=== PATIENT | female | born 1960 | race Caucasian/White ===

== ENCOUNTER 2023-01-18 13:47 | Outpatient (OUT) | payer OTHER, SELFPAY ==
--- NOTE | 2023-01-18 14:06 | CT_ITS ---
[address] [address] Patient Name: MALCOLM RECIO MRN: [id number] date: 1960 Sex: F Assigned Patient Location: LAB Current Patient Location: LAB Accession/Order Number: [id number] Exam Date: 01/18/2023 14:20 Report Date: 01/18/2023 15:49 At the request of: HAFSA REZA Procedure: CT angio abdomen pelvis EXAMINATION: CT angio abdomen pelvis HISTORY: Aortic Aneurysm , Dissection Of Abdominal Aorta COMPARISON: CT abdomen pelvis 06/06/2022 TECHNIQUE: Axial, Coronal, and Sagittal CT images without and with IV contrast. Multi-planar/3-D imaging to optimize visualization of vascular anatomy. Dose reduction techniques were achieved by using automated exposure control and/or adjustment of mA and/or kV according to patient size and/or use of iterative reconstruction technique. FINDINGS: AORTA/VASCULAR: Dissection of the abdominal aorta beginning immediately inferior to the renal arteries and extending into the right common iliac artery terminating prior to its bifurcation. False lumen is approximately 50% of the overall diameter of the aorta with an accessory right renal artery and the inferior mesenteric artery arising from the false lumen. CELIAC ARTERY: Normal celiac vessels. SMA: Normal mesenteric vessels. RENAL ARTERIES: Normal primary renal arteries. A secondary right renal artery arises from the false lumen of a patent aortic dissection. LUNG BASES: No visible pulmonary or pleural disease. LIVER: No enlargement, atrophy, abnormal density, or significant focal lesion. BILIARY: Cholecystectomy. PANCREAS: No lesion, fluid collection, ductal dilatation, or atrophy. SPLEEN: No enlargement or focal lesion. ADRENALS: No mass or enlargement. KIDNEYS: No mass, obstruction, or calcification. BOWEL/MESENTERY: No visible mass, obstruction, or bowel wall thickening. RETROPERITONEUM: No mass or adenopathy. LYMPH NODES: No adenopathy. URINARY BLADDER: No visible focal wall thickening, lesion, or calculus. PELVIC ORGANS: No visible mass. Pelvic organs appropriate for patient age. ABDOMINAL WALL: No mass or hernia. BONES: No bony lesion or fracture. OTHER: Negative. CT/CT angio abdomen pelvis IMPRESSION: 1. Stable infrarenal aortic dissection with widely patent true and false lumens as detailed above; no appreciable change. Electronically authenticated by: BURT FIGUEROA Date: 01/18/2023 15:49
[2023-01-18 14:09] LABS: Estimated GFR (African America >60 (>=60); Estimated GFR (Non-African Ame 58 (>=60)
== END 2023-01-18 13:48 | disposition home or self-care (01) ==
LOC: LAB 13:47
PROVIDERS: PCP Internal Medicine
DX: I71.02 Dissection of abdominal aorta (principal); J44.9 Chronic obstructive pulmonary disease, unspecified; R06.89 Other abnormalities of breathing
CPT/HCPCS: 36415; 74174; 82565; Q9967

== ENCOUNTER 2023-06-27 12:28 | Outpatient (OUT) | payer OTHER, SELFPAY ==
[2023-06-27 12:52] LABS: Basophils Absolute Auto 0.1 10^3/uL (0.0-0.1); Basophils Percent Auto 0.6 % (0.2-2.0); Eosinophils Absolute Auto 0.8 10^3/uL (0.0-0.7); Hematocrit 51.4 % (36.0-48.0); Hemoglobin 15.3 g/dL (12.0-16.0); Immature Granulocytes Pct Auto 0.9 % (0.0-0.5); Lymphocytes Absolute Auto 1.7 10^3/uL (1.2-3.8); Lymphocytes Percent Auto 15.5 % (20.5-60.0); Mean Corpuscular HGB Conc 29.8 g/dL (29.9-35.2); Mean Corpuscular Hemoglobin 27.2 pg (26.7-34.0); Mean Corpuscular Volume 91.3 fL (81.0-99.0); Mean Platelet Volume 9.2 fL (9.5-13.5); Monocytes Absolute Auto 0.7 10^3/uL (0.3-0.8); Monocytes Percent Auto 6.6 % (1.7-12.0); Neutrophils Absolute Auto 7.5 10^3/uL (1.4-6.5); Neutrophils Percent Auto 69.4 % (43.0-75.0); Platelet Count 197 10^3/uL (150-450); Red Blood Count 5.63 10^6/uL (4.20-5.40); Red Cell Distribution Width 14.6 % (11.0-15.0); White Blood Count 10.8 10^3/uL (4.0-11.0)
--- NOTE | 2023-06-27 13:00 | RT_ITS ---
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 Findings were considered accurate and reproducible, with exception of DLCO which did not meet ATS standards. No bronchodilator was administered as the patient complained of chest pain during the procedure and the post-bronchodilator component was aborted. Spirometry: -FEV1/FVC: Normal @ 86% -FEV1: Moderately-severe reduction @ 51% -FVC: Very severely reduced @ 45% Lung volumes by plethysmography: -RV: Reduced @ 79% -TLC: Mildly reduced @ 72% Diffusion capacity: -DLCO: Normal @ 92% when corrected for Hb 15.3g/dL Flow-volume loop: -Very severe restrictive pattern Comparison from 11/06/2017 was nearly identical to this current study: -FEV1 51%, FVC 45%, RV 76%. TLC 74%, DLCO 94% Impressions: -Very severe restriction on spirometry, confirmed with mild restriction based on decreased TLC. Normal diffusion capacity. This pattern is consistent with restriction secondary to morbid obesity (stated BMI is 54.7). Clinical correlation required. Electronically Signed On 07-05-2023 7:56:13 EST by Manjinder Altman
[2023-06-27 13:44] LABS: Base Excess ABG 11.3 mmol/L (-2.0-2.0); HCO3 ABG 37.3 mmol/L (22.0-26.0); PO2 ABG 69.5 mmHg (80.0-100.0); pH ABG 7.325 (7.350-7.450)
[2023-06-27 13:45] LABS: Oxygen Saturation ABG 93.7 %
[2023-06-27 13:46] LABS: ABG PCO2 71.6 mmHg (35.0-45.0); Allen Test POSITIVE (POSITIVE); Liters per Minute 2; O2 Mode NC; Puncture Site LR
[2023-06-27] MEDS: ALBUTEROL SULFATE 2.5 MG/3 ML VIAL NEB IH (14:49)
[2023-07-03 01:06] LABS: Immunoglobulin E, Total 573 IU/mL (6-495)
== END 2023-06-27 12:29 | disposition home or self-care (01) ==
LOC: CARD 12:30
PROVIDERS: PCP Internal Medicine; Visit Provider Internal Medicine
DX: J96.11 Chronic respiratory failure with hypoxia (principal); J82.83 Eosinophilic asthma
CPT/HCPCS: 36415; 36600; 82785; 82805; 85025; 94060; 94726; 94729

== ENCOUNTER 2023-06-27 14:25 | Observation (INO) | payer OTHER, SELFPAY ==
[2023-06-27] VITALS (16 sets, daily range): BP systolic 106–147; BP diastolic 67–100; PULSE 65–106; RESP 15–23; TEMP 36.4–36.7; O2SAT 93–98; BMI 60.3; BMI 62.3
--- NOTE | 2023-06-27 14:37 | XR_ITS ---
The [address] [address] Patient Name: MALCOLM RECIO MRN: [id number] date: 1960 Sex: F Assigned Patient Location: ER Current Patient Location: ED.MAIN Accession/Order Number: [id number] Exam Date: 06/27/2023 14:47 Report Date: 06/27/2023 15:03 At the request of: JACOB MARTIN Procedure: XR chest 1V EXAM: XR chest 1V HISTORY: chest pain COMPARISON: 06/06/2022 TECHNIQUE: AP portable FINDINGS: LUNGS: Low lung volumes. No focal infiltrates VASCULATURE: No increased pulmonary vasculature. PLEURA: No pneumothorax, effusion, or pleural thickening. CARDIAC: No cardiomegaly or cardiac silhouette abnormality. MEDIASTINUM: No visible mass or adenopathy. BONES: No fracture or visible bone lesion. OTHER: Negative. XR/XR chest 1V IMPRESSION: Low volume exam, clear lungs Electronically authenticated by: CHRISTEN BAKER Date: 06/27/2023 15:03
--- NOTE | 2023-06-27 14:37 | ECG_ITS ---
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
[2023-06-27] MEDS: ONDANSETRON PF 4 MG/2 ML VIAL IV (14:58)
[2023-06-27] MEDS: MORPHINE SULFATE 4 MG/ML VIAL IV (14:58)
[2023-06-27] MEDS: ASPIRIN 81 MG TAB.CHEW 324 MG PO (14:58)
--- NOTE | 2023-06-27 15:22 | ED.CHESTPAI1 ---
HPI - Chest Pain General Chief Complaint: Chest Pain Stated Complaint: CHEST PAIN Time Seen by Provider: 06/27/23 14:32 Source: patient Mode of arrival: Wheelchair History of Present Illness HPI narrative: Patient was finishing up her pulmonary function tests when she developed intense pain across the anterior chest, rated 6/10. She had increased work of breathing to catch her breath, the RT reported. She denied any prior cardiac history - said she had catheterization but no blockage or stents. Patient's pain is now 4/10. No recent injury to the chest. No cough, fever or chills at home. She has COPD, DM, HTN and high cholesterol. She sees Dr Altman. Related Data Home Medications Medication Instructions Recorded Confirmed baclofen 10 mg tablet 10 mg PO Q8H PRN muscle spasm 06/27/23 06/27/23 budesonide 160 mcg-glycopyr 9 2 inh inhalation BID 06/27/23 06/27/23 mcg-formot 4.8 mcg/actuation HFA inhaler (Breztri Aerosphere) buspirone 30 mg tablet 30 mg PO BID 06/27/23 06/27/23 cariprazine 3 mg capsule (Vraylar) 3 mg PO QDAY 06/27/23 06/27/23 dapagliflozin propanediol 10 mg 10 mg PO QAM 06/27/23 06/27/23 tablet (Farxiga) diclofenac sodium 75 mg 75 mg PO Q12H 06/27/23 06/27/23 tablet,delayed release duloxetine 60 mg capsule,delayed 120 mg PO BEDTIME 06/27/23 06/27/23 release (Cymbalta) furosemide 40 mg tablet 40 mg PO BID 06/27/23 06/27/23 gabapentin 600 mg tablet 1,200 mg PO QPM 06/27/23 06/27/23 gabapentin 600 mg tablet 600 mg PO QAM 06/27/23 06/27/23 levothyroxine 112 mcg tablet 112 mcg PO DAILY 06/27/23 06/27/23 metoprolol tartrate 25 mg tablet 25 mg PO DAILY 06/27/23 06/27/23 omeprazole 20 mg-sodium 1 cap PO DAILY PRN acid reflux 06/27/23 06/27/23 bicarbonate 1.1 gram capsule (Zegerid OTC) rosuvastatin 5 mg tablet 5 mg PO .qhs 06/27/23 06/27/23 trazodone 100 mg tablet 200 mg PO BEDTIME 06/27/23 06/27/23 Allergies Allergy/AdvReac Type Severity Reaction Status Date / Time Penicillins AdvReac Intermediate Verified 06/27/23 14:38 Sulfa (Sulfonamide AdvReac Intermediate Verified 06/27/23 14:38 Antibiotics) boniva AdvReac Intermediate Uncoded 06/27/23 14:38 Exam Narrative Exam Narrative: Nurses notes and vital signs reviewed and patient is not hypoxic. afebrile General: Well-appearing and in no apparent distress. Skin: Warm, dry, no pallor noted. No rash. Eye: Pupils are equal, round and EOMI. No scleral icterus. Ears, Nose, Mouth, and Throat: Oral mucosa is moist Cardiovascular: Regular Rate and Rhythm without murmur, gallop or rub. Respiratory: No accessory muscle use or respiratory distress. Lungs are clear to auscultation, no wheezing, rales or rhonchi Chest Wall: no tenderness, crepitus or subcutaneous emphysema Back: No midline thoracic or lumbar vertebral tenderness. No CVA tenderness Musculoskeletal: normal ROM, no calf or popliteal tenderness, no lower extremity edema/swelling GI: Abdomen is soft, non-distended. Normal bowel sounds. No tenderness to palpation. No rebound, guarding, or rigidity noted. Neurological: A&O x4. No cranial nerve dysfunction observed. No truncal ataxia. Moves all extremities. Sensation intact. Psychiatric: Cooperative and interactive. Normal mood and affect. Constitutional Vital Signs, click to edit/add: Last Vital Signs Temp 98.1 F 06/27/23 14:38 Pulse 106 H 06/27/23 14:38 Resp 18 06/27/23 14:38 BP 131/100 H 06/27/23 17:00 Pulse Ox 96 06/27/23 15:04 O2 Del Method Nasal Cannula 06/27/23 15:04 O2 Flow Rate 2 06/27/23 15:04 Course Vital Signs Vital signs: Vital Signs Temperature 98.1 F 06/27/23 14:38 Pulse Rate 106 H 06/27/23 14:38 Respiratory Rate 18 06/27/23 14:38 Blood Pressure 106/82 06/27/23 14:38 Pulse Oximetry 95 06/27/23 14:38 Oxygen Delivery Method Room Air 06/27/23 14:38 Temperature 98.1 F 06/27/23 14:38 Pulse Rate 106 H 06/27/23 14:38 Respiratory Rate 18 06/27/23 14:38 Blood Pressure 131/100 H 06/27/23 17:00 Pulse Oximetry 96 06/27/23 15:04 Oxygen Delivery Method Nasal Cannula 06/27/23 15:04 Oxygen Delivery Flow Rate 2 06/27/23 15:04 MDM - Chest Pain MDM Narrative Medical decision making narrative: Patient was placed on cardiac rehab nurse and EKG obtained. Blood drawn and sent for evaluation. CXR obtained. Troponin negative x2. Unremarkable CBC and CMP. Negative CXR. HEART score is Call placed to the transmission and protection engineer physician to discuss admission. Dr Buck agreed to admit the patient to SDU, observation. Patient will be admitted to SDU for further evaluation of her chest pain Differential Diagnosis Differential diagnosis: Likely pneumothorax, unstable angina pectoris, atypical chest pain, st elevation myocardial infarction, costochondritis and chest pain Lab Data Attestation: I reviewed the patient's lab results. Labs: Lab Results 06/27/23 06/27/23 Range/Units 14:42 16:35 WBC 11.2 H (4.0-11.0) 10^3/uL RBC 5.53 H (4.20-5.40) 10^6/uL Hgb 15.1 (12.0-16.0) g/dL Hct 50.9 H (36.0-48.0) % MCV 92.0 (81.0-99.0) fL MCH 27.3 (26.7-34.0) pg MCHC 29.7 L (29.9-35.2) g/dL RDW 14.6 (11.0-15.0) % Plt Count 200 (150-450) 10^3/uL MPV 9.4 L (9.5-13.5) fL Neut % (Auto) 67.5 (43.0-75.0) % Lymph % (Auto) 18.4 L (20.5-60.0) % [place] % (Auto) 6.1 (1.7-12.0) % Eos % (Auto) 6.8 (0.9-7.0) % Baso % (Auto) 0.6 (0.2-2.0) % Neut # (Auto) 7.6 H (1.4-6.5) 10^3/uL Lymph # (Auto) 2.1 (1.2-3.8) 10^3/uL [place] # (Auto) 0.7 (0.3-0.8) 10^3/uL Eos # (Auto) 0.8 H (0.0-0.7) 10^3/uL Baso # (Auto) 0.1 (0.0-0.1) 10^3/uL Abs Immat Gran (auto) 0.07 H (0.00-0.03) 10^3/uL Imm/Tot Granulo (auto) 0.6 H (0.0-0.5) % Sodium 140 (136-145) mmol/L Potassium 3.7 (3.5-5.1) mmol/L Chloride 102 (98-107) mmol/L Carbon Dioxide 36.1 H (21.0-32.0) mmol/L Anion Gap 5.6 BUN 12.0 (7.0-18.0) mg/dL Creatinine 1.01 (0.55-1.02) mg/dL Est GFR ( Amer) >60 (>=60) Est GFR (Non-Af Amer) 56 L (>=60) BUN/Creatinine Ratio 11.9 Glucose 111 H (74-106) mg/dL Calcium 8.8 (8.5-10.1) mg/dL Troponin I High Sens 5.0 4.7 (4.0-51.3) pg/mL NT-Pro-B Natriuret Pep 63.0 (<=900.0) pg/mL Imaging Data Chest x-ray: Radiologist's impression: ITS Impressions Chest X-Ray 06/27/23 14:37 IMPRESSION: Low volume exam, clear lungs Electronically authenticated by: CHRISTEN BAKER Date: 06/27/2023 15:03 ECG Data Attestation: I personally reviewed and interpreted this ECG as follows: Interpretation: EKG interpretation: Emergency Department physician interpretation. Normal sinus rhythm at 64bpm. Normal axis, normal intervals and no ST segment elevation or depression. Heart Score History: Moderately Suspicious ECG: NS Repolarization Age: >45-<65 years Risk Factors: >3 Risk Factors/ HX of CAD:2 Troponin: <Normal Limit Total Heart Score Recommendations & Risks:: 5 Discharge Plan Discharge Chief Complaint: Chest Pain Clinical Impression: Chest pain Patient Disposition: Admitted as Observation Time of Disposition Decision: 17:39 Prescriptions / Home Meds: No Action baclofen 10 mg tablet 10 mg PO Q12H hydrocodone-acetaminophen 5-325 mg tablet 1 tab PO Q12H PRN (Reason: pain) lamotrigine 200 mg tablet 200 mg PO BEDTIME lamotrigine 25 mg tablet 25 mg PO BEDTIME trazodone 100 mg tablet 200 mg PO BEDTIME omeprazole 20 mg capsule,delayed release(DR/EC) 20 mg PO DAILY PRN (Reason: acid reflux) buspirone 30 mg tablet 30 mg PO BID furosemide 40 mg tablet 40 mg PO BID Tradjenta 5 mg tablet 5 mg PO QAM Vraylar 4.5 mg capsule 4.5 mg PO BEDTIME duloxetine [Cymbalta] 60 mg capsule,delayed release(DR/EC) 120 mg PO BEDTIME metoprolol tartrate 25 mg tablet 25 mg PO DAILY levothyroxine 112 mcg tablet 112 mcg PO DAILY Farxiga 10 mg tablet 10 mg PO QAM Januvia 100 mg tablet 100 mg PO DAILY hydroxyzine pamoate 50 mg capsule 50 mg PO BID PRN (Reason: anxiety) omeprazole-sodium bicarbonate [Zegerid OTC] 20-1.1 mg-gram capsule 1 cap PO DAILY PRN (Reason: acid reflux) gabapentin 600 mg tablet 600 mg PO .COMPLEX Rx Instructions: 600 mg orally 3 times daily, 1 in morning, 2 at night; diclofenac sodium 75 mg tablet,delayed release (DR/EC) 75 mg PO Q12H albuterol sulfate 90 mcg/actuation HFA aerosol inhaler 2 puff INHALATION Q4H PRN (Reason: shortness of breath or wheezing) Referrals: Manjinder Altman DO [Primary Care Provider] - 1 week
[2023-06-27 15:35] LABS: Basophils Absolute Auto 0.1 10^3/uL (0.0-0.1); Basophils Percent Auto 0.6 % (0.2-2.0); Eosinophils Absolute Auto 0.8 10^3/uL (0.0-0.7); Eosinophils Percent Auto 6.8 % (0.9-7.0); Hematocrit 50.9 % (36.0-48.0); Hemoglobin 15.1 g/dL (12.0-16.0); Immature Granulocytes Abs Auto 0.07 10^3/uL (0.00-0.03); Immature Granulocytes Pct Auto 0.6 % (0.0-0.5); Lymphocytes Absolute Auto 2.1 10^3/uL (1.2-3.8); Lymphocytes Percent Auto 18.4 % (20.5-60.0); Mean Corpuscular HGB Conc 29.7 g/dL (29.9-35.2); Mean Corpuscular Hemoglobin 27.3 pg (26.7-34.0); Mean Platelet Volume 9.4 fL (9.5-13.5); Monocytes Absolute Auto 0.7 10^3/uL (0.3-0.8); Monocytes Percent Auto 6.1 % (1.7-12.0); Neutrophils Absolute Auto 7.6 10^3/uL (1.4-6.5); Neutrophils Percent Auto 67.5 % (43.0-75.0); Platelet Count 200 10^3/uL (150-450); Red Blood Count 5.53 10^6/uL (4.20-5.40); Red Cell Distribution Width 14.6 % (11.0-15.0); White Blood Count 11.2 10^3/uL (4.0-11.0)
[2023-06-27 16:04] LABS: Anion Gap 5.6; BUN Creatinine Ratio 11.9; Calcium 8.8 mg/dL (8.5-10.1); Carbon Dioxide 36.1 mmol/L (21.0-32.0); Chloride 102 mmol/L (98-107); Estimated GFR (African America >60 (>=60); Estimated GFR (Non-African Ame 56 (>=60); Glucose 111 mg/dL (74-106); Potassium 3.7 mmol/L (3.5-5.1); Sodium 140 mmol/L (136-145)
[2023-06-27 17:08] LABS: Troponin I High Sensitivity 4.7 pg/mL (4.0-51.3)
--- NOTE | 2023-06-27 18:30 | ECG_ITS ---
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
--- NOTE | 2023-06-27 20:21 | RESP.RT ---
decreased to 2L nasal cannula
[2023-06-27] MEDS: ENOXAPARIN SODIUM 40 MG/0.4 ML SYRINGE SUBQ (21:09)
[2023-06-27] MEDS: FAMOTIDINE/PF 20 MG/2 ML VIAL IV (21:09)
[2023-06-28] VITALS (15 sets, daily range): BP systolic 103–133; BP diastolic 56–85; PULSE 65–105; RESP 14–18; TEMP 36.9–37.5; O2SAT 90–96
[2023-06-28] MEDS: ACETAMINOPHEN 325 MG TABLET 650 MG PO ×3 (02:03→16:22)
[2023-06-28 04:36] LABS: Basophils Absolute Auto 0.1 10^3/uL (0.0-0.1); Basophils Percent Auto 0.6 % (0.2-2.0); Eosinophils Absolute Auto 0.6 10^3/uL (0.0-0.7); Eosinophils Percent Auto 5.4 % (0.9-7.0); Hematocrit 49.4 % (36.0-48.0); Hemoglobin 14.6 g/dL (12.0-16.0); Immature Granulocytes Abs Auto 0.09 10^3/uL (0.00-0.03); Immature Granulocytes Pct Auto 0.8 % (0.0-0.5); Lymphocytes Absolute Auto 1.4 10^3/uL (1.2-3.8); Lymphocytes Percent Auto 11.9 % (20.5-60.0); Mean Corpuscular HGB Conc 29.6 g/dL (29.9-35.2); Mean Corpuscular Hemoglobin 27.7 pg (26.7-34.0); Mean Corpuscular Volume 93.7 fL (81.0-99.0); Monocytes Absolute Auto 0.8 10^3/uL (0.3-0.8); Monocytes Percent Auto 6.5 % (1.7-12.0); Neutrophils Absolute Auto 8.9 10^3/uL (1.4-6.5); Neutrophils Percent Auto 74.8 % (43.0-75.0); Platelet Count 183 10^3/uL (150-450); Red Blood Count 5.27 10^6/uL (4.20-5.40); Red Cell Distribution Width 14.8 % (11.0-15.0); White Blood Count 11.9 10^3/uL (4.0-11.0)
[2023-06-28 05:02] LABS: INR 0.96; Prothrombin Time 10.2 sec (9.0-11.6)
[2023-06-28 05:08] LABS: Alanine Aminotransferase 10 U/L (14-59); Albumin Globulin Ratio 0.8; Albumin Level 3.1 g/dL (3.4-5.0); Alkaline Phosphatase 97 U/L (46-116); Anion Gap 2.8; Aspartate Amino Transferase 15 U/L (15-37); BUN Creatinine Ratio 12.5; Bilirubin Total 0.5 mg/dL (0.2-1.0); Calcium 8.9 mg/dL (8.5-10.1); Carbon Dioxide 36.2 mmol/L (21.0-32.0); Chloride 101 mmol/L (98-107); Estimated GFR (African America >60 (>=60); Estimated GFR (Non-African Ame >60 (>=60); Glucose 179 mg/dL (74-106); Sodium 136 mmol/L (136-145); Total Protein 7.1 g/dL (6.4-8.2); Troponin I High Sensitivity <4.0 pg/mL (4.0-51.3)
[2023-06-28] MEDS: FAMOTIDINE/PF 20 MG/2 ML VIAL IV (08:34)
[2023-06-28] MEDS: ASPIRIN 81 MG TAB.CHEW PO (08:34)
--- NOTE | 2023-06-28 08:51 | CA_ITS ---
Patient Name: MALCOLM RECIO MR#: [id number] : 1960 Exam Date: 06/28/2023 Ordering Doctor: LUCA KELLER ECHOCARDIOGRAM REPORT PROCEDURE: CA ECHO DOPPLER COMPLETE INDICATIONS: chest pain, diabetes, hypertension COMPARISON: None. DESCRIPTION: COMPLETE ECHOCARDIOGRAM Real-time transthoracic echocardiography with 2D, M-mode, spectral and color flow Doppler performed. QUALITY: Technical quality was adequate. 49 , 308#, BSA 2.22 m2 LEFT VENTRICLE: Normal chamber size. Normal left ventricular wall thickness. Normal systolic function. LV EF: Normal left ventricular ejection fraction, (55-60%). DIASTOLIC: Diastolic function is indeterminate. ATRIAL SEPTUM: LEFT ATRIUM: Normal chamber size. RIGHT ATRIUM: Normal chamber size. RIGHT VENTRICLE: Normal chamber size. Normal right ventricular systolic function. TRICUSPID VALVE: Normal mobility and thickness. No stenosis with trivial regurgitation. Doppler studies reveal moderately (45-60) elevated right sided pressures. RVSP 51 mmHg MITRAL VALVE: Normal mobility and thickness. No evidence of mitral valve stenosis. There is no mitral annular calcification. No mitral regurgitation. AORTIC VALVE: Normal trileaflet appearance. No visible sclerosis. Normal leaflet mobility. No evidence of aortic valve stenosis. No aortic regurgitation. AORTIC ROOT: Normal diameter and appearance. PULMONIC VALVE: Not well visualized. No stenosis. No regurgitation. PERICARDIUM: No evidence of pericardial effusion. IVC: IVC is normal in size but does not fully collapse. PLEURA: CONCLUSION: 1. Normal ventricular systolic function. LVEF is 55 to 60%. 2. No significant valvular dysfunction. 3. Moderately elevated right-sided pressures. RVSP is 51 mmHg. 4. No pericardial effusion. Adult Echocardiography Procedure Report Left Ventricle LVEDD (3.7 - 5.6 cm): 4.94 cm LVESD (2.2 - 4.0 cm): 3.61 cm LVIVS thickness (0.6 - 1.2 cm): 8.09 mm LVPW thickness (0.5 - 1.0 cm): 9.83 mm LVOT Max Gradient: 6 mm[Hg] Peak Velocity (LVOT): 123.00 cm/s Mean Velocity (LVOT): 78.30 cm/s LVOT Diameter 2.10 cm Left Ventricular Ejection Fraction: 55-60 % Left Atrium LA Volume Index (2D A2C): 69088 mm3 Left Atrium Systolic Dimension: 3.50 cm Mitral Valve MV E to A Ratio: 0.90 Mitral Valve A-Wave Peak Velocity: 99.70 cm/s Mitral Valve E-Wave Peak Velocity: 85.40 cm/s Cardiovascular Orifice Area: 3.55 cm2 Right Ventricle Aorta AO Root Diam: 3.40 cm Aortic Valve AoV Area (Peak Jaspal): 2.45 cm2 AoV Area (VTI): 2.72 cm2 Peak Velocity(Antegrade Flow): 174.00 cm/s Peak Gradient(Antegrade Flow): 12 mm[Hg] Mean Velocity(Antegrade Flow): 125.00 cm/s Mean Gradient(Antegrade Flow): 7 mm[Hg] Velocity Time Integral: 34.70 cm Tricuspid Valve Peak Velocity (Regurgitant Flow): 328.00 cm/s Peak Velocity: 44.90 cm/s Pulmonic Valve Peak Velocity: 134.00 cm/s, 138.00 cm/s Peak Gradient: 7 mm[Hg] Right Atrium Dictated by: Darrel Nunez M.D. on 06/28/2023 at 17:20 Approved by: Darrel Nunez M.D. on 06/28/2023 at 17:23
[2023-06-28 09:17] LABS: Chol HDL Ratio 2.7; Cholesterol 111 mg/dL (<=200); HDL Cholesterol 41 mg/dL (40-60); Triglycerides 157 mg/dL (<=150); VLDL CHOLESTEROL 31.4 mg/dL
[2023-06-28] MEDS: METOPROLOL TARTRATE 25 MG TABLET PO (10:07)
[2023-06-28] MEDS: CANAGLIFLOZIN 100 MG TABLET 300 MG PO (10:08)
[2023-06-28] MEDS: BUSPIRONE HCL 15 MG TABLET 30 MG PO (10:08)
[2023-06-28] MEDS: DICLOFENAC SODIUM 25 MG TABLET.DR 75 MG PO (10:08)
[2023-06-28] MEDS: FUROSEMIDE 40 MG TABLET PO (10:08)
[2023-06-28] MEDS: ONDANSETRON PF 4 MG/2 ML VIAL IV (10:24)
[2023-06-28 11:17] LABS: Estimated Average Glucose 157 mg/dL; Glycohemoglobin A1C 7.1 % (4.5-6.2)
[2023-06-28 11:49] LABS: D Dimer 0.84 mg/L FEU (<=0.59)
[2023-06-28 12:03] LABS: Glucometer 153 mg/dL (74-106)
--- NOTE | 2023-06-28 13:24 | CM.NOTE ---
Rounds made with Dr. Buck, discussed plan of care with pt. Pt will have echo done today and cardiology consult. PT and OT also will evaluate pt today for discharge planning.
--- NOTE | 2023-06-28 13:27 | CT_ITS ---
The [address] [address] Patient Name: MALCOLM ERCIO MRN: [id number] date: 1960 Sex: F Assigned Patient Location: ICU Current Patient Location: ICU Accession/Order Number: [id number] Exam Date: 06/28/2023 14:35 Report Date: 06/28/2023 15:44 At the request of: LUCA KELLER Procedure: CT angio abdomen pelvis EXAM: CT angio chest, CT angio abdomen pelvis HISTORY: Pleuritic CP, r/o PE (Hx of DVT) COMPARISON: CTA from 01/18/2023. TECHNIQUE: CT angio chest, CT angio abdomen pelvis FINDINGS: VASCULATURE: CORONARY ARTERIES: There are no atherosclerotic calcifications of the [place] coronary arteries. PULMONARY ARTERIES: No central pulmonary embolus. Normal size. ASCENDING THORACIC AORTA: No significant abnormality. AORTIC ARCH: No significant abnormality. Four-vessel aortic arch. ARCH VESSELS: No significant abnormality. DESCENDING THORACIC AORTA: No significant abnormality. ABDOMINAL AORTA: Demonstration of the known dissection of the infrarenal abdominal aorta with extension into the right common iliac artery. Dilatation of the infrarenal abdominal Abdominal aorta up to 2.8 cm (image 96 of series 4). CELIAC AXIS: No significant abnormality. SMA: No significant abnormality. RIGHT RENAL: No significant abnormality. LEFT RENAL: No significant abnormality. ABBEY: Arises from the false lumen but is opacified. RIGHT ILIAC / PROXIMAL FEMORAL ARTERIES: The dissection flap extends into the right common iliac artery but terminates prior to its bifurcation. No significant abnormality of the right external and internal iliac arteries. Potential small dissection flap of the proximal right superficial femoral artery, though this may alternatively be artifactual (images 83 and 84 of series 4). LEFT ILIAC / PROXIMAL FEMORAL ARTERIES: No significant abnormality. Perfused by the true lumen. LOWER NECK: Normal. CHEST: LUNGS / AIRWAYS / PLEURA: Normal. HEART / OTHER VESSELS: No significant abnormality. MEDIASTINUM / ESOPHAGUS: Normal. LYMPH NODES: None enlarged. CHEST WALL: No significant abnormality. ABDOMEN and PELVIS: LIVER: Suspected hepatic steatosis, though contrast timing limits evaluation. BILIARY TRACT: Normal. GALLBLADDER: Absent. PANCREAS: Normal. SPLEEN: Normal. ADRENALS: Normal. KIDNEYS: Normal. LYMPH NODES: None enlarged. STOMACH / SMALL BOWEL: Fecalization of the distal small bowel. COLON / APPENDIX: No abnormality. The appendix is normal. PERITONEUM / MESENTERY: Normal. RETROPERITONEUM: Normal. OTHER VESSELS: No significant abnormality. URINARY BLADDER: Normal. REPRODUCTIVE ORGANS: No abnormality. BODY WALL: No significant abnormality. Changes from soft tissue injection in the anterior left lower abdominal wall. MUSCULOSKELETAL: No acute abnormality. Degenerative disc height loss at L5-S1 CT/CT angio abdomen pelvis IMPRESSION: 1. No new angiographic abnormality of the chest, abdomen, or pelvis. Stable dissection of the infrarenal abdominal aorta that extends into the right common iliac artery, with resultant aneurysmal dilatation, similar to the prior exam. The true and false lumens are patent. Additional angiographic findings as above. 2. Other findings as above. Electronically authenticated by: TYLER PUGH Date: 06/28/2023 15:44
--- NOTE | 2023-06-28 13:27 | CT_ITS ---
The [address] [address] Patient Name: MALCOLM RECIO MRN: [id number] date: 1960 Sex: F Assigned Patient Location: ICU Current Patient Location: ICU Accession/Order Number: [id number] Exam Date: 06/28/2023 14:35 Report Date: 06/28/2023 15:44 At the request of: LUCA KELLER Procedure: CT angio chest EXAM: CT angio chest, CT angio abdomen pelvis HISTORY: Pleuritic CP, r/o PE (Hx of DVT) COMPARISON: CTA from 01/18/2023. TECHNIQUE: CT angio chest, CT angio abdomen pelvis FINDINGS: VASCULATURE: CORONARY ARTERIES: There are no atherosclerotic calcifications of the [place] coronary arteries. PULMONARY ARTERIES: No central pulmonary embolus. Normal size. ASCENDING THORACIC AORTA: No significant abnormality. AORTIC ARCH: No significant abnormality. Four-vessel aortic arch. ARCH VESSELS: No significant abnormality. DESCENDING THORACIC AORTA: No significant abnormality. ABDOMINAL AORTA: Demonstration of the known dissection of the infrarenal abdominal aorta with extension into the right common iliac artery. Dilatation of the infrarenal abdominal Abdominal aorta up to 2.8 cm (image 96 of series 4). CELIAC AXIS: No significant abnormality. SMA: No significant abnormality. RIGHT RENAL: No significant abnormality. LEFT RENAL: No significant abnormality. ABBEY: Arises from the false lumen but is opacified. RIGHT ILIAC / PROXIMAL FEMORAL ARTERIES: The dissection flap extends into the right common iliac artery but terminates prior to its bifurcation. No significant abnormality of the right external and internal iliac arteries. Potential small dissection flap of the proximal right superficial femoral artery, though this may alternatively be artifactual (images 83 and 84 of series 4). LEFT ILIAC / PROXIMAL FEMORAL ARTERIES: No significant abnormality. Perfused by the true lumen. LOWER NECK: Normal. CHEST: LUNGS / AIRWAYS / PLEURA: Normal. HEART / OTHER VESSELS: No significant abnormality. MEDIASTINUM / ESOPHAGUS: Normal. LYMPH NODES: None enlarged. CHEST WALL: No significant abnormality. ABDOMEN and PELVIS: LIVER: Suspected hepatic steatosis, though contrast timing limits evaluation. BILIARY TRACT: Normal. GALLBLADDER: Absent. PANCREAS: Normal. SPLEEN: Normal. ADRENALS: Normal. KIDNEYS: Normal. LYMPH NODES: None enlarged. STOMACH / SMALL BOWEL: Fecalization of the distal small bowel. COLON / APPENDIX: No abnormality. The appendix is normal. PERITONEUM / MESENTERY: Normal. RETROPERITONEUM: Normal. OTHER VESSELS: No significant abnormality. URINARY BLADDER: Normal. REPRODUCTIVE ORGANS: No abnormality. BODY WALL: No significant abnormality. Changes from soft tissue injection in the anterior left lower abdominal wall. MUSCULOSKELETAL: No acute abnormality. Degenerative disc height loss at L5-S1 CT/CT angio chest IMPRESSION: 1. No new angiographic abnormality of the chest, abdomen, or pelvis. Stable dissection of the infrarenal abdominal aorta that extends into the right common iliac artery, with resultant aneurysmal dilatation, similar to the prior exam. The true and false lumens are patent. Additional angiographic findings as above. 2. Other findings as above. Electronically authenticated by: TYLER PUGH Date: 06/28/2023 15:44
--- NOTE | 2023-06-28 13:56 | P.CN_ITS ---
<Statement entered by KI LAW - 06/30/23 16:40> This documentation has been reviewed and approved. Consult Note: HPI Data of Consult Consult date: 06/28/23 Requesting Physician: Stephenie Easton NP Primary Care Provider: Manjinder Altman DO Consult Narrative Reason for consult: Chest pain Narrative: Pleasant 63 yo female currently in ICU for chest pain. Pt reports that she was finishing up her pulmonary function tests when she developed intense pain across the anterior chest, rated 6/10. She had increased work of breathing to catch her breath, the RT reported. She denied any prior cardiac history - Cath 2010 with normal CORS. Patient's pain is now 4/10. No recent injury to the chest. No cough, fever or chills at home. Known PMH for: COPD on O2 at home, DM, HTN and high cholesterol Currently pt denied any chest pain since admit to ICU. Currently she is up sitting up in chair and eating lunch without distress. Remains on 2-3 L of O2 which is her typical at home. No concerning arrythmias on tele review. Pt admits that she has had recurrent angina for many years and usually resolves with taking a ASA. cc:: CC: Stephenie Easton NP Review of Systems ROS0 Status of ROS 10 or more systems reviewed and unremark able except as noted in history and below Constitutional Denies: fever or chills PFSH PFSH Social History Gender Identity: female Meds Home Medications and Allergies Home Medications Medication Instructions Recorded Confirmed Type baclofen 10 mg tablet 10 mg PO Q8H PRN muscle spasm 06/27/23 06/27/23 History budesonide 160 mcg-glycopyr 9 2 inh inhalation BID 06/27/23 06/27/23 History mcg-formot 4.8 mcg/actuation HFA inhaler (Breztri Aerosphere) buspirone 30 mg tablet 30 mg PO BID 06/27/23 06/27/23 History cariprazine 3 mg capsule (Vraylar) 3 mg PO QDAY 06/27/23 06/27/23 History dapagliflozin propanediol 10 mg 10 mg PO QAM 06/27/23 06/27/23 History tablet (Farxiga) diclofenac sodium 75 mg 75 mg PO Q12H 06/27/23 06/27/23 History tablet,delayed release duloxetine 60 mg capsule,delayed 120 mg PO BEDTIME 06/27/23 06/27/23 History release (Cymbalta) furosemide 40 mg tablet 40 mg PO BID 06/27/23 06/27/23 History gabapentin 600 mg tablet 1,200 mg PO QPM 06/27/23 06/27/23 History gabapentin 600 mg tablet 600 mg PO QAM 06/27/23 06/27/23 History levothyroxine 112 mcg tablet 112 mcg PO DAILY 06/27/23 06/27/23 History omeprazole 20 mg-sodium 1 cap PO DAILY PRN acid reflux 06/27/23 06/27/23 History bicarbonate 1.1 gram capsule (Zegerid OTC) rosuvastatin 5 mg tablet 5 mg PO .qhs 06/27/23 06/27/23 History trazodone 100 mg tablet 200 mg PO BEDTIME 06/27/23 06/27/23 History metoprolol tartrate 25 mg tablet 25 mg PO BID 06/28/23 06/28/23 History Allergies Allergy/AdvReac Type Severity Reaction Status Date / Time Penicillins AdvReac Intermediate Verified 06/27/23 14:38 Sulfa (Sulfonamide AdvReac Intermediate Verified 06/27/23 14:38 Antibiotics) boniva AdvReac Intermediate Uncoded 06/27/23 14:38 Exam Constitutional Vital Signs, click to edit/add: Last Vital Signs Temp 98.5 F 06/28/23 12:48 Pulse 70 06/28/23 12:48 Resp 18 06/28/23 12:48 BP 103/56 06/28/23 12:48 Pulse Ox 94 L 06/28/23 12:48 O2 Del Method Nasal Cannula 06/28/23 12:48 O2 Flow Rate 2 06/28/23 12:48 Common normals: no apparent distress and oriented x3 General appearance: cooperative, comfortable and well kempt Nutritional appearance: obese Respiratory Common normals: normal respiratory effort, no use of accessory muscles and clear to auscultation bilaterally Auscultation: clear to auscultation bilaterally Cardio Common normals: no JVD, regular rate and regular rhythm Heart sounds: S1 normal and S2 normal; no click, no gallops, no murmurs and no rubs Peripheral pulses: radial pulses present, posterior tibial pulses present and dorsalis pedis pulses present Extremity Common normals: normal to inspection, normal capillary refill and no clubbing, cyanosis or edema Neuro Common normals: oriented x3, CN's II-XII intact bilaterally and moves all extremities Psych Common normals: mental status grossly normal, thought process normal, cooperative, affect normal and speech normal Results Labs Labs: Short CBC 06/27/23 06/28/23 Range/Units 14:42 04:25 WBC 11.2 H 11.9 H (4.0-11.0) 10^3/uL Hgb 15.1 14.6 (12.0-16.0) g/dL Hct 50.9 H 49.4 H (36.0-48.0) % Plt Count 200 183 (150-450) 10^3/uL BMP 06/27/23 06/28/23 14:42 04:25 Sodium 140 136 Potassium 3.7 4.0 Chloride 102 101 Carbon Dioxide 36.1 H 36.2 H BUN 12.0 11.0 Creatinine 1.01 0.88 Glucose 111 H 179 H Calcium 8.8 8.9 Liver Function 06/28/23 Range/Units 04:25 Total Bilirubin 0.5 (0.2-1.0) mg/dL AST 15 (15-37) U/L ALT 10 L (14-59) U/L Alkaline Phosphatase 97 (46-116) U/L Albumin 3.1 L (3.4-5.0) g/dL HS Troponin negative x 3- Collected Result Units Range Specimen 06/28/23 04:25 <4.0?L pg/mL 4.0-51.3 06/27/23 16:35 4.7 pg/mL 4.0-51.3 06/27/23 14:42 5.0 pg/mL 4.0-51.3 A1C elevated- 7.1 BNP normal 65 Chol 111, Trig 157, HDL 41, LDL 39- well controlled ECG ECG interpretation date: 06/28/23 Interpretation: Interpretive Statements 1120 Sinus tachycardia 8102 Low QRS voltage in chest leads 9140 abnormal rhythm ECG No previous ECG available for comparison Dictated By: Manjinder Altman D.O. Signed By: DD/ [id number] Imaging Chest x-ray: Attestation: I have reviewed the pertinent imaging results. Radiologist's impression: FINDINGS: LUNGS: Low lung volumes. No focal infiltrates VASCULATURE: No increased pulmonary vasculature. PLEURA: No pneumothorax, effusion, or pleural thickening. CARDIAC: No cardiomegaly or cardiac silhouette abnormality. MEDIASTINUM: No visible mass or adenopathy. BONES: No fracture or visible bone lesion. OTHER: Negative. XR/XR chest 1V IMPRESSION: Low volume exam, clear lungs Electronically authenticated by: CHRISTEN BAKER Date: 06/27/2023 15:03 Assessment and Plan Assessment and Plan (1) Stable angina pectoris: Assessment and Plan: Currently no recurrent angina/chest pain. Negative troponin levels, EKG without acute changes. Pt had normal CORs on cath in 2010, very well controlled lipid levels with crestor 5 mg, and most likely chest pain was r/t exertion during PFT. - D/W pt that will have out pt lexiscan stress test to assess cardiac perfusion for recurrent stable angina. Echocardiogram was ordered by primary service and this will assess cardiac function, EF, valvular function and rt sided pressures. - Will f/u outpt after stress test completed, probably in about 1 month, review testing and re-evaulate for any further angina (2) COPD (chronic obstructive pulmonary disease): Assessment and Plan: managed by primary service (3) Obesity: Assessment and Plan: recommended weight loss Qualifiers: Obesity type: due to excess calories (4) Essential hypertension: Assessment and Plan: HTN currently well controlled 103/56 continue mrtoprolol and lasix (5) Mixed hyperlipidemia: Assessment and Plan: continur crestor 5 mg daily, liver function normal and lipids well controlled (6) H/O cardiac catheterization: Assessment and Plan: normal CORS 2010 Plan as above Becky Dominguez [facility] Cardiology
--- NOTE | 2023-06-28 14:16 | P.HP_ITS ---
<Statement entered by Amy Buck, - 06/28/23 17:18> This documentation has been reviewed and approved. I also seen and evaluated patient, reviewed chart, labs and radiology. I agree with the assessment and plan and discharge. H&P: HPI History of Present Illness Chief complaint: CHEST PAIN Narrative: 06/28/23 1050 This is a 63-year-old female patient with a complicated past medical history as outlined below including COPD/Asthma with chronic respiratory failure on 2-3L O2 at all times, morbid obesity, rheumatoid arthritis, bipolar disorder, fibromyalgia, DM2 and osteoporosis; who presented to the ED yesterday afternoon c/o chest pain. She reports onset of intense chest pressure after completing the resting portion of a PFT (the exercise portion was deferred). She describes the pain a pressure or heaviness in the substernal area. It did not radiate anywhere and was worse with coughing. She denies any recent increased coughing but has a chronic cough. She was sent to the ED from the outpatient cardiopulmonary testing area for further evaluation. Work up in the ED was relatively benign with mild tachycardia (107) on arrival that resolved, and chest pain that resolved after morphine administration. CXR and EKG were unremarkable. HsTnI and BNPs were unremarkable as well. She was admitted to the hospitalist service in observation for further cardiac monitoring and work up. At the time of my exam the pt is sitting up in a bedside chair. She reports her chest pain is mostly resolved but recurs at times with cough and deep inspiration. She notes a previous cardiac work up in [place] about 10 yrs ago that was benign. She also reports a history of DVT 10 yrs ago. She has a known AAA that is followed outpatient by Dr. Shields. Her next CTA abdomen is due in Jun or July. The pt's chest pain is clearly reproducible on exam with chest wall palpation and with deep inspiration and is thus likely pleuritic or MSK in nature. Her serial HsTnI remain negative. She is stable on her usual home O2 delivery without any respiratory distress. We will obtain a 2D echo today to assess for wall motion or valvular abnormalities. We will also obtain a d-dimer and if elevated obtain a CTA chest/abd/pelvis today, as well, to assess for PE or worsening aneurysm. A lipid panel will also be added. If all of that remains unremarkable she will likely be discharged later today. We will have her follow up with cardiology for an outpatient stress test in the near future for definitive evaluation of her chest pain. DISCHARGE: CTA chest/abd/pelvis unremarkable. 2D Echo obtained but official cardiology read still pending. Serial HsTnI remain negative and the pt is chest pain free except with coughing. She is being discharged home in stable condition. She should follow up as an outpatient with cardiology for a stress test. She should also follow up with her PCP in 3-5 days. No new prescriptions at discharge. Review of Systems ROS Status of ROS 10 or more systems reviewed and unremark able except as noted in history and below [facility] Medical History (Updated 06/28/23 @ 15:21 by Stephenie Easton NP) Osteoporosis ?M81.0 - Age-related osteoporosis without current pathological fracture (ICD- 10) Asthma ?J45.909 - Unspecified asthma, uncomplicated (ICD-10) Chronic respiratory failure with hypoxia, on home O2 therapy ?J96.11 - Chronic respiratory failure with hypoxia (ICD-10) ?Z99.81 - Dependence on supplemental oxygen (ICD-10) Hiatal hernia ?K44.9 - Diaphragmatic hernia without obstruction or gangrene (ICD-10) Degenerative disc disease, lumbar ?M51.36 - Other intervertebral disc degeneration, lumbar region (ICD-10) Bipolar disorder ?F31.9 - Bipolar disorder, unspecified (ICD-10) Fibromyalgia ?M79.7 - Fibromyalgia (ICD-10) Hypothyroidism ?E03.9 - Hypothyroidism, unspecified (ICD-10) Rheumatoid arthritis ?M06.9 - Rheumatoid arthritis, unspecified (ICD-10) DM2 (diabetes mellitus, type 2) ?E11.9 - Type 2 diabetes mellitus without complications (ICD-10) Mixed hyperlipidemia ?E78.2 - Mixed hyperlipidemia (ICD-10) Essential hypertension ?I10 - Essential (primary) hypertension (ICD-10) Obesity ?E66.9 - Obesity, unspecified (ICD-10) COPD (chronic obstructive pulmonary disease) ?J44.9 - Chronic obstructive pulmonary disease, unspecified (ICD-10) Stable angina pectoris ?I20.89 - Other forms of angina pectoris (ICD-10) Surgical History H/O cardiac catheterization ?Z98.890 - Other specified postprocedural states (ICD-10) Social History Gender Identity: female Meds Home Medications and Allergies Home Medications Medication Instructions Recorded Confirmed Type baclofen 10 mg tablet 10 mg PO Q8H PRN muscle spasm 06/27/23 06/27/23 History budesonide 160 mcg-glycopyr 9 2 inh inhalation BID 06/27/23 06/27/23 History mcg-formot 4.8 mcg/actuation HFA inhaler (Breztri Aerosphere) buspirone 30 mg tablet 30 mg PO BID 06/27/23 06/27/23 History cariprazine 3 mg capsule (Vraylar) 3 mg PO QDAY 06/27/23 06/27/23 History dapagliflozin propanediol 10 mg 10 mg PO QAM 06/27/23 06/27/23 History tablet (Farxiga) diclofenac sodium 75 mg 75 mg PO Q12H 06/27/23 06/27/23 History tablet,delayed release duloxetine 60 mg capsule,delayed 120 mg PO BEDTIME 06/27/23 06/27/23 History release (Cymbalta) furosemide 40 mg tablet 40 mg PO BID 06/27/23 06/27/23 History gabapentin 600 mg tablet 1,200 mg PO QPM 06/27/23 06/27/23 History gabapentin 600 mg tablet 600 mg PO QAM 06/27/23 06/27/23 History levothyroxine 112 mcg tablet 112 mcg PO DAILY 06/27/23 06/27/23 History omeprazole 20 mg-sodium 1 cap PO DAILY PRN acid reflux 06/27/23 06/27/23 History bicarbonate 1.1 gram capsule (Zegerid OTC) rosuvastatin 5 mg tablet 5 mg PO .qhs 06/27/23 06/27/23 History trazodone 100 mg tablet 200 mg PO BEDTIME 06/27/23 06/27/23 History metoprolol tartrate 25 mg tablet 25 mg PO BID 06/28/23 06/28/23 History Allergies Allergy/AdvReac Type Severity Reaction Status Date / Time Penicillins AdvReac Intermediate Verified 06/27/23 14:38 Sulfa (Sulfonamide AdvReac Intermediate Verified 06/27/23 14:38 Antibiotics) boniva AdvReac Intermediate Uncoded 06/27/23 14:38 Exam Constitutional Vital Signs, click to edit/add: Last Vital Signs Temp 98.5 F 06/28/23 12:48 Pulse 65 06/28/23 14:00 Resp 18 06/28/23 12:48 BP 103/56 06/28/23 12:48 Pulse Ox 94 L 06/28/23 12:48 O2 Del Method Nasal Cannula 06/28/23 12:48 O2 Flow Rate 2 06/28/23 12:48 Common normals: no apparent distress, oriented x3, alert and well nourished General appearance: cooperative Orientation/consciousness: Yes awake HENMT Common normals: normocephalic, head/scalp atraumatic, hearing grossly normal bilaterally, external nose normal and moist oral mucous membranes Eye Common normals: PERRL, EOMs intact bilaterally, conjunctivae normal and no scleral icterus Alignment: alignment normal Eyelid: eyelids normal Neck & C-Spine Common normals: full ROM, supple and no JVD Chest Common normals: inspection of chest normal Chest: symmetrical chest wall rise Respiratory Common normals: normal respiratory effort, no retractions and no use of accessory muscles Auscultation: wheezes (Faint EE) Cardio Common normals: no JVD, regular rate, regular rhythm, S1 normal heart sound, S2 normal heart sound, no gallops, no clicks, no murmurs, no rub and peripheral pulses 2+ throughout Heart sounds: other (Distant HT) GI Common normals: Normal to inspection, nondistended, normoactive bowel sounds present, soft to palpation, non-tender, no hepatosplenomegaly, no masses and no bruits Bladder/kidney exam: bladder normal to palpation Back & Pelvis Common normals: thoracic and lumbar spine normal to inspection Extremity Common normals: normal capillary refill General: normal exam except as noted and edema (Trace bilat insteps); no cyanosis Neuro Dax Coma Scale: GCS not evaluated Common normals: CN's II-XII intact bilaterally, moves all extremities, no focal motor deficits and no sensory deficits noted Speech: speech normal Psych Common normals: mental status grossly normal, thought process normal, affect normal and activity/motor behavior normal Results Labs Labs: Short CBC 06/27/23 06/28/23 Range/Units 14:42 04:25 WBC 11.2 H 11.9 H (4.0-11.0) 10^3/uL Hgb 15.1 14.6 (12.0-16.0) g/dL Hct 50.9 H 49.4 H (36.0-48.0) % Plt Count 200 183 (150-450) 10^3/uL BMP 06/27/23 06/28/23 14:42 04:25 Sodium 140 136 Potassium 3.7 4.0 Chloride 102 101 Carbon Dioxide 36.1 H 36.2 H BUN 12.0 11.0 Creatinine 1.01 0.88 Glucose 111 H 179 H Calcium 8.8 8.9 Liver Function 06/28/23 Range/Units 04:25 Total Bilirubin 0.5 (0.2-1.0) mg/dL AST 15 (15-37) U/L ALT 10 L (14-59) U/L Alkaline Phosphatase 97 (46-116) U/L Albumin 3.1 L (3.4-5.0) g/dL Pulse Oximetry Attestation: I have reviewed the pertinent pulse oximetry results. Assessment and Plan Assessment and Plan (1) Chest pain: Assessment and Plan: ACUTE * Adm observation * Atypical, reproducible chest pain * Serial HsTnI remain negative * BNP unremarkable * EKG & CXR unremarkable * Elevated triglycerides but otherwise unremarkable * 2D Echo today * Obtain D-dimer * if elevated obtain CTA chest/abdomen/pelvis * Likely d/c later today pending results of above Qualifiers: Chest pain type: chest pain on breathing Qualified Code(s): R07.1 - Chest pain on breathing (2) Essential hypertension: Assessment and Plan: CHRONIC * Continue home metoprolol (3) Mixed hyperlipidemia: Assessment and Plan: CHRONIC * Continue home statin - recently added to med profile 1 week ago (4) Asthma: Assessment and Plan: CHRONIC * Continue home inhalers (5) Chronic respiratory failure with hypoxia, on home O2 therapy: Assessment and Plan: CHRONIC * O2 sat remains stable on home 2L via NC (6) Bipolar disorder: Assessment and Plan: CHRONIC * Continue home Vraylar, gabapentin, and Cymbalta (7) Hypothyroidism: Assessment and Plan: CHRONIC * Continue home levothyroxine (8) DM2 (diabetes mellitus, type 2): Assessment and Plan: CHRONIC * Continue home Farxiga if available on formulary * ACHS glucometer checks * Med dose SSI for glucose correction * A1C this morning - 7.1
[2023-06-28] MEDS: GABAPENTIN 300 MG CAPSULE 600 MG PO (15:09)
--- NOTE | 2023-06-30 14:36 | CM.DCFOLLOWU ---
Person spoke with: patient How are you feeling? better, just tired How is your pain? no pain Did you understand your discharge instructions? yes Do you have any questions about your discharge instructions? no Were you given any prescriptions at discharge? no Were you able to get your prescriptions filled? n/a Do you understand how to take your medications as ordered? yes Do you have any questions about your follow up appointment and do you plan to keep your follow up appointment? No questions. I have to reschedule my cardiology appointment becasue I have a dentist appointment I have to go to on that day. I made an appointment with Dr. Rizo on 07/05 at 2pm. Is there anything else that you would like to discuss? no Questions/Comments/Concerns/Other: none
== END 2023-06-28 16:45 | disposition home or self-care (01) ==
LOC: ER 17:41 → ICU 18:08
PROVIDERS: Nurse Practitioner Acute Care; Admitting Provider Family Medicine; Emergency Provider Emergency Medicine; PCP Internal Medicine; Visit Provider Nurse Practitioner
DX: R07.1 Chest pain on breathing (principal); J96.11 Chronic respiratory failure with hypoxia; J82.83 Eosinophilic asthma; E66.01 Morbid (severe) obesity due to excess calories; M06.9 Rheumatoid arthritis, unspecified; F31.9 Bipolar disorder, unspecified; M79.7 Fibromyalgia; E78.2 Mixed hyperlipidemia; E11.9 Type 2 diabetes mellitus without complications; M81.0 Age-related osteoporosis without current pathological fracture; J44.9 Chronic obstructive pulmonary disease, unspecified; I71.40 Abdominal aortic aneurysm, without rupture, unspecified; E03.9 Hypothyroidism, unspecified; Z98.890 Other specified postprocedural states; Z99.81 Dependence on supplemental oxygen; Z79.899 Other long term (current) drug therapy; Z86.718 Personal history of other venous thrombosis and embolism; Z79.890 Hormone replacement therapy; Z68.44 Body mass index [BMI] 60.0-69.9, adult
CPT/HCPCS: 36415; 36600; 71045; 71275; 74174; 80048; 80053; 80061; 82785; 82805; 82948; 83036; 83880; 84484; 85025; 85378; 85610; 93005; 93306; 94060; 94726; 94729; 94761; 96372; 96374; 96375; 96376; 97161; 99285; G0378; J1650; J2270; J2405; Q9967

== ENCOUNTER 2023-07-18 19:55 | Outpatient (OUT) | payer OTHER, SELFPAY ==
--- OUTSIDE RECORDS SUMMARY | 2023-07-18 19:59 | XMS_ITS | CCD ---
Author Name Unknown Address [address] [facility] [address] [place] [id number] Organization [facility] Care Team Providers Care Review Coordinator Name Role Phone Unavailable Primary Care Provider Unavailabl e PROVIDER, UNKNOWN Attending Unavailable PROVIDER, UNKNOWN Admitting Unavailable HEMMER, DR ERIN Vail Attending Unavailable HEMMER, DR ERIN Vail Admitting Unavailable NEFCY, ANISH Consulting Unavailable FREDY, DR RUSSELL Primary Care Unavailable HEMMER, DR ERIN [place]ail Consulting Unavailable RIZO, DR RUSSELL Consulting Unavailable RIZO, DR RUSSELL Attending Unavailable RIZO, DR RUSSELL Admitting Unavailable FREDY, DR RUSSELL Primary Care Unavailable CHRISTEN BAKER Consulting Unavailable ESTRADA ., MR ATWOODEW Attending Unavailable ESTRADA ., MR TYLER Admitting Unavailable ZIEBER, DR BURT Marks Consulting Unavailable FREDY, DR RUSSELL Primary Care Unavailable ESTRADA ., MR SCOTT Consulting Unavailable LAKSHMIPATHY ., SIOMARA Consulting Rachael vailable LAKSHMIPATHY ., SIOMARA Attending Rachael vailable LEIGHSHMIPATHY ., SIOMARA Admitting Rachael vailable DR JER RIZO Primary Care Unavailable LAKSHMIPATHY ., NARENDVICTORIANOATH Attending Rachael vailable LAKSHMIPATHY ., NARENDRANATH Admitting Rachael vailable LAKSHMIPATHY ., SIOMARA Consulting Rachael vailable DR JER RIZO Primary Care Unavailable LAKSHMIPATHY ., SIOMARA Attending Rachael vailable LEIGHSHMIPATHY ., SIOMARA Admitting Rachael vailable DR JER RIZO Primary Care Unavailable FREDY, DR RUSSELL Primary Care Unavailable ZIEBER, DR BURT Marks Consulting Unavailable ELIEZER ., OMID Attending Unavailable ELIEZER ., OMID Admitting Unavailable NADERER, DR YANNICK Clancy Consulting Unavailable BRETT OSUNA Consulting Unavailable SAM ., WILLEM Consulting Unavailable CELESTE LUNA Consulting Unavailable SARAVIA, VINNY Consulting Unavailable EDISON, WILL Consulting Unavailable RENETTA, ANISH Consulting Unavailable ELIEZER ., OMID Consulting Unavailable SAMUEL, CHRISTEN Consulting Unavailable SEAN ., MR TYLER Attending Unavailable SEAN ., MR TYLER Admitting Unavailable DR JER RIZO Primary Care Unavailable SEAN ., MR SCOTT Consulting Unavailable LAKSHMIPATHY ., NARENDRANATH Attending Rachael vailable LAKSHMIPATHY ., NARENDRANATH Admitting Rachael vailable BRIA GUAJARDO Consulting Unavailable DR JER RIZO Primary Care Unavailable LAKSHMIPATHY ., NARENDRANATH Consulting Rachael vailable ERIN VANG Referring Unavailable Pratik Soria Attending Unavailab Pratik Dunlap Admitting Unavailab Jer Calvin Primary Care Unavailable Jer Rizo MD Primary Care Provider [phone] Jer Rizo MD Unavailable Allergies Allergy Classification Reported Allergen(s) Allergy Type Date of Onset Reaction(s) Facility (2 sources) cefdinir Drug Allergy 3 [facility] (1 source) Codeine Drug Allergy [facility] (2 sources) Ibandronate Drug Allergy 3 [facility] (2 sources) nabumetone Drug Allergy 3 [facility] (2 sources) Penicillins Drug allergy (disorder) 3 [facility] (2 sources) Sulfonamides (Antibiotic) Drug allergy (disorder) 3 [facility] (1 source) cefdinir Drug Allergy 3 [facility] Work Phone: (1 source) Ibandronate Drug All[facility] 3 [facility] (1 source) nabumetone Drug Allergy 3 [facility] (1 source) Penicillin G Drug Allergy 3 [facility] (1 source) Sulfanilamide Allergy to substance 3 [facility] Medications Current Medications Medication Drug Class(es) Dates Sig (Normalized) Sig (Original) acetaminophen 325 mg / HYDROcodone bitartrate 5 mg oral tablet (1 source) Opioid Agonist Start: 10-25-2023 take 1 tablet by mouth every six hours for pain HYDROcodone-acetam inophen (Unity) 5-325 MG tablet Indications: Cervical spondylosis Take 1 tablet by mouth every 6 (six) hours if needed for severe pain or moderate pain. 56 tablet 0 03/22/2023 Active albuterol 0.83 mg/ml inhalation solution (2 sources) beta2-Adrenergic Agonist Start: 03-22-2023 albuterol (2.5 MG/3ML) 0.083% nebulizer solution Indications: Severe persistent asthma without complication ([facility]) Take 3 mL (2.5 mg) by nebulization every 8 (eight) hours. 75 mL 5 03/22/2023 Active take 2 puff(s) by in halation every four hours for wheezing Ventolin HFA 108 (90 Base) MCG/ACT inhaler Inhale 2 puffs every 4 (four) hours if needed for wheezing or shortness of breath. 0 Active baclofen 10 mg oral tablet (1 source) gamma-Aminobutyric Acid-ergic Agonist Start: 03-22-2023 take 1 tablet by mouth three times daily as needed baclofen (Lioresal) 10 MG tablet Indications: Cervical spondylosis TAKE 1 TABLET BY MOUTH THREE TIMES A DAY NEEDED FOR 30 DAYS 270 tablet 1 03/22/2023 Active Blood Glucose Monitoring Suppl device (1 source) Start: 04-04-2023 Blood Glucose Monitoring Suppl device Indications: Type 2 diabetes mellitus with other specified complication, without long-term current use of insulin ([facility]) USE DIRECTED 100 strip 2 04/04/2023 Active 120 actuat budesonide 0.16 mg/actuat / formoterol fumarate 0.0048 mg/actuat / glycopyrrolate 0.009 mg/actuat metered dose inhaler (1 source) Corticosteroid, beta2-Adrenergic Agonist Start: 03-08-2023 take 2 puff(s) by inhalation in the morning Breztri Aerosphere 160-9-4.8 MCG/ACT aerosol Inhale 2 puffs in the morning and 2 puffs before bedtime. 0 03/08/2023 Active busPIRone hydrochloride 30 mg oral tablet (1 source) take 1 tablet by mouth in the morning busPIRone (Buspar) 30 MG tablet Take 1 tablet by mouth in the morning and 1 tablet before bedtime. 0 Active cariprazine 4.5 mg oral capsule (1 source) Atypical Antipsychotic take 1 capsule by mouth once daily Vraylar 4.5 MG capsule Take 1 capsule by mouth 1 (one) time each day. 0 Active dapagliflozin 10 mg oral tablet (1 source) Sodium-Glucose Cotransporter 2 Inhibitor take 1 tablet by mouth once daily Farxiga 10 MG Take 1 tablet by mouth 1 (one) time each day. 0 Active diclofenac sodium 75 mg delayed release oral tablet (1 source) Nonsteroidal Anti-inflammatory Drug Start: 11-23-2022 take 1 tablet by mouth in the morning diclofenac (Voltaren) 75 MG EC tablet Indications: Rheumatoid arthritis, unspecified (CMS/HCC) Take 1 tablet (75 mg) by mouth in the morning and 1 tablet (75 mg) before bedtime. Do not crush, chew, or split.. 200 tablet 3 11/23/2022 Active DULoxetine 60 mg delayed release oral capsule (1 source) Serotonin and Norepinephrine Reuptake Inhibitor take 2 capsules by mouth once daily Cymbalta [address] capsule Take 2 capsules by mouth 1 (one) time each day at the same time. 0 Active fluticasone propionate 0.05 mg/actuat metered dose nasal spray (1 source) Corticosteroid take 1 spray(s) nasal route in the morning fluticasone (Flonase) 50 MCG/ACT nasal spray Administer 1 spray into each nostril in the morning. 0 Active furosemide 40 mg oral tablet (1 source) Loop Diuretic take 1 tablet by mouth in the morning furosemide (Lasix) 40 MG tablet Take 1 tablet by mouth in the morning and 1 tablet before bedtime. 0 Active gabapentin 600 mg oral tablet (1 source) Anti-epileptic Agent Start: 11-04-2022 take 1 tablet by mouth in the morning, then take 1 tablet by mouth in the evening, then take 1 tablet by mouth at bedtime gabapentin (Neurontin) 600 MG tablet Indications: Type 2 diabetes mellitus with autonomic neuropathy, unspecified whether ad terminal makeup operator insulin use (CMS/HCC) Take 1 tablet (600 mg) by mouth in the morning and 1 tablet (600 mg) in the evening and 1 tablet (600 mg) before bedtime. 300 tablet 3 11/04/2022 Active lamoTRIgine 25 mg oral tablet (2 sources) Mood Stabilizer, Anti-epileptic Agent take 1 tablet by mouth at bedtime LaMICtal 200 MG tablet Take 1 tablet by mouth at bedtime. 0 Active take 1 tablet by mouth at bedtim e LaMICtal 25 MG tablet Take 1 tablet by mouth at bedtime. 0 Active levothyroxine sodium 0.112 mg oral tablet (1 source) l-Thyroxine Start: 11-23-2022 take 1 tablet by mouth once daily levothyroxine (Synthroid, Levoxyl) 112 MCG tablet Indications: Hypothyroidism, unspecified type (CMS/HCC) Take 1 tablet (112 mcg) by mouth 1 (one) time each day at the same time. 100 tablet 3 11/23/2022 Active linagliptin 5 mg oral tablet (1 source) Dipeptidyl Peptidase 4 Inhibitor take 1 tablet by mouth once daily Tradjenta 5 MG tablet Take 1 tablet by mouth 1 (one) time each day. 0 Active loratadine 10 mg oral tablet (1 source) take 1 tablet by mouth once daily loratadine (Claritin) 10 MG tablet Take 1 tablet by mouth 1 (one) time each day at the same time. 0 Active metoprolol tartrate 25 mg oral tablet (1 source) beta-Adrenergic Sher Start: 11-04-2022 take 1 tablet by mouth in the morning metoprolol tartrate (Lopressor) 25 MG tablet Indications: Essential hypertension, benign (CMS/HCC) Take 1 tablet (25 mg) by mouth in the morning and 1 tablet (25 mg) before bedtime. 200 tablet 3 11/04/2022 Active OXYGEN-HELIUM IN (1 source) Start: 01-21-2022 OXYGEN-HELIUM IN inhaled nasal continuous use 0 01/21/2022 Active traZODone hydrochloride 100 mg oral tablet (1 source) Serotonin Reuptake Inhibitor take 2 tablets by mouth at bedtime traZODone (Desyrel) 100 MG tablet Take 2 tablets by mouth at bedtime. 0 Active triamcinolone acetonide 5 mg/ml topical cream (1 source) Corticosteroid Start: 05-18-2023 triamcinolone (Kenalog) 0.5 % cream Indications: Venous insufficiency (chronic) (peripheral) APPLY 1 APPLICATION EXTERNALLY ONCE A DAY NEEDED 7 DAY(S) 30 g 2 05/18/2023 Active Problems Active Problems Problem Classification Problem Date Documented Date Episodic/Chronic Anxiety disorders (1 source) Anxiety disorder; Translations: [Anxiety disorder, unspecified] Onset: 06-08-2022 01-03-2023 Chronic Aortic; peripheral; and visceral artery aneurysms (2 sources) Dissection of abdominal aorta; Translations: [Dissection of aorta] Onset: 06-15-2022 01-02-2023 Chronic Asthma (3 sources) Unspecified asthma, uncomplicated; Translations: [Severe persistent asthma] Onset: 06-15-2022 Resolved: 03-22-2023 01-02-2023 Chronic Asthma (1 source) Asthma; Translations: [EOSINOPHILIC ASTHMA] Onset: 06-15-2022 Chronic obstructive pulmonary disease and bronchiectasis (1 source) Chronic obstructive lung disease; Translations: [Chronic obstructive pulmonary disease, unspecified] Onset: 01-02-2023 01-02-2023 Chronic Coronary atherosclerosis and other heart disease (2 sources) Atherosclerotic heart disease of telida coronary artery without angina pectoris; Translations: [Coronary atherosclerosis] Onset: 06-15-2022 01-02-2023 Chronic Diabetes mellitus with complications (3 sources) Autonomic neuropathy due to type 2 diabetes mellitus; Translations: [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)neuropathy] Onset: 08-03-2017 01-02-2023 Chronic Diabetes mellitus without complication (1 source) Type 2 diabetes mellitus without complications; Translations: [TYPE 2 DM WITHOUT COMPLICATIONS] Onset: 08-26-2022 Chronic E Codes: Adverse effects of medical drugs (1 source) Adverse effect of other drugs, medicaments and biological substances, initial encounter; Translations: [ADVRS EFF OTH RX MED BIO SUBST INIT] Onset: 06-15-2022 Episodic E Codes: Fall (2 sources) Fall; Translations: [Unspecified fall, initial encounter] Onset: 06-15-2022 Episodic Essential hypertension (2 sources) Essential (primary) hypertension; Translations: [Essential hypertension] Onset: 06-15-2022 01-02-2023 Chronic Headache; including migraine (1 source) Migraine; Translations: [Migraine without aura, not intractable, without status migrainosus] Onset: 01-02-2023 01-02-2023 Chronic Hepatitis (1 source) Nonalcoholic steatohepatitis; Translations: [Nonalcoholic steatohepatitis (IVAN)] Onset: 01-02-2023 01-02-2023 Chronic Joint disorders and dislocations; trauma-related (5 sources) Unspecified internal derangement of left knee; Translations: [Chondromalacia of left patella] Onset: 05-10-2022 Chronic Menopausal disorders (1 source) Hormone replacement therapy; Translations: [HORMONE REPLACEMENT THERAPY] Onset: 06-15-2022 Episodic Mood disorders (4 sources) Bipolar disorder, unspecified; Translations: [Bipolar affective disorder, currently depressed, moderate] Onset: 06-15-2022 Resolved: 03-22-2023 01-02-2023 Chronic Osteoarthritis (4 sources) Bilateral primary osteoarthritis of hip; Translations: [Unspecified osteoarthritis, unspecified site] Onset: 06-15-2022 Resolved: 03-22-2023 01-02-2023 Chronic Osteoporosis (1 source) Age-related osteoporosis without current pathological fracture; Translations: [AGE-REL OSTEOPOR W/O CURR PATH FX] Onset: 06-15-2022 Chronic Other aftercare (1 source) ad terminal makeup operator (current) use of insulin; Translations: [INSECT CONTROL AIDE CURRENT USE OF INSULIN] Onset: 06-15-2022 Episodic Other aftercare (1 source) Other ad terminal makeup operator (current) drug therapy; Translations: [OTH INSECT CONTROL AIDE CURRENT DRUG THERAPY] Onset: 06-15-2022 Episodic Other connective tissue disease (1 source) Myalgia, other site; Translations: [MYALGIA OTHER SITE] Onset: 07-31-2022 Episodic Other connective tissue disease (1 source) Fibromyalgia; Translations: [FIBROMYALGIA] Onset: 06-15-2022 Episodic Other injuries and conditions due to external causes (1 source) History of falling; Translations: [HISTORY OF FALLING] Onset: 06-15-2022 Episodic Other lower respiratory disease (1 source) Shortness of breath; Translations: [SHORTNESS OF BREATH] Onset: 06-15-2022 Episodic Other nervous system disorders (1 source) Chronic pain syndrome; Translations: [CHRONIC PAIN SYNDROME] Onset: 07-31-2022 Chronic Other nervous system disorders (1 source) Other chronic pain; Translations: [OTHER CHRONIC PAIN] Onset: 06-15-2022 Chronic Other non-traumatic joint disorders (1 source) Pain in right hip; Translations: [PAIN IN RIGHT HIP] Onset: 08-01-2022 Episodic Other non-traumatic joint disorders (5 sources) Pain in left hip; Translations: [PAIN IN LEFT HIP] Onset: 07-28-2022 Episodic Other non-traumatic joint disorders (1 source) Pain in right shoulder; Translations: [PAIN IN RIGHT SHOULDER] Onset: 06-15-2022 Episodic Other nutritional; endocrine; and metabolic disorders (1 source) Morbid (severe) obesity with alveolar hypoventilation; Translations: [MORBID SEV OBESITY ALVEOLR HYPOVENT] Onset: 06-15-2022 Chronic Other nutritional; endocrine; and metabolic disorders (1 source) Body mass index (BMI) 50.0-59.9, adult; Translations: [BODY MASS INDEX BMI 50.0-59.9 ADULT] Onset: 06-15-2022 Chronic Other nutritional; endocrine; and metabolic disorders (1 source) Extreme obesity with alveolar hypoventilation; Translations: [Morbid (severe) obesity with alveolar hypoventilation] Onset: 01-02-2023 01-02-2023 Chronic Other screening for suspected conditions (not mental disorders or infectious disease) (1 source) Computed tomography result abnormal; Translations: [Abnormal findings on diagnostic imaging of other specified body structures] Onset: 01-02-2023 01-02-2023 Chronic Other upper respiratory disease (1 source) Allergic rhinitis; Translations: [Allergic rhinitis, unspecified] Onset: 01-02-2023 01-02-2023 Chronic Other upper respiratory infections (5 sources) Chronic sinusitis, unspecified; Translations: [Chronic sinusitis] Onset: 11-22-2021 Chronic Residual codes; unclassified (1 source) Obstructive sleep apnea syndrome; Translations: [Obstructive sleep apnea (adult) (pediatric)] Onset: 01-02-2023 01-02-2023 Chronic Residual codes; unclassified (4 sources) Altered mental status, unspecified; Translations: [ALTERED MENTAL STATUS UNSPECIFIED] Onset: 06-06-2022 Episodic Residual codes; unclassified (1 source) Acquired absence of other specified parts of digestive tract; Translations: [ACQ ABSENCE OTH PART DIGESTV TRACT] Onset: 06-15-2022 Episodic Respiratory failure; insufficiency; arrest (adult) (4 sources) Acute and chronic respiratory failure with hypoxia; Translations: [Dependence on supplemental oxygen] Onset: 06-15-2022 Resolved: 03-22-2023 01-02-2023 Chronic Rheumatoid arthritis and related disease (2 sources) Rheumatoid arthritis, unspecified; Translations: [Rheumatoid arthritis] Onset: 06-15-2022 01-02-2023 Chronic Spondylosis; intervertebral disc disorders; other back problems (8 sources) Spondylosis without myelopathy or radiculopathy, lumbar region; Translations: [Spondylosis without myelopathy or radiculopathy, lumbosacral region] Onset: 01-05-2022 Chronic Superficial injury; contusion (1 source) Contusion of lower back and pelvis, initial encounter; Translations: [CONTUSION LOWER BACK PELVIS INITIAL] Onset: 06-15-2022 Episodic Thyroid disorders (2 sources) Hypothyroidism, unspecified; Translations: [Hypothyroidism] Onset: 06-15-2022 11-23-2022 Chronic Unclassified (3 sources) LOW BACK PAIN, UNSPECIFIED; Translations: [LOW BACK PAIN, UNSPECIFIED] Onset: 07-31-2022 Unclassified (1 source) CONTACT W/AND (SUSP) EXPOS COVID-19; Translations: [CONTACT W/AND (SUSP) EXPOS COVID-19] Onset: 06-15-2022 Past or Other Problems Problem Classification Problem Date Documented Da te Episodic/Chronic Abdominal hernia (2 sources) Diaphragmatic hernia without obstruction or gangrene; Translations: [Diaphragmatic hernia] Onset: 06-08-2022 01-03-2023 Episodic Abdominal pain (1 source) Indigestion; Translations: [Epigastric pain] Onset: 01-02-2023 01-02-2023 Episodic Administrative/social admission (1 source) Finding of activity of daily living; Translations: [Limitation of activities due to disability] Onset: 06-08-2022 01-03-2023 Episodic Fluid and electrolyte disorders (1 source) Hypokalemia; Translations: [Hypokalemia] Onset: 01-04-2023 01-04-2023 Episodic Mood disorders (1 source) Mood disorders Onset: 03-22-2023 03-22-2023 Noninfectious gastroenteritis (1 source) Chronic diarrhea; Translations: [Noninfective gastroenteritis and colitis, unspecified] Onset: 01-02-2023 01-02-2023 Episodic Other and unspecified benign neoplasm (1 source) Adenomatous polyp of colon ; Translations: [Benign neoplasm of colon, unspecified] Onset: 01-02-2023 01-02-2023 Episodic Other connective tissue disease (1 source) Fibromyalgia; Translations: [Fibromyalgia] Onset: 01-02-2023 01-02-2023 Episodic Other connective tissue disease (1 source) Muscle pain; Translations: [Myalgia, unspecified site] Onset: 01-02-2023 01-02-2023 Episodic Other connective tissue disease (1 source) Muscle weakness; Translations: [Muscle weakness (generalized)] Onset: 06-08-2022 01-03-2023 Episodic Other diseases of veins and lymphatics (1 source) Stasis dermatitis; Translations: [Venous insufficiency (chronic) (peripheral)] Onset: 01-02-2023 01-02-2023 Episodic Other gastrointestinal disorders (1 source) Constipation; Translations: [Constipation, unspecified] Onset: 01-02-2023 01-02-2023 Episodic Other injuries and conditions due to external causes (1 source) History of fall; Translations: [History of falling] Onset: 06-08-2022 01-03-2023 Episodic Other nervous system disorders (1 source) Abnormal gait due to impairment of balance; Translations: [Other abnormalities of gait and mobility] Onset: 06-08-2022 01-04-2023 Episodic Other upper respiratory disease (1 source) Hoarse; Translations: [Dysphonia] Onset: 01-02-2023 01-02-2023 Episodic Other upper respiratory disease (1 source) Nasal obstruction; Translations: [Other specified disorders of nose and nasal sinuses] Onset: 01-02-2023 01-02-2023 Episodic Residual codes; unclassified (1 source) Altered mental status; Translations: [Altered mental status, unspecified] Onset: 01-02-2023 01-02-2023 Episodic Screening and history of mental health and substance abuse codes (1 source) H/O: psychiatric disorder; Translations: [Personal history of other mental and behavioral disorders] Onset: 12-03-2019 01-03-2023 Episodic Spondylosis; intervertebral disc disorders; other back problems (14 sources) Radiculopathy, lumbar region; Translations: [Spinal stenosis, lumbar region without neurogenic claudication] Onset: 01-04-2022 Episodic Unclassified (1 source) LOW BACK PAIN, UNSPECIFIED; Translations: [LOW BACK PAIN, UNSPECIFIED] Onset: 02-28-2023 Results Test Name Value Interpretation Reference Range Facility BI MAMMOGRAM SCREENING TOMOS YNTCECIIS BILATERALon 05-17-2023 BI MAMMOGRAM SCREENING TOMOSYNTHESIS BILATERAL This is a summary report. The complete report is available in the patient's medical record. If you cannot access the medical record, please contact the sending organization for a detailed fax or copy. EXAMINATION: BI MAMMOGRAM SCREENING TOMOSYNTHESIS BILATERAL CLINICAL HISTORY: screening COMPARISON: September 17, 2018. RESULT: Digital mammography and 3D tomosynthesis of bilateral breasts was performed. The breasts are almost entirely fatty. Overall appearance is stable. Typically benign calcifications. There is no suspicious mass, asymmetry, architectural distortion, or calcification. Left central breast biopsy material. IMPRESSION: BIRADS 2 - Benign Follow-up: Routine Screening Mamm . Board Certified Radiologists. Accredited by the ACR and FDA. MAMMOGRAPHY IS VERY IMPORTANT TO YOUR HEALTH. THE [employer] GUIDELINES RECOMMEND THAT WOMEN 40 YEARS OF AGE AND OLDER SHOULD HAVE A MAMMOGRAM EVERY YEAR. A REMINDER LETTER WILL BE SENT AT THE APPROPRIATE TIME. THIS FACILITY UTILIZES A REMINDER SYSTEM TO ENSURE ALL PATIENTS RECEIVE REMINDER NOTIFICATIONS AT THE APPROPRIATE TIME BASED ON THE RECOMMENDATIONS OF THIS EXAM. THIS INCLUDES REMINDERS FOR ROUTINE SCREENING MAMMOGRAMS, DIAGNOSTIC MAMMOGRAMS IN WHICH THE PATIENT IS ASKED TO RETURN FOR ADDITIONAL VIEWS, OR OTHER BREAST IMAGING INTERVENTIONS WHEN APPROPRIATE. THE PATIENT WILL BE PLACED IN THE APPROPRIATE REMINDER SYSTEM INCLUDING A REMINDER AT THE APPROPRIATE TIME FOR ANY PENDING ADDITIONAL VIEWS. TRANSCRIBED BY: ELECTRONICALLY SIGNED BY: Mayank Zamora MD Normal Not Available POINT OF CARE GLUCOSEon 07-28 Glucose [Mass/Vol] 238 mg/dL Critically high 74-106 T [facility] Comment on above: Performed By: #### P OCGLUC #### [facility] [address] [address] [address] Cammy Cleaning XR HIPS SOPHY 3_4V WO PELVISon 07-29-2022 XR HIPS SOPHY 3_4V WO PELVIS Begin Addendum #1 Impression: There is no obvious fracture. Due to severe osteopenia a subtle fracture cannot be identified. Original Report EXAM: XR HIPS SOPHY 3_4V WO PELVIS HISTORY: Bilateral hip joint pain COMPARISON: Prior imaging dated 06/06/2022. TECHNIQUE: AP view of the pelvis was obtained along with AP and lateral views of the bilateral hips. Limitations: The exam is very suboptimal for evaluation of the bony details due to poor penetration secondary to patient's very large body habitus. FINDINGS/IMPRESSION: 1. There is no obvious fracture. 2. A subtle nondisplaced fracture is suboptimally evaluated. 3. There is moderate bilateral hip joint and sacroiliac joint osteoarthritis. Normal [facility] MRI LSCOHASSET WO CONon 07-11-19 23 MRI [facility] CON EXAMINATION: MRI [facility] CON HISTORY: Lumbar radiculopathy COMPARISON: No relevant comparison available. TECHNIQUE: A variety of imaging planes and parameters were utilized for visualization of suspected pathology. FINDINGS: For the purposes of numbering, sagittal T2 image # 9 extends from the T10 vertebral body superiorly to the S3 level inferiorly. PARASPINAL AREA: Normal with no visible mass. BONES: Normal alignment with no acute fracture or spondylolisthesis. CORD/CAUDA EQUINA: Normal caliber, contour, and signal intensity. DISC LEVELS: 12-L1: Early degenerative disc disease is present without focal protrusion or neural impingement. L1-L2: Early degenerative disc disease is present without focal protrusion or neural impingement. L2-L3: No significant disc/facet abnormality, spinal stenosis, or foraminal stenosis. L3-L4: No significant disc/facet abnormality, spinal stenosis, or foraminal stenosis. L4-L5: Mild disc desiccation. No disc bulge or herniation. Moderate ligamentum flavum hypertrophy. Moderate to severe facet osteoarthropathy right greater than left. Moderate to severe central canal stenosis best seen on axial image 26. No foraminal stenosis. L5-S1: Moderate to severe disc space narrowing with endplate sclerosis. Mild to moderate diffuse disc/osteophyte complex. Moderate bilateral facet osteoarthropathy. No central canal stenosis. Mild right and moderate left foraminal stenosis IMPRESSION: Degenerative changes resulting in moderate to severe central canal stenosis at L4-L5 Mild right and moderate left L5-S1 foraminal stenosis Electronically authenticated by: CHRISTEN BAKER Date: 2022-07-11 16:37 Normal [facility] CBC AUTO DIFFon 06-08-2022 BASO # 0.1 103/ul Normal 0.0-0.1 [facility] Comment on above: Performed By: #### C BC #### [facility] [address] [place] [address] Dr. Cammy Cleaning Basophils/100 WBC (Bld) 0.8 % Normal 0.2-2.0 [facility] Comment on above: Performed By: #### C BC #### [facility] [address] [place] [address] Dr. Cammy Cleaning EO # 0.5 103/ul Normal 0.0-0.7 [facility] Comment on above: Performed By: #### C BC #### [facility] [address] [place] [address] Dr. Cammy Cleaning Eosinophils/100 WBC (Bld) 5.2 % Normal 0.9-7.0 [facility] Comment on above: Performed By: #### C BC #### [facility] [address] [place] [address] Dr. Cammy Cleaning Erythrocyte distribution width (RBC) [Ratio] 14.8 % Normal 11.0-15.0 [facility] Comment on above: Performed By: #### C BC #### [facility] [address] [place] [address] Dr. Cammy Cleaning Hematocrit (Bld) [Volume fraction] 50.0 % Critically high 36.0-48.0 [facility] Comment on above: Performed By: #### C BC #### [facility] [address] [place] [address] Dr. Cammy Cleaning Hemoglobin (Bld) [Mass/Vol] 15.2 g/dL Normal 12.0-16.0 [facility] Comment on above: Performed By: #### C BC #### [facility] [address] [place] [address] Dr. Cammy Cleaning IG # 0.19 10e3/ul Critically high 0.00-0.03 [facility] Comment on above: Performed By: #### C BC #### [facility] [address] [place] [address] Dr. Cammy Cleaning IG % 1.8 % Critically high 0.0-0.5 [facility] Comment on above: Performed By: #### C BC #### [facility] [address] [place] [address] Dr. Cammy Cleaning LYMPH # 2.1 103/ul Normal 1.2-3.8 [facility] Comment on above: Performed By: #### C BC #### [facility] [address] [place] [address] Dr. Cammy Cleaning Lymphocytes/100 WBC (Bld) 19.6 % Critically low 20.5-60.0 [facility] Comment on above: Performed By: #### C BC #### [facility] [address] [place] [address] Dr. Cammy Cleaning MANUAL DIFF REQ NO Normal [facility] Comment on above: Performed By: #### C BC #### [facility] [address] [place] [address] Dr. Cammy Cleaning MCH (RBC) [Entitic mass] 27.6 pg Normal 26.7-34.0 [facility] Comment on above: Performed By: #### C BC #### [facility] [address] [place] [address] Dr. Cammy Cleaning MCHC (RBC) [Mass/Vol] 30.4 g/dL Normal 29.9-35.2 [facility] Comment on above: Performed By: #### C BC #### [facility] [address] [place] [address] Dr. Cammy Cleaning MCV (RBC) [Entitic vol] 90.7 fL Normal 81.0-99.0 [facility] Comment on above: Performed By: #### C BC #### [facility] [address] [place] [address] Dr. Cammy Cleaning MONO # 0.7 103/ul Normal 0.3-0.8 [facility] Comment on above: Performed By: #### C BC #### [facility] [address] [place] [address] Dr. Cammy Cleaning Monocytes/100 WBC (Bld) 7.0 % Normal 1.7-12.0 [facility] Comment on above: Performed By: #### C BC #### [facility] [address] [place] [address] Dr. Cammy Cleaning NEUT # 6.9 103/ul Critically high 1.4-6.5 [facility] Comment on above: Performed By: #### C BC #### [facility] [address] [address] [address] Cammy Cleaning Neutrophils/100 WBC (Bld) 65.6 % Normal 43.0-75.0 [facility] Comment on above: Performed By: #### C BC #### [facility] [address] [address] [address] Cammy Cleaning Platelet mean volume (Bld) [Entitic vol] 8.7 fL Critically low 9.5-13.5 [facility] Comment on above: Performed By: #### C BC #### [facility] [address] [address] [address] Cammy Cleaning PLT 166 103/ul Normal 150-450 [facility] Comment on above: Performed By: #### C BC #### [facility] [address] [address] [address] Cammy Cleaning RBC 5.51 106/ul Critically high 4.20-5.40 [facility] Comment on above: Performed By: #### C BC #### [facility] [address] [address] [address] Cammy Cleaning WBC 10.5 103/ul Normal 4.0-11.0 [facility] Comment on above: Performed By: #### C BC #### [facility] [address] [address] [address] Cammy Cleaning POINT OF CARE GLUCOSEon 05-29 Glucose [Mass/Vol] 134 mg/dL Critically high 74-106 [facility] Comment on above: Performed By: #### P OCGLUC #### [facility] [address] [address] [address] Cammy Cleaning PROF 14(COMP METB)on 023 Albumin [Mass/Vol] 3.0 g/dL Critically low 3.4-5.0 [facility] Comment on above: Performed By: #### C MP ####[facility] [address] [place] [address]Dr. Cammy Black Albumin/Globulin [Mass ratio] 0.8 {ratio} Normal [facility] Comment on above: Performed By: #### C MP ####[facility] [address] [address]Dr. Cammy Black ALP [Catalytic activity/Vol] 85 U/L Normal 46-116 [facility] Comment on above: Performed By: #### C MP ####[facility] [address] [address]Dr. Cammy Black ALT [Catalytic activity/Vol] 19 U/L Normal 14-59 [facility] Comment on above: Performed By: #### C MP ####[facility] [address] [place] [address]Dr. Monicaterri Black Anion gap [Moles/Vol] 6.9 mmol/L Normal [facility] Comment on above: Performed By: #### C MP ####[facility] [address] [place], [place] [address]Dr. Cammy Black AST [Catalytic activity/Vol] 18 U/L Normal 15-37 [facility] Comment on above: Performed By: #### C MP ####[facility] [address] [place], [place] [address]Dr. Cammy Black Bilirubin [Mass/Vol] 0.6 mg/dL Normal 0.2-1.0 [facility] Comment on above: Performed By: #### C MP ####[facility] [address] [address]Dr. Cammy Black Calcium [Mass/Vol] 9.4 mg/dL Normal 8.5-10.1 [facility] Comment on above: Performed By: #### C MP ####[facility] [address] [address]Dr. Cammy Cleaning Chloride [Moles/Vol] 99 mmol/L Normal 98-107 [facility] Comment on above: Performed By: #### C MP ####[facility] [address] [address]Dr. Cammy Cleaning CO2 [Moles/Vol] 37.8 mmol/L Critically high 21.0-32.0 [facility] Comment on above: Performed By: #### C MP ####[facility] [address] [address]Dr. Cammy Black Creatinine [Mass/Vol] 0.85 mg/dL Normal 0.55-1.02 [facility] Comment on above: Performed By: #### C MP ####[facility] [address] [address]Dr. Cammy Black EGFR-AF ECUADOREAN >60 Normal >=60 [facility] Comment on above: Performed By: #### C MP ####[facility] [address] [address]Dr. Monicaterri Black EGFR-NON AF ECUADOREAN >60 Normal >=60 [facility] Comment on above: Performed By: #### C MP ####[facility] [address] [address]Dr. Cammy Cleaning Globulin (S) [Mass/Vol] 3.6 g/dL Normal [facility] Comment on above: Performed By: #### C MP ####[facility] [address] [address]Dr. Cammy Cleaning Glucose [Mass/Vol] 139 mg/dL Critically high 74-106 [facility] Comment on above: Performed By: #### C MP ####[facility] [address] [address]Dr. Cammy Cleaning Potassium [Moles/Vol] 3.7 mmol/L Normal 3.5-5.1 [facility] Comment on above: Performed By: #### C MP ####[facility] [address] [place] [id number]. Cammy Cleaning Protein [Mass/Vol] 6.6 g/dL Normal 6.4-8.2 [facility] Comment on above: Performed By: #### C MP ####[facility] [address] [address]Dr. Cammy Cleaning Sodium [Moles/Vol] 140 mmol/L Normal 136-145 [facility] Comment on above: Performed By: #### C MP ####[facility] [address] [place] [id number]. Cammy Cleaning Urea nitrogen [Mass/Vol] 14.0 mg/dL Normal 7.0-18.0 [facility] Comment on above: Performed By: #### C MP ####[facility] [address] [place] [id number]. Cammy Cleaning Urea nitrogen/Creatinine [Mass ratio] 16.5 mg/mg Normal [facility] Comment on above: Performed By: #### C MP ####[facility] [address] [place] [address]Dr. Cammy Cleaning BNPon 06-07-2022 Natriuretic peptide B (Bld) [Mass/Vol] 117.0 pg/mL Normal <=900.0 [facility] Comment on above: Performed By: #### C BC #### [facility] [address] [place] [address] Dr. Cammy Cleaning CBC AUTO DIFFon 06-07-2022 BASO # 0.1 103/ul Normal 0.0-0.1 [facility] Comment on above: Performed By: #### C BC #### [facility] [address] [place] [address] Dr. Cammy Cleaning Basophils/100 WBC (Bld) 0.6 % Normal 0.2-2.0 [facility] Comment on above: Performed By: #### C BC #### [facility] [address] [place] [address] Dr. Cammy Cleaning EO # 0.6 103/ul Normal 0.0-0.7 [facility] Comment on above: Performed By: #### C BC #### [facility] [address] [place] [address] Dr. Cammy Cleaning Eosinophils/100 WBC (Bld) 5.8 % Normal 0.9-7.0 [facility] Comment on above: Performed By: #### C BC #### [facility] [address] [place] [address] Dr. Cammy Cleaning Erythrocyte distribution width (RBC) [Ratio] 14.6 % Normal 11.0-15.0 [facility] Comment on above: Performed By: #### C BC #### [facility] [address] [place] [address] Dr. Cammy Cleaning Hematocrit (Bld) [Volume fraction] 45.8 % Normal 36.0-48.0 [facility] Comment on above: Performed By: #### C BC #### [facility] [address] [place] [address] Dr. Cammy Cleaning Hemoglobin (Bld) [Mass/Vol] 14.4 g/dL Normal 12.0-16.0 [facility] Comment on above: Performed By: #### C BC #### [facility] [address] [place] [address] Dr. Cammy Cleaning IG # 0.18 10e3/ul Critically high 0.00-0.03 [facility] Comment on above: Performed By: #### C BC #### [facility] [address] [place] [address] Dr. Cammy Cleaning IG % 1.7 % Critically high 0.0-0.5 [facility] Comment on above: Performed By: #### C BC #### [facility] [address] [place] [address] Dr. Cammy Cleaning LYMPH # 1.8 103/ul Normal 1.2-3.8 [facility] Comment on above: Performed By: #### C BC #### [facility] [address] [place] [address] Dr. Cammy Cleaning Lymphocytes/100 WBC (Bld) 16.1 % Critically low 20.5-60.0 [facility] Comment on above: Performed By: #### C BC #### [facility] [address] [place] [address] Dr. Cammy Cleaning MANUAL DIFF REQ NO Normal [facility] Comment on above: Performed By: #### C BC #### [facility] [address] [place] [address] Dr. Cammy Cleaning MCH (RBC) [Entitic mass] 27.7 pg Normal 26.7-34.0 [facility] Comment on above: Performed By: #### C BC #### [facility] [address] [address] [address] Cammy Cleaning MCHC (RBC) [Mass/Vol] 31.4 g/dL Normal 29.9-35.2 [facility] Comment on above: Performed By: #### C BC #### [facility] [address] [address] [address] Cammy Cleaning MCV (RBC) [Entitic vol] 88.1 fL Normal 81.0-99.0 [facility] Comment on above: Performed By: #### C BC #### [facility] [address] [place] [address] Dr. Cammy Cleaning MONO # 0.9 103/ul Critically high 0.3-0.8 [facility] Comment on above: Performed By: #### C BC #### [facility] [address] [place] [address] Dr. Cammy Cleaning Monocytes/100 WBC (Bld) 8.2 % Normal 1.7-12.0 [facility] Comment on above: Performed By: #### C BC #### [facility] [address] [place] [address] Dr. Cammy Cleaning NEUT # 7.3 103/ul Critically high 1.4-6.5 [facility] Comment on above: Performed By: #### C BC #### [facility] [address] [place] [address] Dr. Cammy Cleaning Neutrophils/100 WBC (Bld) 67.6 % Normal 43.0-75.0 [facility] Comment on above: Performed By: #### C BC #### [facility] [address] [place] [address] Dr. Cammy Cleaning Platelet mean volume (Bld) [Entitic vol] 8.8 fL Critically low 9.5-13.5 [facility] Comment on above: Performed By: #### C BC #### [facility] [address] [place] [address] Dr. Cammy Cleaning PLT 169 103/ul Normal 150-450 [facility] Comment on above: Performed By: #### C BC #### [facility] [address] [place], [place] [address] Dr. Cammy Cleaning RBC 5.20 106/ul Normal 4.20-5.40 [facility] Comment on above: Performed By: #### C BC #### [facility] [address] [place], [place] [address] Dr. Cammy Cleaning WBC 10.9 103/ul Normal 4.0-11.0 [facility] Comment on above: Performed By: #### C BC #### [facility] [address] [place], [place] [address] Dr. Cammy Cleaning ECHOCARDIO M/2D COMPLETEon 0 06-07-2022 ECHOCARDIO M/2D COMPLETE Patient: MALCOLM CORRALES Exam Date: 06/07/2022 : 1960 Gender:F Ordering : DR. WILLEM HIDALGO . Admission #: [id number] Family : OMID MARTINS . Order #: [id number] CLICK HERE TO VIEW EXAM ECHOCARDIOGRAM REPORT PROCEDURE: CARDIO PULMONARY ECHOCARDIO M/2D COMP INDICATIONS: Pulmonary HTN, Respiratory failure COMPARISON: None. DESCRIPTION: COMPLETE ECHOCARDIOGRAM Real-time transthoracic echocardiography with 2D, M-mode, spectral and color flow Doppler performed. QUALITY: Technical quality was good. LEFT VENTRICLE: Normal chamber size. Moderate concentric left ventricular hypertrophy. LV EF: Global left ventricular systolic function is normal. Calculated left ventricular ejection fraction is 55%. No significant wall motion abnormalities. DIASTOLIC: Diastolic function is indeterminate. ATRIAL SEPTUM: Inadequately seen. LEFT ATRIUM: Normal chamber size. RIGHT ATRIUM: Mild dilatation. RIGHT VENTRICLE: Mild dilatation. Decreased right ventricular systolic function. Right ventricular hypertrophy is seen. TRICUSPID VALVE: Normal mobility and thickness. Mild regurgitation. Mild pulmonary hypertension. RVSP 41mmHg MITRAL VALVE: Normal mobility and thickness. No mitral valve prolapse. No evidence of mitral valve stenosis. There is no mitral annular calcification. Trivial mitral regurgitation. AORTIC VALVE: Normal trileaflet appearance. No visible sclerosis. Normal leaflet mobility. No evidence of aortic valve stenosis. No aortic regurgitation. AORTIC ROOT: Normal diameter and appearance. PULMONIC VALVE: Normal thickness and mobility. No stenosis. Trivial regurgitation. PERICARDIUM: No evidence of pericardial effusion. IVC: Collapses with inspirations. Normal size. CONCLUSION: Global left ventricular systolic function is normal; visually estimated ejection fraction is 55 to 60%. Moderate left ventricular hypertrophy. Diastolic function is indeterminate. The right atrium is mildly dilated. The right ventricle is mildly enlarged with reduced systolic function. Right ventricular hypertrophy is seen. Mild tricuspid regurgitation. Mildly elevated right-sided pressures; RVSP is 41 mmHg. Adult Echocardiography Procedure Report Left Ventricle LVEDD (3.7 - 5.6 cm): 4.17 cm LVESD (2.2 - 4.0 cm): 2.78 cm LVIVS thickness (0.6 - 1.2 cm): 1.37 cm LVPW thickness (0.5 - 1.0 cm): 1.40 cm e': 0.08 m/s E - e': 11.00 LVOT Max Gradient: 5.69 mm[Hg] Peak Velocity (LVOT): 1.19 m/s LVOT Diameter 2.05 cm Left Ventricular Ejection Fraction: 62.23 %, 62.23 % Left Atrium LA Volume Index (2D A2C): 60.01 ml, 60.01 ml Left Atrium Systolic Dimension: 3.59 cm Mitral Valve MV E to A Ratio: 0.83 Mitral Valve A-Wave Peak Velocity: 1.10 m/s Mitral Valve E-Wave Peak Velocity: 0.92 m/s Right Ventricle RV Internal Diastolic Dimension: 4.19 cm Aorta AO Root Diam: 3.15 cm Ascending Ao Diam: 3.36 cm Aortic Valve AoV Area (Peak Jaspal): 2.19 cm2, 2.19 cm2 Peak Velocity(Antegrade Flow): 1.81 m/s Peak Gradient(Antegrade Flow): 13.04 mm[Hg] Tricuspid Valve Peak Velocity (Regurgitant Flow): 2.69 m/s, 3.09 m/s Peak Velocity: 0.53 m/s Pulmonic Valve Mean Gradient: 2.82 mm[Hg] Mean Velocity: 0.78 m/s Peak Velocity: 1.16 m/s, 1.42 m/s Peak Gradient: 5.42 mm[Hg], 8.01 mm[Hg] Right Atrium Right Atrium Systolic Pressure: 41.29 ml, 41.29 ml Dictated by: Kate Arellano M.D. on 06/09/2022 at 10:45 Approved by: Kate Arellano M.D. on 06/09/2022 at 10:48 Normal [facility] FREE T4on 06-07-2022 Free T4 [Mass/Vol] 1.21 ng/dL Normal 0.76-1.46 [facility] Comment on above: Performed By: #### C BC #### [facility] [address] [address] [address] Cammy Cleaning GLYCOHEMOGLOBIN A1Con 2022 ADA RECOMMENDATION SEE BELOW Normal [facility] Comment on above: Result Comment: ADA RECOMMENDED LIMIT 4.0 - 6.0 ADA THERAPEUTIC TARGET < 7.0 ACTION SUGGESTED > 7.0 Performed By: #### P OCGLUC #### [facility] [address] [address] [address] Cammy Cleaning Glucose [Mass/Vol] 171 mg/dL Normal [facility] Comment on above: Performed By: #### P OCGLUC #### [facility] [address] [address] [address] Cammy Cleaning HbA1c (Bld) [Mass fraction] 7.6 % Critically high 4.5-6.2 [facility] Comment on above: Performed By: #### P OCGLUC #### [facility] [address] [address] [address] Cammy Cleaning POINT OF CARE GLUCOSEon 05-29 Glucose [Mass/Vol] 141 mg/dL Critically high 74-106 [facility] Comment on above: Performed By: #### C BC #### [facility] [address] [address] [address] Cammy Cleaning Glucose [Mass/Vol] 161 mg/dL Critically high -106 [facility] Comment on above: Performed By: #### P OCGLUC ####[facility] [address] [address]Dr. Cammy Cleaning Glucose [Mass/Vol] 148 mg/dL Critically high -106 [facility] Comment on above: Performed By: #### P OCGLUC ####[facility] [address] [place] [address]Dr. Cammy Cleaning PROF 14(COMP METB)on 023 Albumin [Mass/Vol] 2.7 g/dL Critically low 3.4-5.0 [facility] e [facility] Comment on above: Performed By: #### C MP #### [facility] [address] [place] [address] Dr. Cammy Cleaning Albumin/Globulin [Mass ratio] 0.8 {ratio} Normal [facility] Comment on above: Performed By: #### C MP #### [facility] [address] [place] [address] Dr. Cammy Cleaning ALP [Catalytic activity/Vol] 85 U/L Normal 46-116 [facility] Comment on above: Performed By: #### C MP #### [facility] [address] [place] [address] Dr. Cammy Cleaning ALT [Catalytic activity/Vol] 15 U/L Normal 14-59 [facility] Comment on above: Performed By: #### C MP #### [facility] [address] [place] [address] Dr. Cammy Cleaning Anion gap [Moles/Vol] 8.3 mmol/L Normal [facility] Comment on above: Performed By: #### C MP #### [facility] [address] [place] [address] Dr. Cammy Cleaning AST [Catalytic activity/Vol] 17 U/L Normal 15-37 [facility] Comment on above: Performed By: #### C MP #### [facility] [address] [address] [address] Cammy Cleaning Bilirubin [Mass/Vol] 0.6 mg/dL Normal 0.2-1.0 [facility] Comment on above: Performed By: #### C MP #### [facility] [address] [place] [address] Dr. Cammy Cleaning Calcium [Mass/Vol] 8.9 mg/dL Normal 8.5-10.1 [facility] Comment on above: Performed By: #### C MP #### [facility] [address] [place] [address] Dr. Cammy Cleaning Chloride [Moles/Vol] 102 mmol/L Normal 98-107 [facility] Comment on above: Performed By: #### C MP #### [facility] [address] [address] [address] Cammy Cleaning CO2 [Moles/Vol] 34.6 mmol/L Critically high 21.0-32.0 [facility] Comment on above: Performed By: #### C MP #### [facility] [address] [address] [address] Cammy Cleaning Creatinine [Mass/Vol] 0.80 mg/dL Normal 0.55-1.02 [facility] Comment on above: Performed By: #### C MP #### [facility] [address] [place] [address] Dr. Cammy Cleaning EGFR-AF ECUADOREAN >60 Normal >=60 [facility] Comment on above: Performed By: #### C MP #### [facility] [address] [address] [address] Cammy Cleaning EGFR-NON AF ECUADOREAN >60 Normal >=60 [facility] Comment on above: Performed By: #### C MP #### [facility] [address] [place] [address] Dr. Cammy Cleaning Globulin (S) [Mass/Vol] 3.2 g/dL Normal [facility] Comment on above: Performed By: #### C MP #### [facility] [address] [place] [address] Dr. Cammy Cleaning Glucose [Mass/Vol] 128 mg/dL Critically high 74-106 [facility] Comment on above: Performed By: #### C MP #### [facility] [address] [address] [address] Cammy Cleaning Potassium [Moles/Vol] 3.9 mmol/L Normal 3.5-5.1 [facility] Comment on above: Performed By: #### C MP #### [facility] [address] [place] [address] Dr. Cammy Cleaning Protein [Mass/Vol] 5.9 g/dL Critically low 6.4-8.2 Th [facility] Comment on above: Performed By: #### C MP #### [facility] [address] [address] [address] Cammy Cleaning Sodium [Moles/Vol] 141 mmol/L Normal 136-145 [facility] Comment on above: Performed By: #### C MP #### [facility] [address] [address] [address] Cammy Cleaning Urea nitrogen [Mass/Vol] 11.0 mg/dL Normal 7.0-18.0 [facility] Comment on above: Performed By: #### C MP #### [facility] [address] [address] [address] Cammy Cleaning Urea nitrogen/Creatinine [Mass ratio] 13.8 mg/mg Normal [facility] Comment on above: Performed By: #### C MP #### [facility] [address] [address] [address] Cmamy Cleaning TSHon 06-07-2022 TSH 2.839 uIU/mL Normal 0.358-3.740 [facility] Comment on above: Performed By: #### T SH ####[facility] [address] [place], [place] [address]Dr. Cammy Cleaning ACETAMINOPHENon 06-06-2022 Acetaminophen [Mass/Vol] ug/mL Normal 10.0-30.0 [facility] Comment on above: Performed By: #### A CET, SALYC, ETH ####[facility] [address] [place], [place] [address]DrNoreen Cleaning BLOOD GASES BTYon 06-06-2022 02 MODE NASAL CANNULA Normal [facility] Comment on above: Performed By: #### A BG ####[facility] [address] [place], [place] [address]DrNoreen Cleaning ALLENS TEST Positive Normal [facility] Comment on above: Performed By: #### A BG ####[facility] [address] [address]DrNoreen Cleaning Base excess Calc (Bld) [Moles/Vol] 9.4 mmol/L Critically high -2.0-2.0 [facility] Comment on above: Performed By: #### A BG ####[facility] [address] [address]Dr. Cammy Cleannig BIPAP PRESSURE Normal The [facility] Comment on above: Performed By: #### A BG ####[facility] [address] [address]Dr. Cammy Cleaning CPAP Normal [facility] Comment on above: Performed By: #### A BG ####[facility] [address] [place], [place] [address]Dr. Cammy Cleaning FIO2 Normal [facility] Comment on above: Performed By: #### A BG ####[facility] [address] [place], [place] [address]Dr. Cammy Cleaning HCO3 (Bld) [Moles/Vol] 35.1 mmol/L Critically high 22.0-26.0 [facility] Comment on above: Performed By: #### A BG ####[facility] [address] [place], [place] [address]Dr. Cammy Cleaning LPM 2 Normal [facility] Comment on above: Performed By: #### A BG ####[facility] [address] [place], [place] [address]Dr. Cammy Cleaning MINUTE VOLUME Normal The [facility] Comment on above: Performed By: #### A BG ####[facility] [address] [place], [place] [address]Dr. Cammy Cleaning Oxygen (Bld) [Partial pressure] 59.8 mm[Hg] Critically low 80.0-100.0 [facility] Comment on above: Performed By: #### A BG ####[facility] [address] [place], [place] [address]Dr. Cammy Cleaning Oxygen saturation in Blood 92.4 % Critically low 95.0-100.0 [facility] Comment on above: Performed By: #### A BG ####[facility] [address] [place], [place] [address]Dr. Cammy Cleaning PCO2 63.7 mmHg Critically high 35.0-45.0 [facility] Comment on above: Performed By: #### A BG ####[facility] [address] [address]Dr. Cammy Cleaning PEEP [facility] Comment on above: Performed By: #### A BG ####[facility] [address] [address]Dr. Cammy Cleaning pH (Bld) 7.349 [pH] Critically low 7.350-7.450 [facility] Comment on above: Performed By: #### A BG ####[facility] [address] [address]Dr. Cammy Cleaning PIP [facility] Comment on above: Performed By: #### A BG ####[facility] [address] [address]Dr. Cammy Cleaning PS [facility] Comment on above: Performed By: #### A BG ####[facility] [address] [address]Dr. Cammy Cleaning PUNCTURE SITE [facility] Comment on above: Performed By: #### A BG ####[facility] [address] [address]Dr. Cammy Cleaning RATE [facility] Comment on above: Performed By: #### A BG ####[facility] [address] [address]Dr. Cammy Cleaning VENT MODE [facility] Comment on above: Performed By: #### A BG ####[facility] [address] [address]Dr. Cammy Cleaning [place] [facility] Comment on above: Performed By: #### A BG ####[facility] [address] [address]Dr. Cammy Cleaning BNPon 06-06-2022 Natriuretic peptide B (Bld) [Mass/Vol] 81.0 pg/mL Normal <=900.0 [facility] Comment on above: Performed By: #### C BC #### [facility] [address] [address] [address] Cammy Cleaning CARDIAC PILLO 3-6on 3 CK [Catalytic activity/Vol] 205 U/L Critically high 26-192 [facility] Comment on above: Performed By: #### C MREP #### [facility] [address] [address] [address] Cammy Cleaning CK.MB [Mass/Vol] 0.77 ng/mL Normal <=3.[address] [facility] Comment on above: Performed By: #### C MREP #### [facility] [address] [address] [address] Cammy Cleaning HSTROP 7.5 pg/mL Normal 4.0-51.3 [facility] Comment on above: Result Comment: CUT- OFF POINTS HAVE BEEN ESTABLISHED BASED ON THE FOURTH UNIVERSAL DEFINITIONS OF MYOCARDIAL INFARCTION. THE UPPER REFERENCE LIMIT (URL) OF TROPONIN, DEFINED THE 99TH PERCENTILE OF cTnI DISTRIBUTION IN A REFERENCE POPULATION, HAS BEEN CONFIRMED THE DECISION THRESHOLD FOR MS DIAGNOSIS. Performed By: #### C MREP #### [facility] [address] [place] [address] Dr. Cammy Cleaning CK [Catalytic activity/Vol] 220 U/L Critically high 26-192 [facility] Comment on above: Performed By: #### C BC #### [facility] [address] [place] [address] Dr. Cammy Cleaning CK.MB [Mass/Vol] 0.86 ng/mL Normal <=3.[address] [facility] Comment on above: Performed By: #### C BC #### [facility] [address] [place] [address] Dr. Cammy Cleaning HSTROP 8.7 pg/mL Normal 4.0-51.3 [facility] Comment on above: Result Comment: CUT- OFF POINTS HAVE BEEN ESTABLISHED BASED ON THE FOURTH UNIVERSAL DEFINITIONS OF MYOCARDIAL INFARCTION. THE UPPER REFERENCE LIMIT (URL) OF TROPONIN, DEFINED THE 99TH PERCENTILE OF cTnI DISTRIBUTION IN A REFERENCE POPULATION, HAS BEEN CONFIRMED THE DECISION THRESHOLD FOR MS DIAGNOSIS. Performed By: #### C BC #### [facility] [address] [place] [address] Dr. Cammy Cleaning CBC AUTO DIFFon 06-06-2022 BASO # 0.1 103/ul Normal 0.0-0.1 [facility] Comment on above: Performed By: #### C BC #### [facility] [address] [address] [address] Cammy Cleaning Basophils/100 WBC (Bld) 0.7 % Normal 0.2-2.0 [facility] Comment on above: Performed By: #### C BC #### [facility] [address] [place] [address] Dr. Cammy Cleaning EO # 0.6 103/ul Normal 0.0-0.7 [facility] Comment on above: Performed By: #### C BC #### [facility] [address] [place] [address] Dr. Cammy Cleaning Eosinophils/100 WBC (Bld) 5.4 % Normal 0.9-7.0 [facility] Comment on above: Performed By: #### C BC #### [facility] [address] [place] [address] Dr. Cammy Cleaning Erythrocyte distribution width (RBC) [Ratio] 14.6 % Normal 11.0-15.0 [facility] Comment on above: Performed By: #### C BC #### [facility] [address] [place] [address] Dr. Cammy Cleaning Hematocrit (Bld) [Volume fraction] 47.2 % Normal 36.0-48.0 [facility] Comment on above: Performed By: #### C BC #### [facility] [address] [place] [address] Dr. Cammy Cleaning Hemoglobin (Bld) [Mass/Vol] 15.4 g/dL Normal 12.0-16.0 [facility] Comment on above: Performed By: #### C BC #### [facility] [address] [place] [address] Dr. Cammy Cleaning IG # 0.19 10e3/ul Critically high 0.00-0.03 [facility] Comment on above: Performed By: #### C BC #### [facility] [address] [place] [address] Dr. Cammy Cleaning IG % 1.7 % Critically high 0.0-0.5 [facility] Comment on above: Performed By: #### C BC #### [facility] [address] [place] [address] Dr. Cammy Cleaning LYMPH # 1.8 103/ul Normal 1.2-3.8 [facility] Comment on above: Performed By: #### C BC #### [facility] [address] [place] [address] Dr. Cammy Cleaning Lymphocytes/100 WBC (Bld) 16.0 % Critically low 20.5-60.0 [facility] Comment on above: Performed By: #### C BC #### [facility] [address] [place] [address] Dr. Cammy Cleaning MANUAL DIFF REQ NO Normal [facility] Comment on above: Performed By: #### C BC #### [facility] [address] [place] [address] Dr. Cammy Cleaning MCH (RBC) [Entitic mass] 27.7 pg Normal 26.7-34.0 [facility] Comment on above: Performed By: #### C BC #### [facility] [address] [place] [address] Dr. Cammy Cleaning MCHC (RBC) [Mass/Vol] 32.6 g/dL Normal 29.9-35.2 [facility] Comment on above: Performed By: #### C BC #### [facility] [address] [place] [address] Dr. Cammy Cleaning MCV (RBC) [Entitic vol] 85.0 fL Normal 81.0-99.0 [facility] Comment on above: Performed By: #### C BC #### [facility] [address] [place] [address] Dr. Cammy Cleaning MONO # 0.8 103/ul Normal 0.3-0.8 [facility] Comment on above: Performed By: #### C BC #### [facility] [address] [place] [address] Dr. Cammy Cleaning Monocytes/100 WBC (Bld) 6.8 % Normal 1.7-12.0 [facility] Comment on above: Performed By: #### C BC #### [facility] [address] [place] [address] Dr. Cammy Cleaning NEUT # 7.8 103/ul Critically high 1.4-6.5 [facility] Comment on above: Performed By: #### C BC #### [facility] [address] [place] [address] Dr. Cammy Cleaning Neutrophils/100 WBC (Bld) 69.4 % Normal 43.0-75.0 [facility] Comment on above: Performed By: #### C BC #### [facility] [address] [place] [address] Dr. Cammy Cleaning Platelet mean volume (Bld) [Entitic vol] 9.0 fL Critically low 9.5-13.5 [facility] Comment on above: Performed By: #### C BC #### [facility] [address] [place] [address] Dr. Cammy Cleaning PLT 162 103/ul Normal 150-450 [facility] Comment on above: Performed By: #### C BC #### [facility] [address] [place] [address] Dr. Cammy Cleaning RBC 5.55 106/ul Critically high 4.20-5.[address] [facility] Comment on above: Performed By: #### C BC #### [facility] [address] [place] [address] Dr. Cammy Cleaning WBC 11.3 103/ul Critically high 4.0-11.[address] [facility] Comment on above: Performed By: #### C BC #### [facility] [address] [place] [address] ABD/PELV W CONon 06-06-[address] ABD/PELV W CON EXAMINATION: CT ABD/PELV W CON HISTORY: Syncope COMPARISON: None. TECHNIQUE: Axial CT images through the abdomen and pelvis were obtained after the intravenous administration of 100 mL Omnipaque 300 contrast. Coronal and sagittal reformats were obtained. Dose reduction techniques were achieved by using automated exposure control and/or adjustment of mA and/or kV according to patient size and/or use of iterative reconstruction technique. FINDINGS: Of note, the examination is somewhat limited due to patient motion artifact. There is mild bibasilar atelectasis. Abdomen: The liver and spleen enhance homogeneously without focal lesion. There is hepatic steatosis. There is no intra or extrahepatic biliary duct dilatation. The gallbladder is surgically absent. The pancreas, adrenal glands, kidneys, and bowel loops are unremarkable. The appendix is not seen. There is no mesenteric or retroperitoneal lymphadenopathy. Pelvis: A Ross catheter is in place. A focus of air is seen in the bladder. The rectum is unremarkable. There is no iliac or inguinal lymphadenopathy. The uterus is present. The ovaries appear within normal limits by CT. There is an age-indeterminant aortic dissection which extends from just distal to the renal artery origins through to the aortic bifurcation and into the common right iliac artery. Bone windows show no aggressive osseous lesions. IMPRESSION: 1. Age-indeterminate aortic dissection which extends from just distal to the renal artery origins through the aortic bifurcation and into the common right iliac artery. Consider further evaluation with a CT angiogram abdomen and pelvis examination as clinically indicated. 2. Status post cholecystectomy and possible appendectomy as the appendix is not seen. 3. A focus of air is seen in the bladder which could be secondary to recent instrumentation; however, please correlate with urinalysis for infection. 4. Hepatic steatosis. Finding #[address] Osuna by Dr. Saravia at 2:23 AM EST on 06/06/2022. Electronically authenticated by: Christo SARAVIA Date: 2022-06-06 02:[address] [facility] [address] CSPINE WO CONon 3 CT CSPINE WO CON EXAM: CT CSPINE WO CON 06/06/2022 12:07 AM EST OH001 CLINICAL STATEMENT: Syncope COMPARISON: No prior studies are available at the time of dictation. TECHNIQUE: Helically acquired images were obtained of the cervical spine without contrast. AEC is utilized. 2D reformatted images were reviewed FINDINGS: There is no acute fracture or subluxation. There is straightening of the normal lordotic curvature of the cervical spine. There is no prevertebral soft tissue swelling. The visualized portions of the lung apices are clear. The visualized portions of the skull base are intact. IMPRESSION: Straightening of the normal lordotic curvature of the cervical spine. No acute fracture or subluxation. FOLLOW-UP: Follow-up as clinically indicated. Electronically authenticated by: WILL HOGAN Date: 2022-06-06 02:09 Normal [facility] CT HEAD WO CONon 06-06-2022 CT HEAD WO CON EXAMINATION: CT HEAD WO CON HISTORY: Syncope COMPARISON: None. TECHNIQUE: CT examination of the head without IV contrast. Dose reduction techniques were achieved by using automated exposure control and/or adjustment of mA and/or kV according to patient size and/or use of iterative reconstruction technique. FINDINGS: There is generalized volume loss. There is mild decreased attenuation within periventricular and deep white matter suggestive of chronic microvascular ischemic changes. There is no evidence of intracranial hemorrhage, mass, or midline shift. No extra-axial fluid collection is seen. The visualized paranasal sinuses and mastoid air cells are clear. No skull abnormalities are identified. IMPRESSION: 1. No acute intracranial abnormality. Electronically authenticated by: Christo SARAVIA Date: 2022-06-06 02:07 Normal [facility] CT LSPINE WO CONon CT LSPINE WO CON EXAM: CT LSPINE WO CON HISTORY: Syncope COMPARISON: None. TECHNIQUE: Noncontrast axial CT images through the lumbar spine were obtained with coronal and sagittal reformats. Dose reduction techniques were achieved by using automated exposure control and/or adjustment of mA and/or kV according to patient size and/or use of iterative reconstruction technique. FINDINGS: There are 4 lumbar type vertebral bodies. No acute fracture or subluxation is seen. The vertebral body heights are preserved. The vertebral elements are in anatomic alignment. There is advanced degenerative disease at L4-S1. There is mild degenerative disc disease at T8-T9, T9-T10, and T10-T11. There are scattered degenerative changes including endplate osteophytes and degenerative facet arthropathy. There is moderate to severe bilateral neural foraminal narrowing at L3-L4 secondary to a mild diffuse disc bulge and degenerative facet arthropathy. There is severe left and moderate to severe right neural foraminal narrowing at L5-S1 secondary to a posterior disc osteophyte complex and degenerative facet arthropathy. There is severe spinal canal stenosis at L3-L4 secondary to a diffuse disc bulge and degenerative facet arthropathy. Please see the separately dictated CT abdomen and pelvis examination of the same date for additional findings. IMPRESSION: 1. Degenerative changes of the lumbar spine as described with no acute fracture or subluxation seen. Electronically authenticated by: Christo SARAVIA Date: 2022-06-06 02:29 Normal [facility] CTA ABD/PELVIS WO W CONon CTA ABD/PELVIS WO W CON EXAMINATION: CTA ABD/PELVIS WO W CON HISTORY: pain COMPARISON: 06/06/2022. TECHNIQUE: Routine CTA abdomen/pelvis with intravenous contrast. MIP (maximum intensity projection) images were performed. Dose reduction techniques were achieved by using automated exposure control and/or adjustment of mA and/or kV according to patient size and/or use of iterative reconstruction technique. FINDINGS: Thoracic aorta: Imaged portions of the distal descending thoracic aorta are unremarkable. Abdominal aorta. Age-indeterminate dissection of the abdominal aorta which extends from a level just inferior to the origin of the right main renal artery and into the right common iliac artery. The celiac trunk, common hepatic artery and splenic artery unremarkable. The superior mesenteric artery is unremarkable. There is no extension of the dissection into the main renal arteries or the inferior mesenteric artery. Lower chest: Unremarkable. Solid organs: The liver is unremarkable. The patient has had a prior cholecystectomy. There is no significant biliary dilatation. There is mild fatty infiltration of the pancreatic head. The spleen is unremarkable. The bilateral adrenal glands are unremarkable. The bilateral kidneys are unremarkable. Bowel: Nonobstructive bowel gas pattern with a moderate amount of stool within the colon. The distal esophagus, stomach and small bowel are unremarkable. Inflammation: No free air free fluid. No inflammatory process. Lymphadenopathy: No pathologically enlarged lymph nodes within the abdomen/pelvis. Pelvis: Ross catheter within the urinary bladder. There is a 2.2 cm fibroid projecting from the uterine fundus. Osseous: Multilevel degenerative changes spine. IMPRESSION: Dissection of the abdominal aorta originating from a level just below the origin of the right main renal artery and extending throughout the course of the abdominal aorta into the right common iliac artery. There is no otherwise extension of the dissection into the branch vessels of the abdominal aorta. Electronically authenticated by: ANISH JACKSON Date: 2022-06-06 04:15 Normal [facility]on SARS-CoV-2 (COVID-19) RNA JOSE L+probe Ql (Unsp spec) Not detected Normal NOT DETECTED [facility] Comment on above: Result Comment: When diagnostic testing is negative, the possibility of a false negative should be considered in the context of a patient's recent exposures and the presence of clinical signs and symptoms consistent with SARS-CoV-2. This test is not yet approved or cleared by the [place] FDA. When there are no FDA-approved or cleared tests available, and other criteria are met, FDA can make tests available under an emergency access mechanism called an Emergency Use Authorization (EUA). The EUA for this test is supported by the [place] of Health and Human Service's declaration that circumstances exist to justify the emergency use of in vitro diagnostics for the detection and/or diagnosis of the virus that causes COVID-19. This EUA will remain in effect for the duration of the COVID-19 declaration justifying emergency of IVDs, unless it is terminated or revoked by the FDA (after which the test may no longer be used). Performed By: #### C BC #### [facility] [address] [place] [address] Dr. Cammy Cleaning DRUG SCREEN RAPID (URINE)on 06-06-2022 AMP Negative Normal NEGATIVE [facility] Comment on above: Performed By: #### D FLOYD, ERUR #### [facility] [address] [place] [address] Dr. Cammy Cleaning BAR Negative Normal NEGATIVE [facility] Comment on above: Performed By: #### D BERNARDRPD, ERUR #### [facility] [address] [place] [address] Dr. Cammy Cleaning BUP Negative Normal NEGATIVE [facility] Comment on above: Performed By: #### D RUGRPD, ERUR #### [facility] [address] [place] [address] Dr. Cammy Cleaning BZO Negative Normal NEGATIVE [facility] Comment on above: Performed By: #### D RUGRPD, ERUR #### [facility] [address] [place] [address] Dr. Cammy Cleaning JEM Negative Normal NEGATIVE [facility] Comment on above: Performed By: #### D PATRICIAD, ERUR #### [facility] [address] [place] [address] Dr. Cammy Cleaning CUT-OFFS SEE BELOW Normal [facility] Comment on above: Result Comment: AMP (Amphetamine): 500ng/mL, BAR (Barbituates): 200 ng/mL, BZO (Benzodiazepines): 150 ng/mL, BUP (Buprenorphine): 10 ng/mL, JEM (Cocaine): 150 ng/mL, mAMP (Methamphetamine): 500 ng/mL, MTD (Methadone): 200 ng/mL, OPI (Opiates): 100 ng/mL, OXY (Oxycodone): 100 ng/mL, PCP (Phencyclidine): 25 ng/mL, PPX (Propoxyphene): 300 ng/mL, THC (Cannabinoids): 50 ng/mL, TCA (Trycyclic Antidepressants): 300 ng/mL Performed By: #### D RUGRPD, ERUR #### [facility] [address] [place] [address] Dr. Cammy Cleaning DRUG CUT HEADER DRUG CLASS TEST SYSTEM CUT-OFF CONCENTRATIONS ARE FOLLOWS: Normal [facility] Comment on above: Performed By: #### D RUGRPD, ERUR #### [facility] [address] [place] [address] Dr. Cammy Cleaning mAMP Negative Normal NEGATIVE [facility] Comment on above: Performed By: #### D RUGRPD, ERUR #### [facility] [address] [place] [address] Dr. Cammy Cleaning MTD Negative Normal NEGATIVE [facility] Comment on above: Performed By: #### D RUGRPD, ERUR #### [facility] [address] [place] [address] Dr. Cammy Cleaning OPI Positive Abnormal NEGATIVE [facility] Comment on above: Performed By: #### D RUGRPD, ERUR #### [facility] [address] [place] [address] Dr. Cammy Cleaning OXY Negative Normal NEGATIVE [facility] Comment on above: Performed By: #### D RUGRPD, ERUR #### [facility] [address] [place] [address] Dr. Cammy Cleaning PCP Negative Normal NEGATIVE [facility] Comment on above: Performed By: #### D FLOYD, ERUR #### [facility] [address] [address] [address] Cammy Cleaning PPX Negative Normal NEGATIVE [facility] Comment on above: Performed By: #### D FLOYD, ERUR #### [facility] [address] [place] [address] Dr. Cammy Cleaning TCA Negative Normal NEGATIVE The [facility] Comment on above: Performed By: #### D FLOYD, ERUR #### [facility] [address] [place] [address] Dr. Cammy Cleaning THC Negative Normal NEGATIVE [facility] Comment on above: Performed By: #### D FLOYD, ERUR #### [facility] [address] [place] [address] Dr. Cammy Cleaning ER URINE PROFILEon 3 Bilirubin Ql (U) Negative Normal NEGATIVE [facility] Comment on above: Performed By: #### D FLOYD, ERUR #### [facility] [address] [place] [address] Dr. Cammy Cleaning Clarity (U) CLEAR Normal CLEAR [facility] Comment on above: Performed By: #### Mayda BARRIENTOS, ERUR #### [facility] [address] [place] [address] Dr. Cammy Cleaning Color (U) YELLOW Normal YELLOW The [facility] Comment on above: Performed By: #### Mayda BARRIENTOS, ERUR #### [facility] [address] [place] [address] Dr. Cammy MARTINEZMayda A micrscopic examination will be performed if indicated. Normal [facility] Comment on above: Performed By: #### D FLOYD, ERUR #### [facility] [address] [place] [address] Dr. Cammy Cleaning Glucose Ql (U) >1000 Abnormal NEGATIVE The [facility] Comment on above: Performed By: #### D FLOYD, ERUR #### [facility] [address] [place] [address] Dr. Cammy Cleaning Hemoglobin Ql (U) Negative Normal NEGATIVE [facility] Comment on above: Performed By: #### D PATRICIAD, ERUR #### [facility] [address] [place] [address] Dr. Cammy Cleaning Ketones Ql (U) Negative Normal NEGATIVE The [facility] Comment on above: Performed By: #### D RUGRPD, ERUR #### [facility] [address] [address] [address] Cammy Cleaning LEUKOCYTES Negative Normal NEGATIVE [facility] Comment on above: Performed By: #### D FLOYD, ERUR #### [facility] [address] [address] [address] Cammy Cleaning Nitrite Ql (U) Negative Normal NEGATIVE The [facility] Comment on above: Performed By: #### D FLOYD, ERUR #### [facility] [address] [place] [address] Dr. Cammy Cleaning pH (U) 5.0 [pH] Normal 5-9 [facility] Comment on above: Performed By: #### D FLOYD, ERUR #### [facility] [address] [place] [address] Dr. Cammy Cleaning SPEC GRAVITY 1.010 Normal 1.005-<=1.025 [facility] Comment on above: Performed By: #### D FLOYD, ERUR #### [facility] [address] [place] [address] Dr. Cammy Cleaning UA PROTEIN TRACE Normal NEGATIVE/ TRACE The [facility] Comment on above: Performed By: #### D FLOYD, ERUR #### [facility] [address] [place] [address] Dr. Cammy Cleaning UR MICRO IND NOT INDICATED Normal The [facility] Comment on above: Performed By: #### D FLOYD, ERUR #### [facility] [address] [place] [address] Dr. Cammy Cleaning Urobilinogen Qn (U) 0.2 {Flory'U}/dL Normal 0.2 - 1. 0 [facility] Comment on above: Performed By: #### D RUGRPD, ERUR #### [facility] [address] [address] [address] Cammy Cleaning ETHANOL (BLD ALC)on 06-06-19 ALC NOTE NOTE: 80 mg/dl is th e legal limit for a blood alcohol level Normal [facility] Comment on above: Performed By: #### A CARLOS STEVE, ETH ####[facility] [id number] [id number] Cammy Cleaning Ethanol [Mass/Vol] mg/dL Normal [facility] Comment on above: Performed By: #### A CARLOS STEVE, ETH ####[facility] [id number] [address]Dr[address] Cammy Cleaning POINT OF CARE GLUCOSEon Glucose [Mass/Vol] 180 mg/dL Critically high -106 [facility] Comment on above: Performed By: #### P OCGLUC #### [facility] [address] [address] [address] Cammy Cleaning Glucose [Mass/Vol] 133 mg/dL Critically high -106 [facility] Comment on above: Performed By: #### C BC #### [facility] [address] [address] [address] Cammy Cleaning Glucose [Mass/Vol] 201 mg/dL Critically high -106 [facility] Comment on above: Performed By: #### C BC #### [facility] [address] [address] [address] Cammy Cleaning Glucose [Mass/Vol] 112 mg/dL Critically high -106 [facility] Comment on above: Performed By: #### P OCGLUC #### [facility] [address] [address] [address] Cammy Cleaning PROF CHEM 8 (BAS METB)on Anion gap [Moles/Vol] 6.7 mmol/L Normal [facility] Comment on above: Performed By: #### C BC #### [facility] [address] [address] [address] Cammy Cleaning Calcium [Mass/Vol] 8.7 mg/dL Normal 8.5-10.1 [facility] Comment on above: Performed By: #### C BC #### [facility] [address] [place] [address] Dr. Cammy Claening Chloride [Moles/Vol] 102 mmol/L Normal 98-107 [facility] Comment on above: Performed By: #### C BC #### [facility] [address] [place] [address] Dr. Cammy Cleaning CO2 [Moles/Vol] 35.6 mmol/L Critically high 21.0-32.0 [facility] Comment on above: Performed By: #### C BC #### [facility] [address] [place] [address] Dr. Cammy Cleaning Creatinine [Mass/Vol] 0.93 mg/dL Normal 0.55-1.02 [facility] Comment on above: Performed By: #### C BC #### [facility] [address] [place] [address] Dr. Cammy Cleaning EGFR-AF ECUADOREAN >60 Normal >=60 [facility] Comment on above: Performed By: #### C BC #### [facility] [address] [place] [address] Dr. Cammy Cleaning EGFR-NON AF ECUADOREAN >60 Normal >=60 [facility] Comment on above: Performed By: #### C BC #### [facility] [address] [place] [address] Dr. Cammy Cleaning Glucose [Mass/Vol] 169 mg/dL Critically high 74-106 [facility] Comment on above: Performed By: #### C BC #### [facility] [address] [place] [address] Dr. Cammy Cleaning Potassium [Moles/Vol] 4.3 mmol/L Normal 3.5-5.1 [facility] Comment on above: Performed By: #### C BC #### [facility] [address] [place] [address] Dr. Cammy Cleaning Sodium [Moles/Vol] 140 mmol/L Normal 136-145 [facility] Comment on above: Performed By: #### C BC #### [facility] [address] [place], [place] [address] Dr[address] Cammy Cleaning Urea nitrogen [Mass/Vol] 15.0 mg/dL Normal 7.0-18.0 [facility] Comment on above: Performed By: #### C BC #### [facility] [address] [place], [place] [address] Dr. Cammy Cleaning Urea nitrogen/Creatinine [Mass ratio] 16.1 mg/mg Normal [facility] Comment on above: Performed By: #### C BC #### [facility] [address] [place], [place] [address] Dr. Cammy Cleaning SALICYLATEon 06-06-2022 SALICYLATE 1.6 mg/dL Normal <=19.9 [facility] Comment on above: Performed By: #### A CET, SALMICHAELA, ETH ####[facility] [id number] [place], [place] [address]RtDr. Cammy Cleaning XR CHEST 1 Von 06-06-2022 XR CHEST 1 V EXAM: XR CHEST 1 V HISTORY: SHORTNESS OF BREATH COMPARISON: None. TECHNIQUE: Portable view obtained. FINDINGS: Heart is enlarged. Low lung volumes in the setting of severe obesity. Mild vascular cephalization. No large effusion is detected on the portable projection. No acute bony abnormality. IMPRESSION: Mild congestive pattern versus obesity artifact. Electronically authenticated by: CELESTE LUNA Date: 2022-06-06 02:58 Normal [facility] MRI KNEE LT WO CONon 05-10- 022 MRI KNEE LT WO CON EXAMINATION: MRI KNE E LT WO CON HISTORY: Derangement of left knee ; chronic left knee pain COMPARISON: No relevant comparison available. TECHNIQUE: A complete multi-planar MRI was performed. FINDINGS: MEDIAL COMPARTMENT MEDIAL MENISCUS: No visible tear or significant degeneration. CARTILAGE: No visible defect. BONES: Moderate sized periarticular osteophytes. Mild edema within the marrow cavity deep to the medial tibial plafond suggestive of bone bruising. MCL AND MEDIAL CAPSULE: Grade I sprain of the medial collateral ligament. LATERAL COMPARTMENT LATERAL MENISCUS: No visible tear or significant degeneration. CARTILAGE: Mild thinning. No visible defect. BONES: Moderate sized periarticular osteophytes. No fracture or bone lesion. LCL/POSTEROLAT COMPLEX: Normal lateral collateral ligament, fascicles, lateral capsule and ligaments. ANTERIOR COMPARTMENT PATELLA: Small periarticular degenerative osteophytes. No fracture or bone lesion. CARTILAGE: Mild thinning. No visible defect. TENDONS: Normal. EFFUSION: Moderate size joint effusion with suspected loose bodies within lateral dependent aspect. ACL: Normal appearing ligament. PCL: Normal appearing ligament. MENISCOFEMORAL: Normal meniscofemoral ligaments. OTHER: Negative. IMPRESSION: 1. Suspect mild bone bruising of the medial tibial plateau. Overlying cartilage injury cannot be completely excluded. 2. Degenerative osteophytes along the articular margins of all 3 compartments and mild cartilage thinning. 3. Moderate size joint effusion and suspected loose bodies within the lateral dependent aspect. Electronically authenticated by: BURT FIGUEROA Date: 2022-05-10 15:59 Normal [facility] Progress Noteson 01-25-2022 Escalator Installer Authentication Interface Message Text EMERGENCY TRIAGE, TREAT AND TRANSPORT (ET3) DOCUMENTATION OF TELEHEALTH VISIT Date / Time: 01/14/2022729 Name: Malcolm Corrales : 1960 SSN: (Not on file) EMS Agency: [facility] [] Verbal consent obtained [] Implied consent - patient with potential emergency medical condition requiring assessment of capacity to refuse treatment and/or transport VITAL SIGNS: see flowsheet documentation Reason for Telehealth Visit: Chief Complaint Patient presents with Fall History of Present Ilness: 61 yo female who tripped over her small dog in the [facility]. EMS called for lift assist. No LOC, AC or ETOH. Pt denies injury. Up and ambulatory after EMS assistance Additional pertinent PMHx, SocHx, FamHx: PMH none Meds no AC Review of Systems: Denies the following: headache, neck/back pain, chest pain or abd pain Exam: General: Awake, no distress ENT: normocephalic, atraumatic Pulmonary: No respiratory distress Cardiovascular: Well perfused Neurologic: Oriented to person, place, time and events. Moving all extremities equally. Psychiatric: Appropriate. Good insight and judgement. Medical Decision Makin yo female with mechanical trip and fall requiring lift assist. No LOC or injury. Back at baseline after lift assist. Treat and release. Disposition Supported by Telehealth Assessment: ET3 transport decisions: Treat in place EMS Disposition Reported: Same ET3 Encounter Completed by: Tyler Ingram DO Normal [facility] XR CSPINE 2_3 VIEWSon 2021 XR CSPINE 2_3 VIEWS EXAMINATION: XR CSPINE 2_3 VIEWS, XR TSPINE 2 VIEWS HISTORY: Pain in thoracic spine COMPARISON: No relevant comparison available. FINDINGS: BONES: Reversal of normal cervical lordosis. Normal alignment of the thoracic spine. Mild to moderate diffuse degenerative spondylosis and facet osteoarthropathy most mid thoracic spine. DISC SPACES: Mild to moderate multilevel disc space narrowing most significant at C4-C5 PARASPINOUS: Negative. No paraspinous abnormality is seen. OTHER: Negative. IMPRESSION: Small to moderate diffuse degenerative changes of the cervical and thoracic spine Reversal of cervical lordosis Electronically authenticated by: CHRISTEN BAKER Date: 2022-01-04 19:14 Normal The [facility] CT SINUSES WO CONon 11-23-[address] SINUSES WO CON EXAMINATION: CT SINUSES WO CON HISTORY: Chronic sinusitis COMPARISON: None. TECHNIQUE: Multislice thin computed tomograms of the paranasal sinuses were obtained, with sagittal and coronal reconstructions. Intravenous contrast was not administered. Dose reduction techniques were achieved by using automated exposure control and/or adjustment of mA and/or kV according to patient size and/or use of iterative reconstruction technique. FINDINGS: The paranasal sinuses are well-developed. There is a small mucocele or cyst seen along the anterior aspect of the right maxillary sinus. The remainder of the paranasal sinuses are clear. The ostiomeatal complex on the right is patent. The complex on the left is partially occluded secondary to soft tissues. The orbital rims and floors are intact. The benitez about the paranasal sinuses are intact. There is deviation of the nasal septum to the right and the nasal passages are widely patent. The middle ears and visualized mastoid sinuses are well aerated. IMPRESSION: A small mucocele or cyst is seen in the right maxillary sinus. The remainder the paranasal sinuses are relatively well-developed and clear. There is partial occlusion of the left ostiomeatal complex secondary to mucosal thickening. There is deviation of the nasal septum to the right. The nasal passages are patent. No osseous abnormality is identified. The middle ears are well aerated. Direct comparison with a previous study may be helpful in confirming the chronicity of these findings. Electronically authenticated by: ANISH ROJO Date: 2021-11-22 13:29 Normal [facility] Vital Signs Date Time Vital Sign Value Performing Clinician Rios torrez 01-25-2022 11:40-0400 Diastolic blood pressure 82 mm[Hg] [facility] 01-25-2022 11:40-0400 Heart rate 76 /min [facility] 01-25-2022 11:40-0400 Respiratory rate 20 /min [facility] 01-25-2022 11:40-0400 SaO2% (BldA) [Mass fraction] 94 % [facility] Comment on above: ra 01-25-2022 11:40-0400 Systolic blood pressure 123 mm[Hg] [facility] Encounters Encounter Date Encounter Type Care Provider Facility Start: 07-05-2023 Chart abstracting Erin Rodriguez er PA Work Phone: [facility] Start: 05-17-2023 End: 05-18-2023 ambulatory ERIN VANG Not Available Start: 04-25-2023 ambulatory Pratik Ramos acility:[facility] Start: 09-01-2022 ambulatory NARENDRANATH LAKSHMIPATHY . Facility:[facility] Start: 08-23-2022 End: 08-23-2022 ambulatory NARENDRANATH LAKSHMIPATHY . Facility:[facility] Start: 07-28-2022 End: 07-29-2022 ambulatory NARENDRANATH LAKSHMIPATHY . Facility:[facility] Start: 07-26-2022 End: 07-27-2022 ambulatory NARENDRANATH LAKSHMIPATHY . Facility:[facility] Start: 07-11-2022 End: 07-12-2022 ambulatory CHRISTEN BAKER Facility:[facility] Start: 06-06-2022 End: 06-08-[address] JER RIZO Facility:[facility] Start: 05-10-2022 End: 05-11-2022 ambulatory MR TYLER ESTRADA . Facility: Start: 01-25-2022 End: 02-02-2022 ambulatory UNKNOWN PROVIDER Facility:[facility] Start: 01-14-2022 End: 01-14-2022 [facility]ulatory [facility] Start: 01-14-2022 End: 01-14-2022 Emergency department patient visit [facility] Emergency Triage, Treat and Transport Comment on above: Arrived Start: 01-04-2022 End: 01-05-[address] JER RIZO Facility:[facility] Start: 11-22-2021 End: 11-23-[address] ERIN VANG Facility:[facility] Procedures Date Procedure Procedure Detail Performing Clinician Start: 05-17-2023 Mammography Erni solitario PA Work Phone: Start: 11-16-2015 Colonoscopy Erin solitario PA Work Phone: Plan of Treatment Date Care Activity Detail Author Start: 11-15-2025 Screening for malign ant neoplasm of colon [facility] Start: 01-26-2025 Glaucoma screening Diabetes: R etinopathy Screening [facility] Start: 05-17-2024 Screening for malign ant neoplasm of breast Mammogram [facility] Start: 03-23-2024 Urine screening for protein Diabetes: Urine Protein Screening [facility] Start: 03-22-2024 Medicare Annual Well ness (AWV) Medicare Annual Wellness (AWV) [facility] Start: 07-18-2023 End: 07-18-2023 Patient encounter procedure 07/18/2023 2:15 PM EST Office Visit [facility] [address] [place] [id number] Nelson Baca DO [address] [place], [place] [id number] [facility] Start: 07-05-2023 End: 07-05-2023 Patient encounter procedure 07/05/2023 2:00 PM EST Office Visit [facility] [address] [place] [phone] Erin Vang PA [address] [place] [address] [facility] Start: 06-22-2023 Hemoglobin A1c measurement Diabetes: Hemoglobin A1C [facility] Start: 02-26-2022 Influenza vaccination Influenza Vacc ine (#1) [facility] Start: 2011 Measurement of occul t blood in single stool specimen FIT [facility] Start: 2011 Screening for malign ant neoplasm of breast Mammography [facility] Start: 2011 Screening for malign ant neoplasm of colon CRC Screening [facility] Start: 2011 Shingles (RZV) Vacci ne (1 of 2) Shingles (RZV) Vaccine (1 of 2) [facility] Start: 2006 Cholesterol [Mass/vo lume] in Serum or Plasma Cholesterol [facility] Start: 1991 Screening for malign ant neoplasm of cervix [facility] Start: 1982 Screening for malign ant neoplasm of cervix Pap Smear [facility] Start: 1979 Hepatitis C screening Hepatitis C [facility] Start: 1979 Tetanus + diphtheria + acellular pertussis vaccine (product) Tdap Booster [facility] Start: 1976 HIV screening HIV Test [facility] Start: 1961 COVID-19 Vaccine (#1) COVID-19 Vacci ne (#1) [facility] Start: 1960 Screening for malign ant neoplasm of colon [facility] Immunizations Immunization Date Immunization Notes Care Provider Fa [facility] 06-13-2022 Pneumococcal Conjuga te PCV 20 Erin Hemmer PA Work Phone: [facility] 03-31-2022 Influenza, injectabl e, Madin Karissa Canine Kidney, preservative free, quadrivalent Erin Hemmer PA Work Phone: [facility] 03-24-2021 influenza, injectabl e, quadrivalent, contains preservative Erin Hemmer PA Work Phone: [facility] 03-10-2020 Influenza, injectabl e, Madin [place] Canine Kidney, preservative free, quadrivalent Erin Hemmer PA Work Phone: [facility] 03-12-2019 influenza, injectabl e, madin karissa canine kidney, preservative free Erin Hemmer PA Work Phone: [facility] 04-06-2018 Influenza, injectabl e, Madin Karissa Canine Kidney, preservative free, quadrivalent Erin Hemmer PA Work Phone: [facility] 02-21-2017 pneumococcal polysaccharide vaccine, 23 valent Erin KINGSLEY Work Phone: [facility] 02-21-2017 seasonal influenza, intradermal, preservative free Erin Hemefrain PA Work Phone: [facility] 04-19-2016 influenza, injectabl e, quadrivalent, preservative free Erin Hemmer PA Work Phone: [facility] 02-04-2015 seasonal influenza, intradermal, preservative free Erin Hemmer PA Work Phone: [facility] 03-25-2008 seasonal influenza, intradermal, preservative free Erin Hemmer PA Work Phone: [facility] Payers Date Payer Category Payer Self-pay 2022 Medicare [employer] E [employer] [id number] 2022-Present [address] [address] [place] [address] [id number] 2022 Unknown SP/UNINSURED PEN DING FINANCIAL PROGRAM EVALUATION 9 2022-Present [phone] [address] [place] [address] Other [id number] 2022 Unknown 9 2021 Unknown [id number] 1960 Unknown [id number] 1960 Unknown [id number] 2.16.840.1.840123.3.579.2.593 1960 Unknown [id number] 2.16.840.1.725432.3.579.2.593 1960 Unknown [id number] 2.16.840.1.208603.3.579.2.593 1960 Unknown [id number] 2.16.840.1.584667.3.579.2.593 1961 Unknown [id number] 2.16.840.1.907479.3.579.2.593 1960 Unknown [id number] 2.16.840.1.951610.3.579.2.593 1960 Unknown [id number] 2.16.840.1.313788.3.579.2.593 1960 Unknown [id number] 2.16.840.1.418863.3.579.2.593 1960 Unknown [id number] 2.16.840.1.136460.3.579.2.593 1960 Unknown [id number] 2.16.840.1.538368.3.579.2.125 9 Unknown [id number] 2.16.840.1.177394.3.579.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 stat [facility] Tobacco smoking consumption unknown [facility] Start: 1960 Sex Assigned At Not on file [facility] Start: 01-02-[address] [facility] Never smoked tobacco [facility] Start: 01-02-2023 Tobacco use and exposure Smokeless t obacco non-user [facility] Start: 03-22-2023 Alcohol intake Ex-drinker (finding) [facility] Start: 03-22-2023 History of Social function [facility] Start: 03-22-2023 Tobacco use panel [facility] Start: 01-03-2023 Alcohol Comment Caffeine intak e: 1-2 cups per day coffee, tea [facility] Start: 1960 Sex Assigned At Female [facility] Start: 12-27-2022 Gender identity Identifies as female gender (finding) [facility] Medical Equipment Procedure Code Equipment Code Equipment Origin al Text Equipment Identifier Dates Check blood gluc ose daily [id number] Start: 03-22-2023 End: 03-21-2024 1 each in the morning. Check blood glucose daily.. [id number] Start: 03-22-2023 Consultation note 07-26-2022 Note Date & Type Note Facility 07-26-2022 Note PAIN MANAGEMENT CONS ULTATION CONSULTATION DATE: 07/26/2022 TO: Dr. Rizo CHIEF COMPLAINT: Includes severe bilateral lower back pain. HISTORY OF PRESENT ILLNESS: past medical/surgical history were obtained and documented on our health questionnaire and is available upon request. She is a 62-year-old female reports having had the pain for 30 years; however, over the last three months, she reports that she has been having progressive pain in the above mentioned areas. She sustained a fall in May. She reports that she has been having even accelerated pain since that time. She reports the pain as being 5-7/10 pain, sharp in character, increased with activities such as standing, walking, performing transitioning maneuvers. She feels most comfortable in a semi-recumbent position. She denied any change in bowel and bladder habits or new sensorimotor change in her lower extremities. She does report having numbness in her lower extremities bilaterally, mainly in her feet, and she reports that she has trouble feeling the floor . EXAM: Her examination is notable for the patient having stocking type hypoesthesia from approximately the mid calf on down distally. She otherwise had a non-focal sensorimotor exam of her lower extremities. Deep tendon reflexes were symmetrical. She had a negative straight leg raise. She had nothing to suggest myelopathy involving her lower extremities. She did have significant pain with lumbar facet loading maneuvers occurring bilaterally, worse on the left than the right, from L4 through S1 with associated myofascial spasm of the lumbar paravertebral muscles. Patient had also positive bilateral occurring bilaterally, appearing more significant on the right than the left side. She also had dysesthesia and hypoesthesia along the distribution of the lateral cutaneous branch of the iliohypogastric nerve and lastly, tenderness along the SI joint with a positive bilateral Gaenslen's maneuver, pelvic compression test and Etienne's test. IMPRESSION: Patient presents with chronic pain secondary to bilateral hip joint pain, lumbosacral spondylosis with myofascial dysfunction. RECOMMENDATIONS: I have recommended we proceed with bilateral hip films. Proceed with bilateral L4-5, L5-S1 facet joint injection for diagnostic purpose. I have decreased the use of Unity from q. 6 hours to q.i.d., 5 mg pills, to be taken as tolerated, and to increase the baclofen 10 mg pill, one pill t.i.d. also as tolerated. Went over the details of the procedure with the patient. All her questions were answered. She agrees to proceed with the outlined plan. [facility] Clinical Note 06-06-2022 Note Date & Type Note Facility 06-06-2022 Note PROCEDURE: XR SHOULD ER RT 2V or > HISTORY: Pain of right shoulder joint ; acute right shoulder pain since falling yesterday COMPARISON: None. FINDINGS: BONES:Narrowing of the acromioclavicular joint. Grossly unremarkable glenohumeral joint. No fracture or dislocation. SOFT TISSUES:No visible soft tissue swelling. EFFUSION:None visible. OTHER: Negative. IMPRESSION: 1. No acute bone abnormality. 2. Moderate degenerative changes of the acromioclavicular joint. Electronically authenticated by: BURT FIGUEROA Date: 2022-06-06 13:36 [facility] History of Present illness Narrative 01-25-2022 Tyler Ingram DO - 01/25/2022 11:40 AM EDT Note Date & Type Note Facility 01-25-2022 History of Presen t illness Narrative Images from the original note were not included. EMERGENCY TRIAGE, TREAT AND TRANSPORT (ET3) DOCUMENTATION OF TELEHEALTH VISIT Date / Time: 01/14/2022729 Name: Malcolm Corrales : 1960 SSN: (Not on file) EMS Agency: [facility] [] Verbal consent obtained [] Implied consent - patient with potential emergency medical condition requiring assessment of capacity to refuse treatment and/or transport VITAL SIGNS: see flowsheet documentation Reason for Telehealth Visit: Chief Complaint Patient presents with Fall History of Present Ilness: 61 yo female who tripped over her small dog in the [facility]. EMS called for lift assist. No LOC, AC or ETOH. Pt denies injury. Up and ambulatory after EMS assistance Additional pertinent PMHx, SocHx, FamHx: PMH none Meds no AC Review of Systems: Denies the following: headache, neck/back pain, chest pain or abd pain Exam: General: Awake, no distress ENT: normocephalic, atraumatic Pulmonary: No respiratory distress Cardiovascular: Well perfused Neurologic: Oriented to person, place, time and events. Moving all extremities equally. Psychiatric: Appropriate. Good insight and judgement. Medical Decision Makin yo female with mechanical trip and fall requiring lift assist. No LOC or injury. Back at baseline after lift assist. Treat and release. Disposition Supported by Telehealth Assessment: ET3 transport decisions: Treat in place EMS Disposition Reported: Same ET3 Encounter Completed by: Tyler Ingram DO documented in this encounter [facility] Evaluation note Note Date & Type Note Facility Evaluation note Diagnosis Fall, initial encounter- Primary documented in this encounter [facility] Summary Purpose Family History No Family History Records FoundNo Family History Records FoundNo Family History Records FoundNo Family History Records Found Advance Directives No Advanced Directives Records FoundNo Advanced Directives Records FoundNo Advanced Directives Records FoundNo Advanced Directives Records Found Additional Source Comments Reason for Visit (unrecogniz ed section and content) Reason Comments Fall INFORMATION SOURCE (unrecogn ized section and content) DATE CREATED AUTHOR 02/03/2022 [facility] DATE CREATED AUTHOR AUTHOR'S ORGANIZ ATION 08/31/2022 [facility] DATE CREATED AUTHOR AUTHOR'S ORGANIZ ATION 05/31/2023 [facility] EPIC DATE CREATED AUTHOR AUTHOR'S ORGANIZ ATION 06/29/2023 [facility] Care Teams (unrecognized sec tion and content) Review Coordinator Relationship Specialty Start Date End Date Jer Rizo MD [address] [facility] [address] [place] [address] PCP - General Internal Medicine 01/03/23 Jer Rizo MD [address] [facility] [address] [place] [address] PCP - Devoted 05/29/23 FOR RECORDS PERTAINING TO PATIENTS WHO ARE OR HAVE BEEN ENROLLED IN A CHEMICAL DEPENDENCY/SUBSTANCEABUSE PROGRAM, SOME INFORMATION MAY BE OMITTED. This clinical summary was aggregated from multiple sources. Caution should be exercised in using it in the provision of clinical care. This summary normalizes information from multiple sources, and as a consequence, information in this document may materially change the coding, format and clinical context of patient data. In addition, data may be omitted in some cases. CLINICAL DECISIONS SHOULD BE BASED ON THE PRIMARY CLINICAL RECORDS. [employer] [facility]. provides no warranty or guarantee of the accuracy or completeness of information in this document.
== END 2023-07-18 19:56 | disposition home or self-care (01) ==
LOC: SLEEP 19:55
PROVIDERS: PCP Internal Medicine; Visit Provider Internal Medicine
DX: G47.33 Obstructive sleep apnea (adult) (pediatric) (principal)
CPT/HCPCS: 95811

== ENCOUNTER 2023-07-19 13:55 | Emergency (ER) | payer OTHER, SELFPAY ==
[2023-07-19 13:58] VITALS: BP 135/85; PULSE 79; RESP 18; TEMP 36.7; O2SAT 74; BMI 51.3
[2023-07-19 14:02] VITALS: O2SAT 90
--- NOTE | 2023-07-19 14:07 | XR_ITS ---
The [place] [id number] Patient Name: MALCOLM RECIO MRN: [id number] date: 1960 Sex: F Assigned Patient Location: ER Current Patient Location: Accession/Order Number: [id number] Exam Date: 07/19/2023 14:25 Report Date: 07/19/2023 15:09 At the request of: MILTON REGALADO Procedure: XR knee SOPHY 3V EXAM: XR knee SOPHY 3V, XR ankle LT min 3V HISTORY: pain, fall COMPARISON: None. FINDINGS: Right knee: Corticated fragment of bone involving the medial femoral condyle, presumably remote MCL avulsion injury. Tricompartmental osteophyte formation. No joint effusion. No acute fracture. Left knee: Tricompartmental osteophyte formation. No evidence of acute fracture. No dislocation. Small joint effusion. Left ankle: Soft tissue swelling of the lateral ankle. Osteophytic changes of the ankle joint. Widening of the lateral ankle mortise. No evidence of acute fracture. Plantar calcaneal enthesophyte. XR/XR knee SOPHY 3V IMPRESSION: No acute osseous abnormality of the bilateral knees. Small left knee joint effusion. Prominent soft tissue swelling of the lateral ankle and widening of the lateral ankle mortise. No acute fracture identified. Electronically authenticated by: NAHOMI FULTON Date: 07/19/2023 15:09
--- NOTE | 2023-07-19 14:07 | XR_ITS ---
The [address] [address] Patient Name: MALCOLM RECIO MRN: [id number] date: 1960 Sex: F Assigned Patient Location: ER Current Patient Location: Accession/Order Number: [id number] Exam Date: 07/19/2023 14:25 Report Date: 07/19/2023 15:09 At the request of: MILTON REGALADO Procedure: XR ankle LT min 3V EXAM: XR knee SOPHY 3V, XR ankle LT min 3V HISTORY: pain, fall COMPARISON: None. FINDINGS: Right knee: Corticated fragment of bone involving the medial femoral condyle, presumably remote MCL avulsion injury. Tricompartmental osteophyte formation. No joint effusion. No acute fracture. Left knee: Tricompartmental osteophyte formation. No evidence of acute fracture. No dislocation. Small joint effusion. Left ankle: Soft tissue swelling of the lateral ankle. Osteophytic changes of the ankle joint. Widening of the lateral ankle mortise. No evidence of acute fracture. Plantar calcaneal enthesophyte. XR/XR ankle LT min 3V IMPRESSION: No acute osseous abnormality of the bilateral knees. Small left knee joint effusion. Prominent soft tissue swelling of the lateral ankle and widening of the lateral ankle mortise. No acute fracture identified. Electronically authenticated by: NAHOMI FULTON Date: 07/19/2023 15:09
--- NOTE | 2023-07-19 14:08 | ED_ITS ---
HPI - Extremity Injury (Lower) General Chief Complaint: Extremity Injury, Lower Stated Complaint: FALL Time Seen by Provider: 07/19/23 14:01 Source: patient Mode of arrival: ambulance Limitations: physical limitation History of Present Illness HPI Narrative: 63 year old female presents to the ED via EMS for pain to her left ankle and bilateral knees s/p trip and fall today. Denies hitting her head and LOC. Denies pain to her head, neck, back, chest, abdomen. Rates her pain 5/10. 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 EMS splint in place to left ankle. Related Data Home Medications Medication Instructions Recorded Confirmed baclofen 10 mg tablet 10 mg PO Q8H PRN muscle spasm 06/27/23 06/27/23 budesonide 160 mcg-glycopyr 9 2 inh inhalation BID 06/27/23 06/27/23 mcg-formot 4.8 mcg/actuation HFA inhaler (Breztri Aerosphere) buspirone 30 mg tablet 30 mg PO BID 06/27/23 06/27/23 cariprazine 3 mg capsule (Vraylar) 3 mg PO QDAY 06/27/23 06/27/23 dapagliflozin propanediol 10 mg 10 mg PO QAM 06/27/23 06/27/23 tablet (Farxiga) diclofenac sodium 75 mg 75 mg PO Q12H 06/27/23 06/27/23 tablet,delayed release duloxetine 60 mg capsule,delayed 120 mg PO BEDTIME 06/27/23 06/27/23 release (Cymbalta) furosemide 40 mg tablet 40 mg PO BID 06/27/23 06/27/23 gabapentin 600 mg tablet 1,200 mg PO QPM 06/27/23 06/27/23 gabapentin 600 mg tablet 600 mg PO QAM 06/27/23 06/27/23 levothyroxine 112 mcg tablet 112 mcg PO DAILY 06/27/23 06/27/23 omeprazole 20 mg-sodium 1 cap PO DAILY PRN acid reflux 06/27/23 06/27/23 bicarbonate 1.1 gram capsule (Zegerid OTC) rosuvastatin 5 mg tablet 5 mg PO .qhs 06/27/23 06/27/23 trazodone 100 mg tablet 200 mg PO BEDTIME 06/27/23 06/27/23 metoprolol tartrate 25 mg tablet 25 mg PO BID 06/28/23 06/28/23 Previous Rx's Medication Instructions Recorded hydrocodone 5 mg-acetaminophen 325 1 tab PO Q8H PRN pain 4 days #12 07/19/23 mg tablet tabs Allergies Allergy/AdvReac Type Severity Reaction Status Date / Time ibandronate sodium AdvReac Intermediate Verified 07/19/23 13:59 [From [place]] Penicillins AdvReac Intermediate Verified 07/19/23 13:58 Sulfa (Sulfonamide AdvReac Intermediate Verified 07/19/23 13:58 Antibiotics) Review of Systems ROS Constitutional Denies: fever or chills Ears, nose, mouth, and throat Denies: neck pain Cardiovascular Denies: chest pain Respiratory Denies: shortness of breath Gastrointestinal Denies: abdominal pain, nausea or vomiting Musculoskeletal Reports: extremity pain and joint pain; Denies: back pain or neck pain Integumentary/Breast Denies: rash or itching Neurological Denies: headache, numbness in extremities, weakness in extremities or dizziness PFSH PFS Medical History (Updated 07/19/23 @ 15:21 by Jennifer Tilley) Osteoporosis ?M81.0 - Age-related osteoporosis without current pathological fracture (ICD- 10) Asthma ?J45.909 - Unspecified asthma, uncomplicated (ICD-10) Chronic respiratory failure with hypoxia, on home O2 therapy ?J96.11 - Chronic respiratory failure with hypoxia (ICD-10) ?Z99.81 - Dependence on supplemental oxygen (ICD-10) Hiatal hernia ?K44.9 - Diaphragmatic hernia without obstruction or gangrene (ICD-10) Degenerative disc disease, lumbar ?M51.36 - Other intervertebral disc degeneration, lumbar region (ICD-10) Bipolar disorder ?F31.9 - Bipolar disorder, unspecified (ICD-10) Fibromyalgia ?M79.7 - Fibromyalgia (ICD-10) Hypothyroidism ?E03.9 - Hypothyroidism, unspecified (ICD-10) Rheumatoid arthritis ?M06.9 - Rheumatoid arthritis, unspecified (ICD-10) DM2 (diabetes mellitus, type 2) ?E11.9 - Type 2 diabetes mellitus without complications (ICD-10) Mixed hyperlipidemia ?E78.2 - Mixed hyperlipidemia (ICD-10) Essential hypertension ?I10 - Essential (primary) hypertension (ICD-10) Obesity ?E66.9 - Obesity, unspecified (ICD-10) COPD (chronic obstructive pulmonary disease) ?J44.9 - Chronic obstructive pulmonary disease, unspecified (ICD-10) Stable angina pectoris ?I20.89 - Other forms of angina pectoris (ICD-10) Surgical History H/O cardiac catheterization ?Z98.890 - Other specified postprocedural states (ICD-10) Social History Smoking status: Never smoker Gender Identity: female Exam Constitutional Vital Signs, click to edit/add: Last Vital Signs Temp 98.0 F 07/19/23 13:58 Pulse 79 07/19/23 13:58 Resp 18 07/19/23 13:58 BP 135/85 07/19/23 13:58 Pulse Ox 90 L 07/19/23 14:02 O2 Del Method Nasal Cannula 07/19/23 13:58 O2 Flow Rate 4 07/19/23 14:02 Common normals: no apparent distress and oriented x3 General appearance: cooperative HENHI Common normals: normocephalic and head/scalp atraumatic Head and scalp: normal to inspection Face and sinus: normal facial exam Nose: external nose normal External ear: external ears normal Mouth: oral and palatal mucosa normal, lip normal and tongue normal Eye Common normals: PERRL, EOMs intact bilaterally, conjunctivae normal and no scleral icterus Neck & C-Spine Common normals: full ROM and supple General: normal visual inspection and trachea midline Cervical spine: cervical ROM normal; no cervical spine tenderness, no paracervical muscle tenderness and no paracervical muscle spasm Chest Common normals: palpation of chest normal Chest: symmetrical chest wall rise Respiratory Common normals: normal respiratory effort Effort & inspection: symmetric chest movement Cardio Common normals: regular rate and regular rhythm Peripheral pulses: posterior tibial pulses present and dorsalis pedis pulses present Back & Pelvis Thoracic spine/upper back: normal to inspection; no thoracic spinal tenderness and no paraspinal muscle tenderness Lumbar spine/lower back: normal to inspection; no lumbar spinal tenderness and no paraspinal muscle tenderness Extremity Other: Tenderness, swelling to left ankle. Tenderness to bilateral knees. Decreased ROM to right knee due to pain. Denies tenderness to bilateral hips. No deformity noted to hips. Bruising to right knee. Pedal pulses palpable. Distal sensation intact. Neuro Common normals: oriented x3 and CN's II-XII intact bilaterally Sensorium/orientation: awake and alert Speech: speech normal Course Vital Signs Vital signs: Vital Signs Temperature 98.0 F 07/19/23 13:58 Pulse Rate 79 07/19/23 13:58 Respiratory Rate 18 07/19/23 13:58 Blood Pressure 135/85 07/19/23 13:58 Pulse Oximetry 74 L 07/19/23 13:58 Oxygen Delivery Method Nasal Cannula 07/19/23 13:58 Oxygen Delivery Flow Rate 2 07/19/23 13:58 Temperature 98.0 F 07/19/23 13:58 Pulse Rate 79 07/19/23 13:58 Respiratory Rate 18 07/19/23 13:58 Blood Pressure 135/85 07/19/23 13:58 Pulse Oximetry 90 L 07/19/23 14:02 Oxygen Delivery Method Nasal Cannula 07/19/23 13:58 Oxygen Delivery Flow Rate 4 07/19/23 14:02 MDM - Extremity Injury (Lower) MDM Narrative Medical decision making narrative: Imaging showed a small left knee joint effusion and prominent soft tissue swelling of the lateral ankle and widening of the lateral ankle mortise. Findings were discussed with the patient. She has a walker at home for ambulation. An moe wrap was applied to the left ankle. The application was checked and was appropriate; the LLE remained NVI. OARRS was reviewed. A prescription was provided for norco. Follow up with pcp, an orthopedist, and parking meter servicer for a recheck, further evaluation and treatment. Differential Diagnosis Differential diagnosis: Likely ankle sprain and strain, acute internal derangement of knee, ankle fracture and other Medical Records Attestation: I reviewed the patient's medical records. Imaging Data xr ankle: Radiologist's impression: ITS Impressions Ankle X-Ray 07/19/23 14:07 IMPRESSION: No acute osseous abnormality of the bilateral knees. Small left knee joint effusion. Prominent soft tissue swelling of the lateral ankle and widening of the lateral ankle mortise. No acute fracture identified. Electronically authenticated by: NAHOMI FULTON Date: 07/19/2023 15:09 Knee X-Ray 07/19/23 14:07 IMPRESSION: No acute osseous abnormality of the bilateral knees. Small left knee joint effusion. Prominent soft tissue swelling of the lateral ankle and widening of the lateral ankle mortise. No acute fracture identified. Electronically authenticated by: NAHOMI FULTON Date: 07/19/2023 15:09 Discharge Plan Discharge Chief Complaint: Extremity Injury, Lower Clinical Impression: Effusion of knee joint, left, Acute bilateral knee pain, Ankle sprain and strain, Fall Patient Disposition: Home, Self-Care Time of Disposition Decision: 15:20 Condition: Good Mode of Transportation: Private Vehicle Prescriptions / Home Meds: New hydrocodone-acetaminophen 5-325 mg tablet 1 tab PO Q8H PRN (Reason: pain) 4 Days Qty: 12 0RF No Action baclofen 10 mg tablet 10 mg PO Q8H PRN (Reason: muscle spasm) trazodone 100 mg tablet 200 mg PO BEDTIME buspirone 30 mg tablet 30 mg PO BID furosemide 40 mg tablet 40 mg PO BID duloxetine [Cymbalta] 60 mg capsule,delayed release(DR/EC) 120 mg PO BEDTIME levothyroxine 112 mcg tablet 112 mcg PO DAILY Farxiga 10 mg tablet 10 mg PO QAM omeprazole-sodium bicarbonate [Zegerid OTC] 20-1.1 mg-gram capsule 1 cap PO DAILY PRN (Reason: acid reflux) gabapentin 600 mg tablet 600 mg PO QAM Rx Instructions: 1 in morning, 2 at night; diclofenac sodium 75 mg tablet,delayed release (DR/EC) 75 mg PO Q12H gabapentin 600 mg tablet 1,200 mg PO QPM Breztri Aerosphere 160-9-4.8 mcg/actuation HFA aerosol inhaler 2 inh INHALATION BID Vraylar 3 mg capsule 3 mg PO QDAY rosuvastatin 5 mg tablet 5 mg PO .qhs metoprolol tartrate 25 mg tablet 25 mg PO BID Instructions: Ankle Sprain (ED), Knee Pain (ED) Stand Alone Forms: Portal Instructions Referrals: Manjinder Altman DO [Primary Care Provider] - 1 week Al Gillespie DPM [Physician] - 1 week Lazaro Blandon MD [Physician] - 1 week
[2023-07-19 14:40] VITALS: PULSE 74
[2023-07-19] MEDS: OXYCODONE HCL/ACETAMINOPHEN 5MG/325MG 2 TAB PO (16:07)
== END 2023-07-19 17:50 | disposition home or self-care (01) ==
PROVIDERS: Emergency Provider Emergency Medicine; PCP Internal Medicine
DX: S93.402A Sprain of unspecified ligament of left ankle, initial encounter (principal); M25.462 Effusion, left knee; S96.912A Strain of unspecified muscle and tendon at ankle and foot level, left foot, initial encounter; Z79.899 Other long term (current) drug therapy; Z79.51 Long term (current) use of inhaled steroids; M81.0 Age-related osteoporosis without current pathological fracture; K44.9 Diaphragmatic hernia without obstruction or gangrene; M51.36 Other intervertebral disc degeneration, lumbar region; M31.9 Necrotizing vasculopathy, unspecified; M79.7 Fibromyalgia; E03.9 Hypothyroidism, unspecified; M06.9 Rheumatoid arthritis, unspecified; E11.9 Type 2 diabetes mellitus without complications; E78.2 Mixed hyperlipidemia; I10 Essential (primary) hypertension; J44.9 Chronic obstructive pulmonary disease, unspecified; M25.561 Pain in right knee; M25.562 Pain in left knee; W01.0XXA Fall on same level from slipping, tripping and stumbling without subsequent striking against object, initial encounter; E66.9 Obesity, unspecified; Z68.43 Body mass index [BMI] 50.0-59.9, adult
CPT/HCPCS: 73562; 73610; 99283

== ENCOUNTER 2023-09-19 19:59 | Outpatient (OUT) | payer OTHER, SELFPAY | END 2023-09-19 20:00 | disposition home or self-care (01) | LOC: SLEEP 20:00 | PROVIDERS: PCP Internal Medicine; Visit Provider Internal Medicine | DX: G47.33 Obstructive sleep apnea (adult) (pediatric) (principal); G47.31 Primary central sleep apnea | CPT/HCPCS: 95811 ==

== ENCOUNTER 2023-12-07 07:37 | Day surgery (SDC) | payer OTHER, SELFPAY ==
--- NOTE | 2023-12-06 | HP_ITS ---
PREOPERATIVE HISTORY AND PHYSICAL Date:? 12/06/2023 HISTORY:? Patient is a 63-year-old white female with complaints of declining vision out of her left eye.? She states that the general onset of this has been rather rapid over the last 12 months.? She states having difficulty with distance as well as mid range vision.? Night time driving is more difficult because of the headlights creating glare, and road signs have become more difficult to read.? She also states having difficulty watching television. PAST OCULAR HISTORY:? Dry eyes. PAST MEDICAL HISTORY:? 1.? Thyroid disease. 2.? Early arthritis. 3.? Osteoporosis. 4.? Morbid obesity. 5.? Meniere?s disease. 6.? IBS. 7.? Hypothyroidism. 8.? Hypertension. 9.? Diabetes. 10.? Congenital heart failure. 11.? Bipolar. 12.? Asthma. 13.? History of rotator cuff repair. SOCIAL HISTORY:? Denies tobacco, alcohol or recreational drug abuse.? SYSTEMIC MEDICATIONS:? Include rosuvastatin, meloxicam, levothyroxin, Farxiga, Tradjenta, Cymbalta, metoprolol, furosemide, baclofen, gabapentin, albuterol. ALLERGIES:? To cefdinir, ibandronic acid, nabumetone, penicillin and sulfanilamide.? REVIEW OF SYSTEMS:? No pertinent positives. PHYSICAL EXAM:? GENERAL:? In general, she is awake, alert and oriented x3, well developed, well nourished, with morbid obesity. HEART:? Regular rate and rhythm. LUNGS:? Clear bilaterally. ABDOMEN:? Soft, non-tender, non-distended. EXTREMITIES:? With 3+ pitting edema. OPHTHALMIC EXAM:? Revealed a visual acuity of 20/60 in the right and count fingers at 6? in the left.? Pupils motility, muscle balance, confrontational visual gordillo within normal limits bilaterally.? Pressures were measured at 28 bilaterally.? Slit lamp exam revealed blepharitis with a severe decrease in tear film bilaterally.? Conjunctiva, cornea, anterior chamber and iris were within normal limits bilaterally.? Lens status demonstrated 2+ nuclear sclerosis with 1+ PSC bilaterally.? FUNDUS EXAM:? Revealed a good view with good dilation bilaterally.? Optic discs, macula, vessels, periphery and vitreous were within normal limits bilaterally.? ASSESSMENT AND PLAN:? Visually significant cataract, left eye.? After risks, benefits, alternatives, as well as expectations were delivered to the patient, she elected to go forward with cataract removal.? She understands the risks include but not limited to infection, bleeding, loss of vision, loss of the eye itself.? Secondly, she understands postoperatively she is likely to require spectacle correction for best visual acuity.? Finally, a complete ophthalmic exam was performed, there is not determined to be any other source of visual decline other than that of the cataract.? After understanding all the risks as well as expectations, she elected to go forward with procedure as listed above and will be doing so in the near future. DAMARIS
[2023-12-07] MEDS: PHENYLEPHRINE HCL 2.5% OP SOL 40 DROP/2 ML BOTTLE OP ×4 (08:00→08:21)
[2023-12-07] MEDS: TROPICAMIDE 1% OP SOL 300 DROP/15 ML BOTTLE OP ×4 (08:00→08:22)
[2023-12-07] MEDS: CYCLOPENTOLATE HCL 1% OP SOL 40 DROP/2 ML BOTTLE OP ×4 (08:01→08:22)
[2023-12-07] MEDS: BESIFLOXACIN HCL 100 DROP DROPS.SUSP OP ×4 (08:01→08:23)
[2023-12-07] MEDS: DIAZEPAM 5 MG TABLET PO (08:02)
[2023-12-07 08:05] VITALS: BP 114/56; PULSE 62; TEMP 35.9
[2023-12-07 09:12] VITALS: BP 103/58; PULSE 64; O2SAT 93
--- NOTE | 2023-12-07 09:12 | OP_ITS ---
OP Note OPERATION DATE: ??12/07/2023 SURGEON:? Nelson Baca M.D. PREOPERATIVE DIAGNOSIS:? Nuclear sclerotic cataract left eye. POSTOPERATIVE DIAGNOSIS:? Nuclear sclerotic cataract left eye. PROCEDURE:? Cataract extraction with intraocular lens placed for the left eye. ANESTHESIA:? Topical ESTIMATED BLOOD LOSS:? Zero. COMPLICATIONS:? None. PROCEDURE:? The patient was brought to the Operating Room in supine position.? After proper identification, the left eye was prepped and draped in a sterile ophthalmic fashion.? A paracentesis created at the 5 o'clock position.? Approximately 1 cc of unpreserved Xylocaine was injected into the anterior chamber followed by Amvisc Plus.? Using a 2.6 mm Keratome blade, a clear corneal incision was created at the 2 o'clock limbus.? A cystotome was then used to begin a curvilinear capsulorrhexis that was continued for 360 degrees with the Utrata forceps.? BSS on a 26 gauge cannula was injected beneath the anterior capsule to hydrodissect as well as hydrodelineate the lens.? After ensuring mobility, phacoemulsification was performed in a [id number]-type fashion.? After all nuclear material had been removed from the eye, IA was introduced and all residual cortical material was cleaned up.? Additional Amvisc Plus was injected into the posterior bag and a lens model MX60, 19.5 diopters was injected and dialed into position.? After ensuring centration, IA was reintroduced into the anterior chamber and all residual Amvisc Plus was removed from the eye.? BSS on a 30 gauge cannula was injected into the stroma of both the clear corneal incision as well as paracentesis to hydrate the wounds.? Additional BSS was injected into the anterior chamber to pressurize the eye at approximately 20 to 22 mmHg by finger tension.? 0.1 cc of antibiotic was used to wash out the anterior chamber, maintaining the pressures above.? Weck-Nitza sponges were used to check the wounds to be watertight.? One drop of apraclonidine and one drop of prednisolone acetate placed into the eye and a shield was placed over top. The patient was sent to the postoperative area in satisfactory condition to follow up the following day for postoperative care. DAMARIS
[2023-12-07] MEDS: APRACLONIDINE HCL 0.5% SOL 100 DROP/5 ML BOTTLE OP (09:15)
[2023-12-07] MEDS: HYALURONATE SODIUM 16 MG/ML SYRINGE OP (09:15)
[2023-12-07] MEDS: LIDOCAINE 2% JELLY 10 ML TOPICAL (09:15)
[2023-12-07] MEDS: BETADINE POVIDONE-IODINE 5% OP SOL 30 ML BOTTLE OP (09:16)
[2023-12-07] MEDS: LIDOCAINE HCL 1% PF 20 MG/2 ML VIAL INJ (09:16)
[2023-12-07] MEDS: PREDNISOLONE ACETATE OP 1% SUSP 100 DROPS/5 ML 1 DROP OP (09:16)
[2023-12-07] MEDS: PROPARACAINE HCL 0.5% 300 DROP/15 ML BOTTLE OP (09:16)
[2023-12-07] MEDS: PHENYLEPHRINE/KETOROLAC 1-0.3% ML VIAL 4 ML IRR (09:16)
[2023-12-07] MEDS: TETRACAINE HCL 0.5% OP SOL 80 DROP/4 ML BOTTLE OP (09:17)
[2023-12-07 09:18] VITALS: BP 107/71; PULSE 63; O2SAT 93
== END 2023-12-07 09:30 | disposition home or self-care (01) ==
LOC: SURGOUT 07:38
PROVIDERS: Visit Provider Ophthalmology
PROC: (CPT 66984; principal; 2023-12-07 08:45)
DX: H25.12 Age-related nuclear cataract, left eye (principal)
CPT/HCPCS: 66984; V2630

== ENCOUNTER 2023-12-07 07:39 | Outpatient (OUT) | payer OTHER, SELFPAY | END 2023-12-07 07:40 | disposition home or self-care (01) | LOC: PST 07:39 | PROVIDERS: PCP Internal Medicine; Visit Provider Ophthalmology | DX: Z01.818 Encounter for other preprocedural examination (principal); H25.12 Age-related nuclear cataract, left eye ==

== ENCOUNTER 2023-12-21 12:48 | Outpatient (RCR) | payer OTHER, SELFPAY | END 2024-01-11 13:47 | disposition home or self-care (01) | LOC: PT 12:48 | PROVIDERS: Visit Provider Physician Assistant | DX: M54.50 Low back pain, unspecified (principal) | CPT/HCPCS: 97010; 97110; 97112; 97140; 97163; G0283 ==

== ENCOUNTER 2024-01-03 13:42 | Outpatient (OUT) | payer OTHER, SELFPAY ==
--- OUTSIDE RECORDS SUMMARY | 2024-01-03 13:50 | XMS_ITS | CCD ---
Author Organization [facility] Care Team Providers Care Manager Channel Name Role Phone Unavailable Primary Care Provider Unavailabl e PROVIDER, UNKNOWN Attending Unavailable PROVIDER, UNKNOWN Admitting Unavailable HEMMER, DR ERIN Vail Attending Unavailable HEMMER, DR ERIN Vail Admitting Unavailable NEFCYANISH Consulting Unavailable FREDY, DR RUSSELL Primary Care Unavailable HEMMER, DR ERIN Vail Consulting Unavailable FREDY, DR RUSSELL Consulting Unavailable FREDY, DR RUSSELL Attending Unavailable FREDY, DR RUSSELL Admitting Unavailable FREDY, DR RUSSELL Primary Care Unavailable CHRISTEN BAKER Consulting Unavailable ESTRADA ., MR TYLER Attending Unavailable ESTRADA ., MR TYLER Admitting Unavailable ZIEBTRI, DR BURT Marks Consulting Unavailable FREDY, DR RUSSELL Primary Care Unavailable ESTRADA ., MR TYLER Consulting Unavailable LAKSHMIPATHY ., SIOMARA Consulting Rachael vailable LAKSHMIPATHY ., SIOMARA Attending Rachael vailable LAKSHMIPATHY ., SIOMARA Admitting Rachael vailable DR JER RIZO Primary Care Unavailable LAKSHMIPATHY ., NARANDREAATH Attending Rachael vailable LAKSHMIPATHY ., BENNETTATH Admitting Rachael vailable LAKSHMIPATHY ., [place]OM[place] Consulting Rachael vailable DR JER RIZO Primary Care Unavailable LEIGHSHMIPATHY ., SIOMARA Attending Rachael vailable LEIGHSHMIPATHY ., SIOMARA Admitting Rachael vailable DR JER RIZO Primary Care Unavailable FREDY, DR RUSSELL Primary Care Unavailable ZIPASHA, DR BURT Marks Consulting Unavailable ELIEZER ., OMID Attending Unavailable ELIEZER ., OMID Admitting Unavailable NADERER, DR YANNICK Clancy Consulting Unavailable BRETT OSUNA Consulting Unavailable GWEN .WILLEM Consulting Unavailable CELESTE LUNA Consulting Unavailable VINNY SARAVIA Consulting Unavailable WILL HOGAN Consulting Unavailable ANISH JACKSON Consulting Unavailable ELIEZER ., OMID Consulting Unavailable CHRISTEN BAKER Consulting Unavailable SEAN ., MR TYLER Attending Unavailable SEAN ., MR TYLER Admitting Unavailable DR JER RIZO Primary Care Unavailable SEAN ., MR TYLER Consulting Unavailable LAKSHMIPATHStefanie ., NARENDEVAN Attending Rachael vailable LAKSHMIRODOLFO ., NARENDRANATH Admitting Rachael vailable BRIA GUAJARDO Consulting Unavailable DR JER RIZO Primary Care Unavailable RAFA ., [place] Consulting Rachael Jer Fitch MD Primary Care Provider Jer Rizo MD Unavailable [phone] Pratik Soria Attending Unavailab Pratik Dunlap Admitting Unavailab Jer Calvin Primary Care Unavailable ERIN VANG Attending Unavailable TYLER ESTRADA Attending Unavailable TYLER ESTRADA Referring Unavailable SWATHI BACA Attending Unavailable PILLO DIGGS Referring Unavailable ERIN VANG Attending Unavailable ERIN VANG Referring Unavailable Allergies Allergy Classification Reported Allergen(s) Allergy Type Date of Onset Reaction(s) Facility (2 sources) cefdinir Drug Allergy 3 [facility] Repository (1 source) Codeine Drug Allergy [facility] (2 sources) Ibandronate Drug Allergy 3 [facility] (2 sources) nabumetone Drug Allergy 3 [facility] (2 sources) Penicillins Drug allergy (disorder) 3 [facility] (2 sources) Sulfonamides (Antibiotic) Drug allergy (disorder) 3 [facility] (1 source) cefdinir Drug Allergy 3 Hives [facility] Work Phone: (1 source) Ibandronate Drug Allergy 3 Hives [facility] (1 source) nabumetone Drug Allergy 3 [facility] (1 source) Penicillin G Drug Allergy 3 [facility] (1 source) Sulfanilamide Allergy to substance 3 [facility] Medications Current Medications Medication Drug Class(es) Dates Sig (Normalized) Sig (Original) acetaminophen 325 mg / HYDROcodone bitartrate 5 mg oral tablet (1 source) Opioid Agonist Start: 03-22-2023 take 1 tablet by mouth every six hours for pain HYDROcodone-acetam inophen (Ferney) 5-325 MG tablet Indications: Cervical spondylosis Take 1 tablet by mouth every 6 (six) hours if needed for severe pain or moderate pain. 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 (CMS/HCC) Take 1 tablet (600 [...] disease (2 sources) Atherosclerotic heart disease of [place] coronary artery without angina pectoris; Translations: [Coronary [...] Onset: 06-15-2022 Chronic Other aftercare (1 source) 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 THE [employer] GUIDELINES RECOMMEND THAT WOMEN 40 [...] [Mass/Vol] 238 mg/dL Critically high 74-106 [facility] Comment on above: Performed By: #### P OCGLUC #### [facility] [address] [address] [address] Cammy Cleaning XR HIPS SOPHY 3_4V [...] joint and sacroiliac joint osteoarthritis. Normal [facility] MRI [facility] WO CONon 07-11-19 23 MRI [facility] CON EXAMINATION: MRI [facility] CON HISTORY: Lumbar radiculopathy COMPARISON: No relevant [...] CHRISTEN BAKER Date: 2022-07-11 16:37 Normal [facility] CBC AUTO DIFFon 06-08-2022 BASO # 0.1 103/ul Normal 0.0-0.1 [facility] Comment on above: Performed By: #### C BC #### [facility] [address] [address] [address] Cammy Cleaning Basophils/100 WBC (Bld) 0.8 % Normal 0.2-2.0 [facility] Comment on above: Performed By: #### C BC #### [facility] [address] [address] [address] Cammy Cleaning EO # 0.5 103/ul Normal 0.0-0.7 [facility] Comment on above: Performed By: #### C BC #### [facility] [address] [address] [address] Cammy Cleaning Eosinophils/100 WBC (Bld) 5.2 % Normal 0.9-7.0 [facility] Comment on above: Performed By: #### C BC #### [facility] [address] [place] [address] Dr. Cammy Cleaning Erythrocyte distribution width (RBC) [Ratio] 14.8 % Normal 11.0-15.0 [facility] Comment on above: Performed By: #### C BC #### [facility] [address] [address] [address] Cammy Cleaning Hematocrit (Bld) [Volume fraction] 50.0 % Critically high 36.0-48.0 [facility] Comment on above: Performed By: #### C BC #### [facility] [address] [address] [address] Cammy Cleaning Hemoglobin (Bld) [Mass/Vol] 15.2 g/dL Normal 12.0-16.0 [facility] Comment on above: Performed By: #### C BC #### [facility] [address] [address] [address] Cammy Cleanign IG # 0.19 10e3/ul Critically high 0.00-0.[address] [facility] Comment on above: Performed By: #### C BC #### [facility] [address] [address] [address] Cammy Cleaning IG % 1.8 % Critically high 0.0-0.5 [facility] Comment on above: Performed By: #### C BC #### [facility] [address] [place] [address] Dr. Cammy Cleaning LYMPH # 2.1 103/ul Normal 1.2-3.8 [facility] Comment on above: Performed By: #### C BC #### [facility] [address] [place] [address] Dr. Cammy Cleaning Lymphocytes/100 WBC (Bld) 19.6 % Critically low 20.5-60.0 [facility] Comment on above: Performed By: #### C BC #### [facility] [address] [place] [address] Dr. Cammy Cleaning MANUAL DIFF REQ NO Normal [facility] Comment on above: Performed By: #### C BC #### [facility] [address] [place] [address] Dr. Cammy Cleaning MCH (RBC) [Entitic mass] 27.6 pg Normal 26.7-34.0 [facility] Comment on above: Performed By: #### C BC #### [facility] [address] [place] [address] Dr. Cammy Cleaning MCHC (RBC) [Mass/Vol] 30.4 g/dL Normal 29.9-35.2 [facility] Comment on above: Performed By: #### C BC #### [facility] [address] [place] [address] Dr. Cammy Cleaning MCV (RBC) [Entitic vol] 90.7 fL Normal 81.0-99.0 [facility] Comment on above: Performed By: #### C BC #### [facility] [address] [place] [address] Dr. Cammy Cleaning MONO # 0.7 103/ul Normal 0.3-0.8 [facility] Comment on above: Performed By: #### C BC #### [facility] [address] [place] [address] Dr. Cammy Cleaning Monocytes/100 WBC (Bld) 7.0 % Normal 1.7-12.0 [facility] Comment on above: Performed By: #### C BC #### [facility] [address] [address] [address] Cammy Cleaning NEUT # 6.9 103/ul Critically high 1.4-6.5 [facility] Comment on above: Performed By: #### C BC #### [facility] [address] [address] [address] Cammy Cleaning Neutrophils/100 WBC (Bld) 65.6 % Normal 43.0-75.0 [facility] Comment on above: Performed By: #### C BC #### [facility] [address] [address] [address] Cammy Cleaning Platelet mean volume (Bld) [Entitic vol] 8.7 fL Critically low 9.5-13.5 [facility] Comment on above: Performed By: #### C BC #### [facility] [address] [place] [address] Dr. Cammy Cleaning PLT 166 103/ul Normal 150-450 [facility] Comment on above: Performed By: #### C BC #### [facility] [address] [address] [address] Cammy Cleaning RBC 5.51 106/ul Critically high 4.20-5.40 [facility] Comment on above: Performed By: #### C BC #### [facility] [address] [address] [address] Cammy Cleaning WBC 10.5 103/ul Normal 4.0-11.0 [facility] Comment on above: Performed By: #### C BC #### [facility] [address] [place] [address] Dr. Cammy Cleaning POINT OF CARE GLUCOSEon 05-29 Glucose [Mass/Vol] 134 mg/dL Critically high 74-106 [facility] Comment on above: Performed By: #### P OCGLUC #### [facility] [address] [place] [address] Dr. Cammy Cleaning PROF 14(COMP METB)on 023 Albumin [Mass/Vol] 3.0 g/dL Critically low 3.4-5.0 [facility] Comment on above: Performed By: #### C MP ####[facility] [address] [id number]. Cammy Black Albumin/Globulin [Mass ratio] 0.8 {ratio} Normal [facility] Comment on above: Performed By: #### C MP ####[facility] [address] [id number]. Monicaterri Cleaning ALP [Catalytic activity/Vol] 85 U/L Normal 46-116 [facility] Comment on above: Performed By: #### C MP ####[facility] [address] [address]Dr. Cammy Black ALT [Catalytic activity/Vol] 19 U/L Normal 14-59 [facility] Comment on above: Performed By: #### C MP ####[facility] [address] [address]Dr. Cammy Cleaning Anion gap [Moles/Vol] 6.9 mmol/L Normal [facility] Comment on above: Performed By: #### C MP ####[facility] [address] [address]Dr. Cammy Black AST [Catalytic activity/Vol] 18 U/L Normal 15-37 [facility] Comment on above: Performed By: #### C MP ####[facility] [address] [address]Dr. Cammy Cleaning Bilirubin [Mass/Vol] 0.6 mg/dL Normal 0.2-1.0 [facility] Comment on above: Performed By: #### C MP ####[facility] [address] [id number]. Cammy Cleaning Calcium [Mass/Vol] 9.4 mg/dL Normal 8.5-10.1 [facility] Comment on above: Performed By: #### C MP ####[facility] [address] [address]Dr. Cammy Cleaning Chloride [Moles/Vol] 99 mmol/L Normal 98-107 [facility] Comment on above: Performed By: #### C MP ####[facility] [address] [id number]. Cammy Cleaning CO2 [Moles/Vol] 37.8 mmol/L Critically high 21.0-32.0 [facility] Comment on above: Performed By: #### C MP ####[facility] [address] [address]Dr. Cammy Cleaning Creatinine [Mass/Vol] 0.85 mg/dL Normal 0.55-1.02 [facility] Comment on above: Performed By: #### C MP ####[facility] [address] [address]Dr. Cammy Cleaning EGFR-AF AFGHAN >60 Normal >=60 [facility] Comment on above: Performed By: #### C MP ####[facility] [address] [address]Dr. Cammy Cleaning EGFR-NON AF AFGHAN >60 Normal >=60 [facility] Comment on above: Performed By: #### C MP ####[facility] [address] [place], [place] [address]Dr. Cammy Cleaning Globulin (S) [Mass/Vol] 3.6 g/dL Normal [facility] Comment on above: Performed By: #### C MP ####[facility] [address] [place], [place] [address]Dr. Cammy Cleaning Glucose [Mass/Vol] 139 mg/dL Critically high 74-106 T [facility] Comment on above: Performed By: #### C MP ####[facility] [address] [place], [place] [address]Dr. Cammy Cleaning Potassium [Moles/Vol] 3.7 mmol/L Normal 3.5-5.1 [facility] Comment on above: Performed By: #### C MP ####[facility] [address] [place], [place] [address]Dr. Cammy Cleaning Protein [Mass/Vol] 6.6 g/dL Normal 6.4-8.2 [facility] Comment on above: Performed By: #### C MP ####[facility] [address] [place], [place] [address]DrNoreen Cleaning Sodium [Moles/Vol] 140 mmol/L Normal 136-145 [facility] Comment on above: Performed By: #### C MP ####[facility] [address] [address]Dr. Cammy Cleaning Urea nitrogen [Mass/Vol] 14.0 mg/dL Normal 7.0-18.0 [facility] Comment on above: Performed By: #### C MP ####[facility] [address] [address]Dr. Cammy Cleaning Urea nitrogen/Creatinine [Mass ratio] 16.5 mg/mg Normal [facility] Comment on above: Performed By: #### C MP ####[facility] [address] [address]DrNoreen Cleaning BNPon 06-07-2022 Natriuretic peptide B (Bld) [Mass/Vol] 117.0 pg/mL Normal <=900.0 [facility] Comment on above: Performed By: #### C BC #### [facility] [address] [address] [address] Cammy Cleaning CBC AUTO DIFFon 06-07-2022 BASO # 0.1 103/ul Normal 0.0-0.1 [facility] Comment on above: Performed By: #### C BC #### [facility] [address] [place] [address] Dr. Cammy Cleaning Basophils/100 WBC (Bld) 0.6 % Normal 0.2-2.0 [facility] Comment on above: Performed By: #### C BC #### [facility] [address] [address] [address] Cammy Cleaning EO # 0.6 103/ul Normal 0.0-0.7 [facility] Comment on above: Performed By: #### C BC #### [facility] [address] [place] [address] Dr. Cammy Cleaning Eosinophils/100 WBC (Bld) 5.8 % Normal 0.9-7.0 [facility] Comment on above: Performed By: #### C BC #### [facility] [address] [place] [address] Dr. Cammy Cleaning Erythrocyte distribution width (RBC) [Ratio] 14.6 % Normal 11.0-15.0 [facility] Comment on above: Performed By: #### C BC #### [facility] [address] [place] [address] Dr. Cammy Cleaning Hematocrit (Bld) [Volume fraction] 45.8 % Normal 36.0-48.0 [facility] Comment on above: Performed By: #### C BC #### [facility] [address] [place] [address] Dr. Cammy Cleaning Hemoglobin (Bld) [Mass/Vol] 14.4 g/dL Normal 12.0-16.0 [facility] Comment on above: Performed By: #### C BC #### [facility] [address] [place] [address] Dr. Cammy Cleaning IG # 0.18 10e3/ul Critically high 0.00-0.[address] [facility] Comment on above: Performed By: #### C BC #### [facility] [address] [place] [address] Dr. Cammy Cleaning IG % 1.7 % Critically high 0.0-0.5 [facility] Comment on above: Performed By: #### C BC #### [facility] [address] [place] [address] Dr. Cammy Cleaning LYMPH # 1.8 103/ul Normal 1.2-3.8 [facility] Comment on above: Performed By: #### C BC #### [facility] [address] [place] [address] Dr. Cammy Cleaning Lymphocytes/100 WBC (Bld) 16.1 % Critically low 20.5-60.0 [facility] Comment on above: Performed By: #### C BC #### [facility] [address] [place] [address] Dr. Cammy Cleaning MANUAL DIFF REQ NO Normal [facility] Comment on above: Performed By: #### C BC #### [facility] [address] [address] [address] Cammy Cleaning MCH (RBC) [Entitic mass] 27.7 pg Normal 26.7-34.0 [facility] Comment on above: Performed By: #### C BC #### [facility] [address] [place] [address] Dr. Cammy Cleaning MCHC (RBC) [Mass/Vol] 31.4 g/dL Normal 29.9-35.2 [facility] Comment on above: Performed By: #### C BC #### [facility] [address] [place] [address] Dr. Cammy Cleaning MCV (RBC) [Entitic vol] 88.1 fL Normal 81.0-99.0 [facility] Comment on above: Performed By: #### C BC #### [facility] [address] [place] [address] Dr. Cammy Cleaning MONO # 0.9 103/ul Critically high 0.3-0.8 [facility] Comment on above: Performed By: #### C BC #### [facility] [address] [place] [address] Dr. Cammy Cleaning Monocytes/100 WBC (Bld) 8.2 % Normal 1.7-12.0 [facility] Comment on above: Performed By: #### C BC #### [facility] [address] [place] [address] Dr. Cammy Cleaning NEUT # 7.3 103/ul Critically high 1.4-6.5 [facility] Comment on above: Performed By: #### C BC #### [facility] [address] [place] [address] Dr. Cammy Cleaning Neutrophils/100 WBC (Bld) 67.6 % Normal 43.0-75.0 [facility] Comment on above: Performed By: #### C BC #### [facility] [address] [place] [address] Dr. Cammy Cleaning Platelet mean volume (Bld) [Entitic vol] 8.8 fL Critically low 9.5-13.5 [facility] Comment on above: Performed By: #### C BC #### [facility] [address] [place], [place] [address] Dr. Cammy Cleaning PLT 169 103/ul Normal 150-450 [facility] Comment on above: Performed By: #### C BC #### [facility] [address] [address] [address] Cammy Cleaning RBC 5.20 106/ul Normal 4.20-5.40 [facility] Comment on above: Performed By: #### C BC #### [facility] [id number] Cammy Cleaning WBC 10.9 103/ul Normal 4.0-11.0 [facility] Comment on above: Performed By: #### C BC #### [facility] [address] [address] [address] Cammy Cleaning ECHOCARDIO M/2D COMPLETEon 0 06-07-2022 ECHOCARDIO M/2D COMPLETE Patient: MALCOLM CORRALES Exam Date: 06/07/2022 : 1960 Gender:F Ordering : DR. WILLEM HIDALGO . Admission #: [id number] Family : OMID MARTINS . Order #: [id number] CLICK HERE TO VIEW EXAM ECHOCARDIOGRAM REPORT [...] Arellano M.D. on 06/09/2022 at 10:48 Normal [facility] FREE T4on 06-07-2022 Free T4 [Mass/Vol] 1.21 ng/dL Normal 0.76-1.46 [facility] Comment on above: Performed By: #### C BC #### [facility] [address] [address] [address] Cammy Cleaning GLYCOHEMOGLOBIN A1Con 2022 ADA RECOMMENDATION SEE BELOW Normal [facility] Comment on above: Result Comment: ADA RECOMMENDED LIMIT 4.0 - 6.0 ADA THERAPEUTIC TARGET < 7.0 ACTION SUGGESTED > 7.0 Performed By: #### P OCGLUC #### [facility] [address] [address] [address] Cammy Cleaning Glucose [Mass/Vol] 171 mg/dL Normal [facility] Comment on above: Performed By: #### P OCGLUC #### [facility] [address] [address] [address] Cammy Cleaning HbA1c (Bld) [Mass fraction] 7.6 % Critically high 4.5-6.2 [facility] Comment on above: Performed By: #### P OCGLUC #### [facility] [address] [address] [address] Cammy Cleaning POINT OF CARE GLUCOSEon 05-29 Glucose [Mass/Vol] 141 mg/dL Critically high 74-106 [facility] Comment on above: Performed By: #### C BC #### [facility] [address] [address] [address] Cammy Cleaning Glucose [Mass/Vol] 161 mg/dL Critically high -106 [facility] Comment on above: Performed By: #### P OCGLUC ####[facility] [address] [address]Dr. Cammy Cleaning Glucose [Mass/Vol] 148 mg/dL Critically high -106 [facility] Comment on above: Performed By: #### P OCGLUC ####[facility] [address] [place], [place] [address]Dr. Cammy Cleaning PROF 14(COMP METB)on 023 Albumin [Mass/Vol] 2.7 g/dL Critically low 3.4-5.0 [facility] e [facility] Comment on above: Performed By: #### C MP #### [facility] [address] [address] [address] Cammy Cleaning Albumin/Globulin [Mass ratio] 0.8 {ratio} Normal [facility] Comment on above: Performed By: #### C MP #### [facility] [address] [address] [address] Cammy Cleaning ALP [Catalytic activity/Vol] 85 U/L Normal 46-116 [facility] Comment on above: Performed By: #### C MP #### [facility] [address] [address] [address] Cammy Cleaning ALT [Catalytic activity/Vol] 15 U/L Normal 14-59 [facility] Comment on above: Performed By: #### C MP #### [facility] [address] [address] [address] Cammy Cleaning Anion gap [Moles/Vol] 8.3 mmol/L Normal [facility] Comment on above: Performed By: #### C MP #### [facility] [address] [address] [address] Cammy Cleaning AST [Catalytic activity/Vol] 17 U/L Normal 15-37 [facility] Comment on above: Performed By: #### C MP #### [facility] [address] [address] [address] Cammy Cleaning Bilirubin [Mass/Vol] 0.6 mg/dL Normal 0.2-1.0 [facility] Comment on above: Performed By: #### C MP #### [facility] [address] [address] [address] Cammy Cleaning Calcium [Mass/Vol] 8.9 mg/dL Normal 8.5-10.1 [facility] Comment on above: Performed By: #### C MP #### [facility] Laboratory [address] [address] [address] Cammy Cleaning Chloride [Moles/Vol] 102 mmol/L Normal 98-107 [facility] Comment on above: Performed By: #### C MP #### [facility] Laboratory [address] [address] [address] Cammy Cleaning CO2 [Moles/Vol] 34.6 mmol/L Critically high 21.0-32.0 [facility] Comment on above: Performed By: #### C MP #### [facility] Laboratory [address] [address] [address] Cammy Cleaning Creatinine [Mass/Vol] 0.80 mg/dL Normal 0.55-1.02 [facility] Comment on above: Performed By: #### C MP #### [facility] Laboratory [address] [place] [address] Dr. Cammy Cleaning EGFR-AF AFGHAN >60 Normal >=60 [facility] Comment on above: Performed By: #### C MP #### [facility] Laboratory [address] [address] [address] Cammy Cleaning EGFR-NON AF AFGHAN >60 Normal >=60 [facility] Comment on above: Performed By: #### C MP #### [facility] [address] [address] [address] Cammy Cleaning Globulin (S) [Mass/Vol] 3.2 g/dL Normal [facility] Comment on above: Performed By: #### C MP #### [facility] [address] [address] [address] Cammy Cleaning Glucose [Mass/Vol] 128 mg/dL Critically high 74-106 [facility] Comment on above: Performed By: #### C MP #### [facility] [address] [address] [address] Cammy Cleaning Potassium [Moles/Vol] 3.9 mmol/L Normal 3.5-5.1 [facility] Comment on above: Performed By: #### C MP #### [facility] [address] [address] [address] Cammy Cleaning Protein [Mass/Vol] 5.9 g/dL Critically low 6.4-8.2 [facility] Comment on above: Performed By: #### C MP #### [facility] [address] [address] [address] Cammy Cleaning Sodium [Moles/Vol] 141 mmol/L Normal 136-145 [facility] Comment on above: Performed By: #### C MP #### [facility] [address] [address] [address] Cammy Cleaning Urea nitrogen [Mass/Vol] 11.0 mg/dL Normal 7.0-18.0 [facility] Comment on above: Performed By: #### C MP #### [facility] [address] [address] [address] Cammy Cleaning Urea nitrogen/Creatinine [Mass ratio] 13.8 mg/mg Normal [facility] Comment on above: Performed By: #### C MP #### [facility] [address] [address] [address] Cammy Cleaning TSHon 06-07-2022 TSH 2.839 uIU/mL Normal 0.358-3.740 [facility] Comment on above: Performed By: #### T SH ####[facility] [address] [address]Dr. Cammy Cleaning ACETAMINOPHENon 06-06-2022 Acetaminophen [Mass/Vol] ug/mL Normal 10.0-30.0 [facility] Comment on above: Performed By: #### A CET, SALYC, ETH ####[facility] [address] [id number] Cleaning BLOOD GASES BTYon 06-06-2022 02 MODE NASAL CANNULA Normal [facility] Comment on above: Performed By: #### A BG ####[facility] [address] [address]DrNoreen Cleaning ALLENS TEST Positive Normal [facility] Comment on above: Performed By: #### A BG ####[facility] [address] [address]Dr. Cammy Cleaning Base excess Calc (Bld) [Moles/Vol] 9.4 mmol/L Critically high -2.0-2.0 [facility] Comment on above: Performed By: #### A BG ####[facility] [address] [address]Dr. Cammy Cleaning BIPAP PRESSURE Normal [facility] Comment on above: Performed By: #### A BG ####[facility] [address] [address]Dr. Cammy Cleaning CPAP Normal [facility] Comment on above: Performed By: #### A BG ####[facility] [address] [address]Dr. Cammy Cleaning FIO2 Normal [facility] Comment on above: Performed By: #### A BG ####[facility] [address] [address]Dr. Cammy Cleaning HCO3 (Bld) [Moles/Vol] 35.1 mmol/L Critically high 22.0-26.0 [facility] Comment on above: Performed By: #### A BG ####[facility] [address] [address]Dr. Cammy Cleaning LPM 2 Normal [facility] Comment on above: Performed By: #### A BG ####[facility] [address] [address]Dr. Cammy Cleaning MINUTE VOLUME Normal [facility] Comment on above: Performed By: #### A BG ####[facility] [address] [address]Dr. Cammy Cleaning Oxygen (Bld) [Partial pressure] 59.8 mm[Hg] Critically low 80.0-100.0 [facility] Comment on above: Performed By: #### A BG ####[facility] [address] [address]Dr. Cammy Cleaning Oxygen saturation in Blood 92.4 % Critically low 95.0-100.0 [facility] Comment on above: Performed By: #### A BG ####[facility] [address] [address]Dr. Cammy Cleaning PCO2 63.7 mmHg Critically high 35.0-45.0 [facility] Comment on above: Performed By: #### A BG ####[facility] [address] [address]Dr. Cammy Cleaning PEEP [facility] Comment on above: Performed By: #### A BG ####[facility] [address] [address]Dr. Cammy Cleaning pH (Bld) 7.349 [pH] Critically low 7.350-7.450 [facility] Comment on above: Performed By: #### A BG ####[facility] [address] [address]. Cammy Cle[address] [facility] Comment on above: Performed By: #### A BG ####[facility] [address] [place], [place] [address]Dr. Cammy Cleaning PS [facility] Comment on above: Performed By: #### A BG ####[facility] [address] [address]Dr. Cammy Cleaning PUNCTURE SITE LB Normal [facility] Comment on above: Performed By: #### A BG ####[facility] [address] [address]Dr. Cammy Cleaning RATE [facility] Comment on above: Performed By: #### A BG ####[facility] [address] [place], [place] [address]Dr. Cammy Cleaning VENT MODE Normal [facility] Comment on above: Performed By: #### A BG ####[facility] [address] [place], [place] [address]Dr. Cammy Cleaning [place] [facility] Comment on above: Performed By: #### A BG ####[facility] [address] [place], [place] [address]Dr. Cammy Cleaning BNPon 06-06-2022 Natriuretic peptide B (Bld) [Mass/Vol] 81.0 pg/mL Normal <=900.0 [facility] Comment on above: Performed By: #### C BC #### [facility] Laboratory [address] [address] [address] Cammy Cleaning CARDIAC PILLO 3-6on 3 CK [Catalytic activity/Vol] 205 U/L Critically high 26-192 [facility] Comment on above: Performed By: #### C MREP #### [facility] Laboratory [address] [place] [address] Dr. Cammy Cleaning CK.MB [Mass/Vol] 0.77 ng/mL Normal <=3.60 [facility] Comment on above: Performed By: #### C MREP #### [facility] [address] [place] [address] Dr. Cammy Cleaning HSTROP 7.5 pg/mL Normal 4.0-51.3 [facility] Comment on above: Result Comment: CUT- OFF POINTS HAVE BEEN ESTABLISHED BASED ON THE FOURTH UNIVERSAL DEFINITIONS OF MYOCARDIAL INFARCTION. THE UPPER REFERENCE LIMIT (URL) OF TROPONIN, DEFINED THE 99TH PERCENTILE OF cTnI DISTRIBUTION IN A REFERENCE POPULATION, HAS BEEN CONFIRMED THE DECISION THRESHOLD FOR MD DIAGNOSIS. Performed By: #### C MREP #### [facility] [address] [place] [address] Dr. Cammy Cleaning CK [Catalytic activity/Vol] 220 U/L Critically high 26-192 [facility] Comment on above: Performed By: #### C BC #### [facility] [address] [place] [address] Dr. Cammy Cleaning CK.MB [Mass/Vol] 0.86 ng/mL Normal <=3.60 [facility] Comment on above: Performed By: #### C BC #### [facility] [address] [place] [address] Dr. Cammy Cleaning HSTROP 8.7 pg/mL Normal 4.0-51.3 [facility] Comment on above: Result Comment: CUT- OFF POINTS HAVE BEEN ESTABLISHED BASED ON THE FOURTH UNIVERSAL DEFINITIONS OF MYOCARDIAL INFARCTION. THE UPPER REFERENCE LIMIT (URL) OF TROPONIN, DEFINED THE 99TH PERCENTILE OF cTnI DISTRIBUTION IN A REFERENCE POPULATION, HAS BEEN CONFIRMED THE DECISION THRESHOLD FOR MD DIAGNOSIS. Performed By: #### C BC #### [facility] [address] [address] [address] Cammy Cleaning CBC AUTO DIFFon 06-06-2022 BASO # 0.1 103/ul Normal 0.0-0.1 [facility] Comment on above: Performed By: #### C BC #### [facility] [address] [address] [address] Cammy Cleaning Basophils/100 WBC (Bld) 0.7 % Normal 0.2-2.0 [facility] Comment on above: Performed By: #### C BC #### [facility] [address] [address] [address] Cammy Cleaning EO # 0.6 103/ul Normal 0.0-0.7 [facility] Comment on above: Performed By: #### C BC #### [facility] [address] [place] [address] Dr. Cammy Cleaning Eosinophils/100 WBC (Bld) 5.4 % Normal 0.9-7.0 [facility] Comment on above: Performed By: #### C BC #### [facility] [address] [place] [address] Dr. Cammy Cleaning Erythrocyte distribution width (RBC) [Ratio] 14.6 % Normal 11.0-15.0 [facility] Comment on above: Performed By: #### C BC #### [facility] [address] [place] [address] Dr. Cammy Cleaning Hematocrit (Bld) [Volume fraction] 47.2 % Normal 36.0-48.0 [facility] Comment on above: Performed By: #### C BC #### [facility] [address] [address] [address] Cammy Cleaning Hemoglobin (Bld) [Mass/Vol] 15.4 g/dL Normal 12.0-16.0 [facility] Comment on above: Performed By: #### C BC #### [facility] [address] [address] [address] Cammy Cleaning IG # 0.19 10e3/ul Critically high 0.00-0.[address] [facility] Comment on above: Performed By: #### C BC #### [facility] [address] [address] [address] Cammy Cleaning IG % 1.7 % Critically high 0.0-0.5 [facility] Comment on above: Performed By: #### C BC #### [facility] [address] [place] [address] Dr. Cammy Cleaning LYMPH # 1.8 103/ul Normal 1.2-3.8 [facility] Comment on above: Performed By: #### C BC #### [facility] [address] [place] [address] Dr. Cammy Cleaning Lymphocytes/100 WBC (Bld) 16.0 % Critically low 20.5-60.0 [facility] Comment on above: Performed By: #### C BC #### [facility] [address] [place] [address] Dr. Cammy Cleaning MANUAL DIFF REQ NO Normal [facility] Comment on above: Performed By: #### C BC #### [facility] [address] [place] [address] Dr. Cammy Cleaning MCH (RBC) [Entitic mass] 27.7 pg Normal 26.7-34.0 [facility] Comment on above: Performed By: #### C BC #### [facility] [address] [place] [address] Dr. Cammy Cleaning MCHC (RBC) [Mass/Vol] 32.6 g/dL Normal 29.9-35.2 [facility] Comment on above: Performed By: #### C BC #### [facility] [address] [place] [address] Dr. Cammy Cleaning MCV (RBC) [Entitic vol] 85.0 fL Normal 81.0-99.0 [facility] Comment on above: Performed By: #### C BC #### [facility] [address] [place] [address] Dr. Cammy Cleaning MONO # 0.8 103/ul Normal 0.3-0.8 [facility] Comment on above: Performed By: #### C BC #### [facility] [address] [address] [address] Cammy Cleaning Monocytes/100 WBC (Bld) 6.8 % Normal 1.7-12.0 [facility] Comment on above: Performed By: #### C BC #### [facility] [address] [address] [address] Cammy Cleaning NEUT # 7.8 103/ul Critically high 1.4-6.5 [facility] Comment on above: Performed By: #### C BC #### [facility] [address] [address] [address] Cammy Cleaning Neutrophils/100 WBC (Bld) 69.4 % Normal 43.0-75.0 [facility] Comment on above: Performed By: #### C BC #### [facility] [address] [place] [address] Dr. Cammy Cleaning Platelet mean volume (Bld) [Entitic vol] 9.0 fL Critically low 9.5-13.5 [facility] Comment on above: Performed By: #### C BC #### [facility] [address] [address] [address] Cammy Cleaning PLT 162 103/ul Normal 150-450 [facility] Comment on above: Performed By: #### C BC #### [facility] [address] [place] [address] Dr. Cammy Cleaning RBC 5.55 106/ul Critically high 4.20-5.40 [facility] Comment on above: Performed By: #### C BC #### [facility] [address] [place] [address] Dr. Cammy Cleaning WBC 11.3 103/ul Critically high 4.0-11.0 [facility] Comment on above: Performed By: #### C BC #### [facility] [address] [place] [address] ABD/PELV W CONon [...] by: Christo SARAVIA Date: 2022-06-06 02:29 Normal [facility] CT CSPINE WO CONon 3 CT [...] WILL HOGAN Date: 2022-06-06 02:09 Normal [facility] CT HEAD WO CONon 06-06-2022 CT [...] Christo SARAVIA Date: 2022-06-06 02:07 Normal [facility] CT LSPINE WO CONon 3 CT LSPINE WO CON EXAM: CT LSPINE [...] Christo SARAVIA Date: 2022-06-06 02:29 Normal [facility] CTA ABD/PELVIS WO W CONon CTA [...] by: ANISH JACKSON Date: 2022-06-06 04:15 Normal [facility] Covid-19 PCR (CVDTBH)on SARS-CoV-2 (COVID-19) RNA JOSE L+probe Ql (Unsp spec) Not detected Normal NOT DETECTED [facility] Comment on above: Result Comment: When [...] for this test is supported by the [employer]'s declaration that [...] used). Performed By: #### C BC #### [facility] [address] [place] [address] Dr. Cammy Cleaning DRUG SCREEN RAPID (URINE)on 06-06-2022 AMP Negative Normal NEGATIVE [facility] Comment on above: Performed By: #### D FLOYD, ERUR #### [facility] [address] [place] [address] Dr. Cammy Cleaning BAR Negative Normal NEGATIVE [facility] Comment on above: Performed By: #### D FLOYD, ERUR #### [facility] [address] [place] [address] Dr. Cammy Cleaning BUP Negative Normal NEGATIVE [facility] Comment on above: Performed By: #### D FLOYD, ERUR #### [facility] [address] [place] [address] Dr. Cammy Cleaning BZO Negative Normal NEGATIVE [facility] Comment on above: Performed By: #### D FLOYD, ERUR #### [facility] [address] [place] [address] Dr. Cammy Cleaning JEM Negative Normal NEGATIVE [facility] Comment on above: Performed By: #### D FLOYD, ERUR #### [facility] [address] [place] [address] Dr. Cammy Cleaning CUT-OFFS SEE BELOW Normal [facility] Comment on above: Result Comment: AMP (Amphetamine): 500ng/mL, BAR (Barbituates): 200 ng/mL, BZO (Benzodiazepines): 150 ng/mL, BUP (Buprenorphine): 10 ng/mL, JEM (Cocaine): 150 ng/mL, mAMP (Methamphetamine): 500 ng/mL, MTD (Methadone): 200 ng/mL, OPI (Opiates): 100 ng/mL, OXY (Oxycodone): 100 ng/mL, PCP (Phencyclidine): 25 ng/mL, PPX (Propoxyphene): 300 ng/mL, THC (Cannabinoids): 50 ng/mL, TCA (Trycyclic Antidepressants): 300 ng/mL Performed By: #### Mayda BARRIENTOS, ERUR #### [facility] [address] [place] [address] Dr. Cammy Cleaning DRUG CUT HEADER DRUG CLASS TEST SYSTEM CUT-OFF CONCENTRATIONS ARE FOLLOWS: Normal [facility] Comment on above: Performed By: #### D FLOYD, ERUR #### [facility] [address] [place] [address] Dr. Cammy Cleaning mAMP Negative Normal NEGATIVE [facility] Comment on above: Performed By: #### Mayda BARRIENTOS, ERUR #### [facility] [address] [place] [address] Dr. Cammy Cleaning MTD Negative Normal NEGATIVE [facility] Comment on above: Performed By: #### D FLOYD, ERUR #### [facility] [address] [place] [address] Dr. Cammy Cleaning OPI Positive Abnormal NEGATIVE [facility] Comment on above: Performed By: #### D FLOYD, ERUR #### [facility] [address] [place] [address] Dr. Cammy Cleaning OXY Negative Normal NEGATIVE [facility] Comment on above: Performed By: #### Mayda BARRIENTOS, ERUR #### [facility] [address] [address] [address] Cammy Cleaning PCP Negative Normal NEGATIVE [facility] Comment on above: Performed By: #### D FLOYD, ERUR #### [facility] [address] [place] [address] Dr. Cammy Cleaning PPX Negative Normal NEGATIVE [facility] Comment on above: Performed By: #### D FLOYD, ERUR #### [facility] [address] [place] [address] Dr. Cammy Cleaning TCA Negative Normal NEGATIVE [facility] Comment on above: Performed By: #### D FLOYD, ERUR #### [facility] [address] [place] [address] Dr. Cammy Cleaning THC Negative Normal NEGATIVE [facility] Comment on above: Performed By: #### D FLOYD, ERUR #### [facility] [address] [place] [address] Dr. Cammy Cleaning ER URINE PROFILEon 3 Bilirubin Ql (U) Negative Normal NEGATIVE [facility] Comment on above: Performed By: #### D FLOYD, ERUR #### [facility] [address] [place] [address] Dr. Cammy Cleaning Clarity (U) CLEAR Normal CLEAR [facility] Comment on above: Performed By: #### D FLOYD, ERUR #### [facility] [address] [place] [address] Dr. Cammy Cleaning Color (U) YELLOW Normal YELLOW [facility] Comment on above: Performed By: #### D FLOYD, ERUR #### [facility] [address] [place] [address] Dr. Cammy Cleaning ERUAHD A micrscopic examination will be performed if indicated. Normal [facility] Comment on above: Performed By: #### D FLOYD, ERUR #### [facility] [address] [place] [address] Dr. Cammy Cleaning Glucose Ql (U) >1000 Abnormal NEGATIVE [facility] Comment on above: Performed By: #### D FLOYD, ERUR #### [facility] [address] [address] [address] Cammy Cleaning Hemoglobin Ql (U) Negative Normal NEGATIVE [facility] Comment on above: Performed By: #### D FLOYD, ERUR #### [facility] [address] [address] [address] Cammy Cleaning Ketones Ql (U) Negative Normal NEGATIVE [facility] Comment on above: Performed By: #### D FLOYD, ERUR #### [facility] [address] [place] [address] Dr. Cammy Cleaning LEUKOCYTES Negative Normal NEGATIVE [facility] Comment on above: Performed By: #### D FLOYD, ERUR #### [facility] [address] [place] [address] Dr. Cammy Cleaning Nitrite Ql (U) Negative Normal NEGATIVE [facility] Comment on above: Performed By: #### Mayda BARRIENTOS, ERUR #### [facility] [address] [place] [address] Dr. Cammy Cleaning pH (U) 5.0 [pH] Normal 5-9 [facility] Comment on above: Performed By: #### Mayda BARRIENTOS, ERUR #### [facility] [address] [place] [address] Dr. Cammy Cleaning SPEC GRAVITY 1.010 Normal 1.005-<=1.025 [facility] Comment on above: Performed By: #### Mayda BARRIENTOS, ERUR #### [facility] [address] [place] [address] Dr. Cammy Cleaning UA PROTEIN TRACE Normal NEGATIVE/ TRACE [facility] Comment on above: Performed By: #### Mayda BARRIENTOS, ERUR #### [facility] [address] [place] [address] Dr. Cammy Cleaning UR MICRO IND NOT INDICATED Normal [facility] Comment on above: Performed By: #### Mayda BARRIENTOS, ERUR #### [facility] [address] [place] [address] Dr. Cammy Cleaning Urobilinogen Qn (U) 0.2 {Flory'U}/dL Normal 0.2 - 1. 0 [facility] Comment on above: Performed By: #### D BERNARDRPMayda, ERUR #### [facility] [address] [address] [address] Cammy Cleaning ETHANOL (BLD ALC)on 06-06-19 23 ALC NOTE NOTE: 80 mg/dl is th e legal limit for a blood alcohol level Normal [facility] Comment on above: Performed By: #### A CARLOS STEVE, KAILEY ####[facility] [address] [id number]. Cammy Cleaning Ethanol [Mass/Vol] mg/dL Normal [facility] Comment on above: Performed By: #### A CARLOS STEVE, KAILEY ####[facility] [address] [address]Dr. Cammy Cleaning POINT OF CARE GLUCOSEon Glucose [Mass/Vol] 180 mg/dL Critically high -106 [facility] Comment on above: Performed By: #### P OCGLUC #### [facility] [address] [address] [address] Cammy Cleaning Glucose [Mass/Vol] 133 mg/dL Critically high -[address] [place] [address] Comment on above: Performed By: #### C BC #### [facility] [address] [address] [address] Cammy Cleaning Glucose [Mass/Vol] 201 mg/dL Critically high -106 [facility] Comment on above: Performed By: #### C BC #### [facility] [address] [address] [address] Cammy Cleaning Glucose [Mass/Vol] 112 mg/dL Critically high -106 [facility] Comment on above: Performed By: #### P OCGLUC #### [facility] [address] [address] [address] Cammy Cleaning PROF CHEM 8 (BAS METB)on Anion gap [Moles/Vol] 6.7 mmol/L Normal [facility] Comment on above: Performed By: #### C BC #### [facility] [address] [address] [address] Cammy Cleaning Calcium [Mass/Vol] 8.7 mg/dL Normal 8.5-10.1 [facility] Comment on above: Performed By: #### C BC #### [facility] [address] [address] [address] Cammy Cleaning Chloride [Moles/Vol] 102 mmol/L Normal 98-107 [facility] Comment on above: Performed By: #### C BC #### [facility] [address] [address] [address] Cammy Cleaning CO2 [Moles/Vol] 35.6 mmol/L Critically high 21.0-32.0 [facility] Comment on above: Performed By: #### C BC #### [facility] [address] [place] [address] Dr. Cammy Cleaning Creatinine [Mass/Vol] 0.93 mg/dL Normal 0.55-1.02 [facility] Comment on above: Performed By: #### C BC #### [facility] [address] [place] [address] Dr. Cammy Cleaning EGFR-AF AFGHAN >60 Normal >=60 [facility] Comment on above: Performed By: #### C BC #### [facility] [address] [place] [address] Dr. Cammy Cleaning EGFR-NON AF AFGHAN >60 Normal >=60 [facility] Comment on above: Performed By: #### C BC #### [facility] [address] [place] [address] Dr. Cammy Cleaning Glucose [Mass/Vol] 169 mg/dL Critically high 74-106 [facility] Comment on above: Performed By: #### C BC #### [facility] [address] [address] [address] Cammy Cleaning Potassium [Moles/Vol] 4.3 mmol/L Normal 3.5-5.1 [facility] Comment on above: Performed By: #### C BC #### [facility] [address] [place] [address] Dr. Cammy Cleaning Sodium [Moles/Vol] 140 mmol/L Normal 136-145 [facility] Comment on above: Performed By: #### C BC #### [facility] [address] [place], [place] [address] Dr. Cammy Cleaning Urea nitrogen [Mass/Vol] 15.0 mg/dL Normal 7.0-18.0 [facility] Comment on above: Performed By: #### C BC #### [facility] [address] [place], [place] [address] Dr. Cammy Cleaning Urea nitrogen/Creatinine [Mass ratio] 16.1 mg/mg Normal [facility] Comment on above: Performed By: #### C BC #### [facility] [id number] Cammy Cleaning SALICYLATEon 06-06-2022 SALICYLATE 1.6 mg/dL Normal <=19.9 [facility] Comment on above: Performed By: #### A CARLOS STEVE, ETH ####[facility] [address] [place], [place] [address]FkDr. Cammy Cleaning XR CHEST 1 Von 06-06-2022 [...] by: CELESTE LUNA Date: 2022-06-06 02:58 Normal [facility] MRI KNEE LT WO CONon 022 MRI KNEE LT WO CON EXAMINATION: [...] by: BURT FIGUEROA Date: 2022-05-10 15:59 Normal [facility] Progress Noteson 01-25-2022 Linux Admin Authentication Interface Message Text EMERGENCY TRIAGE, TREAT AND TRANSPORT (ET3) DOCUMENTATION OF TELEHEALTH VISIT Date / Time: 01/14/2022729 Name: Malcolm Corrales : 1960 SSN: (Not on file) EMS Agency: [facility] [] Verbal consent obtained [] Implied consent - patient with potential emergency medical condition requiring assessment of capacity to refuse treatment and/or transport VITAL SIGNS: see flowsheet documentation Reason for Telehealth Visit: Chief Complaint Patient presents with Fall History of Present Ilness: 61 yo female who tripped over her small dog in the [facility]. EMS called for lift assist. [...] Completed by: Tyler Ingram DO Normal [employer] [facility] XR CSPINE 2_3 VIEWSon 2021 XR [...] CHRISTEN BAKER Date: 2022-01-04 19:14 Normal [facility] CT SINUSES WO CONon 11-23-19 22 [...] by: ANISH ROJO Date: 2021-11-22 13:29 Normal [facility] Vital Signs Date Time Vital Sign [...] Date Encounter Type Care Provider Facility Start: 12-06-2023 End: 12-06-2023 ambulatory ERIN VANG Not Available Start: 11-28-2023 End: 11-28-2023 ambulatory SWATHI BACA Not Available Start: 10-04-2023 End: 10-04-2023 ambulatory TYLER ESTRADA Not Available Start: 09-05-2023 End: 09-05-2023 ambulatory ERIN VANG Not Available Start: 07-05-2023 Chart abstracting Erin solitario PA Work Phone: [facility] Start: 05-17-2023 End: 05-17-2023 ambulatory ERIN VANG Not Available Start: 05-09-2023 ambulatory Pratik Ramos acility:[facility] Start: 09-01-2022 ambulatory NARENDRANATH LAKSHMIPATHY . Facility:[facility] Start: 08-23-2022 End: 08-23-2022 ambulatory NARENDRANATH LAKSHMIPATHY . Facility:[facility] Start: 07-28-2022 End: 07-29-2022 ambulatory NARENDRANATH LAKSHMIPATHY . Facility:[facility] Start: 07-26-2022 End: 07-27-2022 ambulatory NARENDRANATH LAKSHMIPATHY . Facility: Start: 07-11-2022 End: 07-12-2022 ambulatory CHRISTEN BAKER Facility:[facility] Start: 06-06-2022 End: 06-08-[address] JER RIZO Facility:[facility] Start: 05-10-2022 End: 05-11-2022 ambulatory MR TYLER ESTRADA . Facility:[facility] Start: 01-25-2022 End: 02-02-2022 ambulatory UNKNOWN PROVIDER [facility] Start: 01-14-2022 End: 01-14-2022 ambulatory [facility] [place] [facility] Triage, Treat and Transport Start: 01-14-2022 End: 01-14-2022 Emergency department patient visit [facility] [place] Emergency Triage, Treat and Transport Comment on above: Arrived Start: 01-04-2022 End: 01-05-[address] JER RIZO Facility:[facility] Start: 11-22-2021 End: 11-23-[address] ERIN VANG Facility:[facility] Procedures Date Procedure Procedure Detail Performing Clinician Start: 05-17-2023 Mammography Erin KINGSLEY Work Phone: Start: 11-16-2015 Colonoscopy Erin KINGSLEY Work Phone: Plan of Treatment Date Care Activity Detail Author Start: 11-15-2025 Screening for malign ant neoplasm of colon [facility] Start: 01-26-2025 Glaucoma screening Diabetes: R etinopathy Screening [facility] Start: 05-17-2024 Screening for malign ant neoplasm of breast Mammogram [facility] Start: 03-23-2024 Urine screening for protein Diabetes: Urine Protein Screening [facility] Start: 03-22-2024 Medicare Annual Well ness (AWV) Medicare Annual Wellness (AWV) [facility] Start: 07-18-2023 End: 07-18-2023 Patient encounter procedure 07/18/2023 2:15 PM EST Office Visit [facility] [address] [place] [phone] Swathi Baca DO [address] [place] [address] [facility] Start: 07-05-2023 End: 07-05-2023 Patient encounter procedure 07/05/2023 2:00 PM EST Office Visit [facility] [address] [facility] [address] [place] [id number] Erin Vang PA [address] [facility] [address] [place] [address] [facility] Start: 06-22-2023 Hemoglobin A1c measurement Diabetes: Hemoglobin A1C [facility] Start: 02-26-2022 Influenza vaccination Influenza Vacc ine [facility]) [facility] Start: 2011 Measurement of occul t blood in single stool specimen FIT [facility] Start: 2011 Screening for malign ant neoplasm of breast Mammography [facility] Start: 2011 Screening for malign ant neoplasm of colon CRC Screening [facility] Start: 2011 Shingles (RZV) Vacci ne (1 of 2) Shingles (RZV) Vaccine (1 of 2) [facility] Start: 2006 Cholesterol [Mass/vo lume] in Serum or Plasma [facility]olesterol [facility] Start: 1991 Screening for malign ant neoplasm of cervix [facility] Start: 1982 Screening for malign ant neoplasm of cervix Pap Smear [facility] Start: 1979 Hepatitis C screening Hepatitis C An tibody [facility] [place] Start: 1979 Tetanus + diphtheria + acellular pertussis vaccine (product) Tdap Booster [facility] Start: 1976 HIV screening HIV Test [facility] Start: 1961 COVID-19 Vaccine (#1) COVID-19 Vacci ne (#1) [facility] Start: 1961 Screening for malign ant neoplasm of colon [facility] [place] Immunizations Immunization Date Immunization Notes Care Provider Fa cility 06-13-2022 Pneumococcal Conjuga te PCV 20 Erin KINGSLEY Work Phone: [facility] 03-31-2022 Influenza, injectabl e, Madin [place] Canine Kidney, preservative free, quadrivalent Erin KINGSLEY Work Phone: [facility] 03-24-2021 influenza, injectabl e, quadrivalent, contains preservative Erin Hemmer PA Work Phone: [facility] 03-10-2020 Influenza, injectabl e, Madin [place] Canine Kidney, preservative free, quadrivalent Erin Hemmer PA Work Phone: [facility] 03-12-2019 influenza, injectabl e, madin [place] canine kidney, preservative free Erin Hemmer PA Work Phone: [facility] 04-06-2018 Influenza, injectabl e, Madin [place] Canine Kidney, preservative free, quadrivalent Erin Hemmer PA Work Phone: [facility] 02-21-2017 pneumococcal polysaccharide vaccine, 23 valent Erin Hemmer PA Work Phone: [facility] 02-21-2017 seasonal influenza, intradermal, preservative free Erin Hemmer PA Work Phone: [facility] 04-19-2016 influenza, injectabl e, quadrivalent, preservative free Erin Hemmer PA Work Phone: [facility] 02-04-2015 seasonal influenza, intradermal, preservative free Erin Hemmer PA Work Phone: [facility] 03-25-2008 seasonal influenza, intradermal, preservative free Erin Hemmer PA Work [facility] Payers Date Payer Category Payer Unknown [id number] 2022 Self-pay 2022 Medicare [employer] MEDICAR E [employer]ICARE [id number] 2022-Present [address] [address] [place] [address] [id number] 2022 Unknown SP/UNINSURED PEN DING FINANCIAL PROGRAM EVALUATION 9 2022-Present [phone] [address] [place] [address] Other [id number] 2022 Unknown 9 2021 Unknown [id number] 1960 Unknown [id number] 1960 Unknown [id number] 2.16.840.1.004975.3.579.2.593 1960 Unknown [id number] 2.16.840.1.829443.3.579.2.593 1960 Unknown [id number] 2.16.840.1.258745.3.579.2.593 1961 Unknown [id number] 2.16.840.1.176353.3.579.2.593 1961 Unknown [id number] 2.16.840.1.516176.3.579.2.593 1961 Unknown [id number] 2.16.840.1.156417.3.579.2.593 1961 Unknown [id number] 2.16.840.1.422593.3.579.2.593 1961 Unknown [id number] 2.16.840.1.235188.3.579.2.593 1961 Unknown [id number] 2.16.840.1.072152.3.579.2.593 1960 Unknown [id number] 2.16.840.1.017523.3.579.2.125 9 1960 Unknown [id number] 2.16.840.1.184949.3.579.2.125 9 1960 Unknown [id number] 2.16.840.1.614625.3.579.2.125 9 1960 Unknown [id number] 2.16.840.1.115927.3.579.2.125 9 1960 Unknown [id number] 2.16.840.1.416074.3.579.2.125 9 1960 Unknown [id number] 2.16.840.1.937865.3.579.2.125 9 Unknown [id number] 2.16.840.1.417003.3.579.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 stat [facility] Tobacco smoking consumption unknown [facility] Start: 1960 Sex Assigned At Not on file [facility] Start: 01-02-2023 Tobacco smoking stat [facility] Never smoked tobacco [facility] Start: 01-02-2023 Tobacco use and exposure Smokeless t obacco non-user [facility] Start: 03-22-2023 Alcohol intake Ex-drinker (finding) [facility] Start: 03-22-2023 History of Social function [facility] Start: 03-22-2023 Tobacco use panel [facility] Start: 01-03-2023 Alcohol Comment Caffeine intak e: 1-2 cups per day coffee, tea [facility] Start: 1960 Sex Assigned At Female [facility] Start: 12-27-2022 Gender identity Identifies as female gender (finding) [facility] Equipment Procedure Code Equipment Code Equipment Origin al Text Equipment Identifier Dates Check blood gluc ose daily [id number] Start: 03-22-2023 End: 03-21-2024 1 each in the morning. Check blood glucose daily.. [id number] Start: 03-22-2023 Consultation note 07-26-2022 Note Date [...] purpose. I have decreased the use of Ferney from q. 6 hours to q.i.d., 5 mg pills, to be taken as tolerated, and to increase the baclofen 10 mg pill, one pill t.i.d. also as tolerated. Went over the details of the procedure with the patient. All her questions were answered. She agrees to proceed with the outlined plan. [facility] Clinical Note 06-06-2022 Note Date & [...] by: BURT FIGUEROA Date: 2022-06-06 13:36 [facility] History of Present illness Narrative 01-25-2022 Tyler Ingram DO - 01/25/2022 11:40 AM EDT Note Date & Type Note Facility 01-25-2022 History of Presen t illness Narrative Images from the original note were not included. EMERGENCY TRIAGE, TREAT AND TRANSPORT (ET3) DOCUMENTATION OF TELEHEALTH VISIT Date / Time: 01/14/2022729 Name: Malcolm Corrales : 1960 SSN: (Not on file) EMS Agency: [facility] [] Verbal consent obtained [] Implied consent - patient with potential emergency medical condition requiring assessment of capacity to refuse treatment and/or transport VITAL SIGNS: see flowsheet documentation Reason for Telehealth Visit: Chief Complaint Patient presents with Fall History of Present Ilness: 61 yo female who tripped over her small dog in the [facility]. EMS called for lift assist. [...] and content) DATE CREATED AUTHOR 02/03/2022 [employer] [facility] DATE CREATED AUTHOR AUTHOR'S ORGANIZ ATION 08/31/2022 [facility] DATE CREATED AUTHOR AUTHOR'S ORGANIZ ATION 08/04/2023 [facility] DATE CREATED AUTHOR AUTHOR'S ORGANIZ ATION 12/13/2023 [facility] Care Teams (unrecognized sec tion and content) Manager Channel Relationship Specialty Start Date End Date Jer Rizo MD [address] [facility] [address] [place] [address] PCP - General Internal Medicine 01/03/23 Jer Rizo MD [address] [facility] [address] [place] [address] PCP - Devoted 05/29/23 FOR RECORDS PERTAINING [...] BE BASED ON THE PRIMARY CLINICAL RECORDS. [employer] provides no warranty or guarantee of the accuracy or completeness of information in this document.
== END 2024-01-03 13:43 | disposition home or self-care (01) ==
LOC: PST 13:42
PROVIDERS: PCP Internal Medicine; Visit Provider Ophthalmology
DX: Z01.818 Encounter for other preprocedural examination (principal); H25.811 Combined forms of age-related cataract, right eye

== ENCOUNTER 2024-01-04 06:21 | Day surgery (SDC) | payer OTHER, SELFPAY ==
--- NOTE | 2024-01-04 | HP_ITS ---
PREOPERATIVE HISTORY AND PHYSICAL ? Date:? 01/03/2024 ? HISTORY:? The patient is a 63-year-old white female with complaints of declining vision out of her right eye.? This gradual onset has occurred over the last 6-12 months.? More rapidly has this felt to be progressing, effecting her TV watching as well as reading.? Night time driving has become difficult due to the headlights creating glare and halos.? ? PAST OCULAR HISTORY / PAST MEDICAL HISTORY / SOCIAL HISTORY / MEDICATIONS / ALLERGIES TO MEDICATIONS / REVIEW OF SYSTEMS / PHYSICAL EXAM:? Unchanged from previously dictated. ? ASSESSMENT / PLAN:? Visually significant cataract right eye.? After risks, benefits, alternatives, as well as expectations were delivered to the patient, she elected to go forward with cataract removal.? She understands the risks include but not limited to infection, bleeding, loss of vision, loss of the eye itself.? Secondly, she understands that postoperatively she is likely to require spectacle correction for her best visual acuity.? Finally, a complete ophthalmic exam was performed.? There is not determined to be any other source of visual decline other than that of the cataract. ? After understanding all risks as well as expectations, she elected to go forward with the procedure as listed above and will be doing so in the near future. DAMARIS
--- NOTE | 2024-01-04 | OP_ITS ---
OPERATION DATE: 01/04/2024 SURGEON: Nelson Baca M.D. PREOPERATIVE DIAGNOSIS: Nuclear sclerotic cataract right eye. POSTOPERATIVE DIAGNOSIS: Nuclear sclerotic cataract right eye. PROCEDURE NAME: Cataract extraction with intraocular lens placement for the right eye. ANESTHESIA: Topical. ESTIMATED BLOOD LOSS: Zero. COMPLICATIONS: None. PROCEDURE: The patient was brought to the Operating Room in supine position. After proper identification, the right eye was prepped and draped in a sterile ophthalmic fashion. A paracentesis created at the 11 o'clock position. Approximately 1 cc of unpreserved Xylocaine was injected into the anterior chamber followed by Amvisc Plus. Using a 2.6 mm Keratome blade, a clear corneal incision was created at the 9 o'clock limbus. A cystotome was then used to begin a curvilinear capsulorrhexis that was continued for 360 degrees with the Utrata forceps. BSS on a 26 gauge cannula was injected beneath the anterior capsule to hydrodissect as well as hydrodelineate the lens. After ensuring mobility, phacoemulsification was performed in a [id number]-type fashion. After all nuclear material had been removed from the eye, IA was introduced and all residual cortical material was cleaned up. Additional Amvisc Plus was injected into the posterior bag and a lens model MX60, 21.0 diopters was injected and dialed into position. After ensuring centration, IA was reintroduced into the anterior chamber and all residual Amvisc Plus was removed from the eye. BSS on a 30 gauge cannula was injected into the stroma of both the clear corneal incision as well as paracentesis to hydrate the wounds. Additional BSS was injected into the anterior chamber to pressurize the eye at approximately 20 to 22 mmHg by finger tension. Weck-Nitza sponges were used to check the wounds to be watertight. One drop of apraclonidine and one drop of prednisolone acetate placed into the eye and a shield was placed over top. The patient was sent to the postoperative area in satisfactory condition to follow up the following day for postoperative care. DAMARIS
[2024-01-04 06:30] VITALS: BMI 53.6
[2024-01-04 06:33] VITALS: BP 135/79; PULSE 67; TEMP 36.6; O2SAT 91
[2024-01-04] MEDS: TROPICAMIDE 1% OP SOL 300 DROP/15 ML BOTTLE OP ×4 (06:37→07:09)
[2024-01-04] MEDS: CYCLOPENTOLATE HCL 1% OP SOL 40 DROP/2 ML BOTTLE OP ×4 (06:37→07:08)
[2024-01-04] MEDS: PHENYLEPHRINE HCL 2.5% OP SOL 40 DROP/2 ML BOTTLE OP ×4 (06:37→07:08)
[2024-01-04] MEDS: DIAZEPAM 5 MG TABLET PO (06:43)
[2024-01-04 07:38] VITALS: BP 134/80; PULSE 65; O2SAT 95
[2024-01-04] MEDS: LIDOCAINE 2% JELLY 10 ML TOPICAL (07:40)
[2024-01-04] MEDS: HYALURONATE SODIUM 16 MG/ML SYRINGE OP (07:40)
[2024-01-04] MEDS: APRACLONIDINE HCL 0.5% SOL 100 DROP/5 ML BOTTLE OP (07:40)
[2024-01-04] MEDS: BETADINE POVIDONE-IODINE 5% OP SOL 30 ML BOTTLE OP (07:41)
[2024-01-04] MEDS: LIDOCAINE HCL 1% PF 20 MG/2 ML VIAL INJ (07:41)
[2024-01-04] MEDS: PROPARACAINE HCL 0.5% 300 DROP/15 ML BOTTLE OP (07:41)
[2024-01-04] MEDS: PHENYLEPHRINE/KETOROLAC 1-0.3% ML VIAL 4 ML IRR (07:41)
[2024-01-04] MEDS: PREDNISOLONE ACETATE OP 1% SUSP 100 DROPS/5 ML 1 DROP OP (07:41)
[2024-01-04] MEDS: TETRACAINE HCL 0.5% OP SOL 80 DROP/4 ML BOTTLE OP (07:42)
[2024-01-04 07:44] VITALS: BP 132/83; PULSE 66; O2SAT 96
--- NOTE | 2024-01-04 07:52 | PC.NURSE ---
0710- Dr. Baca aware that patient didn't bring her antibiotic eye drops today. Okay to proceed.
== END 2024-01-04 08:05 | disposition home or self-care (01) ==
LOC: SURGOUT 06:22
PROVIDERS: Visit Provider Ophthalmology
PROC: (CPT 66984; principal; 2024-01-04 07:30)
DX: H25.11 Age-related nuclear cataract, right eye (principal)
CPT/HCPCS: 66984; J0697; V2630

== ENCOUNTER 2024-03-18 04:51 | Emergency (ER) | payer OTHER, MEDICAID, SELFPAY ==
[2024-03-18] VITALS (21 sets, daily range): BP systolic 119–138; BP diastolic 73–96; PULSE 64–75; TEMP 36.6; O2SAT 78–99; BMI 73.7
--- NOTE | 2024-03-18 05:01 | CT_ITS ---
[address] [address] Patient Name: MALCOLM RECIO MRN: [id number] date: 1960 Sex: F Assigned Patient Location: ER Current Patient Location: ER Accession/Order Number: [id number] Exam Date: 03/18/2024 05:20 Report Date: 03/18/2024 06:07 At the request of: TONI GEORGE Procedure: CT head/brain wo con EXAM: CT cervical spine wo con, CT head/brain wo con CLINICAL INDICATION: fall COMPARISON: None TECHNIQUE: Unenhanced computerized tomography of the head was performed. Automated dose reduction technique was employed. Multiple axial slices of the cervical spine were obtained without contrast and with coronal and sagittal reformatted images. FINDINGS: The ventricles are normal in size, configuration, and position for age. There is no intra- or extra-axial mass, hemorrhage, or fluid collection. No areas of abnormal mass effect or attenuation are noted. Visualized paranasal sinuses are free of mucosal disease. No depressed calvarial fracture. Vertebral height and alignment is preserved. No acute fracture or subluxation. Minimal to mild multilevel degenerative changes of the cervical spine. The atlanto occipital joint is maintained.The odontoid and lateral masses are intact. The prevertebral soft tissues are within normal limits. The adjacent structures appear intact. The visualized soft tissues of the neck are normal. CT/CT head/brain wo con IMPRESSION: 1. No acute intracranial abnormality noted. 2. No acute fracture or subluxation of the cervical spine. Electronically authenticated by: AMOR MÁRQUEZ Date: 03/18/2024 06:07
--- NOTE | 2024-03-18 05:01 | XR_ITS ---
The [address] [address] Patient Name: MALCOLM RECIO MRN: [id number] date: 1960 Sex: F Assigned Patient Location: ER Current Patient Location: ER Accession/Order Number: [id number] Exam Date: 03/18/2024 05:20 Report Date: 03/18/2024 06:24 At the request of: TONI GEORGE Procedure: XR shoulder SOPHY min 2V EXAM: XR shoulder SOPHY min 2V HISTORY: fall . Bilateral shoulder pain. COMPARISON: None. TECHNIQUE: 3 views of the bilateral shoulders. FINDINGS: Right shoulder: No acute fracture, acromioclavicular separation or glenohumeral dislocation is seen. There is mild degenerative change in the acromioclavicular joint. Left shoulder: No acute fracture, acromioclavicular separation or glenohumeral dislocation is seen. There is mild degenerative change in the acromioclavicular joint. XR/XR shoulder SOPHY min 2V IMPRESSION: 1. No acute right shoulder findings. 2. No acute left shoulder findings. Electronically authenticated by: MELY HAWK Date: 03/18/2024 06:24
--- NOTE | 2024-03-18 05:01 | CT_ITS ---
[address] [address] Patient Name: MALCLOM RECIO MRN: [id number] date: 1960 Sex: F Assigned Patient Location: ER Current Patient Location: Accession/Order Number: [id number] Exam Date: 03/18/2024 05:20 Report Date: 03/18/2024 06:23 At the request of: TONI GEORGE Procedure: CT lumbar spine wo con EXAMINATION: CT Lumbar Spine without IV Contrast TECHNIQUE: Standard protocol axial Lumbar spine CT was performed without intravenous contrast. Multiplanar reformatted images were created according to the routine protocol. CONTRAST: The amount and type of contrast are recorded in the medical record. QPP DOCUMENTATION: At least one of the following dose reduction techniques was utilized: Iterative reconstruction, and/or Automatic Exposure Control, and/or mA/kV adjustment based on body size. INDICATION: . fall COMPARISON: None FINDINGS: Segmentation: There are only 4 nonrib-bearing lumbar-type vertebral segments. The L5 vertebral body is completely sacralized. Caution is advised if counting spinal segments from caudal to cranial. For the purposes of this study, the completely sacralized L5 segment will be labeled L5. Therefore, the caudal most fully formed disc will be labeled L4-L5. Alignment: Normal AP alignment. Vertebrae: No fractures or significant losses of vertebral body heights. Intervertebral Discs: There is moderate disc space narrowing and vacuum disc phenomenon at L4-L5. L1-L2: No significant osseous encroachment upon the spinal canal or neural foramina. Normal appearance of the facet joints. L2-L3: No significant osseous encroachment upon the spinal canal or neural foramina. Normal appearance of the facet joints. L3-L4: Slight bulging of the posterior disc. Bilateral facet arthropathy and ligamentum flavum thickening. Mild to moderate spinal canal narrowing. Mild to moderate right and mild left foraminal narrowing. L4-L5: Posterior disc bulge. Mild facet arthropathy. Mild spinal canal narrowing. Disc osteophyte complex extends into and moderately/severely narrows the neural foramina. L5-S1: This level is completely sacralized. No spinal canal or foraminal stenosis. Paraspinal Tissues: Unremarkable. Additional Findings: None CT/CT lumbar spine wo con IMPRESSION: 1. The L5 vertebral segment is completely sacralized. There are only 4 lumbar-type nonrib-bearing vertebral segments. Caution is advised if counting spinal segments from caudal to cranial. For the purposes of this study, the sacralized L5 segment will be labeled L5. 2. Mild/moderate spinal canal narrowing at L3-L4 due to broad-based disc bulge and facet arthropathy. 3. Disc osteophyte complex extends into and moderate/severely narrows the neural foramina at L4-L5. 4. Mild to moderate right and mild left foraminal narrowing at L3-L4. Electronically authenticated by: TYLER KENNEDY Date: 03/18/2024 06:23
--- NOTE | 2024-03-18 05:02 | CT_ITS ---
[address] [address] Patient Name: MALCOLM RECIO MRN: [id number] date: 1960 Sex: F Assigned Patient Location: ER Current Patient Location: Accession/Order Number: [id number] Exam Date: 03/18/2024 05:20 Report Date: 03/18/2024 06:07 At the request of: TONI GEORGE Procedure: CT cervical spine wo con EXAM: CT cervical spine wo con, CT head/brain wo con CLINICAL INDICATION: fall COMPARISON: None TECHNIQUE: Unenhanced computerized tomography of the head was performed. Automated dose reduction technique was employed. Multiple axial slices of the cervical spine were obtained without contrast and with coronal and sagittal reformatted images. FINDINGS: The ventricles are normal in size, configuration, and position for age. There is no intra- or extra-axial mass, hemorrhage, or fluid collection. No areas of abnormal mass effect or attenuation are noted. Visualized paranasal sinuses are free of mucosal disease. No depressed calvarial fracture. Vertebral height and alignment is preserved. No acute fracture or subluxation. Minimal to mild multilevel degenerative changes of the cervical spine. The atlanto occipital joint is maintained.The odontoid and lateral masses are intact. The prevertebral soft tissues are within normal limits. The adjacent structures appear intact. The visualized soft tissues of the neck are normal. CT/CT cervical spine wo con IMPRESSION: 1. No acute intracranial abnormality noted. 2. No acute fracture or subluxation of the cervical spine. Electronically authenticated by: AMOR MÁRQUEZ Date: 03/18/2024 06:07
--- OUTSIDE RECORDS SUMMARY | 2024-03-18 05:16 | XMS_ITS | CCD ---
Author Organization [facility] Care Team Providers Care Fisheries Specialist Name Role Phone Unavailable Primary Care Provider Unavailabl e PROVIDER, UNKNOWN Attending Unavailable PROVIDER, UNKNOWN Admitting Unavailable HEMMER, DR ERIN Vail Attending Unavailable HEMMER, DR ERIN Vail Admitting Unavailable NEFANISH GRIFFIN Consulting Unavailable FREDY, DR RUSSELL Primary Care Unavailable HEMMER, DR ERIN Vail Consulting Unavailable FREDY, DR RUSSELL Consulting Unavailable FREDY, DR RUSSELL Attending Unavailable FREDY, DR RUSSELL Admitting Unavailable FREDY, DR RUSSELL Primary Care Unavailable CHRISTEN BAKER Consulting Unavailable ESTRADA ., MR SCOTT Attending Unavailable ESTRADA ., MR TYLER Admitting Unavailable ZIEBTRI, DR BURT Marks Consulting Unavailable FREDY, DR RUSSELL Primary Care Unavailable ESTRADA ., MR TYLER Consulting Unavailable LAKSHMIPATHY ., SIOMARA Consulting Rachael vailable LAKSHMIPATHY ., BENNETTATH Attending Rachael vailable LAKSHMIPATHY ., SIOMARA Admitting Rachael vailable DR JER RIZO Primary Care Unavailable LAKSHMIPATHY ., BENNETTATH Attending Rachael vailable LAKSHMIPATHY ., BENNETTATH Admitting Rachael vailable LAKSHMIPATHY ., [place] Consulting Rachael vailable DR JER RIZO Primary Care Unavailable LAKSHMIPATHY ., [place]OMARA Attending Rachael vailable LEIGHSHMIPATHY ., BENNETTATH Admitting Rachael vailable DR JER RIZO Primary Care Unavailable FREDY, DR RUSSELL Primary Care Unavailable ZIEBTRI, DR BURT Marks Consulting Unavailable ELIEZER ., OMID Attending Unavailable ELIEZER ., OMID Admitting Unavailable NADERER, DR YANNICK Clancy Consulting Unavailable BRETT OSUNA Consulting Unavailable GWEN .WILLEM Consulting Unavailable CELESTE LUNA Consulting Unavailable VINNY SARAVIA Consulting Unavailable WILL HOGAN Consulting Unavailable ANISH JACKSON Consulting Unavailable ELIEZER ., OMID Consulting Unavailable CHRISTEN BAKER Consulting Unavailable ESTRADA ., MR TYLER Attending Unavailable ESTRADA ., MR TYLER Admitting Unavailable FREDY, DR RUSSELL Primary Care Unavailable ESTRADA ., MR TYLER Consulting Unavailable LAKSHMIPATHY ., NARENDVICTORIANOATH Attending Rachael douglasilable LAKSHMIPATHStefanie ., NARENDRANATH Admitting Rachael vailable BRIA GUAJARDO Consulting Unavailable DR JER RIZO Primary Care Unavailable RAFA ., SIOMARA Consulting Rachael Jer Fitch MD Primary Care Provider Jer Rizo MD Unavailable Pratik Soria Attending Unavailab Pratik Dunlap Admitting Unavailab Jer Calvin Primary Care Unavailable ERIN TARIQ Attending Unavailable TYLER ESTRADA Attending Unavailable TYLER ESTRADA Referring Unavailable SWATHI BACA Attending Unavailable PILLO DIGGS Referring Unavailable HEMERIN MARIANO Attending Unavailable SWATHI BACA Attending Unavailable HEMERIN MARIANO Referring Unavailable HEMERIN MARIANO Attending Unavailable YARELIS WEINBERG Attending Unavailab le Allergies Allergy Classification Reported Allergen(s) Allergy Type Date of Onset Reaction(s) Facility (2 sources) cefdinir Drug Allergy 3 [facility] (1 source) Codeine Drug Allergy [facility] (2 sources) Ibandronate Drug Allergy 3 [facility] (2 sources) nabumetone Drug Allergy 3 [facility] (2 sources) Penicillins Drug allergy (disorder) 3 [facility] (2 sources) Sulfonamides (Antibiotic) Drug allergy (disorder) 3 [facility] (4 sources) [facility] ([facility] sources) Ibandronate Drug Allergy 3 Hives [facility] (4 sources) nabumetone Drug Allergy 3 [facility] (4 sources) Penicillin G Drug Allergy 3 [facility] Healthcare (4 sources) Sulfanilamide Allergy to substance 3 [facility] Healthcare (2 sources) Sertraline Drug Allergy 4 [facility] Healthcare (2 sources) zolpidem Drug Allergy 4 Other [facility] Healthcare Medications Current Medications Medication Drug Class(es) Dates Sig (Normalized) Sig (Original) acetaminophen 325 mg / HYDROcodone bitartrate 5 mg oral tablet (4 sources) Opioid Agonist Start: 02-21-2024 take 1 tablet by mouth every six hours for pain HYDROcodone-acetam inophen (Bloomery) 5-325 MG tablet Indications: Cervical spondylosis Take 1 tablet by mouth every 6 (six) hours if needed for severe pain or moderate pain 56 tablet 02/21/2024 Active Start: 03-22-2023 take 1 tablet by tk th every six hours for pain HYDROcodone-acetaminophen (Bloomery) 5-325 MG tablet Indications: Cervical spondylosis Take 1 tablet by mouth every 6 (six) hours if needed for severe pain or moderate pain. 56 tablet 0 03/22/2023 Active [id number] 200 actuat albuterol 0.09 mg/actuat metered dose inhaler (8 sources) beta2-Adrenergic Agonist Start: 12-06-2023 take 2 puff(s) by inhalation every four hours for wheezing albuterol HFA (Ventolin HFA) 90 mcg/act inhaler Indications: Severe persistent asthma without complication (CMS/HCC) Inhale 2 puffs every 4 (four) hours if needed for wheezing or shortness of breath 18 g 5 12/06/2023 Active Start: 03-22-2023 albuterol (2.5 MG/3ML) 0.083% nebulizer solution Indications: Severe persistent asthma without complication (CMS/HCC) Take 3 mL (2.5 mg) by nebulization every 8 (eight) hours. 75 mL 5 03/22/2023 Active take 2 puff(s) by in halation every four hours for wheezing Ventolin HFA 108 (90 Base) MCG/ACT inhaler Inhale 2 puffs every 4 (four) hours if needed for wheezing or shortness of breath. 0 Active baclofen 10 mg oral tablet (4 sources) gamma-Aminobutyric Acid-ergic Agonist Start: 03-05-2024 take 1 tablet by mouth three times daily as needed baclofen (Lioresal) 10 MG tablet Indications: Cervical spondylosis TAKE 1 TABLET BY MOUTH THREE TIMES A DAY NEEDED 270 tablet 1 03/05/2024 Active Start: 03-22-2023 take 1 tablet by tk th three times daily as needed baclofen (Lioresal) 10 MG tablet Indications: Cervical spondylosis TAKE 1 TABLET BY MOUTH THREE TIMES A DAY NEEDED FOR 30 DAYS 270 tablet 1 03/22/2023 Active Blood Glucose Monitoring Suppl device (4 sources) Start: 04-04-2023 Blood Glucose Monitoring Suppl device Indications: Type 2 diabetes mellitus with other specified complication, without long-term current use of insulin ([facility]) USE DIRECTED 100 strip 2 04/04/2023 Active 120 actuat budesonide 0.16 mg/actuat / formoterol fumarate 0.0048 mg/actuat / glycopyrrolate 0.009 mg/actuat metered dose inhaler (4 sources) Corticosteroi d, beta2-Adrener gic Agonist Start: 09-05-2023 take 2 puff(s) by inhalation in the morning Budeson-Glycopyrrol -Formoterol (Breztri Aerosphere) 160-9-4.8 MCG/ACT aerosol Indications: Chronic obstructive pulmonary disease, unspecified COPD type ([facility]) Inhale 2 puffs in the morning and 2 puffs before bedtime. 10.7 g 5 09/05/2023 Active Start: 03-08-2023 take 2 puff(s) by in halation in the morning Breztri Aerosphere 160-9-4.8 MCG/ACT aerosol Inhale 2 puffs in the morning and 2 puffs before bedtime. 0 03/08/2023 Active busPIRone hydrochloride 15 mg oral tablet (6 sources) Start: 03-14-2024 End: 03-14-2025 take 1 tablet by mouth in the morning busPIRone (Buspar) 15 MG tablet Indications: JENN (generalized anxiety disorder) ([facility]) Take 1 tablet (15 mg) by mouth in the morning and 1 tablet (15 mg) before bedtime. 60 tablet 2 03/14/2024 03/14/2025 Active End: 03-14-2024 take 1 tablet by mouth in the morning busPIRone (Buspar) 30 MG tablet Take 1 tablet by mouth in the morning and 1 tablet before bedtime. 03/14/2024 Discontinued cariprazine 3 mg oral capsule (6 sources) Atypical Antipsychotic Start: 03-14-2024 End: 04-13-2024 take 1 capsule by mouth at bedtime Cariprazine HCl (Vraylar) 3 MG capsule Indications: Mixed bipolar affective disorder, moderate (CMS/HCC) Take 1 capsule by mouth at bedtime 30 capsule 1 03/14/2024 04/13/2024 Active take 1 capsule by mouth once imani ly Vraylar 4.5 MG capsule Take 1 capsule by mouth 1 (one) time each day. 0 Active dapagliflozin 10 mg oral tablet (4 sources) Sodium-Glucose Cotransporter 2 Inhibitor Start: 11-06-2023 take 1 tablet by mouth once daily dapagliflozin (Farxiga) 10 MG Indications: 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)neuropathy (CMS/HCC) TAKE 1 TABLET BY MOUTH EVERY DAY 100 tablet 3 11/06/2023 Active take 1 tablet by mouth once gianna y Farxiga 10 MG Take 1 tablet by mouth 1 (one) time each day. 0 Active diclofenac sodium 75 mg delayed release oral tablet (4 sources) Nonsteroidal Anti-inflammatory Drug Start: 01-26-2024 take 1 tablet by mouth in the morning diclofenac (Voltaren) 75 MG EC tablet Indications: Rheumatoid arthritis, unspecified (CMS/HCC) TAKE 1 TABLET BY MOUTH IN THE MORNING AND 1 TABLET BEFORE BEDTIME. DO NOT CRUSH, CHEW, OR SPLIT. 200 tablet 3 01/26/2024 Active Start: 11-23-2022 take 1 tablet by tk th in the morning diclofenac (Voltaren) 75 MG EC tablet Indications: Rheumatoid arthritis, unspecified (CMS/HCC) Take 1 tablet (75 mg) by mouth in the morning and 1 tablet (75 mg) before bedtime. Do not crush, chew, or split.. 200 tablet 3 11/23/2022 Active DULoxetine 60 mg delayed release oral capsule (4 sources) Serotonin and Norepinephrine Reuptake Inhibitor Start: 11-01-2023 take 2 capsules by mouth once daily DULoxetine (Cymbalta) [address] capsule Indications: Bipolar affective disorder, currently depressed, moderate (CMS/HCC) Take 2 capsules (120 mg) by mouth 1 (one) time each day at the same time 200 capsule 3 11/01/2023 Active take 2 capsules by mouth once da brandon Cymbalta [address] capsule Take 2 capsules by mouth 1 (one) time each day at the same time. 0 Active fluticasone propionate 0.05 mg/actuat metered dose nasal spray (1 source) Corticosteroid take 1 spray(s) nasal route in the morning fluticasone (Flonase) 50 MCG/ACT nasal spray Administer 1 spray into each nostril in the morning. 0 Active furosemide 40 mg oral tablet (4 sources) Loop Diuretic Start: 09-12-2023 take 1 tablet by mouth twice daily furosemide (Lasix) 40 MG tablet Indications: Localized edema TAKE 1 TABLET BY MOUTH TWICE A DAY 180 tablet 4 09/12/2023 Active take 1 tablet by mouth in the mo rning furosemide (Lasix) 40 MG tablet Take 1 tablet by mouth in the morning and 1 tablet before bedtime. 0 Active gabapentin 600 mg oral tablet (4 sources) Anti-epileptic Agent Start: 09-05-2023 take 1 tablet by mouth twice daily, then take 2 tablets by mouth at bedtime gabapentin (Neurontin) 600 MG tablet Indications: Type 2 diabetes mellitus with autonomic neuropathy, unspecified whether shelter insulin use (CMS/HCC) Take 1 tablet (600 mg) by mouth 2 (two) times a day AND 2 tablets (1,200 mg) at bedtime. 400 tablet 1 09/05/2023 Active Start: 11-04-2022 take 1 tablet by tk th in the morning, then take 1 tablet by mouth in the evening, then take 1 tablet by mouth at bedtime gabapentin (Neurontin) 600 MG tablet Indications: Type 2 diabetes mellitus with autonomic neuropathy, unspecified whether shelter insulin use (CMS/HCC) Take 1 tablet (600 mg) by mouth in the morning and 1 tablet (600 mg) in the evening and 1 tablet (600 mg) before bedtime. 300 tablet 3 11/04/2022 Active hydrocortisone 10 mg/ml / neomycin 3.5 mg/ml / polymyxin [id number] unt/ml otic suspension (3 sources) Aminoglycoside Antibacterial, Polymyxin-class Antibacterial, Corticosteroid Start: 01-12-2024 [id number] isone (Cortisporin) [id number] otic suspension Indications: Acute otitis externa of both ears, unspecified type USE 3 DROPS IN EACH AFFECTED EAR IN THE MORNING, AT NOON, IN THE EVENING, AND BEFORE BEDTIME FOR 7 DAYS 10 mL 01/12/2024 Active lamoTRIgine 25 mg oral tablet (8 sources) Mood Stabilizer, Anti-epileptic Agent Start: 02-21-2024 take 1 tablet by mouth at bedtime lamoTRIgine (LaMICtal) 200 MG tablet Indications: Bipolar affective disorder, currently depressed, moderate (CMS/HCC) Take 1 tablet (200 mg) by mouth at bedtime 90 tablet 3 02/21/2024 Active Start: 02-21-2024 take 1 tablet by tk th at bedtime lamoTRIgine (LaMICtal) 25 MG tablet Indications: Bipolar affective disorder, currently depressed, moderate (CMS/HCC) Take 1 tablet (25 mg) by mouth at bedtime 90 tablet 3 02/21/2024 Active take 1 tablet by tk th at bedtime LaMICtal 200 MG tablet Take 1 tablet by mouth at bedtime. 0 Active take 1 tablet by tk th at bedtime LaMICtal 25 MG tablet Take 1 tablet by mouth at bedtime. 0 Active levothyroxine sodium 0.112 mg oral tablet (4 sources) l-Thyroxine Start: 11-27-2023 take 1 tablet by mouth in the morning levothyroxine (Synthroid, Levoxyl) 112 MCG tablet Indications: Hypothyroidism, unspecified type (CMS/HCC) Take 1 tablet (112 mcg) by mouth in the morning. 100 tablet 3 11/27/2023 Active Start: 11-23-2022 take 1 tablet by tk th once daily levothyroxine (Synthroid, Levoxyl) 112 MCG tablet Indications: Hypothyroidism, unspecified type (CMS/HCC) Take 1 tablet (112 mcg) by mouth 1 (one) time each day at the same time. 100 tablet 3 11/23/2022 Active linagliptin 5 mg oral tablet (4 sources) Dipeptidyl Peptidase 4 Inhibitor Start: 02-09-2024 take 1 tablet by mouth once daily Tradjenta 5 MG tablet Indications: Type 2 diabetes mellitus with autonomic neuropathy, unspecified whether shelter insulin use (CMS/HCC) TAKE 1 TABLET BY MOUTH EVERY DAY 90 tablet 02/09/2024 Active take 1 tablet by mouth once gianna y Tradjenta 5 MG tablet Take 1 tablet by mouth 1 (one) time each day. 0 Active loratadine 10 mg oral tablet (1 source) take 1 tablet by mouth once daily loratadine (Claritin) 10 MG tablet Take 1 tablet by mouth 1 (one) time each day at the same time. 0 Active metoprolol tartrate 25 mg oral tablet (4 sources) beta-Adrenergic Sher Start: 10-30-2023 take 1 tablet by mouth at bedtime metoprolol tartrate (Lopressor) 25 MG tablet Indications: Essential hypertension, benign (CMS/HCC) TAKE 1 TABLET (25 MG) BY MOUTH IN THE MORNING AND BEFORE BEDTIME 180 tablet 4 10/30/2023 Active Start: 11-04-2022 take 1 tablet by tk th in the morning metoprolol tartrate (Lopressor) 25 MG tablet Indications: Essential hypertension, benign (CMS/HCC) Take 1 tablet (25 mg) by mouth in the morning and 1 tablet (25 mg) before bedtime. 200 tablet 3 11/04/2022 Active OXYGEN-HELIUM IN (4 sources) Start: 01-21-2022 OXYGEN-HELIUM IN inhaled nasal continuous use 01/21/2022 Active Start: 01-21-2022 OXYGEN-HELIUM IN inhaled nasal continuous use 0 01/21/2022 Active rosuvastatin calcium 5 mg oral tablet (3 sources) HMG-CoA Reductase Inhibitor Start: 11-28-2023 take 1 tablet by mouth once daily rosuvastatin (Crestor) 5 MG tablet Indications: Hypokalemia Take 1 tablet (5 mg) by mouth Daily 90 tablet 1 11/28/2023 Active traZODone hydrochloride 100 mg oral tablet (4 sources) Serotonin Reuptake Inhibitor Start: 02-21-2024 take 2 tablets by mouth at bedtime traZODone (Desyrel) 100 MG tablet Indications: Bipolar affective disorder, currently depressed, moderate (CMS/HCC) Take 2 tablets (200 mg) by mouth at bedtime 90 tablet 3 02/21/2024 Active take 2 tablets by mouth at bedti me traZODone (Desyrel) 100 MG tablet Take 2 tablets by mouth at bedtime. 0 Active triamcinolone acetonide 5 mg/ml topical cream (4 sources) Corticosteroid Start: 05-18-2023 triamcinolone (Kenalog) 0.5 % cream Indications: Venous insufficiency (chronic) (peripheral) APPLY 1 APPLICATION EXTERNALLY ONCE A DAY NEEDED 7 DAY(S) 30 g 2 05/18/2023 Active Completed/Discontinued Medications Medication Drug Class(es) Dates Sig (Normalized) Sig (Original) methylPREDNISolone (3 sources) Corticosteroid Start: 02-21-2024 End: 03-14-2024 methylPREDNISolone (Medrol Dospak) 4 MG tablets Indications: Chronic obstructive pulmonary disease, unspecified COPD type ([facility]) Follow schedule on package instructions 21 tablet 02/21/2024 03/14/2024 Discontinued Start: 02-21-2024 methylPREDNISo lone (Medrol Dospak) 4 MG tablets Indications: Chronic obstructive pulmonary disease, unspecified COPD type ([facility]) Follow schedule on package instructions 21 tablet 02/21/2024 Active Problems Active Problems Problem Classification Problem Date Documented Date Episodic/Chronic Anxiety disorders (6 sources) Anxiety disorder; Translations: [Anxiety disorder, unspecified] Onset: 06-08-2022 01-03-2023 Chronic Aortic; peripheral; and visceral artery aneurysms (8 sources) Dissection of abdominal aorta; Translations: [Dissection of aorta] Onset: 06-15-2022 01-02-2023 Chronic Asthma (9 sources) Unspecified asthma, uncomplicated; Translations: [Severe persistent asthma] Onset: 06-15-2022 Resolved: 03-22-2023 01-02-2023 Chronic Asthma (1 source) Asthma; Translations: [EOSINOPHILIC ASTHMA] Onset: 06-15-2022 Cataract (6 sources) Artificial lens present; Translations: [Presence of intraocular lens] Onset: 11-28-2023 Resolved: 01-05-2024 01-05-2024 Chronic Chronic obstructive pulmonary disease and bronchiectasis (4 sources) Chronic obstructive lung disease; Translations: [Chronic obstructive pulmonary disease, unspecified] Onset: 01-02-2023 01-02-2023 Chronic Coronary atherosclerosis and other heart disease (5 sources) Atherosclerotic heart disease of [place] coronary artery without angina pectoris; Translations: [Coronary atherosclerosis] Onset: 06-15-2022 01-02-2023 Chronic Diabetes mellitus with complications (12 sources) Autonomic neuropathy due to type 2 [...] [Unspecified fall, initial encounter] Onset: 06-15-2022 Episodic Endometriosis (3 sources) Endometriosis (clinical); Translations: [Endometriosis, unspecified] Onset: 09-05-2023 09-05-2023 Chronic Essential hypertension (5 sources) Essential (primary) hypertension; Translations: [Essential hypertension] Onset: 06-15-2022 01-02-2023 Chronic Headache; including migraine (4 sources) Migraine; Translations: [Migraine without aura, not intractable, without status migrainosus] Onset: 01-02-2023 01-02-2023 Chronic Hepatitis (4 sources) Nonalcoholic steatohepatitis; Translations: [Nonalcoholic steatohepatitis (IVAN)] Onset: 01-02-2023 01-02-2023 Chronic Joint disorders and dislocations; trauma-related (8 sources) Unspecified internal derangement of left knee; Translations: [Chondromalacia of left patella] Onset: 05-10-2022 Chronic Menopausal disorders (1 source) Hormone replacement therapy; Translations: [HORMONE REPLACEMENT THERAPY] Onset: 06-15-2022 Episodic Mood disorders (15 sources) Bipolar disorder, unspecified; Translations: [Bipolar affective disorder, currently depressed, moderate] Onset: 06-15-2022 Resolved: 03-22-2023 01-02-2023 Chronic Osteoarthritis (10 sources) Bilateral primary osteoarthritis of hip; Translations: [Unspecified osteoarthritis, unspecified site] Onset: 06-15-2022 Resolved: 03-22-2023 01-02-2023 Chronic Osteoporosis (1 source) Age-related osteoporosis without current pathological fracture; Translations: [AGE-REL OSTEOPOR W/O CURR PATH FX] Onset: 06-15-2022 Chronic Other aftercare (1 source) oysterman (current) use of insulin; Translations: [FIELD NATURALIST CURRENT USE OF INSULIN] Onset: 06-15-2022 Episodic Other aftercare (1 source) Other oysterman (current) drug therapy; Translations: [OTH CORRECTION CURRENT DRUG THERAPY] Onset: 06-15-2022 Episodic Other [...] Chronic Other nutritional; endocrine; and metabolic disorders (4 sources) Extreme obesity with alveolar hypoventilation; Translations: [Morbid (severe) obesity with alveolar hypoventilation] Onset: 01-02-2023 01-02-2023 Chronic Other nutritional; endocrine; and metabolic disorders (3 sources) Obesity caused by energy imbalance; Translations: [Morbid (severe) obesity due to excess calories] Onset: 12-06-2023 12-06-2023 Chronic Other nutritional; endocrine; and metabolic disorders (3 sources) Body mass index 40+ - severely obese; Translations: [Body mass index (BMI) 50.0-59.9, adult] Onset: 12-06-2023 12-06-2023 Chronic Other screening for suspected conditions (not mental disorders or infectious disease) (4 sources) Computed tomography result abnormal; Translations: [Abnormal findings on diagnostic imaging of other specified body structures] Onset: 01-02-2023 01-02-2023 Chronic Other upper respiratory disease (4 sources) Allergic rhinitis; Translations: [Allergic rhinitis, unspecified] Onset: 01-02-2023 01-02-2023 Chronic Other upper respiratory infections (8 sources) Chronic sinusitis, unspecified; Translations: [Chronic sinusitis] Onset: 11-22-2021 Chronic Residual codes; unclassified (4 sources) Obstructive sleep apnea syndrome; Translations: [Obstructive sleep apnea (adult) (pediatric)] Onset: 01-02-2023 01-02-2023 Chronic Residual codes; unclassified (4 sources) Altered mental status, unspecified; Translations: [ALTERED MENTAL STATUS UNSPECIFIED] Onset: 06-06-2022 Episodic Residual codes; unclassified (1 source) Acquired absence of other specified parts of digestive tract; Translations: [ACQ ABSENCE OTH PART DIGESTV TRACT] Onset: 06-15-2022 Episodic Respiratory failure; insufficiency; arrest (adult) (13 sources) Acute and chronic respiratory failure with hypoxia; Translations: [Dependence on supplemental oxygen] Onset: 06-15-2022 Resolved: 03-22-2023 01-02-2023 Chronic Rheumatoid arthritis and related disease (5 sources) Rheumatoid arthritis, unspecified; Translations: [Rheumatoid arthritis] Onset: 06-15-2022 01-02-2023 Chronic Spondylosis; intervertebral disc disorders; other back problems (11 sources) Spondylosis without myelopathy or radiculopathy, lumbar region; Translations: [Spondylosis without myelopathy or radiculopathy, lumbosacral region] Onset: 01-05-2022 Chronic Superficial injury; contusion (1 source) Contusion of lower back and pelvis, initial encounter; Translations: [CONTUSION LOWER BACK PELVIS INITIAL] Onset: 06-15-2022 Episodic Thyroid disorders (5 sources) Hypothyroidism, unspecified; Translations: [Hypothyroidism] Onset: 06-15-2022 11-23-2022 Chronic Unclassified (3 sources) LOW BACK PAIN, UNSPECIFIED; Translations: [LOW BACK PAIN, UNSPECIFIED] Onset: 07-31-2022 Unclassified (1 source) CONTACT W/AND (SUSP) EXPOS COVID-19; Translations: [CONTACT W/AND (SUSP) EXPOS COVID-19] Onset: 06-15-2022 Unclassified (3 sources) Patient on antidepressant monitoring plan Onset: 10-31-2023 10-31-2023 Past or Other Problems Problem Classification Problem Date Documented Da te Episodic/Chronic Abdominal hernia (5 sources) Diaphragmatic hernia without obstruction or gangrene; Translations: [Diaphragmatic hernia] Onset: 06-08-2022 01-03-2023 Episodic Abdominal pain (4 sources) Indigestion; Translations: [Epigastric pain] Onset: 01-02-2023 01-02-2023 Episodic Administrative/social admission (4 sources) Finding of activity of daily living; Translations: [Limitation of activities due to disability] Onset: 06-08-2022 01-03-2023 Episodic Fluid and electrolyte disorders (4 sources) Hypokalemia; Translations: [Hypokalemia] Onset: 01-04-2023 01-04-2023 Episodic Mood disorders (4 sources) Mood disorders Onset: 03-22-2023 Resolved: 12-06-2023 03-22-2023 Noninfectious gastroenteritis (4 sources) Chronic diarrhea; Translations: [Noninfective gastroenteritis and colitis, unspecified] Onset: 01-02-2023 01-02-2023 Episodic Other and unspecified benign neoplasm (4 sources) Adenomatous polyp of colon ; Translations: [Benign neoplasm of colon, unspecified] Onset: 01-02-2023 01-02-2023 Episodic Other connective tissue disease (4 sources) Fibromyalgia; Translations: [Fibromyalgia] Onset: 01-02-2023 01-02-2023 Episodic Other connective tissue disease (4 sources) Muscle pain; Translations: [Myalgia, unspecified site] Onset: 01-02-2023 01-02-2023 Episodic Other connective tissue disease (4 sources) Muscle weakness; Translations: [Muscle weakness (generalized)] Onset: 06-08-2022 01-03-2023 Episodic Other diseases of veins and lymphatics (1 source) Stasis dermatitis; Translations: [Venous insufficiency (chronic) (peripheral)] Onset: 01-02-2023 01-02-2023 Episodic Other diseases of veins and lymphatics (3 sources) Disorder of vein of lower extremity; Translations: [Venous insufficiency (chronic) (peripheral)] Onset: 01-02-2023 01-02-2023 Episodic Other gastrointestinal disorders (4 sources) Constipation; Translations: [Constipation, unspecified] Onset: 01-02-2023 01-02-2023 Episodic Other injuries and conditions due to external causes (4 sources) History of fall; Translations: [History of falling] Onset: 06-08-2022 01-03-2023 Episodic Other nervous system disorders (4 sources) Abnormal gait due to impairment of balance; Translations: [Other abnormalities of gait and mobility] Onset: 06-08-2022 01-04-2023 Episodic Other upper respiratory disease (4 sources) Hoarse; Translations: [Dysphonia] Onset: 01-02-2023 01-02-2023 Episodic Other upper respiratory disease (4 sources) Nasal obstruction; Translations: [Other specified disorders of nose and nasal sinuses] Onset: 01-02-2023 01-02-2023 Episodic Residual codes; unclassified (4 sources) Altered mental status; Translations: [Altered mental status, unspecified] Onset: 01-02-2023 Resolved: 12-06-2023 01-02-2023 Episodic Screening and history of mental health and substance abuse codes (4 sources) H/O: psychiatric disorder; Translations: [Personal history of other mental and behavioral disorders] Onset: 12-03-2019 01-03-2023 Episodic Spondylosis; intervertebral disc disorders; other back problems (20 sources) Radiculopathy, lumbar region; Translations: [Spinal stenosis, lumbar region without neurogenic claudication] Onset: 01-04-2022 Episodic Unclassified (1 source) LOW BACK PAIN, UNSPECIFIED; Translations: [LOW BACK PAIN, UNSPECIFIED] Onset: 07-26-2022 Results Test Name Value Interpretation Reference Range Facility BI MAMMOGRAM SCREENING TOMOS YNTHESIS BILATERALon 05-17-2023 BI MAMMOGRAM SCREENING TOMOSYNTHESIS BILATERAL [...] IS VERY IMPORTANT TO YOUR HEALTH. THE [employer] GUIDELINES RECOMMEND THAT WOMEN 40 [...] [Mass/Vol] 238 mg/dL Critically high 74-106 T [facility] Comment on above: Performed By: #### P OCGLUC #### [facility] [address] [address] [address] Cammy Cleaning XR HIPS SOPHY 3_4V [...] joint and sacroiliac joint osteoarthritis. Normal [facility] MRI LSPINE WO CONon 07-11-19 23 MRI LSCHIRENO WO CON EXAMINATION: MRI LSCHIRENO WO CON HISTORY: Lumbar radiculopathy COMPARISON: No relevant [...] CHRISTEN BAKER Date: 2022-07-11 16:37 Normal [facility] CBC AUTO DIFFon 06-08-2022 BASO # 0.1 103/ul Normal 0.0-0.1 [facility] Comment on above: Performed By: #### C BC #### [facility] [address], [place] [address] Dr. Cammy Cleaning Basophils/100 WBC (Bld) 0.8 % Normal 0.2-2.0 [facility] Comment on above: Performed By: #### C BC #### [facility] [address] [place] [address] Dr. Cammy Cleaning EO # 0.5 103/ul Normal 0.0-0.7 [facility] Comment on above: Performed By: #### C BC #### [facility] [address] [place] [address] Dr. Cammy Cleaning Eosinophils/100 WBC (Bld) 5.2 % Normal 0.9-7.0 [facility] Comment on above: Performed By: #### C BC #### [facility] [address] [place] [address] Dr. Cammy Cleaning Erythrocyte distribution width (RBC) [Ratio] 14.8 % Normal 11.0-15.0 [facility] Comment on above: Performed By: #### C BC #### [facility] [address] [place] [address] Dr. Cammy Cleaning Hematocrit (Bld) [Volume fraction] 50.0 % Critically high 36.0-48.0 [facility] Comment on above: Performed By: #### C BC #### [facility] [address] [place] [address] Dr. Cammy Cleaning Hemoglobin (Bld) [Mass/Vol] 15.2 g/dL Normal 12.0-16.0 [facility] Comment on above: Performed By: #### C BC #### [facility] [address] [place] [address] Dr. Cammy Cleaning IG # 0.19 10e3/ul Critically high 0.00-0.03 [facility] Comment on above: Performed By: #### C BC #### [facility] [address] [place] [address] Dr. Cammy Cleaning IG % 1.8 % Critically high 0.0-0.5 [facility] Comment on above: Performed By: #### C BC #### [facility] [address] [place] [address] Dr. Cammy Cleaning LYMPH # 2.1 103/ul Normal 1.2-3.8 [facility] Comment on above: Performed By: #### C BC #### [facility] [address] [place] [address] Dr. Cammy Cleaning Lymphocytes/100 WBC (Bld) 19.6 % Critically low 20.5-60.0 [facility] Comment on above: Performed By: #### C BC #### [facility] [address] [place] [address] Dr. Cammy Cleaning MANUAL DIFF REQ NO Normal [facility] Comment on above: Performed By: #### C BC #### [facility] [address] [place] [address] Dr. Cammy Cleaning MCH (RBC) [Entitic mass] 27.6 pg Normal 26.7-34.0 [facility] Comment on above: Performed By: #### C BC #### [facility] [address] [place] [address] Dr. Cammy Cleaning MCHC (RBC) [Mass/Vol] 30.4 g/dL Normal 29.9-35.2 [facility] Comment on above: Performed By: #### C BC #### [facility] [address] [place] [address] Dr. Cammy Cleaning MCV (RBC) [Entitic vol] 90.7 fL Normal 81.0-99.0 [facility] Comment on above: Performed By: #### C BC #### [facility] [address] [place] [address] Dr. Cammy Cleaning MONO # 0.7 103/ul Normal 0.3-0.8 [facility] Comment on above: Performed By: #### C BC #### [facility] [address] [place] [address] Dr. Cammy Cleaning Monocytes/100 WBC (Bld) 7.0 % Normal 1.7-12.0 [facility] Comment on above: Performed By: #### C BC #### [facility] [address] [place] [address] Dr. Cammy Cleaning NEUT # 6.9 103/ul Critically high 1.4-6.5 [facility] Comment on above: Performed By: #### C BC #### [facility] [address] [place] [address] Dr. Cammy Cleaning Neutrophils/100 WBC (Bld) 65.6 % Normal 43.0-75.0 [facility] Comment on above: Performed By: #### C BC #### [facility] [address] [address] [address] Cammy Cleaning Platelet mean volume (Bld) [Entitic vol] 8.7 fL Critically low 9.5-13.5 [facility] Comment on above: Performed By: #### C BC #### [facility] [address] [address] [address] Cammy Cleaning PLT 166 103/ul Normal 150-450 [facility] Comment on above: Performed By: #### C BC #### [facility] [address] [place] [address] Dr. Cammy Cleaning RBC 5.51 106/ul Critically high 4.20-5.40 [facility] Comment on above: Performed By: #### C BC #### [facility] [address] [place] [address] Dr. Cammy Cleaning WBC 10.5 103/ul Normal 4.0-11.0 [facility] Comment on above: Performed By: #### C BC #### [facility] [address] [place] [address] Dr. Cammy Cleaning POINT OF CARE GLUCOSEon 05-29 Glucose [Mass/Vol] 134 mg/dL Critically high 74-106 T [facility] Comment on above: Performed By: #### P OCGLUC #### [facility] [address] [place] [address] Dr. Cammy Cleaning PROF 14(COMP METB)on 023 Albumin [Mass/Vol] 3.0 g/dL Critically low 3.4-5.0 [facility] Comment on above: Performed By: #### C MP ####[facility] [address] [address]Dr. Cammy Cleaning Albumin/Globulin [Mass ratio] 0.8 {ratio} Normal [facility] Comment on above: Performed By: #### C MP ####[facility] [address] [address]Dr. Cammy Cleaning ALP [Catalytic activity/Vol] 85 U/L Normal 46-116 [facility] Comment on above: Performed By: #### C MP ####[facility] [address] [place], [place] [address]Dr. Cammy Cleaning ALT [Catalytic activity/Vol] 19 U/L Normal 14-59 [facility] Comment on above: Performed By: #### C MP ####[facility] [address] [place], [place] [address]Dr. Cammy Black Anion gap [Moles/Vol] 6.9 mmol/L Normal [facility] Comment on above: Performed By: #### C MP ####[facility] [address] [place], [place] [address]Dr. Cammy Cleaning AST [Catalytic activity/Vol] 18 U/L Normal 15-37 [facility] Comment on above: Performed By: #### C MP ####[facility] [address] [place], [place] [address]Dr. Cammy Black Bilirubin [Mass/Vol] 0.6 mg/dL Normal 0.2-1.0 [facility] Comment on above: Performed By: #### C MP ####[facility] [address] [place], [place] [address]Dr. Cammy Black Calcium [Mass/Vol] 9.4 mg/dL Normal 8.5-10.1 [facility] Comment on above: Performed By: #### C MP ####[facility] [address] [place], [place] [address]Dr. Cammy Black Chloride [Moles/Vol] 99 mmol/L Normal 98-107 [facility] Comment on above: Performed By: #### C MP ####[facility] [address] [place], [place] [address]Dr. Cammy Cleaning CO2 [Moles/Vol] 37.8 mmol/L Critically high 21.0-32.0 [facility] Comment on above: Performed By: #### C MP ####[facility] [address] [place], [place] [address]Dr. Cammy Black Creatinine [Mass/Vol] 0.85 mg/dL Normal 0.55-1.02 [facility] Comment on above: Performed By: #### C MP ####[facility] [address] [id number][address] Cammy Cleaning EGFR-AF PARAGUAYAN >60 Normal >=60 [facility] Comment on above: Performed By: #### C MP ####[facility] [address] [id number][address] Cammy Black EGFR-NON AF PARAGUAYAN >60 Normal >=60 [facility] Comment on above: Performed By: #### C MP ####[facility] [address] [id number][address] Cammy Black Globulin (S) [Mass/Vol] 3.6 g/dL Normal [facility] Comment on above: Performed By: #### C MP ####[facility] [address] [address]Dr. Cammy Black Glucose [Mass/Vol] 139 mg/dL Critically high 74-106 [facility] Comment on above: Performed By: #### C MP ####[facility] [address] [id number][address] Cammy Black Potassium [Moles/Vol] 3.7 mmol/L Normal 3.5-5.1 [facility] Comment on above: Performed By: #### C MP ####[facility] [address] [id number][address] Cammy Black Protein [Mass/Vol] 6.6 g/dL Normal 6.4-8.2 [facility] Comment on above: Performed By: #### C MP ####[facility] [address] [id number]. Cammy Cleaning Sodium [Moles/Vol] 140 mmol/L Normal 136-145 [facility] Comment on above: Performed By: #### C MP ####[facility] [address] [id number]. Cammy Black Urea nitrogen [Mass/Vol] 14.0 mg/dL Normal 7.0-18.0 [facility] Comment on above: Performed By: #### C MP ####[facility] [address] [address]Dr. Cammy Cleaning Urea nitrogen/Creatinine [Mass ratio] 16.5 mg/mg Normal [facility] Comment on above: Performed By: #### C MP ####[facility] [address] [address]Dr. Cammy Cleaning BNPon 06-07-2022 Natriuretic peptide B (Bld) [Mass/Vol] 117.0 pg/mL Normal <=900.0 [facility] Comment on above: Performed By: #### C BC #### [facility] [address] [place] [address] Dr. Cammy Cleaning CBC AUTO DIFFon 06-07-2022 BASO # 0.1 103/ul Normal 0.0-0.1 [facility] Comment on above: Performed By: #### C BC #### [facility] [address] [place] [address] Dr. Cammy Cleaning Basophils/100 WBC (Bld) 0.6 % Normal 0.2-2.0 [facility] Comment on above: Performed By: #### C BC #### [facility] [address] [place] [address] Dr. Cammy Cleaning EO # 0.6 103/ul Normal 0.0-0.7 [facility] Comment on above: Performed By: #### C BC #### [facility] [address] [place] [address] Dr. Cammy Cleaning Eosinophils/100 WBC (Bld) 5.8 % Normal 0.9-7.0 [facility] Comment on above: Performed By: #### C BC #### [facility] [address] [place] [address] Dr. Cammy Cleaning Erythrocyte distribution width (RBC) [Ratio] 14.6 % Normal 11.0-15.0 [facility] Comment on above: Performed By: #### C BC #### [facility] [address] [place] [address] Dr. Cammy Cleaning Hematocrit (Bld) [Volume fraction] 45.8 % Normal 36.0-48.0 [facility] Comment on above: Performed By: #### C BC #### [facility] [address] [place] [address] Dr. Cammy Cleaning Hemoglobin (Bld) [Mass/Vol] 14.4 g/dL Normal 12.0-16.0 [facility] Comment on above: Performed By: #### C BC #### [facility] [address] [place] [address] Dr. Cammy Cleaning IG # 0.18 10e3/ul Critically high 0.00-0.03 [facility] Comment on above: Performed By: #### C BC #### [facility] [address] [place] [address] Dr. Cammy Cleaning IG % 1.7 % Critically high 0.0-0.5 [facility] Comment on above: Performed By: #### C BC #### [facility] [address] [place] [address] Dr. Cammy Cleaning LYMPH # 1.8 103/ul Normal 1.2-3.8 [facility] Comment on above: Performed By: #### C BC #### [facility] [address] [place] [address] Dr. Cammy Cleaning Lymphocytes/100 WBC (Bld) 16.1 % Critically low 20.5-60.0 [facility] Comment on above: Performed By: #### C BC #### [facility] [address] [place] [address] Dr. Cammy Cleaning MANUAL DIFF REQ NO Normal [facility] Comment on above: Performed By: #### C BC #### [facility] [address] [place] [address] Dr. Cammy Cleaning MCH (RBC) [Entitic mass] 27.7 pg Normal 26.7-34.0 [facility] Comment on above: Performed By: #### C BC #### [facility] [address] [place] [address] Dr. Cammy Cleaning MCHC (RBC) [Mass/Vol] 31.4 g/dL Normal 29.9-35.2 [facility] Comment on above: Performed By: #### C BC #### [facility] [address] [place] [address] Dr. Cammy Cleaning MCV (RBC) [Entitic vol] 88.1 fL Normal 81.0-99.0 [facility] Comment on above: Performed By: #### C BC #### [facility] [address] [place] [address] Dr. Cammy Cleaning MONO # 0.9 103/ul Critically high 0.3-0.8 [facility] Comment on above: Performed By: #### C BC #### [facility] [address] [place] [address] Dr. Cammy Cleaning Monocytes/100 WBC (Bld) 8.2 % Normal 1.7-12.0 [facility] Comment on above: Performed By: #### C BC #### [facility] [address] [place] [address] Dr. Cammy Cleaning NEUT # 7.3 103/ul Critically high 1.4-6.5 [facility] Comment on above: Performed By: #### C BC #### [facility] [address] [place] [address] Dr. Cammy Cleaning Neutrophils/100 WBC (Bld) 67.6 % Normal 43.0-75.0 [facility] Comment on above: Performed By: #### C BC #### [facility] [address] [place] [address] Dr. Cammy Cleaning Platelet mean volume (Bld) [Entitic vol] 8.8 fL Critically low 9.5-13.5 [facility] Comment on above: Performed By: #### C BC #### [facility] [address] [place] [address] Dr. Cammy Cleaning PLT 169 103/ul Normal 150-450 [facility] Comment on above: Performed By: #### C BC #### [facility] [address] [place] [address] Dr. Cammy Cleaning RBC 5.20 106/ul Normal 4.20-5.40 [facility] Comment on above: Performed By: #### C BC #### [facility] [address], [place] [address] Dr. Cammy Cleaning WBC 10.9 103/ul Normal 4.0-11.0 [facility] Comment on above: Performed By: #### C BC #### [facility] [address], [place] [address] Dr. Cammy Cleaning ECHOCARDIO M/2D COMPLETEon 0 06-07-2022 ECHOCARDIO M/2D COMPLETE Patient: SANNA CORRALES Exam Date: 06/07/2022 : 1960 Gender:F Ordering : DR. WILLEM HIDALGO . Admission #: [id number] Family : OMID MARTINS . Order #: [id number] CLICK HERE TO VIEW EXAM ECHOCARDIOGRAM REPORT [...] Arellano M.D. on 06/09/2022 at 10:48 Normal [facility] FREE T4on 06-07-2022 Free T4 [Mass/Vol] 1.21 ng/dL Normal 0.76-1.46 [facility] Comment on above: Performed By: #### C BC #### [facility] [address] [address] [address] Cammy Cleaning GLYCOHEMOGLOBIN A1Con 2022 ADA RECOMMENDATION SEE BELOW Normal [facility] Comment on above: Result Comment: ADA RECOMMENDED LIMIT 4.0 - 6.0 ADA THERAPEUTIC TARGET < 7.0 ACTION SUGGESTED > 7.0 Performed By: #### P OCGLUC #### [facility] [address] [address] [address] Cammy Cleaning Glucose [Mass/Vol] 171 mg/dL Normal [facility] Comment on above: Performed By: #### P OCGLUC #### [facility] [address] [address] [address] Cammy Cleaning HbA1c (Bld) [Mass fraction] 7.6 % Critically high 4.5-6.2 [facility] Comment on above: Performed By: #### P OCGLUC #### [facility] [address] [address] [address] Cammy Cleaning POINT OF CARE GLUCOSEon 05-29 Glucose [Mass/Vol] 141 mg/dL Critically high 74-106 [facility] Comment on above: Performed By: #### C BC #### [facility] [address] [address] [address] Cammy Cleaning Glucose [Mass/Vol] 161 mg/dL Critically high 74-106 [facility] Comment on above: Performed By: #### P OCGLUC ####[facility] [address] [address]Dr. Cammy Cleaning Glucose [Mass/Vol] 148 mg/dL Critically high 74-106 [facility] Comment on above: Performed By: #### P OCGLUC ####[facility] [address] [address]Dr. Cammy Cleaning PROF 14(COMP METB)on 023 Albumin [Mass/Vol] 2.7 g/dL Critically low 3.4-5.0 [facility] Comment on above: Performed By: #### C MP #### [facility] [address] [place] [address] Dr. Cammy Cleaning Albumin/Globulin [Mass ratio] 0.8 {ratio} Normal [facility] Comment on above: Performed By: #### C MP #### [facility] [address] [place] [address] Dr. Cammy Cleaning ALP [Catalytic activity/Vol] 85 U/L Normal 46-116 [facility] Comment on above: Performed By: #### C MP #### [facility] [address] [place] [address] Dr. Cammy Cleaning ALT [Catalytic activity/Vol] 15 U/L Normal 14-59 [facility] Comment on above: Performed By: #### C MP #### [facility] [address] [place] [address] Dr. Cammy Cleaning Anion gap [Moles/Vol] 8.3 mmol/L Normal [facility] Comment on above: Performed By: #### C MP #### [facility] [address] [place] [address] Dr. Cammy Cleaning AST [Catalytic activity/Vol] 17 U/L Normal 15-37 [facility] Comment on above: Performed By: #### C MP #### [facility] [address] [place] [address] Dr. Cammy Cleaning Bilirubin [Mass/Vol] 0.6 mg/dL Normal 0.2-1.0 [facility] Comment on above: Performed By: #### C MP #### [facility] [address] [place] [address] Dr. Cammy Cleaning Calcium [Mass/Vol] 8.9 mg/dL Normal 8.5-10.1 [facility] Comment on above: Performed By: #### C MP #### [facility] [address] [place] [address] Dr. Cammy Cleaning Chloride [Moles/Vol] 102 mmol/L Normal 98-107 [facility] Comment on above: Performed By: #### C MP #### [facility] [address] [place] [address] Dr. Cammy Cleaning CO2 [Moles/Vol] 34.6 mmol/L Critically high 21.0-32.0 [facility] Comment on above: Performed By: #### C MP #### [facility] [address] [address] [address] Cammy Cleaning Creatinine [Mass/Vol] 0.80 mg/dL Normal 0.55-1.02 [facility] Comment on above: Performed By: #### C MP #### [facility] [address] [address] [address] Cammy Cleaning EGFR-AF PARAGUAYAN >60 Normal >=60 [facility] Comment on above: Performed By: #### C MP #### [facility] [address] [address] [address] Cammy Cleaning EGFR-NON AF PARAGUAYAN >60 Normal >=60 [facility] Comment on above: Performed By: #### C MP #### [facility] [address] [address] [address] Cammy Cleaning Globulin (S) [Mass/Vol] 3.2 g/dL Normal [facility] Comment on above: Performed By: #### C MP #### [facility] [address] [address] [address] Cammy Cleaning Glucose [Mass/Vol] 128 mg/dL Critically high 74-106 T [facility] Comment on above: Performed By: #### C MP #### [facility] [address] [address] [address] Cammy Cleaning Potassium [Moles/Vol] 3.9 mmol/L Normal 3.5-5.1 [facility] Comment on above: Performed By: #### C MP #### [facility] [address] [address] [address] Cammy Cleaning Protein [Mass/Vol] 5.9 g/dL Critically low 6.4-8.2 [facility] Comment on above: Performed By: #### C MP #### [facility] [address] [address] [address] Cammy Cleaning Sodium [Moles/Vol] 141 mmol/L Normal 136-145 [facility] Comment on above: Performed By: #### C MP #### [facility] [address] [address] [address] Cammy Cleaning Urea nitrogen [Mass/Vol] 11.0 mg/dL Normal 7.0-18.0 [facility] Comment on above: Performed By: #### C MP #### [facility] [address] [address] [address] Cammy Cleaning Urea nitrogen/Creatinine [Mass ratio] 13.8 mg/mg Normal [facility] Comment on above: Performed By: #### C MP #### [facility] [address] [address] [address] Cammy Cleaning TSHon 06-07-2022 TSH 2.839 uIU/mL Normal 0.358-3.740 [facility] Comment on above: Performed By: #### T SH ####[facility] [address] [place], [place] [address]Dr. Cammy Cleaning ACETAMINOPHENon 06-06-2022 Acetaminophen [Mass/Vol] ug/mL Normal 10.0-30.0 [facility] Comment on above: Performed By: #### A CARLOS STEVE, ETH ####[facility] [address] [place], [place] [address]DrNoreen Cleaning BLOOD GASES BTYon 06-06-2022 02 MODE NASAL CANNULA Normal [facility] Comment on above: Performed By: #### A BG ####[facility] [address] [address]DrNoreen Cleaning ALLENS TEST Positive Normal [facility] Comment on above: Performed By: #### A BG ####[facility] [address] [address]DrNoreen Cleaning Base excess Calc (Bld) [Moles/Vol] 9.4 mmol/L Critically high -2.0-2.0 [facility] Comment on above: Performed By: #### A BG ####[facility] [address] [place], [place] [address]DrNoreen Cleaning BIPAP PRESSURE Normal [facility] Comment on above: Performed By: #### A BG ####[facility] [address] [address]Dr. Cammy Cleaning CPAP Normal [facility] Comment on above: Performed By: #### A BG ####[facility] [address] [address]Dr. Cammy Cleaning FIO2 Normal [facility] Comment on above: Performed By: #### A BG ####[facility] [address] [place], [place] [address]Dr. Cammy Cleaning HCO3 (Bld) [Moles/Vol] 35.1 mmol/L Critically high 22.0-26.0 [facility] Comment on above: Performed By: #### A BG ####[facility] [address] [place], [place] [address]Dr. Cammy Cleaning LPM 2 Normal [facility] Comment on above: Performed By: #### A BG ####[facility] [address] [place], [place] [address]Dr. Cammy Cleaning MINUTE VOLUME Normal [facility] Comment on above: Performed By: #### A BG ####[facility] [address] [place], [place] [address]Dr. Cammy Cleaning Oxygen (Bld) [Partial pressure] 59.8 mm[Hg] Critically low 80.0-100.0 The [facility] Comment on above: Performed By: #### A BG ####[facility] [address] [place], [place] [address]Dr. Cammy Cleaning Oxygen saturation in Blood 92.4 % Critically low 95.0-100.0 The [facility] Comment on above: Performed By: #### A BG ####[facility] [address] [place], [place] [address]Dr. Cammy Cleaning PCO2 63.7 mmHg Critically high 35.0-45.0 The [facility] Comment on above: Performed By: #### A BG ####[facility] [address] [place], [place] [address]Dr. Cammy Cleaning PEEP [facility] Comment on above: Performed By: #### A BG ####[facility] [address] [address]Dr. Cammy Cleaning pH (Bld) 7.349 [pH] Critically low 7.350-7.450 [facility] Comment on above: Performed By: #### A BG ####[facility] [address] [address]Dr. Cammy Cleaning PIP [facility] Comment on above: Performed By: #### A BG ####[facility] [address] [address]Dr. Cammy Cleaning PS [facility] Comment on above: Performed By: #### A BG ####[facility] [address] [address]Dr. Cammy Cleaning PUNCTURE SITE [facility] Comment on above: Performed By: #### A BG ####[facility] [address] [address]Dr. Cammy Cleaning RATE [facility] Comment on above: Performed By: #### A BG ####[facility] [address] [address]Dr. Cammy Cleaning VENT MODE [facility] Comment on above: Performed By: #### A BG ####[facility] [address] [address]Dr. Cammy Cleaning [place] [facility] Comment on above: Performed By: #### A BG ####[facility] [address] [address]Dr. Cammy Cleaning BNPon 06-06-2022 Natriuretic peptide B (Bld) [Mass/Vol] 81.0 pg/mL Normal <=900.0 [facility] Comment on above: Performed By: #### C BC #### [facility] [address] [address] [address] Cammy Cleaning CARDIAC PILLO 3-6on 3 CK [Catalytic activity/Vol] 205 U/L Critically high 26-192 [facility] Comment on above: Performed By: #### C MREP #### [facility] [address] [address] [address] Cammy Cleaning CK.MB [Mass/Vol] 0.77 ng/mL Normal <=3.60 [facility] Comment on above: Performed By: #### C MREP #### [facility] [address] [place] [address] Dr. Cammy Cleaning HSTROP 7.5 pg/mL Normal 4.0-51.3 The [facility] Comment on above: Result Comment: CUT- OFF POINTS HAVE BEEN ESTABLISHED BASED ON THE FOURTH UNIVERSAL DEFINITIONS OF MYOCARDIAL INFARCTION. THE UPPER REFERENCE LIMIT (URL) OF TROPONIN, DEFINED THE 99TH PERCENTILE OF cTnI DISTRIBUTION IN A REFERENCE POPULATION, HAS BEEN CONFIRMED THE DECISION THRESHOLD FOR MT DIAGNOSIS. Performed By: #### C MREP #### [facility] [address] [place] [address] Dr. Cammy Cleaning CK [Catalytic activity/Vol] 220 U/L Critically high 26-192 [facility] Comment on above: Performed By: #### C BC #### [facility] [address] [place] [address] Dr. Cammy Cleaning CK.MB [Mass/Vol] 0.86 ng/mL Normal <=3.60 [facility] Comment on above: Performed By: #### C BC #### [facility] [address] [place] [address] Dr. Cammy Cleaning HSTROP 8.7 pg/mL Normal 4.0-51.3 The [facility] Comment on above: Result Comment: CUT- OFF POINTS HAVE BEEN ESTABLISHED BASED ON THE FOURTH UNIVERSAL DEFINITIONS OF MYOCARDIAL INFARCTION. THE UPPER REFERENCE LIMIT (URL) OF TROPONIN, DEFINED THE 99TH PERCENTILE OF cTnI DISTRIBUTION IN A REFERENCE POPULATION, HAS BEEN CONFIRMED THE DECISION THRESHOLD FOR MT DIAGNOSIS. Performed By: #### C BC #### [facility] [address] [place] [address] Dr. Cammy Cleaning CBC AUTO DIFFon 06-06-2022 BASO # 0.1 103/ul Normal 0.0-0.1 [facility] Comment on above: Performed By: #### C BC #### [facility] [address] [address] [address] Cammy Cleaning Basophils/100 WBC (Bld) 0.7 % Normal 0.2-2.0 [facility] Comment on above: Performed By: #### C BC #### [facility] [address] [address] [address] Cammy Cleaning EO # 0.6 103/ul Normal 0.0-0.7 [facility] Comment on above: Performed By: #### C BC #### [facility] [address] [address] [address] Cammy Cleaning Eosinophils/100 WBC (Bld) 5.4 % Normal 0.9-7.0 [facility] Comment on above: Performed By: #### C BC #### [facility] [address] [place] [address] Dr. Cammy Cleaning Erythrocyte distribution width (RBC) [Ratio] 14.6 % Normal 11.0-15.0 [facility] Comment on above: Performed By: #### C BC #### [facility] [address] [address] [address] Cammy Cleaning Hematocrit (Bld) [Volume fraction] 47.2 % Normal 36.0-48.0 [facility] Comment on above: Performed By: #### C BC #### [facility] [address] [place] [address] Dr. Cammy Cleaning Hemoglobin (Bld) [Mass/Vol] 15.4 g/dL Normal 12.0-16.0 [facility] Comment on above: Performed By: #### C BC #### [facility] [address] [address] [address] Cammy Cleaning IG # 0.19 10e3/ul Critically high 0.00-0.03 [facility] Comment on above: Performed By: #### C BC #### [facility] [address] [address] [address] Cammy Cleaning IG % 1.7 % Critically high 0.0-0.5 The [facility] Comment on above: Performed By: #### C BC #### [facility] [address] [address] [address] Cammy Cleaning LYMPH # 1.8 103/ul Normal 1.2-3.8 The [facility] Comment on above: Performed By: #### C BC #### [facility] [address] [place] [address] Dr. Cammy Cleaning Lymphocytes/100 WBC (Bld) 16.0 % Critically low 20.5-60.0 [facility] Comment on above: Performed By: #### C BC #### [facility] [address] [place] [address] Dr. Cammy Cleaning MANUAL DIFF REQ NO Normal [facility] Comment on above: Performed By: #### C BC #### [facility] [address] [place] [address] Dr. Cammy Cleaning MCH (RBC) [Entitic mass] 27.7 pg Normal 26.7-34.0 [facility] Comment on above: Performed By: #### C BC #### [facility] [address] [place] [address] Dr. Cammy Cleaning MCHC (RBC) [Mass/Vol] 32.6 g/dL Normal 29.9-35.2 The [facility] Comment on above: Performed By: #### C BC #### [facility] [address] [place] [address] Dr. Cammy Cleaning MCV (RBC) [Entitic vol] 85.0 fL Normal 81.0-99.0 [facility] Comment on above: Performed By: #### C BC #### [facility] [address] [place] [address] Dr. Cammy Cleaning MONO # 0.8 103/ul Normal 0.3-0.8 The [facility] Comment on above: Performed By: #### C BC #### [facility] [address] [place] [address] Dr. Cammy Cleaning Monocytes/100 WBC (Bld) 6.8 % Normal 1.7-12.0 [facility] Comment on above: Performed By: #### C BC #### [facility] [address] [place], [place] [address] Dr. Cammy Cleaning NEUT # 7.8 103/ul Critically high 1.4-6.5 [facility] Comment on above: Performed By: #### C BC #### [facility] [address] [place] [address] Dr. Cammy Cleaning Neutrophils/100 WBC (Bld) 69.4 % Normal 43.0-75.0 [facility] Comment on above: Performed By: #### C BC #### [facility] [address] [place] [address] Dr. Cammy Cleaning Platelet mean volume (Bld) [Entitic vol] 9.0 fL Critically low 9.5-13.5 The [facility] Comment on above: Performed By: #### C BC #### [facility] [address] [place] [address] Dr. Cammy Cleaning PLT 162 103/ul Normal 150-450 [facility] Comment on above: Performed By: #### C BC #### [facility] [address] [place] [address] Dr. Cammy Cleaning RBC 5.55 106/ul Critically high 4.20-5.40 [facility] Comment on above: Performed By: #### C BC #### [facility] [address] [place] [address] Dr. Cammy Cleaning WBC 11.3 103/ul Critically high 4.0-11.0 [facility] Comment on above: Performed By: #### C BC #### [facility] [address] [place] [address] ABD/PELV W CONon [...] by: Christo SARAVIA Date: 2022-06-06 02:29 Normal [facility] CT CSPINE WO CONon 3 CT [...] by: WILL HOGAN Date: 2022-06-06 02:09 Normal [facility] CT HEAD WO CONon 06-06-2022 CT [...] Christo SARAVIA Date: 2022-06-06 02:07 Normal The [facility] CT LSPINE WO CONon 3 CT [...] Christo SARAVIA Date: 2022-06-06 02:29 Normal The [facility] CTA ABD/PELVIS WO W CONon CTA [...] ANISH JACKSON Date: 2022-06-06 04:15 Normal [facility] Covid-19 PCR (CVDTB)on SARS-CoV-2 (COVID-19) RNA JOSE L+probe Ql (Unsp spec) Not detected Normal NOT DETECTED The [facility] Comment on above: Result Comment: When [...] for this test is supported by the [place] of Health and Human Service's declaration that [...] used). Performed By: #### C BC #### [facility] [address] [place] [address] Dr. Cammy Cleaning DRUG SCREEN RAPID (URINE)on 06-06-2022 AMP Negative Normal NEGATIVE [facility] Comment on above: Performed By: #### D FLOYD, ERUR #### [facility] [address] [place] [address] Dr. Cammy Cleaning BAR Negative Normal NEGATIVE [facility] Comment on above: Performed By: #### D FLOYD, ERUR #### [facility] [address] [place] [address] Dr. Cammy Cleaning BUP Negative Normal NEGATIVE [facility] Comment on above: Performed By: #### D FLOYD, ERUR #### [facility] [address] [place] [address] Dr. Cammy Cleaning BZO Negative Normal NEGATIVE [facility] Comment on above: Performed By: #### D PATRICIAD, ERUR #### [facility] [address] [place] [address] Dr. Cammy Cleaning JEM Negative Normal NEGATIVE [facility] Comment on above: Performed By: #### D FLOYD, ERUR #### [facility] [address] [place] [address] Dr. Cammy Cleaning CUT-OFFS SEE BELOW Normal [facility] Comment on above: Result Comment: AMP [...] Performed By: #### D RUGRPD, ERUR #### [facility] [address] [place] [address] Dr. Cammy Cleaning DRUG CUT HEADER DRUG CLASS TEST SYSTEM CUT-OFF CONCENTRATIONS ARE FOLLOWS: Normal [facility] Comment on above: Performed By: #### D RUGRPD, ERUR #### [facility] [address] [place] [address] Dr. Cammy Cleaning mAMP Negative Normal NEGATIVE [facility] Comment on above: Performed By: #### D RUGRPD, ERUR #### [facility] [address] [place] [address] Dr. Cammy Cleaning MTD Negative Normal NEGATIVE [facility] Comment on above: Performed By: #### D RUGRPD, ERUR #### [facility] [address] [place] [address] Dr. Cammy Cleaning OPI Positive Abnormal NEGATIVE [facility] Comment on above: Performed By: #### D RUGRPD, ERUR #### [facility] [address] [place] [address] Dr. Cammy Cleaning OXY Negative Normal NEGATIVE [facility] Comment on above: Performed By: #### D RUGRPD, ERUR #### [facility] [address] [place] [address] Dr. Cammy Cleaning PCP Negative Normal NEGATIVE [facility] Comment on above: Performed By: #### D RUGRPD, ERUR #### [facility] [address] [place] [address] Dr. Cammy Cleaning PPX Negative Normal NEGATIVE [facility] Comment on above: Performed By: #### D FLOYD, ERUR #### [facility] [address] [address] [address] Cammy Cleaning TCA Negative Normal NEGATIVE [facility] Comment on above: Performed By: #### D FLOYD, ERUR #### [facility] [address] [place] [address] Dr. Cammy Cleaning THC Negative Normal NEGATIVE [facility] Comment on above: Performed By: #### D FLOYD, ERUR #### [facility] [address] [place] [address] Dr. Cammy Cleaning ER URINE PROFILEon 3 Bilirubin Ql (U) Negative Normal NEGATIVE [facility] Comment on above: Performed By: #### D FLOYD, ERUR #### [facility] [address] [place] [address] Dr. Cammy Cleaning Clarity (U) CLEAR Normal CLEAR [facility] Comment on above: Performed By: #### Mayda BARRIENTOS, ERUR #### [facility] [address] [place] [address] Dr. Cammy Cleaning Color (U) YELLOW Normal YELLOW [facility] Comment on above: Performed By: #### D FLOYD, ERUR #### [facility] [address] [place] [address] Dr. Cammy VELIZ A micrscopic examination will be performed if indicated. Normal [facility] Comment on above: Performed By: #### Mayda BARRIENTOS, ERUR #### [facility] [address] [place] [address] Dr. Cammy Cleaning Glucose Ql (U) >1000 Abnormal NEGATIVE [facility] Comment on above: Performed By: #### Mayda BARRIENTOS, ERUR #### [facility] [address] [place] [address] Dr. Cammy Cleaning Hemoglobin Ql (U) Negative Normal NEGATIVE [facility] Comment on above: Performed By: #### D FLOYD, ERUR #### [facility] [address] [place] [address] Dr. Cammy Cleaning Ketones Ql (U) Negative Normal NEGATIVE [facility] Comment on above: Performed By: #### D FLOYD, ERUR #### [facility] [address] [address] [address] Cammy Cleaning LEUKOCYTES Negative Normal NEGATIVE [facility] Comment on above: Performed By: #### D FLOYD, ERUR #### [facility] [address] [address] [address] Cammy Cleaning Nitrite Ql (U) Negative Normal NEGATIVE [facility] Comment on above: Performed By: #### D FLOYD, ERUR #### [facility] [address] [address] [address] Cammy Cleaning pH (U) 5.0 [pH] Normal 5-9 [facility] Comment on above: Performed By: #### D FLOYD, ERUR #### [facility] [address] [place] [address] Dr. Cammy Cleaning SPEC GRAVITY 1.010 Normal 1.005-<=1.025 [facility] Comment on above: Performed By: #### D FLOYD, ERUR #### [facility] [address] [address] [address] Cammy Cleaning UA PROTEIN TRACE Normal NEGATIVE/ TRACE The [facility] Comment on above: Performed By: #### D FLOYD, ERUR #### [facility] [address] [place] [address] Dr. Cammy Cleaning UR MICRO IND NOT INDICATED Normal [facility] Comment on above: Performed By: #### D FLOYD, ERUR #### [facility] [address] [place] [address] Dr. Cammy Cleaning Urobilinogen Qn (U) 0.2 {Flory'U}/dL Normal 0.2 - 1. 0 [facility] Comment on above: Performed By: #### D FLOYD, ERUR #### [facility] [address] [place] [address] Dr. Cammy Cleaning ETHANOL (BLD ALC)on 06-06-19 ALC NOTE NOTE: 80 mg/dl is th e legal limit for a blood alcohol level Normal [facility] Comment on above: Performed By: #### A CARLOS STEVE, KAILEY ####[facility] [address] [id number][address] Cammy Cleaning Ethanol [Mass/Vol] mg/dL Normal [facility] Comment on above: Performed By: #### A CARLOS STEVE, KAILEY ####[facility] [address] [id number][address] Cammy Cleaning POINT OF CARE GLUCOSEon Glucose [Mass/Vol] 180 mg/dL Critically high -106 [facility] Comment on above: Performed By: #### P OCGLUC #### [facility] [address] [address] [address] Cammy Cleaning Glucose [Mass/Vol] 133 mg/dL Critically high [facility]106 [facility] Comment on above: Performed By: #### C BC #### [facility] [address] [address] [address] Cammy Cleaning Glucose [Mass/Vol] 201 mg/dL Critically high [facility]106 [facility] Comment on above: Performed By: #### C BC #### [facility] [address] [address] [address] Cammy Cleaning Glucose [Mass/Vol] 112 mg/dL Critically high [facility]106 [facility] Comment on above: Performed By: #### P OCGLUC #### [facility] [address] [address] [address] Cammy Cleaning PROF CHEM 8 (BAS METB)on Anion gap [Moles/Vol] 6.7 mmol/L Normal [facility] Comment on above: Performed By: #### C BC #### [facility] [address] [address] [address] Cammy Cleaning Calcium [Mass/Vol] 8.7 mg/dL Normal 8.5-10.1 [facility] Comment on above: Performed By: #### C BC #### [facility] [address] [address] [address] Cammy Cleaning Chloride [Moles/Vol] 102 mmol/L Normal 98-107 [facility] Comment on above: Performed By: #### C BC #### [facility] [address] [address] [address] Cammy Cleaning CO2 [Moles/Vol] 35.6 mmol/L Critically high 21.0-32.0 [facility] Comment on above: Performed By: #### C BC #### [facility] [address] [address] [address] Cammy Cleaning Creatinine [Mass/Vol] 0.93 mg/dL Normal 0.55-1.02 [facility] Comment on above: Performed By: #### C BC #### [facility] [address] [place] [address] Dr. Cammy Cleaning EGFR-AF PARAGUAYAN >60 Normal >=60 [facility] Comment on above: Performed By: #### C BC #### [facility] [address] [place] [address] Dr. Cammy Cleaning EGFR-NON AF PARAGUAYAN >60 Normal >=60 [facility] Comment on above: Performed By: #### C BC #### [facility] [address] [place] [address] Dr. Cammy Cleaning Glucose [Mass/Vol] 169 mg/dL Critically high 74-106 [facility] Comment on above: Performed By: #### C BC #### [facility] [address] [place] [address] Dr. Cammy Cleaning Potassium [Moles/Vol] 4.3 mmol/L Normal 3.5-5.1 [facility] Comment on above: Performed By: #### C BC #### [facility] [address] [address] [address] Cammy Cleaning Sodium [Moles/Vol] 140 mmol/L Normal 136-145 [facility] Comment on above: Performed By: #### C BC #### [facility] [address] [place] [address] Dr. Cammy Cleaning Urea nitrogen [Mass/Vol] 15.0 mg/dL Normal 7.0-18.0 [facility] Comment on above: Performed By: #### C BC #### [facility] [address] [place], [place] [address] Dr. Cammy Cleaning Urea nitrogen/Creatinine [Mass ratio] 16.1 mg/mg Normal [facility] Comment on above: Performed By: #### C BC #### [facility] [address] [place], [place] [address] Dr. Cammy Cleaning SALICYLATEon 06-06-2022 SALICYLATE 1.6 mg/dL Normal <=19.9 [facility] Comment on above: Performed By: #### A CET, SALYC, ETH ####[facility] [address] [place], [place] [address]JiDr. 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 EMS called for lift assist. No LOC, [...] Completed by: Tyler Ingram DO Normal [facility] XR CSPINE 2_3 VIEWSon 2021 XR [...] by: CHRISTEN BAKER Date: 2022-01-04 19:14 Normal [facility] CT SINUSES WO CONon 11-23-19 22 [...] by: ANISH ROJO Date: 2021-11-22 13:29 Normal [facility] Vital Signs Date Time Vital Sign Value Performing Clinician Facility 03-14-2024 09:55-0400 Body mass index (BMI) [Ratio] 53.51 kg/m2 Yarelis Weinberg APRN-FRAME BANDER Work Phone: [facility] 03-14-2024 09:55-0400 Body weight 124.29 kg Yarelis Coffmansechristo GENERAL INTERN-FRAME BANDER Work Phone: [facility] 03-14-2024 09:55-0400 Diastolic blood pressure 82 mm[Hg] Yarelis Coffmansechristo GENERAL INTERN-FRAME BANDER Work Phone: [facility] 03-14-2024 09:55-0400 Heart rate 72 /min Yarelis Coffmansechristo GENERAL INTERN-FRAME BANDER Work Phone: [facility] 03-14-2024 09:55-0400 SaO2% (BldA) [Mass fraction] 85 % Yarelis Coffmansechristo GENERAL INTERN-FRAME BANDER Work Phone: [facility] 03-14-2024 09:55-0400 Systolic blood pressure 134 mm[Hg] Yarelis Coffmansechristo GENERAL INTERN-FRAME BANDER Work Phone: [facility] 01-25-2022 11:40-0400 Diastolic blood pressure 82 mm[Hg] [facility] 01-25-2022 11:40-0400 Heart rate 76 /min [facility] 01-25-2022 11:40-0400 Respiratory rate 20 /min [facility] 01-25-2022 11:40-0400 SaO2% (BldA) [Mass fraction] 94 % [facility] Comment on above: 01-25-2022 11:40-0400 Systolic blood pressure 123 mm[Hg] [facility] Encounters Encounter Date Encounter Type Care Provider Facility Start: 03-14-2024 End: 03-14-2024 Bamboo flowsheet Yarelis Coffmansechristo GENERAL INTERN-FRAME BANDER Work Phone: [facility] Start: 03-14-2024 End: 03-14-2024 Bamboo flowsheet Yarelis Coffmansechristo GENERAL INTERN-FRAME BANDER Work Phone: [facility] Start: 03-14-2024 End: 03-14-2024 Office outpatient new 60 minutes Yarelis Weinberg GENERAL INTERN-FRAME BANDER Work Phone: [facility] Comment on above: Mixed bipolar affect nickie disorder, moderate (CMS/HCC); JENN (generalized anxiety disorder) (CMS/HCC) Start: 03-14-2024 End: 03-14-2024 ambulatory YARELIS WEINBERG Not Available Start: 02-21-2024 End: 02-21-2024 ambulatory ERIN Vail HEMMONTSERRAT Not Available Start: 01-05-2024 End: 01-05-2024 ambulatory SWATHI BACA Not Available Start: 12-06-2023 End: 12-06-2023 ambulatory ERIN Vail HEMMONTSERRAT Not Available Start: 11-28-2023 End: 11-28-2023 ambulatory SWATHI BACA Not Available Start: 10-04-2023 End: 10-04-2023 ambulatory TYLER ESTRADA Not Available Start: 09-05-2023 End: 09-05-2023 ambulatory ERIN Vail HEMMONTSERRAT Not Available Start: 07-05-2023 Chart abstracting Erin M Jennifer er PA Work Phone: [facility] Start: 05-17-2023 End: 05-17-2023 ambulatory ERIN M HEMMONTSERRAT Not Available Start: 05-09-2023 ambulatory Pratik Ramos acility:[facility] Start: 09-01-2022 ambulatory NARENDRANATH LAKSHMIPATHY . Facility:[facility] Start: 08-23-2022 End: 08-23-2022 ambulatory NARENDRANATH LAKSHMIPATHY . Facility:[facility] Start: 07-28-2022 End: 07-29-2022 ambulatory NARENDRANATH LAKSHMIPATHY . Facility:[facility] Start: 07-26-2022 End: 07-27-2022 ambulatory NARENDRANATH LAKSHMIPATHY . Facility:[facility] Start: 07-11-2022 End: 07-12-2022 ambulatory CHRISTEN BAKER Facility:[facility] Start: 06-06-2022 End: 06-08-[address] JER RIZO Facility:[facility] Start: 05-10-2022 End: 05-11-2022 ambulatory MR TYLER ESTRAAD . Facility:[facility] Start: 01-25-2022 End: 02-02-2022 ambulatory UNKNOWN PROVIDER Facility:[facility] Start: 01-14-2022 End: 01-14-2022 ambulatory [facility] Emergenc y Triage, Treat and Transport Start: 01-14-2022 End: 01-14-2022 Emergency department patient visit [facility] Emergency Triage, Treat and Transport Comment on above: Arrived Start: 01-04-2022 End: 01-05-[address] JER RIZO Facility:[facility] Start: 11-22-2021 End: 11-23-[address] ERIN TARIQ Facility:[facility] Procedures Date Procedure Procedure Detail Performing Clinician Start: 05-17-2023 Mammography Erin KINGSLEY Work Phone: Start: 11-16-2015 Colonoscopy Erin KINGSLEY Work Phone: Plan of Treatment Date Care Activity Detail Author Start: 11-27-2025 Glaucoma screening Diabetes: R etinopathy Screening [facility] Start: 11-15-2025 Screening for malign ant neoplasm of colon [facility] Start: 01-26-2025 Glaucoma screening Diabetes: R etinopathy Screening [facility] Start: 12-05-2024 Medicare Annual Well ness (AWV) Medicare Annual Wellness (AWV) [facility] Start: 05-17-2024 Screening for malign ant neoplasm of breast Mammogram [facility] Start: 04-17-2024 End: 04-17-2024 Patient encounter procedure 04/17/2024 1:30 PM EST Office Visit [facility] [address] [place] [address] Yarelis Weinberg, GENERAL INTERN-FRAME BANDER [address] [facility] [address] [place] [address] [facility] Start: 04-11-2024 End: 04-11-2024 Professional / ancillary services management 04/11/2024 2:00 PM EST Ancillary Procedure [facility] [address] [place] [address] [facility] Start: 03-25-2024 End: 03-25-2024 Patient encounter procedure 03/25/2024 1:00 PM EDT Office Visit [facility] [address] [place] [address] Erin Tariq PA [address] [place] [address] [facility] Start: 03-23-2024 Urine screening for protein Diabetes: Urine Protein Screening [facility] Start: 03-22-2024 Medicare Annual Well ness (AWV) Medicare Annual Wellness (AWV) [facility] Start: 03-14-2024 End: 03-14-2024 Patient encounter procedure 03/14/2024 9:30 AM EDT Office Visit [facility] [address] [place] [address] Yarelis Weinberg, GENERAL [facility] [address] [place] [address] Arrived [facility] Comment on above: Arrived Start: 03-07-2024 Hemoglobin A1c measurement Diabetes: Hemoglobin A1C [facility] Start: 07-18-2023 End: 07-18-2023 Patient encounter procedure 07/18/2023 2:15 PM EST Office Visit [facility] [address] [place] [address] Swathi Baca DO [address] [place] [address] [facility] Start: 07-05-2023 End: 07-05-2023 Patient encounter procedure 07/05/2023 2:00 PM EST Office Visit [facility] [address] [place] [address] Erin Tariq PA [address] [place] [address] [facility] Start: 06-22-2023 Hemoglobin A1c measurement Diabetes: Hemoglobin A1C [facility] Start: 02-26-2022 Influenza vaccination Influenza Vacc ine (#1) [facility] Start: 2011 Measurement of occul t blood in single stool specimen FIT [facility] Start: 2011 Screening for malign ant neoplasm of breast Mammography [facility] Start: 2011 Screening for malign ant neoplasm of colon CRC Screening [facility] Start: 2011 Shingles (RZV) Vacci ne (1 of 2) Shingles (RZV) Vaccine (1 of 2) [facility] Start: 2006 Cholesterol [Mass/vo lume] in Serum or Plasma Cholesterol [facility] Start: 1991 Screening for malign ant neoplasm of cervix [facility] Start: 1982 Screening for malign ant neoplasm of cervix Pap Smear [facility] Start: 1979 Hepatitis C screening Hepatitis C An tibody [facility] Start: 1979 Tetanus + diphtheria + acellular pertussis vaccine (product) Tdap Booster [facility] Start: 1976 HIV screening HIV Test [facility] Start: 1961 COVID-19 Vaccine (#1) COVID-19 Vacci ne (#1) [facility] Start: 1961 Screening for malign ant neoplasm of colon [facility] Immunizations Immunization Date Immunization Notes Care Provider Fa cility 02-21-2024 influenza, seasonal, injectable, preservative free Yarelis Daily-Nossek GENERAL INTERN-FRAME BANDER Work Phone: [facility] 12-06-2023 tetanus toxoid, redu aimee diphtheria toxoid, and acellular pertussis vaccine, adsorbed Yarelis Daily-Nossek GENERAL INTERN-FRAME BANDER Work Phone: [facility] 04-13-2023 Influenza, injectabl e, Madin Andria Canine Kidney, preservative free, quadrivalent Yarelis Daily-Nossek GENERAL INTERN-FRAME BANDER Work Phone: [facility] 04-13-2023 RSV, recombinant, pr otein subunit RSVpreF, adjuvant reconstitu, 120mcg/0.5mL, PF (Arexvy) Yarelis Daily-Nossek GENERAL INTERN-FRAME BANDER Work Phone: [facility] 06-13-2022 Pneumococcal Conjuga te PCV 20 Erin Hemmer PA Work Phone: [facility] 03-31-2022 Influenza, injectabl e, Madin Andria Canine Kidney, preservative free, quadrivalent Erin Hemmer PA Work Phone: [facility] 03-24-2021 influenza, injectabl e, quadrivalent, contains preservative Erin Hemmer PA Work Phone: [facility] 03-10-2020 Influenza, injectabl e, Madin [place] Canine Kidney, preservative free, quadrivalent Erin Hemmer PA Work Phone: [facility] 03-12-2019 influenza, injectabl e, madin andria canine kidney, preservative free Erin Hemmer PA Work Phone: [facility] 04-06-2018 Influenza, injectabl e, Madin [place] Canine Kidney, preservative free, quadrivalent Erin Hemmer PA Work Phone: [facility] 02-21-2017 pneumococcal polysaccharide vaccine, 23 valent Erin Hemmer PA Work Phone: [facility] 02-21-2017 seasonal influenza, intradermal, preservative free Erin Hemmer PA Work Phone: [facility] 04-19-2016 influenza, injectabl e, quadrivalent, preservative free Erin Hemmer PA Work Phone: [facility] 02-04-2015 seasonal influenza, intradermal, preservative free Erin Hemmer PA Work Phone: [facility] 03-25-2008 seasonal influenza, intradermal, preservative free Erin Hemmer PA Work Phone: [facility] Payers Date Payer Category Payer Medicare (Managed Care) [facility] [id number] 2023 Unknown [id number] 2022 Self-pay 2022 Medicare [employer] MEDICAR E [employer]ICARE [id number] 2022-Present [address] [address] [place] [address] [id number] 2022 Unknown SP/UNINSURED PEN DING FINANCIAL PROGRAM EVALUATION 9 2022-Present [phone] [address] [place] [address] Other [id number] 2022 Unknown 9 2021 Unknown [id number] 1960 Unknown [id number] 2.16.840.1.827804.3.579. 2.732 1960 Unknown [id number] 2.16.840.1.186880.3.579. 2.593 1960 Unknown [id number] 2.16.840.1.567362.3.579. 2.593 1960 Unknown [id number] 2.16.840.1.792542.3.579. 2.593 1960 Unknown [id number] 2.16.840.1.634076.3.579. 2.593 1960 Unknown [id number] 2.16.840.1.360632.3.579. 2.593 1960 Unknown [id number] 2.16.840.1.566781.3.579. 2.593 1960 Unknown [id number] 2.16.840.1.503261.3.579. 2.593 1960 Unknown [id number] 2.16.840.1.499003.3.579. 2.593 1961 Unknown [id number] 2.16.840.1.552842.3.579. 2.593 1961 Unknown [id number] 2.16.840.1.459707.3.579. 2.1259 1961 Unknown [id number] 2.16.840.1.787862.3.579. 2.1259 1961 Unknown [id number] 2.16.840.1.692167.3.579. 2.1259 1961 Unknown [id number] 2.16.840.1.001424.3.579. 2.1259 1961 Unknown [id number] 2.16.840.1.309151.3.579. 2.1259 1961 Unknown [id number] 2.16.840.1.028443.3.579. 2.1259 1961 Unknown [id number] 2.16.840.1.862857.3.579. 2.1259 1961 Unknown [id number] 2.16.840.1.597063.3.579. 2.1259 1960 Unknown [id number] 2.16.840.1.044271.3.579. 2.1259 Unknown [id number] 2.16.840.1.440207.3.579. 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 unknown [facility] Start: 1960 Sex Assigned At Not on file [facility] Start: 01-02-2023 Tobacco smoking status WYIS Never sm oked tobacco [facility] Start: 01-02-2023 Tobacco use and exposure Smoke less tobacco non-user [facility] Start: 03-22-2023 End: 03-14-2024 Alcohol intake Ex-drinker (finding) [facility] Start: 03-22-2023 End: 12-04-2023 History of Social function [facility] Start: 03-22-2023 End: 12-04-2023 Tobacco use panel [facility] Start: 01-03-2023 Alcohol Comment Caffeine intak e: 1-2 cups per day coffee, tea [facility] Start: 1960 Sex Assigned At Female [facility] Start: 12-27-2022 Gender identity Identifies as female gender (finding) [facility] How often do you nee d to have someone help you when you read instructions, pamphlets, or other written material from your doctor or pharmacy [SILS] Sometimes [facility] Do you belong to any clubs or organizations such as moravian groups, unions, fraternal or athletic groups, or school groups? No [facility] Are you now , , , , never or living with a partner? [facility] How often do you hav e 6 or more drinks on 1 occasion? Never [facility] How hard is it for y ou to pay for the very basics like food, housing, medical care, and heating Hard [facility] Do you feel stress - tense, restless, nervous, or anxious, or unable to sleep at night because your mind is troubled all the time - these days [OSQ] To some extent [facility] (I/We) worried wheth er (my/our) food would run out before (I/we) got money to buy more. Sometimes true [facility] The food that (I/we) bought just didn't last, and (I/we) didn't have money to get more. Never true [facility] Start: 03-14-2024 Education 13 [facility] Procedure Code Equipment Code Equipment Origin al Text Equipment Identifier Dates Check blood gluc ose daily [id number] Start: 03-22-2023 End: 03-21-2024 1 each in the morning. Check blood glucose daily.. [id number] Start: 03-22-2023 Goals Date Patient Goal Desired Activity /State Personal health goal History of Present illness Narrative 03-14-2024 Yarelis Weinberg, GENERAL INTERN-FRAME BANDER - 03/14/2024 9:30 AM TENISHAangela Cruz - 03/14/2024 9:30 AM EDT Note Date & Type Note Facility 03-14-2024 History of Presen t illness Narrative NEW PATIENT PSYCHIATRIC EVALUATION This is a 64-year-old female who is here to establish psychiatric care for the treatment of her bipolar disorder. Patient was previously a patient of Dr. Parekh at [facility]. Patient had also seen Dr. Huddleston in 1991. Med trials patient had been on a variety of medications prior to coming some of them include Zoloft, Effexor, Cymbalta, patient patient had also been on lithium stopped working was also on Risperdal and Seroquel Abilify and currently now on Vraylar, buspar, Lamictal. And high-dose Cymbalta, trazodone and finds it is effective but feels she is beoming depressed. hx of Psychiatric hospitalizations. Patient reports that she has had 1 episode of psychiatric hospitalization requiring restraints. Anx iety rates a 6 (10 worst). Admits to excessive worry, restlessness, on edge, poor concentration, mind going blank, irritability, muscle tension, and sleep disturbance. Patient also describes a history of panic attacks where she experienced palpitations, palpitations, lightheaded, feels like I can't swallow fear of dying, going crazy. Depression 6(10 worst ) Denies Previous suicide attempts . Patient does not recall the 1st episode of depression but knows that when she is depressed she experiences the following ; Sad mood, anhedonia, isolation, poor sleep, difficulty falling asleep, staying asleep, appetite changes, poor concentration, irritability, psychomotor retardation, agitation. Fatigue, worthlessness, guilt, hopeless, helpless, decrease sex drive, crying spells, suicidal ideation-no plan, no intent, had previous thoughts. Denies previous attempts. Patient reports a history of manic episodes lasting a week or longer. She believes that they started in 1993 and had another reoccurrence and 95 and episodes since. She knows that when she is manic she sleeps very little, has too much energy does not want anyone in her way and will pace excessively. There have been times when she became physically aggressive during manic episodes. Her 1st episode she believes of lesa were in the 1980s but which she was never treated. elevated mood, irritability, pressured speech, hypertalkative, distractible, increase in goal directed behavior with no follow thru, excessive involvementrisky behaviors, racing thoughts, decrease need for sleep, bursts of energy, grandiose, agitation, increase in spending, psychotic sx. Quit meds when felt better and then had an Denies PTSD, Patient endorses symptoms of social anxiety. She experiences fear of embarrassing or humiliating self, feels like she is being scrutinized by others, anxious around others not well known, avoid social situations. Denies OCD . Psychotic sx. hx of voices telling her what to do. Denies visual hallucinations denies delusions. Denies thought broadcast. Hx of delusions, Denies ADHD. Family psychiatric history includes that her father may have had bipolar disorder. Her sister suffers from alcoholism. Her Brother is a brine supervisor and denies any mental health problems. Denies Hx of Substance abuse. Frequency of Alcohol on special occasions. Marijuana use denies. Legal hx denies. Patient is no children. Worked at [employer]. Lives with her sister. Stressors: Patient states she is Addicted to sugar and is Diabetic Medical- problems Diabetes, obesity, COPD, HTN Review of Systems/ Mental Status exam APPEARANCE: Well groomed, neatly dressed ambulates via walker. Abnormal body movements: slight hand tremor noted ATTITUDE: cooperative Attention: good focus and concentration BEHAVIOR: Appropriate with good eye contact. MOTOR ACTIVITY: No psychomotor agitation SPEECH: clear, regular rate, rhythm, volume MOOD: mood is described as depressed rule out mixed mood AFFECT: Full range THOUGHT PROCESS: organized, clear THOUGHT CONTENT: Denies suicidal or homicidal ideation. No preoccuppations THOUGHT PERCEPTION: admitted to auditory hallucinations in the past denies current. Patient states she will hear her father's voice or mumbling sounds no evidence of delusions. COGNITION: Alert and oriented x3 MEMORY: Patient complained of recent changes in memory both recent and remote. Patient had difficulty remembering important events such as hospitalizations and depressive episodes. INSIGHT:Good.Patient recognizes symptoms of illness and need for recommended treatments JUDGEMENT: Able to make decisions about ordinary activities of daily living. Impression This is a 64-year-old female who is here to establish psychiatric care for the treatment of her bipolar disorder. Patient was previously a patient of Dr. Parekh at [facility]. Patient had also seen Dr. Huddleston in 1991. Med trials patient had been on a variety of medications prior to coming some of them include Zoloft, Effexor, Cymbalta, patient patient had also been on lithium stopped working was also on Risperdal and Seroquel Abilify and currently now on Vraylar and finds it effective. hx of Psychiatric hospitalizations. Patient reports that she has had 1 episode of psychiatric hospitalization requiring restraints. Will evaluate current med regimen aop see if improvements could be made. Diagnosis Bipolar disorder most recent Mixed JENN Plan Medications Cymbalta 120mg po Lamictal 200mg nightly lamictal 25 mg nightly Trazodone 100mg 2 tabs nightly Vraylar 3mg po every day ;Patient states the previous psychiatrist had plan to decrease Vraylar due to complaints of tremors. Buspar decrease to 15mg twice a day Consider Psychotherapy in future F/U 1 month- Needs longer appointment due to comorbidities and multiple medications. Minutes in Direct clinical care and documentation will obtain records from previous provider. Patient was hospitalized for for 10 days for psych when she was seeing . Patient unsure of when that was. Patient reported she has been to the ER twice for psych. Unsure of when. Patient wants to discuss her current mood. Patient reports she has been feeling depressed for a couple months and cries more often than usual. Patient reported her sister is an alcoholic and is drinking again. documented in this encounter [facility] Consultation note 07-26-2022 Note Date & Type [...] purpose. I have decreased the use of Bloomery from q. 6 hours to q.i.d., 5 mg pills, to be taken as tolerated, and to increase the baclofen 10 mg pill, one pill t.i.d. also as tolerated. Went over the details of the procedure with the patient. All her questions were answered. She agrees to proceed with the outlined plan. [facility] Note 06-06-2022 Note Date & [...] by: BURT FIGUEROA Date: 2022-06-06 13:36 [facility] History of Present illness Narrative 01-25-2022 Tyler Ingram DO - 01/25/2022 11:40 AM EDT Note Date & Type Note Facility 01-25-2022 History of Presen t illness Narrative Images from the original note were not included. EMERGENCY TRIAGE, TREAT AND TRANSPORT (ET3) DOCUMENTATION OF TELEHEALTH VISIT Date / Time: 01/14/2022729 Name: Sanna Corrales : 1960 SSN: (Not on file) EMS Agency: [facility] [] Verbal consent obtained [] Implied consent - patient with potential emergency medical condition requiring assessment of capacity to refuse treatment and/or transport VITAL SIGNS: see flowsheet documentation Reason for Telehealth Visit: Chief Complaint Patient presents with Fall History of Present Ilness: 61 yo female who tripped over her small dog in the [facility]. EMS called for lift assist. No LOC, [...] encounter- Primary documented in this encounter [facility] Evaluation note Note Date & Type Note Facility Evaluation note Diagnosis Mixed bipolar affective disorder, moderate ([facility]) Bipolar I disorder, most recent episode (or current) mixed, moderate JENN (generalized anxiety disorder) ([facility]) Generalized anxiety disorder documented in this encounter [facility] Summary Purpose Family History No Family History Records FoundNo Family History Records FoundNo Family History Records FoundNo Family History Records Found Advance Directives No Advanced Directives Records FoundNo Advanced Directives Records FoundNo Advanced Directives Records FoundNo Advanced Directives Records Found Additional Source Comments Reason for Visit (unrecogniz ed section and content) Reason Comments Fall Reason Comments Psychiatric Evaluation INFORMATION SOURCE (unrecogn ized section and content) DATE CREATED AUTHOR 02/03/2022 [facility] DATE CREATED AUTHOR AUTHOR'S ORGANIZ ATION 08/31/2022 [facility] DATE CREATED AUTHOR AUTHOR'S ORGANIZ ATION 08/04/2023 [facility] DATE CREATED AUTHOR AUTHOR'S ORGANIZ ATION 03/16/2024 [facility] EPIC Care Teams (unrecognized sec tion and content) Fisheries Specialist Relationship Specialty Start Date End Date Jer Rizo MD [address] [facility] [address] [place] [address] PCP - General Internal Medicine 01/03/23 Jer Rizo MD [address] Jose Armando [address] [place] [address] PCP - Devoted 05/29/23 Fisheries Specialist Relationship Specialty Start Date End Date Jer Rizo MD [address] Jose Armando [address] [place] [address] PCP - General Internal Medicine 01/03/23 Jer Rizo MD [address] Jose Armando [address] [place] [address] PCP - Devoted 05/29/23 Fisheries Specialist Relationship Specialty Start Date End Date Jer Rizo MD [address] [facility] [address] [place] [id number] PCP - General Internal Medicine 01/03/23 Jer Rizo MD [address] [facility] [address] [place] [address] PCP - Devoted 05/29/23 FOR RECORDS PERTAINING [...] BE BASED ON THE PRIMARY CLINICAL RECORDS. [employer] [facility]. provides no warranty or guarantee of the accuracy or completeness of information in this document.
--- NOTE | 2024-03-18 05:24 | ED.FALL1 ---
HPI HPI - Fall General Chief Complaint: Fall Stated Complaint: other Time Seen by Provider: 03/18/24 04:58 Source: patient Mode of arrival: ambulance Limitations: no limitations History of Present Illness HPI Narrative: 64-year-old female presents for complaints of pain to both shoulders, her head, her neck, and her lower back. She lost her balance and fell backwards into a wall just before coming into the emergency department. The sister called the paramedics and they brought her here. No LOC and she does not take blood thinners. No chest pain or abdominal pain or injury to her extremities other than the bilateral shoulders. Related Data Home Medications ?Medication ?Instructions ?Recorded ?Confirmed baclofen 10 mg tablet 10 mg PO Q12H muscle spasm 06/27/23 01/04/24 budesonide 160 mcg-glycopyr 9 2 inh inhalation BID 06/27/23 01/04/24 mcg-formot 4.8 mcg/actuation HFA inhaler (Breztri Aerosphere) buspirone 30 mg tablet 30 mg PO BID 06/27/23 01/04/24 cariprazine 3 mg capsule (Vraylar) 3 mg PO QDAY 06/27/23 01/04/24 dapagliflozin propanediol 10 mg 10 mg PO QAM 06/27/23 01/04/24 tablet (Farxiga) diclofenac sodium 75 mg 75 mg PO Q12H 06/27/23 01/04/24 tablet,delayed release duloxetine 60 mg capsule,delayed 120 mg PO BEDTIME 06/27/23 01/04/24 release (Cymbalta) furosemide 40 mg tablet 40 mg PO BID 06/27/23 01/04/24 gabapentin 600 mg tablet 1,200 mg PO QPM 06/27/23 01/04/24 gabapentin 600 mg tablet 600 mg PO QAM 06/27/23 01/04/24 levothyroxine 112 mcg tablet 112 mcg PO DAILY 06/27/23 01/04/24 rosuvastatin 5 mg tablet 5 mg PO .qhs 06/27/23 01/04/24 trazodone 100 mg tablet 200 mg PO BEDTIME 06/27/23 01/04/24 metoprolol tartrate 25 mg tablet 25 mg PO BID 06/28/23 01/04/24 linagliptin 5 mg tablet (Tradjenta) 5 mg PO DAILY 12/04/23 01/04/24 Previous Rx's ?Medication ?Instructions ?Recorded hydrocodone 5 mg-acetaminophen 325 1 tab PO Q8H PRN pain 4 days #12 07/19/23 mg tablet tabs Allergies Allergy/AdvReac Type Severity Reaction Status Date / Time ibandronate sodium (From Allergy Severe Hives Verified 03/18/24 04:54 Boniva) Sulfa (Sulfonamide Allergy Severe Anaphylaxis Verified 03/18/24 04:54 Antibiotics) Penicillins Allergy Intermediate Anaphylaxis Verified 03/18/24 04:54 Opioid HPI Opioid Management Most Recent Pain and Opioid Data: Last Pain Scale 10 03/18/24 05:02 03/18/24 Last ED Pain Assessment 03/18/24 05:02 Review of Systems ROS Narrative A ten point review of systems is negative except as noted above. [facility] Medical History (Updated 03/18/24 @ 06:41 by Danilo Bose MD) Endometriosis ?N80.9 - Endometriosis, unspecified (ICD-10) Osteoporosis ?M81.0 - Age-related osteoporosis without current pathological fracture (ICD-10) Asthma ?J45.909 - Unspecified asthma, uncomplicated (ICD-10) Chronic respiratory failure with hypoxia, on home O2 therapy ?J96.11 - Chronic respiratory failure with hypoxia (ICD-10) ?Z99.81 - Dependence on supplemental oxygen (ICD-10) Hiatal hernia ?K44.9 - Diaphragmatic hernia without obstruction or gangrene (ICD-10) Degenerative disc disease, lumbar ?M51.36 - Other intervertebral disc degeneration, lumbar region (ICD-10) Bipolar disorder ?F31.9 - Bipolar disorder, unspecified (ICD-10) Fibromyalgia ?M79.7 - Fibromyalgia (ICD-10) Hypothyroidism ?E03.9 - Hypothyroidism, unspecified (ICD-10) Rheumatoid arthritis ?M06.9 - Rheumatoid arthritis, unspecified (ICD-10) DM2 (diabetes mellitus, type 2) ?E11.9 - Type 2 diabetes mellitus without complications (ICD-10) Mixed hyperlipidemia ?E78.2 - Mixed hyperlipidemia (ICD-10) Essential hypertension ?I10 - Essential (primary) hypertension (ICD-10) Obesity ?E66.9 - Obesity, unspecified (ICD-10) COPD (chronic obstructive pulmonary disease) ?J44.9 - Chronic obstructive pulmonary disease, unspecified (ICD-10) Stable angina pectoris ?I20.89 - Other forms of angina pectoris (ICD-10) Surgical History (Updated 01/03/24 @ 13:36 by Destiny Mitchell RN) H/O laparoscopy ?Z98.890 - Other specified postprocedural states (ICD-10) H/O cataract extraction ?Z98.49 - Cataract extraction status, unspecified eye (ICD-10) Hx laparoscopic cholecystectomy ?Z90.49 - Acquired absence of other specified parts of digestive tract (ICD-10) H/O cardiac catheterization ?Z98.890 - Other specified postprocedural states (ICD-10) Family History (Updated 01/03/24 @ 13:37 by Destiny Mitchell RN) Other Breast cancer CAD (coronary artery disease) Family history of cancer Family history of diabetes mellitus Family history of hypertension Family history of myocardial infarction Social History (Updated 12/04/23 @ 11:23 by Marcia Wilkerson) Within the past year, how often did you have a drink containing alcohol: never Score interpretation: A score less than 3 is consistent with normal alcohol consumption. Smoking status: Never smoker Previous occupational history: retired/disability Highest level of school completed/degree received: high school graduate Little interest or pleasure in doing things: not at all Feeling down, depressed, or hopeless: not at all Gender Identity: female Exam Narrative Exam Narrative: Nurses note and vital signs reviewed and patient is not hypoxic. General: The patient appears in no apparent distress. Skin: Warm, dry, no pallor noted. There is no rash noted. Head: Normocephalic, atraumatic; she has diffuse tenderness in the posterior neck. No hematoma or other injury to the scalp. Eye: Normal conjunctiva, no drainage Ears, Nose, Mouth, and Throat: oral mucosa is moist. Nares patent. Cardiovascular: Regular Rate and Rhythm Respiratory: Patient is in no distress, no accessory muscle use, lungs are clear to auscultation, no wheezing, rales or rhonchi Back: Tenderness across lower back without bruise or abrasion GI: Obese and nontender Musculoskeletal: T no deformities to the shoulders. Neurological: A&O, normal speech Psychiatric: Cooperative Constitutional Vital Signs, click to edit/add: Last Vital Signs Temp 97.8 F 03/18/24 04:54 Pulse 75 03/18/24 05:45 Resp 19 03/18/24 05:45 BP 138/96 H 03/18/24 05:45 Pulse Ox 96 03/18/24 05:45 O2 Del Method Nasal Cannula 03/18/24 04:54 O2 Flow Rate 3 03/18/24 04:54 Course Vital Signs Vital signs: Vital Signs Temperature 97.8 F 03/18/24 04:54 Pulse Rate 64 03/18/24 04:54 Respiratory Rate 20 03/18/24 04:54 Blood Pressure 137/73 03/18/24 04:54 Pulse Oximetry 95 03/18/24 04:54 Oxygen Delivery Method Nasal Cannula 03/18/24 04:54 Oxygen Delivery Flow Rate 3 03/18/24 04:54 Temperature 97.8 F 03/18/24 04:54 Pulse Rate 75 03/18/24 05:45 Respiratory Rate 19 03/18/24 05:45 Blood Pressure 138/96 H 03/18/24 05:45 Pulse Oximetry 96 03/18/24 05:45 Oxygen Delivery Method Nasal Cannula 03/18/24 04:54 Oxygen Delivery Flow Rate 3 03/18/24 04:54 MDM - Fall MDM Narrative Medical decision making narrative: All radiographs are negative and she will be discharged home. Findings are discussed with the patient. Differential Diagnosis Differential diagnosis: Likely other (Intracranial hemorrhage, cervical spine fracture, lumbar spine fracture, shoulder fracture, contusions) Imaging Data CT scan - head: Radiologist's impression: ITS Impressions Head CT 03/18/24 05:01 IMPRESSION: 1. No acute intracranial abnormality noted. 2. No acute fracture or subluxation of the cervical spine. Electronically authenticated by: AMOR MÁRQUEZ Date: 03/18/2024 06:[address] 03/18/24 05:01 IMPRESSION: 1. The L5 vertebral segment is completely sacralized. There are only 4 lumbar-type nonrib-bearing vertebral segments. Caution is advised if counting spinal segments from caudal to cranial. For the purposes of this study, the sacralized L5 segment will be labeled L5. 2. Mild/moderate spinal canal narrowing at L3-L4 due to broad-based disc bulge and facet arthropathy. 3. Disc osteophyte complex extends into and moderate/severely narrows the neural foramina at L4-L5. 4. Mild to moderate right and mild left foraminal narrowing at L3-L4. Electronically authenticated by: TYLER KENNEDY Date: 03/18/2024 06:23 Shoulder X-Ray 03/18/24 05:01 IMPRESSION: 1. No acute right shoulder findings. 2. No acute left shoulder findings. Electronically authenticated by: MELY HAWK Date: 03/18/2024 06:[address] 03/18/24 05:02 IMPRESSION: 1. No acute intracranial abnormality noted. 2. No acute fracture or subluxation of the cervical spine. Electronically authenticated by: AMOR MÁRQUEZ Date: 03/18/2024 06:07 Discharge Plan Discharge Chief Complaint: Fall Clinical Impression: Fall, Multiple contusions Patient Disposition: Home, Self-Care Time of Disposition Decision: 06:40 Condition: Good Mode of Transportation: Private Vehicle Prescriptions / Home Meds: No Action baclofen 10 mg tablet 10 mg PO Q12H trazodone 100 mg tablet 200 mg PO BEDTIME buspirone 30 mg tablet 30 mg PO BID furosemide 40 mg tablet 40 mg PO BID duloxetine [Cymbalta] 60 mg capsule,delayed release(DR/EC) 120 mg PO BEDTIME levothyroxine 112 mcg tablet 112 mcg PO DAILY dapagliflozin propanediol [Farxiga] 10 mg tablet 10 mg PO QAM gabapentin 600 mg tablet 600 mg PO QAM Rx Instructions: 1 in morning, 2 at night; diclofenac sodium 75 mg tablet,delayed release (DR/EC) 75 mg PO Q12H gabapentin 600 mg tablet 1,200 mg PO QPM Breztri Aerosphere 160-9-4.8 mcg/actuation HFA aerosol inhaler 2 inh INHALATION BID Vraylar 3 mg capsule 3 mg PO QDAY rosuvastatin 5 mg tablet 5 mg PO .qhs metoprolol tartrate 25 mg tablet 25 mg PO BID Tradjenta 5 mg tablet 5 mg PO DAILY hydrocodone-acetaminophen 5-325 mg tablet 1 tab PO Q8H PRN (Reason: pain) 4 Days Qty: 12 0RF Print Language: Iraqi Instructions: Contusion in Adults (ED), Fall Prevention (ED) Referrals: Physician,Non-Staff, MD [Primary Care Provider] - 1 week
[2024-03-18] MEDS: KETOROLAC TROMETHAMINE 60 MG/2 ML VIAL IM (06:51)
== END 2024-03-18 08:04 | disposition home or self-care (01) ==
PROVIDERS: Emergency Provider Emergency Medicine
DX: T14.8XXA Other injury of unspecified body region, initial encounter (principal); W19.XXXA Unspecified fall, initial encounter; E66.9 Obesity, unspecified; Z68.45 Body mass index [BMI] 70 or greater, adult
CPT/HCPCS: 70450; 72125; 72131; 73030; 96372; 99285; J1885

== ENCOUNTER 2024-03-25 11:39 | Outpatient (OUT) | payer OTHER, SELFPAY ==
--- OUTSIDE RECORDS SUMMARY | 2024-03-25 11:46 | XMS_ITS | CCD ---
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 Name Role Phone Unavailable Primary Care Provider [...] Unavailable ZIEBTRI, DR BURT Marks Consulting Unavailable ELIEEZR ., OMID Attending Unavailable ELIEZER ., OMID [...] Rachael Jer Fitch MD Primary Care Provider [phone] Jer Rizo MD Unavailable Pratik Soria Attending [...] (2 sources) cefdinir Drug Allergy 3 [facility] Repository (1 source) Codeine Drug Allergy [facility] Repository (2 sources) Ibandronate Drug Allergy 3 [facility] Repository (2 sources) nabumetone Drug Allergy 3 [facility] Repository (2 sources) Penicillins Drug allergy (disorder) 3 [facility] Repository (2 sources) Sulfonamides (Antibiotic) Drug allergy (disorder) 3 [facility] Repository (4 sources) c[facility]dinir [facility] (4 sources) Ibandronate Drug Allergy 3 H[facility] (4 sources) nabumetone Drug Allergy 3 [facility] (4 sources) Penicillin G Drug Allergy 3 [facility] (4 sources) Sulfanilamide Allergy to substance 3 [facility] Healthcare (2 sources) Sertraline Drug Allergy 4 [facility] Healthcare (2 sources) zolpidem Drug Allergy 4 Other [facility] Medications Current Medications Medication Drug Class(es) Dates Sig (Normalized) Sig (Original) acetaminophen 325 mg / HYDROcodone bitartrate 5 mg oral tablet (4 sources) Opioid Agonist Start: 02-21-2024 take 1 tablet by mouth every six hours for pain HYDROcodone-acetam inophen (Lowman) 5-325 MG tablet Indications: Cervical spondylosis Take 1 tablet by mouth every 6 (six) hours if needed for severe pain or moderate pain 56 tablet 02/21/2024 Active Start: 03-22-2023 take 1 tablet by tk th every six hours for pain HYDROcodone-acetaminophen ([place]man) 5-325 MG tablet Indications: Cervical spondylosis Take 1 tablet by mouth every 6 (six) hours if needed for severe pain or moderate pain. 56 tablet 0 03/22/2023 Active [id number] 200 actuat albuterol 0.09 mg/actuat metered dose [...] without long-term current use of insulin ([facility]) USE DIRECTED 100 strip 2 04/04/2023 Active 120 actuat budesonide 0.16 mg/actuat / formoterol fumarate 0.0048 mg/actuat / glycopyrrolate 0.009 mg/actuat metered dose inhaler (4 sources) Corticosteroi d, beta2-Adrener gic Agonist Start: 09-05-2023 take 2 puff(s) by inhalation in the morning Budeson-Glycopyrrol -Formoterol (Breztri Aerosphere) 160-9-4.8 MCG/ACT aerosol Indications: Chronic obstructive pulmonary disease, unspecified COPD type ([facility]) Inhale 2 puffs in the morning and [...] MG tablet Indications: JENN (generalized anxiety disorder) ([facility]) Take 1 tablet (15 mg) by mouth [...] diabetes mellitus with autonomic neuropathy, unspecified whether senior care insulin use (CMS/HCC) Take 1 tablet (600 [...] diabetes mellitus with autonomic neuropathy, unspecified whether senior care insulin use (CMS/HCC) Take 1 tablet (600 mg) by mouth in the morning and 1 tablet (600 mg) in the evening and 1 tablet (600 mg) before bedtime. 300 tablet 3 11/04/2022 Active hydrocortisone 10 mg/ml / neomycin 3.5 mg/ml / polymyxin b 29625 unt/ml otic suspension (3 sources) Aminoglycoside Antibacterial, Polymyxin-class Antibacterial, Corticosteroid Start: 01-12-2024 snlpvsrq-zruomvzyh-fbeskjcpt isone (Cortisporin) 3.5-65051-7 otic suspension Indications: Acute otitis externa of [...] diabetes mellitus with autonomic neuropathy, unspecified whether senior care insulin use (CMS/HCC) TAKE 1 TABLET BY [...] Chronic obstructive pulmonary disease, unspecified COPD type ([facility]) Follow schedule on package instructions 21 tablet 02/21/2024 03/14/2024 Discontinued Start: 02-21-2024 methylPREDNISo lone (Medrol Dospak) 4 MG tablets Indications: Chronic obstructive pulmonary disease, unspecified COPD type ([facility]) Follow schedule on package instructions 21 tablet [...] disease (5 sources) Atherosclerotic heart disease of [place] coronary artery without angina pectoris; Translations: [Coronary [...] Onset: 06-15-2022 Chronic Other aftercare (1 source) 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 THE CITIZEN OF [place] [employer] GUIDELINES RECOMMEND THAT WOMEN 40 [...] [Mass/Vol] 238 mg/dL Critically high 74-106 T [facility] Comment on above: Performed By: #### P OCGLUC #### [facility] [address] [address] [address] Cammy Cleaning XR HIPS SOPHY 3_4V [...] joint and sacroiliac joint osteoarthritis. Normal [facility] MRI LSPINE WO CONon 07-11-19 23 MRI LSSOUTH ACWORTH WO CON EXAMINATION: MRI [facility] ACWORTH WO CON HISTORY: Lumbar radiculopathy COMPARISON: No [...] CHRISTEN BAKER Date: 2022-07-11 16:37 Normal [facility] CBC AUTO DIFFon 06-08-2022 BASO # 0.1 103/ul Normal 0.0-0.1 [facility] Comment on above: Performed By: #### C BC #### [facility] [address] [place], [place] [address] Dr. Cammy Cleaning Basophils/100 WBC (Bld) 0.8 % Normal 0.2-2.0 [facility] Comment on above: Performed By: #### C BC #### [facility] [address] [place] [address] Dr. Cammy Cleaning EO # 0.5 103/ul Normal 0.0-0.7 [facility] Comment on above: Performed By: #### C BC #### [facility] [address] [place] [address] Dr. Cammy Cleaning Eosinophils/100 WBC (Bld) 5.2 % Normal 0.9-7.0 [facility] Comment on above: Performed By: #### C BC #### [facility] [address] [place] [address] Dr. Cammy Cleaning Erythrocyte distribution width (RBC) [Ratio] 14.8 % Normal 11.0-15.0 [facility] Comment on above: Performed By: #### C BC #### [facility] [address] [place] [address] Dr. Cammy Cleaning Hematocrit (Bld) [Volume fraction] 50.0 % Critically high 36.0-48.0 [facility] Comment on above: Performed By: #### C BC #### [facility] [address] [place] [address] Dr. Cammy Cleaning Hemoglobin (Bld) [Mass/Vol] 15.2 g/dL Normal 12.0-16.0 [facility] Comment on above: Performed By: #### C BC #### [facility] [address] [place] [address] Dr. Cammy Cleaning IG # 0.19 10e3/ul Critically high 0.00-0.03 [facility] Comment on above: Performed By: #### C BC #### [facility] [address] [place] [address] Dr. Cammy Cleaning IG % 1.8 % Critically high 0.0-0.5 [facility] Comment on above: Performed By: #### C BC #### [facility] [address] [place] [address] Dr. Cammy Cleaning LYMPH # 2.1 103/ul Normal 1.2-3.8 [facility] Comment on above: Performed By: #### C BC #### [facility] [address] [place] [address] Dr. Cammy Cleaning Lymphocytes/100 WBC (Bld) 19.6 % Critically low 20.5-60.0 [facility] Comment on above: Performed By: #### C BC #### [facility] [address] [place] [address] Dr. Cammy Cleaning MANUAL DIFF REQ NO Normal [facility] Comment on above: Performed By: #### C BC #### [facility] [address] [place] [address] Dr. Cammy Cleaning MCH (RBC) [Entitic mass] 27.6 pg Normal 26.7-34.0 [facility] Comment on above: Performed By: #### C BC #### [facility] [address] [place] [address] Dr. Cammy Cleaning MCHC (RBC) [Mass/Vol] 30.4 g/dL Normal 29.9-35.2 [facility] Comment on above: Performed By: #### C BC #### [facility] [address] [place] [address] Dr. Cammy Cleaning MCV (RBC) [Entitic vol] 90.7 fL Normal 81.0-99.0 [facility] Comment on above: Performed By: #### C BC #### [facility] [address] [place] [address] Dr. Cammy Cleaning MONO # 0.7 103/ul Normal 0.3-0.8 [facility] Comment on above: Performed By: #### C BC #### [facility] [address] [place] [address] Dr. Cammy Cleaning Monocytes/100 WBC (Bld) 7.0 % Normal 1.7-12.0 [facility] Comment on above: Performed By: #### C BC #### [facility] [address] [place] [address] Dr. Cammy Cleaning NEUT # 6.9 103/ul Critically high 1.4-6.5 [facility] Comment on above: Performed By: #### C BC #### [facility] [address] [place] [address] Dr. Cammy Cleaning Neutrophils/100 WBC (Bld) 65.6 % Normal 43.0-75.0 [facility] Comment on above: Performed By: #### C BC #### [facility] [address] [address] [address] Cammy Cleaning Platelet mean volume (Bld) [Entitic vol] 8.7 fL Critically low 9.5-13.5 [facility] Comment on above: Performed By: #### C BC #### [facility] [address] [address] [address] Cammy Cleaning PLT 166 103/ul Normal 150-450 [facility] Comment on above: Performed By: #### C BC #### [facility] [address] [place] [address] Dr. Cammy Cleaning RBC 5.51 106/ul Critically high 4.20-5.40 [facility] Comment on above: Performed By: #### C BC #### [facility] [address] [place] [address] Dr. Cammy Cleaning WBC 10.5 103/ul Normal 4.0-11.0 [facility] Comment on above: Performed By: #### C BC #### [facility] [address] [place] [address] Dr. Cammy Cleaning POINT OF CARE GLUCOSEon 05-29 Glucose [Mass/Vol] 134 mg/dL Critically high 74-106 T [facility] Comment on above: Performed By: #### P OCGLUC #### [facility] [address] [place] [address] Dr. Cammy Cleaning PROF 14(COMP METB)on 023 Albumin [Mass/Vol] 3.0 g/dL Critically low 3.4-5.0 [facility] Comment on above: Performed By: #### C MP ####[facility] [address] [address]Dr. Cammy Cleaning Albumin/Globulin [Mass ratio] 0.8 {ratio} Normal [facility] Comment on above: Performed By: #### C MP ####[facility] [address] [address]Dr. Cammy Cleaning ALP [Catalytic activity/Vol] 85 U/L Normal 46-116 [facility] Comment on above: Performed By: #### C MP ####[facility] [address] [place], [place] [address]Dr. Cammy Cleaning ALT [Catalytic activity/Vol] 19 U/L Normal 14-59 [facility] Comment on above: Performed By: #### C MP ####[facility] [address] [place], [place] [address]Dr. Cammy Black Anion gap [Moles/Vol] 6.9 mmol/L Normal [facility] Comment on above: Performed By: #### C MP ####[facility] [address] [place], [place] [address]Dr. Cammy Cleaning AST [Catalytic activity/Vol] 18 U/L Normal 15-37 [facility] Comment on above: Performed By: #### C MP ####[facility] [address] [place], [place] [address]Dr. Cammy Black Bilirubin [Mass/Vol] 0.6 mg/dL Normal 0.2-1.0 [facility] Comment on above: Performed By: #### C MP ####[facility] [address] [place], [place] [address]Dr. Cammy Black Calcium [Mass/Vol] 9.4 mg/dL Normal 8.5-10.1 [facility] Comment on above: Performed By: #### C MP ####[facility] [address] [place], [place] [address]Dr. Cammy Black Chloride [Moles/Vol] 99 mmol/L Normal 98-107 [facility] Comment on above: Performed By: #### C MP ####[facility] [address] [place], [place] [address]Dr. Cammy Cleaning CO2 [Moles/Vol] 37.8 mmol/L Critically high 21.0-32.0 [facility] Comment on above: Performed By: #### C MP ####[facility] [address] [place], [place] [address]Dr. Cammy Black Creatinine [Mass/Vol] 0.85 mg/dL Normal 0.55-1.02 [facility] Comment on above: Performed By: #### C MP ####[facility] [address] [id number][address] Cammy Cleaning EGFR-AF CITIZEN [place] >60 Normal >=60 [facility] Comment on above: Performed By: #### C MP ####[facility] [address] [id number][address] Cammy Black EGFR-NON AF CITIZEN OF [place] >60 Normal >=60 [facility] Comment on above: Performed By: #### C MP ####[facility] [address] [id number]. Cammy Black Globulin (S) [Mass/Vol] 3.6 g/dL Normal [facility] Comment on above: Performed By: #### C MP ####[facility] [address] [address]Dr. Cammy Black Glucose [Mass/Vol] 139 mg/dL Critically high 74-106 [facility] Comment on above: Performed By: #### C MP ####[facility] [address] [id number]. Cammy Black Potassium [Moles/Vol] 3.7 mmol/L Normal 3.5-5.1 [facility] Comment on above: Performed By: #### C MP ####[facility] [address] [id number]. Cammy Black Protein [Mass/Vol] 6.6 g/dL Normal 6.4-8.2 [facility] Comment on above: Performed By: #### C MP ####[facility] [address] [id number]. Cammy Cleaning Sodium [Moles/Vol] 140 mmol/L Normal 136-145 [facility] Comment on above: Performed By: #### C MP ####[facility] [address] [id number]. Cammy Black Urea nitrogen [Mass/Vol] 14.0 mg/dL Normal 7.0-18.0 [facility] Comment on above: Performed By: #### C MP ####[facility] [address] [address]Dr. Cammy Cleaning Urea nitrogen/Creatinine [Mass ratio] 16.5 mg/mg Normal [facility] Comment on above: Performed By: #### C MP ####[facility] [address] [address]Dr. Cammy Cleaning BNPon 06-07-2022 Natriuretic peptide B (Bld) [Mass/Vol] 117.0 pg/mL Normal <=900.0 [facility] Comment on above: Performed By: #### C BC #### [facility] [address] [place] [address] Dr. Cammy Cleaning CBC AUTO DIFFon 06-07-2022 BASO # 0.1 103/ul Normal 0.0-0.1 [facility] Comment on above: Performed By: #### C BC #### [facility] [address] [place] [address] Dr. Cammy Cleaning Basophils/100 WBC (Bld) 0.6 % Normal 0.2-2.0 [facility] Comment on above: Performed By: #### C BC #### [facility] [address] [place] [address] Dr. Cammy Cleaning EO # 0.6 103/ul Normal 0.0-0.7 [facility] Comment on above: Performed By: #### C BC #### [facility] [address] [place] [address] Dr. Cammy Cleaning Eosinophils/100 WBC (Bld) 5.8 % Normal 0.9-7.0 [facility] Comment on above: Performed By: #### C BC #### [facility] [address] [place] [address] Dr. Cammy Cleaning Erythrocyte distribution width (RBC) [Ratio] 14.6 % Normal 11.0-15.0 [facility] Comment on above: Performed By: #### C BC #### [facility] [address] [place] [address] Dr. Cammy Cleaning Hematocrit (Bld) [Volume fraction] 45.8 % Normal 36.0-48.0 [facility] Comment on above: Performed By: #### C BC #### [facility] [address] [place] [address] Dr. Cammy Cleaning Hemoglobin (Bld) [Mass/Vol] 14.4 g/dL Normal 12.0-16.0 [facility] Comment on above: Performed By: #### C BC #### [facility] [address] [place] [address] Dr. Cammy Cleaning IG # 0.18 10e3/ul Critically high 0.00-0.03 [facility] Comment on above: Performed By: #### C BC #### [facility] [address] [place] [address] Dr. Cammy Cleaning IG % 1.7 % Critically high 0.0-0.5 [facility] Comment on above: Performed By: #### C BC #### [facility] [address] [place] [address] Dr. Cammy Cleaning LYMPH # 1.8 103/ul Normal 1.2-3.8 [facility] Comment on above: Performed By: #### C BC #### [facility] [address] [place] [address] Dr. Cammy Cleaning Lymphocytes/100 WBC (Bld) 16.1 % Critically low 20.5-60.0 [facility] Comment on above: Performed By: #### C BC #### [facility] [address] [place] [address] Dr. Cammy Cleaning MANUAL DIFF REQ NO Normal [facility] Comment on above: Performed By: #### C BC #### [facility] [address] [place] [address] Dr. Cammy Cleaning MCH (RBC) [Entitic mass] 27.7 pg Normal 26.7-34.0 [facility] Comment on above: Performed By: #### C BC #### [facility] [address] [place] [address] Dr. Cammy Cleaning MCHC (RBC) [Mass/Vol] 31.4 g/dL Normal 29.9-35.2 [facility] Comment on above: Performed By: #### C BC #### [facility] [address] [place] [address] Dr. Cammy Cleaning MCV (RBC) [Entitic vol] 88.1 fL Normal 81.0-99.0 [facility] Comment on above: Performed By: #### C BC #### [facility] [address] [place] [address] Dr. Cammy Cleaning MONO # 0.9 103/ul Critically high 0.3-0.8 [facility] Comment on above: Performed By: #### C BC #### [facility] [address] [place] [address] Dr. Cammy Cleaning Monocytes/100 WBC (Bld) 8.2 % Normal 1.7-12.0 [facility] Comment on above: Performed By: #### C BC #### [facility] [address] [place] [address] Dr. Cammy Cleaning NEUT # 7.3 103/ul Critically high 1.4-6.5 [facility] Comment on above: Performed By: #### C BC #### [facility] [address] [place] [address] Dr. Cammy Cleaning Neutrophils/100 WBC (Bld) 67.6 % Normal 43.0-75.0 [facility] Comment on above: Performed By: #### C BC #### [facility] [address] [place] [address] Dr. Cammy Cleaning Platelet mean volume (Bld) [Entitic vol] 8.8 fL Critically low 9.5-13.5 [facility] Comment on above: Performed By: #### C BC #### [facility] [address] [place] [address] Dr. Cammy Cleaning PLT 169 103/ul Normal 150-450 [facility] Comment on above: Performed By: #### C BC #### [facility] [address] [place] [address] Dr. Cammy Cleaning RBC 5.20 106/ul Normal 4.20-5.40 [facility] Comment on above: Performed By: #### C BC #### [facility] [address], [place] [address] Dr. Cammy Cleaning WBC 10.9 103/ul Normal 4.0-11.0 [facility] Comment on above: Performed By: #### C BC #### [facility] [address], [place] [address] Dr. Cammy Cleaning ECHOCARDIO M/2D COMPLETEon 0 06-07-2022 ECHOCARDIO M/2D COMPLETE Patient: SANNA CORRALES Exam Date: 06/07/2022 : 1960 Gender:F Ordering : DR. WILLEM HIDALGO . Admission #: [id number] Family : OMID MARTINS . Order #: [id number] CLICK HERE TO VIEW EXAM ECHOCARDIOGRAM REPORT [...] M.D. on 06/09/2022 at 10:48 Normal [facility] FREE T4on 06-07-2022 Free T4 [Mass/Vol] 1.21 ng/dL Normal 0.76-1.46 [facility] Comment on above: Performed By: #### C BC #### [facility] [address] [address] [address] Cammy Cleaning GLYCOHEMOGLOBIN A1Con 2022 ADA RECOMMENDATION SEE BELOW Normal [facility] Comment on above: Result Comment: ADA RECOMMENDED LIMIT 4.0 - 6.0 ADA THERAPEUTIC TARGET < 7.0 ACTION SUGGESTED > 7.0 Performed By: #### P OCGLUC #### [facility] [address] [address] [address] Cammy Cleaning Glucose [Mass/Vol] 171 mg/dL Normal [facility] Comment on above: Performed By: #### P OCGLUC #### [facility] [address] [address] [address] Cammy Cleaning HbA1c (Bld) [Mass fraction] 7.6 % Critically high 4.5-6.2 [facility] Comment on above: Performed By: #### P OCGLUC #### [facility] [address] [address] [address] Cammy Cleaning POINT OF CARE GLUCOSEon 05-29 Glucose [Mass/Vol] 141 mg/dL Critically high 74-106 [facility] Comment on above: Performed By: #### C BC #### [facility] [address] [address] [address] Cammy Cleaning Glucose [Mass/Vol] 161 mg/dL Critically high 74-106 [facility] Comment on above: Performed By: #### P OCGLUC ####[facility] [address] [address]Dr. Cammy Cleaning Glucose [Mass/Vol] 148 mg/dL Critically high 74-106 [facility] Comment on above: Performed By: #### P OCGLUC ####[facility] [address] [address]Dr. Cammy Cleaning PROF 14(COMP METB)on 023 Albumin [Mass/Vol] 2.7 g/dL Critically low 3.4-5.0 [facility] Comment on above: Performed By: #### C MP #### [facility] [address] [place] [address] Dr. Cammy Cleaning Albumin/Globulin [Mass ratio] 0.8 {ratio} Normal [facility] Comment on above: Performed By: #### C MP #### [facility] [address] [place] [address] Dr. Cammy Cleaning ALP [Catalytic activity/Vol] 85 U/L Normal 46-116 [facility] Comment on above: Performed By: #### C MP #### [facility] [address] [place] [address] Dr. Cammy Cleaning ALT [Catalytic activity/Vol] 15 U/L Normal 14-59 [facility] Comment on above: Performed By: #### C MP #### [facility] [address] [place] [address] Dr. Cammy Cleaning Anion gap [Moles/Vol] 8.3 mmol/L Normal [facility] Comment on above: Performed By: #### C MP #### [facility] [address] [place] [address] Dr. Cammy Cleaning AST [Catalytic activity/Vol] 17 U/L Normal 15-37 [facility] Comment on above: Performed By: #### C MP #### [facility] [address] [place] [address] Dr. Cammy Cleaning Bilirubin [Mass/Vol] 0.6 mg/dL Normal 0.2-1.0 [facility] Comment on above: Performed By: #### C MP #### [facility] [address] [place] [address] Dr. Cammy Cleaning Calcium [Mass/Vol] 8.9 mg/dL Normal 8.5-10.1 [facility] Comment on above: Performed By: #### C MP #### [facility] [address] [place] [address] Dr. Cammy Cleaning Chloride [Moles/Vol] 102 mmol/L Normal 98-107 [facility] Comment on above: Performed By: #### C MP #### [facility] [address] [place] [address] Dr. Cammy Cleaning CO2 [Moles/Vol] 34.6 mmol/L Critically high 21.0-32.0 [facility] Comment on above: Performed By: #### C MP #### [facility] [address] [address] [address] Cammy Cleaning Creatinine [Mass/Vol] 0.80 mg/dL Normal 0.55-1.02 [facility] Comment on above: Performed By: #### C MP #### [facility] [address] [address] [address] Cammy Cleaning EGFR-AF [place]IZ[place] >60 Normal >=60 [facility] Comment on above: Performed By: #### C MP #### [facility] [address] [address] [address] Cammy Cleaning EGFR-NON AF CITIZEN OF [place] >60 Normal >=60 [facility] Comment on above: Performed By: #### C MP #### [facility] [address] [address] [address] Cammy Cleaning Globulin (S) [Mass/Vol] 3.2 g/dL Normal [facility] Comment on above: Performed By: #### C MP #### [facility] [address] [address] [address] Cammy Cleaning Glucose [Mass/Vol] 128 mg/dL Critically high 74-106 [facility] Comment on above: Performed By: #### C MP #### [facility] [address] [address] [address] Cammy Cleaning Potassium [Moles/Vol] 3.9 mmol/L Normal 3.5-5.1 [facility] Comment on above: Performed By: #### C MP #### [facility] [address] [address] [address] Cammy Cleaning Protein [Mass/Vol] 5.9 g/dL Critically low 6.4-8.2 [facility] Comment on above: Performed By: #### C MP #### [facility] [address] [address] [address] Cammy Cleaning Sodium [Moles/Vol] 141 mmol/L Normal 136-145 [facility] Comment on above: Performed By: #### C MP #### [facility] [address] [address] [address] Cammy Cleaning Urea nitrogen [Mass/Vol] 11.0 mg/dL Normal 7.0-18.0 [facility] Comment on above: Performed By: #### C MP #### [facility] [address] [address] [address] Cammy Cleaning Urea nitrogen/Creatinine [Mass ratio] 13.8 mg/mg Normal [facility] Comment on above: Performed By: #### C MP #### [facility] [address] [address] [address] Cammy Cleaning TSHon 06-07-2022 TSH 2.839 uIU/mL Normal 0.358-3.740 [facility] Comment on above: Performed By: #### T SH ####[facility] [address] [place], [place] [address]Dr. Cammy Cleaning ACETAMINOPHENon 06-06-2022 Acetaminophen [Mass/Vol] ug/mL Normal 10.0-30.0 [facility] Comment on above: Performed By: #### A CARLOS STEVE, ETH ####[facility] [address] [place], [place] [address]DrNoreen Cleaning BLOOD GASES BTYon 06-06-2022 02 MODE NASAL CANNULA Normal [facility] Comment on above: Performed By: #### A BG ####[facility] [address] [address]DrNoreen Cleaning ALLENS TEST Positive Normal [facility] Comment on above: Performed By: #### A BG ####[facility] [address] [address]DrNoreen Cleaning Base excess Calc (Bld) [Moles/Vol] 9.4 mmol/L Critically high -2.0-2.0 [facility] Comment on above: Performed By: #### A BG ####[facility] [address] [place], [place] [address]DrNoreen Cleaning BIPAP PRESSURE Normal [facility] Comment on above: Performed By: #### A BG ####[facility] [address] [address]Dr. Cammy Cleaning CPAP Normal [facility] Comment on above: Performed By: #### A BG ####[facility] [address] [address]Dr. Cammy Cleaning FIO2 Normal [facility] Comment on above: Performed By: #### A BG ####[facility] [address] [place], [place] [address]Dr. Cammy Cleaning HCO3 (Bld) [Moles/Vol] 35.1 mmol/L Critically high 22.0-26.0 [facility] Comment on above: Performed By: #### A BG ####[facility] [address] [place], [place] [address]Dr. Cammy Cleaning LPM 2 Normal [facility] Comment on above: Performed By: #### A BG ####[facility] [address] [place], [place] [address]Dr. Cammy Cleaning MINUTE VOLUME Normal [facility] Comment on above: Performed By: #### A BG ####[facility] [address] [place], [place] [address]Dr. Cammy Cleaning Oxygen (Bld) [Partial pressure] 59.8 mm[Hg] Critically low 80.0-100.0 [facility] Comment on above: Performed By: #### A BG ####[facility] [address] [place], [place] [address]Dr. Cammy Cleaning Oxygen saturation in Blood 92.4 % Critically low 95.0-100.0 [facility] Comment on above: Performed By: #### A BG ####[facility] [address] [place], [place] [address]Dr. Cammy Cleaning PCO2 63.7 mmHg Critically high 35.0-45.0 [facility] Comment on above: Performed By: #### A BG ####[facility] [address] [place], [place] [address]Dr. Cammy Cleaning PEEP [facility] Comment on above: Performed By: #### A BG ####[facility] [address] [address]Dr. Cammy Cleaning pH (Bld) 7.349 [pH] Critically low 7.350-7.450 [facility] Comment on above: Performed By: #### A BG ####[facility] [address] [address]Dr. Cammy Cleaning PIP [facility] Comment on above: Performed By: #### A BG ####[facility] [address] [address]Dr. Cammy Cleaning PS [facility] Comment on above: Performed By: #### A BG ####[facility] [address] [address]Dr. Cammy Cleaning PUNCTURE SITE LB [facility] Comment on above: Performed By: #### A BG ####[facility] [address] [address]Dr. Cammy Cleaning RATE [facility] Comment on above: Performed By: #### A BG ####[facility] [address] [address]Dr. Cammy Cleaning VENT MODE [facility] Comment on above: Performed By: #### A BG ####[facility] [address] [address]Dr. Cammy Cleaning [place] [facility] Comment on above: Performed By: #### A BG ####[facility] [address] [address]Dr. Cammy Cleaning BNPon 06-06-2022 Natriuretic peptide B (Bld) [Mass/Vol] 81.0 pg/mL Normal <=900.0 [facility] Comment on above: Performed By: #### C BC #### [facility] [address] [address] [address] Cammy Cleaning CARDIAC PILLO 3-6on 3 CK [Catalytic activity/Vol] 205 U/L Critically high 26-192 [facility] Comment on above: Performed By: #### C MREP #### [facility] [address] [address] [address] Cammy Cleaning CK.MB [Mass/Vol] 0.77 ng/mL Normal <=3.60 [facility] Comment on above: Performed By: #### C MREP #### [facility] [address] [place] [address] Dr. Cammy Cleaning HSTROP 7.5 pg/mL Normal 4.0-51.3 [facility] Comment on above: Result Comment: CUT- OFF POINTS HAVE BEEN ESTABLISHED BASED ON THE FOURTH UNIVERSAL DEFINITIONS OF MYOCARDIAL INFARCTION. THE UPPER REFERENCE LIMIT (URL) OF TROPONIN, DEFINED THE 99TH PERCENTILE OF cTnI DISTRIBUTION IN A REFERENCE POPULATION, HAS BEEN CONFIRMED THE DECISION THRESHOLD FOR ND DIAGNOSIS. Performed By: #### C MREP #### [facility] [address] [place] [address] Dr. Cammy Cleaning CK [Catalytic activity/Vol] 220 U/L Critically high 26-192 [facility] Comment on above: Performed By: #### C BC #### [facility] [address] [place] [address] Dr. Cammy Cleaning CK.MB [Mass/Vol] 0.86 ng/mL Normal <=3.60 [facility] Comment on above: Performed By: #### C BC #### [facility] [address] [place] [address] Dr. Cammy Cleaning HSTROP 8.7 pg/mL Normal 4.0-51.3 [facility] Comment on above: Result Comment: CUT- OFF POINTS HAVE BEEN ESTABLISHED BASED ON THE FOURTH UNIVERSAL DEFINITIONS OF MYOCARDIAL INFARCTION. THE UPPER REFERENCE LIMIT (URL) OF TROPONIN, DEFINED THE 99TH PERCENTILE OF cTnI DISTRIBUTION IN A REFERENCE POPULATION, HAS BEEN CONFIRMED THE DECISION THRESHOLD FOR ND DIAGNOSIS. Performed By: #### C BC #### [facility] [address] [place] [address] Dr. Cammy Cleaning CBC AUTO DIFFon 06-06-2022 BASO # 0.1 103/ul Normal 0.0-0.1 [facility] Comment on above: Performed By: #### C BC #### [facility] [address] [address] [address] Cammy Cleaning Basophils/100 WBC (Bld) 0.7 % Normal 0.2-2.0 [facility] Comment on above: Performed By: #### C BC #### [facility] [address] [address] [address] Cammy Cleaning EO # 0.6 103/ul Normal 0.0-0.7 [facility] Comment on above: Performed By: #### C BC #### [facility] [address] [address] [address] Cammy Cleaning Eosinophils/100 WBC (Bld) 5.4 % Normal 0.9-7.0 [facility] Comment on above: Performed By: #### C BC #### [facility] [address] [place] [address] Dr. Cammy Cleaning Erythrocyte distribution width (RBC) [Ratio] 14.6 % Normal 11.0-15.0 [facility] Comment on above: Performed By: #### C BC #### [facility] [address] [address] [address] Cammy Cleaning Hematocrit (Bld) [Volume fraction] 47.2 % Normal 36.0-48.0 [facility] Comment on above: Performed By: #### C BC #### [facility] [address] [place] [address] Dr. Cammy Cleaning Hemoglobin (Bld) [Mass/Vol] 15.4 g/dL Normal 12.0-16.0 [facility] Comment on above: Performed By: #### C BC #### [facility] [address] [address] [address] Cammy Cleaning IG # 0.19 10e3/ul Critically high 0.00-0.03 [facility] Comment on above: Performed By: #### C BC #### [facility] [address] [address] [address] Cammy Cleaning IG % 1.7 % Critically high 0.0-0.5 [facility] Comment on above: Performed By: #### C BC #### [facility] [address] [address] [address] Cammy Cleaning LYMPH # 1.8 103/ul Normal 1.2-3.8 [facility] Comment on above: Performed By: #### C BC #### [facility] [address] [place] [address] Dr. Cammy Cleaning Lymphocytes/100 WBC (Bld) 16.0 % Critically low 20.5-60.0 [facility] Comment on above: Performed By: #### C BC #### [facility] [address] [place] [address] Dr. Cammy Cleaning MANUAL DIFF REQ NO Normal [facility] Comment on above: Performed By: #### C BC #### [facility] [address] [place] [address] Dr. Cammy Cleaning MCH (RBC) [Entitic mass] 27.7 pg Normal 26.7-34.0 [facility] Comment on above: Performed By: #### C BC #### [facility] [address] [place] [address] Dr. Cammy Cleaning MCHC (RBC) [Mass/Vol] 32.6 g/dL Normal 29.9-35.2 [facility] Comment on above: Performed By: #### C BC #### [facility] [address] [place] [address] Dr. Cammy Cleaning MCV (RBC) [Entitic vol] 85.0 fL Normal 81.0-99.0 [facility] Comment on above: Performed By: #### C BC #### [facility] [address] [place] [address] Dr. Cammy Cleaning MONO # 0.8 103/ul Normal 0.3-0.8 [facility] Comment on above: Performed By: #### C BC #### [facility] [address] [place] [address] Dr. Cammy Cleaning Monocytes/100 WBC (Bld) 6.8 % Normal 1.7-12.0 [facility] Comment on above: Performed By: #### C BC #### [facility] [address] [place], [place] [id number] Dr. Cammy Cleaning NEUT # 7.8 103/ul Critically high 1.4-6.5 [facility] Comment on above: Performed By: #### C BC #### [facility] [address] [place] [address] Dr. Cammy Cleaning Neutrophils/100 WBC (Bld) 69.4 % Normal 43.0-75.0 [facility] Comment on above: Performed By: #### C BC #### [facility] [address] [place] [address] Dr. Cammy Cleaning Platelet mean volume (Bld) [Entitic vol] 9.0 fL Critically low 9.5-13.5 [facility] Comment on above: Performed By: #### C BC #### [facility] [address] [place] [address] Dr. Cammy Cleaning PLT 162 103/ul Normal 150-450 [facility] Comment on above: Performed By: #### C BC #### [facility] [address] [place] [address] Dr. Cammy Cleaning RBC 5.55 106/ul Critically high 4.20-5.40 [facility] Comment on above: Performed By: #### C BC #### [facility] [address] [place] [address] Dr. Cammy Cleaning WBC 11.3 103/ul Critically high 4.0-11.0 [facility] Comment on above: Performed By: #### C BC #### [facility] [address] [place] [address] ABD/PELV W CONon [...] by: Christo SARAVIA Date: 2022-06-06 02:29 Normal [facility] CT CSPINE WO CONon 3 CT [...] by: WILL HOGAN Date: 2022-06-06 02:09 Normal [facility] CT HEAD WO CONon 06-06-2022 [...] Christo SARAVIA Date: 2022-06-06 02:07 Normal [facility] CT LSPINE WO CONon 3 CT LSPINE [...] Christo SARAVIA Date: 2022-06-06 02:29 Normal [facility] CTA ABD/PELVIS WO W CONon CTA ABD/PELVIS [...] ANISH JACKSON Date: 2022-06-06 04:15 Normal [facility] Covid-19 PCR (CVDTB)on SARS-CoV-2 (COVID-19) RNA JOSE L+probe Ql (Unsp spec) Not detected Normal NOT DETECTED [facility] Comment on above: Result Comment: When diagnostic [...] for this test is supported by the [place] of Health and Human Service's declaration that [...] used). Performed By: #### C BC #### [facility] [address] [place] [address] Dr. Cammy Cleaning DRUG SCREEN RAPID (URINE)on 06-06-2022 AMP Negative Normal NEGATIVE [facility] Comment on above: Performed By: #### D FLOYD, ERUR #### [facility] [address] [place] [address] Dr. Cammy Cleaning BAR Negative Normal NEGATIVE [facility] Comment on above: Performed By: #### D FLOYD, ERUR #### [facility] [address] [place] [address] Dr. Cammy Cleaning BUP Negative Normal NEGATIVE [facility] Comment on above: Performed By: #### D FLOYD, ERUR #### [facility] [address] [place] [address] Dr. Cammy Cleaning BZO Negative Normal NEGATIVE [facility] Comment on above: Performed By: #### D PATRICIAD, ERUR #### [facility] [address] [place] [address] Dr. Cammy Cleaning JEM Negative Normal NEGATIVE [facility] Comment on above: Performed By: #### D FLOYD, ERUR #### [facility] [address] [place] [address] Dr. Cammy Cleaning CUT-OFFS SEE BELOW Normal [facility] Comment on above: Result Comment: AMP (Amphetamine): [...] Performed By: #### D RUGRPD, ERUR #### [facility] [address] [place] [address] Dr. Cammy Cleaning DRUG CUT HEADER DRUG CLASS TEST SYSTEM CUT-OFF CONCENTRATIONS ARE FOLLOWS: Normal [facility] Comment on above: Performed By: #### D RUGRPD, ERUR #### [facility] [address] [place] [address] Dr. Cammy Cleaning mAMP Negative Normal NEGATIVE [facility] Comment on above: Performed By: #### D RUGRPD, ERUR #### [facility] [address] [place] [address] Dr. Cammy Cleaning MTD Negative Normal NEGATIVE [facility] Comment on above: Performed By: #### D RUGRPD, ERUR #### [facility] [address] [place] [address] Dr. Cammy Cleaning OPI Positive Abnormal NEGATIVE [facility] Comment on above: Performed By: #### D RUGRPD, ERUR #### [facility] [address] [place] [address] Dr. Cammy Cleaning OXY Negative Normal NEGATIVE [facility] Comment on above: Performed By: #### D RUGRPD, ERUR #### [facility] [address] [place] [address] Dr. Cammy Cleaning PCP Negative Normal NEGATIVE [facility] Comment on above: Performed By: #### D RUGRPD, ERUR #### [facility] [address] [place] [address] Dr. Cammy Cleaning PPX Negative Normal NEGATIVE [facility] Comment on above: Performed By: #### D FLOYD, ERUR #### [facility] [address] [address] [address] Cammy Cleaning TCA Negative Normal NEGATIVE [facility] Comment on above: Performed By: #### D FLOYD, ERUR #### [facility] [address] [place] [address] Dr. Cammy Cleaning THC Negative Normal NEGATIVE [facility] Comment on above: Performed By: #### D FLOYD, ERUR #### [facility] [address] [place] [address] Dr. Cammy Cleaning ER URINE PROFILEon 3 Bilirubin Ql (U) Negative Normal NEGATIVE [facility] Comment on above: Performed By: #### D FLOYD, ERUR #### [facility] [address] [place] [address] Dr. Cammy Cleaning Clarity (U) CLEAR Normal CLEAR [facility] Comment on above: Performed By: #### Mayda BARRIENTOS, ERUR #### [facility] [address] [place] [address] Dr. Cammy Cleaning Color (U) YELLOW Normal YELLOW [facility] Comment on above: Performed By: #### D FLOYD, ERUR #### [facility] Laboratory [address] [place] [address] Dr. Cammy VELIZ A micrscopic examination will be performed if indicated. Normal [facility] Comment on above: Performed By: #### Mayda BARRIENTOS, ERUR #### [facility] [address] [place] [address] Dr. Cammy Cleaning Glucose Ql (U) >[address] [facility] Comment on above: Performed By: #### Mayda BARRIENTOS, ERUR #### [facility] [address] [place] [address] Dr. Cammy Cleaning Hemoglobin Ql (U) Negative Normal NEGATIVE [facility] Comment on above: Performed By: #### D FLOYD, ERUR #### [facility] [address] [place] [address] Dr. Cammy Cleaning Ketones Ql (U) Negative Normal NEGATIVE [facility] Comment on above: Performed By: #### D FLOYD, ERUR #### [facility] [address] [address] [address] Cammy Cleaning LEUKOCYTES Negative Normal NEGATIVE [facility] Comment on above: Performed By: #### D FLOYD, ERUR #### [facility] [address] [address] [address] Cammy Cleaning Nitrite Ql (U) Negative Normal NEGATIVE [facility] Comment on above: Performed By: #### D FLOYD, ERUR #### [facility] [address] [address] [address] Cammy Cleaning pH (U) 5.0 [pH] Normal 5-9 [facility] Comment on above: Performed By: #### D FLOYD, ERUR #### [facility] [address] [place] [address] Dr. Cammy Cleaning SPEC GRAVITY 1.010 Normal 1.005-<=1.025 The [facility] Comment on above: Performed By: #### D FLOYD, ERUR #### [facility] [address] [address] [address] Cammy Cleaning UA PROTEIN TRACE Normal NEGATIVE/ TRACE [facility] Comment on above: Performed By: #### D FLOYD, ERUR #### [facility] [address] [place] [address] Dr. Cammy Cleaning UR MICRO IND NOT INDICATED Normal [facility] Comment on above: Performed By: #### D FLOYD, ERUR #### [facility] [address] [place] [address] Dr. Cammy Cleaning Urobilinogen Qn (U) 0.2 {Flory'U}/dL Normal 0.2 - 1. 0 [facility] Comment on above: Performed By: #### D FLOYD, ERUR #### [facility] [address] [place] [address] Dr. Cammy Cleaning ETHANOL (BLD ALC)on 06-06-19 ALC NOTE NOTE: 80 mg/dl is th e legal limit for a blood alcohol level Normal [facility] Comment on above: Performed By: #### A CARLOS STEVE, KAILEY ####[facility] [id number] [address] Cammy Cleaning Ethanol [Mass/Vol] mg/dL [facility] Comment on above: Performed By: #### A CARLOS STEVE, KAILEY ####[facility] [id number] [address] Cammy Cleaning POINT OF CARE GLUCOSEon Glucose [Mass/Vol] 180 mg/dL Critically high -106 [facility] Comment on above: Performed By: #### P OCGLUC #### [facility] [address] [address] [address] Cammy Cleaning Glucose [Mass/Vol] 133 mg/dL Critically high [facility] Comment on above: Performed By: #### C BC #### [facility] [address] [address] [address] Cammy Cleaning Glucose [Mass/Vol] 201 mg/dL Critically high [facility] Comment on above: Performed By: #### C BC #### [facility] [address] [address] [address] Cammy Cleaning Glucose [Mass/Vol] 112 mg/dL Critically high [facility] Comment on above: Performed By: #### P OCGLUC #### [facility] [address] [address] [address] Cammy Cleaning PROF CHEM 8 (BAS METB)on Anion gap [Moles/Vol] 6.7 mmol/L Normal [facility] Comment on above: Performed By: #### C BC #### [facility] [address] [address] [address] Cammy Cleaning Calcium [Mass/Vol] 8.7 mg/dL Normal 8.5-10.1 [facility] Comment on above: Performed By: #### C BC #### [facility] [address] [address] [address] Cammy Cleaning Chloride [Moles/Vol] 102 mmol/L Normal 98-107 [facility] Comment on above: Performed By: #### C BC #### [facility] [address] [address] [address] Cammy Cleaning CO2 [Moles/Vol] 35.6 mmol/L Critically high 21.0-32.0 [facility] Comment on above: Performed By: #### C BC #### [facility] [address] [address] [address] Cammy Cleaning Creatinine [Mass/Vol] 0.93 mg/dL Normal 0.55-1.02 [facility] Comment on above: Performed By: #### C BC #### [facility] [address] [place] [address] Dr. Cammy Cleaning EGFR-AF CITIZEN [place] >60 Normal >=60 [facility] Comment on above: Performed By: #### C BC #### [facility] [address] [place] [address] Dr. Cammy Cleaning EGFR-NON AF CITIZEN OF [place] >60 Normal >=60 [facility] Comment on above: Performed By: #### C BC #### [facility] [address] [place] [address] Dr. Cammy Cleaning Glucose [Mass/Vol] 169 mg/dL Critically high 74-106 [facility] Comment on above: Performed By: #### C BC #### [facility] [address] [place] [address] Dr. Cammy Cleaning Potassium [Moles/Vol] 4.3 mmol/L Normal 3.5-5.1 [facility] Comment on above: Performed By: #### C BC #### [facility] [address] [address] [address] Cammy Cleaning Sodium [Moles/Vol] 140 mmol/L Normal 136-145 [facility] Comment on above: Performed By: #### C BC #### [facility] [address] [place] [address] Dr. Cammy Cleaning Urea nitrogen [Mass/Vol] 15.0 mg/dL Normal 7.0-18.0 [facility] Comment on above: Performed By: #### C BC #### [facility] [address] [place], [place] [address] Dr. Cammy Cleaning Urea nitrogen/Creatinine [Mass ratio] 16.1 mg/mg Normal [facility] Comment on above: Performed By: #### C BC #### [facility] [address] [place], [place] [address] Dr. Cammy Cleaning SALICYLATEon 06-06-2022 SALICYLATE 1.6 mg/dL Normal <=19.9 [facility] Comment on above: Performed By: #### A CET, SALYC, ETH ####[facility] [address] [place], [place] [address]KvDr. Cammy Cleaning XR CHEST 1 Von 06-06-2022 [...] by: CELESTE LUNA Date: 2022-06-06 02:58 Normal [facility] MRI KNEE LT WO CONon 022 [...] by: BURT FIGUEROA Date: 2022-05-10 15:59 Normal [facility] Progress Noteson 01-25-2022 Machine Helper Authentication Interface Message Text EMERGENCY TRIAGE, TREAT AND TRANSPORT (ET3) DOCUMENTATION OF TELEHEALTH VISIT Date / Time: 01/14/2022729 Name: Sanna Corrales : 1960 SSN: (Not on file) EMS Agency: [facility] [] Verbal consent obtained [] Implied consent - patient with potential emergency medical condition requiring assessment of capacity to refuse treatment and/or transport VITAL SIGNS: see flowsheet documentation Reason for Telehealth Visit: Chief Complaint Patient presents with Fall History of Present Ilness: 61 yo female who [facility] called for lift assist. No LOC, [...] Completed by: Tyler Ingram DO Normal [facility] XR CSPINE 2_3 VIEWSon 2021 XR [...] by: CHRISTEN BAKER Date: 2022-01-04 19:14 Normal [facility] CT SINUSES WO CONon 11-23-19 [...] by: ANISH ROJO Date: 2021-11-22 13:29 Normal [facility] Vital Signs Date Time Vital Sign Value Performing Clinician Facility 03-14-2024 09:55-0400 Body mass index (BMI) [Ratio] 53.51 kg/m2 Yarelis Weinberg APRN-GUN BARREL FINISHER Work Phone: [facility] 03-14-2024 09:55-0400 Body weight 124.29 kg Yarelis Coffmansechristo BLOCK AND CASE MAKER-GUN BARREL FINISHER Work Phone: [facility] 03-14-2024 09:55-0400 Diastolic blood pressure 82 mm[Hg] Yarelis Coffmansechristo BLOCK AND CASE MAKER-GUN BARREL FINISHER Work Phone: [facility] 03-14-2024 09:55-0400 Heart rate 72 /min Yarelis Coffmansechristo BLOCK AND CASE MAKER-GUN BARREL FINISHER Work Phone: [facility] 03-14-2024 09:55-0400 SaO2% (BldA) [Mass fraction] 85 % Yarelis Coffmansechristo BLOCK AND CASE MAKER-GUN BARREL FINISHER Work Phone: [facility] 03-14-2024 09:55-0400 Systolic blood pressure 134 mm[Hg] Yarelis Coffmansechristo BLOCK AND CASE MAKER-GUN BARREL FINISHER Work Phone: [facility] 01-25-2022 11:40-0400 Diastolic blood pressure 82 mm[Hg] [...] 03-14-2024 End: 03-14-2024 Bamboo flowsheet Yarelis Coffmansechristo BLOCK AND CASE MAKER-GUN BARREL FINISHER Work Phone: [facility] Start: 03-14-2024 End: 03-14-2024 Bamboo flowsheet Yarelis Coffmansechristo BLOCK AND CASE MAKER-GUN BARREL FINISHER Work Phone: [facility] Start: 03-14-2024 End: 03-14-2024 Office outpatient new 60 minutes Yarelis Weinberg BLOCK AND CASE MAKER-GUN BARREL FINISHER Work Phone: [facility] Comment on [...] Not Available Start: 05-09-2023 ambulatory Pratik Ramos acility:[facility] Start: 09-01-2022 ambulatory NARENDRANATH LAKSHMIPATHY . Facility:[facility] Start: 08-23-2022 End: 08-23-2022 ambulatory NARENDRANATH LAKSHMIPATHY . Facility:[facility] Start: 07-28-2022 End: 07-29-2022 ambulatory NARENDRANATH LAKSHMIPATHY . Facility:[facility] Start: 07-26-2022 End: 07-27-2022 ambulatory NARENDRANATH LAKSHMIPATHY . Facility:[facility] Start: 07-11-2022 End: 07-12-2022 ambulatory CHRISTEN BAKER Facility:[facility] Start: 06-06-2022 End: 06-08-[address] JER RIZO Facility:[facility] Start: 05-10-2022 End: 05-11-2022 ambulatory MR TYLER ESTRDAA . Facility:[facility] Start: 01-25-2022 End: 02-02-2022 ambulatory UNKNOWN PROVIDER Facility:[facility] Start: 01-14-2022 End: 01-14-2022 ambulatory [facility] Emergenc y Triage, Treat and Transport Start: 01-14-2022 End: 01-14-2022 Emergency department patient visit [facility] Emergency Triage, Treat and Transport Comment [...] PM EST Office Visit [facility] [address] [facility] [address] [place] [address] Yarelis Weinberg, BLOCK AND CASE MAKER-GUN BARREL FINISHER [address] [facility] [address] [place] [address] [facility] Start: 04-11-2024 End: 04-11-2024 Professional / ancillary services management 04/11/2024 2:00 PM EST Ancillary Procedure [facility] [address] [place] [address] [facility] Start: 03-25-2024 End: 03-25-2024 Patient encounter procedure 03/25/2024 1:00 PM EDT Office Visit [facility] [address] [place] [address] Erin Tariq PA [address] [place] [address] [facility] Start: 03-23-2024 Urine screening for protein Diabetes: Urine Protein Screening [facility] Start: 03-22-2024 Medicare Annual Well ness (AWV) Medicare Annual Wellness (AWV) [facility] Start: 03-14-2024 End: 03-14-2024 Patient encounter procedure 03/14/2024 9:30 AM EDT Office Visit [facility] [address] [place] [address] Yarelis Weinberg, BLOCK AND [facility] [address] [place] [address] Arrived [facility] Comment on above: Arrived Start: 03-07-2024 Hemoglobin A1c measurement Diabetes: Hemoglobin A1C [facility] Start: 07-18-2023 End: 07-18-2023 Patient encounter procedure 07/18/2023 2:15 PM EST Office Visit [facility] [address] [place] [address] Swathi Baca DO [address] [place] [address] [facility] Start: 07-05-2023 End: 07-05-2023 Patient encounter procedure 07/05/2023 2:00 PM EST Office Visit [facility] [address] [place] [address] Erin Tariq PA [address] [place] [address] [facility] Start: 06-22-2023 Hemoglobin A1c measurement Diabetes: Hemoglobin A1C [facility] Start: 02-26-2022 Influenza vaccination Influenza Vacc ine (#1) [facility] Start: 2011 Measurement of occul t blood in single stool specimen FIT [facility] Start: 2011 Screening for malign ant neoplasm of [facility] Start: 2011 Screening for malign ant neoplasm of colon CRC Screening [facility] Start: 2011 Shingles (RZV) Vacci ne (1 of 2) Shingles (RZV) Vaccine (1 of 2) [facility] Start: 2006 Cholesterol [Mass/vo lume] in Serum or Plasma Cholesterol [facility] Start: 1991 Screening for malign ant neoplasm of cervix [facility] Start: 1982 Screening for malign ant neoplasm of cervix Pap Smear [facility] Start: 1979 Hepatitis C screening Hepatitis C An tibody [facility] Start: 1979 Tetanus + diphtheria + acellular pertussis vaccine (product) Tdap Booster [facility] Start: 1976 HIV screening HIV Test [facility] Start: 1961 COVID-19 Vaccine (#1) COVID-19 Vacci ne (#1) [facility] Start: 1961 Screening for malign ant neoplasm of colon [facility] Immunizations Immunization Date Immunization Notes Care Provider Fa cility 02-21-2024 influenza, seasonal, injectable, preservative free Yarelis Daily-Nossek BLOCK AND CASE MAKER-GUN BARREL FINISHER Work Phone: [facility] 12-06-2023 tetanus toxoid, redu aimee diphtheria toxoid, and acellular pertussis vaccine, adsorbed Yarelis Daily-Nossek BLOCK AND CASE MAKER-GUN BARREL FINISHER Work Phone: [facility] 04-13-2023 Influenza, injectabl e, Madin Andria Canine Kidney, preservative free, quadrivalent Yarelis Daily-Nossek BLOCK AND CASE MAKER-GUN BARREL FINISHER Work Phone: [facility] 04-13-2023 RSV, recombinant, pr otein subunit RSVpreF, adjuvant reconstitu, 120mcg/0.5mL, PF (Arexvy) Yarelis Daily-Nossek BLOCK AND CASE MAKER-GUN BARREL FINISHER Work Phone: [facility] 06-13-2022 Pneumococcal Conjuga te PCV 20 Erin Hemmer PA Work Phone: [facility] 03-31-2022 Influenza, injectabl e, Madin Andria Canine Kidney, preservative free, quadrivalent Erin Hemmer PA Work Phone: [facility] 03-24-2021 influenza, injectabl e, quadrivalent, contains preservative Erin Hemmer PA Work Phone: [facility] 03-10-2020 Influenza, injectabl e, Madin Capac Canine Kidney, preservative free, quadrivalent Erin Hemmer PA Work Phone: [facility] 03-12-2019 influenza, injectabl e, madin andria canine kidney, preservative free Erin Hemmer PA Work Phone: [facility] 04-06-2018 Influenza, injectabl e, Madin Capac Canine Kidney, preservative free, quadrivalent Erin Hemmer PA Work Phone: [facility] 02-21-2017 pneumococcal polysaccharide vaccine, 23 valent Erin Hemmer PA Work Phone: [facility] 02-21-2017 seasonal influenza, intradermal, preservative free Erin Hemmer PA Work Phone: [facility] 04-19-2016 influenza, injectabl e, quadrivalent, preservative free Erin Hemmer PA Work Phone: [facility] 02-04-2015 seasonal influenza, intradermal, preservative free Erin Hemmer PA Work Phone: [facility] 03-25-2008 seasonal influenza, intradermal, preservative free Erin Hemmer PA Work Phone: [facility] Payers Date Payer Category Payer Medicare (Managed Care) [facility] [id number] 2023 Unknown [id number] 2022 Self-pay 2022 Medicare [employer]IC[employer] E [employer]ARE [id number] 2022-Present [address] [address] [place] [address] [id number] 2022 Unknown SP/UNINSURED PEN DING FINANCIAL PROGRAM EVALUATION 9 2022-Present [phone] [address] [place] [address] Other [id number] 2022 Unknown 9 2021 Unknown [id number] 1960 Unknown [id number] 2.16.840.1.824806.3.579. 2.732 1960 Unknown [id number] 2.16.840.1.015241.3.579. 2.593 1960 Unknown [id number] 2.16.840.1.947187.3.579. 2.593 1960 Unknown [id number] 2.16.840.1.213392.3.579. 2.593 1960 Unknown [id number] 2.16.840.1.207106.3.579. 2.593 1961 Unknown [id number] 2.16.840.1.339451.3.579. 2.593 1961 Unknown [id number] 2.16.840.1.468268.3.579. 2.593 1961 Unknown [id number] 2.16.840.1.617706.3.579. 2.593 1961 Unknown [id number] 2.16.840.1.323503.3.579. 2.593 1961 Unknown [id number] 2.16.840.1.675227.3.579. 2.593 1961 Unknown [id number] 2.16.840.1.590292.3.579. 2.1259 1961 Unknown [id number] 2.16.840.1.914102.3.579. 2.1259 1961 Unknown [id number] 2.16.840.1.137930.3.579. 2.1259 1961 Unknown [id number] 2.16.840.1.839534.3.579. 2.1259 1961 Unknown [id number] 2.16.840.1.872110.3.579. 2.1259 1961 Unknown [id number] 2.16.840.1.747872.3.579. 2.1259 1961 Unknown [id number] 2.16.840.1.116946.3.579. 2.1259 1961 Unknown [id number] 2.16.840.1.178536.3.579. 2.1259 1961 Unknown [id number] 2.16.840.1.277595.3.579. 2.1259 Unknown [id number] 2.16.840.1.033565.3.579. 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 Check blood glucose daily.. 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 Patient was previously a patient of Dr. Parekh at [facility]. Patient had also seen Dr. Huddleston [...] suffers from alcoholism. Her Brother is a abstract checker and denies any mental health problems. Denies Hx of Substance abuse. Frequency of Alcohol on special occasions. Marijuana use denies. Legal hx denies. Patient is no children. Worked at [employer]. Lives with her sister. Stressors: Patient states [...] previously a patient of Dr. Parekh at [facility]. Patient had also seen Dr. Huddleston [...] purpose. I have decreased the use of Lowman from q. 6 hours to q.i.d., 5 mg pills, to be taken as tolerated, and to increase the baclofen 10 mg pill, one pill t.i.d. also as tolerated. Went over the details of the procedure with the patient. All her questions were answered. She agrees to proceed with the outlined plan. [facility] Clinical Note 06-06-2022 Note Date & Type [...] by: BURT FIGUEROA Date: 2022-06-06 13:36 [facility] History of Present illness Narrative 01-25-2022 Tyler Ingram DO - 01/25/2022 11:40 AM EDT Note Date & Type Note Facility 01-25-2022 History of Presen t illness Narrative Images from the original note were not included. EMERGENCY TRIAGE, TREAT AND TRANSPORT (ET3) DOCUMENTATION OF TELEHEALTH VISIT Date / Time: 01/14/2022729 Name: Sanna Corrales : 1960 SSN: (Not on file) EMS Agency: [facility] [] Verbal consent obtained [] Implied consent - patient with potential emergency medical condition requiring assessment of capacity to refuse treatment and/or transport VITAL SIGNS: see flowsheet documentation Reason for Telehealth Visit: Chief Complaint Patient presents with Fall History of Present Ilness: 61 yo female who [facility] called for lift assist. No LOC, [...] note Diagnosis Mixed bipolar affective disorder, moderate ([facility]) Bipolar I disorder, most recent episode (or current) mixed, moderate JENN (generalized anxiety disorder) ([facility]) Generalized anxiety disorder documented in this encounter [...] CREATED AUTHOR AUTHOR'S ORGANIZ ATION 08/31/2022 [facility] [place] [facility] DATE CREATED AUTHOR AUTHOR'S ORGANIZ ATION 08/04/2023 [facility] DATE CREATED AUTHOR AUTHOR'S ORGANIZ ATION 03/16/2024 [facility] EPIC Care Teams (unrecognized sec tion and content) 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 Relationship Specialty Start Date End Date Jer Rizo MD [address] [facility] [address] [place] [address] PCP - General Internal Medicine 01/03/23 Jer Rizo MD [address] [place] [address] PCP - Devoted 05/29/23 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 [facility]. provides no warranty or guarantee of the accuracy or completeness of information in this document.
--- NOTE | 2024-03-25 13:42 | PM.CN ---
Consult Note: [facility] Data of Consult Patient: new to practice Consult date: 03/25/24 Requesting Physician: Divya Alfaro MD Primary Care Provider: Non-Staff Physician, Consult Narrative Reason for consult: neck, low back pain Narrative: 64yof who presents for evaluation. longstanding neck, low back pain history. recently exacerbated her pain in her neck especially. she notes she fell at home and fell through a wall. she had imaging completed in the ED of her neck and low back, which shows multilevel spondylosis throughout cervical and lumbar spines, though no acute pathology noted. she has continued in a series of provider directed home exercises >6 weeks, without any lasting benefit. she uses pain meds as needed, including baclofen and gabapentin. denies adverse med side effects. cc:: CC: Divya Alfaro MD Review of Systems ROS Status of ROS 10 or more systems reviewed and unremarkable except as noted in history and below [facility] Medical History Endometriosis ?N80.9 - Endometriosis, unspecified (ICD-10) Osteoporosis ?M81.0 - Age-related osteoporosis without current pathological fracture (ICD-10) Asthma ?J45.909 - Unspecified asthma, uncomplicated (ICD-10) Chronic respiratory failure with hypoxia, on home O2 therapy ?J96.11 - Chronic respiratory failure with hypoxia (ICD-10) ?Z99.81 - Dependence on supplemental oxygen (ICD-10) Hiatal hernia ?K44.9 - Diaphragmatic hernia without obstruction or gangrene (ICD-10) Degenerative disc disease, lumbar ?M51.36 - Other intervertebral disc degeneration, lumbar region (ICD-10) Bipolar disorder ?F31.9 - Bipolar disorder, unspecified (ICD-10) Fibromyalgia ?M79.7 - Fibromyalgia (ICD-10) Hypothyroidism ?E03.9 - Hypothyroidism, unspecified (ICD-10) Rheumatoid arthritis ?M06.9 - Rheumatoid arthritis, unspecified (ICD-10) DM2 (diabetes mellitus, type 2) ?E11.9 - Type 2 diabetes mellitus without complications (ICD-10) Mixed hyperlipidemia ?E78.2 - Mixed hyperlipidemia (ICD-10) Essential hypertension ?I10 - Essential (primary) hypertension (ICD-10) Obesity ?E66.9 - Obesity, unspecified (ICD-10) COPD (chronic obstructive pulmonary disease) ?J44.9 - Chronic obstructive pulmonary disease, unspecified (ICD-10) Stable angina pectoris ?I20.89 - Other forms of angina pectoris (ICD-10) Surgical History H/O laparoscopy ?Z98.890 - Other specified postprocedural states (ICD-10) H/O cataract extraction ?Z98.49 - Cataract extraction status, unspecified eye (ICD-10) Hx laparoscopic cholecystectomy ?Z90.49 - Acquired absence of other specified parts of digestive tract (ICD-10) H/O cardiac catheterization ?Z98.890 - Other specified postprocedural states (ICD-10) Family History Other Breast cancer CAD (coronary artery disease) Family history of cancer Family history of diabetes mellitus Family history of hypertension Family history of myocardial infarction Social History Within the past year, how often did you have a drink containing alcohol: never Score interpretation: A score less than 3 is consistent with normal alcohol consumption. Smoking status: Never smoker Previous occupational history: retired/disability Highest level of school completed/degree received: high school graduate Little interest or pleasure in doing things: not at all Feeling down, depressed, or hopeless: not at all Gender Identity: female Meds Home Medications and Allergies Home Medications ?Medication ?Instructions ?Recorded ?Confirmed ?Type baclofen 10 mg tablet 10 mg PO Q12H muscle spasm 06/27/23 03/25/24 History budesonide 160 mcg-glycopyr 9 2 inh inhalation BID 06/27/23 01/04/24 History mcg-formot 4.8 mcg/actuation HFA inhaler (Breztri Aerosphere) buspirone 30 mg tablet 30 mg PO BID 06/27/23 03/25/24 History cariprazine 3 mg capsule (Vraylar) 3 mg PO QDAY 06/27/23 03/25/24 History dapagliflozin propanediol 10 mg 10 mg PO QAM 06/27/23 03/25/24 History tablet (Farxiga) diclofenac sodium 75 mg 75 mg PO Q12H 06/27/23 03/25/24 History tablet,delayed release duloxetine 60 mg capsule,delayed 120 mg PO BEDTIME 06/27/23 03/25/24 History release (Cymbalta) furosemide 40 mg tablet 40 mg PO BID 06/27/23 03/25/24 History gabapentin 600 mg tablet 1,200 mg PO QPM 06/27/23 03/25/24 History gabapentin 600 mg tablet 600 mg PO QAM 06/27/23 03/25/24 History levothyroxine 112 mcg tablet 112 mcg PO DAILY 06/27/23 03/25/24 History rosuvastatin 5 mg tablet 5 mg PO .qhs 06/27/23 03/25/24 History metoprolol tartrate 25 mg tablet 25 mg PO BID 06/28/23 03/25/24 History linagliptin 5 mg tablet (Tradjenta) 5 mg PO DAILY 12/04/23 01/04/24 History Allergies Allergy/AdvReac Type Severity Reaction Status Date / Time ibandronate sodium (From Allergy Severe Hives Verified 03/18/24 04:54 Boniva) Sulfa (Sulfonamide Allergy Severe Anaphylaxis Verified 03/18/24 04:54 Antibiotics) Penicillins Allergy Intermediate Anaphylaxis Verified 03/18/24 04:54 Exam Narrative Exam Narrative: Psych-alert and oriented x 3.? Attentive and appropriate, constitutionally normal, displays normal mood and affect per situation.? There are no obvious deficits in memory, reasoning, or intellect.? Skin-no obvious rashes, bruising, or erythema noted to the patient's area of pain. Extremities-upper extremities are warm with minimal edema and palpable pulses. Cervical- tenderness to palpation noted in the cervical spine and paraspinal musculature.? Pain is elicited with extension, and lateral rotation of the cervical spine.? Range of motion is slightly diminished due to pain. Facet loading maneuvers are positive bilaterally.? Coordination remains intact.? Gait remains non-antalgic. Assessment and Plan Assessment and Plan (1) Cervical spondylosis: (2) Lumbar spondylosis: Plan 64yof who presents for assessment. failed conservative measures, as noted. imaging reviewed, as noted. given symptoms and imaging, prudent to attempt diagnostic bilateral C2-3, 3-4 medial branch blocks under fluoroscopic guidance with intention of proceeding to radiofrequency ablation. she is in agreement. meds reviewed. uds obtained. will trial tramadol 50mg bid prn. follow up after procedure.
== END 2024-03-25 11:40 | disposition home or self-care (01) ==
PROVIDERS: Visit Provider Anesthesiology
DX: M47.812 Spondylosis without myelopathy or radiculopathy, cervical region (principal); M47.816 Spondylosis without myelopathy or radiculopathy, lumbar region
CPT/HCPCS: G0463

== ENCOUNTER 2024-04-15 08:48 | Day surgery (SDC) | payer OTHER, MEDICAID, SELFPAY ==
[2024-04-15 08:57] VITALS: BP 111/77; PULSE 65; TEMP 37.2; O2SAT 97
--- OUTSIDE RECORDS SUMMARY | 2024-04-15 08:59 | XMS_ITS | CCD ---
Author Organization [facility] Care Team Providers Care Blister Rust Eradicator Name Role Phone Unavailable Primary Care Provider [...] Unavailable ELIEZER ., OMID Consulting Unavailable CHRISTEN BAKRE Consulting Unavailable ESTRADA ., MR TYLER Attending Unavailable ESTRADA ., MR TYLER Admitting Unavailable FREDY, DR RUSSELL Primary Care Unavailable ESTRADA ., MR TYLER Consulting Unavailable LAKSHMIPATHY ., NARENDVICTORIANOATH Attending Rachael vailable LAKSHMIPATHY ., NARENDRANATH Admitting Rachael vailable BRIA GUAJARDO Consulting Unavailable DR JER RIZO Primary Care Unavailable RAFA ., [place]OM[place] Consulting Rachael Jer Fitch MD Primary Care Provider Jer Rizo MD Unavailable Pratik Soria Attending Unavailab Pratik Dunlap Admitting Unavailab Jer Calvin Primary Care Unavailable HEMERIN MARIANO Attending Unavailable TYLER ESTRADA Attending Unavailable TYLER ESTRADA Referring Unavailable SWATHI BACA Attending Unavailable CATERINAPILLO Referring Unavailable HEMMERERIN Attending Unavailable KARHLSWATHI BARTLETT Attending Unavailable HEMMERERIN Referring Unavailable HEMMERERIN Attending Unavailable YARELIS WEINBERG Attending Unavailab le HEMMERERIN Attending Unavailable Divya Alfaro MD Attending Unavailable Allergies Allergy Classification Reported Allergen(s) Allergy Type Date of Onset Reaction(s) Facility (2 sources) cefdinir Drug Allergy [address] [facility] Repository (1 source) Codeine Drug Allergy [facility] Repository (2 sources) Ibandronate Drug Allergy [address] [facility] Rep[facility] (2 sources) nabumetone Drug Allergy [address] [facility] Rep[facility] (2 sources) Penicillins Drug allergy (disorder) [address] [facility] Rep[facility] (2 sources) Sulfonamides (Antibiotic) Drug allergy (disorder) [address] [facility] Rep[facility] (8 sources) cefdinir Drug All[facility] 3 [facility] Work Phone: (8 sources) Ibandronate Drug Allergy 3 [facility] (8 sources) nabumetone Drug Allergy 3 [facility] (8 sources) Penicillin G Drug Allergy 3 [facility] (8 sources) Sulfanilamide Allergy to substance 3 [facility] (6 sources) Sertraline Drug Allergy 4 [facility] (6 sources) zolpidem Drug Allergy 4 Other [facility] Healthcare Medications Current Medications Medication Drug Class(es) Dates Sig (Normalized) Sig (Original) acetaminophen 325 mg / HYDROcodone bitartrate 5 mg oral tablet (8 sources) Opioid Agonist Start: 02-21-2024 take 1 tablet by mouth every six hours for pain HYDROcodone-acetam inophen (Sherrill) 5-325 MG tablet Indications: Cervical spondylosis Take 1 tablet by mouth every 6 (six) hours if needed for severe pain or moderate pain 56 tablet 02/21/2024 Active Start: 03-22-2023 take 1 tablet by tk th every six hours for pain HYDROcodone-acetaminophen (Sherrill) 5-325 MG tablet Indications: Cervical spondylosis Take 1 tablet by mouth every 6 (six) hours if needed for severe pain or moderate pain. 56 tablet 0 03/22/2023 Active [id number] 200 actuat albuterol 0.09 mg/actuat metered dose inhaler (16 sources) beta2-Adrenergic Agonist Start: 12-06-2023 take 2 [...] wheezing or shortness of breath. 0 Active bacillus coagulans [id number] unt / inulin 250 mg oral capsule (3 sources) Start: 03-27-2024 Bacillus Coagulans-Inulin (Probiotic Formula) 1-250 BILLION-MG capsule Indications: Chronic diarrhea Take 1 capsule by mouth at noon and 1 capsule in the evening. 60 capsule 2 03/27/2024 Active baclofen 10 mg oral tablet (8 sources) gamma-Aminobut yric Acid-ergic Agonist Start: 03-05-2024 take 1 tablet [...] 03/22/2023 Active Blood Glucose Monitoring Suppl device (8 sources) Start: 04-04-2023 Blood Glucose Monitoring Suppl device Indications: Type 2 diabetes mellitus with other specified complication, without long-term current use of insulin ([facility]) USE DIRECTED 100 strip 2 04/04/2023 Active 120 actuat budesonide 0.16 mg/actuat / formoterol fumarate 0.0048 mg/actuat / glycopyrrolate 0.009 mg/actuat metered dose inhaler (8 sources) Corticosteroi d, beta2-Adrener gic Agonist Start: 09-05-2023 take 2 puff(s) by inhalation in the morning Budeson-Glycopyrrol -Formoterol (Breztri Aerosphere) 160-9-4.8 MCG/ACT aerosol Indications: Chronic obstructive pulmonary disease, unspecified COPD type ([facility]) Inhale 2 puffs in the morning and 2 puffs before bedtime. 10.7 g 5 09/05/2023 Active Start: 03-08-2023 take 2 puff(s) by in halation in the morning Breztri Aerosphere 160-9-4.8 MCG/ACT aerosol Inhale 2 puffs in the morning and 2 puffs before bedtime. 0 03/08/2023 Active busPIRone hydrochloride 15 mg oral tablet (10 sources) Start: 03-14-2024 End: 03-14-2025 take 1 tablet by mouth in the morning busPIRone (Buspar) 15 MG tablet Indications: JENN (generalized anxiety disorder) (CMS/HCC) Take 1 tablet (15 mg) by mouth in the morning and 1 tablet (15 mg) before bedtime. 60 tablet 2 03/14/2024 03/14/2025 Active End: 03-14-2024 take 1 tablet by mouth in the morning busPIRone (Buspar) 30 MG tablet Take 1 tablet by mouth in the morning and 1 tablet before bedtime. 03/14/2024 Discontinued cariprazine 3 mg oral capsule (10 sources) Atypical Antipsychotic Start: 03-14-2024 End: 04-13-2024 [...] 0 Active dapagliflozin 10 mg oral tablet (8 sources) Sodium-Glucose Cotransporter 2 Inhibitor Start: 11-06-2023 [...] sodium 75 mg delayed release oral tablet (8 sources) Nonsteroidal Anti-inflammatory Drug Start: 01-26-2024 take 1 tablet by mouth in the morning diclofenac (Voltaren) 75 MG EC tablet Indications: Rheumatoid arthritis, unspecified (CMS/HCC) TAKE 1 TABLET BY MOUTH IN THE MORNING AND 1 TABLET BEFORE BEDTIME. DO NOT CRUSH, CHEW, OR SPLIT. 200 tablet 3 01/26/2024 Active Start: 11-23-2022 take 1 tablet by kt th in the morning diclofenac (Voltaren) 75 MG EC tablet Indications: Rheumatoid arthritis, unspecified (CMS/HCC) Take 1 tablet (75 mg) by mouth in the morning and 1 tablet (75 mg) before bedtime. Do not crush, chew, or split.. 200 tablet 3 11/23/2022 Active DULoxetine 60 mg delayed release oral capsule (8 sources) Serotonin and Norepinephrine Reuptake Inhibitor Start: [...] propionate 0.05 mg/actuat metered dose nasal spray (4 sources) Corticosteroid Start: 03-27-2024 End: 03-27-2025 take 1 spray(s) nasal route once daily fluticasone (Flonase Allergy Relief) 50 MCG/ACT nasal spray Indications: Chronic sinusitis, unspecified location Administer 1 spray into each nostril Daily Shake gently. Before first use, prime pump. After use, clean tip and replace cap. 16 g 1 03/27/2024 03/27/2025 Active take 1 spray(s) nasa l route in the morning fluticasone (Flonase) 50 MCG/ACT nasal spray Administer 1 spray into each nostril in the morning. 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 300 tablet 3 11/04/2022 Active ketorolac tromethamine 5 mg/ml ophthalmic solution (1 source) Nonsteroidal Anti-inflammatory Drug, Cyclooxygenase Inhibitor Start: 03-28-2024 End: 04-27-2024 take 1 drop(s) into the eye(s) in the morning ketorolac (Acular) 0.5 % ophthalmic solution Indications: Age-related nuclear cataract of both eyes ADMINISTER 1 DROP INTO AFFECTED EYE(S) IN THE MORNING AND 1 DROP BEFORE BEDTIME 5 mL 1 03/28/2024 04/27/2024 Active lamoTRIgine 25 mg oral tablet (16 sources) Mood Stabilizer, Anti-epileptic Agent Start: 02-21-2024 [...] Active levothyroxine sodium 0.112 mg oral tablet (8 sources) l-Thyroxine Start: 11-27-2023 take 1 tablet [...] 11/23/2022 Active linagliptin 5 mg oral tablet (8 sources) Dipeptidyl Peptidase 4 Inhibitor Start: 02-09-2024 take 1 tablet by mouth once daily Tradjenta 5 MG tablet Indications: Type 2 diabetes mellitus with autonomic neuropathy, unspecified whether skilled nursing insulin use (CMS/HCC) TAKE 1 TABLET BY MOUTH EVERY DAY 90 tablet 03/28/2024 Active take 1 tablet by mouth once [...] Active metoprolol tartrate 25 mg oral tablet (8 sources) beta-Adrenergic Sher Start: 10-30-2023 take 1 [...] 200 tablet 3 11/04/2022 Active OXYGEN-HELIUM IN (8 sources) Start: 01-21-2022 OXYGEN-HELIUM IN inhaled nasal continuous use 01/21/2022 Active Start: 01-21-2022 OXYGEN-HELIUM IN inhaled nasal continuous use 0 01/21/2022 Active rosuvastatin calcium 5 mg oral tablet (7 sources) HMG-CoA Reductase Inhibitor Start: 11-28-2023 take 1 tablet by mouth once daily rosuvastatin (Crestor) 5 MG tablet Indications: Hypokalemia Take 1 tablet (5 mg) by mouth Daily 90 tablet 1 11/28/2023 Active traMADol hydrochloride 50 mg oral tablet (3 sources) Opioid Agonist Start: 03-25-2024 traMADol (Ultr am) 50 MG tablet 03/25/2024 Active traZODone hydrochloride 100 mg oral tablet (8 sources) Serotonin Reuptake Inhibitor Start: 02-21-2024 take [...] Active triamcinolone acetonide 5 mg/ml topical cream (8 sources) Corticosteroid Start: 05-18-2023 triamcinolone (Kenalog) 0.5 % cream Indications: Venous insufficiency (chronic) (peripheral) APPLY 1 APPLICATION EXTERNALLY ONCE A DAY NEEDED 7 DAY(S) 30 g 2 05/18/2023 Active Completed/Discontinued Medications Medication Drug Class(es) Dates Sig (Normalized) Sig (Original) hydrocortisone 10 mg/ml / neomycin 3.5 mg/ml / polymyxin b [id number] unt/ml otic suspension (6 sources) Aminoglycoside Antibacterial, Polymyxin-class Antibacterial, Corticosteroid Start: 4 End: 4 [id number] drocortisone (Cortisporin) 3.5-17882-3 otic suspension Indications: Acute otitis externa of both ears, unspecified type USE 3 DROPS IN EACH AFFECTED EAR IN THE MORNING, AT NOON, IN THE EVENING, AND BEFORE BEDTIME FOR 7 DAYS 10 mL 01/12/2024 03/27/2024 Discontinued (Other) methylPREDNISolone (3 sources) Corticosteroid Start: 4 End: 4 methylPREDNISolone (Medrol Dospak) 4 MG tablets Indications: Chronic obstructive pulmonary disease, unspecified COPD type (CMS/HCC) Follow schedule on package instructions 21 tablet 02/21/2024 03/14/2024 Discontinued Start: 02-21-2024 methylPREDNISo lone (Medrol Dospak) 4 MG tablets Indications: Chronic obstructive pulmonary disease, unspecified COPD type (CMS/HCC) Follow schedule on package instructions 02/21/2024 Active Problems Active Problems Problem Classification Problem Date Documented Date Episodic/Chronic Anxiety disorders (10 sources) Anxiety disorder; Translations: [Anxiety disorder, unspecified] Onset: 06-08-2022 01-03-2023 Chronic Aortic; peripheral; and visceral artery aneurysms (16 sources) Dissection of abdominal aorta; Translations: [Dissection of aorta] Onset: 06-15-2022 01-02-2023 Chronic Asthma (17 sources) Unspecified asthma, uncomplicated; Translations: [Severe persistent asthma] Onset: 06-15-2022 Resolved: 03-22-2023 01-02-2023 Chronic Asthma (1 source) Asthma; Translations: [EOSINOPHILIC ASTHMA] Onset: 06-15-2022 Cataract (15 sources) Artificial lens present; Translations: [Presence of intraocular lens] Onset: 11-28-2023 Resolved: 01-05-2024 01-05-2024 Chronic Chronic obstructive pulmonary disease and bronchiectasis (8 sources) Chronic obstructive lung disease; Translations: [Chronic obstructive pulmonary disease, unspecified] Onset: 01-02-2023 01-02-2023 Chronic Coronary atherosclerosis and other heart disease (9 sources) Atherosclerotic heart disease of [place] coronary artery without angina pectoris; Translations: [Coronary atherosclerosis] Onset: 06-15-2022 01-02-2023 Chronic Diabetes mellitus with complications (20 sources) Autonomic neuropathy due to type 2 [...] fall, initial encounter] Onset: 06-15-2022 Episodic Endometriosis (7 sources) Endometriosis (clinical); Translations: [Endometriosis, unspecified] Onset: 09-05-2023 09-05-2023 Chronic Essential hypertension (9 sources) Essential (primary) hypertension; Translations: [Essential hypertension] Onset: 06-15-2022 01-02-2023 Chronic Headache; including migraine (8 sources) Migraine; Translations: [Migraine without aura, not intractable, without status migrainosus] Onset: 01-02-2023 01-02-2023 Chronic Hepatitis (8 sources) Nonalcoholic steatohepatitis; Translations: [Nonalcoholic steatohepatitis (IVAN)] Onset: 01-02-2023 01-02-2023 Chronic Joint disorders and dislocations; trauma-related (12 sources) Unspecified internal derangement of left knee; Translations: [Chondromalacia of left patella] Onset: 05-10-2022 Chronic Menopausal disorders (1 source) Hormone replacement therapy; Translations: [HORMONE REPLACEMENT THERAPY] Onset: 06-15-2022 Episodic Mood disorders (20 sources) Bipolar disorder, unspecified; Translations: [Bipolar affective disorder, currently depressed, moderate] Onset: 06-15-2022 Resolved: 03-22-2023 01-02-2023 Chronic Osteoarthritis (20 sources) Bilateral primary osteoarthritis of hip; Translations: [Unspecified osteoarthritis, unspecified site] Onset: 06-15-2022 Resolved: 03-22-2023 01-02-2023 Chronic Osteoporosis (1 source) Age-related osteoporosis without current pathological fracture; Translations: [AGE-REL OSTEOPOR W/O CURR PATH FX] Onset: 06-15-2022 Chronic Other aftercare (1 source) 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; Translations: [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 USE OF INSULIN] Onset: 06-15-2022 Episodic Other aftercare (1 source) Other skilled nursing (current) drug therapy; Translations: [OTH 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 DRUG THERAPY] Onset: 06-15-2022 Episodic Other [...] Chronic Other nutritional; endocrine; and metabolic disorders (8 sources) Extreme obesity with alveolar hypoventilation; Translations: [Morbid (severe) obesity with alveolar hypoventilation] Onset: 01-02-2023 01-02-2023 Chronic Other nutritional; endocrine; and metabolic disorders (7 sources) Obesity caused by energy imbalance; Translations: [Morbid (severe) obesity due to excess calories] Onset: 12-06-2023 12-06-2023 Chronic Other nutritional; endocrine; and metabolic disorders (7 sources) Body mass index 40+ - severely obese; Translations: [Body mass index (BMI) 50.0-59.9, adult] Onset: 12-06-2023 12-06-2023 Chronic Other screening for suspected conditions (not mental disorders or infectious disease) (8 sources) Computed tomography result abnormal; Translations: [Abnormal findings on diagnostic imaging of other specified body structures] Onset: 01-02-2023 01-02-2023 Chronic Other upper respiratory disease (8 sources) Allergic rhinitis; Translations: [Allergic rhinitis, unspecified] Onset: 01-02-2023 01-02-2023 Chronic Other upper respiratory infections (14 sources) Chronic sinusitis, unspecified; Translations: [Chronic sinusitis] Onset: 11-22-2021 Chronic Residual codes; unclassified (8 sources) Obstructive sleep apnea syndrome; Translations: [Obstructive sleep apnea (adult) (pediatric)] Onset: 01-02-2023 01-02-2023 Chronic Residual codes; unclassified (4 sources) Altered mental status, unspecified; Translations: [ALTERED MENTAL STATUS UNSPECIFIED] Onset: 06-06-2022 Episodic Residual codes; unclassified (1 source) Acquired absence of other specified parts of digestive tract; Translations: [ACQ ABSENCE OTH PART DIGESTV TRACT] Onset: 06-15-2022 Episodic Respiratory failure; insufficiency; arrest (adult) (20 sources) Acute and chronic respiratory failure with hypoxia; Translations: [Dependence on supplemental oxygen] Onset: 06-15-2022 Resolved: 03-22-2023 01-02-2023 Chronic Rheumatoid arthritis and related disease (9 sources) Rheumatoid arthritis, unspecified; Translations: [Rheumatoid arthritis] Onset: 06-15-2022 01-02-2023 Chronic Spondylosis; intervertebral disc disorders; other back problems (15 sources) Spondylosis without myelopathy or radiculopathy, lumbar region; Translations: [Spondylosis without myelopathy or radiculopathy, lumbosacral region] Onset: 01-05-2022 Chronic Superficial injury; contusion (1 source) Contusion of lower back and pelvis, initial encounter; Translations: [CONTUSION LOWER BACK PELVIS INITIAL] Onset: 06-15-2022 Episodic Thyroid disorders (9 sources) Hypothyroidism, unspecified; Translations: [Hypothyroidism] Onset: 06-15-2022 11-23-2022 Chronic Unclassified (3 sources) LOW BACK PAIN, UNSPECIFIED; Translations: [LOW BACK PAIN, UNSPECIFIED] Onset: 07-31-2022 Unclassified (1 source) CONTACT W/AND (SUSP) EXPOS COVID-19; Translations: [CONTACT W/AND (SUSP) EXPOS COVID-19] Onset: 06-15-2022 Unclassified (7 sources) Patient on antidepressant monitoring plan Onset: 10-31-2023 10-31-2023 Past or Other Problems Problem Classification Problem Date Documented Da te Episodic/Chronic Abdominal hernia (9 sources) Diaphragmatic hernia without obstruction or gangrene; Translations: [Diaphragmatic hernia] Onset: 06-08-2022 01-03-2023 Episodic Abdominal pain (8 sources) Indigestion; Translations: [Epigastric pain] Onset: 01-02-2023 01-02-2023 Episodic Administrative/social admission (10 sources) Finding of activity of daily living; Translations: [Limitation of activities due to disability] Onset: 06-08-2022 01-03-2023 Episodic Fluid and electrolyte disorders (8 sources) Hypokalemia; Translations: [Hypokalemia] Onset: 01-04-2023 01-04-2023 Episodic Mood disorders (8 sources) Mood disorders Onset: 03-22-2023 Resolved: 12-06-2023 03-22-2023 Noninfectious gastroenteritis (10 sources) Chronic diarrhea; Translations: [Noninfective gastroenteritis and colitis, unspecified] Onset: 01-02-2023 01-02-2023 Episodic Other and unspecified benign neoplasm (8 sources) Adenomatous polyp of colon ; Translations: [Benign neoplasm of colon, unspecified] Onset: 01-02-2023 01-02-2023 Episodic Other connective tissue disease (8 sources) Fibromyalgia; Translations: [Fibromyalgia] Onset: 01-02-2023 01-02-2023 Episodic Other connective tissue disease (8 sources) Muscle pain; Translations: [Myalgia, unspecified site] Onset: 01-02-2023 01-02-2023 Episodic Other connective tissue disease (8 sources) Muscle weakness; Translations: [Muscle weakness (generalized)] Onset: 06-08-2022 01-03-2023 Episodic Other diseases of veins and lymphatics (1 source) Stasis dermatitis; Translations: [Venous insufficiency (chronic) (peripheral)] Onset: 01-02-2023 01-02-2023 Episodic Other diseases of veins and lymphatics (7 sources) Disorder of vein of lower extremity; Translations: [Venous insufficiency (chronic) (peripheral)] Onset: 01-02-2023 01-02-2023 Episodic Other gastrointestinal disorders (8 sources) Constipation; Translations: [Constipation, unspecified] Onset: 01-02-2023 01-02-2023 Episodic Other injuries and conditions due to external causes (10 sources) History of fall; Translations: [History of falling] Onset: 06-08-2022 01-03-2023 Episodic Other nervous system disorders (10 sources) Abnormal gait due to impairment of balance; Translations: [Other abnormalities of gait and mobility] Onset: 06-08-2022 01-04-2023 Episodic Other upper respiratory disease (8 sources) Hoarse; Translations: [Dysphonia] Onset: 01-02-2023 01-02-2023 Episodic Other upper respiratory disease (8 sources) Nasal obstruction; Translations: [Other specified disorders of nose and nasal sinuses] Onset: 01-02-2023 01-02-2023 Episodic Residual codes; unclassified (8 sources) Altered mental status; Translations: [Altered mental status, unspecified] Onset: 01-02-2023 Resolved: 12-06-2023 01-02-2023 Episodic Screening and history of mental health and substance abuse codes (8 sources) H/O: psychiatric disorder; Translations: [Personal history of other mental and behavioral disorders] Onset: 12-03-2019 01-03-2023 Episodic Spondylosis; intervertebral disc disorders; other back problems (20 sources) Radiculopathy, lumbar region; Translations: [Spinal stenosis, lumbar region without neurogenic claudication] Onset: 01-04-2022 Episodic Unclassified (1 source) LOW BACK PAIN, UNSPECIFIED; Translations: [LOW BACK PAIN, UNSPECIFIED] Onset: 07-26-2022 Results Test Name Value Interpretation Reference Range Facility Laboratory - Hematology and Cell countson 03-27-2024 HbA1c (Bld) [Mass fraction] 7.5 % [facility] No Panel Informationon 03-27 Interpretation and review of laboratory results Abnormal [facility] BI MAMMOGRAM SCREENING TOMOS YNTHESIS BILATERALon 05-17-2023 [...] IS VERY IMPORTANT TO YOUR HEALTH. THE [employer] GUIDELINES RECOMMEND THAT WOMEN 40 [...] [Mass/Vol] 238 mg/dL Critically high 74-106 [facility] Comment on above: Performed By: #### P OCGLUC #### [facility] [address] [address] [address] Cammy Cleaning XR HIPS SOPHY [id number] [...] sacroiliac joint osteoarthritis. Normal [facility] MRI LSPINE WO CONon 07-11-19 MRI LSPINE WO CON EXAMINATION: MRI LSPINE WO CON HISTORY: Lumbar radiculopathy COMPARISON: No [...] Date: 2022-07-11 16:37 Normal [facility] CBC AUTO DIFFon 06-08-2022 BASO # 0.1 103/ul Normal 0.0-0.1 [facility] Comment on above: Performed By: #### C BC #### [facility] [address] [place] [address] Dr. Cammy Cleaning Basophils/100 WBC (Bld) 0.8 % Normal 0.2-2.[address] [facility] Comment on above: Performed By: #### C BC #### [facility] [address] [address] [address] Cammy Cleaning EO # 0.5 103/ul Normal 0.0-0.7 [facility] Comment on above: Performed By: #### C BC #### [facility] [address] [place] [address] Dr. Cammy Cleaning Eosinophils/100 WBC (Bld) 5.2 % Normal 0.9-7.0 [facility] Comment on above: Performed By: #### C BC #### [facility] [address] [place] [address] Dr. Cammy Cleaning Erythrocyte distribution width (RBC) [Ratio] 14.8 % Normal 11.0-15.0 [facility] Comment on above: Performed By: #### C BC #### [facility] [address] [place] [address] Dr. Cammy Cleaning Hematocrit (Bld) [Volume fraction] 50.0 % Critically high 36.0-48.0 [facility] Comment on above: Performed By: #### C BC #### [facility] [address] [place] [address] Dr. Cammy Cleaning Hemoglobin (Bld) [Mass/Vol] 15.2 g/dL Normal 12.0-16.0 [facility] Comment on above: Performed By: #### C BC #### [facility] [address] [place] [address] Dr. Cammy Cleaning IG # 0.19 10e3/ul Critically high 0.00-0.03 [facility] Comment on above: Performed By: #### C BC #### [facility] [address] [place] [address] Dr. Cammy Cleaning IG % 1.8 % Critically high 0.0-0.5 [facility] Comment on above: Performed By: #### C BC #### [facility] [address] [place] [address] Dr. Cammy Cleaning LYMPH # 2.1 103/ul Normal 1.2-3.[address] [facility] Comment on above: Performed By: #### C BC #### [facility] [address] [place] [address] Dr. Cammy Cleaning Lymphocytes/100 WBC (Bld) 19.6 % Critically low 20.5-60.0 [facility] [facility] [place] Comment on above: Performed By: #### C BC #### [facility] [address] [place] [address] Dr. Cammy Cleaning MANUAL DIFF REQ NO Normal [facility] Comment on above: Performed By: #### C BC #### [facility] [address] [address] [address] Cammy Cleaning MCH (RBC) [Entitic mass] 27.6 pg Normal 26.7-34.0 [facility] [place] Comment on above: Performed By: #### C BC #### [facility] [address] [address] [address] Cammy Cleaning MCHC (RBC) [Mass/Vol] 30.4 g/dL Normal 29.9-35.2 [facility] [place] Comment on above: Performed By: #### C BC #### [facility] [address] [place] [address] Dr. Cammy Cleaning MCV (RBC) [Entitic vol] 90.7 fL Normal 81.0-99.0 [facility] [place] Comment on above: Performed By: #### C BC #### [facility] [address] [place] [address] Dr. Cammy Cleaning MONO # 0.7 103/ul Normal 0.3-0.8 [facility] [place] Comment on above: Performed By: #### C BC #### [facility] [address] [place] [address] Dr. Cammy Cleaning Monocytes/100 WBC (Bld) 7.0 % Normal 1.7-12.0 [facility] [place] Comment on above: Performed By: #### C BC #### [facility] [address] [place] [address] Dr. Cammy Cleaning NEUT # 6.9 103/ul Critically high 1.4-6.5 [facility] Comment on above: Performed By: #### C BC #### [facility] [address] [place] [address] Dr. Cammy Cleaning Neutrophils/100 WBC (Bld) 65.6 % Normal 43.0-75.[address] [facility] Comment on above: Performed By: #### C BC #### [facility] [address] [place] [address] Dr. Cammy Cleaning Platelet mean volume (Bld) [Entitic vol] 8.7 fL Critically low 9.5-13.5 [facility] [place] Comment on above: Performed By: #### C BC #### [facility] [address] [address] [address] Cammy Cleaning PLT 166 103/ul Normal 150-450 [facility] [place] Comment on above: Performed By: #### C BC #### [facility] [address] [address] [address] Cammy Cleaning RBC 5.51 106/ul Critically high 4.20-5.40 [facility] Comment on above: Performed By: #### C BC #### [facility] [address] [address] [address] Cammy Cleaning WBC 10.5 103/ul Normal 4.0-11.0 [facility] [place] Comment on above: Performed By: #### C BC #### [facility] [address] [address] [address] Cammy Cleaning POINT OF CARE GLUCOSEon 05-29 Glucose [Mass/Vol] 134 mg/dL Critically high 74-106 [facility] Comment on above: Performed By: #### P OCGLUC #### [facility] [address] [address] [address] Cammy Cleaning PROF 14(COMP METB)on 023 Albumin [Mass/Vol] 3.0 g/dL Critically low 3.4-5.0 [facility] Comment on above: Performed By: #### C MP ####[facility] [address] [id number]. Cammy Cleaning Albumin/Globulin [Mass ratio] 0.8 {ratio} Normal [facility] [place] Comment on above: Performed By: #### C MP ####[facility] [address] [id number]. Cammy Cleaning ALP [Catalytic activity/Vol] 85 U/L Normal 46-116 [facility] [place] Comment on above: Performed By: #### C MP ####[facility] [address] [id number]. Cammy Cleaning ALT [Catalytic activity/Vol] 19 U/L Normal 14-59 [facility] [place] Comment on above: Performed By: #### C MP ####[facility] [address] [id number]. Cammy Cleaning Anion gap [Moles/Vol] 6.9 mmol/L Normal [facility] [place] Comment on above: Performed By: #### C MP ####[facility] [address] [id number]. Cammy Cleaning AST [Catalytic activity/Vol] 18 U/L Normal 15-37 [facility] [place] Comment on above: Performed By: #### C MP ####[facility] [address] [id number]. Cammy Black Bilirubin [Mass/Vol] 0.6 mg/dL Normal 0.2-1.0 [facility] [place] Comment on above: Performed By: #### C MP ####[facility] [address] [address]Dr. Monicaterri Black Calcium [Mass/Vol] 9.4 mg/dL Normal 8.5-10.1 [facility] Comment on above: Performed By: #### C MP ####[facility] [address] [id number]. Cammy Black Chloride [Moles/Vol] 99 mmol/L Normal 98-107 [facility] [place] Comment on above: Performed By: #### C MP ####[facility] [address] [id number]. Cammy Black CO2 [Moles/Vol] 37.8 mmol/L Critically high 21.0-32.[address] [facility] Comment on above: Performed By: #### C MP ####[facility] [address] [id number]. Cammy Black Creatinine [Mass/Vol] 0.85 mg/dL Normal 0.55-1.02 [facility] [place] Comment on above: Performed By: #### C MP ####[facility] [address] [id number]. Cammy Black EGFR-AF ANGUILLAN >60 Normal >=60 [facility] Comment on above: Performed By: #### C MP ####[facility] [address] [id number]. Cammy Cleaning EGFR-NON AF ANGUILLAN >60 Normal >=60 [facility] [place] Comment on above: Performed By: #### C MP ####[facility] [address] [phone]. Cammy Cleaning Globulin (S) [Mass/Vol] 3.6 g/dL Normal [facility] [place] Comment on above: Performed By: #### C MP ####[facility] [address] [address]Dr. Cammy Cleaning Glucose [Mass/Vol] 139 mg/dL Critically high 74-106 [facility] Comment on above: Performed By: #### C MP ####[facility] [address] [address]Dr. Cammy Cleaning Potassium [Moles/Vol] 3.7 mmol/L Normal 3.5-5.1 [facility] [place] Comment on above: Performed By: #### C MP ####[facility] [address] [place], [place] [address]Dr. Cammy Cleaning Protein [Mass/Vol] 6.6 g/dL Normal 6.4-8.2 [facility] Comment on above: Performed By: #### C MP ####[facility] [address] [place], [place] [address]Dr. Cammy Cleaning Sodium [Moles/Vol] 140 mmol/L Normal 136-145 [facility] Comment on above: Performed By: #### C MP ####[facility] [address] [address]Dr. Cammy Cleaning Urea nitrogen [Mass/Vol] 14.0 mg/dL Normal 7.0-18.[address] [facility] Comment on above: Performed By: #### C MP ####[facility] [address] [address]Dr. Cammy Cleaning Urea nitrogen/Creatinine [Mass ratio] 16.5 mg/mg Normal [facility] [place] Comment on above: Performed By: #### C MP ####[facility] [address] [place], [place] [address]Dr. Cammy Cleaning BNPon 06-07-2022 Natriuretic peptide B (Bld) [Mass/Vol] 117.0 pg/mL Normal <=900.0 [facility] [place] Comment on above: Performed By: #### C BC #### [facility] [address] [address] [address] Cammy Cleaning CBC AUTO DIFFon 06-07-2022 BASO # 0.1 103/ul Normal 0.0-0.1 [facility] [place] Comment on above: Performed By: #### C BC #### [facility] [address] [address] [address] Cammy Cleaning Basophils/100 WBC (Bld) 0.6 % Normal 0.2-2.0 [facility] [place] Comment on above: Performed By: #### C BC #### [facility] [address] [place] [address] Dr. Cammy Cleainng EO # 0.6 103/ul Normal 0.0-0.7 [facility] [place] Comment on above: Performed By: #### C BC #### [facility] [address] [place] [address] Dr. Cammy Cleaning Eosinophils/100 WBC (Bld) 5.8 % Normal 0.9-7.0 [facility] [place] Comment on above: Performed By: #### C BC #### [facility] [address] [place] [address] Dr. Cammy Cleaning Erythrocyte distribution width (RBC) [Ratio] 14.6 % Normal 11.0-15.[address] [facility] Comment on above: Performed By: #### C BC #### [facility] [address] [place] [address] Dr. Cammy Cleaning Hematocrit (Bld) [Volume fraction] 45.8 % Normal 36.0-48.0 [facility] [place] Comment on above: Performed By: #### C BC #### [facility] [address] [place] [address] Dr. Cammy Cleaning Hemoglobin (Bld) [Mass/Vol] 14.4 g/dL Normal 12.0-16.0 [facility] [place] Comment on above: Performed By: #### C BC #### [facility] [address] [place] [address] Dr. Cammy Cleaning IG # 0.18 10e3/ul Critically high 0.00-0.03 [facility] Comment on above: Performed By: #### C BC #### [facility] [address] [place] [address] Dr. Cammy Cleaning IG % 1.7 % Critically high 0.0-0.5 [facility] Comment on above: Performed By: #### C BC #### [facility] [address] [place] [address] Dr. Cammy Cleaning LYMPH # 1.8 103/ul Normal 1.2-3.8 [facility] [place] Comment on above: Performed By: #### C BC #### [facility] [address] [place] [address] Dr. Cammy Cleaning Lymphocytes/100 WBC (Bld) 16.1 % Critically low 20.5-60.0 [facility] [place] Comment on above: Performed By: #### C BC #### [facility] [address] [place] [address] Dr. Cammy Cleaning MANUAL DIFF REQ NO Normal [facility] Comment on above: Performed By: #### C BC #### [facility] [address] [place] [address] Dr. Cammy Cleaning MCH (RBC) [Entitic mass] 27.7 pg Normal 26.7-34.0 [facility] [place] Comment on above: Performed By: #### C BC #### [facility] [address] [place] [address] Dr. Cammy Cleaning MCHC (RBC) [Mass/Vol] 31.4 g/dL Normal 29.9-35.2 [facility] [place] Comment on above: Performed By: #### C BC #### [facility] [address] [place] [address] Dr. Cammy Cleaning MCV (RBC) [Entitic vol] 88.1 fL Normal 81.0-99.0 [facility] [place] Comment on above: Performed By: #### C BC #### [facility] [address] [address] [address] Cammy Cleaning MONO # 0.9 103/ul Critically high 0.3-0.8 [facility] Comment on above: Performed By: #### C BC #### [facility] [address] [address] [address] Cammy Cleaning Monocytes/100 WBC (Bld) 8.2 % Normal 1.7-12.0 [facility] [place] Comment on above: Performed By: #### C BC #### [facility] [address] [address] [address] Cammy Cleaning NEUT # 7.3 103/ul Critically high 1.4-6.5 [facility] Comment on above: Performed By: #### C BC #### [facility] [address] [place] [address] Dr. Cammy Cleaning Neutrophils/100 WBC (Bld) 67.6 % Normal 43.0-75.0 [facility] [place] Comment on above: Performed By: #### C BC #### [facility] [address] [address] [address] Cammy Cleaning Platelet mean volume (Bld) [Entitic vol] 8.8 fL Critically low 9.5-13.5 [facility] [place] Comment on above: Performed By: #### C BC #### [facility] [address] [place] [address] Dr. Cammy Cleaning PLT 169 103/ul Normal 150-[address] [facility] Comment on above: Performed By: #### C BC #### [facility] [address] [address] [address] Cammy Cleaning RBC 5.20 106/ul Normal 4.20-5.[address] [facility] Comment on above: Performed By: #### C BC #### [facility] [address] [address] [address] Cammy Cleaning WBC 10.9 103/ul Normal 4.0-11.[address] [facility] Comment on above: Performed By: #### C BC #### [facility] [address] [address] [address] Cammy Cleaning ECHOCARDIO M/2D COMPLETEon 0 06-07-2022 ECHOCARDIO M/2D COMPLETE Patient: SANNA CORRALES Exam Date: 06/07/2022 : 1960 Gender:F Ordering : DR. WILLEM HIDALGO . Admission #: [id number] Family : OMID MARTINS . Order #: [id number] CLICK HERE TO VIEW EXAM ECHOCARDIOGRAM REPORT [...] M.D. on 06/09/2022 at 10:48 Normal [address] [facility] FREE T4on 06-07-2022 Free T4 [Mass/Vol] 1.21 ng/dL Normal 0.76-1.46 [facility] Comment on above: Performed By: #### C BC #### [facility] [address] [place] [address] Dr. Cammy Cleaning GLYCOHEMOGLOBIN A1Con 2022 ADA RECOMMENDATION SEE BELOW Normal [facility] Comment on above: Result Comment: ADA RECOMMENDED LIMIT 4.0 - 6.0 ADA THERAPEUTIC TARGET < 7.0 ACTION SUGGESTED > 7.0 Performed By: #### P OCGLUC #### [facility] [address] [address] [address] Cammy Cleaning Glucose [Mass/Vol] 171 mg/dL Normal [facility] Comment on above: Performed By: #### P OCGLUC #### [facility] [address] [address] [address] Cammy Cleaning HbA1c (Bld) [Mass fraction] 7.6 % Critically high 4.5-6.2 [facility] [place] Comment on above: Performed By: #### P OCGLUC #### [facility] [address] [place] [address] Dr. Cammy Cleaning POINT OF CARE GLUCOSEon 05-29 Glucose [Mass/Vol] 141 mg/dL Critically high 74-106 [facility] Comment on above: Performed By: #### C BC #### [facility] [address] [address] [address] Cammy Cleaning Glucose [Mass/Vol] 161 mg/dL Critically high 74-106 [facility] Comment on above: Performed By: #### P OCGLUC ####[facility] [address] [address]Dr. Cammy Cleaning Glucose [Mass/Vol] 148 mg/dL Critically high 74-106 [facility] Comment on above: Performed By: #### P OCGLUC ####[facility] [address] [address]Dr. Cammy Cleaning PROF 14(COMP METB)on 023 Albumin [Mass/Vol] 2.7 g/dL Critically low 3.4-5.0 [facility] Comment on above: Performed By: #### C MP #### [facility] [address] [place] [address] Dr. Cammy Cleaning Albumin/Globulin [Mass ratio] 0.8 {ratio} Normal [facility] [place] Comment on above: Performed By: #### C MP #### [facility] [address] [place] [address] Dr. Cammy Cleaning ALP [Catalytic activity/Vol] 85 U/L Normal 46-116 [facility] [place] Comment on above: Performed By: #### C MP #### [facility] [address] [address] [address] Cammy Cleaning ALT [Catalytic activity/Vol] 15 U/L Normal 14-59 [facility] [place] Comment on above: Performed By: #### C MP #### [facility] [address] [address] [address] Cammy Cleaning Anion gap [Moles/Vol] 8.3 mmol/L Normal [facility] [place] Comment on above: Performed By: #### C MP #### [facility] [address] [address] [address] Cammy Cleaning AST [Catalytic activity/Vol] 17 U/L Normal 15-37 [facility] [place] Comment on above: Performed By: #### C MP #### [facility] [address] [address] [address] Cammy Cleaning Bilirubin [Mass/Vol] 0.6 mg/dL Normal 0.2-1.0 [facility] [place] Comment on above: Performed By: #### C MP #### [facility] [address] [address] [address] Cammy Cleaning Calcium [Mass/Vol] 8.9 mg/dL Normal 8.5-10.1 [facility] Comment on above: Performed By: #### C MP #### [facility] [address] [address] [address] Cammy Cleaning Chloride [Moles/Vol] 102 mmol/L Normal 98-[address] [facility] Comment on above: Performed By: #### C MP #### [facility] [address] [address] [address] Cammy Cleaning CO2 [Moles/Vol] 34.6 mmol/L Critically high 21.0-32.0 [facility] [place] Comment on above: Performed By: #### C MP #### [facility] [address] [address] [address] Cammy Cleaning Creatinine [Mass/Vol] 0.80 mg/dL Normal 0.55-1.02 [facility] [place] Comment on above: Performed By: #### C MP #### [facility] [address] [address] [address] Cammy Cleaning EGFR-AF ANGUILLAN >60 Normal >=60 [facility] Comment on above: Performed By: #### C MP #### [facility] [address] [address] [address] Cammy Cleaning EGFR-NON AF ANGUILLAN >60 Normal >=60 [facility] [place] Comment on above: Performed By: #### C MP #### [facility] [address] [address] [address] Cammy Cleaning Globulin (S) [Mass/Vol] 3.2 g/dL Normal [facility] [place] Comment on above: Performed By: #### C MP #### [facility] [address] [place] [address] Dr. Cammy Cleaning Glucose [Mass/Vol] 128 mg/dL Critically high 74-106 [facility] Comment on above: Performed By: #### C MP #### [facility] [address] [address] [address] Cammy Cleaning Potassium [Moles/Vol] 3.9 mmol/L Normal 3.5-5.1 [facility] [place] Comment on above: Performed By: #### C MP #### [facility] [address] [address] [address] Cammy Cleaning Protein [Mass/Vol] 5.9 g/dL Critically low 6.4-8.2 [facility] Comment on above: Performed By: #### C MP #### [facility] [address] [address] [address] Cammy Cleaning Sodium [Moles/Vol] 141 mmol/L Normal 136-145 [facility] Comment on above: Performed By: #### C MP #### [facility] [address] [address] [address] Cammy Cleaning Urea nitrogen [Mass/Vol] 11.0 mg/dL Normal 7.0-18.0 [facility] [place] Comment on above: Performed By: #### C MP #### [facility] [address] [address] [address] Cammy Cleaning Urea nitrogen/Creatinine [Mass ratio] 13.8 mg/mg Normal [facility] [place] Comment on above: Performed By: #### C MP #### [facility] [address] [address] [address] Cammy Cleaning TSHon 06-07-2022 TSH 2.839 uIU/mL Normal 0.358-3.740 [facility] Comment on above: Performed By: #### T SH ####[facility] [address] [address]Dr. Cammy Cleaning ACETAMINOPHENon 06-06-2022 Acetaminophen [Mass/Vol] ug/mL Normal 10.0-30.0 [facility] [place] Comment on above: Performed By: #### A CET, SALYC, ETH ####[facility] [address] [place], [place] [address]Dr. Cammy Cleaning BLOOD GASES BTYon 06-06-2022 02 MODE NASAL CANNULA Normal [facility] Comment on above: Performed By: #### A BG ####[facility] [address] [place], [place] [address]Dr. Cammy Cleaning ALLENS TEST Positive Normal [facility] [place] Comment on above: Performed By: #### A BG ####[facility] [address] [place], [place] [address]Dr. Cammy Cleaning Base excess Calc (Bld) [Moles/Vol] 9.4 mmol/L Critically high -2.0-2.0 [facility] [place] Comment on above: Performed By: #### A BG ####[facility] [address] [place], [place] [address]Dr. Cammy Cleaning BIPAP PRESSURE Normal [facility] Comment on above: Performed By: #### A BG ####[facility] [address] [place], [place] [address]Dr. Cammy Cleaning CPAP Normal [facility] [place] Comment on above: Performed By: #### A BG ####[facility] [address] [address]Dr. Monicaterri Cleaning FIO2 Normal [facility] [place] Comment on above: Performed By: #### A BG ####[facility] [address] [place], [place] [address]Dr. Cammy Cleaning HCO3 (Bld) [Moles/Vol] 35.1 mmol/L Critically high 22.0-26.0 [facility] [place] Comment on above: Performed By: #### A BG ####[facility] [address] [place], [place] [address]Dr. Cammy Cleaning LPM 2 Normal [facility] [place] Comment on above: Performed By: #### A BG ####[facility] [address] [place], [place] [address]Dr. Cammy Cleaning MINUTE VOLUME Normal [facility] Comment on above: Performed By: #### A BG ####[facility] [address] [place], [place] [address]Dr. Cammy Cleaning Oxygen (Bld) [Partial pressure] 59.8 mm[Hg] Critically low 80.0-100.0 [facility] [place] Comment on above: Performed By: #### A BG ####[facility] [address] [place], [place] [address]Dr. Cammy Cleaning Oxygen saturation in Blood 92.4 % Critically low 95.0-100.0 [facility] Comment on above: Performed By: #### A BG ####[facility] [address] [place], [place] [address]Dr. Cammy Celaning PCO2 63.7 mmHg Critically high 35.0-45.0 [facility] Comment on above: Performed By: #### A BG ####[facility] [address] [place], [place] [address]Dr. Cammy Cleaning PEEP Normal [facility] Comment on above: Performed By: #### A BG ####[facility] [address] [place], [place] [address]Dr. Cammy Cleaning pH (Bld) 7.349 [pH] Critically low 7.350-7.450 [facility] Comment on above: Performed By: #### A BG ####[facility] [address] [address]Dr. Cammy Cleaning PIP Normal [facility] Comment on above: Performed By: #### A BG ####[facility] [address] [address]Dr. Cammy Cleaning PS Normal [facility] Comment on above: Performed By: #### A BG ####[facility] [address] [address]Dr. Cammy Cleaning PUNCTURE SITE LB Normal [facility] Comment on above: Performed By: #### A BG ####[facility] [address] [address]Dr. Cammy Cleaning RATE [facility] Comment on above: Performed By: #### A BG ####[facility] [address] [address]Dr. Cammy Cleaning VENT MODE [facility] Comment on above: Performed By: #### A BG ####[facility] [address] [place], [place] [address]Dr. Cammy Cleaning [place] [facility] Comment on above: Performed By: #### A BG ####[facility] [address] [place], [place] [address]DrNoreen Cleaning BNPon 06-06-2022 Natriuretic peptide B (Bld) [Mass/Vol] 81.0 pg/mL Normal <=900.0 [facility] Comment on above: Performed By: #### C BC #### [facility] [address] [address] [address] Cammy Cleaning CARDIAC PILLO 3-6on 3 CK [Catalytic activity/Vol] 205 U/L Critically high 26-192 [facility] Comment on above: Performed By: #### C MREP #### [facility] [address] [address] [address] Cammy Cleaning CK.MB [Mass/Vol] 0.77 ng/mL Normal <=3.60 [facility] Comment on above: Performed By: #### C MREP #### [facility] [address] [place] [address] Dr. Cammy Cleaning HSTROP 7.5 pg/mL Normal 4.0-51.3 [facility] Comment on above: Result Comment: CUT- OFF POINTS HAVE BEEN ESTABLISHED BASED ON THE FOURTH UNIVERSAL DEFINITIONS OF MYOCARDIAL INFARCTION. THE UPPER REFERENCE LIMIT (URL) OF TROPONIN, DEFINED THE 99TH PERCENTILE OF cTnI DISTRIBUTION IN A REFERENCE POPULATION, HAS BEEN CONFIRMED THE DECISION THRESHOLD FOR DC DIAGNOSIS. Performed By: #### C MREP #### [facility] [address] [place] [address] Dr. Cammy Cleaning CK [Catalytic activity/Vol] 220 U/L Critically high 26-192 [facility] Comment on above: Performed By: #### C BC #### [facility] [address] [place] [address] Dr. Cammy Cleaning CK.MB [Mass/Vol] 0.86 ng/mL Normal <=3.60 [facility] Comment on above: Performed By: #### C BC #### [facility] [address] [place] [address] Dr. Cammy Cleaning HSTROP 8.7 pg/mL Normal 4.0-51.[address] [facility] Comment on above: Result Comment: CUT- OFF POINTS HAVE BEEN ESTABLISHED BASED ON THE FOURTH UNIVERSAL DEFINITIONS OF MYOCARDIAL INFARCTION. THE UPPER REFERENCE LIMIT (URL) OF TROPONIN, DEFINED THE 99TH PERCENTILE OF cTnI DISTRIBUTION IN A REFERENCE POPULATION, HAS BEEN CONFIRMED THE DECISION THRESHOLD FOR DC DIAGNOSIS. Performed By: #### C BC #### [facility] [address] [place] [address] Dr. Cammy Cleaning CBC AUTO DIFFon 06-06-2022 BASO # 0.1 103/ul Normal 0.0-0.1 [facility] Comment on above: Performed By: #### C BC #### [facility] [address] [place] [address] Dr. Cammy Cleaning Basophils/100 WBC (Bld) 0.7 % Normal 0.2-2.0 [facility] Comment on above: Performed By: #### C BC #### [facility] [address] [place] [address] Dr. Cammy Cleaning EO # 0.6 103/ul Normal 0.0-0.[address] [facility] Comment on above: Performed By: #### C BC #### [facility] [address] [place] [address] Dr. Cammy Cleaning Eosinophils/100 WBC (Bld) 5.4 % Normal 0.9-7.0 [facility] Comment on above: Performed By: #### C BC #### [facility] [address] [place] [address] Dr. Cammy Cleaning Erythrocyte distribution width (RBC) [Ratio] 14.6 % Normal 11.0-15.0 [facility] Comment on above: Performed By: #### C BC #### [facility] [address] [place] [address] Dr. Cammy Cleaning Hematocrit (Bld) [Volume fraction] 47.2 % Normal 36.0-48.0 [facility] Comment on above: Performed By: #### C BC #### [facility] [address] [place] [address] Dr. Cammy Cleaning Hemoglobin (Bld) [Mass/Vol] 15.4 g/dL Normal 12.0-16.0 [facility] [place] Comment on above: Performed By: #### C BC #### [facility] [address] [place] [address] Dr. Cammy Cleaning IG # 0.19 10e3/ul Critically high 0.00-0.03 [facility] Comment on above: Performed By: #### C BC #### [facility] [address] [place] [address] Dr. Cammy Cleaning IG % 1.7 % Critically high 0.0-0.5 [facility] Comment on above: Performed By: #### C BC #### [facility] [address] [place] [address] Dr. Cammy Cleaning LYMPH # 1.8 103/ul Normal 1.2-3.[address] [facility] Comment on above: Performed By: #### C BC #### [facility] [address] [place] [address] Dr. Cammy Cleaning Lymphocytes/100 WBC (Bld) 16.0 % Critically low 20.5-60.0 [facility] Comment on above: Performed By: #### C BC #### [facility] [address] [place] [address] Dr. Cammy Cleaning MANUAL DIFF REQ NO Normal [facility] Comment on above: Performed By: #### C BC #### [facility] [address] [place] [address] Dr. Cammy Cleaning MCH (RBC) [Entitic mass] 27.7 pg Normal 26.7-34.0 [facility] Comment on above: Performed By: #### C BC #### [facility] [address] [place] [address] Dr. Cammy Cleaning MCHC (RBC) [Mass/Vol] 32.6 g/dL Normal 29.9-35.2 [facility] Comment on above: Performed By: #### C BC #### [facility] [address] [place] [address] Dr. Cammy Cleaning MCV (RBC) [Entitic vol] 85.0 fL Normal 81.0-99.0 [facility] Comment on above: Performed By: #### C BC #### [facility] [address] [place] [address] Dr. Cammy Cleaning MONO # 0.8 103/ul Normal 0.3-0.8 [facility] Comment on above: Performed By: #### C BC #### [facility] [address] [place] [address] Dr. Cammy Cleaning Monocytes/100 WBC (Bld) 6.8 % Normal 1.7-12.[address] [facility] Comment on above: Performed By: #### C BC #### [facility] [address] [place] [address] Dr. Cammy Cleaning NEUT # 7.8 103/ul Critically high 1.4-6.5 [facility] Comment on above: Performed By: #### C BC #### [facility] [address] [place] [address] Dr. Cammy Cleaning Neutrophils/100 WBC (Bld) 69.4 % Normal 43.0-75.0 [facility] Comment on above: Performed By: #### C BC #### [facility] [address] [place] [address] Dr. Cammy Cleaning Platelet mean volume (Bld) [Entitic vol] 9.0 fL Critically low 9.5-13.5 [facility] Comment on above: Performed By: #### C BC #### [facility] [address] [place] [address] Dr. Cammy Cleaning PLT 162 103/ul Normal 150-450 [facility] Comment on above: Performed By: #### C BC #### [facility] [address] [place] [address] Dr. Cammy Cleaning RBC 5.55 106/ul Critically high 4.20-5.40 [facility] Comment on above: Performed By: #### C BC #### [facility] [address] [place] [address] Dr. Cammy Cleaning WBC 11.3 103/ul Critically high 4.0-11.0 [facility] Comment on above: Performed By: #### C BC #### [facility] [address] [place] [address] ABD/PELV W CONon [...] by: Christo SARAVIA Date: 2022-06-06 02:29 Normal [facility] CT CSPINE WO CONon 3 CT CSPINE [...] Date: 2022-06-06 02:09 Normal [facility] CT HEAD WO CONon 06-06-2022 CT [...] Date: 2022-06-06 02:07 Normal [facility] CT LSPINE WO CONon CT LSPINE [...] Date: 2022-06-06 02:29 Normal [address] [facility] CTA ABD/PELVIS WO W CONon CTA [...] ANISH JACKSON Date: 2022-06-06 04:15 Normal [address] [facility] Covid-19 PCR (CVDTB)on SARS-CoV-2 (COVID-19) RNA JOSE L+probe Ql (Unsp spec) Not detected Normal NOT DETECTED [facility] Comment on above: Result Comment: When [...] for this test is supported by the [place] [employer] and Human Service's declaration that [...] By: #### C BC #### [facility] [address] [place] [address] Dr. Cammy Cleaning DRUG SCREEN RAPID (URINE)on 06-06-2022 AMP Negative Normal NEGATIVE [facility] Comment on above: Performed By: #### D RUGRPD, ERUR #### [facility] [address] [place] [address] Dr. Cammy Cleaning BAR Negative Normal NEGATIVE [facility] Comment on above: Performed By: #### D RUGRPD, ERUR #### [facility] [address] [place] [address] Dr. Cammy Cleaning BUP Negative Normal NEGATIVE [facility] Comment on above: Performed By: #### D RUGRPD, ERUR #### [facility] [address] [place] [address] Dr. Cammy Cleaning BZO Negative Normal NEGATIVE [facility] Comment on above: Performed By: #### D RUGRPD, ERUR #### [facility] [address] [place] [address] Dr. Cammy Cleaning JEM Negative Normal NEGATIVE [facility] Comment on above: Performed By: #### D BERNARDRPD, ERUR #### [facility] [address] [place] [address] Dr. Cammy Cleaning CUT-OFFS SEE BELOW Normal [facility] Comment on above: Result Comment: AMP (Amphetamine): 500ng/mL, BAR (Barbituates): 200 ng/mL, BZO (Benzodiazepines): 150 ng/mL, BUP (Buprenorphine): 10 ng/mL, JEM (Cocaine): 150 ng/mL, mAMP (Methamphetamine): 500 ng/mL, MTD (Methadone): 200 ng/mL, OPI (Opiates): 100 ng/mL, OXY (Oxycodone): 100 ng/mL, PCP (Phencyclidine): 25 ng/mL, PPX (Propoxyphene): 300 ng/mL, THC (Cannabinoids): 50 ng/mL, TCA (Trycyclic Antidepressants): 300 ng/mL Performed By: #### D FLOYD, ERUR #### [facility] [address] [place] [address] Dr. Cammy Cleaning DRUG CUT HEADER DRUG CLASS TEST SYSTEM CUT-OFF CONCENTRATIONS ARE FOLLOWS: Normal [facility] Comment on above: Performed By: #### D PATRICIAD, ERUR #### [facility] [address] [place] [address] Dr. Cammy Cleaning mAMP Negative Normal NEGATIVE [facility] Comment on above: Performed By: #### D FLOYD, ERUR #### [facility] [address] [place] [address] Dr. Cammy Cleaning MTD Negative Normal NEGATIVE [facility] Comment on above: Performed By: #### D FLOYD, ERUR #### [facility] [address] [place] [address] Dr. Cammy Cleaning OPI Positive Abnormal NEGATIVE [facility] Comment on above: Performed By: #### D FLOYD, ERUR #### [facility] [address] [place] [address] Dr. Cammy Cleaning OXY Negative Normal NEGATIVE [facility] Comment on above: Performed By: #### D FLOYD, ERUR #### [facility] [address] [place] [address] Dr. Cammy Cleaning PCP Negative Normal NEGATIVE [facility] Comment on above: Performed By: #### D FLOYD, ERUR #### [facility] [address] [place] [address] Dr. Cammy Cleaning PPX Negative Normal NEGATIVE [facility] Comment on above: Performed By: #### D FLOYD, ERUR #### [facility] [address] [place] [address] Dr. Cammy Cleaning TCA Negative Normal NEGATIVE [facility] Comment on above: Performed By: #### D FLOYD, ERUR #### [facility] [address] [place] [address] Dr. Cammy Cleaning THC Negative Normal NEGATIVE [facility] Comment on above: Performed By: #### D FLOYD, ERUR #### [facility] [address] [place] [address] Dr. Cammy Cleaning ER URINE PROFILEon 3 Bilirubin Ql (U) Negative Normal NEGATIVE [facility] Comment on above: Performed By: #### D PATRICIAD, ERUR #### [facility] [address] [place] [address] Dr. Cammy Cleaning Clarity (U) CLEAR Normal CLEAR [facility] Comment on above: Performed By: #### D FLOYD, ERUR #### [facility] [address] [place] [address] Dr. Cammy Cleaning Color (U) YELLOW Normal YELLOW [facility] Comment on above: Performed By: #### Mayda BARRIENTOS, ERUR #### [facility] [address] [place] [address] Dr. Cammy MARTINEZAHMayda A micrscopic examination will be performed if indicated. Normal [facility] Comment on above: Performed By: #### Mayda BARRIENTOS, ERUR #### [facility] [address] [place] [address] Dr. Cammy Cleaning Glucose Ql (U) >1000 Abnormal NEGATIVE [facility] Comment on above: Performed By: #### D FLOYD, ERUR #### [facility] [address] [place] [address] Dr. Cammy Cleaning Hemoglobin Ql (U) Negative Normal NEGATIVE [facility] Comment on above: Performed By: #### D BERNARDRPD, ERUR #### [facility] [address] [place] [address] Dr. Cammy Cleaning Ketones Ql (U) Negative Normal NEGATIVE [facility] Comment on above: Performed By: #### D BERNARDRPD, ERUR #### [facility] [address] [place] [address] Dr. Cammy Cleaning LEUKOCYTES Negative Normal NEGATIVE [facility] Comment on above: Performed By: #### D RUGRPD, ERUR #### [facility] [address] [address] [address] Cammy Cleaning Nitrite Ql (U) Negative Normal NEGATIVE [facility] Comment on above: Performed By: #### D FLOYD, ERUR #### [facility] [address] [address] [address] Cammy Cleaning pH (U) 5.0 [pH] Normal 5-9 [facility] Comment on above: Performed By: #### D FLOYD, ERUR #### [facility] [address] [address] [address] Cmamy Cleaning SPEC GRAVITY 1.010 Normal 1.005-<=1.025 [facility] Comment on above: Performed By: #### D FLOYD, ERUR #### [facility] [address] [address] [address] Cammy Cleaning UA PROTEIN TRACE Normal NEGATIVE/ TRACE [facility] Comment on above: Performed By: #### Mayda BARRIENTOS, ERUR #### [facility] [address] [address] [address] Cammy Cleaning UR MICRO IND NOT INDICATED Normal [facility] Comment on above: Performed By: #### D FLOYD, ERUR #### [facility] [address] [place] [address] Dr. Cammy Cleaning Urobilinogen Qn (U) 0.2 {Flory'U}/dL Normal 0.2 - 1. 0 [facility] Comment on above: Performed By: #### D FLOYD, ERUR #### [facility] [address] [address] [address] Cammy Cleaning ETHANOL (BLD ALC)on 06-06-19 23 ALC NOTE NOTE: 80 mg/dl is th e legal limit for a blood alcohol level Normal [facility] Comment on above: Performed By: #### A CARLOS STEVE, ETH ####[facility] [address] [address]Dr. Cammy Cleaning Ethanol [Mass/Vol] mg/dL Normal [facility] Comment on above: Performed By: #### A EVI, CARLOS, KAILEY ####[facility] [address] [place], [place] [address]IcDr. Cammy Cleaning POINT OF CARE GLUCOSEon Glucose [Mass/Vol] 180 mg/dL Critically high [address] [place] [address] Comment on above: Performed By: #### P OCGLUC #### [facility] [address] [address] [address] Cammy Cleaning Glucose [Mass/Vol] 133 mg/dL Critically high [address] [place] [address] Comment on above: Performed By: #### C BC #### [facility] [address] [address] [address] Cammy Cleaning Glucose [Mass/Vol] 201 mg/dL Critically high [address] [place] [address] Comment on above: Performed By: #### C BC #### [facility] [address] [address] [address] Cammy Cleaning Glucose [Mass/Vol] 112 mg/dL Critically high [address] [place] [address] Comment on above: Performed By: #### P OCGLUC #### [facility] [address] [address] [address] Cammy Cleaning PROF CHEM 8 (BAS METB)on Anion gap [Moles/Vol] 6.7 mmol/L Normal [facility] Comment on above: Performed By: #### C BC #### [facility] [address] [address] [address] Cammy Cleaning Calcium [Mass/Vol] 8.7 mg/dL Normal 8.5-10.1 [facility] Comment on above: Performed By: #### C BC #### [facility] [address] [address] [address] Cammy Cleaning Chloride [Moles/Vol] 102 mmol/L Normal 98-107 [facility] Comment on above: Performed By: #### C BC #### [facility] [address] [address] [address] Cammy Cleaning CO2 [Moles/Vol] 35.6 mmol/L Critically high 21.0-32.0 [facility] Comment on above: Performed By: #### C BC #### [facility] [address] [address] [address] Cammy Cleaning Creatinine [Mass/Vol] 0.93 mg/dL Normal 0.55-1.02 [facility] Comment on above: Performed By: #### C BC #### [facility] [address] [address] [address] Cammy Cleaning EGFR-AF ANGUILLAN >60 Normal >=60 [facility] Comment on above: Performed By: #### C BC #### [facility] [address] [address] [address] Cammy Cleaning EGFR-NON AF ANGUILLAN >60 Normal >=60 [facility] Comment on above: Performed By: #### C BC #### [facility] [address] [place] [address] Dr. Cammy Cleaning Glucose [Mass/Vol] 169 mg/dL Critically high 74-106 [facility] Comment on above: Performed By: #### C BC #### [facility] [address] [address] [address] Cammy Cleaning Potassium [Moles/Vol] 4.3 mmol/L Normal 3.5-5.1 [facility] Comment on above: Performed By: #### C BC #### [facility] [address] [place] [address] Dr. Cammy Cleaning Sodium [Moles/Vol] 140 mmol/L Normal 136-145 [facility] Comment on above: Performed By: #### C BC #### [facility] [address] [address] [address] Cammy Cleaning Urea nitrogen [Mass/Vol] 15.0 mg/dL Normal 7.0-18.0 [facility] Comment on above: Performed By: #### C BC #### [facility] [address] [address] [address] Cammy Cleaning Urea nitrogen/Creatinine [Mass ratio] 16.1 mg/mg Normal [facility] Comment on above: Performed By: #### C BC #### [facility] [address] [place], [place] [address] Dr. Cammy Cleaning SALICYLATEon 06-06-2022 SALICYLATE 1.6 mg/dL Normal <=19.9 [facility] Comment on above: Performed By: #### A CARLOS STEVE, KAILEY ####[facility] [address] [place], [place] [address]SrDr. Cammy Cleaning XR CHEST 1 Von 06-06-2022 [...] by: CELESTE LUNA Date: 2022-06-06 02:58 Normal [facility] MRI KNEE LT WO CONon 022 MRI [...] by: BURT FIGUEROA Date: 2022-05-10 15:59 Normal [facility] Progress Noteson 01-25-2022 Schedule Clerk Authentication Interface Message Text EMERGENCY TRIAGE, TREAT AND TRANSPORT (ET3) DOCUMENTATION OF TELEHEALTH VISIT Date / Time: 01/14/2022729 Name: Sanna Corrales : 1960 SSN: (Not on file) EMS Agency: [facility] [] Verbal consent obtained [] Implied consent - patient with potential emergency medical condition requiring assessment of capacity to refuse treatment and/or transport VITAL SIGNS: see flowsheet documentation Reason for Telehealth Visit: Chief Complaint Patient presents with Fall History of Present Ilness: 61 yo female who tripped over her small dog in the [facility]. EMS called for lift assist. No [...] Completed by: Tyler Ingram DO Normal [facility] XR CSPINE 2_3 VIEWSon 2021 XR [...] by: CHRISTEN BAKER Date: 2022-01-04 19:14 Normal [facility] CT SINUSES WO CONon 11-23-[address] [...] by: ANISH ROJO Date: 2021-11-22 13:29 Normal [facility] Vital Signs Date Time Vital Sign Value Performing Clinician Facility 03-27-2024 [id number] Body height 152.4 cm Erin KINGSLEY Work Phone: [facility] 03-27-2024 15:05-0400 Body mass index (BMI) [Ratio] 52.97 kg/m2 Erin KINGSLEY Work Phone: [facility] 03-27-2024 15:05-0400 Body weight 123.02 kg Erin KINGSLEY Work Phone: [facility] 03-27-2024 15:05-0400 Diastolic blood pressure 84 mm[Hg] Erin Hemmer PA Work Phone: [facility] 03-27-2024 15:05-0400 Heart rate 50 /min Erin Hemmer PA Work Phone: [facility] 03-27-2024 15:05-0400 Respiratory rate 18 /min Erin Hemmer PA Work Phone: [facility] 03-27-2024 15:05-0400 SaO2% (BldA) [Mass fraction] 96 % Erin Hemmer PA Work Phone: [facility] 03-27-2024 15:05-0400 Systolic blood pressure 128 mm[Hg] Erin Hemmer PA Work Phone: [facility] 03-14-2024 09:55-0400 Body mass index (BMI) [Ratio] 53.51 kg/m2 Yarelis Daily-Nossek [employer]ICK TEND[employer]ING [employer]ER Work Phone: [facility] 03-14-2024 09:55-0400 Body weight 124.29 kg Yarelis Daily-Nossek [employer] Work Phone: [facility] 03-14-2024 09:55-0400 Diastolic blood pressure 82 mm[Hg] Yarelis Daily-Nossek [employer] Work Phone: [facility] 03-14-2024 09:55-0400 Heart rate 72 /min Yarelis Daily-Nossek [employer] Work Phone: [facility] 03-14-2024 09:55-0400 SaO2% (BldA) [Mass fraction] 85 % Yarelis Daily-Nossek [employer] Work Phone: [facility] 03-14-2024 09:55-0400 Systolic blood pressure 134 mm[Hg] Yarelis Daliy-Nossek [employer] T[employer] Work Phone: [facility] 01-25-2022 11:40-0400 Diastolic blood pressure 82 mm[Hg] Et3 [facility] 01-25-2022 11:40-0400 Heart rate 76 /min [facility] 01-25-2022 11:40-0400 Respiratory rate 20 /min [facility] 01-25-2022 11:40-0400 SaO2% (BldA) [Mass fraction] 94 % Et3 [facility] Comment on above: ra 01-25-2022 11:40-0400 Systolic blood pressure 123 mm[Hg] Et3 [facility] Encounters Encounter Date Encounter Type Care Provider Facility Start: 03-28-2024 End: 03-28-2024 Refill Swathi Baca DO Work Phone: [facility] Comment on above: Age-related nuclear cataract of both eyes Start: 03-27-2024 End: 03-27-2024 Office outpatient visit 25 minutes Erin KINGSLEY Work Phone: [facility] Comment on above: Type 2 diabetes torsten itus with other specified complication, without long-term current use of insulin ([facility]) (Primary Dx); Limitation of activities due to disability; Chronic sinusitis, unspecified location; Abnormality of gait due to impairment of balance; Lumbar radiculopathy; Chronic diarrhea; History of falling; Bilateral primary osteoarthritis of knee Start: 03-27-2024 End: 03-27-2024 ambulatory ERIN TARIQ Not Available Start: 03-27-2024 End: 03-27-2024 Bamboo flowsheet Erin Tariq PA Work Phone: [facility] Start: 03-27-2024 End: 03-27-2024 Bamboo flowsheet Erin Tariq PA Work Phone: [facility] Start: 03-25-2024 End: 03-25-2024 ambulatory Divya Alfaro MD Facility:[facility] Start: 03-14-2024 End: 03-14-2024 Bamboo flowsheet Yarelis Weinberg [employer] T[employer]ING [employer]ER Work Phone: [facility] Start: 03-14-2024 End: 03-14-2024 Bamboo flowsheet Yarelis Weinberg [employer] Work Phone: [facility] Start: 03-14-2024 End: 03-14-2024 Office outpatient new 60 minutes Yarelis Weinbegr [employer]ING [employer]ER Work Phone: [facility] Comment on above: Mixed bipolar affect nickie disorder, moderate (CMS/HCC); JENN (generalized anxiety disorder) (CMS/[facility]) Start: 03-14-2024 End: 03-14-2024 ambulatory YARELIS WEINBERG Not Available Start: 02-21-2024 End: 02-21-2024 ambulatory ERIN TARIQ Not Available Start: 01-05-2024 End: 01-05-2024 ambulatory SWATHI BACA Not Available Start: 12-06-2023 End: 12-06-2023 ambulatory ERIN TARIQ Not Available Start: 11-28-2023 End: 11-28-2023 ambulatory SWATHI BACA Not Available Start: 10-04-2023 End: 10-04-2023 ambulatory TYLER ESTRADA Not Available Start: 09-05-2023 End: 09-05-2023 ambulatory ERIN TARIQ Not Available Start: 07-05-2023 Chart abstracting Erin Rodriguez er PA Work Phone: [facility] Start: 05-17-2023 End: 05-17-2023 ambulatory ERIN TARIQ Not Available Start: 05-09-2023 ambulatory Pratik Ramos acility:[facility] Start: 09-01-2022 ambulatory NARENDRANATH LAKSHMIPATHY . [...] Start: 01-25-2022 End: 02-02-2022 ambulatory UNKNOWN PROVIDER [facility] Start: 01-14-2022 End: 01-14-2022 ambulatory Et3 [facility] Emergenc y Triage, Treat and Transport Start: 01-14-2022 End: 01-14-2022 Emergency department patient visit Et3 [facility] Emergency Triage, Treat and Transport Comment on above: Arrived Start: 01-04-2022 End: 01-05-[address] JER RIZO Facility:[facility] Start: 11-22-2021 End: 11-23-[address] ERIN TARIQ Facility:[facility] Procedures Date Procedure Procedure Detail Performing Clinician Start: 03-27-2024 Hemoglobin glycosyla sachin a1c Erin Tariq PA Work Phone: Start: 05-17-2023 Mammography Erin bartlett PA Work Phone: Start: 11-16-2015 Colonoscopy Erin Rodriguez er PA Work Phone: Plan of Treatment Date Care Activity Detail Author Start: 11-27-2025 Glaucoma screening Diabetes: R etinopathy Screening [facility] Start: 11-15-2025 Screening for malign ant neoplasm of colon [facility] Start: 01-26-2025 Glaucoma screening Diabetes: R etinopathy Screening [facility] Start: 12-05-2024 Medicare Annual Wellness (AWV) Medicare Annual Wellness (AWV) [facility] Start: 06-27-2024 Hemoglobin A1c measurement Diabetes: Hemoglobin A1C [facility] Start: 05-17-2024 Screening for malign ant neoplasm of breast Mammogram [facility] Start: 04-17-2024 End: 04-17-2024 Patient encounter procedure 04/17/2024 1:30 PM EST Office Visit [facility] [address] [facility] [address] [place] [address] Yarelis Weinberg, BRICK TEND[employer]ING [employer]ER [address] [place] [address] [facility] Start: 04-11-2024 End: 04-11-2024 Professional / ancillary services management 04/11/2024 2:00 PM EST Ancillary Procedure [facility] [address] [place] [id number] [facility] Start: 03-27-2024 End: 03-27-2024 Patient encounter procedure 03/27/2024 3:00 PM EDT Office Visit [facility] [address] [facility] [address] [place] [phone] Erin Tariq PA [address] [facility] [address] [place] [address] Arrived [facility] Comment on above: Arrived Start: 03-27-2024 End: 03-27-2025 Microalbumin/Creatinine panel in random Urine Microalbumin / creatinine, urine ratio Lab Routine Type 2 diabetes mellitus with other specified complication, without long-term current use of insulin ([facility]) Expected: 03/27/2024 (Approximate), Expires: 03/27/2025 [facility] Work Phone: Comment on above: Expected: 03/27/2024 (Approximate), Expires: 03/27/2025 Start: 03-25-2024 End: 03-25-2024 Patient encounter procedure 03/25/2024 1:00 PM EDT Office Visit [facility] [address] [facility] [address] [place] [address] Erin Tariq PA [address] [facility] [address] [place] [address] [facility] Start: 03-23-2024 Urine screening for protein Diabetes: Urine Protein Screening [facility] Start: 03-22-2024 Medicare Annual Wellness (AWV) Medicare Annual Wellness (AWV) [facility] Start: 03-14-2024 End: 03-14-2024 Patient encounter procedure 03/14/2024 9:30 AM EDT Office Visit [facility] [address] [place] [address] Yarelis Weinberg, BRICK TENDER-[facility] [address] [place] [address] Arrived [facility] Comment on above: Arrived Start: 03-07-2024 Hemoglobin A1c measurement Diabetes: Hemoglobin A1C [facility] Start: 07-18-2023 End: 07-18-2023 Patient encounter procedure 07/18/2023 2:15 PM EST Office Visit [facility] [address] [place] [address] Swathi Baca DO [address] [place], [place] [id number] [facility] Start: 07-05-2023 End: 07-05-2023 Patient encounter procedure 07/05/2023 2:00 PM EST Office Visit [facility] [address] [place] [address] Erin Tariq, PA [address] [place] [address] [facility] Start: 06-22-2023 Hemoglobin A1c measurement Diabetes: Hemoglobin A1C [facility] Start: 02-26-2022 Influenza vaccination Influenza Vacc ine (#1) [facility] Start: 2011 Measurement of occul t blood in single stool specimen FIT [facility] Start: 2011 Screening for malign ant neoplasm of breast Mammography [facility] Start: 2011 Screening for malign ant neoplasm of colon CRC Screening [facility] Start: 2011 Shingles (RZV) Vacci ne (1 of 2) Shingles (RZV) Vaccine (1 of 2) [facility] Start: 2006 Cholesterol [Mass/volume] in Serum or Plasma Cholesterol [facility] Start: 1991 Screening for malign ant neoplasm of cervix [facility] Start: 1982 Screening for malign ant neoplasm of cervix [facility] Start: 1979 Hepatitis C screening Hepatitis C An tibody [facility] Start: 1979 Tetanus + diphtheria + acellular pertussis vaccine (product) Tdap Booster [facility] Start: 1976 HIV screening HIV Test [facility] Start: 1960 COVID-19 Vaccine (#1) COVID-19 Vacci ne (#1) [facility] Start: 1960 Screening for malign ant neoplasm of colon [facility] Immunizations Immunization Date Immunization Notes Care Provider Fa krystlety 02-21-2024 influenza, seasonal, injectable, preservative free Yarelis Daily-Nossek [employer]ING [employer]ER Work Phone: [facility] 12-06-2023 tetanus toxoid, redu aimee diphtheria toxoid, and acellular pertussis vaccine, adsorbed Yarelis Daily-Nossek BR[employer] TENDER[employer]ING [employer]ER Work Phone: [facility] 04-13-2023 Influenza, injectabl e, Madin [place] Canine Kidney, preservative free, quadrivalent Yarelis Daily-Nossek BR[employer] TENDER[employer]ING [employer]ER Work Phone: [facility] 04-13-2023 RSV, recombinant, pr otein subunit RSVpreF, adjuvant reconstitu, 120mcg/0.5mL, PF (Arexvy) Yarelis Daily-Nossek BRICK TENDER[employer]ING [employer]ER Work Phone: [facility] 06-13-2022 Pneumococcal Conjuga te PCV 20 Erin Hemefrain PA Work Phone: [facility] 03-31-2022 Influenza, injectabl e, Madin [place] Canine Kidney, preservative free, quadrivalent Erin Hemefrain PA Work Phone: [facility] 03-24-2021 influenza, injectabl e, quadrivalent, contains preservative Erin Hemefrain PA Work Phone: [facility] 03-10-2020 Influenza, injectabl e, Madin [place] Canine Kidney, preservative free, quadrivalent Erin Hemmer PA Work Phone: [facility] 03-12-2019 influenza, injectabl e, madin [place] canine kidney, preservative free Erin Hemmer PA Work Phone: [facility] 04-06-2018 Influenza, injectabl e, Madin [place] Canine Kidney, preservative free, quadrivalent Erin Hemmer PA Work Phone: [facility] 02-21-2017 pneumococcal polysaccharide vaccine, 23 valent Erin Hemmer PA Work Phone: [facility] 02-21-2017 seasonal influenza, intradermal, preservative free Erin Hemmer PA Work Phone: [facility] 04-19-2016 influenza, injectabl e, quadrivalent, preservative free Erin Hemmer PA Work Phone: [facility] 02-04-2015 seasonal influenza, intradermal, preservative free Erin Hemmer PA Work Phone: [facility] 03-25-2008 seasonal influenza, intradermal, preservative free Erin Hemmer PA Work Phone: [facility] Healthcare Payers Date Payer Category Payer Medicare (Managed Care) [facility] [id number] 2023 Unknown [id number] 2022 Self-pay 2022 Medicare [id number] 2022 Unknown SP/UNINSURED PEN DING FINANCIAL PROGRAM EVALUATION 9 2022-Present [phone] [address] [place] [address] Other [id number] 2022 Unknown 9 2021 Unknown [id number] 1960 Unknown [id number] 2.16.840.1.034810.3.579. 2.732 1960 Unknown [id number] 2.16.840.1.941620.3.579. 2.593 1960 Unknown [id number] 2.16.840.1.059307.3.579. 2.593 1960 Unknown [id number] 2.16.840.1.626366.3.579. 2.593 1960 Unknown [id number] 2.16.840.1.482441.3.579. 2.593 1960 Unknown [id number] 2.16.840.1.224557.3.579. 2.593 1960 Unknown [id number] 2.16.840.1.217437.3.579. 2.593 1961 Unknown [id number] 2.16.840.1.736416.3.579. 2.593 1961 Unknown [id number] 2.16.840.1.352626.3.579. 2.593 1961 Unknown [id number] 2.16.840.1.087528.3.579. 2.593 1961 Unknown [id number] 2.16.840.1.974436.3.579. 2.1259 1961 Unknown [id number] 2.16.840.1.242243.3.579. 2.1259 1961 Unknown [id number] 2.16.840.1.330679.3.579. 2.1259 1961 Unknown [id number] 2.16.840.1.367926.3.579. 2.1259 1961 Unknown [id number] 2.16.840.1.020997.3.579. 2.1259 1961 Unknown [id number] 2.16.840.1.864781.3.579. 2.1259 1960 Unknown [id number] 2.16.840.1.048083.3.579. 2.1259 1960 Unknown [id number] 2.16.840.1.477302.3.579. 2.1259 1961 Unknown [id number] 2.16.840.1.248787.3.579. 2.1259 1961 Unknown [id number] 2.16.840.1.043568.3.579. 2.1259 1960 Unknown [id number] 2.16.840.1.921676.3.579. 2.196 Unknown [id number] 2.16.840.1.166763.3.579. 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 Check blood glucose daily.. [id number] Start: 03-22-2023 Goals Date Patient Goal Desired Activity /State Personal health goal History of Present illness Narrative 03-27-2024 TEETEE Chicas - 03/27/2024 3:00 PM EDT Note Date & Type Note Facility 03-27-2024 History of Presen t illness Narrative Images from the original note were not included. HPI Diabetes Additional comments: Denies foot ulcers, hypoglycemia. Admits tingling/numbness in extremities. Does not check BS's at home but on Monday at the pain clinic they checked her sugar and it was 265. Currently on Farxiga and Tradjenta. Last edited by Melania Reyes LPN on 03/27/2024 3:02 PM. Subjective Patient ID: Мария Corrales is a 64 y.o. female who presents for [facility] ER follow up. Flowsheet Row Patient Outreach from 03/26/2024 in [facility] with Octavia Monday, RISK MANAGER Hospital Information ED, Hospital or Half-Way Facility Discharge? ED Patient has been contacted within 1 week of being seen in the ED No Have two attempts been made to contact the patient within one week of being seen in the ED? No Discharge Date 03/18/24 Discharged To: Home Setting Discharge Hospital [facility] Engagement Call Start Time 1030 Admission Date 03/26/24 Medications Discharge medications reviewed and reconciled from hospital? Yes Is the patient having any side effects they believe may be caused by any medication additions or changes? No Does the patient have all medications ordered at discharge? Not applicable [No new meds prescribed] Is the patient taking all medications as directed (includes completed medication regime)? Yes Appointments Does the patient have a primary care provider? Yes Has the patient kept scheduled appointments due by today? Yes Self Management Patient Teaching Does the patient have access to their discharge instructions? Yes What is the patient's perception of their health status since discharge? Same Is the patient/caregiver able to teach back the hierarchy of who to call/visit for symptoms/problems? PCP, Specialist, Home Health nurse, Urgent Care, ED, 911 Yes Wrap Up Is the patient/caregiver familiar with Advance Care Planning? No Would the patient like more information on Advance Care Planning? No Call End Time 1038 Pt fell into a wall at home and she is still very sore from her head to her bilateral shoulders and in bilateral kness (left worse than right). She has a picture with her of the whole in the wall from her fall. At the Pain Clinic, sees Dr. Divya Alfaro, they advised her to just do the Tramadol and to not do the hydrocodone so that is what she is doing. Her pain is not well controlled at all right now. The pain clinic is going to do some injections into her nerves. Her insurance did approve the injections, so she is hoping to hear from the clinic soon to get scheduled. Having headaches also. Also c/o diarrhea that has been happening off and on for a few months, worse over the last few weeks. Tomatoes, spaghetti, pizza, yogurt, fruit, nuts make it worse. Has taken Imodium with temporary relief. She does stay hydrated. Has loose and then watery BM's. Has had 4 BM's today so far. Had 5-6 BM's a day. Also noticed she is belching and passing gas. C/o sinus symptoms starting back up last week, thick yellow drainage. C/o sinus pressure and pain, sneezing. Also here for DM follow up and admits to a sweet tooth. Does not watch her diet. Current Outpatient Medications on File Prior to Visit Medication Sig Dispense Refill traMADol (Ultram) 50 MG tablet albuterol (2.5 MG/3ML) 0.083% nebulizer solution Take 3 mL (2.5 mg) by nebulization every 8 (eight) hours. 75 mL 5 albuterol HFA (Ventolin HFA) 90 mcg/act inhaler Inhale 2 puffs every 4 (four) hours if needed for wheezing or shortness of breath 18 g 5 baclofen (Lioresal) 10 MG tablet TAKE 1 TABLET BY MOUTH THREE TIMES A DAY NEEDED 270 tablet 1 Blood Glucose Monitoring Suppl device USE DIRECTED 100 strip 2 Qeisiat-Ircmdyfznrn-Wnsrmkvfxv (Breztri Aerosphere) 160-9-4.8 MCG/ACT aerosol Inhale 2 puffs in the morning and 2 puffs before bedtime. 10.7 g 5 busPIRone (Buspar) 15 MG tablet Take 1 tablet (15 mg) by mouth in the morning and 1 tablet (15 mg) before bedtime. 60 tablet 2 Cariprazine HCl (Vraylar) 3 MG capsule Take 1 capsule by mouth at bedtime 30 capsule 1 dapagliflozin (Farxiga) 10 MG TAKE 1 TABLET BY MOUTH EVERY DAY 100 tablet 3 diclofenac (Voltaren) 75 MG EC tablet TAKE 1 TABLET BY MOUTH IN THE MORNING AND 1 TABLET BEFORE BEDTIME. DO NOT CRUSH, CHEW, OR SPLIT. 200 tablet 3 DULoxetine (Cymbalta) [address] capsule Take 2 capsules (120 mg) by mouth 1 (one) time each day at the same time 200 capsule 3 furosemide (Lasix) 40 MG tablet TAKE 1 TABLET BY MOUTH TWICE A DAY 180 tablet 4 gabapentin (Neurontin) 600 MG tablet Take 1 tablet (600 mg) by mouth 2 (two) times a day AND 2 tablets (1,200 mg) at bedtime. 400 tablet 1 [] glucose blood (IGlucose Test Strips) test strip Check blood glucose daily 100 each 3 HYDROcodone-acetaminophen (Sherrill) 5-325 MG tablet Take 1 tablet by mouth every 6 (six) hours if needed for severe pain or moderate pain 56 tablet 0 lamoTRIgine (LaMICtal) 200 MG tablet Take 1 tablet (200 mg) by mouth at bedtime 90 tablet 3 lamoTRIgine (LaMICtal) 25 MG tablet Take 1 tablet (25 mg) by mouth at bedtime 90 tablet 3 Lancets 30G misc 1 each in the morning. Check blood glucose daily.. 100 each 3 levothyroxine (Synthroid, Levoxyl) 112 MCG tablet Take 1 tablet (112 mcg) by mouth in the morning. 100 tablet 3 metoprolol tartrate (Lopressor) 25 MG tablet TAKE 1 TABLET (25 MG) BY MOUTH IN THE MORNING AND BEFORE BEDTIME 180 tablet 4 OXYGEN-HELIUM IN inhaled nasal continuous use rosuvastatin (Crestor) 5 MG tablet Take 1 tablet (5 mg) by mouth Daily 90 tablet 1 Tradjenta 5 MG tablet TAKE 1 TABLET BY MOUTH EVERY DAY 90 tablet 0 traZODone (Desyrel) 100 MG tablet Take 2 tablets (200 mg) by mouth at bedtime 90 tablet 3 triamcinolone (Kenalog) 0.5 % cream APPLY 1 APPLICATION EXTERNALLY ONCE A DAY NEEDED 7 DAY(S) 30 g 2 [DISCONTINUED] rtsxvijy-cjsptkncr-wgktccmqonggsr (Cortisporin) 3.5-91317-8 otic suspension USE 3 DROPS IN EACH AFFECTED EAR IN THE MORNING, AT NOON, IN THE EVENING, AND BEFORE BEDTIME FOR 7 DAYS 10 mL 0 No current facility-administered medications on file prior to visit. I have reviewed and reconciled the history and medication list with the patient today. Allergies Allergen Reactions Ambien [Zolpidem] Other Terrible nightmares Cefdinir Hives Ibandronic Acid Hives Nabumetone Other Reaction(s): PT DOESN'T REMEMBER Penicillin G Other Reaction(s): fever, hives Sulfanilamide Other Reaction(s): Fever,hives Zoloft [Sertraline] Unusual behaviors Social History Tobacco Use Smoking status: Never Smokeless tobacco: Never Vaping Use Vaping status: Never Used Substance Use Topics Alcohol use: Not Currently Comment: Caffeine intake: 1-2 cups per day coffee, tea Drug use: Never Family History Problem Relation Name Age of Onset Hypertension Mother Cancer Mother Crohn's disease Mother Heart disease Father Mental illness Father Cancer Father Depression Father Hyperlipidemia Father Irritable bowel syndrome Father Lung cancer Sister Past Medical History: Diagnosis Date Abnormal finding on radiological examination of breast Adult respiratory distress syndrome ([facility]) 2013 Allergic Allergic rhinitis due to allergen Arthritis Asthma ([facility]) Bipolar 1 disorder ([facility]) 1991 most recent episode (or current) depressed, unspecified Bronchitis Calculus of gallbladder without mention of cholecystitis or obstruction Carpal tunnel syndrome left Cataract Cholecystitis Closed fracture of ankle Congenital heart failure ([facility]) COPD (chronic obstructive pulmonary disease) ([facility]) Degeneration of lumbar or lumbosacral intervertebral disc Diabetes mellitus ([facility]) without mention of complication, type II or unspecified type, not stated as uncontrolled Disease of thyroid gland (CMS/[facility]) Dry eyes Essential hypertension, benign (CMS/HCC) Essential hypertension, malignant (CMS/[facility]) Extremity ischemia 2014 rt lower Fracture ankle Headache Hernia of abdominal wall without mention of obstruction or gangrene History of being hospitalized 06/06/2022 AMS due to Med Overuse, Hypoxia, Fall, Acute on Chronic RF Hx of migraine headaches Hypertension ([facility]/HCC) Hypothyroidism ([facility]/HCC) IBS (irritable bowel syndrome) Influenza with pneumonia Manic episode ([facility]) 1985 Meniere disease Morbid obesity ([facility]) Myalgia and myositis Osteoarthritis Osteoporosis ([facility]) Personal history of medical treatment 2012 cardiopulmonary collapse and acute respiratory failure( Respiratory failure ([facility]) Rheumatoid arthritis ([facility]) Rotator cuff tear right Skin lesion Spondylosis unspecified site without mention of myelopathy Suicidal ideations 2012 Thyroid disease ([facility]/HCC) Past Surgical History: Procedure Laterality Date BIOPSY SKIN SUBCUTANEOUS TISSUE 2013 removal/ biopsy;Disease:abnormal skin lesion BREAST BIOPSY 2011 BRONCHOSCOPY 2013 CARDIAC CATHETERIZATION 2011 CARPAL TUNNEL RELEASE Left 2008 CHOLECYSTECTOMY 2011 ECHO 2014 EMBOLECTOMY 2014 right femoral artery OTHER SURGICAL HISTORY 2013 percutaneous cannulation of right femerol artery/v;Disease:cardiopulmonary collapse and acute respiratory failure OTHER SURGICAL HISTORY ORIF NC KNEE SCOPE,DIAGNOSTIC Right 02/04/2020 Dr. Cheek ROTATOR CUFF REPAIR Right 2007 STRESS TEST EXERCISE 2011 lexiscan TONSILLECTOMY Visit Vitals BP 128/84 Pulse 50 Resp 18 Ht 5' Wt 271 lb 3.2 oz SpO2 96% BMI 52.97 kg/m Smoking Status Never BSA 2.28 m Review of Systems Constitutional: Positive for fatigue. Negative for chills and fever. HENT: Positive for congestion, sinus pressure and sinus pain. Respiratory: Negative for cough, shortness of breath and wheezing. Cardiovascular: Negative for chest pain, palpitations and leg swelling. Gastrointestinal: Positive for abdominal pain (This morning only) and diarrhea. Negative for blood in stool, constipation, nausea and vomiting. Musculoskeletal: Positive for arthralgias, back pain and gait problem. Skin: Negative for rash. Neurological: Positive for headaches. Objective Physical Exam Constitutional: General: She is not in acute distress. Appearance: She is well-developed. She is obese. HENT: Head: Normocephalic and atraumatic. Right Ear: Tympanic membrane is erythematous (Mildly). Left Ear: Tympanic membrane is erythematous (Mildly). Nose: Comments: Turbinates with erythema Mouth/Throat: Mouth: Mucous membranes are dry. Pharynx: Posterior oropharyngeal erythema present. Comments: Voice is hoarse Eyes: General: No scleral icterus. Conjunctiva/sclera: Conjunctivae normal. Cardiovascular: Rate and Rhythm: Normal rate and regular rhythm. Heart sounds: Normal heart sounds. No murmur heard. Pulmonary: Effort: Pulmonary effort is normal. No respiratory distress. Breath sounds: Decreased air movement present. No wheezing, rhonchi or rales. Comments: O2 via nasal canula, able to speak in complete sentences. Lymphadenopathy: Cervical: No cervical adenopathy (Though tender). Skin: General: Skin is warm and dry. Neurological: General: No focal deficit present. Mental Status: She is alert and oriented to person, place, and time. Gait: Gait abnormal (Walker). Comments: Gait is broad based Psychiatric: Mood and Affect: Mood normal. Behavior: Behavior normal. Office Visit on 03/27/2024 Component Date Value Ref Range Status Hemoglobin A1C 03/27/2024 7.5 Final Assessment/Plan Diagnoses and all orders for this visit: Type 2 diabetes mellitus with other specified complication, without long-term current use of insulin ([facility]) - POCT Glycated hemoglobin, total - Microalbumin / creatinine, urine ratio; Future Advised pt that her HgbA1c did increase to 7.5 from 7.2. Advised instead of adding more medications, she should start working on improving her diet. Needs to limit simple sugars and carbs in her diet. Get adequate protein in her diet. Continue to stay hydrated. Reviewed how excessive sugar in the diet can contribute to inflammation and other complications associated with diabetes. Limitation of activities due to disability - Handicap Placard Lifetime Provided pt with handicap placard. Chronic sinusitis, unspecified location - fluticasone (Flonase Allergy Relief) 50 MCG/ACT nasal spray; Administer 1 spray into each nostril Daily Shake gently. Before first use, prime pump. After use, clean tip and replace cap. Advised pt that it is possible that an antibiotic may worsen her diarrhea. She admits when she has taken a Z-pack in the past it has caused diarrhea. Will hold off at this time and have her start Flonase as prescribed. Contact office if symptoms do not improve. Abnormality of gait due to impairment of balance - Handicap Placard Lifetime Provided pt with handicap placard. Lumbar radiculopathy - Handicap Placard Lifetime Provided pt with handicap placard. Chronic diarrhea - Bacillus Coagulans-Inulin (Probiotic Formula) 1-250 BILLION-MG capsule; Take 1 capsule by mouth at noon and 1 capsule in the evening. Start probiotic twice a day. Pt declines stool study order due to transportation issues. Advised stool studies may be necessary, or possibly a referral for an updated Colonoscopy if symptoms do not improve. The changes she has made so far, cutting things out, has not been helpful. Encouraged her to eliminate foods or supplements one at a time to see if anything improves. If not, she can restart them. She did start the Tumeric within the last 3-4 months. Patient had Colonoscopy in 2016 that did show a polyp, was told to repeat the Colonoscopy in 2-3 years. She was referred in 2019 and 2021, but did not call the offices back to get scheduled and the referrals were closed. History of falling Utilize assistive devices. Change positions slowly. The patient was seen today in follow up of recent hospital ER visit. All available hospital records/labs/diagnostics were reviewed and discussed with the patient. ER discharge meds were reviewed. Any changes to plan are noted above. Bilateral primary osteoarthritis of knee She will continue to follow up with Dr. Divya Alfaro as per his instruction. As she received notification from her insurance that the injections have been approved, encouraged her to reach out to his office tomorrow if she has not heard from them. Follow up in about 3 months (around 06/27/2024) for Diabetes. documented in this encounter [facility] History of Present illness Narrative 03-14-2024 Yarelis Weinberg, [employer] - 03/14/2024 9:30 AM Chuchorudolph Ayalahart - 03/14/2024 9:30 AM EDT Note Date & Type Note Facility 03-14-2024 History of Presen t illness Narrative NEW PATIENT PSYCHIATRIC EVALUATION This is a 64-year-old female who is here to establish psychiatric care for the treatment of her bipolar disorder. Patient was previously a patient of Dr. Parekh at [facility]. Patient had also seen Dr. [...] she believes of lesa were in the but which she was never treated. elevated [...] suffers from alcoholism. Her Brother is a product craftsman and denies any mental health problems. Denies Hx of Substance abuse. Frequency of Alcohol on special occasions. Marijuana use denies. Legal hx denies. Patient is no children. Worked at [employer]. Lives with her sister. Stressors: Patient states [...] previously a patient of Dr. Parekh at [facility]. Patient had also seen Dr. [...] is drinking again. documented in this encounter [facility] Consultation note 07-26-2022 Note Date & Type [...] purpose. I have decreased the use of Sherrill from q. 6 hours to q.i.d., 5 mg pills, to be taken as tolerated, and to increase the baclofen 10 mg pill, one pill t.i.d. also as tolerated. Went over the details of the procedure with the patient. All her questions were answered. She agrees to proceed with the outlined plan. [facility] Clinical Note 06-06-2022 Note Date & [...] FIGUEROA Date: 2022-06-06 13:[address] [facility] History of Present illness Narrative 01-25-2022 Tyler Ingram DO - 01/25/2022 11:40 AM EDT Note Date & Type Note Facility 01-25-2022 History of Presen t illness Narrative Images from the original note were not included. EMERGENCY TRIAGE, TREAT AND TRANSPORT (ET3) DOCUMENTATION OF TELEHEALTH VISIT Date / Time: 01/14/2022729 Name: Sanna Corrales : 1960 SSN: (Not on file) EMS Agency: [facility] [] Verbal consent obtained [] Implied consent - patient with potential emergency medical condition requiring assessment of capacity to refuse treatment and/or transport VITAL SIGNS: see flowsheet documentation Reason for Telehealth Visit: Chief Complaint Patient presents with Fall History of Present Ilness: 61 yo female who tripped over her small dog in the [facility]. EMS called for lift assist. No [...] note Diagnosis Mixed bipolar affective disorder, moderate ([facility]) Bipolar I disorder, most recent episode (or current) mixed, moderate JENN (generalized anxiety disorder) ([facility]) Generalized anxiety disorder documented in this encounter [facility] Evaluation note Note Date & Type Note Facility Evaluation note Diagnosis Type 2 diabetes mellitus with other specified complication, without long-term current use of insulin ([facility])- Primary Limitation of activities due to disability Chronic sinusitis, unspecified location Abnormality of gait due to impairment of balance Lumbar radiculopathy Thoracic or lumbosacral neuritis or radiculitis, unspecified Chronic diarrhea Diarrhea History of falling Bilateral primary osteoarthritis of knee documented in this encounter [facility] Evaluation note Note Date & Type Note Facility Evaluation note Diagnosis Age-related nuclear cataract of both eyes documented in this encounter [facility] Summary [...] Reason Comments Fall Reason Comments Psychiatric Evaluation Reason Comments Diabetes Denies foot ulcers, hypoglycemia. Admits tingling/numbness in extremities. Does not check BS's at home but on Monday at the pain clinic they checked her sugar and it was 265. Currently on Farxiga and Tradjenta. Reason Comments Med Refill INFORMATION SOURCE (unrecogn ized section and content) DATE CREATED AUTHOR 02/03/2022 [facility] DATE CREATED AUTHOR 'S ORGANIZ ATION 08/31/2022 [facility] DATE CREATED AUTHOR AUTHOR'S ORGANIZ ATION 08/04/[address] [facility] DATE CREATED AUTHOR AUTHOR'S ORGANIZ ATION 03/29/2024 [facility] DATE CREATED AUTHOR AUTHOR'S ORGANIZ ATION 03/30/2024 [facility] Care Teams (unrecognized sec tion and content) Blister Rust Eradicator Relationship Specialty Start Date End Date Jer Rizo MD [address] [place] [address] PCP - General Internal Medicine 01/03/23 Jer Rizo MD [address] [place] [address] PCP - Devoted 05/29/23 Blister [employer] Eradicator Relationship Specialty Start Date End Date Jer Rizo MD [address] [place] [address] PCP - General Internal Medicine 01/03/23 Jer Rizo MD [address] [place] [address] PCP - Devoted 05/29/23 Blister [employer] Eradicator Relationship Specialty Start Date End Date Jer Rizo MD [address] [place] [address] PCP - General Internal Medicine 01/03/23 Jer Rizo MD [address] [place] [address] PCP - Devoted 05/29/23 Blister Rust Eradicator Relationship Specialty Start Date End Date Jer Rizo MD [address] [place] [address] PCP - General Internal Medicine 01/03/23 Jer Rizo MD [address] [facility] [address] [place] [address] PCP - Devoted 05/29/23 Blister Rust Eradicator Relationship Specialty Start Date End Date Jer Rizo MD [address] [facility] [address] [place] [address] PCP - General Internal Medicine 01/03/23 Jer Rizo MD [address] [facility] [address] [place] [address] PCP - Devoted 05/29/23 FOR RECORDS PERTAINING [...] BE BASED ON THE PRIMARY CLINICAL RECORDS. [employer] provides no warranty or guarantee of the accuracy or completeness of information in this document.
[2024-04-15 09:01] LABS: Glucometer 182 mg/dL (74-106)
[2024-04-15] MEDS: BUPIVACAINE HCL 0.25% PF 25 MG/10 ML VIAL INJ (09:51)
[2024-04-15] MEDS: LIDOCAINE HCL 2% 400 MG/20 ML MDV 15 ML INJ (09:51)
[2024-04-15 09:53] VITALS: BP 139/83; BP 154/66; PULSE 62; PULSE 66; O2SAT 94; O2SAT 97
--- NOTE | 2024-04-15 09:54 | W.PM.PROCNOT ---
Date of procedure: 04/15/24 Pre-op diagnosis: Pain due to cervical spondylosis without myelopathy Post-op diagnosis: same as pre-op Procedure: Procedure: Bilateral C2-3, 3-4 medial branch block Medications: Bupivacaine 0.25% 6cc The patient was seen and examined in the preoperative holding area.? The informed consent was obtained and placed on the chart.? The patient was brought to the medical procedure unit and placed in the prone position.? A timeout was completed verifying correct patient, procedure site, positioning, plan, and special equipment.? Using aseptic technique, the needle was placed at left C2.? Under direct fluoroscopic visualization, a Quincke tip needle was advanced to the midpoint of the waist of the articular pillar at the respective medial branch segment. The above-mentioned injectate was placed in a 1 mL aliquot proceeded by negative aspiration.? The needle was removed.? The procedure was completed at all left C3, 4. The same procedure, at the same levels, was then completed on the right side. Insertion site was covered.? Patient was taken to the postprocedural recovery area and monitored for an appropriate length of time before found suitable for discharge in the accompaniment of a responsible adult.? Anesthesia: Local Surgeon: Divya Alfaro Pathology: none sent Condition: stable Disposition: no change
== END 2024-04-15 10:10 | disposition home or self-care (01) ==
LOC: SURGOUT 08:49
PROVIDERS: Visit Provider Anesthesiology
DX: M47.812 Spondylosis without myelopathy or radiculopathy, cervical region (principal)
CPT/HCPCS: 36415; 64490; 64491; J0665

== ENCOUNTER 2024-04-24 11:25 | Outpatient (OUT) | payer OTHER, SELFPAY ==
--- OUTSIDE RECORDS SUMMARY | 2024-04-24 11:29 | XMS_ITS | CCD ---
Author Organization [facility] Care Team Providers Care Hearing And Speech Assistant Name Role Phone Unavailable Primary Care Provider Unavailabl e PROVIDER, UNKNOWN Attending Unavailable PROVIDER, UNKNOWN Admitting Unavailable HEMMER, DR ERIN Vail Attending Unavailable HEMMER, DR ERIN Vail Admitting Unavailable NEFANISH GRIFFIN Consulting Unavailable FREDY, DR RUSSELL Primary Care Unavailable HEMMER, DR ERIN Vail Consulting Unavailable FREDY, DR RUSSELL Consulting Unavailable FREDY, DR RUSSELL Attending Unavailable FREDY, DR URSSELL Admitting Unavailable FREDY, DR RUSSELL Primary Care Unavailable CHRISTEN BAKER Consulting Unavailable ESTRADA ., MR SCOTT Attending Unavailable ESTRADA ., MR TYLER Admitting Unavailable ZIEBTRI, DR BURT Marks Consulting Unavailable FREDY, DR RUSSELL Primary Care Unavailable ESTRAAD ., MR SCOTT Consulting Unavailable LAKSHMIPATHY ., [...] Unavailable ESTRADA ., MR TYLER Admitting Unavailable DR JER RIZO Primary Care Unavailable ESTRADA ., MR TYLER Consulting Unavailable LAKSHMIPATHY ., NARENDVICTORIANOATH Attending Rachael vailable LAKSHMIPATHStefanie ., NARENDRANATH Admitting Rachael vailable BRIA GUAJARDO Consulting Unavailable DR JER RIZO Primary Care Unavailable RAFA ., SIOMARA Consulting Rachael Jer Fitch MD Primary Care Provider Jer Rizo MD Unavailable [phone] Pratik Soria Attending Unavailab Pratik Dunlap Admitting Unavailab Jer Calvin Primary Care Unavailable Dominic HERRON, Divya Jasmine Attending Unavailable Dominic HERRON, Divya Jasmine Attending Unavailable HEMERIN MARIANO Attending Unavailable TYLER ESTRADA Attending Unavailable TYLER ESTRADA Referring Unavailable SWATHI BACA Attending Unavailable CATERINAPILLO Referring Unavailable HEMMERERIN Attending Unavailable SWATHI BACA Attending Unavailable HEMMERERIN Referring Unavailable HEMMERERIN Attending Unavailable DAILYYARELIS DAVIS Attending Unavailab le HEMMERERIN Attending Unavailable DAILY-NOSYARELIS EASON Attending Unavailab le Allergies Allergy Classification Reported Allergen(s) Allergy Type Date of Onset Reaction(s) Facility (2 sources) cefdinir Drug Allergy 3 [facility] Repository (1 source) Codeine Drug Allergy [facility] Repository (2 sources) Ibandronate Drug Allergy 3 [facility] Repository (2 sources) nabumetone Drug Allergy 3 [facility] Repository (2 sources) Penicillins Drug allergy (disorder) 3 [facility] Repository (2 sources) Sulfonamides (Antibiotic) Drug allergy (disorder) 3 [facility] Repository (11 sources) cefdinir Drug Allergy 3 Hives [facility] Work Phone: (11 sources) Ibandronate Drug Allergy 3 Hives [facility] Healthcare (11 sources) nabumetone Drug Allergy 3 [facility] (11 sources) Penicillin G Drug Allergy 3 [facility] (11 sources) Sulfanilamide Allergy to substance 3 [facility] (9 sources) Sertraline Drug Allergy 4 [facility] (9 sources) zolpidem Drug Allergy 4 Other [facility] Medications Current Medications Medication Drug Class(es) Dates Sig (Normalized) Sig (Original) acetaminophen 325 mg / HYDROcodone bitartrate 5 mg oral tablet (11 sources) Opioid Agonist Start: 02-21-2024 take 1 tablet by mouth every six hours for pain HYDROcodone-acetam inophen (Jamieson) 5-325 MG tablet Indications: Cervical spondylosis Take 1 tablet by mouth every 6 (six) hours if needed for severe pain or moderate pain 56 tablet 02/21/2024 Active Start: 03-22-2023 take 1 tablet by tk th every six hours for pain HYDROcodone-acetaminophen (Jamieson) 5-325 MG tablet Indications: Cervical spondylosis Take 1 tablet by mouth every 6 (six) hours if needed for severe pain or moderate pain. 56 tablet 0 03/22/2023 Active [id number] 200 actuat albuterol 0.09 mg/actuat metered dose inhaler (20 sources) beta2-Adrenergic Agonist Start: 12-06-2023 take 2 [...] shortness of breath. 0 Active bacillus coagulans [id number] unt / inulin 250 mg oral capsule (6 sources) Start: 03-27-2024 Bacillus Coagulans-Inulin (Probiotic Formula) 1-250 BILLION-MG capsule Indications: Chronic diarrhea Take 1 capsule by mouth at noon and 1 capsule in the evening. 60 capsule 2 03/27/2024 Active baclofen 10 mg oral tablet (11 sources) gamma-Aminobut yric Acid-ergic Agonist Start: 03-05-2024 take 1 tablet by mouth three times daily as needed baclofen (Lioresal) 10 MG tablet Indications: Cervical spondylosis TAKE 1 TABLET BY MOUTH THREE TIMES A DAY NEEDED 270 tablet 1 03/05/2024 Active Start: 03-22-2023 take 1 tablet by tk three times daily as needed baclofen (Lioresal) 10 MG tablet Indications: Cervical spondylosis TAKE 1 TABLET BY MOUTH THREE TIMES A DAY NEEDED FOR 30 DAYS 270 tablet 1 03/22/2023 Active Blood Glucose Monitoring Suppl device (11 sources) Start: 04-04-2023 Blood Glucose Monitoring Suppl device Indications: Type 2 diabetes mellitus with other specified complication, without long-term current use of insulin ([facility]) USE DIRECTED 100 strip 2 04/04/2023 Active 120 actuat budesonide 0.16 mg/actuat / formoterol fumarate 0.0048 mg/actuat / glycopyrrolate 0.009 mg/actuat metered dose inhaler (11 sources) Corticosteroi d, beta2-Adrener gic Agonist Start: 09-05-2023 take 2 puff(s) by inhalation in the morning Budeson-Glycopyrrol -Formoterol (Breztri Aerosphere) 160-9-4.8 MCG/ACT aerosol Indications: Chronic obstructive pulmonary disease, unspecified COPD type (CMS/HCC) Inhale 2 puffs in the morning and 2 puffs before bedtime. 10.7 g 5 09/05/2023 Active Start: 03-08-2023 take 2 puff(s) by in halation in the morning Breztri Aerosphere 160-9-4.8 MCG/ACT aerosol Inhale 2 puffs in the morning and 2 puffs before bedtime. 0 03/08/2023 Active busPIRone hydrochloride 15 mg oral tablet (13 sources) Start: 03-14-2024 End: 03-14-2025 take 1 tablet by mouth in the morning busPIRone (Buspar) 15 MG tablet Indications: JENN (generalized anxiety disorder) (CMS/HCC) Take 1 tablet (15 mg) by mouth in the morning and 1 tablet (15 mg) before bedtime. 180 tablet 04/10/2024 07/09/2024 Active End: 03-14-2024 take 1 tablet by mouth in the morning busPIRone (Buspar) 30 MG tablet Take 1 tablet by mouth in the morning and 1 tablet before bedtime. 03/14/2024 Discontinued cariprazine 3 mg oral capsule (13 sources) Atypical Antipsychotic Start: 03-14-2024 End: 04-13-2024 take 1 capsule by mouth at bedtime Cariprazine HCl (Vraylar) 3 MG capsule Indications: Mixed bipolar affective disorder, moderate (CMS/HCC) Take 1 capsule by mouth at bedtime 30 capsule 1 03/14/2024 Active take 1 capsule by mouth once imani ly Vraylar 4.5 MG capsule Take 1 capsule by mouth 1 (one) time each day. 0 Active dapagliflozin 10 mg oral tablet (11 sources) Sodium-Glucose Cotransporter 2 Inhibitor Start: 11-06-2023 [...] sodium 75 mg delayed release oral tablet (11 sources) Nonsteroidal Anti-inflammatory Drug Start: 01-26-2024 take [...] DULoxetine 60 mg delayed release oral capsule (11 sources) Serotonin and Norepinephrine Reuptake Inhibitor Start: [...] propionate 0.05 mg/actuat metered dose nasal spray (7 sources) Corticosteroid Start: 03-27-2024 End: 03-27-2025 take [...] 0 Active furosemide 40 mg oral tablet (11 sources) Loop Diuretic Start: 09-12-2023 take 1 [...] 0 Active gabapentin 600 mg oral tablet (11 sources) Anti-epileptic Agent Start: 09-05-2023 take 1 tablet by mouth twice daily, then take 2 tablets by mouth at bedtime gabapentin (Neurontin) 600 MG tablet Indications: Type 2 diabetes mellitus with autonomic neuropathy, unspecified whether correction insulin use (CMS/HCC) Take 1 tablet (600 [...] diabetes mellitus with autonomic neuropathy, unspecified whether mother helper insulin use (CMS/HCC) Take 1 tablet (600 mg) by mouth in the morning and 1 tablet (600 mg) in the evening and 1 tablet (600 mg) before bedtime. 300 tablet 3 11/04/2022 Active hydrOXYzine pamoate 25 mg oral capsule (2 sources) Antihistamine Start: 04-17-2024 End: 05-17-2024 take 1 capsule by mouth every eight hours for anxiety hydrOXYzine pamoate (Vistaril) 25 MG capsule Indications: JENN (generalized anxiety disorder) (CMS/HCC) Take 1 capsule (25 mg) by mouth every 8 (eight) hours if needed for anxiety 30 capsule 2 04/17/2024 05/17/2024 Active ketorolac tromethamine 5 mg/ml ophthalmic solution (4 sources) Nonsteroidal Anti-inflammatory Drug, Cyclooxygenase Inhibitor Start: 03-28-2024 End: 04-27-2024 take 1 drop(s) into the eye(s) in the morning ketorolac (Acular) 0.5 % ophthalmic solution Indications: Age-related nuclear cataract of both eyes ADMINISTER 1 DROP INTO AFFECTED EYE(S) IN THE MORNING AND 1 DROP BEFORE BEDTIME 5 mL 1 03/28/2024 04/27/2024 Active lamoTRIgine 25 mg oral tablet (20 sources) Mood Stabilizer, Anti-epileptic Agent Start: 02-21-2024 [...] Active levothyroxine sodium 0.112 mg oral tablet (11 sources) l-Thyroxine Start: 11-27-2023 take 1 tablet [...] 11/23/2022 Active linagliptin 5 mg oral tablet (11 sources) Dipeptidyl Peptidase 4 Inhibitor Start: 02-09-2024 take 1 tablet by mouth once daily Tradjenta 5 MG tablet Indications: Type 2 diabetes mellitus with autonomic neuropathy, unspecified whether correction insulin use (CMS/HCC) TAKE 1 TABLET BY [...] Active metoprolol tartrate 25 mg oral tablet (11 sources) beta-Adrenergic Sher Start: 10-30-2023 take 1 [...] 200 tablet 3 11/04/2022 Active OXYGEN-HELIUM IN (11 sources) Start: 01-21-2022 OXYGEN-HELIUM IN inhaled nasal continuous use 01/21/2022 Active Start: 01-21-2022 OXYGEN-HELIUM IN inhaled nasal continuous use 0 01/21/2022 Active rosuvastatin calcium 5 mg oral tablet (10 sources) HMG-CoA Reductase Inhibitor Start: 11-28-2023 take 1 tablet by mouth once daily rosuvastatin (Crestor) 5 MG tablet Indications: Hypokalemia Take 1 tablet (5 mg) by mouth Daily 90 tablet 1 11/28/2023 Active traMADol hydrochloride 50 mg oral tablet (6 sources) Opioid Agonist Start: 03-25-2024 take 1 tablet by mouth three times daily as needed for pain traMADol (Ultram) 50 MG tablet Take 1 tablet by mouth 3 (three) times a day as needed for moderate pain 03/25/2024 Active traZODone hydrochloride 100 mg oral tablet (11 sources) Serotonin Reuptake Inhibitor Start: 02-21-2024 take [...] Active triamcinolone acetonide 5 mg/ml topical cream (11 sources) Corticosteroid Start: 05-18-2023 triamcinolone (Kenalog) 0.5 % cream Indications: Venous insufficiency (chronic) (peripheral) APPLY 1 APPLICATION EXTERNALLY ONCE A DAY NEEDED 7 DAY(S) 30 g 2 05/18/2023 Active Completed/Discontinued Medications Medication Drug Class(es) Dates Sig (Normalized) Sig (Original) hydrocortisone 10 mg/ml / neomycin 3.5 mg/ml / polymyxin b [id number] unt/ml otic suspension (6 sources) Aminoglycoside Antibacterial, Polymyxin-class Antibacterial, Corticosteroid Start: 4 End: 4 [id number] drocortisone (Cortisporin) 3.5-79233-5 otic suspension Indications: Acute otitis externa of both ears, unspecified type USE 3 DROPS IN EACH AFFECTED EAR IN THE MORNING, AT NOON, IN THE EVENING, AND BEFORE BEDTIME FOR 7 DAYS 10 mL 01/12/2024 03/27/2024 Discontinued (Other) methylPREDNISolone (3 sources) Corticosteroid Start: End: methylPREDNISolone (Medrol Dospak) 4 MG tablets Indications: [...] Problem Date Documented Date Episodic/Chronic Anxiety disorders (15 sources) Anxiety disorder; Translations: [Anxiety disorder, unspecified] Onset: 06-08-2022 01-03-2023 Chronic Aortic; peripheral; and visceral artery aneurysms (20 sources) Dissection of abdominal aorta; Translations: [Dissection of aorta] Onset: 06-15-2022 01-02-2023 Chronic Asthma (20 sources) Unspecified asthma, uncomplicated; Translations: [Severe persistent asthma] Onset: 06-15-2022 Resolved: 03-22-2023 01-02-2023 Chronic Asthma (1 source) Asthma; Translations: [EOSINOPHILIC ASTHMA] Onset: 06-15-2022 Cataract (20 sources) Artificial lens present; Translations: [Presence of intraocular lens] Onset: 11-28-2023 Resolved: 01-05-2024 01-05-2024 Chronic Chronic obstructive pulmonary disease and bronchiectasis (11 sources) Chronic obstructive lung disease; Translations: [Chronic obstructive pulmonary disease, unspecified] Onset: 01-02-2023 01-02-2023 Chronic Coronary atherosclerosis and other heart disease (12 sources) 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; Translations: [Coronary [...] fall, initial encounter] Onset: 06-15-2022 Episodic Endometriosis (10 sources) Endometriosis (clinical); Translations: [Endometriosis, unspecified] Onset: 09-05-2023 09-05-2023 Chronic Essential hypertension (12 sources) Essential (primary) hypertension; Translations: [Essential hypertension] Onset: 06-15-2022 01-02-2023 Chronic Headache; including migraine (11 sources) Migraine; Translations: [Migraine without aura, not intractable, without status migrainosus] Onset: 01-02-2023 01-02-2023 Chronic Hepatitis (11 sources) Nonalcoholic steatohepatitis; Translations: [Nonalcoholic steatohepatitis (IVAN)] Onset: 01-02-2023 01-02-2023 Chronic Joint disorders and dislocations; trauma-related (15 sources) Unspecified internal derangement of left knee; [...] Onset: 06-15-2022 Chronic Other aftercare (1 source) 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; Translations: [SKILLED NURSING CURRENT USE OF INSULIN] Onset: 06-15-2022 Episodic Other aftercare (1 source) Other correction (current) drug therapy; Translations: [OTH GOLD BUYER CURRENT DRUG THERAPY] Onset: 06-15-2022 Episodic Other [...] Chronic Other nutritional; endocrine; and metabolic disorders (11 sources) Extreme obesity with alveolar hypoventilation; Translations: [Morbid (severe) obesity with alveolar hypoventilation] Onset: 01-02-2023 01-02-2023 Chronic Other nutritional; endocrine; and metabolic disorders (10 sources) Obesity caused by energy imbalance; Translations: [Morbid (severe) obesity due to excess calories] Onset: 12-06-2023 12-06-2023 Chronic Other nutritional; endocrine; and metabolic disorders (10 sources) Body mass index 40+ - severely obese; Translations: [Body mass index (BMI) 50.0-59.9, adult] Onset: 12-06-2023 12-06-2023 Chronic Other screening for suspected conditions (not mental disorders or infectious disease) (11 sources) Computed tomography result abnormal; Translations: [Abnormal findings on diagnostic imaging of other specified body structures] Onset: 01-02-2023 01-02-2023 Chronic Other upper respiratory disease (11 sources) Allergic rhinitis; Translations: [Allergic rhinitis, unspecified] Onset: 01-02-2023 01-02-2023 Chronic Other upper respiratory infections (17 sources) Chronic sinusitis, unspecified; Translations: [Chronic sinusitis] Onset: 11-22-2021 Chronic Residual codes; unclassified (11 sources) Obstructive sleep apnea syndrome; Translations: [Obstructive [...] 01-02-2023 Chronic Rheumatoid arthritis and related disease (12 sources) Rheumatoid arthritis, unspecified; Translations: [Rheumatoid arthritis] Onset: 06-15-2022 01-02-2023 Chronic Spondylosis; intervertebral disc disorders; other back problems (18 sources) Spondylosis without myelopathy or radiculopathy, lumbar region; Translations: [Spondylosis without myelopathy or radiculopathy, lumbosacral region] Onset: 01-05-2022 Chronic Superficial injury; contusion (1 source) Contusion of lower back and pelvis, initial encounter; Translations: [CONTUSION LOWER BACK PELVIS INITIAL] Onset: 06-15-2022 Episodic Thyroid disorders (12 sources) Hypothyroidism, unspecified; Translations: [Hypothyroidism] Onset: 06-15-2022 11-23-2022 Chronic Unclassified (3 sources) LOW BACK PAIN, UNSPECIFIED; Translations: [LOW BACK PAIN, UNSPECIFIED] Onset: 07-31-2022 Unclassified (1 source) CONTACT W/AND (SUSP) EXPOS COVID-19; Translations: [CONTACT W/AND (SUSP) EXPOS COVID-19] Onset: 06-15-2022 Unclassified (10 sources) Patient on antidepressant monitoring plan Onset: 10-31-2023 10-31-2023 Past or Other Problems Problem Classification Problem Date Documented Da te Episodic/Chronic Abdominal hernia (12 sources) Diaphragmatic hernia without obstruction or gangrene; Translations: [Diaphragmatic hernia] Onset: 06-08-2022 01-03-2023 Episodic Abdominal pain (11 sources) Indigestion; Translations: [Epigastric pain] Onset: 01-02-2023 01-02-2023 Episodic Administrative/social admission (13 sources) Finding of activity of daily living; Translations: [Limitation of activities due to disability] Onset: 06-08-2022 01-03-2023 Episodic Fluid and electrolyte disorders (11 sources) Hypokalemia; Translations: [Hypokalemia] Onset: 01-04-2023 01-04-2023 Episodic Mood disorders (11 sources) Mood disorders Onset: 03-22-2023 Resolved: 04-17-2024 03-22-2023 Noninfectious gastroenteritis (13 sources) Chronic diarrhea; Translations: [Noninfective gastroenteritis and colitis, unspecified] Onset: 01-02-2023 01-02-2023 Episodic Other and unspecified benign neoplasm (11 sources) Adenomatous polyp of colon ; Translations: [Benign neoplasm of colon, unspecified] Onset: 01-02-2023 01-02-2023 Episodic Other connective tissue disease (11 sources) Fibromyalgia; Translations: [Fibromyalgia] Onset: 01-02-2023 01-02-2023 Episodic Other connective tissue disease (11 sources) Muscle pain; Translations: [Myalgia, unspecified site] Onset: 01-02-2023 01-02-2023 Episodic Other connective tissue disease (11 sources) Muscle weakness; Translations: [Muscle weakness (generalized)] Onset: 06-08-2022 01-03-2023 Episodic Other diseases of veins and lymphatics (1 source) Stasis dermatitis; Translations: [Venous insufficiency (chronic) (peripheral)] Onset: 01-02-2023 01-02-2023 Episodic Other diseases of veins and lymphatics (10 sources) Disorder of vein of lower extremity; Translations: [Venous insufficiency (chronic) (peripheral)] Onset: 01-02-2023 01-02-2023 Episodic Other gastrointestinal disorders (11 sources) Constipation; Translations: [Constipation, unspecified] Onset: 01-02-2023 01-02-2023 Episodic Other injuries and conditions due to external causes (13 sources) History of fall; Translations: [History of falling] Onset: 06-08-2022 01-03-2023 Episodic Other nervous system disorders (13 sources) Abnormal gait due to impairment of balance; Translations: [Other abnormalities of gait and mobility] Onset: 06-08-2022 01-04-2023 Episodic Other upper respiratory disease (11 sources) Hoarse; Translations: [Dysphonia] Onset: 01-02-2023 01-02-2023 Episodic Other upper respiratory disease (11 sources) Nasal obstruction; Translations: [Other specified disorders of nose and nasal sinuses] Onset: 01-02-2023 01-02-2023 Episodic Residual codes; unclassified (11 sources) Altered mental status; Translations: [Altered mental status, unspecified] Onset: 01-02-2023 Resolved: 12-06-2023 01-02-2023 Episodic Screening and history of mental health and substance abuse codes (11 sources) H/O: psychiatric disorder; Translations: [Personal history [...] 03-27-2024 HbA1c (Bld) [Mass fraction] 7.5 % [facility] No Panel Informationon 03-27 Interpretation and review of laboratory results Abnormal [facility] BI MAMMOGRAM SCREENING [...] IS VERY IMPORTANT TO YOUR HEALTH. THE [employer] GUIDELINES RECOMMEND THAT WOMEN 40 [...] [Mass/Vol] 238 mg/dL Critically high 74-106 [facility] Comment on above: Performed By: #### P OCGLUC #### [facility] [address] [address] [address] Cammy Cleaning XR HIPS SOPHY [id number] [...] joint and sacroiliac joint osteoarthritis. Normal [facility] MRI LSLIVONIA WO CONon 07-11-19 23 MRI [facility] CON EXAMINATION: MRI [facility] CON HISTORY: Lumbar radiculopathy COMPARISON: No relevant [...] left L5-S1 foraminal stenosis Electronically authenticated by: CHRISTNE BAKER Date: 2022-07-11 16:37 Normal [facility] CBC AUTO DIFFon 06-08-2022 BASO # 0.1 103/ul Normal 0.0-0.1 [facility] Comment on above: Performed By: #### C BC #### [facility] [address] [address] [address] Cammy Cleaning Basophils/100 WBC (Bld) 0.8 % Normal 0.2-2.0 [facility] Comment on above: Performed By: #### C BC #### [facility] [address] [address] [address] Cammy Cleaning EO # 0.5 103/ul Normal 0.0-0.7 [facility] Comment on above: Performed By: #### C BC #### [facility] [address] [address] [address] Cammy Cleaning Eosinophils/100 WBC (Bld) 5.2 % Normal 0.9-7.0 [facility] Comment on above: Performed By: #### C BC #### [facility] [address] [place] [address] Dr. Cammy Cleaning Erythrocyte distribution width (RBC) [Ratio] 14.8 % Normal 11.0-15.0 [facility] Comment on above: Performed By: #### C BC #### [facility] [address] [place] [address] Dr. Cammy Cleaning Hematocrit (Bld) [Volume fraction] 50.0 % Critically high 36.0-48.0 [facility] Comment on above: Performed By: #### C BC #### [facility] [address] [place] [address] Dr. Cammy Cleaning Hemoglobin (Bld) [Mass/Vol] 15.2 g/dL Normal 12.0-16.0 [facility] Comment on above: Performed By: #### C BC #### [facility] [address] [place] [address] Dr. Cammy Cleaning IG # 0.19 10e3/ul Critically high 0.00-0.03 [facility] Comment on above: Performed By: #### C BC #### [facility] [address] [place] [address] Dr. Cammy Cleainng IG % 1.8 % Critically high 0.0-0.5 [facility] Comment on above: Performed By: #### C BC #### [facility] [address] [place] [address] Dr. Cammy Cleaning LYMPH # 2.1 103/ul Normal 1.2-3.8 [facility] Comment on above: Performed By: #### C BC #### [facility] [address] [place] [address] Dr. Cammy Cleaning Lymphocytes/100 WBC (Bld) 19.6 % Critically low 20.5-60.0 [facility] Comment on above: Performed By: #### C BC #### [facility] [address] [place] [address] Dr. Cammy Cleaning MANUAL DIFF REQ NO Normal [facility] Comment on above: Performed By: #### C BC #### [facility] [address] [place] [address] Dr. Cammy Cleaning MCH (RBC) [Entitic mass] 27.6 pg Normal 26.7-34.0 [facility] Comment on above: Performed By: #### C BC #### [facility] [address] [place] [address] Dr. Cammy Cleaning MCHC (RBC) [Mass/Vol] 30.4 g/dL Normal 29.9-35.2 [facility] Comment on above: Performed By: #### C BC #### [facility] [address] [place] [address] Dr. Cammy Cleaning MCV (RBC) [Entitic vol] 90.7 fL Normal 81.0-99.0 [facility] Comment on above: Performed By: #### C BC #### [facility] [address] [place] [address] Dr. Cammy Cleaning MONO # 0.7 103/ul Normal 0.3-0.8 [facility] Comment on above: Performed By: #### C BC #### [facility] [address] [place] [address] Dr. Cammy Cleaning Monocytes/100 WBC (Bld) 7.0 % Normal 1.7-12.0 [facility] Comment on above: Performed By: #### C BC #### [facility] [address] [address] [address] Cammy Cleaning NEUT # 6.9 103/ul Critically high 1.4-6.5 [facility] Comment on above: Performed By: #### C BC #### [facility] [address] [address] [address] Cammy Cleaning Neutrophils/100 WBC (Bld) 65.6 % Normal 43.0-75.0 [facility] Comment on above: Performed By: #### C BC #### [facility] [address] [address] [address] Cammy Cleaning Platelet mean volume (Bld) [Entitic vol] 8.7 fL Critically low 9.5-13.5 [facility] Comment on above: Performed By: #### C BC #### [facility] [address] [address] [address] Cammy Cleaning PLT 166 103/ul Normal 150-450 [facility] Comment on above: Performed By: #### C BC #### [facility] [address] [address] [address] Cammy Cleaning RBC 5.51 106/ul Critically high 4.20-5.40 [facility] Comment on above: Performed By: #### C BC #### [facility] [address] [address] [address] Cammy Cleaning WBC 10.5 103/ul Normal 4.0-11.0 [facility] Comment on above: Performed By: #### C BC #### [facility] [address] [address] [address] Cammy Cleaning POINT OF CARE GLUCOSEon 05-29 Glucose [Mass/Vol] 134 mg/dL Critically high 74-106 T [facility] Comment on above: Performed By: #### P OCGLUC #### [facility] [address] [address] [address] Cammy Cleaning PROF 14(COMP METB)on 023 Albumin [Mass/Vol] 3.0 g/dL Critically low 3.4-5.0 [facility] Comment on above: Performed By: #### C MP ####[facility] [address] [id number]. Cammy Cleaning Albumin/Globulin [Mass ratio] 0.8 {ratio} Normal [facility] Comment on above: Performed By: #### C MP ####[facility] [address] [id number]. Cammy Cleaning ALP [Catalytic activity/Vol] 85 U/L Normal 46-116 [facility] Comment on above: Performed By: #### C MP ####[facility] [address] [address]Dr. Cammy Cleaning ALT [Catalytic activity/Vol] 19 U/L Normal 14-59 [facility] Comment on above: Performed By: #### C MP ####[facility] [address] [place], [place] [address]Dr. Cammy Cleaning Anion gap [Moles/Vol] 6.9 mmol/L Normal [facility] Comment on above: Performed By: #### C MP ####[facility] [address] [place], [place] [address]Dr. Cammy Cleaning AST [Catalytic activity/Vol] 18 U/L Normal 15-37 [facility] Comment on above: Performed By: #### C MP ####[facility] [address] [place], [place] [address]Dr. Cammy Cleaning Bilirubin [Mass/Vol] 0.6 mg/dL Normal 0.2-1.0 [facility] Comment on above: Performed By: #### C MP ####[facility] [address] [place], [place] [address]Dr. Cammy Black Calcium [Mass/Vol] 9.4 mg/dL Normal 8.5-10.1 [facility] Comment on above: Performed By: #### C MP ####[facility] [address] [place], [place] [address]Dr. Cammy Black Chloride [Moles/Vol] 99 mmol/L Normal 98-107 [facility] Comment on above: Performed By: #### C MP ####[facility] [address] [place], [place] [id number]. Cammy Cleaning CO2 [Moles/Vol] 37.8 mmol/L Critically high 21.0-32.0 [facility] Comment on above: Performed By: #### C MP ####[facility] [address] [address]Dr. Cammy Cleaning Creatinine [Mass/Vol] 0.85 mg/dL Normal 0.55-1.02 [facility] Comment on above: Performed By: #### C MP ####[facility] [address] [place], [place] [address]Dr. Cammy Cleaning EGFR-AF BAHAMIAN >60 Normal >=60 [facility] Comment on above: Performed By: #### C MP ####[facility] [address] [place], [place] [address]Dr. Cammy Cleaning EGFR-NON AF BAHAMIAN >60 Normal >=60 [facility] Comment on above: Performed By: #### C MP ####[facility] [address] [place], [place] [address]Dr. Cammy Cleaning Globulin (S) [Mass/Vol] 3.6 g/dL Normal [facility] Comment on above: Performed By: #### C MP ####[facility] [address] [place], [place] [address]Dr. Cammy Cleaning Glucose [Mass/Vol] 139 mg/dL Critically high 74-106 T [facility] Comment on above: Performed By: #### C MP ####[facility] [address] [place], [place] [address]Dr. Cammy Cleaning Potassium [Moles/Vol] 3.7 mmol/L Normal 3.5-5.1 [facility] Comment on above: Performed By: #### C MP ####[facility] [address] [place], [place] [address]Dr. Cammy Cleaning Protein [Mass/Vol] 6.6 g/dL Normal 6.4-8.2 [facility] Comment on above: Performed By: #### C MP ####[facility] [address] [place], [place] [address]Dr. Cammy Cleaning Sodium [Moles/Vol] 140 mmol/L Normal 136-145 [facility] Comment on above: Performed By: #### C MP ####[facility] [address] [address]Dr. Cammy Cleaning Urea nitrogen [Mass/Vol] 14.0 mg/dL Normal 7.0-18.0 [facility] Comment on above: Performed By: #### C MP ####[facility] [address] [address]DrNoreen Cleaning Urea nitrogen/Creatinine [Mass ratio] 16.5 mg/mg Normal [facility] Comment on above: Performed By: #### C MP ####[facility] [address] [place], [place] [address]Dr. Cammy Cleaning BNPon 06-07-2022 Natriuretic peptide B (Bld) [Mass/Vol] 117.0 pg/mL Normal <=900.0 [facility] Comment on above: Performed By: #### C BC #### [facility] [address] [place] [address] Dr. Cammy Cleaning CBC AUTO DIFFon 06-07-2022 BASO # 0.1 103/ul Normal 0.0-0.1 [facility] Comment on above: Performed By: #### C BC #### [facility] [address] [place] [address] Dr. Camym Cleaning Basophils/100 WBC (Bld) 0.6 % Normal 0.2-2.0 [facility] Comment on above: Performed By: #### C BC #### [facility] [address] [place] [address] Dr. Cammy Cleaning EO # 0.6 103/ul Normal 0.0-0.7 [facility] Comment on above: Performed By: #### C BC #### [facility] [address] [place] [address] Dr. Cammy Cleaning Eosinophils/100 WBC (Bld) 5.8 % Normal 0.9-7.0 [facility] Comment on above: Performed By: #### C BC #### [facility] [address] [place] [address] Dr. Cammy Cleaning Erythrocyte distribution width (RBC) [Ratio] 14.6 % Normal 11.0-15.0 [facility] Comment on above: Performed By: #### C BC #### [facility] [address] [place] [address] Dr. Cammy Cleaning Hematocrit (Bld) [Volume fraction] 45.8 % Normal 36.0-48.0 [facility] Comment on above: Performed By: #### C BC #### [facility] [address] [place] [address] Dr. Cammy Cleaning Hemoglobin (Bld) [Mass/Vol] 14.4 g/dL Normal 12.0-16.0 [facility] Comment on above: Performed By: #### C BC #### [facility] [address] [place] [address] Dr. Cammy Cleaning IG # 0.18 10e3/ul Critically high 0.00-0.03 [facility] Comment on above: Performed By: #### C BC #### [facility] [address] [place] [address] Dr. Cammy Cleaning IG % 1.7 % Critically high 0.0-0.5 [facility] Comment on above: Performed By: #### C BC #### [facility] [address] [place] [address] Dr. Cammy Cleaning LYMPH # 1.8 103/ul Normal 1.2-3.8 [facility] Comment on above: Performed By: #### C BC #### [facility] [address] [place] [address] Dr. Cammy Cleaning Lymphocytes/100 WBC (Bld) 16.1 % Critically low 20.5-60.0 [facility] Comment on above: Performed By: #### C BC #### [facility] [address] [place] [address] Dr. Cammy Cleaning MANUAL DIFF REQ NO Normal [facility] Comment on above: Performed By: #### C BC #### [facility] [address] [place] [address] Dr. Cammy Cleaning MCH (RBC) [Entitic mass] 27.7 pg Normal 26.7-34.0 [facility] Comment on above: Performed By: #### C BC #### [facility] [address] [address] [address] Cammy Cleaning MCHC (RBC) [Mass/Vol] 31.4 g/dL Normal 29.9-35.2 [facility] Comment on above: Performed By: #### C BC #### [facility] [address] [address] [address] Cammy Cleaning MCV (RBC) [Entitic vol] 88.1 fL Normal 81.0-99.0 [facility] Comment on above: Performed By: #### C BC #### [facility] [address] [place] [address] Dr. Cammy Cleaning MONO # 0.9 103/ul Critically high 0.3-0.8 [facility] Comment on above: Performed By: #### C BC #### [facility] [address] [place] [address] Dr. Cammy Cleaning Monocytes/100 WBC (Bld) 8.2 % Normal 1.7-12.0 [facility] Comment on above: Performed By: #### C BC #### [facility] [address] [place] [address] Dr. Cammy Cleaning NEUT # 7.3 103/ul Critically high 1.4-6.5 [facility] Comment on above: Performed By: #### C BC #### [facility] [address] [place] [address] Dr. Cammy Cleaning Neutrophils/100 WBC (Bld) 67.6 % Normal 43.0-75.0 [facility] Comment on above: Performed By: #### C BC #### [facility] [address] [place] [address] Dr. Cammy Cleaning Platelet mean volume (Bld) [Entitic vol] 8.8 fL Critically low 9.5-13.5 [facility] Comment on above: Performed By: #### C BC #### [facility] [address] [address] [address] Cammy Cleaning PLT 169 103/ul Normal 150-450 [facility] Comment on above: Performed By: #### C BC #### [facility] [address] [place] [address] Dr. Cammy Cleaning RBC 5.20 106/ul Normal 4.20-5.40 [facility] Comment on above: Performed By: #### C BC #### [facility] [address] [id number] Cammy Cleaning WBC 10.9 103/ul Normal 4.0-11.0 [facility] Comment on above: Performed By: #### C BC #### [facility] [address] [place] [address] Dr. Cammy Cleaning ECHOCARDIO M/2D COMPLETEon 0 06-07-2022 ECHOCARDIO M/2D COMPLETE Patient: SANNA CORRALES Exam Date: 06/07/2022 : 1960 Gender:F Ordering : DR. WILLEM HIDALGO . Admission #: [id number] Family : OMID MARTINS . Order #: [id number] CLICK HERE TO VIEW EXAM ECHOCARDIOGRAM REPORT [...] Arellano M.D. on 06/09/2022 at 10:48 Normal [facility] FREE T4on 06-07-2022 Free T4 [Mass/Vol] 1.21 ng/dL Normal 0.76-1.46 [facility] Comment on above: Performed By: #### C BC #### [facility] [address] [address] [address] Cammy Cleaning GLYCOHEMOGLOBIN A1Con 2022 ADA RECOMMENDATION SEE BELOW Normal [facility] Comment on above: Result Comment: ADA RECOMMENDED LIMIT 4.0 - 6.0 ADA THERAPEUTIC TARGET < 7.0 ACTION SUGGESTED > 7.0 Performed By: #### P OCGLUC #### [facility] [address] [address] [address] Cammy Cleaning Glucose [Mass/Vol] 171 mg/dL Normal [facility] Comment on above: Performed By: #### P OCGLUC #### [facility] [address] [address] [address] Cammy Cleaning HbA1c (Bld) [Mass fraction] 7.6 % Critically high 4.5-6.2 [facility] Comment on above: Performed By: #### P OCGLUC #### [facility] [address] [address] [address] Cammy Cleaning POINT OF CARE GLUCOSEon 05-29 Glucose [Mass/Vol] 141 mg/dL Critically high -106 [facility] Comment on above: Performed By: #### C BC #### [facility] [address] [address] [address] Cammy Cleaning Glucose [Mass/Vol] 161 mg/dL Critically high -106 [facility] Comment on above: Performed By: #### P OCGLUC ####[facility] [address] [address]Dr. Cammy Cleaning Glucose [Mass/Vol] 148 mg/dL Critically high -106 [facility] Comment on above: Performed By: #### P OCGLUC ####[facility] [address] [employer], [place] [address]OiDr. Cammy Cleaning PROF 14(COMP METB)on 023 Albumin [Mass/Vol] 2.7 g/dL Critically low 3.4-5.0 Th e [facility] Comment on above: Performed By: #### C MP #### [facility] [address] [address] [address] Cammy Cleaning Albumin/Globulin [Mass ratio] 0.8 {ratio} Normal [facility] Comment on above: Performed By: #### C MP #### [facility] [address] [address] [address] Cammy Cleaning ALP [Catalytic activity/Vol] 85 U/L Normal 46-116 [facility] Comment on above: Performed By: #### C MP #### [facility] [address] [address] [address] Cammy Cleaning ALT [Catalytic activity/Vol] 15 U/L Normal 14-59 [facility] Comment on above: Performed By: #### C MP #### [facility] [address] [address] [address] Cammy Cleaning Anion gap [Moles/Vol] 8.3 mmol/L Normal [facility] Comment on above: Performed By: #### C MP #### [facility] [address] [address] [address] Cammy Cleaning AST [Catalytic activity/Vol] 17 U/L Normal 15-37 [facility] Comment on above: Performed By: #### C MP #### [facility] [address] [address] [address] Cammy Cleaning Bilirubin [Mass/Vol] 0.6 mg/dL Normal 0.2-1.0 [facility] Comment on above: Performed By: #### C MP #### [facility] [address] [address] [address] Cammy Cleaning Calcium [Mass/Vol] 8.9 mg/dL Normal 8.5-10.1 [facility] Comment on above: Performed By: #### C MP #### [facility] [address] [address] [address] Cammy Cleaning Chloride [Moles/Vol] 102 mmol/L Normal 98-107 [facility] Comment on above: Performed By: #### C MP #### [facility] [address] [address] [address] Cammy Cleaning CO2 [Moles/Vol] 34.6 mmol/L Critically high 21.0-32.0 [facility] Comment on above: Performed By: #### C MP #### [facility] [address] [place] [address] Dr. Cammy Cleaning Creatinine [Mass/Vol] 0.80 mg/dL Normal 0.55-1.02 [facility] Comment on above: Performed By: #### C MP #### [facility] [address] [place] [address] Dr. Cammy Cleaning EGFR-AF BAHAMIAN >60 Normal >=60 [facility] Comment on above: Performed By: #### C MP #### [facility] [address] [place] [address] Dr. Cammy Cleaning EGFR-NON AF BAHAMIAN >60 Normal >=60 [facility] Comment on above: Performed By: #### C MP #### [facility] [address] [place] [address] Dr. Cammy Cleaning Globulin (S) [Mass/Vol] 3.2 g/dL Normal [facility] Comment on above: Performed By: #### C MP #### [facility] [address] [place] [address] Dr. Cammy Cleaning Glucose [Mass/Vol] 128 mg/dL Critically high 74-106 [facility] Comment on above: Performed By: #### C MP #### [facility] [address] [place] [address] Dr. Cammy Cleaning Potassium [Moles/Vol] 3.9 mmol/L Normal 3.5-5.1 [facility] Comment on above: Performed By: #### C MP #### [facility] [address] [place] [address] Dr. Cammy Cleaning Protein [Mass/Vol] 5.9 g/dL Critically low 6.4-8.[address] [facility] Comment on above: Performed By: #### C MP #### [facility] [address] [address] [address] Cammy Cleaning Sodium [Moles/Vol] 141 mmol/L Normal 136-145 [facility] Comment on above: Performed By: #### C MP #### [facility] [address] [address] [address] Cammy Cleaning Urea nitrogen [Mass/Vol] 11.0 mg/dL Normal 7.0-18.0 [facility] Comment on above: Performed By: #### C MP #### [facility] [address] [address] [address] Cammy Cleaning Urea nitrogen/Creatinine [Mass ratio] 13.8 mg/mg Normal [facility] Comment on above: Performed By: #### C MP #### [facility] [address] [address] [address] Cammy Cleaning TSHon 06-07-2022 TSH 2.839 uIU/mL Normal 0.358-3.740 [facility] Comment on above: Performed By: #### T SH ####[facility] [address] [address]Dr. Cammy Cleaning ACETAMINOPHENon 06-06-2022 Acetaminophen [Mass/Vol] ug/mL Normal 10.0-30.0 [facility] Comment on above: Performed By: #### A CET, CARLOS, ETH ####[facility] [address] [address]DrNoreen Cleaning BLOOD GASES BTYon 06-06-2022 02 MODE NASAL CANNULA Normal [facility] Comment on above: Performed By: #### A BG ####[facility] [address] [address]DrNoreen Cleaning ALLENS TEST Positive Normal [facility] Comment on above: Performed By: #### A BG ####[facility] [address] [address]DrNoreen Cleaning Base excess Calc (Bld) [Moles/Vol] 9.4 mmol/L Critically high -2.0-2.0 [facility] Comment on above: Performed By: #### A BG ####[facility] [address] [address]Dr. Cammy Cleaning BIPAP PRESSURE Normal [facility] Comment on above: Performed By: #### A BG ####[facility] [address] [address]Dr. Cammy Cleaning CPAP Normal [facility] Comment on above: Performed By: #### A BG ####[facility] [address] [address]Dr. Cammy Cleaning FIO2 Normal [facility] Comment on above: Performed By: #### A BG ####[facility] [address] [place], [place] [address]Dr. Cammy Cleaning HCO3 (Bld) [Moles/Vol] 35.1 mmol/L Critically high 22.0-26.0 [facility] Comment on above: Performed By: #### A BG ####[facility] [address] [place], [place] [address]Dr. Cammy Cleaning LPM 2 Normal [facility] Comment on above: Performed By: #### A BG ####[facility] [address] [place], [place] [address]Dr. Cammy Cleaning MINUTE VOLUME Normal [facility] Comment on above: Performed By: #### A BG ####[facility] [address] [place], [place] [address]Dr. Cammy Cleaning Oxygen (Bld) [Partial pressure] 59.8 mm[Hg] Critically low 80.0-100.0 [facility] Comment on above: Performed By: #### A BG ####[facility] [address] [place], [place] [address]Dr. Cammy Cleaning Oxygen saturation in Blood 92.4 % Critically low 95.0-100.0 [facility] Comment on above: Performed By: #### A BG ####[facility] [address] [place], [place] [address]Dr. Cammy Cleaning PCO2 63.7 mmHg Critically high 35.0-45.0 [facility] Comment on above: Performed By: #### A BG ####[facility] [address] [address]Dr. Cammy Cleaning PEEP [facility] Comment on above: Performed By: #### A BG ####[facility] [address] [address]Dr. Cammy Cleaning pH (Bld) 7.349 [pH] Critically low 7.350-7.450 [facility] Comment on above: Performed By: #### A BG ####[facility] [address] [address]Dr. Cammy Cleaning PIP [facility] Comment on above: Performed By: #### A BG ####[facility] [address] [address]Dr. Cammy Cleaning PS [facility] Comment on above: Performed By: #### A BG ####[facility] [address] [address]Dr. Cammy Cleaning PUNCTURE SITE [facility] Comment on above: Performed By: #### A BG ####[facility] [address] [address]Dr. Cammy Cleaning RATE [facility] Comment on above: Performed By: #### A BG ####[facility] [address] [address]Dr. Cammy Cleaning VENT MODE [facility] Comment on above: Performed By: #### A BG ####[facility] [address] [address]Dr. Cammy Cleaning [place] [facility] Comment on above: Performed By: #### A BG ####[facility] [address] [address]Dr. Cammy Cleaning BNPon 06-06-2022 Natriuretic peptide B (Bld) [Mass/Vol] 81.0 pg/mL Normal <=900.0 [facility] Comment on above: Performed By: #### C BC #### [facility] [address] [address] [address] Cammy Cleaning CARDIAC PILLO 3-6on 3 CK [Catalytic activity/Vol] 205 U/L Critically high 26-192 [facility] Comment on above: Performed By: #### C MREP #### [facility] [address] [address] [address] Cammy Cleaning CK.MB [Mass/Vol] 0.77 ng/mL Normal <=3.60 [facility] Comment on above: Performed By: #### C MREP #### [facility] [address] [place] [address] Dr. Cammy Cleaning HSTROP 7.5 pg/mL Normal 4.0-51.3 [facility] Comment on above: Result Comment: CUT- OFF POINTS HAVE BEEN ESTABLISHED BASED ON THE FOURTH UNIVERSAL DEFINITIONS OF MYOCARDIAL INFARCTION. THE UPPER REFERENCE LIMIT (URL) OF TROPONIN, DEFINED THE 99TH PERCENTILE OF cTnI DISTRIBUTION IN A REFERENCE POPULATION, HAS BEEN CONFIRMED THE DECISION THRESHOLD FOR UT DIAGNOSIS. Performed By: #### C MREP #### [facility] [address] [place] [address] Dr. Cammy Cleaning CK [Catalytic activity/Vol] 220 U/L Critically high 26-192 [facility] Comment on above: Performed By: #### C BC #### [facility] [address] [place] [address] Dr. Cammy Cleaning CK.MB [Mass/Vol] 0.86 ng/mL Normal <=3.60 [facility] Comment on above: Performed By: #### C BC #### [facility] [address] [place] [address] Dr. Cammy Cleaning HSTROP 8.7 pg/mL Normal 4.0-51.3 [facility] Comment on above: Result Comment: CUT- OFF POINTS HAVE BEEN ESTABLISHED BASED ON THE FOURTH UNIVERSAL DEFINITIONS OF MYOCARDIAL INFARCTION. THE UPPER REFERENCE LIMIT (URL) OF TROPONIN, DEFINED THE 99TH PERCENTILE OF cTnI DISTRIBUTION IN A REFERENCE POPULATION, HAS BEEN CONFIRMED THE DECISION THRESHOLD FOR UT DIAGNOSIS. Performed By: #### C BC #### [facility] [address] [address] [address] Cammy Cleaning CBC AUTO DIFFon 06-06-2022 BASO # 0.1 103/ul Normal 0.0-0.1 [facility] Comment on above: Performed By: #### C BC #### [facility] [address] [place] [address] Dr. Cammy Cleaning Basophils/100 WBC (Bld) 0.7 % Normal 0.2-2.0 [facility] Comment on above: Performed By: #### C BC #### [facility] [address] [place] [address] Dr. Cammy Cleaning EO # 0.6 103/ul Normal 0.0-0.7 [facility] Comment on above: Performed By: #### C BC #### [facility] [address] [place] [address] Dr. Cammy Cleaning Eosinophils/100 WBC (Bld) 5.4 % Normal 0.9-7.0 [facility] Comment on above: Performed By: #### C BC #### [facility] [address] [place] [address] Dr. Cammy Cleaning Erythrocyte distribution width (RBC) [Ratio] 14.6 % Normal 11.0-15.0 [facility] Comment on above: Performed By: #### C BC #### [facility] [address] [place] [address] Dr. Cammy Cleaning Hematocrit (Bld) [Volume fraction] 47.2 % Normal 36.0-48.0 [facility] Comment on above: Performed By: #### C BC #### [facility] [address] [place] [address] Dr. Cammy Cleaning Hemoglobin (Bld) [Mass/Vol] 15.4 g/dL Normal 12.0-16.0 [facility] Comment on above: Performed By: #### C BC #### [facility] [address] [place] [address] Dr. Cammy Cleaning IG # 0.19 10e3/ul Critically high 0.00-0.03 [facility] Comment on above: Performed By: #### C BC #### [facility] [address] [place] [address] Dr. Cammy Cleaning IG % 1.7 % Critically high 0.0-0.5 [facility] Comment on above: Performed By: #### C BC #### [facility] [address] [place] [address] Dr. Cammy Cleaning LYMPH # 1.8 103/ul Normal 1.2-3.8 [facility] Comment on above: Performed By: #### C BC #### [facility] [address] [place] [address] Dr. Cammy Cleaning Lymphocytes/100 WBC (Bld) 16.0 % Critically low 20.5-60.0 [facility] Comment on above: Performed By: #### C BC #### [facility] [address] [place] [address] Dr. Cammy Cleaning MANUAL DIFF REQ NO Normal [facility] Comment on above: Performed By: #### C BC #### [facility] [address] [place] [address] Dr. Cammy Cleaning MCH (RBC) [Entitic mass] 27.7 pg Normal 26.7-34.0 [facility] Comment on above: Performed By: #### C BC #### [facility] [address] [place] [address] Dr. Cammy Cleaning MCHC (RBC) [Mass/Vol] 32.6 g/dL Normal 29.9-35.2 [facility] Comment on above: Performed By: #### C BC #### [facility] [address] [place] [address] Dr. Cammy Cleaning MCV (RBC) [Entitic vol] 85.0 fL Normal 81.0-99.0 [facility] Comment on above: Performed By: #### C BC #### [facility] [address] [place] [address] Dr. Cammy Cleaning MONO # 0.8 103/ul Normal 0.3-0.8 [facility] Comment on above: Performed By: #### C BC #### [facility] [address] [place] [address] Dr. Cammy Cleaning Monocytes/100 WBC (Bld) 6.8 % Normal 1.7-12.0 [facility] Comment on above: Performed By: #### C BC #### [facility] [address] [place] [address] Dr. Cammy Cleaning NEUT # 7.8 103/ul Critically high 1.4-6.5 [facility] Comment on above: Performed By: #### C BC #### [facility] [address] [place] [address] Dr. Cammy Cleaning Neutrophils/100 WBC (Bld) 69.4 % Normal 43.0-75.0 [facility] Comment on above: Performed By: #### C BC #### [facility] [address] [place] [address] Dr. Cammy Cleaning Platelet mean volume (Bld) [Entitic vol] 9.0 fL Critically low 9.5-13.5 [facility] Comment on above: Performed By: #### C BC #### [facility] [address] [place] [address] Dr. Cammy Cleaning PLT 162 103/ul Normal 150-450 [facility] Comment on above: Performed By: #### C BC #### [facility] [address] [place] [address] Dr. Cammy Cleaning RBC 5.55 106/ul Critically high 4.20-5.40 [facility] Comment on above: Performed By: #### C BC #### [facility] [address] [place] [address] Dr. Cammy Cleaning WBC 11.3 103/ul Critically high 4.0-11.0 [facility] Comment on above: Performed By: #### C BC #### [facility] [address] [place] [address] ABD/PELV W CONon [...] by: Christo SARAVIA Date: 2022-06-06 02:[address] [facility] [address] CSPINE WO CONon 3 CT CSPINE [...] WILL HOGAN Date: 2022-06-06 02:09 Normal [facility] CT HEAD WO CONon 06-06-2022 CT HEAD [...] Christo SARAVIA Date: 2022-06-06 02:07 Normal [facility] CT LSPINE WO CONon 3 CT LSPINE [...] by: Christo SARAVIA Date: 2022-06-06 02:29 Normal [facility] CTA ABD/PELVIS WO W CONon CTA ABD/PELVIS [...] by: ANISH JACKSON Date: 2022-06-06 04:15 Normal [facility] Covid-19 PCR (CVDTBH)on SARS-CoV-2 (COVID-19) RNA JOSE L+probe Ql (Unsp spec) Not detected Normal NOT DETECTED [facility] Comment on above: Result Comment: When diagnostic [...] for this test is supported by the [employer] Block Saw Operator of Health and Human Service's declaration that [...] used). Performed By: #### C BC #### [facility] [address] [place] [address] Dr. Cammy Cleaning DRUG SCREEN RAPID (URINE)on 06-06-2022 AMP Negative Normal NEGATIVE [facility] Comment on above: Performed By: #### D FLOYD, ERUR #### [facility] [address] [place] [address] Dr. Cammy Cleaning BAR Negative Normal NEGATIVE [facility] Comment on above: Performed By: #### D FLOYD, ERUR #### [facility] [address] [address] [address] Cammy Cleaning BUP Negative Normal NEGATIVE [facility] Comment on above: Performed By: #### D FLOYD, ERUR #### [facility] [address] [place] [address] Dr. Cammy Cleaning BZO Negative Normal NEGATIVE [facility] Comment on above: Performed By: #### D FLOYD, ERUR #### [facility] [address] [place] [address] Dr. Cammy Cleaning JEM Negative Normal NEGATIVE [facility] Comment on above: Performed By: #### D PATRICIAD, ERUR #### [facility] [address] [place] [address] Dr. Cammy Cleaning CUT-OFFS SEE BELOW Normal [facility] Comment on above: Result Comment: AMP (Amphetamine): 500ng/mL, BAR (Barbituates): 200 ng/mL, BZO (Benzodiazepines): 150 ng/mL, BUP (Buprenorphine): 10 ng/mL, JEM (Cocaine): 150 ng/mL, mAMP (Methamphetamine): 500 ng/mL, MTD (Methadone): 200 ng/mL, OPI (Opiates): 100 ng/mL, OXY (Oxycodone): 100 ng/mL, PCP (Phencyclidine): 25 ng/mL, PPX (Propoxyphene): 300 ng/mL, THC (Cannabinoids): 50 ng/mL, TCA (Trycyclic Antidepressants): 300 ng/mL Performed By: #### D RUGMARYLUD, ERUR #### [facility] [address] [place] [address] Dr. Cammy Cleaning DRUG CUT HEADER DRUG CLASS TEST SYSTEM CUT-OFF CONCENTRATIONS ARE FOLLOWS: Normal [facility] Comment on above: Performed By: #### D RUGDESTINI, ERUR #### [facility] [address] [place] [address] Dr. Cammy Cleaning mAMP Negative Normal NEGATIVE [facility] Comment on above: Performed By: #### D PATRICIAD, ERUR #### [facility] [address] [place] [address] Dr. Cammy Cleaning MTD Negative Normal NEGATIVE [facility] Comment on above: Performed By: #### D RUGRPD, ERUR #### [facility] [address] [place] [address] Dr. Cammy Cleaning OPI Positive Abnormal NEGATIVE [facility] Comment on above: Performed By: #### D BERNARDRPD, ERUR #### [facility] [address] [place] [address] Dr. Cammy Cleaning OXY Negative Normal NEGATIVE [facility] Comment on above: Performed By: #### D RUGRPD, ERUR #### [facility] [address] [address] [address] Cammy Cleaning PCP Negative Normal NEGATIVE [facility] Comment on above: Performed By: #### D FLOYD, ERUR #### [facility] [address] [address] [address] Cammy Cleaning PPX Negative Normal NEGATIVE [facility] Comment on above: Performed By: #### D FLOYD, ERUR #### [facility] [address] [place] [address] Dr. Cammy Cleaning TCA Negative Normal NEGATIVE [facility] Comment on above: Performed By: #### D FLOYD, ERUR #### [facility] [address] [place] [address] Dr. Cmamy Cleaning THC Negative Normal NEGATIVE [facility] Comment on above: Performed By: #### D FLOYD, ERUR #### [facility] [address] [place] [address] Dr. Cammy Cleaning ER URINE PROFILEon 3 Bilirubin Ql (U) Negative Normal NEGATIVE [facility] Comment on above: Performed By: #### D FLOYD, ERUR #### [facility] [address] [place] [address] Dr. Cammy Cleaning Clarity (U) CLEAR Normal CLEAR [facility] Comment on above: Performed By: #### D FLOYD, ERUR #### [facility] [address] [place] [address] Dr. Cammy Cleaning Color (U) YELLOW Normal YELLOW [facility] Comment on above: Performed By: #### D FLOYD, ERUR #### [facility] [address] [place] [address] Dr. Cammy Cleaning ERUAHMayda A micrscopic examination will be performed if indicated. Normal [facility] Comment on above: Performed By: #### D FLOYD, ERUR #### [facility] [address] [place] [address] Dr. Cammy Cleaning Glucose Ql (U) >1000 Abnormal NEGATIVE [facility] Comment on above: Performed By: #### D FLOYD, ERUR #### [facility] [address] [place] [address] Dr. Cammy Cleaning Hemoglobin Ql (U) Negative Normal NEGATIVE [facility] Comment on above: Performed By: #### D FLOYD, ERUR #### [facility] [address] [place] [address] Dr. Cammy Cleaning Ketones Ql (U) Negative Normal NEGATIVE [facility] Comment on above: Performed By: #### D FLOYD, ERUR #### [facility] [address] [place] [address] Dr. Cammy Cleaning LEUKOCYTES Negative Normal NEGATIVE [facility] Comment on above: Performed By: #### D FLOYD, ERUR #### [facility] [address] [place] [address] Dr. Cammy Cleaning Nitrite Ql (U) Negative Normal NEGATIVE [facility] Comment on above: Performed By: #### D FLOYD, ERUR #### [facility] [address] [place] [address] Dr. Cammy Cleaning pH (U) 5.0 [pH] Normal 5-9 [facility] Comment on above: Performed By: #### D FLOYD, ERUR #### [facility] [address] [place] [address] Dr. Cammy Cleaning SPEC GRAVITY 1.010 Normal 1.005-<=1.025 [facility] Comment on above: Performed By: #### Mayda BARRIENTOS, ERUR #### [facility] [address] [place] [address] Dr. Cammy Cleaning UA PROTEIN TRACE Normal NEGATIVE/ TRACE [facility] Comment on above: Performed By: #### D FLOYD, ERUR #### [facility] [address] [place] [address] Dr. Cammy Cleaning UR MICRO IND NOT INDICATED Normal [facility] Comment on above: Performed By: #### D FLOYD, ERUR #### [facility] [address] [place] [address] Dr. Cammy Cleaning Urobilinogen Qn (U) 0.2 {Flory'U}/dL Normal 0.2 - 1. 0 [facility] Comment on above: Performed By: #### D RUGRPD, ERUR #### [facility] [address] [address] [address] Cammy Cleaning ETHANOL (BLD ALC)on 06-06-19 ALC NOTE NOTE: 80 mg/dl is th e legal limit for a blood alcohol level Normal [facility] Comment on above: Performed By: #### A CARLOS STEVE, KAIELY ####[facility] [id number] [address]Dr. Cammy Cleaning Ethanol [Mass/Vol] mg/dL Normal [facility] Comment on above: Performed By: #### A CARLOS STEVE, KAILEY ####[facility] [id number] [address]Dr. Cammy Cleaning POINT OF CARE GLUCOSEon Glucose [Mass/Vol] 180 mg/dL Critically high -106 [facility] [place] [facility] Comment on above: Performed By: #### P OCGLUC #### [facility] [address] [address] [address] Cammy Cleaning Glucose [Mass/Vol] 133 mg/dL Critically high [address] [place] [address] Comment on above: Performed By: #### C BC #### [facility] [address] [address] [address] Cammy Cleaning Glucose [Mass/Vol] 201 mg/dL Critically high [address] [place] [address] Comment on above: Performed By: #### C BC #### [facility] [address] [address] [address] Cammy Cleaning Glucose [Mass/Vol] 112 mg/dL Critically high [address] [place] [address] Comment on above: Performed By: #### P OCGLUC #### [facility] [address] [address] [address] Cammy Cleaning PROF CHEM 8 (BAS METB)on Anion gap [Moles/Vol] 6.7 mmol/L Normal [facility] Comment on above: Performed By: #### C BC #### [facility] [address] [address] [address] Cammy Cleaning Calcium [Mass/Vol] 8.7 mg/dL Normal 8.5-10.1 [facility] Comment on above: Performed By: #### C BC #### [facility] [address] [address] [address] Cammy Cleaning Chloride [Moles/Vol] 102 mmol/L Normal 98-107 [facility] Comment on above: Performed By: #### C BC #### [facility] [address] [place] [address] Dr. Cammy Cleaning CO2 [Moles/Vol] 35.6 mmol/L Critically high 21.0-32.0 [facility] Comment on above: Performed By: #### C BC #### [facility] [address] [place] [address] Dr. Cammy Cleaning Creatinine [Mass/Vol] 0.93 mg/dL Normal 0.55-1.02 [facility] Comment on above: Performed By: #### C BC #### [facility] [address] [place] [address] Dr. Cammy Cleaning EGFR-AF BAHAMIAN >60 Normal >=60 [facility] Comment on above: Performed By: #### C BC #### [facility] [address] [place] [address] Dr. Cammy Cleaning EGFR-NON AF BAHAMIAN >60 Normal >=60 [facility] Comment on above: Performed By: #### C BC #### [facility] [address] [address] [address] Cammy Cleaning Glucose [Mass/Vol] 169 mg/dL Critically high 74-106 [facility] [place] [facility] Comment on above: Performed By: #### C BC #### [facility] [address] [place] [address] Dr. Cammy Cleaning Potassium [Moles/Vol] 4.3 mmol/L Normal 3.5-5.1 [facility] Comment on above: Performed By: #### C BC #### [facility] [address] [place] [address] Dr. Cammy Cleaning Sodium [Moles/Vol] 140 mmol/L Normal 136-145 [facility] Comment on above: Performed By: #### C BC #### [facility] [address] [place], [place] [address] Dr. Cammy Cleaning Urea nitrogen [Mass/Vol] 15.0 mg/dL Normal 7.0-18.0 [facility] Comment on above: Performed By: #### C BC #### [facility] [address] [place], [place] [address] Dr. Cammy Cleaning Urea nitrogen/Creatinine [Mass ratio] 16.1 mg/mg Normal [facility] Comment on above: Performed By: #### C BC #### [facility] [address] [place], [place] [address] Dr. Cammy Cleaning SALICYLATEon 06-06-2022 SALICYLATE 1.6 mg/dL Normal <=19.9 [facility] Comment on above: Performed By: #### A CET, CARLOS, ETH ####[facility] [id number] [employer], [place] [address]Dr. Cammy Cleaning XR CHEST 1 Von 06-06-2022 [...] by: CELESTE LUNA Date: 2022-06-06 02:58 Normal [facility] MRI KNEE LT WO CONon 022 MRI [...] by: BURT FIGUEROA Date: 2022-05-10 15:59 Normal [facility] Progress Noteson 01-25-2022 Helpdesk Specialist Authentication Interface Message Text EMERGENCY TRIAGE, TREAT AND TRANSPORT (ET3) DOCUMENTATION OF TELEHEALTH VISIT Date / Time: 01/14/2022729 Name: Sanna Corrales : 1960 SSN: (Not on file) EMS Agency: [facility] [] Verbal consent obtained [] Implied consent - patient with potential emergency medical condition requiring assessment of capacity to refuse treatment and/or transport VITAL SIGNS: see flowsheet documentation Reason for Telehealth Visit: Chief Complaint Patient presents with Fall History of Present Ilness: 61 yo female who tripped over her small dog in the [facility]. EMS called for lift assist. No [...] Completed by: Tyler Ingram DO Normal [facility] XR CSPINE 2_3 VIEWSon 2021 XR [...] by: CHRISTEN BAKER Date: 2022-01-04 19:[address] [facility] [address] SINUSES WO CONon 11-23-19 CT SINUSES WO CON EXAMINATION: CT SINUSES [...] by: ANISH ROJO Date: 2021-11-22 13:29 Normal [facility] Vital Signs Date Time Vital Sign Value Performing Clinician Facility 04-17-2024 13:44-0500 Body mass index (BMI) [Ratio] 53.12 kg/m2 Yarelis Daily-Nossek HUMAN RESOURCES CONSULTANT-DIRECTOR OF MOBILE MARKETING Work Phone: [facility] 04-17-2024 13:44-0500 Body weight 123.38 kg Yarelis Daily-Nossek HUMAN RESOURCES CONSULTANT-DIRECTOR OF MOBILE MARKETING Work Phone: [facility] 04-17-2024 13:44-0500 Diastolic blood pressure 72 mm[Hg] Yarelis Daily-Nossek HUMAN RESOURCES CONSULTANT-DIRECTOR OF MOBILE MARKETING Work Phone: [facility] 04-17-2024 13:44-0500 Heart rate 71 /min Yarelis Daily-Nossek HUMAN RESOURCES CONSULTANT-DIRECTOR OF MOBILE MARKETING Work Phone: [facility] 04-17-2024 13:44-0500 SaO2% (BldA) [Mass fraction] 91 % Yarelis Daily-Nossek HUMAN RESOURCES CONSULTANT-DIRECTOR OF MOBILE MARKETING Work Phone: [facility] 04-17-2024 13:44-0500 Systolic blood pressure 116 mm[Hg] Yarelis Daily-Nossek HUMAN RESOURCES CONSULTANT-DIRECTOR OF MOBILE MARKETING Work Phone: [facility] 03-27-2024 15:05-0400 Body height 152.4 cm Erin Hemmer PA Work Phone: [facility] 03-27-2024 15:05-0400 Body mass index (BMI) [Ratio] 52.97 kg/m2 Erin Hemmer PA Work Phone: [facility] 03-27-2024 15:05-0400 Body weight 123.02 kg Erin Hemmer PA Work Phone: [facility] 03-27-2024 15:05-0400 Diastolic blood pressure 84 mm[Hg] Erin Hemmer PA Work Phone: [facility] 03-27-2024 15:05-0400 Heart rate 50 /min Erin Hemmer PA Work Phone: [facility] 03-27-2024 15:05-0400 Respiratory rate 18 /min Erin Tariq PA Work Phone: [facility] 03-27-2024 15:05-0400 SaO2% (BldA) [Mass fraction] 96 % Erin Tariq PA Work Phone: [facility] 03-27-2024 15:05-0400 Systolic blood pressure 128 mm[Hg] Erin Tariq PA Work Phone: [facility] 03-14-2024 09:55-0400 Body mass index (BMI) [Ratio] 53.51 kg/m2 Yarelis Daily-Nossek HUMAN RESOURCES CONSULTANT-DIRECTOR OF MOBILE MARKETING Work Phone: [facility] 03-14-2024 09:55-0400 Body weight 124.29 kg Yarelis Daily-Nossek HUMAN RESOURCES CONSULTANT-DIRECTOR OF MOBILE MARKETING Work Phone: [facility] 03-14-2024 09:55-0400 Diastolic blood pressure 82 mm[Hg] Yarelis Daily-Nossek HUMAN RESOURCES CONSULTANT-DIRECTOR OF MOBILE MARKETING Work Phone: [facility] 03-14-2024 09:55-0400 Heart rate 72 /min Yarelis Daily-Nossek HUMAN RESOURCES CONSULTANT-DIRECTOR OF MOBILE MARKETING Work Phone: [facility] 03-14-2024 09:55-0400 SaO2% (BldA) [Mass fraction] 85 % Yarelis Daily-Nossek HUMAN RESOURCES CONSULTANT-DIRECTOR OF MOBILE MARKETING Work Phone: [facility] 03-14-2024 09:55-0400 Systolic blood pressure 134 mm[Hg] Yarelis Daily-Nossek HUMAN RESOURCES CONSULTANT-DIRECTOR OF MOBILE MARKETING Work Phone: [facility] 01-25-2022 11:40-0400 Diastolic blood pressure 82 mm[Hg] [facility] 01-25-2022 11:40-0400 Heart rate 76 /min [facility] 01-25-2022 11:40-0400 Respiratory rate 20 /min [facility] 01-25-2022 11:40-0400 SaO2% (BldA) [Mass fraction] 94 % [facility] Comment on above: ra 01-25-2022 11:40-0400 Systolic blood pressure 123 mm[Hg] [facility] Encounters Encounter Date Encounter Type Care Provider Facility Start: 04-17-2024 End: 04-17-2024 Bamboo flowsheet Yarelis [place] Daily-Nossek HUMAN RESOURCES CONSULTANT-DIRECTOR OF MOBILE MARKETING Work Phone: [facility] Start: 04-17-2024 End: 04-17-2024 Bamboo flowsheet Yarelis aVil Daily-Nossek HUMAN RESOURCES CONSULTANT-DIRECTOR OF MOBILE MARKETING Work Phone: [facility] Start: 04-17-2024 End: 04-17-2024 Office outpatient visit 40 minutes Yarelis [place] Daily-Nossek HUMAN RESOURCES CONSULTANT-DIRECTOR OF MOBILE MARKETING Work Phone: [facility] Comment on above: JENN (generalized anx iety disorder) ([facility]) Start: 04-17-2024 End: 04-17-2024 ambulatory YARELIS Yared DAILY-NOSSEK Not Available Start: 04-15-2024 End: 04-15-2024 ambulatory Divya Alfaro MD Facility:[facility] Start: 03-28-2024 End: 03-28-2024 Fiorella Baca DO Work Phone: [facility] Comment on above: Age-related nuclear cataract of both eyes Start: 03-27-2024 End: 03-27-2024 Office outpatient visit 25 minutes Erin Tariq PA Work Phone: [facility] Comment on above: Type 2 diabetes torsten itus with other specified complication, without long-term current use of insulin ([facility]) (Primary Dx); Limitation of activities [...] 03-25-2024 End: 03-25-2024 ambulatory Divya Alfaro MD Facility:[facility] Start: 03-14-2024 End: 03-14-2024 Bamboo flowsheet Yarelis Vail Daily-Nossek HUMAN RESOURCES CONSULTANT-DIRECTOR OF MOBILE MARKETING Work Phone: [facility] Start: 03-14-2024 End: 03-14-2024 Bamboo flowsheet Yarelis Vail Daily-Nossek HUMAN RESOURCES CONSULTANT-DIRECTOR OF MOBILE MARKETING Work Phone: [facility] Start: 03-14-2024 End: 03-14-2024 Office outpatient new 60 minutes Yarelis Vail Daily-Nossek HUMAN RESOURCES CONSULTANT-DIRECTOR OF MOBILE MARKETING Work Phone: [facility] Comment on above: Mixed bipolar affect nickie disorder, moderate (CMS/HCC); JENN (generalized anxiety disorder) (CMS/HCC) Start: 03-14-2024 End: 03-14-2024 ambulatory YARELIS Vail DAILY-NOSSEK Not Available Start: 02-21-2024 End: 02-21-2024 ambulatory [...] Not Available Start: 05-09-2023 ambulatory Pratik Ramos acility:[facility] Start: 09-01-2022 ambulatory NARENDRANATH LAKSHMIPATHY . Facility:[facility] Start: 08-23-2022 End: 08-23-2022 ambulatory NARENDRANATH LAKSHMIPATHY . Facility:[facility] Start: 07-28-2022 End: 07-29-2022 ambulatory NARENDRANATH LAKSHMIPATHY . Facility:[facility] Start: 07-26-2022 End: 07-27-2022 ambulatory NARENDRANATH LAKSHMIPATHY . Facility:[facility] Start: 07-11-2022 End: 07-12-2022 ambulatory CHRISTEN SAMUEL Facility:[facility] Start: 06-06-2022 End: 06-08-[address] JER RIZO Facility:[facility] Start: 05-10-2022 End: 05-11-2022 ambulatory MR TYLER ESTRADA . Facility:[facility] Start: 01-25-2022 End: 02-02-2022 ambulatory UNKNOWN PROVIDER Facility:[facility] Start: 01-14-2022 End: 01-14-2022 ambulatory [facility] T[facility], Treat and Transport Start: 01-14-2022 End: 01-14-2022 Emergency department patient visit [facility] Triage, Treat and Transport Comment on above: Arrived Start: 01-04-2022 End: 01-05-[address] JER RIZO Facility:[facility] Start: 11-22-2021 End: 11-23-[address] ERIN TARIQ Facility:[facility] Procedures Date Procedure Procedure Detail Performing Clinician Start: 03-27-2024 Hemoglobin glycosyla sachin a1c Erin Tariq PA Work Phone: Start: 05-17-2023 Mammography Erin Rodriguez er PA Work Phone: Start: 11-16-2015 Colonoscopy Erin Rodriguez er PA Work Phone: Plan of Treatment Date Care Activity Detail Author Start: 11-27-2025 Glaucoma screening Diabetes: R etinopathy Screening [facility] Start: 11-15-2025 Screening for malign ant neoplasm of colon [facility] Start: 01-26-2025 Glaucoma screening Diabetes: R etinopathy Screening [facility] Start: 12-05-2024 Medicare Annual Wellness (AWV) Medicare Annual Wellness (AWV) [facility] Start: 06-27-2024 Hemoglobin A1c measurement Diabetes: Hemoglobin A1C [facility] Start: 05-17-2024 Screening for malign ant neoplasm of breast Mammogram [facility] Start: 05-15-2024 End: 05-15-2024 Patient encounter procedure 05/15/2024 1:30 PM EST Office Visit [facility] [address] [facility] [address] [place] [address] Yarelis Gallardo, [facility] [address] [place] [address] [facility] Start: 04-17-2024 End: 04-17-2024 Patient encounter procedure [facility] Comment on above: Arrived Start: 04-11-2024 End: 04-11-2024 Professional / ancillary services management 04/11/2024 2:00 PM EST Ancillary Procedure [facility] [address] [place] [phone] [facility] Start: 03-27-2024 End: 03-27-2024 Patient encounter procedure 03/27/2024 3:00 PM EDT Office Visit [facility] [address] [facility] [address] [place] [address] Erin Tariq PA [address] [place] [address] Arrived [facility] Comment on above: Arrived Start: 03-27-2024 End: 03-27-2025 Microalbumin/Creatinine panel in random Urine Microalbumin / creatinine, urine ratio Lab Routine Type 2 diabetes mellitus with other specified complication, without long-term current use of insulin ([facility]) Expected: 03/27/2024 (Approximate), Expires: 03/27/2025 [facility] Work Phone: Comment on above: Expected: 03/27/2024 (Approximate), Expires: 03/27/2025 Start: 03-25-2024 End: 03-25-2024 Patient encounter procedure 03/25/2024 1:00 PM EDT Office Visit [facility] [address] [place] [address] Erin Tariq PA [address] [place] [address] [facility] Start: 03-23-2024 Urine screening for protein Diabetes: Urine Protein Screening [facility] Start: 03-22-2024 Medicare Annual Wellness (AWV) Medicare Annual Wellness (AWV) [facility] Start: 03-14-2024 End: 03-14-2024 Patient encounter procedure 03/14/2024 9:30 AM EDT Office Visit [facility] [address] [place] [address] Yarelis Gallardo, [facility] [address] [place] [address] Arrived [facility] Comment on above: Arrived Start: 03-07-2024 Hemoglobin A1c measurement Diabetes: Hemoglobin A1C [facility] Start: 07-18-2023 End: 07-18-2023 Patient encounter procedure 07/18/2023 2:15 PM EST Office Visit [facility] [address] [place] [phone] Swathi Baca DO [address] [place] [address] [facility] Start: 07-05-2023 End: 07-05-2023 Patient encounter procedure 07/05/2023 2:00 PM EST Office Visit [facility] [address] [place] [address] Erin Tariq PA [address] [place] [address] [facility] Start: 06-22-2023 Hemoglobin A1c measurement Diabetes: Hemoglobin A1C [facility] Start: 02-26-2022 Influenza vaccination Influenza Vacc ine (#1) [facility] Start: 2011 Measurement of occul t blood in single stool specimen [facility] Start: 2011 Screening for malign ant neoplasm of breast [facility] Start: 2011 Screening for malign ant neoplasm of colon CRC Screening [facility] Start: 2011 Shingles (RZV) Vacci ne (1 of 2) Shingles (RZV) Vaccine (1 of 2) [facility] Start: 2006 Cholesterol [Mass/volume] in Serum or Plasma Cholesterol [facility] Start: 1991 Screening for malign ant neoplasm of cervix [facility] Start: 1982 Screening for malign ant neoplasm of cervix Pap Smear [facility] Start: 1979 Hepatitis C screening Hepatitis C An tibody [facility] Start: 1979 Tetanus + diphtheria + acellular pertussis vaccine (product) Tdap Booster [facility] Start: 1976 HIV screening HIV [facility] Start: 1961 COVID-19 Vaccine (#1) COVID-19 Vacci ne (#1) [facility] Start: 1961 Screening for malign ant neoplasm of colon [facility] Immunizations Immunization Date Immunization Notes Care Provider [facility] 02-21-2024 influenza, seasonal, injectable, preservative free Yarelis Daily-Nossek HUMAN RESOURCES CONSULTANT-DIRECTOR OF MOBILE MARKETING Work Phone: [facility] 12-06-2023 tetanus toxoid, redu aimee diphtheria toxoid, and acellular pertussis vaccine, adsorbed Yarelis Daily-Nossek HUMAN RESOURCES CONSULTANT-DIRECTOR OF MOBILE MARKETING Work Phone: [facility] 04-13-2023 Influenza, injectabl e, Madin Andria Canine Kidney, preservative free, quadrivalent Yarelis Daily-Nossek HUMAN RESOURCES CONSULTANT-DIRECTOR OF MOBILE MARKETING Work Phone: [facility] 04-13-2023 RSV, recombinant, pr otein subunit RSVpreF, adjuvant reconstitu, 120mcg/0.5mL, PF (Arexvy) Yarelis Gallardo HUMAN RESOURCES CONSULTANT-DIRECTOR OF MOBILE MARKETING Work Phone: [facility] 06-13-2022 Pneumococcal Conjuga te PCV 20 Erin Hemmer PA Work Phone: [facility] 03-31-2022 Influenza, injectabl e, Madin Andria Canine Kidney, preservative free, quadrivalent Erin Hemmer PA Work Phone: [facility] 03-24-2021 influenza, injectabl e, quadrivalent, contains preservative Erin Hemmer PA Work Phone: [facility] 03-10-2020 Influenza, injectabl e, Madin [place] Canine Kidney, preservative free, quadrivalent Erin Hemmer PA Work Phone: [facility] 03-12-2019 influenza, injectabl e, madin andria canine kidney, preservative free Erin Hemmer PA Work Phone: [facility] 04-06-2018 Influenza, injectabl e, Madin [place] Canine Kidney, preservative free, quadrivalent Erin Hemmer PA Work Phone: [facility] 02-21-2017 pneumococcal polysaccharide vaccine, 23 valent Erin Hemmer PA Work Phone: [facility] 02-21-2017 seasonal influenza, intradermal, preservative free Erin Hemmer PA Work Phone: [facility] 04-19-2016 influenza, injectabl e, quadrivalent, preservative free Erin Hemmer PA Work Phone: [facility] 02-04-2015 seasonal influenza, intradermal, preservative free Erin Hemmer PA Work Phone: [facility] 03-25-2008 seasonal influenza, intradermal, preservative free Erin Hemmer PA Work Phone: [facility] Payers Date Payer Category Payer Medicare (Managed Care) [facility] [id number] 2023 Private Health Insurance [facility] 2] [id number] 2023 Unknown [id number] 2023 Unknown [id number] 2022 Self-pay 2022 Medicare [id number] 2022 Unknown SP/UNINSURED PEN DING FINANCIAL PROGRAM EVALUATION 9 2022-Present [phone] [address] [place] [address] Other [id number] 2022 Unknown 9 2021 Unknown [id number] 1961 Unknown [id number] 2.16.840.1.949772.3.579. 2.732 1961 Unknown [id number] 2.16.840.1.316532.3.579. 2.593 1961 Unknown [id number] 2.16.840.1.640945.3.579. 2.593 1961 Unknown [id number] 2.16.840.1.214473.3.579. 2.593 1961 Unknown [id number] 2.16.840.1.932209.3.579. 2.593 1961 Unknown [id number] 2.16.840.1.514742.3.579. 2.593 1961 Unknown [id number] 2.16.840.1.658456.3.579. 2.593 1961 Unknown [id number] 2.16.840.1.817586.3.579. 2.593 1961 Unknown [id number] 2.16.840.1.943212.3.579. 2.593 1961 Unknown [id number] 2.16.840.1.629348.3.579. 2.593 1961 Unknown [id number] 2.16.840.1.293348.3.579. 2.196 1961 Unknown [id number] 2.16.840.1.573655.3.579. 2.196 1961 Unknown [id number] 2.16.840.1.087398.3.579. 2.1259 1961 Unknown [id number] 2.16.840.1.614719.3.579. 2.1259 1961 Unknown [id number] 2.16.840.1.387589.3.579. 2.1259 1961 Unknown [id number] 2.16.840.1.620054.3.579. 2.1259 1961 Unknown [id number] 2.16.840.1.551184.3.579. 2.1259 1961 Unknown [id number] 2.16.840.1.910539.3.579. 2.1259 1961 Unknown [id number] 2.16.840.1.418522.3.579. 2.1259 1961 Unknown [id number] 2.16.840.1.811147.3.579. 2.1259 1961 Unknown [id number] 2.16.840.1.409297.3.579. 2.1259 1961 Unknown [id number] 2.16.840.1.235946.3.579. 2.1259 1961 Unknown [id number] 2.16.840.1.016935.3.579. 2.1259 Unknown [id number] 2.16.840.1.839598.3.579. 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 status IDIS Toba buyer tobacco head smoking consumption unknown [facility] Start: 1960 Sex Assigned At [facility] on file [facility] Start: 01-02-2023 Tobacco smoking status IDIS Never sm oked tobacco [facility] Start: 01-02-2023 Tobacco use and exposure Smoke less tobacco non-user [facility] Start: 03-22-2023 End: 04-17-2024 Alcohol intake Ex-drinker (finding) [facility] Start: [...] Identifier Dates Check blood gluc ose daily [id number] Start: 03-22-2023 End: 03-21-2024 1 each in the morning. Check blood glucose daily.. [id number] Start: 03-22-2023 Goals Date Patient Goal Desired Activity /State Personal health goal Clinical Notes 01-25-2022 to 04-17-2024 [facility] - 04/17/2024 1:30 PM TEETEE Sequeira - 03/27/2024 3:00 PM Ritu [facility] - 03/14/2024 9:30 AM Sidney Cruz - 03/14/2024 9:30 AM EDT Note Date & Type Note Facility 04-17-2024 History of Present illness Narrative Images from the original note were not included. Sanna Corrales is a 64 y.o. female presents for Medication Management. HPI: Patient is here for medication follow up. Patient has decompensated since last appt. States has been more crabby. Feels overwhelmed with Just dont want to be here. Wouldn't hurt self. I feel hopeless. It seems like having harder time with everything. I dont enjoy life. 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 She needs help caring for herself. We lowered her vraylar due to tremors and has helped. Lives with her sister. Easily agitated. Mood is reported as depressed and rates 8 (10worst). Anxiety is 8 (10worst) Sleeping 6 hours. Tosses and turns. Medication compliant. No reported side effects. Denies abuse of substances. Medical problems since last visit. Respiratory distress. Psychosocial stressors include feels like things are chaotic. SUBJECTIVE: PAST MEDICAL HISTORY: Past Medical History: Diagnosis Date Abnormal finding on radiological examination of breast Adult respiratory distress syndrome ([facility]) 2014 Allergic Allergic rhinitis due to allergen Arthritis Asthma ([facility]) Bipolar 1 disorder ([facility]) 1991 most recent episode (or current) depressed, unspecified Bronchitis Calculus of gallbladder without mention of cholecystitis or obstruction Carpal tunnel syndrome left Cataract Cholecystitis Closed fracture of ankle Congenital heart failure ([facility]) COPD (chronic obstructive pulmonary disease) ([facility]) Degeneration of lumbar or lumbosacral intervertebral disc Diabetes mellitus ([facility]) without mention of complication, type II or unspecified type, not stated as uncontrolled Disease of thyroid gland ([facility]) Dry eyes Essential hypertension, benign ([facility]) Essential hypertension, malignant ([facility]) Extremity ischemia 2013 rt lower Fracture ankle Headache Hernia of abdominal wall without mention of obstruction or gangrene History of being hospitalized 06/06/2022 AMS due to Med Overuse, Hypoxia, Fall, Acute on Chronic RF Hx of migraine headaches Hypertension ([facility]) Hypothyroidism ([facility]) IBS (irritable bowel syndrome) Influenza with pneumonia Manic episode ([facility]) 1985 Meniere disease Morbid obesity ([facility]) Myalgia and myositis Osteoarthritis Osteoporosis ([facility]) Personal history of medical treatment 2013 cardiopulmonary collapse and acute respiratory failure( Respiratory failure ([facility]) Rheumatoid arthritis ([facility]) Rotator cuff tear right Skin lesion Spondylosis unspecified site without mention of myelopathy Suicidal ideations 2012 Thyroid disease ([facility]) ALLERGIES: Allergies Allergen Reactions Ambien [Zolpidem] Other Terrible nightmares Cefdinir Hives Ibandronic Acid Hives Nabumetone Other Reaction(s): PT DOESN'T REMEMBER Penicillin G Other Reaction(s): fever, hives Sulfanilamide Other Reaction(s): Fever,hives Zoloft [Sertraline] Unusual behaviors SURGICAL HISTORY: Past Surgical History: Procedure Laterality Date BIOPSY SKIN SUBCUTANEOUS TISSUE 2013 removal/ biopsy;Disease:abnormal skin lesion BREAST BIOPSY 2011 BRONCHOSCOPY 2013 CARDIAC CATHETERIZATION 2011 CARPAL TUNNEL RELEASE Left 2008 CHOLECYSTECTOMY 2011 ECHO 2014 EMBOLECTOMY 2014 right femoral artery OTHER SURGICAL HISTORY 2013 percutaneous cannulation of right femerol artery/v;Disease:cardiopulmonary collapse and acute respiratory failure OTHER SURGICAL HISTORY ORIF MS KNEE SCOPE,DIAGNOSTIC Right 02/04/2020 Dr. Cheek ROTATOR CUFF REPAIR Right 2007 STRESS TEST EXERCISE 2010 lexiscan TONSILLECTOMY FAMILY HISTORY: Family History Problem Relation Name Age of Onset Hypertension Mother Cancer Mother Crohn's disease Mother Heart disease Father Mental illness Father Cancer Father Depression Father Hyperlipidemia Father Irritable bowel syndrome Father Lung cancer Sister SOCIAL HISTORY: Social History Tobacco Use Smoking status: Never Smokeless tobacco: Never Vaping Use Vaping status: Never Used Substance Use Topics Alcohol use: Not Currently Comment: Caffeine intake: 1-2 cups per day coffee, tea Drug use: Never Depression: Not at risk (12/06/2023) PHQ-2 PHQ-2 Score: 2 REVIEW OF SYMPTOMS - MENTAL STATUS EXAM Appearance Appearance: Casual dress, normal grooming and hygiene Attitude Attitude: Cooperative, conversant, engaged, and with good eye contact. Behavior Cooperative, conversant, engaged, and with good eye contact. Speech Normal, clear, regular rate, rhythm and volume Affect Constricted Mood Depressed, Anxious, and irritable Thought Process Organized and Clear Thought Content No Suicidal Ideation and No Homicidal ideation Perception No perceptual abnormalities noted Orientation Appropriate to age, Person, Place, and Time Memory/Concentration Short term intact and mother helper intact Insight/Judgement Fair OBJECTIVE: Visit Vitals Smoking Status Never No results found for: TSH Lab Results Component Value Date GLU 238 (HH) 08/23/2022 CALCIUM 9.4 11/03/2020 NA 141 06/07/2022 K 3.9 06/07/2022 CO2 30 11/03/2020 BUN 11.0 06/07/2022 CREATININE 0.80 06/07/2022 Lab Results Component Value Date WBC 10.9 06/07/2022 No results found for: CHOL No results found for: HDL No results found for: LDLCALC No results found for: TRIG ASSESSMENT AND PLAN: Assessment/Plan Impression This is a 64-year-old female who is here to establish psychiatric care for the treatment of her bipolar disorder. Patient was previously a patient of Dr. Parekh at [facility]. Patient had also seen Dr. Huddleston [...] Bipolar disorder most recent Mixed JENN Plan Cymbalta 120mg po -discussed decreasing in the future. Lamictal 225 mg nightly- bipolar depression Trazodone 100mg 2 tabs nightly Vraylar 3mg po every day ;Patient states the previous psychiatrist had plan to decrease Vraylar due to complaints of tremors. Buspar decrease to 10mg twice a day for one week Iosv2cl twice a day week Then 5mg once a day for week then discontinue Add vistaril 25mg q 8hours prn for anxiety Refer to Psychotherapy Patient was seen Face to Face, Reviewed chart documents and documentation, Visit time :40min F/U 6 weeks documented in this encounter [facility] 03-27-2024 History of Present illness Narrative Images from the original note [...] a 64 y.o. female who presents for [facility] ER follow up. Flowsheet Row Patient Outreach from 03/26/2024 in [facility] with Octavia Monday, LATASHA Hospital Information ED, Hospital or Fdc Facility Discharge? ED Patient has been contacted within 1 week of being seen in the ED No Have two attempts been made to contact the patient within one week of being seen in the ED? No Discharge Date 03/18/24 Discharged To: Home Setting Discharge Hospital [facility] Engagement Call Start Time 1030 Admission Date [...] Suppl device USE DIRECTED 100 strip 2 Nnicjhb-Evopwfdncyx-Flsxkfpigt (Breztri Aerosphere) 160-9-4.8 MCG/ACT aerosol Inhale 2 [...] blood glucose daily 100 each 3 HYDROcodone-acetaminophen (Jamieson) 5-325 MG tablet Take 1 tablet by [...] NEEDED 7 DAY(S) 30 g 2 [DISCONTINUED] qndpppfg-xbfpwrfow-qnjnabzyaepvvv (Cortisporin) 3.5-90491-2 otic suspension USE 3 DROPS IN EACH [...] examination of breast Adult respiratory distress syndrome (CMS/HCC) 2014 Allergic Allergic rhinitis due to allergen Arthritis Asthma (CMS/HCC) Bipolar 1 disorder ([facility]) 1992 most recent episode (or current) depressed, unspecified Bronchitis Calculus of gallbladder without mention of cholecystitis or obstruction Carpal tunnel syndrome left Cataract Cholecystitis Closed fracture of ankle Congenital heart failure (CMS/HCC) COPD (chronic obstructive pulmonary disease) ([facility]) Degeneration of lumbar or lumbosacral intervertebral disc Diabetes mellitus ([facility]) without mention of complication, type II or unspecified type, not stated as uncontrolled Disease of thyroid gland (CMS/HCC) Dry eyes Essential hypertension, benign (CMS/HCC) Essential hypertension, malignant (CMS/[facility]) Extremity ischemia 2014 rt lower Fracture ankle Headache Hernia of abdominal wall without mention of obstruction or gangrene History of being hospitalized 06/06/2022 AMS due to Med Overuse, Hypoxia, Fall, Acute on Chronic RF Hx of migraine headaches Hypertension ([facility]) Hypothyroidism (CMS/[facility]) IBS (irritable bowel syndrome) Influenza with pneumonia Manic episode ([facility]) 1985 Meniere disease Morbid obesity ([facility]) Myalgia and myositis Osteoarthritis Osteoporosis ([facility]) Personal history of medical treatment 2013 cardiopulmonary collapse and acute respiratory failure( Respiratory failure ([facility] [facility]) Rheumatoid arthritis ([facility]) Rotator cuff tear right Skin lesion Spondylosis unspecified site without mention of myelopathy Suicidal ideations 2012 Thyroid disease ([facility]) Past Surgical History: Procedure Laterality Date BIOPSY SKIN SUBCUTANEOUS TISSUE 2013 removal/ biopsy;Disease:abnormal skin lesion BREAST BIOPSY 2011 BRONCHOSCOPY 2013 CARDIAC CATHETERIZATION 2011 CARPAL TUNNEL RELEASE Left 2008 CHOLECYSTECTOMY 2011 ECHO 2014 EMBOLECTOMY 2014 right femoral artery OTHER SURGICAL HISTORY 2013 percutaneous cannulation of right femerol artery/v;Disease:cardiopulmonary collapse and acute respiratory failure OTHER SURGICAL HISTORY ORIF MS KNEE SCOPE,DIAGNOSTIC Right 02/04/2020 Dr. Cheek ROTATOR [...] complication, without long-term current use of insulin ([facility]) - POCT Glycated hemoglobin, total [...] last 3-4 months. Patient had Colonoscopy in 2015 that did show a polyp, was told [...] 06/27/2024) for Diabetes. documented in this encounter [facility] 03-14-2024 History of Present illness Narrative NEW PATIENT PSYCHIATRIC EVALUATION This is a 64-year-old female who is here to establish psychiatric care for the treatment of her bipolar disorder. Patient was previously a patient of Dr. Parekh at [facility]. Patient had also seen Dr. Huddleston [...] suffers from alcoholism. Her Brother is a administrative office specialist and denies any mental health problems. Denies Hx of Substance abuse. Frequency of Alcohol on special occasions. Marijuana use denies. Legal hx denies. Patient is no children. Worked at [employer]. Lives with her sister. Stressors: Patient states [...] previously a patient of Dr. Parekh at [facility]. Patient had also seen Dr. Huddleston [...] is drinking again. documented in this encounter [facility] 07-26-2022 Note PAIN MANAGEMENT CONS ULTATION CONSULTATION [...] purpose. I have decreased the use of Jamieson from q. 6 hours to q.i.d., 5 mg pills, to be taken as tolerated, and to increase the baclofen 10 mg pill, one pill t.i.d. also as tolerated. Went over the details of the procedure with the patient. All her questions were answered. She agrees to proceed with the outlined plan. [facility] 06-06-2022 Note PROCEDURE: XR SHOULD ER RT [...] authenticated by: BURT FIGUEROA Date: 2022-06-06 13:36 [facility] 01-25-2022 History of Present illness Narrative Images from the original note were not included. EMERGENCY TRIAGE, TREAT AND TRANSPORT (ET3) DOCUMENTATION OF TELEHEALTH VISIT Date / Time: 01/14/2022729 Name: Sanna Corrales : 1960 SSN: (Not on file) EMS Agency: [facility] [] Verbal consent obtained [] Implied consent - patient with potential emergency medical condition requiring assessment of capacity to refuse treatment and/or transport VITAL SIGNS: see flowsheet documentation Reason for Telehealth Visit: Chief Complaint Patient presents with Fall History of Present Ilness: 61 yo female who tripped over her small dog in the [facility]. EMS called for lift assist. No [...] documented in this encounter [facility] note Diagnosis Fall, initial encounter- Primary [facility]* Diagnosis Mixed bipolar affective disorder, moderate (CMS/HCC) Bipolar I disorder, most recent episode (or current) mixed, moderate JENN (generalized anxiety disorder) (CMS/HCC) Generalized anxiety disorder [facility] Diagnosis Type 2 diabetes mellitus with other specified complication, without long-term current use of insulin ([facility])- Primary Limitation of activities due to disability Chronic sinusitis, unspecified location Abnormality of gait due to impairment of balance Lumbar radiculopathy Thoracic or lumbosacral neuritis or radiculitis, unspecified Chronic diarrhea Diarrhea History of falling Bilateral primary osteoarthritis of knee [facility] Diagnosis Age-related nuclear cataract of both eyes [facility]* Diagnosis JENN (generalized anxiety disorder) ([facility]) Generalized anxiety disorder documented in [...] Farxiga and Tradjenta. Reason Comments Med Refill Reason Comments Med Management Follow-up INFORMATION SOURCE (unrecogn ized section and content) DATE CREATED AUTHOR 02/03/2022 [facility] DATE CREATED AUTHOR AUTHOR'S ORGANIZ ATION 08/31/2022 [facility] DATE CREATED AUTHOR AUTHOR'S ORGANIZ ATION 08/04/2023 [facility] DATE CREATED AUTHOR AUTHOR'S ORGANIZ ATION 04/20/2024 [facility] DATE CREATED AUTHOR AUTHOR'S ORGANIZ ATION 04/20/2024 [facility] EPIC Care Teams (unrecognized sec tion and content) Hearing And Speech Assistant Relationship Specialty Start Date End Date Jer Rizo MD [address] [facility] [address] [place] [address] PCP - General Internal Medicine 01/03/23 Jer Rizo MD [address] [facility]ando [address] [place] [address] PCP - Devoted 05/29/23 Hearing And Speech Assistant Relationship Specialty Start Date End Date Jer Rizo MD [address] Jose [facility]ando [address] [place] [address] PCP - General Internal Medicine 01/03/23 Jer Rizo MD [address] [facility] [address] [place] [address] PCP - Devoted 05/29/23 Hearing And Speech Assistant Relationship Specialty Start Date End Date Jer Rizo MD [address] [facility] [address] [place] [address] PCP - General Internal Medicine 01/03/23 Jer Rizo MD [address] Jose Armando [address] [place] [address] PCP - Devoted 05/29/23 Hearing And Speech Assistant Relationship Specialty Start Date End Date Jer Rizo MD [address] [facility] [address] [place] [address] PCP - General Internal Medicine 01/03/23 Jer Rizo MD [address] Jose Armando [address] [place] [address] PCP - Devoted 05/29/23 Hearing And Speech Assistant Relationship Specialty Start Date End Date Jer Rizo MD [address] [facility] [address] [place] [address] PCP - General Internal Medicine 01/03/23 Jer Rizo MD [address] [facility]ando [address] [place] [address] PCP - Devoted 05/29/23 Hearing And Speech Assistant Relationship Specialty Start Date End Date Jer Rizo MD [address] [facility] [place] [address] PCP - General Internal Medicine 01/03/23 Jer Rizo MD [address] [facility] [place] [address] PCP - Devoted 05/29/23 Hearing And Speech Assistant Relationship Specialty Start Date End Date Jer Rizo MD [address] [facility] [place] [address] PCP - General Internal Medicine 01/03/23 Jer Rizo MD [address] [facility] [place] [address] PCP - Devoted 05/29/23 FOR RECORDS PERTAINING [...] BE BASED ON THE PRIMARY CLINICAL RECORDS. [facility]. provides no warranty or guarantee of the accuracy or completeness of information in this document.
--- NOTE | 2024-04-24 11:59 | P.CN_ITS ---
Consult Note: HPI Data of Consult Patient: known to practice within the last 3 years Consult date: 03/25/24 Requesting Physician: Connie Lemus NP Primary Care Provider: Non-Staff Physician, Consult Narrative Reason for consult: neck, low back pain Narrative: 64yof who presents for evaluation. longstanding neck, low back pain history. recently exacerbated her pain in her neck especially. she notes she fell at home and fell through a wall. she had imaging completed in the ED of her neck and low back, which shows multilevel spondylosis throughout cervical and lumbar spines, though no acute pathology noted. she has continued in a series of provider directed home exercises >6 weeks, without any lasting benefit. she uses tramadol once to twice daily as needed, as well as duloxetine diclfoenac baclofen and gabapentin. denies adverse med side effects. recently underwent bilateral C2/3 C3/4 with >80% improvement immediately following and 4 hours after the injection. cc:: CC: Connie Lemus NP Review of Systems ROS Status of ROS 10 or more systems reviewed and unremark able except as noted in history and below Musculoskeletal Reports: back pain and neck pain PFSH PFSH Medical History Endometriosis ?N80.9 - Endometriosis, unspecified (ICD-10) Osteoporosis ?M81.0 - Age-related osteoporosis without current pathological fracture (ICD- 10) Asthma ?J45.909 - Unspecified asthma, uncomplicated (ICD-10) Chronic respiratory failure with hypoxia, on home O2 therapy ?J96.11 - Chronic respiratory failure with hypoxia (ICD-10) ?Z99.81 - Dependence on supplemental oxygen (ICD-10) Hiatal hernia ?K44.9 - Diaphragmatic hernia without obstruction or gangrene (ICD-10) Degenerative disc disease, lumbar ?M51.36 - Other intervertebral disc degeneration, lumbar region (ICD-10) Bipolar disorder ?F31.9 - Bipolar disorder, unspecified (ICD-10) Fibromyalgia ?M79.7 - Fibromyalgia (ICD-10) Hypothyroidism ?E03.9 - Hypothyroidism, unspecified (ICD-10) Rheumatoid arthritis ?M06.9 - Rheumatoid arthritis, unspecified (ICD-10) DM2 (diabetes mellitus, type 2) ?E11.9 - Type 2 diabetes mellitus without complications (ICD-10) Mixed hyperlipidemia ?E78.2 - Mixed hyperlipidemia (ICD-10) Essential hypertension ?I10 - Essential (primary) hypertension (ICD-10) Obesity ?E66.9 - Obesity, unspecified (ICD-10) COPD (chronic obstructive pulmonary disease) ?J44.9 - Chronic obstructive pulmonary disease, unspecified (ICD-10) Stable angina pectoris ?I20.89 - Other forms of angina pectoris (ICD-10) Surgical History H/O laparoscopy ?Z98.890 - Other specified postprocedural states (ICD-10) H/O cataract extraction ?Z98.49 - Cataract extraction status, unspecified eye (ICD-10) Hx laparoscopic cholecystectomy ?Z90.49 - Acquired absence of other specified parts of digestive tract (ICD- 10) H/O cardiac catheterization ?Z98.890 - Other specified postprocedural states (ICD-10) Family History Other Breast cancer CAD (coronary artery disease) Family history of cancer Family history of diabetes mellitus Family history of hypertension Family history of myocardial infarction Social History Within the past year, how often did you have a drink containing alcohol: never Score interpretation: A score less than 3 is consistent with normal alcohol consumption. Smoking status: Never smoker Previous occupational history: retired/disability Highest level of school completed/degree received: high school graduate Little interest or pleasure in doing things: not at all Feeling down, depressed, or hopeless: not at all Gender Identity: female Meds Home Medications and Allergies Home Medications ?Medication ?Instructions ?Recorded ?Confirmed ?Type baclofen 10 mg tablet 10 mg PO Q12H muscle spasm 06/27/23 04/15/24 History budesonide 160 mcg-glycopyr 9 2 inh inhalation BID 06/27/23 04/15/24 History mcg-formot 4.8 mcg/actuation HFA inhaler (Breztri Aerosphere) buspirone 30 mg tablet 30 mg PO BID 06/27/23 04/15/24 History cariprazine 3 mg capsule (Vraylar) 3 mg PO QDAY 06/27/23 04/15/24 History dapagliflozin propanediol 10 mg 10 mg PO QAM 06/27/23 04/15/24 History tablet (Farxiga) diclofenac sodium 75 mg 75 mg PO Q12H 06/27/23 04/15/24 History tablet,delayed release duloxetine 60 mg capsule,delayed 120 mg PO BEDTIME 06/27/23 04/15/24 History release (Cymbalta) furosemide 40 mg tablet 40 mg PO BID 06/27/23 04/15/24 History gabapentin 600 mg tablet 600 mg PO QAM 06/27/23 04/15/24 History levothyroxine 112 mcg tablet 112 mcg PO DAILY 06/27/23 04/15/24 History rosuvastatin 5 mg tablet 5 mg PO .qhs 06/27/23 04/15/24 History metoprolol tartrate 25 mg tablet 25 mg PO BID 06/28/23 04/15/24 History linagliptin 5 mg tablet (Tradjenta) 5 mg PO DAILY 12/04/23 04/15/24 History tramadol 50 mg tablet 50 mg PO TID PRN pain #90 tabs 03/25/24 04/15/24 Rx Allergies Allergy/AdvReac Type Severity Reaction Status Date / Time ibandronate sodium (From Allergy Severe Hives Verified 04/15/24 09:01 Boniva) Sulfa (Sulfonamide Allergy Severe Anaphylaxis Verified 04/15/24 09:01 Antibiotics) Penicillins Allergy Intermediate Anaphylaxis Verified 04/15/24 09:01 Exam Narrative Exam Narrative: Psych-alert and oriented x 3.? Attentive and appropriate, constitutionally normal, displays normal mood and affect per situation.? There are no obvious deficits in memory, reasoning, or intellect.? Skin-no obvious rashes, bruising, or erythema noted to the patient's area of pain. Extremities-upper extremities are warm with minimal edema and palpable pulses. Cervical- tenderness to palpation noted in the cervical spine and paraspinal musculature.? Pain is elicited with extension, and lateral rotation of the cervical spine.? Range of motion is slightly diminished due to pain. Facet loading maneuvers are positive bilaterally.? Coordination remains intact.? Gait remains non-antalgic. Assessment and Plan Assessment and Plan (1) Cervical spondylosis: (2) Lumbar spondylosis: (3) Chronic use of opiate drug for therapeutic purpose: Assessment and Plan: risks vs benefits of current medication reviewed. pt is high risk for opioid therapy with chronic oxygen use due to respiratory failure, bipolar disorder. (4) Chronic respiratory failure with hypoxia, on home O2 therapy: (5) Fibromyalgia: (6) Bipolar disorder: (7) Degenerative disc disease, lumbar: Plan bilateral C2-3 C3-4 MBB #2 working towards RFA decrease tramadol 50mg BID PRN moderate to severe pain update UDS today continue baclofen, diclofenac, duloxetine, gabapentin through PCP at this time f/u after injection
== END 2024-04-24 11:26 | disposition home or self-care (01) ==
LOC: PM 11:25
PROVIDERS: Visit Provider Nurse Practitioner
DX: M47.812 Spondylosis without myelopathy or radiculopathy, cervical region (principal); M47.816 Spondylosis without myelopathy or radiculopathy, lumbar region; Z79.891 Long term (current) use of opiate analgesic; J96.11 Chronic respiratory failure with hypoxia; Z99.81 Dependence on supplemental oxygen; M79.7 Fibromyalgia; F31.89 Other bipolar disorder; M51.369 Other intervertebral disc degeneration, lumbar region without mention of lumbar back pain or lower extremity pain
CPT/HCPCS: G0463

== ENCOUNTER 2024-05-06 07:40 | Day surgery (SDC) | payer OTHER, SELFPAY ==
[2024-05-06 08:23] VITALS: BP 132/78; PULSE 75; TEMP 36.5; O2SAT 94
[2024-05-06 08:25] LABS: Glucometer 171 mg/dL (74-106)
[2024-05-06 09:10] VITALS: BP 151/93; PULSE 65; PULSE 70; O2SAT 96
[2024-05-06 09:11] VITALS: BP 155/110
--- NOTE | 2024-05-06 09:12 | W.PM.PROCNOT ---
Date of procedure: 05/06/24 Pre-op diagnosis: Pain due to cervical spondylosis without myelopathy Post-op diagnosis: same as pre-op Procedure: Procedure: Bilateral C2-3, 3-4 medial branch block Medications: Bupivacaine 0.25% 6cc The patient was seen and examined in the preoperative holding area.? The informed consent was obtained and placed on the chart.? The patient was brought to the medical procedure unit and placed in the prone position.? A timeout was completed verifying correct patient, procedure site, positioning, plan, and special equipment.? Using aseptic technique, the needle was placed at left C2.? Under direct fluoroscopic visualization, a Quincke tip needle was advanced to the midpoint of the waist of the articular pillar at the respective medial branch segment. The above-mentioned injectate was placed in a 1 mL aliquot proceeded by negative aspiration.? The needle was removed.? The procedure was completed at all left C3, 4. The same procedure, at the same levels, was then completed on the right side. Insertion site was covered.? Patient was taken to the postprocedural recovery area and monitored for an appropriate length of time before found suitable for discharge in the accompaniment of a responsible adult. Anesthesia: Local Surgeon: Divya Alfaro Pathology: none sent Condition: stable Disposition: no change
[2024-05-06] MEDS: LIDOCAINE HCL 2% 400 MG/20 ML MDV INJ (09:13)
[2024-05-06] MEDS: BUPIVACAINE HCL 0.25% PF 25 MG/10 ML VIAL 8 ML INJ (09:13)
== END 2024-05-06 09:29 | disposition home or self-care (01) ==
LOC: SURGOUT 07:41
PROVIDERS: Visit Provider Anesthesiology
DX: M47.812 Spondylosis without myelopathy or radiculopathy, cervical region (principal); E11.9 Type 2 diabetes mellitus without complications
CPT/HCPCS: 36415; 64490; 64491; 82948; J0665

== ENCOUNTER 2024-05-08 12:29 | Outpatient (OUT) | payer OTHER, SELFPAY ==
--- OUTSIDE RECORDS SUMMARY | 2024-05-08 12:32 | XMS_ITS | CCD ---
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 Name Role Phone Unavailable Primary Care Provider [...] cefdinir Drug Allergy 3 [facility] (1 source) Codeine Drug Allergy [facility] (2 sources) Ibandronate Drug Allergy 3 [facility] (2 sources) nabumetone Drug Allergy 3 [facility] (2 sources) Penicillins Drug allergy (disorder) 3 [facility] (2 sources) Sulfonamides (Antibiotic) Drug allergy (disorder) 3 [facility] (11 sources) cefdinir Drug Allergy 3 Hives [facility] Work Phone: (11 sources) Ibandronate Drug Allergy 3 Hives [facility] (11 sources) nabumetone Drug Allergy 3 [facility] (11 sources) Penicillin G Drug Allergy 3 [facility] (11 sources) Sulfanilamide Allergy to substance 3 [facility] (9 sources) Sertraline Drug Allergy 4 [facility] (9 sources) zolpidem Drug Allergy 4 Other [facility] Medications Current Medications Medication Drug Class(es) Dates Sig (Normalized) Sig (Original) acetaminophen 325 mg / HYDROcodone bitartrate 5 mg oral tablet (11 sources) 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 56 tablet 0 03/22/2023 Active [id number] 200 actuat albuterol 0.09 mg/actuat metered dose [...] shortness of breath. 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 (CMS/HCC) Take 1 tablet (600 [...] diabetes mellitus with autonomic neuropathy, unspecified whether usp insulin use (CMS/HCC) TAKE 1 TABLET BY [...] / neomycin 3.5 mg/ml / polymyxin b [id number] unt/ml otic suspension (6 sources) Aminoglycoside Antibacterial, Polymyxin-class Antibacterial, Corticosteroid Start: 4 End: 4 cicihqyd-alnjtqajc-mv drocortisone (Cortisporin) [id number] otic suspension Indications: Acute otitis externa of [...] disease (12 sources) Atherosclerotic heart disease of [place] coronary artery without angina pectoris; Translations: [Coronary [...] (11 sources) Nonalcoholic steatohepatitis; Translations: [Nonalcoholic steatohepatitis (VIAN)] Onset: 01-02-2023 01-02-2023 Chronic Joint disorders and [...] 06-15-2022 Chronic Other aftercare (1 source) 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 THE [place] [employer] GUIDELINES RECOMMEND THAT WOMEN 40 [...] mg/dL Critically high 74-106 T [facility] Comment on above: Performed By: #### P OCGLUC #### [facility] [address] [address] [address] Cammy Cleannig XR HIPS SOPHY 3_4V WO PELVISon 07-29-2022 [...] sacroiliac joint osteoarthritis. Normal [facility] MRI LSSAN FRANCISCO WO CONon 07-11-19 23 MRI [facility] CON EXAMINATION: MRI [facility] CON HISTORY: Lumbar radiculopathy COMPARISON: No [...] Date: 2022-07-11 16:37 Normal [facility] CBC AUTO DIFFon 06-08-2022 BASO # 0.1 103/ul Normal 0.0-0.1 [facility] Comment on above: Performed By: #### C BC #### [facility] [address] [address] [address] Cammy Cleaning Basophils/100 WBC (Bld) 0.8 % Normal 0.2-2.0 [facility] Comment on above: Performed By: #### C BC #### [facility] [address] [address] [address] Cammy Cleaning EO # 0.5 103/ul Normal 0.0-0.7 [facility] Comment on above: Performed By: #### C BC #### [facility] [address] [address] [address] Cammy Cleaning Eosinophils/100 WBC (Bld) 5.2 % Normal 0.9-7.0 [facility] Comment on above: Performed By: #### C BC #### [facility] [address] [place] [address] Dr. Cammy Cleaning Erythrocyte distribution width (RBC) [Ratio] 14.8 % Normal 11.0-15.0 [facility] Comment on above: Performed By: #### C BC #### [facility] [address] [place] [address] Dr. Cammy Cleaning Hematocrit (Bld) [Volume fraction] 50.0 % Critically high 36.0-48.0 [facility] Comment on above: Performed By: #### C BC #### [facility] [address] [place] [address] Dr. Cammy Cleaning Hemoglobin (Bld) [Mass/Vol] 15.2 g/dL Normal 12.0-16.0 [facility] Comment on above: Performed By: #### C BC #### [facility] [address] [place] [address] Dr. Cammy Cleaning IG # 0.19 10e3/ul Critically high 0.00-0.03 [facility] Comment on above: Performed By: #### C BC #### [facility] [address] [place] [address] Dr. Cammy Cleaning IG % 1.8 % Critically high 0.0-0.5 [facility] Comment on above: Performed By: #### C BC #### [facility] [address] [place] [address] Dr. Cammy Cleaning LYMPH # 2.1 103/ul Normal 1.2-3.8 [facility] Comment on above: Performed By: #### C BC #### [facility] [address] [place] [address] Dr. Cammy Cleaning Lymphocytes/100 WBC (Bld) 19.6 % Critically low 20.5-60.0 [facility] Comment on above: Performed By: #### C BC #### [facility] [address] [place] [address] Dr. Cammy Cleaning MANUAL DIFF REQ NO Normal [facility] Comment on above: Performed By: #### C BC #### [facility] [address] [place] [address] Dr. Cammy Cleaning MCH (RBC) [Entitic mass] 27.6 pg Normal 26.7-34.0 [facility] Comment on above: Performed By: #### C BC #### [facility] [address] [place] [address] Dr. Cammy Cleaning MCHC (RBC) [Mass/Vol] 30.4 g/dL Normal 29.9-35.2 [facility] Comment on above: Performed By: #### C BC #### [facility] [address] [place] [address] Dr. Cammy Cleaning MCV (RBC) [Entitic vol] 90.7 fL Normal 81.0-99.0 [facility] Comment on above: Performed By: #### C BC #### [facility] [address] [place] [address] Dr. Cammy Cleaning MONO # 0.7 103/ul Normal 0.3-0.8 [facility] Comment on above: Performed By: #### C BC #### [facility] [address] [place] [address] Dr. Cammy Cleaning Monocytes/100 WBC (Bld) 7.0 % Normal 1.7-12.0 [facility] Comment on above: Performed By: #### C BC #### [facility] [address] [address] [address] Cammy Cleaning NEUT # 6.9 103/ul Critically high 1.4-6.5 [facility] Comment on above: Performed By: #### C BC #### [facility] [address] [address] [address] Cammy Cleaning Neutrophils/100 WBC (Bld) 65.6 % Normal 43.0-75.0 [facility] Comment on above: Performed By: #### C BC #### [facility] [address] [address] [address] Cammy Cleaning Platelet mean volume (Bld) [Entitic vol] 8.7 fL Critically low 9.5-13.5 [facility] Comment on above: Performed By: #### C BC #### [facility] [address] [address] [address] Cammy Cleaning PLT 166 103/ul Normal 150-450 [facility] Comment on above: Performed By: #### C BC #### [facility] [address] [address] [address] Cammy Cleaning RBC 5.51 106/ul Critically high 4.20-5.40 [facility] Comment on above: Performed By: #### C BC #### [facility] [address] [address] [address] Cammy Cleaning WBC 10.5 103/ul Normal 4.0-11.0 [facility] Comment on above: Performed By: #### C BC #### [facility] [address] [address] [address] Cammy Cleaning POINT OF CARE GLUCOSEon 05-29 Glucose [Mass/Vol] 134 mg/dL Critically high 74-106 T [facility] Comment on above: Performed By: #### P OCGLUC #### [facility] [address] [address] [address] Cammy Cleaning PROF 14(COMP METB)on 023 Albumin [Mass/Vol] 3.0 g/dL Critically low 3.4-5.0 [facility] Comment on above: Performed By: #### C MP ####[facility] [address] [id number][address] Cammy Cleaning Albumin/Globulin [Mass ratio] 0.8 {ratio} Normal [facility] Comment on above: Performed By: #### C MP ####[facility] [address] [id number]. Cammy Cleaning ALP [Catalytic activity/Vol] 85 U/L Normal 46-116 [facility] Comment on above: Performed By: #### C MP ####[facility] [address] [address]Dr. Cammy Cleaning ALT [Catalytic activity/Vol] 19 U/L Normal 14-59 [facility] Comment on above: Performed By: #### C MP ####[facility] [address] [place], [place] [address]Dr. Cammy Cleaning Anion gap [Moles/Vol] 6.9 mmol/L Normal [facility] Comment on above: Performed By: #### C MP ####[facility] [address] [place], [place] [address]Dr. Cammy Cleaning AST [Catalytic activity/Vol] 18 U/L Normal 15-37 [facility] Comment on above: Performed By: #### C MP ####[facility] [address] [place], [place] [address]Dr. Cammy Cleaning Bilirubin [Mass/Vol] 0.6 mg/dL Normal 0.2-1.0 [facility] Comment on above: Performed By: #### C MP ####[facility] [address] [place], [place] [address]Dr. Cammy Black Calcium [Mass/Vol] 9.4 mg/dL Normal 8.5-10.1 [facility] Comment on above: Performed By: #### C MP ####[facility] [address] [place], [place] [address]Dr. Cammy Black Chloride [Moles/Vol] 99 mmol/L Normal 98-107 [facility] Comment on above: Performed By: #### C MP ####[facility] [address] [place], [place] [address]Dr. Cammy Cleaning CO2 [Moles/Vol] 37.8 mmol/L Critically high 21.0-32.0 [facility] Comment on above: Performed By: #### C MP ####[facility] [address] [address]Dr. Cammy Cleaning Creatinine [Mass/Vol] 0.85 mg/dL Normal 0.55-1.02 [facility] Comment on above: Performed By: #### C MP ####[facility] [address] [place], [place] [address]Dr. Cammy Cleaning EGFR-AF [place] >60 Normal >=60 [facility] Comment on above: Performed By: #### C MP ####[facility] [address] [place], [place] [address]Dr. Cammy Celaning EGFR-NON AF [place] >60 Normal >=60 [facility] Comment on above: Performed By: #### C MP ####[facility] [address] [place], [place] [address]Dr. Cammy Cleaning Globulin (S) [Mass/Vol] 3.6 g/dL Normal [facility] Comment on above: Performed By: #### C MP ####[facility] [address] [place], [place] [address]Dr. Cammy Cleaning Glucose [Mass/Vol] 139 mg/dL Critically high 74-106 T [facility] Comment on above: Performed By: #### C MP ####[facility] [address] [place], [place] [address]Dr. Cammy Cleaning Potassium [Moles/Vol] 3.7 mmol/L Normal 3.5-5.1 [facility] Comment on above: Performed By: #### C MP ####[facility] [address] [place], [place] [address]Dr. Cammy Cleaning Protein [Mass/Vol] 6.6 g/dL Normal 6.4-8.2 [facility] Comment on above: Performed By: #### C MP ####[facility] [address] [place], [place] [address]Dr. Cammy Cleaning Sodium [Moles/Vol] 140 mmol/L Normal 136-145 [facility] Comment on above: Performed By: #### C MP ####[facility] [address] [address]Dr. Cammy Cleaning Urea nitrogen [Mass/Vol] 14.0 mg/dL Normal 7.0-18.0 [facility] Comment on above: Performed By: #### C MP ####[facility] [address] [address]DrNoreen Cleaning Urea nitrogen/Creatinine [Mass ratio] 16.5 mg/mg Normal [facility] Comment on above: Performed By: #### C MP ####[facility] [address] [place], [place] [address]Dr. Cammy Cleaning BNPon 06-07-2022 Natriuretic peptide B (Bld) [Mass/Vol] 117.0 pg/mL Normal <=900.0 [facility] Comment on above: Performed By: #### C BC #### [facility] [address] [place] [address] Dr. Cammy Cleaning CBC AUTO DIFFon 06-07-2022 BASO # 0.1 103/ul Normal 0.0-0.1 [facility] Comment on above: Performed By: #### C BC #### [facility] [address] [place] [address] Dr. Cammy Cleaning Basophils/100 WBC (Bld) 0.6 % Normal 0.2-2.0 [facility] Comment on above: Performed By: #### C BC #### [facility] [address] [place] [address] Dr. Cammy Cleaning EO # 0.6 103/ul Normal 0.0-0.7 [facility] Comment on above: Performed By: #### C BC #### [facility] [address] [place] [address] Dr. Cammy Cleaning Eosinophils/100 WBC (Bld) 5.8 % Normal 0.9-7.0 [facility] Comment on above: Performed By: #### C BC #### [facility] [address] [place] [address] Dr. Cammy Cleaning Erythrocyte distribution width (RBC) [Ratio] 14.6 % Normal 11.0-15.0 [facility] Comment on above: Performed By: #### C BC #### [facility] [address] [place] [address] Dr. Cammy Cleaning Hematocrit (Bld) [Volume fraction] 45.8 % Normal 36.0-48.0 [facility] Comment on above: Performed By: #### C BC #### [facility] [address] [place] [address] Dr. Cammy Cleaning Hemoglobin (Bld) [Mass/Vol] 14.4 g/dL Normal 12.0-16.0 [facility] Comment on above: Performed By: #### C BC #### [facility] [address] [place] [address] Dr. Cammy Cleaning IG # 0.18 10e3/ul Critically high 0.00-0.03 [facility] Comment on above: Performed By: #### C BC #### [facility] [address] [place] [address] Dr. Cammy Cleaning IG % 1.7 % Critically high 0.0-0.5 [facility] Comment on above: Performed By: #### C BC #### [facility] [address] [place] [address] Dr. Cammy Cleaning LYMPH # 1.8 103/ul Normal 1.2-3.8 [facility] Comment on above: Performed By: #### C BC #### [facility] [address] [place] [address] Dr. Cammy Cleaning Lymphocytes/100 WBC (Bld) 16.1 % Critically low 20.5-60.0 [facility] Comment on above: Performed By: #### C BC #### [facility] [address] [place] [address] Dr. Cammy Cleaning MANUAL DIFF REQ NO Normal [facility] Comment on above: Performed By: #### C BC #### [facility] [address] [place] [address] Dr. Cammy Cleaning MCH (RBC) [Entitic mass] 27.7 pg Normal 26.7-34.0 [facility] Comment on above: Performed By: #### C BC #### [facility] [address] [address] [address] Cammy Cleaning MCHC (RBC) [Mass/Vol] 31.4 g/dL Normal 29.9-35.2 [facility] Comment on above: Performed By: #### C BC #### [facility] [address] [address] [address] Cammy Cleaning MCV (RBC) [Entitic vol] 88.1 fL Normal 81.0-99.0 [facility] Comment on above: Performed By: #### C BC #### [facility] [address] [place] [address] Dr. Cammy Cleaning MONO # 0.9 103/ul Critically high 0.3-0.8 [facility] Comment on above: Performed By: #### C BC #### [facility] [address] [place] [address] Dr. Cammy Cleaning Monocytes/100 WBC (Bld) 8.2 % Normal 1.7-12.0 [facility] Comment on above: Performed By: #### C BC #### [facility] [address] [place] [address] Dr. Cammy Cleaning NEUT # 7.3 103/ul Critically high 1.4-6.5 [facility] Comment on above: Performed By: #### C BC #### [facility] [address] [place] [address] Dr. Cammy Cleaning Neutrophils/100 WBC (Bld) 67.6 % Normal 43.0-75.0 [facility] Comment on above: Performed By: #### C BC #### [facility] [address] [place] [address] Dr. Cammy Cleaning Platelet mean volume (Bld) [Entitic vol] 8.8 fL Critically low 9.5-13.5 [facility] Comment on above: Performed By: #### C BC #### [facility] [address] [address] [address] Cammy Cleaning PLT 169 103/ul Normal 150-450 [facility] Comment on above: Performed By: #### C BC #### [facility] [address] [place] [address] Dr. Cammy Cleaning RBC 5.20 106/ul Normal 4.20-5.40 [facility] Comment on above: Performed By: #### C BC #### [facility] [id number] Cammy Cleaning WBC 10.9 103/ul Normal 4.0-11.0 [facility] Comment on above: Performed By: #### C BC #### [facility] [address] [place] [address] Dr. Cammy Cleaning ECHOCARDIO M/2D COMPLETEon 0 06-07-2022 ECHOCARDIO M/2D COMPLETE Patient: SANNA CORRALES Exam Date: 06/07/2022 : 1960 Gender:F Ordering : DR. WILLEM HIDALGO . Admission #: [id number] Family : OMID MARTINS . Order #: [id number] CLICK HERE TO VIEW EXAM ECHOCARDIOGRAM REPORT [...] Arellano M.D. on 06/09/2022 at 10:48 Normal [facility] FREE T4on 06-07-2022 Free T4 [Mass/Vol] 1.21 ng/dL Normal 0.76-1.46 [facility] Comment on above: Performed By: #### C BC #### [facility] [address] [address] [address] Cammy Cleaning GLYCOHEMOGLOBIN A1Con 2022 ADA RECOMMENDATION SEE BELOW Normal [facility] Comment on above: Result Comment: ADA RECOMMENDED LIMIT 4.0 - 6.0 ADA THERAPEUTIC TARGET < 7.0 ACTION SUGGESTED > 7.0 Performed By: #### P OCGLUC #### [facility] [address] [address] [address] Cammy Cleaning Glucose [Mass/Vol] 171 mg/dL Normal [facility] Comment on above: Performed By: #### P OCGLUC #### [facility] [address] [address] [address] Cammy Cleaning HbA1c (Bld) [Mass fraction] 7.6 % Critically high 4.5-6.2 [facility] Comment on above: Performed By: #### P OCGLUC #### [facility] [address] [address] [address] Cammy Cleaning POINT OF CARE GLUCOSEon 05-29 Glucose [Mass/Vol] 141 mg/dL Critically high -106 [facility] Comment on above: Performed By: #### C BC #### [facility] [address] [address] [address] Cammy Cleaning Glucose [Mass/Vol] 161 mg/dL Critically high -106 [facility] Comment on above: Performed By: #### P OCGLUC ####[facility] [address] [address]Dr. Cammy Cleaning Glucose [Mass/Vol] 148 mg/dL Critically high -106 [facility] Comment on above: Performed By: #### P OCGLUC ####[facility] [address] [place], [place] [address]UaDr. Cammy Cleaning PROF 14(COMP METB)on 023 Albumin [Mass/Vol] 2.7 g/dL Critically low 3.4-5.0 [facility] Comment on above: Performed By: #### C MP #### [facility] [address] [address] [address] Cammy Cleaning Albumin/Globulin [Mass ratio] 0.8 {ratio} Normal [facility] Comment on above: Performed By: #### C MP #### [facility] [address] [address] [address] Cammy Cleaning ALP [Catalytic activity/Vol] 85 U/L Normal 46-116 [facility] Comment on above: Performed By: #### C MP #### [facility] [address] [address] [address] Cammy Cleaning ALT [Catalytic activity/Vol] 15 U/L Normal 14-59 [facility] Comment on above: Performed By: #### C MP #### [facility] [address] [address] [address] Cammy Cleaning Anion gap [Moles/Vol] 8.3 mmol/L Normal [facility] Comment on above: Performed By: #### C MP #### [facility] [address] [address] [address] Cammy Cleaning AST [Catalytic activity/Vol] 17 U/L Normal 15-37 [facility] Comment on above: Performed By: #### C MP #### [facility] [address] [address] [address] Cammy Cleaning Bilirubin [Mass/Vol] 0.6 mg/dL Normal 0.2-1.0 [facility] Comment on above: Performed By: #### C MP #### [facility] [address] [address] [address] Cammy Cleaning Calcium [Mass/Vol] 8.9 mg/dL Normal 8.5-10.1 [facility] Comment on above: Performed By: #### C MP #### [facility] [address] [address] [address] Cammy Cleaning Chloride [Moles/Vol] 102 mmol/L Normal 98-107 [facility] Comment on above: Performed By: #### C MP #### [facility] [address] [address] [address] Cammy Cleaning CO2 [Moles/Vol] 34.6 mmol/L Critically high 21.0-32.0 [facility] Comment on above: Performed By: #### C MP #### [facility] [address] [place] [address] Dr. Cammy Cleaning Creatinine [Mass/Vol] 0.80 mg/dL Normal 0.55-1.02 [facility] Comment on above: Performed By: #### C MP #### [facility] [address] [place] [address] Dr. Cammy Cleaning EGFR-AF [place] >60 Normal >=60 [facility] Comment on above: Performed By: #### C MP #### [facility] [address] [place] [address] Dr. Cammy Cleaning EGFR-NON AF [place] >60 Normal >=60 [facility] Comment on above: Performed By: #### C MP #### [facility] [address] [place] [address] Dr. Cammy Cleaning Globulin (S) [Mass/Vol] 3.2 g/dL Normal [facility] Comment on above: Performed By: #### C MP #### [facility] [address] [place] [address] Dr. Cammy Cleaning Glucose [Mass/Vol] 128 mg/dL Critically high 74-106 [facility] Comment on above: Performed By: #### C MP #### [facility] [address] [place] [address] Dr. Cammy Cleaning Potassium [Moles/Vol] 3.9 mmol/L Normal 3.5-5.1 [facility] Comment on above: Performed By: #### C MP #### [facility] [address] [place] [address] Dr. Cammy Cleaning Protein [Mass/Vol] 5.9 g/dL Critically low 6.4-8.2 [facility] [place] Comment on above: Performed By: #### C MP #### [facility] [address] [address] [address] Cammy Cleaning Sodium [Moles/Vol] 141 mmol/L Normal 136-145 [facility] Comment on above: Performed By: #### C MP #### [facility] [address] [address] [address] Cammy Cleaning Urea nitrogen [Mass/Vol] 11.0 mg/dL Normal 7.0-18.0 [facility] Comment on above: Performed By: #### C MP #### [facility] [address] [address] [address] Cammy Cleaning Urea nitrogen/Creatinine [Mass ratio] 13.8 mg/mg Normal [facility] Comment on above: Performed By: #### C MP #### [facility] [address] [address] [address] Cammy Cleaning TSHon 06-07-2022 TSH 2.839 uIU/mL Normal 0.358-3.740 [facility] Comment on above: Performed By: #### T SH ####[facility] [address] [place] [address]Dr. Cammy Cleaning ACETAMINOPHENon 06-06-2022 Acetaminophen [Mass/Vol] ug/mL Normal 10.0-30.0 [facility] Comment on above: Performed By: #### A CET, CARLOS, ETH ####[facility] [address] [place] [address]DrNoreen Cleaning BLOOD GASES BTYon 06-06-2022 02 MODE NASAL CANNULA Normal [facility] Comment on above: Performed By: #### A BG ####[facility] [address] [place] [address]DrNoreen Cleaning ALLENS TEST Positive Normal [facility] Comment on above: Performed By: #### A BG ####[facility] [address] [place] [address]DrNoreen Cleaning Base excess Calc (Bld) [Moles/Vol] 9.4 mmol/L Critically high -2.0-2.0 [facility] Comment on above: Performed By: #### A BG ####[facility] [address] [place] [address]Dr. Cammy Cleaning BIPAP PRESSURE Normal [facility] Comment on above: Performed By: #### A BG ####[facility] [address] [place] [address]Dr. Cammy Cleaning CPAP Normal [facility] Comment on above: Performed By: #### A BG ####[facility] [address] [place] [address]Dr. Cammy Cleaning FIO2 Normal [facility] Comment on above: Performed By: #### A BG ####[facility] [address] [place], [place] [address]Dr. Cammy Cleaning HCO3 (Bld) [Moles/Vol] 35.1 mmol/L Critically high 22.0-26.0 [facility] Comment on above: Performed By: #### A BG ####[facility] [address] [place], [place] [address]Dr. Cammy Cleaning LPM 2 Normal [facility] Comment on above: Performed By: #### A BG ####[facility] [address] [place], [place] [address]Dr. Cammy Cleaning MINUTE VOLUME Normal [facility] Comment on above: Performed By: #### A BG ####[facility] [address] [place], [place] [address]Dr. Cammy Cleaning Oxygen (Bld) [Partial pressure] 59.8 mm[Hg] Critically low 80.0-100.0 [facility] Comment on above: Performed By: #### A BG ####[facility] [address] [place], [place] [address]Dr. Cammy Cleaning Oxygen saturation in Blood 92.4 % Critically low 95.0-100.0 [facility] Comment on above: Performed By: #### A BG ####[facility] [address] [place], [place] [address]Dr. Cammy Cleaning PCO2 63.7 mmHg Critically high 35.0-45.0 [facility] Comment on above: Performed By: #### A BG ####[facility] [address] [place] [address]Dr. Cammy Cleaning PEEP [facility] Comment on above: Performed By: #### A BG ####[facility] [address] [place] [address]Dr. Cammy Cleaning pH (Bld) 7.349 [pH] Critically low 7.350-7.450 [facility] Comment on above: Performed By: #### A BG ####[facility] [address] [place] [address]Dr. Cammy Cleaning PIP [facility] Comment on above: Performed By: #### A BG ####[facility] [address] [place] [address]Dr. Cammy Cleaning PS [facility] Comment on above: Performed By: #### A BG ####[facility] [address] [place] [address]Dr. Cammy Cleaning PUNCTURE SITE [facility] Comment on above: Performed By: #### A BG ####[facility] [address] [place] [address]Dr. Cammy Cleaning RATE [facility] Comment on above: Performed By: #### A BG ####[facility] [address] [place] [address]Dr. Cammy Cleaning VENT MODE [facility] Comment on above: Performed By: #### A BG ####[facility] [address] [place] [address]Dr. Cammy Cleaning [place] [facility] Comment on above: Performed By: #### A BG ####[facility] [address] [place] [address]Dr. Cammy Cleaning BNPon 06-06-2022 Natriuretic peptide B (Bld) [Mass/Vol] 81.0 pg/mL Normal <=900.0 [facility] Comment on above: Performed By: #### C BC #### [facility] [address] [address] [address] Cammy Cleaning CARDIAC PILLO 3-6on 3 CK [Catalytic activity/Vol] 205 U/L Critically high 26-192 [facility] Comment on above: Performed By: #### C MREP #### [facility] [address] [address] [address] Cammy Cleaning CK.MB [Mass/Vol] 0.77 ng/mL Normal <=3.60 [facility] Comment on above: Performed By: #### C MREP #### [facility] [address] [place] [address] Dr. Cammy Cleaning HSTROP 7.5 pg/mL Normal 4.0-51.3 [facility] Comment on above: Result Comment: CUT- OFF POINTS HAVE BEEN ESTABLISHED BASED ON THE FOURTH UNIVERSAL DEFINITIONS OF MYOCARDIAL INFARCTION. THE UPPER REFERENCE LIMIT (URL) OF TROPONIN, DEFINED THE 99TH PERCENTILE OF cTnI DISTRIBUTION IN A REFERENCE POPULATION, HAS BEEN CONFIRMED THE DECISION THRESHOLD FOR CT DIAGNOSIS. Performed By: #### C MREP #### [facility] [address] [place] [address] Dr. Cammy Cleaning CK [Catalytic activity/Vol] 220 U/L Critically high 26-192 [facility] Comment on above: Performed By: #### C BC #### [facility] [address] [place] [address] Dr. Cammy Cleaning CK.MB [Mass/Vol] 0.86 ng/mL Normal <=3.60 [facility] Comment on above: Performed By: #### C BC #### [facility] [address] [place] [address] Dr. Cammy Cleaning HSTROP 8.7 pg/mL Normal 4.0-51.3 [facility] Comment on above: Result Comment: CUT- OFF POINTS HAVE BEEN ESTABLISHED BASED ON THE FOURTH UNIVERSAL DEFINITIONS OF MYOCARDIAL INFARCTION. THE UPPER REFERENCE LIMIT (URL) OF TROPONIN, DEFINED THE 99TH PERCENTILE OF cTnI DISTRIBUTION IN A REFERENCE POPULATION, HAS BEEN CONFIRMED THE DECISION THRESHOLD FOR CT DIAGNOSIS. Performed By: #### C BC #### [facility] [address] [address] [address] Cammy Cleaning CBC AUTO DIFFon 06-06-2022 BASO # 0.1 103/ul Normal 0.0-0.1 [facility] Comment on above: Performed By: #### C BC #### [facility] [address] [place] [address] Dr. Cammy Cleaning Basophils/100 WBC (Bld) 0.7 % Normal 0.2-2.0 [facility] Comment on above: Performed By: #### C BC #### [facility] [address] [place] [address] Dr. Cammy Cleaning EO # 0.6 103/ul Normal 0.0-0.7 [facility] Comment on above: Performed By: #### C BC #### [facility] [address] [place] [address] Dr. Cammy Cleaning Eosinophils/100 WBC (Bld) 5.4 % Normal 0.9-7.0 [facility] Comment on above: Performed By: #### C BC #### [facility] [address] [place] [address] Dr. Cammy Cleaning Erythrocyte distribution width (RBC) [Ratio] 14.6 % Normal 11.0-15.0 [facility] Comment on above: Performed By: #### C BC #### [facility] [address] [place] [address] Dr. Cammy Cleaning Hematocrit (Bld) [Volume fraction] 47.2 % Normal 36.0-48.0 [facility] Comment on above: Performed By: #### C BC #### [facility] [address] [place] [address] Dr. Cammy Cleaning Hemoglobin (Bld) [Mass/Vol] 15.4 g/dL Normal 12.0-16.0 [facility] Comment on above: Performed By: #### C BC #### [facility] [address] [place] [address] Dr. Cammy Cleaning IG # 0.19 10e3/ul Critically high 0.00-0.03 [facility] Comment on above: Performed By: #### C BC #### [facility] [address] [place] [address] Dr. Cammy Cleaning IG % 1.7 % Critically high 0.0-0.5 [facility] Comment on above: Performed By: #### C BC #### [facility] [address] [place] [address] Dr. Cammy Cleaning LYMPH # 1.8 103/ul Normal 1.2-3.8 [facility] Comment on above: Performed By: #### C BC #### [facility] [address] [place] [address] Dr. Cammy Cleaning Lymphocytes/100 WBC (Bld) 16.0 % Critically low 20.5-60.0 [facility] Comment on above: Performed By: #### C BC #### [facility] [address] [place] [address] Dr. Cammy Cleaning MANUAL DIFF REQ NO Normal [facility] Comment on above: Performed By: #### C BC #### [facility] [address] [place] [address] Dr. Cammy Cleaning MCH (RBC) [Entitic mass] 27.7 pg Normal 26.7-34.0 [facility] Comment on above: Performed By: #### C BC #### [facility] [address] [place] [address] Dr. Cammy Cleaning MCHC (RBC) [Mass/Vol] 32.6 g/dL Normal 29.9-35.2 [facility] Comment on above: Performed By: #### C BC #### [facility] [address] [place] [address] Dr. Cammy Cleaning MCV (RBC) [Entitic vol] 85.0 fL Normal 81.0-99.0 [facility] Comment on above: Performed By: #### C BC #### [facility] [address] [place] [address] Dr. Cammy Cleaning MONO # 0.8 103/ul Normal 0.3-0.8 [facility] Comment on above: Performed By: #### C BC #### [facility] [address] [place] [address] Dr. Cammy Cleaning Monocytes/100 WBC (Bld) 6.8 % Normal 1.7-12.0 [facility] Comment on above: Performed By: #### C BC #### [facility] [address] [place] [address] Dr. Cammy Cleaning NEUT # 7.8 103/ul Critically high 1.4-6.5 [facility] Comment on above: Performed By: #### C BC #### [facility] [address] [place] [address] Dr. Cammy Cleaning Neutrophils/100 WBC (Bld) 69.4 % Normal 43.0-75.0 [facility] Comment on above: Performed By: #### C BC #### [facility] [address] [place] [address] Dr. Cammy Cleaning Platelet mean volume (Bld) [Entitic vol] 9.0 fL Critically low 9.5-13.5 [facility] Comment on above: Performed By: #### C BC #### [facility] [address] [place] [address] Dr. Cammy Cleaning PLT 162 103/ul Normal 150-450 [facility] Comment on above: Performed By: #### C BC #### [facility] [address] [place] [address] Dr. Cammy Cleaning RBC 5.55 106/ul Critically high 4.20-5.40 [facility] Comment on above: Performed By: #### C BC #### [facility] [address] [place] [address] Dr. Cammy Cleaning WBC 11.3 103/ul Critically high 4.0-11.0 [facility] Comment on above: Performed By: #### C BC #### [facility] [address] [place] [address] ABD/PELV W CONon [...] by: Christo SARAVIA Date: 2022-06-06 02:29 Normal [facility] CT CSPINE WO CONon 3 [...] Date: 2022-06-06 02:09 Normal [facility] CT HEAD WO CONon 06-06-2022 CT HEAD [...] Date: 2022-06-06 02:07 Normal [facility] CT LSPINE WO CONon 3 CT LSPINE [...] by: Christo SARAVIA Date: 2022-06-06 02:29 Normal [facility] CTA ABD/PELVIS WO W CONon CTA [...] by: ANISH JACKSON Date: 2022-06-06 04:15 Normal [facility] Covid-19 PCR (CVDTBH)on SARS-CoV-2 (COVID-19) RNA JOSE L+probe Ql (Unsp spec) Not detected Normal NOT DETECTED [facility] Comment on above: Result Comment: When diagnostic [...] for this test is supported by the [employer] of Health and Human Service's declaration that [...] By: #### C BC #### [facility] [address] [place] [address] Dr. Cammy Cleaning DRUG SCREEN RAPID (URINE)on 06-06-2022 AMP Negative Normal NEGATIVE [facility] Comment on above: Performed By: #### D FLOYD, ERUR #### [facility] [address] [place] [address] Dr. Cammy Cleaning BAR Negative Normal NEGATIVE [facility] Comment on above: Performed By: #### D FLOYD, ERUR #### [facility] [address] [address] [address] Cammy Cleaning BUP Negative Normal NEGATIVE [facility] Comment on above: Performed By: #### D FLOYD, ERUR #### [facility] [address] [place] [address] Dr. Cammy Cleaning BZO Negative Normal NEGATIVE [facility] Comment on above: Performed By: #### D FLOYD, ERUR #### [facility] [address] [place] [address] Dr. Cammy Cleaning JEM Negative Normal NEGATIVE [facility] Comment on above: Performed By: #### D PATRICIAD, ERUR #### [facility] [address] [place] [address] Dr. Cammy Cleaning CUT-OFFS SEE BELOW Normal [facility] Comment on above: Result Comment: AMP (Amphetamine): [...] Performed By: #### D RUGMARYLUD, ERUR #### [facility] [address] [place] [address] Dr. Cammy Cleaning DRUG CUT HEADER DRUG CLASS TEST SYSTEM CUT-OFF CONCENTRATIONS ARE FOLLOWS: Normal [facility] Comment on above: Performed By: #### D RUGDESTINI, ERUR #### [facility] [address] [place] [address] Dr. Cammy Cleaning mAMP Negative Normal NEGATIVE [facility] Comment on above: Performed By: #### D PATRICIAD, ERUR #### [facility] [address] [place] [address] Dr. Cammy Cleaning MTD Negative Normal NEGATIVE [facility] Comment on above: Performed By: #### D RUGRPD, ERUR #### [facility] [address] [place] [address] Dr. Cammy Cleaning OPI Positive Abnormal NEGATIVE [facility] Comment on above: Performed By: #### D BERNARDRPD, ERUR #### [facility] [address] [place] [address] Dr. Cammy Cleaning OXY Negative Normal NEGATIVE [facility] Comment on above: Performed By: #### D RUGRPD, ERUR #### [facility] [address] [address] [address] Cammy Cleaning PCP Negative Normal NEGATIVE [facility] Comment on above: Performed By: #### D FLOYD, ERUR #### [facility] [address] [address] [address] Cammy Cleaning PPX Negative Normal NEGATIVE [facility] Comment on above: Performed By: #### D FLOYD, ERUR #### [facility] [address] [place] [address] Dr. Cammy Cleaning TCA Negative Normal NEGATIVE [facility] Comment on above: Performed By: #### D FLOYD, ERUR #### [facility] [address] [place] [address] Dr. Cammy Cleaning THC Negative Normal NEGATIVE [facility] Comment on above: Performed By: #### D FLOYD, ERUR #### [facility] [address] [place] [address] Dr. Cammy Cleaning ER URINE PROFILEon 3 Bilirubin Ql (U) Negative Normal NEGATIVE [facility] Comment on above: Performed By: #### D FLOYD, ERUR #### [facility] [address] [place] [address] Dr. Cammy Cleaning Clarity (U) CLEAR Normal CLEAR [facility] Comment on above: Performed By: #### D FLOYD, ERUR #### [facility] [address] [place] [address] Dr. Cammy Cleaning Color (U) YELLOW Normal YELLOW [facility] Comment on above: Performed By: #### D FLOYD, ERUR #### [facility] [address] [place] [address] Dr. Cammy Cleaning ERUAHMayda A micrscopic examination will be performed if indicated. Normal [facility] Comment on above: Performed By: #### D FLOYD, ERUR #### [facility] [address] [place] [address] Dr. Cammy Cleaning Glucose Ql (U) >1000 Abnormal NEGATIVE [facility] Comment on above: Performed By: #### D FLOYD, ERUR #### [facility] [address] [place] [address] Dr. Cammy Cleaning Hemoglobin Ql (U) Negative Normal NEGATIVE [facility] Comment on above: Performed By: #### D FLOYD, ERUR #### [facility] [address] [place] [address] Dr. Cammy Cleaning Ketones Ql (U) Negative Normal NEGATIVE [facility] Comment on above: Performed By: #### D FLOYD, ERUR #### [facility] [address] [place] [address] Dr. Cammy Cleaning LEUKOCYTES Negative Normal NEGATIVE [facility] Comment on above: Performed By: #### D FLOYD, ERUR #### [facility] [address] [place] [address] Dr. Cammy Cleaning Nitrite Ql (U) Negative Normal NEGATIVE [facility] Comment on above: Performed By: #### D FLOYD, ERUR #### [facility] [address] [place] [address] Dr. Cammy Cleaning pH (U) 5.0 [pH] Normal 5-9 [facility] Comment on above: Performed By: #### D FLOYD, ERUR #### [facility] [address] [place] [address] Dr. Cammy Cleaning SPEC GRAVITY 1.010 Normal 1.005-<=1.025 [facility] Comment on above: Performed By: #### Mayda BARRIENTOS, ERUR #### [facility] [address] [place] [address] Dr. Cammy Cleaning UA PROTEIN TRACE Normal NEGATIVE/ TRACE [facility] Comment on above: Performed By: #### D FLOYD, ERUR #### [facility] [address] [place] [address] Dr. Cammy Cleaning UR MICRO IND NOT INDICATED Normal [facility] Comment on above: Performed By: #### D FLOYD, ERUR #### [facility] [address] [place] [address] Dr. Cammy Cleaning Urobilinogen Qn (U) 0.2 {Flory'U}/dL Normal 0.2 - 1. 0 [facility] Comment on above: Performed By: #### D RUGRPD, ERUR #### [facility] [address] [address] [address] Cammy Cleaning ETHANOL (BLD ALC)on 06-06-19 ALC NOTE NOTE: 80 mg/dl is th e legal limit for a blood alcohol level Normal [facility] Comment on above: Performed By: #### A CARLOS STEVE, KAILEY ####[facility] [address] [address]Dr. Cammy Cleaning Ethanol [Mass/Vol] mg/dL Normal [facility] Comment on above: Performed By: #### A CARLOS STEVE, KAILEY ####[facility] [address] [place] [address]Dr. Cammy Cleaning POINT OF CARE GLUCOSEon Glucose [Mass/Vol] 180 mg/dL Critically high -106 [facility] Comment on above: Performed By: #### P OCGLUC #### [facility] [address] [address] [address] Cammy Cleaning Glucose [Mass/Vol] 133 mg/dL Critically high [address] [place] [address] Comment on above: Performed By: #### C BC #### [facility] [address] [address] [address] Cammy Cleaning Glucose [Mass/Vol] 201 mg/dL Critically high [address] [place] [address] Comment on above: Performed By: #### C BC #### [facility] [address] [address] [address] Cammy Cleaning Glucose [Mass/Vol] 112 mg/dL Critically high [address] [place] [address] Comment on above: Performed By: #### P OCGLUC #### [facility] [address] [address] [address] Cammy Cleaning PROF CHEM 8 (BAS METB)on Anion gap [Moles/Vol] 6.7 mmol/L Normal [facility] Comment on above: Performed By: #### C BC #### [facility] [address] [address] [address] Cammy Cleaning Calcium [Mass/Vol] 8.7 mg/dL Normal 8.5-10.1 [facility] Comment on above: Performed By: #### C BC #### [facility] [address] [address] [address] Cammy Cleaning Chloride [Moles/Vol] 102 mmol/L Normal 98-107 [facility] Comment on above: Performed By: #### C BC #### [facility] [address] [place] [address] Dr. Cammy Cleaning CO2 [Moles/Vol] 35.6 mmol/L Critically high 21.0-32.0 [facility] Comment on above: Performed By: #### C BC #### [facility] [address] [place] [address] Dr. Cammy Cleaning Creatinine [Mass/Vol] 0.93 mg/dL Normal 0.55-1.02 [facility] Comment on above: Performed By: #### C BC #### [facility] [address] [place] [address] Dr. Cammy Cleaning EGFR-AF SLOVENIAN >60 Normal >=60 [facility] Comment on above: Performed By: #### C BC #### [facility] [address] [place] [address] Dr. Cammy Cleaning EGFR-NON AF SLOVENIAN >60 Normal >=60 [facility] Comment on above: Performed By: #### C BC #### [facility] [address] [address] [address] Cammy Cleaning Glucose [Mass/Vol] 169 mg/dL Critically high 74-106 [facility] Comment on above: Performed By: #### C BC #### [facility] [address] [place] [address] Dr. Cammy Cleaning Potassium [Moles/Vol] 4.3 mmol/L Normal 3.5-5.1 [facility] Comment on above: Performed By: #### C BC #### [facility] [address] [place] [address] Dr. Cammy Cleaning Sodium [Moles/Vol] 140 mmol/L Normal 136-145 [facility] Comment on above: Performed By: #### C BC #### [facility] [address] [place], [place] [address] Dr. Cammy Cleaning Urea nitrogen [Mass/Vol] 15.0 mg/dL Normal 7.0-18.0 [facility] Comment on above: Performed By: #### C BC #### [facility] [address] [place], [place] [address] Dr. Cammy Cleaning Urea nitrogen/Creatinine [Mass ratio] 16.1 mg/mg Normal [facility] Comment on above: Performed By: #### C BC #### [facility] [address] [place], [place] [address] Dr. Cammy Cleaning SALICYLATEon 06-06-2022 SALICYLATE 1.6 mg/dL Normal <=19.9 [facility] Comment on above: Performed By: #### A CET, CARLOS, ETH ####[facility] [address] [place], [place] [address]FtDr. Cammy Cleaning XR CHEST 1 Von 06-06-2022 [...] by: CELESTE LUNA Date: 2022-06-06 02:58 Normal [facility] MRI KNEE LT WO CONon [...] by: BURT FIGUEROA Date: 2022-05-10 15:59 Normal [facility] Progress Noteson 01-25-2022 Telephone Interceptor Operator Authentication Interface Message Text EMERGENCY TRIAGE, TREAT AND TRANSPORT (ET3) DOCUMENTATION OF TELEHEALTH VISIT Date / Time: 01/14/2022729 Name: Sanna Corrales : 1960 SSN: (Not on file) EMS Agency: [facility] [] Verbal consent obtained [] Implied consent - patient with potential emergency medical condition requiring assessment of capacity to refuse treatment and/or transport VITAL SIGNS: see flowsheet documentation Reason for Telehealth Visit: Chief Complaint Patient presents with Fall History of Present Ilness: 61 yo female who tripped over her small dog in the [facility]. EMS called for lift assist. No LOC, [...] Completed by: Tyler Ingram DO Normal [facility] [employer] [facility] [employer] XR CSPINE 2_3 VIEWSon 2021 XR [...] by: CHRISTEN BAKER Date: 2022-01-04 19:14 Normal [facility] CT SINUSES WO CONon 11-23-19 CT SINUSES [...] by: ANISH ROJO Date: 2021-11-22 13:29 Normal [facility] Vital Signs Date Time Vital Sign Value Performing Clinician Facility 04-17-2024 13:44-0500 Body mass index (BMI) [Ratio] 53.12 kg/m2 Yarelis Daily-Nossek INSTRUMENT PANEL 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: [facility] 04-17-2024 13:44-0500 Body weight 123.38 kg Yarelis Daily-Nossek INSTRUMENT PANEL 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: [facility] 04-17-2024 13:44-0500 Diastolic blood pressure 72 mm[Hg] Yarelis Daily-Nossek INSTRUMENT PANEL 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: [facility] 04-17-2024 13:44-0500 Heart rate 71 /min Yarelis Daily-Nossek INSTRUMENT PANEL 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: [facility] 04-17-2024 13:44-0500 SaO2% (BldA) [Mass fraction] 91 % Yarelis Daily-Nossek INSTRUMENT PANEL 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: [facility] 04-17-2024 13:44-0500 Systolic blood pressure 116 mm[Hg] Yarelis Daily-Nossek INSTRUMENT PANEL 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: [facility] 03-27-2024 15:05-0400 Body height 152.4 cm Erin Hemmer PA Work Phone: [facility] 03-27-2024 15:05-0400 Body mass index (BMI) [Ratio] 52.97 kg/m2 Erin Hemmer PA Work Phone: [facility] 03-27-2024 15:05-0400 Body weight 123.02 kg Erin Hemmer PA Work Phone: [facility] 03-27-2024 15:05-0400 Diastolic blood pressure 84 mm[Hg] Erin Hemmer PA Work Phone: [facility] 03-27-2024 15:05-0400 Heart rate 50 /min Erin Hemmer PA Work Phone: [facility] 03-27-2024 15:05-0400 Respiratory rate 18 /min Erin Tariq PA Work Phone: [facility] 03-27-2024 15:05-0400 SaO2% (BldA) [Mass fraction] 96 % Erin Tariq PA Work Phone: [facility] 03-27-2024 15:05-0400 Systolic blood pressure 128 mm[Hg] Erin Tariq PA Work Phone: [facility] 03-14-2024 09:55-0400 Body mass index (BMI) [Ratio] 53.51 kg/m2 Yarelis Daily-Nossek INSTRUMENT PANEL 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: [facility] 03-14-2024 09:55-0400 Body weight 124.29 kg Yarelis Daily-Nossek INSTRUMENT PANEL 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: [facility] 03-14-2024 09:55-0400 Diastolic blood pressure 82 mm[Hg] Yarelis Daily-Nossek INSTRUMENT PANEL 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: [facility] 03-14-2024 09:55-0400 Heart rate 72 /min Yarelis Daily-Nossek INSTRUMENT PANEL 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: [facility] 03-14-2024 09:55-0400 SaO2% (BldA) [Mass fraction] 85 % Yarelis Daily-Nossek INSTRUMENT PANEL 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: [facility] 03-14-2024 09:55-0400 Systolic blood pressure 134 mm[Hg] Yarelis Daily-Nossek INSTRUMENT PANEL 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: [facility] 01-25-2022 11:40-0400 Diastolic blood pressure 82 mm[Hg] [facility] 01-25-2022 11:40-0400 Heart rate 76 /min [facility] 01-25-2022 11:40-0400 Respiratory rate 20 /min [facility] 01-25-2022 11:40-0400 SaO2% (BldA) [Mass fraction] 94 % [facility] Comment on above: ra 01-25-2022 11:40-0400 Systolic blood pressure 123 mm[Hg] [facility] Encounters Encounter Date Encounter Type Care Provider Facility Start: 04-17-2024 End: 04-17-2024 Bamboo flowsheet Yarelis Vail Daily-Nossek INSTRUMENT PANEL 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: [facility] Start: 04-17-2024 End: 04-17-2024 Bamboo flowsheet Yarelis Vail Daily-Nossek INSTRUMENT PANEL 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: [facility] Start: 04-17-2024 End: 04-17-2024 Office outpatient visit 40 minutes Yarelis Vail Daily-Nossek INSTRUMENT PANEL 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: [facility] Comment on above: JENN (generalized anx iety disorder) ([facility] Start: 04-17-2024 End: 04-17-2024 ambulatory YARELIS Yared DAILY-NOSSEK Not Available Start: 04-15-2024 End: 04-15-2024 ambulatory Divya Alfaro MD Facility:[facility] Start: 03-28-2024 End: 03-28-2024 Fiorella Baca DO Work Phone: [facility] Comment on above: Age-related nuclear cataract of both eyes Start: 03-27-2024 End: 03-27-2024 Office outpatient visit 25 minutes Erin Tariq PA Work Phone: [facility] Comment on above: Type 2 diabetes torsten itus with other specified complication, without long-term current use of insulin ([facility]) (Primary Dx); Limitation of activities due to [...] 03-25-2024 End: 03-25-2024 ambulatory Divya Alfaro MD Facility:[facility] Start: 03-14-2024 End: 03-14-2024 Bamboo flowsheet Yarelis Vail Daily-Nossek INSTRUMENT PANEL 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: [facility] Start: 03-14-2024 End: 03-14-2024 Bamboo flowsheet Yarelis Vail Daily-Nossek INSTRUMENT PANEL 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: [facility] Start: 03-14-2024 End: 03-14-2024 Office outpatient new 60 minutes Yarelis Vail Daily-Nossek INSTRUMENT PANEL 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: [facility] Comment on [...] Not Available Start: 05-09-2023 ambulatory Pratik Ramos acility:[facility] Start: 09-01-2022 ambulatory NARENDRANATH LAKSHMIPATHY . [...] Start: 01-14-2022 End: 01-14-2022 ambulatory [facility] Emergenc y Triage, Treat and Transport Start: 01-14-2022 End: 01-14-2022 Emergency department patient visit [facility] Emergency Triage, Treat and Transport Comment [...] Screening for malign ant neoplasm of colon [facility] Start: 01-26-2025 Glaucoma screening Diabetes: R etinopathy Screening [facility] Start: 12-05-2024 Medicare Annual Wellness (AWV) Medicare Annual Wellness (AWV) [facility] Start: 06-27-2024 Hemoglobin A1c measurement Diabetes: Hemoglobin A1C [facility] Start: 05-17-2024 Screening for malign ant neoplasm of breast Mammogram [facility] Start: 05-15-2024 End: 05-15-2024 Patient encounter procedure 05/15/2024 1:30 PM EST Office Visit [facility] [address] [facility] [address] [place] [address] Yarelis Gallardo, INSTRUMENT PANEL ASSEM[facility] [address] [place] [address] [facility] Start: 04-17-2024 End: 04-17-2024 Patient encounter procedure [facility] Comment on above: Arrived Start: 04-11-2024 End: 04-11-2024 Professional / ancillary services management 04/11/2024 2:00 PM EST Ancillary Procedure [facility] [address] [place] [phone] [facility] Start: 03-27-2024 End: 03-27-2024 Patient encounter procedure 03/27/2024 3:00 PM EDT Office Visit [facility] [address] [facility] [address] [place] [address] Erin Tariq PA [address] [place] [address] Arrived [facility] Comment on above: Arrived Start: 03-27-2024 End: 03-27-2025 Microalbumin/Creatinine panel in random Urine Microalbumin / creatinine, urine ratio Lab Routine Type 2 diabetes mellitus with other specified complication, without long-term current use of insulin ([facility]) Expected: 03/27/2024 (Approximate), Expires: 03/27/2025 [facility] Work Phone: Comment on above: Expected: 03/27/2024 (Approximate), Expires: 03/27/2025 Start: 03-25-2024 End: 03-25-2024 Patient encounter procedure 03/25/2024 1:00 PM EDT Office Visit [facility] [address] [place] [address] Erin Tariq PA [address] [place] [address] [facility] Start: 03-23-2024 Urine screening for protein Diabetes: Urine Protein Screening [facility] Start: 03-22-2024 Medicare Annual Wellness (AWV) Medicare Annual Wellness (AWV) [facility] Start: 03-14-2024 End: 03-14-2024 Patient encounter procedure 03/14/2024 9:30 AM EDT Office Visit [facility] [address] [place] [address] Yarelis Gallardo, INSTRUMENT PANEL AS[facility] [address] [place] [address] Arrived [facility] Comment on above: Arrived Start: 03-07-2024 Hemoglobin A1c measurement Diabetes: Hemoglobin A1C [facility] Start: 07-18-2023 End: 07-18-2023 Patient encounter procedure 07/18/2023 2:15 PM EST Office Visit [facility] [address] [place] [phone] Swathi Baca DO [address] [place] [address] [facility] Start: 07-05-2023 End: 07-05-2023 Patient encounter procedure 07/05/2023 2:00 PM EST Office Visit [facility] [address] [place] [address] Erin Tariq PA [address] [place] [address] [facility] Start: 06-22-2023 Hemoglobin A1c measurement Diabetes: Hemoglobin A1C [facility] Start: 02-26-2022 Influenza vaccination Influenza Vacc ine (#1) [facility] Start: 2011 Measurement of occul t blood in single stool specimen FIT [facility] Start: 2011 Screening for malign ant neoplasm of breast Mammography [facility] Start: 2011 Screening for malign ant neoplasm of colon CRC Screening [facility] Start: 2011 Shingles (RZV) Vacci ne (1 of 2) Shingles (RZV) Vaccine (1 of 2) [facility] Start: 2006 Cholesterol [Mass/volume] in Serum or Plasma Cholesterol [facility] Start: 1991 Screening for malign ant neoplasm of cervix [facility] Start: 1982 Screening for malign ant neoplasm of cervix Pap Smear [facility] Start: 1979 Hepatitis C screening Hepatitis C An tibody [facility] Start: 1979 Tetanus + diphtheria + acellular pertussis vaccine (product) Tdap Booster [facility] Start: 1976 HIV screening HIV Test [facility] Start: 1961 COVID-19 Vaccine (#1) COVID-19 Vacci ne (#1) [facility] Start: 1961 Screening for malign ant neoplasm of colon [facility] Immunizations Immunization Date Immunization Notes Care Provider Fa [facility] 02-21-2024 influenza, seasonal, injectable, preservative free Yarelis Daily-Nossek INSTRUMENT PANEL 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: [facility] 12-06-2023 tetanus toxoid, redu aimee diphtheria toxoid, and acellular pertussis vaccine, adsorbed Yarelis Daily-Nossek INSTRUMENT PANEL 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: [facility] 04-13-2023 Influenza, injectabl e, Madin Andria Canine Kidney, preservative free, quadrivalent Yarelis Daily-Nossek INSTRUMENT PANEL 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: [facility] 04-13-2023 RSV, recombinant, pr otein subunit RSVpreF, adjuvant reconstitu, 120mcg/0.5mL, PF (Arexvy) Yarelis Gallardo INSTRUMENT PANEL 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: [facility] 06-13-2022 Pneumococcal Conjuga te PCV 20 Erin Hemmer PA Work Phone: [facility] 03-31-2022 Influenza, injectabl e, Madin [place]ria Canine Kidney, preservative free, quadrivalent Erin Hemmer PA Work Phone: [facility] 03-24-2021 influenza, injectabl e, quadrivalent, contains preservative Erin Hemmer PA Work Phone: [facility] 03-10-2020 Influenza, injectabl e, Madin [place] Canine Kidney, preservative free, quadrivalent Erin Hemmer PA Work Phone: [facility] 03-12-2019 influenza, injectabl e, madin andria canine kidney, preservative free Erin Hemmer PA Work Phone: [facility] 04-06-2018 Influenza, injectabl e, Madin [place] Canine Kidney, preservative free, quadrivalent Erin Hemmer PA Work Phone: [facility] 02-21-2017 pneumococcal polysaccharide vaccine, 23 valent Erin Hemmer PA Work Phone: [facility] 02-21-2017 seasonal influenza, intradermal, preservative free Erin Hemmer PA Work Phone: [facility] 04-19-2016 influenza, injectabl e, quadrivalent, preservative free Erin Hemmer PA Work Phone: [facility] 02-04-2015 seasonal influenza, intradermal, preservative free Erin Hemmer PA Work Phone: [facility] 03-25-2008 seasonal influenza, intradermal, preservative free Erin Hemmer PA Work Phone: [facility] Payers Date Payer Category Payer Medicare (Managed Care) [facility] [id number] 2023 Private Health Insurance [facility] [id number] 2023 Unknown [id number] 2023 Unknown [id number] 2022 Self-pay 2022 Medicare [id number] 2022 Unknown SP/UNINSURED PEN DING FINANCIAL PROGRAM EVALUATION 9 2022-Present [phone] [address] [place] [address] Other [id number] 2022 Unknown 9 2021 Unknown [id number] 1960 Unknown [id number] 2.16.840.1.023162.3.579. 2.732 1961 Unknown [id number] 2.16.840.1.343469.3.579. 2.593 1961 Unknown [id number] 2.16.840.1.031612.3.579. 2.593 1961 Unknown [id number] 2.16.840.1.139223.3.579. 2.593 1961 Unknown [id number] 2.16.840.1.719283.3.579. 2.593 1961 Unknown [id number] 2.16.840.1.213209.3.579. 2.593 1961 Unknown [id number] 2.16.840.1.388720.3.579. 2.593 1961 Unknown [id number] 2.16.840.1.271723.3.579. 2.593 1961 Unknown [id number] 2.16.840.1.701267.3.579. 2.593 1961 Unknown [id number] 2.16.840.1.580738.3.579. 2.593 1961 Unknown [id number] 2.16.840.1.041343.3.579. 2.196 1961 Unknown [id number] 2.16.840.1.149936.3.579. 2.196 1961 Unknown [id number] 2.16.840.1.852361.3.579. 2.1259 1961 Unknown [id number] 2.16.840.1.076855.3.579. 2.1259 1961 Unknown [id number] 2.16.840.1.697201.3.579. 2.1259 1961 Unknown [id number] 2.16.840.1.176024.3.579. 2.1259 1961 Unknown [id number] 2.16.840.1.973401.3.579. 2.1259 1961 Unknown [id number] 2.16.840.1.107974.3.579. 2.1259 1961 Unknown [id number] 2.16.840.1.668698.3.579. 2.1259 1961 Unknown [id number] 2.16.840.1.914855.3.579. 2.1259 1961 Unknown [id number] 2.16.840.1.148288.3.579. 2.1259 1961 Unknown [id number] 2.16.840.1.236013.3.579. 2.1259 1961 Unknown [id number] 2.16.840.1.348758.3.579. 2.1259 Unknown [id number] 2.16.840.1.832881.3.579. 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 Check blood glucose daily.. [id number] Start: 03-22-2023 Goals Date Patient Goal Desired Activity /State Personal health goal Clinical Notes 01-25-2022 to 04-17-2024 [facility] 04/17/2024 1:30 PM TEETEE Sequeira - 03/27/2024 3:00 PM Ritu [facility] - 03/14/2024 9:30 AM Sidney Cruz - [...] examination of breast Adult respiratory distress syndrome ([facility]) 2014 Allergic Allergic rhinitis due to allergen Arthritis Asthma ([facility]) Bipolar 1 disorder ([facility]) 1991 most recent episode (or current) depressed, unspecified Bronchitis Calculus of gallbladder without mention of cholecystitis or obstruction Carpal tunnel syndrome left Cataract Cholecystitis Closed fracture of ankle Congenital heart failure ([facility]) COPD (chronic obstructive pulmonary disease) ([facility]) Degeneration of lumbar or lumbosacral intervertebral disc Diabetes mellitus ([facility]) without mention of complication, type II or unspecified type, not stated as uncontrolled Disease of thyroid gland ([facility]) Dry eyes Essential hypertension, benign ([facility]) Essential hypertension, malignant ([facility]) Extremity ischemia 2013 rt lower Fracture ankle Headache Hernia of abdominal wall without mention of obstruction or gangrene History of being hospitalized 06/06/2022 AMS due to Med Overuse, Hypoxia, Fall, Acute on Chronic RF Hx of migraine headaches Hypertension ([facility]) Hypothyroidism ([facility]) IBS (irritable bowel syndrome) Influenza with pneumonia Manic episode ([facility]) 1985 Meniere disease Morbid obesity ([facility]) Myalgia and myositis Osteoarthritis Osteoporosis ([facility]) Personal history of medical treatment 2013 cardiopulmonary collapse and acute respiratory failure( Respiratory failure ([facility]) Rheumatoid arthritis ([facility]) Rotator cuff tear right Skin lesion Spondylosis unspecified site without mention of myelopathy Suicidal ideations 2012 Thyroid disease ([facility]) ALLERGIES: Allergies Allergen Reactions Ambien [Zolpidem] Other [...] acute respiratory failure OTHER SURGICAL HISTORY ORIF RI KNEE SCOPE,DIAGNOSTIC Right 02/04/2020 Dr. Cheek ROTATOR [...] and Time Memory/Concentration Short term intact and intermodal customer service intact Insight/Judgement Fair OBJECTIVE: Visit Vitals Smoking [...] previously a patient of Dr. Parekh at [facility]. Patient had also seen Dr. uHddleston in 1991. Med trials patient had been [...] 10mg twice a day for one week [id number] twice a day week Then 5mg once a day for week then discontinue Add vistaril 25mg q 8hours prn for anxiety Refer to Psychotherapy Patient was seen Face to Face, Reviewed chart documents and documentation, Visit time :40min F/U 6 weeks documented in this encounter [facility] 03-27-2024 History of Present illness Narrative Images [...] a 64 y.o. female who presents for [facility] ER follow up. Flowsheet Row Patient Outreach from 03/26/[address] [facility] with Octavia Monday, LATASHA Hospital Information ED, Hospital or Half-Way Facility Discharge? ED Patient has been contacted within 1 week of being seen in the ED No Have two attempts been made to contact the patient within one week of being seen in the ED? No Discharge Date 03/18/24 Discharged To: Home Setting Discharge Hospital [facility] Engagement Call Start Time 1030 Admission Date [...] Suppl device USE DIRECTED 100 strip 2 Qslialv-Wxpyhhsyluw-Tmiujfzjhu (Breztri Aerosphere) 160-9-4.8 MCG/ACT aerosol Inhale 2 [...] blood glucose daily 100 each 3 HYDROcodone-acetaminophen (Knapp) 5-325 MG tablet Take 1 tablet by [...] NEEDED 7 DAY(S) 30 g 2 [DISCONTINUED] wkdemjjl-quqaltfxj-oyuxnznvmyhxjt (Cortisporin) 3.5-13709-8 otic suspension USE 3 DROPS IN EACH [...] allergen Arthritis Asthma (CMS/HCC) Bipolar 1 disorder ([facility]) 1992 most recent episode (or current) depressed, unspecified Bronchitis Calculus of gallbladder without mention of cholecystitis or obstruction Carpal tunnel syndrome left Cataract Cholecystitis Closed fracture of ankle Congenital heart failure (CMS/HCC) COPD (chronic obstructive pulmonary disease) ([facility]) Degeneration of lumbar or lumbosacral intervertebral disc Diabetes mellitus ([facility]) without mention of complication, type II or unspecified type, not stated as uncontrolled Disease of thyroid gland (CMS/HCC) Dry eyes Essential hypertension, benign (CMS/HCC) Essential hypertension, malignant ([facility]) Extremity ischemia 2014 rt lower Fracture ankle Headache Hernia of abdominal wall without mention of obstruction or gangrene History of being hospitalized 06/06/2022 AMS due to Med Overuse, Hypoxia, Fall, Acute on Chronic RF Hx of migraine headaches Hypertension ([facility]) Hypothyroidism ([facility]) IBS (irritable bowel syndrome) Influenza with pneumonia Manic episode ([facility]) 1985 Meniere disease Morbid obesity ([facility]) Myalgia and myositis Osteoarthritis Osteoporosis ([facility]) Personal history of medical treatment 2013 cardiopulmonary collapse and acute respiratory failure( Respiratory failure ([facility]) Rheumatoid arthritis ([facility]) Rotator cuff tear right Skin lesion Spondylosis unspecified site without mention of myelopathy Suicidal ideations 2012 Thyroid disease ([facility]) Past Surgical History: Procedure Laterality Date BIOPSY SKIN SUBCUTANEOUS TISSUE 2013 removal/ biopsy;Disease:abnormal skin lesion BREAST BIOPSY 2011 BRONCHOSCOPY 2013 CARDIAC CATHETERIZATION 2011 CARPAL TUNNEL RELEASE Left 2008 CHOLECYSTECTOMY 2011 ECHO 2014 EMBOLECTOMY 2014 right femoral artery OTHER SURGICAL HISTORY 2013 percutaneous cannulation of right femerol artery/v;Disease:cardiopulmonary collapse and acute respiratory failure OTHER SURGICAL HISTORY ORIF RI KNEE SCOPE,DIAGNOSTIC Right 02/04/2020 Dr. Cheek ROTATOR [...] complication, without long-term current use of insulin ([facility]) - POCT Glycated hemoglobin, total - Microalbumin [...] 06/27/2024) for Diabetes. documented in this encounter [facility] 03-14-2024 History of Present illness Narrative NEW PATIENT PSYCHIATRIC EVALUATION This is a 64-year-old female who is here to establish psychiatric care for the treatment of her bipolar disorder. Patient was previously a patient of Dr. Parekh at [facility]. Patient had also seen Dr. Huddleston [...] suffers from alcoholism. Her Brother is a tax adjuster and denies any mental health problems. Denies Hx of Substance abuse. Frequency of Alcohol on special occasions. Marijuana use denies. Legal hx denies. Patient is no children. Worked at [employer]. Lives with her sister. Stressors: Patient states [...] previously a patient of Dr. Parekh at [facility]. Patient had also seen Dr. Huddleston [...] is drinking again. documented in this encounter [facility] 07-26-2022 Note PAIN MANAGEMENT CONS ULTATION CONSULTATION [...] purpose. I have decreased the use of Knapp from q. 6 hours to q.i.d., 5 mg pills, to be taken as tolerated, and to increase the baclofen 10 mg pill, one pill t.i.d. also as tolerated. Went over the details of the procedure with the patient. All her questions were answered. She agrees to proceed with the outlined plan. [facility] 06-06-2022 Note PROCEDURE: XR SHOULD ER RT [...] authenticated by: BURT FIGUEROA Date: 2022-06-06 13:36 [facility] 01-25-2022 History of Present illness Narrative Images from the original note were not included. EMERGENCY TRIAGE, TREAT AND TRANSPORT (ET3) DOCUMENTATION OF TELEHEALTH VISIT Date / Time: 01/14/2022729 Name: Sanna Corrales : 1960 SSN: (Not on file) EMS Agency: [facility] [] Verbal consent obtained [] Implied consent - patient with potential emergency medical condition requiring assessment of capacity to refuse treatment and/or transport VITAL SIGNS: see flowsheet documentation Reason for Telehealth Visit: Chief Complaint Patient presents with Fall History of Present Ilness: 61 yo female who tripped over her small dog in the [facility]. EMS called for lift assist. No LOC, [...] complication, without long-term current use of insulin ([facility])- Primary Limitation of activities due to disability [...] HealthcareEvaluation note* Diagnosis JENN (generalized anxiety disorder) ([facility]) Generalized anxiety disorder documented in this encounter [...] and content) DATE CREATED AUTHOR 02/03/2022 [facility] [employer] DATE CREATED AUTHOR AUTHOR'S ORGANIZ ATION 08/31/2022 [facility] DATE CREATED AUTHOR AUTHOR'S ORGANIZ ATION 08/04/2023 [facility] DATE CREATED AUTHOR AUTHOR'S ORGANIZ ATION 04/20/2024 [facility] [facility] DATE CREATED AUTHOR AUTHOR'S ORGANIZ ATION 04/20/2024 [facility] EPIC Care Teams (unrecognized sec tion and content) Remote Broadcast Engineer Relationship Specialty Start Date End Date Jer Rizo MD [address] [facility] [address] [place] [address] PCP - General Internal Medicine 01/03/23 Jer Rizo MD [address] Jose Armando [address] [place] [address] PCP - Devoted 05/29/23 Remote Broadcast Engineer Relationship Specialty Start Date End Date Jer Rizo MD [address] Jose Armando [address] [place] [address] PCP - General Internal Medicine 01/03/23 Jer Rizo MD [address] Jose Armando [address] [place] [address] PCP - Devoted 05/29/23 Remote Broadcast Engineer Relationship Specialty Start Date End Date Jer Rizo MD [address] Jose Armando [address] [place] [address] PCP - General Internal Medicine 01/03/23 Jer Rizo MD [address] Jose Armando [address] [place] [address] PCP - Devoted 05/29/23 Remote Broadcast Engineer Relationship Specialty Start Date End Date Jer Rizo MD [address] Jose Armando [address] [place] [address] PCP - General Internal Medicine 01/03/23 Jer Rizo MD [address] Jose Armando [address] [place] [address] PCP - Devoted 05/29/23 Remote Broadcast Engineer Relationship Specialty Start Date End Date Jer Rizo MD [address] Jose Armando [address] [place] [address] PCP - General Internal Medicine 01/03/23 Jer Rizo MD [address] Jose Armando [address] [place] [address] PCP - Devoted 05/29/23 Remote Broadcast Engineer Relationship Specialty Start Date End Date Jer Rizo MD [address] [facility] [place] [address] PCP - General Internal Medicine 01/03/23 Jer Rizo MD [address] [facility] [place] [address] PCP - Devoted 05/29/23 Remote Broadcast Engineer Relationship Specialty Start Date End Date Jer Rizo MD [address] [facility] [place] [address] PCP - General Internal Medicine 01/03/23 Jer Rizo MD [address] [facility] [place] [address] PCP - Devoted 05/29/23 FOR RECORDS PERTAINING [...] BE BASED ON THE PRIMARY CLINICAL RECORDS. [facility]. provides no warranty or guarantee of the accuracy or completeness of information in this document.
--- NOTE | 2024-05-08 13:20 | PM.CN ---
Consult Note: HPI Data of Consult Patient: known to practice within the last 3 years Consult date: 03/25/24 Requesting Physician: Connie Lemus NP Primary Care Provider: Non-Staff Physician, Consult Narrative Reason for consult: neck, low back pain Narrative: 64yof who presents for evaluation. longstanding neck, low back pain history. recently exacerbated her pain in her neck especially. she notes she fell at home and fell through a wall. she had imaging completed in the ED of her neck and low back, which shows multilevel spondylosis throughout cervical and lumbar spines, though no acute pathology noted. she has continued in a series of provider directed home exercises >6 weeks, without any lasting benefit. she uses tramadol once to twice daily as needed, as well as duloxetine diclfoenac baclofen and gabapentin. denies adverse med side effects. recently underwent bilateral C2/3 C3/4 MBB #2 with >80% improvement immediately following and 4 hours after the injection. cc:: CC: Connie Lemus NP Review of Systems ROS Status of ROS 10 or more systems reviewed and unremarkable except as noted in history and below Musculoskeletal Reports: back pain and neck pain PFSH PFSH Medical History Endometriosis ?N80.9 - Endometriosis, unspecified (ICD-10) Osteoporosis ?M81.0 - Age-related osteoporosis without current pathological fracture (ICD-10) Asthma ?J45.909 - Unspecified asthma, uncomplicated (ICD-10) Chronic respiratory failure with hypoxia, on home O2 therapy ?J96.11 - Chronic respiratory failure with hypoxia (ICD-10) ?Z99.81 - Dependence on supplemental oxygen (ICD-10) Hiatal hernia ?K44.9 - Diaphragmatic hernia without obstruction or gangrene (ICD-10) Degenerative disc disease, lumbar ?M51.36 - Other intervertebral disc degeneration, lumbar region (ICD-10) Bipolar disorder ?F31.9 - Bipolar disorder, unspecified (ICD-10) Fibromyalgia ?M79.7 - Fibromyalgia (ICD-10) Hypothyroidism ?E03.9 - Hypothyroidism, unspecified (ICD-10) Rheumatoid arthritis ?M06.9 - Rheumatoid arthritis, unspecified (ICD-10) DM2 (diabetes mellitus, type 2) ?E11.9 - Type 2 diabetes mellitus without complications (ICD-10) Mixed hyperlipidemia ?E78.2 - Mixed hyperlipidemia (ICD-10) Essential hypertension ?I10 - Essential (primary) hypertension (ICD-10) Obesity ?E66.9 - Obesity, unspecified (ICD-10) COPD (chronic obstructive pulmonary disease) ?J44.9 - Chronic obstructive pulmonary disease, unspecified (ICD-10) Stable angina pectoris ?I20.89 - Other forms of angina pectoris (ICD-10) Surgical History H/O laparoscopy ?Z98.890 - Other specified postprocedural states (ICD-10) H/O cataract extraction ?Z98.49 - Cataract extraction status, unspecified eye (ICD-10) Hx laparoscopic cholecystectomy ?Z90.49 - Acquired absence of other specified parts of digestive tract (ICD-10) H/O cardiac catheterization ?Z98.890 - Other specified postprocedural states (ICD-10) Family History Other Breast cancer CAD (coronary artery disease) Family history of cancer Family history of diabetes mellitus Family history of hypertension Family history of myocardial infarction Social History Within the past year, how often did you have a drink containing alcohol: never Score interpretation: A score less than 3 is consistent with normal alcohol consumption. Smoking status: Never smoker Previous occupational history: retired/disability Highest level of school completed/degree received: high school graduate Little interest or pleasure in doing things: not at all Feeling down, depressed, or hopeless: not at all Gender Identity: female Meds Home Medications and Allergies Home Medications ?Medication ?Instructions ?Recorded ?Confirmed ?Type baclofen 10 mg tablet 10 mg PO Q12H muscle spasm 06/27/23 05/06/24 History budesonide 160 mcg-glycopyr 9 2 inh inhalation BID 06/27/23 05/06/24 History mcg-formot 4.8 mcg/actuation HFA inhaler (Breztri Aerosphere) buspirone 30 mg tablet 30 mg PO BID 06/27/23 05/06/24 History cariprazine 3 mg capsule (Vraylar) 3 mg PO QDAY 06/27/23 05/06/24 History dapagliflozin propanediol 10 mg 10 mg PO QAM 06/27/23 05/06/24 History tablet (Farxiga) diclofenac sodium 75 mg 75 mg PO Q12H 06/27/23 05/06/24 History tablet,delayed release duloxetine 60 mg capsule,delayed 120 mg PO BEDTIME 06/27/23 05/06/24 History release (Cymbalta) furosemide 40 mg tablet 40 mg PO BID 06/27/23 05/06/24 History gabapentin 600 mg tablet 600 mg PO QAM 06/27/23 05/06/24 History levothyroxine 112 mcg tablet 112 mcg PO DAILY 06/27/23 05/06/24 History rosuvastatin 5 mg tablet 5 mg PO .qhs 06/27/23 05/06/24 History metoprolol tartrate 25 mg tablet 25 mg PO BID 06/28/23 05/06/24 History linagliptin 5 mg tablet (Tradjenta) 5 mg PO DAILY 12/04/23 05/06/24 History tramadol 50 mg tablet 50 mg PO TID PRN pain #90 tabs 03/25/24 05/06/24 Rx Allergies Allergy/AdvReac Type Severity Reaction Status Date / Time ibandronate sodium (From Allergy Severe Hives Verified 05/06/24 08:28 Boniva) Sulfa (Sulfonamide Allergy Severe Anaphylaxis Verified 05/06/24 08:28 Antibiotics) Penicillins Allergy Intermediate Anaphylaxis Verified 05/06/24 08:28 Exam Narrative Exam Narrative: Psych-alert and oriented x 3.? Attentive and appropriate, constitutionally normal, displays normal mood and affect per situation.? There are no obvious deficits in memory, reasoning, or intellect.? Skin-no obvious rashes, bruising, or erythema noted to the patient's area of pain. Extremities-upper extremities are warm with minimal edema and palpable pulses. Cervical- tenderness to palpation noted in the cervical spine and paraspinal musculature.? Pain is elicited with extension, and lateral rotation of the cervical spine.? Range of motion is slightly diminished due to pain. Facet loading maneuvers are positive bilaterally.? Coordination remains intact.? Gait remains non-antalgic. Constitutional Documenting provider has reviewed patient's vital signs: yes Common normals: no apparent distress, oriented x3, healthy appearing, alert and well nourished General appearance: cooperative [facility] Common normals: normocephalic, hearing grossly normal bilaterally and moist oral mucous membranes Head and scalp: normocephalic Eye Common normals: PERRL Pupil: PERRL Neck & C-Spine Common normals: full ROM General: normal visual inspection Chest Common normals: inspection of chest normal Respiratory Common normals: normal respiratory effort, no retractions and no use of accessory muscles Neuro Common normals: oriented x3, CN's II-XII intact bilaterally, moves all extremities, no focal motor deficits, no sensory deficits noted and deep tendon reflexes 2+ bilaterally Sensorium/orientation: alert Motor exam: strength 5/5 throughout and no movement abnormalities noted Psych Common normals: mental status grossly normal, thought process normal, cooperative, affect normal, speech normal and activity/motor behavior normal Speech: normal speech Thought process: normal thought process Results Additional Findings Additional findings: If on a controlled substance or opioids, I have checked an [place] report on this patient and there are no aberrancies noted in the prescribing history.??If on a controlled substance or opioid a drug screen was completed and reviewed within the last year, and if there has not been a drug screen completed we ordered one today to monitor higher risk, state monitored pain medication use. As part of providing excellent, safe, comprehensive care, the following was completed at our patient's visit: 1. A medication reconciliation and review to ensure accurate knowledge of current/active medications, including asking our patients to inform us about any [id number] medications or herbal remedies/nutritional supplements/alternative remedies. 2. A review to specifically ensure our patients have had annual screening for screening for depression, screening for tobacco use, and screening for unhealthy alcohol use. For concerning screenings had a discussion with the patient, provided patient education, and recommended follow-up with primary care provider when appropriate. If patient noted with a risk of falling, they received education on strength, gait, and balance training to prevent future risk of falling. Assessment and Plan Assessment and Plan (1) Cervical spondylosis: (2) Lumbar spondylosis: (3) Chronic use of opiate drug for therapeutic purpose: Assessment and Plan: risks vs benefits of current medication reviewed. pt is high risk for opioid therapy with chronic oxygen use due to respiratory failure, bipolar disorder. (4) Chronic respiratory failure with hypoxia, on home O2 therapy: (5) Fibromyalgia: (6) Bipolar disorder: (7) Degenerative disc disease, lumbar: Plan right then left C2/3 C3/4 RFA with 10mg po valium 30-60mins prior decrease tramadol 50mg BID PRN moderate to severe pain continue baclofen, diclofenac, duloxetine, gabapentin through PCP at this time f/u 1 month after RFA complete
== END 2024-05-08 12:30 | disposition home or self-care (01) ==
PROVIDERS: Visit Provider Nurse Practitioner
DX: M47.812 Spondylosis without myelopathy or radiculopathy, cervical region (principal); M47.816 Spondylosis without myelopathy or radiculopathy, lumbar region; Z79.891 Long term (current) use of opiate analgesic; J96.11 Chronic respiratory failure with hypoxia; Z99.81 Dependence on supplemental oxygen; M79.7 Fibromyalgia; F31.9 Bipolar disorder, unspecified; M51.369 Other intervertebral disc degeneration, lumbar region without mention of lumbar back pain or lower extremity pain
CPT/HCPCS: G0463

== ENCOUNTER 2024-05-09 18:21 | Emergency (ER) | payer OTHER, SELFPAY ==
[2024-05-09 18:35] VITALS: BP 118/82; PULSE 84; TEMP 37; O2SAT 87; BMI 55.3
--- OUTSIDE RECORDS SUMMARY | 2024-05-09 18:36 | XMS_ITS | CCD ---
Author Organization [facility] Care Team Providers Care Medical Social Consultant Name Role Phone Unavailable Primary Care Provider [...] (2 sources) cefdinir Drug Allergy 3 [facility] Repository (1 source) Codeine Drug Allergy [facility] Rep[facility] (2 sources) Ibandronate Drug Allergy 3 [facility] Rep[facility] (2 sources) nabumetone Drug Allergy 3 [facility] Rep[facility] (2 sources) Penicillins Drug allergy (disorder) 3 [facility] Rep[facility] (2 sources) Sulfonamides (Antibiotic) Drug allergy (disorder) 3 [facility] Repository (11 sources) cefdinir Drug Allergy 3 Hives [facility] Work Phone: (11 sources) Ibandronate Drug Allergy [address] [facility] (11 sources) nabumetone Drug Allergy [address] [facility] (11 sources) Penicillin G Drug Allergy [address] [facility] (11 sources) Sulfanilamide Allergy to substance [address] [facility] (9 sources) Sertraline Drug Allergy [address] [facility] (9 sources) zolpidem Drug Allergy [address] [facility] Medications Current Medications Medication Drug Class(es) Dates Sig (Normalized) Sig (Original) acetaminophen 325 mg / HYDROcodone bitartrate 5 mg oral tablet (11 sources) Opioid Agonist Start: 02-21-2024 take 1 tablet by mouth every six hours for pain HYDROcodone-acetam inophen (Wall) 5-325 MG tablet Indications: Cervical spondylosis Take 1 tablet by mouth every 6 (six) hours if needed for severe pain or moderate pain 56 tablet 02/21/2024 Active Start: 03-22-2023 take 1 tablet by tk th every six hours for pain HYDROcodone-acetaminophen (Wall) 5-325 MG tablet Indications: Cervical spondylosis Take 1 tablet by mouth every 6 (six) hours if needed for severe pain or moderate pain. 56 tablet 0 03/22/2023 Active [id number] 200 actuat albuterol 0.09 mg/actuat metered dose [...] shortness of breath. 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) Take 1 tablet (600 [...] diabetes mellitus with autonomic neuropathy, unspecified whether care home insulin use (CMS/HCC) TAKE 1 TABLET BY [...] / neomycin 3.5 mg/ml / polymyxin b [id number] unt/ml otic suspension (6 sources) Aminoglycoside Antibacterial, Polymyxin-class Antibacterial, Corticosteroid Start: 4 End: 4 mlmjmgku-xuinjriyf-yy drocortisone (Cortisporin) 3.5-01457-4 otic suspension Indications: Acute otitis externa of [...] disease (12 sources) Atherosclerotic heart disease of [place] coronary artery without angina pectoris; Translations: [Coronary [...] Onset: 06-15-2022 Chronic Other aftercare (1 source) vp cardiovascular service line (current) use of insulin; Translations: [USP CURRENT USE OF INSULIN] Onset: 06-15-2022 Episodic Other aftercare (1 source) Other care home (current) drug therapy; Translations: [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 THE [employer] GUIDELINES RECOMMEND THAT WOMEN 40 [...] [Mass/Vol] 238 mg/dL Critically high 74-106 T [facility] Comment on above: Performed By: #### P OCGLUC #### [facility] [address] [address] [address] Cammy Cleaning XR HIPS SOPHY [id number] [...] joint and sacroiliac joint osteoarthritis. Normal [facility] MRI LSDIXIE WO CONon 07-11-19 23 MRI [facility] CON EXAMINATION: MRI [facility] CON HISTORY: Lumbar radiculopathy COMPARISON: No [...] CHRISTEN BAKER Date: 2022-07-11 16:37 Normal [facility] CBC AUTO DIFFon 06-08-2022 BASO # 0.1 103/ul Normal 0.0-0.1 [facility] Comment on above: Performed By: #### C BC #### [facility] [address] [address] [address] Cammy Cleaning Basophils/100 WBC (Bld) 0.8 % Normal 0.2-2.0 [facility] Comment on above: Performed By: #### C BC #### [facility] [address] [address] [address] Cammy Cleaning EO # 0.5 103/ul Normal 0.0-0.7 [facility] Comment on above: Performed By: #### C BC #### [facility] [address] [address] [address] Cammy Cleaning Eosinophils/100 WBC (Bld) 5.2 % Normal 0.9-7.0 [facility] Comment on above: Performed By: #### C BC #### [facility] [address] [place] [address] Dr. Cammy Cleaning Erythrocyte distribution width (RBC) [Ratio] 14.8 % Normal 11.0-15.0 [facility] Comment on above: Performed By: #### C BC #### [facility] [address] [place] [address] Dr. Cammy Cleaning Hematocrit (Bld) [Volume fraction] 50.0 % Critically high 36.0-48.0 [facility] Comment on above: Performed By: #### C BC #### [facility] [address] [place] [address] Dr. Cammy Cleaning Hemoglobin (Bld) [Mass/Vol] 15.2 g/dL Normal 12.0-16.0 [facility] Comment on above: Performed By: #### C BC #### [facility] [address] [place] [address] Dr. Cammy Cleaning IG # 0.19 10e3/ul Critically high 0.00-0.03 [facility] Comment on above: Performed By: #### C BC #### [facility] [address] [place] [address] Dr. Cammy Cleaning IG % 1.8 % Critically high 0.0-0.5 [facility] Comment on above: Performed By: #### C BC #### [facility] [address] [place] [address] Dr. Cammy Cleaning LYMPH # 2.1 103/ul Normal 1.2-3.8 [facility] Comment on above: Performed By: #### C BC #### [facility] [address] [place] [address] Dr. Cammy Cleaning Lymphocytes/100 WBC (Bld) 19.6 % Critically low 20.5-60.0 [facility] Comment on above: Performed By: #### C BC #### [facility] [address] [place] [address] Dr. Cammy Cleaning MANUAL DIFF REQ NO Normal [facility] Comment on above: Performed By: #### C BC #### [facility] [address] [place] [address] Dr. Cammy Cleaning MCH (RBC) [Entitic mass] 27.6 pg Normal 26.7-34.0 [facility] Comment on above: Performed By: #### C BC #### [facility] [address] [place] [address] Dr. Cammy Cleaning MCHC (RBC) [Mass/Vol] 30.4 g/dL Normal 29.9-35.2 [facility] Comment on above: Performed By: #### C BC #### [facility] [address] [place] [address] Dr. Cammy Cleaning MCV (RBC) [Entitic vol] 90.7 fL Normal 81.0-99.0 [facility] Comment on above: Performed By: #### C BC #### [facility] [address] [place] [address] Dr. Cammy Cleaning MONO # 0.7 103/ul Normal 0.3-0.8 [facility] Comment on above: Performed By: #### C BC #### [facility] [address] [place] [address] Dr. Cammy Cleaning Monocytes/100 WBC (Bld) 7.0 % Normal 1.7-12.0 [facility] Comment on above: Performed By: #### C BC #### [facility] [address] [address] [address] Cammy Cleaning NEUT # 6.9 103/ul Critically high 1.4-6.5 [facility] Comment on above: Performed By: #### C BC #### [facility] [address] [address] [address] Cammy Cleaning Neutrophils/100 WBC (Bld) 65.6 % Normal 43.0-75.0 [facility] Comment on above: Performed By: #### C BC #### [facility] [address] [address] [address] Cammy Cleaning Platelet mean volume (Bld) [Entitic vol] 8.7 fL Critically low 9.5-13.5 [facility] Comment on above: Performed By: #### C BC #### [facility] [address] [address] [address] Cammy Cleaning PLT 166 103/ul Normal 150-450 [facility] Comment on above: Performed By: #### C BC #### [facility] [address] [address] [address] Cammy Cleaning RBC 5.51 106/ul Critically high 4.20-5.40 [facility] Comment on above: Performed By: #### C BC #### [facility] [address] [address] [address] Cammy Cleaning WBC 10.5 103/ul Normal 4.0-11.0 [facility] Comment on above: Performed By: #### C BC #### [facility] [address] [address] [address] Cammy Cleaning POINT OF CARE GLUCOSEon 05-29 Glucose [Mass/Vol] 134 mg/dL Critically high 74-106 T [facility] Comment on above: Performed By: #### P OCGLUC #### [facility] [address] [address] [address] Cammy Cleaning PROF 14(COMP METB)on 023 Albumin [Mass/Vol] 3.0 g/dL Critically low 3.4-5.0 [facility] Comment on above: Performed By: #### C MP ####[facility] [address] [id number] Cammy Cleaning Albumin/Globulin [Mass ratio] 0.8 {ratio} Normal [facility] Comment on above: Performed By: #### C MP ####[facility] [address] [id number]. Cammy Clenaing ALP [Catalytic activity/Vol] 85 U/L Normal 46-116 [facility] Comment on above: Performed By: #### C MP ####[facility] [address] [address]Dr. Cammy Cleaning ALT [Catalytic activity/Vol] 19 U/L Normal 14-59 [facility] Comment on above: Performed By: #### C MP ####[facility] [address] [place], [place] [address]Dr. Cammy Cleaning Anion gap [Moles/Vol] 6.9 mmol/L Normal [facility] Comment on above: Performed By: #### C MP ####[facility] [address] [place], [place] [address]Dr. Cammy Cleaning AST [Catalytic activity/Vol] 18 U/L Normal 15-37 [facility] Comment on above: Performed By: #### C MP ####[facility] [address] [place], [place] [address]Dr. Cammy Cleaning Bilirubin [Mass/Vol] 0.6 mg/dL Normal 0.2-1.0 [facility] Comment on above: Performed By: #### C MP ####[facility] [address] [place], [place] [address]Dr. Cammy Black Calcium [Mass/Vol] 9.4 mg/dL Normal 8.5-10.1 [facility] Comment on above: Performed By: #### C MP ####[facility] [address] [place], [place] [address]Dr. Cammy Black Chloride [Moles/Vol] 99 mmol/L Normal 98-107 [facility] Comment on above: Performed By: #### C MP ####[facility] [address] [place], [place] [id number]. Cammy Cleaning CO2 [Moles/Vol] 37.8 mmol/L Critically high 21.0-32.0 [facility] Comment on above: Performed By: #### C MP ####[facility] [address] [address]Dr. Cammy Cleaning Creatinine [Mass/Vol] 0.85 mg/dL Normal 0.55-1.02 [facility] Comment on above: Performed By: #### C MP ####[facility] [address] [place], [place] [address]Dr. Cammy Cleaning EGFR-AF CENTRAL AFRICAN >60 Normal >=60 [facility] Comment on above: Performed By: #### C MP ####[facility] [address] [place], [place] [address]Dr. Cammy Cleaning EGFR-NON AF CENTRAL AFRICAN >60 Normal >=60 [facility] Comment on above: Performed By: #### C MP ####[facility] [address] [place], [place] [address]Dr. Cammy Cleaning Globulin (S) [Mass/Vol] 3.6 g/dL Normal [facility] Comment on above: Performed By: #### C MP ####[facility] [address] [place], [place] [address]Dr. Cammy Cleaning Glucose [Mass/Vol] 139 mg/dL Critically high 74-106 T [facility] Comment on above: Performed By: #### C MP ####[facility] [address] [place], [place] [address]Dr. Cammy Cleaning Potassium [Moles/Vol] 3.7 mmol/L Normal 3.5-5.1 [facility] Comment on above: Performed By: #### C MP ####[facility] [address] [place], [place] [address]Dr. Cammy Cleaning Protein [Mass/Vol] 6.6 g/dL Normal 6.4-8.2 [facility] Comment on above: Performed By: #### C MP ####[facility] [address] [place], [place] [address]Dr. Cammy Cleaning Sodium [Moles/Vol] 140 mmol/L Normal 136-145 [facility] Comment on above: Performed By: #### C MP ####[facility] [address] [address]Dr. Cammy Cleaning Urea nitrogen [Mass/Vol] 14.0 mg/dL Normal 7.0-18.0 [facility] Comment on above: Performed By: #### C MP ####[facility] [address] [address]DrNoreen Cleaning Urea nitrogen/Creatinine [Mass ratio] 16.5 mg/mg Normal [facility] Comment on above: Performed By: #### C MP ####[facility] [address] [place], [place] [address]Dr. Cammy Cleaning BNPon 06-07-2022 Natriuretic peptide B (Bld) [Mass/Vol] 117.0 pg/mL Normal <=900.0 [facility] Comment on above: Performed By: #### C BC #### [facility] [address] [place] [address] Dr. Cammy Cleaning CBC AUTO DIFFon 06-07-2022 BASO # 0.1 103/ul Normal 0.0-0.1 [facility] Comment on above: Performed By: #### C BC #### [facility] [address] [place] [address] Dr. Cammy Cleaning Basophils/100 WBC (Bld) 0.6 % Normal 0.2-2.0 [facility] Comment on above: Performed By: #### C BC #### [facility] [address] [place] [address] Dr. Cammy Cleaning EO # 0.6 103/ul Normal 0.0-0.7 [facility] Comment on above: Performed By: #### C BC #### [facility] [address] [place] [address] Dr. Cammy Cleaning Eosinophils/100 WBC (Bld) 5.8 % Normal 0.9-7.0 [facility] Comment on above: Performed By: #### C BC #### [facility] [address] [place] [address] Dr. Cammy Cleaning Erythrocyte distribution width (RBC) [Ratio] 14.6 % Normal 11.0-15.0 [facility] Comment on above: Performed By: #### C BC #### [facility] [address] [place] [address] Dr. Cammy Cleaning Hematocrit (Bld) [Volume fraction] 45.8 % Normal 36.0-48.0 [facility] Comment on above: Performed By: #### C BC #### [facility] [address] [place] [address] Dr. Cammy Cleaning Hemoglobin (Bld) [Mass/Vol] 14.4 g/dL Normal 12.0-16.0 [facility] Comment on above: Performed By: #### C BC #### [facility] [address] [place] [address] Dr. Cammy Cleaning IG # 0.18 10e3/ul Critically high 0.00-0.03 [facility] Comment on above: Performed By: #### C BC #### [facility] [address] [place] [address] Dr. Cammy Cleaning IG % 1.7 % Critically high 0.0-0.5 [facility] Comment on above: Performed By: #### C BC #### [facility] [address] [place] [address] Dr. Cammy Cleaning LYMPH # 1.8 103/ul Normal 1.2-3.8 [facility] Comment on above: Performed By: #### C BC #### [facility] [address] [place] [address] Dr. Cammy Cleaning Lymphocytes/100 WBC (Bld) 16.1 % Critically low 20.5-60.0 [facility] Comment on above: Performed By: #### C BC #### [facility] [address] [place] [address] Dr. Cammy Cleaning MANUAL DIFF REQ NO Normal [facility] Comment on above: Performed By: #### C BC #### [facility] [address] [place] [address] Dr. Cammy Cleaning MCH (RBC) [Entitic mass] 27.7 pg Normal 26.7-34.0 [facility] Comment on above: Performed By: #### C BC #### [facility] [address] [address] [address] Cammy Cleaning MCHC (RBC) [Mass/Vol] 31.4 g/dL Normal 29.9-35.2 [facility] Comment on above: Performed By: #### C BC #### [facility] [address] [address] [address] Cammy Cleaning MCV (RBC) [Entitic vol] 88.1 fL Normal 81.0-99.0 [facility] Comment on above: Performed By: #### C BC #### [facility] [address] [place] [address] Dr. Cammy Cleaning MONO # 0.9 103/ul Critically high 0.3-0.8 [facility] Comment on above: Performed By: #### C BC #### [facility] [address] [place] [address] Dr. Cammy Cleaning Monocytes/100 WBC (Bld) 8.2 % Normal 1.7-12.0 [facility] Comment on above: Performed By: #### C BC #### [facility] [address] [place] [address] Dr. Cammy Cleaning NEUT # 7.3 103/ul Critically high 1.4-6.5 [facility] Comment on above: Performed By: #### C BC #### [facility] [address] [place] [address] Dr. Cammy Cleaning Neutrophils/100 WBC (Bld) 67.6 % Normal 43.0-75.0 [facility] Comment on above: Performed By: #### C BC #### [facility] [address] [place] [address] Dr. Cammy Cleaning Platelet mean volume (Bld) [Entitic vol] 8.8 fL Critically low 9.5-13.5 [facility] Comment on above: Performed By: #### C BC #### [facility] [address] [address] [address] Cammy Cleaning PLT 169 103/ul Normal 150-450 [facility] Comment on above: Performed By: #### C BC #### [facility] [address] [place] [address] Dr. Cammy Cleaning RBC 5.20 106/ul Normal 4.20-5.40 [facility] Comment on above: Performed By: #### C BC #### [facility] [address] [id number] Cammy Cleaning WBC 10.9 103/ul Normal 4.0-11.0 [facility] Comment on above: Performed By: #### C BC #### [facility] [address] [place] [address] Dr. Cammy Cleaning ECHOCARDIO M/2D COMPLETEon 0 06-07-2022 ECHOCARDIO M/2D COMPLETE Patient: SANNA CORRALES Exam Date: 06/07/2022 : 1960 Gender:F Ordering : DR. WILLEM HIDALGO . Admission #: [id number] Family : OMID MARTINS . Order #: [id number] CLICK HERE TO VIEW EXAM ECHOCARDIOGRAM REPORT [...] Arellano M.D. on 06/09/2022 at 10:48 Normal [facility] FREE T4on 06-07-2022 Free T4 [Mass/Vol] 1.21 ng/dL Normal 0.76-1.46 [facility] Comment on above: Performed By: #### C BC #### [facility] [address] [address] [address] Cammy Cleaning GLYCOHEMOGLOBIN A1Con 2022 ADA RECOMMENDATION SEE BELOW Normal [facility] Comment on above: Result Comment: ADA RECOMMENDED LIMIT 4.0 - 6.0 ADA THERAPEUTIC TARGET < 7.0 ACTION SUGGESTED > 7.0 Performed By: #### P OCGLUC #### [facility] [address] [address] [address] Cammy Cleaning Glucose [Mass/Vol] 171 mg/dL Normal [facility] Comment on above: Performed By: #### P OCGLUC #### [facility] [address] [address] [address] Cammy Cleaning HbA1c (Bld) [Mass fraction] 7.6 % Critically high 4.5-6.2 [facility] Comment on above: Performed By: #### P OCGLUC #### [facility] [address] [address] [address] Cammy Cleaning POINT OF CARE GLUCOSEon 05-29 Glucose [Mass/Vol] 141 mg/dL Critically high -106 [facility] Comment on above: Performed By: #### C BC #### [facility] [address] [address] [address] Cammy Cleaning Glucose [Mass/Vol] 161 mg/dL Critically high -106 [facility] Comment on above: Performed By: #### P OCGLUC ####[facility] [address] [address]Dr. Cammy Cleaning Glucose [Mass/Vol] 148 mg/dL Critically high -106 [facility] Comment on above: Performed By: #### P OCGLUC ####[facility] [address] [place], [place] [address]QnDr. Cammy Cleaning PROF 14(COMP METB)on 023 Albumin [Mass/Vol] 2.7 g/dL Critically low 3.4-5.0 [facility] Comment on above: Performed By: #### C MP #### [facility] [address] [address] [address] Cammy Cleaning Albumin/Globulin [Mass ratio] 0.8 {ratio} Normal [facility] Comment on above: Performed By: #### C MP #### [facility] [address] [address] [address] Cammy Cleaning ALP [Catalytic activity/Vol] 85 U/L Normal 46-116 [facility] Comment on above: Performed By: #### C MP #### [facility] [address] [address] [address] Cammy Cleaning ALT [Catalytic activity/Vol] 15 U/L Normal 14-59 [facility] Comment on above: Performed By: #### C MP #### [facility] [address] [address] [address] Cammy Cleaning Anion gap [Moles/Vol] 8.3 mmol/L Normal [facility] Comment on above: Performed By: #### C MP #### [facility] [address] [address] [address] Cammy Cleaning AST [Catalytic activity/Vol] 17 U/L Normal 15-37 [facility] Comment on above: Performed By: #### C MP #### [facility] [address] [address] [address] Cammy Cleaning Bilirubin [Mass/Vol] 0.6 mg/dL Normal 0.2-1.0 [facility] Comment on above: Performed By: #### C MP #### [facility] [address] [address] [address] Cammy Cleaning Calcium [Mass/Vol] 8.9 mg/dL Normal 8.5-10.1 [facility] Comment on above: Performed By: #### C MP #### [facility] [address] [address] [address] Cammy Cleaning Chloride [Moles/Vol] 102 mmol/L Normal 98-107 [facility] Comment on above: Performed By: #### C MP #### [facility] [address] [address] [address] Cammy Cleaning CO2 [Moles/Vol] 34.6 mmol/L Critically high 21.0-32.0 [facility] Comment on above: Performed By: #### C MP #### [facility] [address] [place] [address] Dr. Cammy Cleaning Creatinine [Mass/Vol] 0.80 mg/dL Normal 0.55-1.02 [facility] Comment on above: Performed By: #### C MP #### [facility] [address] [place] [address] Dr. Cammy Cleaning EGFR-AF CENTRAL AFRICAN >60 Normal >=60 [facility] Comment on above: Performed By: #### C MP #### [facility] [facility] [address] [place] [address] Dr. Cammy Cleaning EGFR-NON AF CENTRAL AFRICAN >60 Normal >=60 [facility] Comment on above: Performed By: #### C MP #### [facility] [address] [place] [address] Dr. Cammy Cleaning Globulin (S) [Mass/Vol] 3.2 g/dL Normal [facility] Comment on above: Performed By: #### C MP #### [facility] [address] [place] [address] Dr. Cammy Cleaning Glucose [Mass/Vol] 128 mg/dL Critically high 74-106 [facility] Comment on above: Performed By: #### C MP #### [facility] [address] [place] [address] Dr. Cammy Cleaning Potassium [Moles/Vol] 3.9 mmol/L Normal 3.5-5.1 [facility] Comment on above: Performed By: #### C MP #### [facility] [address] [place] [address] Dr. Cammy Cleaning Protein [Mass/Vol] 5.9 g/dL Critically low 6.4-8.2 [facility] Comment on above: Performed By: #### C MP #### [facility] [address] [address] [address] Cammy Cleaning Sodium [Moles/Vol] 141 mmol/L Normal 136-145 [facility] Comment on above: Performed By: #### C MP #### [facility] [address] [address] [address] Cammy Cleaning Urea nitrogen [Mass/Vol] 11.0 mg/dL Normal 7.0-18.0 [facility] Comment on above: Performed By: #### C MP #### [facility] [address] [address] [address] Cammy Cleaning Urea nitrogen/Creatinine [Mass ratio] 13.8 mg/mg Normal [facility] Comment on above: Performed By: #### C MP #### [facility] [address] [address] [address] Cammy Cleaning TSHon 06-07-2022 TSH 2.839 uIU/mL Normal 0.358-3.740 [facility] Comment on above: Performed By: #### T SH ####[facility] [address] [address]Dr. Cammy Cleaning ACETAMINOPHENon 06-06-2022 Acetaminophen [Mass/Vol] ug/mL Normal 10.0-30.0 [facility] Comment on above: Performed By: #### A CET, CARLOS, ETH ####[facility] [address] [address]DrNoreen Cleaning BLOOD GASES BTYon 06-06-2022 02 MODE NASAL CANNULA Normal [facility] Comment on above: Performed By: #### A BG ####[facility] [address] [address]DrNoreen Cleaning ALLENS TEST Positive Normal [facility] Comment on above: Performed By: #### A BG ####[facility] [address] [address]DrNoreen Cleaning Base excess Calc (Bld) [Moles/Vol] 9.4 mmol/L Critically high -2.0-2.0 [facility] Comment on above: Performed By: #### A BG ####[facility] [address] [address]Dr. Cammy Cleaning BIPAP PRESSURE Normal [facility] Comment on above: Performed By: #### A BG ####[facility] [address] [address]Dr. Cammy Cleaning CPAP Normal [facility] Comment on above: Performed By: #### A BG ####[facility] [address] [address]Dr. Cammy Cleaning FIO2 Normal [facility] Comment on above: Performed By: #### A BG ####[facility] [address] [place], [place] [address]Dr. Cammy Cleaning HCO3 (Bld) [Moles/Vol] 35.1 mmol/L Critically high 22.0-26.0 [facility] Comment on above: Performed By: #### A BG ####[facility] [address] [place], [place] [address]Dr. Cammy Cleaning LPM 2 Normal [facility] Comment on above: Performed By: #### A BG ####[facility] [address] [place], [place] [address]Dr. Cammy Cleaning MINUTE VOLUME Normal [facility] Comment on above: Performed By: #### A BG ####[facility] [address] [place], [place] [address]Dr. Cammy Cleaning Oxygen (Bld) [Partial pressure] 59.8 mm[Hg] Critically low 80.0-100.0 [facility] Comment on above: Performed By: #### A BG ####[facility] [address] [place], [place] [address]Dr. Cammy Cleaning Oxygen saturation in Blood 92.4 % Critically low 95.0-100.0 [facility] Comment on above: Performed By: #### A BG ####[facility] [address] [place], [place] [address]Dr. Cammy Cleaning PCO2 63.7 mmHg Critically high 35.0-45.0 [facility] Comment on above: Performed By: #### A BG ####[facility] [address] [address]Dr. Cammy Cleaning PEEP [facility] Comment on above: Performed By: #### A BG ####[facility] [address] [address]Dr. Cammy Cleaning pH (Bld) 7.349 [pH] Critically low 7.350-7.450 [facility] Comment on above: Performed By: #### A BG ####[facility] [address] [address]Dr. Cammy Cleaning PIP [facility] Comment on above: Performed By: #### A BG ####[facility] [address] [address]Dr. Cammy Cleaning PS [facility] Comment on above: Performed By: #### A BG ####[facility] [address] [address]Dr. Cammy Cleaning PUNCTURE SITE LB [facility] Comment on above: Performed By: #### A BG ####[facility] [address] [address]Dr. Cammy Cleaning RATE [facility] Comment on above: Performed By: #### A BG ####[facility] [address] [address]Dr. Cammy Cleaning VENT MODE [facility] Comment on above: Performed By: #### A BG ####[facility] [address] [address]Dr. Cammy Cleaning [place] [facility] Comment on above: Performed By: #### A BG ####[facility] [address] [address]Dr. Cammy Cleaning BNPon 06-06-2022 Natriuretic peptide B (Bld) [Mass/Vol] 81.0 pg/mL Normal <=900.0 [facility] Comment on above: Performed By: #### C BC #### [facility] [address] [address] [address] Cammy Cleaning CARDIAC PILLO 3-6on 3 CK [Catalytic activity/Vol] 205 U/L Critically high 26-192 [facility] Comment on above: Performed By: #### C MREP #### [facility] [address] [address] [address] Cammy Cleaning CK.MB [Mass/Vol] 0.77 ng/mL Normal <=3.60 [facility] Comment on above: Performed By: #### C MREP #### [facility] [address] [place] [address] Dr. Cammy Cleaning HSTROP 7.5 pg/mL Normal 4.0-51.3 [facility] Comment on above: Result Comment: CUT- OFF POINTS HAVE BEEN ESTABLISHED BASED ON THE FOURTH UNIVERSAL DEFINITIONS OF MYOCARDIAL INFARCTION. THE UPPER REFERENCE LIMIT (URL) OF TROPONIN, DEFINED THE 99TH PERCENTILE OF cTnI DISTRIBUTION IN A REFERENCE POPULATION, HAS BEEN CONFIRMED THE DECISION THRESHOLD FOR ID DIAGNOSIS. Performed By: #### C MREP #### [facility] [address] [place] [address] Dr. Cammy Cleaning CK [Catalytic activity/Vol] 220 U/L Critically high 26-192 [facility] Comment on above: Performed By: #### C BC #### [facility] [address] [place] [address] Dr. Cammy Cleaning CK.MB [Mass/Vol] 0.86 ng/mL Normal <=3.60 [facility] Comment on above: Performed By: #### C BC #### [facility] [address] [place] [address] Dr. Cammy Cleaning HSTROP 8.7 pg/mL Normal 4.0-51.3 [facility] Comment on above: Result Comment: CUT- OFF POINTS HAVE BEEN ESTABLISHED BASED ON THE FOURTH UNIVERSAL DEFINITIONS OF MYOCARDIAL INFARCTION. THE UPPER REFERENCE LIMIT (URL) OF TROPONIN, DEFINED THE 99TH PERCENTILE OF cTnI DISTRIBUTION IN A REFERENCE POPULATION, HAS BEEN CONFIRMED THE DECISION THRESHOLD FOR ID DIAGNOSIS. Performed By: #### C BC #### [facility] [address] [address] [address] Cammy Cleaning CBC AUTO DIFFon 06-06-2022 BASO # 0.1 103/ul Normal 0.0-0.1 [facility] Comment on above: Performed By: #### C BC #### [facility] [address] [place] [address] Dr. Cammy Cleaning Basophils/100 WBC (Bld) 0.7 % Normal 0.2-2.0 [facility] Comment on above: Performed By: #### C BC #### [facility] [address] [place] [address] Dr. Cammy Cleaning EO # 0.6 103/ul Normal 0.0-0.7 [facility] Comment on above: Performed By: #### C BC #### [facility] [address] [place] [address] Dr. Cammy Cleaning Eosinophils/100 WBC (Bld) 5.4 % Normal 0.9-7.0 [facility] Comment on above: Performed By: #### C BC #### [facility] [address] [place] [address] Dr. Cammy Cleaning Erythrocyte distribution width (RBC) [Ratio] 14.6 % Normal 11.0-15.0 [facility] Comment on above: Performed By: #### C BC #### [facility] [address] [place] [address] Dr. Cammy Cleaning Hematocrit (Bld) [Volume fraction] 47.2 % Normal 36.0-48.0 [facility] Comment on above: Performed By: #### C BC #### [facility] [address] [place] [address] Dr. Cammy Cleaning Hemoglobin (Bld) [Mass/Vol] 15.4 g/dL Normal 12.0-16.0 [facility] Comment on above: Performed By: #### C BC #### [facility] [address] [place] [address] Dr. Cammy Cleaning IG # 0.19 10e3/ul Critically high 0.00-0.03 [facility] Comment on above: Performed By: #### C BC #### [facility] [address] [place] [address] Dr. Cammy Cleaning IG % 1.7 % Critically high 0.0-0.5 [facility] Comment on above: Performed By: #### C BC #### [facility] [address] [place] [address] Dr. Cammy Cleaning LYMPH # 1.8 103/ul Normal 1.2-3.8 [facility] Comment on above: Performed By: #### C BC #### [facility] [address] [place] [address] Dr. Cammy Cleaning Lymphocytes/100 WBC (Bld) 16.0 % Critically low 20.5-60.0 [facility] Comment on above: Performed By: #### C BC #### [facility] [address] [place] [address] Dr. Cammy Cleaning MANUAL DIFF REQ NO Normal [facility] Comment on above: Performed By: #### C BC #### [facility] [address] [place] [address] Dr. Cammy Cleaning MCH (RBC) [Entitic mass] 27.7 pg Normal 26.7-34.0 [facility] Comment on above: Performed By: #### C BC #### [facility] [address] [place] [address] Dr. Cammy Cleaning MCHC (RBC) [Mass/Vol] 32.6 g/dL Normal 29.9-35.2 [facility] Comment on above: Performed By: #### C BC #### [facility] [address] [place] [address] Dr. Cammy Cleaning MCV (RBC) [Entitic vol] 85.0 fL Normal 81.0-99.0 [facility] Comment on above: Performed By: #### C BC #### [facility] [address] [place] [address] Dr. Cammy Cleaning MONO # 0.8 103/ul Normal 0.3-0.8 [facility] Comment on above: Performed By: #### C BC #### [facility] [address] [place] [address] Dr. Cammy Cleaning Monocytes/100 WBC (Bld) 6.8 % Normal 1.7-12.0 [facility] Comment on above: Performed By: #### C BC #### [facility] [address] [place] [address] Dr. Cammy Cleaning NEUT # 7.8 103/ul Critically high 1.4-6.5 [facility] Comment on above: Performed By: #### C BC #### [facility] [address] [place] [address] Dr. Cammy Cleaning Neutrophils/100 WBC (Bld) 69.4 % Normal 43.0-75.0 [facility] Comment on above: Performed By: #### C BC #### [facility] [address] [place] [address] Dr. Cammy Cleaning Platelet mean volume (Bld) [Entitic vol] 9.0 fL Critically low 9.5-13.5 [facility] Comment on above: Performed By: #### C BC #### [facility] [address] [place] [address] Dr. Cammy Cleaning PLT 162 103/ul Normal 150-450 [facility] Comment on above: Performed By: #### C BC #### [facility] [address] [place] [address] Dr. Cammy Cleaning RBC 5.55 106/ul Critically high 4.20-5.40 [facility] Comment on above: Performed By: #### C BC #### [facility] [address] [place] [address] Dr. Cammy Cleaning WBC 11.3 103/ul Critically high 4.0-11.0 [facility] Comment on above: Performed By: #### C BC #### [facility] [address] [place] [address] ABD/PELV W CONon [...] by: Christo SARAVIA Date: 2022-06-06 02:29 Normal [facility] CT CSPINE WO CONon 3 [...] WILL HOGAN Date: 2022-06-06 02:09 Normal [facility] CT HEAD WO CONon 06-06-2022 [...] Christo SARAVIA Date: 2022-06-06 02:07 Normal [facility] CT LSPINE WO CONon 3 [...] by: Christo SARAVIA Date: 2022-06-06 02:29 Normal [facility] CTA ABD/PELVIS WO W CONon [...] by: ANISH JACKSON Date: 2022-06-06 04:15 Normal [facility] Covid-19 PCR (CVDTBH)on SARS-CoV-2 (COVID-19) RNA JOSE L+probe Ql (Unsp spec) Not detected Normal NOT DETECTED [facility] Comment on above: Result Comment: [...] for this test is supported by the [employer] Professor of Health and Human Service's declaration that [...] used). Performed By: #### C BC #### [facility] [address] [place] [address] Dr. Cammy Cleaning DRUG SCREEN RAPID (URINE)on 06-06-2022 AMP Negative Normal NEGATIVE [facility] Comment on above: Performed By: #### D FLOYD, ERUR #### [facility] [address] [place] [address] Dr. Cammy Cleaning BAR Negative Normal NEGATIVE [facility] Comment on above: Performed By: #### D FLOYD, ERUR #### [facility] [address] [address] [address] Cammy Cleaning BUP Negative Normal NEGATIVE [facility] Comment on above: Performed By: #### D FLOYD, ERUR #### [facility] [address] [place] [address] Dr. Cammy Cleaning BZO Negative Normal NEGATIVE [facility] Comment on above: Performed By: #### D FLOYD, ERUR #### [facility] [address] [place] [address] Dr. Cammy Cleaning JEM Negative Normal NEGATIVE [facility] Comment on above: Performed By: #### D PATRICIAD, ERUR #### [facility] [address] [place] [address] Dr. Cammy Cleaning CUT-OFFS SEE BELOW Normal [facility] Comment on above: Result Comment: [...] Performed By: #### D RUGMARYLUD, ERUR #### [facility] [address] [place] [address] Dr. Cammy Cleaning DRUG CUT HEADER DRUG CLASS TEST SYSTEM CUT-OFF CONCENTRATIONS ARE FOLLOWS: Normal [facility] Comment on above: Performed By: #### D RUGDESTINI, ERUR #### [facility] [address] [place] [address] Dr. Cammy Cleaning mAMP Negative Normal NEGATIVE [facility] Comment on above: Performed By: #### D PATRICIAD, ERUR #### [facility] [address] [place] [address] Dr. Cammy Cleaning MTD Negative Normal NEGATIVE [facility] Comment on above: Performed By: #### D RUGRPD, ERUR #### [facility] [address] [place] [address] Dr. Cammy Cleaning OPI Positive Abnormal NEGATIVE [facility] Comment on above: Performed By: #### D BERNARDRPD, ERUR #### [facility] [address] [place] [address] Dr. Cammy Cleaning OXY Negative Normal NEGATIVE [facility] Comment on above: Performed By: #### D RUGRPD, ERUR #### [facility] [address] [address] [address] Cammy Cleaning PCP Negative Normal NEGATIVE [facility] Comment on above: Performed By: #### D FLOYD, ERUR #### [facility] [address] [address] [address] Cammy Cleaning PPX Negative Normal NEGATIVE [facility] Comment on above: Performed By: #### D FLOYD, ERUR #### [facility] [address] [place] [address] Dr. Cammy Cleaning TCA Negative Normal NEGATIVE [facility] Comment on above: Performed By: #### D FLOYD, ERUR #### [facility] [address] [place] [address] Dr. Cammy Cleaning THC Negative Normal NEGATIVE [facility] Comment on above: Performed By: #### D FLOYD, ERUR #### [facility] [address] [place] [address] Dr. Cammy Cleaning ER URINE PROFILEon 3 Bilirubin Ql (U) Negative Normal NEGATIVE [facility] Comment on above: Performed By: #### D FLOYD, ERUR #### [facility] [address] [place] [address] Dr. Cammy Cleaning Clarity (U) CLEAR Normal CLEAR [facility] Comment on above: Performed By: #### D FLOYD, ERUR #### [facility] [address] [place] [address] Dr. Cammy Cleaning Color (U) YELLOW Normal YELLOW [facility] Comment on above: Performed By: #### D FLOYD, ERUR #### [facility] [address] [place] [address] Dr. Cammy Cleaning ERUAHMayda A micrscopic examination will be performed if indicated. Normal [facility] Comment on above: Performed By: #### D FLOYD, ERUR #### [facility] [address] [place] [address] Dr. Cammy Cleaning Glucose Ql (U) >1000 Abnormal NEGATIVE [facility] Comment on above: Performed By: #### D FLOYD, ERUR #### [facility] [address] [place] [address] Dr. Cammy Cleaning Hemoglobin Ql (U) Negative Normal NEGATIVE [facility] Comment on above: Performed By: #### D FLOYD, ERUR #### [facility] [address] [place] [address] Dr. Cammy Cleaning Ketones Ql (U) Negative Normal NEGATIVE [facility] Comment on above: Performed By: #### D FLOYD, ERUR #### [facility] [address] [place] [address] Dr. Cammy Cleaning LEUKOCYTES Negative Normal NEGATIVE [facility] Comment on above: Performed By: #### D FLOYD, ERUR #### [facility] [address] [place] [address] Dr. Cammy Cleaning Nitrite Ql (U) Negative Normal NEGATIVE [facility] Comment on above: Performed By: #### D FLOYD, ERUR #### [facility] [address] [place] [address] Dr. Cammy Cleaning pH (U) 5.0 [pH] Normal 5-9 [facility] Comment on above: Performed By: #### D FLOYD, ERUR #### [facility] [address] [place] [address] Dr. Cammy Cleaning SPEC GRAVITY 1.010 Normal 1.005-<=1.025 [facility] Comment on above: Performed By: #### Mayda BARRIENTOS, ERUR #### [facility] [address] [place] [address] Dr. Cammy Cleaning UA PROTEIN TRACE Normal NEGATIVE/ TRACE [facility] Comment on above: Performed By: #### D FLOYD, ERUR #### [facility] [address] [place] [address] Dr. Cammy Cleaning UR MICRO IND NOT INDICATED Normal [facility] Comment on above: Performed By: #### D FLOYD, ERUR #### [facility] [address] [place] [address] Dr. Cammy Cleaning Urobilinogen Qn (U) 0.2 {Flory'U}/dL Normal 0.2 - 1. 0 [facility] Comment on above: Performed By: #### D RUGRPD, ERUR #### [facility] [address] [address] [address] Cammy Cleaning ETHANOL (BLD ALC)on 06-06-19 ALC NOTE NOTE: 80 mg/dl is th e legal limit for a blood alcohol level Normal [facility] Comment on above: Performed By: #### A CARLOS STEVE, KAILEY ####[facility] [address] [address]Dr. Cammy Cleaning Ethanol [Mass/Vol] mg/dL Normal [facility] Comment on above: Performed By: #### A CARLOS STEVE, KAILEY ####[facility] [address] [address]Dr. Cammy Cleaning POINT OF CARE GLUCOSEon Glucose [Mass/Vol] 180 mg/dL Critically high -106 [facility] Comment on above: Performed By: #### P OCGLUC #### [facility] [address] [address] [address] Cammy Cleaning Glucose [Mass/Vol] 133 mg/dL Critically high [address] [place] [address] Comment on above: Performed By: #### C BC #### [facility] [address] [address] [address] Cammy Cleaning Glucose [Mass/Vol] 201 mg/dL Critically high [address] [place] [address] Comment on above: Performed By: #### C BC #### [facility] [address] [address] [address] Cammy Cleaning Glucose [Mass/Vol] 112 mg/dL Critically high [address] [place] [address] Comment on above: Performed By: #### P OCGLUC #### [facility] [address] [address] [address] Cammy Cleaning PROF CHEM 8 (BAS METB)on Anion gap [Moles/Vol] 6.7 mmol/L Normal [facility] Comment on above: Performed By: #### C BC #### [facility] [address] [address] [address] Cammy Cleaning Calcium [Mass/Vol] 8.7 mg/dL Normal 8.5-10.1 [facility] Comment on above: Performed By: #### C BC #### [facility] [address] [address] [address] Cammy Cleaning Chloride [Moles/Vol] 102 mmol/L Normal 98-107 [facility] Comment on above: Performed By: #### C BC #### [facility] [address] [place] [address] Dr. Cammy Cleaning CO2 [Moles/Vol] 35.6 mmol/L Critically high 21.0-32.0 [facility] Comment on above: Performed By: #### C BC #### [facility] [address] [place] [address] Dr. Cammy Cleaning Creatinine [Mass/Vol] 0.93 mg/dL Normal 0.55-1.02 [facility] Comment on above: Performed By: #### C BC #### [facility] [address] [place] [address] Dr. Cammy Cleaning EGFR-AF CENTRAL AFRICAN >60 Normal >=60 [facility] Comment on above: Performed By: #### C BC #### [facility] [address] [place] [address] Dr. Cammy Cleaning EGFR-NON AF CENTRAL AFRICAN >60 Normal >=60 [facility] Comment on above: Performed By: #### C BC #### [facility] [address] [address] [address] Cammy Cleaning Glucose [Mass/Vol] 169 mg/dL Critically high 74-106 [facility] Comment on above: Performed By: #### C BC #### [facility] [address] [place] [address] Dr. Cammy Cleaning Potassium [Moles/Vol] 4.3 mmol/L Normal 3.5-5.1 [facility] Comment on above: Performed By: #### C BC #### [facility] [address] [place] [address] Dr. Cammy Cleaning Sodium [Moles/Vol] 140 mmol/L Normal 136-145 [facility] Comment on above: Performed By: #### C BC #### [facility] [address] [place], [place] [address] Dr. Cammy Cleaning Urea nitrogen [Mass/Vol] 15.0 mg/dL Normal 7.0-18.0 [facility] Comment on above: Performed By: #### C BC #### [facility] [address] [place], [place] [address] Dr. Cammy Cleaning Urea nitrogen/Creatinine [Mass ratio] 16.1 mg/mg Normal [facility] Comment on above: Performed By: #### C BC #### [facility] [address] [place], [place] [address] Dr. Cammy Cleaning SALICYLATEon 06-06-2022 SALICYLATE 1.6 mg/dL Normal <=19.9 [facility] Comment on above: Performed By: #### A CET, CARLOS, ETH ####[facility] [address] [place], [place] [address]EhDr. Cammy Cleaning XR CHEST 1 Von 06-06-2022 [...] by: CELESTE LUNA Date: 2022-06-06 02:58 Normal [facility] MRI KNEE LT WO CONon [...] by: BURT FIGUEROA Date: 2022-05-10 15:59 Normal [facility] Progress Noteson 01-25-2022 Food Equipment Service Technician Authentication Interface Message Text EMERGENCY TRIAGE, TREAT AND TRANSPORT (ET3) DOCUMENTATION OF TELEHEALTH VISIT Date / Time: 01/14/2022729 Name: Sanna Corrales : 1960 SSN: (Not on file) EMS Agency: [facility] [] Verbal consent obtained [] Implied consent - patient with potential emergency medical condition requiring assessment of capacity to refuse treatment and/or transport VITAL SIGNS: see flowsheet documentation Reason for Telehealth Visit: Chief Complaint Patient presents with Fall History of Present Ilness: 61 yo female who tripped over her small dog in the [facility]. EMS called for lift assist. No LOC, [...] Completed by: Tyler Ingram DO Normal [facility] XR CSPINE 2_3 VIEWSon 2021 XR [...] by: CHRISTEN BAKER Date: 2022-01-04 19:14 Normal [facility] CT SINUSES WO CONon 11-23-19 [...] by: ANISH ROJO Date: 2021-11-22 13:29 Normal [facility] Vital Signs Date Time Vital Sign Value Performing Clinician Facility 04-17-2024 13:44-0500 Body mass index (BMI) [Ratio] 53.12 kg/m2 Yarelis Daily-Nossek CYBER INCIDENT RESPONDER-DECORATING INSPECTOR Work Phone: [facility] 04-17-2024 13:44-0500 Body weight 123.38 kg Yarelis Daily-Nossek CYBER INCIDENT RESPONDER-DECORATING INSPECTOR Work Phone: [facility] 04-17-2024 13:44-0500 Diastolic blood pressure 72 mm[Hg] Yarelis Daily-Nossek CYBER INCIDENT RESPONDER-DECORATING INSPECTOR Work Phone: [facility] 04-17-2024 13:44-0500 Heart rate 71 /min Yarelis Daily-Nossek CYBER INCIDENT RESPONDER-DECORATING INSPECTOR Work Phone: [facility] 04-17-2024 13:44-0500 SaO2% (BldA) [Mass fraction] 91 % Yarelis Daily-Nossek CYBER INCIDENT RESPONDER-DECORATING INSPECTOR Work Phone: [facility] 04-17-2024 13:44-0500 Systolic blood pressure 116 mm[Hg] Yarelis Daily-Nossek CYBER INCIDENT RESPONDER-DECORATING INSPECTOR Work Phone: [facility] 03-27-2024 15:05-0400 Body height 152.4 cm Erin Hemmer PA Work Phone: [facility] 03-27-2024 15:05-0400 Body mass index (BMI) [Ratio] 52.97 kg/m2 Erin Hemmer PA Work Phone: [facility] 03-27-2024 15:05-0400 Body weight 123.02 kg Erin Hemmer PA Work Phone: [facility] 03-27-2024 15:05-0400 Diastolic blood pressure 84 mm[Hg] Erin Hemmer PA Work Phone: [facility] 03-27-2024 15:05-0400 Heart rate 50 /min Erin Hemmer PA Work Phone: [facility] 03-27-2024 15:05-0400 Respiratory rate 18 /min Erin Tariq PA Work Phone: [facility] 03-27-2024 15:05-0400 SaO2% (BldA) [Mass fraction] 96 % Erin Tariq PA Work Phone: [facility] 03-27-2024 15:05-0400 Systolic blood pressure 128 mm[Hg] Erin Tariq PA Work Phone: [facility] 03-14-2024 09:55-0400 Body mass index (BMI) [Ratio] 53.51 kg/m2 Yarelis Daily-Nossek CYBER INCIDENT RESPONDER-DECORATING INSPECTOR Work Phone: [facility] 03-14-2024 09:55-0400 Body weight 124.29 kg Yarelis Daily-Nossek CYBER INCIDENT RESPONDER-DECORATING INSPECTOR Work Phone: [facility] 03-14-2024 09:55-0400 Diastolic blood pressure 82 mm[Hg] Yarelis Daily-Nossek CYBER INCIDENT RESPONDER-DECORATING INSPECTOR Work Phone: [facility] 03-14-2024 09:55-0400 Heart rate 72 /min Yarelis Daily-Nossek CYBER INCIDENT RESPONDER-DECORATING INSPECTOR Work Phone: [facility] 03-14-2024 09:55-0400 SaO2% (BldA) [Mass fraction] 85 % Yarelis Daily-Nossek CYBER INCIDENT RESPONDER-DECORATING INSPECTOR Work Phone: [facility] 03-14-2024 09:55-0400 Systolic blood pressure 134 mm[Hg] Yarelis Daily-Nossek CYBER INCIDENT RESPONDER-DECORATING INSPECTOR Work Phone: [facility] 01-25-2022 11:40-0400 Diastolic blood pressure 82 mm[Hg] [facility] 01-25-2022 11:40-0400 Heart rate 76 /min [facility] 01-25-2022 11:40-0400 Respiratory rate 20 /min [facility] 01-25-2022 11:40-0400 SaO2% (BldA) [Mass fraction] 94 % [facility] Comment on above: ra 01-25-2022 11:40-0400 Systolic blood pressure 123 mm[Hg] [facility] Encounters Encounter Date Encounter Type Care Provider Facility Start: 04-17-2024 End: 04-17-2024 Bamboo flowsheet Yarelis Vail Daily-Nossek CYBER INCIDENT RESPONDER-DECORATING INSPECTOR Work Phone: [facility] Start: 04-17-2024 End: 04-17-2024 Bamboo flowsheet Yarelis Vail Daily-Nossek CYBER INCIDENT RESPONDER-DECORATING INSPECTOR Work Phone: [facility] Start: 04-17-2024 End: 04-17-2024 Office outpatient visit 40 minutes Yarelis Vail Daily-Nossek CYBER INCIDENT RESPONDER-DECORATING INSPECTOR Work Phone: [facility] Comment on above: JENN (generalized anx iety disorder) ([facility]) Start: 04-17-2024 End: 04-17-2024 ambulatory YARELIS Yared DAILY-NOSSEK Not Available Start: 04-15-2024 End: 04-15-2024 ambulatory Divya Alfaro MD Facility:[facility] Start: 03-28-2024 End: 03-28-2024 Fiorella Baca DO Work Phone: [facility] Comment on above: Age-related nuclear cataract of both eyes Start: 03-27-2024 End: 03-27-2024 Office outpatient visit 25 minutes Erin Tariq PA Work Phone: [facility] Comment on above: Type 2 diabetes torsten itus with other specified complication, without long-term current use of insulin ([facility]) (Primary Dx); Limitation of activities due to [...] 03-25-2024 End: 03-25-2024 ambulatory Divya Alfaro MD Facility:[facility] Start: 03-14-2024 End: 03-14-2024 Bamboo flowsheet Yarelis Vail Daily-Nossek CYBER INCIDENT RESPONDER-DECORATING INSPECTOR Work Phone: [facility] Start: 03-14-2024 End: 03-14-2024 Bamboo flowsheet Yarelis Vail Daily-Nossek CYBER INCIDENT RESPONDER-DECORATING INSPECTOR Work Phone: [facility] Start: 03-14-2024 End: 03-14-2024 Office outpatient new 60 minutes Yarelis Vail Daily-Nossek CYBER INCIDENT RESPONDER-DECORATING INSPECTOR Work Phone: [facility] Comment on [...] Not Available Start: 05-09-2023 ambulatory Pratik Ramos acility:[facility] Start: 09-01-2022 ambulatory NARENDRANATH LAKSHMIPATHY . [...] Start: 01-14-2022 End: 01-14-2022 ambulatory [facility] Emergenc y Triage, Treat and Transport Start: 01-14-2022 End: 01-14-2022 Emergency department patient visit [facility] Emergency Triage, Treat and Transport Comment [...] Screening for malign ant neoplasm of colon [facility] Start: 01-26-2025 Glaucoma screening Diabetes: R etinopathy Screening [facility] Start: 12-05-2024 Medicare Annual Wellness (AWV) Medicare Annual Wellness (AWV) [facility] Start: 06-27-2024 Hemoglobin A1c measurement Diabetes: Hemoglobin A1C [facility] Start: 05-17-2024 Screening for malign ant neoplasm of breast Mammogram [facility] Start: 05-15-2024 End: 05-15-2024 Patient encounter procedure 05/15/2024 1:30 PM EST Office Visit [facility] [address] [facility] [address] [place] [address] Yarelis Gallardo, CYBER [facility] [address] [place] [address] [facility] Start: 04-17-2024 End: 04-17-2024 Patient encounter procedure [facility] Comment on above: Arrived Start: 04-11-2024 End: 04-11-2024 Professional / ancillary services management 04/11/2024 2:00 PM EST Ancillary Procedure [facility] [address] [place] [phone] [facility] Start: 03-27-2024 End: 03-27-2024 Patient encounter procedure 03/27/2024 3:00 PM EDT Office Visit [facility] [address] [facility] [address] [place] [address] Erin Tariq PA [address] [place] [address] Arrived [facility] Comment on above: Arrived Start: 03-27-2024 End: 03-27-2025 Microalbumin/Creatinine panel in random Urine Microalbumin / creatinine, urine ratio Lab Routine Type 2 diabetes mellitus with other specified complication, without long-term current use of insulin ([facility]) Expected: 03/27/2024 (Approximate), Expires: 03/27/2025 [facility] Work Phone: Comment on above: Expected: 03/27/2024 (Approximate), Expires: 03/27/2025 Start: 03-25-2024 End: 03-25-2024 Patient encounter procedure 03/25/2024 1:00 PM EDT Office Visit [facility] [address] [place] [address] Erin Tariq PA [address] [place] [address] [facility] Start: 03-23-2024 Urine screening for protein Diabetes: Urine Protein Screening [facility] Start: 03-22-2024 Medicare Annual Wellness (AWV) Medicare Annual Wellness (AWV) [facility] Start: 03-14-2024 End: 03-14-2024 Patient encounter procedure 03/14/2024 9:30 AM EDT Office Visit [facility] [address] [place] [address] Yarelis Gallardo, CYBER INCIDENT [facility] [address] [place] [address] Arrived [facility] Comment on above: Arrived Start: 03-07-2024 Hemoglobin A1c measurement Diabetes: Hemoglobin A1C [facility] Start: 07-18-2023 End: 07-18-2023 Patient encounter procedure 07/18/2023 2:15 PM EST Office Visit [facility] [address] [place] [phone] Swathi Baca DO [address] [place] [address] [facility] Start: 07-05-2023 End: 07-05-2023 Patient encounter procedure 07/05/2023 2:00 PM EST Office Visit [facility] [address] [place] [address] Erin Tariq PA [address] [place] [address] [facility] Start: 06-22-2023 Hemoglobin A1c measurement Diabetes: Hemoglobin A1C [facility] Start: 02-26-2022 Influenza vaccination Influenza Vacc ine (#1) [facility] Start: 2011 Measurement of occul t blood in single stool specimen FIT [facility] Start: 2011 Screening for malign ant neoplasm of breast [facility]amm[facility] Start: 2011 Screening for malign ant neoplasm of colon CRC Screening [facility] Start: 2011 Shingles (RZV) Vacci ne (1 of 2) Shingles (RZV) Vaccine (1 of 2) [facility] Start: 2006 Cholesterol [Mass/volume] in Serum or Plasma Cholesterol [facility] Start: 1991 Screening for malign ant neoplasm of cervix [facility] Start: 1982 Screening for malign ant neoplasm of cervix Pap Smear [facility] Start: 1979 Hepatitis C screening Hepatitis C An tibody [facility] Start: 1979 Tetanus + diphtheria + acellular pertussis vaccine (product) Tdap Booster [facility] Start: 1976 HIV screening HIV Test [facility] Start: 1961 COVID-19 Vaccine (#1) COVID-19 Vacci ne (#1) [facility] Start: 1961 Screening for malign ant neoplasm of colon [facility] Immunizations Immunization Date Immunization Notes Care Provider [facility] 02-21-2024 influenza, seasonal, injectable, preservative free Yarelis Daily-Nossek CYBER INCIDENT RESPONDER-DECORATING INSPECTOR Work Phone: [facility] 12-06-2023 tetanus toxoid, redu aimee diphtheria toxoid, and acellular pertussis vaccine, adsorbed Yarelis Daily-Nossek CYBER INCIDENT RESPONDER-DECORATING INSPECTOR Work Phone: [facility] 04-13-2023 Influenza, injectabl e, Madin Andria Canine Kidney, preservative free, quadrivalent Yarelis Daily-Nossek CYBER INCIDENT RESPONDER-DECORATING INSPECTOR Work Phone: [facility] 04-13-2023 RSV, recombinant, pr otein subunit RSVpreF, adjuvant reconstitu, 120mcg/0.5mL, PF (Arexvy) Yarelis Gallardo CYBER INCIDENT RESPONDER-DECORATING INSPECTOR Work Phone: [facility] 06-13-2022 Pneumococcal Conjuga te PCV 20 Erin Hemmer PA Work Phone: [facility] 03-31-2022 Influenza, injectabl e, Madin Andria Canine Kidney, preservative free, quadrivalent Erin Hemmer PA Work Phone: [facility] 03-24-2021 influenza, injectabl e, quadrivalent, contains preservative Erin Hemmer PA Work Phone: [facility] 03-10-2020 Influenza, injectabl e, Madin [place] Canine Kidney, preservative free, quadrivalent Erin Hemmer PA Work Phone: [facility] 03-12-2019 influenza, injectabl e, madin andria canine kidney, preservative free Erin Hemmer PA Work Phone: [facility] 04-06-2018 Influenza, injectabl e, Madin Andria Canine Kidney, preservative free, quadrivalent Erin Hemmer PA Work Phone: [facility] 02-21-2017 pneumococcal polysaccharide vaccine, 23 valent Erin Hemmer PA Work Phone: [facility] 02-21-2017 seasonal influenza, intradermal, preservative free Erin Hemmer PA Work Phone: [facility] 04-19-2016 influenza, injectabl e, quadrivalent, preservative free Erin Hemmer PA Work Phone: [facility] 02-04-2015 seasonal influenza, intradermal, preservative free Erin Hemmer PA Work Phone: [facility] 03-25-2008 seasonal influenza, intradermal, preservative free Erin Hemmer PA Work Phone: [facility] Payers Date Payer Category Payer Medicare (Managed Care) [facility] [id number] 2023 Private Health Insurance [facility] [id number] 2023 Unknown [id number] 2023 Unknown [id number] 2022 Self-pay 2022 Medicare [id number] 2022 Unknown SP/UNINSURED PEN DING FINANCIAL PROGRAM EVALUATION 9 2022-Present [phone] [address] [place] [address] Other [id number] 2022 Unknown 9 2021 Unknown [id number] 1960 Unknown [id number] 2.16.840.1.464648.3.579. 2.732 1960 Unknown [id number] 2.16.840.1.645222.3.579. 2.593 1960 Unknown [id number] 2.16.840.1.846243.3.579. 2.593 1961 Unknown [id number] 2.16.840.1.673473.3.579. 2.593 1961 Unknown [id number] 2.16.840.1.349480.3.579. 2.593 1961 Unknown [id number] 2.16.840.1.200539.3.579. 2.593 1961 Unknown [id number] 2.16.840.1.793476.3.579. 2.593 1961 Unknown [id number] 2.16.840.1.569467.3.579. 2.593 1961 Unknown [id number] 2.16.840.1.006150.3.579. 2.593 1961 Unknown [id number] 2.16.840.1.478016.3.579. 2.593 1961 Unknown [id number] 2.16.840.1.005211.3.579. 2.196 1961 Unknown [id number] 2.16.840.1.899407.3.579. 2.196 1961 Unknown [id number] 2.16.840.1.977304.3.579. 2.1259 1961 Unknown [id number] 2.16.840.1.402672.3.579. 2.1259 1961 Unknown [id number] 2.16.840.1.447171.3.579. 2.1259 1961 Unknown [id number] 2.16.840.1.884627.3.579. 2.1259 1961 Unknown [id number] 2.16.840.1.779834.3.579. 2.1259 1961 Unknown [id number] 2.16.840.1.587740.3.579. 2.1259 1961 Unknown [id number] 2.16.840.1.809801.3.579. 2.1259 1961 Unknown [id number] 2.16.840.1.570857.3.579. 2.1259 1961 Unknown [id number] 2.16.840.1.244805.3.579. 2.1259 1961 Unknown [id number] 2.16.840.1.767615.3.579. 2.1259 1961 Unknown [id number] 2.16.840.1.610660.3.579. 2.1259 Unknown [id number] 2.16.840.1.950942.3.579. 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 Check blood glucose daily.. [id number] Start: 03-22-2023 Goals Date Patient Goal Desired Activity /State Personal health goal Clinical Notes 01-25-2022 to 04-17-2024 [facility] 04/17/2024 1:30 PM TEETEE Sequeira - 03/27/2024 3:00 PM Ritu [facility] 03/14/2024 9:30 AM Sidney [...] respiratory distress syndrome ([facility]) 2014 Allergic Allergic rhinitis due to allergen Arthritis Asthma ([facility]) Bipolar 1 disorder ([facility]) 1991 most recent episode (or current) depressed, unspecified Bronchitis Calculus of gallbladder without mention of cholecystitis or obstruction Carpal tunnel syndrome left Cataract Cholecystitis Closed fracture of ankle Congenital heart failure ([facility]) COPD (chronic obstructive pulmonary disease) ([facility]) Degeneration of lumbar or lumbosacral intervertebral disc Diabetes mellitus ([facility]) without mention of complication, type II or unspecified type, not stated as uncontrolled Disease of thyroid gland ([facility]) Dry eyes Essential hypertension, benign ([facility]) Essential hypertension, malignant ([facility]) Extremity ischemia 2013 rt lower Fracture ankle Headache Hernia of abdominal wall without mention of obstruction or gangrene History of being hospitalized 06/06/2022 AMS due to Med Overuse, Hypoxia, Fall, Acute on Chronic RF Hx of migraine headaches Hypertension ([facility]) Hypothyroidism ([facility]) IBS (irritable bowel syndrome) Influenza with pneumonia Manic episode ([facility]) 1985 Meniere disease Morbid obesity ([facility]) Myalgia and myositis Osteoarthritis Osteoporosis ([facility]) Personal history of medical treatment 2013 cardiopulmonary collapse and acute respiratory failure( Respiratory failure ([facility]) Rheumatoid arthritis ([facility]) Rotator cuff tear right Skin lesion Spondylosis unspecified site without mention of myelopathy Suicidal ideations 2012 Thyroid disease ([facility]) ALLERGIES: Allergies Allergen Reactions Ambien [Zolpidem] Other [...] acute respiratory failure OTHER SURGICAL HISTORY ORIF [place] KNEE SCOPE,DIAGNOSTIC Right 02/04/2020 Dr. 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 Parekh at [facility]. Patient had also seen Dr. Huddleston [...] 10mg twice a day for one week Atns5as twice a day week Then 5mg once a day for week then discontinue Add vistaril 25mg q 8hours prn for anxiety Refer to Psychotherapy Patient was seen Face to Face, Reviewed chart documents and documentation, Visit time :40min F/U 6 weeks documented in this encounter [facility] 03-27-2024 History of Present illness Narrative [...] a 64 y.o. female who presents for [facility] ER follow up. Flowsheet Row Patient Outreach from 03/26/2024 in [facility] with Octavia Monday, LATASHA Hospital Information ED, Hospital or Nursing Home Facility Discharge? ED Patient has been contacted within 1 week of being seen in the ED No Have two attempts been made to contact the patient within one week of being seen in the ED? No Discharge Date 03/18/24 Discharged To: Home Setting Discharge Hospital [facility] Engagement Call Start Time 1030 [...] Suppl device USE DIRECTED 100 strip 2 Ntthtft-Gvxcikdtowv-Oultmzzjvy (Breztri Aerosphere) 160-9-4.8 MCG/ACT aerosol Inhale 2 [...] blood glucose daily 100 each 3 HYDROcodone-acetaminophen (Wall) 5-325 MG tablet Take 1 tablet by [...] NEEDED 7 DAY(S) 30 g 2 [DISCONTINUED] mkovddny-wzlhwwtnq-miuwzmioehujyt (Cortisporin) 3.5-25759-1 otic suspension USE 3 DROPS IN EACH [...] Bipolar 1 disorder ([facility]) 1992 most recent episode (or current) depressed, unspecified Bronchitis Calculus of gallbladder without mention of cholecystitis or obstruction Carpal tunnel syndrome left Cataract Cholecystitis Closed fracture of ankle Congenital heart failure (CMS/HCC) COPD (chronic obstructive pulmonary disease) ([facility]) Degeneration of lumbar or lumbosacral intervertebral disc Diabetes mellitus ([facility]) without mention of complication, type II or unspecified type, not stated as uncontrolled Disease of thyroid gland (CMS/HCC) Dry eyes Essential hypertension, benign (CMS/HCC) Essential hypertension, malignant ([facility]) Extremity ischemia 2014 rt lower Fracture ankle Headache Hernia of abdominal wall without mention of obstruction or gangrene History of being hospitalized 06/06/2022 AMS due to Med Overuse, Hypoxia, Fall, Acute on Chronic RF Hx of migraine headaches Hypertension ([facility]) Hypothyroidism ([facility]) IBS (irritable bowel syndrome) Influenza with pneumonia Manic episode ([facility]) 1985 Meniere disease Morbid obesity ([facility]) Myalgia and myositis Osteoarthritis Osteoporosis ([facility]) Personal history of medical treatment 2013 cardiopulmonary collapse and acute respiratory failure( Respiratory failure ([facility]) Rheumatoid arthritis ([facility] [facility] Rotator cuff tear right Skin lesion Spondylosis unspecified site without mention of myelopathy Suicidal ideations 2012 Thyroid disease ([facility]) Past Surgical History: Procedure Laterality Date BIOPSY SKIN SUBCUTANEOUS TISSUE 2013 removal/ biopsy;Disease:abnormal skin lesion BREAST BIOPSY 2011 BRONCHOSCOPY 2013 CARDIAC CATHETERIZATION 2011 CARPAL TUNNEL RELEASE Left 2008 CHOLECYSTECTOMY 2011 ECHO 2014 EMBOLECTOMY 2014 right femoral artery OTHER SURGICAL HISTORY 2013 percutaneous cannulation of right femerol artery/v;Disease:cardiopulmonary collapse and acute respiratory failure OTHER SURGICAL HISTORY ORIF [place] KNEE SCOPE,DIAGNOSTIC Right 02/04/2020 Dr. Cheek ROTATOR [...] use of insulin ([facility]) - POCT Glycated hemoglobin, total - Microalbumin [...] 06/27/2024) for Diabetes. documented in this encounter [facility] 03-14-2024 History of Present illness Narrative NEW PATIENT PSYCHIATRIC EVALUATION This is a 64-year-old female who is here to establish psychiatric care for the treatment of her bipolar disorder. Patient was previously a patient of Dr. Parekh at [facility]. Patient had also seen Dr. Huddleston [...] suffers from alcoholism. Her Brother is a senior software manager and denies any mental health problems. Denies Hx of Substance abuse. Frequency of Alcohol on special occasions. Marijuana use denies. Legal hx denies. Patient is no children. Worked at [employer]. Lives with her sister. Stressors: Patient states [...] a patient of Dr. Parekh at [facility]. Patient had also seen Dr. Huddleston [...] is drinking again. documented in this encounter [facility] 07-26-2022 Note PAIN MANAGEMENT CONS ULTATION [...] purpose. I have decreased the use of Wall from q. 6 hours to q.i.d., 5 mg pills, to be taken as tolerated, and to increase the baclofen 10 mg pill, one pill t.i.d. also as tolerated. Went over the details of the procedure with the patient. All her questions were answered. She agrees to proceed with the outlined plan. [facility] 06-06-2022 Note PROCEDURE: XR SHOULD [...] authenticated by: BURT FIGUEROA Date: 2022-06-06 13:36 [facility] 01-25-2022 History of Present illness Narrative Images from the original note were not included. EMERGENCY TRIAGE, TREAT AND TRANSPORT (ET3) DOCUMENTATION OF TELEHEALTH VISIT Date / Time: 01/14/2022729 Name: Sanna Corrales : 1960 SSN: (Not on file) EMS Agency: [facility] [] Verbal consent obtained [] Implied consent - patient with potential emergency medical condition requiring assessment of capacity to refuse treatment and/or transport VITAL SIGNS: see flowsheet documentation Reason for Telehealth Visit: Chief Complaint Patient presents with Fall History of Present Ilness: 61 yo female who tripped over her small dog in the [facility]. EMS called for lift assist. No LOC, [...] complication, without long-term current use of insulin ([facility])- Primary Limitation of activities due to disability [...] (generalized anxiety disorder) ([facility]) Generalized anxiety disorder documented in this encounter [...] and content) DATE CREATED AUTHOR 02/03/2022 [facility] DATE CREATED AUTHOR AUTHOR'S ORGANIZ ATION 08/31/2022 [facility] DATE CREATED AUTHOR AUTHOR'S ORGANIZ ATION 08/04/2023 [facility] DATE CREATED AUTHOR AUTHOR'S ORGANIZ ATION 04/20/2024 [facility] DATE CREATED AUTHOR AUTHOR'S ORGANIZ ATION 04/20/2024 [facility] EPIC Care Teams (unrecognized sec tion and content) Medical Social Consultant Relationship Specialty Start Date End Date Jer Rizo MD [address] [facility] [address] [place] [address] PCP - General Internal Medicine 01/03/23 Jer Rizo MD [address] [facility] [address] [place] [address] PCP - Devoted 05/29/23 Medical Social Consultant Relationship Specialty Start Date End Date Jer Rizo MD [address] [facility] [address] [place] [address] PCP - General Internal Medicine 01/03/23 Jer Rizo MD [address] [facility] [address] [place] [address] PCP - Devoted 05/29/23 Medical Social Consultant Relationship Specialty Start Date End Date Jer Rizo MD [address] [facility] [address] [place] [address] PCP - General Internal Medicine 01/03/23 Jer Rizo MD [address] [facility] [address] [place] [address] PCP - Devoted 05/29/23 Medical Social Consultant Relationship Specialty Start Date End Date Jer Rizo MD [address] [facility] [address] [place] [address] PCP - General Internal Medicine 01/03/23 Jer Rizo MD [address] [facility] [address] [place] [address] PCP - Devoted 05/29/23 Medical Social Consultant Relationship Specialty Start Date End Date Jer Rizo MD [address] [facility] [address] [place] [address] PCP - General Internal Medicine 01/03/23 Jer Rizo MD [address] [facility] [address] [place] [address] PCP - Devoted 05/29/23 Medical Social Consultant Relationship Specialty Start Date End Date Jer Rizo MD [address] [facility] [place] [address] PCP - General Internal Medicine 01/03/23 Jer Rizo MD [address] [facility] [place] [address] PCP - Devoted 05/29/23 Medical Social Consultant Relationship Specialty Start Date End Date Jer Rizo MD [address] [facility] [place] [address] PCP - General Internal Medicine 01/03/23 Jer Rizo MD [address] [facility] [place] [address] PCP - Devoted 05/29/23 FOR RECORDS PERTAINING [...] BE BASED ON THE PRIMARY CLINICAL RECORDS. [facility]. provides no warranty or guarantee of the accuracy or completeness of information in this document.
--- NOTE | 2024-05-09 21:03 | ED_ITS ---
HPI - Dental/Oral General Chief complaint: Dental/Oral Stated complaint: TOOTHACHE Time Seen by Provider: 05/09/24 20:23 Source: patient Mode of arrival: walk-in History of Present Illness HPI Narrative: This 64-year-old female history of COPD who is oxygen dependent and states her pulse ox is always in the 80s presents for evaluation of dental pain. She has pain in tooth #17. The pain has been present for the past 2 days. She called her dentist in [place] and has an appointment on Monday however she states that her dentist does not extract teeth and told her that he can get her into do an x-ray and will refer her to an oral surgeon. She does not have the name of an oral surgeon yet. She has been using Vicodin for pain but it is not helping. She has some mild pain in her adjacent jaw. She has not had any fever. She denies any chest pain or shortness of breath that is unusual for her. Related Data Home Medications ?Medication ?Instructions ?Recorded ?Confirmed budesonide 160 mcg-glycopyr 9 2 inh inhalation BID 06/27/23 05/09/24 mcg-formot 4.8 mcg/actuation HFA inhaler (Breztri Aerosphere) buspirone 30 mg tablet 30 mg PO BID 06/27/23 05/06/24 cariprazine 3 mg capsule (Vraylar) 3 mg PO QDAY 06/27/23 05/09/24 dapagliflozin propanediol 10 mg 10 mg PO QAM 06/27/23 05/09/24 tablet (Farxiga) diclofenac sodium 75 mg 75 mg PO Q12H 06/27/23 05/09/24 tablet,delayed release duloxetine 60 mg capsule,delayed 120 mg PO BEDTIME 06/27/23 05/09/24 release (Cymbalta) furosemide 40 mg tablet 40 mg PO BID 06/27/23 05/09/24 gabapentin 600 mg tablet 600 mg PO QAM 06/27/23 05/09/24 levothyroxine 112 mcg tablet 112 mcg PO DAILY 06/27/23 05/09/24 rosuvastatin 5 mg tablet 5 mg PO .qhs 06/27/23 05/09/24 metoprolol tartrate 25 mg tablet 25 mg PO BID 06/28/23 05/09/24 linagliptin 5 mg tablet (Tradjenta) 5 mg PO DAILY 12/04/23 05/09/24 hydrocodone 5 mg-acetaminophen 325 tab 05/09/24 mg tablet Allergies Allergy/AdvReac Type Severity Reaction Status Date / Time ibandronate sodium (From Allergy Severe Hives Verified 05/09/24 18:41 Boniva) Sulfa (Sulfonamide Allergy Severe Anaphylaxis Verified 05/09/24 18:41 Antibiotics) Penicillins Allergy Intermediate Anaphylaxis Verified 05/09/24 18:41 Review of Systems ROS Status of ROS 10 or more systems reviewed and unremark able except as noted in history and below [facility] Medical History Endometriosis ?N80.9 - Endometriosis, unspecified (ICD-10) Osteoporosis ?M81.0 - Age-related osteoporosis without current pathological fracture (ICD- 10) Asthma ?J45.909 - Unspecified asthma, uncomplicated (ICD-10) Chronic respiratory failure with hypoxia, on home O2 therapy ?J96.11 - Chronic respiratory failure with hypoxia (ICD-10) ?Z99.81 - Dependence on supplemental oxygen (ICD-10) Hiatal hernia ?K44.9 - Diaphragmatic hernia without obstruction or gangrene (ICD-10) Degenerative disc disease, lumbar ?M51.36 - Other intervertebral disc degeneration, lumbar region (ICD-10) Bipolar disorder ?F31.9 - Bipolar disorder, unspecified (ICD-10) Fibromyalgia ?M79.7 - Fibromyalgia (ICD-10) Hypothyroidism ?E03.9 - Hypothyroidism, unspecified (ICD-10) Rheumatoid arthritis ?M06.9 - Rheumatoid arthritis, unspecified (ICD-10) DM2 (diabetes mellitus, type 2) ?E11.9 - Type 2 diabetes mellitus without complications (ICD-10) Mixed hyperlipidemia ?E78.2 - Mixed hyperlipidemia (ICD-10) Essential hypertension ?I10 - Essential (primary) hypertension (ICD-10) Obesity ?E66.9 - Obesity, unspecified (ICD-10) COPD (chronic obstructive pulmonary disease) ?J44.9 - Chronic obstructive pulmonary disease, unspecified (ICD-10) Stable angina pectoris ?I20.89 - Other forms of angina pectoris (ICD-10) Surgical History H/O laparoscopy ?Z98.890 - Other specified postprocedural states (ICD-10) H/O cataract extraction ?Z98.49 - Cataract extraction status, unspecified eye (ICD-10) Hx laparoscopic cholecystectomy ?Z90.49 - Acquired absence of other specified parts of digestive tract (ICD- 10) H/O cardiac catheterization ?Z98.890 - Other specified postprocedural states (ICD-10) Family History Other Breast cancer CAD (coronary artery disease) Family history of cancer Family history of diabetes mellitus Family history of hypertension Family history of myocardial infarction Social History Within the past year, how often did you have a drink containing alcohol: never Score interpretation: A score less than 3 is consistent with normal alcohol consumption. Smoking status: Never smoker Previous occupational history: retired/disability Highest level of school completed/degree received: high school graduate Little interest or pleasure in doing things: not at all Feeling down, depressed, or hopeless: not at all Gender Identity: female Exam Narrative Exam Narrative: Vital signs and Nursing Notes reviewed: Patient is afebrile with a normal pulse, normal blood pressure, she is hypoxic with pulse ox of 87% but she states this is her baseline General: Awake, alert, oriented, obese female, no jose martin respiratory distress HEENT: Normocephalic atraumatic, mucous membranes are moist and pink, eyes are clear, normal conjunctiva, vision is grossly intact, posterior pharynx is normal in appearance. There are several missing teeth, the posterior molar on the left has a filling in place. It is tender to percussion. There is no visible periapical abscess, there is no sign of necrotizing gingivitis. There is no pooling of secretions. There is no swelling of the tongue, uvula or pharyngeal soft tissues. There is some mild adjacent tenderness in the left mandible but I do not appreciate any swelling or induration in this area. Neck: Supple, no meningeal signs, no anterior or posterior cervical lymphadenopathy Chest: Diffusely diminished breath sounds with no wheezing rhonchi or rales, patient is speaking in complete sentences, she is hypoxic with pulse ox of 87% but she states this is her baseline CVS: Regular rate and rhythm S1-S2, no murmurs rubs or gallops, pulses are brisk and equal bilaterally Extremities: Moving all extremities, no lower extremity tenderness or swelling noted, negative Homans' sign, pulses are brisk and equal bilaterally Skin: Normal in appearance without rash,pallor, petechiae or purpura Neuro: No focal deficits Constitutional Vital Signs, click to edit/add: Last Vital Signs Temp 98.6 F 05/09/24 18:35 Pulse 84 05/09/24 18:35 Resp 18 05/09/24 18:35 BP 118/82 05/09/24 18:35 Pulse Ox 87 L 05/09/24 18:35 O2 Del Method Nasal Cannula 05/09/24 18:35 O2 Flow Rate 2.5 05/09/24 18:35 Course Vital Signs Vital signs: Vital Signs Temperature 98.6 F 05/09/24 18:35 Pulse Rate 84 05/09/24 18:35 Respiratory Rate 18 05/09/24 18:35 Blood Pressure 118/82 05/09/24 18:35 Pulse Oximetry 87 L 05/09/24 18:35 Oxygen Delivery Method Nasal Cannula 05/09/24 18:35 Oxygen Delivery Flow Rate 2.5 05/09/24 18:35 Temperature 98.6 F 05/09/24 18:35 Pulse Rate 84 05/09/24 18:35 Respiratory Rate 18 05/09/24 18:35 Blood Pressure 118/82 05/09/24 18:35 Pulse Oximetry 87 L 05/09/24 18:35 Oxygen Delivery Method Nasal Cannula 05/09/24 18:35 Oxygen Delivery Flow Rate 2.5 05/09/24 18:35 MDM - Dental/Oral MDM Narrative Medical decision making narrative: This 64-year-old female with a history of COPD who is on home oxygen presents for evaluation of a toothache that has been present for the past 2 days. She has been taking Tylenol and Vicodin without significant improvement. She has tenderness to percussion at the posterior molar on the left with some adjacent tenderness in her jaw with no visible periapical abscess or other notable findings. She was medicated with a dose of Percocet, dental analgesia and clindamycin. She will be discharged home with the remainder of the dental analgesia and a prescription for clindamycin. She does have a dental appointment on Monday and was encouraged to keep it. Discharge Plan Discharge Chief Complaint: Dental/Oral Clinical Impression: Toothache Patient Disposition: Home, Self-Care Prescriptions / Home Meds: No Action buspirone 30 mg tablet 30 mg PO BID furosemide 40 mg tablet 40 mg PO BID duloxetine [Cymbalta] 60 mg capsule,delayed release(DR/EC) 120 mg PO BEDTIME levothyroxine 112 mcg tablet 112 mcg PO DAILY dapagliflozin propanediol [Farxiga] 10 mg tablet 10 mg PO QAM gabapentin 600 mg tablet 600 mg PO QAM Rx Instructions: 1 in morning, 2 at night; diclofenac sodium 75 mg tablet,delayed release (DR/EC) 75 mg PO Q12H Breztri Aerosphere 160-9-4.8 mcg/actuation HFA aerosol inhaler 2 inh INHALATION BID Vraylar 3 mg capsule 3 mg PO QDAY rosuvastatin 5 mg tablet 5 mg PO .qhs metoprolol tartrate 25 mg tablet 25 mg PO BID Tradjenta 5 mg tablet 5 mg PO DAILY hydrocodone-acetaminophen 5-325 mg tablet Print Language: Kittitian Referrals: Physician,Non-Staff, MD [Primary Care Provider] - 1 week
--- NOTE | 2024-05-09 21:12 | PC.NURSE ---
Pt presents to ER for toothpain At this time ER is full, after triage pt is brought back to the conference room to be seen by physician Pt wears O2 all the time and has hers with her - pt states her O2 stat is her norm if not better Pt has a dentist appointment scheduled for Monday Dr. Tate saw patient in the conference room, ordered medications, and discharged from conference room
[2024-05-09] MEDS: CLINDAMYCIN HCL 150 MG CAPSULE 300 MG PO (21:45)
[2024-05-09] MEDS: OXYCODONE HCL/ACETAMINOPHEN 5MG/325MG 1 TAB PO (21:46)
[2024-05-09] MEDS: BENZOCAINE 30 ML, lidocaine HCL 15 ML MM (21:46)
== END 2024-05-09 21:47 | disposition home or self-care (01) ==
PROVIDERS: Emergency Provider Emergency Medicine
DX: K08.89 Other specified disorders of teeth and supporting structures (principal); J44.9 Chronic obstructive pulmonary disease, unspecified; Z99.81 Dependence on supplemental oxygen; Z90.49 Acquired absence of other specified parts of digestive tract
CPT/HCPCS: 99284

== ENCOUNTER 2024-07-22 08:02 | Day surgery (SDC) | payer MEDICARE, SELFPAY ==
[2024-07-22 08:11] VITALS: BP 121/76; PULSE 71; TEMP 37; O2SAT 98
--- OUTSIDE RECORDS SUMMARY | 2024-07-22 08:23 | XMS_ITS | CCD ---
Author Organization [facility] Care Team Providers Care Laundry Aid Name Role Phone Unavailable Primary Care Provider [...] ., MR TYLER Consulting Unavailable LAKSHMIPATHY ., NARENDRANATH Attending Rachael vailable LAKSHMIPATHY ., NARENDRANATH Admitting Rachael vailable BRIA GUAJARDO Consulting Unavailable DR JER RIZO Primary Care Unavailable RAFA ., SIOMARA Consulting Rachael Jer Fitch MD Primary Care Provider [phone] Jer Rizo MD Unavailable Pratik Soria Attending Unavailab Pratik Dunlap Admitting Unavailab Jer Calvin Primary Care Unavailable HEMMER, ERIN Vail Attending Unavailable ESTRADATYLER Attending Unavailable TYLER ESTRADA Referring Unavailable ZAHLSWATHI BARTLETT Attending Unavailable CATERINAPILLO Referring Unavailable HEMMER, ERIN Vail Attending Unavailable ZAHLER, SWATHI Ohara Attending Unavailable HEMMER, ERIN Vail Attending Unavailable DAILY-NOSSEKYARELIS Attending Unavailab le HEMMER, ERIN Vail Attending Unavailable DAILY-NOSSEK, YARELIS Vail Attending Unavailab le DAILY-NOSSEYARELIS Villafuerte Attending Unavailab le Gieditis , Divya Jasmine Attending Unavailable Gieditis , Andrius Jasmine Attending Unavailable Gieditis , Andrius Jasmine Attending Unavailable Allergies Allergy Classification Reported Allergen(s) Allergy Type Date of Onset Reaction(s) Facility (2 sources) cefdinir Drug Allergy 3 [facility] Repository (1 source) Codeine Drug Allergy [facility] Repository (2 sources) Ibandronate Drug Allergy 3 [facility] Repository (2 sources) nabumetone Drug Allergy 3 [facility] (2 sources) Penicillins Drug allergy (disorder) 3 [facility] Repository (2 sources) Sulfonamides (Antibiotic) Drug allergy (disorder) 3 [facility] Repository (17 sources) cefdinir Drug Allergy 3 Hives [facility] Work Phone: (17 sources) Ibandronate Drug Allergy 3 [facility] (17 sources) nabumetone Drug Allergy 3 [facility] (17 sources) Penicillin G Drug Allergy 3 [facility] (17 sources) Sulfanilamide Allergy to substance 3 [facility] (12 sources) Sertraline Drug Allergy 4 [facility] (12 sources) zolpidem Drug Allergy 4 Other [facility] Medications Current Medications Medication Drug Class(es) Dates Sig (Normalized) Sig (Original) acetaminophen 325 mg / HYDROcodone bitartrate 5 mg oral tablet (19 sources) Opioid Agonist Start: 09-05-2023 End: 02-21-2024 take 1 tablet by mouth every six hours for pain HYDROcodone-acetam inophen ([place]) 5-325 MG tablet Indications: Cervical spondylosis Take 1 tablet by mouth every 6 (six) hours if needed for severe pain or moderate pain 56 tablet 02/21/2024 Active Start: 03-22-2023 take 1 tablet by tk th every six hours for pain HYDROcodone-acetaminophen ([place]) 5-325 MG tablet Indications: Cervical spondylosis Take 1 tablet by mouth every 6 (six) hours if needed for severe pain or moderate pain. 56 tablet 0 03/22/2023 Active [id number] 200 actuat albuterol 0.09 mg/actuat metered dose [...] wheezing or shortness of breath. 0 Active azithromycin 250 mg oral tablet (2 sources) Macrolide Antimicrobial Start: 02-21-2024 End: 02-25-2024 take 2 tablets by mouth once daily, then take 1 tablet by mouth once daily azithromycin (Zithromax) 250 MG tablet Indications: Acute non-recurrent maxillary sinusitis Take 2 tablets (500 mg) by mouth Daily for 1 day, THEN 1 tablet (250 mg) Daily for 4 days. 6 tablet 02/21/2024 02/25/2024 Active bacillus coagulans [id number] unt / inulin 250 mg oral capsule (9 sources) Start: 03-27-2024 Bacillus Coagulans-Inulin (Probiotic Formula) 1-250 BILLION-MG capsule Indications: Chronic diarrhea Take 1 capsule by mouth at noon and 1 capsule in the evening. 60 capsule 2 03/27/2024 Active baclofen 10 mg oral tablet (17 sources) gamma-Aminobutyric Acid-ergic Agonist Start: 03-05-2024 take 1 tablet by mouth three times daily as needed baclofen (Lioresal) 10 MG tablet Indications: Cervical spondylosis TAKE 1 TABLET BY MOUTH THREE TIMES A DAY NEEDED 270 tablet 1 03/05/2024 Active Start: 09-12-2023 take 1 tablet by tk th three times daily as needed baclofen (Lioresal) 10 MG tablet Indications: Cervical spondylosis TAKE 1 TABLET BY MOUTH THREE TIMES A DAY NEEDED 270 tablet 1 09/12/2023 Active Start: 03-22-2023 take 1 tablet by tk th three times daily as needed baclofen (Lioresal) 10 MG tablet Indications: Cervical spondylosis TAKE 1 TABLET BY MOUTH THREE TIMES A DAY NEEDED FOR 30 DAYS 270 tablet 1 03/22/2023 Active Blood Glucose Monitoring Suppl device (17 sources) Start: 04-04-2023 Blood Glucose Monitoring Suppl device Indications: Type 2 diabetes mellitus with other specified complication, without long-term current use of insulin ([facility]) USE DIRECTED 100 strip 2 04/04/2023 Active 120 actuat budesonide 0.16 mg/actuat / formoterol fumarate 0.0048 mg/actuat / glycopyrrolate 0.009 mg/actuat metered dose inhaler (17 sources) Corticosteroi d, beta2-Adrener gic Agonist Start: [...] 2 puffs before bedtime. 0 03/08/2023 Active cariprazine 3 mg oral capsule (20 sources) Atypical Antipsychotic Start: 03-14-2024 End: 06-14-2024 take 1 capsule by mouth at bedtime Cariprazine HCl (Vraylar) 3 MG capsule Indications: Mixed bipolar affective disorder, moderate (CMS/HCC) Take 1 capsule by mouth at bedtime 30 capsule 1 05/15/2024 06/14/2024 Active take 1 capsule by mouth at bedti me Cariprazine HCl (Vraylar) 3 MG capsule Take 1 capsule by mouth at bedtime Active take 1 capsule by mouth once imani ly Vraylar 4.5 MG capsule Take 1 capsule by mouth 1 (one) time each day. 0 Active dapagliflozin 10 mg oral tablet (17 sources) Sodium-Glucose Cotransporter 2 Inhibitor Start: 11-06-2023 [...] sodium 75 mg delayed release oral tablet (17 sources) Nonsteroidal Anti-inflammatory Drug Start: 01-26-2024 take [...] DULoxetine 60 mg delayed release oral capsule (20 sources) Serotonin and Norepinephrine Reuptake Inhibitor Start: 05-15-2024 End: 05-15-2025 take 1 capsule by mouth once daily DULoxetine (Cymbalta) [address] capsule Indications: Bipolar affective disorder, currently depressed, moderate (CMS/HCC) Take 1 capsule (30 mg) by mouth Daily Do not crush or chew. 30 capsule 1 05/15/2024 05/15/2025 Active Start: 05-15-2024 End: 05-15-2025 take 1 capsule by mouth once daily DULoxetine (Cymbalta) [address] capsule Indications: Bipolar affective disorder, currently depressed, moderate (CMS/HCC) Take 1 capsule (60 mg) by mouth Daily Do not crush or chew. 30 capsule 11 05/15/2024 05/15/2025 Active Start: 11-01-2023 take 2 capsules by m outh once daily DULoxetine (Cymbalta) [address] capsule Indications: Bipolar affective disorder, currently depressed, moderate (CMS/HCC) Take 2 capsules (120 mg) by mouth 1 (one) time each day at the same time 200 capsule 3 11/01/2023 Active take 2 capsules by m outh once daily Cymbalta [address] capsule Take 2 capsules by mouth 1 (one) time each day at the same time. 0 Active fluticasone propionate 0.05 mg/actuat metered dose nasal spray (10 sources) Corticosteroid Start: 04-22-2024 take 1 spray(s) nasal route once daily fluticasone (Flonase) 50 MCG/ACT nasal spray Indications: Chronic sinusitis, unspecified location INSTILL 1 SPRAY INTO EACH NOSTRIL DAILY SHAKE GENTLY. BEFORE FIRST USE, PRIME PUMP. AFTER USE, CLEAN TIP AND REPLACE CAP 48 mL 1 04/22/2024 Active Start: 03-27-2024 End: 03-27-2025 take 1 spray(s) [...] 0 Active furosemide 40 mg oral tablet (17 sources) Loop Diuretic Start: 09-12-2023 take 1 [...] 0 Active gabapentin 600 mg oral tablet (17 sources) Anti-epileptic Agent Start: 09-05-2023 take 1 tablet by mouth twice daily, then take 2 tablets by mouth at bedtime gabapentin (Neurontin) 600 MG tablet Indications: Type 2 diabetes mellitus with autonomic neuropathy, unspecified whether exterminator insulin use (CMS/HCC) Take 1 tablet [...] Active hydrOXYzine pamoate 25 mg oral capsule (5 sources) Antihistamine Start: 04-17-2024 End: 05-17-2024 take [...] 5 mL 1 03/28/2024 04/27/2024 Active lamoTRIgine 200 mg oral tablet (20 sources) Mood Stabilizer, Anti-epileptic Agent Start: 02-21-2024 End: 05-15-2024 take 1 tablet by mouth at bedtime lamoTRIgine (LaMICtal) 25 MG tablet Indications: Bipolar affective disorder, currently depressed, moderate (CMS/HCC) Take 1 tablet (25 mg) by mouth at bedtime 90 tablet 3 02/21/2024 05/15/2024 Discontinued Start: 11-28-2023 End: 02-21-2024 take 1 tablet by mouth at bedtime lamoTRIgine (LaMICtal) 200 MG tablet Indications: Bipolar affective disorder, currently depressed, moderate (CMS/HCC) Take 1 tablet (200 mg) by mouth at bedtime 90 tablet 3 02/21/2024 Active take 1 tablet by tk th at bedtime LaMICtal 200 MG tablet Take 1 tablet by mouth at bedtime. 0 Active levothyroxine sodium 0.112 mg oral tablet (17 sources) l-Thyroxine Start: 11-27-2023 take 1 tablet [...] 11/23/2022 Active linagliptin 5 mg oral tablet (17 sources) Dipeptidyl Peptidase 4 Inhibitor Start: 02-09-2024 [...] Active metoprolol tartrate 25 mg oral tablet (17 sources) beta-Adrenergic Sher Start: 10-30-2023 take 1 [...] 200 tablet 3 11/04/2022 Active OXYGEN-HELIUM IN (17 sources) Start: 01-21-2022 OXYGEN-HELIUM IN inhaled nasal continuous use 01/21/2022 Active Start: 01-21-2022 OXYGEN-HELIUM IN inhaled nasal continuous use 0 01/21/2022 Active rosuvastatin calcium 5 mg oral tablet (16 sources) HMG-CoA Reductase Inhibitor Start: 11-28-2023 take 1 tablet by mouth once daily rosuvastatin (Crestor) 5 MG tablet Indications: Hypokalemia Take 1 tablet (5 mg) by mouth Daily 90 tablet 1 11/28/2023 Active traMADol hydrochloride 50 mg oral tablet (9 sources) Opioid Agonist Start: 03-25-2024 take 1 tablet by mouth three times daily as needed for pain traMADol (Ultram) 50 MG tablet Take 1 tablet by mouth 3 (three) times a day as needed for moderate pain 03/25/2024 Active traZODone hydrochloride 100 mg oral tablet (20 sources) Serotonin Reuptake Inhibitor Start: 11-28-2023 End: 05-15-2024 take 2 tablets by mouth at bedtime traZODone (Desyrel) 100 MG tablet Indications: Bipolar affective disorder, currently depressed, moderate (CMS/HCC) Take 2 tablets (200 mg) by mouth at bedtime 90 tablet 3 02/21/2024 Active take 2 tablets by mouth at bedti me traZODone (Desyrel) 100 MG tablet Take 2 tablets by mouth at bedtime. 0 Active triamcinolone acetonide 5 mg/ml topical cream (17 sources) Corticosteroid Start: 05-18-2023 triamcinolone (Kenalog) 0.5 % cream Indications: Venous insufficiency (chronic) (peripheral) APPLY 1 APPLICATION EXTERNALLY ONCE A DAY NEEDED 7 DAY(S) 30 g 2 05/18/2023 Active Completed/Discontinued Medications Medication Drug Class(es) Dates Sig (Normalized) Sig (Original) busPIRone hydrochloride 15 mg oral tablet (19 sources) Start: 03-14-2024 End: 03-14-2025 take 1 tablet by mouth in the morning busPIRone (Buspar) 15 MG tablet Indications: JENN (generalized anxiety disorder) (CMS/HCC) Take 1 tablet (15 mg) by mouth in the morning and 1 tablet (15 mg) before bedtime. 180 tablet 04/10/2024 05/15/2024 Discontinued (Therapy completed) End: 03-14-2024 take 1 tablet by mouth in the morning busPIRone (Buspar) 30 MG tablet Take 1 tablet by mouth in the morning and 1 tablet before bedtime. 03/14/2024 Discontinued hydrocortisone 10 mg/ml / neomycin 3.5 mg/ml / polymyxin b [id number] unt/ml otic suspension (9 sources) Aminoglycoside Antibacterial, Polymyxin-class Antibacterial, Corticosteroid Start: 01-12-2024 End: 03-27-2024 [id number] isone (Cortisporin) [id number] otic suspension Indications: Acute otitis externa of both ears, unspecified type USE 3 DROPS IN EACH AFFECTED EAR IN THE MORNING, AT NOON, IN THE EVENING, AND BEFORE BEDTIME FOR 7 DAYS 10 mL 01/12/2024 03/27/2024 Discontinued (Other) methylPREDNISolone (5 sources) Corticosteroid Start: 02-21-2024 End: 03-14-2024 methylPREDNISolone (Medrol D ospak) 4 MG tablets Indications: Chronic obstructive pulmonary disease, unspecified COPD type (CMS/HCC) Follow schedule on package instructions 21 tablet 02/21/2024 03/14/2024 Discontinued Start: 02-21-2024 methylPREDNISo lone (Medrol Dospak) 4 MG tablets Indications: Chronic obstructive pulmonary disease, unspecified COPD type (CMS/HCC) Follow schedule on package instructions 21 tablet 02/21/2024 Active Problems Active Problems Problem Classification Problem Date Documented Date Episodic/Chronic Anxiety disorders (20 sources) Anxiety disorder; Translations: [Anxiety disorder, unspecified] [...] Chronic Chronic obstructive pulmonary disease and bronchiectasis (19 sources) Chronic obstructive lung disease; Translations: [Chronic obstructive pulmonary disease, unspecified] Onset: 01-02-2023 01-02-2023 Chronic Coronary atherosclerosis and other heart disease (18 sources) Atherosclerotic heart disease of [place] coronary artery without angina pectoris; Translations: [Coronary [...] fall, initial encounter] Onset: 06-15-2022 Episodic Endometriosis (16 sources) Endometriosis (clinical); Translations: [Endometriosis, unspecified] Onset: 09-05-2023 09-05-2023 Chronic Essential hypertension (18 sources) Essential (primary) hypertension; Translations: [Essential hypertension] Onset: 06-15-2022 01-02-2023 Chronic Headache; including migraine (17 sources) Migraine; Translations: [Migraine without aura, not intractable, without status migrainosus] Onset: 01-02-2023 01-02-2023 Chronic Hepatitis (17 sources) Nonalcoholic steatohepatitis; Translations: [Nonalcoholic steatohepatitis (IVAN)] Onset: 01-02-2023 01-02-2023 Chronic Immunizations and screening for infectious disease (2 sources) Vaccination needed; Translations: [Encounter for immunization] 02-21-2024 Episodic Joint disorders and dislocations; trauma-related (20 sources) Unspecified internal derangement of left knee; Translations: [Chondromalacia of left patella] Onset: 05-10-2022 Chronic Menopausal disorders (2 sources) Decreased estrogen level; Translations: [Other primary ovarian failure] 02-21-2024 Chronic Menopausal disorders (1 source) Hormone replacement [...] termite treater (current) use of insulin; Translations: [RESIDENTIAL CURRENT USE OF INSULIN] Onset: 06-15-2022 Episodic Other aftercare (1 source) Other exterminator (current) drug therapy; Translations: [OTH DIGESTION OPERATOR CURRENT DRUG THERAPY] Onset: 06-15-2022 Episodic Other [...] Chronic Other nutritional; endocrine; and metabolic disorders (17 sources) Extreme obesity with alveolar hypoventilation; Translations: [Morbid (severe) obesity with alveolar hypoventilation] Onset: 01-02-2023 01-02-2023 Chronic Other nutritional; endocrine; and metabolic disorders (16 sources) Obesity caused by energy imbalance; Translations: [Morbid (severe) obesity due to excess calories] Onset: 12-06-2023 12-06-2023 Chronic Other nutritional; endocrine; and metabolic disorders (16 sources) Body mass index 40+ - severely obese; Translations: [Body mass index (BMI) 50.0-59.9, adult] Onset: 12-06-2023 12-06-2023 Chronic Other screening for suspected conditions (not mental disorders or infectious disease) (17 sources) Computed tomography result abnormal; Translations: [Abnormal findings on diagnostic imaging of other specified body structures] Onset: 01-02-2023 01-02-2023 Chronic Other upper respiratory disease (17 sources) Allergic rhinitis; Translations: [Allergic rhinitis, unspecified] Onset: 01-02-2023 01-02-2023 Chronic Other upper respiratory infections (20 sources) Chronic sinusitis, unspecified; Translations: [Chronic sinusitis] Onset: 11-22-2021 Chronic Other upper respiratory infections (2 sources) Acute maxillary sinusitis; Translations: [Acute maxillary sinusitis, unspecified] 02-21-2024 Episodic Residual codes; unclassified (17 sources) Obstructive sleep apnea syndrome; Translations: [Obstructive [...] 01-02-2023 Chronic Rheumatoid arthritis and related disease (18 sources) Rheumatoid arthritis, unspecified; Translations: [Rheumatoid arthritis] Onset: 06-15-2022 01-02-2023 Chronic Spondylosis; intervertebral disc disorders; other back problems (20 sources) Spondylosis without myelopathy or radiculopathy, lumbar region; Translations: [Spondylosis without myelopathy or radiculopathy, lumbosacral region] Onset: 01-05-2022 Chronic Superficial injury; contusion (1 source) Contusion of lower back and pelvis, initial encounter; Translations: [CONTUSION LOWER BACK PELVIS INITIAL] Onset: 06-15-2022 Episodic Thyroid disorders (18 sources) Hypothyroidism, unspecified; Translations: [Hypothyroidism] Onset: 06-15-2022 11-23-2022 Chronic Unclassified (3 sources) LOW BACK PAIN, UNSPECIFIED; Translations: [LOW BACK PAIN, UNSPECIFIED] Onset: 07-31-2022 Unclassified (1 source) CONTACT W/AND (SUSP) EXPOS COVID-19; Translations: [CONTACT W/AND (SUSP) EXPOS COVID-19] Onset: 06-15-2022 Unclassified (16 sources) Patient on antidepressant monitoring plan Onset: 10-31-2023 10-31-2023 Past or Other Problems Problem Classification Problem Date Documented Da te Episodic/Chronic Abdominal hernia (18 sources) Diaphragmatic hernia without obstruction or gangrene; Translations: [Diaphragmatic hernia] Onset: 06-08-2022 01-03-2023 Episodic Abdominal pain (17 sources) Indigestion; Translations: [Epigastric pain] Onset: 01-02-2023 01-02-2023 Episodic Administrative/social admission (19 sources) Finding of activity of daily living; Translations: [Limitation of activities due to disability] Onset: 06-08-2022 01-03-2023 Episodic Fluid and electrolyte disorders (17 sources) Hypokalemia; Translations: [Hypokalemia] Onset: 01-04-2023 01-04-2023 Episodic Mood disorders (17 sources) Mood disorders Onset: 03-22-2023 Resolved: 12-06-2023 03-22-2023 Noninfectious gastroenteritis (19 sources) Chronic diarrhea; Translations: [Noninfective gastroenteritis and colitis, unspecified] Onset: 01-02-2023 01-02-2023 Episodic Other and unspecified benign neoplasm (17 sources) Adenomatous polyp of colon ; Translations: [Benign neoplasm of colon, unspecified] Onset: 01-02-2023 01-02-2023 Episodic Other connective tissue disease (17 sources) Fibromyalgia; Translations: [Fibromyalgia] Onset: 01-02-2023 01-02-2023 Episodic Other connective tissue disease (17 sources) Muscle pain; Translations: [Myalgia, unspecified site] Onset: 01-02-2023 01-02-2023 Episodic Other connective tissue disease (17 sources) Muscle weakness; Translations: [Muscle weakness (generalized)] Onset: 06-08-2022 01-03-2023 Episodic Other diseases of veins and lymphatics (1 source) Stasis dermatitis; Translations: [Venous insufficiency (chronic) (peripheral)] Onset: 01-02-2023 01-02-2023 Episodic Other diseases of veins and lymphatics (16 sources) Disorder of vein of lower extremity; Translations: [Venous insufficiency (chronic) (peripheral)] Onset: 01-02-2023 01-02-2023 Episodic Other gastrointestinal disorders (17 sources) Constipation; Translations: [Constipation, unspecified] Onset: 01-02-2023 01-02-2023 Episodic Other injuries and conditions due to external causes (19 sources) History of fall; Translations: [History of falling] Onset: 06-08-2022 01-03-2023 Episodic Other nervous system disorders (19 sources) Abnormal gait due to impairment of balance; Translations: [Other abnormalities of gait and mobility] Onset: 06-08-2022 01-04-2023 Episodic Other upper respiratory disease (17 sources) Hoarse; Translations: [Dysphonia] Onset: 01-02-2023 01-02-2023 Episodic Other upper respiratory disease (17 sources) Nasal obstruction; Translations: [Other specified disorders of nose and nasal sinuses] Onset: 01-02-2023 01-02-2023 Episodic Residual codes; unclassified (17 sources) Altered mental status; Translations: [Altered mental status, unspecified] Onset: 01-02-2023 Resolved: 12-06-2023 01-02-2023 Episodic Screening and history of mental health and substance abuse codes (17 sources) H/O: psychiatric disorder; Translations: [Personal history [...] 03-27-2024 HbA1c (Bld) [Mass fraction] 7.5 % [facility] No Panel Informationon 03-27 Interpretation and review of laboratory results Abnormal [facility] POINT OF CARE GLUCOSEon 07-28 Glucose [Mass/Vol] 238 mg/dL Critically high 74-106 [facility] Comment on above: Performed By: #### P OCGLUC #### [facility] [address] [address] [address] Cammy Cleaning XR HIPS SOPHY [id number] [...] joint and sacroiliac joint osteoarthritis. Normal [facility] MRI LSPINE WO CONon 07-11-19 MRI [place] CON EXAMINATION: MRI LSPINE WO CON [...] CHRISTEN BAKER Date: 2022-07-11 16:37 Normal [facility] CBC AUTO DIFFon 06-08-2022 BASO # 0.1 103/ul Normal 0.0-0.1 [facility] Comment on above: Performed By: #### C BC #### [facility] [address] [place] [address] Dr. Cammy Cleaning Basophils/100 WBC (Bld) 0.8 % Normal 0.2-2.0 [facility] Comment on above: Performed By: #### C BC #### [facility] [address] [place] [address] Dr. Cammy Cleaning EO # 0.5 103/ul Normal 0.0-0.7 [facility] Comment on above: Performed By: #### C BC #### [facility] [address] [place] [address] Dr. Cammy Cleaning Eosinophils/100 WBC (Bld) 5.2 % Normal 0.9-7.0 [facility] Comment on above: Performed By: #### C BC #### [facility] [address] [place] [address] Dr. Cammy Cleaning Erythrocyte distribution width (RBC) [Ratio] 14.8 % Normal 11.0-15.0 [facility] Comment on above: Performed By: #### C BC #### [facility] [address] [address] [address] Cammy Cleaning Hematocrit (Bld) [Volume fraction] 50.0 % Critically high 36.0-48.0 [facility] Comment on above: Performed By: #### C BC #### [facility] [address] [address] [address] Cammy Cleaning Hemoglobin (Bld) [Mass/Vol] 15.2 g/dL Normal 12.0-16.0 [facility] Comment on above: Performed By: #### C BC #### [facility] [address] [place] [address] Dr. Cammy Cleaning IG # 0.19 10e3/ul Critically high 0.00-0.03 [facility] Comment on above: Performed By: #### C BC #### [facility] [address] [place] [address] Dr. Cammy Cleaning IG % 1.8 % Critically high 0.0-0.5 [facility] Comment on above: Performed By: #### C BC #### [facility] [address] [place] [address] Dr. Cammy Cleaning LYMPH # 2.1 103/ul Normal 1.2-3.8 [facility] Comment on above: Performed By: #### C BC #### [facility] [address] [place] [address] Dr. Cammy Cleaning Lymphocytes/100 WBC (Bld) 19.6 % Critically low 20.5-60.0 [facility] Comment on above: Performed By: #### C BC #### [facility] [address] [place] [address] Dr. Cammy Cleaning MANUAL DIFF REQ NO Normal [facility] Comment on above: Performed By: #### C BC #### [facility] [address] [place] [address] Dr. Cammy Cleaning MCH (RBC) [Entitic mass] 27.6 pg Normal 26.7-34.0 [facility] Comment on above: Performed By: #### C BC #### [facility] [address] [address] [address] Cammy Cleaning MCHC (RBC) [Mass/Vol] 30.4 g/dL Normal 29.9-35.2 [facility] Comment on above: Performed By: #### C BC #### [facility] [address] [address] [address] Cammy Cleaning MCV (RBC) [Entitic vol] 90.7 fL Normal 81.0-99.0 [facility] Comment on above: Performed By: #### C BC #### [facility] [address] [address] [address] Cammy Cleaning MONO # 0.7 103/ul Normal 0.3-0.8 [facility] Comment on above: Performed By: #### C BC #### [facility] Laboratory [address] [address] [address] Cammy Cleaning Monocytes/100 WBC (Bld) 7.0 % Normal 1.7-12.0 [facility] Comment on above: Performed By: #### C BC #### [facility] Laboratory [address] [address] [address] Cammy Cleaning NEUT # 6.9 103/ul Critically high 1.4-6.5 [facility] Comment on above: Performed By: #### C BC #### [facility] Laboratory [address] [address] [address] Cammy Cleaning Neutrophils/100 WBC (Bld) 65.6 % Normal 43.0-75.0 [facility] Comment on above: Performed By: #### C BC #### [facility] Laboratory [address] [address] [address] Cammy Cleaning Platelet mean volume (Bld) [Entitic vol] 8.7 fL Critically low 9.5-13.5 [facility] Comment on above: Performed By: #### C BC #### [facility] Laboratory [address] [address] [address] Cammy Cleaning PLT 166 103/ul Normal 150-450 [facility] Comment on above: Performed By: #### C BC #### [facility] Laboratory [address] [address] [address] Cammy Cleaning RBC 5.51 106/ul Critically high 4.20-5.40 [facility] Comment on above: Performed By: #### C BC #### [facility] Laboratory [address] [address] [address] Cammy Cleaning WBC 10.5 103/ul Normal 4.0-11.0 [facility] Comment on above: Performed By: #### C BC #### [facility] Laboratory [address] [address] [address] Cammy Cleaning POINT OF CARE GLUCOSEon 05-29 Glucose [Mass/Vol] 134 mg/dL Critically high 74-106 [facility] Comment on above: Performed By: #### P OCGLUC #### [facility] Laboratory [address] [address] [address] Cammy Cleaning PROF 14(COMP METB)on 023 Albumin [Mass/Vol] 3.0 g/dL Critically low 3.4-5.0 [facility] Comment on above: Performed By: #### C MP ####[facility] [address] [address]Dr. Cammy Cleaning Albumin/Globulin [Mass ratio] 0.8 {ratio} Normal [facility] Comment on above: Performed By: #### C MP ####[facility] [address] [address]Dr. Cammy Cleaning ALP [Catalytic activity/Vol] 85 U/L Normal 46-116 [facility] Comment on above: Performed By: #### C MP ####[facility] [address] [address]Dr. Cammy Cleaning ALT [Catalytic activity/Vol] 19 U/L Normal 14-59 [facility] Comment on above: Performed By: #### C MP ####[facility] [address] [address]Dr. Cammy Cleaning Anion gap [Moles/Vol] 6.9 mmol/L Normal [facility] Comment on above: Performed By: #### C MP ####[facility] [address] [id number]. Cammy Cleaning AST [Catalytic activity/Vol] 18 U/L Normal 15-37 [facility] Comment on above: Performed By: #### C MP ####[facility] [address] [id number]. Cammy Cleaning Bilirubin [Mass/Vol] 0.6 mg/dL Normal 0.2-1.0 [facility] Comment on above: Performed By: #### C MP ####[facility] [address] [address]Dr. Cammy Cleaning Calcium [Mass/Vol] 9.4 mg/dL Normal 8.5-10.1 [facility] Comment on above: Performed By: #### C MP ####[facility] [address] [place], [place] [address]Dr. Monicaterri Cleaning Chloride [Moles/Vol] 99 mmol/L Normal 98-107 [facility] Comment on above: Performed By: #### C MP ####[facility] [address] [place], [place] [id number]. Cammy Cleaning CO2 [Moles/Vol] 37.8 mmol/L Critically high 21.0-32.0 [facility] Comment on above: Performed By: #### C MP ####[facility] [address] [place], [place] [address]Dr. Cammy Black Creatinine [Mass/Vol] 0.85 mg/dL Normal 0.55-1.02 [facility] Comment on above: Performed By: #### C MP ####[facility] [address] [id number]. Cammy Black EGFR-AF KITTITIAN >60 Normal >=60 [facility] Comment on above: Performed By: #### C MP ####[facility] [address] [place], [place] [address]Dr. Cammy Cleaning EGFR-NON AF KITTITIAN >60 Normal >=60 [facility] Comment on above: Performed By: #### C MP ####[facility] [address] [place], [place] [address]Dr. Cammy Cleaning Globulin (S) [Mass/Vol] 3.6 g/dL Normal [facility] Comment on above: Performed By: #### C MP ####[facility] [address] [address]Dr. Cammy Cleaning Glucose [Mass/Vol] 139 mg/dL Critically high 74-106 [facility] Comment on above: Performed By: #### C MP ####[facility] [address] [address]Dr. Cammy Cleaning Potassium [Moles/Vol] 3.7 mmol/L Normal 3.5-5.1 [facility] Comment on above: Performed By: #### C MP ####[facility] [address] [address]Dr. Cammy Cleaning Protein [Mass/Vol] 6.6 g/dL Normal 6.4-8.2 [facility] Comment on above: Performed By: #### C MP ####[facility] [address] [place], [place] [address]Dr. Cammy Cleaning Sodium [Moles/Vol] 140 mmol/L Normal 136-145 [facility] Comment on above: Performed By: #### C MP ####[facility] [address] [place], [place] [address]Dr. Cammy Cleaning Urea nitrogen [Mass/Vol] 14.0 mg/dL Normal 7.0-18.0 [facility] Comment on above: Performed By: #### C MP ####[facility] [address] [address]Dr. Cammy Cleaning Urea nitrogen/Creatinine [Mass ratio] 16.5 mg/mg Normal [facility] Comment on above: Performed By: #### C MP ####[facility] [address] [place], [place] [address]Dr. Cammy Cleaning BNPon 06-07-2022 Natriuretic peptide B (Bld) [Mass/Vol] 117.0 pg/mL Normal <=900.0 [facility] Comment on above: Performed By: #### C BC #### [facility] Laboratory [address] [address] [address] Cammy Cleaning CBC AUTO DIFFon 06-07-2022 BASO # 0.1 103/ul Normal 0.0-0.1 [facility] Comment on above: Performed By: #### C BC #### [facility] Laboratory [address] [place] [address] Dr. Cammy Cleaning Basophils/100 WBC (Bld) 0.6 % Normal 0.2-2.0 [facility] Comment on above: Performed By: #### C BC #### [facility] Laboratory [address] [place] [address] Dr. Cammy Cleaning EO # 0.6 103/ul Normal 0.0-0.7 [facility] Comment on above: Performed By: #### C BC #### [facility] Laboratory [address] [place] [address] Dr. Cammy Cleaning Eosinophils/100 WBC (Bld) 5.8 % Normal 0.9-7.0 [facility] Comment on above: Performed By: #### C BC #### [facility] Laboratory [address] [place] [address] Dr. Cammy Cleaning Erythrocyte distribution width (RBC) [Ratio] 14.6 % Normal 11.0-15.0 [facility] Comment on above: Performed By: #### C BC #### [facility] Laboratory [address] [place] [address] Dr. Cammy Cleaning Hematocrit (Bld) [Volume fraction] 45.8 % Normal 36.0-48.0 [facility] Comment on above: Performed By: #### C BC #### [facility] Laboratory [address] [place] [address] Dr. Cammy Cleaning Hemoglobin (Bld) [Mass/Vol] 14.4 g/dL Normal 12.0-16.0 [facility] Comment on above: Performed By: #### C BC #### [facility] Laboratory [address] [place] [address] Dr. Cammy Cleaning IG # 0.18 10e3/ul Critically high 0.00-0.03 [facility] Comment on above: Performed By: #### C BC #### [facility] Laboratory [address] [place] [address] Dr. Cammy Cleaning IG % 1.7 % Critically high 0.0-0.5 [facility] Comment on above: Performed By: #### C BC #### [facility] Laboratory [address] [place] [address] Dr. Cammy Cleaning LYMPH # 1.8 103/ul Normal 1.2-3.8 [facility] Comment on above: Performed By: #### C BC #### [facility] Laboratory [address] [place] [address] Dr. Cammy Cleaning Lymphocytes/100 WBC (Bld) 16.1 % Critically low 20.5-60.0 [facility] Comment on above: Performed By: #### C BC #### [facility] Laboratory [address] [place] [address] Dr. Cammy Cleaning MANUAL DIFF REQ NO Normal [facility] Comment on above: Performed By: #### C BC #### [facility] Laboratory [address] [place] [address] Dr. Cammy Cleaning MCH (RBC) [Entitic mass] 27.7 pg Normal 26.7-34.0 [facility] Comment on above: Performed By: #### C BC #### [facility] Laboratory [address] [place] [address] Dr. Cammy Cleaning MCHC (RBC) [Mass/Vol] 31.4 g/dL Normal 29.9-35.2 [facility] Comment on above: Performed By: #### C BC #### [facility] Laboratory [address] [place] [address] Dr. Cammy Cleaning MCV (RBC) [Entitic vol] 88.1 fL Normal 81.0-99.0 [facility] Comment on above: Performed By: #### C BC #### [facility] Laboratory [address] [place] [address] Dr. Cammy Cleaning MONO # 0.9 103/ul Critically high 0.3-0.8 [facility] Comment on above: Performed By: #### C BC #### [facility] Laboratory [address] [address] [address] Cammy Cleaning Monocytes/100 WBC (Bld) 8.2 % Normal 1.7-12.0 [facility] Comment on above: Performed By: #### C BC #### [facility] Laboratory [address] [place] [address] Dr. Cammy Cleaning NEUT # 7.3 103/ul Critically high 1.4-6.5 [facility] Comment on above: Performed By: #### C BC #### [facility] Laboratory [address] [place] [address] Dr. Cammy Cleaning Neutrophils/100 WBC (Bld) 67.6 % Normal 43.0-75.0 [facility] Comment on above: Performed By: #### C BC #### [facility] Laboratory [address] [place] [address] Dr. Cammy Cleaning Platelet mean volume (Bld) [Entitic vol] 8.8 fL Critically low 9.5-13.5 [facility] Comment on above: Performed By: #### C BC #### [facility] Laboratory [address] [place] [address] Dr. Cammy Cleaning PLT 169 103/ul Normal 150-450 [facility] Comment on above: Performed By: #### C BC #### [facility] [address] [place] [address] Dr. Cammy Cleaning RBC 5.20 106/ul Normal 4.20-5.40 [facility] Comment on above: Performed By: #### C BC #### [facility] Laboratory [address] [place] [address] Dr. Cammy Cleaning WBC 10.9 103/ul Normal 4.0-11.0 [facility] Comment on above: Performed By: #### C BC #### [facility] Laboratory [address] [place], [place] [id number] Dr. Cammy Cleaning ECHOCARDIO M/2D COMPLETEon 0 06-07-2022 ECHOCARDIO M/2D COMPLETE Patient: SANNA CORRALES Exam Date: 06/07/2022 : 1960 Gender:F Ordering : DR. WILLEM HIDALGO . Admission #: [id number] Family : OMID MARTINS . Order #: [id number] CLICK HERE TO VIEW EXAM ECHOCARDIOGRAM REPORT [...] Arellano M.D. on 06/09/2022 at 10:48 Normal [facility] FREE T4on 06-07-2022 Free T4 [Mass/Vol] 1.21 ng/dL Normal 0.76-1.46 [facility] Comment on above: Performed By: #### C BC #### [facility] Laboratory [address] [place] [address] Dr. Cammy Cleaning GLYCOHEMOGLOBIN A1Con 2022 ADA RECOMMENDATION SEE BELOW Normal [facility] Comment on above: Result Comment: ADA RECOMMENDED LIMIT 4.0 - 6.0 ADA THERAPEUTIC TARGET < 7.0 ACTION SUGGESTED > 7.0 Performed By: #### P OCGLUC #### [facility] Laboratory [address] [place] [address] Dr. Cammy Cleaning Glucose [Mass/Vol] 171 mg/dL Normal [facility] Comment on above: Performed By: #### P OCGLUC #### [facility] Laboratory [address] [address] [address] Cammy Cleaning HbA1c (Bld) [Mass fraction] 7.6 % Critically high 4.5-6.2 [facility] Comment on above: Performed By: #### P OCGLUC #### [facility] Laboratory [address] [address] [address] Cammy Cleaning POINT OF CARE GLUCOSEon 05-29 Glucose [Mass/Vol] 141 mg/dL Critically high -106 [facility] Comment on above: Performed By: #### C BC #### [facility] Laboratory [address] [address] [address] Cammy Cleaning Glucose [Mass/Vol] 161 mg/dL Critically high -106 [facility] Comment on above: Performed By: #### P OCGLUC ####[facility] [address] [address]Dr. Cammy Cleaning Glucose [Mass/Vol] 148 mg/dL Critically high -106 [facility] Comment on above: Performed By: #### P OCGLUC ####[facility] [address] [address]Dr. Cammy Cleaning PROF 14(COMP METB)on 023 Albumin [Mass/Vol] 2.7 g/dL Critically low 3.4-5.0 [facility] Comment on above: Performed By: #### C MP #### [facility] [address] [address] [address] Cammy Cleaning Albumin/Globulin [Mass ratio] 0.8 {ratio} Normal [facility] Comment on above: Performed By: #### C MP #### [facility] [address] [address] [address] Cammy Cleaning ALP [Catalytic activity/Vol] 85 U/L Normal 46-116 [facility] Comment on above: Performed By: #### C MP #### [facility] [address] [address] [address] Cammy Cleaning ALT [Catalytic activity/Vol] 15 U/L Normal 14-59 [facility] Comment on above: Performed By: #### C MP #### [facility] Laboratory [address] [address] [address] Cammy Cleaning Anion gap [Moles/Vol] 8.3 mmol/L Normal [facility] Comment on above: Performed By: #### C MP #### [facility] [address] [address] [address] Cammy Cleaning AST [Catalytic activity/Vol] 17 U/L Normal 15-37 [facility] Comment on above: Performed By: #### C MP #### [facility] Laboratory [address] [address] [address] Cammy Cleaning Bilirubin [Mass/Vol] 0.6 mg/dL Normal 0.2-1.0 [facility] Comment on above: Performed By: #### C MP #### [facility] [address] [address] [address] Cammy Cleaning Calcium [Mass/Vol] 8.9 mg/dL Normal 8.5-10.1 [facility] Comment on above: Performed By: #### C MP #### [facility] [address] [address] [address] Cammy Cleaning Chloride [Moles/Vol] 102 mmol/L Normal 98-107 [facility] Comment on above: Performed By: #### C MP #### [facility] [address] [address] [address] Cammy Cleaning CO2 [Moles/Vol] 34.6 mmol/L Critically high 21.0-32.0 [facility] Comment on above: Performed By: #### C MP #### [facility] [address] [address] [address] Cammy Cleaning Creatinine [Mass/Vol] 0.80 mg/dL Normal 0.55-1.02 [facility] Comment on above: Performed By: #### C MP #### [facility] [address] [address] [address] Cammy Cleaning EGFR-AF KITTITIAN >60 Normal >=60 [facility] Comment on above: Performed By: #### C MP #### [facility] [address] [address] [address] Cammy Cleaning EGFR-NON AF KITTITIAN >60 Normal >=60 [facility] Comment on above: Performed By: #### C MP #### [facility] Laboratory [address] [place] [address] Dr. Cammy Cleaning Globulin (S) [Mass/Vol] 3.2 g/dL Normal [facility] Comment on above: Performed By: #### C MP #### [facility] [address] [address] [address] Cammy Cleaning Glucose [Mass/Vol] 128 mg/dL Critically high 74-106 [facility] Comment on above: Performed By: #### C MP #### [facility] [address] [place] [address] Dr. Cammy Cleaning Potassium [Moles/Vol] 3.9 mmol/L Normal 3.5-5.1 [facility] Comment on above: Performed By: #### C MP #### [facility] [address] [place] [address] Dr. Cammy Cleaning Protein [Mass/Vol] 5.9 g/dL Critically low 6.4-8.2 [facility] Comment on above: Performed By: #### C MP #### [facility] [address] [place] [address] Dr. Cammy Cleaning Sodium [Moles/Vol] 141 mmol/L Normal 136-145 [facility] Comment on above: Performed By: #### C MP #### [facility] [address] [place] [address] Dr. Cammy Cleaning Urea nitrogen [Mass/Vol] 11.0 mg/dL Normal 7.0-18.0 [facility] Comment on above: Performed By: #### C MP #### [facility] [address] [place] [address] Dr. Cammy Cleaning Urea nitrogen/Creatinine [Mass ratio] 13.8 mg/mg Normal [facility] Comment on above: Performed By: #### C MP #### [facility] [address] [place] [address] Dr. Cammy Cleaning TSHon 06-07-2022 TSH 2.839 uIU/mL Normal 0.358-3.740 [facility] Comment on above: Performed By: #### T SH ####[facility] [address] [address]Dr. Cammy Cleaning ACETAMINOPHENon 06-06-2022 Acetaminophen [Mass/Vol] ug/mL Normal 10.0-30.0 [facility] Comment on above: Performed By: #### A CET, CARLOS, ETH ####[facility] [address] [address]Dr. Cammy Cleaning BLOOD GASES BTYon 06-06-2022 02 MODE NASAL CANNULA Normal [facility] Comment on above: Performed By: #### A BG ####[facility] [address] [place], [place] [address]Dr. Cammy Cleaning ALLENS TEST Positive Normal [facility] Comment on above: Performed By: #### A BG ####[facility] [address] [place], [place] [address]Dr. Cammy Cleaning Base excess Calc (Bld) [Moles/Vol] 9.4 mmol/L Critically high -2.0-2.0 [facility] Comment on above: Performed By: #### A BG ####[facility] [address] [address]Dr. Cammy Cleaning BIPAP PRESSURE Normal [facility] Comment on above: Performed By: #### A BG ####[facility] [address] [place], [place] [address]Dr. Cammy Cleaning CPAP Normal [facility] Comment on above: Performed By: #### A BG ####[facility] [address] [address]Dr. Cammy Cleaning FIO2 Normal [facility] Comment on above: Performed By: #### A BG ####[facility] [address] [place], [place] [address]DrNoreen Cleaning HCO3 (Bld) [Moles/Vol] 35.1 mmol/L Critically high 22.0-26.0 [facility] Comment on above: Performed By: #### A BG ####[facility] [address] [address]Dr. Cammy Cleaning LPM 2 Normal [facility] Comment on above: Performed By: #### A BG ####[facility] [address] [address]Dr. Cammy Cleaning MINUTE VOLUME Normal [facility] Comment on above: Performed By: #### A BG ####[facility] [address] [address]Dr. Cammy Cleaning Oxygen (Bld) [Partial pressure] 59.8 mm[Hg] Critically low 80.0-100.0 [facility] Comment on above: Performed By: #### A BG ####[facility] [address] [place], [place] [address]Dr. Cammy Cleaning Oxygen saturation in Blood 92.4 % Critically low 95.0-100.0 [facility] Comment on above: Performed By: #### A BG ####[facility] [address] [place], [place] [address]Dr. Cammy Cleaning PCO2 63.7 mmHg Critically high 35.0-45.0 [facility] Comment on above: Performed By: #### A BG ####[facility] [address] [address]Dr. Cammy Cleaning PEEP [facility] Comment on above: Performed By: #### A BG ####[facility] [address] [place], [place] [address]Dr. Cammy Cleaning pH (Bld) 7.349 [pH] Critically low 7.350-7.450 [facility] Comment on above: Performed By: #### A BG ####[facility] [address] [address]Dr. Cammy Cleaning PIP [facility] Comment on above: Performed By: #### A BG ####[facility] [address] [address]Dr. Cammy Cleaning [place] [facility] Comment on above: Performed By: #### A BG ####[facility] [address] [address]Dr. Cammy Cleaning PUNCTURE SITE LB Normal [facility] Comment on above: Performed By: #### A BG ####[facility] [address] [address]Dr. Cammy Cleaning RATE Normal [facility] Comment on above: Performed By: #### A BG ####[facility] [address] [address]Dr. Cammy Cleaning VENT MODE [facility] Comment on above: Performed By: #### A BG ####[facility] [address] [address]Dr. Cammy Cleaning [place] [facility] Comment on above: Performed By: #### A BG ####[facility] [address] [address]Dr. Cammy Cleaning BNPon 06-06-2022 Natriuretic peptide B (Bld) [Mass/Vol] 81.0 pg/mL Normal <=900.0 [facility] Comment on above: Performed By: #### C BC #### [facility] Laboratory [address] [address] [address] Cammy Cleaning CARDIAC PILLO 3-6on 3 CK [Catalytic activity/Vol] 205 U/L Critically high 26-192 [facility] Comment on above: Performed By: #### C MREP #### [facility] [address] [address] [address] Cammy Cleaning CK.MB [Mass/Vol] 0.77 ng/mL Normal <=3.60 [facility] Comment on above: Performed By: #### C MREP #### [facility] [address] [address] [address] Cammy Cleaning HSTROP 7.5 pg/mL Normal 4.0-51.3 [facility] Comment on above: Result Comment: CUT- OFF POINTS HAVE BEEN ESTABLISHED BASED ON THE FOURTH UNIVERSAL DEFINITIONS OF MYOCARDIAL INFARCTION. THE UPPER REFERENCE LIMIT (URL) OF TROPONIN, DEFINED THE 99TH PERCENTILE OF cTnI DISTRIBUTION IN A REFERENCE POPULATION, HAS BEEN CONFIRMED THE DECISION THRESHOLD FOR [place] DIAGNOSIS. Performed By: #### C MREP #### [facility] [address] [address] [address] Cammy Cleaning CK [Catalytic activity/Vol] 220 U/L Critically high 26-192 [facility] Comment on above: Performed By: #### C BC #### [facility] [address] [place] [address] Dr. Cammy Cleaning CK.MB [Mass/Vol] 0.86 ng/mL Normal <=3.60 [facility] Comment on above: Performed By: #### C BC #### [facility] [address] [place] [address] Dr. Cammy Cleaning HSTROP 8.7 pg/mL Normal 4.0-51.3 [facility] Comment on above: Result Comment: CUT- OFF POINTS HAVE BEEN ESTABLISHED BASED ON THE FOURTH UNIVERSAL DEFINITIONS OF MYOCARDIAL INFARCTION. THE UPPER REFERENCE LIMIT (URL) OF TROPONIN, DEFINED THE 99TH PERCENTILE OF cTnI DISTRIBUTION IN A REFERENCE POPULATION, HAS BEEN CONFIRMED THE DECISION THRESHOLD FOR [place] DIAGNOSIS. Performed By: #### C BC #### [facility] [address] [place] [address] Dr. Cammy Cleaning CBC AUTO DIFFon 06-06-2022 BASO # 0.1 103/ul Normal 0.0-0.1 [facility] Comment on above: Performed By: #### C BC #### [facility] [address] [place] [address] Dr. Cammy Cleaning Basophils/100 WBC (Bld) 0.7 % Normal 0.2-2.0 [facility] Comment on above: Performed By: #### C BC #### [facility] [address] [place] [address] Dr. Cammy Cleaning EO # 0.6 103/ul Normal 0.0-0.7 [facility] Comment on above: Performed By: #### C BC #### [facility] [address] [place] [address] Dr. Cammy Cleaning Eosinophils/100 WBC (Bld) 5.4 % Normal 0.9-7.0 [facility] Comment on above: Performed By: #### C BC #### [facility] [address] [address] [address] Cammy Cleaning Erythrocyte distribution width (RBC) [Ratio] 14.6 % Normal 11.0-15.0 [facility] Comment on above: Performed By: #### C BC #### [facility] [address] [place] [address] Dr. Cammy Cleaning Hematocrit (Bld) [Volume fraction] 47.2 % Normal 36.0-48.0 [facility] Comment on above: Performed By: #### C BC #### [facility] [address] [place] [address] Dr. Cammy Cleaning Hemoglobin (Bld) [Mass/Vol] 15.4 g/dL Normal 12.0-16.0 [facility] Comment on above: Performed By: #### C BC #### [facility] [address] [place] [address] Dr. Cammy Cleaning IG # 0.19 10e3/ul Critically high 0.00-0.03 [facility] Comment on above: Performed By: #### C BC #### [facility] [address] [place] [address] Dr. Cammy Cleaning IG % 1.7 % Critically high 0.0-0.5 [facility] Comment on above: Performed By: #### C BC #### [facility] [address] [place] [address] Dr. Cammy Cleaning LYMPH # 1.8 103/ul Normal 1.2-3.8 [facility] Comment on above: Performed By: #### C BC #### [facility] [address] [place] [address] Dr. Cammy Cleaning Lymphocytes/100 WBC (Bld) 16.0 % Critically low 20.5-60.0 [facility] Comment on above: Performed By: #### C BC #### [facility] [address] [place] [address] Dr. Cammy Cleaning MANUAL DIFF REQ NO Normal [facility] Comment on above: Performed By: #### C BC #### [facility] [address] [address] [address] Cammy Cleaning MCH (RBC) [Entitic mass] 27.7 pg Normal 26.7-34.0 [facility] Comment on above: Performed By: #### C BC #### [facility] [address] [place] [address] Dr. Cammy Cleaning MCHC (RBC) [Mass/Vol] 32.6 g/dL Normal 29.9-35.2 [facility] Comment on above: Performed By: #### C BC #### [facility] [address] [address] [address] Cammy Cleaning MCV (RBC) [Entitic vol] 85.0 fL Normal 81.0-99.0 [facility] Comment on above: Performed By: #### C BC #### [facility] [address] [place] [address] Dr. Cammy Cleaning MONO # 0.8 103/ul Normal 0.3-0.8 [facility] Comment on above: Performed By: #### C BC #### [facility] [address] [place] [address] Dr. Cammy Cleaning Monocytes/100 WBC (Bld) 6.8 % Normal 1.7-12.0 [facility] Comment on above: Performed By: #### C BC #### [facility] [address] [place] [address] Dr. Cammy Cleaning NEUT # 7.8 103/ul Critically high 1.4-6.5 [facility] Comment on above: Performed By: #### C BC #### [facility] [address] [place] [address] Dr. Cammy Cleaning Neutrophils/100 WBC (Bld) 69.4 % Normal 43.0-75.0 [facility] Comment on above: Performed By: #### C BC #### [facility] [address] [place] [address] Dr. Cammy Cleaning Platelet mean volume (Bld) [Entitic vol] 9.0 fL Critically low 9.5-13.5 [facility] Comment on above: Performed By: #### C BC #### [facility] [address] [place], [place] [address] Dr. Cammy Cleaning PLT 162 103/ul Normal 150-450 [facility] Comment on above: Performed By: #### C BC #### [facility] [address] [place], [place] [address] Dr. Cammy Cleaning RBC 5.55 106/ul Critically high 4.20-5.40 [facility] Comment on above: Performed By: #### C BC #### [facility] [address] [place], [place] [address] Dr. Cammy Cleaning WBC 11.3 103/ul Critically high 4.0-11.0 [facility] Comment on above: Performed By: #### C BC #### [facility] [address] [place], [place] [address] ABD/PELV W CONon 06-06-19 CT ABD/PELV W CON EXAMINATION: CT ABD/PELV [...] by: Christo SARAVIA Date: 2022-06-06 02:29 Normal [facility] CT CSPINE WO CONon 3 CT [...] WILL HOGAN Date: 2022-06-06 02:09 Normal [facility] CT HEAD WO CONon 06-06-2022 [...] by: Christo SARAVIA Date: 2022-06-06 02:07 Normal [facility] CT LSPINE WO CONon 3 CT [...] by: Christo SARAVIA Date: 2022-06-06 02:29 Normal [facility] CTA ABD/PELVIS WO W CONon CTA [...] ANISH JACKSON Date: 2022-06-06 04:15 Normal [facility] Covid-19 PCR (CVDTB)on SARS-CoV-2 (COVID-19) RNA JOSE L+probe Ql (Unsp spec) Not detected Normal NOT DETECTED [facility] Comment on above: Result Comment: [...] for this test is supported by the [place] of Health and Human Service's declaration that [...] used). Performed By: #### C BC #### [facility] [address] [place] [address] Dr. Cammy Cleaning DRUG SCREEN RAPID (URINE)on 06-06-2022 AMP Negative Normal NEGATIVE [facility] Comment on above: Performed By: #### D RUGRPD, ERUR #### [facility] [address] [place] [address] Dr. Cammy Cleaning BAR Negative Normal NEGATIVE [facility] Comment on above: Performed By: #### D RUGRPD, ERUR #### [facility] [address] [place] [address] Dr. Cammy Cleaning BUP Negative Normal NEGATIVE [facility] Comment on above: Performed By: #### D RUGRPD, ERUR #### [facility] [address] [place] [address] Dr. Cammy Cleaning BZO Negative Normal NEGATIVE [facility] Comment on above: Performed By: #### D RUGRPD, ERUR #### [facility] [address] [place] [address] Dr. Cammy Cleaning JEM Negative Normal NEGATIVE [facility] Comment on above: Performed By: #### D RUGRPD, ERUR #### [facility] [address] [place] [address] Dr. Cammy Cleaning CUT-OFFS SEE BELOW Normal [facility] Comment on above: Result Comment: [...] Performed By: #### D RUGRPD, ERUR #### [facility] [address] [place] [address] Dr. Cammy Cleaning DRUG CUT HEADER DRUG CLASS TEST SYSTEM CUT-OFF CONCENTRATIONS ARE FOLLOWS: Normal [facility] Comment on above: Performed By: #### D RUGRPD, ERUR #### [facility] [address] [address] [address] Cammy Cleaning mAMP Negative Normal NEGATIVE [facility] Comment on above: Performed By: #### D RUGRPD, ERUR #### [facility] [address] [address] [address] Cammy Cleaning MTD Negative Normal NEGATIVE [facility] Comment on above: Performed By: #### D RUGRPD, ERUR #### [facility] [address] [address] [address] Cammy Cleaning OPI Positive Abnormal NEGATIVE [facility] Comment on above: Performed By: #### D RUGRPD, ERUR #### [facility] [address] [place] [address] Dr. Cammy Cleaning OXY Negative Normal NEGATIVE [facility] Comment on above: Performed By: #### D RUGRPD, ERUR #### [facility] [address] [place] [address] Dr. Cammy Cleaning PCP Negative Normal NEGATIVE [facility] Comment on above: Performed By: #### D RUGRPD, ERUR #### [facility] [address] [place] [address] Dr. Cammy Cleaning PPX Negative Normal NEGATIVE [facility] Comment on above: Performed By: #### D RUGRPD, ERUR #### [facility] [address] [address] [address] Cammy Cleaning TCA Negative Normal NEGATIVE [facility] Comment on above: Performed By: #### D RUGRPD, ERUR #### [facility] [address] [address] [address] Cammy Cleaning THC Negative Normal NEGATIVE [facility] Comment on above: Performed By: #### D RUGRPD, ERUR #### [facility] [address] [place] [address] Dr. Cammy Cleaning ER URINE PROFILEon 3 Bilirubin Ql (U) Negative Normal NEGATIVE [facility] Comment on above: Performed By: #### D FLOYD, ERUR #### [facility] [address] [address] [address] Cammy Cleaning Clarity (U) CLEAR Normal CLEAR [facility] Comment on above: Performed By: #### D FLOYD, ERUR #### [facility] [address] [address] [address] Cammy Cleaning Color (U) YELLOW Normal YELLOW [facility] Comment on above: Performed By: #### D FLOYD, ERUR #### [facility] [address] [address] [address] Cammy VELIZ A micrscopic examination will be performed if indicated. Normal [facility] Comment on above: Performed By: #### D FLOYD, ERUR #### [facility] [address] [place] [address] Dr. Cammy Cleaning Glucose Ql (U) >1000 Abnormal NEGATIVE The [facility] Comment on above: Performed By: #### D FLOYD, ERUR #### [facility] [address] [address] [address] Cammy Cleaning Hemoglobin Ql (U) Negative Normal NEGATIVE [facility] Comment on above: Performed By: #### D FLOYD, ERUR #### [facility] [address] [place] [address] Dr. Cammy Cleaning Ketones Ql (U) Negative Normal NEGATIVE [facility] Comment on above: Performed By: #### D FLOYD, ERUR #### [facility] [address] [address] [address] Cammy Cleaning LEUKOCYTES Negative Normal NEGATIVE [facility] Comment on above: Performed By: #### D FLOYD, ERUR #### [facility] [address] [place] [address] Dr. Cammy Cleaning Nitrite Ql (U) Negative Normal NEGATIVE [facility] Comment on above: Performed By: #### D FLOYD, ERUR #### [facility] [address] [address] [address] Cammy Cleaning pH (U) 5.0 [pH] Normal 5-9 [facility] Comment on above: Performed By: #### D FLOYD, ERUR #### [facility] [address] [address] [address] Cammy Cleaning SPEC GRAVITY 1.010 Normal 1.005-<=1.025 [facility] Comment on above: Performed By: #### D FLOYD, ERUR #### [facility] [address] [address] [address] Cammy Cleaning UA PROTEIN TRACE Normal NEGATIVE/ TRACE [facility] Comment on above: Performed By: #### D FLOYD, ERUR #### [facility] [address] [address] [address] Cammy Cleaning UR MICRO IND NOT INDICATED Normal [facility] Comment on above: Performed By: #### D FLOYD, ERUR #### [facility] [address] [address] [address] Cammy Cleaning Urobilinogen Qn (U) 0.2 {Flory'U}/dL Normal 0.2 - 1. 0 [facility] Comment on above: Performed By: #### D FLOYD ERUR #### [facility] [address] [place] [address] Dr. Cammy Cleaning ETHANOL (BLD ALC)on 06-06-19 23 ALC NOTE NOTE: 80 mg/dl is th e legal limit for a blood alcohol level Normal [facility] Comment on above: Performed By: #### A CARLOS STEVE ETH ####[facility] [id number] [address]DrNoreen Cleaning Ethanol [Mass/Vol] mg/dL Normal [facility] Comment on above: Performed By: #### A CARLOS STEVE ETH ####[facility] [id number] [address]Dr[address] Cammy Cleaning POINT OF CARE GLUCOSEon Glucose [Mass/Vol] 180 mg/dL Critically high 74-106 [facility] Comment on above: Performed By: #### P OCGLUC #### [facility] [address] [address] [address] Cammy Cleaning Glucose [Mass/Vol] 133 mg/dL Critically high 74-106 [facility] Comment on above: Performed By: #### C BC #### [facility] [address] [place] [address] Dr. Cammy Cleaning Glucose [Mass/Vol] 201 mg/dL Critically high 74-106 [facility] Comment on above: Performed By: #### C BC #### [facility] [address] [place] [address] Dr. Cammy Cleaning Glucose [Mass/Vol] 112 mg/dL Critically high -106 [facility] Comment on above: Performed By: #### P OCGLUC #### [facility] [address] [place] [address] Dr. Cammy Cleaning PROF CHEM 8 (BAS METB)on Anion gap [Moles/Vol] 6.7 mmol/L Normal [facility] Comment on above: Performed By: #### C BC #### [facility] [address] [place] [address] Dr. Cammy Cleaning Calcium [Mass/Vol] 8.7 mg/dL Normal 8.5-10.1 [facility] Comment on above: Performed By: #### C BC #### [facility] [address] [place] [address] Dr. Cammy Cleaning Chloride [Moles/Vol] 102 mmol/L Normal 98-107 [facility] Comment on above: Performed By: #### C BC #### [facility] [address] [place] [address] Dr. Cammy Cleaning CO2 [Moles/Vol] 35.6 mmol/L Critically high 21.0-32.0 [facility] Comment on above: Performed By: #### C BC #### [facility] [address] [place] [address] Dr. Cammy Cleaning Creatinine [Mass/Vol] 0.93 mg/dL Normal 0.55-1.02 [facility] Comment on above: Performed By: #### C BC #### [facility] [address] [address] [address] Cammy Cleaning EGFR-AF KITTITIAN >60 Normal >=60 [facility] Comment on above: Performed By: #### C BC #### [facility] [address] [address] [address] Cammy Cleaning EGFR-NON AF KITTITIAN >60 Normal >=60 [facility] Comment on above: Performed By: #### C BC #### [facility] [address] [address] [address] Cammy Cleaning Glucose [Mass/Vol] 169 mg/dL Critically high 74-106 [facility] Comment on above: Performed By: #### C BC #### [facility] [address] [address] [address] Cammy Cleaning Potassium [Moles/Vol] 4.3 mmol/L Normal 3.5-5.1 [facility] Comment on above: Performed By: #### C BC #### [facility] [address] [address] [address] Cammy Cleaning Sodium [Moles/Vol] 140 mmol/L Normal 136-145 [facility] Comment on above: Performed By: #### C BC #### [facility] [address] [address] [address] Cammy Cleaning Urea nitrogen [Mass/Vol] 15.0 mg/dL Normal 7.0-18.0 [facility] Comment on above: Performed By: #### C BC #### [facility] [address] [address] [address] Cammy Cleaning Urea nitrogen/Creatinine [Mass ratio] 16.1 mg/mg Normal [facility] Comment on above: Performed By: #### C BC #### [facility] [address] [address] [address] Cammy Cleaning SALICYLATEon 06-06-2022 SALICYLATE 1.6 mg/dL Normal <=19.9 [facility] Comment on above: Performed By: #### A CET, SALYC, ETH ####[facility] [id number] [address]Dr. Cammy Cleaning XR CHEST 1 Von 06-06-2022 [...] by: CELESTE LUNA Date: 2022-06-06 02:58 Normal [facility] MRI KNEE LT WO CONon 022 [...] by: BURT FIGUEROA Date: 2022-05-10 15:59 Normal [facility] Progress Noteson 01-25-2022 Patient Safety Officer Authentication Interface Message Text EMERGENCY TRIAGE, TREAT AND TRANSPORT (ET3) DOCUMENTATION OF TELEHEALTH VISIT Date / Time: 01/14/2022729 Name: Sanna Corrales DOB: 1960 SSN: (Not on file) EMS Agency: [facility] [] Verbal consent obtained [] Implied consent - patient with potential emergency medical condition requiring assessment of capacity to refuse treatment and/or transport VITAL SIGNS: see flowsheet documentation Reason for Telehealth Visit: Chief Complaint Patient presents with Fall History of Present Ilness: 61 yo female who tripped over her small dog in the [facility]. EMS called for lift assist. No LOC, [...] Completed by: Tyler Ingram DO Normal [facility] XR CSPINE 2_3 VIEWSon 2021 XR [...] by: CHRISTEN BAKER Date: 2022-01-04 19:14 Normal [facility] CT SINUSES WO CONon 11-23-19 22 [...] by: ANISH ROJO Date: 2021-11-22 13:29 Normal [facility] Vital Signs Date Time Vital Sign Value Performing Clinician Facility 05-15-2024 13:16-0500 Body mass index (BMI) [Ratio] 53.51 kg/m2 Yarelis Gallardo Wenwo Work Phone: [facility] 05-15-2024 13:16-0500 Body weight 124.29 kg Yarelis Gallardo Wenwo Work Phone: [facility] 05-15-2024 13:16-0500 Diastolic blood pressure 84 mm[Hg] Yarelis Gallardo Wenwo Work Phone: [facility] 05-15-2024 13:16-0500 Heart rate 72 /min Yarelis Gallardo Wenwo Work Phone: [facility] 05-15-2024 13:16-0500 SaO2% (BldA) [Mass fraction] 89 % Yarelis Daily-Nossek [address] [employer] Work Phone: [facility] 05-15-2024 13:16-0500 Systolic blood pressure 122 mm[Hg] Yarelis Daily-Nossek [address] [employer] Work Phone: [facility] 04-17-2024 13:44-0500 Body mass index (BMI) [Ratio] 53.12 kg/m2 Yarelis Daily-Nossek [address] [employer] WORK[employer] Work Phone: [facility] 04-17-2024 13:44-0500 Body weight 123.38 kg Yarelis Daily-Nossek [address] [employer] WORK[employer] Work Phone: [facility] 04-17-2024 13:44-0500 Diastolic blood pressure 72 mm[Hg] Yarelis Daily-Nossek [address] [employer] WORKER Work Phone: [facility] 04-17-2024 13:44-0500 Heart rate 71 /min Yarelis Daily-Nossek [address] [employer] WORK[employer] Work Phone: [facility] 04-17-2024 13:44-0500 SaO2% (BldA) [Mass fraction] 91 % Yarelis Daily-Nossek [address] [employer] Work Phone: [facility] 04-17-2024 13:44-0500 Systolic blood pressure 116 mm[Hg] Yarelis Daily-Nossek [address] [employer] WORK[employer] Work Phone: [facility] 03-27-2024 15:05-0400 Body height 152.4 cm Erin Hemmer PA Work Phone: [facility] 03-27-2024 15:05-0400 Body mass index (BMI) [Ratio] 52.97 kg/m2 Erin Hemmer PA Work Phone: [facility] 03-27-2024 15:05-0400 Body weight 123.02 kg Erin Hemmer PA Work Phone: [facility] 03-27-2024 15:05-0400 Diastolic blood pressure 84 mm[Hg] Erin Hemmer PA Work Phone: [facility] 03-27-2024 15:05-0400 Heart rate 50 /min Erin Hemmer PA Work Phone: [facility] 03-27-2024 15:05-0400 Respiratory rate 18 /min Erin Hemmer PA Work Phone: [facility] 03-27-2024 15:05-0400 SaO2% (BldA) [Mass fraction] 96 % Erin Hemmer PA Work Phone: [facility] 03-27-2024 15:05-0400 Systolic blood pressure 128 mm[Hg] Erin Hemmer PA Work Phone: [facility] 03-14-2024 09:55-0400 Body mass index (BMI) [Ratio] 53.51 kg/m2 Yarelis Daily-Nossek [address] [employer] Work Phone: [facility] 03-14-2024 09:55-0400 Body weight 124.29 kg Yarelis Daily-Nossek [address] [employer]TER[employer] WORKER Work Phone: [facility] 03-14-2024 09:55-0400 Diastolic blood pressure 82 mm[Hg] Yarelis Daily-Nossek [address] [employer] WORKER Work Phone: [facility] 03-14-2024 09:55-0400 Heart rate 72 /min Yarelis Daily-Nossek [address] [employer] Work Phone: [facility] 03-14-2024 09:55-0400 SaO2% (BldA) [Mass fraction] 85 % Yarelis Daily-Nossek [address] [employer] Work Phone: [facility] 03-14-2024 09:55-0400 Systolic blood pressure 134 mm[Hg] Yarelis Daily-Nossek [address] RE[employer] WORKER Work Phone: [facility] 02-21-2024 13:02-0400 Body height 152.4 cm Erin Hemmer PA Work Phone: [facility] 02-21-2024 13:02-0400 Body mass index (BMI) [Ratio] 53.67 kg/m2 Erin Hemmer PA Work Phone: [facility] 02-21-2024 13:02-0400 Body temperature 99.3 [degF] Erin Hemmer PA Work Phone: [facility] 02-21-2024 13:02-0400 Body weight 124.65 kg Erin Hemmer PA Work Phone: [facility] 02-21-2024 13:02-0400 Diastolic blood pressure 82 mm[Hg] Erin Hemmer PA Work Phone: [facility] 02-21-2024 13:02-0400 Heart rate 68 /min Erin Hemmer PA Work Phone: [facility] 02-21-2024 13:02-0400 Respiratory rate 16 /min Erin Hemmer PA Work Phone: [facility] 02-21-2024 13:02-0400 SaO2% (BldA) [Mass fraction] 98 % Erin Hemmer PA Work Phone: [facility] 02-21-2024 13:02-0400 Systolic blood pressure 134 mm[Hg] Erin Hemmer PA Work Phone: [facility] 01-25-2022 11:40-0400 Diastolic blood pressure 82 mm[Hg] [facility] 01-25-2022 11:40-0400 Heart rate 76 /min [facility] 01-25-2022 11:40-0400 Respiratory rate 20 /min [facility] 01-25-2022 11:40-0400 SaO2% (BldA) [Mass fraction] 94 % [facility] Comment on above: ra 01-25-2022 11:40-0400 Systolic blood pressure 123 mm[Hg] [facility] Encounters Encounter Date Encounter Type Care Provider Facility Start: 05-15-2024 End: 05-15-2024 Lauren flowsheet Yarelis M Daily-Nossek [address] [employer] Work Phone: [facility] Start: 05-15-2024 End: 05-15-2024 Bamboo flowsheet Yarelis [place] Daily-Nossek [address] [employer] Work Phone: [facility] Start: 05-15-2024 End: 05-15-2024 Office outpatient visit 40 minutes Yarelis [place] Daily-Nossek [address] [employer] Work Phone: [facility] Comment on above: Bipolar affective di sorder, currently depressed, moderate (CMS/HCC); Mixed bipolar affective disorder, moderate (CMS/HCC) Start: 05-15-2024 End: 05-15-2024 ambulatory YARELIS Yared DAILY-[facility]SE[facility] Not Available Start: 05-06-2024 End: 05-06-2024 ambulatory Divya Alfaro MD Facility:[facility] Start: 04-17-2024 End: 04-17-2024 Bamboo flowsheet Yarelis Krishnamurthyor-Nossek [address] [employer] WORKER Work Phone: [facility] Start: 04-17-2024 End: 04-17-2024 Bamboo flowsheet Yarelis [place] Daily-Nossek [address] REPORTER[employer] WORKER Work Phone: [facility] Start: 04-17-2024 End: 04-17-2024 Office outpatient visit 40 minutes Yarelis Vail Daily-Nossek [employer] REPORTER-CENTRAL SUPPLY WORKER Work Phone: [facility] Comment on above: JENN (generalized anx iety disorder) (CMS/HCC) Start: 04-17-2024 End: 04-17-2024 ambulatory YARELIS Yared KRISHNAMURTHYOR-NOSSEK Not Available Start: 04-15-2024 End: 04-15-2024 ambulatory Divya Alfaro MD Facility:[facility] Start: 03-28-2024 End: 03-28-2024 Refmayank Baca DO Work Phone: [facility] Comment on above: Age-related nuclear cataract of both eyes Start: 03-27-2024 End: 03-27-2024 Office outpatient visit 25 minutes Erin Tariq PA Work Phone: [facility] Comment on above: Type 2 diabetes torsten itus with other specified complication, without long-term current use of insulin (CMS/HCC) (Primary Dx); Limitation of activities due to disability; Chronic sinusitis, unspecified location; Abnormality of gait due to impairment of balance; Lumbar radiculopathy; Chronic diarrhea; History of falling; Bilateral primary osteoarthritis of knee Start: 03-27-2024 End: 03-27-2024 ambulatory ERIN TARIQ Not Available Start: 03-27-2024 End: 03-27-2024 Bamboo flowsheet Erin Tariq PA Work Phone: [facility] Start: 03-27-2024 End: 03-27-2024 Bamboo flowsheet Erin Tariq PA Work Phone: [facility] Start: 03-25-2024 End: 03-25-2024 ambulatory Divya Alfaro MD Facility:[facility] Start: 03-14-2024 End: 03-14-2024 Bamboo flowsheet Yarelis Vail Daily-Nossek [employer] REPORTER-CENTRAL SUPPLY WORKER Work Phone: [facility] Start: 03-14-2024 End: 03-14-2024 Bamboo flowsheet Yarelis Vail Daily-Nossek [employer] REPORTER-CENTRAL SUPPLY WORKER Work Phone: [facility] Start: 03-14-2024 End: 03-14-2024 Office outpatient new 60 minutes Yarelis Krishnamurthyor-Nossek [address] REPORTER-CENTRAL SUPPLY WORKER Work Phone: [facility] Comment on above: Mixed bipolar affect nickie disorder, moderate (CMS/HCC); JENN (generalized anxiety disorder) (CMS/HCC) Start: 03-14-2024 End: 03-14-2024 ambulatory YARELIS KRISHNAMURTHYOR-NOSSEK Not Available Start: 02-21-2024 End: 02-21-2024 Bamboo flowsheet Erin Tariq PA Work Phone: [facility] Start: 02-21-2024 End: 02-21-2024 Bamboo flowsheet Erin Tariq PA Work Phone: [facility] Start: 02-21-2024 End: 02-21-2024 Office outpatient visit 25 minutes Erin Tariq PA Work Phone: [facility] Comment on above: Acute non-recurrent maxillary sinusitis (Primary Dx); Bipolar affective disorder, currently depressed, moderate (CMS/HCC); Chronic obstructive pulmonary disease, unspecified COPD type (CMS/HCC); Lumbar radiculopathy; Spinal stenosis, unspecified spinal region; Cervical spondylosis; Estrogen deficiency; Need for vaccination Start: 02-21-2024 End: 02-21-2024 ambulatory ERIN TARIQ Not Available Start: 01-05-2024 End: 01-05-2024 ambulatory SWATHI BACA Not Available Start: 12-06-2023 End: 12-06-2023 ambulatory ERIN TARIQ Not Available Start: 11-28-2023 End: 11-28-2023 ambulatory SWATHI BACA Not Available Start: 10-04-2023 End: 10-04-2023 ambulatory TYLER ESTRADA Not Available Start: 09-05-2023 End: 09-05-2023 ambulatory ERIN TARIQ Not Available Start: 07-05-2023 Chart abstracting Erin bartlett PA Work Phone: [facility] Start: 05-09-2023 ambulatory Pratik Ramos acility:[facility] Start: 09-01-2022 ambulatory NARENDRANATH LAKSHMIPATHY . Facility:[facility] Start: 08-23-2022 End: 08-23-2022 ambulatory NARENDRANATH LAKSHMIPATHY . Facility:[facility] Start: 07-28-2022 End: 07-29-2022 ambulatory NARENDRANATH LAKSHMIPATHY . Facility:[facility] Start: 07-26-2022 End: 07-27-2022 ambulatory NARENDRANATH LAKSHMIPATHY . Facility:[facility] Start: 07-11-2022 End: 07-12-2022 ambulatory [facility] Facility:[facility] Start: 06-06-2022 End: 06-08-[address] JER RIZO Facility:[facility] Start: 05-10-2022 End: 05-11-2022 ambulatory MR TYLER ESTRADA . Facility:[facility] Start: 01-25-2022 End: 02-02-2022 ambulatory UNKNOWN PROVIDER Facility:[facility] Start: 01-14-2022 End: 01-14-2022 ambulatory [facility] Emergenc y Triage, Treat and Transport Start: 01-14-2022 End: 01-14-2022 Emergency department patient visit [facility] Emergency Triage, Treat and Transport Comment on above: Arrived Start: 01-04-2022 End: 01-05-[address] JER RIZO Facility:[facility] Start: 11-22-2021 End: 11-23-[address] ERIN TARIQ Facility:[facility] Procedures Date Procedure Procedure Detail Performing Clinician Start: 03-27-2024 Hemoglobin glycosyla sachin a1c Erin Tariq PA Work Phone: Start: 05-17-2023 Mammography Erin bartlett PA Work Phone: Start: 11-16-2015 Colonoscopy Erin bartlett PA Work Phone: Plan of Treatment Date Care Activity Detail Author Start: 11-27-2025 Glaucoma screening Diabetes: R etinopathy Screening [facility] Start: 11-15-2025 Screening for malign ant neoplasm of colon [facility] Start: 01-26-2025 Glaucoma screening Diabetes: R etinopathy Screening [facility] Start: 12-05-2024 Medicare Annual Wellness (AWV) Medicare Annual Wellness (AWV) [facility] Start: 06-27-2024 Hemoglobin A1c measurement Diabetes: Hemoglobin A1C [facility] Start: 06-17-2024 End: 06-17-2024 Patient encounter procedure 06/17/2024 2:00 PM EST Office Visit [facility] [address] [facility] [address] [place] [address] Yarelis Gallardo, FREELANCE COURT REPORTER-CENTRAL SUPPLY WORKER [address] [facility] [address] [place] [address] [facility] Start: 05-17-2024 Screening for malign ant neoplasm of breast Mammogram [facility] Start: 05-15-2024 End: 05-15-2024 Patient encounter procedure [facility] Comment on above: Arrived Start: 04-17-2024 End: 04-17-2024 Patient encounter procedure [facility] Comment on above: Arrived Start: 04-11-2024 End: 04-11-2024 Professional / ancillary services management 04/11/2024 2:00 PM EST Ancillary Procedure [facility] [address] [place] [id number] [facility] Start: 03-27-2024 End: 03-27-2024 Patient encounter procedure 03/27/2024 3:00 PM EDT Office Visit [facility] [address] [facility] [address] [place] [phone] Erin Tariq PA [address] [facility] [address] [place] [address] Arrived [facility] Comment on above: Arrived Start: 03-27-2024 End: 03-27-2025 Microalbumin/Creatinine panel in random Urine Microalbumin / creatinine, urine ratio Lab Routine Type 2 diabetes mellitus with other specified complication, without long-term current use of insulin ([facility]) Expected: 03/27/2024 (Approximate), Expires: 03/27/2025 [facility] Work Phone: Comment on above: Expected: 03/27/2024 (Approximate), Expires: 03/27/2025 Start: 03-25-2024 End: 03-25-2024 Patient encounter procedure 03/25/2024 1:00 PM EDT Office Visit [facility] [address] [facility] [address] [place] [address] Erin Tariq PA [address] [facility] [address] [place] [address] [facility] Start: 03-23-2024 Urine screening for protein Diabetes: Urine Protein Screening [facility] Start: 03-22-2024 Medicare Annual Wellness (AWV) Medicare Annual Wellness (AWV) [facility] Start: 03-14-2024 End: 03-14-2024 Patient encounter procedure [facility] Comment on above: Arrived Start: 03-07-2024 Hemoglobin A1c measurement Diabetes: Hemoglobin A1C [facility] Start: 02-21-2024 End: 02-20-2025 DXA Skeletal system Views for bone density DEXA bone density Imaging Routine Estrogen deficiency Expected: 02/21/2024, Expires: 02/20/2025 [facility] Work Phone: Comment on above: Expected: 02/21/2024 , Expires: 02/20/2025 Start: 02-21-2024 End: 02-21-2024 Patient encounter procedure 02/21/2024 1:00 PM EDT Office Visit [facility] [address] [place] [address] Erin Tariq PA [address] [place] [address] Arrived [facility] Comment on above: Arrived Start: 01-28-2024 Influenza vaccination Influenza Vacc ine (#1) [facility] Start: 07-18-2023 End: 07-18-2023 Patient encounter procedure 07/18/2023 2:15 PM EST Office Visit [facility] [address] [place] [id number] Swathi Baca DO [address] [place], [place] [id number] [facility] Start: 07-05-2023 End: 07-05-2023 Patient encounter procedure 07/05/2023 2:00 PM EST Office Visit [facility] [address] [place] [address] Erin Tariq PA [address] [place] [address] [facility] Start: 06-22-2023 Hemoglobin A1c measurement Diabetes: Hemoglobin A1C [facility] Start: 02-26-2022 Influenza vaccination Influenza Vacc ine (#1) [facility] Start: 2011 Measurement of occul t blood in single stool specimen [facility] Start: 2011 Screening for malign ant neoplasm of breast Mammography [facility] Start: 2011 Screening for malign ant neoplasm of colon CRC Screening [facility] Start: 2011 Shingles (RZV) Vacci ne (1 of 2) Shingles (RZV) Vaccine (1 of 2) [facility] Start: 2006 Cholesterol [Mass/volume] in Serum or Plasma Cholesterol [facility] Start: 1991 Screening for malign ant neoplasm of cervix [facility] Start: 1982 Screening for malign ant neoplasm of cervix Pap Smear [facility] Start: 1979 Hepatitis C screening Hepatitis C An tibody [facility] Start: 1979 Tetanus + diphtheria + acellular pertussis vaccine (product) Tdap Booster [facility] Start: 1976 HIV screening HIV Test [facility] Start: 1961 COVID-19 Vaccine (#1) COVID-19 Vacci ne (#1) [facility] Start: 1961 Screening for malign ant neoplasm of colon [facility] Immunizations Immunization Date Immunization Notes Care Provider Yaneli nuñez 02-21-2024 influenza, seasonal, injectable, preservative free Erin KINGSLEY Work Phone: [facility] 12-06-2023 tetanus toxoid, redu aimee diphtheria toxoid, and acellular pertussis vaccine, adsorbed Erin KINGSLEY Work Phone: [facility] 04-13-2023 Influenza, injectabl e, Madin [place] Canine Kidney, preservative free, quadrivalent Erin KINGSLEY Work Phone: [facility] 04-13-2023 RSV, recombinant, pr otein subunit RSVpreF, adjuvant reconstitu, 120mcg/0.5mL, PF (Arexvy) Erin KINGSLEY Work Phone: [facility] 04-13-2023 influenza virus vacc ine, unspecified formulation Erin Hemmer PA Work Phone: [facility] 06-13-2022 Pneumococcal Conjuga te PCV 20 Erin Hemmer PA Work Phone: [facility] 03-31-2022 Influenza, injectabl e, Madin [place] Canine Kidney, preservative free, quadrivalent Erin Hemmer PA Work Phone: [facility] 03-24-2021 influenza, injectabl e, quadrivalent, contains preservative Erin Hemmer PA Work Phone: [facility] 03-10-2020 Influenza, injectabl e, Madin [place] Canine Kidney, preservative free, quadrivalent Erin Hemmer PA Work Phone: [facility] 03-12-2019 influenza, injectabl e, madin andria canine kidney, preservative free Erin Hemmer PA Work Phone: [facility] 04-06-2018 Influenza, injectabl e, Madin [place] Canine Kidney, preservative free, quadrivalent Erin Hemmer PA Work Phone: [facility] 02-21-2017 pneumococcal polysaccharide vaccine, 23 valent Erin Hemmer PA Work Phone: [facility] 02-21-2017 seasonal influenza, intradermal, preservative free Erin Hemmer PA Work Phone: [facility] 04-19-2016 influenza, injectabl e, quadrivalent, preservative free Erin Hemmer PA Work Phone: [facility] 02-04-2015 seasonal influenza, intradermal, preservative free Erin Hemmer PA Work Phone: [facility] 03-25-2008 seasonal influenza, intradermal, preservative free Erin Hemmer PA Work Phone: [facility] Payers Date Payer Category Payer Medicare (Managed Care) [facility] [id number] 2023 Private Health Insurance [facility] [id number] 2023 Unknown [id number] 2023 Unknown [id number] 2022 Self-pay 2022 Medicare [id number] 2022 Unknown [id number] [id number] [id number] 2022 Unknown 9 2021 Unknown [id number] 1961 Unknown [id number] 2.16.840.1.466941.3.579. 2.732 1961 Unknown [id number] 2.16.840.1.407653.3.579. 2.593 1961 Unknown [id number] 2.16.840.1.366475.3.579. 2.593 1961 Unknown [id number] 2.16.840.1.900286.3.579. 2.593 1961 Unknown [id number] 2.16.840.1.731932.3.579. 2.593 1961 Unknown [id number] 2.16.840.1.222394.3.579. 2.593 1961 Unknown [id number] 2.16.840.1.476208.3.579. 2.593 1961 Unknown [id number] 2.16.840.1.102132.3.579. 2.593 1961 Unknown [id number] 2.16.840.1.998931.3.579. 2.593 1961 Unknown [id number] 2.16.840.1.547955.3.579. 2.593 1961 Unknown [id number] 2.16.840.1.303378.3.579. 2.1259 1961 Unknown [id number] 2.16.840.1.005116.3.579. 2.1259 1961 Unknown [id number] 2.16.840.1.261761.3.579. 2.1259 1961 Unknown [id number] 2.16.840.1.240956.3.579. 2.1259 1961 Unknown [id number] 2.16.840.1.535348.3.579. 2.1259 1961 Unknown [id number] 2.16.840.1.898023.3.579. 2.1259 1961 Unknown [id number] 2.16.840.1.708067.3.579. 2.1259 1961 Unknown [id number] 2.16.840.1.558955.3.579. 2.1259 1961 Unknown [id number] 2.16.840.1.819298.3.579. 2.1259 1961 Unknown [id number] 2.16.840.1.492508.3.579. 2.1259 1961 Unknown [id number] 2.16.840.1.181096.3.579. 2.1259 1961 Unknown [id number] 2.16.840.1.110381.3.579. 2.196 1961 Unknown [id number] 2.16.840.1.011608.3.579. 2.196 1961 Unknown [id number] 2.16.840.1.641895.3.579. 2.196 Unknown [id number] 2.16.840.1.784412.3.579. 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 Check blood glucose daily.. [id number] Start: 03-22-2023 Goals Date Patient Goal Desired Activity /State Personal health goal Clinical Notes 01-25-2022 to 05-15-2024 Yarelis Gallardo APRN-CENTRAL SUPPLY WORKER - 05/15/2024 1:30 PM Elliot Gallardo APRN-CENTRAL SUPPLY WORKER - 04/17/2024 1:30 PM TEETEE Sequeira - 03/27/2024 3:00 PM Sidney Cruz - 03/14/2024 9:30 AM EDT Note Date & Type Note Facility 05-15-2024 History of Present illness Narrative Images from the original note were not included. Sanna Corrales is a 64 y.o. female presents for Medication Management. HPI: Patient is here for medication follow up. Patient mood has improved since last appt. Mood is reported as getting depressed thinking about what my sister does for me. Helps her with showering. Anxiety is 4-5 (10worst). Is off and on. Sleeping 6 -7 hours. Medication compliant. No reported side effects. Denies abuse of substances. Medical problems since last visit. Trouble standing. Back pain, Psychosocial stressors include chronic pain. SUBJECTIVE: PAST MEDICAL HISTORY: Past Medical History: Diagnosis Date Abnormal finding on radiological examination of breast Adult respiratory distress syndrome ([facility]) 2014 Allergic Allergic rhinitis due to allergen Arthritis Asthma ([facility]) Bipolar 1 disorder ([facility]) 1991 most recent episode (or current) depressed, unspecified Bronchitis Calculus of gallbladder without mention of cholecystitis or obstruction Carpal tunnel syndrome left Cataract Cholecystitis Closed fracture of ankle Congenital heart failure ([facility]) COPD (chronic obstructive pulmonary disease) ([facility]) Degeneration of lumbar or lumbosacral intervertebral disc Diabetes mellitus ([facility]) without mention of complication, type II or unspecified type, not stated as uncontrolled Disease of thyroid gland ([facility]) Dry eyes Essential hypertension, benign ([facility]) Essential hypertension, malignant ([facility]) Extremity ischemia 2014 rt lower Fracture ankle Headache Hernia of abdominal wall without mention of obstruction or gangrene History of being hospitalized 06/06/2022 AMS due to Med Overuse, Hypoxia, Fall, Acute on Chronic RF Hx of migraine headaches Hypertension ([facility]) Hypothyroidism ([facility]) IBS (irritable bowel syndrome) Influenza with pneumonia Manic episode ([facility]) 1985 Meniere disease Morbid obesity ([facility]) Myalgia and myositis Osteoarthritis Osteoporosis ([facility]) Personal history of medical treatment 2013 cardiopulmonary collapse and acute respiratory failure( Respiratory failure ([facility]) Rheumatoid arthritis ([facility]) Rotator cuff tear right Skin lesion Spondylosis unspecified site without mention of myelopathy Suicidal ideations 2012 Thyroid disease ([facility]) ALLERGIES: Allergies Allergen Reactions Ambien [...] day coffee, tea Drug use: Never Depression: At risk (04/17/2024) PHQ-2 PHQ-2 Score: 4 REVIEW OF SYMPTOMS - MENTAL STATUS EXAM Appearance Appearance: Casual dress, normal grooming and hygiene Attitude Attitude: Cooperative, conversant, engaged, and with good eye contact. Behavior Cooperative, conversant, engaged, and with good eye contact. Speech Normal, clear, regular rate, rhythm and volume Affect full affect appropriate with mood Mood Depressed and Anxious Thought Process Organized and Clear Thought Content No Suicidal Ideation and No Homicidal ideation Perception No perceptual abnormalities noted Orientation Appropriate to age, Person, Place, and Time Memory/Concentration Short term intact and shelter intact Insight/Judgement Fair OBJECTIVE: Visit Vitals Smoking [...] found for: TRIG ASSESSMENT AND PLAN: Assessment/Plan This is a 64-year-old female who is here to establish psychiatric care for the treatment of her bipolar disorder. Patient was previously a patient of Dr. Parekh at [facility]. Patient had also seen Dr. Huddleston in [...] be made. Diagnosis Bipolar disorder most recent depressed JENN Plan Decrease Cymbalta 90mg -Cymbalta 60mg + 30mg dt tremors irritability anxiety, memory Lamictal 200 mg nightly- bipolar depression Trazodone 100mg 2 tabs nightly Vraylar 3mg po every day ;Patient states the previous psychiatrist had plan to decrease Vraylar due to complaints of tremors. She was on 6mg. Feels better off Buspar Add vistaril 25mg q 8hours prn for anxiety Refer to Psychotherapy Patient was seen Face to Face, Reviewed chart documents and documentation, Visit time :45min F/U 4weeks documented in this encounter [facility] 04-17-2024 History of Present illness Narrative Images [...] of breast Adult respiratory distress syndrome (CMS/HCC) 2013 Allergic Allergic rhinitis due to allergen Arthritis Asthma ([facility]) Bipolar 1 disorder ([facility]) 1991 most recent episode (or current) depressed, unspecified Bronchitis Calculus of gallbladder without mention of cholecystitis or obstruction Carpal tunnel syndrome left Cataract Cholecystitis Closed fracture of ankle Congenital heart failure ([facility]) COPD (chronic obstructive pulmonary disease) ([facility]) Degeneration of lumbar or lumbosacral intervertebral disc Diabetes mellitus ([facility]) without mention of complication, type II or unspecified type, not stated as uncontrolled Disease of thyroid gland ([facility]) Dry eyes Essential hypertension, benign ([facility]) Essential hypertension, malignant ([facility]) Extremity ischemia 2013 rt lower Fracture ankle Headache Hernia of abdominal wall without mention of obstruction or gangrene History of being hospitalized 06/06/2022 AMS due to Med Overuse, Hypoxia, Fall, Acute on Chronic RF Hx of migraine headaches Hypertension ([facility]) Hypothyroidism ([facility]) IBS (irritable bowel syndrome) Influenza with pneumonia Manic episode ([facility]) 1985 Meniere disease Morbid obesity ([facility]) Myalgia and myositis Osteoarthritis Osteoporosis ([facility]) Personal history of medical treatment 2013 cardiopulmonary collapse and acute respiratory failure( Respiratory failure ([facility]) Rheumatoid arthritis ([facility]) Rotator cuff tear right Skin lesion Spondylosis unspecified site without mention of myelopathy Suicidal ideations 2012 Thyroid disease ([facility]) ALLERGIES: Allergies Allergen Reactions Ambien [...] 2007 STRESS TEST EXERCISE 2011 lexiscan TONSILLECTOMY FAMILY HISTORY: Family History Problem [...] and Time Memory/Concentration Short term intact and exterminator intact Insight/Judgement Fair OBJECTIVE: Visit Vitals Smoking [...] previously a patient of Dr. Parekh at [facility]. Patient had also seen Dr. Huddleston in [...] 10mg twice a day for one week [id number] twice a day week Then 5mg once a day for week then discontinue Add vistaril 25mg q 8hours prn for anxiety Refer to Psychotherapy Patient was seen Face to Face, Reviewed chart documents and documentation, Visit time :40min F/U 6 weeks documented in this encounter [facility] 03-27-2024 History of Present illness Narrative [...] a 64 y.o. female who presents for [facility] ER follow up. Flowsheet Row Patient Outreach from 03/26/2024 in [facility] with Octavia Golden LPN Hospital Information ED, Hospital or Halfway Facility Discharge? ED Patient has been contacted within 1 week of being seen in the ED No Have two attempts been made to contact the patient within one week of being seen in the ED? No Discharge Date 03/18/24 Discharged To: Home Setting Discharge Hospital [facility] Engagement Call Start Time 1030 [...] Suppl device USE DIRECTED 100 strip 2 Qlfswyf-Fxlobjqcthf-Iccjgiqgnh (Breztri Aerosphere) 160-9-4.8 MCG/ACT aerosol Inhale 2 [...] blood glucose daily 100 each 3 HYDROcodone-acetaminophen (Columbus) 5-325 MG tablet Take 1 tablet by [...] NEEDED 7 DAY(S) 30 g 2 [DISCONTINUED] cajorcig-ozzuonssd-dyvgtkyxqguvrp (Cortisporin) 3.5-60544-8 otic suspension USE 3 DROPS IN EACH [...] examination of breast Adult respiratory distress syndrome ([facility]) 2013 Allergic Allergic rhinitis due to allergen Arthritis Asthma ([facility]) Bipolar 1 disorder ([facility]) 1991 most recent episode (or current) depressed, unspecified Bronchitis Calculus of gallbladder without mention of cholecystitis or obstruction Carpal tunnel syndrome left Cataract Cholecystitis Closed fracture of ankle Congenital heart failure ([facility]) COPD (chronic obstructive pulmonary disease) ([facility]) Degeneration of lumbar or lumbosacral intervertebral disc Diabetes mellitus ([facility]) without mention of complication, type II or unspecified type, not stated as uncontrolled Disease of thyroid gland ([facility]) Dry eyes Essential hypertension, benign (CMS/HCC) Essential hypertension, malignant ([facility]) Extremity ischemia 2013 rt lower Fracture ankle Headache Hernia of abdominal wall without mention of obstruction or gangrene History of being hospitalized 06/06/2022 AMS due to Med Overuse, Hypoxia, Fall, Acute on Chronic RF Hx of migraine headaches Hypertension ([facility]) Hypothyroidism ([facility]) IBS (irritable bowel syndrome) Influenza with pneumonia Manic episode ([facility]) 1985 Meniere disease Morbid obesity ([facility]) Myalgia and myositis Osteoarthritis Osteoporosis ([facility]) Personal history of medical treatment 2012 cardiopulmonary collapse and acute respiratory failure( Respiratory failure ([facility]) Rheumatoid arthritis ([facility]) Rotator cuff tear right Skin lesion Spondylosis unspecified site without mention of myelopathy Suicidal ideations 2011 Thyroid disease ([facility]) Past Surgical History: Procedure Laterality Date BIOPSY SKIN SUBCUTANEOUS TISSUE 2013 removal/ biopsy;Disease:abnormal skin lesion BREAST BIOPSY 2011 BRONCHOSCOPY 2013 CARDIAC CATHETERIZATION 2011 CARPAL TUNNEL RELEASE Left 2008 CHOLECYSTECTOMY 2011 ECHO 2014 EMBOLECTOMY 2014 right femoral artery OTHER SURGICAL HISTORY 2012 percutaneous cannulation of right femerol artery/v;Disease:cardiopulmonary collapse and acute respiratory failure OTHER SURGICAL HISTORY ORIF [place] KNEE SCOPE,DIAGNOSTIC Right 02/04/2020 Dr. Cheek ROTATOR CUFF REPAIR Right 2007 STRESS TEST EXERCISE 2010 lexiscan TONSILLECTOMY Visit Vitals BP 128/84 Pulse [...] complication, without long-term current use of insulin ([facility]) - POCT Glycated hemoglobin, total [...] 06/27/2024) for Diabetes. documented in this encounter [facility] 03-14-2024 History of Present illness Narrative NEW PATIENT PSYCHIATRIC EVALUATION This is a 64-year-old female who is here to establish psychiatric care for the treatment of her bipolar disorder. Patient was previously a patient of Dr. Parekh at [facility]. Patient had also seen Dr. Huddleston in [...] suffers from alcoholism. Her Brother is a foil operator and denies any mental health problems. Denies Hx of Substance abuse. Frequency of Alcohol on special occasions. Marijuana use denies. Legal hx denies. Patient is no children. Worked at [employer]. Lives with her sister. Stressors: Patient states [...] previously a patient of Dr. Parekh at [facility]. Patient had also seen Dr. Huddleston in [...] is drinking again. documented in this encounter [facility] 02-21-2024 History of Present illness Narrative Images from the original note were not included. HPI Med Refill Additional comments: Lamictal, trazodone Last edited by Melania Reyes LPN on 02/21/2024 1:01 PM. Subjective Patient ID: Мария Corrales is a 63 y.o. female who presents for sinus infection. Мария is present today for sinus infection. Admits started having symptoms 2 weeks ago and she c/o nasal drainage (yellow), cough with yellow phlegm, bilateral ear pain, sinus pain/pressure, headache, post nasal drainage. She has been taking OTC sinus pressure medicine/congestion medicine it helps a little. Current Outpatient Medications on File Prior to Visit Medication Sig Dispense Refill levothyroxine (Synthroid, Levoxyl) 112 MCG tablet Take 1 tablet (112 mcg) by mouth in the morning. 100 tablet 3 albuterol (2.5 MG/3ML) 0.083% nebulizer solution Take [...] Suppl device USE DIRECTED 100 strip 2 Pqwstuu-Ytamgisugka-Jljnbyxxan (Breztri Aerosphere) 160-9-4.8 MCG/ACT aerosol Inhale 2 puffs in the morning and 2 puffs before bedtime. 10.7 g 5 busPIRone (Buspar) 30 MG tablet Take 1 tablet by mouth in the morning and 1 tablet before bedtime. Cariprazine HCl (Vraylar) 3 MG capsule Take 1 capsule by mouth at bedtime dapagliflozin (Farxiga) 10 MG TAKE 1 TABLET [...] (1,200 mg) at bedtime. 400 tablet 1 glucose blood (IGlucose Test Strips) test strip Check blood glucose daily 100 each 3 Lancets 30G misc 1 each in the morning. Check blood glucose daily.. 100 each 3 metoprolol tartrate (Lopressor) 25 MG tablet TAKE 1 TABLET (25 MG) BY MOUTH IN THE MORNING AND BEFORE BEDTIME 180 tablet 4 vcdpkggz-osiqzkqbm-sqxkstkixatuhx (Cortisporin) 3.5-05188-6 otic suspension USE 3 DROPS IN EACH AFFECTED EAR IN THE MORNING, AT NOON, IN THE EVENING, AND BEFORE BEDTIME FOR 7 DAYS 10 mL 0 OXYGEN-HELIUM IN inhaled nasal continuous use rosuvastatin (Crestor) 5 MG tablet Take 1 tablet (5 mg) by mouth Daily 90 tablet 1 Tradjenta 5 MG tablet TAKE 1 TABLET BY MOUTH EVERY DAY 90 tablet 0 triamcinolone (Kenalog) 0.5 % cream APPLY 1 APPLICATION EXTERNALLY ONCE A DAY NEEDED 7 DAY(S) 30 g 2 [DISCONTINUED] HYDROcodone-acetaminophen (Columbus) 5-325 MG tablet Take 1 tablet by mouth every 6 (six) hours if needed for severe pain or moderate pain 56 tablet 0 [DISCONTINUED] LaMICtal 25 MG tablet Take 1 tablet by mouth at bedtime. [DISCONTINUED] lamoTRIgine (LaMICtal) 200 MG tablet Take 1 tablet (200 mg) by mouth at bedtime 90 tablet 1 [DISCONTINUED] traZODone (Desyrel) 100 MG tablet Take 2 tablets (200 mg) by mouth at bedtime 90 tablet 1 No current facility-administered medications on file prior to visit. I have reviewed and reconciled the history and medication list with the patient today. Allergies Allergen Reactions Cefdinir Hives Ibandronic Acid Hives Nabumetone Other Reaction(s): PT DOESN'T REMEMBER Penicillin G Other Reaction(s): fever, hives Sulfanilamide Other Reaction(s): Fever,hives Social History Tobacco Use Smoking status: Never Smokeless tobacco: Never Vaping Use Vaping status: Never Used Substance Use Topics Alcohol use: Not Currently Comment: Caffeine intake: 1-2 cups per day coffee, tea Drug use: Never Family History Problem Relation Name Age of Onset Hypertension Mother Mental illness Mother Cancer Mother Heart disease Father Mental illness Father Cancer Father Depression Father Hyperlipidemia Father Irritable bowel syndrome Father Past Medical History: Diagnosis Date Abnormal finding on radiological examination of breast Adult respiratory distress syndrome ([facility]) 2014 Allergic Allergic rhinitis due to allergen Arthritis Asthma (CMS/HCC) Bipolar 1 disorder ([facility]) 1991 most recent episode (or current) depressed, unspecified Bronchitis Calculus of gallbladder without mention of cholecystitis or obstruction Carpal tunnel syndrome left Cataract Cholecystitis Closed fracture of ankle Congenital heart failure (CMS/HCC) Degeneration of lumbar or lumbosacral intervertebral disc Diabetes mellitus (CMS/HCC) without mention of complication, type II or unspecified type, not stated as uncontrolled Disease of thyroid gland (CMS/HCC) Dry eyes Essential hypertension, benign (CMS/HCC) Essential hypertension, malignant (CMS/HCC) Extremity ischemia 2014 rt lower Fracture ankle Headache Hernia of abdominal wall without mention of obstruction or gangrene History of being hospitalized 06/06/2022 AMS due to Med Overuse, Hypoxia, Fall, Acute on Chronic RF Hx of migraine headaches Hypertension (CMS/HCC) Hypothyroidism (CMS/HCC) IBS (irritable bowel syndrome) Influenza with pneumonia Manic episode (CMS/HCC) 1984 Meniere disease Morbid obesity (CMS/HCC) Myalgia and myositis Osteoarthritis Osteoporosis (CMS/HCC) Personal history of medical treatment 2012 cardiopulmonary collapse and acute respiratory failure( Respiratory failure (CMS/HCC) Rheumatoid arthritis (CMS/HCC) Rotator cuff tear right Skin lesion Spondylosis unspecified site without mention of myelopathy Thyroid disease (CMS/HCC) Past Surgical History: Procedure Laterality Date BIOPSY SKIN SUBCUTANEOUS TISSUE 2013 removal/ biopsy;Disease:abnormal skin lesion BREAST BIOPSY 2011 BRONCHOSCOPY 2012 CARDIAC CATHETERIZATION 2011 CARPAL TUNNEL RELEASE Left 2008 CHOLECYSTECTOMY 2011 ECHO 2014 EMBOLECTOMY 2014 right femoral artery OTHER SURGICAL HISTORY 2012 percutaneous cannulation of right femerol artery/v;Disease:cardiopulmonary collapse and acute respiratory failure OTHER SURGICAL HISTORY ORIF [place] KNEE SCOPE,DIAGNOSTIC Right 02/04/2020 Dr. Cheek ROTATOR CUFF REPAIR Right 2007 STRESS TEST EXERCISE 2011 lexiscan TONSILLECTOMY Visit Vitals BP 134/82 Pulse 68 Temp 99.3 F Resp 16 Ht 5' Wt 274 lb 12.8 oz SpO2 98% BMI 53.67 kg/m Smoking Status Never BSA 2.3 m Review of Systems Constitutional: Negative for chills, fatigue and fever. HENT: Positive for congestion, ear pain, postnasal drip, rhinorrhea, sinus pressure and sinus pain. Negative for sore throat. Respiratory: Positive for cough. Negative for shortness of breath and wheezing. Cardiovascular: Negative for chest pain, palpitations and leg swelling. Gastrointestinal: Negative for abdominal pain, constipation, diarrhea, nausea and vomiting. Neurological: Positive for headaches. Objective Physical Exam Constitutional: General: She is not in acute distress. Appearance: She is well-developed. She is obese. HENT: Head: Normocephalic and atraumatic. Right Ear: Tympanic membrane is erythematous. Left Ear: Tympanic membrane is erythematous. Nose: Right Turbinates: Swollen. Left Turbinates: Swollen. Mouth/Throat: Mouth: Mucous membranes are dry. Pharynx: [...] in complete sentences. Lymphadenopathy: Cervical: No cervical adenopathy. Skin: General: Skin is warm and dry. Neurological: General: No focal deficit present. Mental Status: She is alert and oriented to person, place, and time. Gait: Gait abnormal. Comments: Gait is broad based Psychiatric: Mood and Affect: Mood normal. Behavior: Behavior normal. Assessment/Plan Diagnoses and all orders for this visit: Acute non-recurrent maxillary sinusitis - azithromycin (Zithromax) 250 MG tablet; Take 2 tablets (500 mg) by mouth Daily for 1 day, THEN 1 tablet (250 mg) Daily for 4 days. Start the above as directed. Reviewed potential s/e with patient. Encouraged probiotic while on antibiotic. Increase water intake, get plenty of rest. Follow up if no improvement in one week. Bipolar affective disorder, currently depressed, moderate (CMS/HCC) - lamoTRIgine (LaMICtal) 25 MG tablet; Take 1 tablet (25 mg) by mouth at bedtime - lamoTRIgine (LaMICtal) 200 MG tablet; Take 1 tablet (200 mg) by mouth at bedtime - traZODone (Desyrel) 100 MG tablet; Take 2 tablets (200 mg) by mouth at bedtime This is a chronic medical condition that is stable since last assessment. No changes in treatment are suggested at this time. Refills provided. Chronic obstructive pulmonary disease, unspecified COPD type (CMS/HCC) - methylPREDNISolone (Medrol Dospak) 4 MG tablets; Follow schedule on package instructions Start above as prescribed. Take with food. Lumbar radiculopathy Provided pt with referral to [facility] for further evaluation and treatment. She has received injections in the past. Spinal stenosis, unspecified spinal region See above. Cervical spondylosis - HYDROcodone-acetaminophen (Columbus) 5-325 MG tablet; Take 1 tablet by mouth every 6 (six) hours if needed for severe pain or moderate pain O[facility] report generated and reviewed. Refill provided on the above. Patient can continue to take it as needed. Estrogen deficiency - DEXA bone density; Future Pt requesting an updated DEXA. States was told by Rheumatology in the past that she has Osteoporosis. Provided pt with order to have updated DEXA scan. Need for vaccination Provided pt with flu shot today. She tolerated this well. Follow up in about 4 weeks (around 03/20/2024) for Diabetes. documented in this encounter [facility] 07-26-2022 Note PAIN MANAGEMENT CONS ULTATION [...] purpose. I have decreased the use of Columbus from q. 6 hours to q.i.d., 5 mg pills, to be taken as tolerated, and to increase the baclofen 10 mg pill, one pill t.i.d. also as tolerated. Went over the details of the procedure with the patient. All her questions were answered. She agrees to proceed with the outlined plan. [facility] 06-06-2022 Note PROCEDURE: XR SHOULD [...] by: BURT FIGUEROA Date: 2022-06-06 13:36 [facility] 01-25-2022 History of Present illness Narrative Images from the original note were not included. EMERGENCY TRIAGE, TREAT AND TRANSPORT (ET3) DOCUMENTATION OF TELEHEALTH VISIT Date / Time: 01/14/2022729 Name: Sanna Corrales : 1960 SSN: (Not on file) EMS Agency: [facility] [] Verbal consent obtained [] Implied consent - patient with potential emergency medical condition requiring assessment of capacity to refuse treatment and/or transport VITAL SIGNS: see flowsheet documentation Reason for Telehealth Visit: Chief Complaint Patient presents with Fall History of Present Ilness: 61 yo female who tripped over her small dog in the [facility]. EMS called for lift assist. No LOC, [...] current) mixed, moderate JENN (generalized anxiety disorder) ([facility]) Generalized anxiety disorder [facility] Diagnosis Type 2 diabetes mellitus with other specified complication, without long-term current use of insulin (CMS/HCC)- Primary Limitation of activities due to disability [...] HealthcareEvaluation note* Diagnosis JENN (generalized anxiety disorder) (CMS/HCC) Generalized anxiety disorder [facility] Diagnosis Bipolar affective disorder, currently depressed, moderate (CMS/HCC) Bipolar I disorder, most recent episode (or current) depressed, moderate Mixed bipolar affective disorder, moderate (CMS/HCC) Bipolar I disorder, most recent episode (or current) mixed, moderate [facility] Diagnosis Acute non-recurrent maxillary sinusitis- Primary Bipolar affective disorder, currently depressed, moderate (CMS/HCC) Bipolar I disorder, most recent episode (or current) depressed, moderate Chronic obstructive pulmonary disease, unspecified COPD type (CMS/HCC) Lumbar radiculopathy Thoracic or lumbosacral neuritis or radiculitis, unspecified Spinal stenosis, unspecified spinal region Cervical spondylosis Cervical spondylosis without myelopathy Estrogen deficiency Other ovarian failure Need for vaccination Need for prophylactic vaccination and inoculation against unspecified single disease documented in this encounter [facility] Summary [...] Med Refill Reason Comments Med Management Follow-up Reason Comments Follow-up Med Management Reason Comments Med Refill Lamictal, trazodone INFORMATION SOURCE (unrecogn ized section and content) DATE CREATED AUTHOR 02/03/2022 [facility] DATE CREATED AUTHOR AUTHOR'S ORGANIZ ATION 08/31/2022 [facility] DATE CREATED AUTHOR AUTHOR'S ORGANIZ ATION 08/04/2023 [facility] DATE CREATED AUTHOR AUTHOR'S ORGANIZ ATION 05/18/2024 [facility] EPIC DATE CREATED AUTHOR AUTHOR'S ORGANIZ ATION 05/20/2024 [facility] Care Teams (unrecognized sec tion and content) Laundry Aid Relationship Specialty Start Date End Date Jer Rizo MD [address] [facility] [address] [place] [address] PCP - General Internal Medicine 01/03/23 Jer Rizo MD [address] Jose [facility]ando [address] [place] [address] PCP - Devoted 05/29/23 Laundry Aid Relationship Specialty Start Date End Date Jer Rizo MD [address] [facility] [address] [place] [address] PCP - General Internal Medicine 01/03/23 Jer Rizo MD [address] [facility] [address] [place] [address] PCP - Devoted 05/29/23 Laundry Aid Relationship Specialty Start Date End Date Jer Rizo MD [address] [facility] [address] [place] [address] PCP - General Internal Medicine 01/03/23 Jer Rizo MD [address] [place] [address] PCP - Devoted 05/29/23 Laundry Aid Relationship Specialty Start Date End Date Jer Rizo MD [address] [place] [address] PCP - General Internal Medicine 01/03/23 Jer Rizo MD [address] [place] [address] PCP - Devoted 05/29/23 Laundry Aid Relationship Specialty Start Date End Date Jer Rizo MD [address] [place] [address] PCP - General Internal Medicine 01/03/23 Jer Rizo MD [address] [facility] [address] [place] [address] PCP - Devoted 05/29/23 Laundry Aid Relationship Specialty Start Date End Date Jer Rizo MD [address] [place] [address] PCP - General Internal Medicine 01/03/23 Jer Rizo MD [address] [place] [address] PCP - Devoted 05/29/23 Laundry Aid Relationship Specialty Start Date End Date Jer Rizo MD [address] [place] [address] PCP - General Internal Medicine 01/03/23 Jer Rizo MD [address]ando [address] [place] [address] PCP - Devoted 05/29/23 Laundry Aid Relationship Specialty Start Date End Date Jer Rizo MD [address] [place] [address] PCP - General Internal Medicine 01/03/23 Jer Rizo MD [address] [place] [address] PCP - Devoted 05/29/23 Laundry Aid Relationship Specialty Start Date End Date Jer Rizo MD [address] [place] [address] PCP - General Internal Medicine 01/03/23 Jer Rizo MD [address] [place] [address] PCP - Devoted 05/29/23 Laundry Aid Relationship Specialty Start Date End Date Jer Rizo MD [address] [place] [address] PCP - General Internal Medicine 01/03/23 Jer Rizo MD [address] [place] [address] PCP - Devoted 05/29/23 FOR RECORDS PERTAINING [...] BE BASED ON THE PRIMARY CLINICAL RECORDS. [facility] [employer] [facility]. provides no warranty or guarantee of the accuracy or completeness of information in this document.
[2024-07-22 08:25] LABS: Glucometer 260 mg/dL (74-106)
[2024-07-22 09:05] VITALS: BP 128/83; PULSE 74; O2SAT 91
[2024-07-22 09:06] VITALS: BP 134/82; PULSE 76; O2SAT 90
[2024-07-22] MEDS: DEXAMETHASONE SOD PHOS 10 MG/ML VIAL INJ (09:13)
[2024-07-22] MEDS: BUPIVACAINE HCL 0.25% PF 25 MG/10 ML VIAL 2 ML INJ (09:13)
[2024-07-22] MEDS: LIDOCAINE HCL 2% 400 MG/20 ML MDV 8 ML INJ (09:13)
--- NOTE | 2024-07-22 09:20 | P.ON_ITS ---
Date of procedure: 07/22/24 Pre-op diagnosis: Pain due to cervical spondylosis without myelopathy Post-op diagnosis: same as pre-op Procedure: Procedure: Right C2-3, 3-4 radiofrequency ablation Medications: Bupivacaine 0.25% 2cc, lidocaine 2% 3cc, dexamethasone 10mg The patient was seen and examined in the preoperative holding area.? The site was marked.? Written informed consent was obtained and placed on the chart.? The patient was brought to the medical procedure unit and placed in the prone position.? A timeout was completed verifying correct patient, procedure, positioning, and special requirements.? The skin overlying the target points, the designated medial branch, were prepped and draped in the usual sterile fashion.? The target point was achieved with a 20-gauge 15 cm with a 10 mm curved active tip radiofrequency cannula under direct fluoroscopic visualizatio n.? The needle was inserted at level C2 on the right side. Needle tip position was confirmed with lateral fluoroscopic position.? Motor stimulation was carried out at 2 Hz up to 5 volts with the absence of extremity activity.? This was repeated at level C3, 4 on right side.?? Sensory stimulation was carried out.? Concordant pain was realized at the above- mentioned sites.? Then radiofrequency lesioning was carried out times 90 seconds at 80 degrees times 2 lesions at each level.? The radiofrequency probe was removed prior to cannula removal.? The above-mentioned injectate was placed in 1 mL increments.? The needle was removed.? Insertion sites were covered.? The patient was taken to the postoperative recovery area and monitored for an appropriate length of time before being found suitable for discharge in the company of a responsible adult. Anesthesia: Local Surgeon: Divya Alfaro Pathology: none sent Condition: stable Disposition: no change
== END 2024-07-22 09:43 | disposition home or self-care (01) ==
PROVIDERS: Visit Provider Anesthesiology
DX: M47.812 Spondylosis without myelopathy or radiculopathy, cervical region (principal)
CPT/HCPCS: 36415; 64633; 64634; 82948; J0665; J1100

== ENCOUNTER 2024-08-05 08:01 | Day surgery (SDC) | payer MEDICARE, SELFPAY ==
--- OUTSIDE RECORDS SUMMARY | 2024-08-05 08:22 | XMS_ITS | CCD ---
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 Role Phone Unavailable Primary Care Provider [...] ., SIOMARA Admitting Rachael vailable DR JER IRZO Primary Care Unavailable FREDY, DR RUSSELL Primary [...] Unavailable SEAN ., MR TYLER Consulting Unavailable LAKSHMIPATHY ., NARENDVICTORIANOATH Attending Rachael vailable CARROLLMIRODOLFO ., NARENDRANATH Admitting Rachael vailable BRIA GUAJARDO Consulting Unavailable DR JER RIZO Primary Care Unavailable RAFA ., SIOMARA Consulting Rachael Jer Fitch MD Primary Care Provider [phone] Jer Rizo MD Unavailable [phone] Pratik Soria Attending Unavailab Pratik Dunlap Admitting Unavailab Jer Calvin Primary Care Unavailable Daily-Nossek Yarelis SLOAN M Unavailable Dominic HERRON, Divya Jasmine Attending Unavailable Gihakeem HERRON, Andrius Vytfrida Attending Unavailable Gihakeem HERRON, Andrius Vytautcassandra Attending Unavailable Dominic HERRON, Andrius Vytautcassandra Attending Unavailable Jer Rizo MD Unavailable DAILYYARELIS NUNEZ Attending Unavailab le DAILY-NOSSEK YARELIS M Referring Unavailab BRAEDEN Wilcox Attending Unavailable DAILY-NOSSEK YARELIS M Referring Unavailab le HEMERIN MARIANO Attending Unavailable TYLER ESTRADA Attending Unavailable TYLER ESTRADA Referring Unavailable SWATHI BACA Attending Unavailable PILLO DIGGS Referring Unavailable HEMERIN MARIANO Attending Unavailable SWATHI BACA Attending Unavailable HEMERIN MARIANO Attending Unavailable DAILY-NOSSEK, YARELIS M Attending Unavailab le HEMERIN MARIANO Attending Unavailable DAILY-NOSSEK, YARELIS M Attending Unavailab le DAILY-NOSSEK, YARELIS M Attending Unavailab le Allergies Allergy Classification Reported Allergen(s) Allergy Type Date of Onset Reaction(s) Facility (2 sources) cefdinir Drug Allergy 3 [facility] Repository (1 source) Codeine Drug Allergy [facility] (2 sources) Ibandronate Drug Allergy 3 [facility] (2 sources) nabumetone Drug Allergy 3 [facility] (2 sources) Penicillins Drug allergy (disorder) 3 [facility] (2 sources) Sulfonamides (Antibiotic) Drug allergy (disorder) 3 [facility] (20 sources) [facility] Work Phone: (20 sources) Ibandronate Drug Allergy 3 Hives [facility] Healthcare (20 sources) nabumetone Drug Allergy 3 [facility] Healthcare (20 sources) Penicillin G Drug Allergy 3 [facility] Healthcare (20 sources) Sulfanilamide Allergy to substance 3 [facility] Healthcare (16 sources) Sertraline Drug Allergy 4 [facility] Healthcare (16 sources) zolpidem Drug Allergy 4 Other [facility] Healthcare Medications Current Medications Medication Drug Class(es) Dates Sig (Normalized) Sig (Original) acetaminophen 325 mg / HYDROcodone bitartrate 5 mg oral tablet (20 sources) Opioid Agonist Start: 09-05-2023 End: 02-21-2024 take 1 tablet by mouth every six hours for pain HYDROcodone-acetam inophen (Tiff) 5-325 MG tablet Indications: Cervical spondylosis Take 1 tablet by mouth every 6 (six) hours if needed for severe pain or moderate pain 56 tablet 02/21/2024 Active Start: 03-22-2023 take 1 tablet by tk th every six hours for pain HYDROcodone-acetaminophen (Tiff) 5-325 MG tablet Indications: Cervical spondylosis Take 1 tablet by mouth every 6 (six) hours if needed for severe pain or moderate pain. 56 tablet 0 03/22/2023 Active [id number] 200 actuat albuterol 0.09 mg/actuat metered dose [...] 6 tablet 02/21/2024 02/25/2024 Active bacillus coagulans [id number] unt / inulin 250 mg oral capsule (13 sources) Start: 03-27-2024 Bacillus Coagulans-Inulin (Probiotic Formula) 1-250 BILLION-MG capsule Indications: Chronic diarrhea Take 1 capsule by mouth at noon and 1 capsule in the evening. 60 capsule 2 03/27/2024 Active baclofen 10 mg oral tablet (20 sources) gamma-Aminobutyric Acid-ergic Agonist Start: 03-05-2024 take [...] 03/22/2023 Active Blood Glucose Monitoring Suppl device (20 sources) Start: 04-04-2023 Blood Glucose Monitoring Suppl device Indications: Type 2 diabetes mellitus with other specified complication, without long-term current use of insulin (CMS/HCC) USE DIRECTED 100 strip 2 04/04/2023 Active 120 actuat budesonide 0.16 mg/actuat / formoterol fumarate 0.0048 mg/actuat / glycopyrrolate 0.009 mg/actuat metered dose inhaler (20 sources) Corticosteroi d, beta2-Adrener gic Agonist Start: [...] (20 sources) Atypical Antipsychotic Start: 03-14-2024 End: 10-28-2024 take 1 capsule by mouth at bedtime Cariprazine HCl (Vraylar) 3 MG capsule Indications: Mixed bipolar affective disorder, moderate (CMS/HCC) Take 1 capsule by mouth at bedtime 90 capsule 07/30/2024 10/28/2024 Active take 1 capsule by mouth at bedti me Cariprazine HCl (Vraylar) 3 MG capsule Take 1 capsule by mouth at bedtime Active take 1 capsule by mouth once imani ly Vraylar 4.5 MG capsule Take 1 capsule by mouth 1 (one) time each day. 0 Active dapagliflozin 10 mg oral tablet (20 sources) Sodium-Glucose Cotransporter 2 Inhibitor Start: 11-06-2023 take 1 tablet by mouth once daily dapagliflozin (Farxiga) 10 MG Indications: 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)neuropathy ([facility]/HCC) TAKE 1 TABLET BY MOUTH EVERY DAY 100 tablet 3 11/06/2023 Active take 1 tablet by mouth once gianna y Farxiga 10 MG Take 1 tablet by mouth 1 (one) time each day. 0 Active diazePAM 10 mg oral tablet (2 sources) Benzodiazepine Start: 07-09-2024 take 1 tablet by mouth once daily diazePAM (Valium) 10 MG tablet Take 10 mg by mouth Daily 1 tab prior to procedure 07/09/2024 Active diclofenac sodium 75 mg delayed release oral tablet (20 sources) Nonsteroidal Anti-inflammatory Drug Start: 01-26-2024 take [...] and Norepinephrine Reuptake Inhibitor Start: 05-15-2024 End: 07-23-2025 take 1 capsule by mouth once daily DULoxetine (Cymbalta) [address] capsule Indications: Bipolar affective disorder, currently depressed, moderate (CMS/HCC) Take 1 capsule (30 mg) by mouth Daily Do not crush or chew. 30 capsule 1 07/23/2024 07/30/2024 Discontinued Start: 05-15-2024 End: 05-15-2025 take 1 capsule by mouth once daily DULoxetine (Cymbalta) [address] capsule Indications: Bipolar affective disorder, currently depressed, moderate (CMS/HCC) Take 1 capsule (60 mg) by mouth Daily 90 capsule 07/30/2024 10/28/2024 Active Start: 11-01-2023 End: 07-30-2024 take 2 capsules by mouth once daily DULoxetine (Cymbalta) [address] capsule Indications: Bipolar affective disorder, currently depressed, moderate (CMS/HCC) Take 2 capsules (120 mg) by mouth 1 (one) time each day at the same time 200 capsule 3 11/01/2023 07/30/2024 Discontinued (Reorder) take 2 capsules by m outh once daily Cymbalta [address] capsule Take 2 capsules by mouth 1 (one) time each day at the same time. 0 Active fluticasone propionate 0.05 mg/actuat metered dose nasal spray (14 sources) Corticosteroid Start: 04-22-2024 take 1 spray(s) [...] 0 Active furosemide 40 mg oral tablet (20 sources) Loop Diuretic Start: 09-12-2023 take 1 [...] 0 Active gabapentin 600 mg oral tablet (20 sources) Anti-epileptic Agent Start: 09-05-2023 take 1 tablet by mouth twice daily, then take 2 tablets by mouth at bedtime gabapentin (Neurontin) 600 MG tablet Indications: Type 2 diabetes mellitus with autonomic neuropathy, unspecified whether salvage determiner insulin use (CMS/HCC) Take 1 tablet (600 [...] diabetes mellitus with autonomic neuropathy, unspecified whether mcfp insulin use (CMS/HCC) Take 1 tablet (600 mg) by mouth in the morning and 1 tablet (600 mg) in the evening and 1 tablet (600 mg) before bedtime. 300 tablet 3 11/04/2022 Active hydrOXYzine pamoate 25 mg oral capsule (9 sources) Antihistamine Start: 04-17-2024 End: 05-17-2024 take 1 capsule by mouth every eight hours for anxiety hydrOXYzine pamoate (Vistaril) 25 MG capsule Indications: JENN (generalized anxiety disorder) (CMS/HCC) Take 1 capsule (25 mg) by mouth every 8 (eight) hours if needed for anxiety 30 capsule 2 04/17/2024 Active ketorolac tromethamine 5 mg/ml ophthalmic solution [...] 3 02/21/2024 05/15/2024 Discontinued Start: 11-28-2023 End: 10-28-2024 take 1 tablet by mouth at bedtime lamoTRIgine (LaMICtal) 200 MG tablet Indications: Bipolar affective disorder, currently depressed, moderate (CMS/HCC) Take 1 tablet (200 mg) by mouth at bedtime 90 tablet 1 07/30/2024 10/28/2024 Active take 1 tablet by tk th at bedtime LaMICtal 200 MG tablet Take 1 tablet by mouth at bedtime. 0 Active levothyroxine sodium 0.112 mg oral tablet (20 sources) l-Thyroxine Start: 11-27-2023 take 1 tablet [...] 11/23/2022 Active linagliptin 5 mg oral tablet (20 sources) Dipeptidyl Peptidase 4 Inhibitor Start: 02-09-2024 take 1 tablet by mouth once daily Tradjenta 5 MG tablet Indications: Type 2 diabetes mellitus with autonomic neuropathy, unspecified whether salvage determiner insulin use (CMS/HCC) TAKE 1 TABLET BY [...] Active metoprolol tartrate 25 mg oral tablet (20 sources) beta-Adrenergic Sher Start: 10-30-2023 take 1 [...] 200 tablet 3 11/04/2022 Active OXYGEN-HELIUM IN (20 sources) Start: 01-21-2022 OXYGEN-HELIUM IN inhaled nasal continuous use 01/21/2022 Active Start: 01-21-2022 OXYGEN-HELIUM IN inhaled nasal continuous use 0 01/21/2022 Active rosuvastatin calcium 5 mg oral tablet (20 sources) HMG-CoA Reductase Inhibitor Start: 05-31-2024 take 1 tablet by mouth once daily rosuvastatin (Crestor) 5 MG tablet Indications: Hypokalemia TAKE 1 TABLET BY MOUTH EVERY DAY 90 tablet 1 05/31/2024 Active Start: 11-28-2023 take 1 tablet by tk once daily rosuvastatin (Crestor) 5 MG tablet Indications: Hypokalemia Take 1 tablet (5 mg) by mouth Daily 90 tablet 1 11/28/2023 Active traMADol hydrochloride 50 mg oral tablet (13 sources) Opioid Agonist Start: 03-25-2024 take 1 tablet by mouth three times daily as needed for pain traMADol (Ultram) 50 MG tablet Take 1 tablet by mouth 3 (three) times a day as needed for moderate pain 03/25/2024 Active traZODone hydrochloride 100 mg oral tablet (20 sources) Serotonin Reuptake Inhibitor Start: 07-30-2024 take 2 tablets by mouth at bedtime traZODone (Desyrel) 100 MG tablet Indications: Bipolar affective disorder, currently depressed, moderate (CMS/HCC) Take 2 tablets (200 mg) by mouth at bedtime 90 tablet 1 07/30/2024 Active Start: 07-30-2024 take 2 tablets by mo ut at bedtime traZODone (Desyrel) 100 MG tablet Indications: Bipolar affective disorder, currently depressed, moderate (CMS/HCC) Take 2 tablets (200 mg) by mouth at bedtime 90 tablet 1 07/30/2024 Active Start: 11-28-2023 End: 07-30-2024 take 2 tablets by mouth at bedtime traZODone (Desyrel) 100 MG tablet Indications: Bipolar affective disorder, currently depressed, moderate (CMS/HCC) Take 2 tablets (200 mg) by mouth at bedtime 90 tablet 3 05/15/2024 07/30/2024 Discontinued (Reorder) take 2 tablets by mo uth at bedtime traZODone (Desyrel) 100 MG tablet Take 2 tablets by mouth at bedtime. 0 Active triamcinolone acetonide 5 mg/ml topical cream (20 sources) Corticosteroid Start: 05-18-2023 triamcinolone (Kenalog) 0.5 [...] MG tablet Indications: JENN (generalized anxiety disorder) ([facility]) Take 1 tablet (15 mg) by mouth [...] / neomycin 3.5 mg/ml / polymyxin b [id number] unt/ml otic suspension (9 sources) Aminoglycoside Antibacterial, Polymyxin-class Antibacterial, Corticosteroid Start: 01-12-2024 End: 03-27-2024 ncdqxeiz-iwzitycrl-gqzfrcqus isone (Cortisporin) 3.5-93977-0 otic suspension Indications: Acute otitis externa of both ears, unspecified type USE 3 DROPS IN EACH AFFECTED EAR IN THE MORNING, AT NOON, IN THE EVENING, AND BEFORE BEDTIME FOR 7 DAYS 10 mL 01/12/2024 03/27/2024 Discontinued (Other) methylPREDNISolone (5 sources) Corticosteroid Start: 02-21-2024 End: 03-14-2024 methylPREDNISolone (Medrol D ospak) 4 MG tablets Indications: Chronic obstructive pulmonary disease, unspecified COPD type ([facility]/HCC) Follow schedule on package instructions 21 tablet 02/21/2024 03/14/2024 Discontinued Start: 02-21-2024 methylPREDNISo lone (Medrol Dospak) 4 MG tablets Indications: Chronic obstructive pulmonary disease, unspecified COPD type ([facility]) Follow schedule on package instructions 02/21/2024 Active [...] Chronic Chronic obstructive pulmonary disease and bronchiectasis (20 sources) Chronic obstructive lung disease; Translations: [Chronic obstructive pulmonary disease, unspecified] Onset: 01-02-2023 01-02-2023 Chronic Coronary atherosclerosis and other heart disease (20 sources) Atherosclerotic heart disease of [place] coronary artery without angina pectoris; Translations: [Coronary [...] fall, initial encounter] Onset: 06-15-2022 Episodic Endometriosis (20 sources) Endometriosis (clinical); Translations: [Endometriosis, unspecified] Onset: 09-05-2023 09-05-2023 Chronic Essential hypertension (20 sources) Essential (primary) hypertension; Translations: [Essential hypertension] Onset: 06-15-2022 01-02-2023 Chronic Headache; including migraine (20 sources) Migraine; Translations: [Migraine without aura, not intractable, without status migrainosus] Onset: 01-02-2023 01-02-2023 Chronic Hepatitis (20 sources) Nonalcoholic steatohepatitis; Translations: [Nonalcoholic steatohepatitis (IVAN)] [...] Onset: 06-15-2022 Chronic Other aftercare (1 source) salvage determiner (current) use of insulin; Translations: [CREATIVE SPECIALIST CURRENT USE OF INSULIN] Onset: 06-15-2022 Episodic Other aftercare (1 source) Other salvage determiner (current) drug therapy; Translations: [OTH CREATIVE SPECIALIST CURRENT DRUG THERAPY] Onset: 06-15-2022 Episodic Other [...] Chronic Other nutritional; endocrine; and metabolic disorders (20 sources) Extreme obesity with alveolar hypoventilation; Translations: [Morbid (severe) obesity with alveolar hypoventilation] Onset: 01-02-2023 01-02-2023 Chronic Other nutritional; endocrine; and metabolic disorders (20 sources) Obesity caused by energy imbalance; Translations: [Morbid (severe) obesity due to excess calories] Onset: 12-06-2023 12-06-2023 Chronic Other nutritional; endocrine; and metabolic disorders (20 sources) Body mass index 40+ - severely obese; Translations: [Body mass index (BMI) 50.0-59.9, adult] Onset: 12-06-2023 12-06-2023 Chronic Other screening for suspected conditions (not mental disorders or infectious disease) (20 sources) Computed tomography result abnormal; Translations: [Abnormal findings on diagnostic imaging of other specified body structures] Onset: 01-02-2023 01-02-2023 Chronic Other upper respiratory disease (20 sources) Allergic rhinitis; Translations: [Allergic rhinitis, unspecified] Onset: 01-02-2023 01-02-2023 Chronic Other upper respiratory infections (20 sources) Chronic sinusitis, unspecified; Translations: [Chronic sinusitis] Onset: 11-22-2021 Chronic Other upper respiratory infections (2 sources) Acute maxillary sinusitis; Translations: [Acute maxillary sinusitis, unspecified] 02-21-2024 Episodic Residual codes; unclassified (20 sources) Obstructive sleep apnea syndrome; Translations: [Obstructive [...] 01-02-2023 Chronic Rheumatoid arthritis and related disease (20 sources) Rheumatoid arthritis, unspecified; Translations: [Rheumatoid arthritis] Onset: 06-15-2022 01-02-2023 Chronic Spondylosis; intervertebral disc disorders; other back problems (20 sources) Spondylosis without myelopathy or radiculopathy, lumbar region; Translations: [Spondylosis without myelopathy or radiculopathy, lumbosacral region] Onset: 01-05-2022 Chronic Superficial injury; contusion (1 source) Contusion of lower back and pelvis, initial encounter; Translations: [CONTUSION LOWER BACK PELVIS INITIAL] Onset: 06-15-2022 Episodic Thyroid disorders (20 sources) Hypothyroidism, unspecified; Translations: [Hypothyroidism] Onset: 06-15-2022 11-23-2022 Chronic Unclassified (3 sources) LOW BACK PAIN, UNSPECIFIED; Translations: [LOW BACK PAIN, UNSPECIFIED] Onset: 07-31-2022 Unclassified (1 source) CONTACT W/AND (SUSP) EXPOS COVID-19; Translations: [CONTACT W/AND (SUSP) EXPOS COVID-19] Onset: 06-15-2022 Unclassified (20 sources) Patient on antidepressant monitoring plan Onset: 10-31-2023 10-31-2023 Past or Other Problems Problem Classification Problem Date Documented Da te Episodic/Chronic Abdominal hernia (20 sources) Diaphragmatic hernia without obstruction or gangrene; Translations: [Diaphragmatic hernia] Onset: 06-08-2022 01-03-2023 Episodic Abdominal pain (20 sources) Indigestion; Translations: [Epigastric pain] Onset: 01-02-2023 01-02-2023 Episodic Administrative/social admission (20 sources) Finding of activity of daily living; Translations: [Limitation of activities due to disability] Onset: 06-08-2022 01-03-2023 Episodic Fluid and electrolyte disorders (20 sources) Hypokalemia; Translations: [Hypokalemia] Onset: 01-04-2023 01-04-2023 Episodic Mood disorders (20 sources) Mood disorders Onset: 03-22-2023 Resolved: 07-30-2024 03-22-2023 Noninfectious gastroenteritis (20 sources) Chronic diarrhea; Translations: [Noninfective gastroenteritis and colitis, unspecified] Onset: 01-02-2023 01-02-2023 Episodic Other and unspecified benign neoplasm (20 sources) Adenomatous polyp of colon ; Translations: [Benign neoplasm of colon, unspecified] Onset: 01-02-2023 01-02-2023 Episodic Other connective tissue disease (20 sources) Fibromyalgia; Translations: [Fibromyalgia] Onset: 01-02-2023 01-02-2023 Episodic Other connective tissue disease (20 sources) Muscle pain; Translations: [Myalgia, unspecified site] Onset: 01-02-2023 01-02-2023 Episodic Other connective tissue disease (20 sources) Muscle weakness; Translations: [Muscle weakness (generalized)] Onset: 06-08-2022 01-03-2023 Episodic Other diseases of veins and lymphatics (1 source) Stasis dermatitis; Translations: [Venous insufficiency (chronic) (peripheral)] Onset: 01-02-2023 01-02-2023 Episodic Other diseases of veins and lymphatics (20 sources) Disorder of vein of lower extremity; Translations: [Venous insufficiency (chronic) (peripheral)] Onset: 01-02-2023 01-02-2023 Episodic Other gastrointestinal disorders (20 sources) Constipation; Translations: [Constipation, unspecified] Onset: 01-02-2023 01-02-2023 Episodic Other injuries and conditions due to external causes (20 sources) History of fall; Translations: [History of falling] Onset: 06-08-2022 01-03-2023 Episodic Other nervous system disorders (20 sources) Abnormal gait due to impairment of balance; Translations: [Other abnormalities of gait and mobility] Onset: 06-08-2022 01-04-2023 Episodic Other upper respiratory disease (20 sources) Hoarse; Translations: [Dysphonia] Onset: 01-02-2023 01-02-2023 Episodic Other upper respiratory disease (20 sources) Nasal obstruction; Translations: [Other specified disorders of nose and nasal sinuses] Onset: 01-02-2023 01-02-2023 Episodic Residual codes; unclassified (20 sources) Altered mental status; Translations: [Altered mental status, unspecified] Onset: 01-02-2023 Resolved: 12-06-2023 01-02-2023 Episodic Screening and history of mental health and substance abuse codes (20 sources) H/O: psychiatric disorder; Translations: [Personal history [...] 03-27-2024 HbA1c (Bld) [Mass fraction] 7.5 % [facility] No Panel Informationon 03-27 Interpretation and review of laboratory results Abnormal [facility] POINT OF CARE GLUCOSEon 07-28 Glucose [Mass/Vol] 238 mg/dL Critically high 74-106 [facility] Comment on above: Performed By: #### P OCGLUC #### [facility] [address] [address] [address] Cammy Cleaning XR HIPS SOPHY [id number] [...] joint and sacroiliac joint osteoarthritis. Normal [facility] WO CONon 07-11-19 [facility] CON EXAMINATION: MRI [facility] WO CON HISTORY: Lumbar radiculopathy COMPARISON: No [...] CHRISTEN BAKER Date: 2022-07-11 16:37 Normal [facility] CBC AUTO DIFFon 06-08-2022 BASO # 0.1 103/ul Normal 0.0-0.1 [facility] Comment on above: Performed By: #### C BC #### [facility] [address] [address] [address] Cammy Cleaning Basophils/100 WBC (Bld) 0.8 % Normal 0.2-2.0 [facility] Comment on above: Performed By: #### C BC #### [facility] [address] [place] [address] Dr. Cammy Cleaning EO # 0.5 103/ul Normal 0.0-0.7 [facility] Comment on above: Performed By: #### C BC #### [facility] [address] [place] [address] Dr. Cammy Cleaning Eosinophils/100 WBC (Bld) 5.2 % Normal 0.9-7.0 [facility] Comment on above: Performed By: #### C BC #### [facility] [address] [place] [address] Dr. Cammy Cleaning Erythrocyte distribution width (RBC) [Ratio] 14.8 % Normal 11.0-15.0 [facility] Comment on above: Performed By: #### C BC #### [facility] [address] [place] [address] Dr. Cammy Cleaning Hematocrit (Bld) [Volume fraction] 50.0 % Critically high 36.0-48.0 [facility] Comment on above: Performed By: #### C BC #### [facility] [address] [place] [address] Dr. Cammy Cleaning Hemoglobin (Bld) [Mass/Vol] 15.2 g/dL Normal 12.0-16.0 [facility] Comment on above: Performed By: #### C BC #### [facility] [address] [address] [address] Cammy Cleaning IG # 0.19 10e3/ul Critically high 0.00-0.03 [facility] Comment on above: Performed By: #### C BC #### [facility] [address] [address] [address] Cammy Cleaning IG % 1.8 % Critically high 0.0-0.5 [facility] Comment on above: Performed By: #### C BC #### [facility] [address] [place] [address] Dr. Cammy Cleaning LYMPH # 2.1 103/ul Normal 1.2-3.8 [facility] Comment on above: Performed By: #### C BC #### [facility] [address] [place] [address] Dr. Cammy Cleaning Lymphocytes/100 WBC (Bld) 19.6 % Critically low 20.5-60.0 [facility] Comment on above: Performed By: #### C BC #### [facility] [address] [place] [address] Dr. Cammy Cleaning MANUAL DIFF REQ NO Normal [facility] Comment on above: Performed By: #### C BC #### [facility] [address] [place] [address] Dr. Cammy Cleaning MCH (RBC) [Entitic mass] 27.6 pg Normal 26.7-34.0 [facility] Comment on above: Performed By: #### C BC #### [facility] [address] [place] [address] Dr. Cammy Cleaning MCHC (RBC) [Mass/Vol] 30.4 g/dL Normal 29.9-35.2 [facility] Comment on above: Performed By: #### C BC #### [facility] [address] [place] [address] Dr. Cammy Cleaning MCV (RBC) [Entitic vol] 90.7 fL Normal 81.0-99.0 [facility] Comment on above: Performed By: #### C BC #### [facility] [address] [address] [address] Cammy Cleaning MONO # 0.7 103/ul Normal 0.3-0.8 [facility] Comment on above: Performed By: #### C BC #### [facility] [address] [place] [address] Dr. Cammy Cleaning Monocytes/100 WBC (Bld) 7.0 % Normal 1.7-12.0 [facility] Comment on above: Performed By: #### C BC #### [facility] [address] [place] [address] Dr. Cammy Cleaning NEUT # 6.9 103/ul Critically high 1.4-6.5 [facility] Comment on above: Performed By: #### C BC #### [facility] [address] [place] [address] Dr. Cammy Cleaning Neutrophils/100 WBC (Bld) 65.6 % Normal 43.0-75.0 [facility] Comment on above: Performed By: #### C BC #### [facility] [address] [place] [address] Dr. Cammy Cleaning Platelet mean volume (Bld) [Entitic vol] 8.7 fL Critically low 9.5-13.5 [facility] Comment on above: Performed By: #### C BC #### [facility] [address] [place] [address] Dr. Cammy Cleaning PLT 166 103/ul Normal 150-450 [facility] Comment on above: Performed By: #### C BC #### [facility] [address] [place] [address] Dr. Cammy Cleaning RBC 5.51 106/ul Critically high 4.20-5.40 [facility] Comment on above: Performed By: #### C BC #### [facility] [address] [place] [address] Dr. Cammy Cleaning WBC 10.5 103/ul Normal 4.0-11.0 [facility] Comment on above: Performed By: #### C BC #### [facility] [address] [place] [address] Dr. Cammy Cleaning POINT OF CARE GLUCOSEon 05-29 Glucose [Mass/Vol] 134 mg/dL Critically high 74-106 [facility] Comment on above: Performed By: #### P OCGLUC #### [facility] [address] [address] [address] Cammy Cleaning PROF 14(COMP METB)on 023 Albumin [Mass/Vol] 3.0 g/dL Critically low 3.4-5.0 [facility] Comment on above: Performed By: #### C MP ####[facility] [address] [address]Dr. Cammy Cleaning Albumin/Globulin [Mass ratio] 0.8 {ratio} Normal [facility] Comment on above: Performed By: #### C MP ####[facility] [address] [address]Dr. Cammy Cleaning ALP [Catalytic activity/Vol] 85 U/L Normal 46-116 [facility] Comment on above: Performed By: #### C MP ####[facility] [address] [address]Dr. Cammy Cleaning ALT [Catalytic activity/Vol] 19 U/L Normal 14-59 [facility] Comment on above: Performed By: #### C MP ####[facility] [address] [address]Dr. Cammy Cleaning Anion gap [Moles/Vol] 6.9 mmol/L Normal [facility] Comment on above: Performed By: #### C MP ####[facility] [address] [address]Dr. Cammy Cleaning AST [Catalytic activity/Vol] 18 U/L Normal 15-37 [facility] Comment on above: Performed By: #### C MP ####[facility] [address] [address]Dr. Cammy Cleaning Bilirubin [Mass/Vol] 0.6 mg/dL Normal 0.2-1.0 [facility] Comment on above: Performed By: #### C MP ####[facility] [address] [address]Dr. Cammy Cleaning Calcium [Mass/Vol] 9.4 mg/dL Normal 8.5-10.1 [facility] Comment on above: Performed By: #### C MP ####[facility] [address] [address]Dr. Cammy Cleaning Chloride [Moles/Vol] 99 mmol/L Normal 98-107 [facility] Comment on above: Performed By: #### C MP ####[facility] [address] [address]Dr. Cammy Cleaning CO2 [Moles/Vol] 37.8 mmol/L Critically high 21.0-32.0 [facility] Comment on above: Performed By: #### C MP ####[facility] [address] [place], [place] [address]Dr. Cammy Cleaning Creatinine [Mass/Vol] 0.85 mg/dL Normal 0.55-1.02 [facility] Comment on above: Performed By: #### C MP ####[facility] [address] [place], [place] [address]Dr. Cammy Cleaning EGFR-AF UKRAINIAN >60 Normal >=60 [facility] Comment on above: Performed By: #### C MP ####[facility] [address] [place], [place] [address]Dr. Cammy Black EGFR-NON AF UKRAINIAN >60 Normal >=60 [facility] Comment on above: Performed By: #### C MP ####[facility] [address] [place], [place] [address]Dr. Cammy Black Globulin (S) [Mass/Vol] 3.6 g/dL Normal [facility] Comment on above: Performed By: #### C MP ####[facility] Qtkyrd[address] [place], [place] [address]Dr. Cammy Black Glucose [Mass/Vol] 139 mg/dL Critically high 74-106 [facility] Comment on above: Performed By: #### C MP ####[facility] X[address] [place], [place] [address]Dr. Monicaterri Black Potassium [Moles/Vol] 3.7 mmol/L Normal 3.5-5.1 [facility] Comment on above: Performed By: #### C MP ####[facility] [address] [address]Dr. Cammy Cleaning Protein [Mass/Vol] 6.6 g/dL Normal 6.4-8.2 [facility] Comment on above: Performed By: #### C MP ####[facility] [address] [address]DrNoreen Cleaning Sodium [Moles/Vol] 140 mmol/L Normal 136-145 [facility] Comment on above: Performed By: #### C MP ####[facility] [address] [address]Dr. Cammy Cleaning Urea nitrogen [Mass/Vol] 14.0 mg/dL Normal 7.0-18.0 [facility] Comment on above: Performed By: #### C MP ####[facility] [address] [place], [place] [address]DrNoreen Cleaning Urea nitrogen/Creatinine [Mass ratio] 16.5 mg/mg Normal [facility] Comment on above: Performed By: #### C MP ####[facility] [address] [place], [place] [address]Dr. Cammy Cleaning BNPon 06-07-2022 Natriuretic peptide B (Bld) [Mass/Vol] 117.0 pg/mL Normal <=900.0 [facility] Comment on above: Performed By: #### C BC #### [facility] [address] [place] [address] Dr. Cammy Cleaning CBC AUTO DIFFon 06-07-2022 BASO # 0.1 103/ul Normal 0.0-0.1 [facility] Comment on above: Performed By: #### C BC #### [facility] [address] [place] [address] Dr. Cammy Cleaning Basophils/100 WBC (Bld) 0.6 % Normal 0.2-2.0 [facility] Comment on above: Performed By: #### C BC #### [facility] [address] [address] [address] Cammy Cleaning EO # 0.6 103/ul Normal 0.0-0.7 [facility] Comment on above: Performed By: #### C BC #### [facility] [address] [place] [address] Dr. Cammy Cleaning Eosinophils/100 WBC (Bld) 5.8 % Normal 0.9-7.0 [facility] Comment on above: Performed By: #### C BC #### [facility] [address] [place] [address] Dr. Cammy Cleaning Erythrocyte distribution width (RBC) [Ratio] 14.6 % Normal 11.0-15.0 [facility] Comment on above: Performed By: #### C BC #### [facility] [address] [place] [address] Dr. Cammy Cleaning Hematocrit (Bld) [Volume fraction] 45.8 % Normal 36.0-48.0 [facility] Comment on above: Performed By: #### C BC #### [facility] [address] [place] [address] Dr. Cammy Cleaning Hemoglobin (Bld) [Mass/Vol] 14.4 g/dL Normal 12.0-16.0 [facility] Comment on above: Performed By: #### C BC #### [facility] [address] [place] [address] Dr. Cammy Cleaning IG # 0.18 10e3/ul Critically high 0.00-0.03 [facility] Comment on above: Performed By: #### C BC #### [facility] [address] [place] [address] Dr. Cammy Cleaning IG % 1.7 % Critically high 0.0-0.5 [facility] Comment on above: Performed By: #### C BC #### [facility] [address] [place] [address] Dr. Cammy Cleaning LYMPH # 1.8 103/ul Normal 1.2-3.8 [facility] Comment on above: Performed By: #### C BC #### [facility] [address] [place] [address] Dr. Cammy Cleaning Lymphocytes/100 WBC (Bld) 16.1 % Critically low 20.5-60.0 [facility] Comment on above: Performed By: #### C BC #### [facility] [address] [place] [address] Dr. Cammy Cleaning MANUAL DIFF REQ NO Normal [facility] Comment on above: Performed By: #### C BC #### [facility] [address] [place] [address] Dr. Cammy Cleaning MCH (RBC) [Entitic mass] 27.7 pg Normal 26.7-34.0 [facility] Comment on above: Performed By: #### C BC #### [facility] [address] [place] [address] Dr. Cammy Cleaning MCHC (RBC) [Mass/Vol] 31.4 g/dL Normal 29.9-35.2 [facility] Comment on above: Performed By: #### C BC #### [facility] [address] [place] [address] Dr. Cammy Cleaning MCV (RBC) [Entitic vol] 88.1 fL Normal 81.0-99.0 [facility] Comment on above: Performed By: #### C BC #### [facility] [address] [place] [address] Dr. Cammy Cleaning MONO # 0.9 103/ul Critically high 0.3-0.8 [facility] Comment on above: Performed By: #### C BC #### [facility] [address] [place] [address] Dr. Cammy Cleaning Monocytes/100 WBC (Bld) 8.2 % Normal 1.7-12.0 [facility] Comment on above: Performed By: #### C BC #### [facility] [address] [place] [address] Dr. Cammy Cleaning NEUT # 7.3 103/ul Critically high 1.4-6.5 [facility] Comment on above: Performed By: #### C BC #### [facility] [address] [place] [address] Dr. Cammy Cleaning Neutrophils/100 WBC (Bld) 67.6 % Normal 43.0-75.0 [facility] Comment on above: Performed By: #### C BC #### [facility] [address] [place] [address] Dr. Cammy Cleaning Platelet mean volume (Bld) [Entitic vol] 8.8 fL Critically low 9.5-13.5 [facility] Comment on above: Performed By: #### C BC #### [facility] [address] [place] [address] Dr. Cammy Cleaning PLT 169 103/ul Normal 150-450 [facility] Comment on above: Performed By: #### C BC #### [facility] [address] [place] [address] Dr. Cammy Cleaning RBC 5.20 106/ul Normal 4.20-5.40 [facility] Comment on above: Performed By: #### C BC #### [facility] [address] [place] [address] Dr. Cammy Cleaning WBC 10.9 103/ul Normal 4.0-11.0 [facility] Comment on above: Performed By: #### C BC #### [facility] [address] [place] [address] Dr. Cammy Cleaning ECHOCARDIO M/2D COMPLETEon 0 06-07-2022 ECHOCARDIO M/2D COMPLETE Patient: SANNA CORRALES Exam Date: 06/07/2022 : 1960 Gender:F Ordering : DR. WILLEM HIDALGO . Admission #: [id number] Family : OMID MARTINS . Order #: [id number] CLICK HERE TO VIEW EXAM ECHOCARDIOGRAM REPORT [...] Arellano M.D. on 06/09/2022 at 10:48 Normal [facility] FREE T4on 06-07-2022 Free T4 [Mass/Vol] 1.21 ng/dL Normal 0.76-1.46 [facility] Comment on above: Performed By: #### C BC #### [facility] [address] [place] [address] Dr. Cammy Cleaning GLYCOHEMOGLOBIN A1Con 2022 ADA RECOMMENDATION SEE BELOW Normal [facility] Comment on above: Result Comment: ADA RECOMMENDED LIMIT 4.0 - 6.0 ADA THERAPEUTIC TARGET < 7.0 ACTION SUGGESTED > 7.0 Performed By: #### P OCGLUC #### [facility] [address] [place] [address] Dr. Cammy Cleaning Glucose [Mass/Vol] 171 mg/dL Normal [facility] Comment on above: Performed By: #### P OCGLUC #### [facility] [address] [address] [address] Cammy Cleaning HbA1c (Bld) [Mass fraction] 7.6 % Critically high 4.5-6.2 [facility] Comment on above: Performed By: #### P OCGLUC #### [facility] [address] [place] [address] Dr. Cammy Cleaning POINT OF CARE GLUCOSEon 05-29 Glucose [Mass/Vol] 141 mg/dL Critically high 74-106 [facility] Comment on above: Performed By: #### C BC #### [facility] [address] [address] [address] Cammy Cleaning Glucose [Mass/Vol] 161 mg/dL Critically high 74-106 [facility] Comment on above: Performed By: #### P OCGLUC ####[facility] [address] [place], [place] [address]UjDr. Cammy Cleaning Glucose [Mass/Vol] 148 mg/dL Critically high 74-106 [facility] Comment on above: Performed By: #### P OCGLUC ####[facility] [address] [id number]. Cammy Cleaning PROF 14(COMP METB)on 023 Albumin [Mass/Vol] 2.7 g/dL Critically low 3.4-5.0 [facility] [place] Comment on above: Performed By: #### C MP #### [facility] [address] [address] [address] Cammy Cleaning Albumin/Globulin [Mass ratio] 0.8 {ratio} Normal [facility] Comment on above: Performed By: #### C MP #### [facility] [address] [address] [address] Cammy Cleaning ALP [Catalytic activity/Vol] 85 U/L Normal 46-116 [facility] Comment on above: Performed By: #### C MP #### [facility] [address] [address] [address] Cammy Cleaning ALT [Catalytic activity/Vol] 15 U/L Normal 14-59 [facility] Comment on above: Performed By: #### C MP #### [facility] [address] [address] [address] Cammy Cleaning Anion gap [Moles/Vol] 8.3 mmol/L Normal [facility] Comment on above: Performed By: #### C MP #### [facility] [address] [address] [address] Cammy Cleaning AST [Catalytic activity/Vol] 17 U/L Normal 15-37 [facility] Comment on above: Performed By: #### C MP #### [facility] [address] [address] [address] Cammy Cleaning Bilirubin [Mass/Vol] 0.6 mg/dL Normal 0.2-1.0 [facility] Comment on above: Performed By: #### C MP #### [facility] [address] [address] [address] Cammy Cleaning Calcium [Mass/Vol] 8.9 mg/dL Normal 8.5-10.1 [facility] Comment on above: Performed By: #### C MP #### [facility] [address] [address] [address] Cammy Cleaning Chloride [Moles/Vol] 102 mmol/L Normal 98-107 [facility] Comment on above: Performed By: #### C MP #### [facility] [address] [place] [address] Dr. Cammy Cleaning CO2 [Moles/Vol] 34.6 mmol/L Critically high 21.0-32.0 [facility] Comment on above: Performed By: #### C MP #### [facility] [address] [place] [address] Dr. Cammy Cleaning Creatinine [Mass/Vol] 0.80 mg/dL Normal 0.55-1.02 [facility] Comment on above: Performed By: #### C MP #### [facility] [address] [place] [address] Dr. Cammy Cleaning EGFR-AF UKRAINIAN >60 Normal >=60 [facility] Comment on above: Performed By: #### C MP #### [facility] [address] [place] [address] Dr. Cammy Cleaning EGFR-NON AF UKRAINIAN >60 Normal >=60 [facility] Comment on above: Performed By: #### C MP #### [facility] [address] [place] [address] Dr. Cammy Cleaning Globulin (S) [Mass/Vol] 3.2 g/dL Normal [facility] Comment on above: Performed By: #### C MP #### [facility] [address] [place] [address] Dr. Cammy Cleaning Glucose [Mass/Vol] 128 mg/dL Critically high 74-106 [facility] Comment on above: Performed By: #### C MP #### [facility] [address] [address] [address] Cammy Cleaning Potassium [Moles/Vol] 3.9 mmol/L Normal 3.5-5.1 [facility] Comment on above: Performed By: #### C MP #### [facility] [address] [address] [address] Cammy Cleaning Protein [Mass/Vol] 5.9 g/dL Critically low 6.4-8.2 Th [facility] [place] Comment on above: Performed By: #### C MP #### [facility] [address] [address] [address] Cammy Cleaning Sodium [Moles/Vol] 141 mmol/L Normal 136-145 [facility] Comment on above: Performed By: #### C MP #### [facility] [address] [address] [address] Cammy Cleaning Urea nitrogen [Mass/Vol] 11.0 mg/dL Normal 7.0-18.0 [facility] Comment on above: Performed By: #### C MP #### [facility] [address] [address] [address] Cammy Cleaning Urea nitrogen/Creatinine [Mass ratio] 13.8 mg/mg Normal [facility] Comment on above: Performed By: #### C MP #### [facility] [address] [address] [address] Cammy Cleaning TSHon 06-07-2022 TSH 2.839 uIU/mL Normal 0.358-3.740 [facility] Comment on above: Performed By: #### T SH ####[facility] [address] [address]Dr. Cammy Cleaning ACETAMINOPHENon 06-06-2022 Acetaminophen [Mass/Vol] ug/mL Normal 10.0-30.0 [facility] Comment on above: Performed By: #### A CET, CARLOS, ETH ####[facility] [address] [address]Dr. Cammy Cleaning BLOOD GASES BTYon 06-06-2022 02 MODE NASAL CANNULA Normal [facility] Comment on above: Performed By: #### A BG ####[facility] [address] [address]Dr. Cammy Cleaning ALLENS TEST Positive Normal [facility] Comment on above: Performed By: #### A BG ####[facility] [address] [place], [place] [address]Dr. Cammy Cleaning Base excess Calc (Bld) [Moles/Vol] 9.4 mmol/L Critically high -2.0-2.0 [facility] Comment on above: Performed By: #### A BG ####[facility] [address] [place], [place] [address]Dr. Cammy Cleaning BIPAP PRESSURE Normal [facility] Comment on above: Performed By: #### A BG ####[facility] [address] [place], [place] [address]Dr. Cammy Cleaning CPAP [facility] Comment on above: Performed By: #### A BG ####[facility] [address] [place], [place] [address]Dr. Cammy Cleaning FIO2 Normal [facility] Comment on above: Performed By: #### A BG ####[facility] [address] [place], [place] [address]Dr. Cammy Cleaning HCO3 (Bld) [Moles/Vol] 35.1 mmol/L Critically high 22.0-26.0 [facility] Comment on above: Performed By: #### A BG ####[facility] [address] [place], [place] [address]Dr. Cammy Cleaning LPM 2 Normal [facility] Comment on above: Performed By: #### A BG ####[facility] [address] [place], [place] [address]Dr. Cammy Cleaning MINUTE VOLUME Normal [facility] Comment on above: Performed By: #### A BG ####[facility] [address] [place], [place] [address]Dr. Cammy Cleaning Oxygen (Bld) [Partial pressure] 59.8 mm[Hg] Critically low 80.0-100.0 [facility] Comment on above: Performed By: #### A BG ####[facility] [address] [address]Dr. Cammy Cleaning Oxygen saturation in Blood 92.4 % Critically low 95.0-100.0 [facility] Comment on above: Performed By: #### A BG ####[facility] [address] [place], [place] [address]Dr. Cammy Cleaning PCO2 63.7 mmHg Critically high 35.0-45.0 [facility] Comment on above: Performed By: #### A BG ####[facility] [address] [place], [place] [address]Dr. Cammy Cleaning PEEP [facility] Comment on above: Performed By: #### A BG ####[facility] [address] [place], [place] [address]Dr. Cammy Cleaning pH (Bld) 7.349 [pH] Critically low 7.350-7.450 [facility] Comment on above: Performed By: #### A BG ####[facility] [address] [place], [place] [address]Dr. Cammy Cleaning PIP [facility] Comment on above: Performed By: #### A BG ####[facility] [address] [place], [place] [address]Dr. Cammy Cleaning PS [facility] Comment on above: Performed By: #### A BG ####[facility] [address] [place], [place] [address]Dr. Cammy Cleaning PUNCTURE SITE LB Normal [facility] Comment on above: Performed By: #### A BG ####[facility] [address] [place], [place] [address]Dr. Cammy Cleaning RATE [facility] Comment on above: Performed By: #### A BG ####[facility] [address] [place], [place] [address]Dr. Cammy Cleaning VENT MODE [facility] Comment on above: Performed By: #### A BG ####[facility] [address] [id number]. Cammy Cleaning VT Normal [facility] Comment on above: Performed By: #### A BG ####[facility] [address] [id number]. Cammy Cleaning BNPon 06-06-2022 Natriuretic peptide B (Bld) [Mass/Vol] 81.0 pg/mL Normal <=900.0 [facility] Comment on above: Performed By: #### C BC #### [facility] [address] [address] [address] Cammy Cleaning CARDIAC PILLO 3-6on 3 CK [Catalytic activity/Vol] 205 U/L Critically high 26-192 [facility] Comment on above: Performed By: #### C MREP #### [facility] [address] [place] [address] Dr. Cammy Cleaning CK.MB [Mass/Vol] 0.77 ng/mL Normal <=3.60 [facility] Comment on above: Performed By: #### C MREP #### [facility] [address] [place] [address] Dr. Cammy Cleaning HSTROP 7.5 pg/mL Normal 4.0-51.3 [facility] Comment on above: Result Comment: CUT- OFF POINTS HAVE BEEN ESTABLISHED BASED ON THE FOURTH UNIVERSAL DEFINITIONS OF MYOCARDIAL INFARCTION. THE UPPER REFERENCE LIMIT (URL) OF TROPONIN, DEFINED THE 99TH PERCENTILE OF cTnI DISTRIBUTION IN A REFERENCE POPULATION, HAS BEEN CONFIRMED THE DECISION THRESHOLD FOR NE DIAGNOSIS. Performed By: #### C MREP #### [facility] [address] [address] [address] Cammy Cleaning CK [Catalytic activity/Vol] 220 U/L Critically high 26-192 [facility] Comment on above: Performed By: #### C BC #### [facility] [address] [address] [address] Cammy Cleaning CK.MB [Mass/Vol] 0.86 ng/mL Normal <=3.60 [facility] Comment on above: Performed By: #### C BC #### [facility] [address] [place] [address] Dr. Cammy Cleaning HSTROP 8.7 pg/mL Normal 4.0-51.3 [facility] Comment on above: Result Comment: CUT- OFF POINTS HAVE BEEN ESTABLISHED BASED ON THE FOURTH UNIVERSAL DEFINITIONS OF MYOCARDIAL INFARCTION. THE UPPER REFERENCE LIMIT (URL) OF TROPONIN, DEFINED THE 99TH PERCENTILE OF cTnI DISTRIBUTION IN A REFERENCE POPULATION, HAS BEEN CONFIRMED THE DECISION THRESHOLD FOR NE DIAGNOSIS. Performed By: #### C BC #### [facility] [address] [place] [address] Dr. Cammy Cleaning CBC AUTO DIFFon 06-06-2022 BASO # 0.1 103/ul Normal 0.0-0.1 [facility] Comment on above: Performed By: #### C BC #### [facility] [address] [place] [address] Dr. Cammy Cleaning Basophils/100 WBC (Bld) 0.7 % Normal 0.2-2.0 [facility] Comment on above: Performed By: #### C BC #### [facility] [address] [place] [address] Dr. Cammy Cleaning EO # 0.6 103/ul Normal 0.0-0.7 [facility] Comment on above: Performed By: #### C BC #### [facility] [address] [place] [address] Dr. Cammy Cleaning Eosinophils/100 WBC (Bld) 5.4 % Normal 0.9-7.0 [facility] Comment on above: Performed By: #### C BC #### [facility] [address] [place] [address] Dr. Camym Cleaning Erythrocyte distribution width (RBC) [Ratio] 14.6 % Normal 11.0-15.0 [facility] Comment on above: Performed By: #### C BC #### [facility] [address] [place] [address] Dr. Cammy Cleaning Hematocrit (Bld) [Volume fraction] 47.2 % Normal 36.0-48.0 [facility] Comment on above: Performed By: #### C BC #### [facility] [address] [place] [address] Dr. Cammy Cleaning Hemoglobin (Bld) [Mass/Vol] 15.4 g/dL Normal 12.0-16.0 [facility] Comment on above: Performed By: #### C BC #### [facility] [address] [place] [address] Dr. Cammy Cleaning IG # 0.19 10e3/ul Critically high 0.00-0.03 [facility] Comment on above: Performed By: #### C BC #### [facility] [address] [place] [address] Dr. Cammy Cleaning IG % 1.7 % Critically high 0.0-0.5 [facility] Comment on above: Performed By: #### C BC #### [facility] [address] [place] [address] Dr. Cammy Cleaning LYMPH # 1.8 103/ul Normal 1.2-3.8 [facility] Comment on above: Performed By: #### C BC #### [facility] [address] [place] [address] Dr. Cammy Cleaning Lymphocytes/100 WBC (Bld) 16.0 % Critically low 20.5-60.0 [facility] Comment on above: Performed By: #### C BC #### [facility] [address] [place] [address] Dr. Cammy Cleaning MANUAL DIFF REQ NO Normal [facility] Comment on above: Performed By: #### C BC #### [facility] [address] [place] [address] Dr. Cammy Cleaning MCH (RBC) [Entitic mass] 27.7 pg Normal 26.7-34.0 [facility] Comment on above: Performed By: #### C BC #### [facility] [address] [place] [address] Dr. Cammy Cleaning MCHC (RBC) [Mass/Vol] 32.6 g/dL Normal 29.9-35.2 [facility] Comment on above: Performed By: #### C BC #### [facility] [address] [address] [address] Cammy Cleaning MCV (RBC) [Entitic vol] 85.0 fL Normal 81.0-99.0 [facility] Comment on above: Performed By: #### C BC #### [facility] [address] [address] [address] Cammy Cleaning MONO # 0.8 103/ul Normal 0.3-0.8 [facility] Comment on above: Performed By: #### C BC #### [facility] [address] [address] [address] Cammy Cleaning Monocytes/100 WBC (Bld) 6.8 % Normal 1.7-12.0 [facility] Comment on above: Performed By: #### C BC #### [facility] [address] [place] [address] Dr. Cammy Cleaning NEUT # 7.8 103/ul Critically high 1.4-6.5 [facility] Comment on above: Performed By: #### C BC #### [facility] [address] [place] [address] Dr. Cammy Cleaning Neutrophils/100 WBC (Bld) 69.4 % Normal 43.0-75.0 [facility] Comment on above: Performed By: #### C BC #### [facility] [address] [place] [address] Dr. Cammy Cleaning Platelet mean volume (Bld) [Entitic vol] 9.0 fL Critically low 9.5-13.5 [facility] Comment on above: Performed By: #### C BC #### [facility] [address] [place] [address] Dr. Cammy Cleaning PLT 162 103/ul Normal 150-450 [facility] Comment on above: Performed By: #### C BC #### [facility] [address] [place] [address] Dr. Cammy Cleaning RBC 5.55 106/ul Critically high 4.20-5.40 [facility] Comment on above: Performed By: #### C BC #### [facility] [address] [place], [place] [address] Dr. Cammy Cleaning WBC 11.3 103/ul Critically high 4.0-11.0 [facility] Comment on above: Performed By: #### C #### [facility] [address] [place], [place] [address] ABD/PELV W CONon [...] Christo SARAVIA Date: 2022-06-06 02:29 Normal [facility] CT CSPINE WO CONon 3 CT [...] WILL HOGAN Date: 2022-06-06 02:09 Normal [facility] CT HEAD WO CONon 06-06-2022 CT [...] Christo SARAVIA Date: 2022-06-06 02:07 Normal [facility] CT LSPINE WO CONon 3 CT [...] by: Christo SARAVIA Date: 2022-06-06 02:29 Normal [facility] CTA ABD/PELVIS WO W CONon [...] ANISH JACKSON Date: 2022-06-06 04:15 Normal [facility]on SARS-CoV-2 (COVID-19) RNA JOSE L+probe Ql (Unsp spec) Not detected Normal NOT DETECTED [facility] Comment on above: Result Comment: When [...] for this test is supported by the [place] of [employer] and Human Service's declaration that [...] used). Performed By: #### C BC #### [facility] [address] [place] [address] Dr. Cammy Cleaning DRUG SCREEN RAPID (URINE)on 06-06-2022 AMP Negative Normal NEGATIVE [facility] Comment on above: Performed By: #### D HANNY BARRIENTOS #### [facility] [address] [place] [address] Dr. Cammy Cleaning BAR Negative Normal NEGATIVE [facility] Comment on above: Performed By: #### D HANNY BARRIENTOS #### [facility] [address] [address] [address] Cammy Cleaning BUP Negative Normal NEGATIVE [facility] Comment on above: Performed By: #### D RUGRPD, ERUR #### [facility] [address] [place] [address] Dr. Cammy Cleaning BZO Negative Normal NEGATIVE [facility] Comment on above: Performed By: #### D RUGRPD, ERUR #### [facility] [address] [place] [address] Dr. Cammy Cleaning JEM Negative Normal NEGATIVE [facility] Comment on above: Performed By: #### D RUGRPD, ERUR #### [facility] [address] [place] [address] Dr. Cammy Cleaning CUT-OFFS SEE BELOW Normal [facility] Comment on above: Result Comment: AMP [...] Performed By: #### D RUGRPD, ERUR #### [facility] [address] [place] [address] Dr. Cammy Cleaning DRUG CUT HEADER DRUG CLASS TEST SYSTEM CUT-OFF CONCENTRATIONS ARE FOLLOWS: Normal [facility] Comment on above: Performed By: #### D RUGRPD, ERUR #### [facility] [address] [place] [address] Dr. Cammy Cleaning mAMP Negative Normal NEGATIVE [facility] Comment on above: Performed By: #### D RUGRPD, ERUR #### [facility] [address] [place] [address] Dr. Cammy Cleaning MTD Negative Normal NEGATIVE [facility] Comment on above: Performed By: #### D BERNARDRPD, ERUR #### [facility] [address] [address] [address] Cammy Cleaning OPI Positive Abnormal NEGATIVE [facility] Comment on above: Performed By: #### D RUGRPD, ERUR #### [facility] [address] [address] [address] Cammy Cleaning OXY Negative Normal NEGATIVE [facility] Comment on above: Performed By: #### D RUGRPD, ERUR #### [facility] [address] [address] [address] Cammy Cleaning PCP Negative Normal NEGATIVE [facility] Comment on above: Performed By: #### D FLOYD, ERUR #### [facility] [address] [place] [address] Dr. Cammy Cleaning PPX Negative Normal NEGATIVE [facility] Comment on above: Performed By: #### D FLOYD, ERUR #### [facility] [address] [place] [address] Dr. Cammy Cleaning TCA Negative Normal NEGATIVE [facility] Comment on above: Performed By: #### D FLOYD, ERUR #### [facility] [address] [place] [address] Dr. Cammy Cleaning THC Negative Normal NEGATIVE [facility] Comment on above: Performed By: #### D PATRICIAD, ERUR #### [facility] [address] [place] [address] Dr. Cammy Cleaning ER URINE PROFILEon 3 Bilirubin Ql (U) Negative Normal NEGATIVE [facility] Comment on above: Performed By: #### D BERNARDRPD, ERUR #### [facility] [address] [place] [address] Dr. Cammy Cleaning Clarity (U) CLEAR Normal CLEAR [facility] Comment on above: Performed By: #### D BERNARDRPD, ERUR #### [facility] [address] [place] [address] Dr. Cammy Cleaning Color (U) YELLOW Normal YELLOW [facility] Comment on above: Performed By: #### D PATRICIAD, ERUR #### [facility] [address] [address] [address] Cammy VELIZ A micrscopic examination will be performed if indicated. Normal [facility] Comment on above: Performed By: #### D FLOYD, ERUR #### [facility] [address] [address] [address] Cammy Cleaning Glucose Ql (U) >1000 Abnormal NEGATIVE [facility] Comment on above: Performed By: #### D FLOYD, ERUR #### [facility] [address] [place] [address] Dr. Cammy Cleaning Hemoglobin Ql (U) Negative Normal NEGATIVE [facility] Comment on above: Performed By: #### D FLOYD, ERUR #### [facility] [address] [place] [address] Dr. Cammy Cleaning Ketones Ql (U) Negative Normal NEGATIVE [facility] Comment on above: Performed By: #### Mayda BARRIENTOS, ERUR #### [facility] [address] [place] [address] Dr. Cammy Cleaning LEUKOCYTES Negative Normal NEGATIVE [facility] Comment on above: Performed By: #### Mayda BARRIENTOS, ERUR #### [facility] [address] [place] [address] Dr. Cammy Cleaning Nitrite Ql (U) Negative Normal NEGATIVE [facility] Comment on above: Performed By: #### Mayda BARRIENTOS, ERUR #### [facility] [address] [address] [address] Cammy Cleaning pH (U) 5.0 [pH] Normal 5-9 [facility] Comment on above: Performed By: #### Mayda BARRIENTOS, ERUR #### [facility] [address] [address] [address] Cammy Cleaning SPEC GRAVITY 1.010 Normal 1.005-<=1.025 [facility] Comment on above: Performed By: #### Mayda BARRIENTOS, ERUR #### [facility] [address] [address] [address] Cammy Cleaning UA PROTEIN TRACE Normal NEGATIVE/ TRACE [facility] Comment on above: Performed By: #### D FLOYD, ERUR #### [facility] [address] [address] [address] Cammy Cleaning UR MICRO IND NOT INDICATED Normal [facility] Comment on above: Performed By: #### D FLOYD, ERUR #### [facility] [address] [address] [address] Cammy Cleaning Urobilinogen Qn (U) 0.2 {Flroy'U}/dL Normal 0.2 - 1. 0 [facility] Comment on above: Performed By: #### D FLOYD, ERUR #### [facility] [address] [address] [address] Cammy Cleaning ETHANOL (BLD ALC)on 06-06-19 23 ALC NOTE NOTE: 80 mg/dl is th e legal limit for a blood alcohol level Normal [facility] Comment on above: Performed By: #### A CARLOS STEVE, KAILEY ####[facility] [address] [address]Dr. Cammy Cleaning Ethanol [Mass/Vol] mg/dL Normal [facility] Comment on above: Performed By: #### A CARLOS STEVE, KAILEY ####[facility] [address] [address]Dr. Cammy Cleaning POINT OF CARE GLUCOSEon Glucose [Mass/Vol] 180 mg/dL Critically high 74-106 [facility] Comment on above: Performed By: #### P OCGLUC #### [facility] [address] [place] [address] Dr. Cammy Cleaning Glucose [Mass/Vol] 133 mg/dL Critically high 74-106 [facility] Comment on above: Performed By: #### C BC #### [facility] [address] [address] [address] Cammy Cleaning Glucose [Mass/Vol] 201 mg/dL Critically high 74-106 [facility] Comment on above: Performed By: #### C BC #### [facility] [address] [place] [address] Dr. Cammy Cleaning Glucose [Mass/Vol] 112 mg/dL Critically high 74-106 [facility] Comment on above: Performed By: #### P OCGLUC #### [facility] [address] [place] [address] Dr. Cammy Cleaning PROF CHEM 8 (BAS METB)on Anion gap [Moles/Vol] 6.7 mmol/L Normal [facility] Comment on above: Performed By: #### C BC #### [facility] [address] [place] [address] Dr. Cammy Cleaning Calcium [Mass/Vol] 8.7 mg/dL Normal 8.5-10.1 [facility] Comment on above: Performed By: #### C BC #### [facility] [address] [place] [address] Dr. Cammy Cleaning Chloride [Moles/Vol] 102 mmol/L Normal 98-107 [facility] Comment on above: Performed By: #### C BC #### [facility] [address] [place] [address] Dr. Cammy Cleaning CO2 [Moles/Vol] 35.6 mmol/L Critically high 21.0-32.0 [facility] Comment on above: Performed By: #### C BC #### [facility] [address] [place] [address] Dr. Cammy Cleaning Creatinine [Mass/Vol] 0.93 mg/dL Normal 0.55-1.02 [facility] Comment on above: Performed By: #### C BC #### [facility] [address] [place] [address] Dr. Cammy Cleaning EGFR-AF UKRAINIAN >60 Normal >=60 [facility] Comment on above: Performed By: #### C BC #### [facility] [address] [place] [address] Dr. Cammy Cleaning EGFR-NON AF UKRAINIAN >60 Normal >=60 [facility] Comment on above: Performed By: #### C BC #### [facility] [address] [place] [address] Dr. Cammy Cleaning Glucose [Mass/Vol] 169 mg/dL Critically high 74-106 [facility] Comment on above: Performed By: #### C BC #### [facility] [address] [address] [address] Cammy Cleaning Potassium [Moles/Vol] 4.3 mmol/L Normal 3.5-5.1 [facility] Comment on above: Performed By: #### C BC #### [facility] [address] [address] [address] Cammy Cleaning Sodium [Moles/Vol] 140 mmol/L Normal 136-145 [facility] Comment on above: Performed By: #### C BC #### [facility] [address] [address] [address] Cammy Cleaning Urea nitrogen [Mass/Vol] 15.0 mg/dL Normal 7.0-18.0 [facility] Comment on above: Performed By: #### C BC #### [facility] [address] [address] [address] Cammy Cleaning Urea nitrogen/Creatinine [Mass ratio] 16.1 mg/mg Normal [facility] Comment on above: Performed By: #### C BC #### [facility] [id number] Cammy Cleaning SALICYLATEon 06-06-2022 SALICYLATE 1.6 mg/dL Normal <=19.9 [facility] Comment on above: Performed By: #### A CARLOS STEVE, KAILEY ####[facility] [address] [place], [place] [address]WgDr. Cammy Cleaning XR CHEST 1 Von 06-06-2022 [...] by: CELESTE LUNA Date: 2022-06-06 02:58 Normal [facility] MRI KNEE LT WO CONon [...] by: BURT FIGUEROA Date: 2022-05-10 15:59 Normal [facility] Progress Noteson 01-25-2022 Transcription Specialist Authentication Interface Message Text EMERGENCY TRIAGE, TREAT AND TRANSPORT (ET3) DOCUMENTATION OF TELEHEALTH VISIT Date / Time: 01/14/2022729 Name: Sanna Corrales : 1960 SSN: (Not on file) EMS Agency: [facility] [] Verbal consent obtained [] Implied consent - patient with potential emergency medical condition requiring assessment of capacity to refuse treatment and/or transport VITAL SIGNS: see flowsheet documentation Reason for Telehealth Visit: Chief Complaint Patient presents with Fall History of Present Ilness: 61 yo female who [facility] EMS called for lift assist. No [...] Completed by: Tyler Ingram DO Normal [facility] XR CSPINE 2_3 VIEWSon 2021 XR [...] CHRISTEN BAKER Date: 2022-01-04 19:14 Normal [facility] CT SINUSES WO CONon 11-23-19 22 [...] by: ANISH ROJO Date: 2021-11-22 13:29 Normal [facility] Vital Signs Date Time Vital Sign Value Performing Clinician Facility 07-30-2024 12:42-0500 Body mass index (BMI) [Ratio] 53.32 kg/m2 Yarelis [employer] Work Phone: [facility] 07-30-2024 12:42-0500 Body weight 123.83 kg Yarelis Daily[employer] Work Phone: [facility] 07-30-2024 12:42-0500 Diastolic blood pressure 76 mm[Hg] Yarelis [employer] Work Phone: [facility] 07-30-2024 12:42-0500 Heart rate 81 /min Yarelis [employer] Work Phone: [facility] 07-30-2024 12:42-0500 SaO2% (BldA) [Mass fraction] 81 % Yarelis [employer] Work Phone: [facility] 07-30-2024 12:42-0500 Systolic blood pressure 138 mm[Hg] Yarelis [employer] Work Phone: [facility] 05-15-2024 13:16-0500 Body mass index (BMI) [Ratio] 53.51 kg/m2 Yarelis [employer] Work Phone: [facility] 05-15-2024 13:16-0500 Body weight 124.29 kg Yarelis [employer] Work Phone: [facility] 05-15-2024 13:16-0500 Diastolic blood pressure 84 mm[Hg] Yarelis [employer] Work Phone: [facility] 05-15-2024 13:16-0500 Heart rate 72 /min Yarelis [employer] Work Phone: [facility] 05-15-2024 13:16-0500 SaO2% (BldA) [Mass fraction] 89 % Yarelis [employer] Work Phone: [facility] 05-15-2024 13:16-0500 Systolic blood pressure 122 mm[Hg] Yarelis Dialy-Nossek [employer] Work Phone: [facility] 04-17-2024 13:44-0500 Body mass index (BMI) [Ratio] 53.12 kg/m2 Yarelis [employer] Work Phone: [facility] 04-17-2024 13:44-0500 Body weight 123.38 kg Yarelis Daily[employer] Work Phone: [facility] 04-17-2024 13:44-0500 Diastolic blood pressure 72 mm[Hg] Yarelis [employer] Work Phone: [facility] 04-17-2024 13:44-0500 Heart rate 71 /min Yarelis [employer] Work Phone: [facility] 04-17-2024 13:44-0500 SaO2% (BldA) [Mass fraction] 91 % Yarelis [employer] Work Phone: [facility] 04-17-2024 13:44-0500 Systolic blood pressure 116 mm[Hg] Yarelis [employer] Work Phone: [facility] 03-27-2024 15:05-0400 Body height 152.4 cm Erin Hemmer PA Work Phone: [facility] 03-27-2024 15:05-0400 Body mass index (BMI) [Ratio] 52.97 kg/m2 Erin Hemmer PA Work Phone: [facility] 03-27-2024 15:05-0400 Body weight 123.02 kg Erin Hemmer PA Work Phone: [facility] 03-27-2024 15:05-0400 Diastolic blood pressure 84 mm[Hg] Erin Hemmer PA Work Phone: [facility] 03-27-2024 15:05-0400 Heart rate 50 /min Erin Hemmer PA Work Phone: [facility] 03-27-2024 15:05-0400 Respiratory rate 18 /min Erin Hemmer PA Work Phone: [facility] 03-27-2024 15:05-0400 SaO2% (BldA) [Mass fraction] 96 % Erin Hemmer PA Work Phone: [facility] 03-27-2024 15:05-0400 Systolic blood pressure 128 mm[Hg] Erin Hemmer PA Work Phone: [facility] 03-14-2024 09:55-0400 Body mass index (BMI) [Ratio] 53.51 kg/m2 Yarelis [employer] Work Phone: [facility] 03-14-2024 09:55-0400 Body weight 124.29 kg Yarelis Daily[employer]ossek [employer] Work Phone: [facility] 03-14-2024 09:55-0400 Diastolic blood pressure 82 mm[Hg] Yarelis [employer] Work Phone: [facility] 03-14-2024 09:55-0400 Heart rate 72 /min Yarelis Daily[employer]k [employer] Work Phone: [facility] 03-14-2024 09:55-0400 SaO2% (BldA) [Mass fraction] 85 % Yarelis Gallardo [employer] Work Phone: [facility] 03-14-2024 09:55-0400 Systolic blood pressure 134 mm[Hg] Yarelis Gallardo [employer] Work Phone: [facility] 02-21-2024 13:02-0400 Body height 152.4 cm Erin Hemmer PA Work Phone: [facility] 02-21-2024 13:02-0400 Body mass index (BMI) [Ratio] 53.67 kg/m2 Erin Hemmer PA Work Phone: [facility] 02-21-2024 13:02-0400 Body temperature 99.3 [degF] Erin Hemmer PA Work Phone: [facility] 02-21-2024 13:02-0400 Body weight 124.65 kg Erin Hemmer PA Work Phone: [facility] 02-21-2024 13:02-0400 Diastolic blood pressure 82 mm[Hg] Erin Hemmer PA Work Phone: [facility] 02-21-2024 13:02-0400 Heart rate 68 /min Erin Hemmer PA Work Phone: [facility] 02-21-2024 13:02-0400 Respiratory rate 16 /min Erin Hemmer PA Work Phone: [facility] 02-21-2024 13:02-0400 SaO2% (BldA) [Mass fraction] 98 % Erin Hemmer PA Work Phone: [facility] 02-21-2024 13:02-0400 Systolic blood pressure 134 mm[Hg] Erin Hemmer PA Work Phone: [facility] 01-25-2022 11:40-0400 Diastolic blood pressure 82 mm[Hg] [facility] 01-25-2022 11:40-0400 Heart rate 76 /min [facility] 01-25-2022 11:40-0400 Respiratory rate 20 /min [facility] 01-25-2022 11:40-0400 SaO2% (BldA) [Mass fraction] 94 % [facility] Comment on above: ra 01-25-2022 11:40-0400 Systolic blood pressure 123 mm[Hg] [facility] Encounters Encounter Date Encounter Type Care Provider Facility Start: 07-31-2024 End: 07-31-2024 ambulatory BRAEDEN CINTRONJulia Not Available Start: 07-30-2024 End: 07-30-2024 Bamboo flowsheet Yarelis Yared [employer] Work Phone: [facility] Start: 07-30-2024 End: 07-30-2024 Bamboo flowsheet Yarelis Yared [employer] Work Phone: [facility] Start: 07-30-2024 End: 07-30-2024 Office outpatient visit 25 minutes Yarelis Yared [employer] Work Phone: [facility] Comment on above: Cervical spondylosis ; Bipolar affective disorder, currently depressed, moderate (CMS/HCC); Mixed bipolar affective disorder, moderate (CMS/HCC) Start: 07-30-2024 End: 07-30-2024 ambulatory YARELIS Yared DAILY-NOSSEK Not Available Start: 07-23-2024 End: 07-23-2024 Refill Yarelis Yared [employer] Work Phone: [facility] Comment on above: Mixed bipolar affect nickie disorder, moderate (CMS/HCC); Bipolar affective disorder, currently depressed, moderate (CMS/HCC) Start: 07-22-2024 End: 07-22-2024 ambulatory Divya Alfaro MD Facility:[facility] Start: 05-15-2024 End: 05-15-2024 Bamboo flowsheet Yarelis [employer] Work Phone: [facility] Start: 05-15-2024 End: 05-15-2024 Bamboo flowsheet Yarelis [employer] Work Phone: [facility] Start: 05-15-2024 End: 05-15-2024 Office outpatient visit 40 minutes Yarelis [employer] Work Phone: [facility] Comment on above: Bipolar affective di sorder, currently depressed, moderate (CMS/HCC); Mixed bipolar affective disorder, moderate (CMS/HCC) Start: 05-15-2024 End: 05-15-2024 ambulatory YARELIS Vail [facility] Not Available Start: 05-06-2024 End: 05-06-2024 ambulatory Divya Alfaro MD Facility:[facility] Start: 04-17-2024 End: 04-17-2024 Bamboo flowsheet Yarelis Ambrosio-Nossek BLANKET WASHER-CUFF MATCHER Work Phone: [facility] Start: 04-17-2024 End: 04-17-2024 Bamboo flowsheet Yarelis Centenoor-Nossek BLANKET WASHER-CUFF MATCHER Work Phone: [facility] Start: 04-17-2024 End: 04-17-2024 Office outpatient visit 40 minutes Yarelis Centenoor-Nossek BLANKET WASHER-CUFF MATCHER Work Phone: [facility] Comment on above: JENN (generalized anx iety disorder) (CMS/HCC) Start: 04-17-2024 End: 04-17-2024 ambulatory YARELIS M DAILY-NOSSEK Not Available Start: 04-15-2024 End: 04-15-2024 ambulatory Divya Alfaro MD Facility:[facility] Start: 03-28-2024 End: 03-28-2024 Fiorella Baca DO Work Phone: [facility] Comment on above: Age-related nuclear cataract of both eyes Start: 03-27-2024 End: 03-27-2024 Office outpatient visit 25 minutes Erin KINGSLEY Work Phone: [facility] Comment on above: Type 2 diabetes torsten itus with other specified complication, without long-term current use of insulin (CMS/HCC) (Primary Dx); Limitation of activities due to disability; Chronic sinusitis, unspecified location; Abnormality of gait due to impairment of balance; Lumbar radiculopathy; Chronic diarrhea; History of falling; Bilateral primary osteoarthritis of knee Start: 03-27-2024 End: 03-27-2024 ambulatory ERIN VANG Not Available Start: 03-27-2024 End: 03-27-2024 Bamboo flowsheet Erin Vang PA Work Phone: [facility] Start: 03-27-2024 End: 03-27-2024 Bamboo flowsheet Erin Vang PA Work Phone: [facility] Start: 03-25-2024 End: 03-25-2024 ambulatory Divya Alfaro MD Facility:[facility] Start: 03-14-2024 End: 03-14-2024 Bamboo flowsheet Yarelis Ambrosio-Nossechristo BLANKET WASHER-CUFF MATCHER Work Phone: [facility] Start: 03-14-2024 End: 03-14-2024 Bamboo flowsheet Yarelis Ambrosio-Nossek BLANKET WASHER-CUFF MATCHER Work Phone: [facility] Start: 03-14-2024 End: 03-14-2024 Office outpatient new 60 minutes Yarelis Thackersek BLANKET WASHER-CUFF MATCHER Work Phone: [facility] Comment on above: Mixed bipolar affect nickie disorder, moderate (CMS/HCC); JENN (generalized anxiety disorder) (CMS/HCC) Start: 03-14-2024 End: 03-14-2024 ambulatory YARELIS THACKERSEChristo Not Available Start: 02-21-2024 End: 02-21-2024 Bamboo flowsheet Erin Vang PA Work Phone: [facility] Start: 02-21-2024 End: 02-21-2024 Bamboo flowsheet Erin Vang PA Work Phone: [facility] Start: 02-21-2024 End: 02-21-2024 Office outpatient visit 25 minutes Erin KINGSLEY Work Phone: [facility] Comment on above: Acute non-recurrent maxillary sinusitis (Primary Dx); Bipolar affective disorder, currently depressed, moderate (CMS/HCC); Chronic obstructive pulmonary disease, unspecified COPD type (CMS/HCC); Lumbar radiculopathy; Spinal stenosis, unspecified spinal region; Cervical spondylosis; Estrogen deficiency; Need for vaccination Start: 02-21-2024 End: 02-21-2024 ambulatory ERIN VANG Not Available Start: 01-05-2024 End: 01-05-2024 ambulatory SWATHI BACA Not Available Start: 12-06-2023 End: 12-06-2023 ambulatory ERIN VANG Not Available Start: 11-28-2023 End: 11-28-2023 ambulatory SWATHI BACA Not Available Start: 10-04-2023 End: 10-04-2023 ambulatory TYLER ESTRADA Not Available Start: 09-05-2023 End: 09-05-2023 ambulatory ERIN VANG Not Available Start: 07-05-2023 Chart abstracting Erin solitario PA Work Phone: [facility] Start: 05-09-2023 ambulatory Pratik Ramos acility:[facility] Start: 09-01-2022 ambulatory NARENDRANATH LAKSHMIPATHY . [...] Start: 01-25-2022 End: 02-02-2022 ambulatory UNKNOWN PROVIDER [facility] Start: 01-14-2022 End: 01-14-2022 ambulatory [facility] Emergenc y Triage, Treat and Transport Start: 01-14-2022 End: 01-14-2022 Emergency department patient visit [facility] Emergency Triage, Treat and Transport Comment on above: Arrived Start: 01-04-2022 End: 01-05-[address] JER RIZO Facility:[facility] Start: 11-22-2021 End: 11-23-[address] ERIN VANG Facility:[facility] Procedures Date Procedure Procedure Detail Performing Clinician Start: 03-27-2024 Hemoglobin glycosyla sachin a1c Erin Vang PA Work Phone: Start: 05-17-2023 Mammography Erin solitario PA Work Phone: Start: 11-16-2015 Colonoscopy [...] Medicare Annual Wellness (AWV) [facility] Start: 09-12-2024 End: 09-12-2024 Patient encounter procedure 09/12/2024 11:30 AM EDT Office Visit [facility] [address] [facility] [address] [place] [address] Yarelis Gallardo, BLANKET WASHER-CUFF MATCHER [address] [facility] [address] [place] [address] [facility] Start: 08-08-2024 End: 08-08-2024 Patient encounter procedure 08/08/2024 2:40 PM EDT Office Visit [facility] [address] [place] [address] Tip Morillo, DPM [address] [address] [facility] Start: 07-31-2024 End: 07-31-2024 Social Work 07/31/2024 12:30 PM EST Social Work [facility] [address] [place] [address] Braeden Dunham LPC [facility] Start: 07-30-2024 End: 07-30-2024 Patient encounter procedure [facility] Comment on above: Arrived Start: 07-25-2024 End: 07-25-2024 Patient encounter procedure 07/25/2024 10:10 AM EST Office Visit [facility] [address] [place] [address] Tip Morillo, DPM [address] [address] [facility] Start: 06-27-2024 Hemoglobin A1c measurement Diabetes: Hemoglobin A1C [facility] Start: 06-17-2024 End: 06-17-2024 Patient encounter procedure 06/17/2024 2:00 PM EST Office Visit [facility] [address] [place] [address] Yarelis Gallardo, BLANKET WASHER-CUFF MATCHER [address] [place] [address] [facility] Start: 05-17-2024 Screening for malign ant neoplasm of breast Mammogram [facility] Start: 05-15-2024 End: 05-15-2024 Patient encounter procedure [facility] Comment on above: Arrived Start: 04-17-2024 End: 04-17-2024 Patient encounter procedure [facility] Comment on above: Arrived Start: 04-11-2024 End: 04-11-2024 Professional / ancillary services management 04/11/2024 2:00 PM EST Ancillary Procedure [facility] [address] [place] [address] [facility] Start: 03-27-2024 End: 03-27-2024 Patient encounter procedure 03/27/2024 3:00 PM EDT Office Visit [facility] [address] [facility] [address] [place] [address] Erin Vang PA [address] [facility] [address] [place] [address] Arrived [facility] Comment on above: Arrived Start: 03-27-2024 End: 03-27-2025 Microalbumin/Creatinine panel in random Urine Microalbumin / creatinine, urine ratio Lab Routine Type 2 diabetes mellitus with other specified complication, without long-term current use of insulin ([facility]) Expected: 03/27/2024 (Approximate), Expires: 03/27/2025 [facility] Work Phone: Comment on above: Expected: 03/27/2024 (Approximate), Expires: 03/27/2025 Start: 03-25-2024 End: 03-25-2024 Patient encounter procedure 03/25/2024 1:00 PM EDT Office Visit [facility] [address] [facility] [address] [place] [address] Erin Vang PA [address] [facility] [address] [place] [address] [facility] Start: 03-23-2024 Urine screening for protein Diabetes: Urine Protein Screening [facility] Start: 03-22-2024 Medicare Annual Wellness (AWV) Medicare Annual Wellness (AWV) [facility] Start: 03-14-2024 End: 03-14-2024 Patient encounter procedure [facility] Comment on above: Arrived Start: 03-07-2024 Hemoglobin A1c measurement Diabetes: Hemoglobin A1C [facility] Start: 02-21-2024 End: 02-20-2025 DXA Skeletal system Views for bone density DEXA bone density Imaging Routine Estrogen deficiency Expected: 02/21/2024, Expires: 02/20/2025 [facility] Work Phone: Comment on above: Expected: 02/21/2024 , Expires: 02/20/2025 Start: 02-21-2024 End: 02-21-2024 Patient encounter procedure 02/21/2024 1:00 PM EDT Office Visit [facility] [address] [place] [address] Erin Vang PA [address] [place] [address] Arrived [facility] Comment on above: Arrived Start: 01-28-2024 Influenza vaccination Influenza Vacc ine (#1) [facility] Start: 07-18-2023 End: 07-18-2023 Patient encounter procedure 07/18/2023 2:15 PM EST Office Visit [facility] [address] [place] [id number] Swathi Baca DO [address] [place] [address] [facility] Start: 07-05-2023 End: 07-05-2023 Patient encounter procedure 07/05/2023 2:00 PM EST Office Visit [facility] [address] [place] [address] Erin Vang PA [address] [place] [address] [facility] Start: 06-22-2023 Hemoglobin A1c measurement Diabetes: Hemoglobin A1C [facility] Start: 02-26-2022 Influenza vaccination Influenza Vacc ine (#1) [facility] Start: 2011 Measurement of occul [...] Screening for malign ant neoplasm of cervix [facility] Start: 1982 Screening for malign ant neoplasm of cervix Pap Smear [facility] Start: 1979 Hepatitis C screening Hepatitis C An tibody [facility] Start: 1979 Tetanus + diphtheria + acellular pertussis vaccine (product) Tdap [facility] Start: 1976 HIV screening HIV Test [facility] Start: 1961 COVID-19 Vaccine (#1) COVID-19 Vacci ne (#[facility] Start: [facility] Screening for malign ant neoplasm of colon [facility] Immunizations Immunization Date Immunization Notes Care Provider Fa [facility] 02-21-2024 influenza, seasonal, injectable, preservative free Erin Vang PA Work Phone: [facility] 12-06-2023 tetanus toxoid, redu aimee diphtheria toxoid, and acellular pertussis vaccine, adsorbed Erin Vang PA Work Phone: [facility] 04-13-2023 Influenza, injectabl e, Madin [place] Canine Kidney, preservative free, quadrivalent Erin Hemefrain PA Work Phone: [facility] 04-13-2023 RSV, recombinant, pr otein subunit RSVpreF, adjuvant reconstitu, 120mcg/0.5mL, PF (Arexvy) Erin Vang PA Work Phone: [facility] 04-13-2023 influenza virus vacc ine, unspecified formulation Erin Vang PA Work Phone: [facility] 06-13-2022 Pneumococcal Conjuga te PCV 20 Erin Vang PA Work Phone: [facility] 03-31-2022 Influenza, injectabl e, Madin [place] Canine Kidney, preservative free, quadrivalent Erin Hemmer PA Work Phone: [facility] 03-24-2021 influenza, injectabl e, quadrivalent, contains preservative Erin Hemmer PA Work Phone: [facility] 03-10-2020 Influenza, injectabl e, Madin [place] Canine Kidney, preservative free, quadrivalent Erin Hemmer PA Work Phone: [facility] 03-12-2019 influenza, injectabl e, madin [place] canine kidney, preservative free Erin Hemmer PA Work Phone: [facility] 04-06-2018 Influenza, injectabl e, Madin [place] Canine Kidney, preservative free, quadrivalent Erin Hemmer PA Work Phone: [facility] 02-21-2017 pneumococcal polysaccharide vaccine, 23 valent Erin Hemmer PA Work Phone: [facility] 02-21-2017 seasonal influenza, intradermal, preservative free Erin Hemmer PA Work Phone: [facility] 04-19-2016 influenza, injectabl e, quadrivalent, preservative free Erin Hemmer PA Work Phone: [facility] 02-04-2015 seasonal influenza, intradermal, preservative free Erin Hemmer PA Work Phone: [facility] 03-25-2008 seasonal influenza, intradermal, preservative free Erin Hemmer PA Work Phone: [facility] Payers Date Payer Category Payer Medicare [id number] 2023 Medicare (Managed Care) 1.2. [id number] 2023 Private Health Insurance [facility] [id number] 2023 Unknown [id number] 2023 Unknown [id number] 2022 Self-pay 2022 Medicare [id number] 2022 Unknown [id number]. 1.13.56.2 .[id number] 2022 Unknown 9 2021 Unknown [id number] 1961 Unknown [id number] 2.16.840.1.381060.3.579. 2.732 1961 Unknown [id number] 2.16.840.1.648964.3.579. 2.593 1961 Unknown [id number] 2.16.840.1.360392.3.579. 2.593 1961 Unknown [id number] 2.16.840.1.688229.3.579. 2.593 1961 Unknown [id number] 2.16.840.1.900128.3.579. 2.593 1961 Unknown [id number] 2.16.840.1.083623.3.579. 2.593 1961 Unknown [id number] 2.16.840.1.542609.3.579. 2.593 1961 Unknown [id number] 2.16.840.1.826623.3.579. 2.593 1961 Unknown [id number] 2.16.840.1.943416.3.579. 2.593 1961 Unknown [id number] 2.16.840.1.709969.3.579. 2.593 1961 Unknown [id number] 2.16.840.1.504898.3.579. 2.196 1961 Unknown [id number] 2.16.840.1.359589.3.579. 2.196 1961 Unknown [id number] 2.16.840.1.507776.3.579. 2.196 1961 Unknown [id number] 2.16.840.1.680255.3.579. 2.196 1961 Unknown [id number] 2.16.840.1.565635.3.579. 2.1259 1961 Unknown [id number] 2.16.840.1.128666.3.579. 2.1259 1961 Unknown [id number] 2.16.840.1.767220.3.579. 2.1259 1961 Unknown [id number] 2.16.840.1.220095.3.579. 2.1259 1961 Unknown [id number] 2.16.840.1.955096.3.579. 2.1259 1961 Unknown [id number] 2.16.840.1.476853.3.579. 2.1259 1961 Unknown [id number] 2.16.840.1.471279.3.579. 2.1259 1961 Unknown [id number] 2.16.840.1.432467.3.579. 2.1259 1961 Unknown [id number] 2.16.840.1.675300.3.579. 2.1259 1961 Unknown [id number] 2.16.840.1.086100.3.579. 2.1259 1961 Unknown [id number] 2.16.840.1.595248.3.579. 2.1259 1961 Unknown [id number] 2.16.840.1.254800.3.579. 2.1259 1961 Unknown [id number] 2.16.840.1.427617.3.579. 2.1259 Unknown [id number] 2.16.840.1.890988.3.579. 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 Check blood glucose daily.. [id number] Start: 03-22-2023 Goals Date Patient Goal Desired Activity /State Personal health goal Clinical Notes 01-25-2022 to 07-30-2024 Yarelis Gallardo, BLANKET WASHER-CUFF MATCHER - 07/30/2024 1:00 PM ESTTelephone Encounter - Melissa Whitfieldt - 07/23/2024 2:05 PM ESTTelephone Encounter - Melissa Nancy - 07/23/2024 2:05 PM EST Note Date & Type Note Facility 07-30-2024 History of Presen t illness Narrative Images from the original note were not included. HPI: Sanna Corrales is a 64 y.o. female with a history of Bipolar I Disorder . Patient is here today for follow-up. Patient states has decompensated since last appointment. Last week ran out of medication out of the vraylar for 4 days and 30mg of cymbalta. Mood is reported as irritable. I feel down like Im dragging. Physically. Able to enjoy some things. Enjoys collecting stamps. Goes all over. Wakes up at 3am then can't go back to sleep. The pain mades it difficult to go back to sleep. Valium on med lest Appetite is reported as Patient reports they have been compliant with medication regimen. Patient denies any side effects or somatic complaints. Patient denies abuse of substances. Medical problems since last visit: Having nerve injections for pain in neck. Psychosocial stressors include: SUBJECTIVE: PAST MEDICAL HISTORY: Past Medical History: Diagnosis Date Abnormal finding on radiological examination of breast Adult respiratory distress syndrome (CMS/HCC) 2014 Allergic Allergic rhinitis due to allergen Arthritis Asthma ([facility]) Bipolar 1 disorder ([facility]) 1991 most recent episode (or current) depressed, unspecified Bronchitis Calculus of gallbladder without mention of cholecystitis or obstruction Carpal tunnel syndrome left Cataract Cholecystitis Closed fracture of ankle Congenital heart failure ([facility]) COPD (chronic obstructive pulmonary disease) ([facility]) Degeneration of lumbar or lumbosacral intervertebral disc Diabetes mellitus ([facility]) without mention of complication, type II or unspecified type, not stated as uncontrolled Disease of thyroid gland (CMS/[facility]) Dry eyes Essential hypertension, benign (CMS/[facility]) Essential hypertension, malignant (CMS/[facility]) Extremity ischemia 2013 rt lower Fracture ankle Headache Hernia of abdominal wall without mention of obstruction or gangrene History of being hospitalized 06/06/2022 AMS due to Med Overuse, Hypoxia, Fall, Acute on Chronic RF Hx of migraine headaches Hypertension ([facility]) Hypothyroidism ([facility]) IBS (irritable bowel syndrome) Influenza with pneumonia Manic episode ([facility]) 1985 Meniere disease Morbid obesity ([facility]) Myalgia and myositis Osteoarthritis Osteoporosis ([facility]) Personal history of medical treatment 2013 cardiopulmonary collapse and acute respiratory failure( Respiratory failure ([facility]) Rheumatoid arthritis ([facility]) Rotator cuff tear right Skin lesion Spondylosis unspecified site without mention of myelopathy Suicidal ideations 2012 Thyroid disease ([facility]) MEDICATIONS: Current Outpatient Medications Medication Instructions albuterol HFA (Ventolin HFA) 90 mcg/act inhaler 2 puffs, Inhalation, Every 4 hours PRN albuterol 2.5 mg, Nebulization, Every 8 hours Bacillus Coagulans-Inulin (Probiotic Formula) 1-250 BILLION-MG capsule 1 capsule, Oral, Twice a day (mid-day and evening) baclofen (LIORESAL) 10 mg, Oral, 3 times daily PRN Blood Glucose Monitoring Suppl device USE DIRECTED Hweymyv-Rnuoxdcvcmv-Rcnfnimyvo (Breztri Aerosphere) 160-9-4.8 MCG/ACT aerosol 2 puffs, Inhalation, 2 times daily Cariprazine HCl (Vraylar) 3 MG capsule 1 capsule, Oral, Nightly diclofenac (Voltaren) 75 MG EC tablet TAKE 1 TABLET BY MOUTH IN THE MORNING AND 1 TABLET BEFORE BEDTIME. DO NOT CRUSH, CHEW, OR SPLIT. DULoxetine (CYMBALTA) 120 mg, Oral, Every 24 hours DULoxetine (CYMBALTA) 60 mg, Oral, Daily, Do not crush or chew. DULoxetine (CYMBALTA) 30 mg, Oral, Daily, Do not crush or chew. Farxiga 10 mg, Oral, Daily fluticasone (Flonase) 50 MCG/ACT nasal spray INSTILL 1 SPRAY INTO EACH NOSTRIL DAILY SHAKE GENTLY. BEFORE FIRST USE, PRIME PUMP. AFTER USE, CLEAN TIP AND REPLACE CAP furosemide (LASIX) 40 mg, Oral, 2 times daily gabapentin (Neurontin) 600 MG tablet Take 1 tablet (600 mg) by mouth 2 (two) times a day AND 2 tablets (1,200 mg) at bedtime. HYDROcodone-acetaminophen (Tiff) 5-325 MG tablet 1 tablet, Oral, Every 6 hours PRN hydrOXYzine pamoate (VISTARIL) 25 mg, Oral, Every 8 hours PRN lamoTRIgine (LAMICTAL) 200 mg, Oral, Nightly Lancets 30G misc 1 each, Does not apply, Daily, Check blood glucose daily. levothyroxine (SYNTHROID, LEVOXYL) 112 mcg, Oral, Daily RT metoprolol tartrate (Lopressor) 25 MG tablet TAKE 1 TABLET (25 MG) BY MOUTH IN THE MORNING AND BEFORE BEDTIME OXYGEN-HELIUM IN inhaled nasal continuous use rosuvastatin (CRESTOR) 5 mg, Oral, Daily Tradjenta 5 mg, Oral, Daily traMADol (Ultram) 50 MG tablet 1 tablet, 3 times daily PRN traZODone (DESYREL) 200 mg, Oral, Nightly triamcinolone (Kenalog) 0.5 % cream APPLY 1 APPLICATION EXTERNALLY ONCE A DAY NEEDED 7 DAY(S) ALLERGIES: Allergies Allergen Reactions Ambien [Zolpidem] Other Terrible nightmares Cefdinir Hives Ibandronate Hives Nabumetone Other Reaction(s): PT DOESN'T REMEMBER Penicillin G Other Reaction(s): fever, hives Sulfanilamide Other Reaction(s): Fever,hives Zoloft [Sertraline] Unusual behaviors SURGICAL HISTORY: Past Surgical History: Procedure Laterality Date BIOPSY SKIN SUBCUTANEOUS TISSUE 2013 removal/ biopsy;Disease:abnormal skin lesion BREAST BIOPSY 2011 BRONCHOSCOPY 2013 CARDIAC CATHETERIZATION 2011 CARPAL TUNNEL RELEASE Left 2008 CHOLECYSTECTOMY 2010 ECHO 2014 EMBOLECTOMY 2014 right femoral artery [...] per day coffee, tea Drug use: Never Patient Care Team: Jer Rizo MD as PCP - General (Internal Medicine) Yarelis Gallardo APRN-CUFF MATCHER as Nurse Practitioner (Psychiatry) PSYCHIATRIC REVIEW OF SYMPTOMS AND MENTAL STATUS EXAM ROS: Appearance Appearance: Normal grooming and hygiene. Appears stated age. Dressed appropriately for weather. Behavior Calm, cooperative, pleasant. Good posture. Psychomotor Activity Tremors left is worse than the right Eye contact Good Speech Normal, clear, regular rate, rhythm and volume Affect Full range. Stable. Appropriate and congruent with mood. Mood Anxious, Depressed, and Irritable-mild Thought Process Organized, logical, and goal directed Thought Content: Denies suicidal and homicidal ideation. Perception: Denies auditory or visual hallucinations. No evidence of delusions. Denies derealization and depersonalization. Cognition Alert and attentive during visit Memory Immediate, recent and remote memory intact Insight Good. Acknowledges predominant symptoms of illness and need for treatment Judgement Good. Able to make reasonable life decisions. OBJECTIVE: Visit Vitals Smoking Status Never No [...] results found for: TRIG ASSESSMENT AND PLAN: Impression: This is a 64-year-old female who is here to establish psychiatric care for the treatment of her bipolar disorder. Med trials patient had been on a variety of medications prior to coming some of them include Zoloft, Effexor, Cymbalta, patient had also been on lithium stopped working was also on Risperdal and Seroquel Abilify and currently now on Vraylar and finds it effective. hx of Psychiatric hospitalizations. Patient reports that she has had 1 episode of psychiatric hospitalization requiring restraints. Will evaluate current med regimen aop see if improvements could be made. Bipolar disorder most recent depressed JENN Treatment Plan/Recommendations: Decrease Cymbalta 60mg po -take in am. Feels clearer. dt tremors irritability anxiety, memory Tremors are have lessened. Lamictal 200 mg nightly- bipolar depression Trazodone 100mg 2 tabs nightly Vraylar 3mg po every day ; (She was on 6mg. Lowered due to tremors. ) Add vistaril 25mg q 8hours prn for anxiety Referred to Psychotherapy -will be seeing [facility] - Continue counseling for additional mental health support and treatment. - RTC in 6 weeks. Discussed any medication changes and follow-up plan with patient. Encouraged patient to call office sooner if symptoms worsen or if any questions/concerns arise. Patient was seen Face to Face, Total time spent with patient was 30min , which includes reviewing chart documents, previous notes/records, counseling and discussion with patient and/or coordination of care as described above. documented in this encounter [facility] 07-23-2024 Telephone encounter Note Patient called requesting a refill on Duloxetine 30mg and Vraylar 3mg sent to [facility] in [place]. Patient has a follow up scheduled for 07/30. [facility] 07-23-2024 Miscellaneous Notes Patient called requesting a refill on Duloxetine 30mg and Vraylar 3mg sent to [facility] in [place]. Patient has a follow up scheduled for 07/30. documented in this encounter [facility] 05-15-2024 History of Presen t illness Narrative Images [...] allergen Arthritis Asthma (CMS/HCC) Bipolar 1 disorder (CMS/HCC) 1991 most recent episode (or current) depressed, unspecified Bronchitis Calculus of gallbladder without mention of cholecystitis or obstruction Carpal tunnel syndrome left Cataract Cholecystitis Closed fracture of ankle Congenital heart failure (CMS/HCC) COPD (chronic obstructive pulmonary disease) (CMS/HCC) Degeneration of lumbar or lumbosacral intervertebral disc Diabetes mellitus (CMS/HCC) without mention of complication, type II or unspecified type, not stated as uncontrolled Disease of thyroid gland (CMS/HCC) Dry eyes Essential hypertension, benign (CMS/HCC) Essential hypertension, malignant (CMS/HCC) Extremity ischemia 2013 rt lower Fracture ankle Headache Hernia of abdominal wall without mention of obstruction or gangrene History of being hospitalized 06/06/2022 AMS due to Med Overuse, Hypoxia, Fall, Acute on Chronic RF Hx of migraine headaches Hypertension (CMS/HCC) Hypothyroidism (CMS/HCC) IBS (irritable bowel syndrome) Influenza with pneumonia Manic episode (CMS/HCC) 1985 Meniere disease Morbid obesity (CMS/HCC) Myalgia and myositis Osteoarthritis Osteoporosis (CMS/HCC) Personal history of medical treatment 2012 cardiopulmonary collapse and acute respiratory failure( Respiratory failure (CMS/HCC) Rheumatoid arthritis (CMS/HCC) Rotator cuff tear right Skin lesion Spondylosis unspecified site without mention of myelopathy Suicidal ideations 2012 Thyroid disease (CMS/HCC) ALLERGIES: Allergies Allergen Reactions Ambien [Zolpidem] Other [...] and Time Memory/Concentration Short term intact and mcfp intact Insight/Judgement Fair OBJECTIVE: Visit Vitals Smoking [...] previously a patient of Dr. Parekh at [facility]. Patient had also seen Dr. [...] :45min F/U 4weeks documented in this encounter [facility] 04[facility]24 History of Presen t illness Narrative Images [...] examination of breast Adult respiratory distress syndrome ([facility]) 2014 Allergic Allergic rhinitis due to allergen Arthritis Asthma ([facility]) Bipolar 1 disorder ([facility]) 1991 most recent episode (or current) depressed, unspecified Bronchitis Calculus of gallbladder without mention of cholecystitis or obstruction Carpal tunnel syndrome left Cataract Cholecystitis Closed fracture of ankle Congenital heart failure ([facility]) COPD (chronic obstructive pulmonary disease) (CMS/[facility]) Degeneration of lumbar or lumbosacral intervertebral disc Diabetes mellitus ([facility]) without mention of complication, type II or unspecified type, not stated as uncontrolled Disease of thyroid gland (CMS/[facility]) Dry eyes Essential hypertension, benign (CMS/HCC) Essential hypertension, malignant (CMS/HCC) Extremity ischemia 2013 rt lower Fracture ankle Headache Hernia of abdominal wall without mention of obstruction or gangrene History of being hospitalized 06/06/2022 AMS due to Med Overuse, Hypoxia, Fall, Acute on Chronic RF Hx of migraine headaches Hypertension (CMS/[facility]) Hypothyroidism (CMS/HCC) IBS (irritable bowel syndrome) Influenza with pneumonia Manic episode ([facility]) 1985 Meniere disease Morbid obesity (CMS/HCC) Myalgia and myositis Osteoarthritis Osteoporosis (CMS/HCC) Personal history of medical treatment 2013 cardiopulmonary collapse and acute respiratory failure( Respiratory failure (CMS/HCC) Rheumatoid arthritis (CMS/HCC) Rotator cuff tear right Skin lesion Spondylosis unspecified site without mention of myelopathy Suicidal ideations 2012 Thyroid disease (CMS/HCC) ALLERGIES: Allergies Allergen Reactions Ambien [Zolpidem] Other [...] and Time Memory/Concentration Short term intact and salvage determiner intact Insight/Judgement Fair OBJECTIVE: Visit Vitals Smoking [...] previously a patient of Dr. Parekh at [facility]. Patient had also seen Dr. [...] 10mg twice a day for one week Smjy5tn twice a day week Then 5mg once a day for week then discontinue Add vistaril 25mg q 8hours prn for anxiety Refer to Psychotherapy Patient was seen Face to Face, Reviewed chart documents and documentation, Visit time :40min F/U 6 weeks documented in this encounter [facility] 03-27-2024 History of Presen t illness Narrative [...] a 64 y.o. female who presents for [facility] ER follow up. Flowsheet Row Patient Outreach from 03/26/2024 in [facility] with Octavia Golden LPN Hospital Information ED, Hospital or Penitentiary Facility Discharge? ED Patient has been contacted within 1 week of being seen in the ED No Have two attempts been made to contact the patient within one week of being seen in the ED? No Discharge Date 03/18/24 Discharged To: Home Setting Discharge Hospital [facility] Engagement Call Start Time 1030 Admission [...] Suppl device USE DIRECTED 100 strip 2 Abcuehc-Gjhiypzwqgw-Agajlakjyx (Breztri Aerosphere) 160-9-4.8 MCG/ACT aerosol Inhale 2 [...] blood glucose daily 100 each 3 HYDROcodone-acetaminophen (Tiff) 5-325 MG tablet Take 1 tablet by [...] NEEDED 7 DAY(S) 30 g 2 [DISCONTINUED] ysmnbuzm-nqsljwnwy-cpmdvgnwrqznxr (Cortisporin) 3.5-13152-3 otic suspension USE 3 DROPS IN EACH [...] examination of breast Adult respiratory distress syndrome ([facility]) 2014 Allergic Allergic rhinitis due to allergen Arthritis Asthma (CMS/[facility]) Bipolar 1 disorder ([facility]) 1991 most recent episode (or current) depressed, unspecified Bronchitis Calculus of gallbladder without mention of cholecystitis or obstruction Carpal tunnel syndrome left Cataract Cholecystitis Closed fracture of ankle Congenital heart failure (CMS/[facility]) COPD (chronic obstructive pulmonary disease) ([facility]) Degeneration of lumbar or lumbosacral intervertebral disc Diabetes mellitus ([facility]) without mention of complication, type II or unspecified type, not stated as uncontrolled Disease of thyroid gland (CMS/[facility]) Dry eyes Essential hypertension, benign (CMS/HCC) Essential hypertension, malignant (CMS/[facility]) Extremity ischemia 2013 rt lower Fracture ankle Headache Hernia of abdominal wall without mention of obstruction or gangrene History of being hospitalized 06/06/2022 AMS due to Med Overuse, Hypoxia, Fall, Acute on Chronic RF Hx of migraine headaches Hypertension (CMS/[facility]) Hypothyroidism ([facility]) IBS (irritable bowel syndrome) Influenza with pneumonia Manic episode ([facility]) 1985 Meniere disease Morbid obesity ([facility]) Myalgia and myositis Osteoarthritis Osteoporosis ([facility]) Personal history of medical treatment 2013 cardiopulmonary collapse and acute respiratory failure( Respiratory failure ([facility]) Rheumatoid arthritis ([facility]) Rotator cuff tear right Skin lesion Spondylosis unspecified site without mention of myelopathy Suicidal ideations 2012 Thyroid disease ([facility]) Past Surgical History: Procedure Laterality [...] complication, without long-term current use of insulin ([facility]) - POCT Glycated hemoglobin, total [...] continue to follow up with Dr. Divya Alfrao as per his instruction. As she received notification from her insurance that the injections have been approved, encouraged her to reach out to his office tomorrow if she has not heard from them. Follow up in about 3 months (around 06/27/2024) for Diabetes. documented in this encounter [facility] 03-14-2024 History of Presen t illness Narrative NEW PATIENT PSYCHIATRIC EVALUATION This is a 64-year-old female who is here to establish psychiatric care for the treatment of her bipolar disorder. Patient was previously a patient of Dr. Parekh at [facility]. Patient had also seen Dr. [...] suffers from alcoholism. Her Brother is a oil lease operator and denies any mental health problems. Denies Hx of Substance abuse. Frequency of Alcohol on special occasions. Marijuana use denies. Legal hx denies. Patient is no children. Worked at [employer]. Lives with her sister. Stressors: Patient states [...] previously a patient of Dr. Parekh at [facility]. Patient had also seen Dr. [...] is drinking again. documented in this encounter [facility] 02-21-2024 History of Presen t illness Narrative Images [...] Suppl device USE DIRECTED 100 strip 2 Biivhjs-Agetdfgtinp-Iloglvtqhi (Breztri Aerosphere) 160-9-4.8 MCG/ACT aerosol Inhale 2 [...] MORNING AND BEFORE BEDTIME 180 tablet 4 kjhcwybx-ductljnoy-agpxcaewizsvqn (Cortisporin) 3.5-14036-9 otic suspension USE 3 DROPS IN EACH [...] 7 DAY(S) 30 g 2 [DISCONTINUED] HYDROcodone-acetaminophen (Tiff) 5-325 MG tablet Take 1 tablet by [...] examination of breast Adult respiratory distress syndrome ([facility]) 2013 Allergic Allergic rhinitis due to allergen Arthritis Asthma ([facility]) Bipolar 1 disorder ([facility]) 1991 most recent episode (or [...] syndrome) Influenza with pneumonia Manic episode (CMS/HCC) 1985 Meniere disease Morbid obesity (CMS/HCC) Myalgia and myositis Osteoarthritis Osteoporosis (CMS/HCC) Personal history of medical treatment 2013 cardiopulmonary collapse and acute respiratory failure( Respiratory failure (CMS/HCC) Rheumatoid arthritis (CMS/HCC) Rotator cuff tear right Skin lesion Spondylosis unspecified site without mention of myelopathy Thyroid disease (CMS/HCC) Past Surgical History: Procedure Laterality Date BIOPSY SKIN SUBCUTANEOUS TISSUE 2013 removal/ biopsy;Disease:abnormal skin lesion BREAST BIOPSY 2011 BRONCHOSCOPY 2013 CARDIAC CATHETERIZATION 2011 CARPAL TUNNEL RELEASE Left 2008 CHOLECYSTECTOMY 2010 ECHO 2014 EMBOLECTOMY 2014 right femoral artery OTHER SURGICAL HISTORY 2012 percutaneous cannulation of right femerol artery/v;Disease:cardiopulmonary collapse and acute respiratory failure OTHER SURGICAL HISTORY ORIF MS KNEE SCOPE,DIAGNOSTIC Right 02/04/2020 Dr. Cheek ROTATOR CUFF REPAIR Right 2007 STRESS TEST EXERCISE 2010 [facility] TONSILLECTOMY Visit Vitals BP 134/82 Pulse 68 [...] Lumbar radiculopathy Provided pt with referral to [facility] for further evaluation and treatment. She has received injections in the past. Spinal stenosis, unspecified spinal region See above. Cervical spondylosis - HYDROcodone-acetaminophen (Tiff) 5-325 MG tablet; Take 1 tablet by [...] 03/20/2024) for Diabetes. documented in this encounter [facility] 07-26-2022 Note PAIN MANAGEMENT CONS ULTATION [...] purpose. I have decreased the use of Tiff from q. 6 hours to q.i.d., 5 mg pills, to be taken as tolerated, and to increase the baclofen 10 mg pill, one pill t.i.d. also as tolerated. Went over the details of the procedure with the patient. All her questions were answered. She agrees to proceed with the outlined plan. [facility] 06-06-2022 Note PROCEDURE: XR SHOULD ER RT [...] by: BURT FIGUEROA Date: 2022-06-06 13:36 [facility] 01-25-2022 History of Presen t illness Narrative Images from the original note were not included. EMERGENCY TRIAGE, TREAT AND TRANSPORT (ET3) DOCUMENTATION OF TELEHEALTH VISIT Date / Time: 01/14/2022729 Name: Sanna Corrales : 1960 SSN: (Not on file) EMS Agency: [facility] [] Verbal consent obtained [] Implied consent - patient with potential emergency medical condition requiring assessment of capacity to refuse treatment and/or transport VITAL SIGNS: see flowsheet documentation Reason for Telehealth Visit: Chief Complaint Patient presents with Fall History of Present Ilness: 61 yo female who [facility] called for lift assist. No [...] complication, without long-term current use of insulin ([facility])- Primary Limitation of activities due [...] single disease documented in this encounter [facility]* Diagnosis Mixed bipolar affective disorder, moderate (CMS/HCC) Bipolar I disorder, most recent episode (or current) mixed, moderate Bipolar affective disorder, currently depressed, moderate (CMS/HCC) Bipolar I disorder, most recent episode (or current) depressed, moderate documented in [facility] encounter [facility]* Diagnosis Cervical spondylosis Cervical spondylosis without myelopathy Bipolar affective disorder, currently depressed, moderate (CMS/HCC) Bipolar I disorder, most recent episode (or current) depressed, moderate Mixed bipolar affective disorder, moderate (CMS/HCC) Bipolar I disorder, most recent episode (or current) mixed, moderate documented in this encounter [facility] Healthcare Summary Purpose Family History No Family History Records FoundNo Family History Records FoundNo Family History Records FoundNo Family History Records FoundNo Family History Records Found Advance Directives No Advanced Directives Records FoundNo Advanced Directives Records FoundNo Advanced Directives Records FoundNo Advanced Directives Records FoundNo Advanced Directives Records Found Additional Source Comments Reason for Visit (unrecogniz ed section and content) Reason Comments Med Management Follow-up Specialty Diagnoses / Procedures Referred By Lang harris Referred To Contact Behavioral Health Diagnoses Counseling Procedures Counseling Yarelis Gallardo, BLANKET WASHER-CUFF MATCHER [address] [place] [address] Phone: tel: fax: [facility] [address] [place] [address] Phone: tel: fax: Referral ID Status Reason Start Date Expiration Date V isits Requested Visits Authorized [id number] Authorized 05/15/2024 11/11/2024 2 2 Reason Comments Fall Reason Comments Psychiatric Evaluation Reason Comments Diabetes Denies foot ulcers, hypoglycemia. Admits tingling/numbness in extremities. Does not check BS's at home but on Monday at the pain clinic they checked her sugar and it was 265. Currently on Farxiga and Tradjenta. Reason Comments Med Refill Reason Comments Follow-up Med Management Reason Comments Med Refill Lamictal, trazodone Reason Onset Date Comments Med Refill 07/23/2024 INFORMATION SOURCE (unrecogn ized section and content) DATE CREATED AUTHOR 02/03/2022 [facility] DATE CREATED AUTHOR AUTHOR'S ORGANIZ ATION 08/31/2022 [facility] DATE CREATED AUTHOR AUTHOR'S ORGANIZ ATION 08/04/2023 [facility] DATE CREATED AUTHOR AUTHOR'S ORGANIZ ATION 07/26/2024 [facility] DATE CREATED AUTHOR AUTHOR'S ORGANIZ ATION 08/01/2024 [facility] Care Teams (unrecognized sec tion and content) [employer] Supervisor Relationship Specialty Start Date End Date Jer Rizo MD [address] [facility] [address] [place] [address] PCP - General Internal Medicine 01/03/23 Jer Rizo MD [address] [place] [address] PCP - Devoted 05/29/23 [employer] Supervisor Relationship Specialty Start Date End Date Jer Rizo MD [address] [place] [address] PCP - General Internal Medicine 01/03/23 Jer Rizo MD [address] [place] [address] PCP - Devoted 05/29/23 [employer] Supervisor Relationship Specialty Start Date End Date Jer Rizo MD [address] [place] [address] PCP - General Internal Medicine 01/03/23 Jer Rizo MD [address] [place] [address] PCP - Devoted 05/29/23 [employer] Supervisor Relationship Specialty Start Date End Date Jer Rizo MD [address] [place] [address] PCP - General Internal Medicine 01/03/23 Jer Rizo MD [address] [place] [address] PCP - Devoted 05/29/23 [employer] Supervisor Relationship Specialty Start Date End Date Jer Rizo MD [address] [place] [address] PCP - General Internal Medicine 01/03/23 Jer Rizo MD [address] [place] [address] PCP - Devoted 05/29/23 [employer] Supervisor Relationship Specialty Start Date End Date Jer Rizo MD [address] [place] [address] PCP - General Internal Medicine 01/03/23 Jer Rizo MD [address] [place] [address] PCP - Devoted 05/29/23 [employer] Supervisor Relationship Specialty Start Date End Date Jer Rizo MD [address] [place] [address] PCP - General Internal Medicine 01/03/23 Jer Rizo MD [address] [place] [address] PCP - Devoted 05/29/23 [employer] Supervisor Relationship Specialty Start Date End Date Jer Rizo MD [address] [place] [address] PCP - General Internal Medicine 01/03/23 Jer Rizo MD [address] [place] [address] PCP - Devoted 05/29/23 [employer] Supervisor Relationship Specialty Start Date End Date Jer Rizo MD [address] [place] [address] PCP - General Internal Medicine 01/03/23 Jer Rizo MD [address] [place] [address] PCP - Devoted 05/29/23 [employer] Supervisor Relationship Specialty Start Date End Date Jer Rizo MD [address] [place] [address] PCP - General Internal Medicine 01/03/23 Jer Rizo MD [address] [place] [address] PCP - Devoted 05/29/23 [employer] Supervisor Relationship Specialty Start Date End Date Jer Rizo MD [address] [place] [address] PCP - General Internal Medicine 01/03/23 Yarelis Gallardo APRN-CUFF MATCHER [address] [place] [address] Nurse Practitioner Psychiatry 06/13/24 [employer] Supervisor Relationship Specialty Start Date End Date Jer Rizo MD [address] [place] [address] PCP - General Internal Medicine 01/03/23 Jer Rizo MD [address] [place] [address] PCP - Sari HERNANDEZ 05/29/24 Yarelis Gallardo, [facility] [address] [place] [address] Nurse Practitioner Psychiatry 06/13/24 [employer] Supervisor Relationship Specialty Start Date End Date Jer Rizo MD [address] [place] [address] PCP - General Internal Medicine 01/03/23 Jer Rizo MD [address] [place] [address] PCP Shey Guo MA 05/29/24 Yarelis Gallardo, [facility] [address] [place] [address] Nurse Practitioner Psychiatry 06/13/24 FOR RECORDS PERTAINING TO PATIENTS WHO ARE [...] BE BASED ON THE PRIMARY CLINICAL RECORDS. [facility] [employer] [facility]. provides no warranty or guarantee of the accuracy or completeness of information in this document.
[2024-08-05 08:27] VITALS: BP 126/74; PULSE 70; TEMP 36.8; O2SAT 91
[2024-08-05 08:39] LABS: Glucometer 265 mg/dL (74-106)
[2024-08-05 09:00] VITALS: BP 154/65; PULSE 65; O2SAT 92
[2024-08-05 09:03] VITALS: BP 144/73; PULSE 66
[2024-08-05] MEDS: BUPIVACAINE HCL 0.25% PF 25 MG/10 ML VIAL 2 ML INJ (09:05)
[2024-08-05] MEDS: DEXAMETHASONE SOD PHOS 10 MG/ML VIAL INJ (09:05)
[2024-08-05] MEDS: LIDOCAINE HCL 2% 400 MG/20 ML MDV 8 ML INJ (09:06)
--- NOTE | 2024-08-05 09:13 | P.ON_ITS ---
Date of procedure: 08/05/24 Pre-op diagnosis: Pain due to cervical spondylosis without myelopathy Post-op diagnosis: same as pre-op Procedure: Procedure: Left C2-3, 3-4 radiofrequency ablation Medications: Bupivacaine 0.25% 2cc, lidocaine 2% 3cc, dexamethasone 10mg The patient was seen and examined in the preoperative holding area.? The site was marked.? Written informed consent was obtained and placed on the chart.? The patient was brought to the medical procedure unit and placed in the prone position.? A timeout was completed verifying correct patient, procedure, positioning, and special requirements.? The skin overlying the target points, the designated medial branch, were prepped and draped in the usual sterile fashion.? The target point was achieved with a 20-gauge 15 cm with a 10 mm curved active tip radiofrequency cannula under direct fluoroscopic visualization .? The needle was inserted at level C2 on the left side. Needle tip position was confirmed with lateral fluoroscopic position.? Motor stimulation was carried out at 2 Hz up to 5 volts with the absence of extremity activity.? This was repeated at level C3, 4 on left side.?? Sensory stimulation was carried out.? Concordant pain was realized at the above- mentioned sites.? Then radiofrequency lesioning was carried out times 90 seconds at 80 degrees times 2 lesions at each level.? The radiofrequency probe was removed prior to cannula removal.? The above-mentioned injectate was placed in 1 mL increments.? The needle was removed.? Insertion sites were covered.? The patient was taken to the postoperative recovery area and monitored for an appropriate length of time before being found suitable for discharge in the company of a responsible adult. Anesthesia: Local Surgeon: Divya Alfaro Pathology: none sent Condition: stable Disposition: no change
== END 2024-08-05 09:25 | disposition home or self-care (01) ==
PROVIDERS: Visit Provider Anesthesiology
DX: M47.812 Spondylosis without myelopathy or radiculopathy, cervical region (principal); Z79.899 Other long term (current) drug therapy
CPT/HCPCS: 36415; 64633; 64634; 64635; 64636; 82948; J0665; J1100

== ENCOUNTER 2024-08-16 09:49 | Outpatient (OUT) | payer MEDICARE, SELFPAY ==
--- NOTE | 2024-08-20 18:02 | W.PM.PROCNOT ---
Procedure: 6 Minute Walk Date: 08/16/2024 Indication: Chronic respiratory failure with hypoxia MMRC: 5 Resting data: -BP: 127/81 -HR: 66 -SpO2: 82% -FiO2: Room air -Viola: 3 Application of supplemental O2: -Patient was placed on 2L/min O2 and SpO2 recovered to 92% Description: 6 minute walk was initiated according to standard protocol. Baseline flow was 2L/min O2 given hypoxia present at rest. Patient ambulated for a total of 6 minutes with the lowest SpO2 at 86%, requiring titration of O2 to 3L/min. The highest heart rate was 78. Recovery data: -BP: 136/81 -HR: 76 -SpO2: 96% -FiO2: 3L/min -Viola: 5 Ambulation: Patient ambulated a total of 91.4m which is 46.6% predicted. One 2 minute stop was reported for weakness and dyspnea. Impressions: Resting and ambulatory hypoxia is present, resolved with application of supplemental O2. Recommendations: 2L/min @ rest and 3L/min with activity/ambulation. Clinical correlation required.
== END 2024-08-16 09:50 | disposition home or self-care (01) ==
LOC: CARD 09:49
PROVIDERS: Visit Provider Internal Medicine
DX: J96.11 Chronic respiratory failure with hypoxia (principal)
CPT/HCPCS: 94618

== ENCOUNTER 2024-08-29 09:57 | Outpatient (OUT) | payer MEDICARE, SELFPAY ==
--- NOTE | 2024-08-29 10:36 | PM.CN ---
Consult Note: HPI Data of Consult Patient: known to practice within the last 3 years Consult date: 03/25/24 Requesting Physician: Connie Lemus NP Primary Care Provider: Non-Staff Physician, Consult Narrative Reason for consult: neck pain Narrative: 64yof who presents for evaluation. longstanding neck, low back pain history. advanced imaging of the neck and low back, which shows multilevel spondylosis and DDD throughout cervical and lumbar spines, though no acute pathology noted. she has continued in a series of provider directed home exercises >6 weeks, without any lasting benefit. she uses tramadol once to twice daily as needed, as well as duloxetine diclofenac baclofen and gabapentin. denies adverse med side effects. recently underwent right and left C2/3 C3/4 RFA with >50% improvement in facet mediated pain. pt noticing increased shooting burning radicular pain to left neck and UE. pain today 6/10 increasing with twsiting bending and lifting. PAT 40% with moderate to severe pain impacting ADLs, sleep, social life, and travel cc:: CC: Connie Lemus NP Review of Systems ROS Status of ROS 10 or more systems reviewed and unremarkable except as noted in history and below [facility] Medical History Endometriosis ?N80.9 - Endometriosis, unspecified (ICD-10) Osteoporosis ?M81.0 - Age-related osteoporosis without current pathological fracture (ICD-10) Asthma ?J45.909 - Unspecified asthma, uncomplicated (ICD-10) Chronic respiratory failure with hypoxia, on home O2 therapy ?J96.11 - Chronic respiratory failure with hypoxia (ICD-10) ?Z99.81 - Dependence on supplemental oxygen (ICD-10) Hiatal hernia ?K44.9 - Diaphragmatic hernia without obstruction or gangrene (ICD-10) Degenerative disc disease, lumbar ?M51.36 - Other intervertebral disc degeneration, lumbar region (ICD-10) Bipolar disorder ?F31.9 - Bipolar disorder, unspecified (ICD-10) Fibromyalgia ?M79.7 - Fibromyalgia (ICD-10) Hypothyroidism ?E03.9 - Hypothyroidism, unspecified (ICD-10) Rheumatoid arthritis ?M06.9 - Rheumatoid arthritis, unspecified (ICD-10) DM2 (diabetes mellitus, type 2) ?E11.9 - Type 2 diabetes mellitus without complications (ICD-10) Mixed hyperlipidemia ?E78.2 - Mixed hyperlipidemia (ICD-10) Essential hypertension ?I10 - Essential (primary) hypertension (ICD-10) Obesity ?E66.9 - Obesity, unspecified (ICD-10) COPD (chronic obstructive pulmonary disease) ?J44.9 - Chronic obstructive pulmonary disease, unspecified (ICD-10) Stable angina pectoris ?I20.89 - Other forms of angina pectoris (ICD-10) Surgical History H/O laparoscopy ?Z98.890 - Other specified postprocedural states (ICD-10) H/O cataract extraction ?Z98.49 - Cataract extraction status, unspecified eye (ICD-10) Hx laparoscopic cholecystectomy ?Z90.49 - Acquired absence of other specified parts of digestive tract (ICD-10) H/O cardiac catheterization ?Z98.890 - Other specified postprocedural states (ICD-10) Family History Other Breast cancer CAD (coronary artery disease) Family history of cancer Family history of diabetes mellitus Family history of hypertension Family history of myocardial infarction Social History Within the past year, how often did you have a drink containing alcohol: never Score interpretation: A score less than 3 is consistent with normal alcohol consumption. Smoking status: Never smoker Previous occupational history: retired/disability Highest level of school completed/degree received: high school graduate Little interest or pleasure in doing things: not at all Feeling down, depressed, or hopeless: not at all Gender Identity: female Meds Home Medications and Allergies Home Medications ?Medication ?Instructions ?Recorded ?Confirmed ?Type budesonide 160 mcg-glycopyr 9 2 inh inhalation BID 06/27/23 08/05/24 History mcg-formot 4.8 mcg/actuation HFA inhaler (Breztri Aerosphere) cariprazine 3 mg capsule (Vraylar) 3 mg PO QDAY 06/27/23 08/05/24 History dapagliflozin propanediol 10 mg 10 mg PO QAM 06/27/23 08/05/24 History tablet (Farxiga) diclofenac sodium 75 mg 75 mg PO Q12H 06/27/23 08/05/24 History tablet,delayed release duloxetine 60 mg capsule,delayed 120 mg PO BEDTIME 06/27/23 08/05/24 History release (Cymbalta) furosemide 40 mg tablet 40 mg PO BID 06/27/23 08/05/24 History gabapentin 600 mg tablet 600 mg PO QAM 06/27/23 08/05/24 History levothyroxine 112 mcg tablet 112 mcg PO DAILY 06/27/23 08/05/24 History rosuvastatin 5 mg tablet 5 mg PO .qhs 06/27/23 08/05/24 History metoprolol tartrate 25 mg tablet 25 mg PO BID 06/28/23 08/05/24 History linagliptin 5 mg tablet (Tradjenta) 5 mg PO DAILY 12/04/23 08/05/24 History hydrocodone 5 mg-acetaminophen 325 tab 05/09/24 History mg tablet diazepam 10 mg tablet mg 08/05/24 History Allergies Allergy/AdvReac Type Severity Reaction Status Date / Time ibandronate sodium (From Allergy Severe Hives Verified 08/05/24 08:36 Boniva) Sulfa (Sulfonamide Allergy Severe Anaphylaxis Verified 08/05/24 08:36 Antibiotics) Penicillins Allergy Intermediate Anaphylaxis Verified 08/05/24 08:36 Exam Constitutional Documenting provider has reviewed patient's vital signs: yes Common normals: no apparent distress, oriented x3, healthy appearing, alert and well nourished General appearance: cooperative [facility] Common normals: normocephalic, hearing grossly normal bilaterally and moist oral mucous membranes Head and scalp: normocephalic Eye Common normals: PERRL Pupil: PERRL Neck & C-Spine Common normals: full ROM General: normal visual inspection Cervical spine: cervical ROM abnormal and pain with cervical ROM Other: positive spurlings decreased sensation left C4,5 C5,6 notable myofascial spasming and discomfort strength 4/5 in LUE and 5/5 in RUE Chest Common normals: inspection of chest normal Respiratory Common normals: normal respiratory effort, no retractions and no use of accessory muscles Neuro Common normals: oriented x3, CN's II-XII intact bilaterally, moves all extremities, no focal motor deficits, no sensory deficits noted and deep tendon reflexes 2+ bilaterally Sensorium/orientation: alert Motor exam: no movement abnormalities noted Psych Common normals: mental status grossly normal, thought process normal, cooperative, affect normal, speech normal and activity/motor behavior normal Speech: normal speech Thought process: normal thought process Results Additional Findings Additional findings: If on a controlled substance or opioids, I have checked an OARRS report on this patient and there are no aberrancies noted in the prescribing history.??If on a controlled substance or opioid a drug screen was completed and reviewed within the last year, and if there has not been a drug screen completed we ordered one today to monitor higher risk, state monitored pain medication use. As part of providing excellent, safe, comprehensive care, the following was completed at our patient's visit: 1. A medication reconciliation and review to ensure accurate knowledge of current/active medications, including asking our patients to inform us about any [id number] medications or herbal remedies/nutritional supplements/alternative remedies. 2. A review to specifically ensure our patients have had annual screening for screening for depression, screening for tobacco use, and screening for unhealthy alcohol use. For concerning screenings had a discussion with the patient, provided patient education, and recommended follow-up with primary care provider when appropriate. If patient noted with a risk of falling, they received education on strength, gait, and balance training to prevent future risk of falling. Portions of this note may have been carried over from the previous visit and updated as appropriate. Please note this office utilizes paper charting in addition to the electronic medical record. A list of current medications, vitals, and PMH is available there as the clinical staff outside of myself do not have access to [employer] charting during the clinic day operations. As part of providing quality comprehensive care the current medications, vitals, and PMH were reviewed in the paper chart. Assessment and Plan Assessment and Plan (1) Degenerative disc disease, cervical: (2) Cervical radiculopathy: (3) Cervical spondylosis: (4) Myalgia, other site: Plan left C4,5 C5,6 TFESI under fluoroscopy for cervical DDD and radiculopathy continue current medications continue HEP as tolerated f/u 2 weeks after injection
== END 2024-08-29 09:58 | disposition home or self-care (01) ==
PROVIDERS: Visit Provider Nurse Practitioner
DX: M50.30 Other cervical disc degeneration, unspecified cervical region (principal); M54.12 Radiculopathy, cervical region; M47.812 Spondylosis without myelopathy or radiculopathy, cervical region; M79.18 Myalgia, other site
CPT/HCPCS: G0463

== ENCOUNTER 2024-09-16 10:59 | Day surgery (SDC) | payer MEDICARE, SELFPAY ==
[2024-09-16 11:18] VITALS: BP 133/78; PULSE 68; TEMP 36.7; O2SAT 90
[2024-09-16 11:30] LABS: Glucometer 212 mg/dL (74-106)
[2024-09-16 12:15] VITALS: BP 126/78; PULSE 76; O2SAT 90
[2024-09-16] MEDS: IOHEXOL 240 MG/ML - 10 ML VIAL 24 MG INJ (12:17)
[2024-09-16] MEDS: DEXAMETHASONE SOD PHOS 10 MG/ML VIAL INJ (12:17)
[2024-09-16] MEDS: BUPIVACAINE HCL 0.25% PF 25 MG/10 ML VIAL INJ (12:17)
[2024-09-16] MEDS: LIDOCAINE HCL 2% 400 MG/20 ML MDV 3 ML INJ (12:17)
[2024-09-16 12:18] VITALS: O2SAT 91
[2024-09-16 12:19] VITALS: BP 144/76; PULSE 78
--- NOTE | 2024-09-16 12:19 | P.ON_ITS ---
Date of procedure: 09/16/24 Pre-op diagnosis: M54.12 Post-op diagnosis: same as pre-op Procedure: Procedure: Left C4-5, 5-6 transforaminal epidural steroid injection Medications: Bupivacaine 0.25% 1cc, lidocaine 2% 1cc, dexamethasone 10mg The patient was seen and examined in the preoperative holding area.? Informed consent was obtained and placed on the chart.? Patient was brought to the medical procedure unit and placed in the prone position where a timeout was completed verifying the correct patient, procedure site, position, and planned special equipment using sterile aseptic technique.? Under direct fluoroscopic visualization a 25-gauge Quincke tipped spinal needle was advanced to the designated neural foramen where contrast dye was injected to show adequate spread.? The needle was inserted at level left C4-5. There was no evidence of vascular or adverse uptake.? Epidural spread was appreciated.? The above- mentioned injectate was then placed in a 1.5 mL aliquot preceded by negative aspiration.? The needle was removed. The needle was inserted and the procedure repeated at level left C5-6.? The surgery site was covered.? Patient was taken to the postprocedural recovery area and monitored for an appropriate length of time before found suitable for discharge in the accompaniment of a responsible adult. Anesthesia: Local Surgeon: Divya Alfaro Pathology: none sent Condition: stable Disposition: no change
== END 2024-09-16 12:33 | disposition home or self-care (01) ==
LOC: SURGOUT 11:00
PROVIDERS: Visit Provider Anesthesiology
DX: M54.12 Radiculopathy, cervical region (principal); E11.8 Type 2 diabetes mellitus with unspecified complications; Z79.85 Long-term (current) use of injectable non-insulin antidiabetic drugs
CPT/HCPCS: 36415; 64479; 64480; 82948; J0665; J1100; Q9966

== ENCOUNTER 2024-10-10 10:53 | Outpatient (OUT) | payer MEDICARE, SELFPAY ==
--- NOTE | 2024-10-10 11:34 | PM.CN ---
Consult Note: HPI Data of Consult Patient: known to practice within the last 3 years Consult date: 10/10/24 Requesting Physician: Connie Lemus NP Primary Care Provider: Non-Staff Physician, Consult Narrative Reason for consult: neck pain Narrative: 64yof who presents for evaluation. longstanding neck, low back pain history. advanced imaging of the neck and low back, which shows multilevel spondylosis and DDD throughout cervical and lumbar spines, though no acute pathology noted. she has continued in a series of provider directed home exercises >6 weeks, without any lasting benefit. she uses tramadol once to twice daily as needed, as well as duloxetine diclofenac baclofen and gabapentin. denies adverse med side effects. recently underwent left C4-5 C5-6 TFESI with moderate ongoing relief in radicular symptoms. She notes 4 days ago she had worsening cervical pain after reaching to make her bed she felt a sharp crack cc:: CC: Connie Lemus NP Review of Systems ROS Status of ROS 10 or more systems reviewed and unremarkable except as noted in history and below [facility] Medical History Endometriosis ?N80.9 - Endometriosis, unspecified (ICD-10) Osteoporosis ?M81.0 - Age-related osteoporosis without current pathological fracture (ICD-10) Asthma ?J45.909 - Unspecified asthma, uncomplicated (ICD-10) Chronic respiratory failure with hypoxia, on home O2 therapy ?J96.11 - Chronic respiratory failure with hypoxia (ICD-10) ?Z99.81 - Dependence on supplemental oxygen (ICD-10) Hiatal hernia ?K44.9 - Diaphragmatic hernia without obstruction or gangrene (ICD-10) Degenerative disc disease, lumbar ?M51.36 - Other intervertebral disc degeneration, lumbar region (ICD-10) Bipolar disorder ?F31.9 - Bipolar disorder, unspecified (ICD-10) Fibromyalgia ?M79.7 - Fibromyalgia (ICD-10) Hypothyroidism ?E03.9 - Hypothyroidism, unspecified (ICD-10) Rheumatoid arthritis ?M06.9 - Rheumatoid arthritis, unspecified (ICD-10) DM2 (diabetes mellitus, type 2) ?E11.9 - Type 2 diabetes mellitus without complications (ICD-10) Mixed hyperlipidemia ?E78.2 - Mixed hyperlipidemia (ICD-10) Essential hypertension ?I10 - Essential (primary) hypertension (ICD-10) Obesity ?E66.9 - Obesity, unspecified (ICD-10) COPD (chronic obstructive pulmonary disease) ?J44.9 - Chronic obstructive pulmonary disease, unspecified (ICD-10) Stable angina pectoris ?I20.89 - Other forms of angina pectoris (ICD-10) Surgical History H/O laparoscopy ?Z98.890 - Other specified postprocedural states (ICD-10) H/O cataract extraction ?Z98.49 - Cataract extraction status, unspecified eye (ICD-10) Hx laparoscopic cholecystectomy ?Z90.49 - Acquired absence of other specified parts of digestive tract (ICD-10) H/O cardiac catheterization ?Z98.890 - Other specified postprocedural states (ICD-10) Family History Other Breast cancer CAD (coronary artery disease) Family history of cancer Family history of diabetes mellitus Family history of hypertension Family history of myocardial infarction Social History Within the past year, how often did you have a drink containing alcohol: never Score interpretation: A score less than 3 is consistent with normal alcohol consumption. Smoking status: Never smoker Previous occupational history: retired/disability Highest level of school completed/degree received: high school graduate Little interest or pleasure in doing things: not at all Feeling down, depressed, or hopeless: not at all Gender Identity: female Meds Home Medications and Allergies Home Medications ?Medication ?Instructions ?Recorded ?Confirmed ?Type budesonide 160 mcg-glycopyr 9 2 inh inhalation BID 06/27/23 09/16/24 History mcg-formot 4.8 mcg/actuation HFA inhaler (Breztri Aerosphere) cariprazine 3 mg capsule (Vraylar) 3 mg PO QDAY 06/27/23 09/16/24 History dapagliflozin propanediol 10 mg 10 mg PO QAM 06/27/23 09/16/24 History tablet (Farxiga) diclofenac sodium 75 mg 75 mg PO Q12H 06/27/23 09/16/24 History tablet,delayed release furosemide 40 mg tablet 40 mg PO BID 06/27/23 09/16/24 History gabapentin 600 mg tablet 600 mg PO QAM 06/27/23 09/16/24 History levothyroxine 112 mcg tablet 112 mcg PO DAILY 06/27/23 09/16/24 History rosuvastatin 5 mg tablet 5 mg PO .qhs 06/27/23 09/16/24 History metoprolol tartrate 25 mg tablet 25 mg PO BID 06/28/23 09/16/24 History duloxetine 30 mg capsule,delayed 30 mg PO DAILY 09/16/24 09/16/24 History release (Cymbalta) semaglutide 0.25 mg or 0.5 mg (2 0.25 mg subcut QWEEK 09/16/24 09/16/24 History mg/3 mL) subcutaneous pen injector (Ozempic) Allergies Allergy/AdvReac Type Severity Reaction Status Date / Time ibandronate sodium (From Allergy Severe Hives Verified 09/16/24 11:31 Boniva) Sulfa (Sulfonamide Allergy Severe Anaphylaxis Verified 09/16/24 11:31 Antibiotics) Penicillins Allergy Intermediate Anaphylaxis Verified 09/16/24 11:31 Exam Constitutional Documenting provider has reviewed patient's vital signs: yes Common normals: no apparent distress, oriented x3, healthy appearing, alert and well nourished General appearance: cooperative [facility] Common normals: normocephalic, hearing grossly normal bilaterally and moist oral mucous membranes Head and scalp: normocephalic Eye Common normals: PERRL Pupil: PERRL Neck & C-Spine Common normals: full ROM General: normal visual inspection Cervical spine: cervical ROM abnormal and pain with cervical ROM Other: negative spurlings sensation intact BUE notable myofascial spasming and discomfort strength 5/5 in BUE Chest Common normals: inspection of chest normal Respiratory Common normals: normal respiratory effort, no retractions and no use of accessory muscles Neuro Common normals: oriented x3 Sensorium/orientation: alert Motor exam: no movement abnormalities noted Psych Common normals: mental status grossly normal, thought process normal, cooperative, affect normal, speech normal and activity/motor behavior normal Speech: normal speech Thought process: normal thought process Results Additional Findings Additional findings: If on a controlled substance or opioids, I have checked an OARRS report on this patient and there are no aberrancies noted in the prescribing history.??If on a controlled substance or opioid a drug screen was completed and reviewed within the last year, and if there has not been a drug screen completed we ordered one today to monitor higher risk, state monitored pain medication use. As part of providing excellent, safe, comprehensive care, the following was completed at our patient's visit: 1. A medication reconciliation and review to ensure accurate knowledge of current/active medications, including asking our patients to inform us about any zrer-orw-[id number] medications or herbal remedies/nutritional supplements/alternative remedies. 2. A review to specifically ensure our patients have had annual screening for screening for depression, screening for tobacco use, and screening for unhealthy alcohol use. For concerning screenings had a discussion with the patient, provided patient education, and recommended follow-up with primary care provider when appropriate. If patient noted with a risk of falling, they received education on strength, gait, and balance training to prevent future risk of falling. Portions of this note may have been carried over from the previous visit and updated as appropriate. Please note this office utilizes paper charting in addition to the electronic medical record. A list of current medications, vitals, and PMH is available there as the clinical staff outside of myself do not have access to [employer] charting during the clinic day operations. As part of providing quality comprehensive care the current medications, vitals, and PMH were reviewed in the paper chart. Assessment and Plan Assessment and Plan (1) Degenerative disc disease, cervical: (2) Cervical radiculopathy: (3) Cervical spondylosis: (4) Myalgia, other site: Plan left C4,5 C5,6 TFESI for cervical DDD and radiculopathy providing moderate relief on exam update cervical xray to assess recent change in pain and increased pain over the last 4 days after feeling a sharp crack as noted above. no neurological concerns. continue current medications continue HEP as tolerated f/u 1 month
== END 2024-10-10 10:54 | disposition home or self-care (01) ==
PROVIDERS: Visit Provider Nurse Practitioner
DX: M50.30 Other cervical disc degeneration, unspecified cervical region (principal); M54.12 Radiculopathy, cervical region; M47.812 Spondylosis without myelopathy or radiculopathy, cervical region; M79.10 Myalgia, unspecified site
CPT/HCPCS: G0463

== ENCOUNTER 2024-12-10 10:49 | Outpatient (OUT) | payer MEDICARE, SELFPAY ==
--- OUTSIDE RECORDS SUMMARY | 2024-11-07 10:41 | XMS_ITS ---
Author Organization [facility] in [place] Address [address] [place] [address] Care Team Providers Care Die Setter Name Role Phone Erin Tariq PA-C Primary Care Provider Unavail Manjinder Orozco [phone] REASON FOR VISIT Appointment Cancel Encounters Encounter Location Date Provider Diagnosis Pulmonary Medicine [place] [address] [place] [address] 11/07/2024 Manjinder Altman Plan Of Treatment No Information Progress Notes * Sanna CORRALES ADOB:08/1959 (64 yo F)Acc No.[id number]:11/07/2024 Patient: Milton PENA Sanna Aston :1960 A ge:64 Y S ex:Female Address:[address] [place] [address] * true * Date: Generated for Leticia kamara/Flower/eTransmitting on: 0 12/10/2024 10:55 AM EDT
--- OUTSIDE RECORDS SUMMARY | 2024-12-05 11:10 | XMS_ITS | Encounter Summary ---
Author Organization [facility] Address [address] [place] [address] Care Team Providers Care Stoper Name Role Phone Jer Rizo MD Primary Care Provider [phone] Aggie Gallardo INCLUSION MANAGER-DRIER Unavailable Jer Rizo MD Unavailable [phone] Madyosn Figueroa RN Unavailable [phone] Braeden Dunham LPC Unavailable Unavailable Reason for Visit * Reason Comments DM Foot Care Encounter Details Date Type Department Care Team (Late st Contact Info) Description 12/05/2024 11:10 AM EDT [facility] 112 [facility] 120 [place] [address] Tip Morillo, DPM 3006 [facility] 5 [place] [address] Xerosis cutis (Primary Dx); Diabetes 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, unspecified whether assistant terminal manager insulin use (HCC); Pain due to onychomycosis [...] and Family Not on file 12/04/2023 Attends Confucianist Services Not on file 12/03 Do you belong to any clubs o r organizations such as gnosticist groups, unions, fraternal or athletic groups, or [...] Recorded Patient Health Questionnaire-2 Score 0 10/23/2024 [facility] - Occupational Stress Questionnaire Answer Date Recorded [...] were you homeless or living in a skilled nursing (including now)? No 12/04/2023 Education Answer Date [...] has not been using prescribed or recommended mwpj-any-omtbhqh cream with some improvement. Pt also has [...] Allergic rhinitis due to allergen Arthritis Asthma ([facility]) Bipolar 1 disorder ([facility]) 1991 most recent episode (or current) depressed, unspecified Bronchitis Calculus of gallbladder without mention of cholecystitis or obstruction Carpal tunnel syndrome left Cataract Cholecystitis Closed fracture of ankle Congenital heart failure ([facility]) COPD (chronic obstructive pulmonary disease) ([facility]) Degeneration of lumbar or lumbosacral intervertebral disc Diabetes mellitus ([facility]) without mention of complication, type [...] bowel syndrome) Influenza with pneumonia Manic episode ([facility]) 1984 Meniere disease Morbid obesity ([facility]) Myalgia and myositis Osteoarthritis Osteoporosis Personal history of medical treatment 2013 cardiopulmonary collapse and acute respiratory failure( Respiratory failure ([facility]) Rheumatoid arthritis ([facility]) Rotator cuff tear right Skin [...] USE DIRECTED, Disp: 100 strip, Rfl: 2 Hsmxksf-Sfsunyifiau-Yjmsmkousu (Breztri Aerosphere) 160-9-4.8 MCG/ACT aerosol, Inhale 2 puffs in the morning and 2 puffs before bedtime. Rinse mouth after each use., Disp: 10.7 g, Rfl: 5 Cariprazine HCl (Vraylar) 3 MG capsule, Take 1 capsule by mouth at bedtime, Disp: 90 capsule, Rfl: 0 Continuous Glucose Apple Picker (FreeStyle Gomez 3 [place]) device, 1 Device continuously, Disp: 1 each,Rfl: [...] 0 min Stress: Stress Concern Present (12/04/2023) [place] [facility] - Occupational Stress Questionnaire Feeling of Stress : To some extent Social Connections: Unknown (12/04/2023) Social Connection and Isolation Panel [NHANES] Frequency of Communication with Friends and Family: Once a week Frequency of Social Gatherings with Friends and Family: Not on file Attends Confucianist Services: Not on file Active Member of Clubs or Organizations: No Attends Club or Organization Meetings: Never Marital Status: Intimate Partner Violence: Unknown (07/20/2023) Received from [facility] [place] [employer] Environment Fear [...] and negative PT pedal pulses NEURO: 5.07 [place] Faye monofilament test intact to digits and forefoot bilaterally 125Hz tuning fork diminished to 1st MPJ bilaterally ORTHO: Positive pain on palpation to toenails of the left 1,2,3,4,5 toes and right 1,2,3,4,5 toes ASSESSMENT 1. Diabetes 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, unspecified whether shelter insulin use (HCC) 2. Pain due to [...] AM EDT Office Visit [facility] 112 [facility] 110 [place] [address] Erin Tariq PA 112 [facility] 110 [place] [address] 12/23/2024 1:00 PM EDT Office Visit [facility] 112 [facility] 160 [place] [phone] Aggie Gallardo, INCLUSION MANAGER-DRIER 112 [facility] 160 [place] [address] 03/06/2025 10:40 AM EDT Office Visit [facility] [address] [facility] [address] [place] [address] Tip Morillo DPM 3006 [facility] 5 [place] [address] documented as of this encounter Goals Goal Patient Goal Type Associated Problems Recent Progress Patient-Stated? 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, unspecified whether assistant terminal manager insulin use (HCC) Pain due to onychomycosis of toenails of both feet Venous insufficiency Unspecified venous (peripheral) insufficiency documented in this encounter Additional Health Concerns Active Problems Noted Date Diagnosed Date Patient on antidepressant monitoring plan 2023 Assessment Noted Time PHQ-9 Depression Total Score: 15 025 12:54 PM EST documented as of this encounter Care Teams Stoper Relationship Specialty Start Date End Date Jer Rizo MD [address] [facility] [address] [place] [address] PCP - General Internal Medicine 01/03/23 Jer Rizo MD [address] [facility] 110 [place] [address] PCP - Sari HERNANDEZ 05/29/24 Aggie Gallardo APRN-DRIER [address] [facility] [address] [place] [address] Nurse Practitioner Psychiatry 06/13/24 Madyson Figueroa, BETY [address] [facility] [address] [place] [address] Registered Nurse Family Medicine 08/14/24 Braeden Dunham LPC Therapist Behavioral Health 11/25/24 documented as of this encounter
--- OUTSIDE RECORDS SUMMARY | 2024-12-10 10:55 | XMS_ITS | Encounter Summary ---
Author Organization [facility] Address [address] [facility] [place] [address] Care Team Providers Care Biodiesel Engineering Manager Name Role Phone Jer Rizo MD Primary Care Provider [phone] Aggie Gallardo HOSPICE MASSAGE THERAPIST-DIRECTOR FOOD AND BEVERAGE Unavailable Jer Rizo MD Unavailable [phone] Madyson Figueroa RN Unavailable [phone] Braeden Dunham LPC Unavailable Unavailable Encounter Details Date Type Department Care Team (Late st Contact Info) Description 10/16/2024 Abstract [facility] 112 [facility] 110 [place] [address] Jer Rizo MD 112 [facility] 110 [place] [address] Social History Tobacco Use Types Packs/Day Years Used Date Smoking Tobacco: Never Smokeless Tobacco: Never Alcohol Use Standard Drinks/Week Comments Not Currently [...] and Family Not on file 12/04/2023 Attends Religion Services Not on file 12/03 Do you belong to any clubs o r organizations such as baptist groups, unions, fraternal or athletic groups, or [...] Answer Date Recorded Patient Health Questionnaire-2 Score 2 07/30/2024 [facility] ional [facility] - Occupational Stress Questionnaire Answer Date Recorded [...] any time in the past 12 m ont, were you homeless or living in a halfway (including now)? No 12/04/2023 Education Answer Date [...] on file documented as of this encounter Plan of Treatment Upcoming Encounters Date Type Department Care Team (Late st Contact Info) Description 12/17/2024 10:30 AM EDT Office Visit [facility] [address] JOSE ARMANDO [address] [place] [address] Erin Tariq PA [address] Jose Armando 110 [place] [address] 12/23/2024 1:00 PM EDT Office Visit [facility] [address] JOSE ARMANDO [address] [place] [address] Aggie Gallardo, HOSPICE MASSAGE THERAPIST-DIRECTOR FOOD AND BEVERAGE [address] Jose Armando 160 [place] [address] 03/06/2025 10:40 AM EDT Office Visit [facility] [address] JOSE ARMANDO [address] [place] [address] Tip Morillo DPM 3006 [facility] 5 [place] [address] documented as of this encounter Goals Goal Patient Goal Type Associated Problems Recent Progress Patient-Stated? Author Help patient manage antidepressant medication Care Plan Patient on antidepressant monitoring plan No Francia Gannon MA documented as of this encounter Visit Diagnoses Not on filedocumented in this encounter Additional Health Concerns Active Problems Noted Date Diagnosed Date Patient on antidepressant monitoring plan 2023 Assessment Noted Time PHQ-9 Depression Total Score: 15 025 12:54 PM EST documented as of this encounter Care Teams Biodiesel Engineering Manager Relationship Specialty Start Date End Date Jer Rizo MD [address] [facility] 110 [place] [address] PCP - General Internal Medicine 01/03/23 Jer Rizo MD [address] [facility] 110 [place] [address] PCP - Sari HERNANDEZ 05/29/24 Aggie Gallardo APRN-DIRECTOR FOOD AND BEVERAGE [address] [facility] 160 [place] [address] Nurse Practitioner Psychiatry 06/13/24 Madyson Figueroa, BETY [address] [facility] 230 [place] [address] Registered Nurse Family Medicine 08/14/24 Braeden Dunham LPC Therapist Behavioral Health 11/25/24 documented as of this encounter
--- OUTSIDE RECORDS SUMMARY | 2024-12-10 10:55 | XMS_ITS ---
Author Organization [facility] Address [address] [facility] [place] [address] Care Team Providers Care Data Entry Operator Name Role Phone Jer Rizo MD Primary Care Provider [phone] Aggie Gallardo ORCHID HAND-TOOL AND DIE SUPERVISOR Unavailable Jer Rizo MD Unavailable [phone] Madyson Figueroa RN Unavailable [phone] Braeden Dunham LPC Unavailable Unavailable Chronic Care Management (CCM) Status:Enrolled (Active) Start date:08/14/2024 Enrollment date:08/14/2024 Overview Please assess for Care Management needs. 08/14/24, 11:07 AM - Madyson Figueroa RN- Patient gives verbal consent to be enrolled in CCM Program and understands there could be a bill for this service. CCM Bill No Case Team Name Relationship Phone Madyson Figueroa RN(Responsible Staff) Registere stephan Nurse [phone] Continued Care and Services Coordination
--- OUTSIDE RECORDS SUMMARY | 2024-12-10 10:55 | XMS_ITS | Encounter Summary ---
Author Organization [facility] Address [address] [facility] [place] [address] Care Team Providers Care Drying Frame Operator Name Role Phone Jer Rizo MD Primary Care Provider [phone] Aggie Gallardo REGULATORY COORDINATOR-GEOLOGICAL SPECIALIST Unavailable Jer Rizo MD Unavailable Madyson Figueroa RN Unavailable [phone] Braeden Dunham LPC Unavailable Unavailable Reason for Visit * Reason Comments Med Change Request Encounter Details Date Type Department Care Team (Late st Contact Info) Description 10/04/2024 Refill [facility] [address] [facility] 160 [place] [phone] Aggie Gallardo, REGULATORY COORDINATOR-GEOLOGICAL SPECIALIST [address] [facility] 160 [place], [place] [id number] JENN (generalized anxiety disorder) Social History Tobacco Use Types Packs/Day Years [...] and Family Not on file 12/04/2023 Attends Mandaeism Services Not on file 12/03 Do you belong to any clubs o r organizations such as synagogue groups, unions, fraternal or athletic groups, or [...] Recorded Patient Health Questionnaire-2 Score 2 07/30/2024 [facility] Occupat ional Health - [...] any time in the past 12 m [facility], were you homeless or living in a custodial (including now)? No 12/04/2023 Education Answer Date [...] on file documented as of this encounter Miscellaneous Notes * Telephone Encounter - Latoya Fried LPN - 10/07/2024 11:43 AM EDT May not stay on this dose documented in this encounter Plan of Treatment Upcoming Encounters Date Type Department Care Team (Late st Contact Info) Description 12/17/2024 10:30 AM EDT Office Visit [facility] [address] [facility] 110 [place] [phone] Erin Tariq PA [address] Jose Armando 110 [place] [address] 12/23/2024 1:00 PM EDT Office Visit [facility] BH [address] JOSE ARMANDO 160 [place] [address] Aggie Gallardo, REGULATORY COORDINATOR-GEOLOGICAL SPECIALIST [address] Jose Armando 160 [place] [address] 03/06/2025 10:40 AM EDT Office Visit [facility] [address] [facility] 120 [place] [address] Tip Morillo, DPYared 3006 [facility] 5 [place] [address] documented as of this encounter Goals Goal Patient Goal Type Associated Problems Recent Progress Patient-Stated? Author Help patient manage antidepressant medication Care Plan Patient on antidepressant monitoring plan Francia Bryant MA documented as of this encounter Visit Diagnoses Diagnosis JENN (generalized anxiety disorder) Generalized anxiety disorder documented in this encounter Additional Health Concerns Active Problems Noted Date Diagnosed Date Patient on antidepressant monitoring plan 2023 Assessment Noted Time PHQ-9 Depression Total Score: 15 025 12:54 PM EST documented as of this encounter Care Teams Drying Frame Operator Relationship Specialty Start Date End Date Jer Rizo MD [address] [facility] 110 [place] [address] PCP - General Internal Medicine 01/03/23 Jer Rizo MD [address] [facility] 110 [place] [address] PCP - Sari HERNANDEZ 05/29/24 Aggie Gallardo, REGULATORY COORDINATOR-GEOLOGICAL SPECIALIST [address] [facility] 160 [place] [address] Nurse Practitioner Psychiatry 06/13/24 Madyosn Figueroa, BETY [address] [facility] 230 [place] [address] Registered Nurse Family Medicine 08/14/24 Braeden Dunham LPC Therapist Behavioral Health 11/25/24 documented as of this encounter
--- OUTSIDE RECORDS SUMMARY | 2024-12-10 10:55 | XMS_ITS | Clinical Summary ---
Author Organization [employer] tem Address [id number] [address] [place] [address] Care Team Providers Care Head School Custodian Name Role Phone Jer Rizo MD Primary Care Provider [phone] Allergies Active Allergy Reactions Criticality Noted Date Comments Ibandronate Hives 01/24/2020 Penicillins Angioedema 01/24/2020 Sulfa (Sulfonamide Antibiotics) Angioedema 01/24/2020 Shortness of breath as well Medications levothyroxine (SYNTHROID, LEVOTHROID) 100 MCG tablet Take 112 mcg by mouth daily. Active busPIRone (BUSPAR) 15 mg tablet Take 1 tablet (15 mg total) by mouth in the morning and 1 tablet (15 mg total) before bedtime. Active lamoTRIgine (LaMICtal) 25 mg tablet Take 10 tablets (250 mg total) by mouth nightly. Active potassium chloride (KLOR-CON SPRINKLE) 10 MEQ CR capsule Take by mouth daily. Active metoprolol succinate XL (TOPROL-XL) 25 mg 24 hr tablet Take 1 tablet (25 mg total) by mouth in the morning and 1 tablet (25 mg total) before bedtime. Active furosemide (LASIX) 40 mg tablet Take 1 tablet (40 mg total) by mouth 2 (two) times a day. Active gabapentin (NEURONTIN) 300 mg capsule Take 1 capsule (300 mg total) by mouth nightly. Active DULoxetine (CYMBALTA) 60 mg capsule Take 90 mg by mouth daily. Active cariprazine (VRAYLAR) 6 mg capsule Take 6 mg by mouth daily. Active diclofenac (VOLTAREN) 75 mg EC tablet Take 1 tablet (75 mg total) by mouth in the morning and 1 tablet (75 mg total) before bedtime. Active trazodone HCl (TRAZODONE ORAL) Take by mouth. Active omeprazole-sodiu m bicarbonate (ZEGERID) 40-1.1 mg-gram per capsule Take 1 capsule by mouth every morning before breakfast. Active budesonide-formo teroL (SYMBICORT) 160-4.5 mcg/actuation inhaler Inhale 2 puffs in the morning and 2 puffs before bedtime. Active albuterol (PROVENTIL HFA;VENTOLIN HFA) 90 mcg/actuation inhaler Inhale 2 puffs every 6 (six) hours as needed for wheezing. Active dapagliflozin propanediol (FARXIGA ORAL) Take by mouth. Active exenatide microspheres (BYDUREON SUBQ) Inject under the skin. Active tiZANidine (ZANAFLEX) 4 mg tablet Take 1 tablet (4 mg total) by mouth every 6 (six) hours as needed for muscle spasms. Nightly Active benzonatate (TESSALON PERLES) 200 mg capsule TAKE 1 CAPSULE BY MOUTH THREE TIMES A DAY NEEDED FOR 14 DAYS 2 Active HYDROcodone-acet aminophen (NORCO) 5-325 mg per tablet TAKE 1 TABLET BY MOUTH EVERY 6 HOURS NEEDED FOR 14 DAYS 2 Active BACLOFEN ORAL Take 5 mg by mouth in the morning and 5 mg before bedtime. Active docusate sodium (COLACE) 100 mg capsule Take 1 capsule (100 mg total) by mouth in the morning and 1 capsule (100 mg total) before bedtime. Active polyethylene glycol (GLYCOLAX) 17 gram packet Take 17 g by mouth daily as needed. Active nystatin (MYCOSTATIN) powder Apply 1 Application topically in the morning and 1 Application before bedtime. Active linaGLIPtin (TRADJENTA) 5 mg tablet Take 1 tablet (5 mg total) by mouth in the morning. Active albuterol sulfate (VENTOLIN HFA INHL) Inhale. Active Social History Tobacco Use Types Packs/Day Years Used Date Smoking Tobacco: Never Smokeless Tobacco: Never Tobacco Cessation:Counseling Given: Yes Alcohol Use Standard Drinks/Week Comments Never 0 (1 standard drink = 0.6 oz pur e alcohol) AUDIT-C Answer Date Recorded Q1: How often do you have a drink containing alc ohol? Never 01/24/2020 Average Number of Drinks Not on file 020 Frequency of Binge Drinking Not on file 12/28 Childcare Answer Date Recorded Childcare Unknown 11/07/2018 Employment Answer Date Recorded Employment Unknown 11/07/2018 Purpose - Life Answer Date Recorded Purpose and direction in life Unknown Comments Unknown Sex and Gender Information Value Date Recorded Sex Assigned at Not on file Legal Sex Female 12:01 PM EDT Gender Identity Not on file Sexual Orientation Not on file Last Filed Vital Signs Vital Sign Reading Time Taken Comments Blood Pressure 116/72 02/09/2023 11:26 AM EDT Pulse 87 02/09/2023 11:26 AM EDT Temperature 36.4 C (97.6 F) 02/04/2020 2:08 PM EDT Respiratory Rate 17 02/04/2020 2:30 PM EDT Oxygen Saturation 93% 02/04/2020 3:45 PM EDT Inhaled Oxygen Concentration - - Weight 124.3 kg (274 lb) 02/09/2023 11:26 AM EDT Height 149.9 cm (4' 11 ) 02/09/2023 11:26 AM EDT Body Mass Index 55.34 02/09/2023 11:26 AM EDT Plan of Treatment Health Maintenance Due Date Last Done Comments Depression Screening 1973 DTaP,Tdap and Td Vaccines (1 - Tdap) 1980 Pap Smear 1982 Zoster (Shingles) Vaccine (1 of 2) 2011 COVID-19 Vaccine (2023-2 5 season) 2024 06/14/2022, 01/12/2021, 10/30/2020, Additional history exists Adult BMI Screening 02/10/2024 02/09/2023 Tobacco Screening 02/10/2024 02/09/2023 Influenza Vaccine 01/27/2025 03/31/2022, , 03/24/2021, Additional history exists Medical Devices Not on file Insurance MEDICAID [place] [employer] Care Teams Head School Custodian Relationship Specialty Start Date End Date Jer Rizo MD [address] [place] [phone] PCP - General Internal Medicine 01/24/20
--- OUTSIDE RECORDS SUMMARY | 2024-12-10 10:55 | XMS_ITS | Encounter Summary ---
Author Organization [facility] Address [address] [facility] [place] [address] Care Team Providers Care Head Holder Name Role Phone Jer Rizo MD Primary Care Provider [phone] Aggie Gallardo DEFLECTOR OPERATOR-SHEET METAL DUCT INSTALLER Unavailable Jer Rizo MD Unavailable [phone] Madyson Figueroa RN Unavailable [phone] Braeden Dunham LPC Unavailable Unavailable Encounter Details Date Type Department Care Team (Late st Contact Info) Description 10/16/2024 Abstract [facility] [address] [facility] 110 [place] [address] Jer Rizo MD 112 [facility] 110 [place] [address] Social History Tobacco Use Types [...] and Family Not on file 12/04/2023 Attends Jehovah'S Witness Services Not on file 12/03 Do you belong to any clubs o r organizations such as mormonism groups, unions, fraternal or athletic groups, or [...] Recorded Patient Health Questionnaire-2 Score 2 07/30/2024 [facility] of Occupat ional Health - Occupational Stress [...] were you homeless or living in a intermediate (including now)? No 12/04/2023 Education Answer Date [...] [address] JOSE ARMANDO [address] [place] [address] Erin Tariq PA [address] Jose Armando 110 [place] [address] 12/23/2024 1:00 PM EDT Office Visit [facility] [address] JOSE ARMANDO 160 [place] [address] Aggie Gallardo, DEFLECTOR OPERATOR-SHEET METAL DUCT INSTALLER [address] Jose Armando 160 [place] [address] 03/06/2025 10:40 AM EDT Office Visit [facility] [address] JOSE ARMANDO [address] [place] [address] Tip Morillo DPM 3006 [facility] 5 [place] [address] documented as of this encounter Goals Goal [...] documented as of this encounter Care Teams Head Holder Relationship Specialty Start Date End Date Jer Rizo MD [address] [email or web address] 110 [place] [address] PCP - General Internal Medicine 01/03/23 Jer Rizo MD [address] [email or web address] 110 [place] [address] PCP - Sari HERNANDEZ 05/29/24 Aggie Gallardo APRN-SHEET METAL DUCT INSTALLER [address] [facility] [[email or web address] 160 [place] [address] Nurse Practitioner Psychiatry 06/13/24 Madyson Figueroa, BETY [address] [facility] 230 [place] [address] Registered Nurse Family Medicine 08/14/24 Braeden Dunham LPC Therapist Behavioral Health 11/25/24 documented as of this encounter
--- OUTSIDE RECORDS SUMMARY | 2024-12-10 10:55 | XMS_ITS | Clinical Summary ---
Author Organization [facility] Address [address] [place] [address] Care Team Providers Care Pill Packer Name Role Phone Unavailable Primary Care Provider Unavailabl e Social History Tobacco Use Types Packs/Day Years Used Date Smoking Tobacco: Never Assessed Comments Unknown Sex and Gender Information Value Date Recorded Sex Assigned at Not on file Legal Sex Female 8:01 PM EST Gender Identity Not on file Sexual Orientation Not on file Plan of Treatment Not on file
--- OUTSIDE RECORDS SUMMARY | 2024-12-10 10:56 | XMS_ITS | Encounter Summary ---
Author Organization [facility] Address [address] [facility] [place] [address] Care Team Providers Care Systems Tester Name Role Phone Jer Rizo MD Primary Care Provider [phone] Jer Rizo MD Unavailable [phone] Aggie Gallardo EYEGLASS LENS GRINDER-CONSTRUCTION RECRUITER Unavailable Jer Rizo MD Unavailable [phone] Madyson Figueroa RN Unavailable [phone] Braeden Dunham LPC Unavailable Unavailable Encounter Details Date Type Department Care Team (Late st Contact Info) Description 06/22/2023 Abstract [facility] 112 [facility] 110 [place] [phone] Jer Rizo MD 112 [facility] 110 [place] [address] Social History Tobacco Use Types Packs/Day Years Used Date Smoking Tobacco: Never Smokeless Tobacco: Never Alcohol Use Standard Drinks/Week Comments Not Currently 0 (1 standard drink = 0.6 oz pure alcohol) Caffeine intake: 1-2 cups per day coffee, tea PHQ-2 Answer Date Recorded Patient Health Questionnaire-2 Score 4 03/22/2023 Comments Unknown Sex and Gender Information Value [...] [address] JOSE ARMANDO [address] [place] [address] Erin Tariq PA [address] Jose Armando [address] [place] [address] 12/23/2024 1:00 PM EDT Office Visit [facility] [address] JOSE ARMANDO [address] [place] [address] Aggie Gallardo, EYEGLASS LENS GRINDER-CONSTRUCTION RECRUITER [address] Jose Armando 160 [place] [address] 03/06/2025 10:40 AM EDT Office Visit [facility] [address] JOSE ARMANDO [address] [place] [address] Tip Morillo, DPYared 3[address] [facility] 5 [place] [address] documented as of this encounter Visit Diagnoses Not on filedocumented in this encounter Additional Health Concerns Assessment Noted Time PHQ-9 Depression Total Score: 20 023 12:00 PM EDT documented as of this encounter Care Teams Systems Tester Relationship Specialty Start Date End Date Jer Rizo MD [address] Jose Armando [address] [place] [address] PCP - General Internal Medicine 01/03/23 Jer Rizo MD [address] Jose Armando [address] [place] [address] PCP - Devoted 05/29/23 05/28/24 Jer Rizo MD [address] Jose Armando [address] [place] [address] PCP - Sari HERNANDEZ 05/29/24 Aggie Gallardo, EYEGLASS LENS GRINDER-CONSTRUCTION RECRUITER 112 [facility] 160 [place] [address] Nurse Practitioner Psychiatry 06/13/24 Madyson Figueroa, RN [address] [place] [address] [place] [address] Registered Nurse Family Medicine 08/14/24 Braeden Dunham LPC Therapist Behavioral Health 11/25/24 documented as of this encounter
--- OUTSIDE RECORDS SUMMARY | 2024-12-10 10:56 | XMS_ITS | Encounter Summary ---
Author Organization [facility] Address [address] [facility] [place] [address] Care Team Providers Care Newspaper Illustrator Name Role Phone Jer Rizo MD Primary Care Provider [phone] Jer Rizo MD Unavailable [phone] Aggie Gallardo FURNITURE UPHOLSTERER-CATTERY OPERATOR Unavailable Jer Rizo MD Unavailable [phone] Madyson Figueroa RN Unavailable [phone] Braeden Dunham LPC Unavailable Unavailable Encounter Details Date Type Department Care Team (Late st Contact Info) Description 06/27/2023 Abstract [facility] 112 [facility] 110 [place] [phone] Jer Rizo MD 112 [facility] 110 [place] [address] Social History Tobacco Use Types [...] [address] JOSE ARMANDO [address] [place] [address] Erin Tariq PA [address] Jose Armando [address] [place] [address] 12/23/2024 1:00 PM EDT Office Visit [facility] [address] JOSE ARMANDO [address] [place] [address] Aggie Gallardo, FURNITURE UPHOLSTERER-CATTERY OPERATOR [address] Jose Armando 160 [place] [address] 03/06/2025 10:40 AM EDT Office Visit [facility] [address] JOSE ARMANDO [address] [place] [address] Tip Morillo, DPYared [facility] 5 [place] [address] documented as of this encounter Visit Diagnoses Not on filedocumented in this encounter Additional Health Concerns Assessment Noted Time PHQ-9 Depression Total Score: 20 023 12:00 PM EDT documented as of this encounter Care Teams Newspaper Illustrator Relationship Specialty Start Date End Date Jer Rizo MD [address] Jose Armando [address] [place] [address] PCP - General Internal Medicine 01/03/23 Jer Rizo MD [address] Jose Armando [address] [place] [address] PCP - Devoted 05/29/23 05/28/24 Jer Rizo MD [address] Jose Armando [address] [place] [address] PCP - Sari HERNANDEZ 05/29/24 Aggie Gallardo, FURNITURE UPHOLSTERER-CATTERY OPERATOR 112 [facility] 160 [place] [address] Nurse Practitioner Psychiatry 06/13/24 Madyson Figueroa, RN [address] [facility] 230 [place] [address] Registered Nurse Family Medicine 08/14/24 Braeden Dunham LPC Therapist Behavioral Health 11/25/24 documented as of this encounter
--- OUTSIDE RECORDS SUMMARY | 2024-12-10 10:56 | XMS_ITS | Encounter Summary ---
Author Organization [facility] Address [address] [facility] [place] [address] Care Team Providers Care Asphalt Distributor Operator Name Role Phone Jer Rizo MD Primary Care Provider [phone] Aggie Gallardo DAY LIGHT RELIEF OPERATOR-SHORT ORDER FRY COOK Unavailable Jer Rizo MD Unavailable [phone] Madyson Figueroa RN Unavailable [phone] Braeden Dunham LPC Unavailable Unavailable Encounter Details Date Type Department Care Team (Late st Contact Info) Description 10/31/2024 Abstract [facility] 112 [facility] 110 [place] [address] Jer Rizo MD 112 [facility] 110 [place] [address] Social History Tobacco Use Types [...] and Family Not on file 12/04/2023 Attends [employer] Services Not on file 12/03 Do you belong to any clubs o r organizations such as shinto groups, unions, fraternal [...] Recorded Patient Health Questionnaire-2 Score 0 10/23/2024 [facility] of Occupat ional Health - Occupational Stress [...] were you homeless or living in a retirement (including now)? No 12/04/2023 Education Answer Date [...] [address] JOSE ARMANDO [address] [place] [address] Erin Tariq PA [address] Jose Armando [address] [place] [address] 12/23/2024 1:00 PM EDT Office Visit [facility] [address] JOSE ARMANDO [address] [place] [address] Aggie Gallardo, DAY LIGHT RELIEF OPERATOR-SHORT ORDER FRY COOK [address] Jose Armando 160 [place] [address] 03/06/2025 10:40 AM EDT Office Visit [facility] [address] JOSE ARMANDO [address] [place] [address] Tip Morillo DPM 3006 [facility] 5 [place] [address] documented as of this encounter Goals Goal [...] documented as of this encounter Care Teams Asphalt Distributor Operator Relationship Specialty Start Date End Date Jer Rizo MD [address] [facility] 110 [place] [address] PCP - General Internal Medicine 01/03/23 Jer Rizo MD [address] [facility] 110 [place] [address] PCP - Sari HERNANDEZ 05/29/24 Aggie Gallardo APRN-SHORT ORDER FRY COOK [address] [facility] 160 [place] [address] Nurse Practitioner Psychiatry 06/13/24 Madyson Figueroa, BETY [address] [facility] 230 [place] [address] Registered Nurse Family Medicine 08/14/24 Braeden [place] LPC Therapist Behavioral Health 11/25/24 documented as of this encounter
--- OUTSIDE RECORDS SUMMARY | 2024-12-10 10:56 | XMS_ITS | Encounter Summary ---
Author Organization [facility] Address [address] [facility] [place] [address] Care Team Providers Care Plastic Finisher Name Role Phone Jer Rizo MD Primary Care Provider Aggie Gallardo FIBERGLASS ROVING WINDER-UTILIZATION ENGINEER Unavailable Jer Rizo MD Unavailable [phone] Madyson Figueroa RN Unavailable [phone] Braeden Dunham LPC Unavailable Unavailable Encounter Details Date Type Department Care Team (Late st Contact Info) Description 08/08/2024 Abstract [facility] 112 [facility] 110 [place] [address] Jer Rizo MD 112 [facility] 110 [place] [address] Social History Tobacco Use Types Packs/Day Years Used Date Smoking Tobacco: Never Smokeless Tobacco: Never Alcohol Use Standard Drinks/Week Comments Not Currently 0 (1 standard drink = 0.6 oz pure alcohol) Caffeine intake: 1-2 cups per day coffee, tea B1300 Health [...] and Family Not on file 12/04/2023 Attends [employer] Not on file 12/03 Do you belong to any clubs o r organizations such as uatsdin groups, unions, fraternal or athletic groups, or [...] Recorded Patient Health Questionnaire-2 Score 2 07/30/2024 [facility] Occupat ional Health - [...] any time in the past 12 m [facility], were you homeless or living in a [...] [address] JOSE ARMANDO [address] [place] [address] Erin Tariq PA [address] Jose Armando 110 [place] [address] 12/23/2024 1:00 PM EDT Office Visit [facility] [address] JOSE ARMANDO [address] [place] [address] Aggie Gallardo, FIBERGLASS ROVING WINDER-UTILIZATION ENGINEER [address] Jose Armando [address] [place] [address] 03/06/2025 10:40 AM EDT Office Visit [facility] [address] JOSE ARMANDO [address] [place] [address] Tip Morillo DPM 3006 [facility] 5 [place] [address] documented as of this encounter Goals Goal [...] documented as of this encounter Care Teams Plastic Finisher Relationship Specialty Start Date End Date Jer Rizo MD [address] [facility] 110 [place] [address] PCP - General Internal Medicine 01/03/23 Jer Rizo MD [address] [facility] 110 [place] [address] PCP - Sari HERNANDEZ 05/29/24 Aggie Gallardo APRN-UTILIZATION ENGINEER [address] [facility] 160 [place] [address] Nurse Practitioner Psychiatry 06/13/24 Madyson Figueroa, BETY [address] [facility] 230 [place] [address] Registered Nurse Family Medicine 08/14/24 Braeden Dunham LPC Therapist Behavioral Health 11/25/24 documented as of this encounter
--- OUTSIDE RECORDS SUMMARY | 2024-12-10 10:56 | XMS_ITS | Encounter Summary ---
Author Organization [facility] Address [address] [place] [address] Care Team Providers Care Manager Account Management Name Role Phone Jer Rizo MD Primary Care Provider [phone] Aggie Gallardo BUSINESS LINE CONTROLLER-PROSTHETIC AIDES TEACHER Unavailable Jer Rizo MD Unavailable [phone] Madyson Figueroa RN Unavailable [phone] Braeden Dunham LPC Unavailable Unavailable Encounter Details Date Type Department Care Team (Late st Contact Info) Description 10/28/2024 Abstract [facility] 112 [facility] 110 [place] [address] Jer Rizo MD 112 [facility] 110 [place] [address] Social History Tobacco Use Types [...] and Family Not on file 12/04/2023 Attends [employer] Not on file 12/03 Do you [...] Recorded Patient Health Questionnaire-2 Score 0 10/23/2024 [facility] of Occupat ional Health - Occupational Stress [...] were you homeless or living in a usp (including now)? No 12/04/2023 Education Answer Date [...] [address] JOSE ARMANDO [address] [place] [address] Erin Tariq PA [address] Jose Armando 110 [place] [address] 12/23/2024 1:00 PM EDT Office Visit [facility] [address] JOSE ARMANDO [address] [place] [address] Aggie Gallardo, BUSINESS LINE CONTROLLER-PROSTHETIC AIDES TEACHER [address] Jose Armando [address] [place] [address] 03/06/2025 10:40 AM EDT Office Visit [facility] [address] JOSE ARMANDO [address] [place] [address] Tip Morillo DPM 3006 [facility] 5 [place] [address] documented as of this encounter Goals Goal [...] documented as of this encounter Care Teams Manager Account Management Relationship Specialty Start Date End Date Jer Rizo MD [address] [facility] 110 [place] [address] PCP - General Internal Medicine 01/03/23 Jer Rizo MD [address] [facility] 110 [place] [address] PCP - Sari HERNANDEZ 05/29/24 Aggie Gallardo APRN-PROSTHETIC AIDES TEACHER [address] [facility] 160 [place] [address] Nurse Practitioner Psychiatry 06/13/24 Madyson Figueroa, BETY [address] [facility] 230 [place] [address] Registered Nurse Family Medicine 08/14/24 Braeden Dunham LPC Therapist Behavioral Health 11/25/24 documented as of this encounter
--- OUTSIDE RECORDS SUMMARY | 2024-12-10 10:56 | XMS_ITS | Encounter Summary ---
Author Organization [facility] Address [address] [facility] [place] [address] Care Team Providers Care Pre Algebra Teacher Name Role Phone Jer Rizo MD Primary Care Provider [phone] Aggie Gallardo SALES SOLUTIONS ASSOCIATE-HIGH PRESSURE OPERATOR Unavailable Jer Rizo MD Unavailable [phone] Madyson Figueroa RN Unavailable [phone] Braeden Dunham LPC Unavailable Unavailable Encounter Details Date Type Department Care Team (Late st Contact Info) Description 11/15/2024 Abstract [facility] 112 [facility] 110 [place] [address] Jer Rizo MD 112 [facility] 110 [place] [address] Social History Tobacco Use Types [...] any clubs o r organizations such as hinduism groups, unions, fraternal or athletic groups, or [...] Recorded Patient Health Questionnaire-2 Score 0 10/23/2024 [facility] of Occupat ional Health - [...] were you homeless or living in a chcf (including now)? No 12/04/2023 Education Answer Date [...] [address] JOSE ARMANDO [address] [place] [address] Erin Tariq PA [address] Jose Armando 110 [place] [address] 12/23/2024 1:00 PM EDT Office Visit [facility] [address] JOSE ARMANDO [address] [place] [address] Aggie Gallardo, SALES SOLUTIONS ASSOCIATE-HIGH PRESSURE OPERATOR [address] Jose Armando 160 [place] [address] 03/06/2025 10:40 AM EDT Office Visit [facility] [address] JOSE ARMANDO [address] [place] [address] Tip Morillo DPM 3006 [facility] 5 [place] [address] documented as of this encounter Goals Goal [...] documented as of this encounter Care Teams Pre Algebra Teacher Relationship Specialty Start Date End Date Jer Rizo MD [address] [facility] 110 [place] [address] PCP - General Internal Medicine 01/03/23 Jer Rizo MD [address] [facility] 110 [place] [address] PCP - Sari HERNANDEZ 05/29/24 Aggie Gallardo APRN-HIGH PRESSURE OPERATOR [address] [facility] 160 [place] [address] Nurse Practitioner Psychiatry 06/13/24 Madyson Figueroa, BETY [address] [facility] 230 [place] [address] Registered Nurse Family Medicine 08/14/24 Braeden Dunham LPC Therapist Behavioral Health 11/25/24 documented as of this encounter
--- OUTSIDE RECORDS SUMMARY | 2024-12-10 10:56 | XMS_ITS | Encounter Summary ---
Author Organization [facility] Address [address] [facility] [place] [address] Care Team Providers Care Green Inspector Name Role Phone Jer Rizo MD Primary Care Provider [phone] Aggie Gallardo ELECTRICAL CAD DESIGNER-FOAM RUBBER MIXER Unavailable Jer Rizo MD Unavailable [phone] Madyson Figueroa RN Unavailable [phone] Braeden Dunham LPC Unavailable Unavailable Encounter Details Date Type Department Care Team (Late st Contact Info) Description 10/28/2024 Abstract [facility] 112 [facility] 110 [place] [address] Jer iRzo MD 112 [facility] 110 [place] [address] Social History Tobacco Use Types [...] and Family Not on file 12/04/2023 Attends Spiritism Services Not on file 12/03 Do you belong to any clubs o r organizations such as denominational groups, unions, fraternal or athletic groups, or [...] Recorded Patient Health Questionnaire-2 Score 0 10/23/2024 [facility] of Occupat ional Health - [...] were you homeless or living in a penitentiary (including now)? No 12/04/2023 Education Answer Date [...] [address] JOSE ARMANDO [address] [place] [address] Erin Tariq PA [address] Jose Armando 110 [place] [address] 12/23/2024 1:00 PM EDT Office Visit [facility] [address] JOSE ARMANDO 160 [place] [address] Aggie Gallardo, ELECTRICAL CAD DESIGNER-FOAM RUBBER MIXER [address] Jose Armando 160 [place] [address] 03/06/2025 10:40 AM EDT Office Visit [facility] [address] JOSE ARMANDO [address] [place] [address] Tip Morillo DPM 3006 [facility] 5 [place] [address] documented as of this encounter Goals Goal [...] documented as of this encounter Care Teams Green Inspector Relationship Specialty Start Date End Date Jer Rizo MD [address] [facility] 110 [place] [address] PCP - General Internal Medicine 01/03/23 Jer Rizo MD [address] [facility] 110 [place] [address] PCP - Sari HERNANDEZ 05/29/24 Aggie Gallardo APRN-FOAM RUBBER MIXER [address] [facility] 160 [place] [address] Nurse Practitioner Psychiatry 06/13/24 Madyson Figueroa, BETY [address] [facility] 230 [place] [address] Registered Nurse Family Medicine 08/14/24 Braeden Dunham LPC Therapist Behavioral Health 11/25/24 documented as of this encounter
--- OUTSIDE RECORDS SUMMARY | 2024-12-10 10:56 | XMS_ITS | Encounter Summary ---
Author Organization [facility] Address [address] [facility] [place] [address] Care Team Providers Care Ear Nose Throat Physician Name Role Phone Jer Rizo MD Primary Care Provider [phone] Jer Rizo MD Unavailable [phone] Aggie Gallardo FACTORY LABORER-QUALITY ASSURANCE CONSULTANT Unavailable Jer Rizo MD Unavailable [phone] Madyson Figueroa RN Unavailable [phone] Braeden Dunham LPC Unavailable Unavailable Encounter Details Date Type Department Care Team (Late st Contact Info) Description 07/18/2023 Abstract [facility] 112 [facility] 110 [place] [id number] Jer Rizo MD 112 [facility] 110 [place] [address] Social History Tobacco Use Types [...] [address] JOSE ARMANDO [address] [place] [address] Erin Tariq PA [address] Jose Armando 110 [place] [address] 12/23/2024 1:00 PM EDT Office Visit [facility] [address] JOSE ARMANDO [address] [place] [address] Aggie Gallardo, FACTORY LABORER-QUALITY ASSURANCE CONSULTANT [address] Jose Armando 160 [place] [address] 03/06/2025 10:40 AM EDT Office Visit [facility] [address] JOSE ARMANDO [address] [place] [address] Tip Morillo, DPYared 3006 [facility] 5 [place] [address] documented as of this encounter Visit Diagnoses Not on filedocumented in this encounter Additional Health Concerns Assessment Noted Time PHQ-9 Depression Total Score: 20 023 12:00 PM EDT documented as of this encounter Care Teams Ear Nose Throat Physician Relationship Specialty Start Date End Date Jer Rizo MD [address] Jose Armando [address] [place] [address] PCP - General Internal Medicine 01/03/23 Jer Rizo MD [address] Jose Armando [address] [place] [address] PCP - Devoted 05/29/23 05/28/24 Jer Rizo MD [address] Jose Armando [address] [place] [address] PCP - Sari HERNANDEZ 05/29/24 Aggie Gallardo, FACTORY LABORER-QUALITY ASSURANCE CONSULTANT 112 [facility] 160 [place] [address] Nurse Practitioner Psychiatry 06/13/24 Madyson Figueroa, RN [address] [facility] 230 [place] [address] Registered Nurse Family Medicine 08/14/24 Braeden Dunham LPC Therapist Behavioral Health 11/25/24 documented as of this encounter
--- OUTSIDE RECORDS SUMMARY | 2024-12-10 10:56 | XMS_ITS | Encounter Summary ---
Author Organization [facility] Address [address] [facility] [place] [address] Care Team Providers Care Manager Pharmacy Name Role Phone Jer Rizo MD Primary Care Provider [phone] Jer Rizo MD Unavailable [phone] Aggie Gallardo WARD SUPERVISOR-MARKETING CONTENT MANAGER Unavailable Jer Rizo MD Unavailable [phone] Madyson Figueroa RN Unavailable [phone] Braeden Dunham LPC Unavailable Unavailable Encounter Details Date Type Department Care Team (Late st Contact Info) Description 08/03/2023 Abstract [facility] 112 [facility] 110 [place] [address] Jer Rizo MD 112 [facility] 110 [place] [address] Social History Tobacco Use Types [...] [address] JOSE ARMANDO [address] [place] [address] Erin Tariq PA [address] Jose Armando 110 [place] [address] 12/23/2024 1:00 PM EDT Office Visit [facility] [address] JOSE ARMANDO [address] [place] [address] Aggie Gallardo, WARD SUPERVISOR-MARKETING CONTENT MANAGER [address] Jose Armando 160 [place] [address] 03/06/2025 10:40 AM EDT Office Visit [facility] [address] JOSE ARMANDO [address] [place] [address] Tip Morillo, DPYared 3006 [facility] 5 [place] [address] documented as of this encounter Visit Diagnoses Not on filedocumented in this encounter Additional Health Concerns Assessment Noted Time PHQ-9 Depression Total Score: 20 023 12:00 PM EDT documented as of this encounter Care Teams Manager Pharmacy Relationship Specialty Start Date End Date Jer Rizo MD [address] Jose Armando [address] [place] [address] PCP - General Internal Medicine 01/03/23 Jer Rizo MD [address] Jose Armando [address] [place] [address] PCP - Devoted 05/29/23 05/28/24 Jer Rizo MD [address] Jose Armando [address] [place] [address] PCP - Sari HERNANDEZ 05/29/24 Aggie Gallardo, WARD SUPERVISOR-MARKETING CONTENT MANAGER 112 [facility] 160 [place] [address] Nurse Practitioner Psychiatry 06/13/24 Madyson Figueroa, RN [address] [facility] 230 [place] [address] Registered Nurse Family Medicine 08/14/24 Braeden Dunham LPC Therapist Behavioral Health 11/25/24 documented as of this encounter
--- OUTSIDE RECORDS SUMMARY | 2024-12-10 10:56 | XMS_ITS | Encounter Summary ---
Author Organization [facility] Address [address] [facility] [place] [address] Care Team Providers Care Head Shipper Name Role Phone Jer Rizo MD Primary Care Provider [phone] Aggie Gallardo TELECOMMUNICATIONS FACILITY EXAMINER-AVIATION OPERATIONS SPECIALIST Unavailable Jer Rizo MD Unavailable [phone] Madyson Figueroa RN Unavailable [phone] Braeden Dunham LPC Unavailable Unavailable Encounter Details Date Type Department Care Team (Late st Contact Info) Description 08/14/2024 Abstract [facility] 112 [facility] 110 [place] [address] Jer Rizo MD 112 [facility] 110 [place] [address] Social History Tobacco Use Types [...] any clubs o r organizations such as oriental orthodox groups, unions, fraternal or athletic groups, or [...] Recorded Patient Health Questionnaire-2 Score 2 07/30/2024 [facility] of Occupat ional Health - [...] any time in the past 12 m [facility], were you homeless or living in [...] [address] JOSE ARMANDO [address] [place] [address] Erin Tariq PA [address] Jose Armando 110 [place] [address] 12/23/2024 1:00 PM EDT Office Visit [facility] [address] JOSE ARMANDO [address] [place] [address] Aggie Gallardo, TELECOMMUNICATIONS FACILITY EXAMINER-AVIATION OPERATIONS SPECIALIST [address] Jose Armando [address] [place] [address] 03/06/2025 10:40 AM EDT Office Visit [facility] [address] JOSE ARMANDO [address] [place] [address] Tip Morillo DPM [facility] 5 [place] [address] documented as of this encounter Goals Goal [...] as of this encounter Care Teams Head Shipper Relationship Specialty Start Date End Date Jer Rizo MD [address] [facility] 110 [place] [address] PCP - General Internal Medicine 01/03/23 Jer Rizo MD [address] [facility] 110 [place] [address] PCP - Sari HERNANDEZ 05/29/24 Aggie Gallardo APRN-AVIATION OPERATIONS SPECIALIST [address] [facility] 160 [place] [address] Nurse Practitioner Psychiatry 06/13/24 Madyson Figueroa, BETY [address] [facility] 230 [place] [address] Registered Nurse Family Medicine 08/14/24 Braeden Dunham LPC Therapist Behavioral Health 11/25/24 documented as of this encounter
--- OUTSIDE RECORDS SUMMARY | 2024-12-10 10:56 | XMS_ITS | Encounter Summary ---
Author Organization [facility] Address [address] [facility] [place] [address] Care Team Providers Care Medical Grade Shoemaker Name Role Phone Jer Rizo MD Primary Care Provider [phone] Jer Rizo MD Unavailable [phone] Aggie Gallardo TRAINING AND QUALITY MANAGER-FLOOR MOLDER Unavailable Jer Rizo MD Unavailable [phone] Madyson Figueroa RN Unavailable [phone] Braeden Dunham LPC Unavailable Unavailable Encounter Details Date Type Department Care Team (Late st Contact Info) Description 03/28/2023 Abstract [facility] 112 [facility] 110 [place] [phone] Jer Rizo MD 112 [facility] 110 [place] [address] Social History Tobacco Use Types [...] [address] JOSE ARMANDO [address] [place] [address] Erin Tariq PA [address] Jose Armando [address] [place] [address] 12/23/2024 1:00 PM EDT Office Visit [facility] [address] JOSE ARMANDO [address] [place] [address] Aggie Gallardo, TRAINING AND QUALITY MANAGER-FLOOR MOLDER [address] Jose Armando [address] [place] [address] 03/06/2025 10:40 AM EDT Office Visit [facility] [address] JOSE ARMANDO [address] [place] [address] Tip Morillo, DPYared 3006 [facility] 5 [place] [address] documented as of this encounter Visit Diagnoses Not on filedocumented in this encounter Additional Health Concerns Assessment Noted Time PHQ-9 Depression Total Score: 20 023 12:00 PM EDT documented as of this encounter Care Teams Medical Grade Shoemaker Relationship Specialty Start Date End Date Jer Rizo MD [address] Jose Armando [address] [place] [address] PCP - General Internal Medicine 01/03/23 Jer Rizo MD [address] Jose Armando [address] [place] [address] PCP - Devoted 05/29/23 05/28/24 Jer Rizo MD [address] Jose Armando [address] [place] [address] PCP - Sari HERNANDEZ 05/29/24 Aggie Gallardo, TRAINING AND QUALITY MANAGER-FLOOR MOLDER 112 [facility] 160 [place] [address] Nurse Practitioner Psychiatry 06/13/24 Madyson Figueroa, RN [address] [facility] 230 [place] [address] Registered Nurse Family Medicine 08/14/24 Braeden Dunham LPC Therapist Behavioral Health 11/25/24 documented as of this encounter
--- OUTSIDE RECORDS SUMMARY | 2024-12-10 10:56 | XMS_ITS | Encounter Summary ---
Author Organization [facility] Address [address] [facility] [place] [place] [address] Care Team Providers Care Service Coordinator Name Role Phone Jer Rizo MD Primary Care Provider [phone] Aggie Gallardo EMPLOYMENT ATTORNEY-MONITOR WORKER Unavailable Jer Rizo MD Unavailable [phone] Madyson Figueroa RN Unavailable [phone] Braeden Dunham LPC Unavailable Unavailable Encounter Details Date Type Department Care Team (Late st Contact Info) Description 11/13/2024 Abstract [facility] 112 [facility] 110 [place] [address] Jer Rizo MD 112 [facility] 110 [place] [address] Social History Tobacco Use Types [...] and Family Not on file 12/04/2023 Attends [employer] Services Not on file 12/03 Do you belong to any clubs o r organizations such as yazdanism groups, unions, fraternal or athletic groups, or [...] Recorded Patient Health Questionnaire-2 Score 0 10/23/2024 [facility] of Occupat ional Health - Occupational [...] [address] JOSE ARMANDO [address] [place] [address] Erin Tariq PA [address] Jose Armando [address] [place] [address] 12/23/2024 1:00 PM EDT Office Visit [facility] [address] JOSE ARMANDO [address] [place] [address] Aggie Gallardo, EMPLOYMENT ATTORNEY-MONITOR WORKER [address] Jose Armando [address] [place] [address] 03/06/2025 10:40 AM EDT Office Visit [facility] [address] JOSE ARMANDO [address] [place] [address] Tip Morillo DPM 3006 [facility] 5 [place] [address] documented as of this encounter Goals Goal [...] documented as of this encounter Care Teams Service Coordinator Relationship Specialty Start Date End Date Jer Rizo MD [address] [facility] 110 [place] [address] PCP - General Internal Medicine 01/03/23 Jer Rizo MD [address] [facility] 110 [place] [address] PCP - Sari HERNANDEZ 05/29/24 Aggie Gallardo APRN-MONITOR WORKER [address] [facility] 160 [place] [address] Nurse Practitioner Psychiatry 06/13/24 Madyson Figueroa, BETY [address] [facility] 230 [place] [address] Registered Nurse Family Medicine 08/14/24 Braeden Dunham LPC Therapist Behavioral Health 11/25/24 documented as of this encounter
--- OUTSIDE RECORDS SUMMARY | 2024-12-10 10:56 | XMS_ITS | Encounter Summary ---
Author Organization [facility] Address [address] [facility] [place] [address] Care Team Providers Care Shovel Oiler Name Role Phone Jer Rizo MD Primary Care Provider [phone] Jer Rizo MD Unavailable [phone] Aggie Gallardo FOOD SERVICE CLERK-PRECISION LENS TECHNICIAN Unavailable Jer Rizo MD Unavailable [phone] Madyson Figueroa RN Unavailable [phone] Braeden Dunham LPC Unavailable Unavailable Encounter Details Date Type Department Care Team (Late st Contact Info) Description 02/21/2023 Abstract [facility] [address] [facility] 110 [place] [id number] Jer Rizo MD 112 [facility] 110 [place] [address] Social History Tobacco Use Types Packs/Day Years Used Date Smoking Tobacco: Never Smokeless Tobacco: Never Alcohol Use Standard Drinks/Week Comments Not Currently 0 (1 standard drink = 0.6 oz pure alcohol) Caffeine intake: 1-2 cups per day coffee, tea Comments Unknown Sex and Gender Information Value [...] [address] JOSE ARMANDO 110 [place] [address] Erin Tariq PA [address] Jose Armando 110 [place] [address] 12/23/2024 1:00 PM EDT Office Visit [facility] [address] JOSE ARMANDO 160 [place] [address] Aggie Gallardo, FOOD SERVICE CLERK-PRECISION LENS TECHNICIAN [address] Jose Armando 160 [place] [address] 03/06/2025 10:40 AM EDT Office Visit [facility] [address] JOSE ARMANDO 120 [place] [address] Tip Morillo, DPM 3006 [facility] 5 [place] [address] documented as of this encounter Visit Diagnoses Not on filedocumented in this encounter Care Teams Shovel Oiler Relationship Specialty Start Date End Date Jer Rizo MD [address] [facility] 110 [place] [address] PCP - General Internal Medicine 01/03/23 Jer Rizo MD [address] [facility] 110 [place] [address] PCP - Devoted 05/29/23 05/28/24 Jer Rizo MD [address] [facility] 110 [place] [address] PCP - Sari HERNANDEZ 05/29/24 Aggie Gallardo, FOOD SERVICE CLERK-PRECISION LENS TECHNICIAN [address] Jose Armando 160 [place] [address] Nurse Practitioner Psychiatry 06/13/24 Madyson Figueroa, RN [address] Jose Armando 230 [place] [id number] Registered Nurse Family Medicine 08/14/24 Braeden Dunham LPC Therapist Behavioral Health 11/25/24 documented as of this encounter
--- OUTSIDE RECORDS SUMMARY | 2024-12-10 10:56 | XMS_ITS | Encounter Summary ---
Author Organization [facility] Address [address] [facility] [place] [address] Care Team Providers Care Sealer Dry Cell Name Role Phone Jer Rizo MD Primary Care Provider [phone] Jer Rizo MD Unavailable [phone] Aggie Gallardo RAIL WASHER-NANOTECHNOLOGY TECHNICIAN Unavailable Jer Rizo MD Unavailable [phone] Madyson Figueroa RN Unavailable [phone] Braeden Dunham LPC Unavailable Unavailable Encounter Details Date Type Department Care Team (Late st Contact Info) Description 06/27/2023 Abstract [facility] 112 [facility] 110 [place] [id number] Jer Rizo MD 112 [facility] 110 [place] [address] Social History Tobacco Use Types [...] [address] JOSE ARMANDO [address] [place] [address] Erin Tariq PA [address] Jose Armando 110 [place] [address] 12/23/2024 1:00 PM EDT Office Visit [facility] [address] JOSE ARMANDO [address] [place] [address] Aggie Gallardo, RAIL WASHER-NANOTECHNOLOGY TECHNICIAN [address] Jose Armando 160 [place] [address] 03/06/2025 10:40 AM EDT Office Visit [facility] [address] JOSE ARMANDO 120 [place] [address] Tip Morillo, DPYared 3006 [facility] 5 [place] [address] documented as of this encounter Visit Diagnoses Not on filedocumented in this encounter Additional Health Concerns Assessment Noted Time PHQ-9 Depression Total Score: 20 023 12:00 PM EDT documented as of this encounter Care Teams Sealer Dry Cell Relationship Specialty Start Date End Date Jer Rizo MD [address] Jose Armando 110 [place] [address] PCP - General Internal Medicine 01/03/23 Jer Rizo MD [address] Jose Armando 110 [place] [address] PCP - Devoted 05/29/23 05/28/24 Jer Rizo MD [address] Jose Armando 110 [place] [address] PCP - Sari HERNANDEZ 05/29/24 Aggie Gallardo, RAIL WASHER-NANOTECHNOLOGY TECHNICIAN 112 [facility] 160 [place] [address] Nurse Practitioner Psychiatry 06/13/24 Madyson Figueroa, RN [address] [facility] 230 [place] [address] Registered Nurse Family Medicine 08/14/24 Braeden Dunham LPC Therapist Behavioral Health 11/25/24 documented as of this encounter
--- OUTSIDE RECORDS SUMMARY | 2024-12-10 10:56 | XMS_ITS | Patient Health Record ---
Author Organization [facility] Address [address] [place] [address] [place] [address] Care Team Providers Care Voice And Data Technician Name Role Phone Carolynn Perez Primary Care Provider UnavailBhupinder Lugo Unavailable [phone] Reason For Referral No Information Plan Of Treatment No Information Insurance Providers Payer Name Payer Address Payer Phone Subscriber Number Group Number Insured Name Patient Relationship to Insured Coverage Start Date Coverage End Date [facility] [address] [place] [address] [id number] Sanna Edwards Self - patient is the insured
--- OUTSIDE RECORDS SUMMARY | 2024-12-10 10:56 | XMS_ITS | Encounter Summary ---
Author Organization [facility] Address [address] [facility] [place] [address] Care Team Providers Care Screen Stretcher Name Role Phone Jer Rizo MD Primary Care Provider [phone] Jer Rizo MD Unavailable [phone] Aggie Gallardo MAINTENANCE TEAM MEMBER-AUTO SERVICE MECHANIC Unavailable Jer Rizo MD Unavailable [phone] Madyson Figueroa RN Unavailable [phone] Braeden Dunham LPC Unavailable Unavailable Encounter Details Date Type Department Care Team (Late st Contact Info) Description 01/19/2023 Orders Only [facility] [address] [facility] 110 [place] [address] A, Unknown Practice [address] [place], [place] [address] Social History Tobacco Use Types Packs/Day Years [...] Encounters Date Type Department Care Team (Late Contact Info) Description 12/17/2024 10:30 AM EDT Office Visit [facility] [address] [facility] 110 [place] [address] Erin Tariq, PA [address] [facility] 110 [place] [address] 12/23/2024 1:00 PM EDT Office Visit [facility] [address] [facility] 160 [place] [address] Aggie Gallardo, MAINTENANCE TEAM MEMBER-AUTO SERVICE MECHANIC [address] [facility] 160 [place] [address] 03/06/2025 10:40 AM EDT Office Visit [facility] [address] [facility] 120 [place] [address] Tpi Morillo, DPM 3006 [facility] 5 [place] [address] documented as of this encounter Procedures Procedure Name Priority Date/Time Associated Diagnosis Comments CT ABD AND PELVIS GENERIC Routine 01/18/2023 9:37 AM EDT documented in this encounter Results * CT ABD AND PELVIS GENERIC (01/18/2023 9:37 AM EDT) Anatomical Region Laterality Modality Radiographic Josefa ging us Unknown Practice A IMG XR PROCEDURES Final Resul t documented in this encounter Visit Diagnoses Not on filedocumented in this encounter Care Teams Screen Stretcher Relationship Specialty Start Date End Date Jer Rizo MD [address] [facility] 110 [place] [address] PCP - General Internal Medicine 01/03/23 Jer Rizo MD [address] [facility] 110 [place] [address] PCP - Devoted 05/29/23 05/28/24 Jer Rizo MD [address] [facility] 110 [place] [address] PCP - Sari HERNANDEZ 05/29/24 Aggie Gallardo APRN-AUTO SERVICE MECHANIC 112 [facility] 160 [place] [address] Nurse Practitioner Psychiatry 06/13/24 Madyson Figueroa, BETY [address] [facility] 230 [place] [address] Registered Nurse Family Medicine 08/14/24 Braeden Dunham LPC Therapist Behavioral Health 11/25/24 documented as of this encounter
--- OUTSIDE RECORDS SUMMARY | 2024-12-10 10:56 | XMS_ITS | Encounter Summary ---
Author Organization [facility] Address [address] [facility] [place] [address] Care Team Providers Care Roofer Vinyl Coating Name Role Phone Jer Rizo MD Primary Care Provider [phone] Jer Rizo MD Unavailable [phone] Aggie Gallardo SECRETARY TO BOARD OF COMMISSIONERS-ROAD HOGGER OPERATOR Unavailable Jer Rizo MD Unavailable [phone] Madyson Figueroa RN Unavailable [phone] Braeden Dunham LPC Unavailable Unavailable Encounter Details Date Type Department Care Team (Late Contact Info) Description 11/03/2022 Abstract [facility] [address] [facility] 110 [place] [address] Jer Rizo MD 112 [facility] 110 [place] [address] Social History Tobacco Use Types [...] Visit [facility] [address] [facility] 110 [place] [address] Erin Tariq PA [address] [facility] 110 [place] [address] 12/23/2024 1:00 PM EDT Office Visit [facility] [address] [facility] 160 [place] [address] Aggie Gallardo, SECRETARY TO BOARD OF COMMISSIONERS-ROAD HOGGER OPERATOR [address] [facility] 160 [place] [address] 03/06/2025 10:40 AM EDT Office Visit [facility] [address] [facility] 120 [place] [address] Tip Morillo DPYared 3006 [facility] 5 [place] [address] documented as of this encounter Visit Diagnoses Not on filedocumented in this encounter Care Teams Roofer Vinyl Coating Relationship Specialty Start Date End Date Jer Rizo MD [address] [facility] 110 [place] [address] PCP - General Internal Medicine 01/03/23 Jer Rizo MD [address] [facility] 110 [place] [address] PCP - Devoted 05/29/23 05/28/24 Jer Rizo MD [address] [facility] 110 [place] [address] PCP - Sari HERNANDEZ 05/29/24 Aggie Gallardo, SECRETARY TO BOARD OF COMMISSIONERS-ROAD HOGGER OPERATOR [address] [facility] 160 [place] [address] Nurse Practitioner Psychiatry 06/13/24 Madyson Figueroa, BETY [address] [facility] 230 [place], [place] [address] Registered Nurse Family Medicine 08/14/24 Braeden Dunham LPC Therapist Behavioral Health 11/25/24 documented as of this encounter
--- OUTSIDE RECORDS SUMMARY | 2024-12-10 10:56 | XMS_ITS | Encounter Summary ---
Author Organization [facility] Address [address] [facility] [place] [address] Care Team Providers Care Research Assistant Member Name Role Phone Jer Rizo MD Primary Care Provider [phone] Jer Rizo MD Unavailable [phone] Aggie Gallardo EDUCATION INSTRUCTOR-EQUIPMENT ENGINEERING TECHNICIAN Unavailable Jer Rizo MD Unavailable [phone] Madyson Figueroa RN Unavailable [phone] Braeden Dunham LPC Unavailable Unavailable Encounter Details Date Type Department Care Team (Late st Contact Info) Description 07/11/2023 Orders Only [facility] [address] JOSE ARMANDO 110 [place] [address] A, Unknown Practice [address] [place], [place] [address] Social History Tobacco Use Types Packs/Day Years [...] [address] JOSE ARMANDO 110 [place] [address] Erin Tariq, PA [address] Jose Armando 110 [place] [address] 12/23/2024 1:00 PM EDT Office Visit [facility] [address] JOSE ARMANDO 160 [place] [address] Aggie Gallardo, EDUCATION INSTRUCTOR-EQUIPMENT ENGINEERING TECHNICIAN [address] Jose Armando 160 [place] [address] 03/06/2025 10:40 AM EDT Office Visit [facility] [address] JOSE ARMANDO 120 [place] [address] Tip Morillo DPM 3006 [facility] 5 [place] [address] documented as of this encounter Procedures Procedure Name Priority Date/Time Associated Diagnosis Comments SCANNED LABS Routine 06/27/2023 4:15 PM EST XR CHEST 1 VIEW Routine 06/27/2023 4:[address] ANGIO ABD/PEL W OR WO CONT* Routine 06/27/2023 4:[address] SCAN : ANGIOGRAM Routine 06/27/2023 3:57 PM EST documented in this encounter Results * SCANNED LABS (06/27/2023 4:15 PM EST) us Unknown Practice A LAB CHG PERFORMABLES Final Re sult * XR chest 1 view (06/27/2023 4:14 PM EST) Anatomical Region Laterality Modality Chest Radiographic Josefa ging us Unknown Practice A IMG XR PROCEDURES Final Resul t * CT ANGIO ABD/PEL W OR WO CONT* (06/27/2023 4:13 PM EST) Anatomical Region Laterality Modality Radiographic Josefa ging us Unknown Practice A IMG XR PROCEDURES Final Resul t * CT SCAN : ANGIOGRAM (06/27/2023 3:57 PM EST) Anatomical Region Laterality Modality Radiographic Josefa ging us Unknown Practice A IMG XR PROCEDURES Final Resul t documented in this encounter Visit Diagnoses Not on filedocumented in this encounter Additional Health Concerns Assessment Noted Time PHQ-9 Depression Total Score: 20 03/22/ 023 12:00 PM EDT documented as of this encounter Care Teams Research Assistant Member Relationship Specialty Start Date End Date Jer Rizo MD [address] [facility] 110 [place] [address] PCP - General Internal Medicine 01/03/23 Jer Rizo MD [address] [facility] 110 [place] [address] PCP - Devoted 05/29/23 05/28/24 Jer Rizo MD [address] [facility] 110 [place] [address] PCP - Sari HERNANDEZ 05/29/24 Aggie Gallardo APRN-EQUIPMENT ENGINEERING TECHNICIAN [address] [facility] 160 [place] [address] Nurse Practitioner Psychiatry 06/13/24 Madyson Figueroa, BETY [address] Jose Armando 230 [place] [address] Registered Nurse Family Medicine 08/14/24 Braeden Dunham LPC Therapist Behavioral Health 11/25/24 documented as of this encounter
--- OUTSIDE RECORDS SUMMARY | 2024-12-10 10:56 | XMS_ITS | Encounter Summary ---
Author Organization [facility] Address [address] [facility] [place] [address] Care Team Providers Care Tester Printed Circuit Boards Name Role Phone Jer Rizo MD Primary Care Provider [phone] Aggie Gallardo CONDENSER TESTER-LEAN ENGINEER Unavailable Jer Rizo MD Unavailable [phone] Madyson Figueroa RN Unavailable [phone] Braeden Dunham LPC Unavailable Unavailable Reason for Visit * Reason Comments Med Refill Encounter Details Date Type Department Care Team (Late st Contact Info) Description 07/31/2024 Refill [facility] [address] [facility] 110 [place] [address] Erin Tariq, PA [address] [facility] 110 [place], [place] [address] Type 2 diabetes mellitus with autonomic neuropathy, unspecified whether retirement insulin use (HCC); Chronic obstructive pulmonary disease, unspecified COPD type (HCC) Social History Tobacco Use Types Packs/Day Years [...] and Family Not on file 12/04/2023 Attends [employer] [facility] Not on file 12/03 Do you belong to any clubs o r organizations such as latter-day groups, unions, fraternal or athletic groups, or [...] Recorded Patient Health Questionnaire-2 Score 2 07/30/2024 [facility] - Occupational [...] any time in the past 12 m [facility], were you homeless or living in a [...] encounter Miscellaneous Notes * Telephone Encounter - Meg Díaz - 07/31/2024 3:11 PM EST gabapentin (Neurontin) 600 MG tablet [facility] documented in this encounter Plan of Treatment Upcoming Encounters Date Type Department Care Team (Late st Contact Info) Description 12/17/2024 10:30 AM EDT Office Visit [facility] [address] [facility] 110 [place] [address] Erin Tariq PA [address] Jose Armando 110 [place] [address] 12/23/2024 1:00 PM EDT Office Visit [facility] [address] JOSE ARMANDO 160 [place] [address] Aggie Gallardo, CONDENSER TESTER-LEAN ENGINEER [address] Jose Armando 160 [place] [address] 03/06/2025 10:40 AM EDT Office Visit [facility] [address] [facility] 120 [place] [address] Tip Morillo, DPYared 3006 [facility] 5 [place] [address] documented as of this encounter Goals Goal Patient Goal Type Associated Problems Recent Progress Patient-Stated? Author Help patient manage antidepressant medication Care Plan Patient on antidepressant monitoring plan No Francia Gannon MA documented as of this encounter Visit Diagnoses Diagnosis Type 2 diabetes mellitus with autonomic neuropathy, unspecified whether meterman insulin use (HCC) Chronic obstructive pulmonary disease, unspecified COPD type (HCC) documented in this encounter Additional Health Concerns Active Problems Noted Date Diagnosed Date Patient on antidepressant monitoring plan 2023 Assessment Noted Time PHQ-9 Depression Total Score: 15 025 12:54 PM EST documented as of this encounter Care Teams Tester Printed Circuit Boards Relationship Specialty Start Date End Date Jer Rizo MD [address] [facility] 110 [place] [address] PCP - General Internal Medicine 01/03/23 Jer Rizo MD [address] [facility] 110 [place] [address] PCP - Sari HERNANDEZ 05/29/24 Aggie Gallardo APRN-LEAN ENGINEER [address] [facility] 160 [place] [address] Nurse Practitioner Psychiatry 06/13/24 Madyson Figueroa, BETY [address] Jose Armando 230 [place] [address] Registered Nurse Family Medicine 08/14/24 Braeden Dunham LPC Therapist Behavioral Health 11/25/24 documented as of this encounter
--- OUTSIDE RECORDS SUMMARY | 2024-12-10 10:56 | XMS_ITS | Encounter Summary ---
Author Organization [facility] Address [address] [facility] [place] [address] Care Team Providers Care Clerk Telegraph Service Name Role Phone Jer Rizo MD Primary Care Provider [phone] Aggie Gallardo STONE LAYER-PROPERTY MANAGER Unavailable Jer Rizo MD Unavailable [phone] Madyson Figueroa RN Unavailable [phone] Braeden Dunham LPC Unavailable Unavailable Encounter Details Date Type Department Care Team (Late st Contact Info) Description 10/28/2024 Abstract [facility] 112 [facility] 110 [place] [address] Jer Rizo MD 112 [facility] 110 [place] [address] Social History Tobacco Use [...] and Family Not on file 12/04/2023 Attends [employer] Not on file 12/03 Do you belong to any clubs o r organizations such as jain groups, unions, fraternal or athletic groups, or [...] Recorded Patient Health Questionnaire-2 Score 0 10/23/2024 [facility] - Occupational [...] were you homeless or living in a [place] [facility] [place] (including now)? No 12/04/2023 Education Answer Date [...] [address] JOSE ARMANDO 110 [place] [address] Erin Tariq PA [address] Jose Armando 110 [place] [address] 12/23/2024 1:00 PM EDT Office Visit [facility] [address] JOSE ARMANDO 160 [place] [address] Aggie Gallardo, STONE LAYER-PROPERTY MANAGER [address] Jose Armando 160 [place] [address] 03/06/2025 10:40 AM EDT Office Visit [facility] [address] JOSE ARMANDO [address] [place] [address] Tip Morillo DPM 3006 [facility] 5 [place] [address] documented as of this encounter Goals Goal [...] documented as of this encounter Care Teams Clerk Telegraph Service Relationship Specialty Start Date End Date Jer Rizo MD [address] [facility] 110 [place] [address] PCP - General Internal Medicine 01/03/23 Jer Rizo MD [address] [facility] 110 [place] [address] PCP - Sari HERNANDEZ 05/29/24 Aggie Gallardo APRN-PROPERTY MANAGER [address] [facility] 160 [place] [address] Nurse Practitioner Psychiatry 06/13/24 Madyson Figueroa, BETY [address] [facility] 230 [place] [address] Registered Nurse Family Medicine 08/14/24 Braeden Dunham LPC Therapist Behavioral Health 11/25/24 documented as of this encounter
--- OUTSIDE RECORDS SUMMARY | 2024-12-10 10:56 | XMS_ITS | Encounter Summary ---
Author Organization [facility] Address [address] [facility] [place] [address] Care Team Providers Care Director Surgical Name Role Phone Jer Rizo MD Primary Care Provider [phone] Aggie Gallardo PRINTER FLOOR COVERING ASSISTANT-INSURANCE UNDERWRITER SALES Unavailable Jer Rizo MD Unavailable [phone] Madyson Figueroa RN Unavailable [phone] Braeden Dunham LPC Unavailable Unavailable Reason for Visit * Reason Comments Med Refill Encounter Details Date Type Department Care Team (Late st Contact Info) Description 11/09/2024 Refill [facility] [address] [facility] 160 [place] [address] Aggie Gallardo, PRINTER FLOOR COVERING ASSISTANT-INSURANCE UNDERWRITER SALES [address] [facility] 160 [place], [place] [phone] JENN (generalized anxiety disorder) Social History Tobacco [...] and Family Not on file 12/04/2023 Attends [employer] Not on file 12/03 Do you belong to any clubs o r organizations such as evangelical groups, unions, fraternal or athletic groups, or [...] Recorded Patient Health Questionnaire-2 Score 0 10/23/2024 [facility] - Occupational [...] any time in the past 12 m [facility], were you homeless or living in a [facility] (including now)? No 12/04/2023 Education Answer Date [...] FM [address] JOSE ARMANDO 110 [place] [address] Erin Tariq PA [address] Jose Armando 110 [place] [address] 12/23/2024 1:00 PM EDT Office Visit [facility] [address] JOSE ARMANDO 160 [place] [address] Daily-Aggie Seymour, PRINTER FLOOR COVERING ASSISTANT-INSURANCE UNDERWRITER SALES [address] Jose Armando 160 [place] [address] 03/06/2025 10:40 AM EDT Office Visit [facility] [address] JOSE ARMANDO 120 [place] [address] Tip Morillo DPM 3006 [facility] 5 [place] [address] documented as of this encounter Goals Goal [...] documented as of this encounter Care Teams Director Surgical Relationship Specialty Start Date End Date Jer Rizo MD [address] Jose Armando 110 [place] [address] PCP - General Internal Medicine 01/03/23 Jer Rizo MD [address] Jose Armando [address] [place] [address] PCP - Sari HERNANDEZ 05/29/24 Aggie Gallardo, PRINTER FLOOR COVERING ASSISTANT-INSURANCE UNDERWRITER SALES [address] Jose Armando 160 [place] [address] Nurse Practitioner Psychiatry 06/13/24 Madyson Figueroa, BETY [address] Jose Armando [address] [place] [address] Registered Nurse Family Medicine 08/14/24 Braeden Dunham LPC Therapist Behavioral Health 11/25/24 documented as of this encounter
--- OUTSIDE RECORDS SUMMARY | 2024-12-10 10:56 | XMS_ITS | Encounter Summary ---
Author Organization [facility] Address [address] [facility] [place] [address] Care Team Providers Care Smelter Operator Name Role Phone Jer Rizo MD Primary Care Provider [phone] Jer Rizo MD Unavailable [phone] Aggie Gallardo PUMPER HAND-SLATE TRIMMER Unavailable Jer Rizo MD Unavailable [phone] Madyson Figueroa RN Unavailable [phone] Braeden Dunham LPC Unavailable Unavailable Encounter Details Date Type Department Care Team (Late Contact Info) Description 11/03/2022 Abstract [facility] [address] [facility] 110 [place] [address] Jer Rizo MD [address] [facility] 110 [place] [address] Social History Tobacco Use Types [...] Visit [facility] [address] [email or web address] 110 [place] [address] Erin Tariq PA [address] [facility] 110 [place] [address] 12/23/2024 1:00 PM EDT Office Visit [facility] [address] [facility] [address] [place] [address] Aggie Gallardo, PUMPER HAND-SLATE TRIMMER [address] [facility] 160 [place] [address] 03/06/2025 10:40 AM EDT Office Visit [facility] POD[facility] [address] [facility] [[email or web address] 120 [place] [address] Tip Morillo DPYared [address] [facility] 5 [place] [address] documented as of this encounter Visit Diagnoses Not on filedocumented in this encounter Care Teams Smelter Operator Relationship Specialty Start Date End Date Jer Rizo MD [address] [facility] 110 [place] [address] PCP - General Internal Medicine 01/03/23 Jer Rizo MD [address] [facility] 110 [place] [address] PCP - Devoted 05/29/23 05/28/24 Jer Rizo MD [address] [facility] 110 [place] [address] PCP - Sari HERNANDEZ 05/29/24 Aggie Gallardo, PUMPER HAND-SLATE TRIMMER [address] [facility] 160 [place] [address] Nurse Practitioner Psychiatry 06/13/24 Madyson Figueroa, BETY [address] [facility] 230 [place], [place] [address] Registered Nurse Family Medicine 08/14/24 Braeden Dunham LPC Therapist Behavioral Health 11/25/24 documented as of this encounter
--- OUTSIDE RECORDS SUMMARY | 2024-12-10 10:56 | XMS_ITS | Clinical Summary ---
Author Organization [facility] Address [address] [place] [address] Care Team Providers Care First Breaker Feeder Name Role Phone Unavailable Primary Care Provider Unavailabl e Social History Tobacco Use Types Packs/Day Years Used Date Smoking Tobacco: Never Assessed [place] Safety & Environment Answer Date Rec orded Fear of Current or Ex-Partner Not on file Emotionally Abused Not on file 07/20/2023 Physically Abused Not on file 07/20/2023 Sexually Abused Not on file 07/20/2023 Physically or Sexually Abused Not on file Comments Unknown Sex and Gender Information Value Date Recorded Sex Assigned at Not on file Legal Sex Female 10:45 PM EDT Gender Identity Not on file Sexual Orientation Not on file Plan of Treatment Health Maintenance Due Date Last Done Comments CT Colonography 1961 Colonoscopy 1961 Colorectal Cancer Screening 1961 Diabetes: Hemoglobin A1C 1961 FIT-DNA 1961 FIT 1961 FOBT 1961 Medicare Annual Wellness (AWV) 1961 Sigmoidoscopy 1961 Diabetes: Retinopathy Screening 1971 Depression Screening 1973 Diabetes: Urine Protein Screening 1980 Pap Smear 1982 Adult Tetanus 1983 Cervical Cancer Screening 1991 HPV/Cotest 1991 Zoster Vaccines (1 of 2) 2011 COVID-19 Vaccine ( season) 2024 06/14/2022, 01/12/2021 Influenza Vaccine (#1) 2025 , 03/31/2022, 03/29/2022, Additional history exists Mammogram 05/17/2025 05/17/2023 Pneumococcal Vaccine: Pediatrics (0 to 5 Years) and At-Risk Patients (6 to 64 Years) Completed 06/13/2022, 02/21/2017 HIB Vaccines Aged Out No longer eligi ble based on patient's age to complete this topic HPV Vaccines Aged Out No longer eligi ble based on patient's age to complete this topic IPV Vaccines Aged Out No longer eligi ble based on patient's age to complete this topic Meningococcal B Vaccine Aged Out No l onger eligible based on patient's age to complete this topic Meningococcal Vaccine Aged Out No mike dell eligible based on patient's age to complete this topic Rotavirus Vaccines Aged Out No longer eligible based on patient's age to complete this topic Insurance [facility]
--- OUTSIDE RECORDS SUMMARY | 2024-12-10 10:56 | XMS_ITS | Encounter Summary ---
Author Organization [facility] Address [address] [facility] [place] [address] Care Team Providers Care Relief Cook Name Role Phone Jer Rizo MD Primary Care Provider [phone] Jer Rizo MD Unavailable [phone] Aggie Gallardo FIELD WORKER-DIRECTOR OF PUBLIC WORKS Unavailable Jer Rizo MD Unavailable [phone] Madyson Figueroa RN Unavailable [phone] Braeden Dunham LPC Unavailable Unavailable Encounter Details Date Type Department Care Team (Late st Contact Info) Description 07/11/2023 Abstract [facility] 112 [facility] 110 [place] [id number] Jer Rizo MD 112 [facility] 110 [place] [address] Social History Tobacco Use Types [...] [address] JOSE ARMAND[facility] 110 [place] [address] Erin Tariq PA [address] Jose [facility]ando 110 [place] [address] 12/23/2024 1:00 PM EDT Office Visit [facility] [address] [facility] 160 [place] [address] Aggie Gallardo, FIELD WORKER-DIRECTOR OF PUBLIC WORKS [address] Jose Armando 160 [place] [address] 03/06/2025 10:40 AM EDT Office Visit [facility] [address] JOSE ARM[facility]O 120 [place] [address] Tip Morillo, DPYared 3006 [facility] 5 [place] [address] documented as of this encounter Visit Diagnoses Not on filedocumented in this encounter Additional Health Concerns Assessment Noted Time PHQ-9 Depression Total Score: 20 023 12:00 PM EDT documented as of this encounter Care Teams Relief Cook Relationship Specialty Start Date End Date Jer Rizo MD [address] Jose Armando 110 [place] [address] PCP - General Internal Medicine 01/03/23 Jer Rizo MD [address] Jose Armando 110 [place] [address] PCP - Devoted 05/29/23 05/28/24 Jer Rizo MD [address] Jose Armando 110 [place] [address] PCP - Sari HERNANDEZ 05/29/24 Aggie Gallardo, FIELD WORKER-DIRECTOR OF PUBLIC WORKS 112 [facility] 160 [place] [address] Nurse Practitioner Psychiatry 06/13/24 Madyson Figueroa, RN [address] [facility] 230 [place] [address] Registered Nurse Family Medicine 08/14/24 Braeden Dunham LPC Therapist Behavioral Health 11/25/24 documented as of this encounter
--- OUTSIDE RECORDS SUMMARY | 2024-12-10 10:56 | XMS_ITS | Encounter Summary ---
Author Organization [facility] Address [address] [facility] [place] [address] Care Team Providers Care Tufter Operator Name Role Phone eJr Rizo MD Primary Care Provider [phone] Aggie Gallardo WAREHOUSE HELPER-STEEL PLATE PRINTER Unavailable Jer Rizo MD Unavailable [phone] Madyson Figueroa RN Unavailable [phone] Braeden Dunham LPC Unavailable Unavailable Encounter Details Date Type Department Care Team (Late st Contact Info) Description 10/23/2024 Abstract [facility] 112 [facility] 110 [place] [address] Jer Rizo MD 112 [facility] 110 [place] [address] Social History Tobacco Use Types [...] and Family Not on file 12/04/2023 Attends Faith Services Not on file 12/03 Do you belong to any clubs o r organizations such as mandaeism groups, unions, fraternal or athletic groups, or [...] Recorded Patient Health Questionnaire-2 Score 0 10/23/2024 [facility] of Occupat ional Health - Occupational Stress [...] any time in the past 12 m [facility], were you homeless or living in a care home (including now)? No 12/04/2023 Education Answer Date [...] on file documented as of this encounter Functional Status * Over the past 2 weeks, how often have you been bothered by any of the following problems? Question Answer Date of Assessment Author Little interest or pleasure in doing things Not at all 10/23/2024 1:55 PM EDT Melania Reyes LP N Feeling down, depressed, or hopeless Not at all 10/23/2024 1:55 PM EDT Melania Reyes LP N Patient Health Questionnaire -2 Score 0 10/23/2024 1:55 PM EDT Melania Reyes LP N documented as of this encounter Plan of Treatment Upcoming Encounters Date Type Department Care Team (Late st Contact Info) Description 12/17/2024 10:30 AM EDT Office Visit [facility] [address] JOSE ARMANDO [address] [place] [address] Erin Tariq PA [address] Jose Armando 110 [place] [address] 12/23/2024 1:00 PM EDT Office Visit [facility] [address] JOSE ARMANDO 160 [place] [address] Aggie Gallardo, WAREHOUSE HELPER-STEEL PLATE PRINTER [address] Jose Armando 160 [place] [address] 03/06/2025 10:40 AM EDT Office Visit [facility] POD[facility] [address] JOSE ARMANDO [address] [place] [address] Tip Morillo, DPM 3006 [facility] 5 [place], [place] [address] documented as of this encounter Goals Goal [...] documented as of this encounter Care Teams Tufter Operator Relationship Specialty Start Date End Date Jer Rizo MD [address] [facility] 110 [place] [address] PCP - General Internal Medicine 01/03/23 Jer Rizo MD [address] [facility] 110 [place] [address] PCP - Sari HERNANDEZ 05/29/24 Aggie Gallardo, WAREHOUSE HELPER-STEEL PLATE PRINTER [address] [facility] 160 [place] [address] Nurse Practitioner Psychiatry 06/13/24 Madyson Figueroa, BETY [address] [facility] 230 [place], [place] [address] Registered Nurse Family Medicine 08/14/24 Braeden Dunham LPC Therapist Behavioral Health 11/25/24 documented as of this encounter
--- OUTSIDE RECORDS SUMMARY | 2024-12-10 10:56 | XMS_ITS | Encounter Summary ---
Author Organization [facility] Address [address] [facility] [place] [place] [address] Care Team Providers Care Chemicals Distiller Name Role Phone Jer Rizo MD Primary Care Provider [phone] Jer Rizo MD Unavailable [phone] Aggie Gallardo RN ORTHOPAEDIC-SHEEP OR CALF GRADER Unavailable Jer Rizo MD Unavailable [phone] Madyson Figueroa RN Unavailable [phone] Braeden Dunham LPC Unavailable Unavailable Encounter Details Date Type Department Care Team (Late st Contact Info) Description 07/05/2023 Orders Only [facility] [address] JOSE ARMANDO 110 [place] [address] Unallocated, Noms Provider, [address] [place], [place] [address] Social History Tobacco Use Types Packs/Day Years [...] [address] JOSE [facility] [address] [place] [address] Erin Tariq PA [address] Jose Armando 110 [place] [address] 12/23/2024 1:00 PM EDT Office Visit [facility] [address] JOSE ARMANDO 160 [place] [address] Daily-Aggie Seymour, RN ORTHOPAEDIC-SHEEP OR CALF GRADER [address] Jose Armando 160 [place] [address] 03/06/2025 10:40 AM EDT Office Visit [facility]OD[facility] [address] JOSE ARMANDO 120 [place] [address] Tip Morillo DPM 3006 [facility] 5 [place] [address] documented as of this encounter Procedures Procedure Name Priority Date/Time Associated Diagnosis Comments ELECTROCARDIOGRAM REPORT Routine 024 9:10 AM EST documented in this encounter Results * Electrocardiogram Report (06/27/2023 9:10 AM EST) us Noms Provider Unallocated MD IN CLINIC/BEDSIDE O RDERABLES Final Result documented in this encounter Visit Diagnoses Not on filedocumented in this encounter Additional Health Concerns Assessment Noted Time PHQ-9 Depression Total Score: 20 023 12:00 PM EDT documented as of this encounter Care Teams Chemicals Distiller Relationship Specialty Start Date End Date Jer Rizo MD [address] Jose Armando 110 [place] [address] PCP - General Internal Medicine 01/03/23 Jer Rizo MD [address] Jose Armando 110 [place] [address] PCP - Devoted 05/29/23 05/28/24 Jer Rizo MD [address] [facility] 110 [place] [address] PCP - Sari HERNANDEZ 05/29/24 Aggie Gallardo, RN ORTHOPAEDIC-SHEEP OR CALF GRADER [address] [facility] 160 [place] [address] Nurse Practitioner Psychiatry 06/13/24 Madyson Figueroa, BETY [address] [facility] 230 [place] [address] Registered Nurse Family Medicine 08/14/24 Braeden Dunham LPC Therapist Behavioral Health 11/25/24 documented as of this encounter
--- OUTSIDE RECORDS SUMMARY | 2024-12-10 10:56 | XMS_ITS | Encounter Summary ---
Author Organization [facility] Address [address] [facility] [place] [address] Care Team Providers Care Internal Control Specialist Name Role Phone Jer Rizo MD Primary Care Provider [phone] Jer Rizo MD Unavailable [phone] Aggie Gallardo CERTIFIED ALCOHOL DRUG COUNSELOR-EQUIPMENT DETAILER Unavailable Jre Rizo MD Unavailable [phone] Madyson Figueroa RN Unavailable [phone] Braeden Dunham LPC Unavailable Unavailable Encounter Details Date Type Department Care Team (Late st Contact Info) Description 03/28/2023 Abstract [facility] 112 [facility] 110 [place] [address] Jer Rizo MD 112 [facility] 110 [place] [address] Social History Tobacco Use Types [...] [address] JOSE ARMANDO [address] [place] [address] Erin Tariq PA [address] Jose Armando 110 [place] [address] 12/23/2024 1:00 PM EDT Office Visit [facility] [address] JOSE ARMANDO 160 [place] [address] Aggie Gallardo, CERTIFIED ALCOHOL DRUG COUNSELOR-EQUIPMENT DETAILER [address] Jose Armando 160 [place] [address] 03/06/2025 10:40 AM EDT Office Visit [facility] PODI[facility] [address] JOSE ARMANDO 120 [place] [address] Tip Morillo, DPYared 3006 [facility] 5 [place] [address] documented as of this encounter Visit Diagnoses Not on filedocumented in this encounter Additional Health Concerns Assessment Noted Time PHQ-9 Depression Total Score: 20 023 12:00 PM EDT documented as of this encounter Care Teams Internal Control Specialist Relationship Specialty Start Date End Date Jer Rizo MD [address] Jose Armando 110 [place] [address] PCP - General Internal Medicine 01/03/23 Jer Rizo MD [address] Jose Armando 110 [place] [address] PCP - Devoted 05/29/23 05/28/24 Jer Rizo MD [address] Jose Armando 110 [place] [address] PCP - Sari HERNANDEZ 05/29/24 Aggie Gallardo, CERTIFIED ALCOHOL DRUG COUNSELOR-EQUIPMENT DETAILER 112 [facility] 160 [place] [address] Nurse Practitioner Psychiatry 06/13/24 Madyson Figueroa, RN [address] [facility] 230 [place] [address] Registered Nurse Family Medicine 08/14/24 Braeden Dunham LPC Therapist Behavioral Health 11/25/24 documented as of this encounter
--- OUTSIDE RECORDS SUMMARY | 2024-12-10 10:56 | XMS_ITS | Encounter Summary ---
Author Organization [facility] Address [address] [facility] [place] [address] Care Team Providers Care Stunner Name Role Phone Jer Rizo MD Primary Care Provider [phone] Aggie Gallardo NUCLEAR MEDICINE SPECIALIST-STATION INSTALLER Unavailable Jer Rizo MD Unavailable [phone] Mdayson Figueroa RN Unavailable [phone] Braeden Dunham LPC Unavailable Unavailable Encounter Details Date Type Department Care Team (Late st Contact Info) Description 10/02/2024 Abstract [facility] 112 [facility] 110 [place] [address] Jer Rizo MD 112 [facility] 110 [place] [address] Social History Tobacco Use Types [...] and Family Not on file 12/04/2023 Attends Rastafarian Services Not on file 12/03 Do you [...] Recorded Patient Health Questionnaire-2 Score 2 07/30/2024 [facility] of Occupat ional Health - Occupational [...] [address] JOSE ARMANDO [address] [place] [address] Erin Tariq PA [address] Jose Armando 110 [place] [address] 12/23/2024 1:00 PM EDT Office Visit [facility] [address] JOSE ARMANDO 160 [place] [address] Aggie Gallardo, NUCLEAR MEDICINE SPECIALIST-STATION INSTALLER [address] Jose Armando 160 [place] [address] 03/06/2025 10:40 AM EDT Office Visit [facility] POD[facility] [address] JOSE ARMANDO 120 [place] [address] Tip Morillo DPM 3006 [facility] 5 [place] [address] documented as of this encounter Goals Goal [...] documented as of this encounter Care Teams Stunner Relationship Specialty Start Date End Date Jer Rizo MD [address] [facility] 110 [place] [address] PCP - General Internal Medicine 01/03/23 Jer Rizo MD [address] [facility] 110 [place] [address] PCP - Sari HERNANDEZ 05/29/24 Aggie Gallardo APRN-STATION INSTALLER [address] [facility] 160 [place] [address] Nurse Practitioner Psychiatry 06/13/24 Madyson Figueroa, BETY [address] [facility] 230 [place] [address] Registered Nurse Family Medicine 08/14/24 Braeden Dunham LPC Therapist Behavioral Health 11/25/24 documented as of this encounter
--- OUTSIDE RECORDS SUMMARY | 2024-12-10 10:56 | XMS_ITS | Encounter Summary ---
Author Organization [facility] Address [address] [facility] [place] [address] Care Team Providers Care Voice Over Announcer Name Role Phone Jer Rizo MD Primary Care Provider Aggie Gallardo PILOT CAN ROUTER-REGISTERED CLIENT ASSOCIATE Unavailable Jer Rizo MD Unavailable [phone] Madyson Figueroa RN Unavailable [phone] Braeden Dunham LPC Unavailable Unavailable Encounter Details Date Type Department Care Team (Late st Contact Info) Description 10/16/2024 Abstract [facility] 112 [facility] 110 [place] [address] Jer Rizo MD 112 [facility] 110 [place] [address] Social History Tobacco Use Types [...] and Family Not on file 12/04/2023 Attends [employer] Services Not on file 12/03 Do you belong to any clubs o r organizations such as restorationist groups, unions, fraternal or athletic groups, or [...] Recorded Patient Health Questionnaire-2 Score 2 07/30/2024 [facility] of Occupat ional Health - [...] were you homeless or living in a prison (including now)? No 12/04/2023 Education Answer Date [...] [address] JOSE ARMANDO [address] [place] [address] Erin Tariq PA [address] Jose Armando 110 [place] [address] 12/23/2024 1:00 PM EDT Office Visit [facility] [address] JOSE ARMANDO 160 [place] [address] Aggie Gallardo, PILOT CAN ROUTER-REGISTERED CLIENT ASSOCIATE [address] Jose Armando 160 [place] [address] 03/06/2025 10:40 AM EDT Office Visit [facility]OD[facility] [address] JOSE ARMANDO [address] [place] [address] Tip Morillo DPM 3006 [facility] 5 [place] [address] documented as of this encounter Goals Goal [...] documented as of this encounter Care Teams Voice Over Announcer Relationship Specialty Start Date End Date Jer Rizo MD [address] [facility] 110 [place] [address] PCP - General Internal Medicine 01/03/23 Jer Rizo MD [address] [facility] 110 [place] [address] PCP - Sari HERNANDEZ 05/29/24 Aggie Gallardo APRN-REGISTERED CLIENT ASSOCIATE [address] [facility] 160 [place] [address] Nurse Practitioner Psychiatry 06/13/24 Madyson Figueroa, BETY [address] [facility] 230 [place] [address] Registered Nurse Family Medicine 08/14/24 Braeden Dunham LPC Therapist Behavioral Health 11/25/24 documented as of this encounter
--- OUTSIDE RECORDS SUMMARY | 2024-12-10 10:56 | XMS_ITS | Encounter Summary ---
Author Organization [facility] Address [address] [facility] [place] [address] Care Team Providers Care Employment Security Officer Name Role Phone Jer Rizo MD Primary Care Provider [phone] Jer Rizo MD Unavailable [phone] Aggie Gallardo OFFICE SYSTEMS TECHNOLOGY INSTRUCTOR-FAMILY SERVICES MANAGER Unavailable Jer Rizo MD Unavailable [phone] Madyson Figueroa RN Unavailable [phone] Braeden Dunham LPC Unavailable Unavailable Encounter Details Date Type Department Care Team (Late st Contact Info) Description 09/07/2023 Abstract [facility] 112 [facility] 110 [place] [address] Jer Rizo MD 112 [facility] 110 [place] [address] Social History Tobacco Use Types [...] [address] JOSE ARMANDO [address] [place] [address] Erin Tariq PA [address] Jose Armando 110 [place] [address] 12/23/2024 1:00 PM EDT Office Visit [facility] [address] JOSE ARMANDO 160 [place] [address] Aggie Gallardo, OFFICE SYSTEMS TECHNOLOGY INSTRUCTOR-FAMILY SERVICES MANAGER [address] Jose Armando 160 [place] [address] 03/06/2025 10:40 AM EDT Office Visit [facility]OD[facility] [address] JOSE ARMANDO [address] [place] [address] Tip Morillo, DPYared 3006 [facility] [place] [address] documented as of this encounter Visit Diagnoses Not on filedocumented in this encounter Additional Health Concerns Assessment Noted Time PHQ-9 Depression Total Score: 20 023 12:00 PM EDT documented as of this encounter Care Teams Employment Security Officer Relationship Specialty Start Date End Date Jer Rizo MD [address] Jose Armando 110 [place] [address] PCP - General Internal Medicine 01/03/23 Jer Rizo MD [address] Jose Armando 110 [place] [address] PCP - Devoted 05/29/23 05/28/24 Jer Rizo MD [address] Jose Armando 110 [place] [address] PCP - Sari HERNANDEZ 05/29/24 Aggie Gallardo, OFFICE SYSTEMS TECHNOLOGY INSTRUCTOR-FAMILY SERVICES MANAGER 112 [facility] 160 [place] [address] Nurse Practitioner Psychiatry 06/13/24 Madyson Figueroa, RN [address] [facility] 230 [place] [address] Registered Nurse Family Medicine 08/14/24 Braeden Dunham LPC Therapist Behavioral Health 11/25/24 documented as of this encounter
--- OUTSIDE RECORDS SUMMARY | 2024-12-10 10:57 | XMS_ITS | Encounter Summary ---
Author Organization [facility] Address [address] [facility] [place] [address] Care Team Providers Care Route Jumper Name Role Phone Jer Rizo MD Primary Care Provider Aggie Gallardo CHRONIC CONDITION NURSE-MACHINE REPAIRMAN Unavailable Jer Rizo MD Unavailable [phone] Madyson Figueroa RN Unavailable [phone] Braeden Dunham LPC Unavailable Unavailable Encounter Details Date Type Department Care Team (Late st Contact Info) Description 11/08/2024 Abstract [facility] 112 [facility] 110 [place] [address] Jer Rizo MD 112 [facility] 110 [place] [address] Social History Tobacco Use Types [...] and Family Not on file 12/04/2023 Attends Yazdanism Services Not on file 12/03 Do you belong to any clubs o r organizations such as amish groups, unions, fraternal or athletic groups, or [...] Recorded Patient Health Questionnaire-2 Score 0 10/23/2024 [facility] - Occupational Stress [...] were you homeless or living in a longterm (including now)? No 12/04/2023 Education Answer Date [...] [address] JOSE ARMANDO [address] [place] [address] Erin Tariq PA [address] [place] [address] 12/23/2024 1:00 PM EDT Office Visit [facility] [address] [place] [address] Aggie Gallardo, CHRONIC CONDITION NURSE-MACHINE REPAIRMAN [address] Jose Arm[address] [place] [address] 03/06/2025 10:40 AM EDT Office Visit [facility] [address]AND[address] [place] [address] Tip Morillo DPM 3006 [facility] 5 [place] [address] documented as of this encounter Goals Goal [...] documented as of this encounter Care Teams Route Jumper Relationship Specialty Start Date End Date Jer Rizo MD [address] [facility] 110 [place] [address] PCP - General Internal Medicine 01/03/23 Jer Rizo MD [address] [facility] 110 [place] [address] PCP - Sari HERNANDEZ 05/29/24 Aggie Gallardo APRN-MACHINE REPAIRMAN [address] [facility] 160 [place] [address] Nurse Practitioner Psychiatry 06/13/24 Madyson Figueroa, BETY [address] [facility] 230 [place] [address] Registered Nurse Family Medicine 08/14/24 Braeden Dunham LPC Therapist Behavioral Health 11/25/24 documented as of this encounter
--- OUTSIDE RECORDS SUMMARY | 2024-12-10 10:57 | XMS_ITS | Patient Health Record ---
Author Organization [facility] [place] Address [address] [place] [address] Care Team Providers Care Director Pediatric Name Role Phone Erin Tariq PA-C Primary Care Provider Unavail able [place] City[place] Unavailable [phone] Pacosa Manjinder Unavailable [phone] Allergies Allergen (clinical drug ingredient) Drug/Non Drug Allergy documented on EMR Reaction Allergy Type Onset Date Status ibandronate Boniva rash Drug Allergy Activ e Omnicef hives Drug Allergy Active Substance with sulfonamide structure and antibacterial mechanism of action (substance) Sulfa Antibiotics rash Drug Allergy Active Penicillin rash Drug Allergy Active nabumetone Relafen rash Drug Allergy Active Reason For Referral No Information Medications Medication SIG (Take, Route, Frequency, Duration) Notes Start Date End Date Status Gabapentin 600 MG TAKE 1 TABLET BY MICHAEL TH IN THE MORNING, EVENING AND BEFORE BEDTIME Oral for 90 Days Active traZODone HCl 100 MG TAKE 2 TABLETS BY M OUTH AT BEDTIME Oral for 90 Days Active HYDROcodone-Acetaminophen 5-325 MG 1 tablet as needed Orally every 6 hrs Active Vraylar 4.5 MG TAKE 1 CAPSULE BY MO UTH EVERY DAY Oral for 90 days Active Farxiga 10 MG TAKE 1 TABLET BY MICHAEL TH EVERY DAY Oral for 90 Days Active Omeprazole 20 MG 1 capsule 30 minutes before morning meal Orally Once a day Active Furosemide 40 MG TAKE 1 TABLET BY MICHAEL TH TWICE A DAY Oral for 90 Days Active Tradjenta 5 MG TAKE 1 TABLET BY MICHAEL TH EVERY DAY FOR 100 DAYS Oral for 90 Days Active Metoprolol Tartrate 25 MG TAKE 1 TABLET (25 MG) BY MOUTH IN THE MORNING AND BEFORE BEDTIME Oral for 90 Days Active DULoxetine HCl 60 MG Oral for 90 Days Active Mucinex DM 30-600 MG 1 tablet as needed Orally every 12 hrs Active busPIRone HCl 30 MG Oral for 90 Days Active Levothyroxine Sodium 112 MCG TAKE 1 TABL ET BY MOUTH ONCE A DAY AT THE SAME TIME. Oral for 90 Days Active Diclofenac Sodium 75 MG TAKE 1 TABLET BY MOUTH IN THE MORNING AND 1 TABLET BEFORE BEDTIME. DO NOT CRUSH, CHEW, OR SPLIT. Oral for 90 Days Active Baclofen 5 MG TAKE 1 TABLET BY MICHAEL TH THREE TIMES A DAY NEEDED Oral for 90 days Active LaMICtal 200 MG 1 tablet Orally Q HS Active Breztri Aerosphere 160-9-4.8 MCG/ACT Inhalation for 90 Days Activ e LaMICtal 25 MG 1 tablet Orally Q HS Active Albuterol Sulfate (2.5 MG/3ML) 0.083% INHALE 1 VIAL VIA NEBULIZER EVERY 8 HOURS Inhalation for 9 Days Active hydrOXYzine HCl 50 MG 1 tablet as needed Orally Once a day Active Albuterol Sulfate HFA 108 (90 Base) MCG/ACT 2 puffs as needed Inhalation every 4 hrs Active Januvia 100 MG 1 tablet Orally Once a day Active Immunizations Vaccine Route Administration Date Status Comme nts Arexvy Unknown 04/13/2023 Administered Flu, (03284) -historic- Whole Unknown 02/21/2024 Admini stered Flu, Flucelvax (97125) 2 yrs +, single-dose syringe (5237-4364) Unknown 04/13/2023 Administered Pneumococcal (Pneumovax 23) Unknown 02/21/2017 Administ ered SARS-COV-2 (COVID 19 Pfizer 30mcg/0.3mL) Unknown 01/12/2021 Administered Tdap Unknown 12/06/2023 Administered Social History Tobacco Use: Social History Observation Description Date Details (start date - stop date) Never Smoker NA - NA Tobacco Control (Standard) Question Answer Notes Tobacco use: Nonsmoker Problems Problem Type SNOMED Code ICD Code Onset Dates Problem Status W/U Status Risk Notes Problem Chronic respiratory failure (67224343) Chronic respiratory failure with hypoxia (J96.11) Active confirmed Problem Chronic respiratory failure (15142444) Chronic respiratory failure with hypercapnia (J96.12) Active confirmed Problem Long-term current use of inhaled steroid (467796464) nursing home (current) use of inhaled steroids (Z79.51) Active confirmed Problem Morbid obesity (334654667) Morbid obesity (E66.01) Active confirmed Problem Obstructive sleep apnea syndrome (47096300) REBECCA (obstructive sleep apnea) (G47.33) Active confirmed Problem Diabetes mellitus type 2 (disorder) (50492996) DM2 (diabetes mellitus, type 2) (E11.9) Active confirmed Problem Extreme obesity with alveolar hypoventilation (530665347) Obesity hypoventilation syndrome (E66.2) Active confirmed Problem Secondary pulmonary hypertension (05420223) Other secondary pulmonary hypertension (I27.29) Active confirmed Problem Eosinophilic asthma (260484466) Eosinophilic asthma (J82.83) Active confirmed Problem Body mass index 40+ - morbidly obese (361747900) Body mass index [BMI] 50.0-59.9, adult (Z68.43) Active confirmed Vital Signs Heart Rate 67 /min 08/06/2024 3L O2 Activity/ Resting Temperature 97.1 degrees Fahrenheit 08/06/2024 3L O 2 Activity/Resting Respiratory Rate 22 /min 08/06/2024 3L O2 Activ ity/Resting Oximetry 90 % 08/06/2024 3L O2 Activity/ Resting Blood pressure diastolic 84 mm Hg 08/06/2024 3L O2 Activity/Resting Height 59 in 08/06/2024 3L O2 Activity/ Resting Blood pressure systolic 138 mm Hg 08/06/2024 3L O 2 Activity/Resting Weight 274.4 lbs 08/06/2024 3L O2 Activity/ Resting BMI 55.42 kg/m2 08/06/2024 3L O2 Activity/ Resting Procedures Procedure Date Ordered Date Performed Result Body Sit e Six minute walk 08/06/2024 08/16/2024 N/A Encounters Encounter Location Date Provider Diagnosis Pulmonary Medicine [address] [address] 08/06/2024 Manjinder Altman REBECCA (obstructive sle ep apnea) G47.33 ; Obesity hypoventilation syndrome E66.2 ; Eosinophilic asthma J82.83 ; Chronic respiratory failure with hypoxia J96.11 ; Chronic respiratory failure with hypercapnia J96.12 ; Other secondary pulmonary hypertension I27.29 ; DM2 (diabetes mellitus, type 2) E11.9 ; Morbid obesity E66.01 ; medical terminologist (current) use of inhaled steroids Z79.51 and Body mass index [BMI] 50.0-59.9, adult Z68.43 [facility] [place] [address] [facility] [place] [address] 06/27/2024 [facility]monary [facility] [address] [place] [address] 07/09/2024 [facility] [address] [place] [place] [address] 08/06/2024 [facility] [address] [place] [address] 08/26/2024 [facility] [address] [facility] [place] [address] 09/02/2024 [facility] [address] [place] [place] [place] [address] 10/22/2024 [facility] [address] [place] [place] [address] 11/07/2024 [facility]monary [facility] [address] [place] [place] [place] [address] 11/11/2024 [facility] Assessments Encounter Date Diagnosis (ICD Code) Assessment Notes Treatment Notes Treatment Clinical Notes Section Notes 08/06/2024 REBECCA (obstructive sleep apnea) (ICD-10 - G47.33) Btly-fs-jiyl encounter performed with the patient to document continued need for PAP therapy. -Current DME: [employer] -Split-night 07/18/2023: AHI 122 (Medicare 4% rule) -unable to successfully complete titration due to development of complex sleep apnea (failed CPAP and BiPAP) -PAP titration 09/19/2023: Adaptive Auto SV titration - EEP 7, max PS 15, min PS 5 -Compliance was reviewed from 07/05/2024 - 08/03/2024 -Total days used: 0/0 (0%) -Total of all days >4 hours of use: 0/0 (0%) -Residual AHI: Likely 122 since she is not using the PAP... -Air leak (95th percentile): N/A -Mask/harness fitting: N/A -Sleep quality: As poor as baseline -Daytime hypersomnolence: Ongoing -Recommendations: Regardless of the patient's excuses, I have no evidence that the patient is using PAP. Reviewed the sleep studies. Had long discussion regarding the need for compliance with PAP therapy. She continues to retain CO2 based on ABG last year, and was worse compared to the year prior. Long-term untreated REBECCA/OHS can increase morbidity and even mortality. She needs to make a concerted effort to use the PAP - explained that Medicare looks at the compliance data and is generally not concerned why patient is not compliant. She is at risk of having the machine taken from her due to noncompliance. Addressed with the patient that if she believes there is something wrong with the PAP, she should contact the DME, not wait until she is able to come to her visit to have it addressed (as I am unable to service these devices). Will have the patient return in 3 months to readdress titration. If she has not made a concerted effort to use the PAP, I will have her return it to the DME. Patient was reminded to continue to wear the PAP @ bedtime and with any naps. -Note: This mrdd-jb-leqr visit comes with my authorization that the patient's DME may request to renew, reorder, and/or replace tubing, supplies, mask, and/or PAP device (if applicable). 08/06/2024 Obesity hypoventilation syndrome (ICD-10 - E66.2) Patient has underlying hypercapnic respiratory failure secondary to OHS. It is uncompensated as she is not using her PAP. The REBECCA/OHS is difficult to treat as she develops complex sleep apneas with traditional PAP therapy; she requires auto SV titration. If she continues not to use any therapy, there is a risk of significant morbidity and even mortality. 08/06/2024 Eosinophilic asthma (ICD-10 - J82.83) Prior treatment: Breztri > Trelegy > Breo > Advair Eosinophils: -06/27/2023: 7% / 800 -06/07/2022: 5.8% / 600 FEV1: -06/27/2023: 51% -11/06/2017: 51% -01/07/2014: 70% -02/29/2012: 85% Decline in FEV1 has somewhat stabilized. She is doing okay at this time on Breztri. Continues to have elevated eosinophils. Unfortunately, if her breathing worsens, I am not currently inclined to prescribe Biologics as she has issues with compliance and follow-up. 08/06/2024 Chronic respiratory failure with hypoxia (ICD-10 - J96.11) Droy-dj-jcqj encounter performed with the patient to document continued need for supplemental oxygen (O2). -Flow & directions: 3L/min O2 ATC -SpO2 on arrival was 70% on 3L/min today-Patient voices adherence to recommended usage: Yes-Symptom control on O2: Less shortness of breath-Counseled patient not begin, restart, or continue smoking, around the O2 due to risk of fire which could result in damage to the O2 tanks & lines, smoke inhalation and flame damage to the airway, significant shell, potential , property damage, and potential harm & to bystanders. Additionally, counseled it is not pak to begin, restart, or continue smoking given the underlying pulmonary disease that led to the point of requiring O2.-Recommendation s: She continues to have issues with ambulatory desaturations. Her oxygenation needs to be reassessed. 6-minute walk is have been ordered to identify what increase in O2 flow is necessary to maintain her saturations. Goal SpO2 is 88-92% to avoid hypoxic induced hypercapnia. 08/06/2024 Chronic respiratory failure with hypercapnia (ICD-10 - J96.12) ABG: -06/27/2023: pH 7.325, pCO2 71.6 -06/06/2022: pH 7.347, pCO2 63.7 Secondary to uncompensated REBECCA/OHS. Once again, cannot stress enough the importance of the patient to start her PAP therapy. 08/06/2024 Other secondary pulmonary hypertension (ICD-10 - I27.29) As before: Echocardiogram 06/07/2022 noted RVSP 41mmHg. Most likely group 3 (hypoxic). Treatment is treating the underlying condition. If above testing non-diagnostic, may repeat echocardiogram to see if there is further increase in RVSP to indicate the need for a right +/- left heart catheterization; mild disease noted in LAD prior cardiac catheterization 04/15/2015. 08/06/2024 DM2 (diabetes mellitus, type 2) (ICD-10 - E11.9) Steroids prescribed for this patient's underlying pulmonary disease can adversely affect blood glucose levels, inducing hyperglycemia and worsening underlying diabetes. The patient is encouraged to follow up with the primary care provider to create a plan to manage diabetes in this situation. 08/06/2024 Morbid obesity (ICD-10 - E66.01) Patient remains morbidly obese. She has gained 6 lbs since her last visit. This is inducing the restrictive pulmonary physiology. Weight loss would have a tremendous benefit in her health, especially with REBECCA/OHS on top of asthma. 08/06/2024 medical terminologist (current) use of inhaled steroids (ICD-10 - Z79.51) Patient was counseled to rinse & gargle with water after inhaled corticosteroid use. 08/06/2024 Body mass index [BMI] 50.0-59.9, adult (ICD-10 - Z68.43) 08/06/2024 Other This patient has a long-term history of noncompliance with follow-up and medical recommendations. I stressed numerous times the importance of her using the PAP to treat her extremely severe REBECCA/OHS. I explained to her if she does not use it, she is at high risk for morbidity and even mortality. If she is not using her PAP at her follow-up visit in 3 months, I will have her return to the DME for noncompliance. Additionally, she will be terminated from this practice as she is not following my recommendations. Plan Of Treatment No Information Insurance Providers Payer Name Payer Address Payer Phone Subscriber Number Group Number Insured Name Patient Relationship to Insured Coverage Start Date Coverage End Date [employer] ADV PLAN [address] [place] [address] [id number] Sanna Edwards Self - patient is the insured MEDICAID [place] 2ND INS [address] OFF[place], [place] [id number] Sanna Edwards Self - patient is the insured Medical (General) History Medical History History ICD Code REBECCA (obstructive sleep apnea) G47.33 Obesity hypoventilation syndrome E66.2 Chronic respiratory failure with hypoxia J96.11 Chronic respiratory failure with hyperca pnia J96.12 Eosinophilic asthma J82.83 Other secondary pulmonary hypertension I 27.29 CAD (coronary artery disease) I25.10 DM2 (diabetes mellitus, type 2) E11.9 Deviated nasal septum J34.2 nursing home (current) use of inhaled stero ids Z79.51 Morbid obesity E66.01 Surgical History Surgery Date(Month/Year) tonsillectomy rotator cuff tear repair-right cholecystectomy carpal tunnel release-left right knee arthroscopy excision of breast mass Cardiac Catheterization 04/15/2015 Hospitalization History Reason Date(Month/Year) Acute Respiratory Failure-TB 06/08/2022
--- OUTSIDE RECORDS SUMMARY | 2024-12-10 10:57 | XMS_ITS | Encounter Summary ---
Author Organization [facility] Address [address] [facility] [place] [address] Care Team Providers Care Call Center Supervisor Name Role Phone Jer Rizo MD Primary Care Provider [phone] Aggie Gallardo ART FRAMING MANAGER-FLAT HAMMERER Unavailable Jer Rizo MD Unavailable [phone] Madyson Figueroa RN Unavailable [phone] Braeden Dunham LPC Unavailable Unavailable Encounter Details Date Type Department Care Team (Late st Contact Info) Description 11/07/2024 Abstract [facility] 112 [facility] 110 [place] [address] Jer Rizo MD 112 [facility] 110 [place] [address] Social History Tobacco Use Types [...] and Family Not on file 12/04/2023 Attends Anabaptism Services Not on file 12/03 Do you belong to any clubs o r organizations such as sikh groups, unions, fraternal or athletic groups, or [...] Recorded Patient Health Questionnaire-2 Score 0 10/23/2024 [facility] Occupat ional Health - Occupational [...] [address] [place] [address] Erin Tariq PA [address] [place] [address] 12/23/2024 1:00 PM EDT Office Visit [facility] [address] [address] [place] [address] Aggie Gallardo, ART FRAMING MANAGER-FLAT HAMMERER [address] [place] [address] 03/06/2025 10:40 AM EDT Office Visit [facility] [address] [place] [address] Tip Morillo DPM 3006 [facility] 5 [place] [address] documented as of this encounter Goals Goal [...] documented as of this encounter Care Teams Call Center Supervisor Relationship Specialty Start Date End Date Jer Rizo MD [address] [facility] 110 [place] [address] PCP - General Internal Medicine 01/03/23 Jer Rizo MD [address] [facility] 110 [place] [address] PCP - Sari HERNANDEZ 05/29/24 Aggie Gallardo APRN-FLAT HAMMERER [address] [facility] 160 [place] [address] Nurse Practitioner Psychiatry 06/13/24 Madyson Figueroa, BETY [address] [facility] 230 [place] [address] Registered Nurse Family Medicine 08/14/24 Braeden Dunham LPC Therapist Behavioral Health 11/25/24 documented as of this encounter
--- OUTSIDE RECORDS SUMMARY | 2024-12-10 10:57 | XMS_ITS | Encounter Summary ---
Author Organization [facility] Address [address] [facility] [place] [address] Care Team Providers Care Product Marketer Name Role Phone Jer Rizo MD Primary Care Provider [phone] Aggie Gallardo MANAGER DATABASE ADMINISTRATION-INFORMATION MANAGEMENT SPECIALIST Unavailable Jer Rizo MD Unavailable Madyson Figueroa RN Unavailable [phone] Braeden Dunham LPC Unavailable Unavailable Encounter Details Date Type Department Care Team (Late st Contact Info) Description 11/06/2024 Abstract [facility] 112 [facility] 110 [place] [address] Jer Rizo MD 112 [facility] 110 [place] [address] Social History Tobacco Use Types [...] and Family Not on file 12/04/2023 Attends Catholic Services Not on file 12/03 Do you belong to any clubs o r organizations such as bahai groups, unions, fraternal or athletic groups, or [...] Recorded Patient Health Questionnaire-2 Score 0 10/23/2024 [facility] Occupat ional Health - [...] [address] [address] [place] [address] Erin Tariq PA [address] [place] [address] 12/23/2024 1:00 PM EDT Office Visit [facility] [address] [place] [address] [place] [address] Aggie Gallardo, MANAGER DATABASE ADMINISTRATION-INFORMATION MANAGEMENT SPECIALIST [address] [place] [address] 03/06/2025 10:40 AM EDT Office Visit [facility] [address] [place] [address] [place] [address] Tip Morillo DPM [facility] [facility] 5 [place] [address] documented as of this encounter Goals Goal [...] documented as of this encounter Care Teams Product Marketer Relationship Specialty Start Date End Date Jer Rizo MD [address] [facility] 110 [place] [address] PCP - General Internal Medicine 01/03/23 Jer Rizo MD [address] [facility] 110 [place] [address] PCP - Sari HERNANDEZ 05/29/24 Aggie Gallardo APRN-INFORMATION MANAGEMENT SPECIALIST [address] [facility] 160 [place] [address] Nurse Practitioner Psychiatry 06/13/24 Madyson Figueroa, BETY [address] [facility] 230 [place] [address] Registered Nurse Family Medicine 08/14/24 Braeden Dunham LPC Therapist Behavioral Health 11/25/24 documented as of this encounter
--- OUTSIDE RECORDS SUMMARY | 2024-12-10 10:57 | XMS_ITS | Encounter Summary ---
Author Organization [facility] Address [address] [facility] [place] [address] Care Team Providers Care Anti Air Warfare Operations Officer Name Role Phone Jer Rizo MD Primary Care Provider [phone] Aggie Gallardo INVESTIGATOR WELFARE-SEED TESTER Unavailable Jer Rizo MD Unavailable [phone] Madyson Figueroa RN Unavailable [phone] Braeden Dunham LPC Unavailable Unavailable Encounter Details Date Type Department Care Team (Late st Contact Info) Description 11/15/2024 Abstract [facility] 112 [facility] 110 [place] [address] Jer Rizo MD 112 [facility] 110 [place] [address] Social History Tobacco Use Types [...] and Family Not on file 12/04/2023 Attends Congregation Services Not on file 12/03 Do you [...] Recorded Patient Health Questionnaire-2 Score 0 10/23/2024 [facility] of Occupat ional Health - Occupational [...] [address] [address] [place] [address] Erin Tariq PA [address] [place] [address] 12/23/2024 1:00 PM EDT Office Visit [facility] [address] [place] [address] [place] [address] Agige Gallardo, INVESTIGATOR WELFARE-SEED TESTER [address] [place] [address] 03/06/2025 10:40 AM EDT Office Visit [facility] [address] [place] [address] Tip Morillo DPM 3006 [facility] 5 [place] [address] documented as of this encounter Goals Goal [...] documented as of this encounter Care Teams Anti Air Warfare Operations Officer Relationship Specialty Start Date End Date Jer Rizo MD [address] [facility] 110 [place] [address] PCP - General Internal Medicine 01/03/23 Jer Rizo MD [address] [facility] [address] [place] [address] PCP - Sari HERNANDEZ 05/29/24 Aggie Gallardo APRN-SEED TESTER [address] [facility] 160 [place] [address] Nurse Practitioner Psychiatry 06/13/24 Madyson Figueroa, BETY [address] [facility] 230 [place] [address] Registered Nurse Family Medicine 08/14/24 Braeden Dunham LPC Therapist Behavioral Health 11/25/24 documented as of this encounter
--- OUTSIDE RECORDS SUMMARY | 2024-12-10 10:57 | XMS_ITS | Encounter Summary ---
Author Organization [facility] Address [address] [facility] [place] [address] Care Team Providers Care Ramp Supervisor Name Role Phone Jer Rizo MD Primary Care Provider [phone] Aggie Gallardo SHOES SALESPERSON-GRADUATE TEACHING ASSISTANT Unavailable Jer Rizo MD Unavailable [phone] Madyson Figueroa RN Unavailable [phone] Braeden Dunham LPC Unavailable Unavailable Encounter Details Date Type Department Care Team (Late st Contact Info) Description 11/04/2024 Abstract [facility] 112 [facility] 110 [place] [address] Jer Rizo MD 112 [facility] 110 [place] [address] Social History Tobacco Use Types [...] and Family Not on file 12/04/2023 Attends Yarsanism Services Not on file 12/03 Do you belong to any clubs o r organizations such as lutheran groups, unions, fraternal or athletic groups, or [...] were you homeless or living in a fci (including now)? No 12/04/2023 Education Answer Date [...] [address] JOSE ARMANDO 110 [place] [address] Erin Tariq PA [address] Jose Armando 110 [place] [address] 12/23/2024 1:00 PM EDT Office Visit [facility] [address] JOSE ARMANDO [address] [place] [address] Aggie Gallardo, SHOES SALESPERSON-GRADUATE TEACHING ASSISTANT [address] Jose Armando 160 [place] [address] 03/06/2025 10:40 AM EDT Office Visit [facility] [address] JOSE ARMANDO [address] [place] [address] Tip Morillo DPM 3006 [facility] 5 [place] [address] documented as of this encounter Goals Goal [...] documented as of this encounter Care Teams Ramp Supervisor Relationship Specialty Start Date End Date Jer Rizo MD [address] [facility] 110 [place] [address] PCP - General Internal Medicine 01/03/23 Jer Rizo MD [address] [facility] 110 [place] [address] PCP - Sari HERNANDEZ 05/29/24 Aggie Gallardo APRN-GRADUATE TEACHING ASSISTANT [address] [facility] 160 [place] [address] Nurse Practitioner Psychiatry 06/13/24 Madyson Figueroa, BETY [address] [facility] 230 [place] [address] Registered Nurse Family Medicine 08/14/24 Braeden Dunham LPC Therapist Behavioral Health 11/25/24 documented as of this encounter
--- OUTSIDE RECORDS SUMMARY | 2024-12-10 10:57 | XMS_ITS | Encounter Summary ---
Author Organization [facility] Address [address] [facility] [place] [address] Care Team Providers Care Machine Folder Name Role Phone Jer Rizo MD Primary Care Provider [phone] Aggie Gallardo SPORTS MARKETING COORDINATOR-MEDICAID COLLECTION SPECIALIST Unavailable Jer Rizo MD Unavailable [phone] Madyson Figueroa RN Unavailable [phone] Braeden Dunham LPC Unavailable Unavailable Encounter Details Date Type Department Care Team (Late st Contact Info) Description 11/15/2024 Abstract [facility] 112 [facility] 110 [place] [address] Jer Rizo MD 112 [facility] 110 [place] [address] Social History Tobacco Use Types [...] and Family Not on file 12/04/2023 Attends Baptism Services Not on file 12/03 Do you belong to any clubs o r organizations such as confucianist groups, unions, fraternal or athletic groups, or [...] Recorded Patient Health Questionnaire-2 Score 0 10/23/2024 [facility] of Occupat ional Health - [...] [address] JOSE ARMANDO [address] [place] [address] Erin Tariq PA [address] Jose Armando 110 [place] [address] 12/23/2024 1:00 PM EDT Office Visit [facility] [address] JOSE ARMANDO [address] [place] [address] Aggie Gallardo, SPORTS MARKETING COORDINATOR-MEDICAID COLLECTION SPECIALIST [address] Jose Armando 160 [place] [address] 03/06/2025 10:40 AM EDT Office Visit [facility] [address] JOSE ARMANDO [address] [place] [address] Tip Morillo DPM 3006 [facility] [place] [address] documented as of this encounter Goals Goal [...] documented as of this encounter Care Teams Machine Folder Relationship Specialty Start Date End Date Jer Rizo MD [address] [facility] 110 [place] [address] PCP - General Internal Medicine 01/03/23 Jer Rizo MD [address] [facility] 110 [place] [address] PCP - Sari HERNANDEZ 05/29/24 Aggie Gallardo APRN-MEDICAID COLLECTION SPECIALIST [address] [facility] 160 [place] [address] Nurse Practitioner Psychiatry 06/13/24 Madyson Figueroa, BETY [address] [facility] 230 [place] [address] Registered Nurse Family Medicine 08/14/24 Braeden Dunham LPC Therapist Behavioral Health 11/25/24 documented as of this encounter
--- OUTSIDE RECORDS SUMMARY | 2024-12-10 10:57 | XMS_ITS | Encounter Summary ---
Author Organization [facility] Address [address] [facility] [place] [place] [address] Care Team Providers Care Software Quality Automation Engineer Name Role Phone Jer Rizo MD Primary Care Provider [phone] Aggie Gallardo FINISHER POLISHER-RESOURCE DIRECTOR Unavailable Jer Rizo MD Unavailable [phone] Madyson Figueroa RN Unavailable [phone] Braeden Dunham LPC Unavailable Unavailable Encounter Details Date Type Department Care Team (Late st Contact Info) Description 11/15/2024 Abstract [facility] 112 [facility] 110 [place] [address] Jer Rizo MD 112 [facility] 110 [place] [address] Social History Tobacco Use Types [...] and Family Not on file 12/04/2023 Attends Restorationist Services Not on file 12/03 Do you belong to any clubs o r organizations such as christian groups, unions, fraternal or athletic groups, or [...] Recorded Patient Health Questionnaire-2 Score 0 10/23/2024 [facility] of Occupat ional Health - [...] [address] JOSE ARMANDO [address] [place] [address] Erin Tariq PA [address] Jose Armando 110 [place] [address] 12/23/2024 1:00 PM EDT Office Visit [facility] [address] JOSE ARMANDO [address] [place] [address] Aggie Gallardo, FINISHER POLISHER-RESOURCE DIRECTOR [address] Jose Armando 160 [place] [address] 03/06/2025 10:40 AM EDT Office Visit [facility] [address] JOSE ARMANDO [address] [place] [address] Tip Morillo DPM 3006 [facility] 5 [place] [address] documented as of this encounter Goals Goal [...] documented as of this encounter Care Teams Software Quality Automation Engineer Relationship Specialty Start Date End Date Jer Rizo MD [address] [facility] 110 [place] [address] PCP - General Internal Medicine 01/03/23 Jer Rizo MD [address] [facility] 110 [place] [address] PCP - Sari HERNANDEZ 05/29/24 Aggie Gallardo APRN-RESOURCE DIRECTOR [address] [facility] 160 [place] [address] Nurse Practitioner Psychiatry 06/13/24 Madyson Figueroa, BETY [address] [facility] 230 [place] [address] Registered Nurse Family Medicine 08/14/24 Braeden Dunham LPC Therapist Behavioral Health 11/25/24 documented as of this encounter
--- OUTSIDE RECORDS SUMMARY | 2024-12-10 10:57 | XMS_ITS | Encounter Summary ---
Author Organization [facility] Address [address] [place] [address] Care Team Providers Care Power Electronics Research Engineer Name Role Phone Jer Rizo MD Primary Care Provider [phone] Aggie Gallardo SETTER MACHINE-RIVER CAPTAIN Unavailable Jer Rizo MD Unavailable [phone] Madyson Figueroa RN Unavailable [phone] Braeden Dunham LPC Unavailable Unavailable Encounter Details Date Type Department Care Team (Late st Contact Info) Description 12/02/2024 Abstract [facility] 112 [facility] 110 [place] [address] Jer Rizo MD 112 [facility] 110 [place] [address] Social History Tobacco Use Types [...] and Family Not on file 12/04/2023 Attends Shinto Services Not on file 12/03 Do you [...] [address] JOSE ARMANDO [address] [place] [address] Erin Tariq PA [address] Jose Armando 110 [place] [address] 12/23/2024 1:00 PM EDT Office Visit [facility] [address] JOSE ARMANDO [address] [place] [address] Aggie Gallardo, SETTER MACHINE-RIVER CAPTAIN [address] Jose Armando 160 [place] [address] 03/06/2025 10:40 AM EDT Office Visit [facility] [address] JOSE ARMANDO [address] [place] [address] Tip Morillo DPM 3006 [facility] 5 [place] [address] documented as of this encounter Goals Goal [...] documented as of this encounter Care Teams Power Electronics Research Engineer Relationship Specialty Start Date End Date Jer Rizo MD [address] [facility] 110 [place] [address] PCP - General Internal Medicine 01/03/23 Jer Rizo MD [address] [facility] 110 [place] [address] PCP - Sari HERNANDEZ 05/29/24 Aggie Gallardo APRN-RIVER CAPTAIN [address] [facility] 160 [place] [address] Nurse Practitioner Psychiatry 06/13/24 Madyson Figueroa, BETY [address] [facility] 230 [place] [address] Registered Nurse Family Medicine 08/14/24 Braeden Dunham LPC Therapist Behavioral Health 11/25/24 documented as of this encounter
--- OUTSIDE RECORDS SUMMARY | 2024-12-10 10:57 | XMS_ITS | Encounter Summary ---
Author Organization [facility] Address [address] [facility] [place] [address] Care Team Providers Care Logistics Planner Name Role Phone Jer Rizo MD Primary Care Provider [phone] Aggie Gallardo LOADING CHECKER-STAIN MAKER Unavailable Jer Rizo MD Unavailable [phone] Madyson Figueroa RN Unavailable [phone] Braeden Dunham LPC Unavailable Unavailable Encounter Details Date Type Department Care Team (Late st Contact Info) Description 10/31/2024 Abstract [facility] 112 [facility] 110 [place] [address] Jer Rizo MD 112 [facility] 110 [place] [address] Social History Tobacco Use Types [...] and Family Not on file 12/04/2023 Attends Worship Services Not on file 12/03 Do you belong to any clubs o r organizations such as orthodoxy groups, unions, fraternal or athletic groups, or [...] Patient Health Questionnaire-2 Score 0 10/23/2024 [facility] of Occupat ional Health - Occupational [...] were you homeless or living in a assisted (including now)? No 12/04/2023 Education Answer Date [...] [address] JOSE ARMANDO [address] [place] [address] Erin Tariq PA [address] Jose Armando 110 [place] [address] 12/23/2024 1:00 PM EDT Office Visit [facility] [address] JOSE ARMANDO 160 [place] [address] Aggie Gallardo, LOADING CHECKER-STAIN MAKER [address] Jose Armando 160 [place] [address] 03/06/2025 10:40 AM EDT Office Visit [facility] [address] JOSE ARMANDO [address] [place] [address] Tip Morillo DPM 3006 [facility] 5 [place] [address] documented as of this encounter Goals Goal [...] documented as of this encounter Care Teams Logistics Planner Relationship Specialty Start Date End Date Jer Rizo MD [address] [facility] 110 [place] [address] PCP - General Internal Medicine 01/03/23 Jer Rizo MD [address] [facility] 110 [place] [address] PCP - Sari HERNANDEZ 05/29/24 Aggie Gallardo APRN-STAIN MAKER [address] [facility] 160 [place] [address] Nurse Practitioner Psychiatry 06/13/24 Madyson Figueroa, BETY [address] [facility] 230 [place] [address] Registered Nurse Family Medicine 08/14/24 Braeden Dunham LPC Therapist Behavioral Health 11/25/24 documented as of this encounter
--- OUTSIDE RECORDS SUMMARY | 2024-12-10 10:57 | XMS_ITS | Encounter Summary ---
Author Organization [facility] Address [address] [facility] [address] Care Team Providers Care Motor Tester Name Role Phone Jer Rizo MD Primary Care Provider [phone] Aggie Gallardo MAILROOM MESSENGER-RADIOLOGY RECEPTIONIST Unavailable Jer Rizo MD Unavailable [phone] Madyson Figueroa RN Unavailable [phone] Braeden Dunham LPC Unavailable Unavailable Encounter Details Date Type Department Care Team (Late st Contact Info) Description 11/28/2024 Patient Outreach [facility] POPULATION [facility] [address] [place] [address] Madyson Figueroa, RN [address] [facility] [address] Jose Armando [address] [place] [address] Social History Tobacco Use Types Packs/Day Years [...] and Family Not on file 12/04/2023 Attends Pentecostalism Services Not on file 12/03 Do you belong to any clubs o r organizations such as sabianist groups, unions, fraternal or athletic groups, or [...] Recorded Patient Health Questionnaire-2 Score 0 10/23/2024 [facility] of Occupat ional Health - [...] any time in the past 12 m [facility], were you homeless or living in a senior care (including now)? No 12/04/2023 Education Answer Date [...] on file documented as of this encounter Progress Notes * Madyson Figueroa RN - 11/28/2024 2:54 PM EDT Chart reviewed. Needs appt. Called pt for monthly monitor call. Unable to LM, MB is full <December 02, 2024, 11:53 - Madyson Figueroa RN> Called pt, discussed canceled several appts withP office. States she was unable to get [facility] to take her. Discussed her insurance likely has a transportation plan for her, discussed that she can contact them. States they told her to use [facility] [employer]. Scheduled appt on 12/17/24 at 10:30 am. Discussed she has labs to be done prior to the appt, fasting. Discussed she is able to get labs completed where she would like. [facility] Discussed we previously discussed PAP for several medications. Finally approved through [employer] for Ozempic, will not be able to get this filled at the pharmacy. Discussed any person on her HIPAA form can pick the medication up from the office for her. Discussed CM is only in the office on Wednesdays, will leave the PAP forms for her to sign when she comes to her appt. Discussed to bring proof of income with her on 12/17. Discussed upcoming appt with Dr Morillo 12/05. Encouraged to call when needs arise documented in this encounter Plan of Treatment Upcoming Encounters Date Type Department Care Team (Late st Contact Info) Description 12/17/2024 10:30 AM EDT Office Visit [facility] [address] JOSE ARMANDO [address] [place] [address] Erin Tariq, PA [address] Jose Armando 110 [place] [address] 12/23/2024 1:00 PM EDT Office Visit [facility] [address] JOSE ARMANDO [address] [place] [address] Aggie Gallardo, MAILROOM MESSENGER-RADIOLOGY RECEPTIONIST [address] Jose Armando 160 [place] [address] 03/06/2025 10:40 AM EDT Office Visit [facility] [address] JOSE ARMANDO [address] [place] [address] Tip Morillo, MOI 3006 [facility] 5 [place] [address] documented as of this encounter Goals Goal Patient Goal Type Associated Problems Recent Progress Patient-Stated? Author Help patient manage antidepressant medication Care Plan Patient on antidepressant monitoring plan Francia Bryant MA documented as of this encounter Visit Diagnoses Diagnosis Type 2 diabetes mellitus with other specified complication, with long-term current use of insulin (HCC)- Primary Chronic obstructive pulmonary disease, unspecified COPD type (HCC) documented in this encounter Additional Health Concerns Active Problems Noted Date Diagnosed Date Patient on antidepressant monitoring plan 2023 Assessment Noted Time PHQ-9 Depression Total Score: 15 07/30/ 025 12:54 PM EST documented as of this encounter Care Teams Motor Tester Relationship Specialty Start Date End Date Jer Rizo MD [address] Jose Armando 110 [place] [address] PCP - General Internal Medicine 01/03/23 Jer Rizo MD [address] [facility] 110 [place] [address] PCP - Sari HERNANDEZ 05/29/24 Aggie Gallardo, MAILROOM MESSENGER-RADIOLOGY RECEPTIONIST [address] [facility] 160 [place] [address] Nurse Practitioner Psychiatry 06/13/24 Madyson Figueroa, RN [address] [facility] 230 [place] [address] Registered Nurse Family Medicine 08/14/24 Braeden Dunham LPC Therapist Behavioral Health 11/25/24 documented as of this encounter
--- OUTSIDE RECORDS SUMMARY | 2024-12-10 10:58 | XMS_ITS | Encounter Summary ---
Author Organization [facility] Address [address] [facility] [place] [address] Care Team Providers Care Farmworker Turkey Farm Name Role Phone Jer Rizo MD Primary Care Provider [phone] Aggie Gallardo SCHOOL OCCUPATIONAL THERAPIST-SHELL PRESS OPERATOR Unavailable Jer Rizo MD Unavailable [phone] Madyson Figueroa RN Unavailable [phone] Braeden Dunham LPC Unavailable Unavailable Reason for Visit * Reason Onset Date Comments Med Refill 12/05/2024 Encounter Details Date Type Department Care Team (Late st Contact Info) Description 12/05/2024 Telephone [facility] 112 [facility] 110 [place] [address] Jer Rizo MD 112 [facility] 110 [place] [address] Med Refill Social History Tobacco Use Types Packs/Day Years [...] and Family Not on file 12/04/2023 Attends Taoist Services Not on file 12/03 Do you belong to any clubs o r organizations such as taoism groups, unions, fraternal or athletic groups, or [...] Recorded Patient Health Questionnaire-2 Score 0 10/23/2024 [facility] of Occupat ional Health - Occupational Stress [...] were you homeless or living in a detention (including now)? No 12/04/2023 Education Answer Date [...] encounter Miscellaneous Notes * Telephone Encounter - TEETEE Chicas - 12/05/2024 1:03 PM EDT Sent with pen needles * Telephone Encounter - Meg Díaz - 12/05/2024 12:05 PM EDT Lantus SoloStar 100 UNIT/ML pen as well [facility] to [facility] [place] documented in this encounter Plan of Treatment Upcoming Encounters Date Type Department Care Team (Late st Contact Info) Description 12/17/2024 10:30 AM EDT Office Visit [facility] [address] [facility] 110 [place] [address] Erin Tariq PA [address] Jose Armando 110 [place] [address] 12/23/2024 1:00 PM EDT Office Visit [facility] [address] [facility] 160 [place] [address] Aggie Gallardo, SCHOOL OCCUPATIONAL THERAPIST-SHELL PRESS OPERATOR [address] Jose Armando [address] [place] [address] 03/06/2025 10:40 AM EDT Office Visit [facility] [address] JOSE ARMANDO [address] [place] [address] Tip Morillo DPM 3006 [facility] 5 [place] [address] documented as of this encounter Goals Goal Patient Goal Type Associated Problems Recent Progress Patient-Stated? Author Help patient manage antidepressant medication Care Plan Patient on antidepressant monitoring plan No Francia Gannon MA documented as of this encounter Visit Diagnoses Diagnosis Type 2 diabetes mellitus with other specified complication, without long-term current use of insulin (HCC) documented in this encounter Additional Health Concerns Active Problems Noted Date Diagnosed Date Patient on antidepressant monitoring plan 2023 Assessment Noted Time PHQ-9 Depression Total Score: 15 025 12:54 PM EST documented as of this encounter Care Teams Farmworker Turkey Farm Relationship Specialty Start Date End Date Jer Rizo MD [address] [facility] 110 [place] [address] PCP - General Internal Medicine 01/03/23 Jer Rizo MD [address] [facility] 110 [place] [address] PCP - Sari HERNANDEZ 05/29/24 Aggie Gallardo, SCHOOL OCCUPATIONAL THERAPIST-SHELL PRESS OPERATOR [address] Jose Armando [address] [place] [address] Nurse Practitioner Psychiatry 06/13/24 Madyson Figueroa, BETY [address] [place] [address] Registered Nurse Family Medicine 08/14/24 Braeden Dunham LPC Therapist Behavioral Health 11/25/24 documented as of this encounter
--- OUTSIDE RECORDS SUMMARY | 2024-12-10 10:58 | XMS_ITS | Encounter Summary ---
Author Organization [facility] Address [address] [facility] [place] [address] Care Team Providers Care Pantograph Watcher Name Role Phone Jer Rizo MD Primary Care Provider [phone] Jer Rizo MD Unavailable [phone] Aggie Gallardo PSYCHOLOGICAL ANTHROPOLOGIST-TRUCK CRANE OPERATOR Unavailable Jer Rizo MD Unavailable [phone] Madyson Figueroa RN Unavailable [phone] Braeden Dunham LPC Unavailable Unavailable Encounter Details Date Type Department Care Team (Late st Contact Info) Description 12/26/2023 Abstract [facility] 112 [facility] 110 [place] [address] Jer Rizo MD 112 [facility] 110 [place] [address] Social History Tobacco Use Types [...] and Family Not on file 12/04/2023 Attends Church Services Not on file 12/03 Do you belong to any clubs o r organizations such as christianity groups, unions, fraternal or athletic groups, or [...] Date Recorded Patient Health Questionnaire-2 Score 2 12/06/2023 [facility] of Occupat ional [facility] - Occupational Stress Questionnaire Answer [...] any time in the past 12 m [facility], were you homeless or living in a half-way (including now)? No 12/04/2023 Comments Unknown Sex and Gender Information Value [...] [address] JOSE ARMANDO [address] [place] [address] Erin Tariq, PA [address] Jose Armando 110 [place] [address] 12/23/2024 1:00 PM EDT Office Visit [facility] [address] JOSE ARMANDO [address] [place] [address] Aggie Gallardo, PSYCHOLOGICAL ANTHROPOLOGIST-TRUCK CRANE OPERATOR [address] Jose Armando 160 [place] [address] 03/06/2025 10:40 AM EDT Office Visit [facility] [address] JOSE ARMANDO [address] [place] [address] Tip Morillo DPYared 3006 [facility] 5 [place] [address] documented as of this encounter [...] Assessment Noted Time PHQ-9 Depression Total Score: 2 12/06/19 24 1:00 PM EDT documented as of this encounter Care Teams Pantograph Watcher Relationship Specialty Start Date End Date Jer Rizo MD [address] [facility] 110 [place] [address] PCP - General Internal Medicine 01/03/23 Jer Rizo MD [address] [facility] 110 [place] [address] PCP - Devoted 05/29/23 05/28/24 Jer Rizo MD [address] [facility] 110 [place] [address] PCP - Sari HERNANDEZ 05/29/24 Aggie Gallardo APRN-TRUCK CRANE OPERATOR [address] [facility] 160 [place] [address] Nurse Practitioner Psychiatry 06/13/24 Madyson Figueroa RN [address] Jose Arm[address] [place] [address] Registered Nurse Family Medicine 08/14/24 Braeden Dunham LPC Therapist Behavioral Health 11/25/24 documented as of this encounter
--- OUTSIDE RECORDS SUMMARY | 2024-12-10 10:58 | XMS_ITS | Encounter Summary ---
Author Organization [facility] Address [address] [facility] [place] [address] Care Team Providers Care Senior Reactor Operator Name Role Phone Jer Rizo MD Primary Care Provider [phone] Jer Rizo MD Unavailable [phone] Aggie Gallardo EMPLOYMENT SPECIALIST-TECHNOLOGY SERVICES MANAGER Unavailable Jer Rizo MD Unavailable [phone] Madyson Figueroa RN Unavailable [phone] Braeden Dunham LPC Unavailable Unavailable Encounter Details Date Type Department Care Team (Late st Contact Info) Description 02/13/2024 Abstract [facility] 112 [facility] 110 [place] [id number] Jer Rizo MD 112 [facility] 110 [place] [address] Social History Tobacco Use Types [...] and Family Not on file 12/04/2023 Attends Mormonism Services Not on file 12/03 Do you belong to any clubs o r organizations such as yarsani groups, unions, fraternal [...] Recorded Patient Health Questionnaire-2 Score 2 12/06/2023 [facility] of Occupat ional [facility] - Occupational Stress Questionnaire Answer Date [...] time in the past 12 m [facility], were you homeless or living in a mcfp (including now)? No 12/04/2023 Comments Unknown Sex [...] FM [address] JOSE ARMANDO [address] [place] [address] Erin Tariq, PA [address] Jose Armando 110 [place] [address] 12/23/2024 1:00 PM EDT Office Visit [facility] [address] JOSE ARMANDO [address] [place] [address] Aggie Gallardo, EMPLOYMENT SPECIALIST-TECHNOLOGY SERVICES MANAGER [address] Jose Armando [address] [place] [address] 03/06/2025 10:40 AM EDT Office Visit [facility] POD[facility]AT[facility] [address] JOSE ARMANDO [address] [place] [address] Tip Morillo DPYared [address] [facility] 5 [place] [address] documented as of this encounter [...] documented as of this encounter Care Teams Senior Reactor Operator Relationship Specialty Start Date End Date Jer Rizo MD [address] [facility] 110 [place] [address] PCP - General Internal Medicine 01/03/23 Jer Rizo MD [address] [facility] 110 [place] [address] PCP - Devoted 05/29/23 05/28/24 Jer Rizo MD [address] [facility] 110 [place] [address] PCP - Sari HERNANDEZ 05/29/24 Aggie Gallardo APRN-TECHNOLOGY SERVICES MANAGER [address] [facility] 160 [place] [address] Nurse Practitioner Psychiatry 06/13/24 Madyson Figueroa RN [address] Jose Armando [address] [place] [address] Registered Nurse Family Medicine 08/14/24 Braeden Dunham LPC Therapist Behavioral Health 11/25/24 documented as of this encounter
--- OUTSIDE RECORDS SUMMARY | 2024-12-10 10:58 | XMS_ITS | Encounter Summary ---
Author Organization [facility] Address [address] [facility] [place] [address] Care Team Providers Care Pantry Chef Name Role Phone Jer Rizo MD Primary Care Provider [phone] Jer Rizo MD Unavailable [phone] Aggie Gallardo DELIVERER MERCHANDISE-LICENSED WEIGHER Unavailable Jer Rizo MD Unavailable [phone] Madyson Figueroa RN Unavailable [phone] Braeden Dunham LPC Unavailable Unavailable Encounter Details Date Type Department Care Team (Late st Contact Info) Description 12/12/2023 Abstract [facility] [address] [facility] 110 [place] [address] Jer Rizo MD 112 [facility] 110 [place] [address] Social History Tobacco Use Types [...] and Family Not on file 12/04/2023 Attends Judaism Services Not on file 12/03 Do you belong to any clubs o r organizations such as buddhist groups, unions, fraternal or athletic groups, or [...] Recorded Patient Health Questionnaire-2 Score 2 12/06/2023 [facility] of Occupat ional [facility] - Occupational Stress Questionnaire Answer [...] in the past 12 m [facility], were you homeless or living in a long-term (including now)? No 12/04/2023 Comments Unknown Sex [...] FM [address] JOSE ARMANDO [address] [place] [address] Erin Tariq, PA [address] Jose Armando [address] [place] [address] 12/23/2024 1:00 PM EDT Office Visit [facility] [address] JOSE ARMANDO [address] [place] [address] Aggie Gallardo, DELIVERER MERCHANDISE-LICENSED WEIGHER [address] Jose Armando [address] [place] [address] 03/06/2025 10:40 AM EDT Office Visit [facility]OD[facility] [address] JOSE ARMANDO [address] [place] [address] Tip Morillo DPYared 3006 [facility] 5 [place] [address] documented as of this encounter [...] documented as of this encounter Care Teams Pantry Chef Relationship Specialty Start Date End Date Jer Rizo MD [address] [facility] 110 [place] [address] PCP - General Internal Medicine 01/03/23 Jer Rizo MD [address] [facility] 110 [place] [address] PCP - Devoted 05/29/23 05/28/24 Jer Rizo MD [address] [facility] 110 [place] [address] PCP - Sari HERNANDEZ 05/29/24 Aggie Gallardo APRN-LICENSED WEIGHER [address] [facility] 160 [place] [address] Nurse Practitioner Psychiatry 06/13/24 Madyson Figueroa RN [address] Jose Armando [address] [place] [address] Registered Nurse Family Medicine 08/14/24 Braeden Dunham LPC Therapist Behavioral Health 11/25/24 documented as of this encounter
--- OUTSIDE RECORDS SUMMARY | 2024-12-10 10:58 | XMS_ITS | Clinical Summary ---
Author Organization [facility] Address [address] [place] [address] Phone Care Team Providers Care Imaging Scheduler Name Role Phone Unavailable Primary Care Provider Unavailabl e Encounters Date Type Department Care Team Description 10/16/2024 [address] [facility] [address] [place] [address] Scanning, Generic Provider from Last 3 Months Social History Tobacco Use Types Packs/Day Years Used Date Smoking Tobacco: Never Assessed Comments Unknown Sex and Gender Information Value Date Recorded Sex Assigned at Not on file Legal Sex Female 5:40 AM EST Gender Identity Not on file Sexual Orientation Not on file Plan of Treatment Health Maintenance Due Date Last Done Comments CT Colonography 1961 Colonoscopy 1961 Colorectal Cancer Screening 1961 FIT-DNA (Cologuard) 1961 FIT 1961 HIV Screening 1961 Lipid Panel 1961 Sigmoidoscopy 1961 Welcome to Medicare Visit 1961 MMR Vaccines (1 of 1 - Stand sumi series) 1962 Hepatitis C Screening 1979 Cervical Cancer Screening 1982 HPV/Cotest 1982 Pap Smear 1982 DTaP/Tdap/Td Vaccines (1 - Tdap) 1983 Mammogram 2001 Pneumococcal Vaccine (1 of 1 - PCV) 2011 Zoster Vaccines (1 of 2) 2011 COVID-19 Vaccine ( - 2023-2 5 season) 2024 Influenza Vaccine (#1) 2025 RSV High Risk: (Elderly (60+ ) or Population) (1 - 1-dose 75+ series) 2036 HIB Vaccines Aged Out No longer eligi ble based on patient's age to complete this topic HPV Vaccines (No Doses Required) Completed Hepatitis A Vaccines Aged Out No long er eligible based on patient's age to complete this topic Hepatitis B Vaccines Aged Out No long er eligible based on patient's age to complete this topic IPV Vaccines Aged Out No longer eligi ble based on patient's age to complete this topic Meningococcal Vaccine Aged Out No mike dell eligible based on patient's age to complete this topic Rotavirus Vaccines Aged Out No longer eligible based on patient's age to complete this topic Procedures Procedure Name Priority Date/Time Associated Diagnosis Comments ECHOCARDIOGRAM 10/16/2024 from Last 3 Months Results * Echocardiogram (10/16/2024) Narrative 10/16/2024 Ordered by an unspecified provider. Generic Provider Scanning CV ECHO PROCEDURES Fin al Result from Last 3 Months Insurance [facility] DUAL [facility]AGE
--- OUTSIDE RECORDS SUMMARY | 2024-12-10 10:58 | XMS_ITS | Encounter Summary ---
Author Organization [facility] Address [address] [place] [address] Phone Care Team Providers Care Administrative Volunteer Name Role Phone Unavailable Primary Care Provider Unavailabl e Encounter Details Date Type Department Care Team (Late st Contact Info) Description 10/17/2004 Orders Only [facility] [address] [place] [address] Scanning, Generic Provider Social History Tobacco Use Types Packs/Day Years Used Date Smoking Tobacco: Never Assessed Comments Unknown Sex and Gender Information Value Date Recorded Sex Assigned at Not on file Legal Sex Female 5:40 AM EST Gender Identity Not on file Sexual Orientation Not on file documented as of this encounter Plan of Treatment Not on file documented as of this encounter Procedures Procedure Name Priority Date/Time Associated Diagnosis Comments NUCLEAR STRESS TEST - ONBASE SCAN 10/17/2004 documented in this encounter Results * Nuclear Stress Test - Onbase Scan (10/17/2004) Narrative 10/17/2004 Ordered by an unspecified provider. us Generic Provider Scanning CV STRESS PROCEDURES F inal Result documented in this encounter Visit Diagnoses Not on filedocumented in this encounter
--- OUTSIDE RECORDS SUMMARY | 2024-12-10 10:58 | XMS_ITS | Encounter Summary ---
Author Organization [facility] Address [address] [facility] [place] [address] Care Team Providers Care Grit Removal Operator Name Role Phone Jer Rizo MD Primary Care Provider [phone] Jer Rizo MD Unavailable [phone] Aggie Gallardo TRAVEL INSURANCE AGENT-JUNIOR LINUX SYSTEMS ADMINISTRATOR Unavailable Jer Rizo MD Unavailable [phone] Madyson Figueroa RN Unavailable [phone] Braeden Dunham LPC Unavailable Unavailable Encounter Details Date Type Department Care Team (Late st Contact Info) Description 02/13/2024 Abstract [facility] 112 [facility] 110 [place] [id number] Jer Rizo MD 112 [facility] 110 [place] [address] Social History Tobacco Use Types [...] and Family Not on file 12/04/2023 Attends Gnosticism Services Not on file 12/03 Do you [...] Recorded Patient Health Questionnaire-2 Score 2 12/06/2023 [facility] of Occupat ional [facility] - Occupational Stress Questionnaire Answer Date [...] any time in the past 12 m [facility], were you homeless or living [...] FM [address] JOSE ARMANDO [address] [place] [address] Erin Tariq, PA [address] Jose Armando [address] [place] [address] 12/23/2024 1:00 PM EDT Office Visit [facility] [address] JOSE ARMANDO [address] [place] [address] Aggie Gallardo, TRAVEL INSURANCE AGENT-JUNIOR LINUX SYSTEMS ADMINISTRATOR [address] Jose Armando [address] [place] [address] 03/06/2025 10:40 AM EDT Office Visit [facility] PODIAT[facility] [address] JOSE ARMANDO [address] [place] [address] Tip Morillo DPYared [facility] [facility] 5 [place] [address] documented as of this encounter [...] documented as of this encounter Care Teams Grit Removal Operator Relationship Specialty Start Date End Date Jer Rizo MD [address] [facility] 110 [place] [address] PCP - General Internal Medicine 01/03/23 Jer Rizo MD [address] [facility] 110 [place] [address] PCP - Devoted 05/29/23 05/28/24 Jer Rizo MD [address] [facility] 110 [place] [address] PCP - Sari HERNANDEZ 05/29/24 Aggie Gallardo APRN-JUNIOR LINUX SYSTEMS ADMINISTRATOR [address] [facility] 160 [place] [address] Nurse Practitioner Psychiatry 06/13/24 Madyson Figueroa RN [address] Jose Armando [address] [place] [address] Registered Nurse Family Medicine 08/14/24 Braeden Dunham LPC Therapist Behavioral Health 11/25/24 documented as of this encounter
--- OUTSIDE RECORDS SUMMARY | 2024-12-10 10:58 | XMS_ITS | Encounter Summary ---
Author Organization [facility] Address [address] [facility] [place] [address] Care Team Providers Care Department Helper Name Role Phone Jer Rizo MD Primary Care Provider [phone] Aggie Gallardo QUALITY CONTROLLER-SHEAR HELPER Unavailable Jer Rizo MD Unavailable [phone] Madyson Figueroa RN Unavailable [phone] Braeden Dunham LPC Unavailable Unavailable Reason for Visit * Reason Comments Med Refill Encounter Details Date Type Department Care Team (Late st Contact Info) Description 12/05/2024 Refill [facility] [address] [facility] 110 [place] [address] Erin Tariq, PA [address] [facility] 110 [place], [place] [address] Hypothyroidism, unspecified type ; Hypokalemia Social History Tobacco Use Types Packs/Day Years [...] and Family Not on file 12/04/2023 Attends [employer] Not on file 12/03 Do you belong to any clubs o r organizations such as anglican groups, unions, fraternal or athletic groups, or [...] Recorded Patient Health Questionnaire-2 Score 0 10/23/2024 [facility] of Occupat ional Health - Occupational Stress [...] any time in the past 12 m [facility], were you homeless or living in [...] FM [address] JOSE ARMANDO [address] [place] [address] Erin Tariq PA [address] Jose Armando 110 [place] [address] 12/23/2024 1:00 PM EDT Office Visit [facility] [address] JOSE ARMANDO [address] [place] [address] Aggie Gallardo, QUALITY CONTROLLER-SHEAR HELPER [address] Jose Armando [address] [place] [address] 03/06/2025 10:40 AM EDT Office Visit [facility] PODIATRY [address] JOSE ARMANDO [address] [place] [address] Tip Morillo DPM [address] [facility] Jose Armando 5 [place] [address] documented as of this encounter Goals Goal Patient Goal Type Associated Problems Recent Progress Patient-Stated? Author Help patient manage antidepressant medication Care Plan Patient on antidepressant monitoring plan No Francia Gannon MA documented as of this encounter Visit Diagnoses Diagnosis Hypothyroidism, unspecified type Hypokalemia Hypopotassemia documented in this encounter Additional Health Concerns Active Problems Noted Date Diagnosed Date Patient on antidepressant monitoring plan 2023 Assessment Noted Time PHQ-9 Depression Total Score: 15 025 12:54 PM EST documented as of this encounter Care Teams Department Helper Relationship Specialty Start Date End Date Jer Rizo MD [address] Jose Armando [address] [place] [address] PCP - General Internal Medicine 01/03/23 Jer Rizo MD [address] Jose Armando [address] [place] [address] PCP - Sari HERNANDEZ 05/29/24 Aggie Gallardo, QUALITY CONTROLLER-SHEAR HELPER [address] Jose Armando [address] [place] [address] Nurse Practitioner Psychiatry 06/13/24 Madyson Figueroa, BETY [address] [facility] [address] Jose Armando [address] [place] [address] Registered Nurse Family Medicine 08/14/24 Braeden Dunham LPC Therapist Behavioral Health 11/25/24 documented as of this encounter
--- OUTSIDE RECORDS SUMMARY | 2024-12-10 10:58 | XMS_ITS | Encounter Summary ---
Author Organization [facility] Address [address] [place] [address] Phone Care Team Providers Care Furnace Attendant Name Role Phone Unavailable Primary Care Provider Unavailabl e Encounter Details Date Type Department Care Team (Late st Contact Info) Description 10/16/[address] [facility] [address] [place] [address] Scanning, Generic Provider Social History [...] Priority Date/Time Associated Diagnosis Comments ECHOCARDIOGRAM 10/16/2024 documented in this encounter Results * Echocardiogram (10/16/2024) Narrative 10/16/2024 Ordered by an unspecified provider. us Generic Provider Scanning CV ECHO PROCEDURES Fin al Result documented in this encounter Visit Diagnoses Not on filedocumented in this encounter
--- OUTSIDE RECORDS SUMMARY | 2024-12-10 10:58 | XMS_ITS | Encounter Summary ---
Author Organization [facility] Address [address] [facility] [place] [address] Care Team Providers Care Lining Feller Name Role Phone Jer Rizo MD Primary Care Provider [phone] Jer Rizo MD Unavailable [phone] Aggie Gallardo DIRECTOR AUTOMOTIVE-CISCO CERTIFIED NETWORK ASSOCIATE Unavailable Jer Rizo MD Unavailable [phone] Madyson Figueroa RN Unavailable [phone] Braeden Dunham LPC Unavailable Unavailable Encounter Details Date Type Department Care Team (Late st Contact Info) Description 12/25/2023 Abstract [facility] [address] [facility] 110 [place] [address] Jer Rizo MD 112 [facility] 110 [place] [address] Social History Tobacco Use Types [...] and Family Not on file 12/04/2023 Attends Christian Services Not on file 12/03 Do you belong to any clubs o r organizations such as mu-ism groups, unions, fraternal or athletic groups, or [...] Recorded Patient Health Questionnaire-2 Score 2 12/06/2023 [facility] of Occupat ional [facility] - Occupational Stress Questionnaire Answer Date Recorded [...] any time in the past 12 m [facility], were you homeless or living in a assisted (including now)? No 12/04/2023 Comments Unknown Sex [...] FM [address] JOSE ARMANDO [address] [place] [address] Erin Tariq, PA [address] Jose Armando [address] [place] [address] 12/23/2024 1:00 PM EDT Office Visit [facility] [address] JOSE ARMANDO [address] [place] [address] Aggie Gallardo, DIRECTOR AUTOMOTIVE-CISCO CERTIFIED NETWORK ASSOCIATE [address] Jose Armando [address] [place] [address] 03/06/2025 10:40 AM EDT Office Visit [facility] POD[facility] [address] JOSE ARMANDO [address] [place] [address] Tip Morillo DPYared 3006 [facility] 5 [place] [address] documented as of this encounter [...] documented as of this encounter Care Teams Lining Feller Relationship Specialty Start Date End Date Jer Rizo MD [address] [facility] 110 [place] [address] PCP - General Internal Medicine 01/03/23 Jer Rizo MD [address] [facility] 110 [place] [address] PCP - Devoted 05/29/23 05/28/24 Jer Rizo MD [address] [facility] 110 [place] [address] PCP - Sari HERNANDEZ 05/29/24 Aggie Gallardo APRN-CISCO CERTIFIED NETWORK ASSOCIATE [address] [facility] 160 [place] [address] Nurse Practitioner Psychiatry 06/13/24 Madyson Figueroa RN [address] Jose Armando [address] [place] [address] Registered Nurse Family Medicine 08/14/24 Braeden Dunham LPC Therapist Behavioral Health 11/25/24 documented as of this encounter
--- OUTSIDE RECORDS SUMMARY | 2024-12-10 10:58 | XMS_ITS | Clinical Summary ---
Author Organization [facility] Address [address] [facility] [place] [address] Care Team Providers Care Ship Scraper Name Role Phone Jer Rizo MD Primary Care Provider [phone] Aggie Gallardo ELEMENTARY SPANISH TEACHER-INTERNAL GRINDING MACHINE OPERATOR Unavailable Jer Rizo MD Unavailable [phone] Madyson Figueroa RN Unavailable [phone] Braeden Dunham LPC Unavailable Unavailable Allergies Active Allergy Reactions Criticality Noted Date Comments Zolpidem Other 03/14/2024 Terrible nightmares Cefdinir Hives 01/02/2023 Ibandronate Hives 01/02/2023 Nabumetone 01/02/2023 Other Reaction(s): PT DOESN'T REMEMBER Penicillin G 01/02/2023 Other Reaction(s): fever, hives Sulfanilamide 01/02/2023 Other Reaction(s): Fever,hives Sertraline 03/14/2024 Unusual behaviors Medications OXYGEN-HELIUM IN 3 LPM through [facility] 022 Active albuterol (2.5 MG/3ML) 0.083% nebulizer solutionIndicati ons:Severe persistent asthma without complication (HCC) Take 3 mL (2.5 mg) by nebulization every 8 (eight) hours. 75 mL 5 023 Active Blood Glucose Monitoring Suppl deviceIndication s:Type 2 diabetes mellitus with other specified complication, without long-term current use of insulin (HCC) USE DIRECTED 100 strip 2 023 Active triamcinolone (Kenalog) 0.5 % creamIndications :Venous insufficiency (chronic) (peripheral) APPLY 1 APPLICATION EXTERNALLY ONCE A DAY NEEDED 7 DAY(S) 30 g 2 023 Active dapagliflozin (Farxiga) 10 MGIndications:Ty pe 2 diabetes mellitus with diabetic autonomic (poly)neuropathy (HCC) TAKE 1 TABLET BY MOUTH EVERY DAY 100 tablet 3 024 Active albuterol HFA (Ventolin HFA) 90 mcg/act inhalerIndicatio ns:Severe persistent asthma without complication (HCC) Inhale 2 puffs every 4 (four) hours if needed for wheezing or shortness of breath 18 g 5 024 Active traMADol (Ultram) 50 MG tablet Take 1 tablet by mouth as needed in the morning and 1 tablet as needed at noon and 1 tablet as needed in the evening for moderate pain. 024 Active Bacillus Coagulans-Inulin (Probiotic Formula) 1-250 BILLION-MG capsuleIndicatio ns:Chronic diarrhea Take 1 capsule by mouth at noon and 1 capsule in the evening. 60 capsule 2 024 Active baclofen (Lioresal) 10 MG tabletIndication s:Cervical spondylosis TAKE 1 TABLET BY MOUTH THREE TIMES A DAY NEEDED 270 tablet 1 025 Active gabapentin (Neurontin) 600 MG tabletIndication s:Type 2 diabetes mellitus with autonomic neuropathy, unspecified whether care home insulin use (HCC) TAKE 1 TABLET TWICE A DAY AND 2 AT BEDTIME 400 tablet 1 025 Active hydrOXYzine pamoate (Vistaril) 25 MG capsuleIndicatio ns:JENN (generalized anxiety disorder) Take 1 capsule (25 mg) by mouth every 8 (eight) hours if needed for anxiety 30 capsule 2 025 Active fluticasone (Flonase) 50 MCG/ACT nasal sprayIndications :Chronic sinusitis, unspecified location USE 1 SPRAY IN EACH NOSTRIL ONCE A DAY *SHAKE GENTLY/PRIME PUMP/CLEAN TIP AND REPLACE CAP* 48 mL 1 025 Active [facility] Genuine Aspirin 325 MG tablet Take 325 mg by mouth Daily 025 Active Glutose 15 40 % gel oral gel Take 15 g by mouth if needed for low blood sugar Active potassium chloride CR (Klor-Con) 10 MEQ ER tablet Take 10 mEq by mouth Daily Active Budeson-Glycopyr rol-Formoterol (Breztri Aerosphere) 160-9-4.8 MCG/ACT aerosolIndicatio ns:Chronic obstructive pulmonary disease, unspecified COPD type ([facility]) Inhale 2 puffs in the morning and 2 puffs before bedtime. Rinse mouth after each use. 10.7 g 5 Active Semaglutide,0.25 or 0.5MG/DOS, (Ozempic, 0.25 or 0.5 MG/DOSE,) 2 MG/3ML solution pen-injectorIndi cations:Type 2 diabetes mellitus with other specified complication, without long-term current use of insulin ([facility]),Morbid (severe) obesity due to excess calories ([facility]) Inject 0.5 mg under the skin 1 (one) time per week Active Multiple Vitamin (MULTIVITAMIN ADULT PO) Take 1 tablet by mouth Daily Active traZODone (Desyrel) 100 MG tabletIndication s:Bipolar affective disorder, currently depressed, moderate ([facility]) Take 1.5 tablets (150 mg) by mouth at bedtime Active Continuous Glucose Sensor (FreeStyle Gomez 3 Plus Sensor) miscIndications: Type 2 diabetes mellitus with other specified complication, with long-term current use of insulin ([facility]) 1 each Every 15 Days 6 each 3 025 2025 Active Continuous Glucose Photonics Engineering Technologist (FreeStyle Gomez 3 [place]) deviceIndication s:Type 2 diabetes mellitus with other specified complication, with long-term current use of insulin ([facility]) 1 Device continuously 1 each 025 Active furosemide (Lasix) 40 MG tabletIndication s:Localized edema TAKE 1 TABLET BY MOUTH TWICE A DAY 180 tablet 4 025 Active metoprolol tartrate (Lopressor) 25 MG tabletIndication s:Essential hypertension, benign TAKE 1 TABLET BY MOUTH IN THE MORNING AND BEFORE BEDTIME 180 tablet 4 025 Active escitalopram (Lexapro) 20 MG tabletIndication s:Bipolar affective disorder, currently depressed, moderate ([facility]) Take 1 tablet (20 mg) by mouth Daily 30 tablet 1 025 2025 Active Cariprazine HCl (Vraylar) 3 MG capsuleIndicatio ns:Mixed bipolar affective disorder, moderate (HCC) Take 1 capsule by mouth at bedtime 90 capsule 025 2024 Active lamoTRIgine (LaMICtal) 200 MG tabletIndication s:Bipolar affective disorder, currently depressed, moderate (HCC) Take 1 tablet (200 mg) by mouth at bedtime 90 tablet 025 2024 Active levothyroxine (Synthroid, Levoxyl) 112 MCG tabletIndication s:Hypothyroidism , unspecified type TAKE 1 TABLET (112 MCG) BY MOUTH IN THE MORNING 100 tablet 3 Active rosuvastatin (Crestor) 5 MG tabletIndication s:Hypokalemia TAKE 1 TABLET BY MOUTH EVERY DAY 100 tablet 3 Active insulin glargine (Lantus SoloStar) 100 UNIT/ML penIndications:T ype 2 diabetes mellitus with other specified complication, without long-term current use of insulin ([facility]) Inject 20 Units under the skin in the morning. 9 mL 3 Active Insulin Pen Needle (pen needle 10/11 ) 31G X 8 mm miscIndications: Type 2 diabetes mellitus with other specified complication, without long-term current use of insulin ([facility]) Inject 1 each under the skin Daily Use as instructed with Lantus SoloStar 100 each 3 025 Active Lancets 30G miscIndications: Type 2 diabetes mellitus with other specified complication, without long-term current use of insulin ([facility]) 1 each Daily Check blood glucose daily. Active Lancets 30G miscIndications: Type 2 diabetes mellitus with other specified complication, without long-term current use of insulin ([facility]) 1 each in the morning. Check blood glucose daily.. 100 each 3 023 2024 Discontinued(R eorder) furosemide (Lasix) 40 MG tabletIndication s:Localized edema TAKE 1 TABLET BY MOUTH TWICE A DAY 180 tablet 4 09/11/2 024 2024 Discontinued metoprolol tartrate (Lopressor) 25 MG tabletIndication s:Essential hypertension, benign TAKE 1 TABLET (25 MG) BY MOUTH IN THE MORNING AND BEFORE BEDTIME 180 tablet 4 024 2024 Discontinued levothyroxine (Synthroid, Levoxyl) 112 MCG tabletIndication s:Hypothyroidism , unspecified type Take 1 tablet (112 mcg) by mouth in the morning. 100 tablet 3 024 2024 Discontinued rosuvastatin (Crestor) 5 MG tabletIndication s:Hypokalemia TAKE 1 TABLET BY MOUTH EVERY DAY 90 tablet 1 025 2024 Discontinued lamoTRIgine (LaMICtal) 200 MG tabletIndication s:Bipolar affective disorder, currently depressed, moderate (HCC) Take 1 tablet (200 mg) by mouth at bedtime 90 tablet 1 025 2024 Discontinued(R eorder) Cariprazine HCl (Vraylar) 3 MG capsuleIndicatio ns:Mixed bipolar affective disorder, moderate (HCC) Take 1 capsule by mouth at bedtime 90 capsule 025 2024 Discontinued(R eorder) escitalopram (Lexapro) 10 MG tabletIndication s:JENN (generalized anxiety disorder) Take 1 tablet (10 mg) by mouth Daily 30 tablet 1 025 2024 Discontinued Lantus SoloStar 100 UNIT/ML pen Inject 20 Units under the skin in the morning. 025 2024 Discontinued(R eorder) Lancets 30G miscIndications: Type 2 diabetes mellitus with other specified complication, without long-term current use of insulin (HCC) 1 each Daily Check blood glucose daily. 100 each 3 025 2024 Discontinued(E ntered in error) Insulin Pen Needle (pen needle 10/11 ) 31G X 8 mm misc Inject 1 each under the skin Daily Use as instructed 2024 Discontinued(R eorder) Active Problems Problem Noted Date Diagnosed Date Chronic diastolic heart failure 11/14/2024 Pulmonary hypertension 11/14/2024 Unstable angina 11/14/2024 Pseudophakia 01/05/2024 Morbid (severe) obesity due to excess calories 0 12/06/2023 Body mass index (BMI) 50.0-59.9, adult 4 Chronic respiratory failure with hypoxia 024 Abdominal aortic ectasia 12/06/2023 Endometriosis 09/05/2023 Hypokalemia 01/04/[address] scan 01/02/2023 Adenomatous polyp of colon 01/02/2023 Allergic rhinitis, unspecified 01/02/2023 Atypical migraine 01/02/2023 Autonomic neuropathy due to type 2 diabetes torsten itus 01/02/2023 Bilateral primary osteoarthritis of knee 023 Bipolar affective disorder, currently depressed, moderate 01/02/2023 Chondromalacia of patella, left 01/02/2023 Chronic diarrhea 01/02/2023 Chronic obstructive pulmonary disease 01/02/2023 Fibromyalgia 01/02/2023 Chronic sinusitis 01/02/2023 Constipation 01/02/2023 Dissection of aorta 01/02/2023 Dyspepsia 01/02/2023 Extreme obesity with alveolar hypoventilation Atherosclerotic 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[place] coronary artery without angina pectoris 01/02/2023 Mixed bipolar affective disorder, moderate 01/02 Myalgia 01/02/2023 Nonalcoholic steatohepatitis (IVAN) 01/02/2023 Obstructive sleep apnea syndrome 01/02/2023 Oxygen dependent 01/02/2023 Persistent hoarseness 01/02/2023 Primary hypertension 01/02/2023 Refractory obstruction of nasal airway Rheumatoid arthritis 01/02/2023 Severe persistent asthma 01/02/2023 Cervical spondylosis 01/02/2023 Stasis dermatitis of both legs 01/02/2023 Type 2 diabetes mellitus with other specified co mplication 01/02/2023 Hypothyroidism 11/23/2022 Lumbar pain 11/23/2022 Lumbar radiculopathy 11/23/2022 JENN (generalized anxiety disorder) 06/08/2022 Diaphragmatic hernia without obstruction or gang kelly 06/08/2022 History of falling 06/08/2022 Limitation of activities due to disability 06/08 Muscle weakness (generalized) 06/08/2022 Spinal stenosis, site unspecified 06/08/2022 Abnormality of gait due to impairment of balance 06/08/2022 Acute severe exacerbation of severe persistent a sthma 06/08/2022 Depressive disorder 06/08/2022 Disability affecting daily living 06/08/2022 Fall 06/08/2022 Hip pain 06/08/2022 Nontraumatic rotator cuff tear 06/08/2022 Osteoporosis 06/08/2022 Shoulder joint pain 06/08/2022 History of psychiatric disorder 12/03/2019 Hyperglycemia due to type 2 diabetes mellitus Resolved Problems Problem Noted Date Diagnosed Date Resolved Date Age-related nuclear cataract of both eyes 11/28/2023 01/05/2024 Acute on chronic respiratory failure 01/02/2023 03/22/2023 Altered mental status 01/02/20232023 Bipolar disorder 01/02/2023 03/22/2023 Arthritis of right knee 01/02/202302/27 Moderate persistent asthma w ithout complication 01/02/2023 03/22/2023 Encounters Date Type Department Care Team Description 12/05/2024 11:10 AM EDT Office Visit [facility] [address] [facility] [address] [place] [address] Tip Morillo, DPYared Xerosis cutis (Primary Dx); Diabetes 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, unspecified whether care home insulin use (HCC); Pain due to onychomycosis of toenails of both feet; Venous insufficiency 12/05/2024 Telephone [facility] [address] [facility] [address] [place] [address] Jer Rizo MD Med Refill 12/05/2024 Travel 12/05/2024 Refill [facility] [address] [facility] [address] [place] [address] Erin Tariq PA Hypothyroidism, unspecified type ; Hypokalemia 12/02/2024 Abstract [facility] [address] [facility] [address] [place] [address] Jer Rizo MD 11/28/2024 Patient Outreach [facility] [address] [place] [address] Madyson Figueroa RN 11/25/2024 Patient Outreach [facility] [address] [place] [address] Stephenie Chacko, BETY 11/20/2024 Patient Outreach [facility] [address] [place] [address] Madyson Figueroa RN 11/18/2024 9:30 AM EDT Office Visit [facility] [address] [email or web address] [address] [place] [address] Aggie Gallardo, ELEMENTARY SPANISH TEACHER-INTERNAL GRINDING MACHINE OPERATOR Mixed bipolar affective disorder, moderate (HCC); Bipolar affective disorder, currently depressed, moderate (HCC) 11/18/2024 Bamboo flowsheet [facility] [address] [facility] [address] [place] [address] Aggie Gallardo, ELEMENTARY SPANISH TEACHER-INTERNAL GRINDING MACHINE OPERATOR 11/18/2024 Travel 11/15/2024 Abstract [facility] [address] [facility] [address] [place] [address] Jer Rizo MD 11/15/2024 Abstract [facility] [address] [facility] [address] [place] [address] Jer Rizo MD 11/15/2024 Abstract [facility] [address] [facility] [address] [place] [address] Jer Rizo MD 11/15/2024 Abstract [facility] [address] [facility] [address] [place] [address] Jer Rizo MD 11/15/2024 Telephone [facility] [address] [facility] [address] [place] [address] Erin Tariq PA 11/14/2024 Refill [facility] [address] [facility] [address] [place] [address] Erin Tariq, PA Essential hypertension, benign 11/14/2024 Refill [facility] [address] [facility] [address] [place] [address] Jer Rizo MD Localized edema 11/13/2024 Abstract [facility] [address] [facility] [address] [place] [address] Jer Rizo MD 11/09/2024 Refill [facility] [address] [place] [address] [place] [address] Aggie Gallardo, ELEMENTARY SPANISH TEACHER-INTERNAL GRINDING MACHINE OPERATOR JENN (generalized anxiety disorder) 11/08/2024 Abstract [facility] [address] [facility] [address] [place] [address] Jer Rizo MD 11/07/2024 Abstract [facility] [address] [facility] [address] [place] [address] Jer Rizo MD 11/06/2024 Abstract [facility] [address] [facility] [address] [place] [address] Jer Rzio MD 11/04/2024 Abstract [facility] [address] [facility] [[email or web address]] [address] [place] [address] Jer Rizo MD 10/31/2024 Abstract [facility] [address] [place] [address] [place] [address] Jer Rizo MD 10/31/2024 Abstract [facility] [address] [facility] [[email or web address] [address] [place] [address] Jer Rizo MD 10/30/2024 Patient Outreach [facility] [address] [place] [address] Madyson Figueroa RN 10/28/2024 Abstract [facility] [address] [facility] [address] [place] [address] Jer Rizo MD 10/28/2024 Abstract [facility] [address] [facility] [[email or web address]] [address] [place] [address] Jer Rizo MD 10/28/2024 Abstract [facility] [address] [place] [address] [place] [address] Jer Rizo MD 10/23/2024 2:00 PM EDT Office Visit [facility] [address] [place] [address] [place] [address] Erin Tariq, PA Chest pain, unspecified type (Primary Dx); Chronic obstructive pulmonary disease, unspecified COPD type (HCC); Type 2 diabetes mellitus with other specified complication, without long-term current use of insulin (HCC); Morbid (severe) obesity due to excess calories ([facility]); Bipolar affective disorder, currently depressed, moderate (HCC); Oxygen dependent; Bilateral primary osteoarthritis of knee; Allergic rhinitis due to pollen, unspecified seasonality; Rheumatoid arthritis, unspecified (HCC) 10/23/2024 Abstract [facility] [address] [facility] [[email or web address]] [address] [place] [address] Jer Rizo MD 10/23/2024 Travel 10/23/2024 Telephone [facility] [address] [facility] [[email or web address] [address] [place] [address] Jer Rizo MD 10/19/2024 Refill [facility] [address] [facility] [[email or web address] [address] [place] [address] Erin Tariq PA Chronic sinusitis, unspecified location 10/16/2024 Abstract [facility] [address] [email or web address] [address] [place] [address] Jer Rizo MD 10/16/2024 Abstract [facility] [address] [facility] [[email or web address] [address] [place] [address] Jer Rizo MD 10/16/2024 Abstract [facility] [address] [email or web address] [address] [place] [address] Jer Rizo MD 10/11/2024 Patient Outreach [facility] [address] [place] [address] Madyson Figueroa RN 10/04/2024 Refill [facility] [address] [facility] [[email or web address]] [address] [place] [address] Aggie Gallardo, ELEMENTARY SPANISH TEACHER-INTERNAL GRINDING MACHINE OPERATOR JENN (generalized anxiety disorder) 10/02/2024 Abstract [facility] [address] [facility] [[email or web address] [address] [place] [address] Jer Rizo MD 09/30/2024 11:30 AM EDT Social Work [facility] [address] [facility] [address] [place] [address] Braeden Dunham LPC JENN (generalized anxiety disorder) ; Bipolar affective disorder, currently depressed, moderate (HCC); Mixed bipolar affective disorder, moderate (HCC) 09/30/2024 Bamboo flowsheet [facility] [address] [facility] [address] [place] [address] Braeden Dunham LPC 09/30/2024 Travel 09/12/2024 11:30 AM EDT Office Visit [facility] [address] [place] [address] [place] [address] Aggie Gallardo, ELEMENTARY SPANISH TEACHER-INTERNAL GRINDING MACHINE OPERATOR JENN (generalized anxiety disorder) ; Bipolar affective disorder, currently depressed, moderate (HCC); Mixed bipolar affective disorder, moderate (HCC) 09/12/2024 Telephone [facility] [address] [facility] [address] [place] [address] Aggie Gallardo, ELEMENTARY SPANISH TEACHER-INTERNAL GRINDING MACHINE OPERATOR Zoloft Allergy 09/12/2024 Bamboo flowsheet [facility] [address] [place] [address] [place] [address] Aggie Gallardo, ELEMENTARY SPANISH TEACHER-INTERNAL GRINDING MACHINE OPERATOR 09/12/2024 Travel 09/11/2024 Patient Outreach [facility] [address] [place] [address] Madyson Figueroa RN 09/10/2024 Refill [facility] [address] [place] [address] [place] [address] Mary Rhodes, CASUALTY INSURANCE CLAIM ADJUSTER Type 2 diabetes mellitus with other specified complication, without long-term current use of insulin ([facility]); Morbid (severe) obesity due to excess calories ([facility]) from Last 3 Months Immunizations Immunization Administration Dates Next Due Influenza, Injectable, MDCK, preservative free 03/12/2019 Influenza, injectable, MDCK, preservative free, quadrivalent 04/13/2023,03/31/2022,03/10/2020,04/06 Influenza, injectable, quadrivalent 03/24/2021 Influenza, injectable, quadr ivalent, preservative free 04/19/2016 Influenza, seasonal, injecta ble, preservative free 02/21/2024 Influenza, seasonal, intrade rmal, preservative free 02/21/2017,02/04/2015,03/25/2008 PPD Test 06/15/2022,06/08/2022 Pneumococcal Conjugate PCV 20 06/13/2022 Pneumococcal Polysaccharide PPSV23 02/21/2017 RSV, recombinant, protein tillman bunit RSVpreF, adjuvant reconstitu, 120mcg/0.5mL, PF (Arexvy) 04/13/2023 Tdap 12/06/2023 Family History Medical History Relation Name Comments Cancer Father Depression Father Heart disease Father Hyperlipidemia Father Irritable bowel syndrome Father Mental illness Father Cancer Mother Crohn's disease Mother Hypertension Mother Lung cancer Sister Relation Name Status Comments Father Mother Sister Social History Tobacco Use Types Packs/Day Years [...] and Family Not on file 12/04/2023 Attends [employer] Services Not on file 12/03 Do you belong to any clubs o r organizations such as episcopal groups, unions, fraternal or athletic groups, or [...] Recorded Patient Health Questionnaire-2 Score 0 10/23/2024 [facility] - Occupational Stress Questionnaire Answer [...] any time in the past 12 [facility], were you homeless or living in a fpc (including now)? No 12/04/2023 Education Answer Date [...] PM EDT Sexual Orientation Not on file Last Filed Vital Signs Vital Sign Reading Time Taken Comments Blood Pressure 118/64 11/18/2024 9:30 AM EDT Pulse 74 11/18/2024 9:30 AM EDT Temperature 37.4 C (99.3 F) 02/21/2024 1:02 PM EDT Respiratory Rate 18 12/05/2024 11:25 AM EDT Oxygen Saturation 94% 10/23/2024 2:08 PM EDT Inhaled Oxygen Concentration - - Weight 120 kg (264 lb) 12/05/2024 11:25 AM EDT Height 149.9 cm (4' 11 ) 12/05/2024 11:25 AM EDT Body Mass Index 53.32 12/05/2024 11:25 AM EDT Plan of Treatment Upcoming Encounters Date Type Department Care Team (Late st Contact Info) Description 12/17/2024 10:30 AM EDT Office Visit [facility] [address] [facility] [[email or web address] [address] [place] [address] Erin Tariq PA [address] [facility] [address] [place] [address] 12/23/2024 1:00 PM EDT Office Visit [facility] [address] [facility] [[email or web address] [address] [place] [address] Daily-Aggie Seymour, ELEMENTARY SPANISH TEACHER-INTERNAL GRINDING MACHINE OPERATOR [address] [facility] [address] [place] [address] 03/06/2025 10:40 AM EDT Office Visit [facility] [address] [facility] [[email or web address] [address] [place] [address] Tip Morillo DPM [address] [facility] [address] [place] [address] Health Maintenance Due Date Last Done Comments CT Colonography 1961 FIT-DNA 1961 FIT 1961 FOBT 1961 Sigmoidoscopy 1961 Pap Smear 1982 Cervical Cancer Screening 1991 HPV/Cotest 1991 Diabetes: Urine Protein Screening 03/23/2024 03/23/2023, 03/24/2021, 11/20/2019, Additional history exists Mammogram 05/17/2024 05/17/2023, 08/27, 09/17/2018, Additional history exists Diabetes: Hemoglobin A1C 11/14/2024 025, 03/27/2024, 12/06/2023, Additional history exists Medicare Annual Wellness (AWV) 12/05/2024 0 12/06/2023, 03/22/2023, 05/14/2021, Additional history exists Influenza Vaccine (#1) 2025 , 04/13/2023, 03/31/2022, Additional history exists Colonoscopy 11/15/2025 11/16/2015 Colorectal Cancer Screening 11/15/2025 Diabetes: Retinopathy Screening 11/27/2025 11/28/2023, 11/28/2023, 11/28/2023, Additional history exists Goals Goal Patient Goal Type Associated Problems Recent Progress Patient-Stated? Author Help patient manage antidepressant medication Care Plan Patient on antidepressant monitoring plan Francia Bryant MA Procedures Procedure Name Priority Date/Time Associated Diagnosis Comments POCT GLYCOSYLATED HEMOGLOBIN (HGB A1C) Routine 08/14/2024 10:27 AM EDT Type 2 diabetes mellitus with other specified complication, without long-term current use of insulin (HCC) BI MAMMOGRAM SCREENING TOMOSYNTHESIS BILATERAL Routine 05/17/2023 2:51 PM EST Encounter for screening mammogram for malignant neoplasm of breast MICROALBUMIN / CREATININE URINE RATIO Routine 03/23/2023 1:40 PM EDT Type 2 diabetes mellitus with other specified complication, without long-term current use of insulin (HCC) DIABETIC RETINOPATHY SCREENING - OU - BOTH EYES Routine 01/26/2023 COLONOSCOPY DIAGNOSTIC Routine 11/16/2015 from Last 3 Months or Most Recently Relevant to Health Maintenance Results * POCT glycosylated hemoglobin (Hb A1C) docked device (08/14/2024 10:27 AM EDT) Hemoglobin A1C 8.9 Blood Venous blood specimen / Unknown 08/14/2024 10:27 AM EDT Mary Rhodes NP POINT OF CARE TEST ENTER/AJVAD T ORDERABLES Final Result * Bilateral screening mammogram with tomosynthesis (05/17/2023 2:51 PM EST) Anatomical Region Laterality Modality Breast Bilateral Mammography 05/30/2023 9:56 AM EST Impressions 05/30/2023 12:47 PM EST BIRADS 2 - Benign Follow-up: Routine Screening Mamm . Board Certified Radiologists. Accredited by the ACR and FDA. MAMMOGRAPHY IS VERY IMPORTANT TO YOUR HEALTH. THE [place] [employer]IET[employer] GUIDELINES RECOMMEND THAT WOMEN 40 [...] BY: ELECTRONICALLY SIGNED BY: Mayank Zamora MD Narrative 05/30/2023 12:47 PM EST EXAMINATION: BI MAMMOGRAM SCREENING TOMOSYNTHESIS BILATERAL CLINICAL HISTORY: screening COMPARISON: September 17, 2018. RESULT: Digital mammography and 3D tomosynthesis of bilateral breasts was performed. The breasts are almost entirely fatty. Overall appearance is stable. Typically benign calcifications. There is no suspicious mass, asymmetry, architectural distortion, or calcification. Left central breast biopsy material. Procedure Note Mayank Zamora MD - 05/30/2023 EXAMINATION: BI MAMMOGRAM SCREENING TOMOSYNTHESIS BILATERAL CLINICAL HISTORY: screening COMPARISON: September 17, 2018. RESULT: Digital mammography and 3D tomosynthesis of bilateral breasts wasperformed. The breasts are almost entirely fatty. Overall appearance is stable. Typically benign calcifications. There is no suspicious mass, asymmetry, architectural distortion, orcalcification. Left central breast biopsy material. IMPRESSION: BIRADS 2 - Benign Follow-up: Routine Screening Mamm . Board Certified Radiologists. Accredited by the ACR and FDA. MAMMOGRAPHY IS VERY IMPORTANT TO YOUR HEALTH. THE [place] CANCER SOCIETYGUIDELINES RECOMMEND THAT WOMEN 40 YEARS OF AGE AND OLDER SHOULD HAVE AMAMMOGRAM EVERY YEAR. A REMINDER LETTER WILL BE SENT AT THE APPROPRIATE TIME. THIS FACILITYUTILIZES A REMINDER SYSTEM TO ENSURE ALL PATIENTS RECEIVE REMINDERNOTIFICATIONS AT THE APPROPRIATE TIME BASED ON THE RECOMMENDATIONS OF THISEXAM. THIS INCLUDES REMINDERS FOR ROUTINE SCREENING MAMMOGRAMS, DIAGNOSTICMAMMOGRAMS IN WHICH THE PATIENT IS ASKED TO RETURN FOR ADDITIONAL VIEWS,OR OTHER BREAST IMAGING INTERVENTIONS WHEN APPROPRIATE. THE PATIENT WILLBE PLACED IN THE APPROPRIATE REMINDER SYSTEM INCLUDING A REMINDER AT THEAPPROPRIATE TIME FOR ANY PENDING ADDITIONAL VIEWS. TRANSCRIBED BY: ELECTRONICALLY SIGNED BY: Mayank Zamora MD Erin KINGSLEY IM BI PROCEDURES Final Result * Microalbumin / creatinine, urine ratio (03/23/2023 1:40 PM EDT) CREATININE, RANDOM URINE 26 20 - 275 mg/dL [facility] ALBUMIN, URINE <0.2 See Note: mg/dL [facility] Comment: Reference Range: Reference Range Not established ALBUMIN/CREATININE RATIO, RANDOM URINE NOTE <30 mcg/mg creat [facility] Comment: NOTE: The urine albumin value is less than 0.2 mg/dL therefore we are unable to calculate excretion and/or creatinine ratio. The ADA defines abnormalities in albumin excretion as follows: Albuminuria Category Result (mcg/mg creatinine) Normal to Mildly increased <30 Moderately increased 30-299 Severely increased > OR = 300 The ADA recommends that at least two of three specimens collected within a 3-6 month period be abnormal before considering a patient to be within a diagnostic category. Urine Urine specimen obtained by clean catch procedure / Unknown 03/23/2023 1:40 PM EDT 03/23/2023 1:40 PM EDT Narrative Resulting Agency Comment Performing Organization Information Site ID: [id number] Name: [facility] Address: [address] [place] [address], [address] [place] [address] Director: Jw Camarena MD Erin [facility] LAB URINE ORDERABLES Final Res ult [facility] * Diabetic Retinopathy Screening - OU - Both Eyes (01/26/2023) RESULTS ndr Anatomical Region Laterality Modality Head Other 01/26/2023 Jer Rizo MD OPHTH PHOTOGRAPHY Final Result * COLONOSCOPY DIAGNOSTIC (11/16/2015) Anatomical Region Laterality Modality Radiographic Josefa ging 11/16/2015 Narrative 11/16/2015 7:37 AM EDT polyp Jer Rizo MD IMG XR PROCEDURES Final Result from Last 3 Months or Most Recently Relevant to Health Maintenance Additional Health Concerns Active Problems Noted Date Diagnosed Date Patient on antidepressant monitoring plan 2023 Insurance [employer] MEDICARE ADVANTAGE Care Teams Ship Scraper Relationship Specialty Start Date End Date Jer Rizo MD [address] [place] [address] PCP - General Internal Medicine 01/03/23 Jer Rizo MD [address] [facility] 110 [place] [address] PCP - Sari HERNANDEZ 05/29/24 Aggie Gallardo, ELEMENTARY SPANISH TEACHER-INTERNAL GRINDING MACHINE OPERATOR [address] [facility] 160 [place] [address] Nurse Practitioner Psychiatry 06/13/24 Madyson Figueroa, BETY [address] [facility] [address] [place] [address] Registered Nurse Family Medicine 08/14/24 Braeden Dunham LPC Therapist Behavioral Health 11/25/24
--- OUTSIDE RECORDS SUMMARY | 2024-12-10 10:58 | XMS_ITS | Encounter Summary ---
Author Organization [facility] Address [address] [facility] [place] [address] Care Team Providers Care Marine Gear Keeper Name Role Phone Jer Rizo MD Primary Care Provider [phone] Aggie Gallardo DIGITAL COMPUTER OPERATOR-BLADE OPERATOR Unavailable Jer Rizo MD Unavailable [phone] Madyson Figueroa RN Unavailable [phone] Braeden Dunham LPC Unavailable Unavailable Encounter Details Date Type Department Care Team (Latest Contact Info) Description 12/05/2024 Travel Social History Tobacco Use Types Packs/Day Years [...] and Family Not on file 12/04/2023 Attends [employer] Services Not on file 12/03 Do you belong to any clubs o r organizations such as worship groups, unions, fraternal or athletic groups, or [...] Recorded Patient Health Questionnaire-2 Score 0 10/23/2024 [facility] - Occupational Stress Questionnaire Answer [...] time in the past 12 m [facility], were you homeless or living in a m[facility] (including now)? No 12/04/2023 Education Answer Date [...] Upcoming Encounters Date Type Department Care Team ([facility] st Contact Info) Description 12/17/2024 10:30 AM EDT Office Visit [facility] [address] JOSE ARMANDO [address] [place] [address] Erin Tariq PA [address] Jose Armando [address] [place] [address] 12/23/2024 1:00 PM EDT Office Visit [facility] [address] JOSE ARMANDO [address] [place] [address] Aggie Gallardo, DIGITAL COMPUTER OPERATOR-BLADE OPERATOR [address] Jose Armando [address] [place] [address] 03/06/2025 10:40 AM EDT Office Visit [facility] [address] JOSE ARMANDO [address] [place] [address] Tip Morillo DPYared [address] [facility] [address] [place] [address] documented as of this encounter Goals Goal Patient Goal Type Associated Problems Recent Progress Patient-Stated? Author Help patient manage antidepressant medication Care Plan Patient on antidepressant monitoring plan No Farncia Gannon MA documented as of this encounter Visit Diagnoses Not on filedocumented in this encounter Additional Health Concerns Active Problems Noted Date Diagnosed Date Patient on antidepressant monitoring plan 2023 Assessment Noted Time PHQ-9 Depression Total Score: 15 025 12:54 PM EST documented as of this encounter Care Teams Marine Gear Keeper Relationship Specialty Start Date End Date Jer Rizo MD [address] [facility] [address] [place] [address] PCP - General Internal Medicine 01/03/23 Jer Rizo MD [address] [facility] 110 [place] [address] PCP - Sari HERNANDEZ 05/29/24 Aggie Gallardo APRN-BLADE OPERATOR [address] [facility] [address] [place] [address] Nurse Practitioner Psychiatry 06/13/24 Madyson Figueroa, BETY [address] [facility] 230 [place] [address] Registered Nurse Family Medicine 08/14/24 Braeden Dunham LPC Therapist Behavioral Health 11/25/24 documented as of this encounter
--- OUTSIDE RECORDS SUMMARY | 2024-12-10 10:59 | XMS_ITS | Encounter Summary ---
Author Organization [facility] Address [address] [facility] [place] [address] Care Team Providers Care Real Estate Director Name Role Phone Jer Rizo MD Primary Care Provider [phone] Aggie Gallardo CNP-FIELD TRAINING AGENT Unavailable Jer Rizo MD Unavailable [phone] Madyson Figueroa RN Unavailable [phone] Braeden Dunham LPC Unavailable Unavailable Reason for Visit * Reason Comments Med Refill Encounter Details Date Type Department Care Team (Late st Contact Info) Description 07/07/2024 Refill [facility] [address] [facility] 160 [place] [id number] Aggie Gallardo, CNP-FIELD TRAINING AGENT [address] [facility] 160 [place], [place] [id number] Bipolar affective disorder, currently depressed, moderate (HCC) Social History Tobacco Use Types Packs/Day [...] and Family Not on file 12/04/2023 Attends [employer] Services Not on file 12/03 Do you belong to any clubs o r organizations such as quaker groups, unions, fraternal or athletic groups, or [...] Answer Date Recorded Patient Health Questionnaire-2 Score 3 05/15/2024 [facility] - Occupational Stress Questionnaire Answer Date [...] time in the past 12 m [facility], were you homeless or living in a long term (including now)? No 12/04/2023 Education Answer Date [...] [facility] [address] [facility] 110 [place] [address] Erin Tariq PA [address] [facility] 110 [place] [address] 12/23/2024 1:00 PM EDT Office Visit [facility] [address] [facility] 160 [place] [address] Daily-Aggie Seymour, CNP-FIELD TRAINING AGENT [address] [facility] 160 [place] [address] 03/06/2025 10:40 AM EDT Office Visit [facility] [address] JOSE ARMANDO [address] [place] [address] Tip Morillo DPM [address] [facility] 5 [place] [address] documented as of this encounter Goals Goal Patient Goal Type Associated Problems Recent Progress Patient-Stated? Author Help patient manage antidepressant medication Care Plan Patient on antidepressant monitoring plan Francia Bryant MA documented as of this encounter Visit Diagnoses Diagnosis Bipolar affective disorder, currently depressed, moderate (HCC) Bipolar I disorder, most recent episode (or current) depressed, moderate documented in this encounter Additional Health Concerns Active Problems Noted Date Diagnosed Date Patient on antidepressant monitoring plan 2023 Assessment Noted Time PHQ-9 Depression Total Score: 19 024 1:32 PM EST documented as of this encounter Care Teams Real Estate Director Relationship Specialty Start Date End Date Jer Rizo MD [address] Jose Armando [address] [place] [address] PCP - General Internal Medicine 01/03/23 Jer Rizo MD [address] Jose Armando [address] [place] [address] PCP - Sari HERNANDEZ 05/29/24 Aggie Gallardo APRN-FIELD TRAINING AGENT [address] Jose Armando [address] [place] [address] Nurse Practitioner Psychiatry 06/13/24 Madyson Figueroa, BETY [address] Jose Armando [address] [place] [address] Registered Nurse Family Medicine 08/14/24 Braeden Dunham LPC Therapist Behavioral Health 11/25/24 documented as of this encounter
--- OUTSIDE RECORDS SUMMARY | 2024-12-10 10:59 | XMS_ITS | Encounter Summary ---
Author Organization [facility] Address [address] [facility] [place] [address] Care Team Providers Care Readiness Paraprofessional Name Role Phone Jer Rizo MD Primary Care Provider [phone] Jer Rizo MD Unavailable [phone] Aggie Gallardo SERVICE DESK TECHNICIAN-RN LPN LVN Unavailable Jer Rizo MD Unavailable [phone] Madyson Figueroa RN Unavailable [phone] Braeden Dunham LPC Unavailable Unavailable Encounter Details Date Type Department Care Team (Late st Contact Info) Description 04/30/2024 Abstract [facility] 112 [facility] 110 [place] [id number] Jer Rizo MD 112 [facility] 110 [place] [address] Social History Tobacco Use Types [...] any clubs o r organizations such as jew groups, unions, fraternal or athletic groups, or [...] Date Recorded Patient Health Questionnaire-2 Score 4 04/17/2024 [facility] - Occupational Stress Questionnaire Answer [...] any time in the past 12 m [facility], were you homeless or living [...] [address] JOSE ARMANDO [address] [place] [address] Erin Tariq PA [address] Jose Armando [address] [place] [address] 12/23/2024 1:00 PM EDT Office Visit [facility] [address] JOSE ARMANDO [address] [place] [address] Aggie Gallardo, SERVICE DESK TECHNICIAN-RN LPN LVN [address] Jose Armando [address] [place] [address] 03/06/2025 10:40 AM EDT Office Visit [facility] [address] JOSE ARMANDO [address] [place] [address] Tip Morillo DPM [address] [facility] 5 [place] [address] documented as of this encounter Goals Goal [...] Assessment Noted Time PHQ-9 Depression Total Score: 23 04/17/ 024 1:56 PM EST documented as of this encounter Care Teams Readiness Paraprofessional Relationship Specialty Start Date End Date Jer Rizo MD [address] Jose Armando [address] [place] [address] PCP - General Internal Medicine 01/03/23 Jer Rizo MD [address] Jose Armando [address] [place] [address] PCP - Devoted 05/29/23 05/28/24 Jer Rizo MD [address] Jose Armando [address] [place] [address] PCP - Sari HERNANDEZ 05/29/24 Aggie Gallardo APRN-RN LPN LVN [address] Jose Armando [address] [place] [address] Nurse Practitioner Psychiatry 06/13/24 Madyson Figueroa, BETY [address] [facility] 230 [place] [address] Registered Nurse Family Medicine 08/14/24 Braeden Dunham LPC Therapist Behavioral Health 11/25/24 documented as of this encounter
--- OUTSIDE RECORDS SUMMARY | 2024-12-10 10:59 | XMS_ITS | Encounter Summary ---
Author Organization [facility] Address [address] [facility] [place] [address] Care Team Providers Care Passenger Service Supervisor Name Role Phone Jer Rizo MD Primary Care Provider [phone] Jer Rizo MD Unavailable [phone] Aggie Gallardo RECREATION FACILITY MANAGER-STUNNER AND SHACKLER Unavailable Jer Rizo MD Unavailable [phone] Madyson Figueroa RN Unavailable [phone] Braeden Dunham LPC Unavailable Unavailable Encounter Details Date Type Department Care Team (Late st Contact Info) Description 03/25/2024 Abstract [facility] 112 [facility] 110 [place] [phone] Jer Rizo MD 112 [facility] 110 [place] [address] Social History Tobacco Use Types [...] Recorded Patient Health Questionnaire-2 Score 2 12/06/2023 [facility] Occupat ional [facility] - Occupational Stress Questionnaire Answer [...] any time in the past 12 m [facility], were you homeless or [...] [address] JOSE ARMANDO [address] [place] [address] Erin Tariq PA [address] Jose Armando [address] [place] [address] 12/23/2024 1:00 PM EDT Office Visit [facility] [address] JOSE ARMANDO [address] [place] [address] Aggie Gallardo, RECREATION FACILITY MANAGER-STUNNER AND SHACKLER [address] Jose Armando [address] [place] [address] 03/06/2025 10:40 AM EDT Office Visit [facility] [address] JOSE ARMANDO [address] [place] [address] Tip Morillo DPM [address] [facility] 5 [place] [address] documented as of this encounter Goals Goal [...] documented as of this encounter Care Teams Passenger Service Supervisor Relationship Specialty Start Date End Date Jer Rizo MD [address] Jose Armando [address] [place] [address] PCP - General Internal Medicine 01/03/23 Jer Rizo MD [address] Jose Armando [address] [place] [address] PCP - Devoted 05/29/23 05/28/24 Jer Rizo MD [address] Jose Armando [address] [place] [address] PCP - Sari HERNANDEZ 05/29/24 Aggie Gallardo APRN-STUNNER AND SHACKLER [address] Jose Armando [address] [place] [address] Nurse Practitioner Psychiatry 06/13/24 Madyson Figueroa, BETY [address] Jose Armando [address] [place] [address] Registered Nurse Family Medicine 08/14/24 Braeden Dunham LPC Therapist Behavioral Health 11/25/24 documented as of this encounter
--- OUTSIDE RECORDS SUMMARY | 2024-12-10 10:59 | XMS_ITS | Encounter Summary ---
Author Organization [facility] Address [address] [facility] [place] [address] Care Team Providers Care Brass Finisher Name Role Phone Jer Rizo MD Primary Care Provider [phone] Aggie Gallardo BONDING EQUIPMENT OPERATOR-MASTIC MAN Unavailable Jer Rizo MD Unavailable [phone] Madyson Figueroa RN Unavailable [phone] Braeden Dunham LPC Unavailable Unavailable Reason for Visit * Reason Comments Med Change Request Encounter Details Date Type Department Care Team (Late st Contact Info) Description 06/06/2024 Refill [facility] [address] [facility] 160 [place] [address] Aggie Gallardo, BONDING EQUIPMENT OPERATOR-MASTIC MAN [address] [facility] 160 [place], [place] [id number] Bipolar affective disorder, currently depressed, moderate (HCC) [...] and Family Not on file 12/04/2023 Attends [employer] Services Not on file 12/03 Do you belong to any clubs o r organizations such as tenriism groups, unions, fraternal or athletic groups, or [...] Recorded Patient Health Questionnaire-2 Score 3 05/15/2024 [facility] - Occupational Stress Questionnaire Answer [...] any time in the past [address] [facility], were you homeless or living in a [...] Visit [facility] [address] [facility] 110 [place] [address] Erin Tariq PA [address] [facility] 110 [place] [address] 12/23/2024 1:00 PM EDT Office Visit [facility] [address] [facility] 160 [place] [address] Daily-Aggie Seymour, BONDING EQUIPMENT OPERATOR-MASTIC MAN [address] [facility] 160 [place] [address] 03/06/2025 10:40 AM EDT Office Visit [facility] [address] JOSE ARMANDO [address] [place] [address] Tip Morillo DPM 3006 [facility] 5 [place] [address] documented as of this encounter Goals Goal [...] documented as of this encounter Care Teams Brass Finisher Relationship Specialty Start Date End Date Jer Rizo MD [address] Jose Armando [address] [place] [address] PCP - General Internal Medicine 01/03/23 Jer Rizo MD [address] Jose Armando [address] [place] [address] PCP - Sari HERNANDEZ 05/29/24 Aggie Gallardo APRN-MASTIC MAN [address] Jose Armando [address] [place] [address] Nurse Practitioner Psychiatry 06/13/24 Madyson Figueroa, BETY [address] Jose Armando [address] [place] [address] Registered Nurse Family Medicine 08/14/24 Braeden Dunham LPC Therapist Behavioral Health 11/25/24 documented as of this encounter
--- OUTSIDE RECORDS SUMMARY | 2024-12-10 10:59 | XMS_ITS | Encounter Summary ---
Author Organization [facility] Address [address] [facility] [place] [address] Care Team Providers Care Principal Biostatistician Name Role Phone Jer Rizo MD Primary Care Provider [phone] Jer Rizo MD Unavailable [phone] Aggie Gallardo PHYSICIAN GYNECOLOGIST-.NET ARCHITECT Unavailable Jer Rizo MD Unavailable [phone] Madyson Figueroa RN Unavailable [phone] Braeden Dunham LPC Unavailable Unavailable Encounter Details Date Type Department Care Team (Late st Contact Info) Description 04/30/2024 Abstract [facility] 112 [facility] 110 [place] [phone] Jer Rizo MD 112 [facility] 110 [place] [address] Social History Tobacco Use Types [...] and Family Not on file 12/04/2023 Attends [employer] Services Not on file 12/03 Do you belong to any clubs o r organizations such as orthodox groups, unions, fraternal or athletic groups, [...] Recorded Patient Health Questionnaire-2 Score 4 04/17/2024 [facility] - Occupational Stress Questionnaire Answer [...] any time in the past 12 m [facility], were you homeless or living in a half-way (including now)? No 12/04/2023 Education Answer Date [...] [address] JOSE ARMANDO [address] [place] [address] Erin Tariq PA [address] Jose Armando [address] [place] [address] 12/23/2024 1:00 PM EDT Office Visit [facility] [address] JOSE ARMANDO [address] [place] [address] Aggie Gallardo, PHYSICIAN GYNECOLOGIST-.NET ARCHITECT [address] Jose Armando [address] [place] [address] 03/06/2025 10:40 AM EDT Office Visit [facility] [address] JOSE ARMANDO [address] [place] [address] Tip Morillo DPM 3006 [facility] 5 [place] [address] documented as of this encounter Goals Goal [...] documented as of this encounter Care Teams Principal Biostatistician Relationship Specialty Start Date End Date Jer Rizo MD [address] Jose Armando [address] [place] [address] PCP - General Internal Medicine 01/03/23 Jer Rizo MD [address] Jose Armando [address] [place] [address] PCP - Devoted 05/29/23 05/28/24 Jer Rizo MD [address] Jose Armando [address] [place] [address] PCP - Sari HERNANDEZ 05/29/24 Aggie Gallardo APRN-.NET ARCHITECT [address] Jose Armando [address] [place] [address] Nurse Practitioner Psychiatry 06/13/24 Madyson Figueroa, BETY [address] [facility] 230 [place] [address] Registered Nurse Family Medicine 08/14/24 Braeden Dunham LPC Therapist Behavioral Health 11/25/24 documented as of this encounter
--- OUTSIDE RECORDS SUMMARY | 2024-12-10 10:59 | XMS_ITS | Encounter Summary ---
Author Organization [facility] Address [address] [facility] [place] [address] Care Team Providers Care Cold Mill Supervisor Name Role Phone Jer Rizo MD Primary Care Provider [phone] Jer Rizo MD Unavailable [phone] Aggie Gallardo FUNERAL HOME LOCATION MANAGER-NANNY CAREGIVER Unavailable Jer Rizo MD Unavailable [phone] Madyson Figueroa RN Unavailable [phone] Braeden Dunham LPC Unavailable Unavailable Encounter Details Date Type Department Care Team (Late st Contact Info) Description 02/22/2024 Abstract [facility] 112 [facility] 110 [place] [id number] Jer Rizo MD 112 [facility] 110 [place] [address] Social History Tobacco Use Types [...] any clubs o r organizations such as roman catholic groups, unions, fraternal or athletic groups, or [...] Recorded Patient Health Questionnaire-2 Score 2 12/06/2023 [facility] Occupat ional [facility] - Occupational Stress Questionnaire Answer Date [...] any time in the past 12 m [facility], were you homeless or living in a chcf (including now)? No 12/04/2023 Comments Unknown Sex [...] FM [address] JOSE ARMANDO 110 [place] [address] Erin Tariq, PA [address] Jose Armando 110 [place] [address] 12/23/2024 1:00 PM EDT Office Visit [facility] BH [address] JOSE ARMANDO 160 [place] [address] Aggie Gallardo, FUNERAL HOME LOCATION MANAGER-NANNY CAREGIVER [address] Jose Armando 160 [place] [address] 03/06/2025 10:40 AM EDT Office Visit [facility] PODIATRY [address] JOSE ARMANDO 120 [place] [address] Tip Morillo DPYared [address] [facility] 5 [place] [address] documented as of this encounter [...] documented as of this encounter Care Teams Cold Mill Supervisor Relationship Specialty Start Date End Date Jer Rizo MD [address] [facility] 110 [place] [address] PCP - General Internal Medicine 01/03/23 Jer Rizo MD [address] [facility] 110 [place] [address] PCP - Devoted 05/29/23 05/28/24 Jer Rizo MD [address] [facility] 110 [place] [address] PCP - Sari HERNANDEZ 05/29/24 Aggie Gallardo APRN-NANNY CAREGIVER [address] [facility] 160 [place] [address] Nurse Practitioner Psychiatry 06/13/24 Madyson Figueroa RN [address] Jose Armando 230 [place] [address] Registered Nurse Family Medicine 08/14/24 Braeden Dunham LPC Therapist Behavioral Health 11/25/24 documented as of this encounter
--- NOTE | 2024-12-10 11:14 | XR_ITS ---
The [address] [address] Patient Name: MALCOLM RECIO MRN: [id number] date: 1960 Sex: F Assigned Patient Location: [facility] Current Patient Location: [facility] Accession/Order Number: [id number] Exam Date: 12/10/2024 15:03 Report Date: 12/10/2024 15:05 At the request of: CLAYTON MICHELLE NP Procedure: XR cervical spine 5V 5 views of thecervical spine HISTORY: Chronic neck pain. History of fibromyalgia COMPARISON: CT of the neck 03/18/2024 POSTOPERATIVE CHANGES: None BONY ALIGNMENT: Similar mild reversal HYPERMOBILITY::No bending imaging. LISTHESIS:None FRACTURE: None DISC DEGENERATION: Redemonstration of mild cervical spondylosis greatest at the C4-5 level. FACETS: Similar moderate degenerative changes FORAMEN: Moderate C4-C7 bilateral bony neural foraminal narrowing DENS: Intact CRANIOCERVICAL JUNCTION: Unremarkable SOFT TISSUES: Unremarkable XR/XR cervical spine 5V IMPRESSION: Similar extensive multilevel cervical spine degeneration greatest at the C4-5 level. Impression dictated by: Mauri Blackwell M.D. 12/10/2024 3:05 PM Dictation Location: [place] [address] Electronically authenticated by: [id number] Y Date: 12/10/2024 15:05
== END 2024-12-10 10:50 | disposition home or self-care (01) ==
LOC: RAD 10:53
PROVIDERS: PCP Internal Medicine; Visit Provider Nurse Practitioner
DX: M47.812 Spondylosis without myelopathy or radiculopathy, cervical region (principal); M50.30 Other cervical disc degeneration, unspecified cervical region
CPT/HCPCS: 72050

== ENCOUNTER 2024-12-12 10:46 | Outpatient (OUT) | payer MEDICARE, SELFPAY ==
--- OUTSIDE RECORDS SUMMARY | 2024-12-05 11:10 | XMS_ITS | Encounter Summary ---
Author Organization [facility] Address [address] [place] [address] Care Team Providers Care Electric Sign Assembler Name Role Phone Jer Rizo MD Primary Care Provider [phone] Aggie Gallardo SENIOR PREMIUM AUDITOR-BATTERY CHARGER TESTER Unavailable Jer Rizo MD Unavailable [phone] Madyson Figueroa RN Unavailable [phone] Braeden Dunham LPC Unavailable Unavailable Reason for Visit * Reason Comments DM Foot Care Encounter Details Date Type Department Care Team (Late st Contact Info) Description 12/05/2024 11:10 AM EDT [facility] [address] [facility] [address] [place] [address] Tip Morillo, DPM 3[address] [facility] 5 [place] [address] Xerosis cutis (Primary Dx); Diabetes 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, unspecified whether exterminator termite insulin use (HCC); Pain due to onychomycosis of toenails of both feet; Venous insufficiency Social History Tobacco Use Types Packs/Day Years Used Date Smoking Tobacco: Never Smokeless Tobacco: Never Tobacco Cessation:Counseling Given: Yes Alcohol Use Standard Drinks/Week Comments Not Currently 0 (1 standard drink = 0.6 oz pure alcohol) Caffeine intake: 2 cups per day coffee, tea B1300 Health Literacy Answer Date Recor ded How often do you need to hav e someone help you when you read instructions, pamphlets, or other written material from your doctor or pharmacy? Sometimes 12/04/2023 Social Connection and Isolation Panel [NHANES] A nswer Date Recorded In a typical week, how many times do you talk on the phone with family, friends, or neighbors? Once a week 12/04/2023 Frequency of Social Gatherings with Friends and Family Not on file 12/04/2023 Attends Yarsani Services Not on file 12/03 Do you belong to any clubs o r organizations such as sabianism groups, unions, fraternal or athletic groups, or school groups? No 12/04/2023 How often do you attend meet ings of the clubs or organizations you belong to? Never 12/04/2023 Are you , , di vorced, , never , or living with a partner? 12/04/2023 AUDIT-C Answer Date Recorded Q1: How often do you have a drink containing alcohol? Patient declined 12/04/2023 Q2: How many drinks containi ng alcohol do you have on a typical day when you are drinking? Patient does not drink Q3: How often do you have si x or more drinks on one occasion? Never 12/04/2023 Overall Financial Resource Strain (CARDIA) Answe r Date Recorded How hard is it for you to pa y for the very basics like food, housing, medical care, and heating? Hard 12/04/2023 PHQ-2 Answer Date Recorded Patient Health Questionnaire-2 Score 0 10/23/2024 [facility] - Occupational Stress Questionnaire Answer Date Recorded Do you feel stress - tense, restless, nervous, or anxious, or unable to sleep at night because your mind is troubled all the time - these days? To some extent 12/04/2023 Exercise Vital Sign Answer Date Recorde d On average, how many days pe r week do you engage in moderate to strenuous exercise (like a brisk walk)? 0 days 12/04/2023 On average, how many minutes do you engage in exercise at this level? 0 min 12/04/2023 Hunger Vital Sign Answer Date Recorded Within the past 12 months, y ou worried that your food would run out before you got the money to buy more. Sometimes true Within the past 12 months, t he food you bought just didn't last and you didn't have money to get more. Never true 12/2023 PRAPARE - Transportation Answer Date Re corded In the past 12 months, has l ack of transportation kept you from medical appointments or from getting medications? Yes 12/2023 In the past 12 months, has l ack of transportation kept you from meetings, work, or from getting things needed for daily living? No 12/04/2023 Housing Stability Vital Sign Answer Patrick e Recorded In the last 12 months, was t here a time when you were not able to pay the mortgage or rent on time? No 12/04/2023 In the past 12 months, how m any times have you moved where you were living? 0 12/04/2023 At any time in the past 12 m onths, were you homeless or living in a fdc (including now)? No 12/04/2023 Education Answer Date Recorded What is the highest level of school you have completed or the highest degree you have received? High school graduate 03/14/2024 Comments Unknown Sex and Gender Information Value Date Recorded Sex Assigned at Female 12/27/2022 1:17 PM EDT Legal Sex Female 6:56 PM EDT Gender Identity Female 12/27/2022 1:17 PM EDT Sexual Orientation Not on file documented as of this encounter Last Filed Vital Signs Vital Sign Reading Time Taken Comments Blood Pressure - - Pulse - - Temperature - - Respiratory Rate 18 12/05/2024 11:25 AM EDT Oxygen Saturation - - Inhaled Oxygen Concentration - - Weight 120 kg (264 lb) 12/05/2024 11:25 AM EDT Height 149.9 cm (4' 11 ) 12/05/2024 11:25 AM EDT Body Mass Index 53.32 12/05/2024 11:25 AM EDT documented in this encounter Progress Notes * Tip Morillo DPM - 12/05/2024 11:10 AM EDT Patient: Sanna Corrales : 1960 PCP: Jer Rizo MD SUBJECTIVE This is a 64 y.o. female that presents today with a CC of elongated, thick nails. Pt states nails have been elongated and thick for many years and cause pain with ambulation in shoegear. Pt has tried previous treatment with minimal relief. Pt presents today for nail care and treatment. Patient is DM2 Patient also presents today for follow-up of dry skin and fissures to feet and has not been using prescribed or recommended lwel-soy-kcshfek cream with some improvement. Pt also has history of venous stasis to b/l lower extremities Allergies: Allergies Allergen Reactions Ambien [Zolpidem] Other Terrible nightmares Cefdinir Hives Ibandronate Hives Nabumetone Other Reaction(s): PT DOESN'T REMEMBER Penicillin G Other Reaction(s): fever, hives Sulfanilamide Other Reaction(s): Fever,hives Zoloft [Sertraline] Unusual behaviors Past Medical History: Past Medical History: Diagnosis Date Abnormal finding on radiological examination of breast Adult respiratory distress syndrome (HCC) 2013 Allergic Allergic rhinitis due to allergen Arthritis Asthma ([facility]) Bipolar 1 disorder ([facility]) 1991 most recent episode (or current) depressed, unspecified Bronchitis Calculus of gallbladder without mention of cholecystitis or obstruction Carpal tunnel syndrome left Cataract Cholecystitis Closed fracture of ankle Congenital heart failure ([facility]) COPD (chronic obstructive pulmonary disease) ([facility]) Degeneration of lumbar or lumbosacral intervertebral disc Diabetes mellitus ([facility]) without mention of complication, type II or unspecified type, not stated as uncontrolled Disease of thyroid gland Dry eyes Essential hypertension, benign Essential hypertension, malignant Extremity ischemia 2013 rt lower Fracture ankle Headache Hernia of abdominal wall without mention of obstruction or gangrene History of being hospitalized 06/06/2022 AMS due to Med Overuse, Hypoxia, Fall, Acute on Chronic RF Hx of migraine headaches Hypertension Hypothyroidism IBS (irritable bowel syndrome) Influenza with pneumonia Manic episode ([facility]) 1984 Meniere disease Morbid obesity ([facility]) Myalgia and myositis Osteoarthritis Osteoporosis Personal history of medical treatment 2013 cardiopulmonary collapse and acute respiratory failure( Respiratory failure ([facility]) Rheumatoid arthritis ([facility]) Rotator cuff tear right Skin lesion Spondylosis unspecified site without mention of myelopathy Suicidal ideations 2012 Thyroid disease Medications: Current Outpatient Medications: albuterol (2.5 MG/3ML) 0.083% nebulizer solution, Take 3 mL (2.5 mg) by nebulization every 8 (eight) hours., Disp: 75 mL, Rfl: 5 albuterol HFA (Ventolin HFA) 90 mcg/act inhaler, Inhale 2 puffs every 4 (four) hours if needed for wheezing or shortness of breath, Disp: 18 g, Rfl: 5 Bacillus Coagulans-Inulin (Probiotic Formula) 1-250 BILLION-MG capsule, Take 1 capsule by mouth at noon and 1 capsule in the evening., Disp: 60 capsule, Rfl: 2 baclofen (Lioresal) 10 MG tablet, TAKE 1 TABLET BY MOUTH THREE TIMES A DAY NEEDED, Disp: 270 tablet, Rfl: 1 Blood Glucose Monitoring Suppl device, USE DIRECTED, Disp: 100 strip, Rfl: 2 Zxtrolz-Uhuviyibaus-Zurvskgxqn (Breztri Aerosphere) 160-9-4.8 MCG/ACT aerosol, Inhale 2 puffs in the morning and 2 puffs before bedtime. Rinse mouth after each use., Disp: 10.7 g, Rfl: 5 Cariprazine HCl (Vraylar) 3 MG capsule, Take 1 capsule by mouth at bedtime, Disp: 90 capsule, Rfl: 0 Continuous Glucose Metaphysicist (FreeStyle Gomez 3 [place]) device, 1 Device continuously, Disp: 1 each,Rfl: 0 Continuous Glucose Sensor (FreeStyle Gomez 3 Plus Sensor) mis, 1 each Every 15 Days, Disp: 6 each,Rfl: 3 [employer] Genuine Aspirin 325 MG tablet, Take 325 mg by mouth Daily, Disp: , Rfl: dapagliflozin (Farxiga) 10 MG, TAKE 1 TABLET BY MOUTH EVERY DAY, Disp: 100 tablet, Rfl: 3 escitalopram (Lexapro) 20 MG tablet, Take 1 tablet (20 mg) by mouth Daily, Disp: 30 tablet, Rfl: 1 fluticasone (Flonase) 50 MCG/ACT nasal spray, USE 1 SPRAY IN EACH NOSTRIL ONCE A DAY *SHAKE GENTLY/PRIME PUMP/CLEAN TIP AND REPLACE CAP*, Disp: 48 mL, Rfl: 1 furosemide (Lasix) 40 MG tablet, TAKE 1 TABLET BY MOUTH TWICE A DAY, Disp: 180 tablet, Rfl: 4 gabapentin (Neurontin) 600 MG tablet, TAKE 1 TABLET TWICE A DAY AND 2 AT BEDTIME, Disp: 400 tablet,Rfl: 1 Glutose 15 40 % gel oral gel, Take 15 g by mouth if needed for low blood sugar, Disp: , Rfl: hydrOXYzine pamoate (Vistaril) 25 MG capsule, Take 1 capsule (25 mg) by mouth every 8 (eight) hoursif needed for anxiety, Disp: 30 capsule, Rfl: 2 lamoTRIgine (LaMICtal) 200 MG tablet, Take 1 tablet (200 mg) by mouth at bedtime, Disp: 90 tablet, Rfl: 0 Lancets 30G misc, 1 each in the morning. Check blood glucose daily.., Disp: 100 each, Rfl: 3 Lantus SoloStar 100 UNIT/ML pen, Inject 20 Units under the skin in the morning., Disp: , Rfl: levothyroxine (Synthroid, Levoxyl) 112 MCG tablet, Take 1 tablet (112 mcg) by mouth in the morning., Disp: 100 tablet, Rfl: 3 metoprolol tartrate (Lopressor) 25 MG tablet, TAKE 1 TABLET BY MOUTH IN THE MORNING AND BEFORE BEDTIME, Disp: 180 tablet, Rfl: 4 Multiple Vitamin (MULTIVITAMIN ADULT PO), Take 1 tablet by mouth Daily, Disp: , Rfl: OXYGEN-HELIUM IN, 3 LPM through [facility], Disp: , Rfl: potassium chloride CR (Klor-Con) 10 MEQ ER tablet, Take 10 mEq by mouth Daily, Disp: , Rfl: rosuvastatin (Crestor) 5 MG tablet, TAKE 1 TABLET BY MOUTH EVERY DAY, Disp: 90 tablet, Rfl: 1 Semaglutide,0.25 or 0.5MG/DOS, (Ozempic, 0.25 or 0.5 MG/DOSE,) 2 MG/3ML solution pen-injector, Inject 0.5 mg under the skin 1 (one) time per week, Disp: , Rfl: traMADol (Ultram) 50 MG tablet, Take 1 tablet by mouth as needed in the morning and 1 tablet as needed at noon and 1 tablet as needed in the evening for moderate pain., Disp: , Rfl: traZODone (Desyrel) 100 MG tablet, Take 1.5 tablets (150 mg) by mouth at bedtime, Disp: , Rfl: triamcinolone (Kenalog) 0.5 % cream, APPLY 1 APPLICATION EXTERNALLY ONCE A DAY NEEDED 7 DAY(S), Disp: 30 g, Rfl: 2 Social History: Social History Socioeconomic History Marital status: Spouse name: Not on file Number of children: 0 Years of education: Not on file Highest education level: High school graduate Occupational History Not on file Tobacco Use Smoking status: Never Smokeless tobacco: Never Vaping Use Vaping status: Never Used Substance and Sexual Activity Alcohol use: Not Currently Comment: Caffeine intake: 2 cups per day coffee, tea Drug use: Never Sexual activity: Not on file Other Topics Concern Not on file Social History Narrative Not on file Social Drivers of Health Financial Resource Strain: High Risk (12/04/2023) Overall Financial Resource Strain (CARDIA) Difficulty of Paying Living Expenses: Hard Food Insecurity: Food Insecurity Present (12/04/2023) Hunger Vital Sign Worried About Running Out of Food in the Last Year: Sometimes true Ran Out of Food in the Last Year: Never true Transportation Needs: Unmet Transportation Needs (12/04/2023) PRAPARE - Transportation Lack of Transportation (Medical): Yes Lack of Transportation (Non-Medical): No Physical Activity: Inactive (12/04/2023) Exercise Vital Sign Days of Exercise per Week: 0 days Minutes of Exercise per Session: 0 min Stress: Stress Concern Present (12/04/2023) [employer] [facility] [employer] - Occupational Stress Questionnaire Feeling of Stress : To some extent Social Connections: Unknown (12/04/2023) Social Connection and Isolation Panel [NHANES] Frequency of Communication with Friends and Family: Once a week Frequency of Social Gatherings with Friends and Family: Not on file Attends Yarsani Services: Not on file Active Member of Clubs or Organizations: No Attends Club or Organization Meetings: Never Marital Status: Intimate Partner Violence: Unknown (07/20/2023) Received from [facility] [place] Safety & Environment Fear of Current or Ex-Partner: Not on file Emotionally Abused: Not on file Physically Abused: Not on file Sexually Abused: Not on file Physically or Sexually Abused: Not on file Housing Stability: Low Risk (12/04/2023) Housing Stability Vital Sign Unable to Pay for Housing in the Last Year: No Number of Times Moved in the Last Year: 0 Homeless in the Last Year: No ROS: Gastrointestinal: denies abdominal pain, ulcers, or changes in appetite or bowel habits Musculoskeletal: Positive generalized arthritis to joints and denies loss of strength. Cardiovascular: denies CP, palpitations, irregular rhythms OBJECTIVE LE EXAM: DERM: Elongated thick yellow crumbly nails digits 1 through 10. Negative hair growth with thin shiny atrophic skin bilaterally +1 pitting edema to bilateral ankles with diminished dry and scaly skin noted to bilateral feet andankle regions VASC: positive DP and negative PT pedal pulses NEURO: 5.07 [place] Faye monofilament test intact to digits and forefoot bilaterally 125Hz tuning fork diminished to 1st MPJ bilaterally ORTHO: Positive pain on palpation to toenails of the left 1,2,3,4,5 toes and right 1,2,3,4,5 toes ASSESSMENT 1. Diabetes 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, unspecified whether [facility] insulin use (HCC) 2. Pain due to onychomycosis of toenails of both feet 3. Venous insufficiency 4. Xerosis cutis PLAN Discussed proper foot care with patient today. Debride nails in length and thickness digits 1 through 10 Patient educated today on proper diabetic foot care including monitoring feet daily for any signs of infection openings in the skin or irregularities to both feet. Patient had a diabetic neurologicalexam today to both their feet and discussed proper shoe gear. Visit spent with patient education on condition and treatment of condition. Pt to continue with elevation of feet while resting or NWB. Pt encouraged to continue with hydrating creams to feet with offer for medication and/or prescription refill. Tip Morillo DPM documented in this encounter Plan of Treatment Upcoming Encounters Date Type Department Care Team (Late st Contact Info) Description 12/17/2024 10:30 AM EDT [facility] Visit [facility] [address] [facility] [address] [place] [address] Erin Tariq PA 112 [facility] [address] [place] [address] 12/23/2024 1:00 PM EDT Office Visit [facility] [address] [facility] [address] [place] [id number] Aggie Gallardo, SENIOR PREMIUM AUDITOR-BATTERY CHARGER TESTER 112 [facility] 160 [place] [address] 03/06/2025 10:40 AM EDT Office Visit [facility] [address] [facility] [address] [place] [address] Tip Morillo DPM 3006 [facility] 5 [place] [address] documented as of this encounter Goals Goal Patient Goal Type Associated Problems Recent Progress Patient-Stated? 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, unspecified whether exterminator termite insulin use (HCC) Pain due to onychomycosis of toenails of both feet Venous insufficiency Unspecified venous (peripheral) insufficiency documented in this encounter Additional Health Concerns Active Problems Noted Date Diagnosed Date Patient on antidepressant monitoring plan 2023 Assessment Noted Time PHQ-9 Depression Total Score: 15 025 12:54 PM EST documented as of this encounter Care Teams Electric Sign Assembler Relationship Specialty Start Date End Date Jre Rizo MD [address] [facility] [address] [place] [address] PCP - General Internal Medicine 01/03/23 Jer Rizo MD [address] [facility] [address] [place] [address] PCP - Sari HERNANDEZ 05/29/24 Aggie Gallardo APRN-BATTERY CHARGER TESTER [address] [facility] [address] [place] [address] Nurse Practitioner Psychiatry 06/13/24 Madyson Figueroa, BETY [address] [facility] [address] [place] [address] Registered Nurse Family Medicine 08/14/24 Braeden Dunham LPC Therapist Behavioral Health 11/25/24 documented as of this encounter
--- OUTSIDE RECORDS SUMMARY | 2024-12-12 10:48 | XMS_ITS | Encounter Summary ---
Author Organization [facility] Address [address] [facility] [place] [address] Care Team Providers Care Balloon Pilot Name Role Phone Jer Rzio MD Primary Care Provider [phone] Aggie Gallardo FACILITY ADMINISTRATOR-RUG DESIGNER Unavailable Jer Rizo MD Unavailable [phone] Madyson Figueroa RN Unavailable [phone] Braeden Dunham LPC Unavailable Unavailable Encounter Details Date Type Department Care Team (Late st Contact Info) Description 10/16/2024 Abstract [facility] FM 112 [facility] 110 [place] [address] Jer Rizo MD 112 [facility] 110 [place] [address] Social History Tobacco Use Types [...] and Family Not on file 12/04/2023 Attends Roman Catholic Services Not on file 12/03 Do you belong to any clubs o r organizations such as mandaen groups, unions, fraternal or athletic groups, or [...] Recorded Patient Health Questionnaire-2 Score 2 07/30/2024 [facility] Occupat ional Health - [...] were you homeless or living in a nursing home (including now)? No 12/04/2023 Education Answer [...] [address] JOSE ARMANDO 110 [place] [address] Erin Tariq PA [address] Jose Armando 110 [place] [address] 12/23/2024 1:00 PM EDT Office Visit [facility] [address] JOSE ARMANDO 160 [place] [address] Aggie Gallardo, FACILITY ADMINISTRATOR-RUG DESIGNER [address] Jose Armando 160 [place] [address] 03/06/2025 10:40 AM EDT Office Visit [facility] POD[facility]ATRY [address] JOSE ARMANDO 120 [place] [address] Tip Morillo DPM 3006 [facility] 5 [place] [address] documented as of this encounter Goals Goal [...] documented as of this encounter Care Teams Balloon Pilot Relationship Specialty Start Date End Date Jer Rizo MD [address] [facility] 110 [place] [address] PCP - General Internal Medicine 01/03/23 Jer Rizo MD [address] [facility] 110 [place] [address] PCP - Sari HERNANDEZ 05/29/24 Aggie Gallardo APRN-RUG DESIGNER [address] [facility] 160 [place] [address] Nurse Practitioner Psychiatry 06/13/24 Madyson Figueroa, BETY [address] [facility] 230 [place] [address] Registered Nurse Family Medicine 08/14/24 Braeden Dunham LPC Therapist Behavioral Health 11/25/24 documented as of this encounter
--- OUTSIDE RECORDS SUMMARY | 2024-12-12 10:48 | XMS_ITS ---
Author Organization [facility] Address [address] [facility] [place] [address] Care Team Providers Care Hvac Instructor Name Role Phone Jer Rizo MD Primary Care Provider [phone] Aggie Gallardo COMMERCIAL LINES SALES EXECUTIVE-BRIM EDGE TRIMMER Unavailable Jer Rizo MD Unavailable [phone] Madyson Figueroa RN Unavailable [phone] Braeden Dunham LPC Unavailable Unavailable Chronic Care [...] Madyson Figueroa RN(Responsible Staff) Registere stephan Nurse [phone] Continued Care and Services Coordination
--- OUTSIDE RECORDS SUMMARY | 2024-12-12 10:48 | XMS_ITS | Encounter Summary ---
Author Organization [facility] Address [address] [facility] [place] [address] Care Team Providers Care Chief Risk Officer Name Role Phone Jer Rizo MD Primary Care Provider [phone] Aggie Gallardo DRILLING CONTRACTOR-THERAPEUTIC RIDING INSTRUCTOR Unavailable Jer Rizo MD Unavailable [phone] Madyson Figueroa RN Unavailable [phone] Braeden Dunham LPC Unavailable Unavailable Encounter Details Date Type Department Care Team (Late st Contact Info) Description 08/08/2024 Abstract [facility] FM [address] [facility] 110 [place] [address] Jer Rizo MD 112 [facility] 110 [place] [address] Social History Tobacco Use Types [...] and Family Not on file 12/04/2023 Attends Islam Services Not on file 12/03 Do you belong to any clubs o r organizations such as congregation groups, unions, fraternal [...] Recorded Patient Health Questionnaire-2 Score 2 07/30/2024 [facility] of Occupat ional Health - Occupational Stress [...] any time in the past 12 m [facility], were you homeless or living in [...] [address] JOSE ARMANDO [address] [place] [address] Erin Tariq PA [address] Jose Armando 110 [place] [address] 12/23/2024 1:00 PM EDT Office Visit [facility] [address] JOSE ARMANDO 160 [place] [address] Aggie Gallardo, DRILLING CONTRACTOR-THERAPEUTIC RIDING INSTRUCTOR [address] Jose Armando 160 [place] [address] 03/06/2025 10:40 AM EDT Office Visit [facility]OD[facility] [address] JOSE ARMANDO 120 [place] [address] Tip Morillo DPM 3006 [facility] 5 [place] [address] documented as of this encounter Goals Goal [...] documented as of this encounter Care Teams Chief Risk Officer Relationship Specialty Start Date End Date Jer Rizo MD [address] [facility] 110 [place] [address] PCP - General Internal Medicine 01/03/23 Jer Rizo MD [address] [facility] 110 [place] [address] PCP - Sari HERNANDEZ 05/29/24 Aggie Gallardo APRN-THERAPEUTIC RIDING INSTRUCTOR [address] [facility] 160 [place] [address] Nurse Practitioner Psychiatry 06/13/24 Madyson Figueroa, BETY [address] [facility] 230 [place] [address] Registered Nurse Family Medicine 08/14/24 Braeden Dunham LPC Therapist Behavioral Health 11/25/24 documented as of this encounter
--- OUTSIDE RECORDS SUMMARY | 2024-12-12 10:48 | XMS_ITS | Clinical Summary ---
Author Organization [facility] Address [address] [place] [address], [address] [place] [address] Care Team Providers Care Coffee Urn Attendant Name Role Phone Unavailable Primary Care [...]
--- OUTSIDE RECORDS SUMMARY | 2024-12-12 10:48 | XMS_ITS | Encounter Summary ---
Author Organization [facility] Address [address] [facility] [place] [address] Care Team Providers Care Tile Designer Name Role Phone Jer Rizo MD Primary Care Provider [phone] Jer Rizo MD Unavailable [phone] Aggie Gallardo YARDAGE CONTROL OPERATOR FORMING-VASCULAR TECHNICIAN Unavailable Jer Rizo MD Unavailable [phone] Madyson Figueroa RN Unavailable [phone] Braeden Dunham LPC Unavailable Unavailable Encounter Details Date Type Department Care Team (Late Contact Info) Description 11/03/2022 Abstract [facility] FM [address] [facility] 110 [place] [address] Jer Rizo MD 112 [place] [facility] 110 [place] [address] Social History Tobacco Use Types [...] Visit [facility] FM [address] [facility] 110 [place] [address] Erin Tariq PA [address] [facility] 110 [place] [address] 12/23/2024 1:00 PM EDT Office Visit [facility] BH [address] [facility] 160 [place] [address] Aggie Gallardo, YARDAGE CONTROL OPERATOR FORMING-VASCULAR TECHNICIAN [address] [facility] 160 [place] [address] 03/06/2025 10:40 AM EDT Office Visit [facility] POD[facility]RY [address] [facility] 120 [place] [address] Tip Morillo DPYared 3006 [facility] 5 [place] [address] documented as of this encounter Visit Diagnoses Not on filedocumented in this encounter Care Teams Tile Designer Relationship Specialty Start Date End Date Jer Rizo MD [address] [facility] 110 [place] [address] PCP - General Internal Medicine 01/03/23 Jer Rizo MD [address] [facility] 110 [place] [address] PCP - Devoted 05/29/23 05/28/24 Jer Rizo MD [address] [facility] 110 [place] [address] PCP - Sari HERNANDEZ 05/29/24 Aggie Gallardo, YARDAGE CONTROL OPERATOR FORMING-VASCULAR TECHNICIAN [address] [facility] 160 [place] [address] Nurse Practitioner Psychiatry 06/13/24 Madyson Figueroa, BETY [address] [facility] 230 [place], [place] [address] Registered Nurse Family Medicine 08/14/24 Braeden Dunham LPC Therapist Behavioral Health 11/25/24 documented as of this encounter
--- OUTSIDE RECORDS SUMMARY | 2024-12-12 10:48 | XMS_ITS | Encounter Summary ---
Author Organization [facility] Address [address] [facility] [place] [address] Care Team Providers Care Newspaper Copy Editor Name Role Phone Jer Rizo MD Primary Care Provider [phone] Aggie Gallardo MATHEMATICS INSTRUCTOR-FASHION CONSULTANT Unavailable Jer Rizo MD Unavailable [phone] Madyson Figueroa RN Unavailable [phone] Braeden Dunham LPC Unavailable Unavailable Reason for Visit * Reason Comments Med Refill Encounter Details Date Type Department Care Team (Late st Contact Info) Description 07/31/2024 Refill [facility] [address] [facility] 110 [place] [address] Erin Tariq, PA [address] [facility] 110 [place], [place] [address] Type 2 diabetes mellitus with autonomic neuropathy, unspecified whether fci insulin use (HCC); Chronic obstructive pulmonary disease, [...] and Family Not on file 12/04/2023 Attends Quaker Services Not on file 12/03 Do you belong to any clubs o r organizations such as anabaptist groups, unions, fraternal or athletic groups, or [...] Recorded Patient Health Questionnaire-2 Score 2 07/30/2024 [facility] of Occupat ional Health - Occupational Stress [...] any time in the past 12 m [facility], were you homeless or living in a jail (including now)? No 12/04/2023 Education Answer Date [...] Visit [facility] FM [address] [facility] 110 [place] [address] Erin Tariq PA [address] Jose Armando 110 [place] [address] 12/23/2024 1:00 PM EDT Office Visit [facility] BH [address] JOSE ARMANDO 160 [place] [address] Aggie Gallardo, MATHEMATICS INSTRUCTOR-FASHION CONSULTANT [address] Jose Armando 160 [place] [address] 03/06/2025 10:40 AM EDT Office Visit [facility] POD[facility]RY [address] [facility] 120 [place] [address] Tip Morillo, DPYared 3006 [facility] 5 [place] [address] documented as of this encounter Goals Goal Patient Goal Type Associated Problems Recent Progress Patient-Stated? 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) Chronic obstructive pulmonary disease, unspecified COPD type (HCC) documented in this encounter Additional Health Concerns Active Problems Noted Date Diagnosed Date Patient on antidepressant monitoring plan 2023 Assessment Noted Time PHQ-9 Depression Total Score: 15 025 12:54 PM EST documented as of this encounter Care Teams Newspaper Copy Editor Relationship Specialty Start Date End Date Jer Rizo MD [address] [facility] 110 [place] [address] PCP - General Internal Medicine 01/03/23 Jer Rizo MD [address] [facility] 110 [place] [address] PCP - Sari HERNANDEZ 05/29/24 Aggie Gallardo APRN-FASHION CONSULTANT [address] [facility] 160 [place] [address] Nurse Practitioner Psychiatry 06/13/24 Madyson Figueroa, BETY [address] Jose Armando 230 [place] [address] Registered Nurse Family Medicine 08/14/24 Braeden Dunham LPC Therapist Behavioral Health 11/25/24 documented as of this encounter
--- OUTSIDE RECORDS SUMMARY | 2024-12-12 10:48 | XMS_ITS | Encounter Summary ---
Author Organization [facility] Address [address] [facility] [place] [address] Care Team Providers Care Organ Builder Name Role Phone Jer Rizo MD Primary Care Provider Aggie Gallardo SPRING UP SUPERVISOR-REGISTERED NURSE CARDIAC TELEMETRY Unavailable Jer Rizo MD Unavailable [phone] Madyson Figueroa RN Unavailable [phone] Braeden Dunham LPC Unavailable Unavailable Reason for Visit * Reason Comments Med Change Request Encounter Details Date Type Department Care Team (Late st Contact Info) Description 10/04/2024 Refill [facility] BH [address] [facility] 160 [place] [address] Aggie Gallardo, SPRING UP SUPERVISOR-REGISTERED NURSE CARDIAC TELEMETRY [address] [facility] 160 [place], [place] [id number] JENN (generalized anxiety disorder) Social History Tobacco [...] and Family Not on file 12/04/2023 Attends Hoahaoism Services Not on file 12/03 Do you [...] Patient Health Questionnaire-2 Score 2 07/30/2024 [facility] of Occupat ional Health - [...] any time in the past 12 m [facility], were you homeless or living in a group home (including now)? No 12/04/2023 Education Answer [...] Visit [facility] FM [address] [facility] 110 [place] [address] Erin Tariq PA [address] Jose Armando 110 [place] [address] 12/23/2024 1:00 PM EDT Office Visit [facility] BH [address] JOSE ARMANDO 160 [place] [address] Aggie Gallardo, SPRING UP SUPERVISOR-REGISTERED NURSE CARDIAC TELEMETRY [address] Jose Armando 160 [place] [address] 03/06/2025 10:40 AM EDT Office Visit [facility] PODIATRY [address] [facility] 120 [place] [address] Tip Morillo, DPYared 3006 [facility] 5 [place] [address] documented as of this encounter Goals Goal [...] documented as of this encounter Care Teams Organ Builder Relationship Specialty Start Date End Date Jer Rizo MD [address] [facility] 110 [place] [address] PCP - General Internal Medicine 01/03/23 Jer Rizo MD [address] [facility] 110 [place] [address] PCP - Sari HERNANDEZ 05/29/24 Aggie Gallardo, SPRING UP SUPERVISOR-REGISTERED NURSE CARDIAC TELEMETRY [address] [facility] 160 [place] [address] Nurse Practitioner Psychiatry 06/13/24 Madyson Figueroa, BETY [address] [facility] 230 [place] [address] Registered Nurse Family Medicine 08/14/24 Braeden Dunham LPC Therapist Behavioral Health 11/25/24 documented as of this encounter
--- OUTSIDE RECORDS SUMMARY | 2024-12-12 10:48 | XMS_ITS | Encounter Summary ---
Author Organization [facility] Address [address] [facility] [address] Care Team Providers Care Detention Worker Name Role Phone Jer Rizo MD Primary Care Provider [phone] Aggie Gallardo DAIRY BAR MANAGER-INTERNAL COMBUSTION ENGINE SUBASSEMBLER Unavailable Jer Rizo MD Unavailable [phone] Madyson Figueroa RN Unavailable [phone] Braeden Dunham LPC Unavailable Unavailable Encounter Details Date Type Department Care Team (Late st Contact Info) Description 10/16/2024 Abstract [facility] FM 112 [facility] 110 [place] [address] Jer Rizo MD 112 [facility] 110 [place] [address] Social History Tobacco Use Types [...] Recorded Patient Health Questionnaire-2 Score 2 07/30/2024 [facility] of Occupat ional Health - Occupational [...] were you homeless or living in a correction (including now)? No 12/04/2023 Education Answer Date [...] [address] JOSE ARMANDO [address] [place] [address] Erin Tariq PA [address] Jose Armando 110 [place] [address] 12/23/2024 1:00 PM EDT Office Visit [facility] [address] JOSE ARMANDO 160 [place] [address] Aggie Gallardo, DAIRY BAR MANAGER-INTERNAL COMBUSTION ENGINE SUBASSEMBLER [address] Jose Armando 160 [place] [address] 03/06/2025 10:40 AM EDT Office Visit [facility] PODIATRY [address] JOSE ARMANDO 120 [place] [address] Tip Morillo DPM 3006 [facility] 5 [place] [address] documented as of this encounter Goals Goal [...] documented as of this encounter Care Teams Detention Worker Relationship Specialty Start Date End Date Jer Rizo MD [address] [facility] 110 [place] [address] PCP - General Internal Medicine 01/03/23 Jer Rizo MD [address] [facility] 110 [place] [address] PCP - Sari HERNANDEZ 05/29/24 Aggie Gallardo APRN-INTERNAL COMBUSTION ENGINE SUBASSEMBLER [address] [facility] 160 [place] [address] Nurse Practitioner Psychiatry 06/13/24 Madyson Figueroa, BETY [address] [facility] 230 [place] [address] Registered Nurse Family Medicine 08/14/24 Braeden Dunham LPC Therapist Behavioral Health 11/25/24 documented as of this encounter
--- OUTSIDE RECORDS SUMMARY | 2024-12-12 10:48 | XMS_ITS | Encounter Summary ---
Author Organization [facility] Address [address] [facility] [place] [address] Care Team Providers Care Manufacturing Intern Name Role Phone Jer Rizo MD Primary Care Provider [phone] Jer Rizo MD Unavailable [phone] Aggie Gallardo CERTIFIED PHYSICIAN'S ASSISTANT-SPECTRAL SCIENTIST Unavailable Jer Rizo MD Unavailable [phone] Madyson Figueroa RN Unavailable [phone] Braeden Dunham LPC Unavailable Unavailable Encounter Details Date Type Department Care Team (Late Contact Info) Description 11/03/2022 Abstract [facility] FM [address] [facility] 110 [place] [address] Jer Rizo MD 112 [place] [facility] 110 [place] [address] Social History Tobacco Use [...] Visit [facility] FM [address] [facility] 110 [place] [address] rEin Tariq PA [address] [facility] 110 [place] [address] 12/23/2024 1:00 PM EDT Office Visit [facility] BH [address] [facility] 160 [place] [address] Aggei Gallardo, CERTIFIED PHYSICIAN'S ASSISTANT-SPECTRAL SCIENTIST [address] [facility] 160 [place] [address] 03/06/2025 10:40 AM EDT Office Visit [facility] PODIATRY [address] [facility] 120 [place] [address] Tip Morillo DPYared 3006 [facility] 5 [place] [address] documented as of this encounter Visit Diagnoses Not on filedocumented in this encounter Care Teams Manufacturing Intern Relationship Specialty Start Date End Date Jer Rizo MD [address] [facility] 110 [place] [address] PCP - General Internal Medicine 01/03/23 Jer Rizo MD [address] [facility] 110 [place] [address] PCP - Devoted 05/29/23 05/28/24 Jer Rizo MD [address] [facility] 110 [place] [address] PCP - Sari HERNANDEZ 05/29/24 Aggie Gallardo, CERTIFIED PHYSICIAN'S ASSISTANT-SPECTRAL SCIENTIST [address] [facility] 160 [place] [address] Nurse Practitioner Psychiatry 06/13/24 Madyson Figueroa, BETY [address] [facility] 230 [place], [place] [address] Registered Nurse Family Medicine 08/14/24 Braeden Dunham LPC Therapist Behavioral Health 11/25/24 documented as of this encounter
--- OUTSIDE RECORDS SUMMARY | 2024-12-12 10:49 | XMS_ITS | Encounter Summary ---
Author Organization [facility] Address [address] [facility] [place] [address] Care Team Providers Care Consumer Loan Specialist Name Role Phone Jer Rizo MD Primary Care Provider [phone] Aggie Gallardo SENIOR GAME DEVELOPER-TUBE ROLLER Unavailable Jer Rizo MD Unavailable [phone] Madyson Figueroa RN Unavailable [phone] Braeden Dunham LPC Unavailable Unavailable Encounter Details Date Type Department Care Team (Late st Contact Info) Description 11/08/2024 Abstract [facility] 112 [facility] 110 [place] [address] Jer Rizo MD 112 [facility] 110 [place] [address] Social History Tobacco Use Types [...] and Family Not on file 12/04/2023 Attends Sikh Services Not on file 12/03 Do you belong to any clubs o r organizations such as pentecostalism groups, unions, fraternal or athletic groups, or [...] Recorded Patient Health Questionnaire-2 Score 0 10/23/2024 [facility] of Occupat ional Health - Occupational Stress [...] [address] JOSE ARMANDO 110 [place] [address] Erin Tariq PA [address] Jose Armando 110 [place] [address] 12/23/2024 1:00 PM EDT Office Visit [facility] [address] JOSE ARMANDO 160 [place] [address] Aggie Gallardo, SENIOR GAME DEVELOPER-TUBE ROLLER [address] Jose Armando 160 [place] [address] 03/06/2025 10:40 AM EDT Office Visit [facility] [address] JOSE ARMANDO [address] [place] [address] Tip Morillo DPM 3006 [facility] 5 [place] [address] documented as of this encounter Goals Goal [...] documented as of this encounter Care Teams Consumer Loan Specialist Relationship Specialty Start Date End Date Jer Rizo MD [address] [facility] 110 [place] [address] PCP - General Internal Medicine 01/03/23 Jer Rizo MD [address] [facility] 110 [place] [address] PCP - Sari HERNANDEZ 05/29/24 Aggie Gallardo APRN-TUBE ROLLER [address] [facility] 160 [place] [address] Nurse Practitioner Psychiatry 06/13/24 Madyson Figueroa, BETY [address] [facility] 230 [place] [address] Registered Nurse Family Medicine 08/14/24 Braeden Dunham LPC Therapist Behavioral Health 11/25/24 documented as of this encounter
--- OUTSIDE RECORDS SUMMARY | 2024-12-12 10:49 | XMS_ITS | Patient Health Record ---
Author Organization [facility] Address [address] [place] [address] [place] [address] Care Team Providers Care Side Laster Tack Name Role Phone Carolynn Perez Primary Care Provider UnavailBhupinder Lugo Unavailable [phone] Reason For Referral No Information Plan Of Treatment No Information Insurance Providers Payer Name Payer Address Payer Phone Subscriber Number Group Number Insured Name Patient Relationship to Insured Coverage Start Date Coverage End Date [facility] [address] [place] [address] [id number] Sanna Edwards Self - patient is the insured
--- OUTSIDE RECORDS SUMMARY | 2024-12-12 10:49 | XMS_ITS | Encounter Summary ---
Author Organization [facility] Address [address] [facility] [place] [address] Care Team Providers Care Ice Crusher Name Role Phone Jer Rizo MD Primary Care Provider [phone] Jer Rizo MD Unavailable [phone] Aggie Gallardo RETAIL PHARMACIST-RECIPROCATING DRILL OPERATOR Unavailable Jer Rizo MD Unavailable [phone] Madyson Figueroa RN Unavailable [phone] Braeden Dunham LPC Unavailable Unavailable Encounter Details Date Type Department Care Team (Late st Contact Info) Description 06/27/2023 Abstract [facility] 112 [facility] 110 [place] [id number] Jer Rizo MD 112 [facility] 110 [place] [address] Social History Tobacco Use [...] [address] JOSE ARMANDO [address] [place] [address] Erin Tariq PA [address] Jose Armando 110 [place] [address] 12/23/2024 1:00 PM EDT Office Visit [facility] [address] JOSE ARMANDO [address] [place] [address] Aggie Gallardo, RETAIL PHARMACIST-RECIPROCATING DRILL OPERATOR [address] Jose Armando 160 [place] [address] 03/06/2025 10:40 AM EDT Office Visit [facility] [address] JOSE ARMANDO 120 [place] [address] Tip Morillo, DPYared 3006 [facility] 5 [place] [address] documented as of this encounter Visit Diagnoses Not on filedocumented in this encounter Additional Health Concerns Assessment Noted Time PHQ-9 Depression Total Score: 20 023 12:00 PM EDT documented as of this encounter Care Teams Ice Crusher Relationship Specialty Start Date End Date Jer Rizo MD [address] Jose Armando 110 [place] [address] PCP - General Internal Medicine 01/03/23 Jer Rizo MD [address] Jose Armando 110 [place] [address] PCP - Devoted 05/29/23 05/28/24 Jer Rizo MD [address] Jose Armando 110 [place] [address] PCP - Sari HERNANDEZ 05/29/24 Aggie Gallardo, RETAIL PHARMACIST-RECIPROCATING DRILL OPERATOR 112 [facility] 160 [place] [address] Nurse Practitioner Psychiatry 06/13/24 Madyson Figueroa, RN [address] [place] 230 [place] [address] Registered Nurse Family Medicine 08/14/24 Braeden Dunham LPC Therapist Behavioral Health 11/25/24 documented as of this encounter
--- OUTSIDE RECORDS SUMMARY | 2024-12-12 10:49 | XMS_ITS | Encounter Summary ---
Author Organization [facility] Address [address] [facility] [place] [address] Care Team Providers Care Nurse'S Aides Teacher Name Role Phone Jer Rizo MD Primary Care Provider [phone] Aggie Gallardo ENVIRONMENTAL EPIDEMIOLOGIST-SENIOR NET APPLICATION DEVELOPER Unavailable Jer Rizo MD Unavailable [phone] Madyson Figueroa RN Unavailable [phone] Braeden Dunham LPC Unavailable Unavailable Encounter Details Date Type Department Care Team (Late st Contact Info) Description 10/28/2024 Abstract [facility] 112 [facility] 110 [place] [address] Jer Rizo MD 112 [facility] 110 [place] [address] Social History Tobacco Use Types [...] and Family Not on file 12/04/2023 Attends Episcopal Services Not on file 12/03 Do you [...] Recorded Patient Health Questionnaire-2 Score 0 10/23/2024 [facility] of Occupat ional Health - [...] [address] JOSE ARMANDO [address] [place] [address] Erin Tariq PA [address] Jose Armando 110 [place] [address] 12/23/2024 1:00 PM EDT Office Visit [facility] [address] JOSE ARMANDO [address] [place] [address] Aggie Gallardo, ENVIRONMENTAL EPIDEMIOLOGIST-SENIOR NET APPLICATION DEVELOPER [address] Jose Armando 160 [place] [address] 03/06/2025 10:40 AM EDT Office Visit [facility] [address] JOSE ARMANDO [address] [place] [address] Tip Morillo DPM 3006 [facility] 5 [place] [address] documented as of this encounter Goals Goal [...] documented as of this encounter Care Teams Nurse'S Aides Teacher Relationship Specialty Start Date End Date Jer Rizo MD [address] [facility] 110 [place] [address] PCP - General Internal Medicine 01/03/23 Jer Rizo MD [address] [facility] 110 [place] [address] PCP - Sari HERNANDEZ 05/29/24 Aggie Gallardo APRN-SENIOR NET APPLICATION DEVELOPER [address] [facility] 160 [place] [address] Nurse Practitioner Psychiatry 06/13/24 Madyson Figueroa, BETY [address] [facility] 230 [place] [address] Registered Nurse Family Medicine 08/14/24 Braeden Dunham LPC Therapist Behavioral Health 11/25/24 documented as of this encounter
--- OUTSIDE RECORDS SUMMARY | 2024-12-12 10:49 | XMS_ITS | Encounter Summary ---
Author Organization [facility] Address [address] [facility] [place] [address] Care Team Providers Care Parole Agent Name Role Phone Jer Rizo MD Primary Care Provider [phone] Jer Rizo MD Unavailable [phone] Aggie Gallardo LIP OF SHANK CUTTER-REGULATORY AFFAIRS SPEC Unavailable Jer Rizo MD Unavailable [phone] Madyson Figueroa RN Unavailable [phone] Braeden Duhnam LPC Unavailable Unavailable Encounter Details Date Type Department Care Team (Late st Contact Info) Description 07/11/2023 Abstract [facility] 112 [facility] 110 [place] [id number] Jer Rizo MD 112 [facility] 110 [place] [address] Social History Tobacco Use Types [...] [address] JOSE ARMANDO 110 [place] [address] Erin Tariq PA [address] Jose Armando 110 [place] [address] 12/23/2024 1:00 PM EDT Office Visit [facility] [address] JOSE ARMANDO 160 [place] [address] Aggie Gallardo, LIP OF SHANK CUTTER-REGULATORY AFFAIRS SPEC [address] Jose Armando 160 [place] [address] 03/06/2025 10:40 AM EDT Office Visit [facility] [address] JOSE ARMANDO [address] [place] [address] Tip Morillo, DPYared [facility]006 [facility] 5 [place] [address] documented as of this encounter Visit Diagnoses Not on filedocumented in this encounter Additional Health Concerns Assessment Noted Time PHQ-9 Depression Total Score: 20 023 12:00 PM EDT documented as of this encounter Care Teams Parole Agent Relationship Specialty Start Date End Date Jer Rizo MD [address] Jose Armando 110 [place] [address] PCP - General Internal Medicine 01/03/23 Jer Rizo MD [address] Jose Armando 110 [place] [address] PCP - Devoted 05/29/23 05/28/24 Jer Rizo MD [address] Jose Armando 110 [place] [address] PCP - Sari HERNANDEZ 05/29/24 Aggie Gallardo, LIP OF SHANK CUTTER-REGULATORY AFFAIRS SPEC 112 [facility] 160 [place] [address] Nurse Practitioner Psychiatry 06/13/24 Madyson Figueroa, RN [address] [facility] 230 [place] [address] Registered Nurse Family Medicine 08/14/24 Braeden Dunham LPC Therapist Behavioral Health 11/25/24 documented as of this encounter
--- OUTSIDE RECORDS SUMMARY | 2024-12-12 10:49 | XMS_ITS | Encounter Summary ---
Author Organization [facility] Address [address] [facility] [place] [address] Care Team Providers Care Mill Manager Name Role Phone Jer Rizo MD Primary Care Provider [phone] Aggie Gallardo BOTTOM TURNING LATHE TENDER-SLAB LIFTING ENGINEER Unavailable Jer Rizo MD Unavailable [phone] Madyson Figueroa RN Unavailable [phone] Braeden Dunham LPC Unavailable Unavailable Encounter Details Date Type Department Care Team (Late st Contact Info) Description 10/16/2024 Abstract [facility] [address] [facility] 110 [place] [address] Jer Rizo MD 112 [facility] 110 [place] [address] Social History Tobacco Use Types [...] and Family Not on file 12/04/2023 Attends Denominational Services Not on file 12/03 Do you belong to any clubs o r organizations such as samaritan groups, unions, fraternal or athletic groups, or [...] Recorded Patient Health Questionnaire-2 Score 2 07/30/2024 [facility] of Occupat ional Health [...] were you homeless or living in a residential (including now)? No 12/04/2023 Education Answer Date [...] [address] JOSE ARMANDO [address] [place] [address] Erin Tariq PA [address] Jose Armando 110 [place] [address] 12/23/2024 1:00 PM EDT Office Visit [facility] [address] JOSE ARMANDO 160 [place] [address] Aggie Gallardo, BOTTOM TURNING LATHE TENDER-SLAB LIFTING ENGINEER [address] Jose Armando 160 [place] [address] 03/06/2025 10:40 AM EDT Office Visit [facility] [address] JOSE ARMANDO [address] [place] [address] Tip Morillo DPM 3006 [facility] 5 [place] [address] documented as of this encounter Goals Goal [...] documented as of this encounter Care Teams Mill Manager Relationship Specialty Start Date End Date Jer Rizo MD [address] [facility] 110 [place] [address] PCP - General Internal Medicine 01/03/23 Jer Rizo MD [address] [facility] 110 [place] [address] PCP - Sari HERNANDEZ 05/29/24 Aggie Gallardo APRN-SLAB LIFTING ENGINEER [address] [facility] 160 [place] [address] Nurse Practitioner Psychiatry 06/13/24 Madyson Figueroa, BETY [address] [facility] 230 [place] [address] Registered Nurse Family Medicine 08/14/24 Braeden Dunham LPC Therapist Behavioral Health 11/25/24 documented as of this encounter
--- OUTSIDE RECORDS SUMMARY | 2024-12-12 10:49 | XMS_ITS | Clinical Summary ---
Author Organization [facility] Address [address] [place] [address] Care Team Providers Care Water Quality Specialist Name Role Phone Unavailable Primary Care [...] patient's age to complete this topic Insurance [facility]
--- OUTSIDE RECORDS SUMMARY | 2024-12-12 10:49 | XMS_ITS | Encounter Summary ---
Author Organization [facility] Address [address] [facility] [place] [address] Care Team Providers Care Radiology Supervisor Name Role Phone Jer Rizo MD Primary Care Provider [phone] Jer Rizo MD Unavailable [phone] Aggie Gallardo TRAFFIC REPRESENTATIVE-MICROBIOLOGY QUALITY CONTROL TECHNICIAN Unavailable Jer Rizo MD Unavailable [phone] Madyson Figueroa RN Unavailable [phone] Braeden Dunham LPC Unavailable Unavailable Encounter Details Date Type Department Care Team (Late st Contact Info) Description 02/21/2023 Abstract [facility] 112 [address] [facility] 110 [place] [address] Jer Rizo MD 112 [facility] 110 [place] [address] Social History Tobacco Use Types [...] [address] JOSE ARMANDO 110 [place] [address] Erin Tariq PA [address] Jose Armando 110 [place] [address] 12/23/2024 1:00 PM EDT Office Visit [facility] [address] JOSE ARMANDO 160 [place] [address] Aggie Gallardo, TRAFFIC REPRESENTATIVE-MICROBIOLOGY QUALITY CONTROL TECHNICIAN [address] Jose Armando 160 [place] [address] 03/06/2025 10:40 AM EDT Office Visit [facility] [address] JOSE ARMANDO [address] [place] [address] Tip Morillo, DPM 3006 [facility] 5 [place] [address] documented as of this encounter Visit Diagnoses Not on filedocumented in this encounter Care Teams Radiology Supervisor Relationship Specialty Start Date End Date Jer Rizo MD [address] [facility] 110 [place] [address] PCP - General Internal Medicine 01/03/23 Jer Rizo MD [address] [facility] 110 [place] [address] PCP - Devoted 05/29/23 05/28/24 Jer Rizo MD [address] [facility] 110 [place] [address] PCP - Sari HERNANDEZ 05/29/24 Aggie Gallardo, TRAFFIC REPRESENTATIVE-MICROBIOLOGY QUALITY CONTROL TECHNICIAN [address] Jose Armando 160 [place] [address] Nurse Practitioner Psychiatry 06/13/24 Madyson Figueroa, RN [address] Jose Armando 230 [place] [address] Registered Nurse Family Medicine 08/14/24 Braeden Dunham LPC Therapist Behavioral Health 11/25/24 documented as of this encounter
--- OUTSIDE RECORDS SUMMARY | 2024-12-12 10:49 | XMS_ITS | Encounter Summary ---
Author Organization [facility] Address [address] [facility] [place] [address] Care Team Providers Care Sap Gatherer Name Role Phone Jer Rizo MD Primary Care Provider Aggie Gallardo PROGRAMMING INTERN-HARNESS TIER Unavailable Jer Rizo MD Unavailable [phone] Madyson Figueroa RN Unavailable [phone] Braeden Dunham LPC Unavailable Unavailable Encounter Details Date Type Department Care Team (Late st Contact Info) Description 08/14/2024 Abstract [facility] 112 [facility] 110 [place] [address] Jer Rizo MD 112 [facility] 110 [place] [address] Social History Tobacco Use Types [...] Patient Health Questionnaire-2 Score 2 07/30/2024 [facility] of Occupat ional Health [...] any time in the past 12 m [facility], were you homeless or [...] [address] JOSE ARMANDO [address] [place] [address] Erin Tariq PA [address] Jose Armando 110 [place] [address] 12/23/2024 1:00 PM EDT Office Visit [facility] [address] JOSE ARMANDO 160 [place] [address] Aggie Gallardo, PROGRAMMING INTERN-HARNESS TIER [address] Jose Armando 160 [place] [address] 03/06/2025 10:40 AM EDT Office Visit [facility] [address] JOSE ARMANDO [address] [place] [address] Tip Morillo DPM 3006 [facility] 5 [place] [address] documented as of this encounter Goals Goal [...] documented as of this encounter Care Teams Sap Gatherer Relationship Specialty Start Date End Date Jer Rizo MD [address] [facility] 110 [place] [address] PCP - General Internal Medicine 01/03/23 Jer Rizo MD [address] [facility] 110 [place] [address] PCP - Sari HERNANDEZ 05/29/24 Aggie Gallardo APRN-HARNESS TIER [address] [facility] 160 [place] [address] Nurse Practitioner Psychiatry 06/13/24 Madyson Figueroa, BETY [address] [facility] 230 [place] [address] Registered Nurse Family Medicine 08/14/24 Braeden Dunham LPC Therapist Behavioral Health 11/25/24 documented as of this encounter
--- OUTSIDE RECORDS SUMMARY | 2024-12-12 10:49 | XMS_ITS | Encounter Summary ---
Author Organization [facility] Address [address] [facility] [place] [address] Care Team Providers Care Set Up Mechanic Automatic Line Name Role Phone Jer Rizo MD Primary Care Provider [phone] Jer Rizo MD Unavailable [phone] Aggie Gallardo VENEER STOCK GRADER-INSTRUMENT PANEL ASSEMBLER Unavailable Jer Rizo MD Unavailable [phone] Madyson Figueroa RN Unavailable [phone] Braeden Dunham LPC Unavailable Unavailable Encounter Details Date Type Department Care Team (Late st Contact Info) Description 07/11/2023 Orders Only [facility] [address] JOSE ARMANDO 110 [place] [address] A, Unknown Practice [address] [place], [place] [address] Social History Tobacco Use Types Packs/Day Years [...] [address] JOSE ARMANDO [address] [place] [address] Erin Tariq, PA [address] Jose Armando 110 [place] [address] 12/23/2024 1:00 PM EDT Office Visit [facility] [address] JOSE ARMANDO [address] [place] [address] Aggie Gallardo, VENEER STOCK GRADER-INSTRUMENT PANEL ASSEMBLER [address] Jose Armando 160 [place] [address] 03/06/2025 10:40 AM EDT Office Visit [facility] [address] JOSE ARMANDO [address] [place] [address] Tip Morillo DPM 3006 [facility] 5 [place] [address] documented as of this encounter Procedures Procedure [...] documented as of this encounter Care Teams Set Up Mechanic Automatic Line Relationship Specialty Start Date End Date Jer Rizo MD [address] [facility] 110 [place] [address] PCP - General Internal Medicine 01/03/23 Jer Rizo MD [address] [facility] 110 [place] [address] PCP - Devoted 05/29/23 05/28/24 Jer Rizo MD [address] [facility] 110 [place] [address] PCP - Sari HERNANDEZ 05/29/24 Aggie Gallardo APRN-INSTRUMENT PANEL ASSEMBLER [address] [facility] 160 [place] [address] Nurse Practitioner Psychiatry 06/13/24 Madyson Figueroa, BETY [address] Jose Armando 230 [place] [address] Registered Nurse Family Medicine 08/14/24 Braeden Dunham LPC Therapist Behavioral Health 11/25/24 documented as of this encounter
--- OUTSIDE RECORDS SUMMARY | 2024-12-12 10:49 | XMS_ITS | Encounter Summary ---
Author Organization [facility] Address [address] [facility] [place] [address] Care Team Providers Care Financial Risk Manager Name Role Phone Jer Rizo MD Primary Care Provider [phone] Jer Rizo MD Unavailable [phone] Aggie Gallardo SEASONAL CLERK-PICKER MACHINE OPERATOR Unavailable Jer Rizo MD Unavailable [phone] Madyson Figueroa RN Unavailable [phone] Braeden Dunham LPC Unavailable Unavailable Encounter Details Date Type Department Care Team (Late st Contact Info) Description 06/22/2023 Abstract [facility] 112 [facility] 110 [place] [address] Jer Rizo MD 112 [facility] 110 [place] [address] Social History Tobacco Use Types [...] [address] JOSE ARMANDO [address] [place] [address] Erin Tariq PA [address] Jose Armando 110 [place] [address] 12/23/2024 1:00 PM EDT Office Visit [facility] [address] JOSE ARMANDO [address] [place] [address] Aggie Gallardo, SEASONAL CLERK-PICKER MACHINE OPERATOR [address] Jose Armando 160 [place] [address] 03/06/2025 10:40 AM EDT Office Visit [facility] [address] JOSE ARMANDO [address] [place] [address] Tip Morillo, DPYared 3006 [facility] 5 [place] [address] documented as of this encounter Visit Diagnoses Not on filedocumented in this encounter Additional Health Concerns Assessment Noted Time PHQ-9 Depression Total Score: 20 023 12:00 PM EDT documented as of this encounter Care Teams Financial Risk Manager Relationship Specialty Start Date End Date Jer Rizo MD [address] Jose Armando [address] [place] [address] PCP - General Internal Medicine 01/03/23 Jer Rizo MD [address] Jose Armando [address] [place] [address] PCP - Devoted 05/29/23 05/28/24 Jer Rizo MD [address] Jose Armando [address] [place] [address] PCP - Sari HERNANDEZ 05/29/24 Aggie Gallardo, SEASONAL CLERK-PICKER MACHINE OPERATOR 112 [facility] 160 [place] [address] Nurse Practitioner Psychiatry 06/13/24 Madyson Figueroa, RN [address] [facility] 230 [place] [address] Registered Nurse Family Medicine 08/14/24 Braeden Dunham LPC Therapist Behavioral Health 11/25/24 documented as of this encounter
--- OUTSIDE RECORDS SUMMARY | 2024-12-12 10:49 | XMS_ITS | Encounter Summary ---
Author Organization [facility] Address [address] [facility] [place] [address] Care Team Providers Care Master Deputy Sheriff Court Security Name Role Phone Jer Rizo MD Primary Care Provider [phone] Jer Rizo MD Unavailable [phone] Aggie Gallardo HAM FACER-SNUFF DRIER Unavailable Jer Rizo MD Unavailable [phone] Madyson Figueroa RN Unavailable [phone] Braeden Dunham LPC Unavailable Unavailable Encounter Details Date Type Department Care Team (Late st Contact Info) Description 07/05/2023 Orders Only [facility] [address] JOSE ARMANDO 110 [place] [address] Unallocated, Noms Provider, [address] [place], [place] [id number] Social History Tobacco Use Types Packs/Day Years [...] [address] JOSE ARMANDO [address] [place] [address] Erin Tariq PA [address] Jose Armando 110 [place] [address] 12/23/2024 1:00 PM EDT Office Visit [facility] [address] JOSE ARMANDO 160 [place] [address] Daily-Aggie Seymour, HAM FACER-SNUFF DRIER [address] Jose Armando 160 [place] [address] 03/06/2025 10:40 AM EDT Office Visit [facility] [address] JOSE ARMANDO 120 [place] [address] Tip Morillo DPM 3006 [facility] 5 [place] [address] documented as of this encounter Procedures Procedure [...] documented as of this encounter Care Teams Master Deputy Sheriff Court Security Relationship Specialty Start Date End Date Jer Rizo MD [address] Jose Armando 110 [place] [address] PCP - General Internal Medicine 01/03/23 Jer Rizo MD [address] Jose Armando 110 [place] [address] PCP - Devoted 05/29/23 05/28/24 Jer Rizo MD [address] [facility] 110 [place] [address] PCP - Sari HERNANDEZ 05/29/24 Aggie Gallardo, HAM FACER-SNUFF DRIER [address] [facility] 160 [place] [address] Nurse Practitioner Psychiatry 06/13/24 Madyson Figueroa, BETY [address] [facility] [place] [address] Registered Nurse Family Medicine 08/14/24 Braeden Dunham LPC Therapist Behavioral Health 11/25/24 documented as of this encounter
--- OUTSIDE RECORDS SUMMARY | 2024-12-12 10:49 | XMS_ITS | Encounter Summary ---
Author Organization [facility] Address [address] [facility] [place] [address] Care Team Providers Care Painter Helper Sign Name Role Phone Jer Rizo MD Primary Care Provider [phone] Aggie Gallardo PIPELAYING FITTER-AGILE COACH Unavailable Jer Rizo MD Unavailable [phone] Madyson Figueroa RN Unavailable [phone] Braeden Dunham LPC Unavailable Unavailable Encounter Details Date Type Department Care Team (Late st Contact Info) Description 10/31/2024 Abstract [facility] 112 [facility] 110 [place] [address] Jer Rizo MD 112 [facility] 110 [place] [address] Social History Tobacco Use Types [...] any clubs o r organizations such as jewish groups, unions, fraternal or athletic groups, or [...] [address] JOSE ARMANDO [address] [place] [address] Erin Tariq PA [address] Jose Armando 110 [place] [address] 12/23/2024 1:00 PM EDT Office Visit [facility] [address] JOSE ARMANDO [address] [place] [address] Aggie Gallardo, PIPELAYING FITTER-AGILE COACH [address] Jose Armando 160 [place] [address] 03/06/2025 10:40 AM EDT Office Visit [facility] [address] JOSE ARMANDO [address] [place] [address] Tip Morillo DPM 3006 [facility] 5 [place] [address] documented as of this encounter Goals Goal [...] documented as of this encounter Care Teams Painter Helper Sign Relationship Specialty Start Date End Date Jer Rizo MD [address] [facility] 110 [place] [address] PCP - General Internal Medicine 01/03/23 Jer Rizo MD [address] [facility] 110 [place] [address] PCP - Sari HERNANDEZ 05/29/24 Aggie Gallardo APRN-AGILE COACH [address] [facility] 160 [place] [address] Nurse Practitioner Psychiatry 06/13/24 Madyson Figueroa, BETY [address] [facility] 230 [place] [address] Registered Nurse Family Medicine 08/14/24 Braeden Dunham LPC Therapist Behavioral Health 11/25/24 documented as of this encounter
--- OUTSIDE RECORDS SUMMARY | 2024-12-12 10:49 | XMS_ITS | Encounter Summary ---
Author Organization [facility] Address [address] [facility] [place] [address] Care Team Providers Care Label Stitcher Name Role Phone Jer Rizo MD Primary Care Provider [phone] Aggie Gallardo SODA CLERK-DIAL LATHE OPERATOR Unavailable Jer Rizo MD Unavailable [phone] Madyson Figueroa RN Unavailable [phone] Braeden Dunham LPC Unavailable Unavailable Encounter Details Date Type Department Care Team (Late st Contact Info) Description 10/28/2024 Abstract [facility] 112 [facility] 110 [place] [address] Jer Rizo MD 112 [facility] 110 [place] [address] Social History Tobacco Use Types [...] any clubs o r organizations such as buddhism groups, unions, fraternal or athletic groups, or [...] Recorded Patient Health Questionnaire-2 Score 0 10/23/2024 [facility] of Occupat ional Health - Occupational Stress [...] [address] JOSE ARMANDO [address] [place] [address] Erin Tariq PA [address] Jose Armando 110 [place] [address] 12/23/2024 1:00 PM EDT Office Visit [facility] [address] JOSE ARMANDO 160 [place] [address] Aggie Gallardo, SODA CLERK-DIAL LATHE OPERATOR [address] Jose Armando 160 [place] [address] 03/06/2025 10:40 AM EDT Office Visit [facility] [address] JOSE ARMANDO 120 [place] [address] Tip Morillo DPM 3006 [facility] 5 [place] [address] documented as of this encounter Goals Goal [...] documented as of this encounter Care Teams Label Stitcher Relationship Specialty Start Date End Date Jer Rizo MD [address] [facility] 110 [place] [address] PCP - General Internal Medicine 01/03/23 Jer Rizo MD [address] [facility] 110 [place] [address] PCP - Sari HERNANDEZ 05/29/24 Aggie Gallardo APRN-DIAL LATHE OPERATOR [address] [facility] 160 [place] [address] Nurse Practitioner Psychiatry 06/13/24 Madyson Figueroa, BETY [address] [facility] 230 [place] [address] Registered Nurse Family Medicine 08/14/24 Braeden Dunham LPC Therapist Behavioral Health 11/25/24 documented as of this encounter
--- OUTSIDE RECORDS SUMMARY | 2024-12-12 10:49 | XMS_ITS | Encounter Summary ---
Author Organization [facility] Address [address] [facility] [place] [address] Care Team Providers Care Acupressurist Name Role Phone Jer Rizo MD Primary Care Provider [phone] Jer Rizo MD Unavailable [phone] Aggie Gallardo UTILIZATION REVIEWER-DEVICE SALES CONSULTANT Unavailable Jer Rizo MD Unavailable [phone] Madyson Figueroa RN Unavailable [phone] Braeedn Dunham LPC Unavailable Unavailable Encounter Details Date Type Department Care Team (Late st Contact Info) Description 01/19/2023 Orders Only [facility] [address] [facility] [address] [place] [address] A, Unknown Practice [address] [place], [place] [address] Social History Tobacco Use Types Packs/Day Years [...] Visit [facility] [address] [facility] 110 [place] [address] Erin Tariq, PA [address] [facility] 110 [place] [address] 12/23/2024 1:00 PM EDT Office Visit [facility] [address] [facility] 160 [place] [address] Aggie Gallardo, UTILIZATION REVIEWER-DEVICE SALES CONSULTANT [address] [facility] 160 [place] [address] 03/06/2025 10:40 AM EDT Office Visit [facility] [address] [facility] 120 [place] [address] Tip Morillo, DPM 3006 [facility] 5 [place] [address] documented as of this encounter Procedures Procedure [...] on filedocumented in this encounter Care Teams Acupressurist Relationship Specialty Start Date End Date Jer Rizo MD [address] [facility] 110 [place] [address] PCP - General Internal Medicine 01/03/23 Jer Rizo MD [address] [facility] 110 [place] [address] PCP - Devoted 05/29/23 05/28/24 Jer Rizo MD [address] [facility] 110 [place] [address] PCP - Sari HERNANDEZ 05/29/24 Aggie Gallardo APRN-DEVICE SALES CONSULTANT 112 [facility] 160 [place] [address] Nurse Practitioner Psychiatry 06/13/24 Madyson Figueroa, BETY [address] [facility] 230 [place] [address] Registered Nurse Family Medicine 08/14/24 Braeden Dunham LPC Therapist Behavioral Health 11/25/24 documented as of this encounter
--- OUTSIDE RECORDS SUMMARY | 2024-12-12 10:49 | XMS_ITS | Encounter Summary ---
Author Organization [facility] Address [address] [facility] [place] [address] Care Team Providers Care Retail Security Professional Name Role Phone Jer Rizo MD Primary Care Provider Aggie Gallardo REMOTE OPERATIONS PRODUCER-ECHOCARDIOGRAPH TECH Unavailable Jer Rizo MD Unavailable [phone] Madyson Figueroa RN Unavailable [phone] Braeden Dunham LPC Unavailable Unavailable Reason for Visit * Reason Comments Med Refill Encounter Details Date Type Department Care Team (Late st Contact Info) Description 11/09/2024 Refill [facility] [address] [facility] 160 [place] [address] Aggie Gallardo, REMOTE OPERATIONS PRODUCER-ECHOCARDIOGRAPH TECH 112 [facility] 160 [place], [place] [id number] JENN (generalized anxiety disorder) Social History Tobacco [...] any clubs o r organizations such as cheondoism groups, unions, fraternal [...] 10/23/2024 [facility] of Occupat ional Health [...] any time in the past 12 m [facility], were you homeless or [...] FM [address] JOSE ARMANDO 110 [place] [address] Erin Tariq PA [address] Jose Armando 110 [place] [address] 12/23/2024 1:00 PM EDT Office Visit [facility] [address] JOSE ARMANDO 160 [place] [address] Daily-Aggie Seymour, REMOTE OPERATIONS PRODUCER-ECHOCARDIOGRAPH TECH [address] Jose Armando 160 [place] [address] 03/06/2025 10:40 AM EDT Office Visit [facility] [address] JSOE ARMANDO [address] [place] [address] Tip Morillo DPM 3006 [facility] 5 [place] [address] documented as of this encounter [...] documented as of this encounter Care Teams Retail Security Professional Relationship Specialty Start Date End Date Jer Rizo MD [address] Jose Armando 110 [place] [address] PCP - General Internal Medicine 01/03/23 Jer Rizo MD [address] Jose Armando 110 [place] [address] PCP - Sari EHRNANDEZ 05/29/24 Aggie Gallardo, REMOTE OPERATIONS PRODUCER-ECHOCARDIOGRAPH TECH [address] Jose Armando 160 [place] [address] Nurse Practitioner Psychiatry 06/13/24 Madyson Figueroa, BETY [address] Jose Armando 230 [place] [address] Registered Nurse Family Medicine 08/14/24 Braeden Dunham LPC Therapist Behavioral Health 11/25/24 documented as of this encounter
--- OUTSIDE RECORDS SUMMARY | 2024-12-12 10:49 | XMS_ITS | Encounter Summary ---
Author Organization [facility] Address [address] [facility] [place] [address] Care Team Providers Care Hop Worker Name Role Phone Jer Rizo MD Primary Care Provider [phone] Aggie Gallardo MEDICAL OFFICE PROFESSIONAL INSTRUCTOR-DINKEY OPERATOR SLATE Unavailable Jer Rizo MD Unavailable [phone] Madyson Figueroa RN Unavailable [phone] Braeden Dunham LPC Unavailable Unavailable Encounter Details Date Type Department Care Team (Late st Contact Info) Description 12/02/2024 Abstract [facility] 112 [facility] 110 [place] [address] Jer Rizo MD 112 [facility] 110 [place] [address] Social History Tobacco Use Types [...] and Family Not on file 12/04/2023 Attends [employer] Not on file 12/03 Do you [...] Recorded Patient Health Questionnaire-2 Score 0 10/23/2024 [facility] of Occupat ional Health - Occupational [...] [address] JOSE ARMANDO [address] [place] [address] Erin Tariq PA [address] Jose Armando 110 [place] [address] 12/23/2024 1:00 PM EDT Office Visit [facility] [address] JOSEA RMANDO 160 [place] [address] Aggie Gallardo, MEDICAL OFFICE PROFESSIONAL INSTRUCTOR-DINKEY OPERATOR SLATE [address] Jose Armando 160 [place] [address] 03/06/2025 10:40 AM EDT Office Visit [facility] [address] JOSE ARMANDO [address] [place] [address] Tip Morillo DPM 3006 [facility] 5 [place] [address] documented as of this encounter Goals Goal [...] documented as of this encounter Care Teams Hop Worker Relationship Specialty Start Date End Date Jer Rizo MD [address] [facility] 110 [place] [address] PCP - General Internal Medicine 01/03/23 Jer Rizo MD [address] [facility] 110 [place] [address] PCP - Sari HERNANDEZ 05/29/24 Aggie Gallardo APRN-DINKEY OPERATOR SLATE [address] [facility] 160 [place] [address] Nurse Practitioner Psychiatry 06/13/24 Madyson Figueroa, BETY [address] [facility] 230 [place] [address] Registered Nurse Family Medicine 08/14/24 Braeden Dunham LPC Therapist Behavioral Health 11/25/24 documented as of this encounter
--- OUTSIDE RECORDS SUMMARY | 2024-12-12 10:49 | XMS_ITS | Encounter Summary ---
Author Organization [facility] Address [address] [facility] [place] [address] Care Team Providers Care Transactional Attorney Name Role Phone Jer Rizo MD Primary Care Provider [phone] Aggie Gallardo ELECTRONIC ASSEMBLER GROUP LEADER-ESCALATOR INSTALLER Unavailable Jer Rizo MD Unavailable [phone] Madyson Figueroa RN Unavailable [phone] Braeden Dunham LPC Unavailable Unavailable Encounter Details Date Type Department Care Team (Late st Contact Info) Description 11/15/2024 Abstract [facility] 112 [facility] 110 [place] [address] Jer Rizo MD 112 [facility] 110 [place] [address] Social History Tobacco Use Types [...] Patient Health Questionnaire-2 Score 0 10/23/2024 [facility] of Occupat ional Health [...] [address] JOSE ARMANDO [address] [place] [address] Erin Tariq PA [address] Jose Armando 110 [place] [address] 12/23/2024 1:00 PM EDT Office Visit [facility] [address] JOSE ARMANDO 160 [place] [address] Aggie Gallardo, ELECTRONIC ASSEMBLER GROUP LEADER-ESCALATOR INSTALLER [address] Jose Armando 160 [place] [address] 03/06/2025 10:40 AM EDT Office Visit [facility] [address] JOSE ARMANDO [address] [place] [address] Tip Morillo DPM 3006 [facility] 5 [place] [address] documented as of this encounter Goals Goal [...] documented as of this encounter Care Teams Transactional Attorney Relationship Specialty Start Date End Date Jer Rizo MD [address] [facility] 110 [place] [address] PCP - General Internal Medicine 01/03/23 Jer Rizo MD [address] [facility] 110 [place] [address] PCP - Sari HERNANDEZ 05/29/24 Aggie Gallardo APRN-ESCALATOR INSTALLER [address] [facility] 160 [place] [address] Nurse Practitioner Psychiatry 06/13/24 Madyson Figueroa, BETY [address] [facility] 230 [place] [address] Registered Nurse Family Medicine 08/14/24 Braeden Dunham LPC Therapist Behavioral Health 11/25/24 documented as of this encounter
--- OUTSIDE RECORDS SUMMARY | 2024-12-12 10:49 | XMS_ITS | Encounter Summary ---
Author Organization [facility] Address [address] [facility] [place] [address] Care Team Providers Care Data Communications Analyst Name Role Phone Jer Rizo MD Primary Care Provider [phone] Jer Rizo MD Unavailable [phone] Aggie Gallardo SHEET METAL MECHANIC-MOLDING MACHINE TENDER Unavailable Jer Rizo MD Unavailable [phone] Madyson Figueroa RN Unavailable [phone] Braeden Dunham LPC Unavailable Unavailable Encounter Details Date Type Department Care Team (Late st Contact Info) Description 09/07/2023 Abstract [facility] 112 [facility] 110 [place] [address] Jer Rizo MD 112 [facility] 110 [place] [address] Social History Tobacco Use Types [...] [address] JOSE ARMANDO [address] [place] [address] Erin Tariq PA [address] Jose Armando 110 [place] [address] 12/23/2024 1:00 PM EDT Office Visit [facility] [address] JOSE ARMANDO 160 [place] [address] Aggie Gallardo, SHEET METAL MECHANIC-MOLDING MACHINE TENDER [address] Jose Armando 160 [place] [address] 03/06/2025 10:40 AM EDT Office Visit [facility] [address] JOSE ARMANDO 120 [place] [address] Tip Morillo, DPYared 3006 [facility] 5 [place] [address] documented as of this encounter Visit Diagnoses Not on filedocumented in this encounter Additional Health Concerns Assessment Noted Time PHQ-9 Depression Total Score: 20 023 12:00 PM EDT documented as of this encounter Care Teams Data Communications Analyst Relationship Specialty Start Date End Date Jer Rizo MD [address] Jose Armando 110 [place] [address] PCP - General Internal Medicine 01/03/23 Jer Rizo MD [address] Jose Armando 110 [place] [address] PCP - Devoted 05/29/23 05/28/24 Jer Rizo MD [address] Jose Armando 110 [place] [address] PCP - Sari HERNANDEZ 05/29/24 Aggie Gallardo, SHEET METAL MECHANIC-MOLDING MACHINE TENDER 112 [facility] 160 [place] [address] Nurse Practitioner Psychiatry 06/13/24 Madyson Figueroa, RN [address] [facility] 230 [place] [address] Registered Nurse Family Medicine 08/14/24 Braeden Dunham LPC Therapist Behavioral Health 11/25/24 documented as of this encounter
--- OUTSIDE RECORDS SUMMARY | 2024-12-12 10:49 | XMS_ITS | Encounter Summary ---
Author Organization [facility] Address [address] [facility] [place] [address] Care Team Providers Care Sql Tech Name Role Phone Jer Rizo MD Primary Care Provider Aggie Gallardo CORROSION CONTROL FITTER-STRAP MACHINE OPERATOR Unavailable Jer Rizo MD Unavailable [phone] Madyson Figueroa RN Unavailable [phone] Braeden Dunham LPC Unavailable Unavailable Encounter Details Date Type Department Care Team (Late st Contact Info) Description 10/02/2024 Abstract [facility] 112 [facility] 110 [place] [address] Jer Rizo MD 112 [facility] 110 [place] [address] Social History Tobacco Use Types [...] Recorded Patient Health Questionnaire-2 Score 2 07/30/2024 [facility] of Occupat ional Health - Occupational [...] were you homeless or living in a alf (including now)? No 12/04/2023 Education Answer Date [...] [address] JOSE ARMANDO [address] [place] [address] Erin Tariq PA [address] Jose Armando 110 [place] [address] 12/23/2024 1:00 PM EDT Office Visit [facility] [address] JOSE ARMANDO 160 [place] [address] Aggie Gallardo, CORROSION CONTROL FITTER-STRAP MACHINE OPERATOR [address] Jose Armando 160 [place] [address] 03/06/2025 10:40 AM EDT Office Visit [facility] [address] JOSE ARMANDO 120 [place] [address] Tip Morillo DPM 3006 [facility] 5 [place] [address] documented as of this encounter Goals Goal [...] documented as of this encounter Care Teams Sql Tech Relationship Specialty Start Date End Date Jer Rizo MD [address] [facility] 110 [place] [address] PCP - General Internal Medicine 01/03/23 Jer Rizo MD [address] [facility] 110 [place] [address] PCP - Sari HERNANDEZ 05/29/24 Aggie Gallardo APRN-STRAP MACHINE OPERATOR [address] [facility] 160 [place] [address] Nurse Practitioner Psychiatry 06/13/24 Madyson Figueroa, BETY [address] [facility] 230 [place] [address] Registered Nurse Family Medicine 08/14/24 Braeden Dunham LPC Therapist Behavioral Health 11/25/24 documented as of this encounter
--- OUTSIDE RECORDS SUMMARY | 2024-12-12 10:49 | XMS_ITS | Encounter Summary ---
Author Organization [facility] Address [address] [facility] [place] [address] Care Team Providers Care Tour Director Name Role Phone Jer Rizo MD Primary Care Provider [phone] Aggie Gallardo SENIOR JAVA PROGRAMMER ANALYST-BLUEPRINT ASSEMBLER Unavailable Jer Rizo MD Unavailable [phone] Madyson Figueroa RN Unavailable [phone] Braeden Dunham LPC Unavailable Unavailable Encounter Details Date Type Department Care Team (Late st Contact Info) Description 11/07/2024 Abstract [facility] 112 [facility] 110 [place] [address] Jer Rizo MD 112 [facility] 110 [place] [address] Social History Tobacco Use Types [...] Recorded Patient Health Questionnaire-2 Score 0 10/23/2024 [facility] of Occupat ional Health - Occupational [...] you homeless or living in a senior living (including now)? No 12/04/2023 Education Answer Date [...] [address] JOSE ARMANDO [address] [place] [address] Erin Tariq PA [address] Jose Armando 110 [place] [address] 12/23/2024 1:00 PM EDT Office Visit [facility] [address] JOSE ARMANDO 160 [place] [address] Aggie Gallardo, SENIOR JAVA PROGRAMMER ANALYST-BLUEPRINT ASSEMBLER [address] Jose Armando 160 [place] [address] 03/06/2025 10:40 AM EDT Office Visit [facility] [address] JOSE ARMANDO [address] [place] [address] Tip Morillo DPM 3006 [facility] 5 [place] [address] documented as of this encounter Goals Goal [...] documented as of this encounter Care Teams Tour Director Relationship Specialty Start Date End Date Jer Rizo MD [address] [facility] 110 [place] [address] PCP - General Internal Medicine 01/03/23 Jer Rizo MD [address] [facility] 110 [place] [address] PCP - Sari HERNANDEZ 05/29/24 Aggie Gallardo APRN-BLUEPRINT ASSEMBLER [address] [facility] 160 [place] [address] Nurse Practitioner Psychiatry 06/13/24 Madyson Figueroa, BETY [address] [facility] 230 [place] [address] Registered Nurse Family Medicine 08/14/24 Braeden Dunham LPC Therapist Behavioral Health 11/25/24 documented as of this encounter
--- OUTSIDE RECORDS SUMMARY | 2024-12-12 10:49 | XMS_ITS | Encounter Summary ---
Author Organization [facility] Address [address] [facility] [place] [address] Care Team Providers Care Feeder Associate Name Role Phone Jer Rizo MD Primary Care Provider [phone] Aggie Gallardo MACHINE INSTALLER-STAGECRAFT PROFESSOR Unavailable Jer Rizo MD Unavailable [phone] Madyson Figueroa RN Unavailable [phone] Braeden Dunham LPC Unavailable Unavailable Encounter Details Date Type Department Care Team (Late st Contact Info) Description 11/13/2024 Abstract [facility] 112 [facility] 110 [place] [address] Jer Rizo MD 112 [facility] 110 [place] [address] Social History Tobacco Use Types [...] any clubs o r organizations such as advent groups, unions, fraternal or athletic groups, or [...] Recorded Patient Health Questionnaire-2 Score 0 10/23/2024 [facility] - [...] [address] JOSE ARMANDO 110 [place] [address] Erin Tariq PA [address] Jose Armando 110 [place] [address] 12/23/2024 1:00 PM EDT Office Visit [facility] [address] JOSE ARMANDO 160 [place] [address] Aggie Gallardo, MACHINE INSTALLER-STAGECRAFT PROFESSOR [address] Jose Armando 160 [place] [address] 03/06/2025 10:40 AM EDT Office Visit [facility] [address] JOSE ARMANDO 120 [place] [address] Tip Morillo DPM 3006 [facility] 5 [place] [address] documented as of this encounter Goals Goal [...] documented as of this encounter Care Teams Feeder Associate Relationship Specialty Start Date End Date Jer Rizo MD [address] [facility] 110 [place] [address] PCP - General Internal Medicine 01/03/23 Jer Rizo MD [address] [facility] 110 [place] [address] PCP - Sari HERNANDEZ 05/29/24 Aggie Gallardo APRN-STAGECRAFT PROFESSOR [address] [facility] 160 [place] [address] Nurse Practitioner Psychiatry 06/13/24 Madyson Figueroa, BETY [address] [facility] 230 [place] [address] Registered Nurse Family Medicine 08/14/24 Braeden Dunham LPC Therapist Behavioral Health 11/25/24 documented as of this encounter
--- OUTSIDE RECORDS SUMMARY | 2024-12-12 10:49 | XMS_ITS | Encounter Summary ---
Author Organization [facility] Address [address] [facility] [place] [address] Care Team Providers Care User Experience Architect Name Role Phone Jer Rizo MD Primary Care Provider [phone] Aggie Gallardo SOFA COVER INSPECTOR-TELEGRAPH INSPECTOR Unavailable Jer Rizo MD Unavailable [phone] Madyson Figueroa RN Unavailable [phone] Braeden Dunham LPC Unavailable Unavailable Encounter Details Date Type Department Care Team (Late st Contact Info) Description 10/28/2024 Abstract [facility] 112 [facility] 110 [place] [address] Jer Rizo MD 112 [facility] 110 [place] [address] Social History Tobacco Use Types [...] any clubs o r organizations such as sikhism groups, unions, fraternal or athletic groups, or [...] Recorded Patient Health Questionnaire-2 Score 0 10/23/2024 [facility] Occupat ional [facility] [...] [address] JOSE ARMANDO 110 [place] [address] Erin Tariq PA [address] Jose Armando 110 [place] [address] 12/23/2024 1:00 PM EDT Office Visit [facility] [address] JOSE ARMANDO 160 [place] [address] Aggie Gallardo, SOFA COVER INSPECTOR-TELEGRAPH INSPECTOR [address] Jose Armando 160 [place] [address] 03/06/2025 10:40 AM EDT Office Visit [facility] [address] JOSE ARMANDO 120 [place] [address] Tip Morillo DPM 3006 [facility] 5 [place] [address] documented as of this encounter Goals Goal [...] documented as of this encounter Care Teams User Experience Architect Relationship Specialty Start Date End Date Jer Rizo MD [address] [facility] 110 [place] [address] PCP - General Internal Medicine 01/03/23 Jer Rizo MD [address] [facility] 110 [place] [address] PCP - Sari HERNANDEZ 05/29/24 Aggie Gallardo APRN-TELEGRAPH INSPECTOR [address] [facility] 160 [place] [address] Nurse Practitioner Psychiatry 06/13/24 Madyson Figueroa, BETY [address] [facility] 230 [place] [address] Registered Nurse Family Medicine 08/14/24 Braeden Dunham LPC Therapist Behavioral Health 11/25/24 documented as of this encounter
--- OUTSIDE RECORDS SUMMARY | 2024-12-12 10:49 | XMS_ITS | Encounter Summary ---
Author Organization [facility] Address [address] [place] [address] Care Team Providers Care Property Technician Name Role Phone Jer Rizo MD Primary Care Provider [phone] Jer Rizo MD Unavailable [phone] Aggie Gallardo RESEARCH ADVISOR-RULING TECHNICIAN Unavailable Jer Rizo MD Unavailable [phone] Madyson Figueroa RN Unavailable [phone] Braeden Dunham LPC Unavailable Unavailable Encounter Details Date Type Department Care Team (Late st Contact Info) Description 03/28/2023 Abstract [facility] 112 [facility] 110 [place] [phone] Jer Rizo MD 112 [facility] 110 [place] [address] Social History Tobacco Use Types [...] [address] JOSE ARMANDO 110 [place] [address] Erin Tariq PA [address] Jose Armando 110 [place] [address] 12/23/2024 1:00 PM EDT Office Visit [facility] [address] JOSE ARMANDO 160 [place] [address] Aggie Gallardo, RESEARCH ADVISOR-RULING TECHNICIAN [address] Jose Armando 160 [place] [address] 03/06/2025 10:40 AM EDT Office Visit [facility] [address] JOSE ARMANDO 120 [place] [address] Tip Morillo, DPYared 3006 [facility] 5 [place] [address] documented as of this encounter Visit Diagnoses Not on filedocumented in this encounter Additional Health Concerns Assessment Noted Time PHQ-9 Depression Total Score: 20 023 12:00 PM EDT documented as of this encounter Care Teams Property Technician Relationship Specialty Start Date End Date Jer Rizo MD [address] Jose Armando 110 [place] [address] PCP - General Internal Medicine 01/03/23 Jer Rizo MD [address] Jose Armando 110 [place] [address] PCP - Devoted 05/29/23 05/28/24 Jer Rizo MD [address] Jose Armando 110 [place] [address] PCP - Sari HERNANDEZ 05/29/24 Aggie Gallardo, RESEARCH ADVISOR-RULING TECHNICIAN 112 [facility] 160 [place] [address] Nurse Practitioner Psychiatry 06/13/24 Madyson Figueroa, RN [address] [facility] 230 [place] [address] Registered Nurse Family Medicine 08/14/24 Braeden Dunham LPC Therapist Behavioral Health 11/25/24 documented as of this encounter
--- OUTSIDE RECORDS SUMMARY | 2024-12-12 10:49 | XMS_ITS | Encounter Summary ---
Author Organization [facility] Address [address] [facility] [place] [address] Care Team Providers Care Institutional Asset Manager Name Role Phone Jer Rizo MD Primary Care Provider [phone] Aggie Gallardo INTEGRATED MARKETING SPECIALIST-EDUCATION SUPERVISOR Unavailable Jer Rizo MD Unavailable [phone] Madyson Figueroa RN Unavailable [phone] Braeden Dunham LPC Unavailable Unavailable Encounter Details Date Type Department Care Team (Late st Contact Info) Description 11/06/2024 Abstract [facility] 112 [facility] 110 [place] [address] Jer Rizo MD 112 [facility] 110 [place] [address] Social History Tobacco Use Types [...] and Family Not on file 12/04/2023 Attends [employer] [facility] Not on file 12/03 Do you belong to any clubs o r organizations such as yarsanism groups, unions, fraternal or athletic groups, or [...] [address] JOSE ARMANDO [address] [place] [address] Erin Tariq PA [address] Jose Armando 110 [place] [address] 12/23/2024 1:00 PM EDT Office Visit [facility] [address] JOSE ARMANDO 160 [place] [address] Aggie Gallardo, INTEGRATED MARKETING SPECIALIST-EDUCATION SUPERVISOR [address] Jose Armando 160 [place] [address] 03/06/2025 10:40 AM EDT Office Visit [facility] [address] JOSE ARMANDO 120 [place] [address] Tip Morillo DPM 3006 [facility] 5 [place] [address] documented as of this encounter Goals Goal [...] documented as of this encounter Care Teams Institutional Asset Manager Relationship Specialty Start Date End Date Jer Rizo MD [address] [facility] 110 [place] [address] PCP - General Internal Medicine 01/03/23 Jer Rizo MD [address] [facility] 110 [place] [address] PCP - Sari HERNANDEZ 05/29/24 Aggie Gallardo APRN-EDUCATION SUPERVISOR [address] [facility] 160 [place] [address] Nurse Practitioner Psychiatry 06/13/24 Madyson Figueroa, BETY [address] [facility] 230 [place] [address] Registered Nurse Family Medicine 08/14/24 Braeden Dunham LPC Therapist Behavioral Health 11/25/24 documented as of this encounter
--- OUTSIDE RECORDS SUMMARY | 2024-12-12 10:49 | XMS_ITS | Encounter Summary ---
Author Organization [facility] Address [address] [facility] [place] [address] Care Team Providers Care Sap Basis Consultant Name Role Phone Jer Rizo MD Primary Care Provider [phone] Jer Rizo MD Unavailable [phone] Aggie Gallardo BAR PILOT-SR. MERCHANDISE PLANNER Unavailable Jer Rizo MD Unavailable [phone] Madyson Figueroa RN Unavailable [phone] Braeden Dunham LPC Unavailable Unavailable Encounter Details Date Type Department Care Team (Late st Contact Info) Description 06/27/2023 Abstract [facility] 112 [facility] 110 [place] [address] Jer Rizo MD 112 [facility] 110 [place] [address] Social History Tobacco Use Types [...] [address] JOSE ARMANDO 110 [place] [address] Erin Tariq PA [address] Jose Armando 110 [place] [address] 12/23/2024 1:00 PM EDT Office Visit [facility] [address] JOSE ARMANDO 160 [place] [address] Aggie Gallardo, BAR PILOT-SR. MERCHANDISE PLANNER [address] Jose Armando 160 [place] [address] 03/06/2025 10:40 AM EDT Office Visit [facility] [address] JOSE ARMANDO 120 [place] [address] Tip Morillo, DPYared 3006 [facility] 5 [place] [address] documented as of this encounter Visit Diagnoses Not on filedocumented in this encounter Additional Health Concerns Assessment Noted Time PHQ-9 Depression Total Score: 20 023 12:00 PM EDT documented as of this encounter Care Teams Sap Basis Consultant Relationship Specialty Start Date End Date Jer Rizo MD [address] Jose Armando 110 [place] [address] PCP - General Internal Medicine 01/03/23 Jer Rizo MD [address] Jose Armando 110 [place] [address] PCP - Devoted 05/29/23 05/28/24 Jer Rizo MD [address] Jose Armando 110 [place] [address] PCP - Sari HERNANDEZ 05/29/24 Aggie Gallardo, BAR PILOT-SR. MERCHANDISE PLANNER 112 [facility] 160 [place] [address] Nurse Practitioner Psychiatry 06/13/24 Madyson Figueroa, RN [address] [facility] 230 [place] [address] Registered Nurse Family Medicine 08/14/24 Braeden Dunham LPC Therapist Behavioral Health 11/25/24 documented as of this encounter
--- OUTSIDE RECORDS SUMMARY | 2024-12-12 10:49 | XMS_ITS | Encounter Summary ---
Author Organization [facility] Address [address] [facility] [place] [address] Care Team Providers Care Barrel Roller Name Role Phone Jer Rizo MD Primary Care Provider [phone] Jer Rizo MD Unavailable [phone] Aggie Gallardo CIRCUS LABORER-MANAGER NEWS Unavailable Jer Rizo MD Unavailable [phone] Madyson Figueroa RN Unavailable [phone] Braeden Dunham LPC Unavailable Unavailable Encounter Details Date Type Department Care Team (Late st Contact Info) Description 08/03/2023 Abstract [facility] 112 [facility] 110 [place] [address] Jer Rizo MD 112 [facility] 110 [place] [address] Social History Tobacco Use Types [...] [address] JOSE ARMANDO 110 [place] [address] Erin Tariq PA [address] Jose Armando 110 [place] [address] 12/23/2024 1:00 PM EDT Office Visit [facility] [address] JOSE ARMANDO 160 [place] [address] Aggie Gallardo, CIRCUS LABORER-MANAGER NEWS [address] Jose Armando 160 [place] [address] 03/06/2025 10:40 AM EDT Office Visit [facility] [address] JOSE ARMANDO 120 [place] [address] Tip Morillo, DPYared 3006 [facility] 5 [place] [address] documented as of this encounter Visit Diagnoses Not on filedocumented in this encounter Additional Health Concerns Assessment Noted Time PHQ-9 Depression Total Score: 20 023 12:00 PM EDT documented as of this encounter Care Teams Barrel Roller Relationship Specialty Start Date End Date Jer Rizo MD [address] Jose Armando 110 [place] [address] PCP - General Internal Medicine 01/03/23 Jer Rizo MD [address] Jose Armando 110 [place] [address] PCP - Devoted 05/29/23 05/28/24 Jer Rizo MD [address] Jose Armando 110 [place] [address] PCP - Sari HERNANDEZ 05/29/24 Aggie Gallardo, CIRCUS LABORER-MANAGER NEWS 112 [facility] 160 [place] [address] Nurse Practitioner Psychiatry 06/13/24 Madyson Figueroa, RN [address] [facility] 230 [place] [address] Registered Nurse Family Medicine 08/14/24 Braeden Dunham LPC Therapist Behavioral Health 11/25/24 documented as of this encounter
--- OUTSIDE RECORDS SUMMARY | 2024-12-12 10:49 | XMS_ITS | Encounter Summary ---
Author Organization [facility] Address [address] [facility] [place] [address] Care Team Providers Care Specimen Accessioner Name Role Phone Jer Rizo MD Primary Care Provider [phone] Aggie Gallardo ASSISTANT PRESS OPERATOR-LOADMASTER Unavailable Jer Rizo MD Unavailable [phone] Madyson Figueroa RN Unavailable [phone] Braeden Dunham LPC Unavailable Unavailable Encounter Details Date Type Department Care Team (Late st Contact Info) Description 10/23/2024 Abstract [facility] 112 [facility] 110 [place] [address] Jer Rizo MD [address] [facility] 110 [place] [address] Social History Tobacco Use Types [...] and Family Not on file 12/04/2023 Attends [facility] Not on file 12/03 Do you belong to any clubs o r organizations such as mosque groups, unions, fraternal or athletic groups, or [...] any time in the past 12 [facility], were you homeless or living in a [...] [address] JOSE ARMANDO [address] [place] [address] Erin Tariq PA [address] Jose Armando 110 [place] [address] 12/23/2024 1:00 PM EDT Office Visit [facility] [address] JOSE ARMANDO [address] [place] [address] Aggie Gallardo, ASSISTANT PRESS OPERATOR-LOADMASTER [address] Jose Armando 160 [place] [address] 03/06/2025 10:40 AM EDT Office Visit [facility] [address] JOSE ARMANDO [address] [place] [address] Tip Morillo, DPM 3006 [facility] 5 [place], [place] [address] documented as of this encounter Goals Goal [...] documented as of this encounter Care Teams Specimen Accessioner Relationship Specialty Start Date End Date Jer Rizo MD [address] [facility] 110 [place] [address] PCP - General Internal Medicine 01/03/23 Jer Rizo MD [address] [facility] 110 [place] [address] PCP - Sari HERNANDEZ 05/29/24 Aggie Gallardo, ASSISTANT PRESS OPERATOR-LOADMASTER [address] [facility] 160 [place] [address] Nurse Practitioner Psychiatry 06/13/24 Madyson Figueroa, BETY [address] [facility] 230 [place], [place] [address] Registered Nurse Family Medicine 08/14/24 Braeden Dunham LPC Therapist Behavioral Health 11/25/24 documented as of this encounter
--- OUTSIDE RECORDS SUMMARY | 2024-12-12 10:49 | XMS_ITS | Encounter Summary ---
Author Organization [facility] Address [address] [facility] [place] [address] Care Team Providers Care Manufacturing Engineering Technician Name Role Phone Jer Rizo MD Primary Care Provider Aggie Gallardo LITHOGRAPHIC PLATE MAKER APPRENTICE-PROCESS DEVELOPER Unavailable Jer Rizo MD Unavailable [phone] Madyson Figueroa RN Unavailable [phone] Braeden Dunham LPC Unavailable Unavailable Encounter Details Date Type Department Care Team (Late st Contact Info) Description 11/04/2024 Abstract [facility] 112 [facility] 110 [place] [address] Jer Rizo MD 112 [facility] 110 [place] [address] Social History Tobacco Use Types [...] [address] JOSE ARMANDO [address] [place] [address] Erin Tariq PA [address] Jose Armando 110 [place] [address] 12/23/2024 1:00 PM EDT Office Visit [facility] [address] JOSE ARMANDO 160 [place] [address] Aggie Gallardo, LITHOGRAPHIC PLATE MAKER APPRENTICE-PROCESS DEVELOPER [address] Jose Armando 160 [place] [address] 03/06/2025 10:40 AM EDT Office Visit [facility] [address] JOSE ARMANDO [address] [place] [address] Tip Morillo DPM 3006 [facility] 5 [place] [address] documented as of this encounter Goals Goal [...] documented as of this encounter Care Teams Manufacturing Engineering Technician Relationship Specialty Start Date End Date Jer Rizo MD [address] [facility] 110 [place] [address] PCP - General Internal Medicine 01/03/23 Jer Rizo MD [address] [facility] 110 [place] [address] PCP - Sari HERNANDEZ 05/29/24 Aggie Gallardo APRN-PROCESS DEVELOPER [address] [facility] 160 [place] [address] Nurse Practitioner Psychiatry 06/13/24 Madyson Figueroa, BETY [address] [facility] 230 [place] [address] Registered Nurse Family Medicine 08/14/24 Braeden Dunham LPC Therapist Behavioral Health 11/25/24 documented as of this encounter
--- OUTSIDE RECORDS SUMMARY | 2024-12-12 10:49 | XMS_ITS | Encounter Summary ---
Author Organization [facility] Address [address] [facility] [place] [address] Care Team Providers Care Computed Tomography Technician Name Role Phone Jer Rizo MD Primary Care Provider [phone] Jer Rizo MD Unavailable [phone] Aggie Gallardo STATISTICAL TYPIST-PREFORM PLATE MAKER Unavailable Jer Rizo MD Unavailable [phone] Madyson Figueroa RN Unavailable [phone] Braeden Dunham LPC Unavailable Unavailable Encounter Details Date Type Department Care Team (Late st Contact Info) Description 07/18/2023 Abstract [facility] 112 [facility] 110 [place] [address] Jer Rizo MD 112 [facility] 110 [place] [address] Social History Tobacco Use Types [...] [address] JOSE ARMANDO 110 [place] [address] Erin Tariq PA [address] Jose Armando 110 [place] [address] 12/23/2024 1:00 PM EDT Office Visit [facility] [address] JOSE ARMANDO 160 [place] [address] Aggie Gallardo, STATISTICAL TYPIST-PREFORM PLATE MAKER [address] Jose Armando 160 [place] [address] 03/06/2025 10:40 AM EDT Office Visit [facility] [address] JOSE ARMANDO [address] [place] [address] Tip Morillo, DPYared 3006 [facility] 5 [place] [address] documented as of this encounter Visit Diagnoses Not on filedocumented in this encounter Additional Health Concerns Assessment Noted Time PHQ-9 Depression Total Score: 20 023 12:00 PM EDT documented as of this encounter Care Teams Computed Tomography Technician Relationship Specialty Start Date End Date Jer Rizo MD [address] Jose Armando [address] [place] [address] PCP - General Internal Medicine 01/03/23 Jer Rizo MD [address] Jose Armando [address] [place] [address] PCP - Devoted 05/29/23 05/28/24 Jer Rizo MD [address] Jose Armando 110 [place] [address] PCP - Sari HERNANDEZ 05/29/24 Aggie Gallardo, STATISTICAL TYPIST-PREFORM PLATE MAKER 112 [facility] 160 [place] [address] Nurse Practitioner Psychiatry 06/13/24 Madyson Figueroa, RN [address] [facility] 230 [place] [address] Registered Nurse Family Medicine 08/14/24 Braeden Dunham LPC Therapist Behavioral Health 11/25/24 documented as of this encounter
--- OUTSIDE RECORDS SUMMARY | 2024-12-12 10:49 | XMS_ITS | Encounter Summary ---
Author Organization [facility] Address [address] [facility] [place] [address] Care Team Providers Care Tavern Operator Name Role Phone Jer Rizo MD Primary Care Provider [phone] Aggie Gallardo CLAIMS COORDINATOR-SENIOR QUALITY ANALYST Unavailable Jer Rizo MD Unavailable [phone] Madyson Figueroa RN Unavailable [phone] Braeden Dunham LPC Unavailable Unavailable Encounter Details Date Type Department Care Team (Late st Contact Info) Description 10/31/2024 Abstract [facility] [address] [facility] 110 [place] [address] Jer Rizo MD 112 [facility] 110 [place] [address] Social History Tobacco Use Types [...] and Family Not on file 12/04/2023 Attends [employer] [facility] Not on file 12/03 Do you belong to any clubs o r organizations such as hoahaoism groups, unions, fraternal or athletic groups, or [...] Patient Health Questionnaire-2 Score 0 10/23/2024 [facility] - Occupational [...] [address] JOSE ARMANDO [address] [place] [address] Erin Tariq PA [address] Jose Armando 110 [place] [address] 12/23/2024 1:00 PM EDT Office Visit [facility] [address] JOSE ARMANDO [address] [place] [address] Aggie Gallardo, CLAIMS COORDINATOR-SENIOR QUALITY ANALYST [address] Jose Armando 160 [place] [address] 03/06/2025 10:40 AM EDT Office Visit [facility] [address] JOSE ARMANDO [address] [place] [address] Tip Morillo DPM 3006 [facility] 5 [place] [address] documented as of this encounter Goals Goal [...] documented as of this encounter Care Teams Tavern Operator Relationship Specialty Start Date End Date Jer Rizo MD [address] [facility] 110 [place] [address] PCP - General Internal Medicine 01/03/23 Jre Rizo MD [address] [facility] 110 [place] [address] PCP - Sari HERNANDEZ 05/29/24 Aggie Gallardo APRN-SENIOR QUALITY ANALYST [address] [facility] 160 [place] [address] Nurse Practitioner Psychiatry 06/13/24 Madyson Figueroa, BETY [address] [facility] 230 [place] [address] Registered Nurse Family Medicine 08/14/24 Braeden Dunham LPC Therapist Behavioral Health 11/25/24 documented as of this encounter
--- OUTSIDE RECORDS SUMMARY | 2024-12-12 10:49 | XMS_ITS | Encounter Summary ---
Author Organization [facility] Address [address] [facility] [place] [address] Care Team Providers Care Motorboat Mechanic Inboard Name Role Phone Jer Rizo MD Primary Care Provider [phone] Jer Rizo MD Unavailable [phone] Aggie Gallardo MEN'S LOCKER ROOM ATTENDANT-UPSCALE SECURITY OFFICER Unavailable Jer Rizo MD Unavailable [phone] Madyson Figueroa RN Unavailable [phone] Braeden Dunham LPC Unavailable Unavailable Encounter Details Date Type Department Care Team (Late st Contact Info) Description 03/28/2023 Abstract [facility] 112 [facility] 110 [place] [id number] Jer Rizo MD 112 [facility] 110 [place] [address] Social History Tobacco Use Types [...] [address] JOSE ARMANDO 110 [place] [address] Erin Tariq PA [address] Jose Armando 110 [place] [address] 12/23/2024 1:00 PM EDT Office Visit [facility] [address] JOSE ARMANDO 160 [place] [address] Aggie Gallardo, MEN'S LOCKER ROOM ATTENDANT-UPSCALE SECURITY OFFICER [address] Jose Armando 160 [place] [address] 03/06/2025 10:40 AM EDT Office Visit [facility] [address] JOSE ARMANDO 120 [place] [address] Tip Morillo, DPYared 3006 [facility] 5 [place] [address] documented as of this encounter Visit Diagnoses Not on filedocumented in this encounter Additional Health Concerns Assessment Noted Time PHQ-9 Depression Total Score: 20 023 12:00 PM EDT documented as of this encounter Care Teams Motorboat Mechanic Inboard Relationship Specialty Start Date End Date Jer Rizo MD [address] Jose Armando 110 [place] [address] PCP - General Internal Medicine 01/03/23 Jer Rizo MD [address] Jose Armando 110 [place] [address] PCP - Devoted 05/29/23 05/28/24 Jer Rizo MD [address] Jose Armando 110 [place] [address] PCP - Sari HERNANDEZ 05/29/24 Aggie Gallardo, MEN'S LOCKER ROOM ATTENDANT-UPSCALE SECURITY OFFICER 112 [facility] 160 [place] [address] Nurse Practitioner Psychiatry 06/13/24 Madyson Figueroa, RN [address] [facility] 230 [place] [address] Registered Nurse Family Medicine 08/14/24 Braeden Dunham LPC Therapist Behavioral Health 11/25/24 documented as of this encounter
--- OUTSIDE RECORDS SUMMARY | 2024-12-12 10:50 | XMS_ITS | Encounter Summary ---
Author Organization [facility] Address [address] [facility] [place] [address] Care Team Providers Care Motor Assembler Name Role Phone Jer Rizo MD Primary Care Provider Aggie Gallardo FLIGHT SUPERINTENDENT-BUSINESS ACCOUNT LEADER Unavailable Jer Rizo MD Unavailable [phone] Madyson Figueroa RN Unavailable [phone] Braeden Dunham LPC Unavailable Unavailable Encounter Details Date Type Department Care Team (Late st Contact Info) Description 11/15/2024 Abstract [facility] 112 [facility] 110 [place] [address] Jre Rizo MD 112 [facility] 110 [place] [address] Social History Tobacco Use Types [...] and Family Not on file 12/04/2023 Attends Muslim Services Not on file 12/03 Do you belong to any clubs o r organizations such as baptism groups, unions, fraternal or athletic groups, or [...] Recorded Patient Health Questionnaire-2 Score 0 10/23/2024 [facility] of Occupat ional Health - Occupational [...] [address] JOSE ARMANDO [address] [place] [address] Erin Tariq PA [address] Jose Armando 110 [place] [address] 12/23/2024 1:00 PM EDT Office Visit [facility] [address] JOSE ARMANDO 160 [place] [address] Aggie Gallardo, FLIGHT SUPERINTENDENT-BUSINESS ACCOUNT LEADER [address] Jose Armando 160 [place] [address] 03/06/2025 10:40 AM EDT Office Visit [facility] [address] JOSE ARMANDO 120 [place] [address] Tip Morillo DPM 3006 [facility] 5 [place] [address] documented as of this encounter Goals Goal [...] as of this encounter Care Teams Motor Assembler Relationship Specialty Start Date End Date Jer Rizo MD [address] [facility] 110 [place] [address] PCP - General Internal Medicine 01/03/23 Jer Rizo MD [address] [facility] 110 [place] [address] PCP - Sari HERNANDEZ 05/29/24 Aggie Gallardo APRN-BUSINESS ACCOUNT LEADER [address] [facility] 160 [place] [address] Nurse Practitioner Psychiatry 06/13/24 Madyson Figueroa, BETY [address] [facility] 230 [place] [address] Registered Nurse Family Medicine 08/14/24 Braeden Dunham LPC Therapist Behavioral Health 11/25/24 documented as of this encounter
--- OUTSIDE RECORDS SUMMARY | 2024-12-12 10:50 | XMS_ITS | Encounter Summary ---
Author Organization [facility] Address [address] [facility] [place] [address] Care Team Providers Care Basting Puller Name Role Phone Jer Rizo MD Primary Care Provider [phone] Aggie Gallardo CARPET WEAVER-TUBE SPLICER Unavailable Jer Rizo MD Unavailable [phone] Madyson Figueroa RN Unavailable [phone] Braeden Dunham LPC Unavailable Unavailable Reason for Visit * Reason Comments Med Refill Encounter Details Date Type Department Care Team (Late st Contact Info) Description 12/05/2024 Refill [facility] [address] [facility] 110 [place] [address] Erin Tariq, PA [address] [place] 110 [place], [place] [id number] Hypothyroidism, unspecified type ; Hypokalemia Social History [...] Recorded Patient Health Questionnaire-2 Score 0 10/23/2024 [facility] of Occupat ional Health - Occupational Stress [...] FM [address] JOSE ARMANDO 110 [place] [address] Erin Tariq PA [address] Jose Armando 110 [place] [address] 12/23/2024 1:00 PM EDT Office Visit [facility] [address] JOSE ARMANDO 160 [place] [address] Aggie Gallardo, CARPET WEAVER-TUBE SPLICER [address] Jose Armando 160 [place] [address] 03/06/2025 10:40 AM EDT Office Visit [facility] [address] JOSE ARMANDO [address] [place] [address] Tip Morillo DPM 3006 [facility] Jose Armando 5 [place] [address] documented as of this encounter Goals Goal [...] documented as of this encounter Care Teams Basting Puller Relationship Specialty Start Date End Date Jer Rizo MD [address] Jose Armando 110 [place] [address] PCP - General Internal Medicine 01/03/23 Jer Rizo MD [address] Jose Armando 110 [place] [address] PCP - Sari HERNANDEZ 05/29/24 Aggie Gallardo, CARPET WEAVER-TUBE SPLICER [address] Jose Armando 160 [place] [address] Nurse Practitioner Psychiatry 06/13/24 Madyson Figueroa, BETY [address] [facility] [address] Jose Armando 230 [place] [address] Registered Nurse Family Medicine 08/14/24 Braeden Dunham LPC Therapist Behavioral Health 11/25/24 documented as of this encounter
--- OUTSIDE RECORDS SUMMARY | 2024-12-12 10:50 | XMS_ITS | Clinical Summary ---
Author Organization [facility] Address [address] [place] [address] Phone Care Team Providers Care Theatrical Performer Name Role Phone Unavailable Primary Care Provider Unavailabl e Encounters Date Type Department Care Team Description 10/16/[address] [facility] [address] [place] [place] [address] Scanning, Generic Provider from Last [...] MMR Vaccines (1 of 1 - Stand usmi series) 1962 Hepatitis C Screening 1979 Cervical [...] patient's age to complete this topic Hepatitis A Vaccines Aged Out No long [...] al Result from Last 3 Months Insurance [facility] D[facility]
--- OUTSIDE RECORDS SUMMARY | 2024-12-12 10:50 | XMS_ITS | Encounter Summary ---
Author Organization [facility] Address [address] [facility] [place] [address] Care Team Providers Care Production Operations Engineer Name Role Phone Jer Rizo MD Primary Care Provider [phone] Aggie Gallardo SPRINKLING SYSTEM INSTALLER-ICE GUARD TESTER Unavailable Jer Rizo MD Unavailable [phone] Madyson Figueroa RN Unavailable [phone] Braeden Dunham LPC Unavailable Unavailable Encounter Details [...] and Family Not on file 12/04/2023 Attends Jain Services Not on file 12/03 Do you belong to any clubs o r organizations such as scientology groups, unions, fraternal or athletic groups, or [...] Recorded Patient Health Questionnaire-2 Score 0 10/23/2024 [facility] - Occupational Stress [...] any time in the past 12 m [facility], were you homeless or living in [...] Upcoming Encounters Date Type Department Care Team ([facility] st Contact Info) Description 12/17/2024 10:30 AM EDT Office Visit [facility] [address] JOSE ARMANDO 110 [place] [address] Erin Tariq PA [address] Jose Armando 110 [place] [address] 12/23/2024 1:00 PM EDT Office Visit [facility] [address] JOSE ARMANDO 160 [place] [address] Aggie Gallardo, SPRINKLING SYSTEM INSTALLER-ICE GUARD TESTER [address] Jose Armando 160 [place] [address] 03/06/2025 10:40 AM EDT Office Visit [facility] [address] JOSE ARMANDO 120 [place] [address] Tip Morillo DPYared 3006 [facility] 5 [place] [address] documented as of this encounter Goals Goal [...] documented as of this encounter Care Teams Production Operations Engineer Relationship Specialty Start Date End Date Jer Rizo MD [address] [facility] 110 [place] [address] PCP - General Internal Medicine 01/03/23 Jer Rizo MD [address] [facility] 110 [place] [address] PCP - Sari HERNANDEZ 05/29/24 Aggie Gallardo APRN-ICE GUARD TESTER [address] [facility] 160 [place] [address] Nurse Practitioner Psychiatry 06/13/24 Madyson Figueroa, BETY [address] [facility] 230 [place] [address] Registered Nurse Family Medicine 08/14/24 Braeden Dunham LPC Therapist Behavioral Health 11/25/24 documented as of this encounter
--- OUTSIDE RECORDS SUMMARY | 2024-12-12 10:50 | XMS_ITS | Encounter Summary ---
Author Organization [facility] Address [address] [facility] [place] [address] Care Team Providers Care Pocketbook Maker Name Role Phone Jer Rizo MD Primary Care Provider [phone] Jer Rizo MD Unavailable [phone] Aggie Gallardo CYLINDER INSPECTOR AND TESTER-VIDEO GAME ENGINEER Unavailable Jer Rizo MD Unavailable [phone] Madyson Figueroa RN Unavailable [phone] Braeden Dunham LPC Unavailable Unavailable Encounter Details Date Type Department Care Team (Late st Contact Info) Description 02/13/2024 Abstract [facility] 112 [facility] 110 [place] [id number] Jer Rizo MD 112 [facility] 110 [place] [address] Social History Tobacco Use Types [...] any clubs o r organizations such as methodist groups, unions, fraternal or athletic groups, or [...] Recorded Patient Health Questionnaire-2 Score 2 12/06/2023 [facility] of Occupat ional [facility] - Occupational Stress Questionnaire Answer Date [...] time in the past 12 m [facility], were you homeless or living in a jail (including now)? No 12/04/2023 Comments Unknown Sex [...] FM [address] JOSE ARMANDO 110 [place] [address] Erin Tariq, PA [address] Jose Armando 110 [place] [address] 12/23/2024 1:00 PM EDT Office Visit [facility] [address] JOSE ARMANDO 160 [place] [address] Aggie Gallardo, CYLINDER INSPECTOR AND TESTER-VIDEO GAME ENGINEER [address] Jose Armando 160 [place] [address] 03/06/2025 10:40 AM EDT Office Visit [facility] [address] JOSE ARMANDO 120 [place] [address] Tip Morillo DPYared 3006 [facility] 5 [place] [address] documented as of this encounter [...] documented as of this encounter Care Teams Pocketbook Maker Relationship Specialty Start Date End Date Jer Rizo MD [address] [facility] 110 [place] [address] PCP - General Internal Medicine 01/03/23 Jer Rizo MD [address] [facility] 110 [place] [address] PCP - Devoted 05/29/23 05/28/24 Jer Rizo MD [address] [facility] 110 [place] [address] PCP - Sari HERNANDEZ 05/29/24 Aggie Gallardo APRN-VIDEO GAME ENGINEER [address] [facility] 160 [place] [address] Nurse Practitioner Psychiatry 06/13/24 Madyson Figueroa RN [address] Jose Armando 230 [place] [address] Registered Nurse Family Medicine 08/14/24 Braeden Dunham LPC Therapist Behavioral Health 11/25/24 documented as of this encounter
--- OUTSIDE RECORDS SUMMARY | 2024-12-12 10:50 | XMS_ITS | Encounter Summary ---
Author Organization [facility] Address [address] [facility] [place] [address] Care Team Providers Care Trade Embalmer Name Role Phone Jer Rizo MD Primary Care Provider [phone] Jer Rizo MD Unavailable [phone] Aggie Gallardo CUB REPORTER-SCIENCE TECHNICIAN Unavailable Jer Rizo MD Unavailable [phone] Madyson Figueroa RN Unavailable [phone] Braeden Dunham LPC Unavailable Unavailable Encounter Details Date Type Department Care Team (Late st Contact Info) Description 12/26/2023 Abstract [facility] 112 [facility] 110 [place] [address] Jer Rizo MD 112 [facility] 110 [place] [address] Social History Tobacco Use Types [...] any clubs o r organizations such as jehovah's witness groups, unions, fraternal or athletic groups, or [...] Recorded Patient Health Questionnaire-2 Score 2 12/06/2023 [facility] of Occupat ional [facility] - Occupational Stress Questionnaire Answer Date [...] any time in the past 12 m [facility], were you homeless or living in a nursing home (including now)? No 12/04/2023 Comments Unknown Sex [...] FM [address] JOSE ARMANDO 110 [place] [address] Erin Tariq, PA [address] Jose Armando 110 [place] [address] 12/23/2024 1:00 PM EDT Office Visit [facility] [address] JOSE ARMANDO 160 [place] [address] Aggie Gallardo, CUB REPORTER-SCIENCE TECHNICIAN [address] Jose Armando 160 [place] [address] 03/06/2025 10:40 AM EDT Office Visit [facility]OD[facility] [address] JOSE ARMANDO 120 [place] [address] Tip Morillo DPYared 3006 [facility] 5 [place] [address] documented as of this encounter [...] documented as of this encounter Care Teams Trade Embalmer Relationship Specialty Start Date End Date Jer Rizo MD [address] [facility] 110 [place] [address] PCP - General Internal Medicine 01/03/23 Jer Rizo MD [address] [facility] 110 [place] [address] PCP - Devoted 05/29/23 05/28/24 Jer Rizo MD [address] [facility] 110 [place] [address] PCP - Sari HERNANDEZ 05/29/24 Aggie Gallardo APRN-SCIENCE TECHNICIAN [address] [facility] 160 [place] [address] Nurse Practitioner Psychiatry 06/13/24 Madyson Figueroa RN [address] Jose Armando 230 [place] [address] Registered Nurse Family Medicine 08/14/24 Braeden Dunham LPC Therapist Behavioral Health 11/25/24 documented as of this encounter
--- OUTSIDE RECORDS SUMMARY | 2024-12-12 10:50 | XMS_ITS | Encounter Summary ---
Author Organization [facility] Address [address] [facility] [place] [address] Care Team Providers Care Stunt Driver Name Role Phone Jer Rizo MD Primary Care Provider [phone] Aggie Gallardo TRANSCRIPTION COORDINATOR-RF MICROWAVE ENGINEER Unavailable Jer Rizo MD Unavailable [phone] Madyson Figueroa RN Unavailable [phone] Braeden Dunham LPC Unavailable Unavailable Reason for Visit * Reason Onset Date Comments Med Refill 12/05/2024 Encounter Details Date Type Department Care Team (Late st Contact Info) Description 12/05/2024 Telephone [facility] 112 [facility] 110 [place] [address] Jer Rizo MD 112 [facility] 110 [place] [address] Med Refill Social History Tobacco [...] any clubs o r organizations such as spiritism groups, unions, fraternal or athletic groups, or [...] Recorded Patient Health Questionnaire-2 Score 0 10/23/2024 [facility] of Occupat ional Health - Occupational Stress [...] Visit [facility] FM [address] [facility] 110 [place] [address] Erin Tariq PA [address] Jose Armando 110 [place] [address] 12/23/2024 1:00 PM EDT Office Visit [facility] [address] [facility] 160 [place] [address] Aggie Gallardo, TRANSCRIPTION COORDINATOR-RF MICROWAVE ENGINEER [address] Jose Armando 160 [place] [address] 03/06/2025 10:40 AM EDT Office Visit [facility] PODIATRY [address] JOSE ARMANDO 120 [place] [address] Tip Morillo DPM 3006 [facility] 5 [place] [address] documented as of this encounter Goals Goal [...] documented as of this encounter Care Teams Stunt Driver Relationship Specialty Start Date End Date Jer Rizo MD [address] [facility] 110 [place] [address] PCP - General Internal Medicine 01/03/23 Jer Rizo MD [address] [facility] 110 [place] [address] PCP - Sari HERNANDEZ 05/29/24 Aggie Gallardo, TRANSCRIPTION COORDINATOR-RF MICROWAVE ENGINEER [address] Jose Armando 160 [place] [address] Nurse Practitioner Psychiatry 06/13/24 Madyson Figueroa, BETY [address] [place] [address] Registered Nurse Family Medicine 08/14/24 Braeden Dunham LPC Therapist Behavioral Health 11/25/24 documented as of this encounter
--- OUTSIDE RECORDS SUMMARY | 2024-12-12 10:50 | XMS_ITS | Encounter Summary ---
Author Organization [facility] Address [address] [facility] [place] [address] Care Team Providers Care Eyeglass Frames Polisher Name Role Phone Jer Rizo MD Primary Care Provider [phone] Aggie Gallardo SHRINKER-ELECTRICAL TECH Unavailable Jer Rizo MD Unavailable [phone] Madyson Figueroa RN Unavailable [phone] Braeden Dunham LPC Unavailable Unavailable Reason for Visit * Reason Comments Med Refill Encounter Details Date Type Department Care Team (Late st Contact Info) Description 07/07/2024 Refill [facility] [address] [facility] 160 [place] [address] Aggie Gallardo, SHRINKER-ELECTRICAL TECH 112 [facility] 160 [place], [place] [address] Bipolar affective disorder, currently depressed, moderate (HCC) [...] and Family Not on file 12/04/2023 Attends Caodaism Services Not on file 12/03 Do you [...] Recorded Patient Health Questionnaire-2 Score 3 05/15/2024 [facility] - Occupational Stress Questionnaire Answer Date [...] any time in the past 12 m [facility], were you homeless or living in [...] Visit [facility] FM [address] [facility] 110 [place] [address] Erin Tariq PA [address] [facility] 110 [place] [address] 12/23/2024 1:00 PM EDT Office Visit [facility] BH [address] [facility] 160 [place] [address] Daily-Aggie Seymour, SHRINKER-ELECTRICAL TECH [address] [facility] 160 [place] [address] 03/06/2025 10:40 AM EDT Office Visit [facility] POD[facility]ATRY [address] JOSE ARMANDO 120 [place] [address] Tip Morillo DPM 3006 [facility] 5 [place] [address] documented as of this encounter Goals Goal [...] documented as of this encounter Care Teams Eyeglass Frames Polisher Relationship Specialty Start Date End Date Jer Rizo MD [address] Jose Armando 110 [place] [address] PCP - General Internal Medicine 01/03/23 Jer Rizo MD [address] Jose Armando 110 [place] [address] PCP - Sari HERNANDEZ 05/29/24 Aggie [place] APRN-ELECTRICAL TECH [address] Jose Armando 160 [place] [address] Nurse Practitioner Psychiatry 06/13/24 Madyson Figueroa, BETY [address] Jose Armando [address] [place] [address] Registered Nurse Family Medicine 08/14/24 Braeden Dunham LPC Therapist Behavioral Health 11/25/24 documented as of this encounter
--- OUTSIDE RECORDS SUMMARY | 2024-12-12 10:50 | XMS_ITS | Encounter Summary ---
Author Organization [facility] Address [address] [facility] [place] [address] Care Team Providers Care Emc Storage Architect Name Role Phone Jer Rizo MD Primary Care Provider [phone] Aggie Gallardo CENTRAL OFFICE OPERATOR-LIFE SCIENCE TECHNICIAN Unavailable Jer Rizo MD Unavailable [phone] Madyson Figueroa RN Unavailable [phone] Braeden Dunham LPC Unavailable Unavailable Encounter Details Date Type Department Care Team (Late st Contact Info) Description 11/28/2024 Patient Outreach [facility] [address] [place] [address] Madyson Figueroa, RN [address] [email or web address] [address] Jose Armando 230 [place] [address] Social History Tobacco Use Types Packs/Day Years [...] Recorded Patient Health Questionnaire-2 Score 0 10/23/2024 [facility] of Occupat ional Health - Occupational [...] any time in the past 12 m [facility], were you homeless or living [...] PAP for several medications. Finally approved through [employer] for Ozempic, will not be able to [...] [address] JOSE ARMANDO [address] [place] [address] Erin Tariq, PA [address] Jose Armando 110 [place] [address] 12/23/2024 1:00 PM EDT Office Visit [facility] [address] JOSE ARMANDO 160 [place] [address] Aggie Gallardo, CENTRAL OFFICE OPERATOR-LIFE SCIENCE TECHNICIAN [address] Jose Armando 160 [place] [address] 03/06/2025 10:40 AM EDT Office Visit [facility] PODIATRY [address] JOSE ARMANDO 120 [place] [address] Tip Morillo, MOI 3006 [facility] 5 [place] [address] documented as of this encounter [...] documented as of this encounter Care Teams Emc Storage Architect Relationship Specialty Start Date End Date Jer Rizo MD [address] Jose Armando 110 [place] [address] PCP - General Internal Medicine 01/03/23 Jer Rizo MD [address] [facility] 110 [place] [address] PCP - Sari HERNANDEZ 05/29/24 Aggie Gallardo, CENTRAL OFFICE OPERATOR-LIFE SCIENCE TECHNICIAN [address] [facility] 160 [place] [address] Nurse Practitioner Psychiatry 06/13/24 Madyson Figueroa, RN [address] [facility] 230 [place] [address] Registered Nurse Family Medicine 08/14/24 Braeden Dunham LPC Therapist Behavioral Health 11/25/24 documented as of this encounter
--- OUTSIDE RECORDS SUMMARY | 2024-12-12 10:50 | XMS_ITS | Encounter Summary ---
Author Organization [facility] Address [address] [facility] [place] [address] Care Team Providers Care Collection Analyst Name Role Phone Jer Rizo MD Primary Care Provider [phone] Jer Rizo MD Unavailable [phone] Aggie Gallardo ELECTRON MICROPROBE OPERATOR-ANNEALER HELPER Unavailable Jer Rizo MD Unavailable [phone] Madyson Figueroa RN Unavailable [phone] Braeden Dunham LPC Unavailable Unavailable Encounter Details Date Type Department Care Team (Late st Contact Info) Description 12/25/2023 Abstract [facility] 112 [facility] 110 [place] [id number] Jer Rizo MD 112 [facility] 110 [place] [address] Social History Tobacco Use Types [...] any clubs o r organizations such as adventism groups, unions, fraternal or athletic groups, or [...] Patient Health Questionnaire-2 Score 2 12/06/2023 [facility] of Occupat ional [facility] - Occupational Stress Questionnaire Answer [...] any time in the past 12 m [facility], were you homeless or living in a [...] FM [address] JOSE ARMANDO 110 [place] [address] Erin Tariq, PA [address] Jose Armando 110 [place] [address] 12/23/2024 1:00 PM EDT Office Visit [facility] [address] JOSE ARMANDO 160 [place] [address] Aggie Gallardo, ELECTRON MICROPROBE OPERATOR-ANNEALER HELPER [address] Jose Armando 160 [place] [address] 03/06/2025 10:40 AM EDT Office Visit [facility] POD[facility]RY [address] JOSE ARMANDO 120 [place] [address] Tip Morillo DPYared 3006 [facility] 5 [place] [address] documented as of this encounter [...] documented as of this encounter Care Teams Collection Analyst Relationship Specialty Start Date End Date Jer Rizo MD [address] [facility] 110 [place] [address] PCP - General Internal Medicine 01/03/23 Jer Rizo MD [address] [facility] 110 [place] [address] PCP - Devoted 05/29/23 05/28/24 Jer Rizo MD [address] [facility] 110 [place] [address] PCP - Sari HERNANEDZ 05/29/24 Aggie Gallardo APRN-ANNEALER HELPER [address] [facility] 160 [place] [address] Nurse Practitioner Psychiatry 06/13/24 Madyson Figueroa RN [address] Jose Armando 230 [place] [address] Registered Nurse Family Medicine 08/14/24 Braeden Dunham LPC Therapist Behavioral Health 11/25/24 documented as of this encounter
--- OUTSIDE RECORDS SUMMARY | 2024-12-12 10:50 | XMS_ITS | Encounter Summary ---
Author Organization [facility] Address [address] [place] [address] Phone Care Team Providers Care Manager Of Project Management Name Role Phone Unavailable Primary Care Provider Unavailabl e Encounter Details Date Type Department Care Team (Late st Contact Info) Description 10/17/2004 Orders Only [facility] [address] [place] [address] Scanning, Generic Provider Social History [...]
--- OUTSIDE RECORDS SUMMARY | 2024-12-12 10:50 | XMS_ITS | Encounter Summary ---
Author Organization [facility] Address [address] [facility] [place] [address] Care Team Providers Care Moss Picker Name Role Phone Jer Rizo MD Primary Care Provider [phone] Jer Rizo MD Unavailable [phone] Aggie Gallardo MOLD REPAIRER-HOME MAKER Unavailable Jer Rizo MD Unavailable [phone] Madyson Figueroa RN Unavailable [phone] Braeden Dunham LPC Unavailable Unavailable Encounter Details Date Type Department Care Team (Late st Contact Info) Description 04/30/2024 Abstract [facility] 112 [facility] 110 [place] [id number] Jer Rizo MD 112 [facility] 110 [place] [address] Social History Tobacco Use Types [...] Recorded Patient Health Questionnaire-2 Score 4 04/17/2024 [facility] of Occupat ional [facility] - Occupational Stress Questionnaire Answer [...] [address] JOSE ARMANDO 110 [place] [address] Erin Tariq PA [address] Jose Armando 110 [place] [address] 12/23/2024 1:00 PM EDT Office Visit [facility] [address] JOSE ARMANDO [address] [place] [address] Aggie Gallardo, MOLD REPAIRER-HOME MAKER [address] Jose Armando 160 [place] [address] 03/06/2025 10:40 AM EDT Office Visit [facility] [address] JOSE ARMANDO [address] [place] [address] Tip Morillo DPM 3006 [facility] 5 [place] [address] documented as of this encounter Goals Goal [...] documented as of this encounter Care Teams Moss Picker Relationship Specialty Start Date End Date Jer Rizo MD [address] Jose Armando 110 [place] [address] PCP - General Internal Medicine 01/03/23 Jer Rizo MD [address] Jose Armando 110 [place] [address] PCP - Devoted 05/29/23 05/28/24 Jer Rizo MD [address] Jose Armando 110 [place] [address] PCP - Sari HERNANDEZ 05/29/24 Aggie Gallardo APRN-HOME MAKER [address] Jose Armando 160 [place] [address] Nurse Practitioner Psychiatry 06/13/24 Madyson Figueroa, BETY [address] [facility] 230 [place] [address] Registered Nurse Family Medicine 08/14/24 Braeden Dunham LPC Therapist Behavioral Health 11/25/24 documented as of this encounter
--- OUTSIDE RECORDS SUMMARY | 2024-12-12 10:50 | XMS_ITS | Encounter Summary ---
Author Organization [facility] Address [address] [facility] [place] [address] Care Team Providers Care Web Page Developer Name Role Phone Jer Rizo MD Primary Care Provider [phone] Jer Rizo MD Unavailable [phone] Aggie Gallardo POCKETED SPRING MACHINE OPERATOR-HATCHERY MAN Unavailable Jer Rizo MD Unavailable [phone] Madyson Figueroa RN Unavailable [phone] Braeden Dunham LPC Unavailable Unavailable Encounter Details Date Type Department Care Team (Late st Contact Info) Description 02/22/2024 Abstract [facility] 112 [facility] 110 [place] [address] Jer Rizo MD 112 [facility] 110 [place] [address] Social History Tobacco Use Types [...] Recorded Patient Health Questionnaire-2 Score 2 12/06/2023 [facility] of Occupat ional [facility] - Occupational Stress Questionnaire Answer Date Recorded [...] any time in the past 12 m [facility], were you homeless or living in a prison (including now)? No 12/04/2023 Comments Unknown Sex [...] FM [address] JOSE ARMANDO 110 [place] [address] Erin Tariq, PA [address] Jose Armando 110 [place] [address] 12/23/2024 1:00 PM EDT Office Visit [facility] [address] JOSE ARMANDO 160 [place] [address] Aggie Gallardo, POCKETED SPRING MACHINE OPERATOR-HATCHERY MAN [address] Jose Armando 160 [place] [address] 03/06/2025 10:40 AM EDT Office Visit [facility] [address] JOSE ARMANDO 120 [place] [address] Tip Morillo DPYared 3006 [facility] 5 [place] [address] documented as of this encounter [...] documented as of this encounter Care Teams Web Page Developer Relationship Specialty Start Date End Date Jer Rizo MD [address] [facility] 110 [place] [address] PCP - General Internal Medicine 01/03/23 Jer Rizo MD [address] [facility] 110 [place] [address] PCP - Devoted 05/29/23 05/28/24 Jer Rizo MD [address] [facility] 110 [place] [address] PCP - Sari HERNANDEZ 05/29/24 Aggie Gallardo APRN-HATCHERY MAN [address] [facility] 160 [place] [address] Nurse Practitioner Psychiatry 06/13/24 Madyson Figueroa RN [address] Jose Armando 230 [place] [address] Registered Nurse Family Medicine 08/14/24 Braeden Dunham LPC Therapist Behavioral Health 11/25/24 documented as of this encounter
--- OUTSIDE RECORDS SUMMARY | 2024-12-12 10:50 | XMS_ITS | Encounter Summary ---
Author Organization [facility] Address [address] [facility] [place] [address] Care Team Providers Care Spiral Binder Name Role Phone Jer Rizo MD Primary Care Provider [phone] Jer Rizo MD Unavailable [phone] Aggie Gallardo SUPERVISOR CHASSIS ASSEMBLY-ANESTHESIA ASSOCIATE Unavailable Jer Rizo MD Unavailable [phone] Madyson Figueroa RN Unavailable [phone] Braeden Dunham LPC Unavailable Unavailable Encounter Details Date Type Department Care Team (Late st Contact Info) Description 12/12/2023 Abstract [facility] 112 [facility] 110 [place] [phone] Jer Rizo MD 112 [facility] 110 [place] [address] Social History Tobacco Use Types [...] and Family Not on file 12/04/2023 Attends [employer] Not on file 12/03 Do you [...] Recorded Patient Health Questionnaire-2 Score 2 12/06/2023 [facility] of Occupat ional [facility] - Occupational Stress Questionnaire Answer Date [...] any time in the past 12 m [facility], were you homeless or living in a retirement (including now)? No 12/04/2023 Comments Unknown Sex [...] FM [address] JOSE ARMANDO 110 [place] [address] Erin Tariq, PA [address] Jose Armando 110 [place] [address] 12/23/2024 1:00 PM EDT Office Visit [facility] [address] JOSE ARMANDO 160 [place] [address] Aggie Gallardo, SUPERVISOR CHASSIS ASSEMBLY-ANESTHESIA ASSOCIATE [address] Jose Armando 160 [place] [address] 03/06/2025 10:40 AM EDT Office Visit [facility]OD[facility] [address] JOSE ARMANDO 120 [place] [address] Tip Morillo DPYared 3006 [facility] 5 [place] [address] documented as of this encounter [...] documented as of this encounter Care Teams Spiral Binder Relationship Specialty Start Date End Date Jer Rizo MD [address] [facility] 110 [place] [address] PCP - General Internal Medicine 01/03/23 Jer Rizo MD [address] [facility] 110 [place] [address] PCP - Devoted 05/29/23 05/28/24 Jer Rizo MD [address] [facility] 110 [place] [address] PCP - Sari HERNANDEZ 05/29/24 Aggie Gallardo APRN-ANESTHESIA ASSOCIATE [address] [facility] 160 [place] [address] Nurse Practitioner Psychiatry 06/13/24 Madyson Figueroa RN [address] Jose Armando 230 [place] [address] Registered Nurse Family Medicine 08/14/24 Braeden Dunham LPC Therapist Behavioral Health 11/25/24 documented as of this encounter
--- OUTSIDE RECORDS SUMMARY | 2024-12-12 10:50 | XMS_ITS | Encounter Summary ---
Author Organization [facility] Address [address] [facility] [place] [address] Care Team Providers Care Home Care Physical Therapist Name Role Phone eJr Rizo MD Primary Care Provider [phone] Jer Rizo MD Unavailable [phone] Aggie Gallardo SENIOR C SOFTWARE ENGINEER-CERTIFIED ACTIVITIES DIRECTOR Unavailable Jer Rizo MD Unavailable [phone] Madyson Figueroa RN Unavailable [phone] Braeden Dunham LPC Unavailable Unavailable Encounter Details Date Type Department Care Team (Late st Contact Info) Description 04/30/2024 Abstract [facility] 112 [facility] 110 [place] [address] Jer Rizo MD 112 [facility] 110 [place] [address] Social History Tobacco Use Types [...] Recorded Patient Health Questionnaire-2 Score 4 04/17/2024 [facility] of Occupat ional [facility] - Occupational Stress Questionnaire Answer [...] any time in the past 12 m [facility], were you homeless or [...] [address] JOSE ARMANDO 110 [place] [address] Erin Tariq PA [address] Jose Armando 110 [place] [address] 12/23/2024 1:00 PM EDT Office Visit [facility] [address] JOSE ARMANDO 160 [place] [address] Aggie Gallardo, SENIOR C SOFTWARE ENGINEER-CERTIFIED ACTIVITIES DIRECTOR [address] Jose Armando 160 [place] [address] 03/06/2025 10:40 AM EDT Office Visit [facility] [address] JOSE ARMANDO 120 [place] [address] Tip Morillo DPM 3006 [facility] 5 [place] [address] documented as of this encounter Goals Goal Patient Goal Type Associated Problems Recent Progress Patient-Stated? Author Help patient manage antidepressant medication Care Plan Patient on antidepressant monitoring plan Farncia Bryant MA documented as of this encounter Visit Diagnoses Not on filedocumented in this encounter Additional Health Concerns Active Problems Noted Date Diagnosed Date Patient on antidepressant monitoring plan 2023 Assessment Noted Time PHQ-9 Depression Total Score: 23 04/17/ 024 1:56 PM EST documented as of this encounter Care Teams Home Care Physical Therapist Relationship Specialty Start Date End Date Jer Rizo MD [address] Jose Armando 110 [place] [address] PCP - General Internal Medicine 01/03/23 Jer Rizo MD [address] Jose Armando 110 [place] [address] PCP - Devoted 05/29/23 05/28/24 Jer Rizo MD [address] Jose Armando 110 [place] [address] PCP - Sari HERNANDEZ 05/29/24 Aggie Gallardo APRN-CERTIFIED ACTIVITIES DIRECTOR [address] Jose Armando 160 [place] [address] Nurse Practitioner Psychiatry 06/13/24 Madyson Figueroa, BEYT [address] [facility] 230 [place] [address] Registered Nurse Family Medicine 08/14/24 Braeden Dunham LPC Therapist Behavioral Health 11/25/24 documented as of this encounter
--- OUTSIDE RECORDS SUMMARY | 2024-12-12 10:50 | XMS_ITS | Encounter Summary ---
Author Organization [facility] Address [address] [place] [address] Phone Care Team Providers Care Packing Room Inspector Name Role Phone Unavailable Primary Care Provider Unavailabl e Encounter Details Date Type Department Care Team (Late st Contact Info) Description 10/16/2024 Scanned Document [facility] [address] [place] [address] Scanning, Generic Provider Social History [...]
--- OUTSIDE RECORDS SUMMARY | 2024-12-12 10:50 | XMS_ITS | Encounter Summary ---
Author Organization [facility] Address [address] [facility] [place] [address] Care Team Providers Care Municipal Services Manager Name Role Phone Jer Rizo MD Primary Care Provider [phone] Jer Rizo MD Unavailable [phone] Aggie Gallardo JINRIKSHA DRIVER-AUTOMOTIVE SERVICE PORTER Unavailable Jer Rizo MD Unavailable [phone] Madyson Figueroa RN Unavailable [phone] Braeden Dunham LPC Unavailable Unavailable Encounter Details Date Type Department Care Team (Late st Contact Info) Description 03/25/2024 Abstract [facility] [address] [facility] 110 [place] [id number] Jer Rizo MD 112 [facility] 110 [place] [address] Social History Tobacco Use Types [...] any clubs o r organizations such as pentecostal groups, unions, fraternal or athletic groups, or [...] 12/06/2023 [facility] of Occupat ional [facility] - Occupational Stress Questionnaire Answer Date [...] [address] JOSE ARMANDO 110 [place] [address] Erin Tariq PA [address] Jose Armando 110 [place] [address] 12/23/2024 1:00 PM EDT Office Visit [facility] [address] JOSE ARMANDO 160 [place] [address] Aggie Gallardo, JINRIKSHA DRIVER-AUTOMOTIVE SERVICE PORTER [address] Jose Armando 160 [place] [address] 03/06/2025 10:40 AM EDT Office Visit [facility]OD[facility] [address] JOSE ARMANDO [address] [place] [address] Tip Morillo DPM 3006 [facility] 5 [place] [address] documented as of this encounter Goals Goal [...] documented as of this encounter Care Teams Municipal Services Manager Relationship Specialty Start Date End Date Jer Rizo MD [address] Jose Armando 110 [place] [address] PCP - General Internal Medicine 01/03/23 Jer Rizo MD [address] Jose Armando 110 [place] [address] PCP - Devoted 05/29/23 05/28/24 Jer Rizo MD [address] Jose Armando 110 [place] [address] PCP - Sari HERNANDEZ 05/29/24 Aggie Gallardo APRN-AUTOMOTIVE SERVICE PORTER [address] Jose Armando 160 [place] [address] Nurse Practitioner Psychiatry 06/13/24 Madyson Figueroa, BETY [address] Jose Armando 230 [place] [address] Registered Nurse Family Medicine 08/14/24 Braeden Dunham LPC Therapist Behavioral Health 11/25/24 documented as of this encounter
--- OUTSIDE RECORDS SUMMARY | 2024-12-12 10:50 | XMS_ITS | Encounter Summary ---
Author Organization [facility] Address [address] [facility] [place] [address] Care Team Providers Care Caustic Room Operator Name Role Phone Jer Rizo MD Primary Care Provider [phone] Aggie Gallardo CLASSIFICATION ANALYST-ASSEMBLY MACHINE TENDER Unavailable Jer Rizo MD Unavailable [phone] Madyson Figueroa RN Unavailable [phone] Braeden Dunham LPC Unavailable Unavailable Reason for Visit * Reason Comments Med Change Request Encounter Details Date Type Department Care Team (Late st Contact Info) Description 06/06/2024 Refill [facility] [address] [facility] 160 [place] [address] Aggie Gallardo, CLASSIFICATION ANALYST-ASSEMBLY MACHINE TENDER 112 [facility] 160 [place], [place] [address] Bipolar affective disorder, currently depressed, moderate (HCC) [...] Recorded Patient Health Questionnaire-2 Score 3 05/15/2024 [facility] - Occupational Stress Questionnaire Answer [...] any time in the past 12 m [facility], were you homeless or living in [...] Visit [facility] FM [address] [facility] 110 [place] [address] Erin Tariq PA [address] [facility] 110 [place] [address] 12/23/2024 1:00 PM EDT Office Visit [facility] [address] [facility] 160 [place] [address] Daily-Aggie Seymour, CLASSIFICATION ANALYST-ASSEMBLY MACHINE TENDER [address] [facility] 160 [place] [address] 03/06/2025 10:40 AM EDT Office Visit [facility] [address] JOSE ARMANDO 120 [place] [address] Tip Morillo DPM 3006 [facility] 5 [place] [address] documented as of this encounter Goals Goal [...] documented as of this encounter Care Teams Caustic Room Operator Relationship Specialty Start Date End Date Jer Rizo MD [address] Jose Armando 110 [place] [address] PCP - General Internal Medicine 01/03/23 Jer Rizo MD [address] Jose Armando 110 [place] [address] PCP - Sari HERNANDEZ 05/29/24 Aggie Gallardo APRN-ASSEMBLY MACHINE TENDER [address] Jose Armando 160 [place] [address] Nurse Practitioner Psychiatry 06/13/24 Madyson Figueroa, BETY [address] Jose Armando [address] [place] [address] Registered Nurse Family Medicine 08/14/24 Braeden Dunham LPC Therapist Behavioral Health 11/25/24 documented as of this encounter
--- OUTSIDE RECORDS SUMMARY | 2024-12-12 10:50 | XMS_ITS | Encounter Summary ---
Author Organization [facility] Address [address] [place] [address] Care Team Providers Care Timber Packer Name Role Phone Jer Rizo MD Primary Care Provider [phone] Jer Rizo MD Unavailable [phone] Aggie Gallardo GAME FARM HELPER-MIX HOUSE OPERATOR Unavailable Jer Rizo MD Unavailable [phone] Madyson Figueroa RN Unavailable [phone] Braeden Dunham LPC Unavailable Unavailable Encounter Details Date Type Department Care Team (Late st Contact Info) Description 02/13/2024 Abstract [facility] 112 [facility] 110 [place] [address] Jer Rizo MD 112 [facility] 110 [place] [address] Social History Tobacco Use Types [...] any clubs o r organizations such as alevism groups, unions, fraternal or athletic groups, or [...] Recorded Patient Health Questionnaire-2 Score 2 12/06/2023 [facility] of Occupat ional [facility] - Occupational Stress [...] in the past 12 m [facility], were you homeless or [...] FM [address] JOSE ARMANDO [address] [place] [address] Erin Tariq, PA [address] Jose Armando 110 [place] [address] 12/23/2024 1:00 PM EDT Office Visit [facility] [address] JOSE ARMANDO 160 [place] [address] Aggie Gallardo, GAME FARM HELPER-MIX HOUSE OPERATOR [address] Jose Armando 160 [place] [address] 03/06/2025 10:40 AM EDT Office Visit [facility] [address] JOSE ARMANDO 120 [place] [address] Tip Morillo DPYared 3006 [facility] 5 [place] [address] documented as of this encounter [...] documented as of this encounter Care Teams Timber Packer Relationship Specialty Start Date End Date Jer Rizo MD [address] [facility] 110 [place] [address] PCP - General Internal Medicine 01/03/23 Jer Rizo MD [address] [facility] 110 [place] [address] PCP - Devoted 05/29/23 05/28/24 Jer Rizo MD [address] [facility] 110 [place] [address] PCP - Sari HERNANDEZ 05/29/24 Aggie Gallardo APRN-MIX HOUSE OPERATOR [address] [facility] 160 [place] [address] Nurse Practitioner Psychiatry 06/13/24 Madyson Figueroa RN [address] Jose Armando 230 [place] [address] Registered Nurse Family Medicine 08/14/24 Braeden Dunham LPC Therapist Behavioral Health 11/25/24 documented as of this encounter
--- OUTSIDE RECORDS SUMMARY | 2024-12-12 10:50 | XMS_ITS | Clinical Summary ---
Author Organization [facility] Address [address] [facility] [place] [address] Care Team Providers Care Visitor Services Information Assistant Name Role Phone Jer Rizo MD Primary Care Provider [phone] Aggie Gallardo INSULATION BLOWER-STOCK PATCHER Unavailable Jer Rizo MD Unavailable [phone] Madyson Figueroa RN Unavailable [phone] Braeden Dunham LPC Unavailable Unavailable Allergies Active [...] diabetes mellitus with autonomic neuropathy, unspecified whether long-term insulin use (HCC) TAKE 1 TABLET TWICE [...] ns:Chronic obstructive pulmonary disease, unspecified COPD type ([facility]) Inhale 2 puffs in the morning and 2 puffs before bedtime. Rinse mouth after each use. 10.7 g 5 Active Semaglutide,0.25 or 0.5MG/DOS, (Ozempic, 0.25 or 0.5 MG/DOSE,) 2 MG/3ML solution pen-injectorIndi cations:Type 2 diabetes mellitus with other specified complication, without long-term current use of insulin ([facility]),Morbid (severe) obesity due to excess calories ([facility]) Inject 0.5 mg under the skin 1 (one) time per week Active Multiple Vitamin (MULTIVITAMIN ADULT PO) Take 1 tablet by mouth Daily Active traZODone (Desyrel) 100 MG tabletIndication s:Bipolar affective disorder, currently depressed, moderate ([facility]) Take 1.5 tablets (150 mg) by mouth at bedtime Active Continuous Glucose Sensor (FreeStyle Gomez 3 Plus Sensor) miscIndications: Type 2 diabetes mellitus with other specified complication, with long-term current use of insulin ([facility]) 1 each Every 15 Days 6 each 3 025 2025 Active Continuous Glucose Dispute Resolution Analyst (FreeStyle Gomez 3 Norris) deviceIndication s:Type 2 diabetes mellitus with other specified complication, with long-term current use of insulin ([facility]) 1 Device continuously 1 each 025 Active furosemide (Lasix) 40 MG tabletIndication s:Localized edema TAKE 1 TABLET BY MOUTH TWICE A DAY 180 tablet 4 025 Active metoprolol tartrate (Lopressor) 25 MG tabletIndication s:Essential hypertension, benign TAKE 1 TABLET BY MOUTH IN THE MORNING AND BEFORE BEDTIME 180 tablet 4 025 Active escitalopram (Lexapro) 20 MG tabletIndication s:Bipolar affective disorder, currently depressed, moderate ([facility]) Take 1 tablet (20 mg) by mouth [...] complication, without long-term current use of insulin ([facility]) Inject 20 Units under the skin in the morning. 9 mL 3 Active Insulin Pen Needle (pen needle 10/11 ) 31G X 8 mm miscIndications: Type 2 diabetes mellitus with other specified complication, without long-term current use of insulin ([facility]) Inject 1 each under the skin Daily Use as instructed with Lantus SoloStar 100 each 3 025 Active Lancets 30G miscIndications: Type 2 diabetes mellitus with other specified complication, without long-term current use of insulin ([facility]) 1 each Daily Check blood glucose daily. Active Lancets 30G miscIndications: Type 2 diabetes mellitus with other specified complication, without long-term current use of insulin ([facility]) 1 each in the morning. Check blood [...] alveolar hypoventilation Atherosclerotic 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[place] coronary artery without angina pectoris 01/02/2023 Mixed [...] Encounters Date Type Department Care Team Description 12/10/2024 Clinisync Result Encounter [facility] External Department Unsolicited Provider, Generic External Data 12/05/2024 11:10 AM EDT Office Visit [facility] [address] [facility] [address] [place] [address] Tip Morillo, DPYared Xerosis cutis (Primary Dx); Diabetes 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, unspecified whether long-term insulin use (HCC); Pain due to onychomycosis of toenails of both feet; Venous insufficiency 12/05/2024 Telephone [facility] [address] [facility] 110 [place] [address] Jer Rizo MD Med Refill 12/05/2024 Travel 12/05/2024 Refill [facility] [address] [facility] 110 [place] [address] Erin Tariq PA Hypothyroidism, unspecified type ; Hypokalemia 12/02/2024 Abstract [facility] [address] [facility] 110 [place] [address] Jer Rizo MD 11/28/2024 Patient Outreach [facility] [employer] [address] [place] [place] [address] Madyson Figueroa RN 11/25/2024 Patient Outreach [facility] [address] [place] [place] [address] Stephenie Chacko RN 11/20/2024 Patient Outreach [facility] [address] [place] [place] [address] Madyson Figueroa RN 11/18/2024 9:30 AM EDT Office Visit [facility] [address] [place] [address] Daily-Aggie Seymour, INSULATION BLOWER-STOCK PATCHER Mixed bipolar affective disorder, moderate (HCC); Bipolar affective disorder, currently depressed, moderate (HCC) 11/18/2024 Bamboo flowsheet [facility] [address] [place] [address] Aggie Gallardo, INSULATION BLOWER-STOCK PATCHER 11/18/2024 Travel 11/15/2024 Abstract [facility] [address] [place] [address] Jer Rizo MD 11/15/2024 Abstract [facility] [address] [facility] [place] [address] Jer Rizo MD 11/15/2024 Abstract [facility] [address] [facility] [place] [address] Jer Rizo MD 11/15/2024 Abstract [facility] [address] [facility] [place] [address] Jer Rizo MD 11/15/2024 Telephone [facility] [address] [facility] [place] [address] Erin Tariq PA 11/14/2024 Refill [facility] [address] [place] [address] Erin Tariq PA Essential hypertension, benign 11/14/2024 Refill [facility] [address] [facility] [place] [address] Jer Rizo MD Localized edema 11/13/2024 Abstract [facility] [address] [facility] [place] [address] Jer Rizo MD 11/09/2024 Refill [facility] [address] [place] [address] [employer] Aggie Yared, INSULATION BLOWER-STOCK PATCHER JENN (generalized anxiety disorder) 11/08/2024 Abstract [facility] [address] [facility] [place] [address] Jer Rizo MD 11/07/2024 Abstract [facility] [address] [facility] [address] [place] [address] Jer Rioz MD 11/06/2024 Abstract [facility] [address] [facility] [place] [address] Jer Rizo MD 11/04/2024 Abstract [facility] [address] [facility] [place] [address] Jer Rizo MD 10/31/2024 Abstract [facility] [address] [facility] [place] [address] Jer Rizo MD 10/31/2024 Abstract [facility] [address] [facility] [address] [place] [address] Jer Rizo MD 10/30/2024 Patient Outreach [facility] [address] [place] [address] Madyson Figueroa RN 10/28/2024 Abstract [facility] [address] [facility] [address] [place] [address] Jer Rizo MD 10/28/2024 Abstract [facility] [address] [facility] [place] [address] Jer Rizo MD 10/28/2024 Abstract [facility] [address] [facility] [place] [address] Jer Rizo MD 10/23/2024 2:00 PM EDT Office Visit [facility] [address] [facility] [address] [place] [address] Erin Tariq, PA Chest pain, unspecified type (Primary Dx); Chronic obstructive pulmonary disease, unspecified COPD type (HCC); Type 2 diabetes mellitus with other specified complication, without long-term current use of insulin (HCC); Morbid (severe) obesity due to excess calories ([facility]); Bipolar affective disorder, currently depressed, moderate (HCC); Oxygen dependent; Bilateral primary osteoarthritis of knee; Allergic rhinitis due to pollen, unspecified seasonality; Rheumatoid arthritis, unspecified (HCC) 10/23/2024 Abstract [facility] [address] [facility] [address] [place] [address] Jer Rizo MD 10/23/2024 Travel 10/23/2024 Telephone [facility] [address] [facility] [address] [place] [address] Jer Rizo MD 10/19/2024 Refill [facility] [address] [facility] [address] [place] [address] Erin Tariq PA Chronic sinusitis, unspecified location 10/16/2024 Abstract [facility] [address] [facility] [address] [place] [address] Jer Rizo MD 10/16/2024 Abstract [facility] [address] [facility] [address] [place] [address] Jer Rizo MD 10/16/2024 Abstract [facility] [address] [facility] [address] [place] [address] Jer Rizo MD 10/11/2024 Patient Outreach [facility] [address] [place] [address] Madyson Figueroa RN 10/04/2024 Refill [facility] [address] [facility] [address] [place] [address] Daily-Aggie Seymour, INSULATION BLOWER-STOCK PATCHER JENN (generalized anxiety disorder) 10/02/2024 Abstract [facility] [address] [facility] [address] [place] [address] Jer Rizo MD 09/30/2024 11:30 AM EDT Social Work [facility] [address] [facility] [address] [place] [address] Braeden Dunham LPC JENN (generalized anxiety disorder) ; Bipolar affective disorder, currently depressed, moderate (HCC); Mixed bipolar affective disorder, moderate (HCC) 09/30/2024 Bamboo flowsheet [facility] [address] [facility] [address] [place] [address] Braeden Dunham LPC 09/30/2024 Travel 09/12/2024 11:30 AM EDT Office Visit [facility] [address] [facility] [address] [place] [address] Daily-Aggie Seymour, INSULATION BLOWER-STOCK PATCHER JENN (generalized anxiety disorder) ; Bipolar affective disorder, currently depressed, moderate (HCC); Mixed bipolar affective disorder, moderate (HCC) 09/12/2024 Telephone [facility] [address] [facility] [address] [place] [address] Daily-Aggie Seymour, INSULATION BLOWER-STOCK PATCHER Zoloft Allergy 09/12/2024 Bamboo flowsheet [facility] [address] [facility] [address] [place] [address] Daily-Aggie Seymour, INSULATION BLOWER-STOCK PATCHER 09/12/2024 Travel from Last 3 Months Immunizations Immunization Administration [...] any clubs o r organizations such as temple groups, unions, fraternal or athletic groups, or [...] Recorded Patient Health Questionnaire-2 Score 0 10/23/2024 [facility] [place] of Occupat ional Health - Occupational Stress [...] any time in the past 12 m [facility], were you homeless or living in [...] Visit [facility] [address] [facility] [address] [place] [address] Erin Tariq PA [address] [place] [address] 12/23/2024 1:00 PM EDT Office Visit [facility] [address] [facility] [address] [place] [address] Aggie Gallardo, INSULATION BLOWER-STOCK PATCHER [address] [place] [address] 03/06/2025 10:40 AM EDT Office Visit [facility] [address] [place] [address] Tip Morillo, DPYared [address] [facility] 5 [place] [address] Health Maintenance Due Date Last Done Comments [...] Procedure Name Priority Date/Time Associated Diagnosis Comments XR CERVICAL SPINE 5V 12/10/2024 3:05 PM EDT POCT GLYCOSYLATED HEMOGLOBIN (HGB A1C) Routine 08/14/2024 [...] Recently Relevant to Health Maintenance Results * XR CERVICAL SPINE 5V (12/10/2024 3:05 PM EDT) Anatomical Region Laterality Modality Other 12/10/2024 3:05 PM EDT Narrative 12/10/2024 3:08 PM EDT [address] [address] XRay Report Signed Patient: MALCOLM CORRALES MR#: [id number] : 1960 Acct:[id number] Age/Sex: 64 / F ADM Date: 12/10/24 Loc: RAD Attending Dr: Clayton Lemus NP Ordering Physician: Clayton Lemus NP Date of Service: 12/10/24 Procedure(s): XR cervical spine 5V Accession Number(s): [id number] cc: JER RIZO ; Clayton Lemus NP [address] [address] Patient Name: MALCOLM CORRALES MRN: [id number] date: 1960 Sex: F Assigned Patient Location: [facility] Current Patient Location: [facility] Accession/Order Number: [id number] Exam Date: 12/10/2024 15:03 Report Date: 12/10/2024 15:05 At the request of: CLAYTON LEMUS NP Procedure: XR cervical spine 5V 5 views of thecervical spine HISTORY: Chronic neck pain. History of fibromyalgia COMPARISON: CT of the neck 03/18/2024 POSTOPERATIVE CHANGES: None BONY ALIGNMENT: Similar mild reversal HYPERMOBILITY::No bending imaging. LISTHESIS:None FRACTURE: None DISC DEGENERATION: Redemonstration of mild cervical spondylosis greatest at the C4-5 level. FACETS: Similar moderate degenerative changes FORAMEN: Moderate C4-C7 bilateral bony neural foraminal narrowing DENS: Intact CRANIOCERVICAL JUNCTION: Unremarkable SOFT TISSUES: Unremarkable XR/XR cervical spine 5V IMPRESSION: Similar extensive multilevel cervical spine degeneration greatest at the C4-5 level. Impression dictated by: Mauri Blackwell M.D. 12/10/2024 3:05 PM Dictation Location: [place] [address] Electronically authenticated by: [id number] Y Date: 12/10/2024 15:05 Dictated By: Mauri Blackwell D.O. Signed By: 12/10/24 1508 DD/ 1505 TD/TT: Refractory Mixer: Procedure Note Radiology, Radiologist, - 12/10/2024 [place] [address] XRay Report Signed Patient: MALCOLM CORRALES AMR#: [id number] : 1960cct:[id number] Age/Sex: 64 / FADM Date: 12/10/24 Loc: RAD Attending Dr: Clayton Lemus NP Ordering Physician: Clayton Lemus NP Date of Service: 12/10/24 Procedure(s): XR cervical spine 5V Accession Number(s): [id number] cc: JER RIZO ; Clayton Lemus NP [place] [address] Patient Name: MALCOLM CORRALES MRN: [id number] date: 1960 Sex: F Assigned Patient Location: [facility] Current Patient Location: [facility] Accession/Order Number: [id number] Exam Date: 12/10/2024 15:03 Report Date: 12/10/2024 15:05 At the request of: CLAYTON LEMUS NP Procedure: XR cervical spine 5V 5 views of thecervical spine HISTORY: Chronic neck pain. History of fibromyalgia COMPARISON: CT of the neck 03/18/2024 POSTOPERATIVE CHANGES: None BONY ALIGNMENT: Similar mild reversal HYPERMOBILITY::No bending imaging. LISTHESIS:None FRACTURE: None DISC DEGENERATION: Redemonstration of mild cervical spondylosis greatestat the C4-5 level. FACETS: Similar moderate degenerative changes FORAMEN: Moderate C4-C7 bilateral bony neural foraminal narrowing DENS: Intact CRANIOCERVICAL JUNCTION: Unremarkable SOFT TISSUES: Unremarkable XR/XR cervical spine 5V IMPRESSION: Similar extensive multilevel cervical spine degenerationgreatest at the C4-5 level. Impression dictated by: Mauri Blackwell M.D. 12/10/2024 3:05 PM Dictation Location: [place] [address] Electronically authenticated by: [id number] Y Date: 5:05 Dictated By: Mauri Blackwell D.O. Signed By:12/10/24 1508 DD/ 1505 TD/TT: Refractory Mixer: us Generic External Data Provider [facility] Final Result * POCT glycosylated hemoglobin (Hb A1C) docked device (08/14/2024 10:27 AM EDT) Hemoglobin A1C 8.9 Blood Venous blood specimen / Unknown 08/14/2024 10:27 AM EDT Mary Rhodes NP POINT OF CARE TEST ENTER/JAVAD T ORDERABLES Final Result * Bilateral screening mammogram with tomosynthesis (05/17/2023 2:51 PM EST) Anatomical Region Laterality Modality Breast Bilateral Mammography 05/30/2023 9:56 AM EST Impressions 05/30/2023 12:47 PM EST BIRADS 2 - Benign Follow-up: Routine Screening Mamm . Board Certified Radiologists. Accredited by the ACR and FDA. MAMMOGRAPHY IS VERY IMPORTANT TO YOUR HEALTH. THE EMIRATI CANCER SOCIETY GUIDELINES RECOMMEND THAT WOMEN 40 [...] IS VERY IMPORTANT TO YOUR HEALTH. THE EMIRATI CANCER SOCIETYGUIDELINES RECOMMEND THAT WOMEN 40 YEARS [...] SIGNED BY: Mayank Zamora MD Erin KINGSLEY IMG BI PROCEDURES Final Result * Microalbumin / [...] Information Site ID: [id number] Name: [facility] Address: [address] [place] [address], [address] [place] [id number] Director: Jw Camarena MD Erin KINGSLEY LAB URINE ORDERABLES Final Res ult [facility] * Diabetic Retinopathy Screening - OU - Both Eyes (01/26/2023) RESULTS ndr Anatomical Region Laterality Modality Head Other 01/26/2023 us Jer Rizo MD OPHTH PHOTOGRAPHY Final Result [...] 2023 Insurance [employer] MED[employer] Care Teams Visitor Services Information Assistant Relationship Specialty Start Date End Date Jer Rizo MD [address] [facility] 110 [place] [address] PCP - General Internal Medicine 01/03/23 Jer Rizo MD [address] [facility] 110 [place] [address] PCP - Sari HERNANDEZ 05/29/24 Aggie Gallardo APRN-STOCK PATCHER [address] [facility] 160 [place] [address] Nurse Practitioner Psychiatry 06/13/24 Madyson Figueroa, BETY [address] [facility] [address] [place] [address] Registered Nurse Family Medicine 08/14/24 Braeden Dunham LPC Therapist Behavioral Health 11/25/24
--- OUTSIDE RECORDS SUMMARY | 2024-12-12 10:50 | XMS_ITS | Encounter Summary ---
Author Organization [facility] Address [address] [facility] [place] [address] Care Team Providers Care Canvas Cutter Machine Name Role Phone Jer Rizo MD Primary Care Provider [phone] Aggie Gallardo LAND DEGRADATION ANALYST-CORPORATE MEETING PLANNER Unavailable Jer Rizo MD Unavailable [phone] Madyson Figueroa RN Unavailable [phone] Braeden Dunham LPC Unavailable Unavailable Encounter Details Date Type Department Care Team (Late st Contact Info) Description 11/15/2024 Abstract [facility] 112 [facility] 110 [place] [address] Jer Rizo MD 112 [facility] 110 [place] [address] Social History Tobacco Use Types [...] and Family Not on file 12/04/2023 Attends Syn[employer] Services Not on file 12/03 Do you [...] Health Questionnaire-2 Score 0 10/23/2024 [facility] of Occupat ional Health - Occupational [...] [address] [place] [address] Erin Tariq PA [address] [place] [address] 12/23/2024 1:00 PM EDT Office Visit [facility] [address] [place] [address] Aggie Gallardo, LAND DEGRADATION ANALYST-CORPORATE MEETING PLANNER [address] [place] [address] 03/06/2025 10:40 AM EDT Office Visit [facility] [address] [place] [address] Tip Morillo DPM [address] [facility] 5 [place] [address] documented as of this encounter Goals Goal [...] documented as of this encounter Care Teams Canvas Cutter Machine Relationship Specialty Start Date End Date Jer Rizo MD [address] [facility] 110 [place] [address] PCP - General Internal Medicine 01/03/23 Jer Rizo MD [address] [facility] [address] [place] [address] PCP - Sari HERNANDEZ 05/29/24 Aggie Gallardo APRN-CORPORATE MEETING PLANNER [address] [facility] 160 [place] [address] Nurse Practitioner Psychiatry 06/13/24 Madyson Figueroa, BETY [address] [facility] [address] [place] [address] Registered Nurse Family Medicine 08/14/24 Braeden Dunham LPC Therapist Behavioral Health 11/25/24 documented as of this encounter
--- OUTSIDE RECORDS SUMMARY | 2024-12-12 10:50 | XMS_ITS | Encounter Summary ---
Author Organization [facility] Address [address] [facility] [place] [address] Care Team Providers Care Die Lay Out Worker Name Role Phone Jer Rizo MD Primary Care Provider [phone] Aggie Gallardo PAPER SHEETER-NAPHTHALENE OPERATOR Unavailable Jer Rizo MD Unavailable [phone] Madyson Figueroa RN Unavailable [phone] Braeden Dunham LPC Unavailable Unavailable Encounter Details Date Type Department Care Team (Late st Contact Info) Description 11/15/2024 Abstract [facility] 112 [facility] 110 [place] [address] Jer Rizo MD 112 [facility] 110 [place] [address] Social History Tobacco Use Types [...] Patient Health Questionnaire-2 Score 0 10/23/2024 [facility] of Occupat ional Health - Occupational [...] [address] [place] [address] Erin Tarqi PA [address] [place] [address] 12/23/2024 1:00 PM EDT Office Visit [facility] [address] [place] [address] Aggie Gallardo, PAPER SHEETER-NAPHTHALENE OPERATOR [address] [place] [address] 03/06/2025 10:40 AM EDT Office Visit [facility] [address] [place] [address] Tip Morillo DPM [address] [facility] 5 [place] [address] documented as of this encounter Goals Goal [...] documented as of this encounter Care Teams Die Lay Out Worker Relationship Specialty Start Date End Date Jer Rizo MD [address] [facility] 110 [place] [address] PCP - General Internal Medicine 01/03/23 Jer Rizo MD [address] [facility] [address] [place] [address] PCP - Sari HERNANDEZ 05/29/24 Aggie Gallardo APRN-NAPHTHALENE OPERATOR [address] [facility] 160 [place] [address] Nurse Practitioner Psychiatry 06/13/24 Madyson Figueroa, BETY [address] [facility] 230 [place] [address] Registered Nurse Family Medicine 08/14/24 Braeden Dunham LPC Therapist Behavioral Health 11/25/24 documented as of this encounter
--- NOTE | 2024-12-12 10:59 | PM.CN ---
Consult Note: HPI Data of Consult Patient: known to practice within the last 3 years Consult date: 12/12/24 Requesting Physician: Connie Lemus NP Primary Care Provider: YVONNE DANIEL Consult Narrative Reason for consult: neck pain Narrative: 64yof who presents for evaluation. longstanding neck, low back pain history. advanced imaging of the neck and low back, which shows multilevel spondylosis and DDD throughout cervical and lumbar spines, though no acute pathology noted. she has continued in a series of provider directed home exercises >6 weeks, without any lasting benefit. she uses tramadol twice daily as needed, as well as baclofen and gabapentin. since last visit cardiology discontinued diclofenac. denies adverse med side effects. recent cervical xray shows no acute findings, does not chronic degenerative disc disease and stenosis. pain today 7/10 increasing to 10/10 with ROM and activity such as lifting and ADLs. cc:: CC: Connie Lemus NP Review of Systems ROS Musculoskeletal Reports: back pain, neck pain and joint pain; Denies: extremity pain PFSH PFS Medical History Endometriosis �N80.9 - Endometriosis, unspecified (ICD-10) Osteoporosis �M81.0 - Age-related osteoporosis without current pathological fracture (ICD-10) Asthma �J45.909 - Unspecified asthma, uncomplicated (ICD-10) Chronic respiratory failure with hypoxia, on home O2 therapy �J96.11 - Chronic respiratory failure with hypoxia (ICD-10) �Z99.81 - Dependence on supplemental oxygen (ICD-10) Hiatal hernia �K44.9 - Diaphragmatic hernia without obstruction or gangrene (ICD-10) Degenerative disc disease, lumbar �M51.36 - Other intervertebral disc degeneration, lumbar region (ICD-10) Bipolar disorder �F31.9 - Bipolar disorder, unspecified (ICD-10) Fibromyalgia �M79.7 - Fibromyalgia (ICD-10) Hypothyroidism �E03.9 - Hypothyroidism, unspecified (ICD-10) Rheumatoid arthritis �M06.9 - Rheumatoid arthritis, unspecified (ICD-10) DM2 (diabetes mellitus, type 2) �E11.9 - Type 2 diabetes mellitus without complications (ICD-10) Mixed hyperlipidemia �E78.2 - Mixed hyperlipidemia (ICD-10) Essential hypertension �I10 - Essential (primary) hypertension (ICD-10) Obesity �E66.9 - Obesity, unspecified (ICD-10) COPD (chronic obstructive pulmonary disease) �J44.9 - Chronic obstructive pulmonary disease, unspecified (ICD-10) Stable angina pectoris �I20.89 - Other forms of angina pectoris (ICD-10) Surgical History H/O laparoscopy �Z98.890 - Other specified postprocedural states (ICD-10) H/O cataract extraction �Z98.49 - Cataract extraction status, unspecified eye (ICD-10) Hx laparoscopic cholecystectomy �Z90.49 - Acquired absence of other specified parts of digestive tract (ICD-10) H/O cardiac catheterization �Z98.890 - Other specified postprocedural states (ICD-10) Family History Other Breast cancer CAD (coronary artery disease) Family history of cancer Family history of diabetes mellitus Family history of hypertension Family history of myocardial infarction Social History Within the past year, how often did you have a drink containing alcohol: never Score interpretation: A score less than 3 is consistent with normal alcohol consumption. Smoking status: Never smoker Previous occupational history: retired/disability Highest level of school completed/degree received: high school graduate Little interest or pleasure in doing things: not at all Feeling down, depressed, or hopeless: not at all Gender Identity: female Meds Home Medications and Allergies Home Medications �Medication �Instructions �Recorded �Confirmed �Type budesonide 160 mcg-glycopyr 9 2 inh inhalation BID 06/27/23 09/16/24 History mcg-formot 4.8 mcg/actuation HFA inhaler (Breztri Aerosphere) cariprazine 3 mg capsule (Vraylar) 3 mg PO QDAY 06/27/23 09/16/24 History dapagliflozin propanediol 10 mg 10 mg PO QAM 06/27/23 09/16/24 History tablet (Farxiga) diclofenac sodium 75 mg 75 mg PO Q12H 06/27/23 09/16/24 History tablet,delayed release furosemide 40 mg tablet 40 mg PO BID 06/27/23 09/16/24 History gabapentin 600 mg tablet 600 mg PO QAM 06/27/23 09/16/24 History levothyroxine 112 mcg tablet 112 mcg PO DAILY 06/27/23 09/16/24 History rosuvastatin 5 mg tablet 5 mg PO .qhs 06/27/23 09/16/24 History metoprolol tartrate 25 mg tablet 25 mg PO BID 06/28/23 09/16/24 History duloxetine 30 mg capsule,delayed 30 mg PO DAILY 09/16/24 09/16/24 History release (Cymbalta) semaglutide 0.25 mg or 0.5 mg (2 0.25 mg subcut QWEEK 09/16/24 09/16/24 History mg/3 mL) subcutaneous pen injector (Ozempic) tramadol 50 mg tablet 50 mg PO TID PRN pain #90 tabs 10/10/24 Rx Allergies Allergy/AdvReac Type Severity Reaction Status Date / Time ibandronate sodium (From Allergy Severe Hives Verified 09/16/24 11:31 Boniva) Sulfa (Sulfonamide Allergy Severe Anaphylaxis Verified 09/16/24 11:31 Antibiotics) Penicillins Allergy Intermediate Anaphylaxis Verified 09/16/24 11:31 Exam Constitutional Documenting provider has reviewed patient's vital signs: yes Common normals: no apparent distress, oriented x3, healthy appearing, alert and well nourished General appearance: cooperative HENMT Common normals: normocephalic, hearing grossly normal bilaterally and moist oral mucous membranes Head and scalp: normocephalic Eye Common normals: PERRL Pupil: PERRL Neck & C-Spine Common normals: full ROM General: normal visual inspection Cervical spine: cervical ROM abnormal and pain with cervical ROM Other: positive spurlings sensation intact BUE notable myofascial spasming and discomfort strength 5/5 in BUE Chest Common normals: inspection of chest normal Respiratory Common normals: normal respiratory effort, no retractions and no use of accessory muscles Neuro Common normals: oriented x3 Sensorium/orientation: alert Motor exam: no movement abnormalities noted Psych Common normals: mental status grossly normal, thought process normal, cooperative, affect normal, speech normal and activity/motor behavior normal Speech: normal speech Thought process: normal thought process Results Imaging cervical xray: Attestation: I have reviewed the pertinent imaging results. Radiologist's impression: DISC DEGENERATION: Redemonstration of mild cervical spondylosis greatest at the C4-5 level. FACETS: Similar moderate degenerative changes FORAMEN: Moderate C4-C7 bilateral bony neural foraminal narrowing DENS: Intact CRANIOCERVICAL JUNCTION: Unremarkable Assessment and Plan Assessment and Plan (1) Cervical spinal stenosis: Assessment and Plan: The patient has had over 3 months of moderate to severe neck pain with functional impairment and inadequate response to conservative care including NSAIDS (unless there are contraindication such as concurrent blood thinners), multiple oral or topical pain medications, and home exercise program/physical therapy.� Patient has completed >6 weeks of guided home exercise program and/or formal physical therapy program without relief of their symptoms.� The Oswestry Disability Index was completed, and the patient scored a 48%.� The patient noted the following:�� moderate to severe pain impacting ADLs, lifting, sitting, standing, sleeping, social life, travel (2) Degenerative disc disease, cervical: (3) Myalgia, other site: (4) Chronic use of opiate drug for therapeutic purpose: (5) Lumbar spondylosis: (6) Cervical spondylosis: Plan update cervical mri without contrast to assess cervical stenosis and ddd in consideration of NS consultation vs RASHAWN increase tramadol 50mg TID PRN moderate to severe pain, pt high risk for accidental overdose due to polypharmacy and comorbidities. we reviewed these risks today and narcan was prescribed. pt notes moderate pain relief for 4 hours with tramadol and now that she cannot take NSAIDs as directed by cardiology she is noticing increased joint pain continue gabapentin 600mg am and 1200mg HS, again discussed high risk for polypharmacy especially with opioids advised pt to utilize tramadol and baclofen PRN and not take at the same time f/u to review cervical MRI
== END 2024-12-12 10:47 | disposition home or self-care (01) ==
LOC: PM 10:46
PROVIDERS: PCP Internal Medicine; Visit Provider Nurse Practitioner
DX: M48.02 Spinal stenosis, cervical region (principal); M50.30 Other cervical disc degeneration, unspecified cervical region; M79.18 Myalgia, other site; Z79.891 Long term (current) use of opiate analgesic; M47.816 Spondylosis without myelopathy or radiculopathy, lumbar region; M47.812 Spondylosis without myelopathy or radiculopathy, cervical region
CPT/HCPCS: G0463

== ENCOUNTER 2025-03-12 14:02 | Outpatient (OUT) | payer MEDICARE, SELFPAY ==
--- OUTSIDE RECORDS SUMMARY | 2024-06-20 09:20 | XMS_ITS ---
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 Name Role Phone Erin Tariq PA-C Primary Care Provider Unavail Alexsandra Simental Unavailable [phone] REASON FOR VISIT Nail Care Encounters Encounter Location Date Provider Diagnosis [facility] (PODIATRY) [address] [place] [address] [place] [address] 06/20/2024 Alexsandra Rooney Plan Of Treatment No Information Progress Notes * PATRICIAKWASITRISanna ADOB:08/1959 (65 yo F)Acc No.[id number]:06/20/2024 UNLOCKED PROGRESS NOTE New Patient Patient: Sanna CLAUDIO Provider: Christo Roonye PA-C :1960 A ge:64 Y S ex:Female Date:06/20/2024 Address:[address] [place], [place] [id number] Pcp:Erin Tariq PA-C Subjective: * Chief Complaints: * 1 . Nail Care. * Medical History: Objective: * Vitals: Assessment: Plan: * Treatment: * * Electronic signature of Carlos Rooney PA-C on 03/12/2025 at 12:19 PM EDT Sign off status: Pending Visit Status: C ANC (Cancelled) * Provider: Christo Rooney PA-C Date: 0 06/20/2024 Generated for Leticia kamara/Flower/Yosmitting on: 1 12:19 PM EDT
--- OUTSIDE RECORDS SUMMARY | 2024-10-28 07:00 | XMS_ITS ---
Author Organization [facility] in [place] Address [address] [place] [address] Care Team Providers Care Collarette Separator Name Role Phone Erin Tariq PA-C Primary Care Provider Unavail Manjinder Orozco Unavailable [phone] REASON FOR VISIT 3m F/U - REBECCA/OHS, Asthma Encounters Encounter Location Date Provider Diagnosis Pulmonary Medicine [place] [address] [place] [address] 10/28/2024 Manjinder Altman Plan Of Treatment No Information Progress Notes * Sanna CORRALES ADOB:08/1959 (65 yo F)Acc No.[id number]:10/28/2024 UNLOCKED PROGRESS NOTE Follow Up Patient: Sanna CLAUDIO Provider: Ilda Altman DO :1960 A ge:64 Y S ex:Female Date:10/28/2024 Address:[address] [place], [place] [id number] Pcp:Erin Tariq PA-C Subjective: * Chief Complaints: * 1 . 3m F/U - REBECCA/OHS, Asthma. * Medical History: Objective: * Vitals: Assessment: Plan: * Treatment: * * Electronic signature of Lori Altman DO on 03/12/2025 at 02:08 PM EDT Sign off status: Pending Visit Status: R /S (Rescheduled) * Provider: Ilda Altman DO Date: 0 10/28/2024 Generated for Leticia kamara/Flower/Christopher on: 1 02:08 PM EDT
--- OUTSIDE RECORDS SUMMARY | 2024-11-11 06:00 | XMS_ITS ---
Author Organization The [facility] in [place] Address [address] [place] [address] Care Team Providers Care Computer Game Programmer Name Role Phone Erin Tariq PA-C Primary Care Provider Unavail Manjinder Orozco Unavailable [phone] REASON FOR VISIT 3m F/U - REBECCA/OHS, Asthma Encounters Encounter Location Date Provider Diagnosis Pulmonary Medicine [place] [address] [place] [address] 11/11/2024 Manjinder Altman Plan Of Treatment No Information Progress Notes * Sanna CORRALES ADOB:08/1959 (65 yo F)Acc No.[id number]:11/11/2024 UNLOCKED PROGRESS NOTE Follow Up Patient: Sanna CLAUDIO Provider: Ilda Altman DO :1960 A ge:64 Y S ex:Female Date:11/11/2024 Address:[address] [place], [place] [id number] Pcp:Erin Tariq PA-C Subjective: * Chief Complaints: * 1 . 3m F/U - REBECCA/OHS, Asthma. * Medical History: Objective: * Vitals: Assessment: Plan: * Treatment: * * Electronic signature of Lori Altman DO on 03/12/2025 at 02:07 PM EDT Sign off status: Pending Visit Status: C ANC (Cancelled) * Provider: Ilda Altman DO Date: 0 11/11/2024 Generated for Leticia kamara/Flower/Shenaitting on: 1 02:07 PM EDT
--- OUTSIDE RECORDS SUMMARY | 2025-03-04 13:30 | XMS_ITS | Encounter Summary ---
Author Organization [facility] nextsocial [facility] tem Address [id number] [address] [place] [address] Care Team Providers Care Block Breaker Name Role Phone Jer Rizo MD Primary Care Provider [phone] Encounter Details Date Type Department Care Team (Late st Contact Info) Description 03/04/2025 1:30 PM EDT Procedure visit [facility] - Pre Admit [address] [place] [address] Social History Tobacco Use Types Packs/Day Years Used Date Smoking Tobacco: Never Smokeless Tobacco: Never Tobacco Cessation:Counseling Given: Not Answered Comments:Exposed to smoking all of her life Alcohol Use Standard Drinks/Week Comments Not Currently 0 (1 standard drink = 0.6 oz pur e alcohol) very rare at the holidays AUDIT-C Answer Date Recorded Q1: How often do you have a drink containing alc ohol? Never 01/24/2020 Average Number of Drinks Not on file 020 Frequency of Binge Drinking Not on file 12/28 Childcare Answer Date Recorded Childcare Unknown 11/07/2018 Employment Answer Date Recorded Employment Unknown 11/07/2018 Purpose - Life Answer Date Recorded Purpose and direction in life Unknown Comments No Sex and Gender Information Value Date Recorded Sex Assigned at Not on file Legal Sex Female 12:01 PM EDT Gender Identity Not on file Sexual Orientation Not on file documented as of this encounter Last Filed Vital Signs Vital Sign Reading Time Taken Comments Blood Pressure - - Pulse - - Temperature - - Respiratory Rate - - Oxygen Saturation - - Inhaled Oxygen Concentration - - Weight 116.6 kg (257 lb) 03/04/2025 1:52 PM EDT Height 149.9 cm (4' 11 ) 03/04/2025 1:52 PM EDT Body Mass Index 51.91 03/04/2025 1:52 PM EDT documented in this encounter Patient Instructions * Patient Instructions* Daria Yeung RN - 03/04/2025 1:30 PM EDT Preoperative Education Checklist- General Surgery date: 03/07/25 Surgery time: 0900 a.m. Arrival time: 0700 a.m. 1. Bring a photo ID and your insurance card with you the day of surgery. You will check in at the main lobby of the [facility]- registration desk is straight ahead as soon as you walk in. Tell them you are here for surgery. 2. If you have a Living Will/Durable Power of Supervisor [employer] for Health Care that is not on file here, please bring a copy the day of surgery. 3. Please shower/bathe the night before surgery with the provided soap or wipes. Do not shower the morning of surgery- you will do use wipes when you arrive here at the hospital before getting into your surgical gown. Do not shave the area of your procedure for 2 days prior to your surgery. 4. NO powder, lotion, perfume/cologne, aftershave, make-up, deodorant, or hair products after you have bathed. 5. NO nail portuguese/acrylic on at least one finger. If you are having a hand, wrist or foot surgery then all nail portuguese and artificial/acrylic nails must be removed from that hand or foot. 6. Avoid ALL Aspirin and non-steroidal anti-inflammatory drugs and certain vitamins (Ibuprofen, Advil, Aleve, Excedrin, Meloxicam, Celebrex, fish/krill oil, etc.) for 7 days prior to surgery as instructed by your surgeon and/or your prescribing doctor. Tylenol IS ALLOWED. If you are on Ticlid, Xarelto, Eliquis, Pradaxa, Plavix or Coumadin, please check with your prescribing doctor for instructions for when to stop them. 7. If you use an inhaler, continue to use it routinely. 8. Nothing to eat or drink (not even water, gum, mints, or hard candy!) AFTER midnight prior to your surgery. 9. Take only medications that you are instructed to on the morning of surgery with a TINY SIP OF WATER. 10. Choose a responsible adult that will be able to drive you home when you are discharged from your hospital stay for your surgery and can stay with you in your home for 24 hours after your procedure. You must NOT drive any vehicle or operate any machinery for 24 hours after surgery. 11. When you dress for your appointment, please wear loose fitting clothing that is appropriate to accommodate your surgical area procedure. BRING WITH YOU ANY DEVICES YOU MAY NEED: SUNDAY hose, ice machine, sling/swath, brace or special shoe, oversized zip-up or button up shirt, CPAP machine if staying overnight. 12. Do NOT wear jewelry, watches, or any piercings or metal for surgery- leave these valuables and money at home. 13. Do NOT wear contact lenses for surgery- glasses are okay if needed. 14. The anesthesiologist will talk with you the day of surgery and will ask you to sign a Consent Form. 15. Refrain from smoking or any type of tobacco use for at least 8 hours and marijuana for 24 hoursprior to arrival for your surgery. 16. Notify your surgeon if you develop any illness before your surgery. 17. If you are staying overnight, please DO NOT BRING your home medications with you. 18. If you have any questions prior to surgery, please call the Preadmission Testing office at [phone], Mon.-Fri. 7 a.m.-3 p.m. Leave a voicemail if needed. Pre-Surgery Instructions: Medication Instructions albuterol (PROVENTIL HFA;VENTOLIN HFA) 90 mcg/actuation inhaler Take morning of procedure, as needed BACLOFEN ORAL Stop taking 0 days prior to procedure busPIRone (BUSPAR) 15 mg tablet Stop taking 0 days prior to procedure cariprazine (VRAYLAR) 6 mg capsule Stop taking 0 days prior to procedure dapagliflozin propanediol (FARXIGA ORAL) Stop taking 3 days prior to procedure diclofenac (VOLTAREN) 75 mg EC tablet Stop taking 1 week prior to procedure furosemide (LASIX) 40 mg tablet Stop taking 0 days prior to procedure gabapentin (NEURONTIN) 300 mg capsule Stop taking 0 days prior to procedure insulin glargine (LANTUS) 100 unit/mL injection Continue as prescribed, take morning of procedure- take half of regular dose, 10 units lamoTRIgine (LaMICtal) 25 mg tablet Stop taking 0 days prior to procedure levothyroxine (SYNTHROID, LEVOTHROID) 100 MCG tablet Continue as prescribed, take morning of procedure metoprolol succinate XL (TOPROL-XL) 25 mg 24 hr tablet Continue as prescribed, take morning of procedure potassium chloride (KLOR-CON SPRINKLE) 10 MEQ CR capsule Stop taking 0 days prior to procedure semaglutide (OZEMPIC SUBQ) Stop taking 1 week prior to procedure sod sulf-pot chloride-mag sulf 1.479-0.188- 0.225 gram tablet Stop taking 0 days prior to procedure traMADoL (ULTRAM) 50 mg tablet Stop taking 0 days prior to procedure trazodone HCl (TRAZODONE ORAL) Stop taking 0 days prior to procedure documented in this encounter Miscellaneous Notes * Perioperative Nursing Note - Daria Yeung RN - 03/04/2025 1:30 PM EDT Preoperative Education Checklist- General Surgery date: 03/07/25 Surgery time: 0900 a.m. Arrival time: 0700 a.m. 1. Bring a photo ID and your insurance card with you the day of surgery. You will check in at the main lobby of the [facility]- registration desk is straight ahead as soon as you walk in. Tell them you are here for surgery. 2. If you have a Living Will/Durable Power of Supervisor [employer] Office for Health Care that is not on file here, please bring a copy the day of surgery. 3. Please shower/bathe the night before surgery with the provided soap or wipes. Do not shower the morning of surgery- you will do use wipes when you arrive here at the hospital before getting into your surgical gown. Do not shave the area of your procedure for 2 days prior to your surgery. 4. NO powder, lotion, perfume/cologne, aftershave, make-up, deodorant, or hair products after you have bathed. 5. NO nail portuguese/acrylic on at least one finger. If you are having a hand, wrist or foot surgery then all nail portuguese and artificial/acrylic nails must be removed from that hand or foot. 6. Avoid ALL Aspirin and non-steroidal anti-inflammatory drugs and certain vitamins (Ibuprofen, Advil, Aleve, Excedrin, Meloxicam, Celebrex, fish/krill oil, etc.) for 7 days prior to surgery as instructed by your surgeon and/or your prescribing doctor. Tylenol IS ALLOWED. If you are on Ticlid, Xarelto, Eliquis, Pradaxa, Plavix or Coumadin, please check with your prescribing doctor for instructions for when to stop them. 7. If you use an inhaler, continue to use it routinely. 8. Nothing to eat or drink (not even water, gum, mints, or hard candy!) AFTER midnight prior to your surgery. 9. Take only medications that you are instructed to on the morning of surgery with a TINY SIP OF WATER. 10. Choose a responsible adult that will be able to drive you home when you are discharged from your hospital stay for your surgery and can stay with you in your home for 24 hours after your procedure. You must NOT drive any vehicle or operate any machinery for 24 hours after surgery. 11. When you dress for your appointment, please wear loose fitting clothing that is appropriate to accommodate your surgical area procedure. BRING WITH YOU ANY DEVICES YOU MAY NEED: SUNDAY hose, ice machine, sling/swath, brace or special shoe, oversized zip-up or button up shirt, CPAP machine if staying overnight. 12. Do NOT wear jewelry, watches, or any piercings or metal for surgery- leave these valuables and money at home. 13. Do NOT wear contact lenses for surgery- glasses are okay if needed. 14. The anesthesiologist will talk with you the day of surgery and will ask you to sign a Consent Form. 15. Refrain from smoking or any type of tobacco use for at least 8 hours and marijuana for 24 hoursprior to arrival for your surgery. 16. Notify your surgeon if you develop any illness before your surgery. 17. If you are staying overnight, please DO NOT BRING your home medications with you. 18. If you have any questions prior to surgery, please call the Preadmission Testing office at [phone], Mon.-Fri. 7 a.m.-3 p.m. Leave a voicemail if needed. Pre-Surgery Instructions: Medication Instructions albuterol (PROVENTIL HFA;VENTOLIN HFA) 90 mcg/actuation inhaler Take morning of procedure, as needed BACLOFEN ORAL Stop taking 0 days prior to procedure busPIRone (BUSPAR) 15 mg tablet Stop taking 0 days prior to procedure cariprazine (VRAYLAR) 6 mg capsule Stop taking 0 days prior to procedure dapagliflozin propanediol (FARXIGA ORAL) Stop taking 3 days prior to procedure diclofenac (VOLTAREN) 75 mg EC tablet Stop taking 1 week prior to procedure furosemide (LASIX) 40 mg tablet Stop taking 0 days prior to procedure gabapentin (NEURONTIN) 300 mg capsule Stop taking 0 days prior to procedure insulin glargine (LANTUS) 100 unit/mL injection Continue as prescribed, take morning of procedure- take half of regular dose, 10 units lamoTRIgine (LaMICtal) 25 mg tablet Stop taking 0 days prior to procedure levothyroxine (SYNTHROID, LEVOTHROID) 100 MCG tablet Continue as prescribed, take morning of procedure metoprolol succinate XL (TOPROL-XL) 25 mg 24 hr tablet Continue as prescribed, take morning of procedure potassium chloride (KLOR-CON SPRINKLE) 10 MEQ CR capsule Stop taking 0 days prior to procedure semaglutide (OZEMPIC SUBQ) Stop taking 1 week prior to procedure sod sulf-pot chloride-mag sulf 1.479-0.188- 0.225 gram tablet Stop taking 0 days prior to procedure traMADoL (ULTRAM) 50 mg tablet Stop taking 0 days prior to procedure trazodone HCl (TRAZODONE ORAL) Stop taking 0 days prior to procedure * Perioperative Nursing Note - Daria Yeung RN - 03/04/2025 1:[address] Aleman from anesthesia evaluated due to BMI of 51.9 and COPD with continuous oxygen at 3 L/NC and cleared her for her colonoscopy procedure this Monday03/07/25. Surgical instructions reviewed. Patient verbalized understanding. documented in this encounter Plan of Treatment Not on file documented as of this encounter Visit Diagnoses Not on filedocumented in this encounter Care Teams Block Breaker Relationship Specialty Start Date End Date Jer Rizo MD [address] [facility], [facility] [address] [place] [id number] PCP - General Internal Medicine 01/24/20 documented as of this encounter
--- OUTSIDE RECORDS SUMMARY | 2025-03-07 06:57 | XMS_ITS | Encounter Summary ---
Author Organization [facility] tem Address [id number] [address] [place] [address] Care Team Providers Care Sole Assessor Name Role Phone Jer Rizo MD Primary Care Provider [phone] Reason for Visit * Auth/Cert Specialty Diagnoses / Procedures Referred By Lang t Referred To Contact Diagnoses diarrhea Procedures ID COLONOSCOPY FLX DX W/COLLJ SPEC WHEN PFRMD COLONOSCOPY DIAGNOSTIC / SCREENING Ashley Vyas MD [address] [place] [address] Phone: tel: fax: Referral ID Status Reason Start Date Expiration Date Visits Re quested Visits Authorized [id number] 1 1 Encounter Details Date Type Department Care Team (Late st Contact Info) Description 03/07/2025 6:57 AM EDT - 03/07/2025 10:06 AM EDT Hospital Encounter [facility] - Surgery [address] [place] [id number] Ashley Vyas MD [address] [place] [address] Discharge Disposition: Home Social History Tobacco Use Types Packs/Day Years Used Date Smoking Tobacco: Never Smokeless Tobacco: Never Comments:Exposed to smoking all of her life [...] Sign Reading Time Taken Comments Blood Pressure 115/84 03/07/2025 9:47 AM EDT Pulse 60 03/07/2025 9:47 AM EDT Temperature 36.2 C (97.2 F) 03/07/2025 9:35 AM EDT Respiratory Rate 11 03/07/2025 9:47 AM EDT Oxygen Saturation 96% 03/07/2025 9:47 AM EDT Inhaled Oxygen Concentration - - Weight 116.6 kg (257 lb) 03/07/2025 7:20 AM EDT Height 149.9 cm (4' 11 ) 03/07/2025 7:20 AM EDT Body Mass Index 51.91 03/07/2025 7:20 AM EDT documented in this encounter Discharge Instructions * Discharge Instructions* Darya Mendoza RN - 03/07/2025 8:08 AM EDT You may feel dizzy, sleepy, and lightheaded due to medications you received. For the next 24 hours: Activity tolerated within Physical Limits Rest at home with moderate activity as tolerated Do not drink alcohol Do not drive Do not operate complex/hazardous machinery today Do not make important decisions or sign important papers Notify physician of: Temperature over 100 degrees farenheit Redness, Warmth, Hardness around IV site Allergic Reaction (rash, hives, itching, trouble breathing or swallowing) Questions, Problems, Concerns Preop phone number [phone] ext [phone] documented in this encounter Medications at Time of Discharge albuterol (PROVENTIL HFA;VENTOLIN HFA) 90 mcg/actuation inhaler Inhale 2 puffs every 6 (six) hours as needed for wheezing. aspirin 325 mg tablet Take 1 tablet (325 mg total) by mouth in the morning. Bacillus coagulans-inulin 1 billion-250 cell-mg capsule Take 1 capsule by mouth. 03/27/2024 BACLOFEN ORAL Take 5 mg by mouth in the morning and 5 mg before bedtime. BREZTRI AEROSPHERE 160-9-4.8 mcg/actuation HFA aerosol inhaler INHALE 2 PUFFS IN MORNING AND BEFORE BEDTIME*RINSE MOUTH AFTER EACH USE* cariprazine (VRAYLAR) 6 mg capsule Take 6 mg by mouth in the morning. dapagliflozin propanediol (FARXIGA ORAL) Take 10 mg by mouth in the morning. dextrose (GLUTOSE-15) 40 % gel Take 37.5 mL (15 g total) by mouth. 10/18/2024 diclofenac (VOLTAREN) 75 mg EC tablet Take 1 tablet (75 mg total) by mouth in the morning and 1 tablet (75 mg total) before bedtime. escitalopram (LEXAPRO) 20 mg tablet Take 1 tablet (20 mg total) by mouth in the morning. 12/12/2024 fluticasone propionate (FLONASE) 50 mcg/actuation nasal spray USE 1 SPRAY IN EACH NOSTRIL ONCE A DAY *SHAKE GENTLY/PRIME PUMP/CLEAN TIP AND REPLACE CAP* furosemide (LASIX) 40 mg tablet Take 1 tablet (40 mg total) by mouth 2 (two) times a day. gabapentin (NEURONTIN) 300 mg capsule Take 1 capsule (300 mg total) by mouth nightly. hydrOXYzine (VISTARIL) 25 mg capsule Take 1 capsule (25 mg total) by mouth every 8 (eight) hours as needed. 09/12/2024 insulin glargine (LANTUS) 100 unit/mL injection Inject 0.2 mL (20 Units total) under the skin in the morning. lamoTRIgine (LaMICtal) 25 mg tablet Take 10 tablets (250 mg total) by mouth nightly. levothyroxine (SYNTHROID, LEVOTHROID) 100 MCG tablet Take 112 mcg by mouth in the morning. metoprolol succinate XL (TOPROL-XL) 25 mg 24 hr tablet Take 1 tablet (25 mg total) by mouth in the morning. potassium chloride (KLOR-CON SPRINKLE) 10 MEQ CR capsule Take by mouth in the morning. rosuvastatin (CRESTOR) 5 mg tablet Take 1 tablet (5 mg total) by mouth. semaglutide (OZEMPIC SUBQ) Inject 2.5 mg under the skin once a week. Monday traMADoL (ULTRAM) 50 mg tablet Take 1 tablet (50 mg total) by mouth every 6 (six) hours as needed for pain. trazodone HCl (TRAZODONE ORAL) Take 50 mg by mouth nightly. documented as of this encounter H&P Notes * Ashley Vyas MD - 03/07/2025 8:05 AM EDT HISTORY AND PHYSICAL INTERVAL NOTE: Sanna Corrales 1960 [id number] H&P reviewed. The patient was examined and there are no changes to the H&P. Ashley Vyas MD Source Note - Amy Estrella APRN-CORE ANALYST - 02/18/2025 1:00 PM EDT Images from the original note were not included. Chief Complaint: Diarrhea History of Present Illness Sanna Corrales is a 64 y.o. female who presents to the office for diarrhea. She states she hasnot had a solid bowel movement in over a month. She is having up to 3 bowel movements daily. She istaking Imodium. She also endorses lower abdominal cramping that usually resolves after she has a bowel movement. She denies rectal bleeding. She denies nausea / vomiting. She states her mother has history of Crohn's disease. She can not remember when her last colonoscopy was, but reports she had 2 polyps removed. She denies recent travel or antibiotic use. Can not pinpoint any dietary triggers. Symptoms do not correlate with when she started her Ozempic. Review of Systems Constitutional: Negative for fever and unexpected weight change. HENT: Negative for trouble swallowing. Respiratory: Negative for shortness of breath. Cardiovascular: Negative for chest pain. Gastrointestinal: Positive for abdominal pain and diarrhea. Negative for nausea, vomiting, constipation and blood in stool. Genitourinary: Negative for dysuria and difficulty urinating. Musculoskeletal: Negative for gait problem. Skin: Negative for rash and wound. Neurological: Negative for dizziness, weakness and light-headedness. Hematological: Does not bruise/bleed easily. Psychiatric/Behavioral: Negative for confusion. Past Medical History: Diagnosis Date ARDS (adult respiratory distress syndrome) ([facility]) 2013 Asthma COPD (chronic obstructive pulmonary disease) ([facility]) Diabetes mellitus type 2, controlled ([facility]) H1N1 influenza Hypertension Pneumonia Prolonged emergence from general anesthesia Requires continuous at home supplemental oxygen 3 L NC when active Sleep apnea Visual impairment glasses Past Surgical History: Procedure Laterality Date ARTHROSCOPY KNEE Right 02/04/2020 Performed by Darrel Cheek Jr., DO at [facility] BREAST SURGERY benign tumors removed, bilateral CARPAL TUNNEL RELEASE left CHOLECYSTECTOMY HYSTEROSCOPY removed uterine cyst and tumors (benign) SHOULDER SURGERY right rotator cuff TRACHEOSTOMY 2013, unsure how long she had it TRACHEOSTOMY CLOSURE Allergies Allergen Reactions Boniva [Ibandronate] Hives Cefdinir Hives Nabumetone Other Reaction(s): PT DOESN'T REMEMBER Penicillins Angioedema Sertraline Unusual behaviors Sulfa (Sulfonamide Antibiotics) Angioedema Shortness of breath as well Sulfanilamide Other Reaction(s): Fever,hives Zolpidem Other (See Comments) Terrible nightmares Current Outpatient Medications: albuterol (PROVENTIL HFA;VENTOLIN HFA) 90 mcg/actuation inhaler, Inhale 2 puffs every 6 (six) hoursas needed for wheezing., Disp: , Rfl: albuterol sulfate (VENTOLIN HFA INHL), Inhale., Disp: , Rfl: BACLOFEN ORAL, Take 5 mg by mouth in the morning and 5 mg before bedtime., Disp: , Rfl: busPIRone (BUSPAR) 15 mg tablet, Take 1 tablet (15 mg total) by mouth in the morning and 1 tablet (15 mg total) before bedtime., Disp: , Rfl: cariprazine (VRAYLAR) 6 mg capsule, Take 6 mg by mouth in the morning., Disp: , Rfl: dapagliflozin propanediol (FARXIGA ORAL), Take by mouth., Disp: , Rfl: diclofenac (VOLTAREN) 75 mg EC tablet, Take 1 tablet (75 mg total) by mouth in the morning and 1 tablet (75 mg total) before bedtime., Disp: , Rfl: docusate sodium (COLACE) 100 mg capsule, Take 1 capsule (100 mg total) by mouth in the morning and 1 capsule (100 mg total) before bedtime., Disp: , Rfl: DULoxetine (CYMBALTA) 60 mg capsule, Take 90 mg by mouth in the morning., Disp: , Rfl: exenatide microspheres (BYDUREON SUBQ), Inject under the skin., Disp: , Rfl: furosemide (LASIX) 40 mg tablet, Take 1 tablet (40 mg total) by mouth 2 (two) times a day., Disp: ,Rfl: gabapentin (NEURONTIN) 300 mg capsule, Take 1 capsule (300 mg total) by mouth nightly., Disp: , Rfl: HYDROcodone-acetaminophen (NORCO) 5-325 mg per tablet, , Disp: , Rfl: insulin glargine (LANTUS) 100 unit/mL injection, Inject under the skin in the morning., Disp: , Rfl: lamoTRIgine (LaMICtal) 25 mg tablet, Take 10 tablets (250 mg total) by mouth nightly., Disp: , Rfl: levothyroxine (SYNTHROID, LEVOTHROID) 100 MCG tablet, Take 112 mcg by mouth in the morning., Disp: , Rfl: linaGLIPtin (TRADJENTA) 5 mg tablet, Take 1 tablet (5 mg total) by mouth in the morning., Disp: , Rfl: metoprolol succinate XL (TOPROL-XL) 25 mg 24 hr tablet, Take 1 tablet (25 mg total) by mouth in themorning and 1 tablet (25 mg total) before bedtime., Disp: , Rfl: nystatin (MYCOSTATIN) powder, Apply 1 Application topically in the morning and 1 Application beforebedtime., Disp: , Rfl: omeprazole-sodium bicarbonate (ZEGERID) 40-1.1 mg-gram per capsule, Take 1 capsule by mouth every morning before breakfast., Disp: , Rfl: polyethylene glycol (GLYCOLAX) 17 gram packet, Take 17 g by mouth daily as needed., Disp: , Rfl: potassium chloride (KLOR-CON SPRINKLE) 10 MEQ CR capsule, Take by mouth in the morning., Disp: , Rfl: semaglutide (OZEMPIC SUBQ), Inject under the skin once a week., Disp: , Rfl: tiZANidine (ZANAFLEX) 4 mg tablet, Take 1 tablet (4 mg total) by mouth every 6 (six) hours as needed for muscle spasms. Nightly, Disp: , Rfl: trazodone HCl (TRAZODONE ORAL), Take by mouth., Disp: , Rfl: sod sulf-pot chloride-mag sulf 1.479-0.188- 0.225 gram tablet, Please see instructional sheet givenby physicians office., Disp: 24 tablet, Rfl: 0 Social History Socioeconomic History Marital status: Spouse name: Not on file Number of children: Not on file Years of education: Not on file Highest education level: Not on file Occupational History Not on file Tobacco Use Smoking status: Never Smokeless tobacco: Never Vaping Use Vaping status: Never Used Substance and Sexual Activity Alcohol use: Never Drug use: Never Sexual activity: Not on file Other Topics Concern Not on file Social History Narrative Not on file Social Drivers of Health Financial Resource Strain: High Risk (12/04/2023) Received from [facility] Overall Financial Resource Strain (CARDIA) Difficulty of Paying Living Expenses: Hard Food Insecurity: Food Insecurity Present (12/04/2023) Received from [facility] Hunger Vital Sign Worried About Running Out of Food in the Last Year: Sometimes true Ran Out of Food in the Last Year: Never true Transportation Needs: Unmet Transportation Needs (12/04/2023) Received from [facility] PRAPARE - Transportation Lack of Transportation (Medical): Yes Lack of Transportation (Non-Medical): No Physical Activity: Inactive (12/04/2023) Received from [facility] Exercise Vital Sign Days of Exercise per Week: 0 days Minutes of Exercise per Session: 0 min Stress: Stress Concern Present (12/04/2023) Received from [facility] [employer] [place] [employer] - Occupational Stress Questionnaire Feeling of Stress : To some extent Social Connections: Unknown (12/04/2023) Received from [facility] Social Connection and Isolation Panel [NHANES] Frequency of Communication with Friends and Family: Once a week Frequency of Social Gatherings with Friends and Family: Not on file Attends Congregation Services: Not on file Active Member of Clubs or Organizations: No Attends Club or Organization Meetings: Never Marital Status: Interpersonal Safety: Unknown (07/20/2023) Received from [facility] Fear of Current or Ex-Partner: Not on file Emotionally Abused: Not on file Physically Abused: Not on file Sexually Abused: Not on file Physically or Sexually Abused: Not on file Housing Instability: Low Risk (12/04/2023) Received from [facility] Housing Stability Vital Sign Unable to Pay for Housing in the Last Year: No Number of Times Moved in the Last Year: 0 Homeless in the Last Year: No Family History Problem Relation Age of Onset Crohn's disease Mother Bowel dysfunction Mother Colon cancer Father Cancer Father Lung cancer Father Colon cancer Maternal Grandmother Objective Physical Exam Constitutional: General: She is not in acute distress. Appearance: Normal appearance. She is not ill-appearing. HENT: Head: Normocephalic and atraumatic. Mouth/Throat: Mouth: Mucous membranes are moist. Eyes: Pupils: Pupils are equal, round, and reactive to light. Cardiovascular: Rate and Rhythm: Normal rate. Pulmonary: Effort: Pulmonary effort is normal. No respiratory distress. Abdominal: General: Bowel sounds are normal. There is no distension. Palpations: Abdomen is soft. Tenderness: There is no abdominal tenderness. Musculoskeletal: General: Normal range of motion. Skin: General: Skin is warm and dry. Neurological: Mental Status: She is alert and oriented to person, place, and time. Mental status is at baseline. Vital Signs: Height 149.9 cm (4' 11 ), weight 116.6 kg (257 lb 1.8 oz). Respiratory Source: No data recorded Admission Weight: Weight: 116.6 kg (257 lb 1.8 oz) Labs No results found for: WBC , HGB , HCT , MCV , PLT Lab Results Component Value Date GLU 147 (H) 01/24/2020 CALCIUM 9.1 01/24/2020 K 3.7 01/24/2020 CO2 32 01/24/2020 CL 101 01/24/2020 BUN 9 01/24/2020 CREATININE 0.96 01/24/2020 No results found for: AMYLASE No results found for: LIPASE No results found for: ALT , AST , GGT , ALKPHOS , LABBILI No results found for: INR , PROTIME Assessment Sanna Corrales is a 64 y.o.female with diarrhea, lower abdominal cramping. Plan C diff, GI panel rule out infectious cause. Hold Imodium until this is completed. Schedule colonoscopy. Evaluation included: Preparing to see the patient (e.g., review of tests) Obtaining and/or reviewing separately obtained history Performing a medically appropriate examination and/or evaluation Counseling and educating the patient/family/caregiver Referring and communicating with other health health care social worker Diarrhea, unspecified type [R19.7] SUNNI SALCEDO [facility] General Surgery [place] This note was created with the assistance of a speech recognition program. While intending to generate a timely document that accurately reflects the content of the visit, no guarantee can be provided that every grammatical or spelling mistake has been or will be identified or corrected. Thank you for your understanding. SUNNI Salcedo 02/18/25 1416 SUNNI Salcedo 03/07/25 0805 documented in this encounter Plan of Treatment Not on file documented as of this encounter Procedures Procedure Name Priority Date/Time Associated Diagnosis Comments ID COLONOSCOPY FLX DX W/COLLJ SPEC WHEN PFRMD 03/07/2025 9:12 AM EDT diarrhea COLONOSCOPY 03/07/2025 8:58 AM EDT PROVATION COLONOSCOPY Routine 03/07/2025 8:05 AM EDT documented in this encounter Results * Colonoscopy (03/07/2025 8:58 AM EDT) 03/07/2025 8:58 AM EDT Narrative PM CARDIOVASCULAR - 03/07/2025 9:31 AM EDT [facility] Patient Name: Sanna Corrales Procedure Date No Time: 03/07/2025 CSN : [id number] Date of : 1960 Admit Type: Outpatient Age: 65 Room: [place] Gender: Female Note Status: Finalized Attending MD: Ashley Vyas , , Procedure: Colonoscopy Indications: Diarrhea Providers: Ashley Vyas Referring MD: Ashley Vyas Medicines: Monitored Anesthesia Care Complications: No immediate complications. Procedure: After I obtained informed consent, the scope was passed under direct vision. Throughout the procedure, the patient's blood pressure, pulse, and oxygen saturations were monitored continuously. The OLYMPUS [id number] #[id number] ADULT COLONOSCOPE was introduced through the anus and advanced to the cecum, identified by appendiceal orifice and ileocecal valve. The colonoscopy was performed without difficulty. The patient tolerated the procedure well. The quality of the bowel preparation was good. The ileocecal valve, appendiceal orifice, and rectum were photographed. Findings: The entire examined colon appeared normal. Estimated Blood Loss: Estimated blood loss: none. Impression: - The entire examined colon is normal. - No specimens collected. Recommendation: - Repeat colonoscopy in 10 years for screening purposes. Procedure Code(s): --- Professional --- 06710, Colonoscopy, flexible; diagnostic, including collection of specimen(s) by brushing or washing, when performed (separate procedure) Diagnosis Code(s): --- Professional --- R19.7, Diarrhea, unspecified CPT copyright 2022 [employer] [place] [employer]. All rights reserved. The codes documented in this report are preliminary and upon all purpose clerk review may be revised to meet current compliance requirements. MD Ashley Rai, 03/07/2025 9:30:24 AM This report has been signed electronically.Ashley Vyas Number of Addenda: 0 Note Initiated On: 03/07/2025 8:58 AM Procedure Note Ashley Vyas MD - 03/07/2025 [facility] Patient Name: Sanna Corrales Procedure Date No Time: 03/07/2025 CSN : [id number] Date of : 1960 Admit Type: Outpatient Age: 65 Room: [place] [address] Gender: Female Note Status: Finalized Attending MD: Ashley Vyas , , Procedure: Colonoscopy Indications: Diarrhea Providers: Ashley Vyas Referring MD: Ashley Vyas Medicines: Monitored Anesthesia Care Complications: No immediate complications. Procedure: After I obtained informed consent, the scope was passed under direct vision. Throughout theprocedure, the patient's blood pressure, pulse, and oxygen saturations were monitored continuously. TheOLYMPUS [id number] #[id number] ADULT COLONOSCOPE was introduced through the anus and advanced to the cecum,identified by appendiceal orifice and ileocecal valve. The colonoscopy was performed without difficulty. The patient tolerated the procedure well. The qualityof the bowel preparation was good. The ileocecalvalve, appendiceal orifice, and rectum werephotographed. Findings: The entire examined colon appeared normal. Estimated Blood Loss: Estimated blood loss: none. Impression: - The entire examined colon is normal. - No specimens collected. Recommendation: - Repeat colonoscopy in 10 years for screening purposes. Procedure Code(s): --- Professional --- 37906, Colonoscopy, flexible; diagnostic, including collection of specimen(s) by brushing or washing,when performed (separate procedure) Diagnosis Code(s): --- Professional --- R19.7, Diarrhea, unspecified CPT copyright 2022 [employer] [place] [employer]. All rights reserved. The codes documented in this report are preliminary and upon all purpose clerk reviewmay be revised to meet current compliance requirements. MD Ashley Rai, 03/07/2025 9:30:24 AM This report has been signed electronically.Ashley Vyas Number of Addenda: 0 Note Initiated On: 03/07/2025 8:58 AM Ashley Vyas MD GI PROCEDURE ORDERABLES Fi nal Result PM CARDIOVASCULAR * Colonoscopy Report (03/07/2025 8:05 AM EDT) Narrative SYSTEMGENERATED, DOCUMENTATION - 03/07/2025 8:05 AM EDT This order has been auto-finalized for image and report archival in PACs. *For full report details, please reach out to your physician. This image is visible to you in MyChart.* Ashley Vyas MD IMG OR IMG ORDERABLES Tashia l Result documented in this encounter Visit Diagnoses Not on filedocumented in this encounter Administered Medications Inactive Administered Medications - up to 3 most recent administrations Medication Order MAR Action Action Date Dose Rate Site lactated ringers infusion 50 mL/hr, intravenous, Continuous, Starting on Mon03/07/25 at 0745, Pre-op, If fluid restriction is not indicated, infuse at a rate up to 5 mL/kg/hr not to exceed the total replacement volume (2 ml/kg/hr) from the time NPO status was initiated. Continued by Anesthesia 03/07/2025 9:12 AM EDT 50 mL/hr New Bag 03/07/2025 7:39 AM EDT 50 mL/hr 50 mL/hr documented in this encounter Active and Recently Administered Medications Times are shown in EDT. Continuous Medication Order 03/05/2025 03/06/2025 03/07/2025 lactated ringers infusion (CANCELED) 50 mL/hr, intravenous, Continuous, Starting on Mon03/07/25 at 0745, Pre-op, If fluid restriction is not indicated, infuse at a rate up to 5 mL/kg/hr not to exceed the total replacement volume (2 ml/kg/hr) from the time NPO status was initiated. 0739 (New Bag - Prov ider: Carmen Alvarez RN)0912 (Continued by Anesthesia - Provider: Vandana Kimble APRN-NANDO)0933 (Due: Order Ending - Provider: Automatic Transfer Provider - Comment: [Order ends at this time. Document the following action when infusion is complete: Stop Bag]) documented in this encounter Care Teams Sole Assessor Relationship Specialty Start Date End Date Jer Rizo MD [address] [facility] [address] [place] [address] PCP - General Internal Medicine 01/24/20 documented as of this encounter
--- OUTSIDE RECORDS SUMMARY | 2025-03-07 09:00 | XMS_ITS | Encounter Summary ---
Author Organization [employer] [facility] tem Address [id number] [address] [place] [address] Care Team Providers Care Ac/Dc Rewinder Name Role Phone Jer Rizo MD Primary Care Provider [phone] Reason for Visit * Auth/Cert Specialty Diagnoses / Procedures Referred By Lang t Referred To Contact Diagnoses diarrhea Procedures NV COLONOSCOPY FLX DX W/COLLJ SPEC WHEN PFRMD COLONOSCOPY DIAGNOSTIC / SCREENING Ashley Vyas MD [address] [place] [address] Phone: tel: fax: Referral ID Status Reason Start Date Expiration Date Visits Re quested Visits Authorized [id number] 1 1 Encounter Details Date Type Department Care Team (Late st Contact Info) Description 03/07/2025 9:00 AM EDT - 03/07/2025 9:30 AM EDT Surgery [facility] - Surgery [address] [place] [address] Ashley Vyas MD [address] [place] [address] COLONOSCOPY DIAGNOSTIC / SCREENING [53983 (CPT )] Surgery Details Date/Time Status Location OR Service Patient Class Case Cl ass Case Type Trauma Case? 03/07/2025 9:00 AM Posted [facility] OR [address] [place] [address] Outpatient Surgery Elective Panel 1 Procedure LRB Anes Op Region Wound Class Comments COLONOSCOPY DIAGNOSTIC / SCREENING N/A Monitored Anesthesia Care Anus Clean Contaminated Surgeon Surgeon Role Service Panel Ashley Vyas MD Primary General 1 documented in this encounter Social History Tobacco Use Types Packs/Day Years [...] Sign Reading Time Taken Comments Blood Pressure 133/72 03/07/2025 7:20 AM EDT Pulse 52 03/07/2025 7:20 AM EDT Temperature 36.4 C (97.6 F) 03/07/2025 7:20 AM EDT Respiratory Rate 18 03/07/2025 7:20 AM EDT Oxygen Saturation 94% 03/07/2025 7:20 AM EDT Inhaled Oxygen Concentration - - [...] swallowing) Questions, Problems, Concerns Preop phone number [phone] ext [phone] documented in this encounter Medications at Time [...] AND PHYSICAL INTERVAL NOTE: Sanna Corrales 1960 [id number] H&P reviewed. The patient was examined and there are no changes to the H&P. Ashley Vyas MD Source Note - Amy Clancy Estrella, SERVICE DESK AGENT-DOCTOR OF PODIATRIC MEDICINE - 02/18/2025 1:00 PM EDT Images from [...] Diagnosis Date ARDS (adult respiratory distress syndrome) ([facility]) 2013 Asthma COPD (chronic obstructive pulmonary disease) ([facility]) Diabetes mellitus type 2, controlled ([facility]) H1N1 influenza Hypertension Pneumonia Prolonged emergence from general anesthesia Requires continuous at home supplemental oxygen 3 L NC when active Sleep apnea Visual impairment glasses Past Surgical History: Procedure Laterality Date ARTHROSCOPY KNEE Right 02/04/2020 Performed by Darrel Cheek Jr., DO at [facility] BREAST SURGERY benign tumors removed, bilateral CARPAL [...] Resource Strain: High Risk (12/04/2023) Received from [facility] Overall Financial Resource Strain (CARDIA) Difficulty of Paying Living Expenses: Hard Food Insecurity: Food Insecurity Present (12/04/2023) Received from [facility] Hunger Vital Sign Worried About Running Out of Food in the Last Year: Sometimes true Ran Out of Food in the Last Year: Never true Transportation Needs: Unmet Transportation Needs (12/04/2023) Received from [facility] PRAPARE - Transportation Lack of Transportation (Medical): Yes Lack of Transportation (Non-Medical): No Physical Activity: Inactive (12/04/2023) Received from [facility] Exercise Vital Sign Days of Exercise per Week: 0 days Minutes of Exercise per Session: 0 min Stress: Stress Concern Present (12/04/2023) Received from [facility] [place] of Occupational Health - Occupational Stress Questionnaire Feeling of Stress : To some extent Social Connections: Unknown (12/04/2023) Received from [facility] Social Connection and Isolation Panel [NHANES] Frequency of Communication with Friends and Family: Once a week Frequency of Social Gatherings with Friends and Family: Not on file Attends Buddhist Services: Not on file Active Member of Clubs or Organizations: No Attends Club or Organization Meetings: Never Marital Status: Interpersonal Safety: Unknown (07/20/2023) Received from [facility] Safety & Environment Fear of Current or Ex-Partner: Not on file Emotionally Abused: Not on file Physically Abused: Not on file Sexually Abused: Not on file Physically or Sexually Abused: Not on file Housing Instability: Low Risk (12/04/2023) Received from [facility] Housing Stability Vital Sign Unable to Pay [...] patient/family/caregiver Referring and communicating with other health customer care team coach Diarrhea, unspecified type [R19.7] SUNNI SALCEDO [facility] [place] This note was created with the assistance [...] Procedure Name Priority Date/Time Associated Diagnosis Comments NV COLONOSCOPY FLX DX W/COLLJ SPEC WHEN PFRMD 03/07/2025 9:12 AM EDT diarrhea COLONOSCOPY 03/07/2025 8:58 AM EDT PROVATION COLONOSCOPY Routine 03/07/2025 8:05 AM EDT documented in this encounter Results * Colonoscopy (03/07/2025 8:58 AM EDT) 03/07/2025 8:5 8 AM EDT Narrative PM CARDIOVASCULAR - 03/07/2025 9:31 AM EDT [facility] Patient Name: Sanna Corrales Procedure Date No Time: 03/07/2025 CSN : [id number] Date of : 1960 Admit Type: Outpatient Age: 65 Room: [facility] OR 06 Gender: Female Note Status: Finalized Attending MD: Ashley Vyas , , Procedure: Colonoscopy Indications: Diarrhea Providers: Ashley Vyas Referring MD: Ashley Vyas Medicines: Monitored Anesthesia Care Complications: No immediate complications. Procedure: After I obtained informed consent, the scope was passed under direct vision. Throughout the procedure, the patient's blood pressure, pulse, and oxygen saturations were monitored continuously. The [facility] [id number] #[id number] ADULT COLONOSCOPE was introduced through the anus [...] screening purposes. Procedure Code(s): --- Professional --- 85661, Colonoscopy, flexible; diagnostic, including collection of specimen(s) by brushing or washing, when performed (separate procedure) Diagnosis Code(s): --- Professional --- R19.7, Diarrhea, unspecified CPT copyright 2022 [employer]. All rights reserved. The codes documented in this report are preliminary and upon label coder review may be revised to meet current compliance requirements. MD Ashley Rai, 03/07/2025 9:30:24 AM This report has been signed electronically.Ashley Vyas Number of Addenda: 0 Note Initiated On: 03/07/2025 8:58 AM Procedure Note Ashley Vyas MD - 03/07/2025 [facility] Patient Name: Sanna Corrales Procedure Date No Time: 03/07/2025 CSN : [id number] Date of : 1960 Admit Type: Outpatient Age: 65 Room: [facility] OR 06 Gender: Female Note Status: Finalized Attending MD: Ashley Vyas , , Procedure: Colonoscopy Indications: Diarrhea Providers: Ashley Vyas Referring MD: Ashley Vyas Medicines: Monitored Anesthesia Care Complications: No immediate complications. Procedure: After I obtained informed consent, the scope was passed under direct vision. Throughout theprocedure, the patient's blood pressure, pulse, and oxygen saturations were monitored continuously. [facility] CF-[id number] #[id number] ADULT COLONOSCOPE was introduced through the anus [...] screening purposes. Procedure Code(s): --- Professional --- 17505, Colonoscopy, flexible; diagnostic, including collection of specimen(s) by brushing or washing,when performed (separate procedure) Diagnosis Code(s): --- Professional --- R19.7, Diarrhea, unspecified CPT copyright 2022 [employer]. All rights reserved. The codes documented in this report are preliminary and upon label coder reviewmay be revised to meet current compliance requirements. MD Ashley Rai, 03/07/2025 9:30:24 AM This report has been signed electronically.Ashley Vyas Number of Addenda: 0 Note Initiated On: 03/07/2025 8:58 AM us Ashley Vyas MD GI PROCEDURE ORDERABLES Fi nal Result PM CARDIOVASCULAR * Colonoscopy Report (03/07/2025 8:05 AM EDT) Narrative SYSTEMGENERATED, DOCUMENTATION - 03/07/2025 8:05 AM EDT This order has been auto-finalized for image and report archival in PACs. *For full report details, please reach out to your physician. This image is visible to you in MyChart.* us Ashley Vyas MD IMG OR IMG ORDERABLES Tashia cantu Result documented in this encounter Visit Diagnoses [...] Bag]) documented in this encounter Care Teams Ac/Dc Rewinder Relationship Specialty Start Date End Date Jer Rizo MD [address] [facility], [facility] [address] [place] [address] PCP - General Internal Medicine 01/24/20 documented as of this encounter
--- OUTSIDE RECORDS SUMMARY | 2025-03-07 09:12 | XMS_ITS | Encounter Summary ---
Author Organization [employer] [facility] tem Address [id number] [address] [place] [address] Care Team Providers Care Registered Nurse Surgical Services Name Role Phone Jer Rizo MD Primary Care Provider [phone] Reason for Visit * Auth/Cert Specialty Diagnoses / Procedures Referred By Lang t Referred To Contact Diagnoses diarrhea Procedures SD COLONOSCOPY FLX DX W/COLLJ SPEC WHEN PFRMD COLONOSCOPY DIAGNOSTIC / SCREENING Ashley yVas MD [address] [place] [address] Phone: tel: fax: Referral ID Status Reason Start Date Expiration Date Visits Re quested Visits Authorized [id number] 1 1 Encounter Details Date Type Department Care Team (Late st Contact Info) Description 03/07/2025 9:12 AM EDT Anesthesia Event [facility] - Surgery [address] [place] [address] Dane Aleman MD [address] [place] [address] Anesthesia Record Procedure Summary Procedure Name Responsible Anesthesiologist Anesthesia Start Time Anesthesia Stop Time COLONOSCOPY DIAGNOSTIC / SCREENING (Anus) Dane Aleman MD 03/07/25 0903/07/25927 Events Date Time Event Comment 03/07/2025 0828 0912 An Start 0912 An Start Data 0914 An Induction The patient was reevaluated immediately before moderate or deep sedation use and before anesthesia induction. 0915 Patient Ready for Surgeon 0916 Position 0928 an stop data 0928 Transport/Transfer From the OR 0928 Handoff to RN Transported to :Phase II, Spontaneous Ventilation, O2 per Simple mask @ 6 LPM Pt. Tolerated procedure well, vital signs stable and document on nursing record Care transferred to receiving RN 0928 An Stop Meds Name Total propofol (DIPRIVAN) injection 70 mg lidocaine (XYLOCAINE) injection 2% 50 mg lactated ringers infusion 0 mL * Agents No agents on file. * Blood No blood administrations on file. Lines, Drains, and Airways Type Details Placement Removal Wound 02/04/20; 1321; Inci igor; Knee; Right; xeroform, abd, moe wrap 02/04/20 1321 by Suha Casillas RN Wound 03/07/25; 0718; Inci igor; Rectum; MOTOR MECHANIC;Intact 03/07/25 0718 by James Olivier RN Peripheral IV Placement Date: 02/26 ; Placement Time: 732; Catheter Size: 22 G; Orientation: Posterior, Right; Location: Hand; Site Prep: Chlorhexadine and isopropyl alcohol; Technique: Anatomical landmarks; Inserted by: Darya ALBERT; Insertion Attempts: 1; Patient Tolerance: Tolerated well; Removal Date: 03/07/25; Removal Time: 1000 03/07/25 0733 by Carmen Alvarez RN 03/07/25 1000 by Lori Montes RN documented in this encounter Social History Tobacco [...] on file documented as of this encounter OR Notes * Anesthesia Postprocedure Evaluation - Dane Aleman MD - 03/07/2025 1:02 PM EDT [facility] Summary Date: 03/07/25 [facility] [address] [place] [address] SURGERY Anesthesia Start: 911 Anesthesia Stop: 927 Procedure: COLONOSCOPY DIAGNOSTIC / SCREENING (Anus) Diagnosis: (diarrhea) Surgeons: Ashley Vyas MD Responsible Provider: Dane Aleman MD Anesthesia Type: MAC ASA Status: 3 Vitals: 03/07/25 0947 BP: 115/84 Pulse: 60 Resp: 11 Temp: SpO2: 96% Patient Evaluated: PACU Patient Participation: Complete - patient participated Patient Level of Consciousness: Awake Pain Score: 1 Pain Management: Adequate Airway Patency: Patent Anesthetic Complications: No Cardiovascular Status: Hemodynamically Stable Respiratory Status: Stable/Baseline, Nonlabored Ventilation and Room Air Post-op Hydration: Euvolemic Final Anesthesia Type: MAC Does patient meet criteria to D/C from PACU?: Yes Is patient sedated pharmacologically at PACU D/C?: No No notable events documented. * Anesthesia Preprocedure Evaluation - Dane Aleman MD - 03/07/2025 8:27 AM EDT Images from the original note were not included. ANESTHESIA PRE-PROCEDURE EVALUATION [employer] Procedure(s): COLONOSCOPY DIAGNOSTIC / SCREENING ANESTHESIA PHYSICAL EXAM Patient summary reviewed and nursing notes reviewed. Airway Mallampati: II TM distance: >3 FB Neck ROM: full Patient is not intubated Patient does not have tracheostomy Dental Comment: Missing teeth, poor dentition. Pulmonary : exam normal Cardiovascular : exam normal ECG reviewed Neuro Abdominal : exam normal Other Findings ANESTHESIA PLAN ASA 3 Anesthesia Type: MAC Induction: Intravenous Anesthetic risks, plan and alternatives discussed with Patient and Spouse. Use of blood products discussed with Patient and Spouse who consented to blood products. Plan discussed with Attending and DIMENSIONAL INSPECTOR. Airway Management: Nasal Cannula and Awake/Sedated Post op Pain Management: IV Analgesics Transfer to Phase II PONV: Intermediate Risk Total Score: 2 Female patient Non-smoker Criteria that do not apply: History of PONV and/or Motion Sickness Intended opioid administration RCRI: Low Risk: Score of 0 = 3.9% (2.8-5.4%) Risk of major cardiac event Score of 1 = 6.0% (4.9-7.4%) Risk of major cardiac event Total Score: 1 Ischemic Heart Disease Criteria that do not apply: Cerebrovascular Disease Congestive Heart Failure Elevated Risk Surgery Pre-operative Treatment with Insulin Pre-operative Creatinine >2 mg/dL / 176.8 mol/L There is no problem list on file for this patient. documented in this encounter Plan of Treatment [...] 7:39 AM EDT 50 mL/hr 50 mL/hr lidocaine (XYLOCAINE) 20 mg/mL (2 %) injection intravenous, As needed, Starting on Mon03/07/25 at 0914, Anesthesia Intra-op Given 03/07/2025 9:14 AM EDT 50 mg propofoL (DIPRIVAN) infusion intravenous, As needed, Starting on Mon03/07/25 at 0914, Anesthesia Intra-op Given 03/07/2025 9:21 AM EDT 20 mg Given 03/07/2025 9:14 AM EDT 50 mg documented in this encounter Care Teams Registered Nurse Surgical Services Relationship Specialty Start Date End Date Jer Rizo MD [facility] [address] [place] [address] PCP - General Internal Medicine 01/24/20 documented as of this encounter
--- OUTSIDE RECORDS SUMMARY | 2025-03-12 14:04 | XMS_ITS | Encounter Summary ---
Author Organization [facility] Address [address] [facility] [place] [address] Care Team Providers Care Geospatial Specialist Name Role Phone Jer Rizo MD Primary Care Provider [phone] Jer Rizo MD Unavailable [phone] Aggie Gallardo SALES ARCHITECT-DAIRY CLERK Unavailable Jer Rizo MD Unavailable [phone] Madyson Figueroa RN Unavailable [phone] Braeden Dunham LPC Unavailable Unavailable Aggie Gallardo SALES ARCHITECT-DAIRY CLERK Unavailable Encounter Details Date Type Department Care Team (Late st Contact Info) Description 07/11/2023 Orders Only [facility] [place] [facility] [address] [facility] [address] [place] [address] A, Unknown Practice [address] [place] [address] Social History Tobacco Use Types Packs/Day Years [...] Care Team (Late st Contact Info) Description 03/13/2025 1:30 PM EDT Office Visit [facility] [place] [facility] [address] [facility] [address] [place] [address] Aggie Gallardo, SALES ARCHITECT-DAIRY CLERK [address] [facility] [address] [place] [address] 03/20/2025 3:50 PM EDT Office Visit [facility] [address] [facility] [address] [place] [address] Tip Morillo DPYared [address] [facility] 5 [place] [address] 03/21/2025 11:00 AM EDT Office Visit [facility] [place] [facility] 112 [facility] [address] [place] [address] Erin Tariq PA [address] [facility] [address] [place] [address] documented as of this encounter Procedures Procedure [...] documented as of this encounter Care Teams Geospatial Specialist Relationship Specialty Start Date End Date Jer Rizo MD [address] [facility] [address] [place] [address] PCP - General Internal Medicine 01/03/23 Jer Rizo MD [address] [facility] [address] [place] [address] PCP - Devoted 05/29/23 05/28/24 Jer Rizo MD [address] [facility] [address] [place] [address] PCP - Sari HERNANDEZ 05/29/24 11/25/24 Aggie Gallardo, SALES ARCHITECT-DAIRY CLERK [address] [facility] [address] [place] [address] PCP - Sari HERNANDEZ 11/26/24 Aggie Gallardo, SALES ARCHITECT-DAIRY CLERK [address] [facility] [address] [place] [address] Nurse Practitioner Psychiatry 06/13/24 Madyson Figueroa, BETY [address] [facility] [address] [place] [address] Registered Nurse Family Medicine 08/14/24 03/03/25 Braeden Dunham LPC Therapist Behavioral Health 11/25/24 documented as of this encounter
--- OUTSIDE RECORDS SUMMARY | 2025-03-12 14:04 | XMS_ITS | Encounter Summary ---
Author Organization [facility] Address [address] [facility] [place] [address] Care Team Providers Care Gi Physician Name Role Phone Jer Rizo MD Primary Care Provider Aggie Gallardo CHRISTMAS TREE FARM MANAGER-GUM WORKER Unavailable Jer Rizo MD Unavailable [phone] Madyson Figueroa RN Unavailable [phone] Bradeen Dunham LPC Unavailable Unavailable Aggie Gallardo CHRISTMAS TREE FARM MANAGER-GUM WORKER Unavailable Encounter Details Date Type Department Care Team (Late st Contact Info) Description 08/14/2024 Abstract [facility] [place] [facility] [address] [facility] [address] [place] [address] Jer Rizo MD 112 [facility] 110 [place] [address] Social History Tobacco Use Types [...] Sometimes 12/04/2023 Social Connection and Isolation Panel Answer Date Recorded In a typical week, how [...] Recorded Patient Health Questionnaire-2 Score 2 07/30/2024 [facility] of Occupat ional Health - Occupational Stress [...] any time in the past 12 m [facility], were you homeless or living in [...] [facility] [place] [facility] [address] [facility] [address] [place] [address] Aggie Gallardo, CHRISTMAS TREE FARM MANAGER-GUM WORKER [address] [facility] 160 [place] [address] 03/20/2025 3:50 PM EDT Office Visit [facility] [address] [facility] [address] [place] [address] Tip Morillo DPM 3[address] [facility] 5 [place] [address] 03/21/2025 11:00 AM EDT Office Visit [facility] [place] [facility] [address] [facility] [address] [place] [address] Erin Tariq PA [address] [facility] [address] [place] [address] documented as of this encounter Goals Goal [...] documented as of this encounter Care Teams Gi Physician Relationship Specialty Start Date End Date Jer Rizo MD [address] [facility] [address] [place] [address] PCP - General Internal Medicine 01/03/23 Jer Rizo MD [address] [facility] [address] [place] [address] PCP - Sari HERNANDEZ 05/29/24 11/25/24 Aggie Gallardo, CHRISTMAS TREE FARM MANAGER-GUM WORKER [address] [facility] [address] [place] [address] PCP - Sari HERNANDEZ 11/26/24 Aggie Gallardo, CHRISTMAS TREE FARM MANAGER-GUM WORKER [address] [facility] [address] [place] [address] Nurse Practitioner Psychiatry 06/13/24 Madyson Figueroa, BETY [address] Jose Armando [address] [place] [address] Registered Nurse Family Medicine 08/14/24 03/03/25 Braeden Dunham LPC Therapist Behavioral Health 11/25/24 documented as of this encounter
--- OUTSIDE RECORDS SUMMARY | 2025-03-12 14:04 | XMS_ITS | Encounter Summary ---
Author Organization [facility] Address [address] [facility] [place] [address] Care Team Providers Care Psychiatric Cns Name Role Phone Jer Rizo MD Primary Care Provider [phone] Aggie Gallardo PROJECT BUYER-HEATING AND COOLING SYSTEMS ENGINEER Unavailable Jer Rizo MD Unavailable [phone] Madyson Figueroa RN Unavailable [phone] Braeden Dunham LPC Unavailable Unavailable Aggie Gallardo PROJECT BUYER-HEATING AND COOLING SYSTEMS ENGINEER Unavailable Encounter Details Date Type Department Care Team (Late st Contact Info) Description 10/02/2024 Abstract [facility] [place] [facility] 112 [facility] [address] [place] [address] Jer Rizo MD 112 [facility] 110 [place] [address] Social History Tobacco Use Types [...] Recorded Patient Health Questionnaire-2 Score 2 07/30/2024 [facility] of Occupat ional Health - [...] any time in the past 12 m [facility], were you homeless or [...] [facility] [place] [facility] [address] [facility] 160 [place] [address] Aggie Gallardo, PROJECT BUYER-HEATING AND COOLING SYSTEMS ENGINEER [address] [facility] 160 [place] [address] 03/20/2025 3:50 PM EDT Office Visit [facility] [address] JOSE ARMANDO [address] [place] [address] Tip Morillo DPM 3006 [facility] 5 [place] [address] 03/21/2025 11:00 AM EDT Office Visit [facility] [place] [facility] [address] [facility] 110 [place] [address] Erin Tariq PA [address] [place] [address] documented as of this encounter Goals Goal [...] documented as of this encounter Care Teams Psychiatric Cns Relationship Specialty Start Date End Date Jer Rizo MD [address] [facility] [address] [place] [address] PCP - General Internal Medicine 01/03/23 Jer Rizo MD [address] [facility] 110 [place] [address] PCP - Sari HERNANDEZ 05/29/24 11/25/24 Aggie Gallardo, PROJECT BUYER-HEATING AND COOLING SYSTEMS ENGINEER [address] [facility] 160 [place] [address] PCP - Sari HERNANDEZ 11/26/24 Aggie Gallardo, PROJECT BUYER-HEATING AND COOLING SYSTEMS ENGINEER 112 [facility] 160 [place] [address] Nurse Practitioner Psychiatry 06/13/24 Madyson Figueroa, BETY [address] [facility] [address] [place] [address] Registered Nurse Family Medicine 08/14/24 03/03/25 Braeden Dunham LPC Therapist Behavioral Health 11/25/24 documented as of this encounter
--- OUTSIDE RECORDS SUMMARY | 2025-03-12 14:05 | XMS_ITS | Encounter Summary ---
Author Organization [facility] Address [address] [facility] [place] [address] Care Team Providers Care Junior Network Administrator Name Role Phone Jer Rizo MD Primary Care Provider [phone] Jer Rizo MD Unavailable [phone] Aggie Gallardo SOURCING CONSULTANT-MICROSOFT DYNAMICS DEVELOPER Unavailable Jer Rizo MD Unavailable [phone] Madyson Figueroa RN Unavailable [phone] Braeden Dunham LPC Unavailable Unavailable Aggie Gallardo SOURCING CONSULTANT-MICROSOFT DYNAMICS DEVELOPER Unavailable Encounter Details Date Type Department Care Team (Late st Contact Info) Description 06/27/2023 Abstract [facility] [place] [facility] 112 [facility] 110 [place] [address] Jer Rizo MD 112 [facility] 110 [place], [place] [id number] Social History Tobacco Use Types Packs/Day Years [...] [facility] [place] [facility] [address] JOSE ARMANDO 160 [place] [address] Aggie Gallardo, SOURCING CONSULTANT-MICROSOFT DYNAMICS DEVELOPER [address] Jose Armando 160 [place] [address] 03/20/2025 3:50 PM EDT Office Visit [facility] [address] JOSE ARMANDO 120 [place] [address] Tip Morillo, DPM 3006 [facility] 5 [place] [address] 03/21/2025 11:00 AM EDT Office Visit [facility] [place] [facility] [address] OJSE ARMANDO 110 [place] [address] Erin Tariq PA [address] Jose Armando 110 [place] [address] documented as of this encounter Visit Diagnoses Not on filedocumented in this encounter Additional Health Concerns Assessment Noted Time PHQ-9 Depression Total Score: 20 023 12:00 PM EDT documented as of this encounter Care Teams Junior Network Administrator Relationship Specialty Start Date End Date Jer Rizo MD [address] Jose Armando 110 [place] [address] PCP - General Internal Medicine 01/03/23 Jer Rizo MD [address] Jose Armando 110 [place] [address] PCP - Devoted 05/29/23 05/28/24 Jer Rizo MD [address] Jose Armando 110 [place] [address] PCP - Sari HERNANDEZ 05/29/24 11/25/24 Aggie Gallardo APRN-MICROSOFT DYNAMICS DEVELOPER [address] [address] PCP - Sari HERNANDEZ 11/26/24 Aggie Gallardo APRN-MICROSOFT DYNAMICS DEVELOPER [address] [address] Nurse Practitioner Psychiatry 06/13/24 Madyson Figueroa RN [address] [facility] 230 [place] [address] Registered Nurse Family Medicine 08/14/24 03/03/25 Braeden Dunham LPC Therapist Behavioral Health 11/25/24 documented as of this encounter
--- OUTSIDE RECORDS SUMMARY | 2025-03-12 14:05 | XMS_ITS | Encounter Summary ---
Author Organization [facility] Address [address] [facility] [place] [address] Care Team Providers Care Fax Machine Operator Name Role Phone Jer Rizo MD Primary Care Provider [phone] Aggie Gallardo CATTLE DEHORNER-SPRAY PAINTING MACHINE OPERATOR Unavailable Jer Rizo MD Unavailable Madyson Figueroa RN Unavailable [phone] Braeden Dunham LPC Unavailable Unavailable Aggie Gallardo CATTLE DEHORNER-SPRAY PAINTING MACHINE OPERATOR Unavailable Reason for Visit * Reason Comments Med Change Request Encounter Details Date Type Department Care Team (Late st Contact Info) Description 10/04/2024 Refill [facility] 112 [facility] 160 [place] [address] Aggie Gallardo, CATTLE DEHORNER-SPRAY PAINTING MACHINE OPERATOR 112 [facility] 160 [place] [address] JENN (generalized anxiety disorder) Social History Tobacco [...] Recorded Patient Health Questionnaire-2 Score 2 07/30/2024 [facility] - [...] in the past 12 m [facility], were you homeless or living in [...] [facility] [place] [facility] [address] [facility] 160 [place] [address] Aggie Gallardo, CATTLE DEHORNER-SPRAY PAINTING MACHINE OPERATOR [address] Jose Armando [address] [place] [address] 03/20/2025 3:50 PM EDT Office Visit [facility] [address] JOSE ARMANDO [address] [place] [address] Tip Morillo DPM 3006 [facility] 5 [place] [address] 03/21/2025 11:00 AM EDT Office Visit [facility] 112 [facility] 110 [place] [address] Erin Tariq PA 112 [facility] 110 [place] [address] documented as of this encounter Goals Goal Patient Goal Type Associated Problems Recent Progress Patient-Stated? Author Help patient manage antidepressant medication Care Plan Patient on antidepressant monitoring plan No Francia Gannon MA documented as of this encounter Visit Diagnoses Diagnosis JENN (generalized anxiety disorder) Generalized anxiety disorder Diabetes 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, unspecified whether correction insulin use (HCC)- Primary Pain due to onychomycosis of toenails of both feet Venous insufficiency Unspecified venous (peripheral) insufficiency Xerosis cutis Other specified disease of sebaceous glands documented in this encounter Additional Health Concerns Active Problems Noted Date Diagnosed Date Patient on antidepressant monitoring plan 2023 Assessment Noted Time PHQ-9 Depression Total Score: 15 025 12:54 PM EST documented as of this encounter Care Teams Fax Machine Operator Relationship Specialty Start Date End Date Jer Rizo MD 112 [facility] 110 [place] [address] PCP - General Internal Medicine 01/03/23 Jer Rizo MD 112 [facility] 110 [place] [address] PCP - Sari HERNANDEZ 05/29/24 11/25/24 Aggie Gallardo APRN-SPRAY PAINTING MACHINE OPERATOR 112 [facility] 160 [place] [address] PCP - Sari HERNANDEZ 11/26/24 Aggie Gallardo APRN-SPRAY PAINTING MACHINE OPERATOR 112 [facility] 160 [place] [address] Nurse Practitioner Psychiatry 06/13/24 Madyson Figueroa, BETY [address] [facility] 230 [place] [address] Registered Nurse Family Medicine 08/14/24 03/03/25 Braeden Dunham LPC Therapist Behavioral Health 11/25/24 documented as of this encounter
--- OUTSIDE RECORDS SUMMARY | 2025-03-12 14:05 | XMS_ITS | Encounter Summary ---
Author Organization [facility] Address [address] [facility] [place] [address] Care Team Providers Care Biology Faculty Member Name Role Phone Jer Rizo MD Primary Care Provider [phone] Aggie Gallardo CORPORATE STATISTICAL FINANCIAL ANALYST-COP BREAKER Unavailable Jer Rizo MD Unavailable [phone] Madyson Figueroa RN Unavailable [phone] Braeden Dunham LPC Unavailable Unavailable Aggie Gallardo CORPORATE STATISTICAL FINANCIAL ANALYST-COP BREAKER Unavailable Encounter Details Date Type Department Care Team (Late st Contact Info) Description 10/31/2024 Abstract [facility] [place] [facility] 112 [facility] 110 [place] [address] Jer Rizo MD 112 [facility] 110 [place] [address] Social History Tobacco Use Types [...] and Family Not on file 12/04/2023 Attends [facility] Not on file 12/03 Do you [...] Recorded Patient Health Questionnaire-2 Score 0 10/23/2024 [facility] Occupat ional Health - Occupational [...] any time in the past 12 m [facility], were you homeless or living [...] [facility] [place] [facility] [address] [facility] 160 [place] [address] Aggie Gallardo, CORPORATE STATISTICAL FINANCIAL ANALYST-COP BREAKER [address] [facility] 160 [place] [address] 03/20/2025 3:50 PM EDT Office Visit [facility] [address] JOSE ARMANDO 120 [place] [address] Tip Morillo DPM 3006 [facility] 5 [place] [address] 03/21/2025 11:00 AM EDT Office Visit [facility] [place] [facility] [address] [facility] 110 [place] [address] Erin Tariq PA [address] Jose Armando 110 [place] [address] documented as of this encounter Goals Goal [...] documented as of this encounter Care Teams Biology Faculty Member Relationship Specialty Start Date End Date Jer Rizo MD 112 [facility] 110 [place] [address] PCP - General Internal Medicine 01/03/23 Jer Rizo MD [address] [facility] 110 [place] [address] PCP - Sari HERNANDEZ 05/29/24 11/25/24 Aggie Gallardo, CORPORATE STATISTICAL FINANCIAL ANALYST-COP BREAKER [address] [facility] 160 [place] [address] PCP - Sari HERNANDEZ 11/26/24 Aggie Gallardo, CORPORATE STATISTICAL FINANCIAL ANALYST-COP BREAKER [address] [facility] 160 [place] [address] Nurse Practitioner Psychiatry 06/13/24 Madyson Figueroa, BETY [address] [facility] 230 [place] [address] Registered Nurse Family Medicine 08/14/24 03/03/25 Braeden Dunham LPC Therapist Behavioral Health 11/25/24 documented as of this encounter
--- OUTSIDE RECORDS SUMMARY | 2025-03-12 14:05 | XMS_ITS | Encounter Summary ---
Author Organization [facility] Address [address] [facility] [place] [address] Care Team Providers Care Sales And Marketing Administrator Name Role Phone Jer Rizo MD Primary Care Provider Aggie Gallardo DIESEL POWERPLANT MECHANIC HELPER-CARDIOLOGY PHYSICIAN ASSISTANT Unavailable Jer Rizo MD Unavailable [phone] Madyson Figueroa RN Unavailable [phone] Braeden Dunham LPC Unavailable Unavailable Aggie Gallardo DIESEL POWERPLANT MECHANIC HELPER-CARDIOLOGY PHYSICIAN ASSISTANT Unavailable Encounter Details Date Type Department Care Team (Late st Contact Info) Description 10/16/2024 Abstract [facility] [place] [facility] 112 [facility] 110 [place] [address] Jer Rizo MD 112 [facility] 110 [place] [address] Social History Tobacco Use Types [...] and Family Not on file 12/04/2023 Attends [facility] Not on file 12/03 Do you [...] Recorded Patient Health Questionnaire-2 Score 2 07/30/2024 [facility] Occupat ional Health [...] any time in the past 12 m [facility], were you homeless or living [...] [facility] [place] [facility] [address] [facility] 160 [place] [address] Aggie Gallardo, DIESEL POWERPLANT MECHANIC HELPER-CARDIOLOGY PHYSICIAN ASSISTANT [address] [place] [address] [facility] 160 [place] [address] 03/20/2025 3:50 PM EDT Office Visit [facility] [address] JOSE ARMANDO 120 [place] [address] Tip Morillo DPM 3006 [facility] 5 [place] [address] 03/21/2025 11:00 AM EDT Office Visit [facility] [place] [facility] [address] [facility] 110 [place] [address] Erin Tariq PA [address] [place] [address] Jose Armando 110 [place] [address] documented as of this encounter Goals Goal [...] documented as of this encounter Care Teams Sales And Marketing Administrator Relationship Specialty Start Date End Date Jer Rizo MD [address] [place] [facility] 110 [place] [address] PCP - General Internal Medicine 01/03/23 Jer Rizo MD [address] [facility] 110 [place] [address] PCP - Sari HERNANDEZ 05/29/24 11/25/24 Aggie Gallardo, DIESEL POWERPLANT MECHANIC HELPER-CARDIOLOGY PHYSICIAN ASSISTANT [address] [facility] 160 [place] [address] PCP - Sari HERNANDEZ 11/26/24 Aggie Gallardo, DIESEL POWERPLANT MECHANIC HELPER-CARDIOLOGY PHYSICIAN ASSISTANT [address] [facility] 160 [place] [address] Nurse Practitioner Psychiatry 06/13/24 Madyson Figueroa, BETY [address] [facility] 230 [place] [address] Registered Nurse Family Medicine 08/14/24 03/03/25 Braeden Dunham LPC Therapist Behavioral Health 11/25/24 documented as of this encounter
--- OUTSIDE RECORDS SUMMARY | 2025-03-12 14:05 | XMS_ITS | Encounter Summary ---
Author Organization [facility] Address [address] [facility] [place] [address] Care Team Providers Care Tool Repairer Bench Name Role Phone Jer Rizo MD Primary Care Provider [phone] Aggie Gallardo SYSTEM TECHNOLOGIST-RETAIL FIELD MERCHANDISER Unavailable Jer Rizo MD Unavailable [phone] Madyson Figueroa RN Unavailable [phone] Braeden Dunham LPC Unavailable Unavailable Aggie Gallardo SYSTEM TECHNOLOGIST-RETAIL FIELD MERCHANDISER Unavailable Encounter Details Date Type Department Care Team (Late st Contact Info) Description 10/31/2024 Abstract [facility] [place] [facility] 112 [facility] 110 [place] [address] Jer Rizo MD 112 [facility] 110 [place] [address] Social History Tobacco Use Types [...] any clubs o r organizations such as mormon groups, unions, fraternal or athletic groups, or [...] Recorded Patient Health Questionnaire-2 Score 0 10/23/2024 [facility] Occupat ional Health - Occupational [...] [facility] [place] [facility] [address] [facility] 160 [place] [address] Aggie Gallardo, SYSTEM TECHNOLOGIST-RETAIL FIELD MERCHANDISER [address] [facility] 160 [place] [address] 03/20/2025 3:50 PM EDT Office Visit [facility] [address] JOSE ARMANDO 120 [place] [address] Tip Morillo DPM [address] [facility] 5 [place] [address] 03/21/2025 11:00 AM EDT Office Visit [facility] [place] [facility] [address] [facility] 110 [place] [address] Erin Tariq PA [address] Jose Armando 110 [place] [address] documented as of this encounter Goals Goal [...] documented as of this encounter Care Teams Tool Repairer Bench Relationship Specialty Start Date End Date Jer Rizo MD 112 [facility] [facility] 110 [place] [address] PCP - General Internal Medicine 01/03/23 Jer Rizo MD 112 [facility] 110 [place] [address] PCP - Sari HERNANDEZ 05/29/24 11/25/24 Aggie Gallardo, SYSTEM TECHNOLOGIST-RETAIL FIELD MERCHANDISER [address] [facility] 160 [place] [address] PCP - Sari HERNANDEZ 11/26/24 Aggie Gallardo, SYSTEM TECHNOLOGIST-RETAIL FIELD MERCHANDISER [address] [facility] 160 [place] [address] Nurse Practitioner Psychiatry 06/13/24 Madyson Figueroa, BETY [address] [facility] 230 [place] [address] Registered Nurse Family Medicine 08/14/24 03/03/25 Braeden Dunham LPC Therapist Behavioral Health 11/25/24 documented as of this encounter
--- OUTSIDE RECORDS SUMMARY | 2025-03-12 14:05 | XMS_ITS | Encounter Summary ---
Author Organization [facility] Address [address] [facility] [place] [address] Care Team Providers Care Train Operations Supervisor Name Role Phone Jer Rizo MD Primary Care Provider [phone] Aggie Gallardo SOLE SCRAPER-MACHINE SHOP WORKER Unavailable Jer Rizo MD Unavailable [phone] Madyson Figueroa RN Unavailable [phone] Braeden Dunham LPC Unavailable Unavailable Aggie Gallardo SOLE SCRAPER-MACHINE SHOP WORKER Unavailable Encounter Details Date Type Department Care Team (Late st Contact Info) Description 11/07/2024 Abstract [facility] [place] [facility] 112 [facility] 110 [place] [address] Jer Rizo MD 112 [facility] 110 [place] [address] Social History Tobacco Use Types [...] any clubs o r organizations such as jainism groups, unions, fraternal or athletic groups, or [...] Recorded Patient Health Questionnaire-2 Score 0 10/23/2024 [facility] Occupat ional Health - Occupational [...] the past 12 m [facility], were you homeless or living in [...] [facility] [facility] [address] [facility] 160 [place] [address] Aggie Gallardo, SOLE SCRAPER-MACHINE SHOP WORKER [address] [facility] 160 [place] [address] 03/20/2025 3:50 PM EDT Office Visit [facility] [address] JOSE ARMANDO 120 [place] [address] Tip Morillo DPM 3006 [facility] 5 [place] [address] 03/21/2025 11:00 AM EDT Office Visit [facility] [place] [facility] [address] [facility] 110 [place] [address] Erin Tariq PA [address] Jose Armando 110 [place] [address] documented as of this encounter Goals Goal [...] documented as of this encounter Care Teams Train Operations Supervisor Relationship Specialty Start Date End Date Jer Rizo MD [address] [facility] 110 [place] [address] PCP - General Internal Medicine 01/03/23 Jer Rizo MD [address] [facility] 110 [place] [address] PCP - Sari HERNANDEZ 05/29/24 11/25/24 Aggie Gallardo, SOLE SCRAPER-MACHINE SHOP WORKER [address] [facility] 160 [place] [address] PCP - Sari HERNANDEZ 11/26/24 Aggie Gallardo, SOLE SCRAPER-MACHINE SHOP WORKER [address] [facility] 160 [place] [address] Nurse Practitioner Psychiatry 06/13/24 Madyson Figueroa, BETY [address] [facility] 230 [place] [address] Registered Nurse Family Medicine 08/14/24 03/03/25 Braeden Dunham LPC Therapist Behavioral Health 11/25/24 documented as of this encounter
--- OUTSIDE RECORDS SUMMARY | 2025-03-12 14:05 | XMS_ITS | Encounter Summary ---
Author Organization [facility] Address [address] [facility] [place] [address] Care Team Providers Care It Project Coordinator Name Role Phone Jer Rizo MD Primary Care Provider [phone] Aggie Gallardo GLASS FORMING ENGINEER-SENIOR SOLUTIONS ARCHITECT Unavailable Jer Rizo MD Unavailable [phone] Madyson Figueroa RN Unavailable [phone] Braeden Dunham LPC Unavailable Unavailable Aggie Gallardo GLASS FORMING ENGINEER-SENIOR SOLUTIONS ARCHITECT Unavailable Encounter Details Date Type Department Care Team (Late st Contact Info) Description 11/06/2024 Abstract [facility] [place] [facility] 112 [facility] 110 [place] [address] Jer Rizo MD 112 [facility] 110 [place] [address] Social History Tobacco Use Types [...] any clubs o r organizations such as druze groups, unions, fraternal or athletic groups, or [...] Recorded Patient Health Questionnaire-2 Score 0 10/23/2024 [facility] of Occupat ional Health [...] [facility] [place] [facility] [address] [facility] 160 [place] [address] Aggie Gallardo, GLASS FORMING ENGINEER-SENIOR SOLUTIONS ARCHITECT [address] [facility] 160 [place] [address] 03/20/2025 3:50 PM EDT Office Visit [facility] [address] JOSE ARMANDO 120 [place] [address] Tip Morillo DPM 3006 [facility] 5 [place] [address] 03/21/2025 11:00 AM EDT Office Visit [facility] [place] [facility] [address] [facility] 110 [place] [address] Erin Tariq PA [address] Jose Armando 110 [place] [address] documented as of this encounter Goals Goal [...] documented as of this encounter Care Teams It Project Coordinator Relationship Specialty Start Date End Date Jer Rizo MD [address] [place] [facility] 110 [place] [address] PCP - General Internal Medicine 01/03/23 Jer Rizo MD [address] [place] [facility] 110 [place] [address] PCP - Sari HERNANDEZ 05/29/24 11/25/24 Aggie Gallardo, GLASS FORMING ENGINEER-SENIOR SOLUTIONS ARCHITECT [address] [place] [facility] 160 [place] [address] PCP - Sari HERNANDEZ 11/26/24 Aggie Gallardo, GLASS FORMING ENGINEER-SENIOR SOLUTIONS ARCHITECT [address] [place] [facility] 160 [place] [address] Nurse Practitioner Psychiatry 06/13/24 Madyson Figueroa, BETY [address] [facility] 230 [place] [address] Registered Nurse Family Medicine 08/14/24 03/03/25 Braeden Dunham LPC Therapist Behavioral Health 11/25/24 documented as of this encounter
--- OUTSIDE RECORDS SUMMARY | 2025-03-12 14:05 | XMS_ITS | Encounter Summary ---
Author Organization [facility] Address [address] [facility] [place] [address] Care Team Providers Care Sample Card Maker Name Role Phone Jer Rizo MD Primary Care Provider [phone] Jer Rizo MD Unavailable [phone] Aggie Gallardo HEAD OF SALES PROMOTION-SCHOOL PHOTOGRAPH EDITOR Unavailable Jer Rizo MD Unavailable [phone] Madyson Figueroa RN Unavailable [phone] Braeden Dunham LPC Unavailable Unavailable Aggie Gallardo HEAD OF SALES PROMOTION-SCHOOL PHOTOGRAPH EDITOR Unavailable Encounter Details Date Type Department Care Team (Late st Contact Info) Description 08/03/2023 Abstract [facility] [place] [facility] 112 [facility] 110 [place] [address] Jer Rizo MD 112 [facility] 110 [place], [place] [address] Social History Tobacco Use Types Packs/Day Years [...] [address] JOSE ARMANDO 160 [place] [address] Aggie Gallardo, HEAD OF SALES PROMOTION-SCHOOL PHOTOGRAPH EDITOR [address] Jose Armando 160 [place] [address] 03/20/2025 3:50 PM EDT Office Visit [facility] [address] JOSE ARMANDO 120 [place] [address] Tip Morillo, DPM 3006 [facility] 5 [place] [address] 03/21/2025 11:00 AM EDT Office Visit [facility] [place] [facility] [address] JOSE ARMANDO 110 [place] [address] Erin Tariq PA [address] Jose Armando 110 [place] [address] documented as of this encounter Visit Diagnoses Not on filedocumented in this encounter Additional Health Concerns Assessment Noted Time PHQ-9 Depression Total Score: 20 023 12:00 PM EDT documented as of this encounter Care Teams Sample Card Maker Relationship Specialty Start Date End Date Jer Rizo MD [address] Jose Armando 110 [place] [address] PCP - General Internal Medicine 01/03/23 Jer Rizo MD [address] Jose Armando 110 [place] [address] PCP - Devoted 05/29/23 05/28/24 Jer Rizo MD [address] Jose Armando 110 [place] [address] PCP - Sari HERNANDEZ 05/29/24 11/25/24 Aggie Gallardo APRN-SCHOOL PHOTOGRAPH EDITOR [address] [address] PCP - Sari HERNANDEZ 11/26/24 Aggie Gallardo APRN-SCHOOL PHOTOGRAPH EDITOR [address] [address] Nurse Practitioner Psychiatry 06/13/24 Madyson Figueroa RN [address] [facility] 230 [place] [address] Registered Nurse Family Medicine 08/14/24 03/03/25 Braeden Dunham LPC Therapist Behavioral Health 11/25/24 documented as of this encounter
--- OUTSIDE RECORDS SUMMARY | 2025-03-12 14:05 | XMS_ITS | Encounter Summary ---
Author Organization [facility] Address [address] [facility] [place] [address] Care Team Providers Care Gun Welder Name Role Phone Jer Rizo MD Primary Care Provider [phone] Jer Rizo MD Unavailable [phone] Aggie Gallardo ORDER DESK CLERK-FISHING TACKLE REPAIRER Unavailable Jer Rizo MD Unavailable [phone] Madyson Figueroa RN Unavailable [phone] Braeden Dunham LPC Unavailable Unavailable Aggie Gallardo ORDER DESK CLERK-FISHING TACKLE REPAIRER Unavailable Encounter Details Date Type Department Care Team (Late st Contact Info) Description 07/05/2023 Orders Only [facility] [place] [facility] [address] [facility] 110 [place] [address] Unallocated, Noms Provider, [address] [place] [id number] Social History Tobacco Use Types Packs/Day Years [...] Health [address] JOSE ARMANDO [address] [place] [address] Aggie Gallardo, ORDER DESK CLERK-FISHING TACKLE REPAIRER [address] Jose Armando 160 [place] [address] 03/20/2025 3:50 PM EDT Office Visit [facility] [address] JOSE ARMANDO [address] [place] [address] Tip Morillo, DPM 3006 [facility] 5 [place] [address] 03/21/2025 11:00 AM EDT Office Visit [facility] [place] [facility] [address] JOSE ARMANDO 110 [place] [address] Erin Tariq PA [address] Jose Armando 110 [place] [address] documented as of this encounter Procedures Procedure [...] documented as of this encounter Care Teams Gun Welder Relationship Specialty Start Date End Date Jer Rizo MD [address] Jose Armando [address] [place] [address] PCP - General Internal Medicine 01/03/23 Jer Rizo MD [address] [facility] 110 [place] [address] PCP - Devoted 05/29/23 05/28/24 Jer Rizo MD [address] [facility] 110 [place] [address] PCP - Sari HERNANDEZ 05/29/24 11/25/24 Aggie Gallardo, ORDER DESK CLERK-FISHING TACKLE REPAIRER [address] [facility] 160 [place] [address] PCP - Sari HERNANDEZ 11/26/24 Aggie Gallardo, ORDER DESK CLERK-FISHING TACKLE REPAIRER [address] [facility] 160 [place] [address] Nurse Practitioner Psychiatry 06/13/24 Madyson Figueroa, BETY [address] [facility] 230 [place] [address] Registered Nurse Family Medicine 08/14/24 03/03/25 Braeden Dunham LPC Therapist Behavioral Health 11/25/24 documented as of this encounter
--- OUTSIDE RECORDS SUMMARY | 2025-03-12 14:05 | XMS_ITS | Encounter Summary ---
Author Organization [facility] Address [address] [facility] [place] [address] Care Team Providers Care Brush Stainer Name Role Phone Jer Rizo MD Primary Care Provider [phone] Aggie Gallardo MED SPA MANAGER-WRINKLE CHASER Unavailable Jer Rizo MD Unavailable [phone] Madyson Figueroa RN Unavailable [phone] Braeden Dunham LPC Unavailable Unavailable Aggie Gallardo MED SPA MANAGER-WRINKLE CHASER Unavailable Encounter Details Date Type Department Care Team (Late st Contact Info) Description 10/28/2024 Abstract [facility] [place] [facility] [address] [facility] 110 [place] [address] Jer Rizo MD 112 [facility] 110 [place] [address] Social History Tobacco Use Types [...] any clubs o r organizations such as restorationism groups, unions, fraternal or athletic groups, or [...] Recorded Patient Health Questionnaire-2 Score 0 10/23/2024 [facility] of Occupat ional Health - Occupational Stress [...] time in the past 12 m [facility], were you homeless or living in a [...] [facility] [place] [facility] [address] [facility] 160 [place] [address] Aggie Gallardo, MED SPA MANAGER-WRINKLE CHASER [address] [facility] 160 [place] [address] 03/20/2025 3:50 PM EDT Office Visit [facility] [address] JOSE ARMANDO 120 [place] [address] Tip Morillo DPM 3006 [facility] 5 [place] [address] 03/21/2025 11:00 AM EDT Office Visit [facility] [place] [facility] [address] [facility] 110 [place] [address] Erin Tariq PA [address] Jose Armando [address] [place] [address] documented as of this encounter Goals Goal [...] documented as of this encounter Care Teams Brush Stainer Relationship Specialty Start Date End Date Jer Rizo MD [address] [facility] 110 [place] [address] PCP - General Internal Medicine 01/03/23 Jer Rizo MD [address] [facility] 110 [place] [address] PCP - Sari HERNANDEZ 05/29/24 11/25/24 Aggie Gallardo, MED SPA MANAGER-WRINKLE CHASER [address] [facility] 160 [place] [address] PCP - Sari HERNANDEZ 11/26/24 Aggie Gallardo, MED SPA MANAGER-WRINKLE CHASER [address] [facility] 160 [place] [address] Nurse Practitioner Psychiatry 06/13/24 Madyson Figueroa, BETY [address] [facility] 230 [place] [address] Registered Nurse Family Medicine 08/14/24 03/03/25 Braeden Dunham LPC Therapist Behavioral Health 11/25/24 documented as of this encounter
--- OUTSIDE RECORDS SUMMARY | 2025-03-12 14:05 | XMS_ITS | Encounter Summary ---
Author Organization [facility] Address [address] [facility] [place] [address] Care Team Providers Care Diesel Technology Instructor Name Role Phone Jer Rizo MD Primary Care Provider [phone] Aggie Gallardo SHIRT FOLDING MACHINE OPERATOR-IDEA WORKER Unavailable Jer Rizo MD Unavailable [phone] Madyson Figueroa RN Unavailable [phone] Braeden Dunham LPC Unavailable Unavailable Aggie Gallardo SHIRT FOLDING MACHINE OPERATOR-IDEA WORKER Unavailable Encounter Details Date Type Department Care Team (Late st Contact Info) Description 10/16/2024 Abstract [facility] [place] [facility] 112 [facility] 110 [place] [address] Jer Rizo MD 112 [facility] 110 [place] [address] Social History Tobacco Use Types [...] and Family Not on file 12/04/2023 Attends [employer] Services Not on file 12/03 Do you belong to any clubs o r organizations such as protestant groups, unions, fraternal or athletic groups, or [...] Recorded Patient Health Questionnaire-2 Score 2 07/30/2024 [facility] of Occupat ional Health - Occupational [...] any time in the past 12 m [facility], were you homeless or living in [...] [facility] [place] [facility] [address] [facility] 160 [place] [address] Aggie Gallardo, SHIRT FOLDING MACHINE OPERATOR-IDEA WORKER [address] [facility] 160 [place] [address] 03/20/2025 3:50 PM EDT Office Visit [facility] [address] JOSE ARMANDO 120 [place] [address] Tip Morillo DPM 3006 [facility] 5 [place] [address] 03/21/2025 11:00 AM EDT Office Visit [facility] [place] [facility] [address] [facility] 110 [place] [address] Erin Tariq PA [address] Jose Armando [address] [place] [address] documented as of this encounter Goals Goal [...] documented as of this encounter Care Teams Diesel Technology Instructor Relationship Specialty Start Date End Date Jer Rizo MD 112 [facility] 110 [place] [address] PCP - General Internal Medicine 01/03/23 Jer Rizo MD 112 [facility] 110 [place] [address] PCP - Sari HERNANDEZ 05/29/24 11/25/24 Aggie Gallardo, SHIRT FOLDING MACHINE OPERATOR-IDEA WORKER 112 [facility] 160 [place] [address] PCP - Sari HERNANDEZ 11/26/24 Aggie Gallardo, SHIRT FOLDING MACHINE OPERATOR-IDEA WORKER 112 [facility] 160 [place] [address] Nurse Practitioner Psychiatry 06/13/24 Madyson Figueroa, BETY [address] [facility] 230 [place] [address] Registered Nurse Family Medicine 08/14/24 03/03/25 Braeden Dunham LPC Therapist Behavioral Health 11/25/24 documented as of this encounter
--- OUTSIDE RECORDS SUMMARY | 2025-03-12 14:05 | XMS_ITS | Encounter Summary ---
Author Organization [facility] Address [address] [facility] [place] [address] Care Team Providers Care E Learning Developer Name Role Phone Jer Rizo MD Primary Care Provider [phone] Jer Rizo MD Unavailable [phone] Aggie Gallardo ONLINE MERCHANDISING SPECIALIST-SHAKE SAWYER Unavailable Jer Rizo MD Unavailable [phone] Madyson Figueroa RN Unavailable [phone] Braeden Dunham LPC Unavailable Unavailable Aggie Glalardo ONLINE MERCHANDISING SPECIALIST-SHAKE SAWYER Unavailable Encounter Details Date Type Department Care Team (Late st Contact Info) Description 06/27/2023 Abstract [facility] [place] [facility] 112 [facility] 110 [place] [address] Jer Rizo MD 112 [facility] 110 [place], [place] [address] Social History Tobacco Use Types Packs/Day Years [...] [address] JOSE ARMANDO 160 [place] [address] Aggie Gallardo, ONLINE MERCHANDISING SPECIALIST-SHAKE SAWYER [address] Jose Armando 160 [place] [address] 03/20/2025 3:50 PM EDT Office Visit [facility] [address] JOSE ARMANDO [address] [place] [address] Tip Morillo, DPM 3006 [facility] 5 [place] [address] 03/21/2025 11:00 AM EDT Office Visit [facility] [place] [facility] [address] JOSE ARMANDO 110 [place] [address] Erin Tariq PA [address] Jose Armando 110 [place] [address] documented as of this encounter Visit Diagnoses Not on filedocumented in this encounter Additional Health Concerns Assessment Noted Time PHQ-9 Depression Total Score: 20 023 12:00 PM EDT documented as of this encounter Care Teams E Learning Developer Relationship Specialty Start Date End Date Jer Rizo MD [address] Jose Armando 110 [place] [address] PCP - General Internal Medicine 01/03/23 Jer Rizo MD [address] Jose Armando [address] [place] [address] PCP - Devoted 05/29/23 05/28/24 Jer Rizo MD [address] Jose Armando 110 [place] [address] PCP - Sari HERNANDEZ 05/29/24 11/25/24 Aggie Gallardo APRN-SHAKE SAWYER [address] [address] PCP - Sari HERNANDEZ 11/26/24 Aggie Gallardo APRN-SHAKE SAWYER [address] [address] Nurse Practitioner Psychiatry 06/13/24 Madyson Figueroa RN [address] [facility] 230 [place] [address] Registered Nurse Family Medicine 08/14/24 03/03/25 Braeden Dunham LPC Therapist Behavioral Health 11/25/24 documented as of this encounter
--- OUTSIDE RECORDS SUMMARY | 2025-03-12 14:05 | XMS_ITS | Encounter Summary ---
Author Organization [facility] Address [address] [facility] [place] [address] Care Team Providers Care Radiology Resident Name Role Phone Jer Rizo MD Primary Care Provider [phone] Aggie Gallardo LICENSED INSURANCE AGENT-FACULTY RESEARCH PHYSICIAN Unavailable Jer Rizo MD Unavailable [phone] Madyson Figueroa RN Unavailable [phone] Braeden Dunham LPC Unavailable Unavailable Aggie Gallardo LICENSED INSURANCE AGENT-FACULTY RESEARCH PHYSICIAN Unavailable Encounter Details Date Type Department Care Team (Late st Contact Info) Description 11/04/2024 Abstract [facility] [place] [facility] 112 [facility] 110 [place] [address] Jer Rizo MD 112 [facility] 110 [place] [address] Social History Tobacco [...] and Family Not on file 12/04/2023 Attends Bahai Services Not on file 12/03 Do you [...] Recorded Patient Health Questionnaire-2 Score 0 10/23/2024 [facility] of Occupat ional Health [...] in the past 12 m [facility], were you homeless or [...] [address] [facility] 160 [place] [address] Aggie Gallardo, LICENSED INSURANCE AGENT-FACULTY RESEARCH PHYSICIAN [address] [facility] 160 [place] [address] 03/20/2025 3:50 PM EDT Office Visit [facility] [address] JOSE ARMANDO 120 [place] [address] Tip Morillo DPM 3006 [facility] 5 [place] [address] 03/21/2025 11:00 AM EDT Office Visit [facility] [place] [facility] [address] [facility] 110 [place] [address] Erin Tariq PA [address] Jose Armando [address] [place] [address] documented as of this encounter Goals Goal [...] documented as of this encounter Care Teams Radiology Resident Relationship Specialty Start Date End Date Jer Rizo MD [address] [facility] 110 [place] [address] PCP - General Internal Medicine 01/03/23 Jer Rizo MD [address] [facility] 110 [place] [address] PCP - Sari HERNANDEZ 05/29/24 11/25/24 Aggie Gallardo, LICENSED INSURANCE AGENT-FACULTY RESEARCH PHYSICIAN [address] [place] [facility] 160 [place] [address] PCP - Sari HERNANDEZ 11/26/24 Aggie Gallardo, LICENSED INSURANCE AGENT-FACULTY RESEARCH PHYSICIAN [address] [place] [facility] 160 [place] [address] Nurse Practitioner Psychiatry 06/13/24 Madyson Figueroa, BETY [address] [facility] 230 [place] [address] Registered Nurse Family Medicine 08/14/24 03/03/25 Braeden Dunham LPC Therapist Behavioral Health 11/25/24 documented as of this encounter
--- OUTSIDE RECORDS SUMMARY | 2025-03-12 14:05 | XMS_ITS | Encounter Summary ---
Author Organization [facility] Address [address] [facility] [place] [address] Care Team Providers Care Supervisor Cured Meats Name Role Phone Jer Rizo MD Primary Care Provider [phone] Jer Rizo MD Unavailable [phone] Aggie Gallardo NUCLEAR MEDICINE SUPERVISOR-APARTMENT MAINTENANCE Unavailable Jer Rizo MD Unavailable [phone] Madyson Figueroa RN Unavailable [phone] Braeden Dunham LPC Unavailable Unavailable Aggie Gallardo NUCLEAR MEDICINE SUPERVISOR-APARTMENT MAINTENANCE Unavailable Encounter Details Date Type Department Care Team (Late st Contact Info) Description 06/22/2023 Abstract [facility] [place] [facility] 112 [facility] 110 [place] [address] Jer Rizo MD 112 [facility] 110 [place], [place] [address] Social History Tobacco Use Types Packs/Day Years [...] [address] JOSE ARMANDO 160 [place] [address] Aggie Gallardo, NUCLEAR MEDICINE SUPERVISOR-APARTMENT MAINTENANCE [address] Jose Armando 160 [place] [address] 03/20/2025 3:50 PM EDT Office Visit [facility] [address] JOSE ARMANDO [address] [place] [address] Tip Morillo, DPM 3006 [facility] 5 [place] [address] 03/21/2025 11:00 AM EDT Office Visit [facility] [place] [facility] [address] JOSE ARMANDO [address] [place] [address] Erin Tariq PA [address] Jose Armando 110 [place] [address] documented as of this encounter Visit Diagnoses Not on filedocumented in this encounter Additional Health Concerns Assessment Noted Time PHQ-9 Depression Total Score: 20 023 12:00 PM EDT documented as of this encounter Care Teams Supervisor Cured Meats Relationship Specialty Start Date End Date Jer Rizo MD [address] Jose Armando 110 [place] [address] PCP - General Internal Medicine 01/03/23 Jer Rizo MD [address] Jose Armando 110 [place] [address] PCP - Devoted 05/29/23 05/28/24 Jer Rizo MD [address] Jose Armando [address] [place] [address] PCP - Sari HERNANDEZ 05/29/24 11/25/24 Aggie Gallardo APRN-APARTMENT MAINTENANCE [address] [address] PCP - Sari HERNANDEZ 11/26/24 Aggie Gallardo APRN-APARTMENT MAINTENANCE [address] [address] Nurse Practitioner Psychiatry 06/13/24 Madyson Figueroa RN [address] [facility] 230 [place] [address] Registered Nurse Family Medicine 08/14/24 03/03/25 Braeden Dunham LPC Therapist Behavioral Health 11/25/24 documented as of this encounter
--- OUTSIDE RECORDS SUMMARY | 2025-03-12 14:05 | XMS_ITS | Encounter Summary ---
Author Organization [facility] Address [address] [facility] [place] [address] Care Team Providers Care Nail Technician Teacher Name Role Phone Jer Rizo MD Primary Care Provider [phone] Jer Rizo MD Unavailable [phone] Aggie Gallardo FOOD EXPEDITOR-SQUILGEER Unavailable Jer Rizo MD Unavailable [phone] Madyson Figueroa RN Unavailable [phone] Braeden Dunham LPC Unavailable Unavailable Aggie Gallardo FOOD EXPEDITOR-SQUILGEER Unavailable Encounter Details Date Type Department Care Team (Late st Contact Info) Description 09/07/2023 Abstract [facility] [place] [facility] 112 [facility] 110 [place] [address] Jer Rizo MD 112 [facility] 110 [place], [place] [address] Social History Tobacco Use Types Packs/Day Years [...] [address] JOSE ARMANDO 160 [place] [address] Aggie Gallardo, FOOD EXPEDITOR-SQUILGEER [address] Jose Armando 160 [place] [address] 03/20/2025 3:50 PM EDT Office Visit [facility] [address] JOSE ARMANDO [address] [place] [address] Tip Morillo, DPM 3006 [facility] 5 [place] [address] 03/21/2025 11:00 AM EDT Office Visit [facility] [place] [facility] [address] JOSE ARMANDO 110 [place] [address] Erin Tariq PA [address] Jose Armando 110 [place] [address] documented as of this encounter Visit Diagnoses Not on filedocumented in this encounter Additional Health Concerns Assessment Noted Time PHQ-9 Depression Total Score: 20 023 12:00 PM EDT documented as of this encounter Care Teams Nail Technician Teacher Relationship Specialty Start Date End Date Jer Rizo MD [address] Armando [address] [place] [address] PCP - General Internal Medicine 01/03/23 Jer Rizo MD [address] Jose Armando [address] [place] [address] PCP - Devoted 05/29/23 05/28/24 Jre Rizo MD [address] Jose Armando 110 [place] [address] PCP - Sari HERNANDEZ 05/29/24 11/25/24 Aggie Gallardo APRN-SQUILGEER [address] [address] PCP - Sari HERNANDEZ 11/26/24 Aggie Gallardo APRN-SQUILGEER [address] [address] Nurse Practitioner Psychiatry 06/13/24 Madyson Figueroa RN [address] [facility] 230 [place] [address] Registered Nurse Family Medicine 08/14/24 03/03/25 Braeden Dunham LPC Therapist Behavioral Health 11/25/24 documented as of this encounter
--- OUTSIDE RECORDS SUMMARY | 2025-03-12 14:05 | XMS_ITS | Encounter Summary ---
Author Organization [facility] Address [address] [place] [address] Care Team Providers Care Community Coordinator For [employer] Name Role Phone Jer Rizo MD Primary Care Provider [phone] Aggie Gallardo SALES TECHNICIAN HOME THEATER-MOLD FINISHER Unavailable Jer Rizo MD Unavailable [phone] Madyson Figueroa RN Unavailable [phone] Braeden Dunham LPC Unavailable Unavailable Aggie Gallardo SALES TECHNICIAN HOME THEATER-MOLD FINISHER Unavailable Encounter Details Date Type Department Care Team (Late st Contact Info) Description 10/16/2024 Abstract [facility] [place] [facility] 112 [facility] 110 [place] [address] Jer Rizo MD 112 [facility] 110 [place] [address] Social History Tobacco Use Types [...] and Family Not on file 12/04/2023 Attends Scientology Services Not on file 12/03 Do you [...] Recorded Patient Health Questionnaire-2 Score 2 07/30/2024 [facility] of Occupat ional Health - [...] [facility] [place] [facility] [address] [facility] 160 [place] [address] Aggie Gallardo, SALES TECHNICIAN HOME THEATER-MOLD FINISHER [address] [facility] 160 [place] [address] 03/20/2025 3:50 PM EDT Office Visit [facility] [address] JOSE ARMANDO 120 [place] [address] Tip Morillo DPM 3006 [facility] 5 [place] [address] 03/21/2025 11:00 AM EDT Office Visit [facility] [place] [facility] [address] [facility] 110 [place] [address] Erin Tariq PA [address] Jose Armando [address] [place] [address] documented as of this encounter Goals Goal [...] documented as of this encounter Care Teams Community Coordinator For [employer] Relationship Specialty Start Date End Date Jer Rizo MD 112 [facility] 110 [place] [address] PCP - General Internal Medicine 01/03/23 Jer Rizo MD 112 [facility] 110 [place] [address] PCP - Sari HERNANDEZ 05/29/24 11/25/24 Aggie Gallardo, SALES TECHNICIAN HOME THEATER-MOLD FINISHER 112 [facility] 160 [place] [address] PCP - Sari HERNANDEZ 11/26/24 Aggie Gallardo, SALES TECHNICIAN HOME THEATER-MOLD FINISHER 112 [facility] 160 [place] [address] Nurse Practitioner Psychiatry 06/13/24 Madyson Figueroa, BETY [address] [facility] 230 [place] [address] Registered Nurse Family Medicine 08/14/24 03/03/25 Braeden Dunham LPC Therapist Behavioral Health 11/25/24 documented as of this encounter
--- OUTSIDE RECORDS SUMMARY | 2025-03-12 14:06 | XMS_ITS | Encounter Summary ---
Author Organization [facility] Address [address] [facility] [place] [address] Care Team Providers Care Information Specialist Name Role Phone Jer Rizo MD Primary Care Provider [phone] Aggie Gallardo ASSAULT AMPHIBIOUS VEHICLE OFFICER-REGISTERED NURSE RENAL Unavailable Jer Rizo MD Unavailable [phone] Madyson Figueroa RN Unavailable [phone] Braeden Dunham LPC Unavailable Unavailable Aggie Gallardo ASSAULT AMPHIBIOUS VEHICLE OFFICER-REGISTERED NURSE RENAL Unavailable Encounter Details Date Type Department Care Team (Late st Contact Info) Description 11/15/2024 Abstract [facility] [place] [facility] 112 [facility] 110 [place] [address] Jer Rizo MD 112 [facility] 110 [place] [address] Social History Tobacco Use Types [...] any clubs o r organizations such as confucianism groups, unions, fraternal or athletic groups, or [...] Recorded Patient Health Questionnaire-2 Score 0 10/23/2024 [facility] of Occupat ional Health - Occupational [...] any time in the past 12 m [facility], were you homeless or living in [...] [facility] [place] [facility] [address] [facility] 160 [place] [address] Aggie Gallardo, ASSAULT AMPHIBIOUS VEHICLE OFFICER-REGISTERED NURSE RENAL [address] [facility] 160 [place] [address] 03/20/2025 3:50 PM EDT Office Visit [facility] [address] JOSE ARMANDO 120 [place] [address] Tip Morillo DPM 3006 [facility] 5 [place] [address] 03/21/2025 11:00 AM EDT Office Visit [facility] [place] [facility] [address] [facility] 110 [place] [address] Erin Tariq PA [address] Jose Armando 110 [place] [address] documented as of this encounter Goals Goal [...] documented as of this encounter Care Teams Information Specialist Relationship Specialty Start Date End Date Jer Rizo MD [address] [facility] 110 [place] [address] PCP - General Internal Medicine 01/03/23 Jer Rizo MD [address] [facility] 110 [place] [address] PCP - Sari HERNANDEZ 05/29/24 11/25/24 Aggie Galalrdo, ASSAULT AMPHIBIOUS VEHICLE OFFICER-REGISTERED NURSE RENAL [address] [facility] 160 [place] [address] PCP - Sari HERNANDEZ 11/26/24 Aggie Gallardo, ASSAULT AMPHIBIOUS VEHICLE OFFICER-REGISTERED NURSE RENAL [address] [facility] 160 [place] [address] Nurse Practitioner Psychiatry 06/13/24 Madyson Figueroa, BETY [address] [facility] 230 [place] [address] Registered Nurse Family Medicine 08/14/24 03/03/25 Braeden Dunham LPC Therapist Behavioral Health 11/25/24 documented as of this encounter
--- OUTSIDE RECORDS SUMMARY | 2025-03-12 14:06 | XMS_ITS | Encounter Summary ---
Author Organization [facility] Address [address] [facility] [place] [address] Care Team Providers Care Aircraft Maintenance Manager Name Role Phone Jer Rizo MD Primary Care Provider [phone] Aggie Gallardo OPEN HEARTH FURNACE OPERATOR HELPER-NEEDLE LEADER Unavailable Madyson Figueroa RN Unavailable [phone] Braeden Dunham LPC Unavailable Unavailable Aggie Gallardo OPEN HEARTH FURNACE OPERATOR HELPER-NEEDLE LEADER Unavailable Encounter Details Date Type Department Care Team (Late st Contact Info) Description 12/02/2024 Abstract [facility] [place] [facility] 112 [facility] 110 [place] [address] Jer Rizo MD 112 [facility] 110 [place] [address] Social History Tobacco Use Types [...] Recorded Patient Health Questionnaire-2 Score 0 10/23/2024 [facility] - Occupational Stress Questionnaire Answer Date [...] [facility] [place] [facility] [address] [facility] [address] [place] [address] Aggie Gallardo, OPEN HEARTH FURNACE OPERATOR HELPER-NEEDLE LEADER [address] [facility] [address] [place] [address] 03/20/2025 3:50 PM EDT Office Visit [facility] [address] [facility] [address] [place] [address] Tip Morillo, DPM 3006 [facility] 5 [place] [address] 03/21/2025 11:00 AM EDT Office Visit [facility] [place] [facility] [address] [facility] [address] [place] [address] Erin Tariq, PA [address] [facility] [address] [place] [address] documented as of this encounter Goals Goal [...] documented as of this encounter Care Teams Aircraft Maintenance Manager Relationship Specialty Start Date End Date Jer Rizo MD [address] [facility] 110 [place] [address] PCP - General Internal Medicine 01/03/23 Aggie Gallardo, OPEN HEARTH FURNACE OPERATOR HELPER-NEEDLE LEADER [address] [facility] 160 [place] [address] PCP - Sari HERNANDEZ 11/26/24 Aggie Gallardo, OPEN HEARTH FURNACE OPERATOR HELPER-NEEDLE LEADER [address] [facility] 160 [place] [address] Nurse Practitioner Psychiatry 06/13/24 Madyson Figueroa, BETY [address] [facility] 230 [place] [address] Registered Nurse Family Medicine 08/14/24 03/03/25 Braeden Dunham LPC Therapist Behavioral Health 11/25/24 documented as of this encounter
--- OUTSIDE RECORDS SUMMARY | 2025-03-12 14:06 | XMS_ITS | Encounter Summary ---
Author Organization [facility] Address [address] [facility] [place] [address] Care Team Providers Care Commercial Retoucher Name Role Phone Jer Rizo MD Primary Care Provider Aggie Gallardo SHELTERED WORKSHOP EXECUTIVE DIRECTOR-INVOICE CLERK Unavailable Jer Rizo MD Unavailable [phone] Madyson Figueroa RN Unavailable [phone] Braeden Dunham LPC Unavailable Unavailable Aggie Gallardo SHELTERED WORKSHOP EXECUTIVE DIRECTOR-INVOICE CLERK Unavailable Encounter Details Date Type Department Care Team (Late st Contact Info) Description 10/23/2024 Abstract [facility] [place] [facility] 112 [facility] 110 [place] [address] Jer Rizo MD 112 [facility] 110 [place] [address] Social History Tobacco Use Types [...] Recorded Patient Health Questionnaire-2 Score 0 10/23/2024 [facility] of Occupat ional Health - Occupational [...] [address] JOSE ARMANDO [address] [place] [address] Aggie Gallardo, SHELTERED WORKSHOP EXECUTIVE DIRECTOR-INVOICE CLERK [address] Jose Armando [address] [place] [address] 03/20/2025 3:50 PM EDT Office Visit [facility] [address] [facility] 120 [place] [address] Tip Morillo DPM 3006 [facility] 5 [place] [address] 03/21/2025 11:00 AM EDT Office Visit [facility] [place] [facility] [address] [facility] 110 [place] [address] Erin Tariq PA [address] [facility] 110 [place] [address] documented as of this encounter Goals Goal [...] documented as of this encounter Care Teams Commercial Retoucher Relationship Specialty Start Date End Date Jer Rizo MD [address] [facility] 110 [place] [address] PCP - General Internal Medicine 01/03/23 Jer Rizo MD [address] [facility] 110 [place] [address] PCP - Sari HERNANDEZ 05/29/24 11/25/24 Aggie Gallardo, SHELTERED WORKSHOP EXECUTIVE DIRECTOR-INVOICE CLERK [address] [facility] 160 [place] [address] PCP hSey Guo MA 11/26/24 Aggie Gallardo SHELTERED WORKSHOP EXECUTIVE DIRECTOR-INVOICE CLERK [address] [facility] 160 [place] [address] Nurse Practitioner Psychiatry 06/13/24 Madyson Figueroa, RN [address] Jose Armando [address] [place] [id number] Registered Nurse Family Medicine 08/14/24 03/03/25 Braeden Dunham LPC Therapist Behavioral Health 11/25/24 documented as of this encounter
--- OUTSIDE RECORDS SUMMARY | 2025-03-12 14:06 | XMS_ITS | Encounter Summary ---
Author Organization [facility] Address [address] [facility] [place] [address] Care Team Providers Care Basket Sorter Name Role Phone Jer Rizo MD Primary Care Provider Aggie Gallardo FOOD AND BEVERAGE ANALYST-ASSOCIATE PROFESSOR OF PSYCHOLOGY Unavailable Jer Rizo MD Unavailable Madyson Figueroa RN Unavailable [phone] Braeden Dunham LPC Unavailable Unavailable Aggie Gallardo FOOD AND BEVERAGE ANALYST-ASSOCIATE PROFESSOR OF PSYCHOLOGY Unavailable Encounter Details Date Type Department Care Team (Late st Contact Info) Description 10/28/2024 Abstract [facility] [place] [facility] [address] [facility] 110 [place] [address] Jer Rizo MD 112 [facility] 110 [place] [address] Social History Tobacco Use Types [...] any clubs o r organizations such as adventist groups, unions, fraternal or athletic groups, or [...] [facility] [place] [facility] [address] [facility] 160 [place] [address] Aggie Gallardo, FOOD AND BEVERAGE ANALYST-ASSOCIATE PROFESSOR OF PSYCHOLOGY [address] [facility] 160 [place] [address] 03/20/2025 3:50 PM EDT Office Visit [facility] [address] JOSE ARMANDO 120 [place] [address] Tip Morillo DPM 3006 [facility] 5 [place] [address] 03/21/2025 11:00 AM EDT Office Visit [facility] [place] [facility] [address] [facility] 110 [place] [address] Erin Tariq PA [address] Jose Armando 110 [place] [address] documented as of this encounter Goals Goal [...] documented as of this encounter Care Teams Basket Sorter Relationship Specialty Start Date End Date Jer Rizo MD [address] [facility] 110 [place] [address] PCP - General Internal Medicine 01/03/23 Jer Rizo MD [address] [facility] 110 [place] [address] PCP - Sari HERNANDEZ 05/29/24 11/25/24 Aggie Gallardo, FOOD AND BEVERAGE ANALYST-ASSOCIATE PROFESSOR OF PSYCHOLOGY [address] [facility] 160 [place] [address] PCP - Sari HERNANDEZ 11/26/24 Aggie Gallardo, FOOD AND BEVERAGE ANALYST-ASSOCIATE PROFESSOR OF PSYCHOLOGY [address] [facility] 160 [place] [address] Nurse Practitioner Psychiatry 06/13/24 Madyson Figueroa, BETY [address] [facility] 230 [place] [address] Registered Nurse Family Medicine 08/14/24 03/03/25 Braeden Dunham LPC Therapist Behavioral Health 11/25/24 documented as of this encounter
--- OUTSIDE RECORDS SUMMARY | 2025-03-12 14:06 | XMS_ITS | Encounter Summary ---
Author Organization [facility] Address [address] [facility] [place] [address] Care Team Providers Care Plastics Process Hand Name Role Phone Jer Rizo MD Primary Care Provider [phone] Aggie Gallardo CASINO ATTENDANT-WASH BOX OPERATOR Unavailable Jer Rizo MD Unavailable [phone] Madyson Figueroa RN Unavailable [phone] Braeden Dunham LPC Unavailable Unavailable Aggie Gallardo CASINO ATTENDANT-WASH BOX OPERATOR Unavailable Encounter Details Date Type Department Care Team (Late st Contact Info) Description 11/15/2024 Abstract [facility] [place] [facility] 112 [facility] 110 [place] [address] Jer Rizo MD 112 [facility] 110 [place] [address] Social History Tobacco Use Types [...] any clubs o r organizations such as faith groups, unions, fraternal or athletic groups, or [...] any time in the past 12 m [facility], were you homeless or [...] [address] [facility] 160 [place] [address] Aggie Gallardo, CASINO ATTENDANT-WASH BOX OPERATOR [address] [facility] 160 [place] [address] 03/20/2025 3:50 PM EDT Office Visit [facility] [address] JOSE ARMANDO 120 [place] [address] Tip Morillo DPM 3006 [facility] 5 [place] [address] 03/21/2025 11:00 AM EDT Office Visit [facility] [place] [facility] [address] [facility] 110 [place] [address] Erin Tariq PA [address] Jose Armando [address] [place] [address] documented as of this encounter Goals Goal [...] documented as of this encounter Care Teams Plastics Process Hand Relationship Specialty Start Date End Date Jer Rizo MD [address] [place] [facility] 110 [place] [address] PCP - General Internal Medicine 01/03/23 Jer Rizo MD [address] [facility] 110 [place] [address] PCP - Sari HERNANDEZ 05/29/24 11/25/24 Aggie Gallardo, CASINO ATTENDANT-WASH BOX OPERATOR [address] [facility] 160 [place] [address] PCP - Sari HERNANDEZ 11/26/24 Aggie Gallardo, CASINO ATTENDANT-WASH BOX OPERATOR [address] [facility] 160 [place] [address] Nurse Practitioner Psychiatry 06/13/24 Madyson Figueroa, BETY [address] [facility] 230 [place] [address] Registered Nurse Family Medicine 08/14/24 03/03/25 Braeden Dunham LPC Therapist Behavioral Health 11/25/24 documented as of this encounter
--- OUTSIDE RECORDS SUMMARY | 2025-03-12 14:06 | XMS_ITS | Encounter Summary ---
Author Organization [facility] Address [address] [facility] [place] [address] Care Team Providers Care Fruit Cutter Name Role Phone Jer Rizo MD Primary Care Provider Aggie Gallardo METAL HANGER-LAST INSERTER Unavailable Jer Rizo MD Unavailable [phone] Madyson Figueroa RN Unavailable [phone] Braeden Dunham LPC Unavailable Unavailable Aggie Gallardo METAL HANGER-LAST INSERTER Unavailable Encounter Details Date Type Department Care Team (Late st Contact Info) Description 10/28/2024 Abstract [facility] [place] [facility] 112 [facility] 110 [place] [address] Jer Rizo MD 112 [facility] 110 [place] [address] Social History Tobacco Use Types [...] any clubs o r organizations such as hindu groups, unions, fraternal or athletic groups, or [...] Recorded Patient Health Questionnaire-2 Score 0 10/23/2024 [facility] of Occupat ional Health - Occupational [...] any time in the past [address] [facility], were you homeless or living [...] [facility] [place] [facility] [address] [facility] 160 [place] [address] Aggie Gallardo, METAL HANGER-LAST INSERTER [address] [facility] 160 [place] [address] 03/20/2025 3:50 PM EDT Office Visit [facility] [address] JOSE ARMANDO 120 [place] [address] Tip Morillo DPM 3006 [facility] 5 [place] [address] 03/21/2025 11:00 AM EDT Office Visit [facility] [place] [facility] [address] [facility] 110 [place] [address] Erin Tariq PA [address] Jose Armando [address] [place] [address] documented as of this encounter Goals Goal [...] documented as of this encounter Care Teams Fruit Cutter Relationship Specialty Start Date End Date Jer Rizo MD [address] [facility] 110 [place] [address] PCP - General Internal Medicine 01/03/23 Jer Rizo MD [address] [facility] 110 [place] [address] PCP - Sari HERNANDEZ 05/29/24 11/25/24 Aggie Gallardo, METAL HANGER-LAST INSERTER [address] [facility] 160 [place] [address] PCP - Sari HERNANDEZ 11/26/24 Aggie Gallardo, METAL HANGER-LAST INSERTER [address] [facility] 160 [place] [address] Nurse Practitioner Psychiatry 06/13/24 Madyson Figueroa, BETY [address] [facility] 230 [place] [address] Registered Nurse Family Medicine 08/14/24 03/03/25 Braeden Dunham LPC Therapist Behavioral Health 11/25/24 documented as of this encounter
--- OUTSIDE RECORDS SUMMARY | 2025-03-12 14:06 | XMS_ITS | Encounter Summary ---
Author Organization [facility] Address [address] [place] [address] Care Team Providers Care Hasher Machine Operator Name Role Phone Jer Rizo MD Primary Care Provider [phone] Aggie Gallardo TILE SETTER SUPERVISOR-CLAY PROCESSING FACTORY WORKER Unavailable Jer Rizo MD Unavailable [phone] Madyson Figueroa RN Unavailable [phone] Braeden Dunham LPC Unavailable Unavailable Aggie Gallardo TILE SETTER SUPERVISOR-CLAY PROCESSING FACTORY WORKER Unavailable Encounter Details Date Type Department Care Team (Late st Contact Info) Description 11/13/2024 Abstract [facility] [place] [facility] 112 [facility] 110 [place] [address] Jer Rizo MD 112 [facility] 110 [place] [address] Social History Tobacco Use Types [...] and Family Not on file 12/04/2023 Attends [facility] Not on file 12/03 Do you belong to any clubs o r organizations such as taoist groups, unions, fraternal or athletic groups, or [...] Recorded Patient Health Questionnaire-2 Score 0 10/23/2024 [facility] of Occupat ional Health - Occupational [...] any time in the past 12 m [facility], were you homeless or living in [...] [facility] [place] [facility] [address] [facility] 160 [place] [address] Aggie Gallardo, TILE SETTER SUPERVISOR-CLAY PROCESSING FACTORY WORKER [address] [facility] 160 [place] [address] 03/20/2025 3:50 PM EDT Office Visit [facility] [address] JOSE ARMANDO 120 [place] [address] Tip Morillo DPM 3006 [facility] 5 [place] [address] 03/21/2025 11:00 AM EDT Office Visit [facility] [place] [facility] [address] [facility] 110 [place] [address] Erin Tariq PA [address] Jose Armando [address] [place] [address] documented as of this encounter Goals Goal [...] documented as of this encounter Care Teams Hasher Machine Operator Relationship Specialty Start Date End Date Jer Rizo MD [address] [facility] 110 [place] [address] PCP - General Internal Medicine 01/03/23 Jer Rizo MD [address] [facility] 110 [place] [address] PCP - Sari HERNANDEZ 05/29/24 11/25/24 Aggie Gallardo, TILE SETTER SUPERVISOR-CLAY PROCESSING FACTORY WORKER [address] [facility] 160 [place] [address] PCP - Sari HERNANDEZ 11/26/24 Aggie Gallardo, TILE SETTER SUPERVISOR-CLAY PROCESSING FACTORY WORKER [address] [facility] 160 [place] [address] Nurse Practitioner Psychiatry 06/13/24 Madyson Figueroa, BETY [address] [facility] 230 [place] [address] Registered Nurse Family Medicine 08/14/24 03/03/25 Braeden Dunham LPC Therapist Behavioral Health 11/25/24 documented as of this encounter
--- OUTSIDE RECORDS SUMMARY | 2025-03-12 14:06 | XMS_ITS | Encounter Summary ---
Author Organization [facility] Address [address] [facility] [place] [address] Care Team Providers Care Roll Forming Machine Operator Name Role Phone Jer Rizo MD Primary Care Provider Aggie Gallardo CAT DRIVER-SENIOR RD ENGINEER Unavailable Jer Rizo MD Unavailable [phone] Madyson Figueroa RN Unavailable [phone] Braeden Dunham LPC Unavailable Unavailable Aggie Gallardo CAT DRIVER-SENIOR RD ENGINEER Unavailable Encounter Details Date Type Department Care Team (Late st Contact Info) Description 11/15/2024 Abstract [facility] [place] [facility] 112 [facility] 110 [place] [address] Jer Rizo MD 112 [facility] 110 [place] [address] Social History Tobacco Use Types [...] Recorded Patient Health Questionnaire-2 Score 0 10/23/2024 [facility] of Occupat ional Health - Occupational [...] [facility] [place] [facility] [address] [facility] 160 [place] [address] Aggie Gallardo, CAT DRIVER-SENIOR RD ENGINEER [address] [facility] 160 [place] [address] 03/20/2025 3:50 PM EDT Office Visit [facility] [address] JOSE ARMANDO 120 [place] [address] Tip Morillo DPM 3006 [facility] 5 [place] [address] 03/21/2025 11:00 AM EDT Office Visit [facility] [place] [facility] [address] [facility] 110 [place] [address] Erin Tariq PA [address] Jose Armando [address] [place] [address] documented as of this encounter Goals Goal [...] documented as of this encounter Care Teams Roll Forming Machine Operator Relationship Specialty Start Date End Date Jer Rizo MD [address] [facility] 110 [place] [address] PCP - General Internal Medicine 01/03/23 Jer Rizo MD [address] [facility] 110 [place] [address] PCP - Sari HERNANDEZ 05/29/24 11/25/24 Aggie Gallardo, CAT DRIVER-SENIOR RD ENGINEER [address] [facility] 160 [place] [address] PCP - Sari HERNANDEZ 11/26/24 Aggie Gallardo, CAT DRIVER-SENIOR RD ENGINEER [address] [facility] 160 [place] [address] Nurse Practitioner Psychiatry 06/13/24 Madyson Figueroa, BETY [address] [facility] 230 [place] [address] Registered Nurse Family Medicine 08/14/24 03/03/25 Braeden Dunham LPC Therapist Behavioral Health 11/25/24 documented as of this encounter
--- OUTSIDE RECORDS SUMMARY | 2025-03-12 14:06 | XMS_ITS | Encounter Summary ---
Author Organization [facility] Address [address] [facility] [place] [address] Care Team Providers Care House Wirer Name Role Phone Jer Rizo MD Primary Care Provider [phone] Jer Rizo MD Unavailable [phone] Aggie Gallardo SECURITY SYSTEM ADMINISTRATOR-BOILER HOUSE INSPECTOR Unavailable Jer Rizo MD Unavailable [phone] Madyson Figueroa RN Unavailable [phone] Braeden Dunham LPC Unavailable Unavailable Aggie Gallardo SECURITY SYSTEM ADMINISTRATOR-BOILER HOUSE INSPECTOR Unavailable Encounter Details Date Type Department Care Team (Late st Contact Info) Description 07/11/2023 Abstract [facility] [place] [facility] 112 [facility] 110 [place] [address] Jer Rizo MD [address] [facility] 110 [place], [place] [id number] Social History Tobacco Use Types Packs/Day Years [...] [address] JOSE ARMANDO [address] [place] [address] Aggie Gallardo, SECURITY SYSTEM ADMINISTRATOR-BOILER HOUSE INSPECTOR [address] Jose Armando 160 [place] [address] 03/20/2025 3:50 PM EDT Office Visit [facility] [address] JOSE ARMANDO 120 [place] [address] Tip Morillo, DPM 3[address] [facility] 5 [place] [address] 03/21/2025 11:00 AM EDT Office Visit [facility] [place] [facility] [address] JOSE ARMANDO 110 [place] [address] Erin Tariq PA [address] Jose Armando 110 [place] [address] documented as of this encounter Visit Diagnoses Not on filedocumented in this encounter Additional Health Concerns Assessment Noted Time PHQ-9 Depression Total Score: 20 023 12:00 PM EDT documented as of this encounter Care Teams House Wirer Relationship Specialty Start Date End Date Jer Rizo MD [address] Jose Armando 110 [place] [address] PCP - General Internal Medicine 01/03/23 Jer Rizo MD [address] Jose Armando 110 [place] [address] PCP - Devoted 05/29/23 05/28/24 Jer Rizo MD [address] Jose Armando 110 [place] [address] PCP - Sari HERNANDEZ 05/29/24 11/25/24 Aggie Gallardo APRN-BOILER HOUSE INSPECTOR [address] [address] PCP - Sari HERNANDEZ 11/26/24 Aggie Gallardo APRN-BOILER HOUSE INSPECTOR [address] [address] Nurse Practitioner Psychiatry 06/13/24 Madyson Figueroa RN [address] [facility] 230 [place] [address] Registered Nurse Family Medicine 08/14/24 03/03/25 Braeden Dunham LPC Therapist Behavioral Health 11/25/24 documented as of this encounter
--- OUTSIDE RECORDS SUMMARY | 2025-03-12 14:06 | XMS_ITS | Encounter Summary ---
Author Organization [facility] Address [address] [facility] [place] [address] Care Team Providers Care Environmental Marketing Representative Name Role Phone Jer Rizo MD Primary Care Provider [phone] Jer Rizo MD Unavailable [phone] Aggie Gallardo FREIGHT RATE ANALYST-BUTTONHOLE MAKER Unavailable Jer Rizo MD Unavailable [phone] Madyson Figueroa RN Unavailable [phone] Braeden Dunham LPC Unavailable Unavailable Aggie Gallardo FREIGHT RATE ANALYST-BUTTONHOLE MAKER Unavailable Encounter Details Date Type Department Care Team (Late st Contact Info) Description 07/18/2023 Abstract [facility] [place] [facility] 112 [facility] 110 [place] [address] Jer Rizo MD 112 [facility] 110 [place], [place] [id number] Social History Tobacco Use Types Packs/Day Years [...] [address] JOSE ARMANDO [address] [place] [address] Aggie Gallardo, FREIGHT RATE ANALYST-BUTTONHOLE MAKER [address] Jose Armando 160 [place] [address] 03/20/2025 3:50 PM EDT Office Visit [facility] [address] JOSE ARMANDO [address] [place] [address] Tip Morillo, DPM 3006 [facility] 5 [place] [address] 03/21/2025 11:00 AM EDT Office Visit [facility] [place] [facility] [address] JOSE ARMANDO [address] [place] [address] Erin Tariq PA [address] Jose Armando 110 [place] [address] documented as of this encounter Visit Diagnoses Not on filedocumented in this encounter Additional Health Concerns Assessment Noted Time PHQ-9 Depression Total Score: 20 023 12:00 PM EDT documented as of this encounter Care Teams Environmental Marketing Representative Relationship Specialty Start Date End Date Jer Rizo MD [address] Jose Armando [address] [place] [address] PCP - General Internal Medicine 01/03/23 Jer Rizo MD [address] Jose Armando [address] [place] [address] PCP - Devoted 05/29/23 05/28/24 Jer Rizo MD [address] Jose Armando 110 [place] [address] PCP - Sari HERNANDEZ 05/29/24 11/25/24 Aggie Gallardo APRN-BUTTONHOLE MAKER [address] [address] PCP - Sari HERNANDEZ 11/26/24 Aggie Gallardo APRN-BUTTONHOLE MAKER [address] [address] Nurse Practitioner Psychiatry 06/13/24 Madyson Figueroa RN [address] [facility] 230 [place] [address] Registered Nurse Family Medicine 08/14/24 03/03/25 Braeden Dunham LPC Therapist Behavioral Health 11/25/24 documented as of this encounter
--- OUTSIDE RECORDS SUMMARY | 2025-03-12 14:06 | XMS_ITS | Encounter Summary ---
Author Organization [facility] Address [address] [facility] [place] [address] Care Team Providers Care Insole Taper Name Role Phone Jer Rizo MD Primary Care Provider [phone] Aggie Gallardo RADIOLOGY EQUIPMENT SERVICER-ROBOTICS ENGINEER Unavailable Jer Rizo MD Unavailable [phone] Madyson Figueroa RN Unavailable [phone] Braeden Dunham LPC Unavailable Unavailable Aggie Gallardo RADIOLOGY EQUIPMENT SERVICER-ROBOTICS ENGINEER Unavailable Encounter Details Date Type Department Care Team (Late st Contact Info) Description 11/15/2024 Abstract [facility] [place] [facility] 112 [facility] 110 [place] [address] Jer Rizo MD 112 [facility] 110 [place] [address] Social History Tobacco Use Types [...] and Family Not on file 12/04/2023 Attends [employer]ze Services Not on file 12/03 Do you [...] any time in the past 12 m [facility], were you homeless or living [...] [facility] [place] [facility] [address] [facility] 160 [place] [address] Aggie Gallardo, RADIOLOGY EQUIPMENT SERVICER-ROBOTICS ENGINEER [address] [email or web address] 160 [place] [address] 03/20/2025 3:50 PM EDT Office Visit [facility] [address] JOSE ARMANDO [address] [place] [address] Tip Morillo DPM 3006 [facility] 5 [place] [address] 03/21/2025 11:00 AM EDT Office Visit [facility] [place] [facility] [address] [facility] 110 [place] [address] Erin Tariq PA [address] Jose Armando [address] [place] [address] documented as of this encounter Goals Goal [...] documented as of this encounter Care Teams Insole Taper Relationship Specialty Start Date End Date Jer Rizo MD [address] [facility] 110 [place] [address] PCP - General Internal Medicine 01/03/23 Jer Rizo MD [address] [facility] 110 [place] [address] PCP - Sari HERNANDEZ 05/29/24 11/25/24 Aggie Gallardo, RADIOLOGY EQUIPMENT SERVICER-ROBOTICS ENGINEER [address] [facility] 160 [place] [address] PCP - Sari HERNANDEZ 11/26/24 Aggie Gallardo, RADIOLOGY EQUIPMENT SERVICER-ROBOTICS ENGINEER [address] [facility] 160 [place] [address] Nurse Practitioner Psychiatry 06/13/24 Madyson Figueroa, BETY [address] [facility] [[email or web address] 230 [place] [address] Registered Nurse Family Medicine 08/14/24 03/03/25 Braeden Dunham LPC Therapist Behavioral Health 11/25/24 documented as of this encounter
--- OUTSIDE RECORDS SUMMARY | 2025-03-12 14:06 | XMS_ITS | Encounter Summary ---
Author Organization [facility] Address [address] [facility] [address] Care Team Providers Care Apprise Counselor Name Role Phone Jer Rizo MD Primary Care Provider [phone] Aggie Gallardo BOOK REPAIRER-MANAGER NICU Unavailable Jer Rizo MD Unavailable [phone] Madyson Figueroa RN Unavailable [phone] Braeden Dunham LPC Unavailable Unavailable Aggie Gallardo BOOK REPAIRER-MANAGER NICU Unavailable Reason for Visit * Reason Comments Med Refill Encounter Details Date Type Department Care Team (Late st Contact Info) Description 11/09/2024 [facility] 112 [facility] 160 [place] [address] Aggie Gallardo, BOOK REPAIRER-MANAGER NICU 112 [facility] 160 [place] [address] JENN (generalized anxiety disorder) Social History Tobacco [...] and Family Not on file 12/04/2023 Attends Voodoo Services Not on file 12/03 Do you [...] Recorded Patient Health Questionnaire-2 Score 0 10/23/2024 [facility] of Occupat ional Health - [...] [address] JOSE ARMANDO [address] [place] [address] Aggie Gallardo, BOOK REPAIRER-MANAGER NICU [address] Jose Armando 160 [place] [address] 03/20/2025 3:50 PM EDT Office Visit [facility] [address] JOSE ARMANDO [address] [place] [address] Tip Morillo DPM 3006 [facility] Jose Armando 5 [place] [address] 03/21/2025 11:00 AM EDT Office Visit [facility] [place] [facility] [address] JOSE ARMANDO [address] [place] [address] Erin Tariq PA 112 [facility] 110 [place] [address] documented as of this encounter Goals Goal Patient Goal Type Associated Problems Recent Progress Patient-Stated? Author Help patient manage antidepressant medication Care Plan Patient on antidepressant monitoring plan Francia Bryant MA documented as of this encounter Visit Diagnoses Diagnosis JENN (generalized anxiety disorder) Generalized anxiety disorder Diabetes 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, unspecified whether supervisor intermediates insulin use (HCC)- Primary Pain due to [...] documented as of this encounter Care Teams Apprise Counselor Relationship Specialty Start Date End Date Jer Rizo MD 112 [facility] 110 [place] [address] PCP - General Internal Medicine 01/03/23 Jer Rizo MD 112 [facility] 110 [place] [address] PCP - Sari HERNANDEZ 05/29/24 11/25/24 Aggie Gallardo, BOOK REPAIRER-MANAGER NICU 112 [facility] 160 [place] [address] PCP - Sari HERNANDEZ 11/26/24 Aggie Gallardo BOOK REPAIRER-MANAGER NICU 112 [facility] 160 [place] [address] Nurse Practitioner Psychiatry 06/13/24 Madyson Figueroa, BETY [address] [place] [address] Registered Nurse Family Medicine 08/14/24 03/03/25 Braeden Dunham LPC Therapist Behavioral Health 11/25/24 documented as of this encounter
--- OUTSIDE RECORDS SUMMARY | 2025-03-12 14:06 | XMS_ITS | Encounter Summary ---
Author Organization [facility] Address [address] [facility] [address] Care Team Providers Care Drip Molder Name Role Phone Jer Rizo MD Primary Care Provider [phone] Aggie Gallardo TRUCK SWITCHER-TAR LEVELER Unavailable Jer Rizo MD Unavailable [phone] Madyson Figueroa RN Unavailable [phone] Braeden Dunham LPC Unavailable Unavailable Aggie Gallardo TRUCK SWITCHER-TAR LEVELER Unavailable Encounter Details Date Type Department Care Team (Late st Contact Info) Description 11/08/2024 Abstract [facility] [place] [facility] 112 [facility] 110 [place] [address] Jer Rizo MD 112 [facility] 110 [place] [address] Social History Tobacco Use Types [...] any clubs o r organizations such as religious groups, unions, fraternal or athletic groups, or [...] Recorded Patient Health Questionnaire-2 Score 0 10/23/2024 [facility] of Occupat ional Health - [...] were you homeless or living in a snf (including now)? No 12/04/2023 Education Answer Date [...] WAY [facility] 160 [place] [address] Aggie Gallardo, TRUCK SWITCHER-TAR LEVELER [address] [facility] 160 [place] [address] 03/20/2025 3:50 PM EDT Office Visit [facility] [address] JOSE ARMANDO 120 [place] [address] Tip Morillo DPM 3006 [facility] 5 [place] [address] 03/21/2025 11:00 AM EDT Office Visit [facility] [place] [facility] [address] [facility] 110 [place] [address] Erin Tariq PA [address] Jose Armando 110 [place] [address] documented as of this encounter Goals Goal [...] documented as of this encounter Care Teams Drip Molder Relationship Specialty Start Date End Date Jer Rizo MD 112 [facility] 110 [place] [address] PCP - General Internal Medicine 01/03/23 Jer Rizo MD 112 [facility] 110 [place] [address] PCP - Sari HERNANDEZ 05/29/24 11/25/24 Aggie Gallardo, TRUCK SWITCHER-TAR LEVELER 112 [facility] 160 [place] [address] PCP - Sari HERNANDEZ 11/26/24 Aggie Gallardo, TRUCK SWITCHER-TAR LEVELER 112 [facility] 160 [place] [address] Nurse Practitioner Psychiatry 06/13/24 Madyson Figueroa, BETY [address] [facility] 230 [place] [address] Registered Nurse Family Medicine 08/14/24 03/03/25 Braeden Dunham LPC Therapist Behavioral Health 11/25/24 documented as of this encounter
--- OUTSIDE RECORDS SUMMARY | 2025-03-12 14:07 | XMS_ITS | Encounter Summary ---
Author Organization [facility] Address [address] [facility] [place] [address] Care Team Providers Care Rate Clerk Passenger Name Role Phone Jer Rizo MD Primary Care Provider [phone] Jer Rizo MD Unavailable [phone] Aggie Gallardo ONLINE MERCHANDISER-MANAGER CHINESE Unavailable Jer Rizo MD Unavailable [phone] Madyson Figueroa RN Unavailable [phone] Braeden Dunham LPC Unavailable Unavailable Aggie Gallardo ONLINE MERCHANDISER-MANAGER CHINESE Unavailable Encounter Details Date Type Department Care Team (Late st Contact Info) Description 12/26/2023 Abstract [facility] [place] [facility] 112 [facility] 110 [place] [address] Jer Rizo MD 112 [facility] 110 [place], [place] [address] Social History Tobacco Use Types Packs/Day Years [...] and Family Not on file 12/04/2023 Attends Sabianism Services Not on file 12/03 Do you belong to any clubs o r organizations such as presybeterian groups, unions, fraternal or athletic groups, or [...] Recorded Patient Health Questionnaire-2 Score 2 12/06/2023 [facility] of Occupat ional Health - [...] time in the past 12 m [facility], were you homeless or living in a detention (including now)? No 12/04/2023 Comments Unknown Sex [...] [facility] [place] [facility] [address] [facility] 160 [place] [address] Aggie Gallardo, ONLINE MERCHANDISER-MANAGER CHINESE [address] [facility] 160 [place] [address] 03/20/2025 3:50 PM EDT Office Visit [facility] [address] [facility] 120 [place] [address] Tip Morillo, DPM 3006 [facility] 5 [place] [address] 03/21/2025 11:00 AM EDT Office Visit [facility] [place] [facility] [address] [facility] 110 [place] [address] Erin Tariq, PA [address] [facility] 110 [place] [address] documented as of this encounter Goals Goal [...] documented as of this encounter Care Teams Rate Clerk Passenger Relationship Specialty Start Date End Date Jer Rizo MD [address] Jose Armando 110 [place] [address] PCP - General Internal Medicine 01/03/23 Jer Rizo MD [address] Jose Armando 110 [place] [address] PCP - Devoted 05/29/23 05/28/24 Jer Rizo MD [address] Jose Armando 110 [place] [address] PCP - Sari HERNANDEZ 05/29/24 11/25/24 Aggie Gallardo, ONLINE MERCHANDISER-MANAGER CHINESE [address] Jose Armando 160 [place] [address] PCP - Sari HERNANDEZ 11/26/24 Aggie Gallardo, ONLINE MERCHANDISER-MANAGER CHINESE [address] Jose Armando 160 [place] [address] Nurse Practitioner Psychiatry 06/13/24 Madyson Figueroa, BETY [address] Jose Armando 230 [place] [address] Registered Nurse Family Medicine 08/14/24 03/03/25 Braeden Dunham LPC Therapist Behavioral Health 11/25/24 documented as of this encounter
--- OUTSIDE RECORDS SUMMARY | 2025-03-12 14:07 | XMS_ITS | Encounter Summary ---
Author Organization [facility] Address [address] [facility] [place] [address] Care Team Providers Care Supervisor Acoustical Tile Carpenters Name Role Phone Jer Rizo MD Primary Care Provider [phone] Jer Rizo MD Unavailable [phone] Aggie Gallardo HAND PLEATER-MANAGER TAX Unavailable Jer Rizo MD Unavailable [phone] Madyson Figueroa RN Unavailable [phone] Braeden Dunham LPC Unavailable Unavailable Aggie Gallardo HAND PLEATER-MANAGER TAX Unavailable Encounter Details Date Type Department Care Team (Late st Contact Info) Description 12/25/2023 Abstract [facility] [place] [facility] 112 [facility] 110 [place] [address] Jer Rizo MD 112 [facility] 110 [place], [place] [address] Social History Tobacco Use Types Packs/Day Years [...] and Family Not on file 12/04/2023 Attends Yazidism Services Not on file 12/03 Do you belong to any clubs o r organizations such as yazidism groups, unions, fraternal or athletic groups, or [...] Recorded Patient Health Questionnaire-2 Score 2 12/06/2023 [facility] of Occupat ional Health - Occupational [...] any time in the past 12 m [facility], were you homeless or living in a correction (including now)? No 12/04/2023 Comments Unknown Sex [...] [facility] [facility] [address] [facility] 160 [place] [address] Aggie Gallardo, HAND PLEATER-MANAGER TAX [address] [facility] 160 [place] [address] 03/20/2025 3:50 PM EDT Office Visit [facility] [address] [facility] 120 [place] [address] Tip Morillo, DPM 3006 [facility] 5 [place] [address] 03/21/2025 11:00 AM EDT Office Visit [facility] [place] [facility] [address] [facility] 110 [place] [address] Erin Tariq, PA [address] [facility] 110 [place] [address] documented as of this encounter Goals Goal [...] as of this encounter Care Teams Supervisor Acoustical Tile Carpenters Relationship Specialty Start Date End Date Jer Rizo MD [address] Armando 110 [place] [address] PCP - General Internal Medicine 01/03/23 Jer Rizo MD [address] Jose Armando 110 [place] [address] PCP - Devoted 05/29/23 05/28/24 Jer Rizo MD [address] Jose Armando 110 [place] [address] PCP - Sari HERNANDEZ 05/29/24 11/25/24 Aggie Gallardo, HAND PLEATER-MANAGER TAX [address] Armando 160 [place] [address] PCP - Sari HERNANDEZ 11/26/24 Aggie Gallardo, HAND PLEATER-MANAGER TAX [address] Jose Armando [address] [place] [address] Nurse Practitioner Psychiatry 06/13/24 Madyson Figueroa, BETY [address] 230 [place] [address] Registered Nurse Family Medicine 08/14/24 03/03/25 Braeden Dunham LPC Therapist Behavioral Health 11/25/24 documented as of this encounter
--- OUTSIDE RECORDS SUMMARY | 2025-03-12 14:07 | XMS_ITS | Encounter Summary ---
Author Organization [facility] Address [address] [facility] [place] [address] Care Team Providers Care Radiology Director Name Role Phone Jer Rizo MD Primary Care Provider [phone] Aggie Gallardo RADIATION ENGINEER-PERSONAL CARER Unavailable Madyson Figueroa RN Unavailable [phone] Braeden Dunham LPC Unavailable Unavailable Aggie Gallardo RADIATION ENGINEER-PERSONAL CARER Unavailable Encounter Details Date Type Department Care Team (Late st Contact Info) Description 12/19/2024 Abstract [facility] [place] [facility] 112 [facility] 110 [place] [address] Jer Rizo MD 112 [facility] 110 [place] [address] Social History Tobacco Use Types [...] Date Recorded Patient Health Questionnaire-2 Score 2 12/17/2024 [facility] - Occupational Stress Questionnaire Answer Date [...] [facility] [place] [facility] [address] [facility] 160 [place] [address] Aggie Gallardo, RADIATION ENGINEER-PERSONAL CARER [address] [facility] 160 [place] [address] 03/20/2025 3:50 PM EDT Office Visit [facility] [address] [facility] 120 [place] [address] Tip Morillo, DPM 3006 [facility] 5 [place] [address] 03/21/2025 11:00 AM EDT Office Visit [facility] [place] [facility] [address] [facility] 110 [place] [address] Erin Tariq, PA [address] [facility] 110 [place] [address] documented as of this encounter Goals Goal [...] Assessment Noted Time PHQ-9 Depression Total Score: 9 12/18/19 25 10:00 AM EDT documented as of this encounter Care Teams Radiology Director Relationship Specialty Start Date End Date Jer Rizo MD [address] Jose Armando 110 [place] [address] PCP - General Internal Medicine 01/03/23 Aggie Gallardo, RADIATION ENGINEER-PERSONAL CARER [address] Jose Armando 160 [place] [address] PCP - Sari HERNANDEZ 11/26/24 Aggie Gallardo, RADIATION ENGINEER-PERSONAL CARER [address] [facility] 160 [place] [address] Nurse Practitioner Psychiatry 06/13/24 Madyson Figueroa, BETY [address] [facility] 230 [place] [address] Registered Nurse Family Medicine 08/14/24 03/03/25 Braeden Dunham LPC Therapist Behavioral Health 11/25/24 documented as of this encounter
--- OUTSIDE RECORDS SUMMARY | 2025-03-12 14:07 | XMS_ITS | Encounter Summary ---
Author Organization [facility] Address [address] [facility] [address] Care Team Providers Care Telegraphic Typewriter Mechanic Name Role Phone Jer Rizo MD Primary Care Provider [phone] Aggie Gallardo MOBILE SALES EXPERT-SECURITY SHIFT MANAGER Unavailable Madyson Figueroa RN Unavailable [phone] Braeden Dunham LPC Unavailable Unavailable Aggie Gallardo MOBILE SALES EXPERT-SECURITY SHIFT MANAGER Unavailable Encounter Details Date Type Department Care Team (Late st Contact Info) Description 12/13/2024 Abstract [facility] [place] [facility] 112 [facility] 110 [place] [id number] Jer Rizo MD 112 [facility] 110 [place] [address] Social History Tobacco Use Types [...] and Family Not on file 12/04/2023 Attends Buddhism Services Not on file 12/03 Do you belong to any clubs o r organizations such as judaism groups, unions, fraternal or athletic groups, or [...] Recorded Patient Health Questionnaire-2 Score 2 12/17/2024 [facility] [...] [facility] [place] [facility] [address] [facility] 160 [place] [address] Aggie Gallardo, MOBILE SALES EXPERT-SECURITY SHIFT MANAGER [address] [facility] 160 [place] [address] 03/20/2025 3:50 PM EDT Office Visit [facility] [address] [facility] 120 [place] [address] Tip Morillo, DPM 3006 [facility] 5 [place] [address] 03/21/2025 11:00 AM EDT Office Visit [facility] [place] [facility] [address] [facility] 110 [place] [address] Erin Tariq, PA [address] [facility] 110 [place] [address] documented as of this encounter Goals Goal [...] documented as of this encounter Care Teams Telegraphic Typewriter Mechanic Relationship Specialty Start Date End Date Jer Rizo MD [address] [facility] 110 [place] [address] PCP - General Internal Medicine 01/03/23 Aggie Gallardo, MOBILE SALES EXPERT-SECURITY SHIFT MANAGER [address] [facility] 160 [place] [address] PCP - Sari HERNANDEZ 11/26/24 Aggie Gallardo, MOBILE SALES EXPERT-SECURITY SHIFT MANAGER [address] [facility] 160 [place] [address] Nurse Practitioner Psychiatry 06/13/24 Madyson Figueroa, BETY [address] [facility] 230 [place] [address] Registered Nurse Family Medicine 08/14/24 03/03/25 Braeden Dunham LPC Therapist Behavioral Health 11/25/24 documented as of this encounter
--- OUTSIDE RECORDS SUMMARY | 2025-03-12 14:07 | XMS_ITS | Encounter Summary ---
Author Organization [facility] Address [address] [place] [address] Care Team Providers Care Finisher Tailor Apprentice Name Role Phone Jer Rizo MD Primary Care Provider [phone] Aggie Gallardo FOREST FIRE CONTROL OFFICER-GASTROENTEROLOGY TECHNICIAN Unavailable Madyson Figueroa RN Unavailable [phone] Braeden Dunham LPC Unavailable Unavailable Aggie Gallardo FOREST FIRE CONTROL OFFICER-GASTROENTEROLOGY TECHNICIAN Unavailable Encounter Details Date Type Department Care Team (Late st Contact Info) Description 01/02/2025 Abstract [facility] [place] [facility] 112 [facility] 110 [place] [address] Jer Rizo MD 112 [facility] 110 [place] [address] Social History Tobacco Use Types [...] Recorded Patient Health Questionnaire-2 Score 2 12/17/2024 [facility] - Occupational Stress Questionnaire Answer Date [...] time in the past 12 m [facility], were you homeless or living in [...] [facility] [place] [facility] [address] [facility] 160 [place] [address] Aggie Gallardo, FOREST FIRE CONTROL OFFICER-GASTROENTEROLOGY TECHNICIAN [address] [facility] 160 [place] [address] 03/20/2025 3:50 PM EDT Office Visit [facility] [address] [facility] 120 [place] [address] Tip Morillo, DPM 3006 [facility] 5 [place] [address] 03/21/2025 11:00 AM EDT Office Visit [facility] [place] [facility] [address] [facility] 110 [place] [address] Erin Tariq, PA [address] [facility] 110 [place] [address] documented as of this encounter Goals Goal [...] documented as of this encounter Care Teams Finisher Tailor Apprentice Relationship Specialty Start Date End Date Jer Rizo MD [address] Jose Armando 110 [place] [address] PCP - General Internal Medicine 01/03/23 Aggie Gallardo, FOREST FIRE CONTROL OFFICER-GASTROENTEROLOGY TECHNICIAN [address] Jose Armando 160 [place] [address] PCP - Sari HERNANDEZ 11/26/24 Aggie Gallardo, FOREST FIRE CONTROL OFFICER-GASTROENTEROLOGY TECHNICIAN [address] [facility] 160 [place] [address] Nurse Practitioner Psychiatry 06/13/24 Madyson Figueroa, BETY [address] [facility] 230 [place] [address] Registered Nurse Family Medicine 08/14/24 03/03/25 Braeden Dunham LPC Therapist Behavioral Health 11/25/24 documented as of this encounter
--- OUTSIDE RECORDS SUMMARY | 2025-03-12 14:07 | XMS_ITS | Encounter Summary ---
Author Organization [facility] Address [address] [facility] [place] [address] Care Team Providers Care Drywall Taper Helper Name Role Phone Jer Rizo MD Primary Care Provider [phone] Jer Rizo MD Unavailable [phone] Aggie Gallardo PHOTOCOPYING MACHINE OPERATOR-PIANO ASSEMBLER Unavailable Jer Rizo MD Unavailable [phone] Madyson Figueroa RN Unavailable [phone] Braeden Dunham LPC Unavailable Unavailable Aggie Gallardo PHOTOCOPYING MACHINE OPERATOR-PIANO ASSEMBLER Unavailable Encounter Details Date Type Department Care Team (Late st Contact Info) Description 12/12/2023 Abstract [facility] [place] [facility] 112 [facility] 110 [place] [address] Jer Rizo MD 112 [facility] 110 [place], [place] [address] Social History Tobacco Use Types Packs/Day Years [...] Recorded Patient Health Questionnaire-2 Score 2 12/06/2023 [facility] - [...] in the past 12 m [facility], were you homeless or living in a halfway (including now)? No 12/04/2023 Comments Unknown Sex [...] [facility] [place] [facility] [address] [facility] 160 [place] [address] Aggie Gallardo, PHOTOCOPYING MACHINE OPERATOR-PIANO ASSEMBLER [address] [facility] 160 [place] [address] 03/20/2025 3:50 PM EDT Office Visit [facility] [address] [facility] 120 [place] [address] Tip Morillo, DPM 3006 [facility] 5 [place] [address] 03/21/2025 11:00 AM EDT Office Visit [facility] [place] [facility] [address] [facility] 110 [place] [address] Erin Tariq, PA [address] [facility] 110 [place] [address] documented as of this encounter Goals Goal [...] documented as of this encounter Care Teams Drywall Taper Helper Relationship Specialty Start Date End Date Jer Rizo MD [address] Jose Armando 110 [place] [address] PCP - General Internal Medicine 01/03/23 Jer Rizo MD [address] Jose Armando 110 [place] [address] PCP - Devoted 05/29/23 05/28/24 Jer Rizo MD [address] Jose Armando 110 [place] [address] PCP - Sari HERNANDEZ 05/29/24 11/25/24 Aggie Gallardo, PHOTOCOPYING MACHINE OPERATOR-PIANO ASSEMBLER [address] Jose Armando 160 [place] [address] PCP - Sari HERNANDEZ 11/26/24 Aggie Gallardo, PHOTOCOPYING MACHINE OPERATOR-PIANO ASSEMBLER [address] Jose Armando 160 [place] [address] Nurse Practitioner Psychiatry 06/13/24 Madyson Figueroa, BETY [address] Jose Armando 230 [place] [address] Registered Nurse Family Medicine 08/14/24 03/03/25 Braeden Dunham LPC Therapist Behavioral Health 11/25/24 documented as of this encounter
--- OUTSIDE RECORDS SUMMARY | 2025-03-12 14:08 | XMS_ITS | Clinical Summary ---
Author Organization [facility] Address [address] [place] [address] Care Team Providers Care Truck Railroad And Bus Motor Mechanic Name Role Phone Unavailable Primary Care Provider Unavailabl e Source Comments The following information is NOT included in Care Everywhere downloads:Psychiatric notes, ECG results, Cardiac Rehab notes, Pulmonary Function notes, data from SmartForms (includes but not limited toPregnancy data,audiograms, eye exams, pre-surgical evaluation notes, well-child exam data).[facility] Social History Tobacco Use Types Packs/Day Years Used Date Smoking Tobacco: Never Assessed Comments Unknown Sex and Gender Information Value Date Recorded Sex Assigned at Not on file Legal Sex Female 11:37 AM EDT Gender Identity Not on file Sexual Orientation Not on file Last Filed Vital Signs Vital Sign Reading Time Taken Comments Blood Pressure 123/82 01/25/2022 11:40 AM EDT Pulse 76 01/25/2022 11:40 AM EDT Temperature - - Respiratory Rate 20 01/25/2022 11:40 AM EDT Oxygen Saturation 94% 01/25/2022 11:40 AM EDT ra Inhaled Oxygen Concentration - - Weight - - Height - - Body Mass Index - - Plan of Treatment Health Maintenance Due Date Last Done Comments Colonoscopy 1961 HIV Test 1976 Hepatitis C Antibody 1979 Tdap Booster 1979 Hepatitis A (HAV) Vaccine (optional start 19+ years) 1 Pap Smear 1982 Mammography 2001 CRC Screening 2006 Cholesterol 2006 Cologuard (Stool DNA) 2006 FIT 2006 Pneumococcal Vaccine(s) (50+ yrs) (1 of 1 - PCV) 03/01 Shingles (RZV) Vaccine (1 of 2) 2011 Hepatitis B (HBV) Vaccine (optional start 60+ years) 1 Annual Wellness Visit (G0438) 05/29/2022 COVID-19 Vaccine (2023-25 season) 2025 Influenza Vaccine (#1) 2025 RSV vaccine (adult) (1 - 1-dose 75+ series) 2036 Insurance [employer]
--- OUTSIDE RECORDS SUMMARY | 2025-03-12 14:08 | XMS_ITS | Encounter Summary ---
Author Organization [facility] Address [address] [facility] [place] [address] Care Team Providers Care Meter Reader Chief Name Role Phone Jer Rizo MD Primary Care Provider [phone] Jer Rizo MD Unavailable [phone] Aggie Gallardo LACROSSE PLAYER-AIRCRAFT LAUNCH AND RECOVERY TECHNICIAN Unavailable Jer Rizo MD Unavailable [phone] Madyson Figueroa RN Unavailable [phone] Braeden Dunham LPC Unavailable Unavailable Aggie Gallardo LACROSSE PLAYER-AIRCRAFT LAUNCH AND RECOVERY TECHNICIAN Unavailable Encounter Details Date Type Department Care Team (Late st Contact Info) Description 03/25/2024 Abstract [facility] [place] [facility] 112 [facility] 110 [place] [address] Jer Rizo MD 112 [facility] 110 [place], [place] [address] Social History Tobacco Use Types Packs/Day Years [...] and Family Not on file 12/04/2023 Attends Jewish Services Not on file 12/03 Do you [...] Recorded Patient Health Questionnaire-2 Score 2 12/06/2023 [facility] - Occupational [...] [facility] [place] [facility] [address] [facility] [place] [address] Aggie Gallardo, LACROSSE PLAYER-AIRCRAFT LAUNCH AND RECOVERY TECHNICIAN [address] [facility] 160 [place] [address] 03/20/2025 3:50 PM EDT Office Visit [facility] [address] [facility] 120 [place] [address] Tip Morillo DPM 8026 [facility] 5 [place] [address] 03/21/2025 11:00 AM EDT Office Visit [facility] [place] [facility] [address] JOSE ARMANDO 110 [place] [address] Erin Tariq PA [address] Jose Armando 110 [place] [address] documented as of this encounter Goals Goal [...] documented as of this encounter Care Teams Meter Reader Chief Relationship Specialty Start Date End Date Jer Rizo MD [address] Jose Armando 110 [place] [address] PCP - General Internal Medicine 01/03/23 Jer Rizo MD [address] [facility] 110 [place] [address] PCP - Devoted 05/29/23 05/28/24 Jer Rizo MD [address] [facility] 110 [place] [address] PCP - Sari HERNANDEZ 05/29/24 11/25/24 Aggie Gallardo, LACROSSE PLAYER-AIRCRAFT LAUNCH AND RECOVERY TECHNICIAN [address] [facility] 160 [place] [address] PCP - Sari HERNANDEZ 11/26/24 Aggie Gallardo, LACROSSE PLAYER-AIRCRAFT LAUNCH AND RECOVERY TECHNICIAN [address] [facility] 160 [place] [address] Nurse Practitioner Psychiatry 06/13/24 Madyson Figueroa, BETY [address] Jose Armando [address] [place] [address] Registered Nurse Family Medicine 08/14/24 03/03/25 Braeden Dunham LPC Therapist Behavioral Health 11/25/24 documented as of this encounter
--- OUTSIDE RECORDS SUMMARY | 2025-03-12 14:08 | XMS_ITS | Encounter Summary ---
Author Organization [facility] Address [address] [facility] [place] [address] Care Team Providers Care Multiple Punch Press Operator Name Role Phone Jer Rizo MD Primary Care Provider [phone] Aggie Gallardo EXPERIMENTAL MACHINIST-CUSTOM APPLICATOR Unavailable Braeden Dunham [facility] Unavailable Unavailable Aggie Gallardo EXPERIMENTAL MACHINIST-CUSTOM APPLICATOR Unavailable Reason for Visit * Reason Comments Med Change Request Encounter Details Date Type Department Care Team (Late st Contact Info) Description 03/06/2025 Refill [facility] [place] [facility] [address] [facility] 110 [place] [address] Erin Tariq, TEETEE [address] [facility] 110 [place] [address] Type 2 diabetes mellitus with other specified complication, without long-term current use of insulin (HCC) Social History Tobacco Use Types Packs/Day [...] and Family Not on file 12/04/2023 Attends Restorationism Services Not on file 12/03 Do you belong to any clubs o r organizations such as congregational groups, unions, fraternal or athletic groups, or [...] Recorded Patient Health Questionnaire-2 Score 2 12/17/2024 [facility] - Occupational [...] [facility] [facility] [address] [facility] 160 [place] [address] Aggie Gallardo, EXPERIMENTAL MACHINIST-CUSTOM APPLICATOR [address] [facility] 160 [place] [address] 03/20/2025 3:50 PM EDT Office Visit [facility] [address] [facility] 120 [place] [address] Tip Morillo DPM 3[address] [facility] 5 [place] [address] 03/21/2025 11:00 AM EDT Office Visit [facility] [place] [facility] [address] [facility] 110 [place] [address] Erin Tariq PA [address] Jose Armando [address] [place] [address] documented as of this encounter Goals Goal Patient Goal Type Associated Problems Recent Progress Patient-Stated? Author Help patient manage antidepressant medication Care Plan Patient on antidepressant monitoring plan Francia Bryant MA documented as of this encounter Visit Diagnoses Diagnosis Type 2 diabetes mellitus with other specified complication, without long-term current use of insulin (HCC) Diabetes 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, unspecified whether snf insulin use (HCC)- Primary Pain due to [...] documented as of this encounter Care Teams Multiple Punch Press Operator Relationship Specialty Start Date End Date Jer Rizo MD [address] [facility] 110 [place] [address] PCP - General Internal Medicine 01/03/23 Aggie Gallardo EXPERIMENTAL MACHINIST-CUSTOM APPLICATOR [address] [facility] 160 [place] [address] PCP - Sari HERNANDEZ 11/26/24 Aggie Gallardo EXPERIMENTAL MACHINIST-CUSTOM APPLICATOR [address] [facility] 160 [place] [address] Nurse Practitioner Psychiatry 06/13/24 Braeden Dunham LPC Therapist Behavioral Health 11/25/24 documented as of this encounter
--- OUTSIDE RECORDS SUMMARY | 2025-03-12 14:08 | XMS_ITS | Encounter Summary ---
Author Organization [facility] Address [address] [facility] [place] [address] Care Team Providers Care Insurance Administrative Assistant Name Role Phone Jer Rizo MD Primary Care Provider [phone] Aggie Gallardo CAFETERIA CLERK-SALESPERSON [employer] Unavailable Madyson Figueroa RN Unavailable [phone] Braeden Dunham LPC Unavailable Unavailable Aggie Gallardo CAFETERIA CLERK-SALESPERSON [employer] Unavailable Encounter Details Date Type Department Care Team (Late st Contact Info) Description 12/24/2024 Abstract [facility] [place] [facility] 112 [facility] 110 [place] [phone] Jer Rizo MD 112 [facility] 110 [place] [address] Social History Tobacco Use Types [...] Patient Health Questionnaire-2 Score 2 12/17/[address] [facility] - Occupational Stress Questionnaire Answer Date [...] any time in the past 12 m [facility], were you homeless or living [...] [address] [facility] 160 [place] [address] Aggie Gallardo, CAFETERIA CLERK-SALESPERSON [employer] [address] [facility] 160 [place] [address] 03/20/2025 3:50 PM EDT Office Visit [facility] [address] [facility] 120 [place] [address] Tip Morillo, DPM 3006 [facility] 5 [place] [address] 03/21/2025 11:00 AM EDT Office Visit [facility] [place] [facility] [address] [facility] 110 [place] [address] Erin Tariq, PA [address] [facility] 110 [place] [address] documented as of this encounter Goals Goal [...] documented as of this encounter Care Teams Insurance Administrative Assistant Relationship Specialty Start Date End Date Jer Rizo MD [address] Jose Armando 110 [place] [address] PCP - General Internal Medicine 01/03/23 Aggie Gallardo, CAFETERIA CLERK-SALESPERSON [employer] [address] Jose Armando 160 [place] [address] PCP - Sari HERNANDEZ 11/26/24 Aggie Gallardo, CAFETERIA CLERK-SALESPERSON [employer] [address] [facility] 160 [place] [address] Nurse Practitioner Psychiatry 06/13/24 Madyson Figueroa, BETY [address] [facility] 230 [place] [address] Registered Nurse Family Medicine 08/14/24 03/03/25 Braeden Dunham LPC Therapist Behavioral Health 11/25/24 documented as of this encounter
--- OUTSIDE RECORDS SUMMARY | 2025-03-12 14:08 | XMS_ITS | Encounter Summary ---
Author Organization [facility] Address [address] [facility] [place] [address] Care Team Providers Care Television Reporter Name Role Phone Jer Rizo MD Primary Care Provider [phone] Jer Rizo MD Unavailable [phone] Aggie Gallardo SENIOR LINUX SYSTEMS ADMINISTRATOR-METAL WINDOW SCREEN ASSEMBLER Unavailable Jer Rizo MD Unavailable [phone] Madyson Figueroa RN Unavailable [phone] Braeden Dunham LPC Unavailable Unavailable Aggie Gallardo SENIOR LINUX SYSTEMS ADMINISTRATOR-METAL WINDOW SCREEN ASSEMBLER Unavailable Encounter Details Date Type Department Care Team (Late st Contact Info) Description 02/22/[address] [place] [facility] 112 [facility] 110 [place] [address] Jer Rizo MD 112 [facility] 110 [place], [place] [address] Social History Tobacco Use Types Packs/Day Years [...] and Family Not on file 12/04/2023 Attends Alevism Services Not on file 12/03 Do you belong to any clubs o r organizations such as holiness groups, unions, fraternal or athletic groups, or [...] 2 12/06/2023 [facility] - [...] in the past 12 [address] [facility], were you homeless or living in a mcc (including now)? No 12/04/2023 Comments Unknown Sex [...] [facility] [place] [facility] [address] [facility] 160 [place] [address] Aggie Gallardo, SENIOR LINUX SYSTEMS ADMINISTRATOR-METAL WINDOW SCREEN ASSEMBLER [address] [facility] 160 [place] [address] 03/20/2025 3:50 PM EDT Office Visit [facility] [address] [facility] 120 [place] [address] Tip Morillo, DPM 3006 [facility] 5 [place] [address] 03/21/2025 11:00 AM EDT Office Visit [facility] [place] [facility] [address] [facility] 110 [place] [address] Erin Tariq, PA [address] [facility] 110 [place] [address] documented as of this encounter Goals Goal [...] documented as of this encounter Care Teams Television Reporter Relationship Specialty Start Date End Date Jer Rizo MD [address] Jose Armando [address] [place] [address] PCP - General Internal Medicine 01/03/23 Jer Rizo MD [address] Jose Armando 110 [place] [address] PCP - Devoted 05/29/23 05/28/24 Jer Rizo MD [address] Jose Armando [address] [place] [address] PCP - Sari HERNANDEZ 05/29/24 11/25/24 Aggie Gallardo, SENIOR LINUX SYSTEMS ADMINISTRATOR-METAL WINDOW SCREEN ASSEMBLER [address] Jose Armando [address] [place] [address] PCP - Sari HERNANDEZ 11/26/24 Aggie Gallardo, SENIOR LINUX SYSTEMS ADMINISTRATOR-METAL WINDOW SCREEN ASSEMBLER [address] Jose Armando [address] [place] [address] Nurse Practitioner Psychiatry 06/13/24 Madyson Figueroa, BETY [address] Jose Armando [address] [place] [address] Registered Nurse Family Medicine 08/14/24 03/03/25 Braeden Dunham LPC Therapist Behavioral Health 11/25/24 documented as of this encounter
--- OUTSIDE RECORDS SUMMARY | 2025-03-12 14:08 | XMS_ITS | Encounter Summary ---
Author Organization [facility] Address [address] [facility] [place] [address] Care Team Providers Care National Sales Associate Name Role Phone Jer Rizo MD Primary Care Provider [phone] Jer Rizo MD Unavailable [phone] Aggie Gallardo CARPENTER REPAIRER-MOTION PICTURE CAMERA LENS TECHNICIAN Unavailable Jer Rizo MD Unavailable [phone] Madyson Figueroa RN Unavailable [phone] Braeden Dunham LPC Unavailable Unavailable Aggie Gallardo CARPENTER REPAIRER-MOTION PICTURE CAMERA LENS TECHNICIAN Unavailable Encounter Details Date Type Department Care Team (Late st Contact Info) Description 02/13/2024 Abstract [facility] [place] [facility] 112 [facility] 110 [place] [address] Jer Rizo MD 112 [facility] 110 [place], [place] [id number] Social History Tobacco Use Types Packs/Day Years [...] and Family Not on file 12/04/2023 Attends Orthodox Services Not on file 12/03 Do you belong to any clubs o r organizations such as moravian groups, unions, fraternal [...] Recorded Patient Health Questionnaire-2 Score 2 12/06/2023 [facility] Occupat ional [facility] - Occupational [...] time in the past 12 m [facility], were you homeless or living in a senior living (including now)? No 12/04/2023 Comments Unknown Sex [...] [facility] [facility] [address] [facility] 160 [place] [address] Aggie Gallardo, CARPENTER REPAIRER-MOTION PICTURE CAMERA LENS TECHNICIAN [address] [facility] 160 [place] [address] 03/20/2025 3:50 PM EDT Office Visit [facility] [address] [facility] 120 [place] [address] Tip Morillo, DPM 3006 [facility] 5 [place] [address] 03/21/2025 11:00 AM EDT Office Visit [facility] [place] [facility] [address] [facility] 110 [place] [address] Erin Tariq, PA [address] [facility] 110 [place] [address] documented as of this encounter Goals Goal [...] documented as of this encounter Care Teams National Sales Associate Relationship Specialty Start Date End Date Jer Rizo MD [address] Jose Armando 110 [place] [address] PCP - General Internal Medicine 01/03/23 Jer Rizo MD [address] Jose Armando 110 [place] [address] PCP - Devoted 05/29/23 05/28/24 Jer Rizo MD [address] Jose Armando 110 [place] [address] PCP - Sari HERNANDEZ 05/29/24 11/25/24 Aggie Gallardo, CARPENTER REPAIRER-MOTION PICTURE CAMERA LENS TECHNICIAN [address] Jose Armando 160 [place] [address] PCP - Sari HERNANDEZ 11/26/24 Aggie Gallardo, CARPENTER REPAIRER-MOTION PICTURE CAMERA LENS TECHNICIAN [address] Jose Armando 160 [place] [address] Nurse Practitioner Psychiatry 06/13/24 Madyson Figueroa, BETY [address] Jose Armando [address] [place] [address] Registered Nurse Family Medicine 08/14/24 03/03/25 Braeden Dunham LPC Therapist Behavioral Health 11/25/24 documented as of this encounter
--- OUTSIDE RECORDS SUMMARY | 2025-03-12 14:08 | XMS_ITS | Encounter Summary ---
Author Organization [facility] Address [address] [facility] [place] [address] Care Team Providers Care Customer Operations Specialist Name Role Phone Jer Rizo MD Primary Care Provider [phone] Jer Rizo MD Unavailable [phone] Aggie Gallardo JEWELRY RACKER-FARM CONSULTANT Unavailable Jer Rizo MD Unavailable [phone] Madyson Figueroa RN Unavailable [phone] Braeden Dunham LPC Unavailable Unavailable Aggie Gallardo JEWELRY RACKER-FARM CONSULTANT Unavailable Encounter Details Date Type Department Care Team (Late st Contact Info) Description 04/30/2024 Abstract [facility] [place] [facility] 112 [facility] 110 [place] [address] Jer Rizo MD 112 [facility] 110 [place], [place] [id number] Social History Tobacco Use Types Packs/Day Years [...] Recorded Patient Health Questionnaire-2 Score 4 04/17/2024 [facility] Occupat ional Health [...] any time in the past 12 m [facility], were you homeless or living [...] [address] [facility] [address] [place] [phone] Aggie Gallardo, JEWELRY RACKER-FARM CONSULTANT [address] [facility] 160 [place] [address] 03/20/2025 3:50 PM EDT Office Visit [facility] [address] [facility] 120 [place] [phone] Tip Morillo DPM 8326 [facility] 5 [place] [address] 03/21/2025 11:00 AM EDT Office Visit [facility] [place] [facility] [address] JOSE ARMANDO 110 [place] [address] Erin Tariq PA [address] [facility] 110 [place] [address] documented as of this encounter Goals Goal [...] Noted Time PHQ-9 Depression Total Score: 23 024 1:56 PM EST documented as of this encounter Care Teams Customer Operations Specialist Relationship Specialty Start Date End Date Jer Rizo MD [address] [facility] 110 [place] [address] PCP - General Internal Medicine 01/03/23 Jer Rizo MD [address] [facility] 110 [place] [address] PCP - Devoted 05/29/23 05/28/24 Jer Rizo MD [address] [facility] 110 [place] [address] PCP - Sari HERNANDEZ 05/29/24 11/25/24 Aggie Gallardo, JEWELRY RACKER-FARM CONSULTANT [address] [facility] 160 [place] [address] PCP - Sari HERNANDEZ 11/26/24 Aggie Gallardo, JEWELRY RACKER-FARM CONSULTANT [address] [facility] 160 [place] [address] Nurse Practitioner Psychiatry 06/13/24 Madyson Figueroa, BETY [address] Jose Armando [address] [place] [address] Registered Nurse Family Medicine 3/19/25 10/6/25 Braeden Dunham LPC Therapist Behavioral Health 11/25/24 documented as of this encounter
--- OUTSIDE RECORDS SUMMARY | 2025-03-12 14:08 | XMS_ITS | Encounter Summary ---
Author Organization [facility] Address [address] [facility] [place] [address] Care Team Providers Care Insurance Verification Representative Name Role Phone Jer Rizo MD Primary Care Provider [phone] Aggie Gallardo CAR SHAGGER-ATHLETIC TRAINING INTERNSHIP Unavailable Madyson Figueroa RN Unavailable [phone] Braeden Dunham LPC Unavailable Unavailable Aggie Gallardo CAR SHAGGER-ATHLETIC TRAINING INTERNSHIP Unavailable Reason for Visit * Reason Comments Med Refill Encounter Details Date Type Department Care Team (Late st Contact Info) Description 02/19/2025 Refill [facility] [address] [facility] 160 [place] [address] Aggie Gallardo, CAR SHAGGER-ATHLETIC TRAINING INTERNSHIP 112 [facility] 160 [place] [address] Bipolar affective disorder, currently depressed, moderate (HCC) [...] and Family Not on file 12/04/2023 Attends Orthodoxy Services Not on file 12/03 Do you [...] Recorded Patient Health Questionnaire-2 Score 2 12/17/2024 [facility] of Occupat ional Health - Occupational [...] [facility] [facility] [address] [facility] 160 [place] [address] Aggie Gallardo, CAR SHAGGER-ATHLETIC TRAINING INTERNSHIP [address] [facility] 160 [place] [address] 03/20/2025 3:50 PM EDT Office Visit [facility] [address] [facility] 120 [place] [address] Tip Morillo DPM 3006 [facility] 5 [place] [address] 03/21/2025 11:00 AM EDT Office Visit [facility] [place] [facility] [address] [facility] 110 [place] [address] Erin Tariq PA 112 [facility] 110 [place] [address] documented as of this encounter Goals Goal Patient Goal Type Associated Problems Recent Progress Patient-Stated? Author Help patient manage antidepressant medication Care Plan Patient on antidepressant monitoring plan No Francia Gannon MA documented as of this encounter Visit Diagnoses Diagnosis Bipolar affective disorder, currently depressed, moderate (HCC) Bipolar I disorder, most recent episode (or current) depressed, moderate Diabetes 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, unspecified whether penitentiary insulin use (HCC)- Primary Pain due to [...] as of this encounter Care Teams Insurance Verification Representative Relationship Specialty Start Date End Date Jer Rizo MD 112 [facility] 110 [place] [address] PCP - General Internal Medicine 01/03/23 Aggie Gallardo, CAR SHAGGER-ATHLETIC TRAINING INTERNSHIP 112 [facility] 160 [place] [address] PCP - Sari HERNANDEZ 11/26/24 Aggie Gallardo, CAR SHAGGER-ATHLETIC TRAINING INTERNSHIP 112 [facility] 160 [place] [address] Nurse Practitioner Psychiatry 06/13/24 Madyson Figueroa, BETY [address] [facility] 230 [place] [address] Registered Nurse Family Medicine 08/14/24 03/03/25 Braeden Dunham LPC Therapist Behavioral Health 11/25/24 documented as of this encounter
--- OUTSIDE RECORDS SUMMARY | 2025-03-12 14:08 | XMS_ITS | Encounter Summary ---
Author Organization [employer] Address [id number] [address] [place] [address] Care Team Providers Care Managing Attorney Name Role Phone Jer Rizo MD Primary Care Provider [phone] Encounter Details Date Type Department Care Team (Latest Contact Info) Description 03/07/2025 Travel Social History Tobacco Use Types Packs/Day Years Used Date Smoking Tobacco: Never Smokeless Tobacco: Never Comments:Exposed to smoking all of her life Alcohol Use Standard Drinks/Week Comments Not Currently 0 (1 standard drink = 0.6 oz pur e alcohol) very rare at the [facility] AUDIT-C Answer Date Recorded Q1: How often [...] on filedocumented in this encounter Care Teams Managing Attorney Relationship Specialty Start Date End Date Jer Rizo MD [address], [facility] 110 [place] [address] PCP - General Internal Medicine 01/24/20 documented as of this encounter
--- OUTSIDE RECORDS SUMMARY | 2025-03-12 14:08 | XMS_ITS | Clinical Summary ---
Author Organization [employer] Address [id number] [address] [place] [address] Care Team Providers Care Legal Entity Controller Name Role Phone Jer Rizo MD Primary Care Provider Allergies Active Allergy Reactions Criticality Noted Date Comments Ibandronate Hives 01/24/2020 Cefdinir Hives 01/02/2023 Nabumetone 01/02/2023 Other Reaction(s): PT DOESN'T REMEMBER Penicillins Angioedema 01/24/2020 Sertraline 03/14/2024 Unusual behaviors Sulfa (Sulfonamide Antibiotics) Angioedema 01/24/2020 Shortness of breath as well Sulfanilamide 01/02/2023 Other Reaction(s): Fever,hives Zolpidem Other (See Comments) 03/14/2024 Terrible nightmares Medications levothyroxine (SYNTHROID, LEVOTHROID) 100 MCG tablet Take 112 mcg by mouth in the morning. Active lamoTRIgine (LaMICtal) 25 mg tablet Take 10 tablets (250 mg total) by mouth nightly. Active potassium chloride (KLOR-CON SPRINKLE) 10 MEQ CR capsule Take by mouth in the morning. Active metoprolol succinate XL (TOPROL-XL) 25 mg 24 hr tablet Take 1 tablet (25 mg total) by mouth in the morning. Active furosemide (LASIX) 40 mg tablet Take 1 tablet (40 mg total) by mouth 2 (two) times a day. Active gabapentin (NEURONTIN) 300 mg capsule Take 1 capsule (300 mg total) by mouth nightly. Active cariprazine (VRAYLAR) 6 mg capsule Take 6 mg by mouth in the morning. Active diclofenac (VOLTAREN) 75 mg EC tablet Take 1 tablet (75 mg total) by mouth in the morning and 1 tablet (75 mg total) before bedtime. Active trazodone HCl (TRAZODONE ORAL) Take 50 mg by mouth nightly. Active albuterol (PROVENTIL HFA;VENTOLIN HFA) 90 mcg/actuation inhaler Inhale 2 puffs every 6 (six) hours as needed for wheezing. Active dapagliflozin propanediol (FARXIGA ORAL) Take 10 mg by mouth in the morning. Active BACLOFEN ORAL Take 5 mg by mouth in the morning and 5 mg before bedtime. Active semaglutide (OZEMPIC SUBQ) Inject 2.5 mg under the skin once a week. Monday Active insulin glargine (LANTUS) 100 unit/mL injection Inject 0.2 mL (20 Units total) under the skin in the morning. Active traMADoL (ULTRAM) 50 mg tablet Take 1 tablet (50 mg total) by mouth every 6 (six) hours as needed for pain. Active BREZTRI AEROSPHERE 160-9-4.8 mcg/actuation HFA aerosol inhaler INHALE 2 PUFFS IN MORNING AND BEFORE BEDTIME*RINSE MOUTH AFTER EACH USE* Active Bacillus coagulans-inulin 1 billion-250 cell-mg capsule Take 1 capsule by mouth. 03/27/20 24 Active aspirin 325 mg tablet Take 1 tablet (325 mg total) by mouth in the morning. Active escitalopram (LEXAPRO) 20 mg tablet Take 1 tablet (20 mg total) by mouth in the morning. 12/13/19 25 025 Active fluticasone propionate (FLONASE) 50 mcg/actuation nasal spray USE 1 SPRAY IN EACH NOSTRIL ONCE A DAY *SHAKE GENTLY/PRIME PUMP/CLEAN TIP AND REPLACE CAP* Active hydrOXYzine (VISTARIL) 25 mg capsule Take 1 capsule (25 mg total) by mouth every 8 (eight) hours as needed. 09/13/19 25 Active dextrose (GLUTOSE-15) 40 % gel Take 37.5 mL (15 g total) by mouth. 10/19/19 25 Active rosuvastatin (CRESTOR) 5 mg tablet Take 1 tablet (5 mg total) by mouth. Active busPIRone (BUSPAR) 15 mg tablet Take 1 tablet (15 mg total) by mouth in the morning and 1 tablet (15 mg total) before bedtime. 10/10/2 025 Discontin ued(Thera py completed ) DULoxetine (CYMBALTA) 60 mg capsule Take 90 mg by mouth in the morning. Discontin ued(Thera py completed ) omeprazole-sodiu m bicarbonate (ZEGERID) 40-1.1 mg-gram per capsule Take 1 capsule by mouth every morning before breakfast. Discontin ued(Thera py completed ) budesonide-formo teroL (SYMBICORT) 160-4.5 mcg/actuation inhaler Inhale 2 puffs in the morning and 2 puffs before bedtime. Discontin ued(Thera py completed ) exenatide microspheres (BYDUREON SUBQ) Inject under the skin. Discontin ued(Thera py completed ) tiZANidine (ZANAFLEX) 4 mg tablet Take 1 tablet (4 mg total) by mouth every 6 (six) hours as needed for muscle spasms. Nightly Discontin ued(Thera py completed ) benzonatate (TESSALON PERLES) 200 mg capsule TAKE 1 CAPSULE BY MOUTH THREE TIMES A DAY NEEDED FOR 14 DAYS 03/23/20 Discontin ued(Thera py completed ) HYDROcodone-acet aminophen (NORCO) 5-325 mg per tablet 05/13/20 22 Discontin ued(Thera py completed ) docusate sodium (COLACE) 100 mg capsule Take 1 capsule (100 mg total) by mouth in the morning and 1 capsule (100 mg total) before bedtime. Discontin ued(Thera py completed ) polyethylene glycol (GLYCOLAX) 17 gram packet Take 17 g by mouth daily as needed. Discontin ued(Thera py completed ) nystatin (MYCOSTATIN) powder Apply 1 Application topically in the morning and 1 Application before bedtime. Discontin ued(Thera py completed ) linaGLIPtin (TRADJENTA) 5 mg tablet Take 1 tablet (5 mg total) by mouth in the morning. Discontin ued(Thera py completed ) albuterol sulfate (VENTOLIN HFA INHL) Inhale. 10/07/2 025 Discontin ued(Dupli rodolfo Listing) sod sulf-pot chloride-mag sulf 1.479-0.188- 0.225 gram tabletIndication s:Diarrhea, unspecified type,Abdominal cramping Please see instructional sheet given by physicians office. 24 tablet 02/19/20 25 025 Discontin ued(Thera py completed ) Active Problems No known active problems Encounters Date Type Department Care Team Description 03/07/2025 9:12 AM EDT Anesthesia Event [facility] [address] [place] [address] Dane Aleman MD 03/07/2025 9:00 AM EDT - 03/07/2025 9:30 AM EDT Surgery [facility] - Surgery [address] [place] [address] Ashley Vyas MD COLONOSCOPY DIAGNOSTIC / SCREENING [01286 (CPT )] 03/07/2025 6:57 AM EDT - 03/07/2025 10:06 AM EDT Hospital Encounter [facility] - Surgery [address] [place] [address] Ashley Vyas MD Discharge Disposition: Home 03/07/2025 Travel 03/04/2025 1:30 PM EDT Procedure visit [facility] - Pre Admit [address] [place] [address] 03/04/2025 Travel 02/18/2025 1:00 PM EDT Office Visit [facility] [address] [place] [address] Amy Estrella, WARP SPLITTER-THANH Diarrhea, unspecified type (Primary Dx); Abdominal cramping; History of colon polyps 02/18/2025 Travel from Last 3 Months Family History Medical History Relation Name Comments Cancer Father Colon cancer Father Lung cancer Father Colon cancer Maternal Grandmother Bowel dysfunction Mother Crohn's disease Mother Relation Name Status Comments Father Maternal Grandmother Mother Social History Tobacco Use Types Packs/Day Years [...] Mass Index 51.91 03/07/2025 7:20 AM EDT Plan of Treatment Health Maintenance Due Date Last Done Comments Depression Screening 1973 Adult BMI Follow Up Plan 1979 Pap Smear 1982 Zoster (Shingles) Vaccine (1 of 2) 2011 COVID-19 Vaccine (2024-2 6 season) 2025 01/12/2021, 10/30/2020, 10/02/2020 Influenza Vaccine 01/27/2025 02/21/2024, , 03/31/2022, Additional history exists Adult BMI Screening 03/07/2026 03/07/2025 Tobacco Screening 03/07/2026 03/07/2025 DTaP,Tdap and Td Vaccines (2 - Td or Tdap) 12/05/2033 12/06/2023 Medical Devices Not on file Procedures Procedure Name Priority Date/Time Associated Diagnosis Comments AL COLONOSCOPY FLX DX W/COLLJ SPEC WHEN PFRMD 03/07/2025 9:12 AM EDT diarrhea COLONOSCOPY 03/07/2025 8:58 AM EDT PROVATION COLONOSCOPY Routine 03/07/2025 8:05 AM EDT from Last 3 Months Results * Colonoscopy (03/07/2025 8:58 AM EDT) 03/07/2025 8:58 AM EDT Narrative PM CARDIOVASCULAR - 03/07/2025 9:31 AM EDT [facility] Patient Name: Sanna Corrales Procedure Date No Time: 03/07/2025 CSN : [id number] Date of : 1960 Admit Type: Outpatient Age: 65 Room: [place] [address] Gender: Female Note Status: Finalized Attending MD: Ashley Vyas , , Procedure: Colonoscopy Indications: Diarrhea Providers: Ashley Vyas Referring MD: Ashley Vyas Medicines: Monitored Anesthesia Care Complications: No immediate complications. Procedure: After I obtained informed consent, the scope was passed under direct vision. Throughout the procedure, the patient's blood pressure, pulse, and oxygen saturations were monitored continuously. The [employer] [id number] #[id number] ADULT COLONOSCOPE was introduced through the anus [...] screening purposes. Procedure Code(s): --- Professional --- 96321, Colonoscopy, flexible; diagnostic, including collection of specimen(s) by brushing or washing, when performed (separate procedure) Diagnosis Code(s): --- Professional --- R19.7, Diarrhea, unspecified CPT copyright 2022 [employer]. All rights reserved. The codes documented in this report are preliminary and upon meteorology teacher review may be revised to meet current compliance requirements. MD Ashley Rai, 03/07/2025 9:30:24 AM This report has been signed electronically.Ashley Vyas Number of Addenda: 0 Note Initiated On: 03/07/2025 8:58 AM Procedure Note Ashley Vyas MD - 03/07/2025 [facility] Patient Name: Sanna Corrales Procedure Date No Time: 03/07/2025 CSN : [id number] Date of : 1960 Admit Type: Outpatient Age: 65 Room: [place] [address] Gender: Female Note Status: Finalized Attending MD: Ashley Vyas , , Procedure: Colonoscopy Indications: Diarrhea Providers: Ashley Vyas Referring MD: Ashley Vyas Medicines: Monitored Anesthesia Care Complications: No immediate complications. Procedure: After I obtained informed consent, the scope was passed under direct vision. Throughout theprocedure, the patient's blood pressure, pulse, and oxygen saturations were monitored continuously. [facility] [id number] #[id number] ADULT COLONOSCOPE was introduced through the anus [...] screening purposes. Procedure Code(s): --- Professional --- 45165, Colonoscopy, flexible; diagnostic, including collection of specimen(s) by brushing or washing,when performed (separate procedure) Diagnosis Code(s): --- Professional --- R19.7, Diarrhea, unspecified CPT copyright 2022 [employer]. All rights reserved. The codes documented in this report are preliminary and upon meteorology teacher reviewmay be revised to meet current compliance [...] IMG OR IMG ORDERABLES Tashia l Result from Last 3 Months Insurance [employer] Care Teams Legal Entity Controller Relationship Specialty Start Date End Date Jer Rizo MD 112 [facility], [facility] 110 [place] [address] PCP - General Internal Medicine 01/24/20
--- OUTSIDE RECORDS SUMMARY | 2025-03-12 14:08 | XMS_ITS | Encounter Summary ---
Author Organization [facility] Address [address] [facility] [place] [address] Care Team Providers Care Route Relief Driver Name Role Phone Jer Rizo MD Primary Care Provider [phone] Aggie Gallardo HEAVY REPAIRER-JOINT SEALER Unavailable Madyson Figueroa RN Unavailable Braeden Dunham LPC Unavailable Unavailable Aggie Gallardo HEAVY REPAIRER-JOINT SEALER Unavailable Encounter Details Date Type Department Care Team (Late st Contact Info) Description 12/30/2024 Abstract [facility] [place] [facility] 112 [facility] 110 [place] [phone] Jer Rizo MD 112 [facility] 110 [place] [address] Social History Tobacco Use Types [...] any clubs o r organizations such as rastafarian groups, unions, fraternal or athletic groups, or [...] Recorded Patient Health Questionnaire-2 Score 2 12/17/2024 [facility] - Occupational Stress Questionnaire [...] in the past 12 m [facility], were you homeless or living [...] [facility] [address] [facility] 160 [place] [address] Aggie Gallardo, HEAVY REPAIRER-JOINT SEALER [address] [facility] 160 [place] [address] 03/20/2025 3:50 PM EDT Office Visit [facility] [address] [facility] 120 [place] [address] Tip Morillo, DPM 3006 [facility] 5 [place] [address] 03/21/2025 11:00 AM EDT Office Visit [facility] [place] [facility] [address] [facility] 110 [place] [address] Erin Tariq, PA [address] [facility] 110 [place] [address] documented as of this encounter Goals Goal [...] as of this encounter Care Teams Route Relief Driver Relationship Specialty Start Date End Date Jer Rizo MD [address] Jose Armando [address] [place] [address] PCP - General Internal Medicine 01/03/23 Aggie Gallardo, HEAVY REPAIRER-JOINT SEALER [address] Jose Armando [address] [place] [address] PCP - Sari HERNANDEZ 11/26/24 Aggie Gallardo, HEAVY REPAIRER-JOINT SEALER [address] [facility] 160 [place] [address] Nurse Practitioner Psychiatry 06/13/24 Madyson Figueroa, BETY [address] [facility] [address] [place] [address] Registered Nurse Family Medicine 08/14/24 03/03/25 Braeden Dunham LPC Therapist Behavioral Health 11/25/24 documented as of this encounter
--- OUTSIDE RECORDS SUMMARY | 2025-03-12 14:08 | XMS_ITS | Encounter Summary ---
Author Organization [facility] Address [address] [facility] [place] [address] Care Team Providers Care Roadability Machine Operator Name Role Phone Jer Rizo MD Primary Care Provider [phone] Jer Rizo MD Unavailable [phone] Aggie Gallardo SIDE GLUER-SHINGLE CATCHER Unavailable Jer Rizo MD Unavailable [phone] Madyson Figueroa RN Unavailable [phone] Braeden Dunham LPC Unavailable Unavailable Aggie Gallardo SIDE GLUER-SHINGLE CATCHER Unavailable Encounter Details Date Type Department Care Team (Late st Contact Info) Description 04/30/2024 Abstract [facility] [place] [facility] 112 [facility] 110 [place] [address] Jer Rizo MD 112 [facility] 110 [place], [place] [id number] Social History Tobacco Use Types Packs/Day Years [...] Recorded Patient Health Questionnaire-2 Score 4 04/17/2024 [facility]at ional Health [...] [address] [facility] 160 [place] [address] Aggie Gallardo, SIDE GLUER-SHINGLE CATCHER [address] [facility] 160 [place] [address] 03/20/2025 3:50 PM EDT Office Visit [facility] [address] [facility] 120 [place] [phone] Tip Morillo DPM 9596 [facility] 5 [place] [address] 03/21/2025 11:00 AM EDT Office Visit [facility] [place] [facility] [address] JOSE ARMANDO 110 [place] [address] Erin Tariq PA [address] [facility] 110 [place] [address] documented as of this encounter Goals Goal [...] documented as of this encounter Care Teams Roadability Machine Operator Relationship Specialty Start Date End Date Jer Rizo MD [address] [facility] 110 [place] [address] PCP - General Internal Medicine 01/03/23 Jer Rizo MD [address] [facility] 110 [place] [address] PCP - Devoted 05/29/23 05/28/24 Jer Rioz MD [address] [facility] 110 [place] [address] PCP - Sari HERNANDEZ 05/29/24 11/25/24 Aggie Gallardo, SIDE GLUER-SHINGLE CATCHER [address] [facility] 160 [place] [address] PCP - Sari HERNANDEZ 11/26/24 Aggie Gallardo, SIDE GLUER-SHINGLE CATCHER [address] [facility] 160 [place] [address] Nurse Practitioner Psychiatry 06/13/24 Madyson Figueroa, BETY [address] Jose Armando [address] [place] [address] Registered Nurse Family Medicine 3/19/25 10/6/25 Braeden Dunham LPC Therapist Behavioral Health 11/25/24 documented as of this encounter
--- OUTSIDE RECORDS SUMMARY | 2025-03-12 14:08 | XMS_ITS | Encounter Summary ---
Author Organization [facility] Address [address] [facility] [place] [address] Care Team Providers Care Radiation Oncology Nurse Name Role Phone Jer Rizo MD Primary Care Provider [phone] Aggie Gallardo FREELANCE TRANSLATOR-INTEGRATION ARCHITECT Unavailable Jer Rioz MD Unavailable [phone] Madyson Figueroa RN Unavailable [phone] Braeden Dunham LPC Unavailable Unavailable Aggie Gallardo FREELANCE TRANSLATOR-INTEGRATION ARCHITECT Unavailable Reason for Visit * Reason Comments Med Change Request Encounter Details Date Type Department Care Team (Late st Contact Info) Description 06/06/2024 Refill [facility] [address] [facility] 160 [place] [address] Aggie Gallardo, FREELANCE TRANSLATOR-INTEGRATION ARCHITECT 112 [facility] 160 [place] [address] Bipolar affective disorder, currently depressed, moderate (HCC) [...] Recorded Patient Health Questionnaire-2 Score 3 05/15/2024 [facility] - Occupational Stress Questionnaire Answer Date [...] in a long-term (including now)? No 12/04/2023 Education Answer Date [...] Health [address] JOSE ARMANDO 160 [place] [address] Aggie Gallardo, FREELANCE TRANSLATOR-INTEGRATION ARCHITECT [address] Jose Armando 160 [place] [address] 03/20/2025 3:50 PM EDT Office Visit [facility] [address] JOSE ARMANDO 120 [place] [address] Tip Morillo, DPM 3006 [facility] 5 [place] [address] 03/21/2025 11:00 AM EDT Office Visit [facility] [place] [facility] [address] JOSE ARMANDO [address] [place] [address] Erin Tariq PA [address] [facility] 110 [place] [address] documented as of this encounter Goals Goal [...] underlying condition with diabetic 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, unspecified whether assisted insulin use (HCC)- Primary Pain due to [...] documented as of this encounter Care Teams Radiation Oncology Nurse Relationship Specialty Start Date End Date Jer Rizo MD [address] [facility] 110 [place] [address] PCP - General Internal Medicine 01/03/23 Jer iRzo MD [address] [facility] 110 [place] [address] PCP - Sari HERNANDEZ 05/29/24 11/25/24 Aggie Gallardo, FREELANCE TRANSLATOR-INTEGRATION ARCHITECT [address] [facility] 160 [place] [address] PCP - Sari HERNANDEZ 11/26/24 Aggie Gallardo, FREELANCE TRANSLATOR-INTEGRATION ARCHITECT [address] [facility] 160 [place] [address] Nurse Practitioner Psychiatry 06/13/24 Madyson Figueroa, RN [address] Jose Armando 230 [place] [address] Registered Nurse Family Medicine 08/14/24 03/03/25 Braeden Dunham LPC Therapist Behavioral Health 11/25/24 documented as of this encounter
--- OUTSIDE RECORDS SUMMARY | 2025-03-12 14:08 | XMS_ITS | Encounter Summary ---
Author Organization [facility] Address [address] [facility] [place] [address] Care Team Providers Care Roll Cutting Operator Name Role Phone Jer Rizo MD Primary Care Provider [phone] Jer Rizo MD Unavailable [phone] Aggie Gallardo STOPPER GRINDER-MICROBIOLOGY LAB TECHNICIAN Unavailable Jer Rizo MD Unavailable [phone] Madyson Figueroa RN Unavailable [phone] Braeden Dunham LPC Unavailable Unavailable Aggie Gallardo STOPPER GRINDER-MICROBIOLOGY LAB TECHNICIAN Unavailable Encounter Details Date Type Department Care Team (Late Contact Info) Description 11/03/2022 Abstract [facility] [place] [facility] 112 [facility] 110 [place] [address] Jer Rizo MD 112 [facility] 110 [place], [place] [address] Social History Tobacco Use Types Packs/Day Years [...] Department Care Team (Late Contact Info) Description 03/13/2025 1:30 PM EDT Office Visit [facility] [place] [facility] [address] [facility] 160 [place] [address] Aggie Gallardo, STOPPER GRINDER-MICROBIOLOGY LAB TECHNICIAN [address] Jose Armando 160 [place] [address] 03/20/2025 3:50 PM EDT Office Visit [facility] [address] JOSE ARMANDO 120 [place] [address] Tip Morillo, DPM 3[address] [facility] 5 [place] [address] 03/21/2025 11:00 AM EDT Office Visit [facility] [place] [facility] [address] [facility] 110 [place] [address] Erin Tariq, PA [address] [facility] 110 [place] [address] documented as of this encounter Visit Diagnoses Not on filedocumented in this encounter Care Teams Roll Cutting Operator Relationship Specialty Start Date End Date Jer Rizo MD [address] [facility] 110 [place] [address] PCP - General Internal Medicine 01/03/23 Jer Rizo MD [address] [facility] 110 [place] [address] PCP - Devoted 05/29/23 05/28/24 Jer Rizo MD [address] [facility] 110 [place] [address] PCP - Sari HERNANDEZ 05/29/24 11/25/24 Aggie Gallardo, STOPPER GRINDER-MICROBIOLOGY LAB TECHNICIAN [address] [facility] 160 [place] [address] PCP - Sari HERNANDEZ 11/26/24 Aggie Gallardo APRN-MICROBIOLOGY LAB TECHNICIAN 112 [facility] 160 [place] [address] Nurse Practitioner Psychiatry 06/13/24 Madyson Figueroa RN [address] [facility] 230 [place] [address] Registered Nurse Family Medicine 08/14/24 03/03/25 Braeden Dunham LPC Therapist Behavioral Health 11/25/24 documented as of this encounter
--- OUTSIDE RECORDS SUMMARY | 2025-03-12 14:08 | XMS_ITS | Encounter Summary ---
Author Organization [facility] Address [address] [facility] [place] [address] Care Team Providers Care Assistant Golf Course Superintendent Name Role Phone Jer Rizo MD Primary Care Provider [phone] Jer Rizo MD Unavailable [phone] Aggie Gallardo HORIZONTAL BORING MILL SET UP OPERATOR-JEWELRY REPAIRER Unavailable Jer Rizo MD Unavailable [phone] Madyson Figueroa RN Unavailable [phone] Braeden Dunham LPC Unavailable Unavailable Aggie Gallardo HORIZONTAL BORING MILL SET UP OPERATOR-JEWELRY REPAIRER Unavailable Encounter Details Date Type Department Care Team (Late Contact Info) Description 11/03/2022 Abstract [facility] [place] [facility] 112 [facility] 110 [place] [address] Jer Rizo MD 112 [facility] 110 [place], [place] [id number] Social History Tobacco Use Types Packs/Day Years [...] [address] [facility] 160 [place] [address] Aggie Gallardo, HORIZONTAL BORING MILL SET UP OPERATOR-JEWELRY REPAIRER [address] Jose Armando 160 [place] [address] 03/20/2025 3:50 PM EDT Office Visit [facility] [address] JOSE ARMANDO 120 [place] [address] Tip Mroillo, DPM 3006 [facility] 5 [place] [address] 03/21/2025 11:00 AM EDT Office Visit [facility] [place] [facility] [address] [facility] 110 [place] [address] Erin Tariq, PA [address] [facility] 110 [place] [address] documented as of this encounter Visit Diagnoses Not on filedocumented in this encounter Care Teams Assistant Golf Course Superintendent Relationship Specialty Start Date End Date Jer Rizo MD [address] [facility] 110 [place] [address] PCP - General Internal Medicine 01/03/23 Jer Rizo MD [address] [facility] 110 [place] [address] PCP - Devoted 05/29/23 05/28/24 Jer Rizo MD [address] [facility] 110 [place] [address] PCP - Sari HERNANDEZ 05/29/24 11/25/24 Aggie Gallardo, HORIZONTAL BORING MILL SET UP OPERATOR-JEWELRY REPAIRER [address] [facility] 160 [place] [address] PCP - Sari HERNANDEZ 11/26/24 Aggie Gallardo APRN-JEWELRY REPAIRER 112 [facility] 160 [place] [address] Nurse Practitioner Psychiatry 06/13/24 Madyson Figueroa RN [address] [facility] 230 [place] [address] Registered Nurse Family Medicine 08/14/24 03/03/25 Braeden Dunham LPC Therapist Behavioral Health 11/25/24 documented as of this encounter
--- OUTSIDE RECORDS SUMMARY | 2025-03-12 14:08 | XMS_ITS | Encounter Summary ---
Author Organization [facility] Address [address] [facility] [place] [address] Care Team Providers Care Wire Products Inspector Name Role Phone Jer Rizo MD Primary Care Provider [phone] Aggie Gallardo PLATE GRAINER-EXHIBITION SPECIALIST Unavailable Madyson Figueroa RN Unavailable Braeden Dunham LPC Unavailable Unavailable Aggie Gallardo PLATE GRAINER-EXHIBITION SPECIALIST Unavailable Encounter Details Date Type Department Care Team (Late st Contact Info) Description 02/18/2025 Abstract [facility] [place] [facility] 112 [facility] 110 [place] [address] Jer Rizo MD 112 [facility] 110 [place] [address] Social History Tobacco Use Types [...] Recorded Patient Health Questionnaire-2 Score 2 12/17/2024 [facility] - Occupational Stress Questionnaire Answer Date [...] in the past [address] [facility], were you homeless or living in [...] [facility] [place] [facility] [address] [facility] 160 [place] [address] Aggie Gallardo, PLATE GRAINER-EXHIBITION SPECIALIST [address] [facility] 160 [place] [address] 03/20/2025 3:50 PM EDT Office Visit [facility] [address] [facility] 120 [place] [address] Tip Morillo, DPM 3006 [facility] 5 [place] [address] 03/21/2025 11:00 AM EDT Office Visit [facility] [place] [facility] [address] [facility] 110 [place] [address] Erin Tarqi, PA [address] [facility] 110 [place] [address] documented as of this encounter Goals Goal [...] documented as of this encounter Care Teams Wire Products Inspector Relationship Specialty Start Date End Date Jer Rizo MD [address] Jose Armando 110 [place] [address] PCP - General Internal Medicine 01/03/23 Aggie Gallardo, PLATE GRAINER-EXHIBITION SPECIALIST [address] Jose Armando 160 [place] [address] PCP - Sari HERNANDEZ 11/26/24 Aggie Gallardo, PLATE GRAINER-EXHIBITION SPECIALIST [address] [facility] 160 [place] [address] Nurse Practitioner Psychiatry 06/13/24 Madyson Figueroa, BETY [address] [facility] 230 [place] [address] Registered Nurse Family Medicine 08/14/24 03/03/25 Braeden Dunham LPC Therapist Behavioral Health 11/25/24 documented as of this encounter
--- OUTSIDE RECORDS SUMMARY | 2025-03-12 14:08 | XMS_ITS | Encounter Summary ---
Author Organization [facility] Address [address] [facility] [place] [address] Care Team Providers Care Medical Genetics Director Name Role Phone Jer Rizo MD Primary Care Provider [phone] Jer Rizo MD Unavailable [phone] Aggie Gallardo HOG SAWYER-CLIP LOADING MACHINE ADJUSTER Unavailable Jer Rizo MD Unavailable [phone] Madyson Figueroa RN Unavailable [phone] Braeden Dunham LPC Unavailable Unavailable Aggie Gallardo HOG SAWYER-CLIP LOADING MACHINE ADJUSTER Unavailable Encounter Details Date Type Department Care Team (Late st Contact Info) Description 01/19/2023 Orders Only [facility] [place] [facility] [address] [facility] 110 [place] [address] A, Unknown Practice [address] [place] [address] Social History Tobacco Use Types Packs/Day [...] [address] [facility] [address] [place] [address] Aggie Gallardo, HOG SAWYER-CLIP LOADING MACHINE ADJUSTER [address] [facility] 160 [place] [address] 03/20/2025 3:50 PM EDT Office Visit [facility] [address] [facility] 120 [place] [address] Tip Morillo, DPYared 3006 [facility] 5 [place] [address] 03/21/2025 11:00 AM EDT Office Visit [facility] [place] [facility] [address] [facility] 110 [place] [address] Erin Tariq PA [address] [facility] 110 [place] [address] documented as of this encounter Procedures Procedure [...] on filedocumented in this encounter Care Teams Medical Genetics Director Relationship Specialty Start Date End Date Jer Rizo MD [address] [facility] 110 [place] [address] PCP - General Internal Medicine 01/03/23 Jer Rizo MD [address] [facility] 110 [place] [address] PCP - Devoted 05/29/23 05/28/24 Jer Rizo MD [address] [place] [facility] 110 [place] [address] PCP - Sari HERNANDEZ 05/29/24 11/25/24 Aggie Gallardo, HOG SAWYER-CLIP LOADING MACHINE ADJUSTER 112 [place] [facility] 160 [place] [address] PCP - Sari HERNANDEZ 11/26/24 Aggie Gallardo, HOG SAWYER-CLIP LOADING MACHINE ADJUSTER 112 [place] [facility] 160 [place] [address] Nurse Practitioner Psychiatry 06/13/24 Madyson Figueroa RN [address] [facility] 230 [place] [address] Registered Nurse Family Medicine 08/14/24 03/03/25 Braeden Dunham LPC Therapist Behavioral Health 11/25/24 documented as of this encounter
--- OUTSIDE RECORDS SUMMARY | 2025-03-12 14:08 | XMS_ITS | Encounter Summary ---
Author Organization [facility] Address [address] [place] [address] Care Team Providers Care Counter Hop Name Role Phone Jer Rizo MD Primary Care Provider [phone] Aggie Gallardo NUTRITIONAL SERVICES HOST-HALAL BUTCHER Unavailable Braeden Dunham [facility] Unavailable Unavailable Aggie Gallardo NUTRITIONAL SERVICES HOST-HALAL BUTCHER Unavailable Encounter Details Date Type Department Care Team (Late st Contact Info) Description 03/10/2025 Abstract [facility] [place] [facility] 112 [facility] 110 [place] [address] Jer Rizo MD 112 [facility] 110 [place], [place] [id number] Social History Tobacco Use Types Packs/Day Years [...] Recorded Patient Health Questionnaire-2 Score 2 12/17/2024 [facility] - Occupational Stress Questionnaire Answer [...] [facility] [place] [facility] [address] [place] [address] [place] [address] Aggie Gallardo, NUTRITIONAL SERVICES HOST-HALAL BUTCHER [address] [facility] 160 [place] [address] 03/20/2025 3:50 PM EDT Office Visit [facility] [address] [place] [address] [place] [address] Tip Morillo, DPYared 3006 [facility] 5 [place] [address] 03/21/2025 11:00 AM EDT Office Visit [facility] [place] [facility] [address] [place] [address] [place] [address] Erin Tariq PA [address] [facility] 110 [place] [address] documented as of this encounter Goals Goal [...] documented as of this encounter Care Teams Counter Hop Relationship Specialty Start Date End Date Jer Rizo MD [address] [facility] 110 [place] [address] PCP - General Internal Medicine 01/03/23 Aggie Gallardo, JONATHAN-HALAL BUTCHER [address] [facility] 160 [place] [address] PCP - Sari HERNANDEZ 11/26/24 Aggie Gallardo, NUTRITIONAL SERVICES HOST-HALAL BUTCHER [address] [facility] 160 [place] [address] Nurse Practitioner Psychiatry 06/13/24 Braeden Dunham LPC Therapist Behavioral Health 11/25/24 documented as of this encounter
--- OUTSIDE RECORDS SUMMARY | 2025-03-12 14:08 | XMS_ITS | Encounter Summary ---
Author Organization [employer] Address [id number] [address] [place] [address] Care Team Providers Care Telephone Station Installer Name Role Phone Jer Rizo MD Primary Care Provider [phone] Encounter Details Date Type Department Care Team (Latest Contact Info) Description 03/04/2025 Travel Social History Tobacco Use Types Packs/Day Years Used Date Smoking Tobacco: Never Smokeless Tobacco: Never Comments:Exposed to smoking all of her life Alcohol Use Standard Drinks/Week Comments Not Currently 0 (1 standard drink = 0.6 oz pur e alcohol) very rare at the [facility][1] AUDIT-C Answer Date Recorded Q1: How often [...] on filedocumented in this encounter Care Teams Telephone Station Installer Relationship Specialty Start Date End Date Jer Rizo MD [address] [facility] 110 [place] [address] PCP - General Internal Medicine 01/24/20 documented as of this encounter
--- OUTSIDE RECORDS SUMMARY | 2025-03-12 14:08 | XMS_ITS | Encounter Summary ---
Author Organization [facility] Address [address] [facility] [place] [address] Care Team Providers Care Custom Bike Builder Name Role Phone Jer Rizo MD Primary Care Provider [phone] Aggie Gallardo OCCUPATIONAL MEDICINE PHYSICIAN-VB DEVELOPER Unavailable Jer Rizo MD Unavailable [phone] Madyson Figueroa RN Unavailable [phone] Braeden Dunham LPC Unavailable Unavailable Aggie Gallardo OCCUPATIONAL MEDICINE PHYSICIAN-VB DEVELOPER Unavailable Reason for Visit * Reason Comments Med Refill Encounter Details Date Type Department Care Team (Late st Contact Info) Description 07/07/2024 Refill [facility] [address] [facility] 160 [place] [address] Aggie Gallardo, OCCUPATIONAL MEDICINE PHYSICIAN-VB DEVELOPER 112 [facility] 160 [place] [address] Bipolar affective disorder, currently depressed, moderate (HCC) [...] Recorded Patient Health Questionnaire-2 Score 3 05/15/2024 [facility] - Occupational Stress Questionnaire Answer [...] Health [address] JOSE ARMANDO 160 [place] [address] Aggie Gallardo, OCCUPATIONAL MEDICINE PHYSICIAN-VB DEVELOPER [address] Jose Armando 160 [place] [address] 03/20/2025 3:50 PM EDT Office Visit [facility] [address] [place] [address] Tip Morillo, DPM 3006 [facility] 5 [place] [address] 03/21/2025 11:00 AM EDT Office Visit [facility] [place] [facility] [address] [place] [address] Erin Tariq PA [address] [facility] 110 [place] [address] documented as of this encounter Goals Goal [...] underlying condition with diabetic 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, 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)- Primary Pain due to [...] documented as of this encounter Care Teams Custom Bike Builder Relationship Specialty Start Date End Date Jer Rizo MD [address] [facility] 110 [place] [address] PCP - General Internal Medicine 01/03/23 Jer Rizo MD [address] [facility] 110 [place] [address] PCP - Sari HERNANDEZ 05/29/24 11/25/24 Aggie Gallardo, OCCUPATIONAL MEDICINE PHYSICIAN-VB DEVELOPER [address] [facility] 160 [place] [address] PCP - Sari HERNANDEZ 11/26/24 Aggie Gallardo, OCCUPATIONAL MEDICINE PHYSICIAN-VB DEVELOPER [address] [facility] 160 [place] [address] Nurse Practitioner Psychiatry 06/13/24 Madyson Figueroa, RN [address] [place] [address] Registered Nurse Family Medicine 08/14/24 03/03/25 Braeden Dunham LPC Therapist Behavioral Health 11/25/24 documented as of this encounter
--- OUTSIDE RECORDS SUMMARY | 2025-03-12 14:08 | XMS_ITS | Encounter Summary ---
Author Organization [facility] Address [address] [facility] [place] [address] Care Team Providers Care Community Organization Director Name Role Phone Jer Rizo MD Primary Care Provider [phone] Jer Rizo MD Unavailable [phone] Aggie Gallardo SUPERVISOR TREE TRIMMING-HARDWARE TEST ENGINEER Unavailable Jer Rizo MD Unavailable [phone] Madyson Figueroa RN Unavailable [phone] Braeden Dunham LPC Unavailable Unavailable Aggie Gallardo SUPERVISOR TREE TRIMMING-HARDWARE TEST ENGINEER Unavailable Encounter Details Date Type Department Care Team (Late st Contact Info) Description 02/13/2024 Abstract [facility] [facility] 112 [facility] 110 [place] [address] Jer Rizo MD 112 [facility] 110 [place], [place] [address] Social History Tobacco Use Types Packs/Day Years [...] and Family Not on file 12/04/2023 Attends Christianity Services Not on file 12/03 Do you belong to any clubs o r organizations such as zoroastrian groups, unions, fraternal or athletic groups, or [...] Recorded Patient Health Questionnaire-2 Score 2 12/06/2023 [facility] - [...] any time in the past 12 m [facility], were you homeless or living in a alf (including now)? No 12/04/2023 Comments Unknown Sex [...] WAY [facility] 160 [place] [address] Aggie Gallardo, SUPERVISOR TREE TRIMMING-HARDWARE TEST ENGINEER [address] [facility] 160 [place] [address] 03/20/2025 3:50 PM EDT Office Visit [facility] [address] [facility] 120 [place] [address] Tip Morillo, DPM 3006 [facility] 5 [place] [address] 03/21/2025 11:00 AM EDT Office Visit [facility] [address] [facility] 110 [place] [address] Erin Tariq, PA [address] [facility] 110 [place] [address] documented as of this encounter Goals Goal [...] as of this encounter Care Teams Community Organization Director Relationship Specialty Start Date End Date Jer Rizo MD [address] Jose Armando 110 [place] [address] PCP - General Internal Medicine 01/03/23 Jer Rizo MD [address] Jose Armando 110 [place] [address] PCP - Devoted 05/29/23 05/28/24 Jer Rizo MD [address] Jose Armando 110 [place] [address] PCP - Sari HERNANDEZ 05/29/24 11/25/24 Aggie Gallardo, SUPERVISOR TREE TRIMMING-HARDWARE TEST ENGINEER [address] Jose Armando 160 [place] [address] PCP - Sari HERNANDEZ 11/26/24 Aggie Gallardo, SUPERVISOR TREE TRIMMING-HARDWARE TEST ENGINEER [address] Jose Armando 160 [place] [address] Nurse Practitioner Psychiatry 06/13/24 Madyson Figueroa, BETY [address] Jose Armando 230 [place] [address] Registered Nurse Family Medicine 08/14/24 03/03/25 Braeden Dunham LPC Therapist Behavioral Health 11/25/24 documented as of this encounter
--- OUTSIDE RECORDS SUMMARY | 2025-03-12 14:08 | XMS_ITS | Encounter Summary ---
Author Organization [facility] Address [address] [facility] [place] [address] Care Team Providers Care Cleaning Machine Operator Name Role Phone Jer Rizo MD Primary Care Provider [phone] Aggie Gallardo CUSTOMER SERVICES COORDINATOR-ELECTRICAL INSPECTOR Unavailable Madyson Figueroa RN Unavailable [phone] Braeden Dunham LPC Unavailable Unavailable Aggie Gallardo CUSTOMER SERVICES COORDINATOR-ELECTRICAL INSPECTOR Unavailable Encounter Details Date Type Department Care Team (Late st Contact Info) Description 12/20/2024 Abstract [facility] [place] [facility] 112 [facility] 110 [place] [id number] Jer Rizo MD 112 [facility] 110 [place] [address] Social History Tobacco Use Types [...] Recorded Patient Health Questionnaire-2 Score 2 12/17/2024 [facility] - Occupational Stress Questionnaire Answer Date [...] any time in the past [address] [facility], were you homeless or living [...] [facility] [facility] [address] [facility] 160 [place] [address] Aggie Gallardo, CUSTOMER SERVICES COORDINATOR-ELECTRICAL INSPECTOR [address] [facility] 160 [place] [address] 03/20/2025 3:50 PM EDT Office Visit [facility] [address] [facility] 120 [place] [address] Tip Morillo, DPM 3006 [facility] 5 [place] [address] 03/21/2025 11:00 AM EDT Office Visit [facility] [facility] [address] [facility] 110 [place] [address] Erin Tariq, PA [address] [facility] 110 [place] [address] documented as of this encounter Goals Goal [...] documented as of this encounter Care Teams Cleaning Machine Operator Relationship Specialty Start Date End Date Jer Rizo MD [address] Jose Armando 110 [place] [address] PCP - General Internal Medicine 01/03/23 Aggie Gallardo, CUSTOMER SERVICES COORDINATOR-ELECTRICAL INSPECTOR [address] Jose Armando 160 [place] [address] PCP - Sari HERNANDEZ 11/26/24 Aggie Gallardo, CUSTOMER SERVICES COORDINATOR-ELECTRICAL INSPECTOR [address] [facility] 160 [place] [address] Nurse Practitioner Psychiatry 06/13/24 Madyson Figueroa, BETY [address] [facility] 230 [place] [address] Registered Nurse Family Medicine 08/14/24 03/03/25 Braeden Dunham LPC Therapist Behavioral Health 11/25/24 documented as of this encounter
--- OUTSIDE RECORDS SUMMARY | 2025-03-12 14:08 | XMS_ITS | Encounter Summary ---
Author Organization [facility] Address [address] [facility] [place] [address] Care Team Providers Care Telephone Clerks Supervisor Name Role Phone Jer Rizo MD Primary Care Provider [phone] Aggie Gallardo WELLNESS NURSE RN-TABULATING SUPERVISOR Unavailable Braeden Dunham [facility] Unavailable Unavailable Aggie Gallardo WELLNESS NURSE RN-TABULATING SUPERVISOR Unavailable Encounter Details Date Type Department Care Team (Late st Contact Info) Description 03/10/2025 [facility] Only [facility] [address] [facility] 110 [place] [address] Unallocated, Noms Provider, [address] [place], [place] [address] Social History Tobacco Use Types Packs/Day Years [...] Recorded Patient Health Questionnaire-2 Score 2 12/17/2024 [facility]at ional [facility] - [...] WAY [facility] 160 [place] [address] Aggie Gallardo, WELLNESS NURSE RN-TABULATING SUPERVISOR [address] [facility] 160 [place] [address] 03/20/2025 3:50 PM EDT Office Visit [facility] [address] [facility] 120 [place] [address] Tip Morillo DPM 3006 [facility] [place] 5 [place] [address] 03/21/2025 11:00 AM EDT Office Visit [facility] [facility] [address] [facility] 110 [place] [address] Erin Tariq PA [address] [facility] 110 [place] [address] documented as of this encounter Goals Goal Patient Goal Type Associated Problems Recent Progress Patient-Stated? Author Help patient manage antidepressant medication Care Plan Patient on antidepressant monitoring plan No Francia Gannon MA documented as of this encounter Procedures Procedure Name Priority Date/Time Associated Diagnosis Comments COLONOSCOPY DIAGNOSTIC Routine 03/10/2025 8:00 AM EDT documented in this encounter Results * COLONOSCOPY DIAGNOSTIC (03/10/2025 8:00 AM EDT) Anatomical Region Laterality Modality Radiographic Josefa ging us Noms Provider Unallocated MD KIM XR PROCEDURES F inal Result documented in this encounter Visit Diagnoses Not on filedocumented in this encounter Additional Health Concerns Active Problems Noted Date Diagnosed Date Patient on antidepressant monitoring plan 2023 Assessment Noted Time PHQ-9 Depression Total Score: 9 12/18/19 25 10:00 AM EDT documented as of this encounter Care Teams Telephone Clerks Supervisor Relationship Specialty Start Date End Date Jer Rizo MD [address] [facility] 110 [place] [address] PCP - General Internal Medicine 01/03/23 Aggie Gallardo, WELLNESS NURSE RN-TABULATING SUPERVISOR [address] [facility] 160 [place] [address] PCP - Sari HERNANDEZ 11/26/24 Aggie Gallardo, WELLNESS NURSE RN-TABULATING SUPERVISOR [address] [facility] 160 [place] [address] Nurse Practitioner Psychiatry 06/13/24 Braeden Dunham LPC Therapist Behavioral Health 11/25/24 documented as of this encounter
--- OUTSIDE RECORDS SUMMARY | 2025-03-12 14:09 | XMS_ITS | Patient Health Record ---
Author Organization [facility] Address [address] [place] [address] [place] [address] Care Team Providers Care Telecommunications Repairer Name Role Phone Carolynn Perez Primary Care Provider UnavailBhupinder Lugo Unavailable [phone] Reason For Referral No Information Plan Of Treatment No Information Insurance Providers Payer Name Payer Address Payer Phone Subscriber Number Group Number Insured Name Patient Relationship to Insured Coverage Start Date Coverage End Date [facility] [address] [place] [address] [id number] Sanna Edwards Self - patient is the insured
--- OUTSIDE RECORDS SUMMARY | 2025-03-12 14:09 | XMS_ITS | Encounter Summary ---
Author Organization [facility] Address [address] [facility] [address] Care Team Providers Care Vamp Cut Out Worker Name Role Phone Jer Rizo MD Primary Care Provider [phone] Jer Rizo MD Unavailable [phone] Aggie Gallardo MANAGER PROCUREMENT-PROPULSION MACHINERY SERVICE ENGINEER Unavailable Jer Rizo MD Unavailable [phone] Madyson Figueroa RN Unavailable [phone] Braeden Dunham LPC Unavailable Unavailable Aggie Gallardo MANAGER PROCUREMENT-PROPULSION MACHINERY SERVICE ENGINEER Unavailable Encounter Details Date Type Department Care Team (Late st Contact Info) Description 03/28/2023 Abstract [facility] [place] [facility] 112 [facility] 110 [place] [address] Jer Rizo MD 112 [facility] 110 [place], [place] [address] Social History Tobacco Use Types Packs/Day Years [...] [address] JOSE ARMANDO 160 [place] [address] Aggie Gallardo, MANAGER PROCUREMENT-PROPULSION MACHINERY SERVICE ENGINEER [address] Jose Armando 160 [place] [address] 03/20/2025 3:50 PM EDT Office Visit [facility] [address] JOSE ARMANDO [address] [place] [address] Tip Morillo, DPM 3006 [facility] 5 [place] [address] 03/21/2025 11:00 AM EDT Office Visit [facility] [place] [facility] [address] JOSE ARMANDO [address] [place] [address] Erin Tariq PA [address] Jose Armando 110 [place] [address] documented as of this encounter Visit Diagnoses Not on filedocumented in this encounter Additional Health Concerns Assessment Noted Time PHQ-9 Depression Total Score: 20 023 12:00 PM EDT documented as of this encounter Care Teams Vamp Cut Out Worker Relationship Specialty Start Date End Date Jer Rizo MD [address] Jose Armando 110 [place] [address] PCP - General Internal Medicine 01/03/23 Jer Rizo MD [address] Jose Armando 110 [place] [address] PCP - Devoted 05/29/23 05/28/24 Jer Rizo MD [address] Jose Armando 110 [place] [address] PCP - Sari HERANNDEZ 05/29/24 11/25/24 Aggie Gallardo APRN-PROPULSION MACHINERY SERVICE ENGINEER [address] [address] PCP - Sari HERNANDEZ 11/26/24 Aggie Gallardo APRN-PROPULSION MACHINERY SERVICE ENGINEER [address] [address] Nurse Practitioner Psychiatry 06/13/24 Madyson Figueroa RN [address] [facility] 230 [place] [address] Registered Nurse Family Medicine 08/14/24 03/03/25 Braeden Dunham LPC Therapist Behavioral Health 11/25/24 documented as of this encounter
--- OUTSIDE RECORDS SUMMARY | 2025-03-12 14:09 | XMS_ITS | Clinical Summary ---
Author Organization [facility] Address [address] [place] [address] Care Team Providers Care Websphere Portal Developer Name Role Phone Unavailable Primary Care Provider [...] of 2) 2011 COVID-19 Vaccine ( season) 2025 06/14/2022, 01/12/2021 Influenza Vaccine (#1) 2025 , [...] patient's age to complete this topic Insurance [facility]
--- OUTSIDE RECORDS SUMMARY | 2025-03-12 14:09 | XMS_ITS | Encounter Summary ---
Author Organization [facility] Address [address] [facility] [place] [address] Care Team Providers Care Clutch Inspector Name Role Phone Jer Rizo MD Primary Care Provider [phone] Jer Rizo MD Unavailable [phone] Aggie Gallardo VAULT PERSON-CURB SETTER Unavailable Jer Rizo MD Unavailable [phone] Madyson Figueroa RN Unavailable [phone] Braeden Dunham LPC Unavailable Unavailable Aggie Gallardo VAULT PERSON-CURB SETTER Unavailable Encounter Details Date Type Department Care Team (Late st Contact Info) Description 02/21/[address] [place] [facility] 112 [facility] 110 [place] [address] Jer Rizo MD 112 [facility] 110 [place], [place] [id number] Social History Tobacco Use Types Packs/Day Years [...] [address] JOSE ARMANDO 160 [place] [address] Aggie Gallardo, VAULT PERSON-CURB SETTER [address] Jose Armando 160 [place] [address] 03/20/2025 3:50 PM EDT Office Visit [facility] [address] JOSE ARMANDO [address] [place] [address] Tip Morillo, DPYared 3006 [facility] 5 [place] [address] 03/21/2025 11:00 AM EDT Office Visit [facility] [place] [facility] [address] JOSE ARMANDO [address] [place] [address] Erin Tariq PA [address] Jose Armando 110 [place] [address] documented as of this encounter Visit Diagnoses Not on filedocumented in this encounter Care Teams Clutch Inspector Relationship Specialty Start Date End Date Jer Rizo MD [address] Jose Armando 110 [place] [address] PCP - General Internal Medicine 01/03/23 Jer Rizo MD [address] Jose Armando 110 [place] [address] PCP - Devoted 05/29/23 05/28/24 Jer iRzo MD [address] Jose Armando 110 [place] [address] PCP - Sari HERNANDEZ 05/29/24 11/25/24 Aggie Gallardo, VAULT PERSON-CURB SETTER [address] [facility] 160 [place] [address] PCP - Sari HERNANDEZ 11/26/24 Aggie Gallardo, VAULT PERSON-CURB SETTER [address] [facility] 160 [place] [address] Nurse Practitioner Psychiatry 06/13/24 Madyson Figueroa, RN [address] [facility] 230 [place] [address] Registered Nurse Family Medicine 08/14/24 03/03/25 Braeden Dunham LPC Therapist Behavioral Health 11/25/24 documented as of this encounter
--- OUTSIDE RECORDS SUMMARY | 2025-03-12 14:09 | XMS_ITS | Encounter Summary ---
Author Organization [facility] Address [address] [facility] [place] [address] Care Team Providers Care Stapler Machine Name Role Phone Jer Rizo MD Primary Care Provider [phone] Aggie Gallardo GARMENT MANUFACTURING SUPERVISOR-CERTIFIED TRAVEL COUNSELOR Unavailable Jer Rizo MD Unavailable [phone] Madyson Figueroa RN Unavailable [phone] Braeden Dunham LPC Unavailable Unavailable Aggie Gallardo GARMENT MANUFACTURING SUPERVISOR-CERTIFIED TRAVEL COUNSELOR Unavailable Encounter Details Date Type Department Care Team (Late st Contact Info) Description 08/08/2024 Abstract [facility] [place] [facility] 112 [facility] 110 [place] [address] Jer Rizo MD 112 [facility] 110 [place] [address] Social History Tobacco Use Types [...] Recorded Patient Health Questionnaire-2 Score 2 07/30/2024 [facility] of Occupat ional Health - [...] any time in the past 12 m [facility], were you homeless or [...] [facility] [place] [facility] [address] [facility] 160 [place] [address] Aggie Gallardo, GARMENT MANUFACTURING SUPERVISOR-CERTIFIED TRAVEL COUNSELOR [address] [facility] 160 [place] [address] 03/20/2025 3:50 PM EDT Office Visit [facility] [address] [facility] 120 [place] [address] Tip Morillo DPM 3006 [facility] 5 [place] [address] 03/21/2025 11:00 AM EDT Office Visit [facility] [place] [facility] [address] [facility] 110 [place] [address] Erin Tariq PA [address] [facility] [address] [place] [address] documented as of this encounter Goals Goal [...] documented as of this encounter Care Teams Stapler Machine Relationship Specialty Start Date End Date Jer Rizo MD [address] [facility] [address] [place] [address] PCP - General Internal Medicine 01/03/23 Jer Rizo MD [address] [facility] [address] [place] [address] PCP - Sari HERNANDEZ 05/29/24 11/25/24 Aggie Gallardo, GARMENT MANUFACTURING SUPERVISOR-CERTIFIED TRAVEL COUNSELOR [address] [facility] [address] [place] [address] PCP - Sari HERNANDEZ 11/26/24 Aggie Gallardo, GARMENT MANUFACTURING SUPERVISOR-CERTIFIED TRAVEL COUNSELOR [address] [facility] [address] [place] [address] Nurse Practitioner Psychiatry 06/13/24 Madyson Figueroa, BETY [address] Jose Armando 230 [place] [address] Registered Nurse Family Medicine 08/14/24 03/03/25 Braeden Dunham LPC Therapist Behavioral Health 11/25/24 documented as of this encounter
--- OUTSIDE RECORDS SUMMARY | 2025-03-12 14:09 | XMS_ITS ---
Author Organization [facility] Address [address] [facility] [place] [address] Care Team Providers Care Ecommerce Manager Name Role Phone Jer Rizo MD Primary Care Provider [phone] Aggie Gallardo STEEL BARREL REAMER-COLORED LEATHER SETTER Unavailable Braeden Dunham [facility] Unavailable Unavailable Aggie Gallardo STEEL BARREL REAMER-COLORED LEATHER SETTER Unavailable Chronic Care Management (CCM) Status:Closed (Closed) Start date:08/14/2024 Enrollment date:08/14/2024 End date:03/03/2025 Close reason:Unable to reach patient Overview Please assess for Care Management needs. 08/14/24, 11:07 AM - Madyson Figueroa RN- Patient gives verbal consent to be enrolled in CCM Program and understands there could be a bill for this service. CCM Bill No <March 03, 2025, 09:22 - Madyson Figueroa RN> closed CCM program due to unable to contact pt/no participation in CCM services Continued Care and Services Coordination
--- OUTSIDE RECORDS SUMMARY | 2025-03-12 14:09 | XMS_ITS | Encounter Summary ---
Author Organization [facility] Address [address] [facility] [place] [address] Care Team Providers Care Needle Setter Name Role Phone Jer Rizo MD Primary Care Provider [phone] Aggie Gallardo MEDICAID BILLER-DIRECTOR WORKFORCE MANAGEMENT Unavailable Jer Rizo MD Unavailable [phone] Madyson Figueroa RN Unavailable [phone] Braeden Dunham LPC Unavailable Unavailable Aggie Gallardo MEDICAID BILLER-DIRECTOR WORKFORCE MANAGEMENT Unavailable Reason for Visit * Reason Comments Med Refill Encounter Details Date Type Department Care Team (Late st Contact Info) Description 07/31/2024 Refill [facility] [place] [facility] 112 [facility] 110 [place] [address] Erin Tariq, PA 112 [facility] 110 [place], [place] [address] Type 2 diabetes mellitus with autonomic neuropathy, unspecified whether salvage determiner insulin use (HCC); Chronic obstructive pulmonary disease, [...] Recorded Patient Health Questionnaire-2 Score 2 07/30/2024 [facility] - Occupational Stress Questionnaire Answer Date Recorded [...] [address] JOSE ARMANDO [address] [place] [address] Aggie Gallardo APRN-DIRECTOR WORKFORCE MANAGEMENT [address] Jose Armando [address] [place] [address] 03/20/2025 3:50 PM EDT Office Visit [facility] [address] JOSE ARMANDO [address] [place] [address] Tip Morillo DPM 3006 [facility] 5 [place] [address] 03/21/2025 11:00 AM EDT Office Visit [facility] 112 [facility] 110 [place] [address] Erin Tariq PA 112 [facility] 110 [place] [address] documented as of this encounter Goals Goal Patient Goal Type Associated Problems Recent Progress Patient-Stated? Author Help patient manage antidepressant medication Care Plan Patient on antidepressant monitoring plan Francia Bryant MA documented as of this encounter Visit Diagnoses Diagnosis Type 2 diabetes mellitus with autonomic neuropathy, unspecified whether salvage determiner insulin use (HCC) Chronic obstructive pulmonary disease, unspecified COPD type (HCC) Diabetes 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, unspecified whether salvage determiner insulin use (HCC)- Primary Pain due to [...] documented as of this encounter Care Teams Needle Setter Relationship Specialty Start Date End Date Jer Rizo MD 112 [facility] 110 [place] [address] PCP - General Internal Medicine 01/03/23 Jer Rizo MD 112 [facility] 110 [place] [address] PCP - Sari HERNANDEZ 05/29/24 11/25/24 Aggie Gallardo APRN-DIRECTOR WORKFORCE MANAGEMENT 112 [facility] 160 [place] [address] PCP - Sari HERNANDEZ 11/26/24 Aggie Gallardo, MEDICAID BILLER-DIRECTOR WORKFORCE MANAGEMENT 112 [facility] 160 [place] [address] Nurse Practitioner Psychiatry 06/13/24 Madyson Figueroa, BETY [address] [facility] 230 [place] [address] Registered Nurse Family Medicine 08/14/24 03/03/25 Braeden Dunham LPC Therapist Behavioral Health 11/25/24 documented as of this encounter
--- OUTSIDE RECORDS SUMMARY | 2025-03-12 14:09 | XMS_ITS | Encounter Summary ---
Author Organization [facility] Address [address] [place] [address] Care Team Providers Care Bereavement Coordinator Name Role Phone Jer Rizo MD Primary Care Provider [phone] Jer Rizo MD Unavailable [phone] Aggie Gallardo TUBE MACHINE OPERATOR-MALWARE ANALYST Unavailable Jer Rizo MD Unavailable [phone] Madyson Figueroa RN Unavailable [phone] Braeden Dunham LPC Unavailable Unavailable Aggie Gallardo TUBE MACHINE OPERATOR-MALWARE ANALYST Unavailable Encounter Details Date Type Department Care Team (Late st Contact Info) Description 03/28/[address] [facility] [place] [facility] [address] [facility] [address] [place] [id number] Jer Rizo MD [address] [facility] [address] [place], [place] [id number] Social History Tobacco Use Types Packs/Day Years [...] [address] [place] [address] Aggie Gallardo, TUBE MACHINE OPERATOR-MALWARE ANALYST [address] [place] [address] 03/20/2025 3:50 PM EDT Office Visit [facility] [address] [place] [address] Tip Morillo, DPM [address] [facility] 5 [place] [address] 03/21/2025 11:00 AM EDT Office Visit [facility] [place] [facility] [address] [place] [address] Erin Tariq PA [address] [place] [address] documented as of this encounter Visit Diagnoses Not on filedocumented in this encounter Additional Health Concerns Assessment Noted Time PHQ-9 Depression Total Score: 20 023 12:00 PM EDT documented as of this encounter Care Teams Bereavement Coordinator Relationship Specialty Start Date End Date Jer Rizo MD [address] [place] [address] PCP - General Internal Medicine 01/03/23 Jer Rizo MD [address] [place] [address] PCP - Devoted 05/29/23 05/28/24 Jer Rizo MD [address] [place] [address] PCP - Sari HERNANDEZ 05/29/24 11/25/24 Aggie Gallardo APRN-MALWARE ANALYST [address] [address] PCP - Sari HERNANDEZ 11/26/24 Aggie Gallardo APRN-MALWARE ANALYST [address] [address] Nurse Practitioner Psychiatry 06/13/24 Madyson Figueroa RN [address] [facility] [address] [place] [address] Registered Nurse Family Medicine 08/14/24 03/03/25 Braeden Dunham LPC Therapist Behavioral Health 11/25/24 documented as of this encounter
--- OUTSIDE RECORDS SUMMARY | 2025-03-12 14:10 | XMS_ITS | Encounter Summary ---
Author Organization [facility] Address [address] [place] [address] Phone Care Team Providers Care Water Softener Servicer Name Role Phone Unavailable Primary Care Provider Unavailabl e Encounter Details Date Type Department Care Team (Late st Contact Info) Description 10/17/2004 Orders Only [facility] [address] [place] [address] Scanning, Generic Provider Social History [...]
--- OUTSIDE RECORDS SUMMARY | 2025-03-12 14:10 | XMS_ITS | Clinical Summary ---
Author Organization [facility] Address [address] [facility] [place] [address] Care Team Providers Care Consulting Senior Practice Director Name Role Phone Jer Rizo MD Primary Care Provider [phone] Aggie Gallardo SUPERVISOR PASTE MIXING-ENGINEER OPERATIONS AND MAINTENANCE Unavailable Braeden Dunham LPC Unavailable Unavailable Aggie Gallardo SUPERVISOR PASTE MIXING-ENGINEER OPERATIONS AND MAINTENANCE Unavailable Allergies Active Allergy Reactions Criticality Noted [...] 7 DAY(S) 30 g 2 023 Active albuterol HFA (Ventolin HFA) 90 mcg/act [...] the evening. 60 capsule 2 024 Active hydrOXYzine pamoate (Vistaril) 25 MG capsuleIndicatio [...] mouth if needed for low blood sugar 025 Active Multiple Vitamin (MULTIVITAMIN ADULT PO) Take 1 tablet by mouth Daily Active traZODone (Desyrel) 100 MG tabletIndication s:Bipolar affective disorder, currently depressed, moderate (HCC) Take 1.5 tablets (150 mg) by mouth at bedtime 025 Active Continuous Glucose Sensor (FreeStyle Gomez 3 Plus Sensor) miscIndications: Type 2 diabetes mellitus with other specified complication, with long-term current use of insulin (HCC) 1 each Every 15 Days 6 each 3 025 2025 Active Continuous Glucose Pipeline Engineer (FreeStyle Gomez 3 Reynolds) deviceIndication s:Type 2 diabetes mellitus with other specified complication, with long-term current use of insulin (HCC) 1 Device continuously 1 each 025 Active furosemide (Lasix) 40 MG tabletIndication s:Localized edema TAKE 1 TABLET BY MOUTH TWICE A DAY 180 tablet 4 025 Active metoprolol tartrate (Lopressor) 25 MG tabletIndication s:Essential hypertension, benign TAKE 1 TABLET BY MOUTH IN THE MORNING AND BEFORE BEDTIME 180 tablet 4 025 Active levothyroxine (Synthroid, Levoxyl) 112 MCG tabletIndication s:Hypothyroidism , unspecified type TAKE 1 TABLET (112 MCG) BY MOUTH IN THE MORNING 100 tablet 3 025 Active rosuvastatin (Crestor) 5 MG tabletIndication s:Hypokalemia TAKE 1 TABLET BY MOUTH EVERY DAY 100 tablet 3 025 Active Insulin Pen Needle (pen needle 10/11 ) 31G X 8 mm miscIndications: Type 2 diabetes mellitus with other specified complication, without long-term current use of insulin ([facility]) Inject 1 each under the skin Daily Use as instructed with Lantus SoloStar 100 each 3 025 Active Lancets 30G miscIndications: Type 2 diabetes mellitus with other specified complication, without long-term current use of insulin ([facility]) 1 each Daily Check blood glucose daily. 025 Active escitalopram (Lexapro) 20 MG tabletIndication s:Bipolar affective disorder, currently depressed, moderate (HCC) Take 1 tablet (20 mg) by mouth Daily 90 tablet 025 Active potassium chloride CR (Klor-Con) 10 MEQ ER tabletIndication s:Primary hypertension Take 1 tablet (10 mEq) by mouth Daily 90 tablet 3 025 Active semaglutide (Ozempic, 1 MG/DOSE,) 4 MG/3ML solution pen-injectorIndi cations:Type 2 diabetes mellitus with other specified complication, without long-term current use of insulin ([facility]) Inject 1 mg under the skin 1 (one) time per week 025 Active Budeson-Glycopyr rol-Formoterol (Breztri Aerosphere) 160-9-4.8 MCG/ACT aerosolIndicatio ns:Chronic obstructive pulmonary disease, unspecified COPD type (HCC) Inhale 2 puffs in the morning and 2 puffs before bedtime. Rinse mouth after each use. 10.7 g 5 Active DULoxetine (Cymbalta) [address] capsuleIndicatio ns:Bipolar affective disorder, currently depressed, moderate (HCC) TAKE 2 CAPSULES BY MOUTH EVERYDAY AT THE SAME TIME 200 capsule 3 025 Active baclofen (Lioresal) 10 MG tabletIndication s:Cervical spondylosis TAKE 1 TABLET BY MOUTH THREE TIMES A DAY NEEDED 270 tablet 1 025 Active Cariprazine HCl (Vraylar) 3 MG capsuleIndicatio ns:Mixed bipolar affective disorder, moderate (HCC) Take 1 capsule by mouth at bedtime 30 capsule 2 025 2024 Active gabapentin (Neurontin) 600 MG tabletIndication s:Type 2 diabetes mellitus with autonomic neuropathy, unspecified whether jail insulin use (HCC) TAKE 1 TABLET BY MOUTH TWICE A DAY AND 2 AT BEDTIME 120 tablet 6 025 Active dapagliflozin (Farxiga) 10 MGIndications:Ty pe 2 diabetes mellitus with diabetic autonomic (poly)neuropathy (HCC) Take 1 tablet (10 mg) by mouth Daily 100 tablet 3 025 Active lamoTRIgine (LaMICtal) 200 MG tabletIndication s:Bipolar affective disorder, currently depressed, moderate (HCC) Take 1 tablet (200 mg) by mouth at bedtime 90 tablet 025 2024 Active insulin glargine (Lantus SoloStar) 100 UNIT/ML penIndications:T ype 2 diabetes mellitus with other specified complication, without long-term current use of insulin ([facility]) INJECT 20 UNITS UNDER THE SKIN IN THE MORNING. 20 mL 3 025 Active insulin glargine (Lantus SoloStar) 100 UNIT/ML penIndications:T ype 2 diabetes mellitus with other specified complication, without long-term current use of insulin (HCC) Inject 20 Units under the skin in the morning. 9 mL 3 025 2024 Discontinued Hospital, Clinic, or Other Facility Administered Medication Ordered Dose Route Frequency Start Date End Date Status bupivacaine PF (Marcaine) 0.5 % injection 2 mLIndications:Arthri tis of right knee,Chondromalacia, patella, right 2 mL IJ Once PRN Procedure 02/19/2025 02/19/2025 Ended methylPREDNISolone acetate (DEPO-Medrol) injection 40 mgIndications:Arthri tis of right knee,Chondromalacia, patella, right 40 mg IX Once PRN Procedure 02/19/2025 02/19/2025 Ended Active Problems Problem Noted Date Diagnosed Date Chronic diastolic heart failure 11/14/2024 Pulmonary hypertension 11/14/2024 Unstable angina 11/14/2024 Pseudophakia 01/05/2024 Morbid (severe) obesity due to excess calories 0 12/06/2023 Body mass index (BMI) 50.0-59.9, adult Chronic respiratory failure with hypoxia 024 Abdominal [...] alveolar hypoventilation Atherosclerotic 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[place] coronary artery without angina pectoris 01/02/2023 Mixed [...] gait due to impairment of balance 06/08/2022 Depressive disorder 06/08/2022 Disability affecting daily living 06/08/2022 Hip pain 06/08/2022 Nontraumatic rotator cuff [...] persistent asthma w ithout complication 01/02/2023 03/22/2023 Acute severe exacerbation of severe persistent asthma 06/08/2022 12/17/2024 Fall 06/08/2022 12/17/2024 Encounters Date Type Department Care Team Description 03/10/2025 Orders Only [facility] [place] [facility] [address] [place] [address] Unallocated, Tricia Mcneil MD 03/10/2025 Abstract [facility] [place] [facility] [address] [place] [phone] Jer Rizo MD 03/06/2025 Refill [facility] [place] [facility] [address] [place] [address] Erin Tariq, PA Type 2 diabetes mellitus with other specified complication, without long-term current use of insulin ([facility]) 02/19/2025 11:10 AM EDT Ancillary Procedure [facility] [place] [phone] 02/19/2025 11:00 AM EDT Office Visit [facility] [place] [phone] Sunny Cabrera, TEETEE Acute pain of right knee (Primary Dx); Arthritis of right knee; Chondromalacia, patella, right 02/19/2025 Refill [facility] [address] [place] [phone] Aggie Gallardo, SUPERVISOR PASTE MIXING-ENGINEER OPERATIONS AND MAINTENANCE Bipolar affective disorder, currently depressed, moderate ([facility]) 02/19/2025 Bamboo flowsheet [facility] [place] [address] Sunny Cabrera PA 02/19/2025 Travel 02/18/2025 Abstract [facility] [address] [place] [phone] Jer Rizo MD 02/06/2025 Refill [facility] [address] [place] [phone] Latoya Fried LPN Bipolar affective disorder, currently depressed, moderate ([facility]) 01/31/2025 Patient Outreach [facility] [address] [place] [address] Madyson Figueroa RN 01/28/2025 Refill [facility] [address] [place] [phone] Jer Rizo MD 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)neuropathy ([facility]) 01/27/2025 [facility] [address] [place] [phone] Jer Rizo MD Type 2 diabetes mellitus with autonomic neuropathy, unspecified whether termite control representative insulin use ([facility]) 01/20/2025 [facility] [address] [place] [address] Latoya Fried LPN Mixed bipolar affective disorder, moderate (HCC) 01/11/2025 Refill [facility] [place] [facility] [address] [place] [address] Jer Rizo MD Cervical spondylosis 01/02/2025 Abstract [facility] [facility] [address] [place] [address] Jer Rizo MD 01/02/2025 Refill [facility] [place] [facility] [address] [place] [address] Erin Tariq PA Bipolar affective disorder, currently depressed, moderate (HCC) 01/01/2025 Patient Outreach [facility] [address] [facility] [place] [address] Madyson Figueroa RN 12/30/2024 Abstract [facility] [facility] [address] [place] [address] Jer Rizo MD 12/25/2024 Refill [facility] [place] [facility] [address] [place] [address] Zainab Phillips LPN Chronic obstructive pulmonary disease, unspecified COPD type ([facility]) 12/24/2024 Abstract [facility] [facility] [address] [place] [address] Jer Rizo MD 12/20/2024 Refill [facility] [place] [facility] [address] [place] [address] Stephenie Morrison MA 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)neuropathy ([facility]) 12/20/2024 Abstract [facility] [place] [facility] [address] [place] [address] Jer Rizo MD 12/19/2024 Abstract [facility] [address] [place] [address] Jer Rizo MD 12/19/2024 Patient Outreach [place] [address] [place] [address] Madyson Figueroa RN 12/18/2024 Patient Outreach [place] [address] [place] [address] Madyson Figueroa RN 12/17/2024 10:30 AM EDT Office Visit [facility] [address] [place] [address] Erin Tariq PA Medicare annual wellness visit, subsequent (Primary Dx); ACP (advance care planning); Autonomic neuropathy due to type 2 diabetes mellitus ([facility]); Lumbar radiculopathy; Obstructive sleep apnea syndrome; Spinal stenosis of lumbar region, unspecified whether neurogenic claudication present; Chronic obstructive pulmonary disease, unspecified COPD type (HCC); Chronic respiratory failure with hypoxia (HCC); Diaphragmatic hernia without obstruction or gangrene; Extreme obesity with alveolar hypoventilation ([facility]); Oxygen dependent; Severe persistent asthma without complication (HCC); Abdominal aortic ectasia; Atherosclerosis of [place] coronary artery of [place] heart without angina pectoris ; Chronic diastolic heart failure (HCC); Dissection of aorta, unspecified portion of aorta (HCC); Primary hypertension ; Type 2 diabetes mellitus with other specified complication, without long-term current use of insulin ([facility]); Encounter for screening mammogram for malignant neoplasm of breast; Acquired hypothyroidism ; Lumbar pain; Abnormal CT scan; Adenomatous polyp of colon, unspecified part of colon; Allergic rhinitis due to pollen, unspecified seasonality; Atypical migraine ; Bilateral primary osteoarthritis of knee; Bipolar affective disorder, currently depressed, moderate (HCC); Chondromalacia of patella, left; Chronic diarrhea; Fibromyalgia; Chronic sinusitis, unspecified location; Chronic idiopathic constipation; Dyspepsia; Mixed bipolar affective disorder, moderate (HCC); Myalgia; Nonalcoholic steatohepatitis (IVAN); Persistent hoarseness; Refractory obstruction of nasal airway; Rheumatoid arthritis involving multiple sites, unspecified whether rheumatoid factor present ([facility]); Cervical spondylosis; Stasis dermatitis of both legs; JENN (generalized anxiety disorder) ; History of falling; History of psychiatric disorder; Type 2 diabetes mellitus with hyperglycemia, without long-term current use of insulin (HCC); Limitation of activities due to disability; Muscle weakness (generalized); Abnormality of gait due to impairment of balance; Hypokalemia; Endometriosis; Morbid (severe) obesity due to excess calories ([facility]); Body mass index (BMI) 50.0-59.9, adult ([facility]); Pseudophakia; Depressive disorder ; Disability affecting daily living; Bilateral hip pain; Nontraumatic tear of rotator cuff, unspecified laterality, unspecified tear extent; Age-related osteoporosis without current pathological fracture ; Pain of both shoulder joints; Pulmonary hypertension ([facility]); Unstable angina ([facility]); Bilateral acute otitis media 12/17/2024 Bamboo flowsheet [facility] [address] [facility] [address] [place] [address] Erin Tariq PA 12/17/2024 Travel 12/13/2024 Abstract [facility] [address] [facility] [address] [place] [address] Jer Rizo MD 12/12/2024 [facility] [address] [facility] [address] [place] [address] Aggie Gallardo, SUPERVISOR PASTE MIXING-ENGINEER OPERATIONS AND MAINTENANCE Bipolar affective disorder, currently depressed, moderate ([facility]) 12/10/2024 Clinisync Result Encounter [facility] External Department Unsolicited Provider, Generic External Data from Last 3 Months Immunizations Immunization Administration [...] Recorded Patient Health Questionnaire-2 Score 2 12/17/2024 [facility] - Occupational Stress Questionnaire Answer [...] Sign Reading Time Taken Comments Blood Pressure 116/74 12/17/2024 10:53 AM EDT Pulse 58 12/17/2024 10:53 AM EDT Temperature 37.4 C (99.3 F) 02/21/2024 1:02 PM EDT Respiratory Rate 18 12/17/2024 10:53 AM EDT Oxygen Saturation 95% 12/17/2024 10:53 AM EDT Inhaled Oxygen Concentration - - Weight 119 kg (262 lb 12.8 oz) 12/17/2024 10:53 AM EDT Height 149.9 cm (4' 11 ) 12/17/2024 10:53 AM EDT Body Mass Index 53.08 12/17/2024 10:53 AM EDT Plan of Treatment Upcoming Encounters Date Type Department Care Team (Late st Contact Info) Description 03/13/2025 1:30 PM EDT Office Visit [facility] [place] [facility] [address] [facility] [address] [place] [address] Aggie Gallardo, SUPERVISOR PASTE MIXING-ENGINEER OPERATIONS AND MAINTENANCE [address] [facility] [address] [place] [address] 03/20/2025 3:50 PM EDT Office Visit [facility] [address] [facility] [address] [place] [address] Tip Morillo, DPM [address] [facility] [address] [place] [address] 03/21/2025 11:00 AM EDT Office Visit [facility] [facility] [address] [facility] [address] [place] [address] Erin Tariq PA [address] [facility] [address] [place] [address] Health Maintenance Due Date Last Done Comments CT Colonography 1961 FIT-DNA 1961 FIT 1961 FOBT 1961 Sigmoidoscopy 1961 Pap Smear 1982 Cervical Cancer Screening 1991 HPV/Cotest 1991 Diabetes: Urine Protein Screening 03/23/2024 03/23/2023, 03/24/2021, 11/20/2019, Additional history exists Mammogram 05/17/2024 05/17/2023, 08/27, 09/17/2018, Additional history exists Influenza Vaccine (#1) 2025 , 04/13/2023, 03/31/2022, Additional history exists Diabetes: Hemoglobin A1C 03/19/2025 025, 08/14/2024, 03/27/2024, Additional history exists Diabetes: Retinopathy Screening 11/27/2025 11/28/2023, 11/28/2023, 11/28/2023, Additional history exists Medicare Annual Wellness (AWV) 12/17/2025 0 12/17/2024, 12/06/2023, 03/22/2023, Additional history exists Colonoscopy 03/10/2035 03/10/2025, 02/26, 03/07/2025, Additional history exists Colorectal Cancer Screening 03/10/2035 Goals Goal Patient Goal Type Associated Problems Recent Progress Patient-Stated? Author Help patient manage antidepressant medication Care Plan Patient on antidepressant monitoring plan No Francia Gannon MA Procedures Procedure Name Priority Date/Time Associated Diagnosis Comments COLONOSCOPY DIAGNOSTIC Routine 8:00 AM EDT CO ARTHROCENTESIS ASPIR&/INJ MAJOR JT/BURSA W/O US Routine 02/19/2025 11:31 AM EDT Arthritis of right knee Chondromalacia, patella, right XR KNEE 1-2 VIEWS RIGHT Routine 02/20/20 11:06 AM EDT Acute pain of right knee POCT GLYCATED HEMOGLOBIN, TOTAL Routine 12/17/2024 10:52 AM EDT Type 2 diabetes mellitus with other specified complication, without long-term current use of insulin (HCC) XR CERVICAL SPINE 5V 12/10/2024 3:05 PM EDT BI MAMMOGRAM SCREENING TOMOSYNTHESIS BILATERAL Routine 05/17/2023 2:51 PM EST Encounter for screening mammogram for malignant neoplasm of breast MICROALBUMIN / CREATININE URINE RATIO Routine 03/23/2023 1:40 PM EDT Type 2 diabetes mellitus with other specified complication, without long-term current use of insulin (HCC) DIABETIC RETINOPATHY SCREENING - OU - BOTH EYES Routine 01/26/2023 from Last 3 Months or Most Recently Relevant to Health Maintenance Results * COLONOSCOPY DIAGNOSTIC (03/10/2025 8:00 AM EDT) Anatomical Region Laterality Modality Radiographic Josefa ging us [facility] Provider Unallocated MD IMG XR PROCEDURES F inal Result * CO ARTHROCENTESIS ASPIR&/INJ MAJOR JT/BURSA W/O US (02/19/2025 11:31 AM EDT) Narrative Sunny Cabrera PA - 02/19/2025 11:31 AM EDT TEETEE [place]le 02/19/2025 12:16 PM L Inj/Asp: R knee on 02/19/2025 11:31 AM Indications: pain Details: 22 G needle, anterolateral approach Medications: 40 mg methylPREDNISolone acetate 40 MG/ML; 2 mL bupivacaine PF 0.5 % Outcome: tolerated well, no immediate complications E UTILIZING ASEPTIC TECHNIQUE PT GIVEN INJECTION IN RIGHT KNEE, NEUROVASC INTACT S/P INJ, TOLERATED WELL Procedure, treatment alternatives, risks and benefits explained, specific risks discussed. Consent was given by the patient. Sunny KINGSLEY IN CLINIC/BEDSIDE ORDERABLES Final Result * XR knee 1 or 2 views right (02/19/2025 11:06 AM EDT) Anatomical Region Laterality Modality Lower Extremities, Knee Right [facility] Narrative 02/19/2025 12:16 PM EDT Imaging Result: AP and lateral right knee No acute fracture or dislocation Narrowing to medial and lateral weight bearing surfaces with subchondral sclerosis/ flattening and osteophytes of articular surface Lateral tracking patella with advance patella femoral arthritis, mild effusion Impression: Moderate to severe tricompartmental arthritis. Sunny KINGSLEY IMG XR PROCEDURES Final Resul t * (ABNORMAL) POCT Glycated hemoglobin, total (12/17/2024 10:52 AM EDT) Hemoglobin A1C 6.5 Blood 12/17/2024 10:5 2 AM EDT Erin KINGSLEY POINT OF CARE TEST ENTER/EDIT ORDERABLES Final Result * XR CERVICAL SPINE 5V (12/10/2024 3:05 PM EDT) Anatomical Region Laterality Modality Other 12/10/2024 3:05 PM EDT Narrative 12/10/2024 3:08 [place] [address] XRay Report Signed Patient: MALCOLM CORRALES MR#: [id number] : 1960 Acct:[id number] Age/Sex: 64 / F ADM Date: 12/10/24 Loc: RAD Attending Dr: Clayton Lemus NP Ordering Physician: Clayton Lemus NP Date of Service: 12/10/24 Procedure(s): XR cervical spine 5V Accession Number(s): [id number] cc: JER RIZO ; Clayton Lemus NP [place] [address] Patient Name: MALCOLM CORRALES MRN: [id number] date: 1960 Sex: F Assigned Patient Location: RAD Current Patient Location: RAD Accession/Order Number: [id number] Exam Date: 12/10/2024 15:03 Report Date: 12/10/2024 [...] Blackwell M.D. 12/10/2024 3:05 PM Dictation Location: [place] [address] Electronically authenticated by: [id number] Y Date: 12/10/2024 15:05 Dictated By: Mauri Blackwell D.O. Signed By: 12/10/24 1508 DD/ 04 TD/TT: Diesel Locomotive Engineer: Procedure Note Radiology, Radiologist, MD - 12/10/2024 [place] [address] XRay Report Signed Patient: MALCOLM CORRALES AMR#: [id number] : 1960cct:[id number] Age/Sex: 64 / FADM Date: 12/10/24 Loc: RAD Attending Dr: Clayton Lemus NP Ordering Physician: Clayton Lemus NP Date of Service: 12/10/24 Procedure(s): XR cervical spine 5V Accession Number(s): [id number] cc: JER RIZO ; Clayton Lemus NP [place] [id number] Patient Name: MALCOLM CORRALES MRN: [id number] date: 1960 Sex: F Assigned Patient Location: [facility] Current Patient Location: RAD Accession/Order Number: [id number] Exam Date: 12/10/2024 15:03 Report Date: 12/10/2024 [...] Blackwell M.D. 12/10/2024 3:05 PM Dictation Location: [place] [address] Electronically authenticated by: [id number] Y Date: :05 Dictated By: Mauri Blackwell D.O. Signed By:12/10/24 1508 DD/ 1505 TD/TT: Diesel Locomotive Engineer: us Generic External Data Provider [facility] Final Result * Bilateral screening mammogram with tomosynthesis (05/17/2023 2:51 PM EST) Anatomical Region Laterality Modality Breast Bilateral Mammography 05/30/2023 9:56 AM EST Impressions 05/30/2023 12:47 PM EST BIRADS 2 - Benign Follow-up: Routine Screening Mamm . Board Certified Radiologists. Accredited by the ACR and FDA. MAMMOGRAPHY IS VERY IMPORTANT TO YOUR HEALTH. THE [employer] GUIDELINES RECOMMEND THAT WOMEN 40 [...] IS VERY IMPORTANT TO YOUR HEALTH. THE [employer] SOCIETYGUIDELINES RECOMMEND THAT WOMEN 40 YEARS [...] Performing Organization Information Site ID: [id number] Name: [facility] Address: [address] [place] [address], [address] [place] [id number] Director: Jw Camarena MD Erin KINGSLEY LAB URINE ORDERABLES Final Res ult [facility] * Diabetic Retinopathy Screening - OU - Both Eyes (01/26/2023) RESULTS ndr Anatomical Region Laterality Modality Head Other 01/26/2023 Jer Rizo MD OPHTH PHOTOGRAPHY Final Result from Last 3 Months or Most Recently Relevant to Health Maintenance Additional Health Concerns Active Problems Noted Date Diagnosed Date Patient on antidepressant monitoring plan 2023 Insurance [employer] MEDICARE ADVANTAGE Care Teams Consulting Senior Practice Director Relationship Specialty Start Date End Date Jer Rizo MD [address] [facility] [address] [place] [address] PCP - General Internal Medicine 01/03/23 Aggie Gallardo, SUPERVISOR PASTE MIXING-ENGINEER OPERATIONS AND MAINTENANCE 112 [facility] [address] [place] [address] PCP - Sari HERNANDEZ 11/26/24 Aggie Gallardo, SUPERVISOR PASTE MIXING-ENGINEER OPERATIONS AND MAINTENANCE 112 [facility] [address] [place] [address] Nurse Practitioner Psychiatry 06/13/24 Braeden Dunham LPC Therapist Behavioral Health 11/25/24
--- OUTSIDE RECORDS SUMMARY | 2025-03-12 14:10 | XMS_ITS | Encounter Summary ---
Author Organization [facility] Address [address] [place] [address] Phone Care Team Providers Care Butcher [employer] Name Role Phone Unavailable Primary Care Provider Unavailabl e Encounter Details Date Type Department Care Team (Late st Contact Info) Description 10/16/2024 Scanned Document [facility] [address] [place] [address] Scanning, Generic Provider Social History [...]
--- OUTSIDE RECORDS SUMMARY | 2025-03-12 14:10 | XMS_ITS | Clinical Summary ---
Author Organization [facility] Address [address] [place] [address] Phone Care Team Providers Care Retail Department Supervisor Name Role Phone Unavailable Primary Care [...] 2011 Zoster Vaccines (1 of 2) 2011 Influenza Vaccine (#1) 2024 COVID-19 Vaccine (1 - 2024-2 6 season) 2025 RSV High Risk: (Elderly (60+ ) [...] patient's age to complete this topic Insurance [facility] DUAL [facility]VANTAGE
--- OUTSIDE RECORDS SUMMARY | 2025-03-12 14:10 | XMS_ITS | Patient Health Record ---
Author Organization [facility] [place] Address [address] [place] [address] Care Team Providers Care Accountant Controller Name Role Phone Erin Tariq PA-C Primary Care Provider Unavail able ToribioAlexsandra Unavailable [phone] Pacosa Manjinder Unavailable [phone] Allergies Allergen (clinical drug ingredient) Drug/Non Drug [...] IN THE MORNING, EVENING AND BEFORE BEDTIME Oral; Duration: 90 Days Active traZODone HCl 100 MG TAKE 2 TABLETS BY M OUTH AT BEDTIME Oral; Duration: 90 Days Active HYDROcodone-Acetaminophen 5-325 MG 1 tablet as needed Orally every 6 hrs Active Vraylar 4.5 MG TAKE 1 CAPSULE BY MO UTH EVERY DAY Oral; Duration: 90 days Active Farxiga 10 MG TAKE 1 TABLET BY MICHAEL TH EVERY DAY Oral; Duration: 90 Days Active Omeprazole 20 MG 1 capsule 30 minutes before morning meal Orally Once a day Active Furosemide 40 MG TAKE 1 TABLET BY MICHAEL TH TWICE A DAY Oral; Duration: 90 Days Active Tradjenta 5 MG TAKE 1 TABLET BY MICHAEL TH EVERY DAY FOR 100 DAYS Oral; Duration: 90 Days Active Metoprolol Tartrate 25 MG TAKE 1 TABLET (25 MG) BY MOUTH IN THE MORNING AND BEFORE BEDTIME Oral; Duration: 90 Days Active DULoxetine HCl 60 MG Oral; Duration: 90 Days Active Mucinex DM 30-600 MG 1 tablet as needed Orally every 12 hrs Active busPIRone HCl 30 MG Oral; Duration: 90 Days Active Levothyroxine Sodium 112 MCG TAKE 1 TABL ET BY MOUTH ONCE A DAY AT THE SAME TIME. Oral; Duration: 90 Days Active Diclofenac Sodium 75 MG TAKE 1 TABLET BY MOUTH IN THE MORNING AND 1 TABLET BEFORE BEDTIME. DO NOT CRUSH, CHEW, OR SPLIT. Oral; Duration: 90 Days Active Baclofen 5 MG TAKE 1 TABLET BY MICHAEL TH THREE TIMES A DAY NEEDED Oral; Duration: 90 days Active LaMICtal 200 MG 1 tablet Orally Q HS Active Breztri Aerosphere 160-9-4.8 MCG/ACT Inhalation; Duration: 90 Days Active LaMICtal 25 MG 1 tablet Orally Q HS Active Albuterol Sulfate (2.5 MG/3ML) 0.083% INHALE 1 VIAL VIA NEBULIZER EVERY 8 HOURS Inhalation; Duration: 9 Days Active hydrOXYzine HCl 50 MG 1 tablet as needed Orally Once a day Active Albuterol Sulfate HFA 108 (90 Base) MCG/ACT 2 puffs as needed Inhalation every 4 hrs Active Januvia 100 MG 1 tablet Orally Once a day Active Immunizations Vaccine Route Administration Date Status Comme nts Arexvy Unknown 04/13/2023 Administered Flu, (76293) -historic- Whole Unknown 02/21/2024 Admini stered Flu, Flucelvax (90217) 2 yrs +, single-dose syringe (0561-0890) Unknown 04/13/2023 Administered Pneumococcal (Pneumovax 23) Unknown [...] Status Risk Notes Problem Chronic respiratory failure (24155900) Chronic respiratory failure with hypoxia (J96.11) Active confirmed Problem Chronic respiratory failure (98046493) Chronic respiratory failure with hypercapnia (J96.12) Active confirmed Problem Long-term current use of inhaled steroid (460610769) snf (current) use of inhaled steroids (Z79.51) Active confirmed Problem Morbid obesity (778432489) Morbid obesity (E66.01) Active confirmed Problem Obstructive sleep apnea syndrome (89243347) REBECCA (obstructive sleep apnea) (G47.33) Active confirmed Problem Diabetes mellitus type 2 (disorder) (08294780) DM2 (diabetes mellitus, type 2) (E11.9) Active confirmed Problem Extreme obesity with alveolar hypoventilation (014140260) Obesity hypoventilation syndrome (E66.2) Active confirmed Problem Secondary pulmonary hypertension (39988271) Other secondary pulmonary hypertension (I27.29) Active confirmed Problem Eosinophilic asthma (424743150) Eosinophilic asthma (J82.83) Active confirmed Problem Body mass index 40+ - morbidly obese (423889695) Body mass index [BMI] 50.0-59.9, adult (Z68.43) [...] Encounter Location Date Provider Diagnosis Pulmonary Medicine [facility] [address] [place] [address] 08/06/2024 Manjinder Altman REBECCA (obstructive sle ep apnea) G47.33 ; Obesity hypoventilation syndrome E66.2 ; Eosinophilic asthma J82.83 ; Chronic respiratory failure with hypoxia J96.11 ; Chronic respiratory failure with hypercapnia J96.12 ; Other secondary pulmonary hypertension I27.29 ; DM2 (diabetes mellitus, type 2) E11.9 ; Morbid obesity E66.01 ; 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 Z79.51 and Body mass index [BMI] 50.0-59.9, adult Z68.43 Pulmonary Medicine [facility] [address] [facility] [place] [address] 06/27/2024 [facility] [address] [facility] [place] [address] 07/09/2024 [facility] [address] [facility] [place] [address] 08/06/2024 [facility] [address] [facility] [place] [address] 08/26/2024 [facility] [address] [facility] [place] [address] 09/02/2024 [facility] [address] [facility] [place] [address] 10/22/2024 [facility] [address] [facility] [place] [address] 11/07/2024 [facility] [address] [facility] [place] [address] 11/11/2024 [facility] Assessments Encounter Date Diagnosis (ICD Code) Assessment Notes Treatment Notes Treatment Clinical Notes Section Notes 08/06/2024 REBECCA (obstructive sleep apnea) (ICD-10 - G47.33) Ptly-ri-vfkk encounter performed with the patient to document [...] bedtime and with any naps. -Note: This flgl-pb-bcyc visit comes with my authorization that the [...] respiratory failure with hypoxia (ICD-10 - J96.11) Oiok-xh-uqdf encounter performed with the patient to document [...] with REBECCA/OHS on top of asthma. 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 (ICD-10 - [...] Date [employer] ADV PLAN [address] [place] [address] [id number] Sanna Edwards Self - patient is the insured MEDICAID [place] 2ND INS [address] OF [facility] [address] [address] [place], [place] [id number] Sanna Edwards Self - patient is the insured Medical (General) History Medical History History ICD Code REBECCA (obstructive sleep apnea) G47.33 Obesity hypoventilation syndrome E66.2 Chronic respiratory failure with hypoxia J96.11 Chronic respiratory failure with hyperca pnia J96.12 Eosinophilic asthma J82.83 Other secondary pulmonary hypertension I 27.29 CAD (coronary artery disease) I25.10 DM2 (diabetes mellitus, type 2) E11.9 Deviated nasal septum J34.2 snf (current) use of inhaled stero ids Z79.51 Morbid obesity E66.01 Surgical History Surgery Date(Month/Year) tonsillectomy rotator cuff tear repair-right cholecystectomy carpal tunnel release-left right knee arthroscopy excision of breast mass Cardiac Catheterization 04/15/2015 Hospitalization History Reason Date(Month/Year) Acute Respiratory Failure-[facility] 06/08/2022
--- NOTE | 2025-03-13 07:43 | PM.CN ---
Consult Note: HPI Data of Consult Patient: known to practice within the last 3 years Consult date: 03/12/25 Requesting Physician: Connie Lemus NP Primary Care Provider: YVONNE DANIEL Consult Narrative Reason for consult: neck pain and right knee pain Narrative: 65yof who presents for evaluation. longstanding neck, low back pain history. advanced imaging of the neck and low back, which shows multilevel spondylosis and DDD throughout cervical and lumbar spines, though no acute pathology noted. she has continued in a series of provider directed home exercises >6 weeks, without any lasting benefit. she uses tramadol 50mg twice- three times daily as needed, as well as baclofen and gabapentin. derek medication side effects. pain today 5/10 increasing to 8/10 with ROM and activity such as lifting and ADLs. pt would also like to discuss right knee pain/oa, recently had a knee injection with Jhony Cabrera with relief for 3 days and no ongoing relief. she would like to discuss hyaluronic gel injections as mentioned by orthopedics at last OV. cc:: CC: Connie Lemus NP Review of Systems ROS Musculoskeletal Reports: neck pain and joint pain PFSH PFSH Medical History Endometriosis ?N80.9 - Endometriosis, unspecified (ICD-10) Osteoporosis ?M81.0 - Age-related osteoporosis without current pathological fracture (ICD-10) Asthma ?J45.909 - Unspecified asthma, uncomplicated (ICD-10) Chronic respiratory failure with hypoxia, on home O2 therapy ?J96.11 - Chronic respiratory failure with hypoxia (ICD-10) ?Z99.81 - Dependence on supplemental oxygen (ICD-10) Hiatal hernia ?K44.9 - Diaphragmatic hernia without obstruction or gangrene (ICD-10) Degenerative disc disease, lumbar ?M51.36 - Other intervertebral disc degeneration, lumbar region (ICD-10) Bipolar disorder ?F31.9 - Bipolar disorder, unspecified (ICD-10) Fibromyalgia ?M79.7 - Fibromyalgia (ICD-10) Hypothyroidism ?E03.9 - Hypothyroidism, unspecified (ICD-10) Rheumatoid arthritis ?M06.9 - Rheumatoid arthritis, unspecified (ICD-10) DM2 (diabetes mellitus, type 2) ?E11.9 - Type 2 diabetes mellitus without complications (ICD-10) Mixed hyperlipidemia ?E78.2 - Mixed hyperlipidemia (ICD-10) Essential hypertension ?I10 - Essential (primary) hypertension (ICD-10) Obesity ?E66.9 - Obesity, unspecified (ICD-10) COPD (chronic obstructive pulmonary disease) ?J44.9 - Chronic obstructive pulmonary disease, unspecified (ICD-10) Stable angina pectoris ?I20.89 - Other forms of angina pectoris (ICD-10) Surgical History H/O laparoscopy ?Z98.890 - Other specified postprocedural states (ICD-10) H/O cataract extraction ?Z98.49 - Cataract extraction status, unspecified eye (ICD-10) Hx laparoscopic cholecystectomy ?Z90.49 - Acquired absence of other specified parts of digestive tract (ICD-10) H/O cardiac catheterization ?Z98.890 - Other specified postprocedural states (ICD-10) Family History Other Breast cancer CAD (coronary artery disease) Family history of cancer Family history of diabetes mellitus Family history of hypertension Family history of myocardial infarction Social History Within the past year, how often did you have a drink containing alcohol: never Score interpretation: A score less than 3 is consistent with normal alcohol consumption. Smoking status: Never smoker Previous occupational history: retired/disability Highest level of school completed/degree received: high school graduate Little interest or pleasure in doing things: not at all Feeling down, depressed, or hopeless: not at all Gender Identity: female Meds Home Medications and Allergies Home Medications ?Medication ?Instructions ?Recorded ?Confirmed ?Type budesonide 160 mcg-glycopyr 9 2 inh inhalation BID 06/27/23 09/16/24 History mcg-formot 4.8 mcg/actuation HFA inhaler (Breztri Aerosphere) cariprazine 3 mg capsule (Vraylar) 3 mg PO QDAY 06/27/23 09/16/24 History dapagliflozin propanediol 10 mg 10 mg PO QAM 06/27/23 09/16/24 History tablet (Farxiga) diclofenac sodium 75 mg 75 mg PO Q12H 06/27/23 09/16/24 History tablet,delayed release furosemide 40 mg tablet 40 mg PO BID 06/27/23 09/16/24 History gabapentin 600 mg tablet 600 mg PO QAM 06/27/23 09/16/24 History levothyroxine 112 mcg tablet 112 mcg PO DAILY 06/27/23 09/16/24 History rosuvastatin 5 mg tablet 5 mg PO .qhs 06/27/23 09/16/24 History metoprolol tartrate 25 mg tablet 25 mg PO BID 06/28/23 09/16/24 History duloxetine 30 mg capsule,delayed 30 mg PO DAILY 09/16/24 09/16/24 History release (Cymbalta) semaglutide 0.25 mg or 0.5 mg (2 0.25 mg subcut QWEEK 09/16/24 09/16/24 History mg/3 mL) subcutaneous pen injector (Ozempic) tramadol 50 mg tablet 50 mg PO TID PRN pain #90 tabs 10/10/24 Rx tramadol 50 mg tablet 50 mg PO TID PRN pain #90 tabs 12/12/24 Rx tramadol 50 mg tablet 50 mg PO TID PRN pain #90 tabs 03/04/25 Rx Allergies Allergy/AdvReac Type Severity Reaction Status Date / Time ibandronate sodium (From Allergy Severe Hives Verified 09/16/24 11:31 Boniva) Sulfa (Sulfonamide Allergy Severe Anaphylaxis Verified 09/16/24 11:31 Antibiotics) Penicillins Allergy Intermediate Anaphylaxis Verified 09/16/24 11:31 Exam Constitutional Documenting provider has reviewed patient's vital signs: yes Common normals: no apparent distress, oriented x3 and alert General appearance: cooperative [facility] Common normals: normocephalic, hearing grossly normal bilaterally and moist oral mucous membranes Head and scalp: normocephalic Eye Common normals: PERRL Pupil: PERRL Neck & C-Spine Common normals: full ROM General: normal visual inspection Cervical spine: cervical ROM abnormal and pain with cervical ROM Other: positive spurlings decreased sensation bilateral C5,6,7 strength 5/5 in BUE Chest Common normals: inspection of chest normal Respiratory Common normals: normal respiratory effort, no retractions and no use of accessory muscles Extremity Right lower extremity: knee joint Other: moderate edema and crepitus, severe pain with medial and lateral stress testing without instability. enlarged proximal diameter Neuro Common normals: oriented x3 Sensorium/orientation: alert Motor exam: no movement abnormalities noted Psych Common normals: mental status grossly normal, thought process normal, cooperative, affect normal, speech normal and activity/motor behavior normal Speech: normal speech Thought process: normal thought process Results Additional Findings Additional findings: If on a controlled substance or opioids, I have checked an [place]AR[place] report on this patient and there are no aberrancies noted in the prescribing history.??If on a controlled substance or opioid a drug screen was completed and reviewed within the last year, and if there has not been a drug screen completed we ordered one today to monitor higher risk, state monitored pain medication use. As part of providing excellent, safe, comprehensive care, the following was completed at our patient's visit: 1. A medication reconciliation and review to ensure accurate knowledge of current/active medications, including asking our patients to inform us about any [id number] medications or herbal remedies/nutritional supplements/alternative remedies. 2. A review to specifically ensure our patients have had annual screening for screening for depression, screening for tobacco use, and screening for unhealthy alcohol use. For concerning screenings had a discussion with the patient, provided patient education, and recommended follow-up with primary care provider when appropriate. If patient noted with a risk of falling, they received education on strength, gait, and balance training to prevent future risk of falling. Portions of this note may have been carried over from the previous visit and updated as appropriate. Please note this office utilizes paper charting in addition to the electronic medical record. A list of current medications, vitals, and PMH is available there as the clinical staff outside of myself do not have access to [employer] charting during the clinic day operations. As part of providing quality comprehensive care the current medications, vitals, and PMH were reviewed in the paper chart. Assessment and Plan Assessment and Plan (1) Cervical radiculopathy: (2) Degenerative disc disease, cervical: (3) Cervical spinal stenosis: (4) Myalgia, other site: (5) Chronic use of opiate drug for therapeutic purpose: (6) Osteoarthritis of right knee: Plan The patient has had over 3 months of moderate to severe neck and right knee pain with functional impairment and inadequate response to conservative care including NSAIDS (unless there are contraindication such as concurrent blood thinners), multiple oral or topical pain medications, and home exercise program/physical therapy.? Patient has completed >6 weeks of guided home exercise program and/or formal physical therapy program without relief of their symptoms.? The Oswestry Disability Index was completed, and the patient scored a 52%.? since last visit pt did not complete cervical mri without contrast to further assess chronic neck pain, cervical ddd, cervical radiculopathy. will resubmit at this time in consideration of interventional therapy vs NS consultation decrease tramadol 50mg BID PRN moderate to severe pain 60 tabs/month proceed with right knee durolane injection with Dr Alfaro continue HEP as tolerated continue baclofen 10mg BID PRN pain/spasms f/u to revew cervical MRI
== END 2025-03-12 14:03 | disposition home or self-care (01) ==
LOC: PM 14:02
PROVIDERS: PCP Internal Medicine; Visit Provider Nurse Practitioner
DX: M54.12 Radiculopathy, cervical region (principal); M50.30 Other cervical disc degeneration, unspecified cervical region; M48.02 Spinal stenosis, cervical region; M79.18 Myalgia, other site; Z79.891 Long term (current) use of opiate analgesic; M17.11 Unilateral primary osteoarthritis, right knee
CPT/HCPCS: G0463

== ENCOUNTER 2025-03-31 13:54 | Outpatient (OUT) | payer MEDICARE, SELFPAY ==
--- OUTSIDE RECORDS SUMMARY | 2024-06-20 08:20 | XMS_ITS ---
Author Organization [facility] in [place] Address [address] [place] [address] Care Team Providers Care Residential Sales Associate Name Role Phone Erin Tariq PA-C Primary Care Provider Unavail able Alexsandra Rooney Unavailable [phone] REASON FOR VISIT Nail Care Encounters Encounter Location Date Provider Diagnosis [facility] (PODIATRY) [address] [place] [address] [place] [address] 06/20/2024 Alexsandra Rooney Plan Of Treatment No Information Progress Notes * Sanna CORRALES ADOB:08/1959 (65 yo F)Acc No.[id number]:06/20/2024 UNLOCKED PROGRESS NOTE New Patient Patient: Sanna CLAUDIO :?ELADIO MarquezCDOB:1960???Age:64 Y ???Sex:FemaleDate:06/20/2024Phone:[phone]:[address] [place], [place] [id number]:Erin Tariq PA-C Subjective: * Chief Complaints: * 1 . Nail Care. * Medical History: Objective: * Vitals: Assessment: Plan: * Treatment: * * Electronic signature of Alexsandra Rooney PA-C on 03/31/2025 at 01:58 PM ESTSign off status: PendingVisit Status:?CANC (Cancelled) * Provider: Christo Rooney PA-C Date: 0 06/20/2024 Generated for Printing/Faxing/eTransmitting on:?03/31/2025 01:58 PM EST
--- OUTSIDE RECORDS SUMMARY | 2024-10-28 06:00 | XMS_ITS ---
Author Organization The [facility] in [place] Address [address] [place] [address] Care Team Providers Care Hair Weaver Name Role Phone Erin Tariq PA-C Primary Care Provider Unavail vimal Manjinder Altman Unavailable [phone] REASON FOR VISIT 3m F/U - REBECCA/OHS, Asthma Encounters Encounter Location Date Provider Diagnosis Pulmonary Medicine [place] [address] [place] [address] 10/28/2024 Manjinder Altman Plan Of Treatment No Information Progress Notes * Sanna CORRLAES ADOB:08/1959 (65 yo F)Acc No.[id number]:10/28/2024 UNLOCKED PROGRESS NOTE Follow Up Patient: Milton PENA Sanna A :?Manjinderkai Altman DODOB:1960???Age:64 Y ???Sex:FemaleDate:10/28/2024Phone:[phone]:[address] [place], [place] [id number]:Erin Tariq PA-C Subjective: * Chief Complaints: * 1 . 3m F/U - REBECCA/OHS, Asthma. * Medical History: Objective: * Vitals: Assessment: Plan: * Treatment: * * Electronic signature of Manjinder Altman DO on 03/31/2025 at 01:58 PM ESTSign off status: PendingVisit Status:?R/S (Rescheduled) * Provider: Ilda Altman DO Date: 0 10/28/2024 Generated for Printing/Faxing/eTransmitting on:?03/31/2025 01:58 PM EST
--- OUTSIDE RECORDS SUMMARY | 2024-11-11 05:00 | XMS_ITS ---
Author Organization The [facility] in [place] Address [address] [place] [address] Care Team Providers Care Chartered Accountant Name Role Phone Erin Tariq PA-C Primary Care Provider Unavail vimal Manjinder Altman Unavailable [phone] REASON FOR VISIT 3m F/U - REBECCA/OHS, Asthma Encounters Encounter Location Date Provider Diagnosis Pulmonary Medicine [place] [address] [place] [address] 11/11/2024 Manjinder Altman Plan Of Treatment No Information Progress Notes * Sanna CORRALES ADOB:08/1959 (65 yo F)Acc No.[id number]:11/11/2024 UNLOCKED PROGRESS NOTE Follow Up Patient: Milton PENA Sanna A :?Manjinder Altman DODOB:1960???Age:64 Y ???Sex:FemaleDate:11/11/2024Phone:[phone]:[address] [place], [place] [id number]:Erin Tariq PA-C Subjective: * Chief Complaints: * 1 . 3m F/U - REBECCA/OHS, Asthma. * Medical History: Objective: * Vitals: Assessment: Plan: * Treatment: * * Electronic signature of Manjinder Altman DO on 03/31/2025 at 01:58 PM ESTSign off status: PendingVisit Status:?CANC (Cancelled) * Provider: Ilda Altman DO Date: 0 11/11/2024 Generated for Printing/Faxing/eTransmitting on:?03/31/2025 01:58 PM EST
--- OUTSIDE RECORDS SUMMARY | 2025-03-20 14:50 | XMS_ITS | Encounter Summary ---
Author Organization [facility] Address [address] [place] [address] Care Team Providers Care Fur Tailor Name Role Phone Jer Rioz MD Primary Care Provider [phone] Aggie Gallardo STOCK TURNER-JEWEL INSERTER Unavailable Braeden Dunham [facility] Unavailable Unavailable Aggie Gallardo STOCK TURNER-JEWEL INSERTER Unavailable Reason for Visit * ReasonCommentsDM Foot Care Encounter Details DateTypeDepartmentCare Team (Latest Contact Info)Hxrprkzvpgz87/23/2025 3:50 PM EDTOffice Visit [facility] [address] [facility] [address] [place] [id number] Tip Morillo, DPM [facility] [address] [place] [address] Xerosis cutis (Primary Dx); Diabetes 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, unspecified whether [facility] insulin use (HCC); Pain due to onychomycosis of toenails of both feet; Venous insufficiency Social History Tobacco UseTypesPacks/DayYears UsedDateSmoking Tobacco: NeverSmokeless Tobacco: Never Tobacco Cessation:Counseling Given: Yes Alcohol UseStandard Drinks/WeekCommentsNot Currently0 (1 standard drink = 0.6 oz pure alcohol)Caffeine intake: 2 cups per day coffee, [id number] Health Literacy AnswerDate RecordedHow often do you need to have someone help you when you read instructions, pamphlets, or other written material from your doctor or pharmacy? Wxrjskfqr61/08/2024Social Connection and Isolation PanelAnswerDate RecordedIn a typical week, how many times do you talk on the phone with family, friends, or neighbors?Once a week12/04/2023Frequency of Social Gatherings with Friends and FamilyNot on file12/04/2023ttends Judaism ServicesNot on file12/04/2023o you belong to any clubs or organizations such as moravian groups, unions, fraternal or athletic groups, or school groups?No12/04/2023How often do you attend meetings of the clubs or organizations you belong to?Never12/04/2023re you , , , , never , or living with a partner? 12/04/2023UDIT-CAnswerDate RecordedQ1: How often do you have a drink containing alcohol?Patient mcpzotjx34/08/2024Q2: How many drinks containing alcohol do you have on a typical day when you are drinking?Patient does not drink12/04/2023Q3: How often do you have six or more drinks on one occasion?Never12/04/2023Overall Financial Resource Strain (CARDIA)AnswerDate RecordedHow hard is it for you to pay for the very basics like food, housing, medical care, and heating?Hard 12/04/2023HQ-2AnswerDate RecordedPatient Health Questionnaire-2 Score2 12/17/2024[facility] [place] [facility] - Occupational Stress QuestionnaireAnswerDate RecordedDo you feel stress - tense, restless, nervous, or anxious, or unable to sleep at night because yourmind is troubled all the time - these days?To some zlqymd7512/04/2023Exercise Vital SignAnswerDate Recorded On average, how many days per week do you engage in moderate to strenuous exercise (like a brisk walk)?0 days12/04/2023On average, how many minutes do you engage in exercise at this level?0 min12/04/2023Hunger Vital SignAnswerDate RecordedWithin the past 12 months, you worried that your food would run out before you got the money to buymore.Sometimes true12/04/2023Within the past 12 months, the food you bought just didn't last and you didn't have money to get more.Never true12/04/2023RAPARE - TransportationAnswerDate RecordedIn the past 12 months, has lack of transportation kept you from medical appointments or from getting medications?Yes12/04/2023In the past 12 months, has lack of transportation kept you from meetings, work, or from getting things needed for daily living?No12/04/2023Housing Stability Vital SignAnswerDate RecordedIn the last 12 months, was there a time when you were not able to pay the mortgage or rent on time?No12/04/2023In the past 12 months, how many times have you moved where you were living?t any time in the past 12 months, were you homeless or living in a penitentiary (including now)?No12/04/2023EducationAnswerDate RecordedWhat is the highest level of school you have completed or the highest degree you have received?High school /17/2024CommentsUnknown Sex and Gender InformationValueDate RecordedSex Assigned at BirthFemale 12/27/2022 1:17 PM EDTLegal JtcFtywkb73/15/2023 6:56 PM EDTGender IdentityFemale 12/27/2022 1:17 PM EDTSexual OrientationNot on filedocumented as of this encounter Last Filed Vital Signs Vital SignReadingTime TakenCommentsBlood Pressure--Pulse--Temperature-- Respiratory Kubu7696 1:55 PM EDTOxygen Saturation--Inhaled Oxygen Concentration--Oqrjxc710 kg (264 lb)03/20/2025 1:55 PM KAABbajeo464.9 cm (4' 11 )03/20/2025 1:55 PM EDTBody Mass Index53.321 1:55 PM EDTdocumented in this encounter Progress Notes * Tip Morillo DPM - 03/20/2025 3:50 PM EDT Patient: Sanna Betheakassi : 1960 PCP: Jer Rizo MD SUBJECTIVE This is a 65 y.o. female that presents today with a [...] skin and fissures to feet and has been using prescribed or recommended kqeo-ihm-aneitwd cream with improvement. Pt also has history of venous stasis to b/l lower extremities Allergies: Allergies Allergen Reactions Ambien [Zolpidem] Other Terrible nightmares Cefdinir Hives Ibandronate Hives Nabumetone Other Reaction(s): PT DOESN'T REMEMBER Penicillin G Other Reaction(s): fever, hives Sulfanilamide Other Reaction(s): Fever,hives Zoloft [Sertraline] Unusual behaviors Past Medical History: Past Medical History: Diagnosis Date Abnormal finding on radiological examination of breast Acute severe exacerbation of severe persistent asthma ([facility]) 06/08/2022 Adult respiratory distress syndrome ([facility]) 2013 Allergic Allergic rhinitis due to allergen Arthritis Asthma ([facility]) Bipolar 1 disorder ([facility]) 1991 most recent episode (or current) depressed, unspecified Bronchitis Calculus of gallbladder without mention of cholecystitis or obstruction Carpal tunnel syndrome left Cataract Cholecystitis Closed fracture of ankle Congenital heart failure ([facility]) COPD (chronic obstructive pulmonary disease) ([facility]) Degeneration of lumbar or lumbosacral intervertebral disc Diabetes mellitus ([facility]) without mention of complication, type [...] bowel syndrome) Influenza with pneumonia Manic episode ([facility]) 1984 Meniere disease Morbid obesity ([facility]) Myalgia and myositis Osteoarthritis Osteoporosis Personal history of medical treatment 2013 cardiopulmonary collapse and acute respiratory failure( Respiratory failure ([facility]) Rheumatoid arthritis ([facility]) Rotator cuff tear right Skin [...] USE DIRECTED, Disp: 100 strip, Rfl: 2 Jylfjao-Rqkviejfhha-Bjtpgfnbvx (Breztri Aerosphere) 160-9-4.8 MCG/ACT aerosol, Inhale 2 puffs in the morning and 2 puffs before bedtime. Rinse mouth after each use., Disp: 10.7 g, Rfl: 5 Cariprazine HCl (Vraylar) 3 MG capsule, Take 1 capsule by mouth at bedtime, Disp: 30 capsule, Rfl: 2 Continuous Glucose Rampman (FreeStyle Gomez 3 Grady) device, 1 Device continuously, Disp: 1 each,Rfl: 0 Continuous Glucose Sensor (FreeStyle Gomez 3 Plus Sensor) mis, 1 each Every 15 Days, Disp: 6 each,Rfl: 3 [employer] Genuine Aspirin 325 MG tablet, Take 325 mg by mouth Daily, Disp: , Rfl: dapagliflozin (Farxiga) 10 MG, Take 1 tablet (10 mg) by mouth Daily, Disp: 100 tablet, Rfl: 3 DULoxetine (Cymbalta) [address] capsule, TAKE 2 CAPSULES BY MOUTH EVERYDAY AT THE SAME TIME, Disp: 200 capsule, Rfl: 3 escitalopram (Lexapro) 20 MG tablet, Take 1 tablet (20 mg) by mouth Daily, Disp: 90 tablet, Rfl: 0 fluticasone (Flonase) 50 MCG/ACT nasal spray, USE 1 SPRAY IN EACH NOSTRIL ONCE A DAY *SHAKE GENTLY/PRIME PUMP/CLEAN TIP AND REPLACE CAP*, Disp: 48 mL, Rfl: 1 furosemide (Lasix) 40 MG tablet, TAKE 1 TABLET BY MOUTH TWICE A DAY, Disp: 180 tablet, Rfl: 4 gabapentin (Neurontin) 600 MG tablet, TAKE 1 TABLET BY MOUTH TWICE A DAY AND 2 AT BEDTIME, Disp: 120 tablet, Rfl: 6 Glutose 15 40 % gel oral gel, Take 15 g by mouth if needed for low blood sugar, Disp: , Rfl: hydrOXYzine pamoate (Vistaril) 25 MG capsule, Take 1 capsule (25 mg) by mouth every 8 (eight) hoursif needed for anxiety, Disp: 30 capsule, Rfl: 2 insulin glargine (Lantus SoloStar) 100 UNIT/ML pen, INJECT 20 UNITS UNDER THE SKIN IN THE MORNING.,Disp: 20 mL, Rfl: 3 Insulin Pen Needle (pen needle 10/11 ) 31G X 8 mm misc, Inject 1 each under the skin Daily Use as instructed with Lantus SoloStar, Disp: 100 each, Rfl: 3 lamoTRIgine (LaMICtal) 200 MG tablet, Take 1 tablet (200 mg) by mouth at bedtime, Disp: 90 tablet, Rfl: 0 Lancets 30G misc, 1 each Daily Check blood glucose daily., Disp: , Rfl: levothyroxine (Synthroid, Levoxyl) 112 MCG tablet, TAKE 1 TABLET (112 MCG) BY MOUTH IN THE MORNING,Disp: 100 tablet, Rfl: 3 metoprolol tartrate (Lopressor) 25 MG tablet, TAKE 1 TABLET BY MOUTH IN THE MORNING AND BEFORE BEDTIME, Disp: 180 tablet, Rfl: 4 Multiple Vitamin (MULTIVITAMIN ADULT PO), Take 1 tablet by mouth Daily, Disp: , Rfl: OXYGEN-HELIUM IN, 3 LPM through [facility], Disp: , Rfl: potassium chloride CR (Klor-Con) 10 MEQ ER tablet, Take 1 tablet (10 mEq) by mouth Daily, Disp: 90 tablet, Rfl: 3 rosuvastatin (Crestor) 5 MG tablet, TAKE 1 TABLET BY MOUTH EVERY DAY, Disp: 100 tablet, Rfl: 3 semaglutide (Ozempic, 1 MG/DOSE,) 4 MG/3ML solution pen-injector, Inject 1 mg under the skin 1 [...] 0 min Stress: Stress Concern Present (12/04/2023) [place] of Occupational Health - Occupational Stress Questionnaire Feeling of Stress : To some extent Social Connections: Unknown (12/04/2023) Social Connection and Isolation Panel Frequency of Communication with Friends and Family: Once a week Frequency of Social Gatherings with Friends and Family: Not on file Attends Judaism Services: Not on file Active Member of Clubs or Organizations: No Attends Club or Organization Meetings: Never Marital Status: Intimate Partner Violence: Unknown (07/20/2023) Received from [facility] [place] [facility] Fear of Current [...] +1 pitting edema to bilateral ankles with greatly diminished dry and scaly skin noted to bilateral feet and ankle regions VASC: positive DP and negative PT pedal pulses NEURO: 5.07 Chichester Faye monofilament test intact to digits and [...] documented in this encounter Plan of Treatment DateTypeDepartmentCare Team (Latest Contact Info)Wnoymjmbjcl81/10/2025 1:00 PM ESTSocial Work [facility] [address] [place] [address] Braeden Dunham LPC 04/30/2025 1:00 PM ESTOffice Visit [facility] [address] [place] [phone] Aggie Gallardo APRN-JEWEL INSERTER [address] [facility] [address] [place] [address] 06/12/2025 2:30 PM ESTOffice Visit [facility] [address] [facility] [address] [place] [phone] Tip Morillo, DPYared [facility] [facility] [address] [place] [address] documented as of this encounter Goals GoalPatient Goal TypeAssociated ProblemsRecent ProgressPatient-Stated?Author Help patient manage antidepressant medication Care PlanPatient on antidepressant monitoring planFrancia Gama MAdocumented as of this encounter Visit Diagnoses Diagnosis Xerosis cutis- Primary Other specified disease of sebaceous glands Diabetes 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, unspecified whether exterminator termite insulin use (HCC) Pain due to onychomycosis of toenails of both feet Venous insufficiency Unspecified venous (peripheral) insufficiency documented in this encounter Additional Health Concerns Active ProblemsNoted DateDiagnosed DatePatient on antidepressant monitoring plan 4AssessmentNoted TimePHQ-9 Depression Total Score: 9012/17/2024 10:00 AM EDTdocumented as of this encounter Care Teams Team MemberRelationshipSpecialtyStart DateEnd Date Jer Rizo MD [address] [facility] [address] [place] [address] PCP - GeneralInternal Medicine01/03/23 Aggie Gallardo APRN-JEWEL INSERTER [address] [facility] [address] [place] [address] PCP - Sari HERNANDEZ11/26/24 Aggie Gallardo APRN-JEWEL INSERTER [address] [facility] [address] [place] [address] Nurse PractitionerPsychiatr/ Braeden Dunham LPC TherapistBehavioral Health11/25/24documented as of this encounter
--- OUTSIDE RECORDS SUMMARY | 2025-03-31 13:58 | XMS_ITS | Clinical Summary ---
Author Organization [facility] Address [address] [facility] [place] [address] Care Team Providers Care Brick Catcher Name Role Phone Unavailable Primary Care Provider Unavailabl e Source Comments The following information is NOT included in Care Everywhere downloads:Psychiatric notes, ECG results, Cardiac Rehab notes, Pulmonary Function notes, data from SmartForms (includes but not limited toPregnancy data,audiograms, eye exams, pre-surgical evaluation notes, well-child exam data).[facility] Social History Tobacco UseTypesPacks/DayYears UsedDateSmoking Tobacco: Never Assessed CommentsUnknownSex and Gender InformationValueDate RecordedSex Assigned at Not on fileLegal MpyPzhikp70/30/2022 11:37 AM EDTGender IdentityNot on file Sexual OrientationNot on file Last Filed Vital Signs Vital SignReadingTime TakenCommentsBlood Sgquwnde554/8208 11:40 AM EDT Czdkd863101/25/2022 11:40 AM EDTTemperature--Respiratory Sqlh981501/25/2022 11:40 AM EDTOxygen Nyitjqehdg95%01/25/2022 11:40 AM EDTraInhaled Oxygen Concentration-- Weight--Height--Body Mass Index-- Plan of Treatment Health MaintenanceDue DateLast BueyGdhkbnzrXwneljftblg1960HIV Test 1976Hepatitis C Xtxzmojq28/04/1979Tdap Bqlaker4003/01/1979Hepatitis A (HAV) Vaccine (optional start 19+ years)1980Pap Smear1982Mammography 2001CRC Qoujevbmr47/04/1690Gxnuvpzwmql23/04/2006Cologuard (Stool DNA) 2006FIT2006Pneumococcal Vaccine(s) (50+ yrs) (1 of 1 - PCV) 2011Shingles (RZV) Vaccine (1 of 2)2011Hepatitis B (HBV) Vaccine (optional start 60+ years)2021nnual Wellness Visit (G0438)05/29/2022 COVID-19 Vaccine (1 - 2024-26 season)2025Influenza Vaccine (#1)2025 RSV vaccine (adult) (1 - 1-dose 75+ series)2036 Insurance * Guarantor: Sanna CorralesAccojuliet TypeRelation to PatientDate of BirthPhone Billing AddressPersonal/IhqrrgRkra36 [address] [phone] * Guarantor: Rachell Corrales TypeRelation to PatientDate of BirthPhone Billing AddressPersonal/HjozsuGgex24 [address] [place] [address]
--- OUTSIDE RECORDS SUMMARY | 2025-03-31 13:59 | XMS_ITS | Patient Health Record ---
Author Organization [facility] in [place] Address [address] [place] [address] Care Team Providers Care Parts Advisor Name Role Phone Erin Tariq PA-C Primary Care Provider Unavail able Alexsandra Rooney Unavailable [phone] PacoManjinder Unavailable [phone] Allergies Allergen (clinical drug ingredient) Drug/Non Drug Allergy documented on EMR Reaction Allergy Type Onset Date Status ibandronate Boniva rash Drug Allergy ActiveOmnicefhivesDrug AllergyActiveSubstance with sulfonamide structure and antibacterial mechanism of action (substance)Sulfa AntibioticsrashDrug Allergy ActivePenicillinrashDrug AllergyActivenabumetoneRelafenrashDrug AllergyActive Reason For Referral No Information Medications Medication SIG (Take, Route, Frequency, Duration) Notes Start Date End Date Status Gabapentin 600 MG TAKE 1 TABLET BY MICHAEL TH IN THE MORNING, EVENING AND BEFORE BEDTIME Oral; Duration: 90 Days ActivetraZODone HCl 100 MGTAKE 2 TABLETS BY MOUTH AT BEDTIME Oral; Duration: 90 DaysActiveHYDROcodone-Acetaminophen 5-325 MG1 tablet as needed Orally every 6 hrsActiveVraylar 4.5 MGTAKE 1 CAPSULE BY MOUTH EVERY DAY Oral; Duration: 90 days ActiveFarxiga 10 MGTAKE 1 TABLET BY MOUTH EVERY DAY Oral; Duration: 90 Days ActiveOmeprazole 20 MG1 capsule 30 minutes before morning meal Orally Once a day ActiveFurosemide 40 MGTAKE 1 TABLET BY MOUTH TWICE A DAY Oral; Duration: 90 Days ActiveTradjenta 5 MGTAKE 1 TABLET BY MOUTH EVERY DAY FOR 100 DAYS Oral; Duration: 90 DaysActiveMetoprolol Tartrate 25 MGTAKE 1 TABLET (25 MG) BY MOUTH IN THE MORNING AND BEFORE BEDTIME Oral; Duration: 90 DaysActiveDULoxetine HCl 60 MGOral; Duration: 90 DaysActiveMucinex DM 30-600 MG1 tablet as needed Orally every 12 hrsActivebusPIRone HCl 30 MGOral; Duration: 90 DaysActiveLevothyroxine Sodium 112 MCGTAKE 1 TABLET BY MOUTH ONCE A DAY AT THE SAME TIME. Oral; Duration: 90 DaysActiveDiclofenac Sodium 75 MGTAKE 1 TABLET BY MOUTH IN THE MORNING AND 1 TABLET BEFORE BEDTIME. DO NOT CRUSH, CHEW, OR SPLIT. Oral; Duration: 90 DaysActiveBaclofen 5 MGTAKE 1 TABLET BY MOUTH THREE TIMES A DAY NEEDED Oral; Duration: 90 daysActiveLaMICtal 200 MG1 tablet Orally Q HSActive Breztri Aerosphere 160-9-4.8 MCG/ACTInhalation; Duration: 90 DaysActiveLaMICtal 25 MG1 tablet Orally Q HSActiveAlbuterol Sulfate (2.5 MG/3ML) 0.083%INHALE 1 VIAL VIA NEBULIZER EVERY 8 HOURS Inhalation; Duration: 9 DaysActivehydrOXYzine HCl 50 MG1 tablet as needed Orally Once a dayActiveAlbuterol Sulfate HFA 108 (90 Base) MCG/ACT2 puffs as needed Inhalation every 4 hrsActiveJanuvia 100 MG1 tablet Orally Once a dayActive Immunizations Vaccine Route Administration Date Status Comme nts Arexvy Unknown 04/13/2023 Administered Flu, (49227) -historic- AyuxuOywyxmm59/25/2024dministeredFlu, Flucelvax (47862) 3 yrs+, single-dose syringe (4276-0705)Unejbbj8604/13/2023dministeredPneumococcal (Pneumovax 23)Dmdccks3602/21/20179128FvjkrghjsmmjXNFV-TLG-5 (COVID 19 Pfizer 30mcg/0.3mL)Zpggisd4401/12/20217673RwuguanfknyhXslxLypsxuc75/10/2024dministered Social History Tobacco Use: Social History Observation Description Date Details (start date - stop date) Never Smoker NA - NA Tobacco Control (Standard) Question Answer Notes Tobacco use: Nonsmoker Problems Problem Type SNOMED Code ICD Code Onset Dates Problem Status W/U Status Risk Notes Problem Chronic respiratory failure (398 38417) Chronic respiratory failure with hypoxia (J96.11) ActiveconfirmedProblemChronic respiratory failure (54111391)Chronic respiratory failure with hypercapnia (J96.12)ActiveconfirmedProblemLong-term current use of inhaled steroid (273196650)alf (current) use of inhaled steroids (Z79.51) ActiveconfirmedProblemMorbid obesity (105454676)Morbid obesity (E66.01)Active confirmedProblemObstructive sleep apnea syndrome (83522201)REBECCA (obstructive sleep apnea) (G47.33)ActiveconfirmedProblemDiabetes mellitus type 2 (disorder) (07631825)DM2 (diabetes mellitus, type 2) (E11.9)ActiveconfirmedProblemExtreme obesity with alveolar hypoventilation (848522769)Obesity hypoventilation syndrome (E66.2)ActiveconfirmedProblemSecondary pulmonary hypertension (36806666)Other secondary pulmonary hypertension (I27.29)ActiveconfirmedProblem Eosinophilic asthma (975388070)Eosinophilic asthma (J82.83)Activeconfirmed ProblemBody mass index 40+ - morbidly obese (920959349)Body mass index [BMI] 50.0-59.9, adult (Z68.43)Activeconfirmed Vital Signs Heart Rate 67 /min 08/06/2024 [...] Encounter Location Date Provider Diagnosis Pulmonary [facility] [place] [address] [place] [address] 08/06/2024 [facility] REBECCA (obstructive sle ep apnea) G47.33 ; Obesity hypoventilation syndrome E66.2 ; Eosinophilic asthma J82.83 ; Chronic respiratory failure with hypoxia J96.11 ; Chronic respiratory failure with hypercapnia J96.12 ; Other secondary pulmonary hypertension I27.29 ; DM2 (diabetes mellitus, type 2) E11.9 ; Morbid obesity E66.01 ; 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 [address] 06/27/2024 [facility] Pulmonary [facility] [address] [place] [address]/03/2025 [facility] [address] [place] [facility] [place] [address] 08/06/2024[facility] [address] [place] [address]/[facility] [address] [place] [place] [address]/11/2024[facility] [address] [place] [address]/[facility] [place] [address] [place] [place] [address]/04/2025[facility] [address] [place] [place] [address]/[facility] Assessments Encounter Date Diagnosis (ICD Code) Assessment Notes Treatment Notes Treatment Clinical Notes Section Notes 08/06/2024 REBECCA (obstructive sleep apnea) (I CD-10 - G47.33) Ejwk-pm-hnaz encounter performed with the patient to document [...] have no evidence that the patient is usingPAP. Reviewed the sleep studies. Had long discussion regarding the need for compliance with PAP therapy. She continues to retain CO2 based on ABG last year, and was worse compared to the year prior. Long-term untreated REBECCA/OHS can increase morbidity and even mortality. She needs to make a concertedeffort to use the PAP - explained that Medicare looks at the compliance data and is generally not concerned why patient is not compliant. She is at risk of having the machine taken from her due to noncompliance. Addressed with the patient that if she believes there is something wrong with the PAP, s he should contact the DME, not wait until she is able to come to her visit to have it addressed (asI am unable to service these devices). Will have the patient return in 3 months to readdress titration. If she has not made a concerted effort to use the PAP, I will have her return it to the DME. Patient was reminded to continue to wear the PAP @ bedtime and with any naps. -Note: This hyzh-vq-ffas visit comes with my authorization that the patient's DME may request to renew, reorder, and/or replace tubing, supplies, mask, and/or PAP device (if applicable). 08/06/2024Obesity hypoventilation syndrome (ICD-10 - E66.2) Patient has underlying hypercapnic respiratory failure secondary to OHS. It is uncompensated as sheis not using her PAP. The REBECCA/OHS is difficult to treat as she develops complex sleep apneas with traditional PAP therapy; she requires auto SV titration. If she continues not to use any therapy, there is a risk of significant morbidity and even mortality. 08/06/2024Eosinophilic asthma (ICD-10 - J82.83) Prior treatment: Breztri [...] she has issues with compliance and follow-up. 5Chronic respiratory failure with hypoxia (ICD-10 - J96.11) Wjmz-bv-cyyp encounter performed with the patient to document continued need for supplemental oxygen (O2). -Flow & directions: 3L/min O2 ATC -SpO2 on arrival was 70% on 3L/min today-Patient voices adherence to recommended usage: Yes-Symptomcontrol on O2: Less shortness of breath-Counseled patient not begin, restart, or continue smoking, around the O2 due to risk of fire which could result in damage to the O2 tanks & lines, smoke inhalation and flame damage to the airway, significant shell, potential , property damage, and potential harm & to bystanders. Additionally, counseled it is not pak to begin, restart, orcontinue smoking given the underlying pulmonary disease that led to the point of requiring O2.-Recommendations: She continues to have issues with ambulatory desaturations. Her oxygenation needs to bereassessed. 6-minute walk is have been ordered to identify what increase in O2 flow is necessary to maintain her saturations. Goal SpO2 is 88-92% to avoid hypoxic induced hypercapnia. 5Chronic respiratory failure with hypercapnia (ICD-10 - J96.12) ABG: -06/27/2023: pH 7.325, pCO2 71.6 -06/06/2022: pH 7.347, pCO2 63.7 Secondary to uncompensated REBECCA/OHS. Once again, cannot stress enough the importance of the patient to start her PAP therapy. 08/06/2024Other secondary pulmonary hypertension (ICD-10 - I27.29) As before: Echocardiogram 06/07/2022 noted RVSP 41mmHg. Most likely group 3 (hypoxic). Treatment is treating the underlying condition. If above testing non- diagnostic, may repeat echocardiogram to seeif there is further increase in RVSP to indicate the need for a right +/- left heart catheterization; mild disease noted in LAD prior cardiac catheterization 04/15/2015. 08/06/2024DM2 (diabetes mellitus, type 2) (ICD-10 - E11.9) Steroids prescribed for this patient's underlying pulmonary disease can adversely affect blood glucose levels, inducing hyperglycemia and worsening underlying diabetes. The patient is encouraged to follow up with the primary care provider to create a plan to manage diabetes in this situation. 08/06/2024Morbid obesity (ICD-10 - E66.01) Patient remains morbidly obese. She has gained 6 lbs since her last visit. This is inducing the restrictive pulmonary physiology. Weight loss would have a tremendous benefit in her health, especiallywith REBECCA/OHS on top of asthma. 08/06/2024Long term (current) use of inhaled steroids (ICD-10 - Z79.51) Patient was counseled to rinse & gargle with water after inhaled corticosteroid use. 08/06/2024ody mass index [BMI] 50.0-59.9, adult (ICD-10 - Z68.43)08/06/2024 Other This patient has a long-term history of noncompliance with follow-up and medical recommendations. Istressed numerous times the importance of her using [...] Date [employer] MEDICARE ADV PLAN [address] A NNEKA MCGINNIS [phone] [id number] Gibran Corrales - patient is the insuredMEDICAID [address] 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
--- OUTSIDE RECORDS SUMMARY | 2025-03-31 13:59 | XMS_ITS | Clinical Summary ---
Author Organization [facility] Address [address] [place] [address], [address] [place] [address] Care Team Providers Care Process Improvement Analyst Name Role Phone Unavailable Primary Care Provider Unavailabl e Social History Tobacco UseTypesPacks/DayYears UsedDateSmoking Tobacco: Never Assessed CommentsUnknownSex and Gender InformationValueDate RecordedSex Assigned at Not on fileLegal JegJspclu49/30/2013 8:01 PM ESTGender IdentityNot on fileSexual OrientationNot on file Plan of Treatment Not on file
--- OUTSIDE RECORDS SUMMARY | 2025-03-31 13:59 | XMS_ITS | Clinical Summary ---
Author Organization [facility] Address [address] [place] [address] Care Team Providers Care Appliance Parts Counter Clerk Name Role Phone Unavailable Primary Care Provider Unavailabl e Social History Tobacco UseTypesPacks/DayYears UsedDateSmoking Tobacco: Never AssessedUT Safety & EnvironmentAnswerDate RecordedFear of Current or Ex-PartnerNot on file 07/20/2023Emotionally AbusedNot on file07/20/2023hysically AbusedNot on file 07/20/2023Sexually AbusedNot on file4Physically or Sexually AbusedNot on file07/20/2023CommentsUnknownSex and Gender InformationValueDate RecordedSex Assigned at BirthNot on fileLegal ScyTiuaqf82/29/2022 10:45 PM EDT Gender IdentityNot on fileSexual OrientationNot on file Plan of Treatment Health MaintenanceDue DateLast DoneCommentsCT Ezylwtbeguap1961olonoscopy 1961olorectal Cancer Pcmrngjpt1961iabetes: Hemoglobin A1C 1961FIT-DNA1961FIT1961FOBT1961Medicare Annual Wellness (AWV)1961 0019Faezxtgmkiacn1961iabetes: Retinopathy Xajtprdhq05/04/1971 Depression Kswaoisju04/04/1973Diabetes: Urine Protein Dbrnkdmjj39/04/1980Pap Smear1982Adult Jbpbsti5303/01/1983Cervical Cancer Hfaxnevwk67/04/1991 HPV/Bepzqk2303/01/1991Zoster Vaccines (1 of 2)2011COVID-19 Vaccine ( season)5006/14/2022, 01/12/2021Influenza Vaccine (#1)2025 04/13/2023, 03/31/2022, 03/29/2022, Additional history ammpdiApvrkhcil09/20/2025 3Pneumococcal Vaccine: Pediatrics (0 to 5 Years) and At-Risk Patients (6 to 64 Years)Xttaqeugk21/16/2023, 02/21/2017HIB VaccinesAged OutNo longer eligible based on patient's age to complete this topicHPV VaccinesAged OutNo longer eligible based on patient's age to complete this topicIPV VaccinesAged OutNo longer eligible based on patient's age to complete this topicMeningococcal B VaccineAged OutNo longer eligible based on patient's age to complete this topicMeningococcal VaccineAged OutNo longer eligible based on patient's age to complete this topicRotavirus VaccinesAged OutNo longer eligible based on patient's age to complete this topic Insurance
--- OUTSIDE RECORDS SUMMARY | 2025-03-31 13:59 | XMS_ITS | Clinical Summary ---
Author Organization [employer] [facility] Address [id number] [address] 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 Phone Jer Rizo MD Primary Care Provider [phone] Allergies Active AllergyReactionsCriticalityNoted FpfpEjbhmjbaBdxteezxotrPejhr94/28/2020 XlqobgijPkirw54/07/4305Cqpwvcftqp32/07/2023 Other Reaction(s): PT DOESN'T REMEMBER IbwqkalvzlcCtygclgnhe00/28/8045Ipcpxidyqf52/17/2024 Unusual behaviors Sulfa (Sulfonamide Antibiotics)Jxigbpnmmd02/28/2020 Shortness of breath as well Wyarmcymnzscy59/07/2023 Other Reaction(s): Fever,hives ZolpidemOther (See Comments)03/14/2024 Terrible nightmares Medications MedicationSigDispense QuantityRefillsLast FilledStart DateEnd DateStatus levothyroxine (SYNTHROID, LEVOTHROID) 100 MCG tablet Take 112 mcg by mouth in the morning.Active lamoTRIgine (LaMICtal) 25 mg tablet Take 10 tablets (250 mg total) by mouth nightly.Active potassium chloride (KLOR-CON SPRINKLE) 10 MEQ CR capsule Take by mouth in the morning.Active metoprolol succinate XL (TOPROL-XL) 25 mg 24 hr tablet Take 1 tablet (25 mg total) by mouth in the morning.Active furosemide (LASIX) 40 mg tablet Take 1 tablet (40 mg total) by mouth 2 (two) times a day.Active gabapentin (NEURONTIN) 300 mg capsule Take 1 capsule (300 mg total) by mouth nightly.Active cariprazine (VRAYLAR) 6 mg capsule Take 6 mg by mouth in the morning.Active diclofenac (VOLTAREN) 75 mg EC tablet Take 1 tablet (75 mg total) by mouth in the morning and 1 tablet (75 mg total) before bedtime.Active trazodone HCl (TRAZODONE ORAL) Take 50 mg by mouth nightly.Active albuterol (PROVENTIL HFA;VENTOLIN HFA) 90 mcg/actuation inhaler Inhale 2 puffs every 6 (six) hours as needed for wheezing.Active dapagliflozin propanediol (FARXIGA ORAL) Take 10 mg by mouth in the morning.Active BACLOFEN ORAL Take 5 mg by mouth in the morning and 5 mg before bedtime.Active semaglutide (OZEMPIC SUBQ) Inject 2.5 mg under the skin once a week. MondayActive insulin glargine (LANTUS) 100 unit/mL injection Inject 0.2 mL (20 Units total) under the skin in the morning.Active traMADoL (ULTRAM) 50 mg tablet Take 1 tablet (50 mg total) by mouth every 6 (six) hours as needed for pain. Active BREZTRI AEROSPHERE 160-9-4.8 mcg/actuation HFA aerosol inhaler INHALE 2 PUFFS IN MORNING AND BEFORE BEDTIME*RINSE MOUTH AFTER EACH USE*Active Bacillus coagulans-inulin 1 billion-250 cell-mg capsule Take 1 capsule by mouth.03/27/2024ctive aspirin 325 mg tablet Take 1 tablet (325 mg total) by mouth in the morning.Active fluticasone propionate (FLONASE) 50 mcg/actuation nasal spray USE 1 SPRAY IN EACH NOSTRIL ONCE A DAY *SHAKE GENTLY/PRIME PUMP/CLEAN TIP AND REPLACE CAP*Active hydrOXYzine (VISTARIL) 25 mg capsule Take 1 capsule (25 mg total) by mouth every 8 (eight) hours as needed.09/12/2024 Active dextrose (GLUTOSE-15) 40 % gel Take 37.5 mL (15 g total) by mouth.5Active rosuvastatin (CRESTOR) 5 mg tablet Take 1 tablet (5 mg total) by mouth.Active busPIRone (BUSPAR) 15 mg tablet Take 1 tablet (15 mg total) by mouth in the morning and 1 tablet (15 mg total) before bedtime.03/07/2025Discontinued(Therapy completed) DULoxetine (CYMBALTA) 60 mg capsule Take 90 mg by mouth in the morning.03/04/2025Discontinued(Therapy completed) omeprazole-sodium bicarbonate (ZEGERID) 40-1.1 mg-gram per capsule Take 1 capsule by mouth every morning before breakfast.03/04/2025Discontinued (Therapy completed) exenatide microspheres (BYDUREON SUBQ) Inject under the skin.03/04/2025Discontinued(Therapy completed) tiZANidine (ZANAFLEX) 4 mg tablet Take 1 tablet (4 mg total) by mouth every 6 (six) hours as needed for muscle spasms. Naiudtl7103/04/2025Discontinued(Therapy completed) HYDROcodone-acetaminophen (NORCO) 5-325 mg per tablet Discontinued(Therapy completed) docusate sodium (COLACE) 100 mg capsule Take 1 capsule (100 mg total) by mouth in the morning and 1 capsule (100 mg total) before bedtime.03/04/2025Discontinued(Therapy completed) polyethylene glycol (GLYCOLAX) 17 gram packet Take 17 g by mouth daily as needed.03/04/2025Discontinued(Therapy completed) nystatin (MYCOSTATIN) powder Apply 1 Application topically in the morning and 1 Application before bedtime. 03/04/2025Discontinued(Therapy completed) linaGLIPtin (TRADJENTA) 5 mg tablet Take 1 tablet (5 mg total) by mouth in the morning.03/04/2025Discontinued (Therapy completed) albuterol sulfate (VENTOLIN HFA INHL) Inhale.03/04/2025Discontinued(Duplicate Listing) sod sulf-pot chloride-mag sulf 1.479-0.188- 0.225 gram tablet Indications:Diarrhea, unspecified type,Abdominal crampingPlease see instructional sheet given by physicians office. 24 tablet /02/2025Discontinued(Therapy completed) escitalopram (LEXAPRO) 20 mg tablet Take 1 tablet (20 mg total) by mouth in the morning.Expired Active Problems No known active problems Encounters DateTypeDepartmentCare XlywSdxnsjhbott53/10/2025 9:12 AM EDTAnesthesia Event [facility] [address] [place] [address] Dane Aleman MD 03/07/2025 9:00 AM EDT - 03/07/2025 9:30 AM EDTSurgery [facility] [address] [place] [address] Ashley Vyas MD COLONOSCOPY DIAGNOSTIC / SCREENING [07804 (CPT??)]03/07/2025 6:57 AM EDT - 03/07/2025 10:06 AM EDTHospital Encounter [facility] [address] [place] [address] Ashley Vyas MD Discharge Disposition: Home03/07/20253865Tavemh82/07/2025 1:30 PM EDTProcedure visit [facility] - Pre Admit [address] [place] [address] 03/04/20256605Xaerib21/23/2025 1:00 PM EDTOffice Visit [facility] [address] [place] [address] Amy Estrella APRN-THANH Diarrhea, unspecified type (Primary Dx); Abdominal cramping; History of colon qudxek3502/18/2025Travelfrom Last 3 Months Family History Medical HistoryRelationNameCommentsCancerFatherColon cancerFatherLung cancer FatherColon cancerMaternal GrandmotherBowel dysfunctionMotherCrohn's disease MotherRelationNameStatusCommentsFatherDeceasedMaternal GrandmotherDeceasedMother Social History Tobacco UseTypesPacks/DayYears UsedDateSmoking Tobacco: NeverSmokeless Tobacco: Never Tobacco Cessation:Counseling Given: Not Answered Comments:Exposed to smoking all of her life Alcohol UseStandard Drinks/WeekCommentsNot Currently0 (1 standard drink = 0.6 oz pure alcohol)very rare at the holidaysAUDIT-CAnswerDate RecordedQ1: How often do you have a drink containing alcohol?Never01/24/2020Average Number of DrinksNot on file01/24/2020Frequency of Binge DrinkingNot on file01/24/2020ChildcareAnswer Date CdocazapYnsrzzyxnDkqbdvr98/12/2019EmploymentAnswerDate RecordedEmployment Kctxakt4911/07/2018Purpose - LifeAnswerDate RecordedPurpose and direction in life Aivqkgr66/11/2021CommentsNoSex and Gender InformationValueDate Recorded Sex Assigned at BirthNot on fileLegal CifBubsss05/06/2015 12:01 PM EDTGender IdentityNot on fileSexual OrientationNot on file Last Filed Vital Signs Vital SignReadingTime TakenCommentsBlood Qzrghjbb883/8403/07/2025 9:47 AM EDT Dsoam994503/07/2025 9:47 AM TMJKkeziygmxta53.2 ??C (97.2 ??F)03/07/2025 9:35 AM EDTRespiratory Igwt2103 9:47 AM EDTOxygen Dptstpuuqo13%03/07/2025 9:47 AM EDTInhaled Oxygen Concentration--Obovuq042.6 kg (257 lb)03/07/2025 7:20 AM LOVCrjmeh651.9 cm (4' 11 )03/07/2025 7:20 AM EDTBody Mass Index51.9103/07/2025 7:20 AM EDT Plan of Treatment Health MaintenanceDue DateLast DoneCommentsDepression Gxbvwpvim89/04/1973Adult BMI Follow Up Plan1979Pap Smear1982Zoster (Shingles) Vaccine (1 of 2)2011COVID-19 Vaccine ( season)508/, 10/30/2020, 10/02/2020Influenza Hhiaxgp37/01/709432/, 04/13/2023, 03/31/2022, Additional history existsAdult BMI Dypulkmtp18 Tobacco Yuleyxbso38DTaP,Tdap and Td Vaccines (2 - Td or Tdap) 407/6420Cliragkmfmj55/10/994351, 03/07/2025RSV ( or age 60+ yrs)Cwnmhwvhd59/16/2023 Medical Devices Not on file Procedures Procedure NamePriorityDate/TimeAssociated DiagnosisCommentsPR COLONOSCOPY FLX DX W/COLLJ SPEC WHEN PFRMD1 9:12 AM EDT diarrhea DJVODRCTCMH83/10/2025 8:58 AM EDT PROVATION WQMOPCALGLRVsckymq44/10/2025 8:05 AM EDT from Last 3 Months Results * Colonoscopy (03/07/2025 8:58 AM EDT)Specimen (Source)Anatomical Location / LateralityCollection Method / VolumeCollection TimeReceived Time03/07/2025 8:58 AM EDT Narrative PM CARDIOVASCULAR - 03/07/2025 9:31 AM EDT [facility] Patient Name: Sanna Corrales ?? Procedure Date No Time: 03/07/2025 ?? CSN : [id number] Date of : 1960 Admit Type: Outpatient Age: 65 Room: [place] [address] Gender: Female Note Status: Finalized Attending MD: Ashley Vyas , , Procedure: ? Colonoscopy Indications: ? Diarrhea Providers: ? Ashley Vyas Referring MD: ?Ashley Vyas Medicines: ? Monitored Anesthesia Care Complications: ? No immediate complications. Procedure: ? After I obtained informed consent, the scope was ? passed under direct vision. Throughout the procedure, ? the patient's blood pressure, pulse, and oxygen ? saturations were monitored continuously. The [facility] ? [id number] #[id number] ADULT COLONOSCOPE was introduced ? through the anus and advanced to the cecum, identified ? by appendiceal orifice and ileocecal valve. The ? colonoscopy was performed without difficulty. The ? patient tolerated the procedure well. The quality of ? the bowel preparation was good. The ileocecal valve, ? appendiceal orifice, and rectum were photographed. Findings: ? The entire examined colon appeared normal. Estimated Blood Loss: ??Estimated blood loss: none. Impression: ?- The entire examined colon is normal. ? - No specimens collected. Recommendation: ?- Repeat colonoscopy in 10 years for screening ? purposes. Procedure Code(s): ? --- Professional --- ? 04689, Colonoscopy, flexible; diagnostic, including ? collection of specimen(s) by brushing or washing, when ? performed (separate procedure) Diagnosis Code(s): ? --- Professional --- ? R19.7, Diarrhea, unspecified CPT copyright 2022 [employer]. All rights reserved. The codes documented in this report are preliminary and upon deli cook review may be revised to meet current compliance requirements. MD Ashley Rai, 03/07/2025 9:30:24 AM This report has been signed electronically.Ashley Vyas Number of Addenda: 0 Note Initiated On: 03/07/2025 8:58 AM Procedure Note Ashley Vyas MD - 03/07/2025 [facility] Patient Name: Sanna Corrales Procedure Date No Time: 03/07/2025 CSN : [id number] Date of : 1960 Admit Type: Outpatient Age: 65 Room: [place] [address] Gender: Female Note Status: Finalized Attending MD: Ashley Vyas , , Procedure: Colonoscopy Indications: Diarrhea Providers: Ashley Vyas Referring MD: Ashley Vyas Medicines: Monitored Anesthesia Care Complications: No immediate complications. Procedure: After I obtained informed consent, the scope was passed under direct vision. Throughout theprocedure, the patient's blood pressure, pulse, and oxygen saturations were monitored continuously. [facility] Pharm[facility] CF-[id number] #[id number] ADULT COLONOSCOPE was introduced through the anus [...] screening purposes. Procedure Code(s): --- Professional --- 35452, Colonoscopy, flexible; diagnostic, including collection of specimen(s) by brushing or washing,when performed (separate procedure) Diagnosis Code(s): --- Professional --- R19.7, Diarrhea, unspecified CPT copyright 2022 [employer]. All rights reserved. The codes documented in this report are preliminary and upon deli cook reviewmay be revised to meet current compliance requirements. MD Ashley Rai, 03/07/2025 9:30:24 AM This report has been signed electronically.Ashley Vyas Number of Addenda: 0 Note Initiated On: 03/07/2025 8:58 AM Authorizing ProviderResult TypeResult StatusAshely Vyas MDGI PROCEDURE ORDERABLESFinal ResultPerforming OrganizationAddressCity/State/ZIP CodePhone Number PM CARDIOVASCULAR * Colonoscopy Report (03/07/2025 8:05 AM EDT)Specimen (Source)Anatomical Location / LateralityCollection Method / VolumeCollection TimeReceived Time Narrative SYSTEMGENERATED, DOCUMENTATION - 03/07/2025 8:05 AM EDT This order has been auto-finalized for image and report archival in PACs. *For full report details, please reach out to your physician. ??This image is visible to you in MyChart.* Authorizing ProviderResult TypeResult StatusAshley Vyas MDIMG OR IMG ORDERABLESFinal Result from Last 3 Months Insurance Care Teams Team MemberRelationshipSpecialtyStart DateEnd Jer Rizo MD [address] [facility], [facility] [address] [place] [phone] PCP - GeneralInternal Medicine01/24/20
--- OUTSIDE RECORDS SUMMARY | 2025-03-31 13:59 | XMS_ITS | Patient Health Record ---
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
--- OUTSIDE RECORDS SUMMARY | 2025-03-31 13:59 | XMS_ITS | Clinical Summary ---
Author Organization [facility] Address [address] [facility] [place] [address] Care Team Providers Care Food Beverage Server Name Role Phone Jer Rizo MD Primary Care Provider [phone] Aggie Gallardo SKOOG OPERATOR-LIFE SCIENCE TECHNICAL OFFICER Unavailable Braeden Dunham MISSILE TRACKING TECHNICIAN Unavailable Unavailable Aggie Gallardo SKOOG OPERATOR-LIFE SCIENCE TECHNICAL OFFICER Unavailable Allergies Active AllergyReactionsCriticalityNoted EkixNnbbumbnUgdpxgnjHncsc88/17/2024 Terrible nightmares CvdvpfipHyvof87/07/0657HkyxxqifnoyKqadj15/07/0946Lhweanlxhp52/07/2023 Other Reaction(s): PT DOESN'T REMEMBER Penicillin G001/02/2023 Other Reaction(s): fever, hives Ilxdelmwpbvjf14/07/2023 Other Reaction(s): Fever,hives Qjxrgayyyn77/17/2024 Unusual behaviors Medications MedicationSigDispense QuantityRefillsLast FilledStart DateEnd DateStatus OXYGEN-HELIUM IN 3 LPM through APRIA01/21/2022ctive albuterol (2.5 MG/3ML) 0.083% nebulizer solution Indications:Severe persistent asthma without complication (HCC)Take 3 mL (2.5 mg) by nebulization every 8 (eight) hours. 75 mL ctive Blood Glucose Monitoring Suppl device Indications:Type 2 diabetes mellitus with other specified complication, without long-term current use of insulin (HCC)USE DIRECTED 100 strip ctive triamcinolone (Kenalog) 0.5 % cream Indications:Venous insufficiency (chronic) (peripheral)APPLY 1 APPLICATION EXTERNALLY ONCE A DAY NEEDED 7 DAY(S) 30 g 3Active albuterol HFA (Ventolin HFA) 90 mcg/act inhaler Indications:Severe persistent asthma without complication (HCC)Inhale 2 puffs every 4 (four) hours if needed for wheezing or shortness of breath 18 g 504Active traMADol (Ultram) 50 MG tablet Take 1 tablet by mouth as needed in the morning and 1 tablet as needed at noon and 1 tablet as needed in the evening for moderate pain.03/25/2024ctive Bacillus Coagulans-Inulin (Probiotic Formula) 1-250 BILLION-MG capsule Indications:Chronic diarrheaTake 1 capsule by mouth at noon and 1 capsule in the evening. 60 capsule 4Active hydrOXYzine pamoate (Vistaril) 25 MG capsule Indications:JENN (generalized anxiety disorder)Take 1 capsule (25 mg) by mouth every 8 (eight) hours if needed for anxiety 30 capsule 5Active fluticasone (Flonase) 50 MCG/ACT nasal spray Indications:Chronic sinusitis, unspecified locationUSE 1 SPRAY IN EACH NOSTRIL ONCE A DAY *SHAKE GENTLY/PRIME PUMP/CLEAN TIP AND REPLACE CAP* 48 mL 5Active [facility]S Genuine Aspirin 325 MG tablet Take 325 mg by mouth Daily5Active Glutose 15 40 % gel oral gel Take 15 g by mouth if needed for low blood sugar5Active Multiple Vitamin (MULTIVITAMIN ADULT PO) Take 1 tablet by mouth DailyActive Continuous Glucose Sensor (FreeStyle Gomez 3 Plus Sensor) [facility] Indications:Type 2 diabetes mellitus with other specified complication, with long-term current use of insulin (HCC)1 each Every 15 Days 6 each 306//6Active Continuous Glucose Chronograph Operator (FreeStyle Gomez 3 [place]) device Indications:Type 2 diabetes mellitus with other specified complication, with long-term current use of insulin (HCC)1 Device continuously 1 each 5Active furosemide (Lasix) 40 MG tablet Indications:Localized edemaTAKE 1 TABLET BY MOUTH TWICE A DAY 180 tablet 5Active metoprolol tartrate (Lopressor) 25 MG tablet Indications:Essential hypertension, benignTAKE 1 TABLET BY MOUTH IN THE MORNING AND BEFORE BEDTIME 180 tablet 5Active levothyroxine (Synthroid, Levoxyl) 112 MCG tablet Indications:Hypothyroidism, unspecified typeTAKE 1 TABLET (112 MCG) BY MOUTH IN THE MORNING 100 tablet 5Active rosuvastatin (Crestor) 5 MG tablet Indications:HypokalemiaTAKE 1 TABLET BY MOUTH EVERY DAY 100 tablet 5Active Additional Information Patient taking differently:5 mg Oral Daily,(No times of day reported), Reported on 03/13/2025 Insulin Pen Needle (pen needle 10/11 ) 31G X 8 mm [facility] Indications:Type 2 diabetes mellitus with other specified complication, without long-term current use of insulin (HCC)Inject 1 each under the skin Daily Use as instructed with Lantus SoloStar 100 each 5Active Additional Information Patient taking differently:1 each Subcutaneous Daily,(No times of day reported), Use as instructed with Lantus SoloStar, Reported on 03/13/2025 Lancets 30G [facility] Indications:Type 2 diabetes mellitus with other specified complication, without long-term current use of insulin (HCC)1 each Daily Check blood glucose daily. 5Active Additional Information Patient taking differently:1 each Does not apply Daily,(No times of day reported), Check blood glucose daily., Reported on 03/13/2025 potassium chloride CR (Klor-Con) 10 MEQ ER tablet Indications:Primary hypertensionTake 1 tablet (10 mEq) by mouth Daily 90 tablet 5Active Additional Information Patient taking differently:10 mEq Oral Daily,(No times of day reported), Reported on 03/13/2025 semaglutide (Ozempic, 1 MG/DOSE,) 4 MG/3ML solution pen-injector Indications:Type 2 diabetes mellitus with other specified complication, without long-term current use of insulin (HCC)Inject 1 mg under the skin 1 (one) time per week5Active Cwzxktw-Ksllrsvlbct-Ggswcrvziw (Breztri Aerosphere) 160-9-4.8 MCG/ACT aerosol Indications:Chronic obstructive pulmonary disease, unspecified COPD type (HCC) Inhale 2 puffs in the morning and 2 puffs before bedtime. Rinse mouth after each use. 10.7 g 505Active baclofen (Lioresal) 10 MG tablet Indications:Cervical spondylosisTAKE 1 TABLET BY MOUTH THREE TIMES A DAY NEEDED 270 tablet 5Active Cariprazine HCl (Vraylar) 3 MG capsule Indications:Mixed bipolar affective disorder, moderate (HCC)Take 1 capsule by mouth at bedtime 30 capsule /5Active gabapentin (Neurontin) 600 MG tablet Indications:Type 2 diabetes mellitus with autonomic neuropathy, unspecified whether long lines operator insulin use (HCC)TAKE 1 TABLET BY MOUTH TWICE A DAY AND 2 AT BEDTIME 120 tablet 605Active dapagliflozin (Farxiga) 10 MG Indications: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)neuropathy (HCC)Take 1 tablet (10 mg) by mouth Daily 100 tablet 5Active Additional Information Patient taking differently:10 mg Oral Daily,(No times of day reported), Reported on 03/13/2025 insulin glargine (Lantus SoloStar) 100 UNIT/ML pen Indications:Type 2 diabetes mellitus with other specified complication, without long-term current use of insulin (HCC)INJECT 20 UNITS UNDER THE SKIN IN THE MORNING. 20 mL 5Active escitalopram (Lexapro) 20 MG tablet Indications:Bipolar affective disorder, currently depressed, moderate (HCC)Take 1 tablet (20 mg) by mouth Daily 90 tablet /6Active lamoTRIgine (LaMICtal) 200 MG tablet Indications:Bipolar affective disorder, currently depressed, moderate (HCC)Take 1 tablet (200 mg) by mouth at bedtime 90 tablet 6Active traZODone (Desyrel) 100 MG tablet Indications:Insomnia, unspecified typeTAKE 2 TABLETS BY MOUTH AT BEDTIME 180 tablet 5Active traZODone (Desyrel) 100 MG tablet Indications:Bipolar affective disorder, currently depressed, moderate (HCC)Take 1.5 tablets (150 mg) by mouth at drdkyve47/28/Discontinued insulin glargine (Lantus SoloStar) 100 UNIT/ML pen Indications:Type 2 diabetes mellitus with other specified complication, without long-term current use of insulin (HCC)Inject 20 Units under the skin in the morning. 9 mL Discontinued escitalopram (Lexapro) 20 MG tablet Indications:Bipolar affective disorder, currently depressed, moderate (HCC)Take 1 tablet (20 mg) by mouth Daily 90 tablet Discontinued(Reorder) DULoxetine (Cymbalta) [address] capsule Indications:Bipolar affective disorder, currently depressed, moderate (HCC)TAKE 2 CAPSULES BY MOUTH EVERYDAY AT THE SAME TIME 200 capsule Discontinued(Therapy completed) lamoTRIgine (LaMICtal) 200 MG tablet Indications:Bipolar affective disorder, currently depressed, moderate (HCC)Take 1 tablet (200 mg) by mouth at bedtime 90 tablet Discontinued(Reorder) traZODone (Desyrel) 100 MG tablet Indications:Insomnia, unspecified typePatient may take 1-2 tabs at hs prn insomnia 60 tablet 110Discontinued Active Problems ProblemNoted DateDiagnosed DateChronic diastolic heart osmggle5811/14/2024 Pulmonary xcxutmzsunbp83/19/2025Unstable jddmqg6011/14/20246956Uvzdrtgxzqmf84/09/2024 Morbid (severe) obesity due to excess cdajihlv18/10/2024ody mass index (BMI) 50.0-59.9, adult12/06/2023hronic respiratory failure with koafeel8312/06/2023 Abdominal aortic jmksaeh2912/06/20232074Uonzzqhlrlzuq46/09/4234Fwswamouwms24/09/[address] scan01/02/2023denomatous polyp of colon01/02/2023llergic rhinitis, bcwtegqueqk25/07/2023typical ffrypdxi39/07/2023utonomic neuropathy due to type 2 diabetes durgleqc16/07/2023ilateral primary osteoarthritis of knee01/02/2023 Bipolar affective disorder, currently depressed, ymbbuxjf13/07/2023 Chondromalacia of patella, left01/02/2023hronic supisrxh59/07/2023hronic obstructive pulmonary bupuwey8001/02/20239719Bdvdorsqxegz99/07/2023hronic sinusitis 01/02/20235545Ahkiglebqwqb93/07/2023issection of aorta01/02/20232585Dvukmodwd23/07/2023 Extreme obesity with alveolar ubbcmujzwxhpcoj76/07/2023therosclerotic heart disease of [place] coronary artery without angina eobcdwyh16/07/2023Mixed bipolar affective disorder, kjtrokfi33/07/8833Wbhakvo28/07/2023Nonalcoholic steatohepatitis (IVAN)01/02/2023Obstructive sleep apnea /07/2023Oxygen xvsywapaa51/07/2023ersistent xonbwhsdgs91/07/2023rimary yivsnoddtorq97/07/2023 Refractory obstruction of nasal fahsfi3801/02/2023Rheumatoid kdocuzxis96/07/2023 Severe persistent jdukur0701/02/2023ervical wwuyjxswnkb66/07/2023Stasis dermatitis of both legs01/02/2023Type 2 diabetes mellitus with other specified jrcekqrajbzn63/07/1714Kulocuwxmaouqt94/28/2023Lumbar pain11/23/2022Lumbar /28/2023AD (generalized anxiety disorder)06/08/2022iaphragmatic hernia without obstruction or wyjxdnqe54/11/2023History of cudsdcn7806/08/2022 Limitation of activities due to lqikxzmnrj99/11/2023Muscle weakness (generalized)06/08/2022Spinal stenosis, site slbzewgghgf14/11/2023bnormality of gait due to impairment of xsjuxgq4006/08/2022epressive mqyijitc19/11/2023 Disability affecting daily bggaje1506/08/2022Hip pain06/08/2022Nontraumatic rotator cuff tear06/08/20228575Xewuhklardcn08/11/2023Shoulder joint pain06/08/2022 History of psychiatric reehgfro99/07/2020Hyperglycemia due to type 2 diabetes oklvckdw91/08/2018 Resolved Problems ProblemNoted DateDiagnosed DateResolved DateAge-related nuclear cataract of both eyes/cute on chronic respiratory uqcnalx79/07/824086/ Altered mental uruaty06/ipolar hymheccz44 Arthritis of right kneeModerate persistent asthma without cepikjnwbdxs41cute severe exacerbation of severe persistent mxfnca74Fall Encounters DateTypeDepartmentCare HhhlOpqfnniqdpa67/23/2025 3:50 PM EDTOffice Visit [facility] [address] [facility] [address] [place] [phone] Tip Morillo DPM Xerosis cutis (Primary Dx); Diabetes 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, unspecified whether long lines operator insulin use (HCC); Pain due to onychomycosis of toenails of both feet; Venous yjubmjkblrkga81/23/2025amboo flowsheet [facility] [address] [facility] [address] [place] [phone] Tip Morillo DPM 03/20/20258201Rsmvrf29/16/2025 1:30 PM EDTOffice Visit [facility] [address] [facility] [address] [place] [phone] Aggie Gallardo, SKOOG OPERATOR-LIFE SCIENCE TECHNICAL OFFICER Bipolar affective disorder, currently depressed, moderate (HCC); Insomnia, unspecified type03/13/2025Refill [facility] [address] [facility] [address] [place] [address] Aggie Gallardo, SKOOG OPERATOR-LIFE SCIENCE TECHNICAL OFFICER Insomnia, unspecified type5Bamboo flowsheet [facility] [address] [facility] [address] [place] [address] Aggie Gallardo, SKOOG OPERATOR-LIFE SCIENCE TECHNICAL OFFICER 03/13/20252683Gchjzt84/13/2025Orders Only [facility] [address] [facility] [address] [place] [phone] Unallocated, [facility] MD Tarun 03/10/2025bstract [facility] [address] [facility] [address] [place] [address] Jer Rizo MD 03/06/2025[facility] [address] [place] [address] Erin Tariq, PA Type 2 diabetes mellitus with other specified complication, without long-term current use of insulin (HCC)02/19/2025 11:10 AM EDTAncillary Procedure [facility] Orth[facility] [address] [place] [phone] 02/19/2025 11:00 AM EDTOffice Visit [facility] Orthopa[facility]ics [facility] [place] [phone] Sunny Cabrera, PA Acute pain of right knee (Primary Dx); Arthritis of right knee; Chondromalacia, patella, right02/19/2025Refill [facility] [address] [facility] [address] [place] [phone] Aggie Gallardo, SKOOG OPERATOR-LIFE SCIENCE TECHNICAL OFFICER Bipolar affective disorder, currently depressed, moderate ([facility])02/19/2025amboo flowsheet [facility] Orthopa[facility] [address] [facility] [place] [phone] Sunny Cabrera, PA 02/19/20256780Btpsdy15/23/2025bstract [facility] [address] [facility] [address] [place] [address] Jer Rizo MD 02/06/2025Refill [facility] [address] [facility] [address] [place] [phone] Latoya Fried LPN Bipolar affective disorder, currently depressed, moderate (HCC)01/31/2025Patient Outreach [facility] [address] [place] [address] Madyson Figueroa RN 01/28/2025Refill [facility] [address] [facility] [address] [place] [address] Jer Rizo MD 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)neuropathy (HCC) 01/27/2025Refill [facility] [address] [facility] [address] [place] [address] Jer Rizo MD Type 2 diabetes mellitus with autonomic neuropathy, unspecified whether snf insulin use (HCC)01/20/2025Refill [facility] [address] [facility] [address] [place] [address] Latoya Fried LPN Mixed bipolar affective disorder, moderate (HCC)01/11/2025Refill [facility] [address] [facility] [address] [place] [address] Jer Rizo MD Cervical vylxsmtwpgq09/07/2025bstract [facility] [address] [facility] [address] [place] [phone] Jer Rizo MD 01/02/2025Refill [facility] [address] [facility] [address] [place] [phone] Erin Tariq PA Bipolar affective disorder, currently depressed, moderate ([facility])01/01/2025Patient Outreach [facility] [address] [place] [phone] Madyson Figueroa RN 12/30/2024bstract [facility] [address] [facility] [address] [place] [phone] Jer Rizo MD from Last 3 Months Immunizations ImmunizationAdministration DatesNext DueInfluenza, Injectable, MDCK, preservative free03/12/2019Influenza, injectable, MDCK, preservative free, rkollptmzkdr21/16/2023,03/31/2022,03/10/2020,04/06/2018Influenza, injectable, oyeycevqnsia13/27/2021Influenza, injectable, quadrivalent, preservative free 04/19/2016Influenza, seasonal, injectable, preservative free02/21/2024Influenza, seasonal, intradermal, preservative free02/21/2017,02/04/2015,03/25/2008PPD Test 06/15/2022,3Pneumococcal Conjugate PCV 3Pneumococcal Polysaccharide SZGT7055RSV, recombinant, protein subunit RSVpreF, adjuvant reconstitu, 120mcg/0.5mL, PF (Arexvy)04/13/2023Tdap12/06/2023 Family History Medical HistoryRelationNameCommentsCancerFatherDepressionFatherHeart disease FatherHyperlipidemiaFatherIrritable bowel syndromeFatherMental illnessFather CancerMotherCrohn's diseaseMotherHypertensionMotherLung cancerSisterRelationName StatusCommentsFatherDeceasedMotherDeceasedSister Social History Tobacco UseTypesPacks/DayYears UsedDateSmoking Tobacco: NeverSmokeless Tobacco: Never Tobacco Cessation:Counseling Given: Yes Alcohol UseStandard Drinks/WeekCommentsNot Currently0 (1 standard drink = 0.6 oz pure alcohol)Caffeine intake: 2 cups per day coffee, avoZ8859 Health Literacy AnswerDate RecordedHow often do you need to have someone help you when you read instructions, pamphlets, or other written material from your doctor or pharmacy? Gghnhthkj73/08/2024Social Connection and Isolation PanelAnswerDate RecordedIn a typical week, how many times do you talk on the phone with family, friends, or neighbors?Once a week12/04/2023Frequency of Social Gatherings with Friends and FamilyNot on file12/04/2023ttends Hinduism ServicesNot on file12/04/2023o you belong to any clubs or organizations such as jain groups, unions, fraternal or athletic groups, or school groups?No12/04/2023How often do you attend meetings of the clubs or organizations you belong to?Never12/04/2023re you , , , , never , or living with a partner? 12/04/2023UDIT-CAnswerDate RecordedQ1: How often do you have a drink containing alcohol?Patient qeusgsys95/08/2024Q2: How many drinks containing alcohol do you have on a typical day when you are drinking?Patient does not drink12/04/2023Q3: How often do you have six or more drinks on one occasion?Never12/04/2023Overall Financial Resource Strain (CARDIA)AnswerDate RecordedHow hard is it for you to pay for the very basics like food, housing, medical care, and heating?Hard 12/04/2023HQ-2AnswerDate RecordedPatient Health Questionnaire-2 Score2 12/17/2024[facility] Occupational Health - Occupational Stress QuestionnaireAnswerDate RecordedDo you feel stress - tense, restless, nervous, or anxious, or unable to sleep at night because yourmind is troubled all the time - these days?To some npvfin8012/04/2023Exercise Vital SignAnswerDate Recorded On average, how many [...] homeless or living in a jail (including now)?No12/04/2023EducationAnswerDate RecordedWhat is the highest level of school you have completed or the highest degree you have received?High school rvtekdsw52/17/2024CommentsUnknown Sex and Gender InformationValueDate RecordedSex Assigned at BirthFemale 12/27/2022 1:17 PM EDTLegal TvqSfqzmt92/15/2023 6:56 PM EDTGender IdentityFemale 12/27/2022 1:17 PM EDTSexual OrientationNot on file Last Filed Vital Signs Vital SignReadingTime TakenCommentsBlood Uodpwxwe523/8403/13/2025 1:34 PM EDT Modlc724103/13/2025 1:34 PM BWELtslqzuvigm85.4 ??C (99.3 ??F)02/21/2024 1:02 PM EDTRespiratory Zzyz6004 1:55 PM EDTOxygen Rzmqbqwpnj75%03/13/2025 1:34 PM EDTInhaled Oxygen Concentration--Andkoq827 kg (264 lb)03/20/2025 1:55 PM EDT Dsssbd718.9 cm (4' 11 )03/20/2025 1:55 PM EDTBody Mass Index53.321 1:55 PM EDT Plan of Treatment DateTypeDepartmentCare Team (Latest Contact Info)Tabcwuslzuq58/10/2025 1:00 PM ESTSocial Work [facility] [address] [place] [address] Braeden Dunham LPC 04/30/2025 1:00 PM ESTOffice Visit [facility] [address] [place] [address] Aggie Gallardo, SKOOG OPERATOR-LIFE SCIENCE TECHNICAL OFFICER [address] [place] [address] 06/12/2025 2:30 PM ESTOffice Visit [facility] [address] [place] [phone] Tip Morillo, DPM [address] [address] Health MaintenanceDue DateLast DoneCommentsCT Evssnotfeutz1961FIT-DNA 1961FIT1961FOBT1961 5463Uplvissxwaxly1961MMR Vaccines (1 of 1 - Standard series)1962Hepatitis A Vaccines (1 of 2 - Risk 2-dose series) 1980Pap Smear1982Cervical Cancer Hbmvsajff50/04/1991HPV/Cotest 1991Hepatitis B Vaccines (1 of 3 - Risk 3-dose series)2021 DTaP/Tdap/Td Vaccines (2 - Td or Tdap)/iabetes: Urine Protein Zqtqzbuqf14, 03/24/2021, 11/20/2019, Additional history jmybxbEyndzbfvu61, 09/14/2021, 09/17/2018, Additional history existsCOVID-19 Vaccine ( season)/, 10/30/2020, 10/02/2020Influenza Vaccine (#1)/, 04/13/2023, 03/31/2022, Additional history existsDiabetes: Hemoglobin A1C03/19/2025 12/17/2024, 08/14/2024, 03/27/2024, Additional history existsDiabetes: Retinopathy Zmopvtnpa58/06/2023, 11/28/2023, 11/28/2023, Additional history existsMedicare Annual Wellness (AWV), 12/06/2023, 03/22/2023, Additional history gapiemWyqrxdiczoa31, 03/07/2025, 03/07/2025, Additional history existsColorectal Cancer Screening 03/10/2035Pneumococcal Vaccine: Pediatrics (0 to 5 Years) and At-Risk Patients (6 to 64 Years)Whcqrdyji22/16/2023, 02/21/2017HIB VaccinesAged OutNo longer eligible based on [...] on patient's age to complete this topic Goals GoalPatient Goal TypeAssociated ProblemsRecent ProgressPatient-Stated?Author Help patient manage antidepressant medication Care PlanPatient on antidepressant monitoring Francia Tirado MA Procedures Procedure NamePriorityDate/TimeAssociated DiagnosisCommentsCOLONOSCOPY AWLJZEWGZDTmpdpiz04/13/2025 8:00 AM EDTPR ARTHROCENTESIS ASPIR&/INJ MAJOR JT/BURSA W/O ULUwjkdct30/24/2025 11:31 AM EDT Arthritis of right knee Chondromalacia, patella, right XR KNEE 1-2 VIEWS YAGRNPgdtukw05/24/2025 11:06 AM EDT Acute pain of right knee POCT GLYCATED HEMOGLOBIN, NMDTZEgyaqxz38/22/2025 10:52 AM EDT Type 2 diabetes mellitus with other specified complication, without long-term current use of insulin (HCC) BI MAMMOGRAM SCREENING TOMOSYNTHESIS YINEEVFFBUojtomh76/20/2023 2:51 PM EST Encounter for screening mammogram for malignant neoplasm of breast MICROALBUMIN / CREATININE URINE QJKLEAtikyvv67/26/2023 1:40 PM EDT Type 2 diabetes mellitus with other specified complication, without long-term current use of insulin (HCC) DIABETIC RETINOPATHY SCREENING - OU - BOTH QHASBsdartn35/31/2023 from Last 3 Months or Most Recently Relevant to Health Maintenance Results * COLONOSCOPY DIAGNOSTIC (03/10/2025 8:00 AM EDT)Anatomical RegionLaterality ModalityRadiographic Imaging Narrative Authorizing ProviderResult TypeResult StatusNoms Provider Unallocated MDIMG XR PROCEDURESFinal Result * NV ARTHROCENTESIS ASPIR&/INJ MAJOR JT/BURSA W/O US (02/19/2025 [...] discussed. Consent was given by the patient. Authorizing ProviderResult TypeResult Cheikh Cabrera PAIN CLINIC/BEDSIDE ORDERABLESFinal Result * XR knee 1 or 2 views right (02/19/2025 11:06 AM EDT)Anatomical Region LateralityModalityLower Extremities, KneeRightRadiographic ImagingSpecimen (Source)Anatomical Location / LateralityCollection Method / VolumeCollection TimeReceived Time Narrative 02/19/2025 12:16 PM EDT Imaging Result: AP and lateral right knee No acute fracture or dislocation Narrowing to medial and lateral weight bearing surfaces with subchondral sclerosis/ flattening and osteophytes of articular surface Lateral tracking patella with advance patella femoral arthritis, mild effusion Impression: Moderate to severe tricompartmental arthritis. Authorizing ProviderResult TypeResult Cheikh Cabrera PAIMG XR PROCEDURES Final Result * (ABNORMAL) POCT Glycated hemoglobin, total (12/17/2024 10:52 AM EDT)Component ValueRef RangeTest MethodAnalysis TimePerformed AtPathologist Signature Hemoglobin A1C6.5Specimen (Source)Anatomical Location / LateralityCollection Method / VolumeCollection TimeReceived OnmlKzisd08/22/2025 10:52 AM EDT Narrative Authorizing ProviderResult TypeResult StatusErin Tariq [facility] TEST ENTER/EDIT ORDERABLESFinal Result * Bilateral screening mammogram with tomosynthesis (05/17/2023 2:51 PM EST) Anatomical RegionLateralityModalityBreastBilateralMammographySpecimen (Source) Anatomical Location / LateralityCollection Method / VolumeCollection Time Received Time05/30/2023 9:56 AM EST Impressions 05/30/2023 12:47 PM EST BIRADS 2 - Benign Follow-up: ?? Routine Screening Mamm ??. Board Certified Radiologists. ??Accredited by the ACR and FDA. MAMMOGRAPHY IS VERY IMPORTANT TO YOUR HEALTH. ??THE [place] [employer] GUIDELINES RECOMMEND THAT WOMEN 40 YEARS OF AGE AND OLDER SHOULD HAVE A MAMMOGRAM EVERY YEAR. A REMINDER LETTER WILL BE SENT AT THE APPROPRIATE TIME. ??THIS FACILITY UTILIZES A REMINDER SYSTEM TO ENSURE ALL PATIENTS RECEIVE REMINDER NOTIFICATIONS AT THE APPROPRIATE TIME BASED ON THE RECOMMENDATIONS OF THIS EXAM. THIS INCLUDES REMINDERS FOR ROUTINE SCREENING MAMMOGRAMS, DIAGNOSTIC MAMMOGRAMSIN WHICH THE PATIENT IS ASKED TO RETURN FOR ADDITIONAL VIEWS, OR OTHER BREAST IMAGING INTERVENTIONSWHEN APPROPRIATE. THE PATIENT WILL BE PLACED IN THE APPROPRIATE REMINDER SYSTEM INCLUDING A REMINDER AT THE APPROPRIATE TIME FOR ANY PENDING ADDITIONAL VIEWS. TRANSCRIBED BY: ? ELECTRONICALLY SIGNED BY: Mayank Zamora MD Narrative 05/30/2023 12:47 PM EST EXAMINATION: BI MAMMOGRAM SCREENING TOMOSYNTHESIS BILATERAL CLINICAL HISTORY: screening COMPARISON: September 17, 2018. RESULT: Digital mammography and 3D tomosynthesis of bilateral breasts was performed. The breasts are almost entirely fatty. Overall appearance is stable. ??Typically benign calcifications. There is no suspicious mass, asymmetry, architectural distortion, or calcification. ??Left central breast biopsy material. Procedure Note Mayank [...] IS VERY IMPORTANT TO YOUR HEALTH. THE [place] [employer] GUIDELINES RECOMMEND THAT WOMEN 40 [...] BY: ELECTRONICALLY SIGNED BY: Mayank Zamora MD Authorizing ProviderResult TypeResult StatusErin Tariq [facility] BI PROCEDURES Final Result * Microalbumin / creatinine, urine ratio (03/23/2023 1:40 PM EDT)ComponentValue Ref RangeTest MethodAnalysis TimePerformed AtPathologist SignatureCREATININE, RANDOM LAPHH0550 - 275 mg/dLQUESTALBUMIN, URINE<0.2See Note: mg/dLQUEST Comment: Reference Range: Reference Range Not established ALBUMIN/CREATININE RATIO, RANDOM URINENOTE<30 mcg/mg creatQUESTComment: NOTE: The urine albumin value is less than 0.2 mg/dL therefore we are unable to calculate excretion and/or creatinine ratio. The ADA defines abnormalities in albumin excretion as follows: Albuminuria Category ?Result (mcg/mg creatinine) Normal to Mildly increased <30 Moderately increased ? 30-299 Severely increased > OR = 300 The ADA recommends that at least two of three specimens collected within a 3-6 month period be abnormal before considering a patient to be within a diagnostic category. Specimen (Source)Anatomical Location / LateralityCollection Method / Volume Collection TimeReceived TimeUrineUrine specimen obtained by clean catch procedure / Wbxmyvd6403/23/2023 1:40 PM EDT1 1:40 PM EDT Narrative Resulting Agency Comment Performing Organization Information ?Site ID: [id number] ?Name: [facility] ?Address: [address] [place] [address], [address] [place] [id number] ?Director: Jw Camarena MD Authorizing ProviderResult TypeResult StatusErin Vail Hemmer PALAB URINE ORDERABLESFinal ResultPerforming OrganizationAddressCity/State/ZIP CodePhone Number QUEST * Diabetic Retinopathy Screening - OU - Both Eyes (01/26/2023)ComponentValueRef RangeTest MethodAnalysis TimePerformed AtPathologist SignatureRESULTSndr Anatomical RegionLateralityModalityHeadOtherSpecimen (Source)Anatomical Location / LateralityCollection Method / VolumeCollection TimeReceived Time 01/26/2023 Narrative Authorizing ProviderResult TypeResult StatusJer Rizo MDOPHTH PHOTOGRAPHY Final Result from Last 3 Months or Most Recently Relevant to Health Maintenance Additional Health Concerns Active ProblemsNoted DateDiagnosed DatePatient on antidepressant monitoring plan 10/31/2023 Insurance Care Teams Team MemberRelationshipSpecialtyStart DateEnd Jer Rizo MD [address] [facility] 110 [place] [address] PCP - GeneralInternal Medicine01/03/23 Aggie Gallardo, SKOOG OPERATOR-LIFE SCIENCE TECHNICAL OFFICER 112 [facility] 160 [place] [address] PCP - Sari [place]11/26/24 Aggie Gallardo SKOOG OPERATOR-LIFE SCIENCE TECHNICAL OFFICER [address] [address] Nurse PractitionerPsychiatry1 Braeden Dunham LPC TherapistBehavioral Health11/25/24
--- OUTSIDE RECORDS SUMMARY | 2025-03-31 13:59 | XMS_ITS | Encounter Summary ---
Author Organization [facility] Address [address] [facility] [address] Care Team Providers Care Film Process Operator Name Role Phone Jer Rizo MD Primary Care Provider [phone] Aggie Galalrdo LADLE PATCHER-OPERATIONAL INTELLIGENCE ANALYST Unavailable Braeden Dunham [facility] Unavailable Unavailable Aggie Gallardo LADLE PATCHER-OPERATIONAL INTELLIGENCE ANALYST Unavailable Encounter Details DateTypeDepartmentCare Team (Latest Contact Info)Xibyauzymkl38/23/2025Travel Social History Tobacco UseTypesPacks/DayYears UsedDateSmoking Tobacco: NeverSmokeless Tobacco: NeverAlcohol UseStandard Drinks/WeekCommentsNot Currently0 (1 standard drink = 0.6 oz pure alcohol)Caffeine intake: 2 cups per day coffee, [id number] Health LiteracyAnswerDate RecordedHow often do you need to have someone help you when you read instructions, pamphlets, or other written material from your doctor or pharmacy?Jebigynsg20/08/2024Social Connection and Isolation PanelAnswerDate RecordedIn a typical week, how many times do you talk on the phone with family, friends, or neighbors?Once a week12/04/2023Frequency of Social Gatherings with Friends and FamilyNot on file12/04/2023ttends Taoist ServicesNot on file 4Do you belong to any clubs or organizations such as jainism groups, unions, fraternal or athletic groups, or school groups?No12/04/2023How often do you attend meetings of the clubs or organizations you belong to?Never12/04/2023 Are you , , , , never , or living with a partner?Omgnuitb74/08/2024UDIT-CAnswerDate RecordedQ1: How often do you have a drink containing alcohol?Patient eleqbrop41/08/2024Q2: How many drinks containing alcohol do you have on a typical day when you are drinking?Patient does not drink12/04/2023Q3: How often do you have six or more drinks on one occasion?Never12/04/2023Overall Financial Resource Strain (CARDIA)AnswerDate RecordedHow hard is it for you to pay for the very basics like food, housing, medical care, and heating?Hard12/04/2023HQ-2AnswerDate RecordedPatient Health Questionnaire-2 Zyqaq615[facility] [place] of Occupational Health - Occupational Stress QuestionnaireAnswerDate RecordedDo you feel stress - tense, restless, nervous, or anxious, or unable to sleep at night because yourmind is troubled all the time - these days?To some benzce6112/04/2023Exercise Vital Sign AnswerDate RecordedOn average, how many days per week do you engage in moderate to strenuous exercise (like a brisk walk)?0 days12/04/2023On average, how many minutes do you engage in exercise at this level?0 min12/04/2023Hunger Vital Sign AnswerDate RecordedWithin the past 12 months, you worried [...] homeless or living in a assisted (including now)?No12/04/2023 EducationAnswerDate RecordedWhat is the highest level of school you have completed or the highest degree you have received?High school wnubfeoa63/17/2024 CommentsUnknownSex and Gender InformationValueDate RecordedSex Assigned at NbjdpGmddod96/01/2023 1:17 PM EDTLegal EwjVyrzha28/15/2023 6:56 PM EDTGender HktjfcaqQrjyob77/01/2023 1:17 PM EDTSexual OrientationNot on filedocumented as of this encounter Plan of Treatment DateTypeDepartmentCare Team (Latest Contact Info)Cgrlgjxohxb62/10/2025 1:00 PM ESTSocial Work [facility] [address] [place] [phone] Braeden Dunham LPC 04/30/2025 1:00 PM ESTOffice Visit [facility] [address] [place] [address] Aggie Gallardo, LADLE PATCHER-OPERATIONAL INTELLIGENCE ANALYST [address] [place] [address] 06/12/2025 2:30 PM ESTOffice Visit [facility] [address] [place] [address] Tip Morillo DPM [address] [facility] [address] [place] [address] documented as of this encounter Goals GoalPatient Goal TypeAssociated ProblemsRecent ProgressPatient-Stated?Author Help patient manage antidepressant medication Care PlanPatient on antidepressant monitoring planFrancia Gama, MAdocumented as of this encounter Visit Diagnoses Not on filedocumented in this encounter Additional Health Concerns Active ProblemsNoted DateDiagnosed DatePatient on antidepressant monitoring plan 06/04/2024AssessmentNoted TimePHQ-9 Depression Total Score: 9012/17/2024 10:00 AM EDTdocumented as of this encounter Care Teams Team MemberRelationshipSpecialtyStart DateEnd Date Jer Rizo MD [address] [email or web address] [address] [place] [address] PCP - GeneralInternal Medicine01/03/23 Aggie Gallardo, LADLE PATCHER-OPERATIONAL INTELLIGENCE ANALYST [address] [facility] [[email or web address] [address] [place] [address] PCP - Sari [place]11/26/24 Aggie Gallardo, LADLE PATCHER-OPERATIONAL INTELLIGENCE ANALYST [address] [facility] [[email or web address] 160 [place] [address] Nurse PractitionerPsychiatry1 Braeden Dunham LPC TherapistMiddlesex [facility]11/25/24documented as of this encounter
--- OUTSIDE RECORDS SUMMARY | 2025-03-31 13:59 | XMS_ITS | Clinical Summary ---
Author Organization [facility] Address [address] [place] [address] Phone Care Team Providers Care Residential Care Officer Name Role Phone Unavailable Primary Care Provider Unavailabl e Social History Tobacco UseTypesPacks/DayYears UsedDateSmoking Tobacco: Never Assessed CommentsUnknownSex and Gender InformationValueDate RecordedSex Assigned at Not on fileLegal SafNzbzxu14/26/2022 5:40 AM ESTGender IdentityNot on fileSexual OrientationNot on file Plan of Treatment Health MaintenanceDue DateLast DoneCommentsCT Zsqcxnfvmack1961olonoscopy 1961olorectal Cancer Ezmgdtqpn1961FIT-DNA (Cologuard)1961FIT 1961HIV Efciekkle1961ipid Panel1961 3578Qqvxiflvlmuac1961 Welcome to Medicare Visit1961MMR Vaccines (1 of 1 - Standard series) 1962Hepatitis C Hvusjklad33/04/1979Cervical Cancer Cmgxdhjyv21/04/1982 HPV/Clriwh0903/01/1982Pap Smear1982DTaP/Tdap/Td Vaccines (1 - Tdap) 03/01/19833955Vqvypzdud28/04/2001Pneumococcal Vaccine (1 of 1 - PCV)2011Zoster Vaccines (1 of 2)2011Influenza Vaccine (#1)5COVID-19 Vaccine (1 - season)2025RSV High Risk: (Elderly (60+) or Population) (1 - 1-dose 75+ series)2036HIB VaccinesAged OutNo longer eligible based on patient's age to complete this topicHPV VaccinesAged OutNo longer eligible based on patient's age to complete this topicHepatitis A VaccinesAged OutNo longer eligible based on patient's age to complete this topicHepatitis B VaccinesAged OutNo longer eligible based on patient's age to complete this topicIPV Vaccines Aged OutNo longer eligible based on patient's age to complete this topic Meningococcal VaccineAged OutNo longer eligible based on patient's age to complete this topicRotavirus VaccinesAged OutNo longer eligible based on patient's age to complete this topic Insurance
--- OUTSIDE RECORDS SUMMARY | 2025-03-31 13:59 | XMS_ITS | Encounter Summary ---
Author Organization [facility] Address [address] [place] [address] Care Team Providers Care Operational Intelligence Officer Name Role Phone Jer Rizo MD Primary Care Provider [phone] Aggie Gallardo STERILIZATION SPECIALIST-AUTO CLUB SAFETY PROGRAM COORDINATOR Unavailable Braeden Dunham [facility] Unavailable Unavailable Aggie Gallardo STERILIZATION SPECIALIST-AUTO CLUB SAFETY PROGRAM COORDINATOR Unavailable Encounter Details DateTypeDepartmentCare Team (Latest Contact Info)Iaflgxzmkur74/23/2025amboo flowsheet [facility] [address] [facility] [address] [place] [address] Tip Morillo, DPM [address] [facility] 5 [place] [address] Social History Tobacco UseTypesPacks/DayYears UsedDateSmoking Tobacco: NeverSmokeless Tobacco: NeverAlcohol UseStandard Drinks/WeekCommentsNot Currently0 (1 standard drink = 0.6 oz pure alcohol)Caffeine intake: 2 cups per day coffee, [id number] Health LiteracyAnswerDate RecordedHow often do you need to have someone help you when you read instructions, pamphlets, or other written material from your doctor or pharmacy?Xffslfgdk85/08/2024Social Connection and Isolation PanelAnswerDate RecordedIn a typical week, how many times do you talk on the phone with family, friends, or neighbors?Once a week12/04/2023Frequency of Social Gatherings with Friends and FamilyNot on file12/04/2023ttends Nondenominational ServicesNot on file 12/04/2023o you belong to any clubs or organizations such as oriental orthodox groups, unions, fraternal or athletic groups, or school groups?No12/04/2023How often do you attend meetings of the clubs or organizations you belong to?Never12/04/2023 Are you , , , , never , or living with a partner?Mcbyzxmi13/08/2024UDIT-CAnswerDate RecordedQ1: How often do you have a drink containing alcohol?Patient aeeqjkmp58/08/2024Q2: How many drinks containing alcohol do you have on a typical day when you are drinking?Patient does not drink12/04/2023Q3: How often do you have six or more drinks on one occasion?Never12/04/2023Overall Financial Resource Strain (CARDIA)AnswerDate RecordedHow hard is it for you to pay for the very basics like food, housing, medical care, and heating?Hard12/04/2023HQ-2AnswerDate RecordedPatient Health Questionnaire-2 Vxska135Fin[facility] [place] of Occupational Health - Occupational Stress QuestionnaireAnswerDate RecordedDo you feel stress - tense, restless, nervous, or anxious, or unable to sleep at night because yourmind is troubled all the time - these days?To some wscljv1412/04/2023Exercise Vital Sign AnswerDate RecordedOn average, how many [...] homeless or living in a longterm (including now)?No12/04/2023 EducationAnswerDate RecordedWhat is the highest level of school you have completed or the highest degree you have received?High school tydwyujm28/17/2024 CommentsUnknownSex and Gender InformationValueDate RecordedSex Assigned at GrvxkIsufxq94/01/2023 1:17 PM EDTLegal QjwXdpemv93/15/2023 6:56 PM EDTGender JwolrrxhAveftl52/01/2023 1:17 PM EDTSexual OrientationNot on filedocumented as of this encounter Plan of Treatment DateTypeDepartmentCare Team (Latest Contact Info)Wxcdntgarrs70/10/2025 1:00 PM ESTSocial Work [facility] [address] [place] [address] Braeden Dunham LPC 04/30/2025 1:00 PM ESTOffice Visit [facility] [address] [facility] 160 [place] [address] Aggie Gallardo, STERILIZATION SPECIALIST-AUTO CLUB SAFETY PROGRAM COORDINATOR [address] [place] [address] 06/12/2025 2:30 PM ESTOffice Visit [facility] [address] [place] [address] Tip Morillo DPYared [address] [facility] [address] [place] [address] documented as of this encounter Goals GoalPatient Goal TypeAssociated ProblemsRecent ProgressPatient-Stated?Author Help patient manage antidepressant medication Care PlanPatient on antidepressant monitoring planNoNFrancia lopez, MAdocumented as of this encounter Visit Diagnoses Not on filedocumented in this encounter Additional Health Concerns Active ProblemsNoted DateDiagnosed DatePatient on antidepressant monitoring plan 4AssessmentNoted TimePHQ-9 Depression Total Score: 9012/17/2024 10:00 AM EDTdocumented as of this encounter Care Teams Team MemberRelationshipSpecialtyStart DateEnd Jer Rizo MD [address] [place] [address] PCP - GeneralInternal Medicine01/03/23 Aggie Gallardo, STERILIZATION SPECIALIST-AUTO CLUB SAFETY PROGRAM COORDINATOR [address] [facility] 160 [place] [address] PCP - Sari [place]11/26/24 Aggie Galladro, STERILIZATION SPECIALIST-AUTO CLUB SAFETY PROGRAM COORDINATOR [address] [facility] 160 [place] [address] Nurse PractitionerPsychiatry1 Braeden Dunham LPC TherapistBehavioral Health11/25/24documented as of this encounter
--- NOTE | 2025-03-31 14:47 | PM.CN ---
Consult Note: HPI Data of Consult Patient: known to practice within the last 3 years Consult date: 03/31/25 Requesting Physician: Divya Alfaro MD Primary Care Provider: YVONNE DANIEL Consult Narrative Reason for consult: right knee pain Narrative: 65yof who presents for right knee injection. continues to have right knee pain. cc:: CC: Divya Alfaro MD Review of Systems ROS Status of ROS 10 or more systems reviewed and unremarkable except as noted in history and below PFSH PFSH Medical History Endometriosis ?N80.9 - Endometriosis, unspecified (ICD-10) Osteoporosis ?M81.0 - Age-related osteoporosis without current pathological fracture (ICD-10) Asthma ?J45.909 - Unspecified asthma, uncomplicated (ICD-10) Chronic respiratory failure with hypoxia, on home O2 therapy ?J96.11 - Chronic respiratory failure with hypoxia (ICD-10) ?Z99.81 - Dependence on supplemental oxygen (ICD-10) Hiatal hernia ?K44.9 - Diaphragmatic hernia without obstruction or gangrene (ICD-10) Degenerative disc disease, lumbar ?M51.36 - Other intervertebral disc degeneration, lumbar region (ICD-10) Bipolar disorder ?F31.9 - Bipolar disorder, unspecified (ICD-10) Fibromyalgia ?M79.7 - Fibromyalgia (ICD-10) Hypothyroidism ?E03.9 - Hypothyroidism, unspecified (ICD-10) Rheumatoid arthritis ?M06.9 - Rheumatoid arthritis, unspecified (ICD-10) DM2 (diabetes mellitus, type 2) ?E11.9 - Type 2 diabetes mellitus without complications (ICD-10) Mixed hyperlipidemia ?E78.2 - Mixed hyperlipidemia (ICD-10) Essential hypertension ?I10 - Essential (primary) hypertension (ICD-10) Obesity ?E66.9 - Obesity, unspecified (ICD-10) COPD (chronic obstructive pulmonary disease) ?J44.9 - Chronic obstructive pulmonary disease, unspecified (ICD-10) Stable angina pectoris ?I20.89 - Other forms of angina pectoris (ICD-10) Surgical History H/O laparoscopy ?Z98.890 - Other specified postprocedural states (ICD-10) H/O cataract extraction ?Z98.49 - Cataract extraction status, unspecified eye (ICD-10) Hx laparoscopic cholecystectomy ?Z90.49 - Acquired absence of other specified parts of digestive tract (ICD-10) H/O cardiac catheterization ?Z98.890 - Other specified postprocedural states (ICD-10) Family History Other Breast cancer CAD (coronary artery disease) Family history of cancer Family history of diabetes mellitus Family history of hypertension Family history of myocardial infarction Social History Within the past year, how often did you have a drink containing alcohol: never Score interpretation: A score less than 3 is consistent with normal alcohol consumption. Smoking status: Never smoker Previous occupational history: retired/disability Highest level of school completed/degree received: high school graduate Little interest or pleasure in doing things: not at all Feeling down, depressed, or hopeless: not at all Gender Identity: female Meds Home Medications and Allergies Home Medications ?Medication ?Instructions ?Recorded ?Confirmed ?Type budesonide 160 mcg-glycopyr 9 2 inh inhalation BID 06/27/23 09/16/24 History mcg-formot 4.8 mcg/actuation HFA inhaler (Breztri Aerosphere) cariprazine 3 mg capsule (Vraylar) 3 mg PO QDAY 06/27/23 09/16/24 History dapagliflozin propanediol 10 mg 10 mg PO QAM 06/27/23 09/16/24 History tablet (Farxiga) diclofenac sodium 75 mg 75 mg PO Q12H 06/27/23 09/16/24 History tablet,delayed release furosemide 40 mg tablet 40 mg PO BID 06/27/23 09/16/24 History gabapentin 600 mg tablet 600 mg PO QAM 06/27/23 09/16/24 History levothyroxine 112 mcg tablet 112 mcg PO DAILY 06/27/23 09/16/24 History rosuvastatin 5 mg tablet 5 mg PO .qhs 06/27/23 09/16/24 History metoprolol tartrate 25 mg tablet 25 mg PO BID 06/28/23 09/16/24 History duloxetine 30 mg capsule,delayed 30 mg PO DAILY 09/16/24 09/16/24 History release (Cymbalta) semaglutide 0.25 mg or 0.5 mg (2 0.25 mg subcut QWEEK 09/16/24 09/16/24 History mg/3 mL) subcutaneous pen injector (Ozempic) tramadol 50 mg tablet 50 mg PO TID PRN pain #90 tabs 10/10/24 Rx tramadol 50 mg tablet 50 mg PO TID PRN pain #90 tabs 12/12/24 Rx tramadol 50 mg tablet 50 mg PO TID PRN pain #90 tabs 03/04/25 Rx Allergies Allergy/AdvReac Type Severity Reaction Status Date / Time ibandronate sodium (From Allergy Severe Hives Verified 09/16/24 11:31 Boniva) Sulfa (Sulfonamide Allergy Severe Anaphylaxis Verified 09/16/24 11:31 Antibiotics) Penicillins Allergy Intermediate Anaphylaxis Verified 09/16/24 11:31 Exam Narrative Exam Narrative: Psych-alert and oriented x 3.? Attentive and appropriate, constitutionally normal, displays normal mood and affect per situation.? There are no obvious deficits in memory, reasoning, or intellect. Extremities-lower extremities are warm with minimal edema and palpable pulses. Knee-examination of the right knee reveals tenderness to palpation over the superior, inferior, lateral, and medial aspect of the knee.? Some swelling is noted without erythema. Pain is elicited with flexion and extension of the knee both actively and passively.? Some grinding is noted with these motions.? There is no notable ligamental laxity or instability.? Coordination remains intact.? Gait remains antalgic. Assessment and Plan Assessment and Plan (1) Osteoarthritis of right knee: Qualifiers: Osteoarthritis type: primary Qualified Code(s): M17.11 - Unilateral primary osteoarthritis, right knee Plan 65yof who presents for right knee injection. continues to have right knee pain, so will proceed with injection. procedure: right knee injection medications: bupivacaine 0.25% 4cc, depomedrol 40mg I explained the details of the procedure to the patient including the risks, benefits and alternatives. We had an informed discussion and the patient verbalized understanding and signed the consent form. All questions were answered appropriately.? A time out was performed.? After obtaining a comfortable seated position, the right knee was prepped with alcohol x3. A syringe containing the above medication was attached to a 25 gauge, 1.5 inch needle under strict aseptic technique. The lateral tibial plateau was palpated.? The needle was then advanced through the subcutaneous tissue in a medial and superior direction towards the joint space.? The contents of the syringe were gently injected without any resistance. The needle was removed and pressure was applied to the injection site to decrease the incidence of ecchymosis and hematoma formation.? A sterile bandage was applied.
== END 2025-03-31 13:55 | disposition home or self-care (01) ==
LOC: PM 13:54
PROVIDERS: PCP Internal Medicine; Visit Provider Anesthesiology
DX: M17.11 Unilateral primary osteoarthritis, right knee (principal)
CPT/HCPCS: 20610; J7318